=== PATIENT | female | born 1940 | race Caucasian/White ===

== ENCOUNTER → 2018-02-11 08:41 | Outpatient (CLI) | payer MEDICARE, SELFPAY ==
[2018-02-11 09:52] LABS: Absolute Lymphocyte Count 1.46 X10^3/ul (0.83-4.51); Absolute Neutrophil Count 2.8 X10^3/uL (2.0-7.7); Basophil# 0.04 X10^3/uL; Basophil% 0.7 % (0-1); Eosinophil# 0.19 X10^3/uL; Eosinophils% 3.6 % (0-5); Hematocrit 36.9 % (37-47); Lymphocyte # 1.46 X10^3/ul (4.0); Lymphocyte % 27.3 % (19-41); Mean Corp Hgb Conc 32.5 g/gl (32-36); Mean Corpuscular Volume 89.1 fL (81-99); Mean Platelet Vol. 10.3 fl (6.2-12.0); Neutrophil # 2.81 X10^3/uL (2.7-7.7); Neutrophil % 52.7 % (47-70); POSITIVE COUNT NO; POSITIVE DIFFERENTIAL NO; POSITIVE MORPHOLOGY NO; Platelet Count 272 K/mm3 (150-450); RBC Distribution Width CV 13.2 % (11.6-14.6); RBC Distribution Width SD 42.2 fl (35.1-43.9); Red Blood Count 4.14 M/mm3 (4.2-5.4); White Blood Count 5.3 K/mm3 (4.4-11.0)
[2018-02-11 10:02] LABS: ALB/GLOB Ratio 0.6 RATIO (0.9-2.4); AST(SGOT) 18 U/L (15-37); Alanine Aminotransfer ALT/SGPT 21 U/L (13-56); Albumin, Serum 3.2 g/dL (3.2-5.0); Alkaline Phosphatase 89 U/L (45-117); Anion Gap 7 (5-15); BUN 16 mg/dL (7-18); BUN/Creat Ratio 11.6 RATIO (10-20); Calcium,Total 9.2 mg/dL (8.5-10.1); Chloride 103 mmol/L (98-107); Creatinine, Serum 1.38 mg/dL (0.55-1.02); EST Glomerular Filtration Rate 39 mL/min (>60); Est Glom Filt Rate - Afr Amer 48 mL/min (>60); Globulin 5.2 g/dL (2.2-4.2); Glucose 126 mg/dL (74-106); Potassium 4.2 mmol/L (3.5-5.1); Protein, Total 8.4 g/dL (6.4-8.2); Sodium Level 137 mmol/L (136-145)
== END ==
PROVIDERS: Family Provider Student in an Organized Health Care Education/Training Program; PCP Student in an Organized Health Care Education/Training Program; Visit Provider Internal Medicine Rheumatology
DX: L40.59 Other psoriatic arthropathy (principal); Z79.899 Other long term (current) drug therapy; M79.7 Fibromyalgia; L40.8 Other psoriasis; M35.00 Sjogren syndrome, unspecified; M15.9 Polyosteoarthritis, unspecified; M17.0 Bilateral primary osteoarthritis of knee; H35.363 Drusen (degenerative) of macula, bilateral; I12.9 Hypertensive chronic kidney disease with stage 1 through stage 4 chronic kidney disease, or unspecified chronic kidney disease; N18.9 Chronic kidney disease, unspecified
CPT/HCPCS: 36415; 80053; 85025

== ENCOUNTER → 2018-08-16 07:41 | Outpatient (CLI) | payer MEDICARE, SELFPAY ==
[2018-08-16 10:57] LABS: ALB/GLOB Ratio 0.7 RATIO (0.9-2.4); AST(SGOT) 24 U/L (15-37); Alanine Aminotransfer ALT/SGPT 24 U/L (13-56); Albumin, Serum 3.4 g/dL (3.2-5.0); Alkaline Phosphatase 102 U/L (45-117); Anion Gap 7 (5-15); BUN 17 mg/dL (7-18); BUN/Creat Ratio 13.9 RATIO (10-20); Chloride 103 mmol/L (98-107); Creatinine, Serum 1.22 mg/dL (0.55-1.02); EST Glomerular Filtration Rate 45 mL/min (>60); Est Glom Filt Rate - Afr Amer 55 mL/min (>60); Globulin 4.7 g/dL (2.2-4.2); Glucose 114 mg/dL (74-106); Potassium 4.1 mmol/L (3.5-5.1); Protein, Total 8.1 g/dL (6.4-8.2); Sodium Level 140 mmol/L (136-145)
[2018-08-16 12:45] LABS: Absolute Lymphocyte Count 1.26 X10^3/ul (0.83-4.51); Absolute Neutrophil Count 2.3 X10^3/uL (2.0-7.7); Basophil# 0.05 X10^3/uL; Basophil% 1.1 % (0-1); Eosinophil# 0.28 X10^3/uL; Eosinophils% 6.2 % (0-5); Hematocrit 40.1 % (37-47); Hemoglobin 12.7 g/dl (12.0-15.0); Lymphocyte # 1.26 X10^3/ul (4.0); Lymphocyte % 27.8 % (19-41); Mean Corp Hgb Conc 31.7 g/gl (32-36); Mean Corpuscular Hgb 29.1 pg (27.0-32.0); Mean Corpuscular Volume 91.8 fL (81-99); Mean Platelet Vol. 12.5 fl (6.2-12.0); Monocyte# 0.63 X10^3/uL; Monocyte% 13.9 % (0-10); Neutrophil % 50.6 % (47-70); Platelet Count 107 K/mm3 (150-450); RBC Distribution Width CV 13.5 % (11.6-14.6); RBC Distribution Width SD 44.9 fl (35.1-43.9); Red Blood Count 4.37 M/mm3 (4.2-5.4); White Blood Count 4.5 K/mm3 (4.4-11.0)
[2018-08-16 12:48] LABS: POSITIVE COUNT NO; POSITIVE DIFFERENTIAL NO; POSITIVE MORPHOLOGY NO
== END ==
PROVIDERS: Family Provider Student in an Organized Health Care Education/Training Program; PCP Student in an Organized Health Care Education/Training Program; Referring Provider Internal Medicine Rheumatology; Visit Provider Internal Medicine Rheumatology
DX: L40.59 Other psoriatic arthropathy (principal); M35.00 Sjogren syndrome, unspecified; M17.0 Bilateral primary osteoarthritis of knee; H35.363 Drusen (degenerative) of macula, bilateral; I12.9 Hypertensive chronic kidney disease with stage 1 through stage 4 chronic kidney disease, or unspecified chronic kidney disease; N18.9 Chronic kidney disease, unspecified; M79.7 Fibromyalgia
CPT/HCPCS: 36415; 80053; 85025

== ENCOUNTER → 2019-02-07 10:12 | Outpatient (CLI) | payer MEDICARE, SELFPAY ==
[2017-07-08 11:11] VITALS: BMI 30.9
[2019-02-07 12:27] LABS: Absolute Lymphocyte Count 1.18 X10^3/ul (0.83-4.51); Absolute Neutrophil Count 2.2 X10^3/uL (2.0-7.7); Basophil# 0.05 X10^3/uL; Basophil% 1.2 % (0-1); Eosinophil# 0.19 X10^3/uL; Eosinophils% 4.4 % (0-5); Hematocrit 40.3 % (37-47); Lymphocyte # 1.18 X10^3/ul (4.0); Lymphocyte % 27.3 % (19-41); Mean Corp Hgb Conc 32.3 g/gl (32-36); Mean Corpuscular Hgb 28.9 pg (27.0-32.0); Mean Corpuscular Volume 89.6 fL (81-99); Mean Platelet Vol. 11.6 fl (6.2-12.0); Monocyte# 0.64 X10^3/uL; Monocyte% 14.8 % (0-10); Neutrophil # 2.23 X10^3/uL (2.7-7.7); Neutrophil % 51.4 % (47-70); Platelet Count 153 K/mm3 (150-450); RBC Distribution Width CV 13.4 % (11.6-14.6); RBC Distribution Width SD 43.5 fl (35.1-43.9); White Blood Count 4.3 K/mm3 (4.4-11.0)
[2019-02-07 12:31] LABS: POSITIVE COUNT NO; POSITIVE DIFFERENTIAL NO; POSITIVE MORPHOLOGY NO
[2019-02-07 12:52] LABS: ALB/GLOB Ratio 0.8 RATIO (0.9-2.4); AST(SGOT) 24 U/L (15-37); Alanine Aminotransfer ALT/SGPT 24 U/L (13-56); Albumin, Serum 3.6 g/dL (3.2-5.0); Alkaline Phosphatase 104 U/L (45-117); Anion Gap 3 (5-15); BUN 17 mg/dL (7-18); BUN/Creat Ratio 13.9 RATIO (10-20); Calcium,Total 8.8 mg/dL (8.5-10.1); Chloride 107 mmol/L (98-107); Creatinine, Serum 1.22 mg/dL (0.55-1.02); EST Glomerular Filtration Rate 45 mL/min (>60); Est Glom Filt Rate - Afr Amer 55 mL/min (>60); Globulin 4.5 g/dL (2.2-4.2); Glucose 103 mg/dL (74-106); Potassium 3.8 mmol/L (3.5-5.1); Protein, Total 8.1 g/dL (6.4-8.2); Sodium Level 138 mmol/L (136-145)
== END ==
PROVIDERS: Family Provider Student in an Organized Health Care Education/Training Program; PCP Student in an Organized Health Care Education/Training Program; Referring Provider Internal Medicine Rheumatology; Visit Provider Internal Medicine Rheumatology
DX: L40.59 Other psoriatic arthropathy (principal); I12.9 Hypertensive chronic kidney disease with stage 1 through stage 4 chronic kidney disease, or unspecified chronic kidney disease; N18.9 Chronic kidney disease, unspecified; M35.00 Sjogren syndrome, unspecified; M79.7 Fibromyalgia; M17.0 Bilateral primary osteoarthritis of knee; H35.363 Drusen (degenerative) of macula, bilateral
CPT/HCPCS: 36415; 80053; 85025

== ENCOUNTER → 2019-07-25 09:49 | Outpatient (CLI) | payer MEDICARE, SELFPAY ==
[2017-07-08 11:11] VITALS: BMI 30.9
[2019-07-25 12:39] LABS: Absolute Lymphocyte Count 1.25 X10^3/uL (0.83-4.51); Absolute Neutrophil Count 2.3 X10^3/uL (2.0-7.7); Basophil# 0.05 X10^3/uL; Basophil% 1.2 % (0-1); Eosinophil# 0.15 X10^3/uL; Eosinophils% 3.6 % (0-5); Hematocrit 41.4 % (37-47); Hemoglobin 13.2 g/dL (12.0-15.0); Lymphocyte # 1.25 X10^3/ul (4.0); Lymphocyte % 29.9 % (19-41); Mean Corp Hgb Conc 31.9 g/dL (32-36); Mean Corpuscular Hgb 30.1 pg (27.0-32.0); Mean Corpuscular Volume 94.3 fL (81-99); Mean Platelet Vol. 11.5 fl (6.2-12.0); Monocyte# 0.42 X10^3/uL; NRBC Flagged by Analyzer 0 % (0-5); Neutrophil # 2.26 X10^3/uL (2.7-7.7); Neutrophil % 54.1 % (47-70); Platelet Count 143 K/mm3 (150-450); RBC Distribution Width CV 12.9 % (11.6-14.6); RBC Distribution Width SD 44.6 fl (35.1-43.9); Red Blood Count 4.39 M/mm3 (4.2-5.4); White Blood Count 4.2 K/mm3 (4.4-11.0)
[2019-07-25 12:46] LABS: ALB/GLOB Ratio 0.8 RATIO (0.9-2.4); AST(SGOT) 26 U/L (15-37); Alanine Aminotransfer ALT/SGPT 28 U/L (13-56); Albumin, Serum 3.5 g/dL (3.2-5.0); Alkaline Phosphatase 96 U/L (45-117); Anion Gap 6 (5-15); BUN 17 mg/dL (7-18); BUN/Creat Ratio 13.7 RATIO (10-20); Calcium,Total 8.8 mg/dL (8.5-10.1); Chloride 108 mmol/L (98-107); Creatinine, Serum 1.24 mg/dL (0.55-1.02); EST Glomerular Filtration Rate 44 mL/min (>60); Est Glom Filt Rate - Afr Amer 54 mL/min (>60); Globulin 4.6 g/dL (2.2-4.2); Glucose 96 mg/dL (74-106); Potassium 3.8 mmol/L (3.5-5.1); Protein, Total 8.1 g/dL (6.4-8.2); Sodium Level 141 mmol/L (136-145)
== END ==
PROVIDERS: Family Provider Student in an Organized Health Care Education/Training Program; PCP Student in an Organized Health Care Education/Training Program; Referring Provider Internal Medicine Rheumatology; Visit Provider Internal Medicine Rheumatology
DX: L40.59 Other psoriatic arthropathy (principal); I12.9 Hypertensive chronic kidney disease with stage 1 through stage 4 chronic kidney disease, or unspecified chronic kidney disease; N18.9 Chronic kidney disease, unspecified; M35.00 Sjogren syndrome, unspecified; M17.0 Bilateral primary osteoarthritis of knee; H35.363 Drusen (degenerative) of macula, bilateral; M79.7 Fibromyalgia
CPT/HCPCS: 36415; 80053; 85025

== ENCOUNTER → 2021-07-31 14:17 | Outpatient (CLI) | payer MEDICARE, SELFPAY ==
[2021-07-31 17:37] LABS: Absolute Lymphocyte Count 1.52 X10^3/uL (0.83-4.51); Absolute Neutrophil Count 3.2 X10^3/uL (2.0-7.7); Basophil# 0.07 X10^3/uL; Basophil% 1.3 % (0-1); Eosinophils% 3.6 % (0-5); Hematocrit 40.5 % (37-47); Hemoglobin 13.1 g/dL (12.0-15.0); Lymphocyte # 1.52 X10^3/ul (0.83-4.51); Lymphocyte % 27.2 % (19-41); Mean Corp Hgb Conc 32.3 g/dL (32-36); Mean Corpuscular Hgb 29.8 pg (27.0-32.0); Mean Corpuscular Volume 92.3 fL (81-99); Mean Platelet Vol. 10.5 fl (6.2-12.0); Monocyte# 0.57 X10^3/uL; Monocyte% 10.2 % (0-10); NRBC Flagged by Analyzer 0 % (0-5); Neutrophil # 3.18 X10^3/uL (2.7-7.7); Platelet Count 212 K/mm3 (150-450); RBC Distribution Width CV 13.5 % (11.6-14.6); RBC Distribution Width SD 45.2 fl (35.1-43.9); Red Blood Count 4.39 M/mm3 (4.2-5.4); White Blood Count 5.6 K/mm3 (4.4-11.0)
[2021-07-31 17:49] LABS: Erythrocyte Sedimentation Rate 14 mm/hr (0-30)
[2021-07-31 18:16] LABS: ALB/GLOB Ratio 0.7 RATIO (0.9-2.4); AST(SGOT) 24 U/L (15-37); Alanine Aminotransfer ALT/SGPT 29 U/L (13-56); Albumin, Serum 3.4 g/dL (3.2-5.0); Alkaline Phosphatase 124 U/L (45-117); Anion Gap 8 (5-15); BUN 24 mg/dL (7-18); BUN/Creat Ratio 18.5 RATIO (10-20); CRP < 2.90 mg/L (0.0-3.0); Calcium,Total 9.4 mg/dL (8.5-10.1); Chloride 105 mmol/L (98-107); EST Glomerular Filtration Rate 42 mL/min (>60); Est Glom Filt Rate - Afr Amer 50 mL/min (>60); Globulin 4.7 g/dL (2.2-4.2); Glucose 109 mg/dL (74-106); Potassium 3.6 mmol/L (3.5-5.1); Protein, Total 8.1 g/dL (6.4-8.2); Sodium Level 140 mmol/L (136-145)
== END ==
PROVIDERS: PCP Student in an Organized Health Care Education/Training Program; Referring Provider Internal Medicine Rheumatology; Visit Provider Internal Medicine Rheumatology
DX: L40.59 Other psoriatic arthropathy (principal); M79.7 Fibromyalgia; M35.00 Sjogren syndrome, unspecified; M17.0 Bilateral primary osteoarthritis of knee; H35.363 Drusen (degenerative) of macula, bilateral; N18.9 Chronic kidney disease, unspecified; I10 Essential (primary) hypertension; I12.9 Hypertensive chronic kidney disease with stage 1 through stage 4 chronic kidney disease, or unspecified chronic kidney disease
CPT/HCPCS: 36415; 80053; 85025; 85652; 86140

== ENCOUNTER → 2022-02-03 | Outpatient (CLI) | payer MEDICARE, SELFPAY ==
[2022-02-03 12:11] LABS: Absolute Lymphocyte Count 1.27 X10^3/uL (0.83-4.51); Absolute Neutrophil Count 2.9 X10^3/uL (2.0-7.7); Basophil# 0.05 X10^3/uL; Eosinophil# 0.14 X10^3/uL; Eosinophils% 2.9 % (0-5); Hemoglobin 12.1 g/dL (12.0-15.0); Lymphocyte # 1.27 X10^3/ul (0.83-4.51); Lymphocyte % 26.4 % (19-41); Mean Corpuscular Hgb 28.6 pg (27.0-32.0); Mean Corpuscular Volume 92.2 fL (81-99); Mean Platelet Vol. 10.7 fl (6.2-12.0); Monocyte# 0.44 X10^3/uL; Monocyte% 9.1 % (0-10); NRBC Flagged by Analyzer 0 % (0-5); Neutrophil # 2.88 X10^3/uL (2.7-7.7); Platelet Count 179 K/mm3 (150-450); RBC Distribution Width CV 13.7 % (11.6-14.6); RBC Distribution Width SD 46.3 fl (35.1-43.9); Red Blood Count 4.23 M/mm3 (4.2-5.4); White Blood Count 4.8 K/mm3 (4.4-11.0)
[2022-02-03 13:20] LABS: ALB/GLOB Ratio 0.8 RATIO (0.9-2.4); AST(SGOT) 20 U/L (15-37); Alanine Aminotransfer ALT/SGPT 23 U/L (13-56); Albumin, Serum 3.3 g/dL (3.2-5.0); Alkaline Phosphatase 141 U/L (45-117); Anion Gap 7 (5-15); BUN 15 mg/dL (7-18); Calcium,Total 9.1 mg/dL (8.5-10.1); Chloride 107 mmol/L (98-107); Creatinine, Serum 1.07 mg/dL (0.55-1.02); EST Glomerular Filtration Rate 52 mL/min (>60); Est Glom Filt Rate - Afr Amer 63 mL/min (>60); Globulin 4.2 g/dL (2.2-4.2); Glucose 117 mg/dL (74-106); Potassium 3.8 mmol/L (3.5-5.1); Protein, Total 7.5 g/dL (6.4-8.2); Sodium Level 140 mmol/L (136-145)
== END | disposition home or self-care (01) ==
LOC: MTLAB 10:08
PROVIDERS: PCP Student in an Organized Health Care Education/Training Program; Referring Provider Internal Medicine Rheumatology; Visit Provider Internal Medicine Rheumatology
DX: L40.59 Other psoriatic arthropathy (principal); M35.00 Sjogren syndrome, unspecified; M79.7 Fibromyalgia; L40.8 Other psoriasis; M17.0 Bilateral primary osteoarthritis of knee; H35.363 Drusen (degenerative) of macula, bilateral; N18.9 Chronic kidney disease, unspecified; I10 Essential (primary) hypertension; K57.30 Diverticulosis of large intestine without perforation or abscess without bleeding; E78.5 Hyperlipidemia, unspecified
CPT/HCPCS: 36415; 80053; 85025

== ENCOUNTER → 2022-05-28 | Outpatient (CLI) | payer MEDICARE, SELFPAY ==
[2022-05-28 12:41] LABS: Absolute Lymphocyte Count 1.29 X10^3/uL (0.83-4.51); Absolute Neutrophil Count 2.4 X10^3/uL (2.0-7.7); Basophil# 0.05 X10^3/uL; Basophil% 1.1 % (0-1); Eosinophil# 0.11 X10^3/uL; Eosinophils% 2.4 % (0-5); Hematocrit 39.5 % (37-47); Hemoglobin 12.8 g/dL (12.0-15.0); Lymphocyte # 1.29 X10^3/ul (0.83-4.51); Lymphocyte % 28.7 % (19-41); Mean Corp Hgb Conc 32.4 g/dL (32-36); Mean Corpuscular Hgb 29.7 pg (27.0-32.0); Mean Corpuscular Volume 91.6 fL (81-99); Mean Platelet Vol. 10.9 fl (6.2-12.0); Monocyte# 0.62 X10^3/uL; Monocyte% 13.8 % (0-10); NRBC Flagged by Analyzer 0 % (0-5); Neutrophil # 2.39 X10^3/uL (2.7-7.7); Neutrophil % 53.3 % (47-70); Platelet Count 152 K/mm3 (150-450); RBC Distribution Width CV 13.4 % (11.6-14.6); RBC Distribution Width SD 45.6 fl (35.1-43.9); Red Blood Count 4.31 M/mm3 (4.2-5.4); White Blood Count 4.5 K/mm3 (4.4-11.0)
[2022-05-28 13:31] LABS: ALB/GLOB Ratio 0.8 RATIO (0.9-2.4); AST(SGOT) 25 U/L (15-37); Alanine Aminotransfer ALT/SGPT 30 U/L (13-56); Albumin, Serum 3.3 g/dL (3.2-5.0); Alkaline Phosphatase 129 U/L (45-117); Anion Gap 7 (5-15); BUN 12 mg/dL (7-18); BUN/Creat Ratio 10.9 RATIO (10-20); Calcium,Total 9.3 mg/dL (8.5-10.1); Chloride 107 mmol/L (98-107); EST Glomerular Filtration Rate 50 mL/min (>60); Est Glom Filt Rate - Afr Amer 61 mL/min (>60); Globulin 4.3 g/dL (2.2-4.2); Glucose 115 mg/dL (74-106); Potassium 4.2 mmol/L (3.5-5.1); Protein, Total 7.6 g/dL (6.4-8.2); Sodium Level 140 mmol/L (136-145)
== END | disposition home or self-care (01) ==
PROVIDERS: PCP Student in an Organized Health Care Education/Training Program; Referring Provider Internal Medicine Rheumatology; Visit Provider Internal Medicine Rheumatology
DX: L40.59 Other psoriatic arthropathy (principal); M35.00 Sjogren syndrome, unspecified; M79.7 Fibromyalgia; L40.8 Other psoriasis; M17.0 Bilateral primary osteoarthritis of knee; H35.363 Drusen (degenerative) of macula, bilateral; N18.9 Chronic kidney disease, unspecified; I10 Essential (primary) hypertension; K57.30 Diverticulosis of large intestine without perforation or abscess without bleeding; E78.5 Hyperlipidemia, unspecified
CPT/HCPCS: 36415; 80053; 85025

== ENCOUNTER → 2022-11-13 | Outpatient (CLI) | payer MEDICARE, SELFPAY ==
[2022-11-13 10:03] LABS: Absolute Lymphocyte Count 2.43 X10^3/uL (0.83-4.51); Absolute Neutrophil Count 6.3 X10^3/uL (2.0-7.7); Basophil# 0.06 X10^3/uL; Basophil% 0.6 % (0-1); Eosinophil# 0.12 X10^3/uL; Eosinophils% 1.2 % (0-5); Hematocrit 44.3 % (37-47); Hemoglobin 13.8 g/dL (12.0-15.0); Lymphocyte # 2.43 X10^3/ul (0.83-4.51); Lymphocyte % 24.5 % (19-41); Mean Corp Hgb Conc 31.2 g/dL (32-36); Mean Corpuscular Hgb 29.1 pg (27.0-32.0); Mean Corpuscular Volume 93.5 fL (81-99); Mean Platelet Vol. 10.7 fl (6.2-12.0); Monocyte# 0.89 X10^3/uL; NRBC Flagged by Analyzer 0 % (0-5); Neutrophil # 6.31 X10^3/uL (2.7-7.7); Neutrophil % 63.8 % (47-70); Platelet Count 165 K/mm3 (150-450); RBC Distribution Width SD 48.3 fl (35.1-43.9); Red Blood Count 4.74 M/mm3 (4.2-5.4); White Blood Count 9.9 K/mm3 (4.4-11.0)
[2022-11-13 10:29] LABS: ALB/GLOB Ratio 0.8 RATIO (0.9-2.4); AST(SGOT) 35 U/L (15-37); Alanine Aminotransfer ALT/SGPT 68 U/L (13-56); Albumin, Serum 3.5 g/dL (3.2-5.0); Alkaline Phosphatase 124 U/L (45-117); Anion Gap 7 (5-15); BUN 20 mg/dL (7-18); BUN/Creat Ratio 19.2 RATIO (10-20); Chloride 107 mmol/L (98-107); Creatinine, Serum 1.04 mg/dL (0.55-1.02); EST Glomerular Filtration Rate 54 mL/min (>60); Est Glom Filt Rate - Afr Amer 65 mL/min (>60); Globulin 4.4 g/dL (2.2-4.2); Glucose 93 mg/dL (74-106); Potassium 3.3 mmol/L (3.5-5.1); Protein, Total 7.9 g/dL (6.4-8.2); Sodium Level 142 mmol/L (136-145)
== END | disposition home or self-care (01) ==
PROVIDERS: PCP Student in an Organized Health Care Education/Training Program; Referring Provider Internal Medicine Rheumatology; Visit Provider Internal Medicine Rheumatology
DX: L40.59 Other psoriatic arthropathy (principal); M35.00 Sjogren syndrome, unspecified; L40.8 Other psoriasis; M17.0 Bilateral primary osteoarthritis of knee; H35.363 Drusen (degenerative) of macula, bilateral; N18.9 Chronic kidney disease, unspecified
CPT/HCPCS: 36415; 80053; 85025

== ENCOUNTER → 2022-12-15 | Outpatient (CLI) | payer MEDICARE, SELFPAY ==
--- NOTE | 2022-12-15 09:46 | US_ITS ---
STUDY: ABDOMINAL ULTRASOUND - RIGHT UPPER QUADRANT REASON FOR VISIT: Female, 82 years old abnormal LFTs TECHNIQUE: Ultrasound evaluation of the right upper quadrant was performed with real-time and static hughes-scale imaging. TECHNICAL QUALITY: Adequate. COMPARISON: None. FINDINGS: Liver: The liver measures 15.1 cm. There is increased echogenicity consistent with fatty infiltration. The bile ducts are within normal limits. There is hepatic color flow. The direction of portal flow is hepatopetal. There is no demonstrated mass lesion. Gallbladder: The patient is status post cholecystectomy Common Bile Duct (C.B.D.): The common bile duct measures 4.8 mm. Pancreas: Normal size of the head, body and tail of the pancreas. There is normal echogenicity of the pancreas. There is no demonstrated pancreatic mass or cyst. Right Kidney: Normal size of the right kidney. The right kidney measures 10.3 x 4.4 x 4.2 cm. Normal renal cortex. The right cortex measures 1.0 cm. There is a simple exophytic cyst measuring 1.7 cm. There is no right hydronephrosis. US/Liver IMPRESSION: Fatty liver, no discrete lesion Simple right renal cyst, no specific follow-up needed Electronically Signed: Oli Vincent MD at 11:40 EST ,
== END | disposition home or self-care (01) ==
LOC: US 09:45
PROVIDERS: PCP Student in an Organized Health Care Education/Training Program; Referring Provider Internal Medicine Rheumatology; Visit Provider Internal Medicine Rheumatology
DX: M79.7 Fibromyalgia (principal); L40.59 Other psoriatic arthropathy; Z79.899 Other long term (current) drug therapy
CPT/HCPCS: 76705

== ENCOUNTER → 2023-02-04 | Outpatient (CLI) | payer MEDICARE, SELFPAY ==
[2023-02-04 10:38] LABS: Absolute Lymphocyte Count 1.69 X10^3/uL (0.83-4.51); Absolute Neutrophil Count 2.5 X10^3/uL (2.0-7.7); Basophil# 0.06 X10^3/uL; Basophil% 1.2 % (0-1); Eosinophil# 0.17 X10^3/uL; Eosinophils% 3.3 % (0-5); Hematocrit 41.2 % (37-47); Hemoglobin 13.5 g/dL (12.0-15.0); Lymphocyte # 1.69 X10^3/ul (0.83-4.51); Lymphocyte % 33.2 % (19-41); Mean Corp Hgb Conc 32.8 g/dL (32-36); Mean Corpuscular Hgb 30.3 pg (27.0-32.0); Mean Corpuscular Volume 92.6 fL (81-99); Mean Platelet Vol. 11.4 fl (6.2-12.0); Monocyte# 0.63 X10^3/uL; Monocyte% 12.4 % (0-10); NRBC Flagged by Analyzer 0 % (0-5); Neutrophil # 2.53 X10^3/uL (2.7-7.7); Neutrophil % 49.7 % (47-70); Platelet Count 136 K/mm3 (150-450); RBC Distribution Width SD 43.8 fl (35.1-43.9); Red Blood Count 4.45 M/mm3 (4.2-5.4); White Blood Count 5.1 K/mm3 (4.4-11.0)
[2023-02-04 10:57] LABS: ALB/GLOB Ratio 0.8 RATIO (0.9-2.4); AST(SGOT) 31 U/L (15-37); Alanine Aminotransfer ALT/SGPT 34 U/L (13-56); Albumin, Serum 3.5 g/dL (3.2-5.0); Alkaline Phosphatase 136 U/L (45-117); Anion Gap 4 (5-15); BUN 12 mg/dL (7-18); BUN/Creat Ratio 12.1 RATIO (10-20); Calcium,Total 9.3 mg/dL (8.5-10.1); Chloride 105 mmol/L (98-107); Creatinine, Serum 0.99 mg/dL (0.55-1.02); EST Glomerular Filtration Rate 57 mL/min (>60); Est Glom Filt Rate - Afr Amer 69 mL/min (>60); Globulin 4.6 g/dL (2.2-4.2); Glucose 123 mg/dL (74-106); Potassium 3.6 mmol/L (3.5-5.1); Protein, Total 8.1 g/dL (6.4-8.2); Sodium Level 137 mmol/L (136-145)
== END | disposition home or self-care (01) ==
LOC: MTLAB 07:56
PROVIDERS: PCP Student in an Organized Health Care Education/Training Program; Referring Provider Internal Medicine Rheumatology; Visit Provider Internal Medicine Rheumatology
DX: L40.59 Other psoriatic arthropathy (principal); M79.7 Fibromyalgia; Z79.899 Other long term (current) drug therapy
CPT/HCPCS: 36415; 80053; 85025

== ENCOUNTER → 2023-08-10 | Outpatient (CLI) | payer MEDICARE, SELFPAY ==
[2023-08-10 16:11] LABS: Absolute Lymphocyte Count 1.98 X10^3/uL (0.83-4.51); Absolute Neutrophil Count 3.6 X10^3/uL (2.0-7.7); Basophil# 0.06 X10^3/uL; Eosinophil# 0.15 X10^3/uL; Eosinophils% 2.4 % (0-5); Hemoglobin 12.5 g/dL (12.0-15.0); Lymphocyte # 1.98 X10^3/ul (0.83-4.51); Lymphocyte % 31.7 % (19-41); Mean Corp Hgb Conc 31.3 g/dL (32-36); Mean Corpuscular Hgb 29.3 pg (27.0-32.0); Mean Corpuscular Volume 93.9 fL (81-99); Mean Platelet Vol. 11.6 fl (6.2-12.0); Monocyte# 0.48 X10^3/uL; Monocyte% 7.7 % (0-10); NRBC Flagged by Analyzer 0 % (0-5); Neutrophil # 3.55 X10^3/uL (2.7-7.7); Neutrophil % 56.9 % (47-70); Platelet Count 145 K/mm3 (150-450); RBC Distribution Width CV 13.2 % (11.6-14.6); RBC Distribution Width SD 45.3 fl (35.1-43.9); Red Blood Count 4.26 M/mm3 (4.2-5.4); White Blood Count 6.2 K/mm3 (4.4-11.0)
[2023-08-10 16:53] LABS: ALB/GLOB Ratio 0.7 RATIO (0.9-2.4); AST(SGOT) 43 U/L (15-37); Alanine Aminotransfer ALT/SGPT 46 U/L (13-56); Albumin, Serum 3.4 g/dL (3.2-5.0); Alkaline Phosphatase 109 U/L (45-117); Anion Gap 4 (5-15); BUN 15 mg/dL (7-18); Calcium,Total 9.1 mg/dL (8.5-10.1); Chloride 107 mmol/L (98-107); Creatinine, Serum 1.07 mg/dL (0.55-1.02); EST Glomerular Filtration Rate 52 mL/min (>60); Est Glom Filt Rate - Afr Amer 63 mL/min (>60); Globulin 4.7 g/dL (2.2-4.2); Glucose 103 mg/dL (74-106); Potassium 3.9 mmol/L (3.5-5.1); Protein, Total 8.1 g/dL (6.4-8.2); Sodium Level 138 mmol/L (136-145); Uric Acid 4.9 mg/dL (2.6-6.0)
== END | disposition home or self-care (01) ==
LOC: MTLAB 11:47
PROVIDERS: PCP Student in an Organized Health Care Education/Training Program; Referring Provider Internal Medicine Rheumatology; Visit Provider Internal Medicine Rheumatology
DX: L40.59 Other psoriatic arthropathy (principal); M79.7 Fibromyalgia; Z79.899 Other long term (current) drug therapy
CPT/HCPCS: 36415; 80053; 84550; 85025

== ENCOUNTER → 2024-01-04 | Outpatient (CLI) | payer MEDICARE, SELFPAY ==
[2024-01-04 12:40] LABS: Absolute Lymphocyte Count 1.99 X10^3/uL (0.83-4.51); Absolute Neutrophil Count 2.6 X10^3/uL (2.0-7.7); Basophil# 0.04 X10^3/uL; Basophil% 0.8 % (0-1); Eosinophil# 0.13 X10^3/uL; Eosinophils% 2.5 % (0-5); Hematocrit 37.9 % (37-47); Hemoglobin 12.3 g/dL (12.0-15.0); Lymphocyte # 1.99 X10^3/ul (0.83-4.51); Lymphocyte % 37.9 % (19-41); Mean Corp Hgb Conc 32.5 g/dL (32-36); Mean Corpuscular Hgb 30.4 pg (27.0-32.0); Mean Corpuscular Volume 93.8 fL (81-99); Mean Platelet Vol. 10.6 fl (6.2-12.0); Monocyte# 0.45 X10^3/uL; Monocyte% 8.6 % (0-10); NRBC Flagged by Analyzer 0 % (0-5); Neutrophil # 2.62 X10^3/uL (2.7-7.7); Neutrophil % 49.8 % (47-70); Platelet Count 141 K/mm3 (150-450); RBC Distribution Width CV 13.5 % (11.6-14.6); RBC Distribution Width SD 46.3 fl (35.1-43.9); Red Blood Count 4.04 M/mm3 (4.2-5.4); White Blood Count 5.3 K/mm3 (4.4-11.0)
[2024-01-04 13:19] LABS: ALB/GLOB Ratio 0.7 RATIO (0.9-2.4); AST(SGOT) 43 U/L (15-37); Alanine Aminotransfer ALT/SGPT 45 U/L (13-56); Albumin, Serum 3.4 g/dL (3.2-5.0); Alkaline Phosphatase 101 U/L (45-117); Anion Gap 6 (5-15); BUN 16 mg/dL (7-18); BUN/Creat Ratio 15.4 RATIO (10-20); Calcium,Total 9.1 mg/dL (8.5-10.1); Chloride 106 mmol/L (98-107); Creatinine, Serum 1.04 mg/dL (0.55-1.02); EST Glomerular Filtration Rate 54 mL/min (>60); Est Glom Filt Rate - Afr Amer 65 mL/min (>60); Globulin 4.6 g/dL (2.2-4.2); Glucose 124 mg/dL (74-106); Potassium 4.3 mmol/L (3.5-5.1); Sodium Level 141 mmol/L (136-145); Uric Acid 5.3 mg/dL (2.6-6.0)
== END | disposition home or self-care (01) ==
PROVIDERS: PCP Student in an Organized Health Care Education/Training Program; Referring Provider Internal Medicine Rheumatology; Visit Provider Internal Medicine Rheumatology
DX: L40.59 Other psoriatic arthropathy (principal); M79.7 Fibromyalgia; Z79.899 Other long term (current) drug therapy
CPT/HCPCS: 36415; 80053; 84550; 85025

== ENCOUNTER → 2024-07-04 | Outpatient (CLI) | payer MEDICARE, SELFPAY ==
[2024-07-04 15:35] LABS: Absolute Lymphocyte Count 2.13 X10^3/uL (0.83-4.51); Absolute Neutrophil Count 4.3 X10^3/uL (2.0-7.7); Basophil# 0.07 X10^3/uL; Basophil% 0.9 % (0-1); Eosinophil# 0.18 X10^3/uL; Eosinophils% 2.4 % (0-5); Hematocrit 39.9 % (37-47); Hemoglobin 12.6 g/dL (12.0-15.0); Lymphocyte # 2.13 X10^3/ul (0.83-4.51); Lymphocyte % 28.7 % (19-41); Mean Corp Hgb Conc 31.6 g/dL (32-36); Mean Corpuscular Hgb 29.2 pg (27.0-32.0); Mean Corpuscular Volume 92.6 fL (81-99); Mean Platelet Vol. 11.8 fl (6.2-12.0); Monocyte# 0.71 X10^3/uL; Monocyte% 9.6 % (0-10); NRBC Flagged by Analyzer 0 % (0-5); Neutrophil # 4.31 X10^3/uL (2.7-7.7); Neutrophil % 58.1 % (47-70); Platelet Count 147 K/mm3 (150-450); RBC Distribution Width CV 13.1 % (11.6-14.6); RBC Distribution Width SD 44.6 fl (35.1-43.9); Red Blood Count 4.31 M/mm3 (4.2-5.4); White Blood Count 7.4 K/mm3 (4.4-11.0)
[2024-07-04 15:52] LABS: ALB/GLOB Ratio 0.7 RATIO (0.9-2.4); AST(SGOT) 37 U/L (15-37); Alanine Aminotransfer ALT/SGPT 34 U/L (13-56); Albumin, Serum 3.4 g/dL (3.2-5.0); Alkaline Phosphatase 101 U/L (45-117); Anion Gap 8 (5-15); BUN 16 mg/dL (7-18); BUN/Creat Ratio 15.2 RATIO (10-20); Calcium,Total 9.8 mg/dL (8.5-10.1); Chloride 106 mmol/L (98-107); Creatinine, Serum 1.05 mg/dL (0.55-1.02); EST Glomerular Filtration Rate 53 mL/min (>60); Est Glom Filt Rate - Afr Amer 64 mL/min (>60); Globulin 4.7 g/dL (2.2-4.2); Glucose 121 mg/dL (74-106); Potassium 3.7 mmol/L (3.5-5.1); Protein, Total 8.1 g/dL (6.4-8.2); Sodium Level 139 mmol/L (136-145); Uric Acid 5.3 mg/dL (2.6-6.0)
== END | disposition home or self-care (01) ==
PROVIDERS: PCP Student in an Organized Health Care Education/Training Program; Referring Provider Internal Medicine Rheumatology; Visit Provider Internal Medicine Rheumatology
DX: L40.59 Other psoriatic arthropathy (principal); M79.7 Fibromyalgia; Z79.899 Other long term (current) drug therapy
CPT/HCPCS: 36415; 80053; 84550; 85025

== ENCOUNTER 2024-10-12 12:48 | Inpatient (IN) | payer MEDICARE, SELFPAY ==
[2024-10-12] VITALS (18 sets, daily range): BP systolic 99–136; BP diastolic 60–115; PULSE 65–143; RESP 17–32; TEMP 36.6–38.1; O2SAT 91–99; BMI 28.0; BMI 27.1
--- NOTE | 2024-10-12 12:58 | RAD_ITS ---
INDICATION: cough EXAMINATION/TECHNIQUE: X-RAY - XR Chest 1 View COMPARISON: 07/08/2017. FINDINGS: The lungs are clear. Tortuous and calcified thoracic aorta. The heart is mildly enlarged. Prominence of the right hilum. No pleural effusion or pneumothorax. Degenerative changes of the thoracic spine. RAD/Chest 1 View (Portable) IMPRESSION: No acute radiographic abnormalities. Prominence of the right hilum could be secondary to lymphadenopathy versus pulmonary hypertension. Electronically Signed: Dimitri White MD at 14:34 EST ,
[2024-10-12 13:15] LABS: Absolute Lymphocyte Count 1.44 X10^3/uL (0.83-4.51); Absolute Neutrophil Count 5.1 X10^3/uL (2.0-7.7); Basophil# 0.03 X10^3/uL; Basophil% 0.4 % (0-1); Eosinophil# 0.09 X10^3/uL; Eosinophils% 1.2 % (0-5); Hematocrit 44.7 % (37-47); Hemoglobin 14.1 g/dL (12.0-15.0); Lymphocyte # 1.44 X10^3/ul (0.83-4.51); Lymphocyte % 19.6 % (19-41); Mean Corp Hgb Conc 31.5 g/dL (32-36); Mean Corpuscular Hgb 28.7 pg (27.0-32.0); Mean Platelet Vol. 11.3 fl (6.2-12.0); Monocyte# 0.64 X10^3/uL; Monocyte% 8.7 % (0-10); NRBC Flagged by Analyzer 0 % (0-5); Neutrophil # 5.08 X10^3/uL (2.7-7.7); Neutrophil % 69.4 % (47-70); Platelet Count 144 K/mm3 (150-450); RBC Distribution Width CV 15.8 % (11.6-14.6); RBC Distribution Width SD 53.3 fl (35.1-43.9); Red Blood Count 4.91 M/mm3 (4.2-5.4); White Blood Count 7.3 K/mm3 (4.4-11.0)
[2024-10-12 13:31] LABS: Anion Gap 5 (5-15); BUN 25 mg/dL (7-18); BUN/Creat Ratio 16.7 RATIO (10-20); Calcium,Total 8.9 mg/dL (8.5-10.1); Chloride 102 mmol/L (98-107); EST Glomerular Filtration Rate 35 mL/min (>60); Est Glom Filt Rate - Afr Amer 42 mL/min (>60); Estimated Creatinine Clearance 26.05 ml/min; Glucose 153 mg/dL (74-106); Potassium 4.1 mmol/L (3.5-5.1); Sodium Level 136 mmol/L (136-145); Troponin-I HS 33 pg/mL (3.0-54.0)
[2024-10-12] MEDS: Ipratropium/Albuterol Sulfate 3 ML AMPUL.NEB INHALATION (13:50)
[2024-10-12] MEDS: Albuterol 2.5 MG/3 ML VIAL.NEB. INHALATION (13:55)
--- NOTE | 2024-10-12 13:57 | EDS_ITS ---
HPI History of Present Illness Chief Complaint: Cough Informant: patient and family Narrative Narrative: 84-year-old female presenting to the emergency room with dyspnea and cough. Patient states she has developed a cough for the past 4 days with some sputum. Her daughter states she had a temperature of 102 this morning. They went to urgent care and was sent here out of concerns for pneumonia. History of rheumatoid arthritis chronic kidney disease hypertension. Patient is on allopurinol hydroxychloroquine. Patient has a lot of somatic complaints but when I ask her if they are any different over the past 4 days since she has been ill she states no. These include headache vomiting diarrhea fatigue myalgias. She denies any known lung conditions. She does not wear home oxygen. [facility] Medical History (Updated 10/12/24 @ 15:[address] Yuri Meier, DO) Hypertension Rheumatoid arthritis Chronic kidney disease, stage 3 Home Medications ?Medication ?Instructions ?Recorded ?Last Taken ?Type allopurinol 100 mg tablet 100 mg PO DAILYCM 11/12/14 Unknown History atenolol 50 mg tablet 50 mg PO BID 11/12/14 07/06/15 07:45 History furosemide 40 mg tablet 40 mg PO DAILY 11/12/14 Unknown History hydroxychloroquine 200 mg tablet 200 mg PO BIDCM 11/12/14 Unknown History potassium chloride 20 mEq 10 meq PO BID 11/12/14 Unknown History tablet,extended release(part/cryst) (Klor-Con M) Ranitidine [Zantac] 300 mg PO BID 06/29/15 07/06/15 07:45 History cholecalciferol (vitamin D3) 25 1,000 unit PO DAILY 06/29/15 Unknown History mcg (1,000 unit) tablet (Vitamin D3) clonidine HCl 0.2 mg tablet 0.2 mg PO BID 06/29/15 07/06/15 07:45 History dicyclomine 10 mg capsule 10 mg PO ACHS 06/29/15 Unknown History hydrocodone-acetaminophen 5-325mg 1 tab PO Q4H PRN PRN Pain 06/29/15 Unknown History 5mg-325mg losartan 100 mg tablet 100 mg PO DAILY 06/29/15 Unknown History ondansetron HCl 8 mg tablet 8 mg PO Q8H PRN PRN Nausea 06/29/15 Unknown History polyethylene glycol 3350 17 gram 17 g PO DAILY 06/29/15 Unknown History oral powder packet amlodipine 2.5 mg tablet 2.5 mg PO DAILY 10/12/24 Unknown History potassium chloride 10 mEq 10 meq PO BID 10/12/24 Unknown History tablet,extended release(part/cryst) (Klor-Con M) Allergy/AdvReac Type Severity Reaction Status Date / Time amlodipine besylate (From Allergy Other Verified 10/12/24 12:50 Norvasc) bumetanide (From Bumex) Allergy Other Verified 10/12/24 12:50 cephalexin monohydrate (From Allergy Hives Verified 10/12/24 12:50 Keflex) colchicine Allergy Hives Verified 10/12/24 12:50 hydrochlorothiazide Allergy Hives Verified 10/12/24 12:50 hydrocortisone acetate (From Allergy Other Verified 10/12/24 12:50 Hydrocortone Acetate) minoxidil Allergy Other Verified 10/12/24 12:50 naproxen Allergy Rash Verified 10/12/24 12:50 ofloxacin (From Floxin) Allergy Shortness Verified 10/12/24 12:50 of breath Penicillins (PCN) Allergy Rash Verified 10/12/24 12:50 Sulfa (Sulfonamide Allergy Rash Verified 10/12/24 12:50 Antibiotics) Social History Smoking Status: Never smoker ROS ROS ED Constitutional Constitutional ED: Reports fever(s); Denies chills or weight loss Eyes Eyes: Denies change in vision or diplopia ENT ENT ED: Reports rhinorrhea; Denies ear pain or sore throat Cardiovascular Cardiovascular: Denies chest pain, orthopnea, palpitations or racing heartbeat Respiratory/Chest Respiratory/Chest: Reports cough, dyspnea, dyspnea on exertion and sputum; Denies orthopnea Gastrointestinal Gastrointestinal: Reports diarrhea; Denies abdominal pain, nausea or vomiting Genitourinary Genitourinary ED: Denies dysuria, hematuria or urinary frequency Musculoskeletal Musculoskeletal: Denies arthralgias or myalgias Integumentary Denies abscess or rash Neurologic Neurologic: Denies headache(s) or weakness Psychiatric Psychiatric: Denies anxiety, depression, suicidal ideation or suicidal thoughts Endocrine Endocrinology: Denies polydipsia, polyphagia or polyuria Allergic/Immunologic Allergic/Immunologic ED: Denies mouth swelling, tongue swelling or urticaria EXAM Physical Exam Const Vital Signs: 10/12/24 12:49 10/12/24 12:50 10/12/24 13:13 Temperature 97.8 F 97.8 F Temperature Source Temporal Temporal Pulse Rate 102 H 108 H Respiratory Rate 20 H 17 Respiratory Effort Respiratory Depth Respiratory Pattern Blood Pressure 136/76 H 136/76 H Blood Pressure Mean 96 96 Pulse Ox 96 99 Oxygen Delivery Method Room Air Room Air Room Air 10/12/24 13:13 10/12/24 13:16 10/12/24 13:50 Temperature Temperature Source Pulse Rate 100 Respiratory Rate 17 Respiratory Effort Normal Non-Labored Respiratory Depth Normal Respiratory Pattern Normal Normal Blood Pressure Blood Pressure Mean Pulse Ox Oxygen Delivery Method Room Air Room Air 10/12/24 15:47 Temperature Temperature Source Pulse Rate 143 H Respiratory Rate 32 H Respiratory Effort Respiratory Depth Respiratory Pattern Blood Pressure 126/115 H Blood Pressure Mean 118 Pulse Ox 91 Oxygen Delivery Method Room Air Positive well nourished and well developed General Appearance ED: well developed and NAD HEENT Reports normocephalic, head/scalp atraumatic and moist mucous membranes Eyes PERRL and EOMs intact bilaterally Neck no lymphadenopathy, supple and no JVD Resp Resp Narrative: Patient appears tachypneic at rest. Auscultation: rhonchi throughout and wheezes expiratory wheezes and throughout Cardio regular rate, regular rhythm and no murmurs Rate: tachycardic GI normal to inspection, nondistended, normoactive bowel sounds and non-tender Palpation: soft Back/Spine no CVA tenderness and normal ROM Extremity normal to inspection General Extremety ED: Negative for edema General Extremity: Negative for edema Neuro oriented x3 and CN's II-XII intact bilaterally Sensorium / Orientation: alert Motor Exam: strength 5/5 throughout Psych mental status grossly normal Mood & Affect: Negative for depressed or tearful Skin no rashes or lesions noted and no wounds MDM MDM MDM Narrative Medical decision making narrative: Differential diagnosis includes cardiac dysrhythmia acute viral syndrome bronchitis pneumonia pleural effusion congestive heart failure electrolyte abnormalities dehydration White count 7.3 with a hemoglobin 14.1 platelet count is 144. BUN 25 creatinine 1.50 glucose is 153 troponin is 33. EKG shows atrial fibrillation with rapid ventricular response at a rate of 156 bpm. My independent interpretation of the chest x-ray is no acute process. Her pulse ox has been fairly consistent 90 to 92% on room air. She is not anticoagulated. A CTA of the chest was obtained which does not demonstrate an obvious infiltrate or pulmonary embolism. Patient received breathing treatments. She is RSV positive. She received metoprolol for rate control as she is on atenolol at home. Plan will be for admission History & Record Review Discussion w/independent historian: Patient and Family Lab Data Attestation: I reviewed the patient's lab results. Labs: Laboratory Results - last 24 hr 10/12/24 13:10 WBC 7.3 RBC 4.91 Hgb 14.1 Hct 44.7 MCV 91.0 MCH 28.7 MCHC 31.5 L RDW Std Deviation 53.3 H RDW Coeff of Akin 15.8 H Plt Count 144 L MPV 11.3 Immature Gran % (Auto) 0.700 Neut % (Auto) 69.4 Lymph % (Auto) 19.6 [place] % (Auto) 8.7 Eos % (Auto) 1.2 Baso % (Auto) 0.4 Absolute Neuts (auto) 5.1 Absolute Lymphs (auto) 1.44 Nucleated RBC % 0 Sodium 136 Potassium 4.1 Chloride 102 Carbon Dioxide 29.0 Anion Gap 5 BUN 25 H Creatinine 1.50 H Estim Creat Clear Calc 26.05 Est GFR (MDRD) Af Amer 42 L Est GFR (MDRD) Non-Af 35 L BUN/Creatinine Ratio 16.7 Glucose 153 H Calcium 8.9 Troponin I High Sens 33 Radiography Diagnostic Testing: Clinical Impression(s) from Imaging Studies Chest X-Ray 10/12/24 12:58 IMPRESSION: No acute radiographic abnormalities. Prominence of the right hilum could be secondary to lymphadenopathy versus pulmonary hypertension. Electronically Signed: Dimitri White MD at 14:34 EST , Chest CTA 10/12/24 14:37 IMPRESSION: No demonstrated pulmonary embolism or arterial dissection. Electronically Signed: Con Rutherford DO at 16:15 EST , Management Discussion w/another healthcare provider: Hospitalist (Dr Tubbs) Discharge Plan Dx/Rx/DC Orders Clinical Impression: RSV bronchiolitis, Atrial fibrillation with RVR, Acute dyspnea Disposition Disposition: Acute Care Hospital [facility]
--- NOTE | 2024-10-12 14:37 | CT_ITS ---
STUDY: CTA CHEST REASON FOR EXAM: Female, 84 years old. pulmonary embolism RADIATION DOSAGE (If Supplied By Facility): CTDIvol = ( 11.55 ) mGy, DLP = ( 345.95 ) mGycm TECHNIQUE: The examination was performed with the intravenous administration of IV 100mL Isovue-370. Post-processing of the angiographic images was performed, with multiplanar reformation and 3D reconstruction. The protocol utilizes one or more of the following dose reduction techniques: automated exposure control, adjustment of mA and/or kV according to patient size,and/or use of iterative reconstruction technique. COMPARISON: FINDINGS: Normal enhancement of the main pulmonary artery and right and left pulmonary arteries. Normal enhancement of the bilateral peripheral pulmonary arteries. There is no demonstrated pulmonary embolism. Normal thoracic aorta and visualized great vessels. There is no demonstrated aortic dissection. Normal heart and pericardium. Small nodes in the mediastinum. Normal hilar regions. Normal visualized trachea and bronchi. The lungs are well expanded. Normal pulmonary parenchyma. Normal pleura. Normal chest wall structures. Normal osseous structures. Normal visualized upper abdomen. CT/CTA Chest W/WO Contrast IMPRESSION: No demonstrated pulmonary embolism or arterial dissection. Electronically Signed: Con Rutherford DO at 16:15 EST Reading Location ID and State: [facility] / [place] Tel [phone], Service support ,
[2024-10-12] MEDS: Ibuprofen 600 MG Tablet PO (15:37)
[2024-10-12] MEDS: Metoprolol Tartrate 5 MG/5 ML Vial IV ×3 (15:38→16:09)
--- NOTE | 2024-10-12 15:42 | EKG12_ITS ---
Test Reason : TACHY Blood Pressure : */* mmHG Vent. Rate : 156 BPM Atrial Rate : * BPM P-R Int : * ms QRS Dur : 68 ms QT Int : 246 ms P-R-T Axes : * 21 12 degrees QTcB Int : 396 ms Critical Test Result: High HR Atrial fibrillation with rapid ventricular response with premature ventricular or aberrantly conducte d complexes ST & T wave abnormality, consider anterolateral ischemia Abnormal ECG Confirmed by ALEJANDRO CERVANTES, ACE ([id number]), school photograph editor ZAID CALLAHAN ([id number]) on 10/14/2024 6:25:25 AM Referred By: Yuri Meier Confirmed By: ACE ALLEN MD
--- NOTE | 2024-10-12 16:44 | HP.PCM.HOS_ITS ---
[facility] - General General Date of Admission: 10/12/24 Date of Service: 10/12/24 Chief Complaint: palpitations. [facility] Narrative KIRIT GARZA, is a 84 F who presents presents with a cough. Patient has had a cough for the past 4 days as well as some sputum production. Went to urgent care and was sent to the emergency room for evaluation. Patient was noted to be in atrial fibrillation with RVR and did receive a dose of IV metoprolol but still remained in A-fib with RVR. She was positive for RSV and did receive some bronchodilators. CTA of the chest was negative for any infiltrate nor pulmonary embolism. But given her ongoing A-fib, the hospitalist service was contacted for admission. [facility] Medical History Hypertension Rheumatoid arthritis Chronic kidney disease, stage 3 Home Medications ?Medication ?Instructions ?Recorded ?Last Taken ?Type allopurinol 100 mg tablet 100 mg PO DAILYCM 11/12/14 Unknown History atenolol 50 mg tablet 50 mg PO BID 11/12/14 07/06/15 07:45 History furosemide 40 mg tablet 40 mg PO DAILY 11/12/14 Unknown History hydroxychloroquine 200 mg tablet 200 mg PO BIDCM 11/12/14 Unknown History potassium chloride 20 mEq 10 meq PO BID 11/12/14 Unknown History tablet,extended release(part/cryst) (Klor-Con M) Ranitidine [Zantac] 300 mg PO BID 06/29/15 07/06/15 07:45 History cholecalciferol (vitamin D3) 25 1,000 unit PO DAILY 06/29/15 Unknown History mcg (1,000 unit) tablet (Vitamin D3) clonidine HCl 0.2 mg tablet 0.2 mg PO BID 06/29/15 07/06/15 07:45 History dicyclomine 10 mg capsule 10 mg PO ACHS 06/29/15 Unknown History hydrocodone-acetaminophen 5-325mg 1 tab PO Q4H PRN PRN Pain 06/29/15 Unknown History 5mg-325mg losartan 100 mg tablet 100 mg PO DAILY 06/29/15 Unknown History ondansetron HCl 8 mg tablet 8 mg PO Q8H PRN PRN Nausea 06/29/15 Unknown History polyethylene glycol 3350 17 gram 17 g PO DAILY 09/18/15 Unknown History oral powder packet amlodipine 2.5 mg tablet 2.5 mg PO DAILY 10/12/24 Unknown History potassium chloride 10 mEq 10 meq PO BID 10/12/24 Unknown History tablet,extended release(part/cryst) (Klor-Con M) Allergy/AdvReac Type Severity Reaction Status Date / Time amlodipine besylate (From Allergy Other Verified 10/12/24 12:50 Norvasc) bumetanide (From Bumex) Allergy Other Verified 10/12/24 12:50 cephalexin monohydrate (From Allergy Hives Verified 10/12/24 12:50 Keflex) colchicine Allergy Hives Verified 10/12/24 12:50 hydrochlorothiazide Allergy Hives Verified 10/12/24 12:50 hydrocortisone acetate (From Allergy Other Verified 10/12/24 12:50 Hydrocortone Acetate) minoxidil Allergy Other Verified 10/12/24 12:50 naproxen Allergy Rash Verified 10/12/24 12:50 ofloxacin (From Floxin) Allergy Shortness Verified 10/12/24 12:50 of breath Penicillins (PCN) Allergy Rash Verified 10/12/24 12:50 Sulfa (Sulfonamide Allergy Rash Verified 10/12/24 12:50 Antibiotics) Family History (Updated 10/12/24 @ 16:[address] Doug Tubbs DO) Son CAD (coronary artery disease) Diabetes Social History Smoking Status: Never smoker ROS ROS Narrative This, chest pain, palpitations, shortness of breath. No suicidal ideation. All review of systems were negative except as mentioned above in the history of present illness and the other review of systems. Vital Signs Vital Signs Vital Signs: 10/12/24 12:49 10/12/24 12:50 10/12/24 13:13 Temperature 36.6 C 36.6 C Temperature Source Temporal Temporal Pulse Rate 102 H 108 H Respiratory Rate 20 H 17 Respiratory Effort Respiratory Depth Respiratory Pattern Blood Pressure 136/76 H 136/76 H Blood Pressure Mean 96 96 Pulse Ox 96 99 Oxygen Delivery Method Room Air Room Air Room Air 10/12/24 13:13 10/12/24 13:16 10/12/24 13:50 Temperature Temperature Source Pulse Rate 100 Respiratory Rate 17 Respiratory Effort Normal Non-Labored Respiratory Depth Normal Respiratory Pattern Normal Normal Blood Pressure Blood Pressure Mean Pulse Ox Oxygen Delivery Method Room Air Room Air 10/12/24 15:47 10/12/24 16:00 Temperature 38.1 C H Temperature Source Oral Pulse Rate 143 H Respiratory Rate 32 H Respiratory Effort Respiratory Depth Respiratory Pattern Blood Pressure 126/115 H Blood Pressure Mean 118 Pulse Ox 91 Oxygen Delivery Method Room Air Weight Weight: 71.849 kg Body Mass Index (BMI) 28.0 Physical Exam Const alert and no apparent distress Constitutional Narrative: On room air. No respiratory distress. No conversational dyspnea. HEENT normocephalic and head/scalp atraumatic Eyes Eyes Narrative: Glasses. No icterus. Neck no lymphadenopathy and no JVD Resp normal respiratory effort, no retractions, no use of accessory muscles and clear to auscultation bilaterally Cardio Cardio Narrative: Irregularly irregular. Tachycardic GI normal to inspection, nondistended, normoactive bowel sounds, soft to palpation, non-tender, non-distended and hepatosplenomegaly Extremity normal to inspection and no clubbing, cyanosis or edema Neuro Sensorium / Orientation: awake and alert Psych affect normal Results Lab / Micro Data Attestation: I reviewed the patient's lab results. 10/12/24 13:10 10/12/24 13:10 Labs: Laboratory Results - last 24 hr 10/12/24 13:10: WBC 7.3, RBC 4.91, Hgb 14.1, Hct 44.7, MCV 91.0, MCH 28.7, MCHC 31.5 L, RDW Std Deviation 53.3 H, RDW Coeff of Akin 15.8 H, Plt Count 144 L, MPV 11.3, Immature Gran % (Auto) 0.700, Neut % (Auto) 69.4, Lymph % (Auto) 19.6, [place] % (Auto) 8.7, Eos % (Auto) 1.2, Baso % (Auto) 0.4, Absolute Neuts (auto) 5.1, Absolute Lymphs (auto) 1.44, Nucleated RBC % 0, Sodium 136, Potassium 4.1, Chloride 102, Carbon Dioxide 29.0, Anion Gap 5, BUN 25 H, Creatinine 1.50 H, Estim Creat Clear Calc 26.05, Est GFR (MDRD) Af Amer 42 L, Est GFR (MDRD) Non-Af 35 L, BUN/Creatinine Ratio 16.7, Glucose 153 H, Calcium 8.9, Troponin I High Sens 33 Micro: Microbiology 10/12/24 14:35 Mucosa - Nose SARS-CoV-2, Influenza & RSV (PCR) - Final RSV EKG Initial EKG: Attestation: I personally reviewed and interpreted this EKG as follows: Prior EKG tracings: available for review EKG Rhythm Intrepretation: Atrial Fibrillation (With RVR) Imaging Radiology Impression Chest X-Ray 10/12/24 12:58 IMPRESSION: No acute radiographic abnormalities. Prominence of the right hilum could be secondary to lymphadenopathy versus pulmonary hypertension. Electronically Signed: Dimitri White MD at 14:34 EST , Chest CTA 10/12/24 14:37 IMPRESSION: No demonstrated pulmonary embolism or arterial dissection. Electronically Signed: Con Rutherford DO at 16:15 EST , Assessment & Plan Assessment/Plan (1) Atrial fibrillation with RVR: PLAN: Refractory to metoprolol. Will give the patient dose of of IV diltiazem bolus with drip. Patient has no history of atrial fibrillation which she takes atenolol but not on anticoagulation chronically. Will initiate enoxaparin weight-based dosing. (2) RSV (respiratory syncytial virus infection): PLAN: No wheezing. Will continue with bronchodilators as needed. Given her current 6 stable status, I do not feel that she needs steroids at this point. PLAN: Plan Chronic condition * Gout: Not in exacerbation. Continue with allopurinol. * Hypertension: Continue with amlodipine, losartan and furosemide * Rheumatoid arthritis: Stable. VTE prophylaxis: Not indicated at this time as patient will be anticoagulated. CODE STATUS: Addressed with the patient. Patient stated that she would not want CPR but deferred to her daughter who when her daughter came and said that she should absolutely have CPR. Told patient and her daughter that her leave her at full code but also to them that when individual undergoes cardiac arrest and if they survive it is very involved process which may times require someone being on life support with the ventilator. I encouraged them to speak further upon this as outpatient. Charges/Coding Visit Charges Inpatient E&M: 29698 Init Hosp L3
--- NOTE | 2024-10-12 17:09 | ECHOCS_ITS ---
Version 2 Reason For Study: Afib w/RVR Procedure This was a 2D Doppler, Color Flow transthoracic echocardiogram. The study was technically difficult. Contrast injection was performed. Exam performed portable in patient room. Left Ventricle Normal LV size. Left ventricular systolic function is normal. The left ventricular ejection fraction is 55 %. No regional wall motion abnormalities noted. Right Ventricle Normal RV size. Normal systolic function. Atria Normal left atrium. Normal right atrium. Mitral Valve Normal mitral valve. Tricuspid Valve Normal tricuspid valve. Mild tricuspid valve insufficiency. Pulmonary artery systolic pressure is 40 mmHg. Aortic Valve Trisinus/trileaflet aortic valve. Pulmonic Valve The pulmonic valve is not well visualized. Great Vessels Normal aortic root. The pulmonary artery is normal size. Inferior vena cava collapse with respiration. Pericardium/Pleural No pericardial effusion. Medication Diluted definity 1ml given slow IV push to enhance endocardial definition. MMode/2D Measurements & Calculations LVIDd: 4.1 cm IVSd: 0.95 cm LVOT diam: 2.0 cm LVIDs: 3.0 cm LVPWd: 0.77 cm RVDd: 3.4 cm FS: 27.2 % LVOT area: 3.1 cm2 Ao root diam: 3.9 cm LAV(MOD-bp): 64.2 ml LA A4 area: 20.8 cm2 LAV(MOD-bp) Indexed: 37.2 ml/m2 LAV(MOD-sp2): 67.7 ml LAV(MOD-sp4): 57.1 ml LA dimension(2D): 4.3 cm TAPSE: 1.4 cm RA A4 area: 16.5 cm2 Doppler Measurements & Calculations MV E max carmela: 110.5 cm/sec MV V2 max: 121.7 cm/sec Ao V2 max: 139.3 cm/sec MV max P.9 mmHg Ao max P.8 mmHg MV V2 mean: 56.4 cm/sec Ao V2 mean: 97.8 cm/sec MV mean P.8 mmHg Ao mean P.4 mmHg MV V2 VTI: 22.3 cm Ao V2 VTI: 24.0 cm KENNETH(V,D): 1.8 cm2 LV V1 max: 79.9 cm/sec TR max carmela: 308.0 cm/sec LV V1 max P.6 mmHg TR max P.9 mmHg ECHO/Echo Complete W/ Contrast Interpretation Summary Normal LV size. Left ventricular systolic function is normal. The left ventricular ejection fraction is 55 %. Pulmonary artery systolic pressure is 40 mmHg. Contrast injection was performed. Ordering Physician: Doug Tubbs Referring Physician: Yuri Meier Performed By: Reuben Mathur RCS
[2024-10-12] MEDS: 0.9% Saline Lock 10 ML Syringe IV (17:50)
[2024-10-12] MEDS: Acetaminophen 325 MG Tablet 650 MG PO (17:51)
[2024-10-12] MEDS: Enoxaparin 80 MG/0.8 ML Syringe 70 MG SC (17:51)
[2024-10-12] MEDS: dilTIAZem 25 MG/5 ML Vial 20 MG IV BOLUS (18:01)
[2024-10-12 18:04] LABS: Troponin-I HS 36 pg/mL (3.0-54.0)
[2024-10-12] MEDS: Diltiazem 125 MG in Dextrose 5%-Water (100mL Bag) 100 ML CONT INF (18:22)
[2024-10-12 19:45] LABS: Troponin-I HS 42 pg/mL (3.0-54.0)
[2024-10-12] MEDS: Potassium Chloride Oral Tablet 10 MEQ PO (20:45)
[2024-10-12] MEDS: Dicyclomine 10 MG Capsule PO (20:45)
[2024-10-13] VITALS (35 sets, daily range): BP systolic 98–142; BP diastolic 61–98; PULSE 64–134; RESP 18–38; TEMP 36.6–39.4; O2SAT 91–98
[2024-10-13] MEDS: Albuterol 2.5 MG/3 ML VIAL.NEB. INHALATION ×3 (03:47→19:30)
[2024-10-13] MEDS: Acetaminophen 325 MG Tablet 650 MG PO ×2 (06:12→15:47)
[2024-10-13] MEDS: Dicyclomine 10 MG Capsule PO ×4 (07:36→21:51)
[2024-10-13 08:01] LABS: Anion Gap 9 (5-15); BUN 25 mg/dL (7-18); Calcium,Total 9.2 mg/dL (8.5-10.1); Chloride 101 mmol/L (98-107); Creatinine, Serum 1.19 mg/dL (0.55-1.02); EST Glomerular Filtration Rate 46 mL/min (>60); Est Glom Filt Rate - Afr Amer 55 mL/min (>60); Estimated Creatinine Clearance 32.35 ml/min; Glucose 130 mg/dL (74-106); Potassium 3.7 mmol/L (3.5-5.1); Sodium Level 138 mmol/L (136-145)
--- NOTE | 2024-10-13 08:23 | PCM.PN.HOSP ---
Reason for Visit Reason for Visit: Diagnoses Other specified viral diseases (10/12/24) Unspecified atrial fibrillation (10/12/24) Subjective Subjective Patient is an 84-year-old lady who was sent from an urgent care center in the ED after she was found to be in A-fib with RVR. She had presented to the urgent care center for evaluation of cough. RSV assay came back positive Objective Data Objective Data Vital Signs: Vital Signs Temp Pulse Resp BP Pulse Ox O2 Del Method 98.4 F 80 25 H 141/77 H 95 Room Air 10/12/24 23:00 10/13/24 07:00 10/13/24 06:00 10/13/24 06:00 10/13/24 06:00 10/13/24 07:25 Oxygen Delivery Method Room Air Weight: 69.6 kg Body Mass Index (BMI) 27.1 Intake & Output: Intake and Output for Last 24 Hours 10/11/24 10/12/24 10/13/24 23:59 23:59 23:59 Intake Total 383.17 / 388.17 35 / 35 Balance 383.17 / 388.17 35 / 35 Lab / Micro Data 10/12/24 13:10 10/13/24 06:15 Labs: Laboratory Results - last 24 hr 10/12/24 13:10: WBC 7.3, RBC 4.91, Hgb 14.1, Hct 44.7, MCV 91.0, MCH 28.7, MCHC 31.5 L, RDW Std Deviation 53.3 H, RDW Coeff of Akin 15.8 H, Plt Count 144 L, MPV 11.3, Immature Gran % (Auto) 0.700, Neut % (Auto) 69.4, Lymph % (Auto) 19.6, [place] % (Auto) 8.7, Eos % (Auto) 1.2, Baso % (Auto) 0.4, Absolute Neuts (auto) 5.1, Absolute Lymphs (auto) 1.44, Nucleated RBC % 0, Sodium 136, Potassium 4.1, Chloride 102, Carbon Dioxide 29.0, Anion Gap 5, BUN 25 H, Creatinine 1.50 H, Estim Creat Clear Calc 26.05, Est GFR (MDRD) Af Amer 42 L, Est GFR (MDRD) Non-Af 35 L, BUN/Creatinine Ratio 16.7, Glucose 153 H, Calcium 8.9, Troponin I High Sens 33 10/12/24 17:39: Troponin I High Sens 36 10/12/24 19:19: Troponin I High Sens 42 10/13/24 06:15: Sodium 138, Potassium 3.7, Chloride 101, Carbon Dioxide 28.0, Anion Gap 9, BUN 25 H, Creatinine 1.19 H, Estim Creat Clear Calc 32.35, Est GFR (MDRD) Af Amer 55 L, Est GFR (MDRD) Non-Af 46 L, BUN/Creatinine Ratio 21.0 H, Glucose 130 H, Calcium 9.2 Micro: Microbiology 10/12/24 14:35 Mucosa - Nose SARS-CoV-2, Influenza & RSV (PCR) - Final RSV Radiography Diagnostic Testing: Radiology Impression Chest X-Ray 10/12/24 12:58 IMPRESSION: No acute radiographic abnormalities. Prominence of the right hilum could be secondary to lymphadenopathy versus pulmonary hypertension. Electronically Signed: Dimitri White MD at 14:34 EST , Chest CTA 10/12/24 14:37 IMPRESSION: No demonstrated pulmonary embolism or arterial dissection. Electronically Signed: Con Rutherford DO at 16:15 EST , Physical Exam Narrative GENERAL: cooperative HEENT: Atraumatic; normocephalic EYES; Anicteric, Normal Conjunctiva NECK; supple, normal thyroid, RESPIRATORY: Diminished to auscultation CARDIOVASCULAR: Irregular S1-S2 GI: soft, normoactive bowel sounds, : No Renal angle tenderness; EXTREMITIES: No edema, no clubbing, MUSCULOSKELETAL: no muscle wasting NEURO: Awake; no lateralizing signs. SKIN: No Rash PSYCH; Flat affect Assessment & Plan Assessment/Plan (1) Atrial fibrillation with RVR: (2) RSV (respiratory syncytial virus infection): (3) Hypertension: PLAN: Plan Patient is an 84-year-old lady who was sent from an urgent care center in the ED after she was found to be in A-fib with RVR. She had presented to the urgent care center for evaluation of cough. RSV assay came back positive 1. New onset atrial fibrillation with rapid ventricular response ? Patient was started on Cardizem drip admitted to monitored bed titrated to keep heart rate less than 100. As part of patient's evaluation serial cardiac enzymes 2D echo ordered. Patient was weaned off the Cardizem drip and started on scheduled Cardizem. With patient [id number] score being 3 patient was started on systemic anticoagulation initially with Lovenox switched to apixaban 2. RSV infection ? Treated symptomatically. With patient having active wheezing inhaled budesonide added to patient's treatment regimen 3. Hypertension ? Blood pressure controlled, home medications continued with dose adjustment as needed 4. Gout ? Patient is on allopurinol continue 5. Hypothyroidism ? Patient is on levothyroxine home dose continued 6. Rheumatoid arthritis ? Patient not on any Biologics however symptoms remain stable 7. DVT prophylaxis ? Patient was started on therapeutic Lovenox as part of management of her A-fib Time spent in the patient's overall evaluation,decision-making process, review of diagnostic data, adjustment of management, discussion with other providers, nursing nursing and ancillary staff involved in patient's care documentation, 50 Minutes Charges/Coding Visit Charges Inpatient E&M: 09040 [facility] L3
[2024-10-13] MEDS: 0.9% Saline Lock 10 ML Syringe IV ×3 (08:39→17:30)
[2024-10-13] MEDS: Enoxaparin 80 MG/0.8 ML Syringe 70 MG SC (08:40)
[2024-10-13] MEDS: Allopurinol 100 MG Tablet PO (08:42)
[2024-10-13] MEDS: Potassium Chloride Oral Tablet 10 MEQ PO ×2 (08:42→16:19)
[2024-10-13] MEDS: Losartan Potassium 100 MG Tablet PO (08:43)
[2024-10-13] MEDS: Furosemide 40 MG Tablet PO (08:43)
[2024-10-13] MEDS: dilTIAZem CD 120 MG Capsule PO (10:16)
--- NOTE | 2024-10-13 11:27 | CASEMGMT ---
JOSE EAST Assessment Face to Face with patient for initial transition planning/care coordination assessment. JOSE EAST introduced self and role at [facility], pt voices understanding. Pt is A&Ox4 and is resting comfortably in bed and is calm. Care providers, pharmacy, and demographics verified. Admitting dx: KRISSY GUNTER Strata: 2 PCP: Atul Harvey Specialists: Nirmala (Cardio) Preferred Pharmacy: [facility] Insurance: AETFiiiling [facility] Prescription Benefit: Yes LNOK: oNemy Uribe (Daughter) Living Arrangements: Pt lives alone in a single story home with a flat entrance ADLs/IADLs: Ind Transportation: Self, daughter DME: Access to a cane, FWW, and BP machine. Pt may qualify for home oxygen use. A verbal list of local in-network DME companies were provided to the pt at this time. Pt prefers [facility]. HHC/SNF: Denies history or needs Pt?s goal: Home Plan: Home, follow for blood thinning Rx and O2. Otherwise, pt denies needs and states that she feels safe returning home alone without any additional therapy. Pt states that her daughter and GS live next-door if she needs anything. Report given to [facility] CM. Jaxon Vo RN, CM
[2024-10-13] MEDS: Budesonide Respules 0.5 MG/2 ML AMPUL.NEB. INHALATION (14:24)
[2024-10-13] MEDS: dilTIAZem 25 MG/5 ML Vial 20 MG IV BOLUS (16:05)
[2024-10-13] MEDS: Diltiazem 125 MG in Dextrose 5%-Water (100mL Bag) 100 ML CONT INF (16:15)
[2024-10-13] MEDS: Furosemide 40 MG/4 ML Vial IV (17:30)
--- NOTE | 2024-10-13 21:10 | PCM.HOSP.N ---
Hospitalist Note Called as patient has orders for p.o. and IV Cardizem. Will hold p.o. Cardizem as drip is currently at 15 heart rates are still elevated. I do not think we will be able to transition her off the drip.
[2024-10-13] MEDS: Atorvastatin Calcium 20 MG Tablet PO (21:51)
[2024-10-13] MEDS: APIXABAN 5 MG TABLET PO (21:51)
[2024-10-13] MEDS: DULoxetine Hcl 30 MG Capsule PO (21:51)
[2024-10-14] VITALS (28 sets, daily range): BP systolic 96–158; BP diastolic 64–92; PULSE 97–127; RESP 19–93; TEMP 36.3–38.6; O2SAT 90–99
[2024-10-14] MEDS: Diltiazem 125 MG in Dextrose 5%-Water (100mL Bag) 100 ML 15 MG CONT INF ×3 (01:35→18:31)
[2024-10-14] MEDS: Levothyroxine 25 MCG TABLET PO (05:51)
[2024-10-14] MEDS: Dicyclomine 10 MG Capsule PO ×4 (05:52→21:33)
[2024-10-14] MEDS: Acetaminophen 325 MG Tablet 650 MG PO (05:55)
[2024-10-14] MEDS: Albuterol 2.5 MG/3 ML VIAL.NEB. INHALATION (06:45)
[2024-10-14] MEDS: Budesonide Respules 0.5 MG/2 ML AMPUL.NEB. INHALATION ×2 (06:45→20:01)
[2024-10-14 07:25] LABS: Absolute Lymphocyte Count 1.54 X10^3/uL (0.83-4.51); Absolute Neutrophil Count 7.4 X10^3/uL (2.0-7.7); Basophil# 0.02 X10^3/uL; Basophil% 0.2 % (0-1); Eosinophil# 0.07 X10^3/uL; Eosinophils% 0.7 % (0-5); Hematocrit 41.5 % (37-47); Hemoglobin 13.3 g/dL (12.0-15.0); Lymphocyte # 1.54 X10^3/ul (0.83-4.51); Lymphocyte % 15.8 % (19-41); Mean Corpuscular Hgb 28.2 pg (27.0-32.0); Mean Corpuscular Volume 88.1 fL (81-99); Mean Platelet Vol. 10.6 fl (6.2-12.0); Monocyte% 7.2 % (0-10); NRBC Flagged by Analyzer 0 % (0-5); Neutrophil # 7.36 X10^3/uL (2.7-7.7); Neutrophil % 75.6 % (47-70); Platelet Count 144 K/mm3 (150-450); RBC Distribution Width CV 15.7 % (11.6-14.6); RBC Distribution Width SD 51.1 fl (35.1-43.9); Red Blood Count 4.71 M/mm3 (4.2-5.4); White Blood Count 9.7 K/mm3 (4.4-11.0)
[2024-10-14 07:42] LABS: Anion Gap 8 (5-15); BUN 20 mg/dL (7-18); BUN/Creat Ratio 17.9 RATIO (10-20); Chloride 100 mmol/L (98-107); Creatinine, Serum 1.12 mg/dL (0.55-1.02); EST Glomerular Filtration Rate 49 mL/min (>60); Est Glom Filt Rate - Afr Amer 59 mL/min (>60); Estimated Creatinine Clearance 34.37 ml/min; Glucose 162 mg/dL (74-106); Magnesium 1.8 mg/dL (1.6-2.6); Potassium 3.4 mmol/L (3.5-5.1); Sodium Level 133 mmol/L (136-145)
--- NOTE | 2024-10-14 08:17 | PN.HOSP_ITS ---
Reason for Visit Reason for Visit: Diagnoses Other specified viral diseases (10/12/24) Essential (primary) hypertension (10/12/24) Unspecified atrial fibrillation (10/12/24) Subjective Subjective Patient seen maxed out on Cardizem drip heart rate still not well-controlled. She also did spike fever the day prior. Objective Data Objective Data Vital Signs: Vital Signs Temp Pulse Resp BP Pulse Ox O2 Del Method O2 Flow Rate 101.5 F H 107 H 29 H 130/77 H 96 Nasal Cannula 2 10/14/24 06:00 10/14/24 07:28 10/14/24 07:28 10/14/24 07:28 10/14/24 07:50 10/14/24 07:50 10/14/24 07:50 Oxygen Flow Rate (L/min) 2 Oxygen Delivery Method Nasal Cannula Weight: 69.6 kg Body Mass Index (BMI) 27.1 Intake & Output: Intake and Output for Last 24 Hours 10/12/24 10/13/24 10/14/24 23:59 23:59 23:59 Intake Total 383.17 / 388.17 321.25 / 441.25 367.00 / 367.00 Output Total 600 / 600 Balance 383.17 / 388.17 321.25 / 141.25 -233.00 / -233.00 Lab / Micro Data 10/14/24 06:22 10/14/24 06:22 Labs: Laboratory Results - last 24 hr 10/14/24 06:22: WBC 9.7, RBC 4.71, Hgb 13.3, Hct 41.5, MCV 88.1, MCH 28.2, MCHC 32.0, RDW Std Deviation 51.1 H, RDW Coeff of Akin 15.7 H, Plt Count 144 L, MPV 10.6, Immature Gran % (Auto) 0.500, Neut % (Auto) 75.6 H, Lymph % (Auto) 15.8 L, [place] % (Auto) 7.2, Eos % (Auto) 0.7, Baso % (Auto) 0.2, Absolute Neuts (auto) 7.4, Absolute Lymphs (auto) 1.54, Nucleated RBC % 0, Sodium 133 L, Potassium 3.4 L, Chloride 100, Carbon Dioxide 25.0, Anion Gap 8, BUN 20 H, Creatinine 1.12 H, Estim Creat Clear Calc 34.37, Est GFR (MDRD) Af Amer 59 L, Est GFR (MDRD) Non-Af 49 L, BUN/Creatinine Ratio 17.9, Glucose 162 H, Calcium 9.0, Phosphorus 3.0, Magnesium 1.8 Micro: Microbiology 10/13/24 18:35 Mucosa - Nose Coronavirus COVID-19 PCR - Final 10/12/24 14:35 Mucosa - Nose SARS-CoV-2, Influenza & RSV (PCR) - Final RSV Radiography Diagnostic Testing: Radiology Impression Echocardiogram 10/12/24 17:09 Interpretation Summary Normal LV size. Left ventricular systolic function is normal. The left ventricular ejection fraction is 55 %. Pulmonary artery systolic pressure is 40 mmHg. Contrast injection was performed. Ordering Physician: Doug Tubbs Referring Physician: Yuri Meier Performed By: Reuben Mathur RCS Physical Exam Narrative GENERAL: cooperative HEENT: Atraumatic; normocephalic EYES; Anicteric, Normal Conjunctiva NECK; supple, normal thyroid, RESPIRATORY: Diminished to auscultation CARDIOVASCULAR: Irregular S1-S2 GI: soft, normoactive bowel sounds, : No Renal angle tenderness; EXTREMITIES: No edema, no clubbing, MUSCULOSKELETAL: no muscle wasting NEURO: Awake; no lateralizing signs. SKIN: No Rash PSYCH; Flat affect Assessment & Plan Assessment/Plan (1) Atrial fibrillation with RVR: (2) RSV (respiratory syncytial virus infection): (3) Hypertension: PLAN: Plan Patient is an 84-year-old lady who was sent from an urgent care center in the ED after she was found to be in A-fib with RVR. She had presented to the urgent care center for evaluation of cough. RSV assay came back positive 1. New onset atrial fibrillation with rapid ventricular response ? Patient was started on Cardizem drip admitted to monitored bed titrated to keep heart rate less than 100. As part of patient's evaluation serial cardiac enzymes 2D echo ordered. Patient was weaned off the Cardizem drip and started on scheduled Cardizem. With patient [id number] score being 3 patient was started on systemic anticoagulation initially with Lovenox switched to apixaban ? 10/14/2024; patient Cardizem drip had to be reintroduced after she went back into A-fib with RVR. Heart rate still remains elevated. Patient is currently on maximum dose of Cardizem. 2. RSV infection ? Treated symptomatically. With patient having active wheezing inhaled budesonide added to patient's treatment regimen ? 10/31/2024; patient still remains symptomatic with high-grade fevers. 3. Hypertension ? Blood pressure controlled, home medications continued with dose adjustment as needed 4. Gout ? Patient is on allopurinol continue 5. Hypothyroidism ? Patient is on levothyroxine home dose continued 6. Rheumatoid arthritis ? Patient not on any Biologics however symptoms remain stable 7. DVT prophylaxis ? Patient was started on therapeutic Lovenox as part of management of her A-fib Time spent in the patient's overall evaluation,decision-making process, review of diagnostic data, adjustment of management, discussion with other providers, nursing nursing and ancillary staff involved in patient's care documentation, 50 Minutes Charges/Coding Visit Charges Inpatient E&M: 59822 [facility] L3
[2024-10-14] MEDS: Furosemide 40 MG Tablet PO (08:24)
[2024-10-14] MEDS: APIXABAN 5 MG TABLET PO ×2 (08:24→21:33)
[2024-10-14] MEDS: Famotidine 20 MG Tablet PO (08:24)
[2024-10-14] MEDS: Potassium Chloride Oral Tablet 10 MEQ PO (08:34)
[2024-10-14] MEDS: Folic Acid 1 MG Tablet 2 MG PO (08:34)
[2024-10-14] MEDS: Losartan Potassium 50 MG Tablet PO (08:35)
[2024-10-14] MEDS: Allopurinol 100 MG Tablet PO (08:35)
[2024-10-14] MEDS: guaiFENesin/D-Methorphan TAB.SR.12H 1 TABLET PO ×2 (11:51→21:33)
--- NOTE | 2024-10-14 12:30 | CASEMGMT ---
JOSE EAST note: JOSE EAST to room. Pt sitting up in chair in room, alert/oriented. Introduced self and role. Pt states she is having some weakness, but states feels like it is improving and will continue to improve. She declines wanting any HHC or OP therapy @ dc. Her daughter will take her home @ discharge and they can order picker/assembler medications from [facility] in [place] @ discharge. Discussed Eliquis and made aware of importance of taking. Provided w/Eliquis 30-day free trial offer card and instructed on use. Made aware it is a [id number]-lifetime use card. Also made aware, if refills are not affordable to discuss this w/PCP. She voices understanding and denies having further discharge needs/concerns. Mae LIZARRAGA RN CM
[2024-10-14] MEDS: 0.9% Saline Lock 10 ML Syringe IV (13:07)
[2024-10-14] MEDS: Ondansetron 4 MG/2 ML Vial IV (13:07)
[2024-10-14] MEDS: Potassium Chloride Oral Tablet 20 MEQ PO (17:59)
[2024-10-14] MEDS: Atorvastatin Calcium 20 MG Tablet PO (21:33)
[2024-10-14] MEDS: DULoxetine Hcl 30 MG Capsule PO (21:33)
[2024-10-15] VITALS (25 sets, daily range): BP systolic 90–157; BP diastolic 57–140; PULSE 67–122; RESP 16–27; TEMP 36.3–36.6; O2SAT 90–98
[2024-10-15] MEDS: Diltiazem 125 MG in Dextrose 5%-Water (100mL Bag) 100 ML 15 MG CONT INF (02:51)
[2024-10-15] MEDS: Levothyroxine 25 MCG TABLET PO (06:20)
[2024-10-15] MEDS: Dicyclomine 10 MG Capsule PO ×4 (06:21→20:14)
[2024-10-15 07:01] LABS: Absolute Lymphocyte Count 1.66 X10^3/uL (0.83-4.51); Absolute Neutrophil Count 9.1 X10^3/uL (2.0-7.7); Basophil# 0.04 X10^3/uL; Basophil% 0.3 % (0-1); Eosinophil# 0.09 X10^3/uL; Eosinophils% 0.8 % (0-5); Hematocrit 42.7 % (37-47); Hemoglobin 13.8 g/dL (12.0-15.0); Lymphocyte # 1.66 X10^3/ul (0.83-4.51); Lymphocyte % 14.2 % (19-41); Mean Corp Hgb Conc 32.3 g/dL (32-36); Mean Corpuscular Hgb 28.6 pg (27.0-32.0); Mean Corpuscular Volume 88.6 fL (81-99); Monocyte# 0.65 X10^3/uL; Monocyte% 5.6 % (0-10); NRBC Flagged by Analyzer 0 % (0-5); Neutrophil # 9.14 X10^3/uL (2.7-7.7); Neutrophil % 78.4 % (47-70); Platelet Count 169 K/mm3 (150-450); RBC Distribution Width CV 15.7 % (11.6-14.6); RBC Distribution Width SD 50.6 fl (35.1-43.9); Red Blood Count 4.82 M/mm3 (4.2-5.4); White Blood Count 11.7 K/mm3 (4.4-11.0)
[2024-10-15 07:27] LABS: Anion Gap 9 (5-15); BUN 25 mg/dL (7-18); BUN/Creat Ratio 20.2 RATIO (10-20); Calcium,Total 9.1 mg/dL (8.5-10.1); Chloride 98 mmol/L (98-107); Creatinine, Serum 1.24 mg/dL (0.55-1.02); EST Glomerular Filtration Rate 44 mL/min (>60); Est Glom Filt Rate - Afr Amer 53 mL/min (>60); Estimated Creatinine Clearance 31.04 ml/min; Glucose 151 mg/dL (74-106); Potassium 3.6 mmol/L (3.5-5.1); Sodium Level 131 mmol/L (136-145)
[2024-10-15] MEDS: Budesonide Respules 0.5 MG/2 ML AMPUL.NEB. INHALATION ×2 (07:43→19:53)
--- NOTE | 2024-10-15 08:14 | PCM.PN.HOSP ---
Reason for Visit Reason for Visit: Diagnoses Other specified viral diseases (10/12/24) Essential (primary) hypertension (10/12/24) Unspecified atrial fibrillation (10/12/24) Subjective Subjective Patient seen heart rate still remains uncontrolled. It appears the IV Cardizem is not having any effect discontinued started patient on Lopressor. With regards to her RSV symptoms appear to be improving Objective Data Objective Data Vital Signs: Vital Signs Temp Pulse Resp BP Pulse Ox O2 Del Method O2 Flow Rate 97.7 F L 108 H 24 H 131/113 H 94 Nasal Cannula 2 10/15/24 05:00 10/15/24 07:43 10/15/24 07:43 10/15/24 07:00 10/15/24 07:43 10/15/24 07:43 10/15/24 07:43 Oxygen Flow Rate (L/min) 2 Oxygen Delivery Method Nasal Cannula Weight: 69.6 kg Body Mass Index (BMI) 27.1 Intake & Output: Intake and Output for Last 24 Hours 10/13/24 10/14/24 10/15/24 23:59 23:59 23:59 Intake Total 321.25 / 441.25 1596.00 / 1831.00 460.00 / 460.00 Output Total 600 / 600 Balance 321.25 / 141.25 996.00 / 1231.00 460.00 / 460.00 Lab / Micro Data 10/15/24 05:20 10/15/24 05:20 Labs: Laboratory Results - last 24 hr 10/15/24 05:20: WBC 11.7 H, RBC 4.82, Hgb 13.8, Hct 42.7, MCV 88.6, MCH 28.6, MCHC 32.3, RDW Std Deviation 50.6 H, RDW Coeff of Akin 15.7 H, Plt Count 169, MPV 11.0, Immature Gran % (Auto) 0.700, Neut % (Auto) 78.4 H, Lymph % (Auto) 14.2 L, [place] % (Auto) 5.6, Eos % (Auto) 0.8, Baso % (Auto) 0.3, Absolute Neuts (auto) 9.1 H, Absolute Lymphs (auto) 1.66, Nucleated RBC % 0, Sodium 131 L, Potassium 3.6, Chloride 98, Carbon Dioxide 24.0, Anion Gap 9, BUN 25 H, Creatinine 1.24 H, Estim Creat Clear Calc 31.04, Est GFR (MDRD) Af Amer 53 L, Est GFR (MDRD) Non-Af 44 L, BUN/Creatinine Ratio 20.2 H, Glucose 151 H, Calcium 9.1 Micro: Microbiology 10/13/24 18:35 Mucosa - Nose Coronavirus COVID-19 PCR - Final 10/12/24 14:35 Mucosa - Nose SARS-CoV-2, Influenza & RSV (PCR) - Final RSV Physical Exam Narrative GENERAL: cooperative HEENT: Atraumatic; normocephalic EYES; Anicteric, Normal Conjunctiva NECK; supple, normal thyroid, RESPIRATORY: Diminished to auscultation CARDIOVASCULAR: Irregular S1-S2 GI: soft, normoactive bowel sounds, : No Renal angle tenderness; EXTREMITIES: No edema, no clubbing, MUSCULOSKELETAL: no muscle wasting NEURO: Awake; no lateralizing signs. SKIN: No Rash PSYCH; Flat affect Assessment & Plan Assessment/Plan (1) Atrial fibrillation with RVR: (2) RSV (respiratory syncytial virus infection): (3) Hypertension: PLAN: Plan Patient is an 84-year-old lady who was sent from an urgent care center in the ED after she was found to be in A-fib with RVR. She had presented to the urgent care center for evaluation of cough. RSV assay came back positive 1. New onset atrial fibrillation with rapid ventricular response ? Patient was started on Cardizem drip admitted to monitored bed titrated to keep heart rate less than 100. As part of patient's evaluation serial cardiac enzymes 2D echo ordered. Patient was weaned off the Cardizem drip and started on scheduled Cardizem. With patient [id number] score being 3 patient was started on systemic anticoagulation initially with Lovenox switched to apixaban ? 10/14/2024; patient Cardizem drip had to be reintroduced after she went back into A-fib with RVR. Heart rate still remains elevated. Patient is currently on maximum dose of Cardizem. ? 10/15/2024; Cardizem drip discontinued added Lopressor to patient treatment regimen 2. RSV infection ? Treated symptomatically. With patient having active wheezing inhaled budesonide added to patient's treatment regimen ? 10/13/2024; patient still remains symptomatic with high-grade fevers. ? 10/15/2024; continues to improve with regards to his symptoms 3. Hypertension ? Blood pressure controlled, home medications continued with dose adjustment as needed 4. Gout ? Patient is on allopurinol continue 5. Hypothyroidism ? Patient is on levothyroxine home dose continued 6. Rheumatoid arthritis ? Patient not on any Biologics however symptoms remain stable 7. DVT prophylaxis ? Patient was started on therapeutic Lovenox as part of management of her A-fib Time spent in the patient's overall evaluation,decision-making process, review of diagnostic data, adjustment of management, discussion with other providers, nursing nursing and ancillary staff involved in patient's care documentation, 36 Minutes Charges/Coding Visit Charges Inpatient E&M: 63352 [facility] Hosp L2
[2024-10-15] MEDS: Famotidine 20 MG Tablet PO (10:22)
[2024-10-15] MEDS: Folic Acid 1 MG Tablet 2 MG PO (10:22)
[2024-10-15] MEDS: Cholecalciferol (VIT D3) 25 MCG TABLET (1,000 UNITS) PO (10:22)
[2024-10-15] MEDS: Allopurinol 100 MG Tablet PO (10:22)
[2024-10-15] MEDS: APIXABAN 5 MG TABLET PO ×2 (10:23→20:13)
[2024-10-15] MEDS: guaiFENesin/D-Methorphan TAB.SR.12H 1 TABLET PO ×2 (10:23→20:14)
[2024-10-15] MEDS: Furosemide 40 MG Tablet PO (10:23)
[2024-10-15] MEDS: Potassium Chloride Oral Tablet 20 MEQ PO ×2 (10:23→17:43)
[2024-10-15] MEDS: Losartan Potassium 50 MG Tablet PO (10:23)
[2024-10-15] MEDS: Metoprolol Tartrate 25 MG Tablet PO ×2 (10:37→20:13)
[2024-10-15] MEDS: Ondansetron 4 MG/2 ML Vial IV (14:35)
[2024-10-15] MEDS: 0.9% Saline Lock 10 ML Syringe IV (14:35)
[2024-10-15] MEDS: DULoxetine Hcl 30 MG Capsule PO (20:14)
[2024-10-15] MEDS: Atorvastatin Calcium 20 MG Tablet PO (20:14)
[2024-10-16] VITALS (13 sets, daily range): BP systolic 102–155; BP diastolic 78–100; PULSE 90–130; RESP 16–21; TEMP 35.9–36.6; O2SAT 94–97
[2024-10-16 05:27] LABS: Absolute Lymphocyte Count 1.99 X10^3/uL (0.83-4.51); Absolute Neutrophil Count 8.4 X10^3/uL (2.0-7.7); Basophil# 0.06 X10^3/uL; Basophil% 0.5 % (0-1); Eosinophil# 0.13 X10^3/uL; Eosinophils% 1.2 % (0-5); Hematocrit 42.4 % (37-47); Hemoglobin 13.8 g/dL (12.0-15.0); Lymphocyte # 1.99 X10^3/ul (0.83-4.51); Lymphocyte % 17.7 % (19-41); Mean Corp Hgb Conc 32.5 g/dL (32-36); Mean Corpuscular Hgb 28.5 pg (27.0-32.0); Mean Corpuscular Volume 87.4 fL (81-99); Mean Platelet Vol. 11.2 fl (6.2-12.0); Monocyte# 0.56 X10^3/uL; NRBC Flagged by Analyzer 0 % (0-5); Neutrophil # 8.39 X10^3/uL (2.7-7.7); Neutrophil % 74.8 % (47-70); POSITIVE MORPHOLOGY YES; Platelet Count 187 K/mm3 (150-450); RBC Distribution Width CV 15.4 % (11.6-14.6); RBC Distribution Width SD 49.1 fl (35.1-43.9); Red Blood Count 4.85 M/mm3 (4.2-5.4); White Blood Count 11.2 K/mm3 (4.4-11.0)
[2024-10-16] MEDS: Dicyclomine 10 MG Capsule PO ×4 (05:58→21:08)
[2024-10-16] MEDS: Levothyroxine 25 MCG TABLET PO (05:58)
[2024-10-16 06:03] LABS: Anion Gap 7 (5-15); BUN 26 mg/dL (7-18); BUN/Creat Ratio 24.1 RATIO (10-20); Calcium,Total 9.3 mg/dL (8.5-10.1); Chloride 99 mmol/L (98-107); Creatinine, Serum 1.08 mg/dL (0.55-1.02); EST Glomerular Filtration Rate 51 mL/min (>60); Est Glom Filt Rate - Afr Amer 62 mL/min (>60); Estimated Creatinine Clearance 35.64 ml/min; Glucose 140 mg/dL (74-106); Potassium 4.1 mmol/L (3.5-5.1); Sodium Level 132 mmol/L (136-145)
[2024-10-16 06:15] LABS: Differential Indicated SCAN CRITERIA MET
[2024-10-16] MEDS: Budesonide Respules 0.5 MG/2 ML AMPUL.NEB. INHALATION ×2 (07:23→20:45)
--- NOTE | 2024-10-16 07:44 | PCM.PN.HOSP ---
Reason for Visit Reason for Visit: Diagnoses Other specified viral diseases (10/12/24) Essential (primary) hypertension (10/12/24) Unspecified atrial fibrillation (10/12/24) Subjective Subjective Patient seen cough and nasal congestion improving heart rate still not controlled. Patient had been started on beta-blockers the day prior. With patient heart rate still remains elevated consult was placed to cardiology Objective Data Objective Data Vital Signs: Vital Signs Temp Pulse Resp BP Pulse Ox O2 Del Method O2 Flow Rate 96.6 F L 109 H 18 139/86 H 94 Nasal Cannula 2 10/16/24 04:45 10/16/24 07:24 10/16/24 07:24 10/16/24 04:45 10/16/24 07:24 10/16/24 07:24 10/16/24 07:24 Oxygen Flow Rate (L/min) 2 Oxygen Delivery Method Nasal Cannula Weight: 69.6 kg Body Mass Index (BMI) 27.1 Intake & Output: Intake and Output for Last 24 Hours 10/14/24 10/15/24 10/16/24 23:59 23:59 23:59 Intake Total 1596.00 / 1831.00 1197.75 / 1197.75 Output Total 600 / 600 Balance 996.00 / 1231.00 1197.75 / 1197.75 Lab / Micro Data 10/16/24 04:15 10/16/24 04:15 Labs: Laboratory Results - last 24 hr 10/16/24 04:15: WBC 11.2 H, RBC 4.85, Hgb 13.8, Hct 42.4, MCV 87.4, MCH 28.5, MCHC 32.5, RDW Std Deviation 49.1 H, RDW Coeff of Akin 15.4 H, Plt Count 187, MPV 11.2, Immature Gran % (Auto) 0.800, Neut % (Auto) 74.8 H, Lymph % (Auto) 17.7 L, [place] % (Auto) 5.0, Eos % (Auto) 1.2, Baso % (Auto) 0.5, Absolute Neuts (auto) 8.4 H, Absolute Lymphs (auto) 1.99, Nucleated RBC % 0, Sodium 132 L, Potassium 4.1, Chloride 99, Carbon Dioxide 25.0, Anion Gap 7, BUN 26 H, Creatinine 1.08 H, Estim Creat Clear Calc 35.64, Est GFR (MDRD) Af Amer 62, Est GFR (MDRD) Non-Af 51 L, BUN/Creatinine Ratio 24.1 H, Glucose 140 H, Calcium 9.3 Micro: Microbiology 10/13/24 18:13 Blood Culture (Wb) - Left Hand Blood Culture - Preliminary No growth in 48 hours. 10/13/24 18:35 Mucosa - Nose Coronavirus COVID-19 PCR - Final 10/12/24 14:35 Mucosa - Nose SARS-CoV-2, Influenza & RSV (PCR) - Final RSV Physical Exam Narrative GENERAL: cooperative HEENT: Atraumatic; normocephalic EYES; Anicteric, Normal Conjunctiva NECK; supple, normal thyroid, RESPIRATORY: Diminished to auscultation CARDIOVASCULAR: Irregular S1-S2 GI: soft, normoactive bowel sounds, : No Renal angle tenderness; EXTREMITIES: No edema, no clubbing, MUSCULOSKELETAL: no muscle wasting NEURO: Awake; no lateralizing signs. SKIN: No Rash PSYCH; Flat affect Assessment & Plan Assessment/Plan (1) Atrial fibrillation with RVR: (2) RSV (respiratory syncytial virus infection): (3) Hypertension: PLAN: Plan Patient is an 84-year-old lady who was sent from an urgent care center in the ED after she was found to be in A-fib with RVR. She had presented to the urgent care center for evaluation of cough. RSV assay came back positive 1. New onset atrial fibrillation with rapid ventricular response ? Patient was started on Cardizem drip admitted to monitored bed titrated to keep heart rate less than 100. As part of patient's evaluation serial cardiac enzymes 2D echo ordered. Patient was weaned off the Cardizem drip and started on scheduled Cardizem. With patient [id number] score being 3 patient was started on systemic anticoagulation initially with Lovenox switched to apixaban ? 10/14/2024; patient Cardizem drip had to be reintroduced after she went back into A-fib with RVR. Heart rate still remains elevated. Patient is currently on maximum dose of Cardizem. ? 10/15/2024; Cardizem drip discontinued added Lopressor to patient treatment regimen ? 10/16/2024 Patient had been started on beta-blockers the day prior. With patient heart rate still remains elevated consult was placed to cardiology 2. RSV infection ? Treated symptomatically. With patient having active wheezing inhaled budesonide added to patient's treatment regimen ? 10/13/2024; patient still remains symptomatic with high-grade fevers. ? 10/15/2024; continues to improve with regards to his symptoms 3. Hypertension ? Blood pressure controlled, home medications continued with dose adjustment as needed 4. Gout ? Patient is on allopurinol continue 5. Hypothyroidism ? Patient is on levothyroxine home dose continued 6. Rheumatoid arthritis ? Patient not on any Biologics however symptoms remain stable 7. DVT prophylaxis ? Patient was started on therapeutic Lovenox as part of management of her A-fib Time spent in the patient's overall evaluation,decision-making process, review of diagnostic data, adjustment of management, discussion with other providers, nursing nursing and ancillary staff involved in patient's care documentation, 36 Minutes Charges/Coding Visit Charges Inpatient E&M: 33547 Subs Hosp L2
[2024-10-16 08:28] LABS: Atypical Lymphocyte 1+ %
[2024-10-16] MEDS: Potassium Chloride Oral Tablet 20 MEQ PO ×2 (09:04→17:09)
[2024-10-16] MEDS: guaiFENesin/D-Methorphan TAB.SR.12H 1 TABLET PO ×2 (09:04→21:08)
[2024-10-16] MEDS: Allopurinol 100 MG Tablet PO (09:05)
[2024-10-16] MEDS: Metoprolol Tartrate 25 MG Tablet PO ×2 (09:05→10:33)
[2024-10-16] MEDS: Losartan Potassium 50 MG Tablet PO (09:05)
[2024-10-16] MEDS: Furosemide 40 MG Tablet PO (09:06)
[2024-10-16] MEDS: Famotidine 20 MG Tablet PO (09:06)
[2024-10-16] MEDS: APIXABAN 5 MG TABLET PO ×2 (09:06→21:08)
[2024-10-16] MEDS: Cholecalciferol (VIT D3) 25 MCG TABLET (1,000 UNITS) PO (09:06)
[2024-10-16] MEDS: Acetaminophen 325 MG Tablet 650 MG PO (09:07)
[2024-10-16] MEDS: Folic Acid 1 MG Tablet 2 MG PO (09:13)
--- NOTE | 2024-10-16 09:48 | CON.PCM.CA_ITS ---
Assessment & Plan Assessment/Plan (1) Atrial fibrillation with RVR: PLAN: At the moment she has atrial fibrillation with an uncontrolled ventricular response rate. She is on diltiazem, beta-sadie, and anticoagulation. * Will recommend that we increase the metoprolol to 50 mg twice a day from this morning * Add amiodarone 200 mg twice a day * Continue diltiazem for now * Continue anticoagulation * Will see how she does over the next 24 hours and make further adjustments. (2) Hypertension: PLAN: Her blood pressure appears to be under better control at this time. I would not recommend that we restart the clonidine Thank you for allowing me to participate in the care of your patient. Please don't hesitate to call if any issues arise. HPI Consult Data Date of Consult: 10/16/24 HPI Narrative HPI Narrative: KIRIT GARZA, is a 84 F who presented to the emergency room a few days ago with upper respiratory tract infection and was also noted to be in atrial fibrillation with rapid ventricular response rate. She was admitted and was treated for her respiratory issues and then was also put on rate limiting medications for her atrial fibrillation. However she has continued to have an elevated heart rate. She underwent an echocardiographic evaluation which demonstrated an ejection fraction of 55% with no wall motion abnormalities present. She has had no dizziness or diaphoresis no near-syncope or syncope. She has been on anticoagulation as well. Cardiology was called for further evaluation and management. On the telemetry unit she is noted to have a heart rate of between 120 and 130 bpm. [facility] Medical History (Updated 10/13/24 @ 09:[address] Leandro Ledezma MD) Hypertension Rheumatoid arthritis Chronic kidney disease, stage 3 Home Medications ?Medication ?Instructions ?Recorded ?Last Taken ?Type allopurinol 100 mg tablet 100 mg PO DAILYCM gout 11/12/14 10/11/24 History furosemide 40 mg tablet 40 mg PO DAILY 11/12/14 Unknown History clonidine HCl 0.2 mg tablet 0.1 mg PO BID bp 06/29/15 07/06/15 07:45 History losartan 100 mg tablet 100 mg PO DAILY 06/29/15 Unknown History amlodipine 2.5 mg tablet 2.5 mg PO DAILY bp 10/12/24 10/11/24 History atenolol 25 mg tablet 25 mg PO BID hr 10/12/24 10/11/24 History cholecalciferol (vitamin D3) 1,250 1,250 mcg PO QWEEK supplement 10/12/24 10/10/24 History mcg (50,000 unit) capsule duloxetine 30 mg capsule,delayed 30 mg PO QHS mood 10/12/24 Unknown History release folic acid 1 mg tablet 2 mg PO DAILY supplement 10/12/24 Unknown History levothyroxine 25 mcg tablet 25 mcg PO DAILY disorder of 10/12/24 Unknown History thyroid gland potassium chloride 10 mEq 10 meq PO BID 10/12/24 Unknown History tablet,extended release(part/cryst) (Klor-Con M) rosuvastatin 10 mg tablet 10 mg PO DAILY cholesterol 10/12/24 Unknown History apremilast 30 mg tablet (Otezla) 30 mg PO BID psoriasis 10/13/24 Unknown History famotidine 20 mg tablet (Acid 20 mg PO DAILY gerd 10/13/24 Unknown History Controller) mecobalamin (vitamin B12) 1,000 1,000 mcg PO DAILY supplement 10/13/24 Unknown History mcg chewable tablet (B12 Active) vit C 250 mg-vit E 90 mg-zinc 40 1 tab PO BID supplement 10/13/24 Unknown History mg-copper 1 [id number] capsule (PreserVision AREDS-2) Allergy/AdvReac Type Severity Reaction Status Date / Time amlodipine besylate (From Allergy Other Verified 10/12/24 12:50 Norvasc) bumetanide (From Bumex) Allergy Other Verified 10/12/24 12:50 cephalexin monohydrate (From Allergy Hives Verified 10/12/24 12:50 Keflex) colchicine Allergy Hives Verified 10/12/24 12:50 hydrochlorothiazide Allergy Hives Verified 10/12/24 12:50 hydrocortisone acetate (From Allergy Other Verified 10/12/24 12:50 Hydrocortone Acetate) minoxidil Allergy Other Verified 10/12/24 12:50 naproxen Allergy Rash Verified 10/12/24 12:50 ofloxacin (From Floxin) Allergy Shortness Verified 10/12/24 12:50 of breath Penicillins (PCN) Allergy Rash Verified 10/12/24 12:50 Sulfa (Sulfonamide Allergy Rash Verified 10/12/24 12:50 Antibiotics) Family History Son Diabetes CAD (coronary artery disease) Other H/O: hysterectomy Surgical History Hx of cholecystectomy Social History Smoking Status: Never smoker ROS Constitutional Constitutional: Denies fever(s) or weight loss Eyes Eyes: Reports systems reviewed and no addt'l complaints, except as documented ENT HEENT: Reports systems reviewed and no addt'l complaints, except as documented Cardiovascular Cardiovascular: Denies chest pain at rest, chest pain with activity, dyspnea at rest, dyspnea on exertion, edema, palpitations or paroxysmal nocturnal dyspnea Respiratory/Chest Respiratory/Chest: Denies dyspnea on exertion, productive cough, shortness of breath at rest or shortness of breath with exertion Gastrointestinal Gastrointestinal: Denies change in bowel habits, nausea, vomiting or weight changes Genitourinary Genitourinary: Denies difficulty urinating Musculoskeletal Musculoskeletal: Denies joint stiffness or muscle weakness Integumentary Integumentary: Denies lesions Neurologic Neurologic: Denies dizziness or syncope Psychiatric Psychiatric: Denies anxiety Endocrine Endocrinology: Denies excessive sweating or fatigue Hematologic/Lymphatic Hematologic/Lymphatic: Denies anemia Allergic/Immunologic Allergic/Immunologic: Denies seasonal rhinorrhea Physical Exam Const alert, oriented x3 and no apparent distress General Appearance: cooperative HEENT hearing grossly normal bilaterally Head and Scalp: atraumatic Eyes EOMs intact bilaterally Neck General: normal visual inspection Chest inspection of chest normal and palpation of chest normal Resp normal respiratory effort Auscultation: clear to auscultation bilaterally Cardio S1 normal heart sound and S2 normal heart sound Jugular Venous Distention: JVD Rhythm: abnormal rhythm irregularly irregular GI normal to inspection, nondistended, normoactive bowel sounds Extremity normal capillary refill and no pedal edema Peripheral Pulses: Yes pulses 2+ throughout and femoral pulses present Skin no rashes or lesions noted Neuro oriented x3 and CN's II-XII intact bilaterally Psych Appearance: grossly normal and appropriate Risk Stratification Risk Stratification Applicable: No Objective Data Vital Signs: Vital Signs Temp Pulse Resp BP Pulse Ox O2 Del Method O2 Flow Rate 97.8 F 124 H 19 H 138/100 H 95 Nasal Cannula 2 10/16/24 08:47 10/16/24 09:05 10/16/24 08:47 10/16/24 08:47 10/16/24 08:47 10/16/24 08:47 10/16/24 08:47 Oxygen Flow Rate (L/min) 2 Oxygen Delivery Method Nasal Cannula Weight: 153 lb 7.068 oz Body Mass Index (BMI) 27.1 Intake & Output: Intake and Output for Last 24 Hours 10/14/24 10/15/24 10/16/24 23:59 23:59 23:59 Intake Total 1596.00 / 1831.00 1197.75 / 1197.75 Output Total 600 / 600 Balance 996.00 / 1231.00 1197.75 / 1197.75 Lab / Micro Data 10/16/24 04:15 10/16/24 04:15 Labs: Laboratory Results - last 24 hr 10/16/24 04:15: WBC 11.2 H, RBC 4.85, Hgb 13.8, Hct 42.4, MCV 87.4, MCH 28.5, MCHC 32.5, RDW Std Deviation 49.1 H, RDW Coeff of Akin 15.4 H, Plt Count 187, MPV 11.2, Immature Gran % (Auto) 0.800, Neut % (Auto) 74.8 H, Lymph % (Auto) 17.7 L, Stafford % (Auto) 5.0, Eos % (Auto) 1.2, Baso % (Auto) 0.5, Absolute Neuts (auto) 8.4 H, Absolute Lymphs (auto) 1.99, Nucleated RBC % 0, Atypical Lymphocytes 1+, Sodium 132 L, Potassium 4.1, Chloride 99, Carbon Dioxide 25.0, Anion Gap 7, BUN 26 H, Creatinine 1.08 H, Estim Creat Clear Calc 35.64, Est GFR (MDRD) Af Amer 62, Est GFR (MDRD) Non-Af 51 L, BUN/Creatinine Ratio 24.1 H, Glucose 140 H, Calcium 9.3 Micro: Microbiology 10/13/24 18:13 Blood Culture (Wb) - Left Hand Blood Culture - Preliminary No growth in 48 hours. Cardiology Labs/Tests 10/16/24 04:15: WBC 11.2 H, RBC 4.85, Hgb 13.8, Hct 42.4, MCV 87.4, MCH 28.5, MCHC 32.5, Plt Count 187, MPV 11.2, Immature Gran % (Auto) 0.800, Neut % (Auto) 74.8 H, Lymph % (Auto) 17.7 L, Stafford % (Auto) 5.0, Eos % (Auto) 1.2, Baso % (Auto) 0.5, Absolute Neuts (auto) 8.4 H, Nucleated RBC % 0, Sodium 132 L, Potassium 4.1, Chloride 99, Carbon Dioxide 25.0, Anion Gap 7, BUN 26 H, C reatinine 1.08 H, Est GFR (MDRD) Af Amer 62, Est GFR (MDRD) Non-Af 51 L, B UN/Creatinine Ratio 24.1 H, Glucose 140 H, Calcium 9.3 Rhythm: EKG: ECHO: Stress Test: Cardiac Cath: PCI: CT Surgery: Holter monitor: EPS: PPM: CXR: Chest CT Scan:
[2024-10-16] MEDS: Amiodarone 200 MG Tablet PO ×2 (10:33→21:07)
[2024-10-16] MEDS: Metoprolol Tartrate 50 MG Tablet PO (21:07)
[2024-10-16] MEDS: DULoxetine Hcl 30 MG Capsule PO (21:08)
[2024-10-16] MEDS: Atorvastatin Calcium 20 MG Tablet PO (21:08)
[2024-10-17] VITALS (10 sets, daily range): BP systolic 127–144; BP diastolic 80–102; PULSE 76–114; RESP 15–20; TEMP 36.5–36.8; O2SAT 94–99
[2024-10-17] MEDS: Dicyclomine 10 MG Capsule PO ×4 (05:39→21:11)
[2024-10-17] MEDS: Levothyroxine 25 MCG TABLET PO (05:39)
[2024-10-17] MEDS: Budesonide Respules 0.5 MG/2 ML AMPUL.NEB. INHALATION ×2 (07:03→17:38)
--- NOTE | 2024-10-17 07:28 | PCM.PN.HOSP ---
Reason for Visit Reason for Visit: Diagnoses Other specified viral diseases (10/12/24) Essential (primary) hypertension (10/12/24) Unspecified atrial fibrillation (10/12/24) Subjective Subjective Patient seen respiratory symptoms continue to improve however heart rate still remains uncontrolled. Seen and evaluated by cardiology amiodarone added to patient rate controlling agent with discontinuation of diltiazem Objective Data Objective Data Vital Signs: Vital Signs Temp Pulse Resp BP Pulse Ox O2 Del Method O2 Flow Rate 97.7 F L 99 18 144/102 H 95 Nasal Cannula 2 10/17/24 03:40 10/17/24 03:40 10/17/24 03:40 10/17/24 03:40 10/17/24 03:40 10/17/24 03:40 10/17/24 03:40 Oxygen Flow Rate (L/min) 2 Oxygen Delivery Method Nasal Cannula Weight: 69.6 kg Body Mass Index (BMI) 27.1 Intake & Output: Intake and Output for Last 24 Hours 10/15/24 10/16/24 10/17/24 23:59 23:59 23:59 Intake Total 1197.75 / 1197.75 1000 / 1000 Balance 1197.75 / 1197.75 1000 / 1000 Lab / Micro Data 10/16/24 04:15 10/16/24 04:15 Labs: Laboratory Results - last 24 hr 10/16/24 04:15: Atypical Lymphocytes 1+ Micro: Microbiology 10/13/24 18:13 Blood Culture (Wb) - Left Hand Blood Culture - Preliminary No growth in 48 hours. 10/13/24 18:35 Mucosa - Nose Coronavirus COVID-19 PCR - Final 10/12/24 14:35 Mucosa - Nose SARS-CoV-2, Influenza & RSV (PCR) - Final RSV Physical Exam Narrative GENERAL: cooperative HEENT: Atraumatic; normocephalic EYES; Anicteric, Normal Conjunctiva NECK; supple, normal thyroid, RESPIRATORY: Diminished to auscultation CARDIOVASCULAR: Irregular S1-S2 GI: soft, normoactive bowel sounds, : No Renal angle tenderness; EXTREMITIES: No edema, no clubbing, MUSCULOSKELETAL: no muscle wasting NEURO: Awake; no lateralizing signs. SKIN: No Rash PSYCH; Flat affect Assessment & Plan Assessment/Plan (1) Atrial fibrillation with RVR: (2) RSV (respiratory syncytial virus infection): (3) Hypertension: PLAN: Plan Patient is an 84-year-old lady who was sent from an urgent care center in the ED after she was found to be in A-fib with RVR. She had presented to the urgent care center for evaluation of cough. RSV assay came back positive 1. New onset atrial fibrillation with rapid ventricular response ? Patient was started on Cardizem drip admitted to monitored bed titrated to keep heart rate less than 100. As part of patient's evaluation serial cardiac enzymes 2D echo ordered. Patient was weaned off the Cardizem drip and started on scheduled Cardizem. With patient [id number] score being 3 patient was started on systemic anticoagulation initially with Lovenox switched to apixaban ? 10/14/2024; patient Cardizem drip had to be reintroduced after she went back into A-fib with RVR. Heart rate still remains elevated. Patient is currently on maximum dose of Cardizem. ? 10/15/2024; Cardizem drip discontinued added Lopressor to patient treatment regimen ? 10/16/2024 Patient had been started on beta-blockers the day prior. With patient heart rate still remains elevated consult was placed to cardiology ? 10/17/2024;Seen and evaluated by cardiology amiodarone added to patient rate controlling agent with discontinuation of diltiazem 2. RSV infection ? Treated symptomatically. With patient having active wheezing inhaled budesonide added to patient's treatment regimen ? 10/13/2024; patient still remains symptomatic with high-grade fevers. ? 10/15/2024; continues to improve with regards to his symptoms 3. Hypertension ? Blood pressure controlled, home medications continued with dose adjustment as needed 4. Gout ? Patient is on allopurinol continue 5. Hypothyroidism ? Patient is on levothyroxine home dose continued 6. Rheumatoid arthritis ? Patient not on any Biologics however symptoms remain stable 7. DVT prophylaxis ? Patient was started on therapeutic Lovenox as part of management of her A-fib Time spent in the patient's overall evaluation,decision-making process, review of diagnostic data, adjustment of management, discussion with other providers, nursing nursing and ancillary staff involved in patient's care documentation, 36 Minutes Charges/Coding Visit Charges Inpatient E&M: 05009 Subs Hosp L2
--- NOTE | 2024-10-17 08:08 | PN.CARD_ITS ---
Subjective Subjective The patient reports that she is feeling fine today. She is resting comfortably recumbent position. She is not been up and out in the halls. Heart rate is slightly better controlled at 110 bpm. Objective Data Vital Signs: Vital Signs Temp Pulse Resp BP Pulse Ox O2 Del Method O2 Flow Rate 97.8 F 114 H 15 136/95 H 94 Nasal Cannula 2 10/17/24 07:57 10/17/24 07:57 10/17/24 07:57 10/17/24 07:57 10/17/24 07:57 10/17/24 08:05 10/17/24 08:05 Oxygen Flow Rate (L/min) 2 Oxygen Delivery Method Nasal Cannula Weight: 153 lb 7.068 oz Body Mass Index (BMI) 27.1 Intake & Output: Intake and Output for Last 24 Hours 10/15/24 10/16/24 10/17/24 23:59 23:59 23:59 Intake Total 1197.75 / 1197.75 1000 / 1000 Balance 1197.75 / 1197.75 1000 / 1000 Lab / Micro Data Attestation: I reviewed the patient's lab results. 10/16/24 04:15 10/16/24 04:15 Labs: Laboratory Results - last 24 hr 10/16/24 04:15: Atypical Lymphocytes 1+ Micro: Microbiology 10/13/24 18:13 Blood Culture (Wb) - Left Hand Blood Culture - Preliminary No growth in 48 hours. Rhythm Strip Rhythm Strip: A-fib Rate: 110 Cardiology Labs/Tests Rhythm: EKG: ECHO: Stress Test: Cardiac Cath: PCI: CT Surgery: Holter monitor: EPS: PPM: CXR: Chest CT Scan: Physical Exam Const alert and oriented x3 HEENT normocephalic Eyes EOMs intact bilaterally Neck supple Chest inspection of chest normal Resp normal respiratory effort and clear to auscultation bilaterally Cardio Rate: tachycardic Rhythm: abnormal rhythm irregularly irregular Heart Sounds: S1 normal and S2 normal; Negative for gallop or murmur Extremity no pedal edema Skin no rashes or lesions noted Neuro Neuro Narrative: Alert and oriented x 3 Psych mental status grossly normal Assessment & Plan Assessment/Plan (1) Atrial fibrillation with RVR: PLAN: Patient presented with atrial fibrillation with rapid ventricular spots in the 150 bpm range October 12, 2024. It appears by her history she developed a viral syndrome Julissa time 2023. She was actually evaluated by [facility] cardiology in August and there was no mention of atrial fibrillation at that point in time. She apparently underwent a stress test. The patient denies ever having a heart catheterization done. She has been evaluated and treated by Dr. Steiner at [facility] for several years. Currently the patient's heart rate is better controlled but is still 110 bpm. This is on metoprolol 50 mg twice daily diltiazem and amiodarone 200 mg twice daily. At this point time I would recommend that we increase metoprolol to 100 mg twice daily alternating with amiodarone 200 mg twice daily every 6 hours. The diltiazem will be discontinued. The patient has been on admixed about 5 mg twice daily since admission October 12, 2024. It appears she may have been in atrial fibrillation for a week prior to that time possibly longer. The patient's weight is greater than 60 kg and her creatinine is 1.08. Long-term plan would be to maintain oral anticoagulation uninterrupted for 3 to 4 weeks. She will then be reevaluated in Dr. Steiner's office to determine subsequent interventions that may be indicated including direct-current cardioversion versus alternative therapies. (2) Hypertension: QUALIFIERS: Hypertension type: primary hypertension Qualified Code(s): I10 - Essential (primary) hypertension PLAN: Blood pressure has been adequately controlled on her current medical therapy should be continued on the same meds other than discontinuing diltiazem which was started on this admission. PLAN: Plan 1. Increase metoprolol to 100 mg twice daily. 2. Continue amiodarone 200 mg twice daily. Will alternate metoprolol and amiodarone every 6 hours. 3. Discontinue diltiazem. 4. Increase activity as tolerated. 5. Should be able to discharge in the next 24 hours to be followed up by her previously already arranged appointment the end of October [address] Steiner at [facility]. Charges/Coding Visit Charges Inpatient E&M: 82247 Subs Hosp L3
[2024-10-17] MEDS: Metoprolol Tartrate 100 MG Tablet PO ×2 (09:13→21:11)
[2024-10-17] MEDS: Cholecalciferol (VIT D3) 25 MCG TABLET (1,000 UNITS) PO (09:14)
[2024-10-17] MEDS: Furosemide 40 MG Tablet PO (09:14)
[2024-10-17] MEDS: Losartan Potassium 50 MG Tablet PO (09:14)
[2024-10-17] MEDS: APIXABAN 5 MG TABLET PO ×2 (09:14→21:11)
[2024-10-17] MEDS: Allopurinol 100 MG Tablet PO (09:14)
[2024-10-17] MEDS: Famotidine 20 MG Tablet PO (09:14)
[2024-10-17] MEDS: Folic Acid 1 MG Tablet 2 MG PO (09:14)
[2024-10-17] MEDS: Amiodarone 200 MG Tablet PO ×2 (09:14→21:11)
[2024-10-17] MEDS: guaiFENesin/D-Methorphan TAB.SR.12H 1 TABLET PO ×2 (09:15→21:11)
[2024-10-17] MEDS: Potassium Chloride Oral Tablet 20 MEQ PO ×2 (09:15→17:08)
[2024-10-17] MEDS: Atorvastatin Calcium 20 MG Tablet PO (21:11)
[2024-10-17] MEDS: DULoxetine Hcl 30 MG Capsule PO (21:11)
[2024-10-18 01:00] VITALS: PULSE 65
[2024-10-18 02:00] VITALS: BP 141/105; PULSE 84; RESP 14; TEMP 36.8; O2SAT 93
[2024-10-18] MEDS: Dicyclomine 10 MG Capsule PO ×2 (06:23→11:33)
[2024-10-18] MEDS: Levothyroxine 25 MCG TABLET PO (06:23)
[2024-10-18 07:00] VITALS: PULSE 80; RESP 17; O2SAT 98
[2024-10-18] MEDS: Budesonide Respules 0.5 MG/2 ML AMPUL.NEB. INHALATION (07:00)
[2024-10-18 07:23] VITALS: BP 120/70; PULSE 99; RESP 17; TEMP 36.6; O2SAT 90
[2024-10-18 07:34] VITALS: O2SAT 91; O2SAT 93
[2024-10-18] MEDS: Cholecalciferol (VIT D3) 25 MCG TABLET (1,000 UNITS) PO ×2 (07:36→07:39)
[2024-10-18] MEDS: Famotidine 20 MG Tablet PO (07:39)
[2024-10-18] MEDS: guaiFENesin/D-Methorphan TAB.SR.12H 1 TABLET PO (07:39)
[2024-10-18] MEDS: Potassium Chloride Oral Tablet 20 MEQ PO (07:39)
[2024-10-18] MEDS: Folic Acid 1 MG Tablet 2 MG PO (07:39)
[2024-10-18 07:40] VITALS: PULSE 115
[2024-10-18] MEDS: Metoprolol Tartrate 100 MG Tablet PO (07:40)
[2024-10-18] MEDS: Furosemide 40 MG Tablet PO (07:40)
[2024-10-18] MEDS: Allopurinol 100 MG Tablet PO (07:40)
[2024-10-18] MEDS: APIXABAN 5 MG TABLET PO (07:40)
[2024-10-18] MEDS: Amiodarone 200 MG Tablet PO (07:40)
[2024-10-18] MEDS: Losartan Potassium 50 MG Tablet PO (07:40)
--- NOTE | 2024-10-18 08:17 | PCM.PN.CARD ---
Subjective Subjective Patient's heart rates come under much better control on the combination of metoprolol tartrate 100 mg twice daily and amiodarone 200 mg twice daily. The patient has been up in the room she remains in isolation due to viral syndrome. The patient denies any syncope or near syncope. She occasionally feels weak but this is unchanged from prior to her current event. From a cardiovascular standpoint the patient appears to be stable and amenable to discharge. Objective Data Vital Signs: Vital Signs Temp Pulse Resp BP Pulse Ox O2 Del Method O2 Flow Rate 98 F 115 H 17 120/70 90 Room Air 2 10/18/24 07:23 10/18/24 07:40 10/18/24 07:23 10/18/24 07:23 10/18/24 07:23 10/18/24 07:48 10/18/24 02:15 FiO2 2 10/18/24 02:00 Oxygen Flow Rate (L/min) 2 Oxygen Delivery Method Room Air Weight: 153 lb 7.068 oz Body Mass Index (BMI) 27.1 Intake & Output: Intake and Output for Last 24 Hours 10/16/24 10/17/24 10/18/24 23:59 23:59 23:59 Intake Total 1000 / 1000 1040 / 1040 Balance 1000 / 1000 1040 / 1040 Lab / Micro Data Attestation: I reviewed the patient's lab results. 10/16/24 04:15 10/16/24 04:15 Rhythm Strip Rhythm Strip: A-fib Rate: 85 Cardiology Labs/Tests Rhythm: EKG: ECHO: Stress Test: Cardiac Cath: PCI: CT Surgery: Holter monitor: EPS: PPM: CXR: Chest CT Scan: Physical Exam Const alert and oriented x3 HEENT normocephalic Eyes EOMs intact bilaterally Neck no JVD Chest inspection of chest normal Resp normal respiratory effort and clear to auscultation bilaterally Cardio regular rate Rhythm: abnormal rhythm irregularly irregular Heart Sounds: S1 normal and S2 normal; Negative for gallop, murmur or rub Extremity no pedal edema Neuro Neuro Narrative: Alert and oriented x 3 Psych mental status grossly normal Assessment & Plan Assessment/Plan (1) Atrial fibrillation with RVR: PLAN: Patient remains in atrial fibrillation with a much better controlled ventricular response. She does go up in the 130s at times when she is up and ambulatory. At times it had dropped down in the 60 bpm range when she was recumbent in bed at night. The patient is tolerating the current medical regimen metoprolol tartrate 100 mg twice daily alternating with amiodarone 200 mg twice daily. The patient is scheduled to see Dr. Steiner her [facility] Certified Lactation Educator the end of October 2024. She will follow-up with him there and then further determination will be made pending the recovery from her RSV infection as to how and what next steps would be appropriate in treating her atrial fibrillation. It is possible she will spontaneously convert to sinus rhythm she is currently being maintained on Eliquis 5 mg twice daily which is the appropriate dose given her creatinine and body weight. (2) RSV (respiratory syncytial virus infection): QUALIFIERS: RSV infection type: unspecified Qualified Code(s): B33.8 - Other specified viral diseases PLAN: Treatment is per the primary service. (3) Hypertension: QUALIFIERS: Hypertension type: primary hypertension Qualified Code(s): I10 - Essential (primary) hypertension PLAN: Patient's blood pressure is adequate controlled on her current medical therapy here in the hospital. I would recommend she be continued on her current meds and make certain that she avoids her home atenolol and amlodipine. PLAN: Plan 1. From a cardiovascular standpoint the patient can be discharged to home. 2. The patient should follow-up with her primary mining professionals Dr. Leandro Steiner at [facility] per her previous arranged appointment the end of October 2024. 3. At her follow-up with Dr. Steiner she should be able to determine at that time what the next appropriate therapy would be if she remains in atrial fibrillation after the RSV infection has cleared. 4. The patient should be maintained on Eliquis 5 mg twice daily. 5. Should the patient develop symptoms in the interim prior to seeing Dr. Silvestre I have given her my card to call our office for follow-up. Charges/Coding Visit Charges Inpatient E&M: 25678 Subs Hosp L2
--- NOTE | 2024-10-18 08:30 | PCM.DC.SUM ---
Providers Date of Admission: 10/12/24 Date of Discharge: 10/18/24 Primary Care Physician: Dr. Atul Harvey, Consultations 10/16/24 09:36 Consult: Cardiology Routine Consulting Provider: Mario Hagen Reason for Consult: afib EMERGENT Consult: No MD Notified: Yes Date Notified: 10/16/24 Time Notified: 09:36 Method of Notification: Text Reason For Visit: RSV, AFIB RVR Diagnosis Discharge Diagnosis (1) Atrial fibrillation with RVR: Status: Acute Code(s): I48.91 - Unspecified atrial fibrillation (2) RSV (respiratory syncytial virus infection): Status: Acute Code(s): B33.8 - Other specified viral diseases Qualifiers: RSV infection type: unspecified Qualified Code(s): B33.8 - Other specified viral diseases (3) Hypertension: Status: Chronic Code(s): I10 - Essential (primary) hypertension Qualifiers: Hypertension type: primary hypertension Qualified Code(s): I10 - Essential (primary) hypertension Plan Patient is an 84-year-old lady who was sent from an urgent care center in the ED after she was found to be in A-fib with RVR. She had presented to the urgent care center for evaluation of cough. RSV assay came back positive 1. New onset atrial fibrillation with rapid ventricular response ? Patient was started on Cardizem drip admitted to monitored bed titrated to keep heart rate less than 100. As part of patient's evaluation serial cardiac enzymes 2D echo ordered. Patient was weaned off the Cardizem drip and started on scheduled Cardizem. With patient [id number] score being 3 patient was started on systemic anticoagulation initially with Lovenox switched to apixaban ? 10/14/2024; patient Cardizem drip had to be reintroduced after she went back into A-fib with RVR. Heart rate still remains elevated. Patient is currently on maximum dose of Cardizem. ? 10/15/2024; Cardizem drip discontinued added Lopressor to patient treatment regimen ? 10/16/2024 Patient had been started on beta-blockers the day prior. With patient heart rate still remains elevated consult was placed to cardiology ? 10/17/2024;Seen and evaluated by cardiology amiodarone added to patient rate controlling agent with discontinuation of diltiazem ? 10/18/2024; patient heart rate control did improve following adjustment of therapy by cardiology. Plan is for patient to follow-up with primary care 2. RSV infection ? Treated symptomatically. With patient having active wheezing inhaled budesonide added to patient's treatment regimen ? 10/13/2024; patient still remains symptomatic with high-grade fevers. ? 10/15/2024; continues to improve with regards to his symptoms 3. Hypertension ? Blood pressure controlled, home medications continued with dose adjustment as needed 4. Gout ? Patient is on allopurinol continue 5. Hypothyroidism ? Patient is on levothyroxine home dose continued 6. Rheumatoid arthritis ? Patient not on any Biologics however symptoms remain stable 7. DVT prophylaxis ? Patient was started on therapeutic Lovenox as part of management of her A-fib Time spent in the patient's overall evaluation,decision-making process, review of diagnostic data, adjustment of management, discussion with other providers, nursing nursing and ancillary staff involved in patient's care documentation, 36 Minutes Medications at Discharge Home Medications allopurinol 100 mg tablet 100 mg PO DAILYCM gout 11/12/14 furosemide 40 mg tablet 40 mg PO DAILY 11/12/14 cholecalciferol (vitamin D3) 1,250 mcg (50,000 unit) capsule 1,250 mcg PO QWEEK supplement 10/12/24 duloxetine 30 mg capsule,delayed release 30 mg PO QHS mood 10/12/24 folic acid 1 mg tablet 2 mg PO DAILY supplement 10/12/24 levothyroxine 25 mcg tablet 25 mcg PO DAILY disorder of thyroid gland 10/12/24 potassium chloride 10 mEq tablet,extended release(part/cryst) (Klor-Con M) 10 meq PO BID 10/12/24 rosuvastatin 10 mg tablet 10 mg PO DAILY cholesterol 10/12/24 apremilast 30 mg tablet (Otezla) 30 mg PO BID psoriasis 10/13/24 famotidine 20 mg tablet (Acid Controller) 20 mg PO DAILY gerd 10/13/24 mecobalamin (vitamin B12) 1,000 mcg chewable tablet (B12 Active) 1,000 mcg PO DAILY supplement 10/13/24 vit C 250 mg-vit E 90 mg-zinc 40 mg-copper 1 [id number]-pmggzv-hhuxvs capsule (PreserVision AREDS-2) 1 tab PO BID supplement 10/13/24 acetaminophen 325 mg tablet 650 mg (2 x 325 mg) PO Q6H PRN PRN Pain 1-10 Or Fever>100.7 #0 tabs 10/18/24 amiodarone 200 mg tablet 200 mg PO BID 60 days #120 tabs 10/18/24 apixaban 5 mg tablet (Eliquis) 5 mg PO BID #60 tabs 10/18/24 guaifenesin 1,200 mg tablet, extended release 12 hr (Mucinex) 1,200 mg PO BID #20 tabs 10/18/24 losartan 50 mg tablet 50 mg PO DAILY #60 tabs 10/18/24 metoprolol tartrate 100 mg tablet 100 mg PO BID #60 tabs 10/18/24 Physical Exam Narrative GENERAL: cooperative HEENT: Atraumatic; normocephalic EYES; Anicteric, Normal Conjunctiva NECK; supple, normal thyroid, RESPIRATORY: Diminished to auscultation CARDIOVASCULAR: Irregular S1-S2 GI: soft, normoactive bowel sounds, : No Renal angle tenderness; EXTREMITIES: No edema, no clubbing, MUSCULOSKELETAL: no muscle wasting NEURO: Awake; no lateralizing signs. SKIN: No Rash PSYCH; Flat affect Weight / BMI Weight Weight: 69.6 kg Body Mass Index (BMI) 27.1 ABG / Lab / Microbiology Data 10/16/24 04:15 10/16/24 04:15 Microbiology: Microbiology 10/13/24 18:13 Blood Culture (Wb) - Left Hand Blood Culture - Preliminary No growth in 48 hours. 10/13/24 18:35 Mucosa - Nose Coronavirus COVID-19 PCR - Final 10/12/24 14:35 Mucosa - Nose SARS-CoV-2, Influenza & RSV (PCR) - Final RSV D/C Instructions DC O2, CPAP, BIPAP Needs RN Home O2 Qualification: Home O2 Qualification: Is the patient on home oxygen No 10/18/24 07:34 Home O2 Qualification: AT REST 1- Pulse Ox at rest 91 10/18/24 07:34 Home O2 Qualification: WITH AMBULATION 1- Pulse Ox with ambulation 93 10/18/24 07:34 1- Oxygen Flow Rate with 0 10/18/24 07:34 ambulation PSN CPAP & BiPAP: BiPAP & CPAP Settings per PSN Fraction of Inspired Oxygen ( 2 10/18/24 02:00 FIO2) Home O2 Discharge instructions: No Meaningful Use Info Meaningful Use Meaningful Use Diagnoses (Choose all that apply): None applicable Ischemic Stroke Statin Dosing Therapy Reference: STATIN DOSE THERAPY REFERENCE: * Patients > 75 years receive moderate or high dose statin therapy. * Patients 75 years or YOUNGER should receive HIGH intensity statin dose unless contraindicated. You will be required to document reason for non-treatment if statin daily dose does not meet guidelines. HIGH DOSE STATIN THERAPY DAILY Atorvastatin > than or = to 40 mg Rosuvastatin > than or = to 20 mg Amlodipine + Atorvastatin > than or = to 2.5/40 mg Ezetimibe + Simvastatin 10/80 mg Simvastatin 80mg Discharge Plan Admission Admit Date/Time: 10/12/24 16:26 Attending Provider: Leandro Ledezma Primary Care Provider: Atul Harvey Consulting Providers: Doug Tubbs; Mario Hagen Discharge Orders/Prescriptions Prescriptions: New losartan 50 mg Tablet 50 mg PO DAILY Qty: 60 0RF acetaminophen 325 mg Tablet 650 mg PO Q6H PRN PRN (Reason: Pain 1-10 Or Fever>100.7) Qty: 0 0RF metoprolol tartrate 100 mg Tablet 100 mg PO BID Qty: 60 0RF amiodarone 200 mg Tablet 200 mg PO BID 60 Days Qty: 120 0RF Eliquis 5 mg Tablet 5 mg PO BID Qty: 60 0RF guaifenesin [Mucinex] 1,200 mg tablet extended release 12hr 1,200 mg PO BID Qty: 20 0RF Continued furosemide 40 MG tablet 40 mg PO DAILY Patient Comments: water pill allopurinol 100 MG tablet 100 mg PO DAILYCM Patient Comments: gout potassium chloride [Klor-Con M10] 10 mEq tablet,ER particles/crystals 10 meq PO BID duloxetine 30 mg capsule,delayed release(DR/EC) 30 mg PO QHS folic acid 1 mg tablet 2 mg PO DAILY levothyroxine 25 mcg tablet 25 mcg PO DAILY cholecalciferol (vitamin D3) 1,250 mcg (50,000 unit) capsule 1,250 mcg PO QWEEK rosuvastatin 10 mg tablet 10 mg PO DAILY famotidine [Acid Controller] 20 mg tablet 20 mg PO DAILY PreserVision AREDS-2 250-90-40-1 mg capsule 1 tab PO BID mecobalamin (vitamin B12) [B12 Active] 1,000 mcg tablet,chewable 1,000 mcg PO DAILY Otezla 30 mg tablet 30 mg PO BID Discontinued clonidine HCl 0.2 MG tablet 0.1 mg PO BID Patient Comments: bp losartan 100 MG tablet 100 mg PO DAILY Patient Comments: bp amlodipine 2.5 mg tablet 2.5 mg PO DAILY atenolol 25 mg tablet 25 mg PO BID Referrals / Follow Up: Atul Harvey DO [Primary Care Provider] - Within 2 Weeks Disposition Disposition (needs filled in before D/C Order can be placed): Home, Self Care Charges/Coding Visit Charges Inpatient E&M: 52207 Disch Hosp >30min
--- NOTE | 2024-10-18 10:55 | CASEMGMT ---
Patient has order for discharge. Patient is discharging on Eliquis, [facility] called [facility] retail and copay is $145.43, savings card applied. RN CM in to patient's room to discuss discharge planning. Patient is up independent in room. RN CRUZITO updated patient regarding Eliquis copay and savings card applied. Patient denied needs or help at discharge. Patient had no further questions or concerns. Patient gave permission to call daughter Noemy to discuss discharge plan. RN CRUZITO called daughter and updated regarding Eliquis copay, savings card applied, and patient denying further needs or help at discharge. Daughter states the she lives next door to patient and denied needs or help at discharge. Daughter had no further questions or concerns.
--- NOTE | 2024-10-18 13:33 | PHA.DC_ITS ---
Pharmacy [place] Med Reconciliation Pharmacy Service has performed discharge medication reconciliation for this patient. Medication education papers prepared, unable to college and career counselor prior to discharge. The patient's discharge medication list was reviewed for discrepancies and discrepancies were resolved. Medications at Discharge Home Medications allopurinol 100 mg tablet 100 mg PO DAILYCM gout 11/12/14 furosemide 40 mg tablet 40 mg PO DAILY diuretic 11/12/14 cholecalciferol (vitamin D3) 1,250 mcg (50,000 unit) capsule 1,250 mcg PO QWEEK supplement 10/12/24 duloxetine 30 mg capsule,delayed release 30 mg PO QHS mood 10/12/24 folic acid 1 mg tablet 2 mg PO DAILY supplement 10/12/24 levothyroxine 25 mcg tablet 25 mcg PO DAILY disorder of thyroid gland 10/12/24 potassium chloride 10 mEq tablet,extended release(part/cryst) (Klor-Con M) 10 meq PO BID supplement 10/12/24 rosuvastatin 10 mg tablet 10 mg PO DAILY cholesterol 10/12/24 apremilast 30 mg tablet (Otezla) 30 mg PO BID psoriasis 10/13/24 famotidine 20 mg tablet (Acid Controller) 20 mg PO DAILY gerd 10/13/24 mecobalamin (vitamin B12) 1,000 mcg chewable tablet (B12 Active) 1,000 mcg PO DAILY supplement 10/13/24 vit C 250 mg-vit E 90 mg-zinc 40 mg-copper 1 sx-lusecx-gsstpz capsule (PreserVision AREDS-2) 1 tab PO BID supplement 10/13/24 acetaminophen 325 mg tablet 650 mg (2 x 325 mg) PO Q6H PRN PRN Pain 1-10 Or Fever>100.7 #0 tabs 10/18/24 amiodarone 200 mg tablet 200 mg PO BID 60 days #120 tabs 10/18/24 apixaban 5 mg tablet (Eliquis) 5 mg PO BID #60 tabs 10/18/24 guaifenesin 1,200 mg tablet, extended release 12 hr (Mucinex) 1,200 mg PO BID #20 tabs 10/18/24 losartan 50 mg tablet 50 mg PO DAILY #60 tabs 10/18/24 metoprolol tartrate 100 mg tablet 100 mg PO BID #60 tabs 10/18/24
== END 2024-10-18 13:23 | disposition home or self-care (01) | DRG 309 ==
LOC: ED 16:24 → PCU 10-13 06:56
PROVIDERS: Emergency Provider Emergency Medicine; PCP Student in an Organized Health Care Education/Training Program; Referring Provider Emergency Medicine; Visit Provider Internal Medicine
DX: I48.91 Unspecified atrial fibrillation (principal); J21.0 Acute bronchiolitis due to respiratory syncytial virus; N18.30 Chronic kidney disease, stage 3 unspecified; M06.9 Rheumatoid arthritis, unspecified; I12.9 Hypertensive chronic kidney disease with stage 1 through stage 4 chronic kidney disease, or unspecified chronic kidney disease; E03.9 Hypothyroidism, unspecified; M10.9 Gout, unspecified; Z88.2 Allergy status to sulfonamides; Z88.0 Allergy status to penicillin; Z88.1 Allergy status to other antibiotic agents; Z79.899 Other long term (current) drug therapy; Z79.890 Hormone replacement therapy
CPT/HCPCS: 36415; 71045; 71275; 80048; 83735; 84100; 84484; 85025; 87040; 87631; 87635; 93005; 93306; 94640; 94762; 99252; 99284; Q9957; Q9967; A4216; C8929; G0463; J1940; J2405

== ENCOUNTER → 2024-11-21 | Outpatient (CLI) | payer MEDICARE, SELFPAY ==
[2024-11-21 12:32] LABS: Absolute Lymphocyte Count 2.99 X10^3/uL (0.83-4.51); Absolute Neutrophil Count 5.5 X10^3/uL (2.0-7.7); Basophil# 0.08 X10^3/uL; Basophil% 0.8 % (0-1); Eosinophil# 0.08 X10^3/uL; Eosinophils% 0.8 % (0-5); Hematocrit 43.6 % (37-47); Hemoglobin 13.4 g/dL (12.0-15.0); Lymphocyte # 2.99 X10^3/ul (0.83-4.51); Lymphocyte % 31.1 % (19-41); Mean Corp Hgb Conc 30.7 g/dL (32-36); Mean Corpuscular Hgb 28.7 pg (27.0-32.0); Mean Corpuscular Volume 93.4 fL (81-99); Mean Platelet Vol. 10.8 fl (6.2-12.0); Monocyte# 0.87 X10^3/uL; Monocyte% 9.1 % (0-10); NRBC Flagged by Analyzer 0 % (0-5); Neutrophil # 5.51 X10^3/uL (2.7-7.7); Neutrophil % 57.4 % (47-70); Platelet Count 217 K/mm3 (150-450); RBC Distribution Width SD 58.4 fl (35.1-43.9); Red Blood Count 4.67 M/mm3 (4.2-5.4); White Blood Count 9.6 K/mm3 (4.4-11.0)
[2024-11-21 12:48] LABS: ALB/GLOB Ratio 0.6 RATIO (0.9-2.4); AST(SGOT) 30 U/L (15-37); Alanine Aminotransfer ALT/SGPT 40 U/L (13-56); Albumin, Serum 3.1 g/dL (3.2-5.0); Alkaline Phosphatase 117 U/L (45-117); Anion Gap 7 (5-15); BUN 20 mg/dL (7-18); BUN/Creat Ratio 17.5 RATIO (10-20); Calcium,Total 9.3 mg/dL (8.5-10.1); Chloride 102 mmol/L (98-107); Creatinine, Serum 1.14 mg/dL (0.55-1.02); EST Glomerular Filtration Rate 48 mL/min (>60); Est Glom Filt Rate - Afr Amer 58 mL/min (>60); Globulin 4.8 g/dL (2.2-4.2); Glucose 98 mg/dL (74-106); Potassium 3.4 mmol/L (3.5-5.1); Protein, Total 7.9 g/dL (6.4-8.2); Sodium Level 136 mmol/L (136-145)
== END | disposition home or self-care (01) ==
LOC: MTLAB 10:50
PROVIDERS: PCP Student in an Organized Health Care Education/Training Program; Referring Provider Internal Medicine Rheumatology; Visit Provider Internal Medicine Rheumatology
DX: L40.59 Other psoriatic arthropathy (principal); M79.7 Fibromyalgia; Z79.899 Other long term (current) drug therapy
CPT/HCPCS: 36415; 80053; 85025

== ENCOUNTER 2025-01-06 03:28 | Emergency (ER) | payer MEDICARE, SELFPAY ==
[2025-01-06] VITALS (14 sets, daily range): BP systolic 78–144; BP diastolic 53–89; PULSE 61–72; RESP 23–29; TEMP 36.1–36.4; O2SAT 85–99; BMI 27.8
--- NOTE | 2025-01-06 03:33 | CT_ITS ---
PROCEDURE: STROKE BRAIN/HEAD WITHOUT CONT 01/06/2025 REASON FOR EXAM: NEURO DEFICIT, ACUTE, STROKE SUSPECTED TECHNIQUE: Head CT without intravenous contrast. Coronal and Sagittal reconstruction series were provided. One or more dose reduction techniques were used (e.g., Automated exposure control, adjustment of the mA and/or kV according to patient size, use of iterative reconstruction technique. RADIATION DOSE SUMMARY: CTDlvol: 44.99 mGy DLP: 796.11 mGycm COMPARISON: None available FINDINGS: No intracranial hemorrhage or CT evidence of large vascular territory acute infarct. The ventricles are within limits and midline. Bilateral symmetric appearing white matter likely chronic small-vessel ischemic changes. Left side of the suprasellar cistern adjacent to the left parasellar carotid is a mildly hyperdense and heterogeneous ovoid extra-axial appearing lesion measuring approximately 1.3 x 1.3 x 0.9 cm axial 18, coronal 36 and sagittal 37 with likely considerations including a giant aneurysm or meningioma among others and requires further workup. Bilateral parasellar carotid and intracranial right vertebral calcification. Possible mucous retention cyst left maxillary sinus. Tiny fluid level left sphenoid sinus axial 12. Small amount of frothy material posterior right ethmoid air cell. Small osteoma left ethmoid air cell. Partial fluid opacification left mastoid tip. The right mastoid, remainder of the paranasal sinuses and orbits appear within limits. CT/STROKE Brain/Head without Cont IMPRESSION: Left side of the suprasellar cistern adjacent to the left parasellar carotid is a mildly hyperdense and heterogeneous ovoid extra-axial appearing lesion measuring approximately 1.3 x 1.3 x 0.9 cm axial 1 8, coronal 36 and sagittal 37 with likely considerations including a giant aneurysm or meningioma among others and requir es further workup. No intracranial hemorrhage or CT evidence of large vascular territory acute inf arct. Left paranasal sinus disease as above. Results discussed by myself verbally by phone to Dr. Freeman at 4 a.m. Reading Location: [facility]
--- NOTE | 2025-01-06 03:33 | EKG12_ITS ---
Test Reason : STROKE ALERT Blood Pressure : */* mmHG Vent. Rate : 70 BPM Atrial Rate : 70 BPM P-R Int : 236 ms QRS Dur : 86 ms QT Int : 474 ms P-R-T Axes : 47 -22 12 degrees QTcB Int : 511 ms Sinus rhythm with 1st degree A-V block Prolonged QT Abnormal ECG Confirmed by ALEJANDRO CERVANTES, ACE ([id number]), health editor ZAID CALLAHAN ([id number]) on 01/06/2025 8:26:03 AM Referred By: SHI Confirmed By: ACE ALLEN MD
--- NOTE | 2025-01-06 03:34 | CT_ITS ---
PROCEDURE: STROKE CTA HEAD AND NECK W/CON 01/06/2025 REASON FOR EXAM: NEURO DEFICIT, ACUTE, STROKE SUSPECTED TECHNIQUE: CTA imaging of the head and neck from the aortic arch to the skull vertex with intravenous contrast. Coronal and Sagittal reconstruction series were provided. 3D, 3D post processing, 3D reconstructions, Maximum intensity projection (MIPs) Volume rendering and Shaded surface rendering was provided. CONTRAST: 94 cc Isovue 370 One or more dose reduction techniques were used (e.g., Automated exposure control, adjustment of the mA and/or kV according to patient size, use of iterative reconstruction technique). RADIATION DOSE SUMMARY: CTDlvol: 20.76 mGy DLP: 616.81 mGycm COMPARISON: None available FINDINGS: Origin of the right brachiocephalic artery is not included on imaging. Will be included on the CTA of the chest. Atherosclerotic plaque formation at the origin and proximal left subclavian artery without flow significant stenosis. Just beyond the origin of the right common carotid artery is calcific plaque formation and undulation of the right subclavian artery with 7 mm infundibular widening of the area of the thyrocervical trunk origin for example axial 80. The left vertebral artery is dominant with a much smaller right vertebral artery and is patent throughout the cervical spine. The left and right common and internal carotid arteries are patent without flow significant stenosis or dissection. Mild bilateral carotid bulb calcific plaque formation without flow significant stenosis. The petrous and parasellar carotid arteries appear intact. The anterior and posterior circulations appear intact. No vessel cut off, flow significant stenosis or definite contrast filling aneurysm identified. Ovoid area of the left parasellar suprasellar extra-axial mass does not fill with and consideration would include meningioma and less likely a thrombosed giant aneurysm. May be further characterized with follow-up nonemergent MRI as warranted. Cervical spondylosis. CT/STROKE CTA Head AND Neck W/Con IMPRESSION: No flow significant stenosis, dissection, vessel cut off or contrast filling an eurysm identified as above. Reading Location: [id number]
--- NOTE | 2025-01-06 03:43 | CT_ITS ---
EXAM: ABDOMEN/PELVIS W IV CONT ONLY 01/06/2025 CLINICAL HISTORY: Pain left lower quadrant 2 back COMPARISON: None available TECHNIQUE: CT of the abdomen and pelvis with contrast and coronal and sagittal reformatted images. 97 cc Isovue 370 FINDINGS: The liver, adrenal glands and pancreas appear within limits. The gallbladder is not definitely identified. Small bilateral kidneys with dense appearing nephrograms can be seen with renal disease or ATN. No hydronephrosis. Possible bilateral renal cysts. Aortoiliac atherosclerotic changes without aneurysm or dissection. No bowel dilation or free air. The bladder appears within limits. Heterogeneous area at the posterior spleen concerning for splenic laceration measuring 3-3.5 cm with adjacent high-density areas most concerning for blush of contrast, active extravasation, active bleed. A crescentic collection is seen at the lateral spleen measuring approximately 10 x 1.8 cm with concave deformity on the adjacent spleen most concerning for subcapsular hemorrhage. There is a large amount of high-density fluid within the upper abdomen [id number]-right about the spleen and within the pelvis consistent with hemoperitoneum. Possible subtle nondisplaced fracture of the posterior left 10th rib axial 20. Old posterior left 12th rib fracture. No pelvic fracture. Lower lumbar spondylosis. CT/Abdomen/Pelvis W IV Cont ONLY IMPRESSION: Heterogeneous area at the posterior spleen concerning for splenic laceration me asuring 3-3.5 cm with adjacent high-density areas most concerning for blush of contrast, active extravasation, active bleed. A crescentic collection is seen at the lateral spleen measuring approximately 1 0 x 1.8 cm with concave deformity on the adjacent spleen most concerning for subcapsular hemorrhage. There is a large amount of high-density fluid within the upper abdomen left-gre ctqs-gbxn-xdqre about the spleen and within the pelvis consistent with hemoperitoneum. Small bilateral kidneys with dense appearing nephrograms can be seen with renal disease or ATN. No hydronephrosis. Possible subtle nondisplaced fracture of the posterior left 10th rib axial 20. Study discussed over the phone verbally by myself with Dr. Freeman at 04:10 a.m. 01/06/2025 Reading Location: [id number]
--- NOTE | 2025-01-06 03:43 | CT_ITS ---
PROCEDURE: CTA CHEST W/WO CONTRAST 01/06/2025 REASON FOR EXAM: PAIN TECHNIQUE: CTA of the chest with coronal and sagittal and MIP reformatted images CONTRAST: 97 cc Isovue 370 One or more dose reduction techniques were used (e.g., Automated exposure control, adjustment of the mA and/or kV according to patient size, use of iterative reconstruction technique). RADIATION DOSE SUMMARY: CTDlvol: 17.63 mGy DLP: 935.09 mGycm COMPARISON: 10/12/2024 FINDINGS: Ectatic thoracic aorta appears within limits with atherosclerotic changes at the arch and descending thoracic aorta. Ascending aorta measures 4 cm. Descending 2.5 cm. Origin of the right subclavian artery appears within limits. No thoracic aortic dissection. Large appearance of the central pulmonary arteries can be seen with pulmonary hypertension, nonspecific. Cardiomegaly. No pericardial effusion. There is now a small to moderate posterior layering left pleural effusion possible hemothorax. Trace right pleural fluid. Subjacent partial passive collapse, atelectasis left lower lobe. Atelectasis at the lingula and right lower lobe. No pneumothorax. The central airways appear patent. Nonspecific sclerotic focus at the posterior inferior corner of T3 is again seen, unchanged. Images of the upper abdomen with large amount of hemoperitoneum greater on the left side with a crescentic high density along the peripheral aspect of the spleen and blush of contrast suggested posteriorly for example axial 58 concerning for active bleeding. CT/CTA Chest W/WO Contrast IMPRESSION: There is now a small to moderate posterior layering left pleural effusion possi ble hemothorax. Trace right pleural fluid. Subjacent partial passive collapse, atelectasis left lower lobe. Atelectasis at the lingula and right lower lobe. No pneumothorax. Images of the upper abdomen with large amount of hemoperitoneum greater on the left side with a crescentic high density along the peripheral aspect of the spleen and blush of contrast suggested posteriorly for example axial 58 concerning for active bleeding. Reading Location: [id number]
[2025-01-06 04:10] LABS: Absolute Lymphocyte Count 1.81 X10^3/uL (0.83-4.51); Absolute Neutrophil Count 10.1 X10^3/uL (2.0-7.7); Basophil# 0.04 X10^3/uL; Basophil% 0.3 % (0-1); Eosinophil# 0.04 X10^3/uL; Eosinophils% 0.3 % (0-5); Hematocrit 15.8 % (37-47); Lymphocyte # 1.81 X10^3/ul (0.83-4.51); Lymphocyte % 13.8 % (19-41); Mean Corp Hgb Conc 31.6 g/dL (32-36); Mean Corpuscular Hgb 30.1 pg (27.0-32.0); Mean Corpuscular Volume 95.2 fL (81-99); Mean Platelet Vol. 10.7 fl (6.2-12.0); Monocyte# 0.83 X10^3/uL; Monocyte% 6.3 % (0-10); NRBC Flagged by Analyzer 0 % (0-5); Neutrophil # 10.05 X10^3/uL (2.7-7.7); Neutrophil % 76.5 % (47-70); POSITIVE COUNT YES; Platelet Count 170 K/mm3 (150-450); RBC Distribution Width CV 14.7 % (11.6-14.6); RBC Distribution Width SD 50.6 fl (35.1-43.9); Red Blood Count 1.66 M/mm3 (4.2-5.4); White Blood Count 13.1 K/mm3 (4.4-11.0)
[2025-01-06 04:28] LABS: International Normalized Ratio 2.1; Partial Thromboplast Time 37.1 Seconds (24.1-36.2); Prothrombin Time (Protime)PT. 23.6 SECONDS (11.7-14.9); Troponin T High Sensitivity 15 ng/L (<=14)
[2025-01-06 04:33] LABS: Differential Indicated SCAN CRITERIA MET
[2025-01-06 04:36] LABS: Anion Gap 19 (5-15); BUN 12 mg/dL (4-19); BUN/Creat Ratio 10.7 RATIO (10-20); Carbon Dioxide 10.5 mmol/L (21.0-32.0); Chloride 97 mmol/L (98-108); Creatinine, Serum 1.13 mg/dL (0.70-1.20); EST Glomerular Filtration Rate 48 (>60); Estimated Creatinine Clearance 34.48 ml/min (50-250); Glucose 218 mg/dL (70-99); Potassium 3.4 mmol/L (3.3-5.1); Sodium Level 127 mmol/L (133-145)
[2025-01-06 04:40] LABS: Calcium,Total 6.8 mg/dL (7.6-11.0)
--- NOTE | 2025-01-06 04:42 | EX.ED.DYSGE1 ---
HPI History of Present Illness Chief Complaint: Stroke Alert Narrative Narrative: Patient is a 84-year-old female with past medical history atrial fibrillation on Eliquis, chronic kidney disease stage III, rheumatoid arthritis, hypertension who presented to the emergency department via EMS prehospital as a stroke alert. Per EMS they are unsure when her last known well was. They noted that she was unable to move both of her arms and route and noted facial droop on the left side therefore they called a stroke alert prehospital. PFSH PFS Medical History Atrial fibrillation Irregular heart beat Rheumatoid arthritis Chronic kidney disease, stage 3 Hypertension Home Medications ?Medication ?Instructions ?Recorded ?Last Taken ?Type allopurinol 100 mg tablet 100 mg PO DAILYCM gout 11/12/14 10/11/24 History furosemide 40 mg tablet 20 mg PO DAILY diuretic 11/12/14 Unknown History cholecalciferol (vitamin D3) 1,250 1,250 mcg PO QWEEK supplement 10/12/24 10/10/24 History mcg (50,000 unit) capsule duloxetine 30 mg capsule,delayed 30 mg PO QHS mood 10/12/24 Unknown History release folic acid 1 mg tablet 2 mg PO DAILY supplement 10/12/24 Unknown History levothyroxine 25 mcg tablet 25 mcg PO DAILY disorder of 10/12/24 Unknown History thyroid gland potassium chloride 10 mEq 10 meq PO BID supplement 10/12/24 Unknown History tablet,extended release(part/cryst) (Klor-Con M) rosuvastatin 10 mg tablet 10 mg PO DAILY cholesterol 10/12/24 Unknown History apremilast 30 mg tablet (Otezla) 30 mg PO BID psoriasis 10/13/24 Unknown History famotidine 20 mg tablet (Acid 20 mg PO DAILY gerd 10/13/24 Unknown History Controller) mecobalamin (vitamin B12) 1,000 1,000 mcg PO .OD supplement 10/13/24 Unknown History mcg chewable tablet (B12 Active) vit C 250 mg-vit E 90 mg-zinc 40 1 tab PO DAILY supplement 10/13/24 Unknown History mg-copper 1 la-nduddi-irmsfl capsule (PreserVision AREDS-2) acetaminophen 325 mg tablet 650 mg (2 x 325 mg) PO Q6H PRN PRN 10/18/24 Unknown Rx Pain 1-10 Or Fever>100.7 #0 tabs apixaban 5 mg tablet (Eliquis) 5 mg PO BID #60 tabs 10/18/24 Unknown Rx losartan 50 mg tablet 50 mg PO DAILY #60 tabs 10/18/24 Unknown Rx metoprolol tartrate 100 mg tablet 100 mg PO BID #60 tabs 10/18/24 Unknown Rx amiodarone 200 mg tablet 200 mg PO DAILY 01/06/25 Unknown History Allergy/AdvReac Type Severity Reaction Status Date / Time amlodipine besylate (From Allergy Other Verified 01/06/25 03:42 Norvasc) bumetanide (From Bumex) Allergy Other Verified 01/06/25 03:42 cephalexin monohydrate (From Allergy Hives Verified 01/06/25 03:42 Keflex) colchicine Allergy Hives Verified 01/06/25 03:42 hydrochlorothiazide Allergy Hives Verified 01/06/25 03:42 hydrocortisone acetate (From Allergy Other Verified 01/06/25 03:42 Hydrocortone Acetate) minoxidil Allergy Other Verified 01/06/25 03:42 naproxen Allergy Rash Verified 01/06/25 03:42 ofloxacin (From Floxin) Allergy Shortness Verified 01/06/25 03:42 of breath Penicillins (PCN) Allergy Rash Verified 01/06/25 03:42 Sulfa (Sulfonamide Allergy Rash Verified 01/06/25 03:42 Antibiotics) Family History Son Diabetes CAD (coronary artery disease) Other H/O: hysterectomy Surgical History Hx of cholecystectomy Social History Smoking Status: Never smoker ROS ROS ED ROS Narrative Constitutional: Denies fevers, chills, headaches Eyes: Denies change in vision double vision blurry vision Cardiovascular: Denies chest pain Respiratory: Complains of shortness of breath Abdomen: Complains of abdominal pain : Denies urinary symptoms Neurological: Complains of weakness Musculoskeletal: Complains of back pain Skin: Denies any lesions or rashes EXAM Physical Exam Narrative Exam Narrative: General: Patient lying in bed did appear to be uncomfortable Head: Atraumatic, normocephalic Eyes: PERRL bilaterally, EOMI bilateral, no conjunctival injection noted Neck: Soft, supple, trachea midline Cardiovascular: Regular rate and rhythm Abdomen: Diffuse tenderness to palpation Extremities: +4/5 strength noted to bilateral lower extremities, radial pulse +2/4 in the bilateral upper extremities Neurological: Patient follow commands that she was at [facility] years 2024. NIH of 0 GCS 15 Skin: Warm, dry, intact Const Vital Signs: 01/06/25 03:29 01/06/25 04:05 01/06/25 04:15 Temperature 97.6 F L 97.6 F L Temperature Source Temporal Oral Pulse Rate 71 72 Respiratory Rate 24 H 28 H Blood Pressure 123/53 H 123/53 H Blood Pressure Mean 76 76 Blood Pressure Source Blood Pressure Position Blood Pressure Location Pulse Ox 85 94 Oxygen Delivery Method Nasal Cannula Nasal Cannula Nasal Cannula Oxygen Flow Rate (L/min) 2 2 01/06/25 04:37 01/06/25 04:39 01/06/25 04:41 Temperature 97.0 F L 97.5 F L 97.5 F L Temperature Source Oral Oral Oral Pulse Rate 65 65 67 Respiratory Rate 27 H 23 H 28 H Blood Pressure 134/75 H 113/58 L 113/56 L Blood Pressure Mean 94 76 75 Blood Pressure Source Monitor Monitor Monitor Blood Pressure Position Semi-Fowlers Semi-Fowlers Semi-Fowlers Blood Pressure Location Left Arm Left Arm Left Arm Pulse Ox 93 93 93 Oxygen Delivery Method Nasal Cannula Nasal Cannula Nasal Cannula Oxygen Flow Rate (L/min) 2 2 2 MDM MDM MDM Narrative Medical decision making narrative: Patient is a 84-year-old female who presented to the emergency department prehospital as a stroke alert. Once again the last known well when the patient arrived was unknown therefore the patient was placed in the room and family members were on their way to the hospital. Patient is on Eliquis. When family members arrived they noted that her last known well was 10 PM on 01/05/2025. They state that around 2 AM she called the family who is here in the emergency department and states that she was not feeling well and asked them to come over to help her. They note that she states that around midnight she was not feeling well given her symptoms they ultimately decided call EMS to have her brought here for further evaluation management. According to them she was complaining of abdominal pain on the left side radiating to her back. I immediately went back to the computer and added on a CTA of the chest as well as CT abdomen pelvis on top of the stroke workup. On the differential diagnose includes Melamin to intracranial mass, large vessel occlusion, ischemic stroke, cardiac arrhythmia, electrolyte abnormality. Once workup is obtained reviewed she will be reevaluated. Patient did appear pale on EMS cot. Patient CBC reviewed and showed a white blood count of 13,000, hemoglobin is 5, originally this was reported as 1.8 per lab and I reported this to [facility] As I do not have the official result in the computer back yet, patient was originally typed and screened for blood based on her color however her partner pressure did drop and she became hypotensive therefore she was given 2 units of trauma blood with more blood products ordered Kcentra was ordered. Patient's platelet count normal 170. Patient sodium was hyponatremic at 127, potassium 3.4, creatinine was normal at 1.13. Patient's anion gap of 19. Next patient went down to the CT scanner and Patient calcium low at 6.8 she was ordered 2 g of calcium gluconate, troponin was 15. Patient's EKG was reviewed and showed sinus rhythm with rate of 70 bpm with evidence of first-degree AV block with a RI interval of 236. Patient CT head and brain without contrast showed left-sided suprasellar cistern adjacent to the left parasellar carotid is a mildly hyperdense and heterogeneous ovoid extra-axial appearing lesion measuring 1.3 x 1.3 x 0.9 cm likely considerations include giant aneurysm or meningioma. Patient CTA pending. No evidence of intracranial hemorrhage or large vessel territory acute infarct. Patient CTA head and neck showed no flow significant stenosis dissection vessel cutoff or contrast filling aneurysm was identified as above. Just beyond the origin of the right common carotid arteries calcific plaque formation and undulation of the right subclavian artery with 7 mm infundibular widening of the area of the thyrocervical trunk. Patient's CT abdomen pelvis official read is pending however radiology did call me and states that she had active extravasation of bleeding from her spleen. Immediately upon receiving the call from radiology discussed with family and discussed transfer to [facility]. I called [facility] Critical transport team for the helicopter for transport. I spoke with ER physician Dr. Barone who accept patient for admission. Patient notified as well as family members as well. Patient had 2 large bore IV placed here in the emergency department as well blood products were placed on pressure bag. Lab Data Labs: Laboratory Results - last 24 hr 01/06/25 01/06/25 04:00 04:30 WBC 13.1 H RBC 1.66 L Hgb 5.0 L* Hct 15.8 L MCV 95.2 MCH 30.1 MCHC 31.6 L RDW Std Deviation 50.6 H RDW Coeff of Akin 14.7 H Plt Count 170 MPV 10.7 Immature Gran % (Auto) 2.800 H Neut % (Auto) 76.5 H Lymph % (Auto) 13.8 L [place] % (Auto) 6.3 Eos % (Auto) 0.3 Baso % (Auto) 0.3 Absolute Neuts (auto) 10.1 H Absolute Lymphs (auto) 1.81 Nucleated RBC % 0 PT 23.6 H INR 2.1 APTT 37.1 H Sodium 127 L Potassium 3.4 Chloride 97 L Carbon Dioxide 10.5 L Anion Gap 19 H BUN 12 Creatinine 1.13 Estim Creat Clear Calc 34.48 L Est GFR (MDRD) Non-Af 48 L BUN/Creatinine Ratio 10.7 Glucose 218 H Calcium 6.8 L Troponin T High Sens 15 H Crossmatch See Detail Radiography Diagnostic Testing: Clinical Impression(s) from Imaging Studies Brain CT 01/06/25 03:33 IMPRESSION: Left side of the suprasellar cistern adjacent to the left parasellar carotid is a mildly hyperdense and heterogeneous ovoid extra-axial appearing lesion measuring approximately 1.3 x 1.3 x 0.9 cm axial 18, coronal 36 and sagittal 37 with likely considerations including a giant aneurysm or meningioma among others and requires further workup. No intracranial hemorrhage or CT evidence of large vascular territory acute infarct. Left paranasal sinus disease as above. Results discussed by myself verbally by phone to Dr. Freeman at 4 a.m. 01/06/2025 Reading Location: [facility] Head/Neck CTA 01/06/25 03:34 IMPRESSION: No flow significant stenosis, dissection, vessel cut off or contrast filling aneurysm identified as above. Reading Location: [facility] Chest CTA 01/06/25 03:43 IMPRESSION: There is now a small to moderate posterior layering left pleural effusion possible hemothorax. Trace right pleural fluid. Subjacent partial passive collapse, atelectasis left lower lobe. Atelectasis at the lingula and right lower lobe. No pneumothorax. Images of the upper abdomen with large amount of hemoperitoneum greater on the left side with a crescentic high density along the peripheral aspect of the spleen and blush of contrast suggested posteriorly for example axial 58 concerning for active bleeding. Reading Location: [facility] Discharge Plan Triage Chief Complaint: Stroke Alert ED Provider: Fredy Freeman Dx/Rx/DC Orders Clinical Impression: Moderate laceration of spleen, Hemorrhage intraabdominal, Atrial fibrillation, Acute blood loss anemia Prescriptions: No Action furosemide 40 MG tablet 20 mg PO DAILY Patient Comments: water pill allopurinol 100 MG tablet 100 mg PO DAILYCM Patient Comments: gout potassium chloride [Klor-Con M10] 10 mEq tablet,ER particles/crystals 10 meq PO BID duloxetine 30 mg capsule,delayed release(DR/EC) 30 mg PO QHS folic acid 1 mg tablet 2 mg PO DAILY levothyroxine 25 mcg tablet 25 mcg PO DAILY cholecalciferol (vitamin D3) 1,250 mcg (50,000 unit) capsule 1,250 mcg PO QWEEK rosuvastatin 10 mg tablet 10 mg PO DAILY famotidine [Acid Controller] 20 mg tablet 20 mg PO DAILY PreserVision AREDS-2 250-90-40-1 mg capsule 1 tab PO DAILY mecobalamin (vitamin B12) [B12 Active] 1,000 mcg tablet,chewable 1,000 mcg PO .OD Otezla 30 mg tablet 30 mg PO BID losartan 50 mg Tablet 50 mg PO DAILY Qty: 60 0RF acetaminophen 325 mg Tablet 650 mg PO Q6H PRN PRN (Reason: Pain 1-10 Or Fever>100.7) Qty: 0 0RF metoprolol tartrate 100 mg Tablet 100 mg PO BID Qty: 60 0RF Eliquis 5 mg Tablet 5 mg PO BID Qty: 60 0RF amiodarone 200 mg Tablet 200 mg PO DAILY Primary Care Provider: Atul Harvey Referrals: Atul Harvey DO [Primary Care Provider] - Print Language: Bengali Disposition Disposition: DC/Tx to Another Type of HCF
[2025-01-06] MEDS: Calcium Gluconate IV 2 GM in 0.9% Normal Saline (100mL Bag) 100 ML IV (04:55)
[2025-01-06 05:26] LABS: Pathologist Review May foll
== END 2025-01-06 05:20 | disposition other institution (70) ==
PROVIDERS: Emergency Provider Emergency Medicine; PCP Student in an Organized Health Care Education/Training Program; Visit Provider Emergency Medicine
DX: S36.031A Moderate laceration of spleen, initial encounter (principal); M06.9 Rheumatoid arthritis, unspecified; I48.91 Unspecified atrial fibrillation; N18.30 Chronic kidney disease, stage 3 unspecified; X58.XXXA Exposure to other specified factors, initial encounter; E83.51 Hypocalcemia; I12.9 Hypertensive chronic kidney disease with stage 1 through stage 4 chronic kidney disease, or unspecified chronic kidney disease; D62 Acute posthemorrhagic anemia; E87.1 Hypo-osmolality and hyponatremia; R93.0 Abnormal findings on diagnostic imaging of skull and head, not elsewhere classified; Z79.01 Long term (current) use of anticoagulants; Z79.890 Hormone replacement therapy; Z79.899 Other long term (current) drug therapy
CPT/HCPCS: 36430; 70450; 70496; 70498; 71275; 74177; 80048; 84484; 85025; 85610; 85730; 86850; 86900; 86901; 93005; 96365; 96366; 96367; 99285; P9016; Q9967; A4216; J0612; J7165

== ENCOUNTER → 2025-02-13 | Outpatient (CLI) | payer MEDICARE, SELFPAY ==
[2025-02-13 17:46] LABS: Absolute Lymphocyte Count 3.87 X10^3/uL (0.83-4.51); Absolute Neutrophil Count 5.7 X10^3/uL (2.0-7.7); Basophil# 0.11 X10^3/uL; Eosinophil# 0.24 X10^3/uL; Eosinophils% 2.1 % (0-5); Hematocrit 33.9 % (37-47); Hemoglobin 10.3 g/dL (12.0-15.0); Lymphocyte # 3.87 X10^3/ul (0.83-4.51); Lymphocyte % 33.7 % (19-41); Mean Corp Hgb Conc 30.4 g/dL (32-36); Mean Corpuscular Hgb 26.1 pg (27.0-32.0); Mean Corpuscular Volume 85.8 fL (81-99); Monocyte# 1.52 X10^3/uL; Monocyte% 13.2 % (0-10); NRBC Flagged by Analyzer 0 % (0-5); Neutrophil # 5.66 X10^3/uL (2.7-7.7); Neutrophil % 49.3 % (47-70); POSITIVE DIFFERENTIAL YES; Platelet Count 471 K/mm3 (150-450); RBC Distribution Width CV 15.8 % (11.6-14.6); RBC Distribution Width SD 49.6 fl (35.1-43.9); Red Blood Count 3.95 M/mm3 (4.2-5.4); White Blood Count 11.5 K/mm3 (4.4-11.0)
[2025-02-13 18:00] LABS: Differential Indicated SCAN CRITERIA MET
[2025-02-13 18:04] LABS: ALB/GLOB Ratio 0.7 RATIO (0.9-2.4); AST(SGOT) 34 U/L (<=31); Alanine Aminotransfer ALT/SGPT 19 U/L (<=34); Albumin, Serum 3.2 g/dL (3.4-4.8); Alkaline Phosphatase 119 U/L (35-104); Anion Gap 12 (5-15); BUN 13 mg/dL (4-19); BUN/Creat Ratio 10.8 RATIO (10-20); Calcium,Total 9.2 mg/dL (7.6-11.0); Carbon Dioxide 25.8 mmol/L (21.0-32.0); Chloride 101 mmol/L (98-108); Creatinine, Serum 1.18 mg/dL (0.70-1.20); EST Glomerular Filtration Rate 45 (>60); Globulin 4.3 g/dL (2.2-4.2); Glucose 80 mg/dL (70-99); Potassium 3.3 mmol/L (3.3-5.1); Protein, Total 7.4 g/dL (5.9-8.4); Sodium Level 139 mmol/L (133-145); Total Bilirubin 0.31 mg/dL (0.00-1.30)
== END | disposition home or self-care (01) ==
LOC: MTLAB 14:23
PROVIDERS: PCP Student in an Organized Health Care Education/Training Program; Referring Provider Internal Medicine Rheumatology; Visit Provider Internal Medicine Rheumatology
DX: L40.59 Other psoriatic arthropathy (principal); L40.8 Other psoriasis; M35.00 Sjogren syndrome, unspecified; Z79.899 Other long term (current) drug therapy
CPT/HCPCS: 36415; 80053; 85025

== ENCOUNTER → 2025-05-08 | Outpatient (CLI) | payer MEDICARE, SELFPAY ==
[2025-05-08 15:42] LABS: Hematocrit 33.9 % (37-47); Hemoglobin 9.9 g/dL (12.0-15.0); Immature Granulocytes Count 0.030 X10^3/uL (0.0-0.0); Mean Corp Hgb Conc 29.2 g/dL (32-36); Mean Corpuscular Volume 75.2 fL (81-99); Mean Platelet Vol. 11.9 fl (6.2-12.0); NRBC Flagged by Analyzer 0 % (0-5); Platelet Count 415 K/mm3 (150-450); RBC Distribution Width CV 19.2 % (11.6-14.6); RBC Distribution Width SD 50.8 fl (35.1-43.9); Red Blood Count 4.51 M/mm3 (4.2-5.4); White Blood Count 9.9 K/mm3 (4.4-11.0)
[2025-05-08 16:11] LABS: AST(SGOT) 32 U/L (<=31); Alanine Aminotransfer ALT/SGPT 20 U/L (<=34); Albumin, Serum 3.7 g/dL (3.4-4.8); Alkaline Phosphatase 99 U/L (35-104); Anion Gap 10 (5-15); BUN 15 mg/dL (4-19); BUN/Creat Ratio 13.4 RATIO (10-20); Calcium,Total 9.2 mg/dL (7.6-11.0); Carbon Dioxide 25.0 mmol/L (21.0-32.0); Chloride 103 mmol/L (98-108); Globulin 4.2 g/dL (2.2-4.2); Glucose 99 mg/dL (70-99); Potassium 3.9 mmol/L (3.3-5.1)
== END | disposition home or self-care (01) ==
LOC: MTLAB 11:12
PROVIDERS: PCP Student in an Organized Health Care Education/Training Program; Referring Provider Internal Medicine Rheumatology; Visit Provider Internal Medicine Rheumatology
DX: L40.59 Other psoriatic arthropathy (principal); M79.7 Fibromyalgia; Z79.899 Other long term (current) drug therapy
CPT/HCPCS: 36415; 80053; 85025

== ENCOUNTER 2025-06-12 23:22 | Inpatient (IN) | payer MEDICARE, SELFPAY ==
[2025-06-12 23:24] VITALS: BP 152/108; PULSE 110; RESP 37; TEMP 39.7; O2SAT 90; BMI 40.4
--- NOTE | 2025-06-12 23:27 | EKG12_ITS ---
Test Reason : DYSRHYTHMIA Blood Pressure : */* mmHG Vent. Rate : 113 BPM Atrial Rate : 113 BPM P-R Int : 216 ms QRS Dur : 96 ms QT Int : 292 ms P-R-T Axes : * -17 64 degrees QTcB Int : 400 ms Sinus tachycardia with 1st degree A-V block Nonspecific ST abnormality Abnormal ECG Baseline artifact noted, cannot rule out Atrial Fibrillation Confirmed by Solomon Serna ([id number]), production editor CHRISTEL KEANE ([id number]) on 06/13/2025 11:05:48 AM Referred By: ELIU Confirmed By: Solomon Serna
[2025-06-12 23:32] VITALS: O2SAT 93
[2025-06-12 23:33] VITALS: BP 152/108; PULSE 114; RESP 37; TEMP 39.7; O2SAT 93
[2025-06-12] MEDS: 0.9% Normal Saline (1000mL) 1,000 ML 999 ML IV (23:39)
[2025-06-12 23:45] LABS: Hematocrit 35.3 % (37-47); Hemoglobin 10.8 g/dL (12.0-15.0); Immature Granulocytes Count 0.750 X10^3/uL (0.0-0.0); Mean Corp Hgb Conc 30.6 g/dL (32-36); Mean Corpuscular Volume 79.7 fL (81-99); Mean Platelet Vol. 10.8 fl (6.2-12.0); NRBC Flagged by Analyzer 0 % (0-5); POSITIVE DIFFERENTIAL YES; POSITIVE MORPHOLOGY YES; Platelet Count 286 K/mm3 (150-450); RBC Distribution Width CV 27.4 % (11.6-14.6); RBC Distribution Width SD 75.7 fl (35.1-43.9); Red Blood Count 4.43 M/mm3 (4.2-5.4); White Blood Count 26.8 K/mm3 (4.4-11.0)
[2025-06-12 23:50] LABS: Differential Indicated SCAN CRITERIA MET
[2025-06-12 23:53] LABS: Mucous, Urine 0 SEEN /hpf (<or=2+)
[2025-06-12] MEDS: Meropenem 1 GM in 0.9% Normal Saline (100mL MB+) 100 ML IV (23:53)
[2025-06-12 23:54] LABS: Prothrombin Time (Protime)PT. 20.2 SECONDS (11.7-14.9)
[2025-06-12 23:55] LABS: Partial Thromboplast Time 34.3 Seconds (24.1-36.2)
[2025-06-12 23:59] LABS: Color, Urine Yellow (Yellow); Glucose, Dipstick Normal (Normal); Ketone-Dipstick Negative (Negative); Leukocyte Esterase-Dipstick 100 /ul (Negative); Nitrite-Dipstick Positive (Negative); Occult Blood-Urine 50 /ul (Negative); Protein-Dipstick 500 mg/dl (Negative); Specific Gravity, Urine 1.015 (1.002-1.030); Urine Bilirubin Dipstick Negative (Negative)
--- NOTE | 2025-06-12 23:59 | RAD_ITS ---
PROCEDURE: CHEST 1 VIEW (PORTABLE) 06/13/2025 REASON FOR EXAM: COUGH TECHNIQUE: Frontal view of the chest. COMPARISON: CT scan on 01/06/2025. FINDINGS: Moderate central pulmonary venous congestion. Airspace disease in the left lower lobe. There is no demonstrated pleural abnormality. Enlarged cardiac silhouette. Normal mediastinum and meghan. Normal visualized pulmonary arteries. Atheromatous plaques of the visualized aortic arch and descending thoracic aorta. Diffuse spondylosis of the visualized thoracic spine. Normal visualized ribs, clavicles. Degenerative joint disease. There is no demonstrated abnormality of the visualized soft tissue structures of the upper abdomen. RAD/Chest 1 View (Portable) IMPRESSION: Cardiomegaly. Moderate central pulmonary venous congestion. Airspace disease in the left lower lobe. Hypoventilatory pulmonary changes and /or developing pneumonia. Reading Location: [place] [id number]
[2025-06-13] VITALS (38 sets, daily range): BP systolic 82–180; BP diastolic 52–83; PULSE 67–109; RESP 20–37; TEMP 36.6–40.5; O2SAT 90–100; BMI 40.4; BMI 29.0
[2025-06-13 00:09] LABS: Ammonia 21.0 umol/L (11-51)
[2025-06-13 00:13] LABS: Red Blood Cells-Urine 0-5 SEEN /hpf (0-5); Squamous Epithelial Cells - UA 0-5 SEEN /hpf (5-10)
[2025-06-13 00:14] LABS: AST(SGOT) 62 U/L (<=31); Alanine Aminotransfer ALT/SGPT 37 U/L (<=34); Albumin, Serum 3.7 g/dL (3.4-4.8); Alkaline Phosphatase 101 U/L (35-104); Anion Gap 18 (5-15); BUN 20 mg/dL (4-19); BUN/Creat Ratio 14.2 RATIO (10-20); Bilirubin, Direct 0.48 mg/dL (0.00-0.30); Calcium,Total 8.8 mg/dL (7.6-11.0); Carbon Dioxide 17.0 mmol/L (21.0-32.0); Chloride 99 mmol/L (98-108); Estimated Creatinine Clearance 32.83 ml/min (50-250); Globulin 4.2 g/dL (2.2-4.2); Glucose 172 mg/dL (70-99); Magnesium 1.6 mg/dL (1.5-2.2); Potassium 3.5 mmol/L (3.3-5.1)
[2025-06-13] MEDS: 0.9% Normal Saline (1000mL) 1,000 ML 999 ML IV ×2 (00:22→01:30)
--- OUTSIDE RECORDS SUMMARY | 2025-06-13 00:24 | XMS RPT_ITS | CCD ---
Author Organization [facility] Care Team Providers Care Enrollment Specialist Name Role Phone Atul Harvey DO Primary Care Provider Teresita RN, Katja Unavailable Atul Harvey DO Primary Care Provider Satish RN, Mitesh Unavailable Teresita RN, Katja Unavailable Satish GARCIA, Mitesh Unavailable Teresita RN, Katja Unavailable Atul Harvey DO Primary Care Provider Satish GARCIA, Mitesh Thelma Unavailable Satish RN, Mitesh Thelma Unavailable Aleksander STEAM FINISHER.Milana DUARTE Unavailable Ramírez STEAM FINISHER.Catalina DUARTE Unavailable Eric RN, Kirstin Unavailable Eric RN, Kirstin Unavailable Dr. Atul Harvey DO Primary Care Provider Dr. Yuri Meier DO Referring Provider Dr. Yuri Meier DO Emergency Provider Dr. Doug Tubbs DO Admit Provider Dr. Doug Tubbs DO Other Provider Hieu CERVANTES, Dr. Martin Other Provider Dr. Rasheed Ledezma MD Attending Provider Unavaila ble Dr. Doug Tubbs DO Attending Provider Brisa CERVANTES, Dr. Reeves Other Provider Unavailable Hieu CERVANTES, Dr. Martin Attending Provider Kareem CERVANTES, Dr. Carbajal Attending Provider Jovita CERVANTES, Dr. Burks Attending Provider Jovita CERVANTES, Dr. Burks Referring Provider Lydia HENDERSON, Dr. Daniel Emergency Provider Armijo STEAM FINISHER.GROCERY BAGGER, Milana Allyssa Unavailable LEONEL SMALL Admitting Unavailable COURTNEY HUTCHISON Attending Unavailable CATALINA RUIZ Consulting Unavailabl e ATUL HARVEY Primary Care Unavailable Wes HENDERSON, Dr. Pollard Primary Care Provider Lydia HENDERSON, Dr. Daniel Attending Provider Tate Reynolds MD Attending Provider UnavailTate Diaz MD Referring Provider Unavaila ble Blaise STEAM FINISHER.GROCERY BAGGER, Pinky Alston Unavailable Wes HENDERSON, Dr. Pollard Primary Care Provider Lori Herndon Attending Provider Jovita CERVANTES, Dr. Bukrs Attending Provider Jovita CERVANTES, Dr. Burks Referring Provider Gail CERVANTES, Dr. Ybarra Attending Provider Wes HENDERSON, Dr. Pollard Primary Care Provider Tate Reynolds MD Attending Provider Unavaila ble HARVEY, ATUL L Primary Care Unavailable HARVEY, ATUL L Referring Unavailable PHUC MARTI Attending Unavailable HARVEY, ATUL Red Referring Unavailable HARVEY, ATUL L Primary Care Unavailable HARVEY, ATUL L Primary Care Unavailable HARVEY, ATUL L Attending Unavailable HARVEY, ATUL L Primary Care Unavailable HARVEY, ATUL L Referring Unavailable HARVEY, ATUL L Primary Care Unavailable JOSEF MARTINEZ Referring Unavailable HARVEY, ATUL L Primary Care Unavailable JOSEF MARTINEZ Referring Unavailable HARVEY, ATUL L Primary Care Unavailable JOSEF MARTINEZ Attending Unavailable RASHEED BARRIOS Attending Unavailable HARVEY, ATUL L Primary Care Unavailable HARVEY, ATUL L Primary Care Unavailable HARVEY, ATUL L Attending Unavailable HARVEY, ATUL L Primary Care Unavailable HARVEY, ATUL L Referring Unavailable HARVEY, ATUL L Primary Care Unavailable HARVEY, ATUL L Primary Care Unavailable RASHEED BARRIOS Referring Unavailable RASHEED BARRIOS Attending Unavailable HARVEY, ATUL L Attending Unavailable HARVEY, ATUL L Primary Care Unavailable CECILIA SKY Referring Unavailable HARVEY, ATUL L Primary Care Unavailable HARVEY, ATUL L Primary Care Unavailable RASHEED BARRIOS Referring Unavailable RASHEED BARRIOS Attending Unavailable HARVEY, ATUL L Referring Unavailable HARVEY, ATUL L Primary Care Unavailable HARVEY, ATUL L Primary Care Unavailable CATALINA JAUREGUI Attending Unavailable SELF Referring Unavailable HARVEY, ATUL L Primary Care Unavailable SELF Referring Unavailable Gail POWELL Efewongbe Attending Unavailabl e Harvey, Atul Primary Care Unavailable Yuri Meier Referring Unavailable Harvey, Atul Primary Care Unavailable Doug Tubbs Admitting Unavailable Doug Tubbs Consulting Unavailable Rasheed Ledezma Attending Unavailable Breana Hagenl Consulting Unavailable Rasheed Ledezma Consulting Unavailable Ahmet Hagenril Attending Unavailable Harvey, Atul Primary Care Unavailable Breana Hagenl Attending Unavailable Doug Tubbs Attending Unavailable Kimmie Hussein Attending Unavailable Jovita Kimmie Referring Unavailable Harvey, Atul Primary Care Unavailable Yuri Meier Referring Unavailable Harvey, Atul Primary Care Unavailable Doug Tubbs Consulting Unavailable Doug Tubbs Admitting Unavailable Rasheed Ledezma Attending Unavailable Hieu, [place] Consulting Unavailable Dea Serna Attending Unavailable Harvey, Atul Primary Care Unavailable Fredy Freeman Attending Unavailable Oleghe ANDRE, Efewongbe Attending Unavailabl e Harvey, Atul Primary Care Unavailable Olebare ANDRE, Efewongbe Attending Unavailabl e Oleghe OLS, Efewongbe Referring Unavailabl e Harvey, Atul Primary Care Unavailable Jovita, Kimmie Attending Unavailable Jovita, Kimmie Referring Unavailable Harvey, Atul Primary Care Unavailable Jovita, Kimmie Attending Unavailable Jovita, Kimmie Referring Unavailable Harvey, Atul Primary Care Unavailable Lori Nuñez Attending Unavailable Harvey, Atul Primary Care Unavailable Lori Nuñez Attending Unavailable Harvey, Atul Primary Care Unavailable Harvey, Atul Primary Care Unavailable Tate Reynolds Attending Unavailable Lori Nuñez Attending Unavailable Harvey, Atul Primary Care Unavailable Kimmie Hussein Referring Unavailable Kimmie Hussein Attending Unavailable Harvey, Atul Primary Care Unavailable Harvey, Atul Primary Care Unavailable Darryl Vargas Attending Unavailable Allergies Allergy Classification Reported Allergen(s) Allergy Type Date of Onset Reaction(s) Facility amLODIPine (4 sources) amLODIPine Drug Allergy Intolerance [facility] Bumetanide (4 sources) Bumetanide Drug Allergy Intolerance [facility] Cephalosporins (antibiotic) (4 sources) Cephalexin Drug Allergy Rash [facility] Colchicine (4 sources) Colchicine Drug Allergy [facility] Work Phone: Corticosteroids (4 sources) Hydrocortisone Drug Allergy Intolerance [facility] hydroCHLOROthiazide (4 sources) hydroCHLOROthiazide Drug Allergy Rash, Intolerance [facility] Minoxidil (4 sources) Minoxidil Drug Allergy 011 Other: See Comments [facility] NSAIDs (4 sources) Naproxen Drug Allergy Rash, Hives [facility] Penicillins (antibiotic) (4 sources) Penicillins Drug Allergy Intolerance [facility] Work Phone: Quinolones (antibiotic) (4 sources) Ofloxacin Drug Allergy Anaphylaxis [facility] Sulfonamides (antibiotic) (4 sources) Sulfonamides (Antibiotic) Drug Allergy Rash, GI Upset [facility] (20 sources) amLODIPine; Translations: [AMLODIPINE BESYLATE] Drug Allergy Intolerance [facility] (20 sources) Bumetanide; Translations: [BUMETANIDE] Drug Allergy Intolerance [facility] (20 sources) Cephalexin; Translations: [CEPHALEXIN] Drug Allergy Rash [facility] (20 sources) Colchicine; Translations: [COLCHICINE] Drug Allergy [facility] Work Phone: (20 sources) hydroCHLOROthiazide; Translations: [HYDROCHLOROTHIAZIDE] Drug Allergy Rash, Intolerance [facility] (20 sources) Hydrocortisone; Translations: [HYDROCORTISONE ACETATE] Drug Allergy Intolerance [facility] (20 sources) Minoxidil; Translations: [MINOXIDIL] Drug Allergy 011 Other: See Comments [facility] (20 sources) Naproxen; Translations: [NAPROXEN] Drug Allergy 005 Rash, Hives [facility] (20 sources) Ofloxacin; Translations: [OFLOXACIN] Drug Allergy Anaphylaxis [facility] (15 sources) Penicillins; Translations: [PENICILLINS] Drug Intolerance Intolerance [facility] Work Phone: (20 sources) Sulfonamides (Antibiotic); Translations: [SULFA (SULFONAMIDE ANTIBIOTICS)] Drug Allergy Rash, GI Upset [facility] (16 sources) Cephalexin; Translations: [cephalexin monohydrate] Drug Allergy 017 [facility] (20 sources) Penicillins Drug Intolerance Intolerance [facility] Work Phone: (14 sources) Penicillins Allergy to substance 017 [facility] (14 sources) Sulfonamides (Antibiotic) Allergy to substance 015 [facility] (5 sources) amLODIPine Drug Allergy 023 [facility] (18 sources) Penicillins Drug Intolerance 005 Intolerance [facility] (1 source) amLODIPine Drug Allergy [facility] (1 source) Bumetanide Drug Allergy [facility] (1 source) Colchicine Drug Allergy [facility] (1 source) hydroCHLOROthiazide Drug Allergy [facility] (1 source) Hydrocortisone Drug Allergy [facility] (1 source) Minoxidil Drug Allergy 025 [facility] (1 source) Naproxen Drug Allergy [facility] (1 source) Ofloxacin Drug Allergy 025 [facility] (1 source) Penicillins Drug allergy (disorder) 025 [facility] (1 source) Sulfonamides (Antibiotic) Drug allergy (disorder) 025 [facility] Medications Current Medications Medication Drug Class(es) Dates Sig (Normalized) Sig (Original) acetaminophen 325 mg oral tablet (20 sources) Start: 10-18-2024 take 1-10 tablets by mouth every six hours as needed for pain Acetaminophen 325 mg Tablet Active 650 mg PO EVERY 6 HOURS NEEDED as needed for Pain 1-10 Or Fever>100.7 0 0 October 18, 2024 1:00am take 2 tablets by mo uth every six hours as needed acetaminophen (TYLENOL) 325 mg tablet Ta ke 650 mg by mouth every 6 hours as needed. Active Comment on above: Take 650 mg by mouth every 6 hours as needed. allopurinol 100 mg oral tablet (20 sources) Xanthine Oxidase Inhibitor Start: 02-17-2025 take 1 tablet by mouth once daily allopurinol (ZYLOPRIM) 100 mg tablet Take 1 tablet by mouth once daily. 90 tablet 3 02/17/2025 Active Start: 11-12-2014 End: 02-15-2025 take 1 tablet by mouth once daily allopurinol (ZYLOPRIM) 100 mg tablet Take 1 tablet by mouth once daily. 90 tablet 3 02/17/2025 Active Comment on above: Take 1 tablet by ross once daily. amiodarone hydrochloride 200 mg oral tablet (20 sources) Antiarrhythmic Start: 11-07-19 End: 02-14-20 take 1 tablet by mouth once daily in the morning amiodarone (PACERONE) 200 mg tablet Indications: Paroxysmal atrial fibrillation (HCC) Take 1 tablet by mouth once daily. Take at 8 am 90 tablet 3 02/14/2025 Active Start: 10-18-2024 End: 01-06-2025 take 1 tablet by mouth twice daily Amiodarone 200 mg Tablet Discontinued 200 mg PO TWICE A DAY 120 60 0 October 18, 2024 1:00am January 06, 2025 3:50am apixaban 5 mg oral tablet (20 sources) Factor Xa Inhibitor Start: 10-18-2024 End: 02-13-2025 take 1 tablet by mouth twice daily in the morning apixaban (ELIQUIS) 5 mg tab(s) Indications: Paroxysmal atrial fibrillation (HCC) Take 1 tablet by mouth two times a day. Take at 8 am and at 8 pm 180 tablet 3 02/14/2025 Active apremilast 30 mg oral tablet (20 sources) Start: 10-13-2024 take 1 tablet by mouth twice daily Apremilast (Otezla) 30 mg tablet Active 30 mg PO TWICE A DAY October 13, 2024 1:00am psoriasis take 1 tablet by mouth once wilmar y apremilast (OTEZLA) 30 mg tablet Take 30 mg by mouth once daily. 0 Active Comment on above: Take 30 mg by mouth once daily. Take 30 mg by mouth twice daily. Take 30 mg by mouth two times a day. ascorbic acid 200 mg / beta carotene 1000 unt / cuprous oxide 2 mg / dl-alpha tocopheryl acetate 60 unt / lutein 2 mg / sodium selenate 0.055 mg / zinc oxide 40 mg oral tablet (14 sources) Vitamin C Start: 02-08-20 25 take 1 tablet by mouth once daily in the morning Vit A,C and Y-Mkswjc-Xtstjchk (OCUVITE WITH LUTEIN) 300 mcg-200 mg-27 mg-2 mg tab Take 1 tablet by mouth once daily. Take at 8 am 90 tablet 1 02/07/2025 Active atorvastatin 20 mg oral tablet (14 sources) HMG-CoA Reductase Inhibitor Start: 02-08-20 25 take 1 tablet by mouth once daily in the evening atorvastatin (LIPITOR) 20 mg tablet Take 1 tablet by mouth once daily. At 8 pm 90 tablet 3 02/07/2025 Active azithromycin 250 mg oral tablet (3 sources) Macrolide Antimicrobial Start: 03-18-20 End: 03-23-20 azithromycin (ZITHROMAX Z-JANETH) 250 mg tablet Indications: Acute bronchitis, unspecified organism Take 2 tablets day one, then, 1 tablet daily until gone. 6 tablet 0 03/18/2023 03/23/2023 Active Start: 10-22-2020 End: 08-13-2021 take 1 tablet by mouth once daily azithromycin (ZITHROMAX) 250 mg tablet Take 1 tablet by mouth once daily. 6 tablet 10/22/2020 08/13/2021 Discontinued Comment on above: Take 2 tablets day o ne, then, 1 tablet daily until gone. cholecalciferol 0.05 mg oral capsule (20 sources) Vitamin D Start: take 1 capsule by mouth once daily Cholecalciferol, Vitamin D3, 50 mcg (2,000 unit) cap Indications: Vitamin D deficiency Take 1 capsule by mouth once daily. 90 capsule 3 02/17/2025 Active Start: 10-12-2024 take 1 capsule by mo uth every week Cholecalciferol (Vitamin D3) 1,250 mcg (50,000 unit) capsule Active 1250 ug PO EVERY WEEK October 12, 2024 1:00am supplement Start: 10-07-2024 End: 02-15-2025 take 1 capsule by mouth every week cholecalciferol, Vitamin D3, (VITAMIN D3) 1,250 mcg (50,000 unit) cap capsule Take 1 capsule by mouth one time a week. 12 capsule 2 10/07/2024 02/15/2025 Discontinued Start: 01-30-2021 End: 02-15-2025 take 1 capsule by mouth once daily Cholecalciferol, Vitamin D3, 50 mcg (2,000 unit) cap Indications: Vitamin D deficiency Take 1 capsule by mouth once daily. 90 capsule 3 11/18/2023 02/15/2025 Discontinued Start: 06-29-2015 [facility] Cholecalciferol (Vitamin D3) (Vitamin D3) 1,000 UNIT tablet Active 1000 UNIT PO DAILY June 29, 2015 12:00am Start: 02-25-2012 End: 01-30-2021 take 1 capsule by mouth once daily Cholecalciferol, Vitamin D3, 1,000 unit Cap Take 1 capsule by mouth once daily. 1 capsule 0 02/25/2012 01/30/2021 Discontinued Comment on above: Take 1 capsule by mo uth once daily. dicyclomine hydrochloride 10 mg oral capsule (20 sources) Anticholinergic Start: 015 End: 025 take 1 capsule by mouth at bedtime for diarrhea dicyclomine (BENTYL) 10 mg capsule Indications: Abdominal cramping , Functional diarrhea Take 1 capsule by mouth before meals and at bedtime. For diarrhea or abdominal cramping 30 capsule 1 11/18/2023 Active Comment on above: Take 1 capsule by mo uth before meals and at bedtime. For diarrhea or abdominal cramping docusate sodium 50 mg / sennosides, fci 8.6 mg oral tablet (16 sources) Start: take 1 tablet by mouth twice daily senna-docusate (SENNA-S) 8.6-50 mg per tablet Take 1 tablet by mouth two times a day. 01/17/2025 Active doxycycline hyclate 100 mg oral tablet (6 sources) Tetracycline-class Drug Start: End: take 1 tablet by mouth twice daily doxycycline (VIBRA-TABS) 100 mg tablet Indications: Rhinosinusitis Take 1 tablet by mouth two times a day for 7 days. 14 tablet 11/11/2024 11/18/2024 Active Start: 03-16-2024 End: 03-26-2024 take 1 tablet by mouth twice daily doxycycline (VIBRA-TABS) 100 mg tablet Indications: Wasp sting, accidental or unintentional, initial encounter , Cellulitis of left upper extremity Take 1 tablet by mouth two times a day for 10 days. 20 tablet 0 03/16/2024 03/26/2024 Active DULoxetine 30 mg delayed release oral capsule (20 sources) Serotonin and Norepinephrine Reuptake Inhibitor Start: 10-12-2024 End: 02-07-2025 take 1 capsule by mouth once daily in the morning DULoxetine (CYMBALTA) 30 mg capsule Take 1 capsule by mouth once daily. Take at 8 am 90 capsule 1 02/07/2025 Active famotidine 20 mg oral tablet (9 sources) Histamine-2 Receptor Antagonist Start: 10-13-2024 take 1 tablet by mouth once daily Famotidine (Acid Controller) 20 mg tablet Active 20 mg PO DAILY October 13, 2024 1:00am gerd folic acid 1 mg oral tablet (20 sources) Start: 12-15-2022 End: 02-07-2025 take 2 tablets by mouth once daily in the morning folic acid 1 mg tablet Take 2 tablets by mouth once daily. Take at 8 am 180 tablet 3 02/07/2025 Active Start: 11-21-2020 End: 11-26-2022 take 2 tablets by mouth once daily folic acid 1 mg tablet Take 2 tablets by mouth once daily. 60 tablet 11 11/21/2020 11/25/2021 Discontinued Comment on above: Take 2 tablets by [facility] once daily. TAKE 2 TABLETS BY [facility] EVERY DAY furosemide 20 mg oral tablet (20 sources) Loop Diuretic Start: 12-07-2024 End: 02-07-2025 take 1 tablet by mouth once daily in the morning furosemide (LASIX) 20 mg tablet Take 1 tablet by mouth once daily. In the morning at 8 am 90 tablet 1 02/07/2025 Active Start: 10-13-2023 End: 12-07-2024 take 1 tablet by mouth once daily furosemide (LASIX) 40 mg tablet Take 1 tablet by mouth once daily. 90 tablet 3 10/20/2024 12/07/2024 Discontinued Start: 11-12-2014 Furosemide 40 MG tablet Active 20 mg PO DAILY November 12, 2014 1:00am diuretic Start: 11-12-2014 End: 06-09-2022 take 1 tablet by mouth once daily furosemide (LASIX) 40 mg tablet Take 1 tablet by mouth once daily. 90 tablet 3 05/30/2020 04/24/2021 Discontinued Comment on above: Take 1 tablet by [facility] once daily. hydrocortisone probutate 1 mg/ml topical cream (20 sources) Corticosteroid hydrocortisone probutate 0.1 % crea Apply to affected area once daily as needed. Active Comment on above: Apply to affected ar ea. Apply to affected ar ea once daily as needed. ketoconazole 20 mg/ml topical cream (20 sources) Azole Antifungal Start: 2023 ketoconazole (NIZORAL) 2 % cream Indications: Yeast dermatitis Apply to affected area two times a day. 60 g 1 05/20/2024 Active levothyroxine sodium 0.075 mg oral tablet (20 sources) l-Thyroxine Start: 2024 take 1 tablet by mouth once daily in the morning for thyroid dysfunction levothyroxine (LEVOXYL) 75 mcg tablet Indications: Subclinical hypothyroidism Take 1 tablet by mouth once daily. Take at 6 am, Take on empty stomach. For Thyroid 90 tablet 1 02/07/2025 Active Start: 02-18-2024 End: 02-07-2025 take 1 tablet by mouth once daily Levothyroxine 25 mcg tablet Active 25 ug PO DAILY October 12, 2024 1:00am disorder of thyroid gland loratadine 10 mg oral tablet (20 sources) Start: 02-07-2025 End: 02-07-2025 take 1 tablet by mouth once daily in the morning loratadine (CLARITIN) 10 mg tablet Take 1 tablet by mouth once daily. Take at 8 am 90 tablet 3 02/07/2025 Active Comment on above: Take 10 mg by mouth once daily. Take 10 mg by mouth once daily. Takes daily as needed losartan potassium 50 mg oral tablet (20 sources) Angiotensin 2 Receptor Sadie Start: 10-18-2024 End: 11-07-2024 take 1 tablet by mouth once daily Losartan 50 mg Tablet Active 50 mg PO DAILY 60 0 October 18, 2024 1:00am Start: 06-29-2015 End: 10-25-2024 take 1 tablet by mouth once daily Losartan 100 MG tablet Discontinued 100 mg PO DAILY June 29, 2015 12:00am October 18, 2024 9:33am Comment on above: Take 1 tablet by ross th once daily. mecobalamin 1 mg chewable tablet (9 sources) Start: 10-13-19 Mecobalamin (Vitamin B12) (B12 Active) 1,000 mcg tablet,chewable Active 1000 ug PO .OD October 13, 2024 1:00am supplement methylPREDNISolone (4 sources) Corticosteroid Start: 03-16-20 End: 03-22-20 methylPREDNISolone (MEDROL, JANETH,) 4 mg Dose-Pack Indications: Wasp sting, accidental or unintentional, initial encounter , Cellulitis of left upper extremity Follow dosing instructions, take with food. 21 tablet 0 03/16/2024 03/22/2024 Active Start: 03-16-2024 End: 03-16-2024 methylPREDNISolone (MEDROL, JANETH,) 4 mg Dose-Pack Indications: Wasp sting, accidental or unintentional, initial encounter , Cellulitis of left upper extremity Follow dosing instructions, take with food. 21 tablet 0 03/16/2024 03/16/2024 Discontinued Start: 10-23-2023 End: 10-29-2023 methylPREDNISolone (MEDROL, JANETH,) 4 mg Dose-Pack Indications: Productive cough Follow dosing instructions, take with food. 21 tablet 10/23/2023 10/29/2023 metoprolol tartrate 50 mg oral tablet (20 sources) beta-Adrenergic Sadie Start: 01-17-2025 End: 02-07-2025 take 1 tablet by mouth every twelve hours in the morning metoprolol tartrate, short acting, (LOPRESSOR) 50 mg tablet Take 1 tablet by mouth every 12 hours. Take at 8 am and at 8 pm 180 tablet 1 02/07/2025 Active Start: 10-18-2024 End: 11-07-2024 take 1 tablet by mouth twice daily Metoprolol Tartrate 100 mg Tablet Active 100 mg PO TWICE A DAY 60 0 October 18, 2024 1:00am nitrofurantoin, macrocrystals 25 mg / nitrofurantoin, monohydrate 75 mg oral capsule (2 sources) Nitrofuran Antibacterial Start: 04-04-2022 End: 04-09-2022 take 1 capsule by mouth twice daily nitrofurantoin monohydrate and macrocrystal (MACROBID) 100 mg capsule Take 1 capsule by mouth twice daily for 5 days. 10 capsule 0 04/04/2022 04/09/2022 Active Comment on above: Take 1 capsule by [facility] twice daily for 5 days. nystatin 100 unt/mg topical powder (20 sources) Polyene Antifungal Start: 05-30-2020 End: 05-20-2024 nystatin (NYSTOP) powder Indications: Yeast dermatitis Apply 1 application to affected area four times a day as needed. Yeast infection/rash in groin and under breasts 120 g 1 05/20/2024 Active Comment on above: Apply 1 application to affected area four times daily as needed. Yeast infection/rash in groin and under breasts perflutren lipid microspheres 1.3 mL in NaCl (PF) 0.9% 10 mL injection (DEFINITY) (20 sources) Start: 04-13-2023 End: 07-12-2024 perflutren lipid microspheres 1.3 mL in NaCl (PF) 0.9% 10 mL injection (DEFINITY) Start: 09-29-2022 End: 12-29-2023 perflutren lipid microsphere s 1.3 mL in NaCl (PF) 0.9% 10 mL injection (DEFINITY) polyethylene glycol 3350 71397 mg powder for oral solution (20 sources) Osmotic Laxative Start: 01-17-2025 polyethylene glycol 3350 17 gram packet Take 1 packet by mouth two times a day. Dissolve dose in 4 - 8 ounces of liquid and take as directed. 01/17/2025 Active Start: 06-29-2015 End: 10-12-2024 take 17 g by mouth once daily Polyethylene Glycol 3350 17 GM powder in packet Discontinued 17 g PO DAILY June 29, 2015 12:00am October 12, 2024 5:46pm microencapsulated potassium chloride 10 meq extended release oral tablet (20 sources) Start: 08-03-2023 End: 02-07-2025 take 1 tablet by mouth twice daily in the morning potassium chloride ER (KLOR-CON M10) 10 mEq tablet Indications: Hypokalemia Take 1 tablet by mouth two times a day. Take at 8 am and at 8 pm 180 tablet 3 02/07/2025 Active Start: 01-22-2021 End: 02-02-2023 take 1 tablet by mouth twice daily potassium chloride ER (K-DUR, KLOR-CON) 10 mEq tablet Indications: Hypokalemia Take 1 tablet by mouth twice daily. 180 tablet 3 01/22/2021 01/02/2022 Discontinued Start: 11-12-2014 Potassium Chlo ride (Klor-Con M20) 20 MEQ tablet Active 10 MEQ PO TWICE A DAY November 12, 2014 1:00am Start: 11-12-2014 End: 10-12-2024 Potassium Chloride (Klor-Con M20) 20 MEQ tablet Discontinued 10 meq PO TWICE A DAY November 12, 2014 1:00am October 12, 2024 5:46pm Comment on above: Take 1 tablet by ross th twice daily. Take 1 tablet by ross th two times a day. rosuvastatin calcium 10 mg oral tablet (20 sources) HMG-CoA Reductase Inhibitor Start: End: take 1 tablet by mouth once daily Rosuvastatin 10 mg tablet Active 10 mg PO DAILY October 12, 2024 1:00am cholesterol Start: 10-08-2022 End: 02-02-2023 take 1 tablet by mouth once daily rosuvastatin (CRESTOR) 10 mg tablet Take 1 tablet by mouth once daily. 90 tablet 1 02/02/2023 Active Comment on above: Take 1 tablet by ross th once daily. TAKE 1 TABLET BY ROSS TH EVERY DAY 125 ml sodium chloride 9 mg/ml prefilled syringe (20 sources) Start: 09-29-2022 End: 07-12-2024 sodium chloride 0.9 % (flush) 10 mL (BD POSIFLUSH) triamcinolone acetonide 1 mg/ml topical cream (20 sources) Corticosteroid Start: 12-03-2021 triamcinolone acetonide (KENALOG) 0.1 % cream Indications: Wasp sting, accidental or unintentional, initial encounter Apply 1 application to affected area two times a day as needed (rash). Apply sparingly to area for rash/itching. 30 g 1 02/17/2024 Active Comment on above: Apply 1 application to affected area twice daily. On rash, Apply sparingly to area for rash/itching. vit A/vit C/vit E/zinc/copper (OCUVITE PRESERVISION ORAL) (20 sources) vit A/vit C/vit E/zinc/copper (OCUVITE PRESERVISION ORAL) Take by mouth twice daily. Suspended vit A/vit C/vit E/zinc/copper (OCUVITE PRESERVISION ORAL) Take by mouth twice daily. Active vit A/vit C/vit E/zinc/copper (OCUVITE PRESERVISION ORAL) Take by mouth twice daily. 0 Active Comment on above: Take by mouth twice daily. Vit C,L-It-Kbbzz-Lutei n-Zeaxan (Preservision Areds-2) 250-90-40-1 mg capsule (9 sources) Start: 10-13-2024 take 2 capsules by mouth once daily Vit C,E-Ek-Kectn-Lutein- Zeaxan (Preservision Areds-2) 250-90-40-1 mg capsule Active 1 {tbl} PO DAILY October 13, 2024 1:00am supplement Start: 10-13-2024 take 2 capsules by m outh once daily Vit C,H-Ks-Vphvw-Lutein-Zeaxan (Preservision Areds-2) 250-90-40-1 mg capsule Active 1 {tbl} PO DAILY October 13, 2024 1:00am vitamin b12 1 mg oral tablet (20 sources) Vitamin B12 Start: 02-17-2025 take 1 tablet by mouth every other day in the morning cyanocobalamin (VITAMIN B-12) 1,000 mcg tab Take 1 tablet by mouth every other day in the morning. 90 tablet 3 02/17/2025 Active End: 02-15-2025 take 1 tablet by mouth every other day in the morning cyanocobalamin (VITAMIN B-12) 1,000 mcg tab Take 1,000 mcg by mouth every other day in the morning. 02/15/2025 Discontinued take 1 tablet by ross th once daily cyanocobalamin (VITAMIN B-12) 1,000 mcg tab Take 1,000 mcg by mouth once daily. Suspended Comment on above: Take 1,000 mcg by mo [facility] once daily. Completed/Discontinued Medications Medication Drug Class(es) Dates Sig (Normalized) Sig (Original) acetaminophen 325 mg / HYDROcodone bitartrate 5 mg oral tablet (15 sources) Opioid Agonist Start: 06-29-2015 End: 10-12-2024 Hydrocodone-Acetami nophen 1 TABLET tablet Discontinued 1 {tbl} PO EVERY 4 HOURS NEEDED as needed for Pain June 29, 2015 12:00am October 12, 2024 5:48pm Start: 06-29-2015 take 1 tablet by ross th every four hours as needed Hydrocodone-Acetaminophen Active 1 TABLE T PO EVERY 4 HOURS NEEDED June 29, 2015 12:00am amLODIPine 2.5 mg oral tablet (20 sources) Dihydropyridine Calcium Channel Sadie Start: 10-23-2023 End: 01-13-2025 take 1 tablet by mouth once daily Amlodipine 2.5 mg tablet Discontinued 2.5 mg PO DAILY October 12, 2024 1:00am October 18, 2024 9:33am bp Start: 02-18-2021 End: 02-02-2023 take 1 tablet by mouth once daily amLODIPine (NORVASC) 5 mg tablet Indications: Hypertension, essential TAKE 1 TABLET BY MOUTH EVERY DAY 90 tablet 3 02/20/2022 02/02/2023 Discontinued Start: 11-05-2020 End: 02-18-2021 take 1 tablet by mouth once daily amLODIPine (NORVASC) 2.5 mg tablet Take 1 tablet by mouth once daily. 90 tablet 3 11/05/2020 02/18/2021 Discontinued Comment on above: Take 1 tablet by ross th once daily. TAKE 1 TABLET BY ROSS TH EVERY DAY atenolol 25 mg oral tablet (20 sources) beta-Adrenergic Sadie Start: 08-03-2023 End: 10-25-2024 take 1 tablet by mouth twice daily Atenolol 25 mg tablet Discontinued 25 mg PO TWICE A DAY October 12, 2024 1:00am October 18, 2024 9:33am hr Start: 11-05-2020 End: 02-02-2023 take 1 tablet by mouth twice daily atenolol (TENORMIN) 25 mg tablet Indications: Hypertension, essential Take 1 tablet by mouth twice daily. 180 tablet 1 07/08/2022 02/02/2023 Discontinued Start: 11-12-2014 End: 10-13-2024 take 1 tablet by mouth once daily in the morning Atenolol 50 MG tablet Discontinued 50 mg PO DAILY November 12, 2014 1:00am October 13, 2024 3:13pm hr in the am Start: 11-12-2014 take 50 mg by mouth twice wilmar y Atenolol Active 50 MG PO TWICE A DAY November 12, 2014 1:00am Comment on above: Take 1 tablet by ross th twice daily. Take 1 tablet by ross th two times a day. benzonatate 100 mg oral capsule (5 sources) Non-narcotic Antitussive Start: End: 4 take 1 capsule by mouth three times daily as needed for cough benzonatate (TESSALON PERLES) 100 mg capsule Indications: Productive cough Take 1 capsule by mouth three times a day as needed for cough. 30 capsule 10/29/2023 11/28/2023 Start: 10-22-2020 End: 09-30-2021 take 1 capsule by mouth every eight hours as needed benzonatate (TESSALON PERLES) 100 mg capsule Take 1 capsule by mouth three times daily as needed for Cough. 30 capsule 1 10/22/2020 09/30/2021 Discontinued Comment on above: Take 1 capsule by mo ut three times daily as needed for Cough. Take 1 capsule by mo ut three times a day as needed for cough. cloNIDine hydrochloride 0.2 mg oral tablet (20 sources) Central alpha-2 Adrenergic Agonist Start: 3 End: take 1 tablet by mouth twice daily cloNIDine HCl (CATAPRES) 0.2 mg tablet Indications: Hypertension, essential Take 1 tablet by mouth two times a day. 180 tablet 3 08/22/2024 10/25/2024 Discontinued Start: 07-07-2023 End: 07-14-2023 take 1 tablet by mouth twice daily cloNIDine HCl (CATAPRES) 0.3 mg tablet Indications: Hypertension, essential Take 1 tablet by mouth twice daily. 180 tablet 2 07/07/2023 07/14/2023 Discontinued Start: 06-29-2015 End: 10-18-2024 take 0.1 mg by mouth twice daily Clonidine Hcl 0.2 MG tablet Discontinued 0.1 mg PO TWICE A DAY June 29, 2015 12:00am October 18, 2024 9:33am bp Start: 06-29-2015 End: 01-01-2023 take 1 tablet by mouth twice daily cloNIDine HCl (CATAPRES) 0.2 mg tablet Indications: Hypertension, essential Take 1 tablet by mouth twice daily. 180 tablet 3 01/22/2021 01/02/2022 Discontinued Comment on above: Take 1 tablet by ross twice daily. TAKE 1 TABLET BY ROSS TH TWICE A DAY Take 1 tablet by ross th two times a day. 12 hr guaiFENesin 1200 mg extended release oral tablet (9 sources) Start: 2024 End: 2024 take 1 tablet by mouth twice daily, then take 1 tablet by mouth every twelve hours Guaifenesin (Mucinex) 1,200 mg tablet extended release 12hr Discontinued 1200 mg PO TWICE A DAY 20 0 October 18, 2024 1:00am January 06, 2025 3:49am hydroxychloroquine sulfate 200 mg oral tablet (15 sources) Antimalarial, Antirheumatic Agent Start: 2014 End: 2024 take 1 tablet by mouth twice daily at mealtime Hydroxychloroquine 200 MG tablet Discontinued 200 mg PO TWICE DAILY WITH MEALS November 12, 2014 1:00am October 12, 2024 5:45pm lansoprazole 30 mg delayed release oral capsule (20 sources) Proton Pump Inhibitor Start: 2020 End: 2022 take 1 capsule by mouth twice daily before mealtime lansoprazole (PREVACID) 30 mg capsule TAKE 1 CAPSULE BY MOUTH TWICE DAILY. 1/2 HOUR BEFORE MEALS. 180 capsule 1 09/01/2022 10/28/2022 Discontinued Comment on above: Take 1 capsule by mo [facility] twice daily. 1/2 hour before meals. ondansetron 8 mg oral tablet (15 sources) Serotonin-3 Receptor Antagonist Start: 2014 End: 2024 take 1 tablet by mouth every eight hours as needed for nausea Ondansetron Hcl 8 MG tablet Discontinued 8 mg PO EVERY 8 HOURS NEEDED as needed for Nausea June 29, 2015 12:00am October 12, 2024 5:45pm polyethylene glycol 3350 264568 mg / potassium chloride 2980 mg / sodium bicarbonate 6720 mg / sodium chloride 5840 mg / sodium sulfate 93920 mg powder for oral solution (1 source) Osmotic Laxative Start: 2021 End: 2021 peg 3350-electrolytes (COLYTE) 240-22.72-6.72 -5.84 gram solution Take 4,000 mL by mouth one time only for 1 dose. 4000 mL 0 07/08/2022 07/08/2022 Comment on above: Take 4,000 mL by ross th one time only for 1 dose. raNITIdine 150 mg oral tablet (20 sources) Histamine-2 Receptor Antagonist Start: 2024 End: 2024 take 1 tablet by mouth once daily Ranitidine Hcl 150 mg tablet Discontinued 150 mg PO DAILY October 12, 2024 1:00am October 13, 2024 3:15pm heartburn Start: 06-29-2015 take 1 tablet by ross th twice daily Ranitidine (Zantac) 300 MG tablet Active 300 MG PO TWICE A DAY June 29, 2015 12:00am Start: 06-29-2015 End: 10-12-2024 take 1 tablet by mouth twice daily Ranitidine (Zantac) 300 MG tablet Discontinued 300 mg PO TWICE A DAY June 29, 2015 12:00am October 12, 2024 5:48pm Problems Active Problems Problem Classification Problem Date Documented Da te Episodic/Chronic Acute bronchitis (12 sources) Acute bronchitis; Translations: [Acute bronchitis, unspecified] Episodic Aortic; peripheral; and visceral artery aneurysms (20 sources) Ectasia of thoracic aorta; Translations: [Thoracic aortic ectasia] Onset: 02-04-2023 Chronic Cardiac dysrhythmias (20 sources) Ventricular premature beats; Translations: [Ventricular premature depolarization] Onset: 02-18-2021 02-18-2021 Chronic Chronic kidney disease (20 sources) Chronic kidney disease stage 3B ; Translations: [Stage 3b chronic kidney disease] Onset: 02-09-2015 Resolved: 02-24-2020 01-22-2021 Chronic Congestive heart failure; nonhypertensive (20 sources) Chronic diastolic heart failure; Translations: [Chronic diastolic (congestive) heart failure] Onset: 08-20-2020 08-20-2020 Chronic Deficiency and other anemia (2 sources) Iron deficiency anemia; Translations: [Iron deficiency anemia, unspecified] 02-07-2025 Episodic Deficiency and other anemia (1 source) Iron deficiency anemia, unspecified; Translations: [Iron deficiency anemia, unspecified iron deficiency anemia type] Onset: 05-22-2025 Episodic Diseases of white blood cells (16 sources) Leukocytosis; Translations: [Elevated white blood cell count, unspecified] Onset: 01-13-2025 01-13-2025 Chronic Disorders of lipid metabolism (20 sources) Dyslipidemia; Translations: [Hyperlipidemia, unspecified] Onset: 08-13-2021 08-13-2021 Chronic Diverticulosis and diverticulitis (20 sources) Diverticulosis of colon; Translations: [Diverticulosis of large intestine without perforation or abscess without bleeding] Onset: 09-30-2005 09-30-2005 Chronic E Codes: Fall (1 source) Unspecified fall, initial encounter; Translations: [Fall, initial encounter] Onset: 01-06-2025 Episodic Esophageal disorders (20 sources) Gastro-esophageal reflux disease with esophagitis; Translations: [GERD with esophagitis] Onset: 12-21-2014 Resolved: 12-21-2014 06-29-2018 Chronic Essential hypertension (20 sources) Essential hypertension; Translations: [Essential (primary) hypertension] Onset: 12-18-2010 Resolved: 02-24-2020 12-28-2018 Chronic Fever of unknown origin (1 source) Fever; Translations: [Fever, unspecified] 10-12-2024 Episodic Gout and other crystal arthropathies (20 sources) Gout; Translations: [Gout, unspecified] Onset: 11-18-2010 11-18-2010 Chronic Heart valve disorders (20 sources) Non-rheumatic mitral regurgitation ; Translations: [Nonrheumatic mitral (valve) insufficiency] Onset: 07-29-2024 08-01-2024 Chronic Hypertension with complications and secondary hypertension (20 sources) Hypertensive heart AND chronic kidney disease with congestive heart failure; Translations: [Hypertensive heart and chronic kidney disease with heart failure and stage 1 through stage 4 chronic kidney disease, or unspecified chronic kidney disease] Onset: 04-22-2021 11-29-2021 Chronic Nonspecific chest pain (15 sources) Tight chest; Translations: [Other chest pain] 07-14-2016 Episodic Nutritional deficiencies (20 sources) Vitamin D deficiency; Translations: [Vitamin D deficiency, unspecified] Onset: 12-28-2018 Chronic Osteoarthritis (20 sources) Localized, primary osteoarthritis of the hand; Translations: [Primary osteoarthritis, unspecified hand] Onset: 10-17-2005 10-17-2005 Chronic Other aftercare (1 source) 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; Translations: [Anticoagulated] Onset: 01-06-2025 Episodic Other and unspecified benign neoplasm (2 sources) History of polyp of colon; Translations: [Personal history of colonic polyps] Episodic Other and unspecified benign neoplasm (1 source) Tubular adenoma ; Translations: [Benign neoplasm, unspecified site] Episodic Other circulatory disease (9 sources) Hemorrhage of abdominal cavity structure; Translations: [Hemorrhage, not elsewhere classified] 01-06-2025 Episodic Other circulatory disease (10 sources) Orthostatic hypotension; Translations: [Orthostatic hypotension] Onset: 03-27-2025 03-27-2025 Episodic Other circulatory disease (1 source) Orthostatic hypotension; Translations: [Orthostatic hypotension] Onset: 03-27-2025 Episodic Other gastrointestinal disorders (1 source) Hemoperitoneum; Translations: [Hemoperitoneum] Onset: 01-06-2025 Episodic Other inflammatory condition of skin (1 source) Other psoriatic arthropathy; Translations: [Other psoriatic arthropathy] Onset: 05-20-2025 Chronic Other inflammatory condition of skin (1 source) Itching ; Translations: [Pruritus, unspecified] 02-17-2024 Episodic Other liver diseases (20 sources) Steatosis of liver; Translations: [Fatty (change of) liver, not elsewhere classified] Onset: 08-22-2024 02-23-2024 Chronic Other liver diseases (1 source) Fatty (change of) liver, not elsewhere classified; Translations: [Fatty liver] Onset: 08-22-2024 Chronic Other lower respiratory disease (20 sources) Calcified granuloma of lung; Translations: [Pulmonary fibrosis, unspecified] Onset: 03-07-2015 03-07-2015 Chronic Other lower respiratory disease (1 source) Fibrosis of lung; Translations: [Pulmonary fibrosis, unspecified] Chronic Other lower respiratory disease (1 source) Productive cough ; Translations: [Productive cough] 10-29-2023 Episodic Other lower respiratory disease (11 sources) Dyspnea; Translations: [Shortness of breath] 10-12-2024 Episodic Other nervous system disorders (20 sources) Carpal tunnel syndrome; Translations: [Carpal tunnel syndrome, unspecified upper limb] Onset: 10-17-2005 Resolved: 03-12-2006 03-17-2006 Chronic Other nervous system disorders (1 source) Abnormal gait; Translations: [Unspecified abnormalities of gait and mobility] 05-22-2025 Episodic Other nervous system disorders (1 source) Unspecified abnormalities of gait and mobility; Translations: [Gait disturbance] Onset: 05-22-2025 Episodic Other nutritional; endocrine; and metabolic disorders (1 source) Decrease in appetite; Translations: [Anorexia] 10-25-2024 Episodic Other upper respiratory infections (1 source) Chronic sinusitis, unspecified; Translations: [Unspecified sinusitis (chronic)] 11-11-2024 Chronic Other upper respiratory infections (4 sources) Acute upper respiratory infection; Translations: [Acute upper respiratory infection, unspecified] Onset: 04-24-2025 04-24-2025 Episodic Poisoning by nonmedicinal substances (3 sources) Wasp sting; Translations: [Toxic effect of venom of wasps, accidental (unintentional), initial encounter] 02-17-2024 Episodic Pulmonary heart disease (20 sources) Pulmonary hypertension; Translations: [Pulmonary hypertension, unspecified] Onset: 08-27-2011 08-27-2011 Chronic Respiratory failure; insufficiency; arrest (adult) (1 source) Acute respiratory failure, unspecified whether with hypoxia or hypercapnia; Translations: [Acute respiratory failure, unspecified whether with hypoxia or hypercapnia (HCC)] Onset: 01-06-2025 Episodic Rheumatoid arthritis and related disease (20 sources) Rheumatoid arthritis of multiple joints; Translations: [Rheumatoid arthritis with rheumatoid factor of multiple sites without organ or systems involvement] Onset: 02-27-2006 Resolved: 02-24-2020 12-21-2017 Chronic Skin and subcutaneous tissue infections (2 sources) Cellulitis of left upper limb; Translations: [Cellulitis of left upper limb] 03-16-2024 Episodic Systemic lupus erythematosus and connective tissue disorders (20 sources) Sjogren's syndrome; Translations: [Sicca syndrome, unspecified] Onset: 03-04-2013 Resolved: 11-29-2021 03-04-2013 Chronic Thyroid disorders (20 sources) Subclinical hypothyroidism; Translations: [Other specified hypothyroidism] Onset: 08-22-2024 02-18-2024 Chronic Unclassified (1 source) Appointment is with JOHNNY Jauregui Past or Other Problems Problem Classification Problem Date Documented Da te Episodic/Chronic Abdominal hernia (20 sources) Incisional hernia; Translations: [Incisional hernia without obstruction or gangrene] Onset: 5 06-13-2015 Episodic Abdominal pain (20 sources) Finding of sensation of abdomen; Translations: [Unspecified abdominal pain] Onset: 9 Resolved: 0 Episodic Acute posthemorrhagic anemia (20 sources) Acute posthemorrhagic anemia; Translations: [Acute posthemorrhagic anemia] Onset: 5 01-06-2025 Episodic Administrative/social admission (20 sources) Patient encounter status; Translations: [Other specified counseling] Onset: 2 04-01-2022 Episodic Allergic reactions (20 sources) Inflammatory dermatosis; Translations: [Dermatitis, unspecified] Onset: 4 02-17-2024 Episodic Cardiac dysrhythmias (20 sources) Palpitations; Translations: [Palpitations] Onset: 3 Episodic Coagulation and hemorrhagic disorders (20 sources) Primary thrombocytopenia; Translations: [Other primary thrombocytopenia] Onset: 6 Resolved: 2 11-29-2021 Chronic Crushing injury or internal injury (20 sources) Laceration of spleen; Translations: [Unspecified laceration of spleen, initial encounter] Onset: 5 01-06-2025 Episodic Diabetes mellitus without complication (20 sources) Hyperglycemia; Translations: [Hyperglycemia, unspecified] Onset: 2 12-03-2021 Episodic Diseases of mouth; excluding dental (20 sources) Sialoadenitis; Translations: [Sialoadenitis, unspecified] Onset: 8 Resolved: 0 10-07-2021 Episodic Fluid and electrolyte disorders (20 sources) Hypokalemia; Translations: [Hypokalemia] Onset: 1 01-22-2021 Episodic Hemorrhoids (20 sources) Internal hemorrhoids; Translations: [Other hemorrhoids] Onset: 5 Resolved: 0 02-24-2020 Episodic Immunizations and screening for infectious disease (3 sources) Needs influenza immunization; Translations: [Encounter for immunization] Onset: 4 Episodic Malaise and fatigue (17 sources) Asthenia; Translations: [Weakness] Onset: 5 10-25-2024 Episodic Mycoses (20 sources) Tinea corporis; Translations: [Tinea corporis] Onset: 8 06-29-2018 Episodic Nausea and vomiting (20 sources) Nausea; Translations: [Nausea] Onset: 5 Resolved: 5 Episodic Neoplasms of unspecified nature or uncertain behavior (16 sources) Thrombocytosis; Translations: [Thrombocytosis] Onset: 5 01-13-2025 Episodic Nutritional deficiencies (20 sources) Cobalamin deficiency; Translations: [Deficiency of other specified B group vitamins] Onset: 1 08-13-2021 Episodic Other aftercare (20 sources) Surgical follow-up; Translations: [Encounter for follow-up examination after completed treatment for conditions other than malignant neoplasm] Onset: 6 Resolved: 5 02-08-2015 Episodic Other and unspecified benign neoplasm (20 sources) Benign neoplasm of colon; Translations: [Benign neoplasm of colon, unspecified] Onset: 5 Resolved: 0 02-24-2020 Episodic Other connective tissue disease (20 sources) Tenosynovitis; Translations: [Other synovitis and tenosynovitis, unspecified hand] Onset: 6 Resolved: 0 02-24-2020 Episodic Other connective tissue disease (18 sources) Recurrent falls ; Translations: [Repeated falls] Onset: 5 01-10-2025 Episodic Other connective tissue disease (18 sources) Fall; Translations: [Repeated falls] Onset: 5 01-11-2025 Episodic Other ear and sense organ disorders (20 sources) Impacted cerumen in right ear; Translations: [Impacted cerumen, right ear] Onset: 7 Resolved: 0 02-24-2020 Episodic Other ear and sense organ disorders (20 sources) Otalgia, right ear; Translations: [Otalgia, unspecified] Onset: 7 Resolved: 0 02-24-2020 Episodic Other gastrointestinal disorders (20 sources) Functional diarrhea; Translations: [Functional diarrhea] Onset: 2 Episodic Other gastrointestinal disorders (20 sources) Dysphagia, unspecified; Translations: [Dysphagia, unspecified] Onset: 5 Resolved: 5 Episodic Other gastrointestinal disorders (20 sources) Abdominal bloating; Translations: [Abdominal distension (gaseous)] Onset: 9 Resolved: 0 02-24-2020 Episodic Other inflammatory condition of skin (20 sources) Intertrigo; Translations: [Erythema intertrigo] Onset: 8 06-29-2018 Episodic Other injuries and conditions due to external causes (18 sources) Traumatic injury; Translations: [Injury, unspecified, initial encounter] Onset: 5 01-09-2025 Episodic Other liver diseases (20 sources) Alkaline phosphatase raised; Translations: [Abnormal levels of other serum enzymes] Onset: 2 Episodic Other liver diseases (20 sources) Aspartate aminotransferase serum level raised; Translations: [Elevated AST (SGOT)] Onset: 4 02-17-2024 Episodic Other lower respiratory disease (20 sources) Dyspnea on exertion; Translations: [Dyspnea, unspecified] Onset: 0 08-20-2020 Episodic Other lower respiratory disease (20 sources) Calcified granuloma of lung; Translations: [Other disorders of lung] Onset: 5 03-07-2015 Episodic Other lower respiratory disease (16 sources) Respiratory insufficiency; Translations: [Other abnormalities of breathing] Onset: 5 01-13-2025 Episodic Other lower respiratory disease (1 source) Dyspnea, unspecified; Translations: [Dyspnea, unspecified] Onset: 5 Episodic Other nervous system disorders (16 sources) Acute pain due to injury; Translations: [Acute pain due to trauma] Onset: 5 01-13-2025 Episodic Other non-traumatic joint disorders (8 sources) Shoulder pain; Translations: [Pain in right shoulder] Onset: 1 01-22-2021 Episodic Other non-traumatic joint disorders (20 sources) Bilateral chronic pain of upper limbs; Translations: [Pain in right shoulder] Onset: 1 01-22-2021 Episodic Other non-traumatic joint disorders (20 sources) Pain of left wrist; Translations: [Pain in left wrist] Onset: 4 08-22-2024 Episodic Other non-traumatic joint disorders (1 source) Pain in left wrist; Translations: [Left wrist pain] Onset: 4 Episodic Other nutritional; endocrine; and metabolic disorders (20 sources) Weight gain; Translations: [Abnormal weight gain] Onset: 4 02-17-2024 Episodic Other nutritional; endocrine; and metabolic disorders (20 sources) Weight increased; Translations: [Abnormal weight gain] Onset: 4 02-17-2024 Episodic Other nutritional; endocrine; and metabolic disorders (18 sources) H/O: hypothyroidism; Translations: [Personal history of other endocrine, nutritional and metabolic disease] Onset: 5 01-09-2025 Episodic Other screening for suspected conditions (not mental disorders or infectious disease) (20 sources) Thyroid function tests abnormal; Translations: [Abnormal results of thyroid function studies] Onset: 4 02-17-2024 Episodic Residual codes; unclassified (20 sources) Bilateral lower limb edema; Translations: [Localized edema] Onset: 7 12-15-2016 Episodic Residual codes; unclassified (18 sources) Delirium; Translations: [Disorientation, unspecified] Onset: 5 01-10-2025 Episodic Residual codes; unclassified (18 sources) For resuscitation; Translations: [Other specified health status] Onset: 5 01-10-2025 Episodic Spondylosis; intervertebral disc disorders; other back problems (20 sources) Neck pain; Translations: [Cervicalgia] Onset: 1 01-22-2021 Episodic Viral infection (11 sources) Respiratory syncytial virus infection; Translations: [Other specified viral diseases] Onset: 5 10-26-2024 Episodic Results Test Name Value Interpretation Reference Range Facility CBC W/Diff, Automatedon 09-0 Absolute Lymph 1.83 X10 3/uL Normal 0.83-4.51 [facility] Comment on above: Performed By: #### L 100.0100 #### [facility] [address] [place], [address] Absolute Neut 23.9 X10 3/uL High 2.0-7.7 [facility] Comment on above: Performed By: #### L 100.0100 #### [facility] [address] [place], [address] Basophils/100 WBC (Bld) 0.3 % Normal 0-1 [facility] Comment on above: Performed By: #### L 100.0100 #### [facility] [address] [place], [address] Eosinophils/100 WBC (Bld) 0.2 % Normal 0-5 [facility] Comment on above: Performed By: #### L 100.0100 #### [facility] [address] [place], [address] Erythrocyte distribution width (RBC) [Ratio] 27.4 % High 11.6-14.6 [facility] Rehabilitation Comment on above: Performed By: #### L 100.0100 #### [facility] [address] [place], [address] Hematocrit (Bld) [Volume fraction] 35.3 % Low 37-47 [facility] Comment on above: Performed By: #### L 100.0100 #### [facility] [address] [place], [address] Hemoglobin (Bld) [Mass/Vol] 10.8 g/dL Low 12.0-15.0 [facility] Comment on above: Performed By: #### L 100.0100 #### [facility] [address] [place], [address] IG% 2.800 High 0.0-0.9 [facility] Comment on above: Result Comment: IG% - Immature Granulocytes (promyelocytes, myelocytes and metamyelocytes) > 1% indicates that a LEFT SHIFT is Present. Performed By: #### L 100.0100 #### [facility] [address] [place], [address] Lymphocytes/100 WBC (Bld) 6.8 % Low 19-41 [facility] Comment on above: Performed By: #### L 100.0100 #### [facility] [address] [place], [address] MCH (RBC) [Entitic mass] 24.4 pg Low 27.0-32.0 [facility] Comment on above: Performed By: #### L 100.0100 #### [facility] [address] [place], [address] MCHC (RBC) [Mass/Vol] 30.6 g/dL Low 32-36 [facility] Comment on above: Performed By: #### L 100.0100 #### [facility] [address] [place], [address] MCV (RBC) [Entitic vol] 79.7 fL Low 81-99 [facility] Comment on above: Performed By: #### L 100.0100 #### [facility] [address] [place], [address] Monocytes/100 WBC (Bld) 0.6 % Normal 0-10 [facility] Comment on above: Performed By: #### L 100.0100 #### [facility] [address] [place], [address] Neutrophils/100 WBC (Bld) 89.3 % High 47-70 [facility] Comment on above: Performed By: #### L 100.0100 #### [facility] [address] [place], [address] Nucleated RBC (Bld) [#/Vol] 0 10*3/uL Normal 0-5 [facility] Comment on above: Performed By: #### L 100.0100 #### [facility] [address] [place], [address] Platelet mean volume (Bld) [Entitic vol] 10.8 fL Normal 6.2-12.0 [facility] Comment on above: Performed By: #### L 100.0100 #### [facility] [address] [place], [address] Platelets (Bld) [#/Vol] 286 10*3/uL Normal 150-450 [facility] Comment on above: Performed By: #### L 100.0100 #### [facility] [address] [place], [address] RBC (Bld) [#/Vol] 4.43 10*6/uL Normal 4.2-5.4 [facility] Comment on above: Performed By: #### L 100.0100 #### [facility] [address] [place], [address] RDW SD 75.7 fl High 35.1-43.9 [facility] Comment on above: Performed By: #### L 100.0100 #### [facility] [address] [place], [address] WBC (Bld) [#/Vol] 26.8 10*3/uL High 4.4-11.0 [facility] Comment on above: Performed By: #### L 100.0100 #### [facility] [address] [place], [address] CNOVon 05-22-2025 CNOV Office Visit (FAMPWS ) MARY CRANE ([id number]) 1940 F TXT Date Time Provider Department 05/22/25 1:40 PM [facility] During your visit today, we recorded the following information about you: Temperature Pulse Respiration Blood pressure 97 degrees 60/minute 16/minute 120/80 Weight 69.9 kg Atul Harvey DO 05/22/2025 2:45 PM Signed Slo fe or ferrous sulfate iron tablet or chewable/gummy with 45-67 mg of iron 1-2 times a day with a meal. Recheck labs in 4-6 weeks Atul Harvey DO 05/23/2025 7:44 AM Signed CC: Mary Crane is a 84 year old female who presents to the office for follow up HPI: At last OFFICE VISIT January 2025 Patient is present with her daughter Samanta today in the office Feels that she had a downward spiral in her health After she had RSV viral infection and was seen in the hospital for her symptoms. 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 Then later fell against her left side and then 2-3 weeks after this fell when she tripped over her cat- falling against her left side. She was assessed by [place] [facility] office and had xrays to make sure no fractures or bone injuries overall. The specialist wasn't sure where the pain was happening from as the trigger. Was started on PHYSICAL THERAPY at home with benefit x multiple episodes Started not feeling well at 12 midnight on 01/06- felt that she was lightheaded and dizzy, she was sitting on the toilet and felt like she was going to pass out- she did fall against the edge of her bathtub and passed out before her family was able to come to help her, they live right beside her. She had a distended abdomen area and was jaundiced and her left flank was painful and was also having a lot of left shoulder pain as well for referral. Her daughter and son in law took her to the hospital EMERGENCY DEPARTMENT. On 01/06/25 she was seen in the EMERGENCY DEPARTMENT and had CT abdomen and pelvis- she had a spleen laceration and bleeding into the abdominal wall. She had 5 units of PRBC before she was transported to another hospital for potential surgery at [facility]. 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 Last saw [facility] Car Re[employer]er in Oct at [facility]- he is managing the blood thinners. Bowel health is back to normal- denies constipation Mood, stable, has a lot of support from her family She transported to [facility] for 11 days after discharge from the hospital. She has now been home for 4 days. Was on oxygen therapy after this episode but oxygen levels at home have stayed stable. She would like to discontinue this if able since doesn't feel she is having any dyspnea symptoms. 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 She feels that she is slowly recovering her energy Still with fatigue symptoms Recently saw her Surgeon Assistant for her inflammatory arthritis, was found to have anemia Hemoglobin in the 9's, in January after splenectomy it was in the 10s Denies any bleeding bladder or colon or other area Admits that she hasn't been eating much iron rich foods but willing to improve this. No recent falls Daughter Samanta is present today in office- she lives beside her and she helps her with cooking and cleaning etc. PAST MEDICAL HISTORY Diagnosis Date Advance care planning 04/01/2022 Daughter Noemy Arrhythmia Benign neoplasm of colon Chronic kidney disease 02/09/2015 Diverticulosis of colon (without mention of hemorrhage) IFG (impaired fasting glucose) 03/2022 Incisional hernia 07/06/2015 Internal hemorrhoids without mention of complication Rheumatoid arthritis(714.0) Rheumatoid arthritis(714.0) Sicca syndrome (HCC) Unspecified essential hypertension PAST SURGICAL HISTORY Procedure Laterality Date CATARACT EXTRACTION HX 10/12/2004 COLONOSCOPY FLX DX W/COLLJ SPEC WHEN PFRMD 09/30/2005 Colonoscopy COLONOSCOPY FLX DX W/COLLJ SPEC WHEN PFRMD 07/28/2016 Colonoscopy COLONOSCOPY SCREENING 09/30/2022 multiple adenomatous polyps, repeat in 3 yrs ESOPHAGOGASTRODUODENOS COPY TRANSORAL DIAGNOSTIC 12/21/2014 EGD LAPAROSCOPY SURG CHOLECYSTECTOMY 02/20/2015 NEUROPLASTY AND/TRANSPOS MEDIAN NRV CARPAL TUNNE 02/12/2006 Carpal tunnel decomp Left NEUROPLASTY AND/TRANSPOS MEDIAN NRV CARPAL TUNNE 02/27/2006 Carpal tunnel decomp Right PAST SURGICAL HISTORY OF 10/12/2001 hemorrhoidectomy , bladder, and umbilical hernia repair PAST SURGICAL HISTORY OF 08/12/2006 bladder suspension REPAIR FIRST ABDOMINAL WALL HERNIA 07/06/2015 with mesh VAGINAL HYSTERECTOMY UTERUS 250 GM/< 10/12/1983 Hysterectomy, vaginal and bladder tacked up Current Outpatient Medications Medication Sig allopurinol (ZYLOPRIM) 100 mg tablet (more content not included)... Normal [facility] CBC panel Auto (Bld)on 05-18 Erythrocyte distribution width (RBC) [Ratio] 20.4 % High 11.5-15.0 [facility] Comment on above: Order Comment: Speci men Type: BLOOD SPECIMEN Ordering Facility: [facility] Address: [address] [place] [address] Performed By: #### 5 8410-2 #### [facility] CLIA [id number] [address] [place] [address] [place] Hematocrit (Bld) [Volume fraction] 34.0 % Low 36.0-46.0 [facility] Comment on above: Order Comment: Speci men Type: BLOOD SPECIMEN Ordering Facility: [facility] Address: [address] [place] [address] Performed By: #### 5 8410-2 #### [facility] CLIA [id number] [address] [place] [address] [place] Hemoglobin (Bld) [Mass/Vol] 9.9 g/dL Low 11.5-15.5 [facility] Comment on above: Order Comment: Speci men Type: BLOOD SPECIMEN Ordering Facility: [facility] Address: [address] [place] [address] Performed By: #### 5 8410-2 #### [facility] CLIA [id number] [address] [place] [address] [place] MCH (RBC) [Entitic mass] 22.0 pg Low 26.0-34.0 [facility] Comment on above: Order Comment: Speci men Type: BLOOD SPECIMEN Ordering Facility: [facility] Address: [address] [place] [address] Performed By: #### 5 8410-2 #### [facility] CLIA [id number] [address] [place] [address] [place] MCHC (RBC) [Mass/Vol] 29.1 g/dL Low 30.5-36.0 [facility] Comment on above: Order Comment: Speci men Type: BLOOD SPECIMEN Ordering Facility: [facility] Address: [address] [place] [address] Performed By: #### 5 8410-2 #### [facility] CLIA [id number] [address] [place] [address] [place] MCV (RBC) [Entitic vol] 75.7 fL Low 80.0-100.0 [facility] Comment on above: Order Comment: Speci men Type: BLOOD SPECIMEN Ordering Facility: [facility] Address: [address] [place] [address] Performed By: #### 5 8410-2 #### [facility] CLIA [id number] [address] [place] [address] [place] Nucleated RBC (Bld) [#/Vol] 10*3/uL Normal <0.01 [facility] Comment on above: Order Comment: Speci men Type: BLOOD SPECIMEN Ordering Facility: [facility] Address: [address] [place] [address] Performed By: #### 5 8410-2 #### [facility] CLIA [id number] [address] [place] [address] [place] Platelet mean volume (Bld) [Entitic vol] 11.2 fL Normal 9.0-12.7 [facility] Comment on above: Order Comment: Speci men Type: BLOOD SPECIMEN Ordering Facility: [facility] Address: [address] [place] [address] Performed By: #### 5 8410-2 #### [facility] CLIA [id number] [address] [place] [address] [place] Platelets (Bld) [#/Vol] 400 10*3/uL Normal 150-400 [facility] Comment on above: Order Comment: Speci men Type: BLOOD SPECIMEN Ordering Facility: [facility] Address: [address] [place] [address] Performed By: #### 5 8410-2 #### [facility] CLIA [id number] [address] [place] [address] [place] RBC (Bld) [#/Vol] 4.49 10*6/uL Normal 3.90-5.20 [facility] Comment on above: Order Comment: Speci men Type: BLOOD SPECIMEN Ordering Facility: [facility] Address: [address] [place] [address] Performed By: #### 5 8410-2 #### [facility] CLIA [id number] [address] [place] [address] [place] WBC (Bld) [#/Vol] 9.11 10*3/uL Normal 3.70-11.00 [facility] Comment on above: Order Comment: Speci men Type: BLOOD SPECIMEN Ordering Facility: [facility] Address: [address] [place] [address] Performed By: #### 5 8410-2 #### [facility] CLIA [id number] [address] [place] [address] [place] Comprehensive metabolic 2000 panelon 05-18-2025 Albumin [Mass/Vol] 3.7 g/dL Low 3.9-4.9 [facility] Comment on above: Order Comment: Speci men Type: BLOOD SPECIMEN Ordering Facility: [facility] Address: [address] [place] [address] Performed By: #### 2 4323-8, 3016-3, 78505-6, 3024-7 #### [facility] CLIA [id number] [address] [place] [address] [place] ALP [Catalytic activity/Vol] 94 U/L Normal 34-123 [facility] Comment on above: Order Comment: Speci men Type: BLOOD SPECIMEN Ordering Facility: [facility] Address: [address] [place] [address] Performed By: #### 2 4323-8, 3016-3, 72385-9, 3024-7 #### [facility] CLIA [id number] [address] [place] [address] [place] ALT [Catalytic activity/Vol] 23 U/L Normal 7-38 [facility] Comment on above: Order Comment: Speci men Type: BLOOD SPECIMEN Ordering Facility: [facility] Address: [address] [place] [address] Performed By: #### 2 4323-8, 3016-3, 72781-9, 3024-7 #### [facility] CLIA [id number] [address] [place] [address] [place] Anion gap [Moles/Vol] 13 mmol/L Normal 8-15 [facility] Comment on above: Order Comment: Speci men Type: BLOOD SPECIMEN Ordering Facility: [facility] Address: [address] [place] [address] Performed By: #### 2 4323-8, 3016-3, 78568-9, 3024-7 #### [facility] CLIA [id number] [address] [place] [address] [place] AST [Catalytic activity/Vol] 34 U/L Normal 13-35 [facility] Comment on above: Order Comment: Speci men Type: BLOOD SPECIMEN Ordering Facility: [facility] Address: [address] [place] [address] Performed By: #### 2 4323-8, 3016-3, 18737-6, 3024-7 #### [facility] CLIA [id number] [address] [place] [address] [place] Bilirubin [Mass/Vol] 0.6 mg/dL Normal 0.2-1.3 [facility] Comment on above: Order Comment: Speci men Type: BLOOD SPECIMEN Ordering Facility: [facility] Address: [address] [place] [address] Performed By: #### 2 4323-8, 3016-3, 83662-4, 3024-7 #### [facility] CLIA [id number] [address] [place] [address] [place] Calcium [Mass/Vol] 9.7 mg/dL Normal 8.5-10.2 [facility] Comment on above: Order Comment: Speci men Type: BLOOD SPECIMEN Ordering Facility: [facility] Address: [address] [place] [address] Performed By: #### 2 4323-8, 3016-3, 44858-1, 3024-7 #### [facility] CLIA [id number] [address] [place] [address] [place] Chloride [Moles/Vol] 100 mmol/L Normal 98-107 [facility] Comment on above: Order Comment: Speci men Type: BLOOD SPECIMEN Ordering Facility: [facility] Address: [address] [place] [address] Performed By: #### 2 4323-8, 3016-3, 55032-9, 3024-7 #### [facility] CLIA [id number] [address] [place] [address] [place] CO2 [Moles/Vol] 24 mmol/L Normal 22-30 [facility] Comment on above: Order Comment: Speci men Type: BLOOD SPECIMEN Ordering Facility: [facility] Address: [address] [place], [place] [address] Performed By: #### 2 4323-8, 3016-3, 11314-2, 3024-7 #### [facility] CLIA [id number] [address] [place] [address] [place] Creatinine [Mass/Vol] 1.22 mg/dL High 0.58-0.96 [facility] Comment on above: Order Comment: Speci men Type: BLOOD SPECIMEN Ordering Facility: [facility] Address: [address] [place] [address] Performed By: #### 2 4323-8, 3016-3, 93185-5, 3024-7 #### [facility] CLIA [id number] [address] [place] [address] [place] eGFRcr SerPlBld CKD-EPI 2020 44 mL/min/1.73m??? Low >=60 [facility] Comment on above: Order Comment: Speci men Type: BLOOD SPECIMEN Ordering Facility: [facility] Address: [address] [place] [address] Result Comment: Ely mated Glomerular Filtration Rate (eGFR) is calculated using the 2020 CKD-EPI creatinine equation. This equation utilizes serum creatinine, sex, and age as parameters. The creatinine assay has traceable calibration to isotope dilution-mass spectrometry. Refer to KDIGO guidelines for clinical interpretation. In patients with unstable renal function, e.g. those with acute kidney injury, the eGFR may not accurately reflect actual GFR. Performed By: #### 2 4323-8, 3016-3, 83860-6, 3024-7 #### [facility] CLIA [id number] [address] [place] [address] [place] Glucose [Mass/Vol] 81 mg/dL Normal 74-99 [facility] Comment on above: Order Comment: Javadi men Type: BLOOD SPECIMEN Ordering Facility: [facility] Address: [address] [place] [address] Result Comment: The [place] [employer] (ADA) provides guidance for cutoff values for fasting glucose and random glucose. The ADA defines fasting as no caloric intake for at least 8 hours. Fasting plasma glucose results between 100 to 125 mg/dL indicate increased risk for diabetes (prediabetes). Fasting plasma glucose results greater than or equal to 126 mg/dL meet the criteria for diagnosis of diabetes. In the absence of unequivocal hyperglycemia, results should be confirmed by repeat testing. In a patient with classic symptoms of hyperglycemia or hyperglycemic crisis, random plasma glucose results greater than or equal to 200 mg/dL meet the criteria for diagnosis of diabetes. Reference: Standards of Medical Care in Diabetes 2016, [place] [employer]. Diabetes Care. 2016.39(Suppl 1). Performed By: #### 2 4323-8, 3016-3, 40479-9, 3024-7 #### [facility] CLIA [id number] [address] [place] [address] [place] Potassium [Moles/Vol] 4.4 mmol/L Normal 3.7-5.1 [facility] Comment on above: Order Comment: Speci men Type: BLOOD SPECIMEN Ordering Facility: [facility] Address: [address] [place] [address] Performed By: #### 2 4323-8, 3016-3, 57228-7, 3024-7 #### [facility] CLIA [id number] [address] [place] [address] [place] Protein [Mass/Vol] 7.9 g/dL Normal 6.3-8.0 [facility] Comment on above: Order Comment: Adelita austin Type: BLOOD SPECIMEN Ordering Facility: [facility] Address: [address] [place] [address] Performed By: #### 2 4323-8, 3016-3, 34364-3, 3024-7 #### [facility] CLIA [id number] [address] [place] [address] [place] Sodium [Moles/Vol] 137 mmol/L Normal 136-144 [facility] Comment on above: Order Comment: Javadi men Type: BLOOD SPECIMEN Ordering Facility: [facility] Address: [address] [place] [address] Performed By: #### 2 4323-8, 3016-3, 01849-0, 3024-7 #### [facility] CLIA [id number] [address] [place] [address] [place] Urea nitrogen [Mass/Vol] 18 mg/dL Normal 7-21 [facility] Comment on above: Order Comment: Speci men Type: BLOOD SPECIMEN Ordering Facility: [facility] Address: [address] [place] [address] Performed By: #### 2 4323-8, 3016-3, 38786-7, 3024-7 #### [facility] CLIA [id number] [address] [place] [address] [place] Iron and Iron binding capaci ty panelon 05-18-2025 Iron [Mass/Vol] 25 ug/dL Low 41-186 [facility] Comment on above: Order Comment: Speci men Type: BLOOD SPECIMEN Ordering Facility: [facility] Address: [address] [place] [address] Performed By: #### 2 4323-8, 3016-3, 73204-1, 3024-7 #### [facility] CLIA [id number] [address] [place] [address] [place] Iron binding capacity [Mass/Vol] 398 ug/dL High 232-386 [facility] Comment on above: Order Comment: Speci men Type: BLOOD SPECIMEN Ordering Facility: [facility] Address: [address] [place] [address] Performed By: #### 2 4323-8, 3016-3, 86432-8, 3024-7 #### [facility] CLIA [id number] [address] [place] [address] [place] Iron/TIBC [Molar ratio] 6.3 % Low 15.0-57.0 [facility] Comment on above: Order Comment: Speci men Type: BLOOD SPECIMEN Ordering Facility: [facility] Address: [address] [place] [address] Performed By: #### 2 4323-8, 3016-3, 15823-8, 3024-7 #### [facility] CLIA [id number] [address] [place] [address] [place] T4 Free SerPl-mCncon 025 Free T4 [Mass/Vol] 1.9 ng/dL High 0.9-1.7 [facility] Comment on above: Order Comment: Speci men Type: BLOOD SPECIMEN Ordering Facility: [facility] Address: [address] [place] [address] Performed By: #### 2 4323-8, 3016-3, 68953-0, 3024-7 #### [facility] CLIA [id number] [address] [place] [address] [place] TSH SerPl-aCncon 05-18-2025 TSH Qn 1.340 m[IU]/L Normal 0.270-4.200 [facility] Comment on above: Order Comment: Speci men Type: BLOOD SPECIMEN Ordering Facility: [facility] Address: [address] [place] [address] Performed By: #### 2 4323-8, 3016-3, 17398-3, 3024-7 #### [facility] CLIA [id number] [address] [place] [address] [place] Absolute lymphocyte countOrd ered By: Kimmie Hussein on 05-08-2025 Lymphocytes Auto (Unsp spec) [#/Vol] 4.49 10*3/uL 0.83-4.51 [facility] Absolute neutrophil countOrd ered By: Kimmie Hussein on 05-08-2025 Neutrophils (Bld) [#/Vol] 4.2 10*3/uL 2.0-7.7 [facility] Anion gap in Serum or Plasma Ordered By: Kimmie Hussein on 05-08-2025 Anion gap [Moles/Vol] 10 mmol/L 5-15 [facility] Automated lymphocyte count a s percentage of total leukocytesOrdered By: Kimmie Hussein on 05-08-2025 Lymphocytes/100 WBC Auto (Unsp spec) 45.3 % High 19-41 [facility] BUN/creatinine ratioOrdered By: Kimmiedeborah Hussein on 05-08-2025 Urea nitrogen/Creatinine [Mass ratio] 13.4 mg/mg 10-20 [facility] Basophil percentageOrdered B y: Kimmie Hussein on 05-08-2025 Basophils/100 WBC (Bld) 1.2 % High 0-1 [facility] Bilirubin, totalOrdered By: Crisp [facility] on 05-08-2025 Bilirubin [Mass/Vol] 0.55 mg/dL 0.00-1.30 [facility] CBC W/Diff, Automatedon 04-12 Absolute Lymph 4.49 X10 3/uL Normal 0.83-4.51 [facility] Comment on above: Performed By: #### L 100.0100, L500.4050 #### [facility] [address] [place], [address] Absolute Neut 4.2 X10 3/uL Normal 2.0-7.7 [facility] Comment on above: Performed By: #### L 100.0100, L500.4050 #### [facility] [address] [place], [address] Basophils/100 WBC (Bld) 1.2 % High 0-1 [facility] Comment on above: Performed By: #### L 100.0100, L500.4050 #### [facility] [address] [place], [address] Eosinophils/100 WBC (Bld) 1.5 % Normal 0-5 [facility] Comment on above: Performed By: #### L 100.0100, L500.4050 #### [facility] [address] [place], [address] Erythrocyte distribution width (RBC) [Ratio] 19.2 % High 11.6-14.6 [facility] Comment on above: Performed By: #### L 100.0100, L500.4050 #### [facility] [address] [place], [address] Hematocrit (Bld) [Volume fraction] 33.9 % Low 37-47 [facility] Comment on above: Performed By: #### L 100.0100, L500.4050 #### [facility] [address] [place], [address] Hemoglobin (Bld) [Mass/Vol] 9.9 g/dL Low 12.0-15.0 [facility] Comment on above: Performed By: #### L 100.0100, L500.4050 #### [facility] [address] [place], [address] IG% 0.300 Normal 0.0-0.9 [facility] Comment on above: Result Comment: IG% - Immature Granulocytes (promyelocytes, myelocytes and metamyelocytes) > 1% indicates that a LEFT SHIFT is Present. Performed By: #### L 100.0100, L500.4050 #### [facility] [address] [place], [address] Lymphocytes/100 WBC (Bld) 45.3 % High 19-41 [facility] Comment on above: Performed By: #### L 100.0100, L500.4050 #### [facility] [address] [place], [address] MCH (RBC) [Entitic mass] 22.0 pg Low 27.0-32.0 [facility] Comment on above: Performed By: #### L 100.0100, L500.4050 #### [facility] [address] [place], [address] MCHC (RBC) [Mass/Vol] 29.2 g/dL Low 32-36 [facility] Comment on above: Performed By: #### L 100.0100, L500.4050 #### [facility] [address] [place], [address] MCV (RBC) [Entitic vol] 75.2 fL Low 81-99 [facility] Comment on above: Performed By: #### L 100.0100, L500.4050 #### [facility] [address] [place], [address] Monocytes/100 WBC (Bld) 9.9 % Normal 0-10 [facility] Comment on above: Performed By: #### L 100.0100, L500.4050 #### [facility] [address] [place], [address] Neutrophils/100 WBC (Bld) 41.8 % Low 47-70 [facility] Comment on above: Performed By: #### L 100.0100, L500.4050 #### [facility] [address] [place], [address] Nucleated RBC (Bld) [#/Vol] 0 10*3/uL Normal 0-5 [facility] Comment on above: Performed By: #### L 100.0100, L500.4050 #### [facility] [address] [place], [address] Platelet mean volume (Bld) [Entitic vol] 11.9 fL Normal 6.2-12.0 [facility] Comment on above: Performed By: #### L 100.0100, L500.4050 #### [facility] [address] [place], [address] Platelets (Bld) [#/Vol] 415 10*3/uL Normal 150-450 [facility] Comment on above: Performed By: #### L 100.0100, L500.4050 #### [facility] [address] [place], [address] RBC (Bld) [#/Vol] 4.51 10*6/uL Normal 4.2-5.4 [facility] Comment on above: Performed By: #### L 100.0100, L500.4050 #### [facility] [address] [place], [address] RDW SD 50.8 fl High 35.1-43.9 [facility] Comment on above: Performed By: #### L 100.0100, L500.4050 #### [facility] [address] [place], [address] WBC (Bld) [#/Vol] 9.9 10*3/uL Normal 4.4-11.0 [facility] Comment on above: Performed By: #### L 100.0100, L500.4050 #### [facility] [address] [place], [address] Carbon dioxide, total [Moles /volume] in Central venous bloodOrdered By: Kimmie Hussein on 05-08-2025 CO2 [Moles/Vol] 25.0 mmol/L 21.0-32.0 [facility] Chloride assayOrdered By: Thad Hussein on 05-08-2025 Chloride [Moles/Vol] 103 mmol/L 98-108 [facility] Comprehensive Metabolic Prof ilon 05-08-2025 Albumin [Mass/Vol] 3.7 g/dL Normal 3.4-4.8 [facility] Comment on above: Performed By: #### L 100.0100, L500.4050 #### [facility] [address] [place], [address] Albumin/Globulin [Mass ratio] 0.9 {ratio} Normal 0.9-2.4 [facility] Comment on above: Performed By: #### L 100.0100, L500.4050 #### [facility] [address] [place], [address] ALK PHOS 99 U/L Normal 35-104 [facility] Comment on above: Performed By: #### L 100.0100, L500.4050 #### [facility] [address] [place], [address] ALT [Catalytic activity/Vol] 20 U/L Normal <=34 [facility] Comment on above: Performed By: #### L 100.0100, L500.4050 #### [facility] [address] [place], [address] AST [Catalytic activity/Vol] 32 U/L Normal <=31 [facility] Comment on above: Performed By: #### L 100.0100, L500.4050 #### [facility] [address] [place], [address] Bilirubin [Mass/Vol] 0.55 mg/dL Normal 0.00-1.30 [facility] Comment on above: Performed By: #### L 100.0100, L500.4050 #### [facility] [address] [place], [address] BUN/CRE 13.4 RATIO Normal 10-20 [facility] Comment on above: Performed By: #### L 100.0100, L500.4050 #### [facility] [address] [place], [address] Calcium [Mass/Vol] 9.2 mg/dL Normal 7.6-11.0 [facility] Comment on above: Performed By: #### L 100.0100, L500.4050 #### [facility] [address] [place], [address] Chloride [Moles/Vol] 103 mmol/L Normal 98-108 [facility] Comment on above: Performed By: #### L 100.0100, L500.4050 #### [facility] [address] [place], [address] CO2 [Moles/Vol] 25.0 mmol/L Normal 21.0-32.0 [facility] Comment on above: Performed By: #### L 100.0100, L500.4050 #### [facility] [address] [place], [address] Creatinine [Mass/Vol] 1.09 mg/dL Normal 0.70-1.20 [facility] Comment on above: Performed By: #### L 100.0100, L500.4050 #### [facility] [address] [place], [address] GAP 10 Normal 5-15 [facility] Comment on above: Performed By: #### L 100.0100, L500.4050 #### [facility] [address] [place], [address] GFR/1.73 sq M.predicted among non-blacks MDRD (S/P/Bld) [Vol rate/Area] 50 mL/min/{1.73_m2} Low >60 [facility] Comment on above: Result Comment: mL/m in/1.73m2 CKD-EPI Creatinine Equation (2020) Performed By: #### L 100.0100, L500.4050 #### [facility] [address] [place], [address] Globulin (S) [Mass/Vol] 4.2 g/dL Normal 2.2-4.2 [facility] Comment on above: Performed By: #### L 100.0100, L500.4050 #### [facility] [address] [place], [address] Glucose [Mass/Vol] 99 mg/dL Normal 70-99 [facility] Comment on above: Performed By: #### L 100.0100, L500.4050 #### [facility] [address] [place], [address] Potassium [Moles/Vol] 3.9 mmol/L Normal 3.3-5.1 [facility] Comment on above: Performed By: #### L 100.0100, L500.4050 #### [facility] [address] [place], [address] Sodium [Moles/Vol] 139 mmol/L Normal 133-145 [facility] Comment on above: Performed By: #### L 100.0100, L500.4050 #### [facility] [address] [place], [address] T PROT 7.9 g/dL Normal 5.9-8.4 [facility] Comment on above: Performed By: #### L 100.0100, L500.4050 #### [facility] [address] [place], [address] Urea nitrogen [Mass/Vol] 15 mg/dL Normal 4-19 [facility] Comment on above: Performed By: #### L 100.0100, L500.4050 #### [facility] [address] [place], [address] Eosinophil percentageOrdered By: Kimmie Hussein on 05-08-2025 Eosinophils/100 WBC (Bld) 1.5 % 0-5 [facility] Erythrocyte distribution wid th ratioOrdered By: Kimmie Hussein on 05-08-2025 Erythrocyte distribution width (RBC) [Ratio] 19.2 % High 11.6-14.6 [facility] Erythrocyte distribution wid th standard deviationOrdered By: Kimmie Hussein on 05-08-2025 Erythrocyte distribution width (RBC) [Ratio] 50.8 fl High 35.1-43.9 [facility] Glomerular filtration rate ( GFR) estimation/1.73 sq m using serum, plasma, or whole bOrdered By: Kimmie Hussein on 05-08-2025 GFR/1.73 sq M.predicted among non-blacks MDRD (S/P/Bld) [Vol rate/Area] 50 mL/min/{1.73_m2} Low >60 [facility] Comment on above: mL/min/1.73m2 CKD-EP I Creatinine Equation (2020) Hematocrit Auto (Bld) [Volum e fraction]Ordered By: Kimmie Hussein on 05-08-2025 Hematocrit (Bld) [Volume fraction] 33.9 % Low 37-47 [facility] Hemoglobin measurementOrdere d By: Kimmie Hussein on 05-08-2025 Hemoglobin (Bld) [Mass/Vol] 9.9 g/dL Low 12.0-15.0 [facility] Immature granulocytes/100 WB C Auto (Bld)Ordered By: Kimmie Hussein on 05-08-2025 Immature granulocytes/100 WBC (Bld) 0.300 % 0.0-0.9 [facility] Comment on above: IG% - Immature Granu locytes (promyelocytes, myelocytes and metamyelocytes) > 1% indicates that a LEFT SHIFT is Present. Laboratory - Chemistry and C hemistry - challengeOrdered By: Kimmie Hussein on 05-08-2025 AST [Catalytic activity/Vol] 32 U/L <32 [facility] MCV (mean corpuscular volume ) determinationOrdered By: Kimmie Hussein on 05-08-2025 MCV (RBC) [Entitic vol] 75.2 fL Low 81-99 [facility] Mean corpuscular hemoglobin (MCH) determinationOrdered By: Kimmie Hussein on 05-08-2025 MCH (RBC) [Entitic mass] 22.0 pg Low 27.0-32.0 [facility] Mean corpuscular hemoglobin concentration (MCHC) determinationOrdered By: Kimmie Hussein on 05-08-2025 MCHC (RBC) [Mass/Vol] 29.2 g/dL Low 32-36 [facility] Mean platelet volume determi nationOrdered By: Kimmie Hussein on 05-08-2025 Platelet mean volume (Bld) [Entitic vol] 11.9 fL 6.2-12.0 [facility] Monocyte percentageOrdered B y: Kimmie Hussein on 05-08-2025 Monocytes/100 WBC (Bld) 9.9 % 0-10 [facility] Neutrophil percentageOrdered By: Kimmie Hussein on 05-08-2025 Neutrophils/100 WBC (Bld) 41.8 % Low 47-70 [facility] Nucleated red blood cell per centageOrdered By: Kimmie Hussein on 05-08-2025 Nucleated RBC/100 WBC (Bld) [Ratio] 0 % 0-5 [facility] Platelet countOrdered By: Thad Hussein on 05-08-2025 Platelets (Bld) [#/Vol] 415 10*3/uL 150-450 [facility] Potassium measurement (mass/ volume)Ordered By: Kimmie Hussein on 05-08-2025 Potassium (Unsp spec) [Mass/Vol] 3.9 mmol/L 3.3-5.1 [facility] RBC Auto (Bld) [#/Vol]Ordere d By: Kimmie Hussein on 05-08-2025 RBC (Bld) [#/Vol] 4.51 10*6/uL 4.2-5.4 [facility] Serum creatinine measurement (mass/volume)Ordered By: Kimmie Hussein on 05-08-2025 Creatinine [Mass/Vol] 1.09 mg/dL 0.70-1.20 [facility] Serum globulin measurementOr dered By: Kimmie Hussein on 05-08-2025 Globulin (S) [Mass/Vol] 4.2 g/dL 2.2-4.2 [facility] Serum glucose measurement (m ass/volume)Ordered By: Kimmie Hussein on 05-08-2025 Glucose [Mass/Vol] 99 mg/dL 70-99 [facility] Serum or plasma alanine k[place] otransferase (ALT) measurementOrdered By: Kimmie Hussein on 05-08-2025 ALT [Catalytic activity/Vol] 20 U/L <35 [facility] Serum or plasma albumin shell urement (mass/volume)Ordered By: Kimmie Hussein on 05-08-2025 Albumin [Mass/Vol] 3.7 g/dL 3.4-4.8 [facility] Serum or plasma albumin/glob ulin mass ratioOrdered By: Kimmie Hussein on 05-08-2025 Albumin/Globulin [Mass ratio] 0.9 {ratio} 0.9-2.4 [facility] Serum or plasma alkaline natalie sphatase measurementOrdered By: Kimmie Hussein on 05-08-2025 ALP [Catalytic activity/Vol] 99 U/L 35-104 [facility] Serum or plasma calcium shell urement (mass/volume)Ordered By: Kimmie Hussein on 05-08-2025 Calcium [Mass/Vol] 9.2 mg/dL 7.6-11.0 [facility] Serum or plasma urea nitroge n measurement (mass/volume)Ordered By: Kimmie Hussein on 05-08-2025 Urea nitrogen [Mass/Vol] 15 mg/dL 4-19 [facility] Sodium levelOrdered By: Sherry Hussein on 05-08-2025 Sodium [Moles/Vol] 139 mmol/L 133-145 [facility] Total proteinOrdered By: Neena Hussein on 05-08-2025 Protein [Mass/Vol] 7.9 g/dL 5.9-8.4 [facility] White blood cell (WBC) count Ordered By: Kimmie Hussein on 05-08-2025 WBC (Bld) [#/Vol] 9.9 10*3/uL 4.4-11.0 [facility] CNOVon 04-24-2025 CNOV Office Visit ([facility]) MARY CRANE ([id number]) 1940 F TXT Date Time Provider Department 04/24/25 1:00 PM [facility] During your visit today, we recorded the following information about you: May Linares MA 04/24/2025 1:04 PM Signed Patient presents from PCP office to have ordered URI testing completed. Rapid Covid/Flu testing and PCR Covid/Flu/RSV testing done per provider's orders and provider notified of rapid results. May Linares MA Referring Provider: JOSEF MARTINEZ [[id number]] Allergies As of Date: 04/24/2025 Noted Allergy Reaction FLOXIN (OFLOXACIN) 09/10/2005 10 - Anaphylaxis BUMEX (BUMETANIDE) 09/10/2005 5 - Intolerance HYDROCHLOROTHIAZIDE 09/10/2005 2 - Rash 5 - Intolerance Comments: leucocytoclastic vasculitis KEFLEX (CEPHALEXIN) 09/10/2005 2 - Rash NAPROXEN 09/10/2005 2 - Rash 4 - Hives NORVASC (AMLODIPINE BESYLATE) 09/10/2005 5 - Intolerance PENICILLINS 09/10/2005 5 - Intolerance Comments: Rash PROCTOSOL (HYDROCORTISONE ACETATE)09/10/2005 5 - Intolerance SULFA (SULFONAMIDE ANTIBIOTICS) 09/10/2005 2 - Rash 8 - GI Upset COLCHICINE 10/17/2005 4 - Hives MINOXIDIL 03/24/2011 14 - Other: See Comments Comments: facial hair Date Reviewed: 04/24/2025 Reviewed by: Lizzy Mora MA - Fully Assessed Reason for Visit: URI [115] Primary Visit Diagnosis:URI, acute [J06.9] Order(s):COVID-19 MOLECULAR (POC) [1920832] Order #: [id number]. #:[id number] Prescriptions as of 04/24/2025 - allopurinol (ZYLOPRIM) 100 mg tablet Take 1 tablet by mouth once daily. - Cholecalciferol, Vitamin D3, 50 mcg (2,000 unit) cap Take 1 capsule by mouth once daily. - cyanocobalamin (VITAMIN B-12) 1,000 mcg tab Take 1 tablet by mouth every other day in the morning. - amiodarone (PACERONE) 200 mg tablet Take 1 tablet by mouth once daily. Take at 8 am - apixaban (ELIQUIS) 5 mg tab(s) Take 1 tablet by mouth two times a day. Take at 8 am and at 8 pm - furosemide (LASIX) 20 mg tablet Take 1 tablet by mouth once daily. In the morning at 8 am - levothyroxine (LEVOXYL) 75 mcg tablet Take 1 tablet by mouth once daily. Take at 6 am, Take on empty stomach. For Thyroid - atorvastatin (LIPITOR) 20 mg tablet Take 1 tablet by mouth once daily. At 8 pm - DULoxetine (CYMBALTA) 30 mg capsule Take 1 capsule by mouth once daily. Take at 8 am - folic acid 1 mg tablet Take 2 tablets by mouth once daily. Take at 8 am - loratadine (CLARITIN) 10 mg tablet Take 1 tablet by mouth once daily. Take at 8 am - metoprolol tartrate, short acting, (LOPRESSOR) 50 mg tablet Take 1 tablet by mouth every 12 hours. Take at 8 am and at 8 pm - Vit A,C and V-Sqbtbc-Znzxlbfx (OCUVITE WITH LUTEIN) 300 mcg-200 mg-27 mg-2 mg tab Take 1 tablet by mouth once daily. Take at 8 am - potassium chloride ER (KLOR-CON M10) 10 mEq tablet Take 1 tablet by mouth two times a day. Take at 8 am and at 8 pm - polyethylene glycol 3350 17 gram packet Take 1 packet by mouth two times a day. Dissolve dose in 4 - 8 ounces of liquid and take as directed. - senna-docusate (SENNA-S) 8.6-50 mg per tablet Take 1 tablet by mouth two times a day. - nystatin (NYSTOP) powder Apply 1 application to affected area four times a day as needed. Yeast infection/rash in groin and under breasts - ketoconazole (NIZORAL) 2 % cream Apply to affected area two times a day. - triamcinolone acetonide (KENALOG) 0.1 % cream Apply 1 application to affected area two times a day as needed (rash). Apply sparingly to area for rash/itching. - dicyclomine (BENTYL) 10 mg capsule Take 1 capsule by mouth before meals and at bedtime. For diarrhea or abdominal cramping - triamcinolone acetonide (KENALOG) 0.1 % cream Apply 1 application to affected area twice daily. On rash, Apply sparingly to area for rash/itching. - vit A/vit C/vit E/zinc/copper (OCUVITE PRESERVISION ORAL) Take by mouth twice daily. - apremilast (OTEZLA) 30 mg tablet Take 30 mg by mouth twice daily. - hydrocortisone probutate 0.1 % crea Apply to affected area once daily as needed. - acetaminophen (TYLENOL) 325 mg tablet Take 650 mg by mouth every 6 hours as needed. Problem List As Of Date 04/24/2025 Noted Resolved Benign neoplasm of colon [D12.6] 09/30/2005 02/24/2020 DIVERTICULOSIS OF COLON W/O BLEED [K57.30] 09/30/2005 Internal hemorrhoids without mention of complic*09/30/2005 02/24/2020 CARPAL TUNNEL SYNDROME [G56.00] 10/17/2005 03/12/2006 LOC PRIM OSTEOARTH-HAND [M19.049] 10/17/2005 Other tenosynovitis of hand and wrist [M65.849,*10/17/2005 02/24/2020 Follow-up examination, following unspecified lindsay*02/26/2006 02/08/2015 Rheumatoid arthritis involving multiple sites w*02/27/2006 CARPAL TUNNEL SYNDROME [G56.00] 03/17/2006 HYPERTENSION NOS [I10] 05/30/2014 Sicca syndrome (HCC) [M35.00] 11/29/2021 Sialoadenitis [K11.20] (more content not included)... Normal [facility] CN Office Visit (FAMPWS ) GREGMARY R ([id number]) 1940 F TXT Date Time Provider Department 04/24/25 12:00 PM JOSEF MARTINEZ FAMPWS During your visit today, we recorded the following information about you: Pulse Blood pressure Weight 56/minute 171/76 69 kg Josef Martinez, [employer] 04/24/2025 12:26 PM Signed Chief Complaint Patient presents with: Cough sinus congestion Headache HPI Mary Crane is a 84 year old female who presents here today for Above Complaints. Patient presents for sinus congestion, productive cough, headache x days. Denies fever, chills, Shortness of Breath, CP. Past medical history, appointments, medications, allergies reviewed. Previous Medical History PAST MEDICAL HISTORY Diagnosis Date Advance care planning 04/01/2022 Daughter Noemy Arrhythmia Benign neoplasm of colon Chronic kidney disease 02/09/2015 Diverticulosis of colon (without mention of hemorrhage) IFG (impaired fasting glucose) 03/2022 Incisional hernia 07/06/2015 Internal hemorrhoids without mention of complication Rheumatoid arthritis(714.0) Rheumatoid arthritis(714.0) Sicca syndrome (HCC) Unspecified essential hypertension Previous Surgical History PAST SURGICAL HISTORY Procedure Laterality Date CATARACT EXTRACTION HX 10/12/2004 COLONOSCOPY FLX DX W/COLLJ SPEC WHEN PFRMD 09/30/2005 Colonoscopy COLONOSCOPY FLX DX W/COLLJ SPEC WHEN PFRMD 07/28/2016 Colonoscopy COLONOSCOPY SCREENING 09/30/2022 multiple adenomatous polyps, repeat in 3 yrs ESOPHAGOGASTRODUODENOS COPY TRANSORAL DIAGNOSTIC 12/21/2014 EGD LAPAROSCOPY SURG CHOLECYSTECTOMY 02/20/2015 NEUROPLASTY AND/TRANSPOS MEDIAN NRV CARPAL TUNNE 02/12/2006 Carpal tunnel decomp Left NEUROPLASTY AND/TRANSPOS MEDIAN NRV CARPAL TUNNE 02/27/2006 Carpal tunnel decomp Right PAST SURGICAL HISTORY OF 10/12/2001 hemorrhoidectomy , bladder, and umbilical hernia repair PAST SURGICAL HISTORY OF 08/12/2006 bladder suspension REPAIR FIRST ABDOMINAL WALL HERNIA 07/06/2015 with mesh VAGINAL HYSTERECTOMY UTERUS 250 GM/< 10/12/1983 Hysterectomy, vaginal and bladder tacked up Family History FAMILY HISTORY Problem Relation Age of Onset Diabetes Mother Hypertension Mother Heart Father Diabetes Sister No Known Problems Sister No Known Problems Brother Heart Brother No Known Problems Brother Patient Allergies ALLERGIES Allergen Reactions Floxin [Ofloxacin] Anaphylaxis Bumex [Bumetanide] Intolerance Hydrochlorothiazide Rash, Intolerance leucocytoclastic vasculitis Keflex [Cephalexin] Rash Naproxen Rash, Hives Norvasc [Amlodipine* Intolerance Penicillins Intolerance Rash Proctosol [Hydrocor* Intolerance Sulfa (Sulfonamide * Rash, GI Upset Colchicine Hives Minoxidil Other: See Comments facial hair Current Medications Current Outpatient Medications on File Prior to Visit Medication Sig allopurinol (ZYLOPRIM) 100 mg tablet Take 1 tablet by mouth once daily. Cholecalciferol, Vitamin D3, 50 mcg (2,000 unit) cap Take 1 capsule by mouth once daily. cyanocobalamin (VITAMIN B-12) 1,000 mcg tab Take 1 tablet by mouth every other day in the morning. amiodarone (PACERONE) 200 mg tablet Take 1 tablet by mouth once daily. Take at 8 am apixaban (ELIQUIS) 5 mg tab(s) Take 1 tablet by mouth two times a day. Take at 8 am and at 8 pm furosemide (LASIX) 20 mg tablet Take 1 tablet by mouth once daily. In the morning at 8 am levothyroxine (LEVOXYL) 75 mcg tablet Take 1 tablet by mouth once daily. Take at 6 am, Take on empty stomach. For Thyroid atorvastatin (LIPITOR) 20 mg tablet Take 1 tablet by mouth once daily. At 8 pm DULoxetine (CYMBALTA) 30 mg capsule Take 1 capsule by mouth once daily. Take at 8 am folic acid 1 mg tablet Take 2 tablets by mouth once daily. Take at 8 am loratadine (CLARITIN) 10 mg tablet Take 1 tablet by mouth once daily. Take at 8 am metoprolol tartrate, short acting, (LOPRESSOR) 50 mg tablet Take 1 tablet by mouth every 12 hours. Take at 8 am and at 8 pm Vit A,C and K-Xrrlvz-Lmzfkerb (OCUVITE WITH LUTEIN) 300 mcg-200 mg-27 mg-2 mg tab Take 1 tablet by mouth once daily. Take at 8 am potassium chloride ER (KLOR-CON M10) 10 mEq tablet Take 1 tablet by mouth two times a day. Take at 8 am and at 8 pm polyethylene glycol 3350 17 gram packet Take 1 packet by mouth two times a day. Dissolve dose in 4 - 8 ounces of liquid and take as directed. senna-docusate (SENNA-S) 8.6-50 mg per tablet Take 1 tablet by mouth two times a day. (Patient not taking: Reported on 03/27/2025) nystatin (NYSTOP) powder Apply 1 application to affected area four times a day as needed. Yeast infection/rash in groin and under breasts ketoconazole (NIZORAL) 2 % cream Apply to affected area two times a day. triamcinolone acetonide (KENALOG) 0.1 % cream Apply 1 application to affected area two times a day (more content not included)... Normal [facility] 04-24-2025 [facility] Telephone ([facility]) MARY CRANE ([id number]) 1940 F TXT Date Time Provider Department 04/24/25 JOSEF MARTINEZ During your visit today, we recorded the following information about you: Christel Wagner RN 04/24/2025 10:14 AM Signed Pt's daughter called in and reports that Pt has a possible sinus infection. She states Pt has clear sinus drainage and when she blows her nose it's a thick white. She is coughing up thick yellow phlegm, pressure around head into temples and back of head, sinus headache. She denies her mother running a fever, but states she has been taking Tylenol for the pain. She reports the Tylenol isn't help with the pain. Pt scheduled today with Josef Martinez VARIETY SAW OPERATOR. Christel Wagner RN Allergies As of Date: 04/24/2025 Noted Allergy Reaction FLOXIN (OFLOXACIN) 09/10/2005 10 - Anaphylaxis BUMEX (BUMETANIDE) 09/10/2005 5 - Intolerance HYDROCHLOROTHIAZIDE 09/10/2005 2 - Rash 5 - Intolerance Comments: leucocytoclastic vasculitis KEFLEX (CEPHALEXIN) 09/10/2005 2 - Rash NAPROXEN 09/10/2005 2 - Rash 4 - Hives NORVASC (AMLODIPINE BESYLATE) 09/10/2005 5 - Intolerance PENICILLINS 09/10/2005 5 - Intolerance Comments: Rash PROCTOSOL (HYDROCORTISONE ACETATE)09/10/2005 5 - Intolerance SULFA (SULFONAMIDE ANTIBIOTICS) 09/10/2005 2 - Rash 8 - GI Upset COLCHICINE 10/17/2005 4 - Hives MINOXIDIL 03/24/2011 14 - Other: See Comments Comments: facial hair Date Reviewed: 03/27/2025 Reviewed by: Rasheed Barrios MD - Fully Assessed Reason for Visit: Appointment [186] Patient Update [1234] Prescriptions as of 04/24/2025 - allopurinol (ZYLOPRIM) 100 mg tablet Take 1 tablet by mouth once daily. - Cholecalciferol, Vitamin D3, 50 mcg (2,000 unit) cap Take 1 capsule by mouth once daily. - cyanocobalamin (VITAMIN B-12) 1,000 mcg tab Take 1 tablet by mouth every other day in the morning. - amiodarone (PACERONE) 200 mg tablet Take 1 tablet by mouth once daily. Take at 8 am - apixaban (ELIQUIS) 5 mg tab(s) Take 1 tablet by mouth two times a day. Take at 8 am and at 8 pm - furosemide (LASIX) 20 mg tablet Take 1 tablet by mouth once daily. In the morning at 8 am - levothyroxine (LEVOXYL) 75 mcg tablet Take 1 tablet by mouth once daily. Take at 6 am, Take on empty stomach. For Thyroid - atorvastatin (LIPITOR) 20 mg tablet Take 1 tablet by mouth once daily. At 8 pm - DULoxetine (CYMBALTA) 30 mg capsule Take 1 capsule by mouth once daily. Take at 8 am - folic acid 1 mg tablet Take 2 tablets by mouth once daily. Take at 8 am - loratadine (CLARITIN) 10 mg tablet Take 1 tablet by mouth once daily. Take at 8 am - metoprolol tartrate, short acting, (LOPRESSOR) 50 mg tablet Take 1 tablet by mouth every 12 hours. Take at 8 am and at 8 pm - Vit A,C and G-Acujum-Rerpmvau (OCUVITE WITH LUTEIN) 300 mcg-200 mg-27 mg-2 mg tab Take 1 tablet by mouth once daily. Take at 8 am - potassium chloride ER (KLOR-CON M10) 10 mEq tablet Take 1 tablet by mouth two times a day. Take at 8 am and at 8 pm - polyethylene glycol 3350 17 gram packet Take 1 packet by mouth two times a day. Dissolve dose in 4 - 8 ounces of liquid and take as directed. - senna-docusate (SENNA-S) 8.6-50 mg per tablet Take 1 tablet by mouth two times a day. - nystatin (NYSTOP) powder Apply 1 application to affected area four times a day as needed. Yeast infection/rash in groin and under breasts - ketoconazole (NIZORAL) 2 % cream Apply to affected area two times a day. - triamcinolone acetonide (KENALOG) 0.1 % cream Apply 1 application to affected area two times a day as needed (rash). Apply sparingly to area for rash/itching. - dicyclomine (BENTYL) 10 mg capsule Take 1 capsule by mouth before meals and at bedtime. For diarrhea or abdominal cramping - triamcinolone acetonide (KENALOG) 0.1 % cream Apply 1 application to affected area twice daily. On rash, Apply sparingly to area for rash/itching. - vit A/vit C/vit E/zinc/copper (OCUVITE PRESERVISION ORAL) Take by mouth twice daily. - apremilast (OTEZLA) 30 mg tablet Take 30 mg by mouth twice daily. - hydrocortisone probutate 0.1 % crea Apply to affected area once daily as needed. - acetaminophen (TYLENOL) 325 mg tablet Take 650 mg by mouth every 6 hours as needed. Problem List As Of Date 04/24/2025 Noted Resolved Benign neoplasm of colon [D12.6] 09/30/2005 02/24/2020 DIVERTICULOSIS OF COLON W/O BLEED [K57.30] 09/30/2005 Internal hemorrhoids without mention of complic*09/30/2005 02/24/2020 CARPAL TUNNEL SYNDROME [G56.00] 10/17/2005 03/12/2006 LOC PRIM OSTEOARTH-HAND [M19.049] 10/17/2005 Other tenosynovitis of hand and wrist [M65.849,*10/17/2005 02/24/2020 Follow-up examination, following unspecified lindsay*02/26/2006 02/08/2015 Rheumatoid arthritis involving multiple sites w*02/27/2006 CARPAL TUNNEL SYNDROME [G56.00] 03/17/2006 HYPERTENSION (more content not included)... Normal [facility] COVID-19 MOLECULAR (POC)on 0 04-24-2025 Procedural Control Valid [facility] SARS-CoV-2 (COVID-19) RNA MEL+probe Ql (Unsp spec) Negative Negative [facility] Comment on above: Location:[facility], [address] [place] [address], [place], [address] [facility] INFLUENZA A&B MOLECULAR (POC )on 04-24-2025 Flu A (POCT) Negative Negative [facility] Flu B (POCT) Negative Negative [facility] Procedural Control Valid [facility] Location:[facility], [address] [facility], [place], [address] [facility] POINT OF CARE [facility] XR CHEST 2V FRONTAL/LATon XR CHEST 2V FRONTAL/LAT * * *Final Repor t* * * DATE OF EXAM: Apr 24 2025 1:16PM WOX [id number] - XR CHEST 2V FRONTAL/LAT / PROCEDURE REASON: URI, acute * * * * Physician Interpretation * * * * EXAMINATION: CHEST RADIOGRAPH (2 VIEW FRONTAL and LATERAL) CLINICAL HISTORY: URI, acute MQ: XC2_6 EXAM DATE/TIME: 04/24/2025 1:16 PM COMPARISON: Chest x-ray on 01/17/2025 RESULT: Lines, tubes, and devices: None. Lungs and pleura: No consolidation. No lung mass. No pleural effusion. No pneumothorax. Cardiomediastinal silhouette: There is mild prominence of the cardiac silhouette. Atherosclerotic calcification seen in the thoracic aorta. Bones and soft tissues: Unremarkable. IMPRESSION: No acute radiographic abnormality. Public Health Analyst: [facility] Transcribe Date/Time: Apr 24 2025 1:29P Dictated by : JOJO JEFFREY MD This examination was interpreted and the report reviewed and electronically signed by: JOJO JEFFREY MD on Apr 24 2025 1:31PM EST [id number] Normal [facility] XR Chest PA and Lateralon IMPRESSION: No acute radiographic abnormality. Public Health Analyst: [facility] Transcribe Date/Time: Apr 24 2025 1:29P Dictated by : JOJO JEFFREY MD This examination was interpreted and the report reviewed and electronically signed by: JOJO JEFFREY MD on Apr 24 2025 1:31PM EST DIVISION OF RADIOLOGY * * *Final Report* * * DATE OF EXAM: Apr 24 2025 1:16PM WOX [id number] - XR CHEST 2V FRONTAL/LAT / PROCEDURE REASON: URI, acute * * * * Physician Interpretation * * * * EXAMINATION: CHEST RADIOGRAPH (2 VIEW FRONTAL & LATERAL) CLINICAL HISTORY: URI, acute MQ: XC2_6 EXAM DATE/TIME: 04/24/2025 1:16 PM COMPARISON: Chest x-ray on 01/17/2025 RESULT: Lines, tubes, and devices: None. Lungs and pleura: No consolidation. No lung mass. No pleural effusion. No pneumothorax. Cardiomediastinal silhouette: There is mild prominence of the cardiac silhouette. Atherosclerotic calcification seen in the thoracic aorta. Bones and soft tissues: Unremarkable. DIVISION OF RADIOLOGY Provider, Davis Rhodes - 04/24/2025 * * *Final Report* * * DATE OF EXAM: Apr 24 2025 1:16PM WOX [id number] - XR CHEST 2V FRONTAL/LAT / PROCEDURE REASON: URI, acute * * * * Physician Interpretation * * * * EXAMINATION: CHEST RADIOGRAPH (2 VIEW FRONTAL & LATERAL) CLINICAL HISTORY: URI, acute MQ: XC2_6 EXAM DATE/TIME: 04/24/2025 1:16 PM COMPARISON: Chest x-ray on 01/17/2025 RESULT: Lines, tubes, and devices: None. Lungs and pleura: No consolidation. No lung mass. No pleural effusion. No pneumothorax. Cardiomediastinal silhouette: There is mild prominence of the cardiac silhouette. Atherosclerotic calcification seen in the thoracic aorta. Bones and soft tissues: Unremarkable. IMPRESSION IMPRESSION: No acute radiographic abnormality. Public Health Analyst: [facility] Transcribe Date/Time: Apr 24 2025 1:29P Dictated by : JOJO JEFFREY MD This examination was interpreted and the report reviewed and electronically signed by: JOJO JEFFREY MD on Apr 24 2025 1:31PM EST [facility] Radiology Study observation (narrative) Gary mustafa [facility] XR Chest PA and LateralOrder ed By: [facility] Provider on 04-24-2025 [facility] CNOVon 03-27-2025 CNOV Office Visit ([facility] ) AMRY CARNE ([id number]) 1940 F TXT Date Time Provider Department 03/27/25 9:00 AM RASHEED BARRIOS During your visit today, we recorded the following information about you: Pulse Respiration Blood pressure Weight 59/minute 12/minute 166/80 68.9 kg Height 1.626 m Rasheed Barrios MD 03/27/2025 11:26 AM Signed [facility] Cardiology ([facility]) [address] [facility] [id number] OUTPATIENT VISIT DATE 03/27/2025 PRIMARY CARE PHYSICIAN: Atul Harvey [address] [place] [address] HISTORY OF PRESENT ILLNESS: Ms. Crane is a 84 year old woman with history of paroxysmal atrial fibrillation, mild pulmonary hypertension, essential hypertension, and rheumatoid arthritis who presents to the office for follow-up after hospital admission. 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 She recovered well. She was diagnosed with orthostatic hypotension during her hospital admission. Since hospital discharge, she has been doing well. She has regained most of her functional capacity. She denies shortness of breath or dyspnea on exertion. She has done well on reduced dose of antihypertensive medications with decrease episodes of lightheadedness or dizziness. She denies symptoms of palpitations, heart racing, or skipped heartbeats. PAST MEDICAL HISTORY Diagnosis Date Advance care planning 04/01/2022 Daughter Noemy Arrhythmia Benign neoplasm of colon Chronic kidney disease 02/09/2015 Diverticulosis of colon (without mention of hemorrhage) IFG (impaired fasting glucose) 03/2022 Incisional hernia 07/06/2015 Internal hemorrhoids without mention of complication Rheumatoid arthritis(714.0) Rheumatoid arthritis(714.0) Sicca syndrome (HCC) Unspecified essential hypertension PAST SURGICAL HISTORY Procedure Laterality Date CATARACT EXTRACTION HX 10/12/2004 COLONOSCOPY FLX DX W/COLLJ SPEC WHEN PFRMD 09/30/2005 Colonoscopy COLONOSCOPY FLX DX W/COLLJ SPEC WHEN PFRMD 07/28/2016 Colonoscopy COLONOSCOPY SCREENING 09/30/2022 multiple adenomatous polyps, repeat in 3 yrs ESOPHAGOGASTRODUODENOS COPY TRANSORAL DIAGNOSTIC 12/21/2014 EGD LAPAROSCOPY SURG CHOLECYSTECTOMY 02/20/2015 NEUROPLASTY AND/TRANSPOS MEDIAN NRV CARPAL TUNNE 02/12/2006 Carpal tunnel decomp Left NEUROPLASTY AND/TRANSPOS MEDIAN NRV CARPAL TUNNE 02/27/2006 Carpal tunnel decomp Right PAST SURGICAL HISTORY OF 10/12/2001 hemorrhoidectomy , bladder, and umbilical hernia repair PAST SURGICAL HISTORY OF 08/12/2006 bladder suspension REPAIR FIRST ABDOMINAL WALL HERNIA 07/06/2015 with mesh VAGINAL HYSTERECTOMY UTERUS 250 GM/< 10/12/1983 Hysterectomy, vaginal and bladder tacked up SOCIAL HISTORY Social History Tobacco Use Smoking status: Never Smokeless tobacco: Never Vaping Use Vaping status: Never Used Substance Use Topics Alcohol use: No Drug use: No FAMILY HISTORY Problem Relation Age of Onset Diabetes Mother Hypertension Mother Heart Father Diabetes Sister No Known Problems Sister No Known Problems Brother Heart Brother No Known Problems Brother ALLERGIES: ALLERGIES Allergen Reactions Floxin [Ofloxacin] Anaphylaxis Bumex [Bumetanide] Intolerance Hydrochlorothiazide Rash, Intolerance leucocytoclastic vasculitis Keflex [Cephalexin] Rash Naproxen Rash, Hives Norvasc [Amlodipine* Intolerance Penicillins Intolerance Rash Proctosol [Hydrocor* Intolerance Sulfa (Sulfonamide * Rash, GI Upset Colchicine Hives Minoxidil Other: See Comments facial hair MEDICATIONS: allopurinol (ZYLOPRIM) 100 mg tablet Take 1 tablet by mouth once daily. Cholecalciferol, Vitamin D3, 50 mcg (2,000 unit) cap Take 1 capsule by mouth once daily. cyanocobalamin (VITAMIN B-12) 1,000 mcg tab Take 1 tablet by mouth every other day in the morning. amiodarone (PACERONE) 200 mg tablet Take 1 tablet by mouth once daily. Take at 8 am apixaban (ELIQUIS) 5 mg tab(s) Take 1 tablet by mouth two times a day. Take at 8 am and at 8 pm furosemide (LASIX) 20 mg tablet Take 1 tablet by mouth once daily. In the morning at 8 am levothyroxine (LEVOXYL) 75 mcg tablet Take 1 tablet by mouth once daily. Take at 6 am, Take on empty stomach. For Thyroid atorvastatin (LIPITOR) 20 mg tablet Take 1 tablet by mouth once daily. At 8 pm DULoxetine (CYMBALTA) 30 mg capsule Take 1 capsule by mouth once daily. Take at 8 am folic acid 1 mg tablet Take 2 tablets by mouth once daily. Take at 8 am loratadine (CLARITIN) 10 mg tablet Take 1 tablet by mouth once daily. Take at 8 am metoprolol tartrate, jacinda (more content not included)... Normal [facility] 02-15-2025 CNP[facility] Telephone ([facility]) MARY CRANE ([id number]) 1940 F TXT Date Time Provider Department 02/15/25 [facility] During your visit today, we recorded the following information about you: Christel Wagner RN 02/15/2025 11:46 AM Signed Felicitas [facility] called in and reports she is hoping to discharge Pt next week. She is asking if provider would be comfortable discontinuing the O2 order for the Pt at [facility]. She states the last 2 weeks she has been seeing the Pt she has not been using the O2. She said she walked the Pt around her house for 5 min and she stayed at 92% the whole time and moves really well and doesn't get SOB. She also reports they are working on getting the Pts medication pre-packaged through [facility]. She said the Allopurinol had not been sent through. She asked if the Preservison could be sent, and the system wouldn't allow me. The she was asking if the provider would send the Pt Vit D and Vit B12. I let her know the Pts B12 level was high and has been for about 2 years, so the provider may want her to cut back on that. Pts Vit D was up to 61.8, when it had been running in the 40s. I told her I would let provider know and see what she wanted to do. Please call Felicitas back so she can update Pts med list. The patient has been identified by name and date of : Yes Caregiver verified no other encounters exist for this prescription request: Yes Caregiver confirmed with patient/requestor that no other refills are due, in the near future, with this provider at this time: Yes The last office visit in the department: 02/07/2025 Does the patient have a future office visit with this provider/department: Yes 05/22/2025 Requested Prescriptions Pending Prescriptions Disp Refills allopurinol (ZYLOPRIM) 100 mg tablet 90 tablet 3 Sig: Take 1 tablet by mouth once daily. Cholecalciferol, Vitamin D3, 50 mcg (2,000 unit) cap Sig: Take 1 capsule by mouth once daily. cyanocobalamin (VITAMIN B-12) 1,000 mcg tab Sig: Take 1 tablet by mouth every other day in the morning. Christel Wagner RN February 15, 2025 11:44 AM Atul Harvey DO 02/17/2025 11:57 AM Signed Okay to discontinue oxygen- please notify The following approved medication requests have been transmitted electronically. Requested Prescriptions Signed Prescriptions Disp Refills allopurinol (ZYLOPRIM) 100 mg tablet 90 tablet 3 Sig: Take 1 tablet by mouth once daily. Authorizing Provider: ATUL HARVEY Cholecalciferol, Vitamin D3, 50 mcg (2,000 unit) cap 90 capsule 3 Sig: Take 1 capsule by mouth once daily. Authorizing Provider: ATUL HARVEY cyanocobalamin (VITAMIN B-12) 1,000 mcg tab 90 tablet 3 Sig: Take 1 tablet by mouth every other day in the morning. Authorizing Provider: ATUL HARVEY DO Detwiler-Green, Susan LPN 02/17/2025 12:11 PM Signed Felicitas informed. Allergies As of Date: 02/15/2025 Noted Allergy Reaction FLOXIN (OFLOXACIN) 09/10/2005 10 - Anaphylaxis BUMEX (BUMETANIDE) 09/10/2005 5 - Intolerance HYDROCHLOROTHIAZIDE 09/10/2005 2 - Rash 5 - Intolerance Comments: leucocytoclastic vasculitis KEFLEX (CEPHALEXIN) 09/10/2005 2 - Rash NAPROXEN 09/10/2005 2 - Rash 4 - Hives NORVASC (AMLODIPINE BESYLATE) 09/10/2005 5 - Intolerance PENICILLINS 09/10/2005 5 - Intolerance Comments: Rash PROCTOSOL (HYDROCORTISONE ACETATE)09/10/2005 5 - Intolerance SULFA (SULFONAMIDE ANTIBIOTICS) 09/10/2005 2 - Rash 8 - GI Upset COLCHICINE 10/17/2005 4 - Hives MINOXIDIL 03/24/2011 14 - Other: See Comments Comments: facial hair Date Reviewed: 02/07/2025 Reviewed by: Mary Mendieta LPN - Fully Assessed Reason for Visit: Patient Update [1234] Home Health Point of Care Results [4062] Visit Diagnoses:Abdominal cramping [R10.9] 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 - Cholecalciferol, Vitamin D3, 50 mcg (2,000 unit) cap Take 1 capsule by mouth once daily. - cyanocobalamin (VITAMIN B-12) 1,000 mcg tab Take 1 tablet by mouth every other day in the morning. - amiodarone (PACERONE) 200 mg tablet Take 1 tablet by mouth once daily. Take at 8 am - apixaban (ELIQUIS) 5 mg tab(s) Take 1 tablet by mouth two times a day. Take at 8 am and at 8 pm - furosemide (LASIX) 20 mg tablet Take 1 tablet by mouth once daily. In the morning at 8 am - levothyroxine (LEVOXYL) 75 mcg tablet Take 1 tablet by mouth once daily. Take at 6 am, Ta (more content not included)... Normal [facility] Absolute lymphocyte countOrd ered By: Kimmie Hussein on 02-13-2025 Lymphocytes Auto (Unsp spec) [#/Vol] 3.87 10*3/uL 0.83-4.51 [facility] Absolute neutrophil countOrd ered By: Kimmie Hussein on 02-13-2025 Neutrophils (Bld) [#/Vol] 5.7 10*3/uL 2.0-7.7 [facility] Anion gap in Serum or Plasma Ordered By: Kimmie Hussein on 02-13-2025 Anion gap [Moles/Vol] 12 mmol/L - [facility] Automated lymphocyte count a s percentage of total leukocytesOrdered By: Kimmie Hussein on 02-13-2025 Lymphocytes/100 WBC Auto (Unsp spec) 33.7 % [facility] BUN/creatinine ratioOrdered By: Kimmiedeborah Hussein on 02-13-2025 Urea nitrogen/Creatinine [Mass ratio] 10.8 mg/mg 10- [facility] Basophil percentageOrdered B y: Kimmie Hussein on 02-13-2025 Basophils/100 WBC (Bld) 1.0 % 0-1 [facility] Bilirubin, totalOrdered By: Kimmie Hussein on 02-13-2025 Bilirubin [Mass/Vol] 0.31 mg/dL 0.00-1.30 [facility] CBC W/Diff, Automatedon Absolute Lymph 3.87 X10 3/uL Normal 0.83-4.51 [facility] Comment on above: Performed By: #### L 100.0100, L500.4050 #### [facility] [address] [place], [address] Absolute Neut 5.7 X10 3/uL Normal 2.0-7.7 [facility] Comment on above: Performed By: #### L 100.0100, L500.4050 #### [facility] [address] [place], [address] Basophils/100 WBC (Bld) 1.0 % Normal 0-1 [facility] Comment on above: Performed By: #### L 100.0100, L500.4050 #### [facility] [address] [place], [address] Eosinophils/100 WBC (Bld) 2.1 % Normal 0-5 [facility] Comment on above: Performed By: #### L 100.0100, L500.4050 #### [facility] [address] [place], [address] Erythrocyte distribution width (RBC) [Ratio] 15.8 % High 11.6-14.6 [facility] Comment on above: Performed By: #### L 100.0100, L500.4050 #### [facility] [address] [place], [address] Hematocrit (Bld) [Volume fraction] 33.9 % Low 37-47 [facility] Comment on above: Performed By: #### L 100.0100, L500.4050 #### [facility] [address] [place], [address] Hemoglobin (Bld) [Mass/Vol] 10.3 g/dL Low 12.0-15.0 [facility] Comment on above: Performed By: #### L 100.0100, L500.4050 #### [facility] [address] [place], [address] IG% 0.700 Normal 0.0-0.9 [facility] Comment on above: Result Comment: IG% - Immature Granulocytes (promyelocytes, myelocytes and metamyelocytes) > 1% indicates that a LEFT SHIFT is Present. Performed By: #### L 100.0100, L500.4050 #### [facility] [address] [place], [address] Lymphocytes/100 WBC (Bld) 33.7 % Normal 19-41 [facility] Comment on above: Performed By: #### L 100.0100, L500.4050 #### [facility] [address] [place], [address] MCH (RBC) [Entitic mass] 26.1 pg Low 27.0-32.0 [facility] Comment on above: Performed By: #### L 100.0100, L500.4050 #### [facility] [address] [place], [address] MCHC (RBC) [Mass/Vol] 30.4 g/dL Low 32-36 [facility] Comment on above: Performed By: #### L 100.0100, L500.4050 #### [facility] [address] [place], [address] MCV (RBC) [Entitic vol] 85.8 fL Normal 81-99 [facility] Comment on above: Performed By: #### L 100.0100, L500.4050 #### [facility] [address] [place], [address] Monocytes/100 WBC (Bld) 13.2 % High 0-10 [facility] Comment on above: Performed By: #### L 100.0100, L500.4050 #### [facility] [address] [place], [address] Neutrophils/100 WBC (Bld) 49.3 % Normal 47-70 [facility] Comment on above: Performed By: #### L 100.0100, L500.4050 #### [facility] [address] [place], [address] Nucleated RBC (Bld) [#/Vol] 0 10*3/uL Normal 0-5 [facility] Comment on above: Performed By: #### L 100.0100, L500.4050 #### [facility] [address] [place], [address] Platelet mean volume (Bld) [Entitic vol] 11.0 fL Normal 6.2-12.0 [facility] Comment on above: Performed By: #### L 100.0100, L500.4050 #### [facility] [address] [place], [address] Platelets (Bld) [#/Vol] 471 10*3/uL High 150-450 [facility] Comment on above: Performed By: #### L 100.0100, L500.4050 #### [facility] [address] [place], [address] RBC (Bld) [#/Vol] 3.95 10*6/uL Low 4.2-5.4 [facility] Comment on above: Performed By: #### L 100.0100, L500.4050 #### [facility] [address] [place], [address] RDW SD 49.6 fl High 35.1-43.9 [facility] Comment on above: Performed By: #### L 100.0100, L500.4050 #### [facility] [address] [place], [address] WBC (Bld) [#/Vol] 11.5 10*3/uL High 4.4-11.0 [facility] Comment on above: Performed By: #### L 100.0100, L500.4050 #### [facility] [address] [place], [address] Carbon dioxide, total [Moles /volume] in Central venous bloodOrdered By: Kimmie Hussein on 02-13-2025 CO2 [Moles/Vol] 25.8 mmol/L 21.0-32.0 [facility] Chloride assayOrdered By: Thad Hussein on 02-13-2025 Chloride [Moles/Vol] 101 mmol/L 98-108 [facility] Comprehensive Metabolic Prof ilon 02-13-2025 Albumin [Mass/Vol] 3.2 g/dL Low 3.4-4.8 [facility] Comment on above: Performed By: #### L 100.0100, L500.4050 #### [facility] [address] [place], [address] Albumin/Globulin [Mass ratio] 0.7 {ratio} Low 0.9-2.4 [facility] Comment on above: Performed By: #### L 100.0100, L500.4050 #### [facility] [address] [place], [address] ALK PHOS 119 U/L High 35-104 [facility] Comment on above: Performed By: #### L 100.0100, L500.4050 #### [facility] [address] [place], [address] ALT [Catalytic activity/Vol] 19 U/L Normal <=34 [facility] Comment on above: Performed By: #### L 100.0100, L500.4050 #### [facility] [address] [place], [address] AST [Catalytic activity/Vol] 34 U/L High <=31 [facility] Comment on above: Performed By: #### L 100.0100, L500.4050 #### [facility] [address] [place], [address] Bilirubin [Mass/Vol] 0.31 mg/dL Normal 0.00-1.30 [facility] Comment on above: Performed By: #### L 100.0100, L500.4050 #### [facility] [address] [place], [address] BUN/CRE 10.8 RATIO Normal 10-20 [facility] Comment on above: Performed By: #### L 100.0100, L500.4050 #### [facility] [address] [place], [address] Calcium [Mass/Vol] 9.2 mg/dL Normal 7.6-11.0 [facility] Comment on above: Performed By: #### L 100.0100, L500.4050 #### [facility] [address] [place], [address] Chloride [Moles/Vol] 101 mmol/L Normal 98-108 [facility] Comment on above: Performed By: #### L 100.0100, L500.4050 #### [facility] [address] [place], [address] CO2 [Moles/Vol] 25.8 mmol/L Normal 21.0-32.0 [facility] Comment on above: Performed By: #### L 100.0100, L500.4050 #### [facility] [address] [place], [address] Creatinine [Mass/Vol] 1.18 mg/dL Normal 0.70-1.20 [facility] Comment on above: Performed By: #### L 100.0100, L500.4050 #### [facility] [address] [place], [address] GAP 12 Normal 5-15 [facility] Comment on above: Performed By: #### L 100.0100, L500.4050 #### [facility] [address] [place], [address] GFR/1.73 sq M.predicted among non-blacks MDRD (S/P/Bld) [Vol rate/Area] 45 mL/min/{1.73_m2} Low >60 [facility] Comment on above: Result Comment: mL/m in/1.73m2 CKD-EPI Creatinine Equation (2020) Performed By: #### L 100.0100, L500.4050 #### [facility] [address] [place], [address] Globulin (S) [Mass/Vol] 4.3 g/dL High 2.2-4.2 [facility] Comment on above: Performed By: #### L 100.0100, L500.4050 #### [facility] [address] [place], [address] Glucose [Mass/Vol] 80 mg/dL Normal 70-99 [facility] Comment on above: Performed By: #### L 100.0100, L500.4050 #### [facility] [address] [place], [address] Potassium [Moles/Vol] 3.3 mmol/L Normal 3.3-5.1 [facility] Comment on above: Performed By: #### L 100.0100, L500.4050 #### [facility] [address] [place], [address] Sodium [Moles/Vol] 139 mmol/L Normal 133-145 [facility] Comment on above: Performed By: #### L 100.0100, L500.4050 #### [facility] [address] [place], [address] T PROT 7.4 g/dL Normal 5.9-8.4 [facility] Comment on above: Performed By: #### L 100.0100, L500.4050 #### [facility] [address] [place], [address] Urea nitrogen [Mass/Vol] 13 mg/dL Normal 4-19 [facility] Comment on above: Performed By: #### L 100.0100, L500.4050 #### [facility] [address] [place], [address] Eosinophil percentageOrdered By: Kimmie Hussein on 02-13-2025 Eosinophils/100 WBC (Bld) 2.1 % 0-5 [facility] Erythrocyte distribution wid th ratioOrdered By: Kimmie Hussein on 02-13-2025 Erythrocyte distribution width (RBC) [Ratio] 15.8 % High 11.6-14.6 [facility] Erythrocyte distribution wid th standard deviationOrdered By: Kimmie Hussein on 02-13-2025 Erythrocyte distribution width (RBC) [Ratio] 49.6 fl High 35.1-43.9 [facility] Glomerular filtration rate ( GFR) estimation/1.73 sq m using serum, plasma, or whole bOrdered By: Kimmie Hussein on 02-13-2025 GFR/1.73 sq M.predicted among non-blacks MDRD (S/P/Bld) [Vol rate/Area] 45 mL/min/{1.73_m2} Low >60 [facility] Comment on above: mL/min/1.73m2 CKD-EP I Creatinine Equation (2020) Hematocrit Auto (Bld) [Volum e fraction]Ordered By: Kimmie Hussein on 02-13-2025 Hematocrit (Bld) [Volume fraction] 33.9 % Low 37-47 [facility] Hemoglobin measurementOrdere d By: Kimmie Hussein on 02-13-2025 Hemoglobin (Bld) [Mass/Vol] 10.3 g/dL Low 12.0-15.0 [facility] Immature granulocytes/100 WB C Auto (Bld)Ordered By: Kimmie Hussein on 02-13-2025 Immature granulocytes/100 WBC (Bld) 0.700 % 0.0-0.9 [facility] Comment on above: IG% - Immature Granu locytes (promyelocytes, myelocytes and metamyelocytes) > 1% indicates that a LEFT SHIFT is Present. Laboratory - Chemistry and C hemistry - challengeOrdered By: Kimmie Hussein on 02-13-2025 AST [Catalytic activity/Vol] 34 U/L High <32 [facility] MCV (mean corpuscular volume ) determinationOrdered By: Kimmie Hussein 02-13-2025 MCV (RBC) [Entitic vol] 85.8 fL 81-99 [facility] Mean corpuscular hemoglobin (MCH) determinationOrdered By: Kimmie Hussein on 02-13-2025 MCH (RBC) [Entitic mass] 26.1 pg Low 27.0-32.0 [facility] Mean corpuscular hemoglobin concentration (MCHC) determinationOrdered By: Kimmie Hussein on 02-13-2025 MCHC (RBC) [Mass/Vol] 30.4 g/dL Low 32-36 [facility] Mean platelet volume determi nationOrdered By: Kimmie Hussein on 02-13-2025 Platelet mean volume (Bld) [Entitic vol] 11.0 fL 6.2-12.0 [facility] Monocyte percentageOrdered B y: Kimmie Hussein on 02-13-2025 Monocytes/100 WBC (Bld) 13.2 % High 0-10 [facility] Neutrophil percentageOrdered By: Kimmie Hussein on 02-13-2025 Neutrophils/100 WBC (Bld) 49.3 % 47-70 [facility] Nucleated red blood cell per centageOrdered By: Kimmie Hussein on 02-13-2025 Nucleated RBC/100 WBC (Bld) [Ratio] 0 % 0-5 [facility] Platelet countOrdered By: Thad Hussein on 02-13-2025 Platelets (Bld) [#/Vol] 471 10*3/uL High 150-450 [facility] Potassium measurement (mass/ volume)Ordered By: Kimmie Hussein on 02-13-2025 Potassium (Unsp spec) [Mass/Vol] 3.3 mmol/L 3.3-5.1 [facility] RBC Auto (Bld) [#/Vol]Ordere d By: Kimmie Hussein on 02-13-2025 RBC (Bld) [#/Vol] 3.95 10*6/uL Low 4.2-5.4 [facility] Serum creatinine measurement (mass/volume)Ordered By: Kimmie Hussein on 02-13-2025 Creatinine [Mass/Vol] 1.18 mg/dL 0.70-1.20 [facility] Serum globulin measurementOr dered By: Kimmie Hussein on 02-13-2025 Globulin (S) [Mass/Vol] 4.3 g/dL High 2.2-4.2 [facility] Serum glucose measurement (m ass/volume)Ordered By: Kimmie Hussein on 02-13-2025 Glucose [Mass/Vol] 80 mg/dL 70-99 [facility] Serum or plasma alanine kirkland otransferase (ALT) measurementOrdered By: Kimmie Hussein on 02-13-2025 ALT [Catalytic activity/Vol] 19 U/L <35 [facility] Serum or plasma albumin shell urement (mass/volume)Ordered By: Kimmie Hussein on 02-13-2025 Albumin [Mass/Vol] 3.2 g/dL Low 3.4-4.8 [facility] Serum or plasma albumin/glob ulin mass ratioOrdered By: Kimmie Hussein on 02-13-2025 Albumin/Globulin [Mass ratio] 0.7 {ratio} Low 0.9-2.4 [facility] Serum or plasma alkaline natalie sphatase measurementOrdered By: Kimmie Hussein on 02-13-2025 ALP [Catalytic activity/Vol] 119 U/L High 35-104 [facility] Serum or plasma calcium shell urement (mass/volume)Ordered By: Kimmie Hussein on 02-13-2025 Calcium [Mass/Vol] 9.2 mg/dL 7.6-11.0 [facility] Serum or plasma urea nitroge n measurement (mass/volume)Ordered By: Kimmie Hussein on 02-13-2025 Urea nitrogen [Mass/Vol] 13 mg/dL 4-19 [facility] Sodium levelOrdered By: Sherry Hussein on 02-13-2025 Sodium [Moles/Vol] 139 mmol/L 133-145 [facility] Total proteinOrdered By: Neena Hussein on 02-13-2025 Protein [Mass/Vol] 7.4 g/dL 5.9-8.4 [facility] White blood cell (WBC) count Ordered By: Kimmie Hussein on 02-13-2025 WBC (Bld) [#/Vol] 11.5 10*3/uL High 4.4-11.0 [facility] CNPNon 02-08-2025 [facility]ARY [facility] ([id number]) 1940 F TXT Date Time Provider Department 02/08/25 ATUL HARVEY [facility] During your visit today, we recorded the following information about you: Ely Alarcon LPN 02/08/2025 2:58 PM Signed Felicitas from [facility] calling to check if patient should be taking her Allopurinol 100 mg one tablet daily? She did a medication organizer for a week and patient had generic Crestor 10 mg in home, using it instead of the Atorvastatin 20 mg since [place] not setting up bubble packs for about 7 to 10 days. Please advise Milana Armijo APRN.[employer]OC[employer] BAGGER 02/09/2025 9:02 AM Signed Yes, she should be taking allopurinol. This is on medication list and recently refilled. OK with crestor until [place] sets up daily packages. Thank you, Milana Armijo APRN.GROCERY BAGGER Ely Alarcon LPN 02/09/2025 4:16 PM Signed Phoned Felicitas and went over notes from [facility] [employer] with understanding. Allergies As of Date: 02/08/2025 Noted Allergy Reaction FLOXIN (OFLOXACIN) 09/10/2005 10 - Anaphylaxis BUMEX (BUMETANIDE) 09/10/2005 5 - Intolerance HYDROCHLOROTHIAZIDE 09/10/2005 2 - Rash 5 - Intolerance Comments: leucocytoclastic vasculitis KEFLEX (CEPHALEXIN) 09/10/2005 2 - Rash NAPROXEN 09/10/2005 2 - Rash 4 - Hives NORVASC (AMLODIPINE BESYLATE) 09/10/2005 5 - Intolerance PENICILLINS 09/10/2005 5 - Intolerance Comments: Rash PROCTOSOL (HYDROCORTISONE ACETATE)09/10/2005 5 - Intolerance SULFA (SULFONAMIDE ANTIBIOTICS) 09/10/2005 2 - Rash 8 - GI Upset COLCHICINE 10/17/2005 4 - Hives MINOXIDIL 03/24/2011 14 - Other: See Comments Comments: facial hair Date Reviewed: 02/07/2025 Reviewed by: Mary Mendieta LPN - Fully Assessed Reason for Visit: Medication Question [8398] Prescriptions as of 02/09/2025 - furosemide (LASIX) 20 mg tablet Take 1 tablet by mouth once daily. In the morning at 8 am - levothyroxine (LEVOXYL) 75 mcg tablet Take 1 tablet by mouth once daily. Take at 6 am, Take on empty stomach. For Thyroid - amiodarone (PACERONE) 200 mg tablet Take 1 tablet by mouth once daily. Take at 8 am - atorvastatin (LIPITOR) 20 mg tablet Take 1 tablet by mouth once daily. At 8 pm - apixaban (ELIQUIS) 5 mg tab(s) Take 1 tablet by mouth two times a day. Take at 8 am and at 8 pm - DULoxetine (CYMBALTA) 30 mg capsule Take 1 capsule by mouth once daily. Take at 8 am - folic acid 1 mg tablet Take 2 tablets by mouth once daily. Take at 8 am - loratadine (CLARITIN) 10 mg tablet Take 1 tablet by mouth once daily. Take at 8 am - metoprolol tartrate, short acting, (LOPRESSOR) 50 mg tablet Take 1 tablet by mouth every 12 hours. Take at 8 am and at 8 pm - Vit A,C and T-Ynbhxd-Yrditasi (OCUVITE WITH LUTEIN) 300 mcg-200 mg-27 mg-2 mg tab Take 1 tablet by mouth once daily. Take at 8 am - potassium chloride ER (KLOR-CON M10) 10 mEq tablet Take 1 tablet by mouth two times a day. Take at 8 am and at 8 pm - polyethylene glycol 3350 17 gram packet Take 1 packet by mouth two times a day. Dissolve dose in 4 - 8 ounces of liquid and take as directed. - senna-docusate (SENNA-S) 8.6-50 mg per tablet Take 1 tablet by mouth two times a day. - allopurinol (ZYLOPRIM) 100 mg tablet Take 1 tablet by mouth once daily. - cholecalciferol, Vitamin D3, (VITAMIN D3) 1,250 mcg (50,000 unit) cap capsule Take 1 capsule by mouth one time a week. - nystatin (NYSTOP) powder Apply 1 application to affected area four times a day as needed. Yeast infection/rash in groin and under breasts - ketoconazole (NIZORAL) 2 % cream Apply to affected area two times a day. - triamcinolone acetonide (KENALOG) 0.1 % cream Apply 1 application to affected area two times a day as needed (rash). Apply sparingly to area for rash/itching. - Cholecalciferol, Vitamin D3, 50 mcg (2,000 unit) cap Take 1 capsule by mouth once daily. - dicyclomine (BENTYL) 10 mg capsule Take 1 capsule by mouth before meals and at bedtime. For diarrhea or abdominal cramping - cyanocobalamin (VITAMIN B-12) 1,000 mcg tab Take 1,000 mcg by mouth every other day in the morning. - triamcinolone acetonide (KENALOG) 0.1 % cream Apply 1 application to affected area twice daily. On rash, Apply sparingly to area for rash/itching. - vit A/vit C/vit E/zinc/copper (OCUVITE PRESERVISION ORAL) Take by mouth twice daily. - apremilast (OTEZLA) 30 mg tablet Take 30 mg by mouth twice daily. - hydrocortisone probutate 0.1 % crea Apply to affected area once daily as needed. - acetaminophen (TYLENOL) 325 mg tablet Take 650 mg by mouth every 6 hours as needed. Problem List As Of Date 02/08/2025 Noted Resolved Benign neoplasm of colon [D12.6] 09/30/2005 02/24/2020 DIVERTICULOSIS OF COLON W/O BLEED [K57.30] 09/30/2005 Internal hemorrhoids without mention of complic*09/30/2005 02/24/2020 CARPAL TUNNEL SYNDROME [G56.00] (more content not included)... Normal [facility] CNOVon 02-07-2025 CNOV Office Visit ([facility] ) MARY CRANE ([id number]) 1940 F TXT Date Time Provider Department 02/07/25 10:00 AM ATUL HARVEY [facility] During your visit today, we recorded the following information about you: Temperature Pulse Respiration Blood pressure 97 degrees 64/minute 20/minute 124/72 Weight 66.2 kg Atul Harvey, DO 02/07/2025 4:34 PM Signed Had RSV viral infection and was seen in the hospital. She was diagnsoed with atrial fibrillation and started on anticoagulant Then later fell against her left side and then 2-3 weeks after this fell when she tripped over her cat- falling against her left side. She was assessed by [place] [facility] and had xrays to make sure no fractures or bone injuries overall. The specialist wasn't sure where the pain was happening Was started on PHYSICAL THERAPY at home with benefit x multiple episodes Started not feeling well at 12 midnight- felt that she was lightheaded and dizzy, she was sitting on the toilet and felt like she was going to pass out- she did fall against the edge of her bathtub and passed out before her family was able to come to help her, they live right beside her. She had a distended abdomen area and was jaundiced and her left flank was painful and was also having a lot of left shoulder pain as well for referral. Her daughter and son in law took her to the hospital EMERGENCY DEPARTMENT. On 01/06/25 she was seen in the EMERGENCY DEPARTMENT and had CT abdomen and pelvis- she had a spleen laceration and bleeding into the abdominal wall. She had 5 units of PRBC before she was transported to another hospital for potential surgery at [facility]. Had surgery by Dr. Acevedo and Dr. 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 Last saw [employer] Re[employer]er in Oct at [facility]- he is managing the blood thinners. Was transported to [facility] for 11 days after discharge home Was on oxygen therapy after this episode but oxygen levels at home have stayed stable CC: Mary Crane is a 84 year old female who presents to the office for Hospital follow up HPI: Patient is present with her daughter Samanta today in the office Feels that she had a downward spiral in her health After she had RSV viral infection and was seen in the hospital for her symptoms. 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 Then later fell against her left side and then 2-3 weeks after this fell when she tripped over her cat- falling against her left side. She was assessed by [place] [facility] and had xrays to make sure no fractures or bone injuries overall. The specialist wasn't sure where the pain was happening from as the trigger. Was started on PHYSICAL THERAPY at home with benefit x multiple episodes Started not feeling well at 12 midnight on 01/06- felt that she was lightheaded and dizzy, she was sitting on the toilet and felt like she was going to pass out- she did fall against the edge of her bathtub and passed out before her family was able to come to help her, they live right beside her. She had a distended abdomen area and was jaundiced and her left flank was painful and was also having a lot of left shoulder pain as well for referral. Her daughter and son in law took her to the hospital EMERGENCY DEPARTMENT. On 01/06/25 she was seen in the EMERGENCY DEPARTMENT and had CT abdomen and pelvis- she had a spleen laceration and bleeding into the abdominal wall. She had 5 units of PRBC before she was transported to another hospital for potential surgery at [facility]. 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 Last saw [employer] Re[employer]er in Oct at [facility]- he is managing the blood thinners. She has an upcoming appt next week to discuss forward plans with her medication Bowel health is back to normal- denies constipation Mood, stable, has a lot of support from her family She transported to [facility] for 11 days after discharge from the hospital. She has now been home for 4 days. Was on oxygen therapy after this episode but oxygen levels at home have stayed stable. She would like to discontinue this if able since doesn't feel she is having any dyspnea symptoms. PAST MEDICAL HISTORY Diagnosis Date Advance care planning 04/01/2022 Daughter Noemy Arrhythmia Benign neoplasm of colon Chronic kidney disease 02/09/2015 Diverticulosis of colon (without mention of hemorrhage) IFG (impaired fasting glucose) 03/2022 Incisional hernia 07/06/2015 Internal hemorrhoids without mention of complication Rheumatoid arthritis(714.0) Rheumatoid arthritis(714.0) Sicca syndrome (HCC) Unspecified essential hypertension PAST SURGICAL HISTORY Procedure Laterality Date CATARACT EXTRAC (more content not included)... Normal [facility] Sarah 02-07-2025 [facility] Telephone ([facility]) MARY CRANE ([id number]) 1940 F TXT Date Time Provider Department 02/07/25 RASHEED BARRIOS During your visit today, we recorded the following information about you: Elizabeth Yeh MA 02/07/2025 1:44 PM Signed Pt's daughter and POA calling to see if pt can switch from Eliquis to Aspirin. Daughter states that told them to check with Cardiology to see if this was an option. They have 2 days of Eliquis and then they will make a new 30 day pill pack for her. The cost is significant. Advised that pt has appt on Thursday and would most likely need to be assesed by the [employer] Car [employer]er prior to making any changes. 01/10/25 EKG still showing A fib. Daughter would like to ask [employer]er if it is an option to switch from Eliquis to Aspirin prior to the appt on Thursday. If so, they will have us fax the order to [facility] in [place]. Please review and advise. DEBORAH Reyes Danelle, JOSE 02/08/2025 2:12 PM Signed Velma Montes APRN.Elizabeth Lai MA2 hours ago (11:54 AM) ASA does not offer for stroke risk reduction in the setting of a-fib and is not an appropriate substitute for eliquis. Thank you, Velma Montes APRN.Tracy Arceo, JOSE 02/08/2025 2:12 PM Signed DaughterNoemy, and below message given. Patient has an appointment on Thursday and will discuss with MD at that time. Tracy Rawls RN Allergies As of Date: 02/07/2025 Noted Allergy Reaction FLOXIN (OFLOXACIN) 09/10/2005 10 - Anaphylaxis BUMEX (BUMETANIDE) 09/10/2005 5 - Intolerance HYDROCHLOROTHIAZIDE 09/10/2005 2 - Rash 5 - Intolerance Comments: leucocytoclastic vasculitis KEFLEX (CEPHALEXIN) 09/10/2005 2 - Rash NAPROXEN 09/10/2005 2 - Rash 4 - Hives NORVASC (AMLODIPINE BESYLATE) 09/10/2005 5 - Intolerance PENICILLINS 09/10/2005 5 - Intolerance Comments: Rash PROCTOSOL (HYDROCORTISONE ACETATE)09/10/2005 5 - Intolerance SULFA (SULFONAMIDE ANTIBIOTICS) 09/10/2005 2 - Rash 8 - GI Upset COLCHICINE 10/17/2005 4 - Hives MINOXIDIL 03/24/2011 14 - Other: See Comments Comments: facial hair Date Reviewed: 02/07/2025 Reviewed by: Mary Mendieta LPN - Fully Assessed Reason for Visit: Medication Problem [65] Patient Question [1477] Prescriptions as of 02/08/2025 - furosemide (LASIX) 20 mg tablet Take 1 tablet by mouth once daily. In the morning at 8 am - levothyroxine (LEVOXYL) 75 mcg tablet Take 1 tablet by mouth once daily. Take at 6 am, Take on empty stomach. For Thyroid - amiodarone (PACERONE) 200 mg tablet Take 1 tablet by mouth once daily. Take at 8 am - atorvastatin (LIPITOR) 20 mg tablet Take 1 tablet by mouth once daily. At 8 pm - apixaban (ELIQUIS) 5 mg tab(s) Take 1 tablet by mouth two times a day. Take at 8 am and at 8 pm - DULoxetine (CYMBALTA) 30 mg capsule Take 1 capsule by mouth once daily. Take at 8 am - folic acid 1 mg tablet Take 2 tablets by mouth once daily. Take at 8 am - loratadine (CLARITIN) 10 mg tablet Take 1 tablet by mouth once daily. Take at 8 am - metoprolol tartrate, short acting, (LOPRESSOR) 50 mg tablet Take 1 tablet by mouth every 12 hours. Take at 8 am and at 8 pm - Vit A,C and W-Clbgqd-Hcpqccgm (OCUVITE WITH LUTEIN) 300 mcg-200 mg-27 mg-2 mg tab Take 1 tablet by mouth once daily. Take at 8 am - potassium chloride ER (KLOR-CON M10) 10 mEq tablet Take 1 tablet by mouth two times a day. Take at 8 am and at 8 pm - polyethylene glycol 3350 17 gram packet Take 1 packet by mouth two times a day. Dissolve dose in 4 - 8 ounces of liquid and take as directed. - senna-docusate (SENNA-S) 8.6-50 mg per tablet Take 1 tablet by mouth two times a day. - allopurinol (ZYLOPRIM) 100 mg tablet Take 1 tablet by mouth once daily. - cholecalciferol, Vitamin D3, (VITAMIN D3) 1,250 mcg (50,000 unit) cap capsule Take 1 capsule by mouth one time a week. - nystatin (NYSTOP) powder Apply 1 application to affected area four times a day as needed. Yeast infection/rash in groin and under breasts - ketoconazole (NIZORAL) 2 % cream Apply to affected area two times a day. - triamcinolone acetonide (KENALOG) 0.1 % cream Apply 1 application to affected area two times a day as needed (rash). Apply sparingly to area for rash/itching. - Cholecalciferol, Vitamin D3, 50 mcg (2,000 unit) cap Take 1 capsule by mouth once daily. - dicyclomine (BENTYL) 10 mg capsule Take 1 capsule by mouth before meals and at bedtime. For diarrhea or abdominal cramping - cyanocobalamin (VITAMIN B-12) 1,000 mcg tab Take 1,000 mcg by mouth every other day in the morning. - triamcinolone acetonide (KENALOG) 0.1 % cream Apply 1 application to affected area twice daily. On rash, Apply sparingly to area for rash/itching. - vit A/vit C/vit E/zinc/copper (OCUVITE PRESERVISION ORAL) Take by mouth twice daily. - apremilast (OTEZLA) 30 mg tablet Take (more content not included)... Normal [facility] 25-hydroxyvitamin D3 [Mass/Vol] 61.8 ng/mL Normal 31.0-80.0 [facility] Comment on above: Order Comment: Speci men Type: BLOOD SPECIMEN Ordering Facility: [facility] Address: [address] [place], [place] [address] [address] Result Comment: Claaubrey sification of 25 [place] Vitamin D status: Deficiency/Insufficiency: < or = 30 ng/ml. Sufficiency/Optimal Levels: 31-80 ng/mL Toxicity: > 100 ng/mL. Test performed by chemiluminescent immunoassay. Performed By: #### 1 989-3 #### [facility] CLIA [id number] [address] [place] [address] [place] CBC panel Auto (Bld)on 02-06 Erythrocyte distribution width (RBC) [Ratio] 15.6 % High 11.5-15.0 [facility] Comment on above: Order Comment: Speci men Type: BLOOD SPECIMEN Ordering Facility: [facility] Address: [address] [place] [address] Performed By: #### 2 432-8, 2132-06 #### [facility] CLIA [id number] [address] [place] [address] [place] Hematocrit (Bld) [Volume fraction] 35.2 % Low 36.0-46.0 [facility] Comment on above: Order Comment: Speci men Type: BLOOD SPECIMEN Ordering Facility: [facility] Address: [address] [place] [address] Performed By: #### 2 432-8, 2132-06 #### [facility] IA [id number] [address] [place] [address] [place] Hemoglobin (Bld) [Mass/Vol] 10.5 g/dL Low 11.5-15.5 [facility] Comment on above: Order Comment: Speci men Type: BLOOD SPECIMEN Ordering Facility: [facility] Address: [address] [place] [address] Performed By: #### 2 432-8, 2132-06 #### [facility] CLIA [id number] [address] [place] [address] [place] MCH (RBC) [Entitic mass] 26.3 pg Normal 26.0-34.0 [facility] Comment on above: Order Comment: Speci men Type: BLOOD SPECIMEN Ordering Facility: [facility] Address: [address] [place] [address] Performed By: #### 2 4323-8, 2132-06 #### [facility] CLIA [id number] [address] [place] [address] [place] MCHC (RBC) [Mass/Vol] 29.8 g/dL Low 30.5-36.0 [facility] Comment on above: Order Comment: Speci men Type: BLOOD SPECIMEN Ordering Facility: [facility] Address: [address] [place] [address] Performed By: #### 2 432-8, 2132-06 #### [facility] CLIA [id number] [address] [place] [address] [place] MCV (RBC) [Entitic vol] 88.2 fL Normal 80.0-100.0 [facility] Comment on above: Order Comment: Speci men Type: BLOOD SPECIMEN Ordering Facility: [facility] Address: [address] [place] [address] Performed By: #### 2 432-8, 2132-06 #### [facility] CLIA [id number] [address] [place] [address] [place] Nucleated RBC (Bld) [#/Vol] 10*3/uL Normal <0.01 [facility] Comment on above: Order Comment: Speci men Type: BLOOD SPECIMEN Ordering Facility: [facility] Address: [address] [place] [address] Performed By: #### 2 4328, 2132-06 #### [facility] CLIA [id number] [address] [place] [address] [place] Platelet mean volume (Bld) [Entitic vol] 11.2 fL Normal 9.0-12.7 [facility] Comment on above: Order Comment: Speci men Type: BLOOD SPECIMEN Ordering Facility: [facility] Address: [address] [place] [address] Performed By: #### 2 4323-8, 2132-06 #### [facility] CLIA [id number] [address] [place] [address] [place] Platelets (Bld) [#/Vol] 568 10*3/uL High 150-400 [facility] Comment on above: Order Comment: Speci men Type: BLOOD SPECIMEN Ordering Facility: [facility] Address: [address] [place] [address] Performed By: #### 2 4323-8, 2132-06 #### [facility] CLIA [id number] [address] [place] [address] [place] RBC (Bld) [#/Vol] 3.99 10*6/uL Normal 3.90-5.20 [facility] Comment on above: Order Comment: Speci men Type: BLOOD SPECIMEN Ordering Facility: [facility] Address: [address] [place] [address] Performed By: #### 2 4323-8, 2132-06 #### [facility] CLIA [id number] [address] [place] [address] [place] WBC (Bld) [#/Vol] 13.09 10*3/uL High 3.70-11.00 [facility] Comment on above: Order Comment: Speci men Type: BLOOD SPECIMEN Ordering Facility: [facility] Address: [address] [place] [address] Performed By: #### 2 4323-8, 2132-06 #### [facility] CLIA [id number] [address] [place] [address] [place] Comprehensive metabolic 2000 panelon 02-06-2025 Albumin [Mass/Vol] 3.2 g/dL Low 3.9-4.9 [facility] Comment on above: Order Comment: Speci men Type: BLOOD SPECIMEN Ordering Facility: [facility] Address: [address] [place] [address] Performed By: #### 2 4323-8, 2132-06 #### [facility] CLIA [id number] [address] [place] [address] [place] ALP [Catalytic activity/Vol] 128 U/L High 34-123 [facility] Comment on above: Order Comment: Speci men Type: BLOOD SPECIMEN Ordering Facility: [facility] Address: [address] [place] [id number] Performed By: #### 2 4323-8, 2132-06 #### [facility] CLIA [id number] [address] [place], [place] [address] [place] ALT [Catalytic activity/Vol] 26 U/L Normal 7-38 [facility] Comment on above: Order Comment: Speci men Type: BLOOD SPECIMEN Ordering Facility: [facility] Address: [address] [place] [id number] Performed By: #### 2 432-8, 2132-06 #### [facility] CLIA [id number] [address] [place] [address] [place] Anion gap [Moles/Vol] 12 mmol/L Normal 8-15 [facility] Comment on above: Order Comment: Speci men Type: BLOOD SPECIMEN Ordering Facility: [facility] Address: [address] [place] [address] Performed By: #### 2 4328, 2132-06 #### [facility] CLIA [id number] [address] [place] [address] [place] AST [Catalytic activity/Vol] 40 U/L High 13-35 [facility] Comment on above: Order Comment: Speci men Type: BLOOD SPECIMEN Ordering Facility: [facility] Address: [address] [place] [id number] Performed By: #### 2 4323-8, 2132-06 #### [facility] CLIA [id number] [address] [place] [address] [place] Bilirubin [Mass/Vol] 0.2 mg/dL Normal 0.2-1.3 [facility] Comment on above: Order Comment: Speci men Type: BLOOD SPECIMEN Ordering Facility: [facility] Address: [address] [place] [address] Performed By: #### 2 432-8, 2132-06 #### [facility] CLIA [id number] [address] [place] [address] [place] Calcium [Mass/Vol] 9.4 mg/dL Normal 8.5-10.2 [facility] Comment on above: Order Comment: Speci men Type: BLOOD SPECIMEN Ordering Facility: [facility] Address: [address] [place], [place] [address] Performed By: #### 2 4323-05, 2132-06 #### [facility] CLIA [id number] [address] [place] [address] [place] Chloride [Moles/Vol] 99 mmol/L Normal 98-107 [facility] Comment on above: Order Comment: Speci men Type: BLOOD SPECIMEN Ordering Facility: [facility] Address: [address] [place] [address] Performed By: #### 2 4323-05, 2132-06 #### [facility] CLIA [id number] [address] [place] [address] [place] CO2 [Moles/Vol] 30 mmol/L Normal 22-30 [facility] Comment on above: Order Comment: Speci men Type: BLOOD SPECIMEN Ordering Facility: [facility] Address: [address] [place], [place] [address] Performed By: #### 2 4323-05, 2132-06 #### [facility] CLIA [id number] [facility] [place] [address] [place] Creatinine [Mass/Vol] 0.96 mg/dL Normal 0.58-0.96 [facility] Comment on above: Order Comment: Speci men Type: BLOOD SPECIMEN Ordering Facility: [facility] Address: [address] [place], [place] [address] Performed By: #### 2 43212-17, 2132-06 #### [facility] CLIA [id number] [address] [place] [address] [place] Creatinine and Glomerular filtration rate.predicted panel (S/P/Bld) 58 mL/min/1.73m??? Low >=60 [facility] Comment on above: Order Comment: Adelita austin Type: BLOOD SPECIMEN Ordering Facility: [facility] Address: [address] [place] [address] Result Comment: Ely mated Glomerular Filtration Rate (eGFR) is calculated using the 2020 CKD-EPI creatinine equation. This equation utilizes serum creatinine, sex, and age as parameters. The creatinine assay has traceable calibration to isotope dilution-mass spectrometry. Refer to KDIGO guidelines for clinical interpretation. In patients with unstable renal function, e.g. those with acute kidney injury, the eGFR may not accurately reflect actual GFR. Performed By: #### 2 4323-8, 2132-06 #### [facility] CLIA [id number] [address] [place] [address] [place] Glucose [Mass/Vol] 103 mg/dL High 74-99 [facility] Comment on above: Order Comment: Adelita austin Type: BLOOD SPECIMEN Ordering Facility: [facility] Address: [address] [place] [address] Result Comment: The [place] Diabetes Association (ADA) provides guidance for cutoff values for fasting glucose and random glucose. The ADA defines fasting as no caloric intake for at least 8 hours. Fasting plasma glucose results between 100 to 125 mg/dL indicate increased risk for diabetes (prediabetes). Fasting plasma glucose results greater than or equal to 126 mg/dL meet the criteria for diagnosis of diabetes. In the absence of unequivocal hyperglycemia, results should be confirmed by repeat testing. In a patient with classic symptoms of hyperglycemia or hyperglycemic crisis, random plasma glucose results greater than or equal to 200 mg/dL meet the criteria for diagnosis of diabetes. Reference: Standards of Medical Care in Diabetes 2016, [place] Diabetes Association. Diabetes Care. 2016.39(Suppl 1). Performed By: #### 2 4323-8, 2132-06 #### [facility] CLIA [id number] [address] [place], [place] [address] [place] Potassium [Moles/Vol] 3.4 mmol/L Low 3.7-5.1 [facility] Comment on above: Order Comment: Speci men Type: BLOOD SPECIMEN Ordering Facility: [facility] Address: [address] [place] [address] Performed By: #### 2 43212-17, 2132-06 #### [facility] CLIA [id number] [address] [place] [address] [place] Protein [Mass/Vol] 7.6 g/dL Normal 6.3-8.0 [facility] Comment on above: Order Comment: Speci men Type: BLOOD SPECIMEN Ordering Facility: [facility] Address: [address] [place] [address] Performed By: #### 2 43212-17, 2132-06 #### [facility] CLIA [id number] [address] [place] [address] [place] Sodium [Moles/Vol] 141 mmol/L Normal 136-144 [facility] Comment on above: Order Comment: Speci men Type: BLOOD SPECIMEN Ordering Facility: [facility] Address: [address] [place] [address] Performed By: #### 2 4323-05, 2132-06 #### [facility] CLIA [id number] [address] [place] [address] [place] Urea nitrogen [Mass/Vol] 11 mg/dL Normal 7-21 [facility] Comment on above: Order Comment: Speci men Type: BLOOD SPECIMEN Ordering Facility: [facility] Address: [address] [place] [address] Performed By: #### 2 4323-05, 2132-06 #### [facility] CLIA [id number] [address] [place] [address] [place] HbA1c (Bld)on 02-06-2025 Average glucose Estimated from glycated hemoglobin (Bld) [Mass/Vol] 105 mg/dL Normal [facility] Comment on above: Order Comment: Adelita austin Type: BLOOD SPECIMEN Ordering Facility: [facility] Address: [address] [place] [address] Result Comment: eAG: (Estimated average glucose) is a calculated value from HgbA1c and is wireless 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 of the average blood glucose level in the last 2-3 month period. Performed By: #### 5 8410-2 #### [facility] CLIA [id number] [address] [place] [address] [place] HbA1c (Bld) [Mass fraction] 5.3 % Normal 4.3-5.6 [facility] Comment on above: Order Comment: Adelita austin Type: BLOOD SPECIMEN Ordering Facility: [facility] Address: [address] [place] [address] Result Comment: [place] Diabetes Association guidelines indicate that patients with HgbA1c in the range 5.7-6.4% are at increased risk for development of diabetes, and intervention by lifestyle modification may be beneficial. HgbA1c greater or equal to 6.5% is considered diagnostic of diabetes. Performed By: #### 5 8410-2 #### [facility] CLIA [id number] [address] [place] [address] [place] Lipid 1996 panelon 5 Cholesterol [Mass/Vol] 99 mg/dL Normal <200 [facility] Comment on above: Order Comment: Adelita austin Type: BLOOD SPECIMEN Ordering Facility: [facility] Address: [address] [place] [address] Result Comment: <200 mg/dL, Desirable 200-239 mg/dL, Borderline high >239 mg/dL, High Performed By: #### 2 4323-8, 2132-9 #### [facility] CLIA [id number] [address] [place] [address] [place] Cholesterol in HDL [Mass/Vol] 40 mg/dL Normal >39 [facility] Comment on above: Order Comment: Adelita austin Type: BLOOD SPECIMEN Ordering Facility: [facility] Address: [address] [place] [address] Result Comment: 40-5 9 mg/dL, Acceptable >59 mg/dL, High: Negative risk factor for coronary heart disease <40 mg/dL, Low: Positive risk factor for coronary heart disease Performed By: #### 2 4323-05, 2132-06 #### [facility] CLIA [id number] [address] [place] [address] [place] Cholesterol in LDL [Mass/Vol] 41 mg/dL Normal <100 [facility] Comment on above: Order Comment: Speci men Type: BLOOD SPECIMEN Ordering Facility: [facility] Address: [address] [place] [address] Result Comment: <100 mg/dL, Optimal 100-129 mg/dL, Near optimal/above optimal 130-159 mg/dL, Borderline high 160-189 mg/dL, High >189 mg/dL, Very high Secondary prevention optimal LDL Cholesterol levels are recommended to be <70 mg/dL LDL cholesterol is calculated using the Loredo-NIH equation. Performed By: #### 2 4323-05, 2132-06 #### [facility] CLIA [id number] [address] [place] [address] [place] Cholesterol in LDL/Cholesterol in HDL [Mass ratio] 1.03 {ratio} Normal <2.54 [facility] Comment on above: Order Comment: Speci men Type: BLOOD SPECIMEN Ordering Facility: [facility] Address: [address] [place] [address] Result Comment: Dveen mendez: 1. National Cholesterol Education Program ATP III Guideline At-A-Glance Quick Desk Reference: National Heart, Lung, and Blood [place]. National Institutes of Health. 2001: NIH Publication No. 01-3305. 2. An International Atherosclerosis Society position paper: global recommendations for the management of dyslipidemia: executive summary, Atherosclerosis. 2014: 232(2):410-413. Performed By: #### 2 4323-05, 2132-06 #### [facility] CLIA [id number] [address] [place] [address] [place] Cholesterol in VLDL [Mass/Vol] 13 mg/dL Normal <30 [facility] Comment on above: Order Comment: Speci men Type: BLOOD SPECIMEN Ordering Facility: [facility] Address: [address] [place] [address] Performed By: #### 2 4323-05, 2132-06 #### [facility] CLIA [id number] [address] [place], [place] [address] [place] Cholesterol non HDL [Mass/Vol] 59 mg/dL Normal <130 [facility] Comment on above: Order Comment: Speci men Type: BLOOD SPECIMEN Ordering Facility: [facility] Address: [address] [place] [address] Result Comment: <130 mg/dL, Optimal 130-159 mg/dL, Near optimal/above optimal 160-189 mg/dL, Borderline high 190-219 mg/dL, High >219 mg/dL, Very high Secondary prevention optimal non HDL Cholesterol levels are recommended to be <100 mg/dL Performed By: #### 2 4323-05, 2132-06 #### [facility] CLIA [id number] [address] [place] [address] [place] Cholesterol.total/Choles terol in HDL [Mass ratio] 2.48 {ratio} Normal <5.10 [facility] Comment on above: Order Comment: Speci men Type: BLOOD SPECIMEN Ordering Facility: [facility] Address: [address] [place] [address] Performed By: #### 2 4323-05, 2132-06 #### [facility] CLIA [id number] [address] [place], [place] [address] [place] FASTING TIME 12 hrs Normal [facility] Comment on above: Order Comment: Speci men Type: BLOOD SPECIMEN Ordering Facility: [facility] Address: [address] [place] [address] Performed By: #### 2 43212-17, 2132-06 #### [facility] CLIA [id number] [address] [place] [address] [place] Triglyceride [Mass/Vol] 95 mg/dL Normal <150 [facility] Comment on above: Order Comment: Speci men Type: BLOOD SPECIMEN Ordering Facility: [facility] Address: [address] [place] [address] Result Comment: <150 mg/dL, Normal 150-199 mg/dL, Borderline high 200-499 mg/dL, High >499 mg/dL, Very high Performed By: #### 2 43238, 2132-06 #### [facility] CLIA [id number] [address] [place] [address] [place] TSH SerPl-aCncon 02-06-2025 TSH Qn 2.640 m[IU]/L Normal 0.270-4.200 [facility] Comment on above: Order Comment: Speci men Type: BLOOD SPECIMEN Ordering Facility: [facility] Address: [address] [place] [address] Performed By: #### 2 43238, 2132-06 #### [facility] CLIA [id number] [address] [place] [address] [place] Vit B12 SerPl-mCncon 025 Cobalamin (Vitamin B12) [Mass/Vol] 1858 pg/mL High 232-1245 [facility] Comment on above: Order Comment: Speci men Type: BLOOD SPECIMEN Ordering Facility: [facility] Address: [address] [place] [address] Performed By: #### 2 43238, 2132-06 #### [facility] CLIA [id number] [address] [place] [address] [place] CNPSelina 02-02-2025 [facility] SELVAGE,MARY R ([id number]) 1940 F TXT Date Time Provider Department 02/02/25 ATUL HARVEY During your visit today, we recorded the following information about you: Ely Alarcon LPN 02/02/2025 1:02 PM Signed Felicitas from [facility] calling patient had been discharged from [facility] earlier this month, sent home with pill packs. Trying to get patient set up with [place] in [place] to continue with pill packs. Patient has lots of medications that need clarified, Furosemide dose, Allopurinol if to be taking, Losartan 50 mg once daily, Metoprolol dose. Asking daughter to bring pill packs and pill bottles to appt on 02/07 with PCP. Catalina Jauregui APRN.FELICIA 02/02/2025 1:04 PM Signed Agree with below. Catalina Jauregui APRN.Lulú Perez MA 02/02/2025 1:27 PM Signed Felicitas notified [place] Allergies As of Date: 02/02/2025 Noted Allergy Reaction FLOXIN (OFLOXACIN) 09/10/2005 10 - Anaphylaxis BUMEX (BUMETANIDE) 09/10/2005 5 - Intolerance HYDROCHLOROTHIAZIDE 09/10/2005 2 - Rash 5 - Intolerance Comments: leucocytoclastic vasculitis KEFLEX (CEPHALEXIN) 09/10/2005 2 - Rash NAPROXEN 09/10/2005 2 - Rash 4 - Hives NORVASC (AMLODIPINE BESYLATE) 09/10/2005 5 - Intolerance PENICILLINS 09/10/2005 5 - Intolerance Comments: Rash PROCTOSOL (HYDROCORTISONE ACETATE)09/10/2005 5 - Intolerance SULFA (SULFONAMIDE ANTIBIOTICS) 09/10/2005 2 - Rash 8 - GI Upset COLCHICINE 10/17/2005 4 - Hives MINOXIDIL 03/24/2011 14 - Other: See Comments Comments: facial hair Date Reviewed: 01/15/2025 Reviewed by: Deepika Amezcua, JOSE - Fully Assessed Reason for Visit: medication needs clarified at her appt on 02/07 [Other] Prescriptions as of 02/02/2025 - metoprolol tartrate, short acting, (LOPRESSOR) 50 mg tablet Take 1 tablet by mouth every 12 hours. - DULoxetine (CYMBALTA) 30 mg capsule Take 1 capsule by mouth once daily. - polyethylene glycol 3350 17 gram packet Take 1 packet by mouth two times a day. Dissolve dose in 4 - 8 ounces of liquid and take as directed. - senna-docusate (SENNA-S) 8.6-50 mg per tablet Take 1 tablet by mouth two times a day. - levothyroxine (LEVOXYL) 25 mcg tablet Take 1 tablet by mouth once daily. Take on empty stomach. For Thyroid - allopurinol (ZYLOPRIM) 100 mg tablet Take 1 tablet by mouth once daily. - furosemide (LASIX) 20 mg tablet Take 1 tablet by mouth once daily. - amiodarone (PACERONE) 200 mg tablet Take 1 tablet by mouth once daily. - apixaban (ELIQUIS) 5 mg tab(s) Take 1 tablet by mouth two times a day. - cholecalciferol, Vitamin D3, (VITAMIN D3) 1,250 mcg (50,000 unit) cap capsule Take 1 capsule by mouth one time a week. - potassium chloride ER (KLOR-CON M10) 10 mEq tablet Take 1 tablet by mouth two times a day. - rosuvastatin (CRESTOR) 10 mg tablet Take 1 tablet by mouth once daily. - nystatin (NYSTOP) powder Apply 1 application to affected area four times a day as needed. Yeast infection/rash in groin and under breasts - ketoconazole (NIZORAL) 2 % cream Apply to affected area two times a day. - folic acid 1 mg tablet Take 2 tablets by mouth once daily. - triamcinolone acetonide (KENALOG) 0.1 % cream Apply 1 application to affected area two times a day as needed (rash). Apply sparingly to area for rash/itching. - Cholecalciferol, Vitamin D3, 50 mcg (2,000 unit) cap Take 1 capsule by mouth once daily. - dicyclomine (BENTYL) 10 mg capsule Take 1 capsule by mouth before meals and at bedtime. For diarrhea or abdominal cramping - cyanocobalamin (VITAMIN B-12) 1,000 mcg tab Take 1,000 mcg by mouth every other day in the morning. - triamcinolone acetonide (KENALOG) 0.1 % cream Apply 1 application to affected area twice daily. On rash, Apply sparingly to area for rash/itching. - vit A/vit C/vit E/zinc/copper (OCUVITE PRESERVISION ORAL) Take by mouth twice daily. - apremilast (OTEZLA) 30 mg tablet Take 30 mg by mouth twice daily. - hydrocortisone probutate 0.1 % crea Apply to affected area once daily as needed. - loratadine (CLARITIN) 10 mg tablet Take 10 mg by mouth once daily. Takes daily as needed - acetaminophen (TYLENOL) 325 mg tablet Take 650 mg by mouth every 6 hours as needed. Problem List As Of Date 02/02/2025 Noted Resolved Benign neoplasm of colon [D12.6] 09/30/2005 02/24/2020 DIVERTICULOSIS OF COLON W/O BLEED [K57.30] 09/30/2005 Internal hemorrhoids without mention of complic*09/30/2005 02/24/2020 CARPAL TUNNEL SYNDROME [G56.00] 10/17/2005 03/12/2006 LOC PRIM OSTEOARTH-HAND [M19.049] 10/17/2005 Other tenosynovitis of hand and wrist [M65.849,*10/17/2005 02/24/2020 Follow-up examination, following unspecified lindsay*02/26/2006 02/08/2015 Rheumatoid arthritis involving multiple sites w*02/27/2006 CARPAL TUNNEL SYNDROME [G56.00] 03/17/2006 HYPERTENSION NOS (more content not included)... [facility]ARY [facility] ([id number]) 1940 F TXT Date Time Provider Department 01/31/25 ATUL HARVEY [facility] During your visit today, we recorded the following information about you: Nancy Mccann RN 01/31/2025 2:19 PM Signed Carlos with [facility] PT callig with plan of care for patient. Patient will be seen by Physical Therapy 2 times per week for 3 weeks for functional mobility. No call back needed if provider is agreeable. JOSE Harrington Rebekah, APRN.GROCERY BAGGER 02/01/2025 5:32 PM Signed Noted, thank you. Catalina Jauregui APRN.GROCERY BAGGER Allergies As of Date: 01/31/2025 Noted Allergy Reaction FLOXIN (OFLOXACIN) 09/10/2005 10 - Anaphylaxis BUMEX (BUMETANIDE) 09/10/2005 5 - Intolerance HYDROCHLOROTHIAZIDE 09/10/2005 2 - Rash 5 - Intolerance Comments: leucocytoclastic vasculitis KEFLEX (CEPHALEXIN) 09/10/2005 2 - Rash NAPROXEN 09/10/2005 2 - Rash 4 - Hives NORVASC (AMLODIPINE BESYLATE) 09/10/2005 5 - Intolerance PENICILLINS 09/10/2005 5 - Intolerance Comments: Rash PROCTOSOL (HYDROCORTISONE ACETATE)09/10/2005 5 - Intolerance SULFA (SULFONAMIDE ANTIBIOTICS) 09/10/2005 2 - Rash 8 - GI Upset COLCHICINE 10/17/2005 4 - Hives MINOXIDIL 03/24/2011 14 - Other: See Comments Comments: facial hair Date Reviewed: 01/15/2025 Reviewed by: Deepika Amezcua RN - Fully Assessed Reason for Visit: Home Health PT-Plan of Care [Other] Prescriptions as of 02/01/2025 - metoprolol tartrate, short acting, (LOPRESSOR) 50 mg tablet Take 1 tablet by mouth every 12 hours. - DULoxetine (CYMBALTA) 30 mg capsule Take 1 capsule by mouth once daily. - polyethylene glycol 3350 17 gram packet Take 1 packet by mouth two times a day. Dissolve dose in 4 - 8 ounces of liquid and take as directed. - senna-docusate (SENNA-S) 8.6-50 mg per tablet Take 1 tablet by mouth two times a day. - levothyroxine (LEVOXYL) 25 mcg tablet Take 1 tablet by mouth once daily. Take on empty stomach. For Thyroid - allopurinol (ZYLOPRIM) 100 mg tablet Take 1 tablet by mouth once daily. - furosemide (LASIX) 20 mg tablet Take 1 tablet by mouth once daily. - amiodarone (PACERONE) 200 mg tablet Take 1 tablet by mouth once daily. - apixaban (ELIQUIS) 5 mg tab(s) Take 1 tablet by mouth two times a day. - cholecalciferol, Vitamin D3, (VITAMIN D3) 1,250 mcg (50,000 unit) cap capsule Take 1 capsule by mouth one time a week. - potassium chloride ER (KLOR-CON M10) 10 mEq tablet Take 1 tablet by mouth two times a day. - rosuvastatin (CRESTOR) 10 mg tablet Take 1 tablet by mouth once daily. - nystatin (NYSTOP) powder Apply 1 application to affected area four times a day as needed. Yeast infection/rash in groin and under breasts - ketoconazole (NIZORAL) 2 % cream Apply to affected area two times a day. - folic acid 1 mg tablet Take 2 tablets by mouth once daily. - triamcinolone acetonide (KENALOG) 0.1 % cream Apply 1 application to affected area two times a day as needed (rash). Apply sparingly to area for rash/itching. - Cholecalciferol, Vitamin D3, 50 mcg (2,000 unit) cap Take 1 capsule by mouth once daily. - dicyclomine (BENTYL) 10 mg capsule Take 1 capsule by mouth before meals and at bedtime. For diarrhea or abdominal cramping - cyanocobalamin (VITAMIN B-12) 1,000 mcg tab Take 1,000 mcg by mouth every other day in the morning. - triamcinolone acetonide (KENALOG) 0.1 % cream Apply 1 application to affected area twice daily. On rash, Apply sparingly to area for rash/itching. - vit A/vit C/vit E/zinc/copper (OCUVITE PRESERVISION ORAL) Take by mouth twice daily. - apremilast (OTEZLA) 30 mg tablet Take 30 mg by mouth twice daily. - hydrocortisone probutate 0.1 % crea Apply to affected area once daily as needed. - loratadine (CLARITIN) 10 mg tablet Take 10 mg by mouth once daily. Takes daily as needed - acetaminophen (TYLENOL) 325 mg tablet Take 650 mg by mouth every 6 hours as needed. Problem List As Of Date 01/31/2025 Noted Resolved Benign neoplasm of colon [D12.6] 09/30/2005 02/24/2020 DIVERTICULOSIS OF COLON W/O BLEED [K57.30] 09/30/2005 Internal hemorrhoids without mention of complic*09/30/2005 02/24/2020 CARPAL TUNNEL SYNDROME [G56.00] 10/17/2005 03/12/2006 LOC PRIM OSTEOARTH-HAND [M19.049] 10/17/2005 Other tenosynovitis of hand and wrist [M65.849,*10/17/2005 02/24/2020 Follow-up examination, following unspecified lindsay*02/26/2006 02/08/2015 Rheumatoid arthritis involving multiple sites w*02/27/2006 CARPAL TUNNEL SYNDROME [G56.00] 03/17/2006 HYPERTENSION NOS [I10] 05/30/2014 Sicca syndrome (HCC) [M35.00] 11/29/2021 Sialoadenitis [K11.20] 09/04/2008 02/24/2020 Gout [M10.9] 11/18/2010 Hypertension [I10] 12/18/2010 05/29/2016 Pulmonary hypertension [I27.20] 08/27/2011 Sjogren's syndrome [M35.00] 03/04/2013 Dysphagia, unspecified(787.20) [R13.10] 12/21/2014 12/21/2014 Esophag (more content not included)... [facility] MARY CRANE ([id number]) 1940 F TXT Date Time Provider Department 01/30/25 [facility] During your visit today, we recorded the following information about you: Camila Finley, RN 01/30/2025 3:51 PM Signed Candice calling from [facility] to report plan of care for patient and detention will visit patient 2 times a week for 2 weeks and 1 time a week for 2 weeks. senior care will work with patient on managing wound care, managing oxygen, and helping with medications. Candice notes that patient came home with orders to for senna-s BID. Medication was making patient's stools too loose so patient is taking medication PRN Allopurinol was on patient's medication list. Patient is not taking this. Candice is asking for referral to help patient get resources such as home delivery pharmacy. Patient has a 1 cm X .5 cm open area at distal part of incision on abdomin. Candice put in orders to wash incision with soap and water to clean and to keep area dry. Please review and Advise, JOSE Murillo Jordan L, DO 02/03/2025 5:17 PM Signed Noted, ok with referral DO Anam Woodruff Susan LPN 02/06/2025 10:14 AM Signed Candice informed as below. Allergies As of Date: 01/30/2025 Noted Allergy Reaction FLOXIN (OFLOXACIN) 09/10/2005 10 - Anaphylaxis BUMEX (BUMETANIDE) 09/10/2005 5 - Intolerance HYDROCHLOROTHIAZIDE 09/10/2005 2 - Rash 5 - Intolerance Comments: leucocytoclastic vasculitis KEFLEX (CEPHALEXIN) 09/10/2005 2 - Rash NAPROXEN 09/10/2005 2 - Rash 4 - Hives NORVASC (AMLODIPINE BESYLATE) 09/10/2005 5 - Intolerance PENICILLINS 09/10/2005 5 - Intolerance Comments: Rash PROCTOSOL (HYDROCORTISONE ACETATE)09/10/2005 5 - Intolerance SULFA (SULFONAMIDE ANTIBIOTICS) 09/10/2005 2 - Rash 8 - GI Upset COLCHICINE 10/17/2005 4 - Hives MINOXIDIL 03/24/2011 14 - Other: See Comments Comments: facial hair Date Reviewed: 01/15/2025 Reviewed by: Deepika Amezcua RN - Fully Assessed Reason for Visit: Residential plan of care [Other] Prescriptions as of 02/06/2025 - metoprolol tartrate, short acting, (LOPRESSOR) 50 mg tablet Take 1 tablet by mouth every 12 hours. - DULoxetine (CYMBALTA) 30 mg capsule Take 1 capsule by mouth once daily. - polyethylene glycol 3350 17 gram packet Take 1 packet by mouth two times a day. Dissolve dose in 4 - 8 ounces of liquid and take as directed. - senna-docusate (SENNA-S) 8.6-50 mg per tablet Take 1 tablet by mouth two times a day. - levothyroxine (LEVOXYL) 25 mcg tablet Take 1 tablet by mouth once daily. Take on empty stomach. For Thyroid - allopurinol (ZYLOPRIM) 100 mg tablet Take 1 tablet by mouth once daily. - furosemide (LASIX) 20 mg tablet Take 1 tablet by mouth once daily. - amiodarone (PACERONE) 200 mg tablet Take 1 tablet by mouth once daily. - apixaban (ELIQUIS) 5 mg tab(s) Take 1 tablet by mouth two times a day. - cholecalciferol, Vitamin D3, (VITAMIN D3) 1,250 mcg (50,000 unit) cap capsule Take 1 capsule by mouth one time a week. - potassium chloride ER (KLOR-CON M10) 10 mEq tablet Take 1 tablet by mouth two times a day. - rosuvastatin (CRESTOR) 10 mg tablet Take 1 tablet by mouth once daily. - nystatin (NYSTOP) powder Apply 1 application to affected area four times a day as needed. Yeast infection/rash in groin and under breasts - ketoconazole (NIZORAL) 2 % cream Apply to affected area two times a day. - folic acid 1 mg tablet Take 2 tablets by mouth once daily. - triamcinolone acetonide (KENALOG) 0.1 % cream Apply 1 application to affected area two times a day as needed (rash). Apply sparingly to area for rash/itching. - Cholecalciferol, Vitamin D3, 50 mcg (2,000 unit) cap Take 1 capsule by mouth once daily. - dicyclomine (BENTYL) 10 mg capsule Take 1 capsule by mouth before meals and at bedtime. For diarrhea or abdominal cramping - cyanocobalamin (VITAMIN B-12) 1,000 mcg tab Take 1,000 mcg by mouth every other day in the morning. - triamcinolone acetonide (KENALOG) 0.1 % cream Apply 1 application to affected area twice daily. On rash, Apply sparingly to area for rash/itching. - vit A/vit C/vit E/zinc/copper (OCUVITE PRESERVISION ORAL) Take by mouth twice daily. - apremilast (OTEZLA) 30 mg tablet Take 30 mg by mouth twice daily. - hydrocortisone probutate 0.1 % crea Apply to affected area once daily as needed. - loratadine (CLARITIN) 10 mg tablet Take 10 mg by mouth once daily. Takes daily as needed - acetaminophen (TYLENOL) 325 mg tablet Take 650 mg by mouth every 6 hours as needed. Problem List As Of Date 01/30/2025 Noted Resolved Benign neoplasm of colon [D12.6] 09/30/2005 02/24/2020 DIVERTICULOSIS OF COLON W/O BLEED [K57.30] 09/30/2005 Internal hemorrhoids without mention of complic*09/30/2005 02/24/2020 CARPLANCE VICENTE (more content not included)... Normal [facility] 01-27-2025 [facility] Telephone ([facility]) MARY CRANE ([id number]) 1940 F TXT Date Time Provider Department 01/27/25 ATUL HARVEY [facility] During your visit today, we recorded the following information about you: Christel Wagner RN 01/27/2025 3:56 PM Signed Courtney with [facility] called in and reports Pt is discharging from [facility]. She states they have orders for PT/OT/SN and is asking if the provider will follow. She states they hope to start on Thursday. Please call and advise. Milana Armijo APRN.FELICIA 01/30/2025 11:13 AM Signed Yes, PCP team willing to follow. Thank you, Milana Armijo APRN.Christel Min, JOSE 01/30/2025 12:13 PM Signed Areli with [facility] called and is notified of providers message and instructions. She voices understanding. Christel Wagner RN Allergies As of Date: 01/27/2025 Noted Allergy Reaction FLOXIN (OFLOXACIN) 09/10/2005 10 - Anaphylaxis BUMEX (BUMETANIDE) 09/10/2005 5 - Intolerance HYDROCHLOROTHIAZIDE 09/10/2005 2 - Rash 5 - Intolerance Comments: leucocytoclastic vasculitis KEFLEX (CEPHALEXIN) 09/10/2005 2 - Rash NAPROXEN 09/10/2005 2 - Rash 4 - Hives NORVASC (AMLODIPINE BESYLATE) 09/10/2005 5 - Intolerance PENICILLINS 09/10/2005 5 - Intolerance Comments: Rash PROCTOSOL (HYDROCORTISONE ACETATE)09/10/2005 5 - Intolerance SULFA (SULFONAMIDE ANTIBIOTICS) 09/10/2005 2 - Rash 8 - GI Upset COLCHICINE 10/17/2005 4 - Hives MINOXIDIL 03/24/2011 14 - Other: See Comments Comments: facial hair Date Reviewed: 01/15/2025 Reviewed by: Deepika Amezcua RN - Fully Assessed Reason for Visit: Follow HH Orders [Other] Prescriptions as of 01/30/2025 - metoprolol tartrate, short acting, (LOPRESSOR) 50 mg tablet Take 1 tablet by mouth every 12 hours. - DULoxetine (CYMBALTA) 30 mg capsule Take 1 capsule by mouth once daily. - polyethylene glycol 3350 17 gram packet Take 1 packet by mouth two times a day. Dissolve dose in 4 - 8 ounces of liquid and take as directed. - senna-docusate (SENNA-S) 8.6-50 mg per tablet Take 1 tablet by mouth two times a day. - levothyroxine (LEVOXYL) 25 mcg tablet Take 1 tablet by mouth once daily. Take on empty stomach. For Thyroid - allopurinol (ZYLOPRIM) 100 mg tablet Take 1 tablet by mouth once daily. - furosemide (LASIX) 20 mg tablet Take 1 tablet by mouth once daily. - amiodarone (PACERONE) 200 mg tablet Take 1 tablet by mouth once daily. - apixaban (ELIQUIS) 5 mg tab(s) Take 1 tablet by mouth two times a day. - cholecalciferol, Vitamin D3, (VITAMIN D3) 1,250 mcg (50,000 unit) cap capsule Take 1 capsule by mouth one time a week. - potassium chloride ER (KLOR-CON M10) 10 mEq tablet Take 1 tablet by mouth two times a day. - rosuvastatin (CRESTOR) 10 mg tablet Take 1 tablet by mouth once daily. - nystatin (NYSTOP) powder Apply 1 application to affected area four times a day as needed. Yeast infection/rash in groin and under breasts - ketoconazole (NIZORAL) 2 % cream Apply to affected area two times a day. - folic acid 1 mg tablet Take 2 tablets by mouth once daily. - triamcinolone acetonide (KENALOG) 0.1 % cream Apply 1 application to affected area two times a day as needed (rash). Apply sparingly to area for rash/itching. - Cholecalciferol, Vitamin D3, 50 mcg (2,000 unit) cap Take 1 capsule by mouth once daily. - dicyclomine (BENTYL) 10 mg capsule Take 1 capsule by mouth before meals and at bedtime. For diarrhea or abdominal cramping - cyanocobalamin (VITAMIN B-12) 1,000 mcg tab Take 1,000 mcg by mouth every other day in the morning. - triamcinolone acetonide (KENALOG) 0.1 % cream Apply 1 application to affected area twice daily. On rash, Apply sparingly to area for rash/itching. - vit A/vit C/vit E/zinc/copper (OCUVITE PRESERVISION ORAL) Take by mouth twice daily. - apremilast (OTEZLA) 30 mg tablet Take 30 mg by mouth twice daily. - hydrocortisone probutate 0.1 % crea Apply to affected area once daily as needed. - loratadine (CLARITIN) 10 mg tablet Take 10 mg by mouth once daily. Takes daily as needed - acetaminophen (TYLENOL) 325 mg tablet Take 650 mg by mouth every 6 hours as needed. Problem List As Of Date 01/27/2025 Noted Resolved Benign neoplasm of colon [D12.6] 09/30/2005 02/24/2020 DIVERTICULOSIS OF COLON W/O BLEED [K57.30] 09/30/2005 Internal hemorrhoids without mention of complic*09/30/2005 02/24/2020 CARPAL TUNNEL SYNDROME [G56.00] 10/17/2005 03/12/2006 LOC PRIM OSTEOARTH-HAND [M19.049] 10/17/2005 Other tenosynovitis of hand and wrist [M65.849,*10/17/2005 02/24/2020 Follow-up examination, following unspecified lindsay*02/26/2006 02/08/2015 Rheumatoid arthritis involving multiple sites w*02/27/2006 CARPAL TUNNEL SYNDROME [G56.00] 03/17/2006 HYPERTENSION NOS [I10] 05/30/2014 Sicca syndrome (HCC) [M35.00] 11/29/2021 Sialoadenitis [K11.20] 09/04/2008 02/24/2020 Gout [M (more content not included)... Normal [facility] Anion gap in Serum or Plasma Ordered By: Tate Reynolds on 01-26-2025 Anion gap [Moles/Vol] 10 mmol/L - [facility] BUN/creatinine ratioOrdered By: Tate Reynolds on 01-26-2025 Urea nitrogen/Creatinine [Mass ratio] 9.6 mg/mg Low 10- [facility] CBC W/Diff, Automatedon 01-10 PATH REV Reviewed Normal [facility] Comment on above: Result Comment: SEE REPORT IN PATIENT'S EMR AMENDED REPORT 01/26/25 1408 PATH REV previously reported as: February Performed By: #### L 100.0100, L300.3900, L300.4310, L500.2500, L501.4021 #### [facility] [address] [place], [address] Carbon dioxide, total [Moles /volume] in Central venous bloodOrdered By: Tate Reynolds on 01-26-2025 CO2 [Moles/Vol] 25.5 mmol/L 21.0-32.0 [facility] Chloride assayOrdered By: Ran Reynolds on 01-26-2025 Chloride [Moles/Vol] 103 mmol/L 98-108 [facility] Glomerular filtration rate ( GFR) estimation/1.73 sq m using serum, plasma, or whole bOrdered By: Tate Reynolds on 01-26-2025 GFR/1.73 sq M.predicted among non-blacks MDRD (S/P/Bld) [Vol rate/Area] 71 mL/min/{1.73_m2} >60 [facility] Comment on above: mL/min/1.73m2 CKD-EP I Creatinine Equation (2020) Potassium measurement (mass/ volume)Ordered By: Tate Reynolds on 01-26-2025 Potassium (Unsp spec) [Mass/Vol] 3.4 mmol/L 3.3-5.1 [facility] Serum creatinine measurement (mass/volume)Ordered By: Tate Reynolds on 01-26-2025 Creatinine [Mass/Vol] 0.81 mg/dL 0.70-1.20 [facility] Serum glucose measurement (m ass/volume)Ordered By: Tate Reynolds on 01-26-2025 Glucose [Mass/Vol] 99 mg/dL 70-99 [facility] Serum or plasma calcium shell urement (mass/volume)Ordered By: Tate Reynolds on 01-26-2025 Calcium [Mass/Vol] 8.5 mg/dL 7.6-11.0 [facility] Serum or plasma urea nitroge n measurement (mass/volume)Ordered By: Tate Reynolds on 01-26-2025 Urea nitrogen [Mass/Vol] 8 mg/dL 4-19 [facility] Sodium levelOrdered By: Ranguillermo lala Brendenbarquentin on 01-26-2025 Sodium [Moles/Vol] 139 mmol/L 133-145 [facility] Absolute lymphocyte countOrd ered By: Tate Reynolds on 01-24-2025 Lymphocytes Auto (Unsp spec) [#/Vol] 2.38 10*3/uL 0.83-4.51 [facility] Absolute neutrophil countOrd ered By: Ranleslie Wilcoxbarquentin on 01-24-2025 Neutrophils (Bld) [#/Vol] 9.3 10*3/uL High 2.0-7.7 [facility] Anion gap in Serum or Plasma Ordered By: Tate Wilcoxbarquentin on 01-24-2025 Anion gap [Moles/Vol] 8 mmol/L 5-15 [facility] Automated lymphocyte count a s percentage of total leukocytesOrdered By: Tate Reynolds on 01-24-2025 Lymphocytes/100 WBC Auto (Unsp spec) 17.4 % Low 19-41 [facility] BUN/creatinine ratioOrdered By: Tate Reynolds on 01-24-2025 Urea nitrogen/Creatinine [Mass ratio] 10.5 mg/mg 10-20 [facility] Basophil percentageOrdered B y: Tate Reynolds on 01-24-2025 Basophils/100 WBC (Bld) 0.7 % 0-1 [facility] Carbon dioxide, total [Moles /volume] in Central venous bloodOrdered By: Tate Reynolds on 01-24-2025 CO2 [Moles/Vol] 26.2 mmol/L 21.0-32.0 [facility] Chloride assayOrdered By: Ran Reynolds on 01-24-2025 Chloride [Moles/Vol] 102 mmol/L 98-108 [facility] Eosinophil percentageOrdered By: Tate Reynolds on 01-24-2025 Eosinophils/100 WBC (Bld) 3.0 % 0-5 [facility] Erythrocyte distribution wid th ratioOrdered By: Tate Reynolds on 01-24-2025 Erythrocyte distribution width (RBC) [Ratio] 14.9 % High 11.6-14.6 [facility] Erythrocyte distribution wid th standard deviationOrdered By: Tate Reynolds on 01-24-2025 Erythrocyte distribution width (RBC) [Ratio] 50.2 fl High 35.1-43.9 [facility] Glomerular filtration rate ( GFR) estimation/1.73 sq m using serum, plasma, or whole bOrdered By: Tate Reynolds on 01-24-2025 GFR/1.73 sq M.predicted among non-blacks MDRD (S/P/Bld) [Vol rate/Area] 66 mL/min/{1.73_m2} >60 [facility] Comment on above: mL/min/1.73m2 CKD-EP I Creatinine Equation (2020) Hematocrit Auto (Bld) [Volum e fraction]Ordered By: Tate Reynolds on 01-24-2025 Hematocrit (Bld) [Volume fraction] 27.0 % Low 37-47 [facility] Hemoglobin measurementOrdere d By: Tate Reynolds on 01-24-2025 Hemoglobin (Bld) [Mass/Vol] 8.2 g/dL Low 12.0-15.0 [facility] Immature granulocytes/100 WB C Auto (Bld)Ordered By: Tate Reynolds on 01-24-2025 Immature granulocytes/100 WBC (Bld) 0.700 % 0.0-0.9 [facility] Comment on above: IG% - Immature Granu locytes (promyelocytes, myelocytes and metamyelocytes) > 1% indicates that a LEFT SHIFT is Present. MCV (mean corpuscular volume ) determinationOrdered By: Ttae Reynolds on 01-24-2025 MCV (RBC) [Entitic vol] 91.2 fL 81-99 [facility] Mean corpuscular hemoglobin (MCH) determinationOrdered By: Tate Reynolds on 01-24-2025 MCH (RBC) [Entitic mass] 27.7 pg 27.0-32.0 [facility] Mean corpuscular hemoglobin concentration (MCHC) determinationOrdered By: Tate Reynolds on 01-24-2025 MCHC (RBC) [Mass/Vol] 30.4 g/dL Low 32-36 [facility] Mean platelet volume determi nationOrdered By: Tate Reynolds on 01-24-2025 Platelet mean volume (Bld) [Entitic vol] 10.0 fL 6.2-12.0 [facility] Monocyte percentageOrdered B y: Tate Reynolds on 01-24-2025 Monocytes/100 WBC (Bld) 10.4 % High 0-10 [facility] Natriuretic peptide.B prohor naveen N-Terminal [Mass/volume] in Serum or PlasmaOrdered By: Tate Reynolds 01-24-2025 Natriuretic peptide.B prohormone N-Terminal [Mass/Vol] 2534 pg/mL High <1800 [facility] Comment on above: Heart Failure Unlike ly: < 300 pg/mLHeart Failure Likely< 50 Years: > 450 pg/mL50-75 Years: > 900 pg/mL>75 Years: > 1800 pg/mL Neutrophil percentageOrdered By: Tate Reynolds on 01-24-2025 Neutrophils/100 WBC (Bld) 67.8 % 47-70 [facility] Nucleated red blood cell per centageOrdered By: Tate Brendenyany on 01-24-2025 Nucleated RBC/100 WBC (Bld) [Ratio] 0 % 0-5 [facility] Platelet countOrdered By: Ran leslie Brendenyany on 01-24-2025 Platelets (Bld) [#/Vol] 575 10*3/uL High 150-450 [facility] Potassium measurement (mass/ volume)Ordered By: Jangermainkasey Wilcoxbarquentin on 01-24-2025 Potassium (Unsp spec) [Mass/Vol] 4.1 mmol/L 3.3-5.1 [facility] RBC Auto (Bld) [#/Vol]Ordere d By: Tate Brendenyany on 01-24-2025 RBC (Bld) [#/Vol] 2.96 10*6/uL Low 4.2-5.4 [facility] Serum creatinine measurement (mass/volume)Ordered By: Ranguillermogermainkasey Wilcoxbarquentin on 01-24-2025 Creatinine [Mass/Vol] 0.86 mg/dL 0.70-1.20 [facility] Serum glucose measurement (m ass/volume)Ordered By: Ranleslie Wilcoxbarquentin on 01-24-2025 Glucose [Mass/Vol] 91 mg/dL 70-99 [facility] Serum or plasma calcium shell urement (mass/volume)Ordered By: Ranguillermolala Brendenbarquentin 01-24-2025 Calcium [Mass/Vol] 8.6 mg/dL 7.6-11.0 [facility] Serum or plasma urea nitroge n measurement (mass/volume)Ordered By: Tate Wilcoxbarquentin 01-24-2025 Urea nitrogen [Mass/Vol] 9 mg/dL 4-19 [facility] Sodium levelOrdered By: Jan reeves Brendenbarquentin on 01-24-2025 Sodium [Moles/Vol] 137 mmol/L 133-145 [facility] White blood cell (WBC) count Ordered By: Ranguillermogermainkasey Wilcoxbarquentin 01-24-2025 WBC (Bld) [#/Vol] 13.7 10*3/uL High 4.4-11.0 [facility] Absolute lymphocyte countOrd ered By: Tate Reynolds on 01-18-2025 Lymphocytes Auto (Unsp spec) [#/Vol] 3.08 10*3/uL 0.83-4.51 [facility] Absolute neutrophil countOrd ered By: Tate Reynolds on 01-18-2025 Neutrophils (Bld) [#/Vol] 11.6 10*3/uL High 2.0-7.7 [facility] Anion gap in Serum or Plasma Ordered By: Tate Reynolds on 01-18-2025 Anion gap [Moles/Vol] 9 mmol/L 5-15 [facility] Automated lymphocyte count a s percentage of total leukocytesOrdered By: Tate Reynolds on 01-18-2025 Lymphocytes/100 WBC Auto (Unsp spec) 17.2 % Low 19-41 [facility] BUN/creatinine ratioOrdered By: Tate Reynolds on 01-18-2025 Urea nitrogen/Creatinine [Mass ratio] 14.2 mg/mg 10-20 [facility] Basophil percentageOrdered B y: Tate Reynolds on 01-18-2025 Basophils/100 WBC (Bld) 0.4 % 0-1 [facility] Bilirubin, totalOrdered By: Tate Reynolds on 01-18-2025 Bilirubin [Mass/Vol] 0.30 mg/dL 0.00-1.30 [facility] Calculated very low density lipoprotein (VLDL) cholesterol measurementOrdered By: Tate Reynolds on 01-18-2025 Calculated very low density lipoprotein (VLDL) cholesterol measurement 13 mg/dL 5-40 [facility] Carbon dioxide, total [Moles /volume] in Central venous bloodOrdered By: Tate Reynolds on 01-18-2025 CO2 [Moles/Vol] 24.6 mmol/L 21.0-32.0 [facility] Chloride assayOrdered By: Ran Reynolds on 01-18-2025 Chloride [Moles/Vol] 102 mmol/L 98-108 [facility] Eosinophil percentageOrdered By: Tate Reynolds on 01-18-2025 Eosinophils/100 WBC (Bld) 2.6 % 0-5 [facility] Erythrocyte distribution wid th ratioOrdered By: Tate Reynolds on 01-18-2025 Erythrocyte distribution width (RBC) [Ratio] 15.1 % High 11.6-14.6 [facility] Erythrocyte distribution wid th standard deviationOrdered By: leslie Reynolds on 01-18-2025 Erythrocyte distribution width (RBC) [Ratio] 50.2 fl High 35.1-43.9 [facility] Glomerular filtration rate ( GFR) estimation/1.73 sq m using serum, plasma, or whole bOrdered By: Tate Reynolds on 01-18-2025 GFR/1.73 sq M.predicted among non-blacks MDRD (S/P/Bld) [Vol rate/Area] 71 mL/min/{1.73_m2} >60 [facility] Comment on above: mL/min/1.73m2 CKD-EP I Creatinine Equation (2020) Hematocrit Auto (Bld) [Volum e fraction]Ordered By: Tate Reynolds on 01-18-2025 Hematocrit (Bld) [Volume fraction] 26.4 % Low 37-47 [facility] Hemoglobin measurementOrdere d By: Tate Reynolds on 01-18-2025 Hemoglobin (Bld) [Mass/Vol] 8.4 g/dL Low 12.0-15.0 [facility] Hypochromatic red blood cell detectionOrdered By: Tate Reynolds on 01-18-2025 Hypochromia Ql (Bld) 1+ [facility] Immature granulocytes/100 WB C Auto (Bld)Ordered By: leslie Reynolds on 01-18-2025 Immature granulocytes/100 WBC (Bld) 2.400 % High 0.0-0.9 [facility] Comment on above: IG% - Immature Granu locytes (promyelocytes, myelocytes and metamyelocytes) > 1% indicates that a LEFT SHIFT is Present. LDL calc ser/plasOrdered By: Tate Reynolds on 01-18-2025 Cholesterol in LDL [Mass/Vol] 19 mg/dL [facility] Comment on above: Otnoawyfap=471-855 m g/dL & Higher Psjp=793 mg/dL or greater Laboratory - Chemistry and C hemistry - challengeOrdered By: Tate Reynolds on 01-18-2025 AST [Catalytic activity/Vol] 21 U/L <32 [facility] Laboratory - Hematology and Cell countsOrdered By: Tate Reynolds on 01-18-2025 Anisocytosis Ql (Bld) 1+ [facility] MCV (mean corpuscular volume ) determinationOrdered By: Tate Reynolds on 01-18-2025 MCV (RBC) [Entitic vol] 90.7 fL 81-99 [facility] Mean corpuscular hemoglobin (MCH) determinationOrdered By: Tate Reynolds on 01-18-2025 MCH (RBC) [Entitic mass] 28.9 pg 27.0-32.0 [facility] Mean corpuscular hemoglobin concentration (MCHC) determinationOrdered By: Tate Reynolds on 01-18-2025 MCHC (RBC) [Mass/Vol] 31.8 g/dL Low 32-36 [facility] Mean platelet volume determi nationOrdered By: Tate Reynolds on 01-18-2025 Platelet mean volume (Bld) [Entitic vol] 10.0 fL 6.2-12.0 [facility] Monocyte percentageOrdered B y: Tate Reynolds on 01-18-2025 Monocytes/100 WBC (Bld) 12.6 % High 0-10 [facility] Neutrophil percentageOrdered By: Tate Reynolds on 01-18-2025 Neutrophils/100 WBC (Bld) 64.8 % 47-70 [facility] Nucleated red blood cell per centageOrdered By: Tate Reynolds on 01-18-2025 Nucleated RBC/100 WBC (Bld) [Ratio] 0.2 % 0-5 [facility] Platelet countOrdered By: Ran Reynolds on 01-18-2025 Platelets (Bld) [#/Vol] 715 10*3/uL High 150-450 [facility] Potassium measurement (mass/ volume)Ordered By: Tate Reynolds on 01-18-2025 Potassium (Unsp spec) [Mass/Vol] 3.7 mmol/L 3.3-5.1 [facility] RBC Auto (Bld) [#/Vol]Ordere d By: Tate Reynolds on 01-18-2025 RBC (Bld) [#/Vol] 2.91 10*6/uL Low 4.2-5.4 [facility] Review by pathologistOrdered By: Tate Reynolds on 01-18-2025 Pathologist review Cholo (Unsp spec) [Interp] N/A [facility] Comment on above: Previous reported re sult: Swetha lino Edited by: VALERIA on 01/23/25:2030 AMENDED REPORT 01/23/252030 PATH REV previously reported as: Swetha lino Screening total cholesterol/ high density lipoprotein (HDL) cholesterol ratioOrdered By: Tate Reynolds on 01-18-2025 Cholesterol.total/Choles terol in HDL [Mass ratio] 1.89 {ratio} [facility] Serum creatinine measurement (mass/volume)Ordered By: Tate Reynolds on 01-18-2025 Creatinine [Mass/Vol] 0.81 mg/dL 0.70-1.20 [facility] Serum globulin measurementOr dered By: Tate Reynolds on 01-18-2025 Globulin (S) [Mass/Vol] 3.1 g/dL 2.2-4.2 [facility] Serum glucose measurement (m ass/volume)Ordered By: Tate Reynolds on 01-18-2025 Glucose [Mass/Vol] 91 mg/dL 70-99 [facility] Serum or plasma alanine kirkland otransferase (ALT) measurementOrdered By: Tate Reynolds on 01-18-2025 ALT [Catalytic activity/Vol] 16 U/L <35 [facility] Serum or plasma albumin shell urement (mass/volume)Ordered By: Tate Reynolds on 01-18-2025 Albumin [Mass/Vol] 2.3 g/dL Low 3.4-4.8 [facility] Serum or plasma albumin/glob ulin mass ratioOrdered By: Tate Reynolds on 01-18-2025 Albumin/Globulin [Mass ratio] 0.8 {ratio} Low 0.9-2.4 [facility] Serum or plasma alkaline natalie sphatase measurementOrdered By: Tate Reynolds on 01-18-2025 ALP [Catalytic activity/Vol] 72 U/L 35-104 [facility] Serum or plasma calcium shell urement (mass/volume)Ordered By: Tate Reynolds 01-18-2025 Calcium [Mass/Vol] 8.1 mg/dL 7.6-11.0 [facility] Serum or plasma cholesterol in HDL measurement (mass/volume)Ordered By: Tate Reynolds 01-18-2025 Cholesterol in HDL [Mass/Vol] 37 mg/dL Low >40 [facility] Comment on above: National Cholesterol Education Program (NCEP) guidelines:<40 mg/dL: Low HDL-cholesterol (major risk factor for CHD)>= 60 mg/dL: High HDL-cholesterol (negative risk factor for CHD)HDL-cholesterol is affected by a number of factors, e.g. smoking, exercise, hormones, sex and age. Serum or plasma cholesterol measurement (mass/volume)Ordered By: Tate Reynolds 01-18-2025 Cholesterol [Mass/Vol] 70 mg/dL <[address] [facility] Comment on above: Cholesterol level, D esirable <200 mg/dLBorderline high cholesterol 200-239 mg/dLHigh cholesterol >=240 mg/dLRecommendations of the NCEP Adult Treatment Panel for the following risk-cutoff thresholds for the [place] population. Serum or plasma urea nitroge n measurement (mass/volume)Ordered By: Tate Reynolds 01-18-2025 Urea nitrogen [Mass/Vol] 12 mg/dL 4-19 [facility] Sodium levelOrdered By: Jan Reynolds 01-18-2025 Sodium [Moles/Vol] 135 mmol/L 133-145 [facility] TSH DL <= 0.005 mIU/L QnOrde red By: Tate Reynolds 01-18-2025 TSH Qn 6.430 uIU/mL High 0.300-4.200 [facility] Total proteinOrdered By: Marcelo kylerkasey Reynolds on 01-18-2025 Protein [Mass/Vol] 5.4 g/dL Low 5.9-8.4 [facility] Triglycerides measurementOrd ered By: Tate Reynolds on 01-18-2025 Triglyceride [Mass/Vol] 67 mg/dL <199 [facility] Comment on above: The drugs N-Acetylcy steine and Metamizole may falsely depress this assay. Normal range: <150 mg/dLBorderline High: 150-199 mg/dLHigh: 200-499 mg/dLVery High: >500 mg/dL Vitamin B12 ser/plasOrdered By: Tate Reynolds on 01-18-2025 Cobalamin (Vitamin B12) [Mass/Vol] 696 pg/mL 180-914 [facility] White blood cell (WBC) count Ordered By: Tate Reynolds on 01-18-2025 WBC (Bld) [#/Vol] 18.0 10*3/uL High 4.4-11.0 [facility] Basic metabolic 2000 panelon 01-17-2025 Anion gap [Moles/Vol] 9 mmol/L Normal 8-15 [facility] Comment on above: Order Comment: Speci men Type: BLOOD SPECIMENOrdering Facility: [facility] Address: [address] [place] [address] Performed By: #### 2 4321-2 ####[facility] LABORATORYCLIA [id number] [place] [address] [place] Calcium [Mass/Vol] 8.4 mg/dL Low 8.5-10.2 [facility] Comment on above: Order Comment: Speci men Type: BLOOD SPECIMENOrdering Facility: [facility] Address: [address] [place] [address] Performed By: #### 2 4321-2 ####[facility] LABORATORYCLIA [id number] [place] [address] [place] Chloride [Moles/Vol] 103 mmol/L Normal 98-107 [facility] Comment on above: Order Comment: Speci men Type: BLOOD SPECIMENOrdering Facility: [facility] Address: [address] [place] [address] Performed By: #### 2 4321-2 ####[facility] LABORATORYCLIA [id number] [address] STATES OF [facility] CO2 [Moles/Vol] 26 mmol/L Normal 22-30 [facility] Comment on above: Order Comment: Speci men Type: BLOOD SPECIMENOrdering Facility: [facility] Address: [address] [place] [address] Performed By: #### 2 4321-2 ####[facility] LABORATORYCLIA [id number] [address] STATES OF [facility] Creatinine [Mass/Vol] 0.94 mg/dL Normal 0.58-0.96 [facility] Comment on above: Order Comment: Speci men Type: BLOOD SPECIMENOrdering Facility: [facility] Address: [address] [place] [address] Performed By: #### 2 4321-2 ####[facility] LABORATORYCLIA [id number] [address] Creatinine and Glomerular filtration rate.predicted panel (S/P/Bld) 60 mL/min/1.73m??? Normal >=60 [facility] Comment on above: Order Comment: Speci men Type: BLOOD SPECIMENOrdering Facility: [facility] Address: [address] [place] [address] Result Comment: Ely mated Glomerular Filtration Rate (eGFR) is calculated using the 2020 CKD-EPI creatinine equation. This equation utilizes serum creatinine, sex, and age as parameters. The creatinine assay has traceable calibration to isotope dilution-mass spectrometry. Refer to KDIGO guidelines for clinical interpretation. In patients with unstable renal function, e.g. those with acute kidney injury, the eGFR may not accurately reflect actual GFR. Performed By: #### 2 4321-2 ####[facility] LABORATORYCLIA [id number] [address] [place] Glucose [Mass/Vol] 112 mg/dL High 74-99 [facility] Comment on above: Order Comment: Speci men Type: BLOOD SPECIMENOrdering Facility: [facility] Address: [address] [place] [address] Result Comment: The [place] Diabetes Association (ADA) provides guidance for cutoff values for fasting glucose and random glucose. The ADA defines fasting as no caloric intake for at least 8 hours. Fasting plasma glucose results between 100 to 125 mg/dL indicate increased risk for diabetes (prediabetes).Fasting plasma glucose results greater than or equal to 126 mg/dL meet the criteria for diagnosis of diabetes. In the absence of unequivocal hyperglycemia, results should be confirmed by repeat testing. In a patient with classic symptoms of hyperglycemia or hyperglycemic crisis, random plasma glucose results greater than or equal to 200 mg/dL meet the criteria for diagnosis of diabetes.Reference: Standards of Medical Care in Diabetes 2016, [place] [employer]. Diabetes Care. 2016.39(Suppl 1). Performed By: #### 2 4321-2 ####[facility] LABORATORYCLIA [id number] [place] [address] [place] Potassium [Moles/Vol] 4.0 mmol/L Normal 3.7-5.1 [facility] Comment on above: Order Comment: Speci men Type: BLOOD SPECIMENOrdering Facility: [facility] Address: [address] [place] [address] Performed By: #### 2 432-2 ####[facility] LABORATORYCLIA [id number] [place] [address] [place] Sodium [Moles/Vol] 138 mmol/L Normal 136-144 [facility] Comment on above: Order Comment: Speci men Type: BLOOD SPECIMENOrdering Facility: [facility] Address: [address] [place] [address] Performed By: #### 2 4321-2 ####[facility] LABORATORYCLIA [id number] [place] [address] [place] Urea nitrogen [Mass/Vol] 14 mg/dL Normal 7-21 [facility] Comment on above: Order Comment: Speci men Type: BLOOD SPECIMENOrdering Facility: [facility] Address: [address] [place] [address] Performed By: #### 2 4321-2 ####[facility] LABORATORYCLIA [id number] [place] [id number] [facility] [place] CASE MANAGEMon 01-17-2025 CASE MANAGEM Normal [facility] CASE MANAGEM Normal [facility] CBC panel Auto (Bld)on 01-17 Erythrocyte distribution width (RBC) [Ratio] 15.0 % Normal 11.5-15.0 [facility] Comment on above: Order Comment: Speci men Type: BLOOD SPECIMENOrdering Facility: [facility] Address: [address] [place] [address] Performed By: #### 5 8410-2 ####[facility] LABORATORYCLIA [id number] [address] Hematocrit (Bld) [Volume fraction] 30.4 % Low 36.0-46.0 [facility] Comment on above: Order Comment: Speci men Type: BLOOD SPECIMENOrdering Facility: [facility] Address: [address] [place] [address] Performed By: #### 5 8410-2 ####[facility] LABORATORYCLIA [id number] [address] STATES OF [facility] Hemoglobin (Bld) [Mass/Vol] 9.3 g/dL Low 11.5-15.5 [facility] Comment on above: Order Comment: Speci men Type: BLOOD SPECIMENOrdering Facility: [facility] Address: [address] [place] [address] Performed By: #### 5 8410-2 ####[facility] LABORATORYCLIA [id number] [address] [place] MCH (RBC) [Entitic mass] 28.4 pg Normal 26.0-34.0 [facility] Comment on above: Order Comment: Speci men Type: BLOOD SPECIMENOrdering Facility: [facility] Address: [address] [place] [address] Performed By: #### 5 8410-2 ####[facility] LABORATORYCLIA [id number] [address] [place] MCHC (RBC) [Mass/Vol] 30.6 g/dL Normal 30.5-36.0 [facility] Comment on above: Order Comment: Speci men Type: BLOOD SPECIMENOrdering Facility: [facility] Address: [address] [place] [address] Performed By: #### 5 8410-2 ####[facility] LABORATORYCLIA [id number] [address] [place] MCV (RBC) [Entitic vol] 93.0 fL Normal 80.0-100.[address] [facility] Comment on above: Order Comment: Speci men Type: BLOOD SPECIMENOrdering Facility: [facility] Address: [address] [place] [address] Performed By: #### 5 8410-2 ####[facility] LABORATORYCLIA [id number] [address] Nucleated RBC (Bld) [#/Vol] 0.03 10*3/uL High <0.01 [facility] Comment on above: Order Comment: Speci men Type: BLOOD SPECIMENOrdering Facility: [facility] Address: [address] [place] [address] Performed By: #### 5 8410-2 ####[facility] LABORATORYCLIA [id number] [address] Platelet mean volume (Bld) [Entitic vol] 9.5 fL Normal 9.0-12.7 [facility] Comment on above: Order Comment: Speci men Type: BLOOD SPECIMENOrdering Facility: [facility] Address: [address] [place] [address] Performed By: #### 5 8410-2 ####[facility] LABORATORYCLIA [id number] [address] [place] Platelets (Bld) [#/Vol] 801 10*3/uL High 150-400 [facility] Comment on above: Order Comment: Speci men Type: BLOOD SPECIMENOrdering Facility: [facility] Address: [address] [place] [address] Performed By: #### 5 8410-2 ####[facility] LABORATORYCLIA [id number] [address] OF [facility] RBC (Bld) [#/Vol] 3.27 10*6/uL Low 3.90-5.20 [facility] Comment on above: Order Comment: Speci men Type: BLOOD SPECIMENOrdering Facility: [facility] Address: [address] [place] [address] Performed By: #### 5 8410-2 ####[facility] LABORATORYCLIA [id number] [address] STATES OF [facility] WBC (Bld) [#/Vol] 16.08 10*3/uL High 3.70-11.00 [facility] Comment on above: Order Comment: Speci men Type: BLOOD SPECIMENOrdering Facility: [facility] Address: [address] [place] [address] Performed By: #### 5 8410-2 ####[facility] LABORATORYCLIA [id number] [address] [place] CNDSon 01-17-2025 CNDS Normal [facility] CNPNon 01-17-2025 CNPN Normal [facility] XR CHEST 2V FRONTAL/LATon XR CHEST 2V FRONTAL/LAT Normal A [facility] Basic metabolic 2000 panelon 01-16-2025 Anion gap [Moles/Vol] 9 mmol/L Normal 8-15 [facility] Comment on above: Order Comment: Speci men Type: BLOOD SPECIMENOrdering Facility: [facility] Address: [address] [place] [address] Performed By: #### 2 4321-2 ####[facility] LABORATORYCLIA [id number] [address] Calcium [Mass/Vol] 8.3 mg/dL Low 8.5-10.2 [facility] Comment on above: Order Comment: Speci men Type: BLOOD SPECIMENOrdering Facility: [facility] Address: [address] [place] [address] Performed By: #### 2 4321-2 ####[facility] LABORATORYCLIA [id number] [address] STATES OF [facility] Chloride [Moles/Vol] 105 mmol/L Normal 98-107 [facility] Comment on above: Order Comment: Speci men Type: BLOOD SPECIMENOrdering Facility: [facility] Address: [address] [place] [address] Performed By: #### 2 4321-2 ####[facility] LABORATORYCLIA [id number] [address] OF [facility] CO2 [Moles/Vol] 26 mmol/L Normal 22-30 [facility] Comment on above: Order Comment: Speci men Type: BLOOD SPECIMENOrdering Facility: [facility] Address: [address] [place] [address] Performed By: #### 2 4321-2 ####[facility] LABORATORYCLIA [id number] [address] Creatinine [Mass/Vol] 0.86 mg/dL Normal 0.58-0.96 [facility] Comment on above: Order Comment: Speci men Type: BLOOD SPECIMENOrdering Facility: [facility] Address: [address] [place] [address] Performed By: #### 2 4321-2 ####[facility] LABORATORYCLIA [id number] [address] Creatinine and Glomerular filtration rate.predicted panel (S/P/Bld) 66 mL/min/1.73m??? Normal >=60 [facility] Comment on above: Order Comment: Speci men Type: BLOOD SPECIMENOrdering Facility: [facility] Address: [address] [place] [address] Result Comment: Ely mated Glomerular Filtration Rate (eGFR) is calculated using the 2020 CKD-EPI creatinine equation. This equation utilizes serum creatinine, sex, and age as parameters. The creatinine assay has traceable calibration to isotope dilution-mass spectrometry. Refer to KDIGO guidelines for clinical interpretation. In patients with unstable renal function, e.g. those with acute kidney injury, the eGFR may not accurately reflect actual GFR. Performed By: #### 2 4321-2 ####[facility] LABORATORYCLIA [id number] [place] [address] [place] Glucose [Mass/Vol] 88 mg/dL Normal 74-99 [facility] Comment on above: Order Comment: Adelita geovanna Type: BLOOD SPECIMENOrdering Facility: [facility] Address: [address] [place] [address] Result Comment: The [place] Diabetes Association (ADA) provides guidance for cutoff values for fasting glucose and random glucose. The ADA defines fasting as no caloric intake for at least 8 hours. Fasting plasma glucose results between 100 to 125 mg/dL indicate increased risk for diabetes (prediabetes).Fasting plasma glucose results greater than or equal to 126 mg/dL meet the criteria for diagnosis of diabetes. In the absence of unequivocal hyperglycemia, results should be confirmed by repeat testing. In a patient with classic symptoms of hyperglycemia or hyperglycemic crisis, random plasma glucose results greater than or equal to 200 mg/dL meet the criteria for diagnosis of diabetes.Reference: Standards of Medical Care in Diabetes 2016, [place] [employer]. Diabetes Care. 2016.39(Suppl 1). Performed By: #### 2 4321-2 ####[facility] LABORATORYCLIA [id number] [place] [address] [place] Potassium [Moles/Vol] 3.9 mmol/L Normal 3.7-5.1 [facility] Comment on above: Order Comment: Adelita geovanna Type: BLOOD SPECIMENOrdering Facility: [facility] Address: [address] [place] [address] Performed By: #### 2 4321-2 ####[facility] LABORATORYCLIA [id number] [place] [id number] [place] Sodium [Moles/Vol] 140 mmol/L Normal 136-144 [facility] Comment on above: Order Comment: Adelita geovanna Type: BLOOD SPECIMENOrdering Facility: [facility] Address: [address] [place], [place] [id number] Performed By: #### 2 4321-2 ####[facility] LABORATORYCLIA [id number] [place] [address] [place] Urea nitrogen [Mass/Vol] 14 mg/dL Normal 7-21 [facility] Comment on above: Order Comment: Speci men Type: BLOOD SPECIMENOrdering Facility: [facility] Address: [address] [place] [address] Performed By: #### 2 4321-2 ####[facility] LABORATORYCLIA [id number] [place] [id number] [place] CASE MANAGEMon 01-16-2025 CASE MANAGEM Normal [facility] CASE MANAGEM Normal [facility] CBC panel Auto (Bld)on 01-16 Erythrocyte distribution width (RBC) [Ratio] 15.0 % Normal 11.5-15.0 [facility] Comment on above: Order Comment: Speci men Type: BLOOD SPECIMENOrdering Facility: [facility] Address: [address] [place] [address] Performed By: #### 5 8410-2 ####[facility] LABORATORYCLIA [id number] [address] [place] Hematocrit (Bld) [Volume fraction] 31.1 % Low 36.0-46.0 [facility] Comment on above: Order Comment: Speci men Type: BLOOD SPECIMENOrdering Facility: [facility] Address: [address] [place] [address] Performed By: #### 5 8410-2 ####[facility] LABORATORYCLIA [id number] [place] [address] [place] Hemoglobin (Bld) [Mass/Vol] 9.4 g/dL Low 11.5-15.5 [facility] Comment on above: Order Comment: Speci men Type: BLOOD SPECIMENOrdering Facility: [facility] Address: [address] [place] [address] Performed By: #### 5 8410-2 ####[facility] LABORATORYCLIA [id number] [place] [address] [place] MCH (RBC) [Entitic mass] 27.9 pg Normal 26.0-34.0 [facility] Comment on above: Order Comment: Speci men Type: BLOOD SPECIMENOrdering Facility: [facility] Address: [address] [place] [address] Performed By: #### 5 8410-2 ####[facility] LABORATORYCLIA [id number] [address] [place] [facility] MCHC (RBC) [Mass/Vol] 30.2 g/dL Low 30.5-36.0 [facility] Comment on above: Order Comment: Speci men Type: BLOOD SPECIMENOrdering Facility: [facility] Address: [address] [place] [address] Performed By: #### 5 8410-2 ####[facility] LABORATORYCLIA [id number] [address] MCV (RBC) [Entitic vol] 92.3 fL Normal 80.0-100.[address] [facility] Comment on above: Order Comment: Speci men Type: BLOOD SPECIMENOrdering Facility: [facility] Address: [address] [place] [address] Performed By: #### 5 8410-2 ####[facility] LABORATORYCLIA [id number] [address] Nucleated RBC (Bld) [#/Vol] 0.03 10*3/uL High <0.01 [facility] Comment on above: Order Comment: Speci men Type: BLOOD SPECIMENOrdering Facility: [facility] Address: [address] [place] [address] Performed By: #### 5 8410-2 ####[facility] LABORATORYCLIA [id number] [address] [facility] Platelet mean volume (Bld) [Entitic vol] 9.5 fL Normal 9.0-12.7 [facility] Comment on above: Order Comment: Speci men Type: BLOOD SPECIMENOrdering Facility: [facility] Address: [address] [place] [address] Performed By: #### 5 8410-2 ####[facility] LABORATORYCLIA [id number] [place], [place] [address] [place] [address] [place] Platelets (Bld) [#/Vol] 842 10*3/uL High 150-400 [facility] Comment on above: Order Comment: Speci men Type: BLOOD SPECIMENOrdering Facility: [facility] Address: [address] [place] [address] Performed By: #### 5 8410-2 ####[facility] LABORATORYCLIA [id number] [place] [address] [place] RBC (Bld) [#/Vol] 3.37 10*6/uL Low 3.90-5.20 [facility] Comment on above: Order Comment: Speci men Type: BLOOD SPECIMENOrdering Facility: [facility] Address: [address] [place] [address] Performed By: #### 5 8410-2 ####[facility] LABORATORYCLIA [id number] [address] STATES OF [facility] WBC (Bld) [#/Vol] 17.83 10*3/uL High 3.70-11.00 [facility] Comment on above: Order Comment: Speci men Type: BLOOD SPECIMENOrdering Facility: [facility] Address: [address] [place] [address] Performed By: #### 5 8410-2 ####[facility] LABORATORYCLIA [id number] [place] [address] [facility] [place] THERAPY NTon 01-16-2025 THERAPY NT Normal [facility] THERAPY NT Normal [facility] Basic metabolic 2000 panelon 01-15-2025 Anion gap [Moles/Vol] 4 mmol/L Low 8-15 [facility] Comment on above: Order Comment: Speci men Type: BLOOD SPECIMENOrdering Facility: [facility] Address: [address] [place] [address] Performed By: #### 2 4321-2 ####[facility] LABORATORYCLIA [id number] [place] [address] [place] Calcium [Mass/Vol] 8.3 mg/dL Low 8.5-10.2 [facility] Comment on above: Order Comment: Speci men Type: BLOOD SPECIMENOrdering Facility: [facility] Address: [address] [place] [address] Performed By: #### 2 4321-2 ####[facility] LABORATORYCLIA [id number] [address] [place] Chloride [Moles/Vol] 104 mmol/L Normal 98-107 [facility] Comment on above: Order Comment: Speci men Type: BLOOD SPECIMENOrdering Facility: [facility] Address: [address] [place] [address] Performed By: #### 2 4321-2 ####[facility] LABORATORYCLIA [id number] [address] [place] CO2 [Moles/Vol] 27 mmol/L Normal 22-30 [facility] Comment on above: Order Comment: Speci men Type: BLOOD SPECIMENOrdering Facility: [facility] Address: [address] [place] [address] Performed By: #### 2 4321-2 ####[facility] LABORATORYCLIA [id number] [address] [place] Creatinine [Mass/Vol] 0.89 mg/dL Normal 0.58-0.96 [facility] Comment on above: Order Comment: Speci men Type: BLOOD SPECIMENOrdering Facility: [facility] Address: [address] [place] [address] Performed By: #### 2 4321-2 ####[facility] LABORATORYCLIA [id number] [address] Creatinine and Glomerular filtration rate.predicted panel (S/P/Bld) 64 mL/min/1.73m??? Normal >=60 [facility] Comment on above: Order Comment: Speci men Type: BLOOD SPECIMENOrdering Facility: [facility] Address: [address] [place] [address] Result Comment: Ely mated Glomerular Filtration Rate (eGFR) is calculated using the 2020 CKD-EPI creatinine equation. This equation utilizes serum creatinine, sex, and age as parameters. The creatinine assay has traceable calibration to isotope dilution-mass spectrometry. Refer to KDIGO guidelines for clinical interpretation. In patients with unstable renal function, e.g. those with acute kidney injury, the eGFR may not accurately reflect actual GFR. Performed By: #### 2 4321-2 ####[facility] LABORATORYCLIA [id number] [place] [address] [place] Glucose [Mass/Vol] 77 mg/dL Normal 74-99 [facility] Comment on above: Order Comment: Speci men Type: BLOOD SPECIMENOrdering Facility: [facility] Address: [address] [place] [address] Result Comment: The [place] [employer] (ADA) provides guidance for cutoff values for fasting glucose and random glucose. The ADA defines fasting as no caloric intake for at least 8 hours. Fasting plasma glucose results between 100 to 125 mg/dL indicate increased risk for diabetes (prediabetes).Fasting plasma glucose results greater than or equal to 126 mg/dL meet the criteria for diagnosis of diabetes. In the absence of unequivocal hyperglycemia, results should be confirmed by repeat testing. In a patient with classic symptoms of hyperglycemia or hyperglycemic crisis, random plasma glucose results greater than or equal to 200 mg/dL meet the criteria for diagnosis of diabetes.Reference: Standards of Medical Care in Diabetes 2016, [place] [employer]. Diabetes Care. 2016.39(Suppl 1). Performed By: #### 2 4321-2 ####[facility] LABORATORYCLIA [id number] [place] [address] [place] Potassium [Moles/Vol] 4.3 mmol/L Normal 3.7-5.1 [facility] Comment on above: Order Comment: Speci men Type: BLOOD SPECIMENOrdering Facility: [facility] Address: [address] [place] [place] [id number] Performed By: #### 2 4321-2 ####[facility] LABORATORYCLIA [id number] [place] [id number] [place] Sodium [Moles/Vol] 135 mmol/L Low 136-144 [facility] Comment on above: Order Comment: Speci men Type: BLOOD SPECIMENOrdering Facility: [facility] Address: [address] [place] [address] Performed By: #### 2 4321-2 ####[facility] LABORATORYCLIA [id number] [place] [id number] [place] [facility] Urea nitrogen [Mass/Vol] 14 mg/dL Normal 7-21 [facility] Comment on above: Order Comment: Speci men Type: BLOOD SPECIMENOrdering Facility: [facility] Address: [address] [place] [address] Performed By: #### 2 4321-2 ####[facility] LABORATORYCLIA [id number] [address] [place] [facility] CBC panel Auto (Bld)on 01-15 Erythrocyte distribution width (RBC) [Ratio] 15.1 % High 11.5-15.0 [facility] Comment on above: Order Comment: Speci men Type: BLOOD SPECIMENOrdering Facility: [facility] Address: [address] [place] [address] Performed By: #### 5 8410-2 ####[facility] LABORATORYCLIA [id number] [address] STATES OF [facility] Hematocrit (Bld) [Volume fraction] 30.0 % Low 36.0-46.0 [facility] Comment on above: Order Comment: Speci men Type: BLOOD SPECIMENOrdering Facility: [facility] Address: [address] [place] [address] Performed By: #### 5 8410-2 ####[facility] LABORATORYCLIA [id number] [address] [facility] Hemoglobin (Bld) [Mass/Vol] 9.7 g/dL Low 11.5-15.5 [facility] Comment on above: Order Comment: Speci men Type: BLOOD SPECIMENOrdering Facility: [facility] Address: [address] [place] [address] Performed By: #### 5 8410-2 ####[facility] LABORATORYCLIA [id number] [address] [place] MCH (RBC) [Entitic mass] 29.0 pg Normal 26.0-34.0 [facility] Comment on above: Order Comment: Speci men Type: BLOOD SPECIMENOrdering Facility: [facility] Address: [address] [place] [address] Performed By: #### 5 8410-2 ####[facility]ORATORYCLIA [id number] [address] [place] [facility] MCHC (RBC) [Mass/Vol] 32.3 g/dL Normal 30.5-36.0 [facility] Comment on above: Order Comment: Speci men Type: BLOOD SPECIMENOrdering Facility: [facility] Address: [address] [place] [address] Performed By: #### 5 8410-2 ####[facility] LABORATORYCLIA [id number] [address] STATES OF [facility] MCV (RBC) [Entitic vol] 89.8 fL Normal 80.0-100.[address] [facility] Comment on above: Order Comment: Speci men Type: BLOOD SPECIMENOrdering Facility: [facility] Address: [address] [place] [address] Performed By: #### 5 8410-2 ####[facility] LABORATORYCLIA [id number] [address] Nucleated RBC (Bld) [#/Vol] 0.03 10*3/uL High <0.01 [facility] Comment on above: Order Comment: Speci men Type: BLOOD SPECIMENOrdering Facility: [facility] Address: [address] [place] [address] Performed By: #### 5 8410-2 ####[facility] LABORATORYCLIA [id number] [address] Platelet mean volume (Bld) [Entitic vol] 9.8 fL Normal 9.0-12.7 [facility] Comment on above: Order Comment: Speci men Type: BLOOD SPECIMENOrdering Facility: [facility] Address: [address] [place] [address] Performed By: #### 5 8410-2 ####[facility] LABORATORYCLIA [id number] [place] [address] [place] Platelets (Bld) [#/Vol] 727 10*3/uL High 150-400 [facility] Comment on above: Order Comment: Speci men Type: BLOOD SPECIMENOrdering Facility: [facility] Address: [address] [place] [address] Performed By: #### 5 8410-2 ####[facility] LABORATORYCLIA [id number] [place] [address] [place] RBC (Bld) [#/Vol] 3.34 10*6/uL Low 3.90-5.20 [facility] Comment on above: Order Comment: Speci men Type: BLOOD SPECIMENOrdering Facility: [facility] Address: [address] [place] [address] Performed By: #### 5 8410-2 ####[facility] LABORATORYCLIA [id number] [address] OF [facility] WBC (Bld) [#/Vol] 13.81 10*3/uL High 3.70-11.00 [facility] Comment on above: Order Comment: Speci men Type: BLOOD SPECIMENOrdering Facility: [facility] Address: [address] [place] [address] Performed By: #### 5 8410-2 ####[facility] LABORATORYCLIA [id number] [place] [id number] [facility] [place] THERAPY NTon 01-15-2025 THERAPY NT Normal [facility] Basic metabolic 2000 panelon 01-14-2025 Anion gap [Moles/Vol] 5 mmol/L Low 8-15 [facility] Comment on above: Order Comment: Speci men Type: BLOOD SPECIMENOrdering Facility: [facility] Address: [address] [place] [address] Performed By: #### 2 4321-2 ####[facility] LABORATORYCLIA [id number] [address] OF [facility] Calcium [Mass/Vol] 8.0 mg/dL Low 8.5-10.2 [facility] Comment on above: Order Comment: Speci men Type: BLOOD SPECIMENOrdering Facility: [facility] Address: [address] [place] [address] Performed By: #### 2 4321-2 ####[facility] LABORATORYCLIA [id number] [place] [address] [place] Chloride [Moles/Vol] 104 mmol/L Normal 98-107 [facility] Comment on above: Order Comment: Speci men Type: BLOOD SPECIMENOrdering Facility: [facility] Address: [address] [place] [address] Performed By: #### 2 4321-2 ####[facility] LABORATORYCLIA [id number] [place] [address] [place] CO2 [Moles/Vol] 28 mmol/L Normal 22-30 [facility] Comment on above: Order Comment: Speci men Type: BLOOD SPECIMENOrdering Facility: [facility] Address: [address] [place] [address] Performed By: #### 2 4321-2 ####[facility]ORATORYCLIA [id number] [address] [place] Creatinine [Mass/Vol] 0.77 mg/dL Normal 0.58-0.96 [facility] Comment on above: Order Comment: Speci men Type: BLOOD SPECIMENOrdering Facility: [facility] Address: [address] [place] [address] Performed By: #### 2 4321-2 ####[facility] LABORATORYCLIA [id number] [address] Creatinine and Glomerular filtration rate.predicted panel (S/P/Bld) 76 mL/min/1.73m??? Normal >=60 [facility] Comment on above: Order Comment: Speci men Type: BLOOD SPECIMENOrdering Facility: [facility] Address: [address] [place] [address] Result Comment: Ely mated Glomerular Filtration Rate (eGFR) is calculated using the 2020 CKD-EPI creatinine equation. This equation utilizes serum creatinine, sex, and age as parameters. The creatinine assay has traceable calibration to isotope dilution-mass spectrometry. Refer to KDIGO guidelines for clinical interpretation. In patients with unstable renal function, e.g. those with acute kidney injury, the eGFR may not accurately reflect actual GFR. Performed By: #### 2 4321-2 ####[facility] LABORATORYCLIA [id number] [place] [address] [place] Glucose [Mass/Vol] 92 mg/dL Normal 74-99 [facility] Comment on above: Order Comment: Speci men Type: BLOOD SPECIMENOrdering Facility: [facility] Address: [address] [place] [address] Result Comment: The [place] Diabetes [employer] (ADA) provides guidance for cutoff values for fasting glucose and random glucose. The ADA defines fasting as no caloric intake for at least 8 hours. Fasting plasma glucose results between 100 to 125 mg/dL indicate increased risk for diabetes (prediabetes).Fasting plasma glucose results greater than or equal to 126 mg/dL meet the criteria for diagnosis of diabetes. In the absence of unequivocal hyperglycemia, results should be confirmed by repeat testing. In a patient with classic symptoms of hyperglycemia or hyperglycemic crisis, random plasma glucose results greater than or equal to 200 mg/dL meet the criteria for diagnosis of diabetes.Reference: Standards of Medical Care in Diabetes 2016, [place] [employer]. Diabetes Care. 2016.39(Suppl 1). Performed By: #### 2 4321-2 ####[facility] LABORATORYCLIA [id number] [place] [address] [place] Potassium [Moles/Vol] 4.3 mmol/L Normal 3.7-5.1 [facility] Comment on above: Order Comment: Speci men Type: BLOOD SPECIMENOrdering Facility: [facility] Address: [address] [id number] Performed By: #### 2 4321-2 ####[facility] LABORATORYCLIA [id number] [place] [address] [place] Sodium [Moles/Vol] 137 mmol/L Normal 136-144 [facility] Comment on above: Order Comment: Speci men Type: BLOOD SPECIMENOrdering Facility: [facility] Address: [address] [place] [address] Performed By: #### 2 4321-2 ####[facility] LABORATORYCLIA [id number] [address] [facility] Urea nitrogen [Mass/Vol] 14 mg/dL Normal 7-21 [facility] Comment on above: Order Comment: Speci men Type: BLOOD SPECIMENOrdering Facility: [facility] Address: [address] [place] [address] Performed By: #### 2 4321-2 ####[facility] LABORATORYCLIA [id number] [address] CBC panel Auto (Bld)on 01-14 Erythrocyte distribution width (RBC) [Ratio] 14.8 % Normal 11.5-15.0 [facility] Comment on above: Order Comment: Speci men Type: BLOOD SPECIMENOrdering Facility: [facility] Address: [address] [place] [address] Performed By: #### 5 8410-2 ####[facility] LABORATORYCLIA [id number] [address] Hematocrit (Bld) [Volume fraction] 30.7 % Low 36.0-46.0 [facility] Comment on above: Order Comment: Speci men Type: BLOOD SPECIMENOrdering Facility: [facility] Address: [address] [place] [address] Performed By: #### 5 8410-2 ####[facility] LABORATORYCLIA [id number] [address] [facility] Hemoglobin (Bld) [Mass/Vol] 9.3 g/dL Low 11.5-15.5 [facility] Comment on above: Order Comment: Speci men Type: BLOOD SPECIMENOrdering Facility: [facility] Address: [address] [place] [address] Performed By: #### 5 8410-2 ####[facility] LABORATORYCLIA [id number] [address] MCH (RBC) [Entitic mass] 28.0 pg Normal 26.0-34.0 [facility] Comment on above: Order Comment: Speci men Type: BLOOD SPECIMENOrdering Facility: [facility] Address: [address] [place] [address] Performed By: #### 5 8410-2 ####[facility] LABORATORYCLIA [id number] [address] OF [facility] MCHC (RBC) [Mass/Vol] 30.3 g/dL Low 30.5-36.0 [facility] Comment on above: Order Comment: Speci men Type: BLOOD SPECIMENOrdering Facility: [facility] Address: [address] [place] [address] Performed By: #### 5 8410-2 ####[facility] LABORATORYCLIA [id number] [address] MCV (RBC) [Entitic vol] 92.5 fL Normal 80.0-100.[address] [facility] Comment on above: Order Comment: Speci men Type: BLOOD SPECIMENOrdering Facility: [facility] Address: [address] [place] [address] Performed By: #### 5 8410-2 ####[facility] LABORATORYCLIA [id number] [address] Nucleated RBC (Bld) [#/Vol] 0.04 10*3/uL High <0.01 [facility] Comment on above: Order Comment: Speci men Type: BLOOD SPECIMENOrdering Facility: [facility] Address: [address] [place] [address] Performed By: #### 5 8410-2 ####[facility] LABORATORYCLIA [id number] [address] Platelet mean volume (Bld) [Entitic vol] 9.9 fL Normal 9.0-12.7 [facility] Comment on above: Order Comment: Speci men Type: BLOOD SPECIMENOrdering Facility: [facility] Address: [address] [place] [address] Performed By: #### 5 8410-2 ####[facility] LABORATORYCLIA [id number] [place], [place] [id number] [place] [address] OF [facility] Platelets (Bld) [#/Vol] 705 10*3/uL High 150-400 [facility] Comment on above: Order Comment: Speci men Type: BLOOD SPECIMENOrdering Facility: [facility] Address: [address] [place] [address] Performed By: #### 5 8410-2 ####[facility] LABORATORYCLIA [id number] [address] [place] RBC (Bld) [#/Vol] 3.32 10*6/uL Low 3.90-5.20 [facility] Comment on above: Order Comment: Speci men Type: BLOOD SPECIMENOrdering Facility: [facility] Address: [address] [place] [address] Performed By: #### 5 8410-2 ####[facility] LABORATORYCLIA [id number] [address] WBC (Bld) [#/Vol] 12.15 10*3/uL High 3.70-11.00 [facility] Comment on above: Order Comment: Speci men Type: BLOOD SPECIMENOrdering Facility: [facility] Address: [address] [place] [address] Performed By: #### 5 8410-2 ####[facility] LABORATORYCLIA [id number] [address] [place] XR CHEST 1V FRONTALon 2024 XR CHEST 1V FRONTAL Normal [facility] ALLIED HEALTHon 01-13-2025 ALLIED HEALTH Normal [facility] Basic metabolic 2000 panelon 01-13-2025 Anion gap [Moles/Vol] 9 mmol/L Normal 8-15 [facility] Comment on above: Order Comment: Speci men Type: BLOOD SPECIMENOrdering Facility: [facility] Address: [address] [place] [address] Performed By: #### 2 4321-2 ####[facility] LABORATORYCLIA [id number] [place] [address] [place] Calcium [Mass/Vol] 8.0 mg/dL Low 8.5-10.2 [facility] Comment on above: Order Comment: Speci men Type: BLOOD SPECIMENOrdering Facility: [facility] Address: [address] [place] [address] Performed By: #### 2 4321-2 ####[facility] LABORATORYCLIA [id number] [place] [address] [place] Chloride [Moles/Vol] 103 mmol/L Normal 98-107 [facility] Comment on above: Order Comment: Speci men Type: BLOOD SPECIMENOrdering Facility: [facility] Address: [address] [place] [address] Performed By: #### 2 4321-2 ####[facility] LABORATORYCLIA [id number] [address] [place] CO2 [Moles/Vol] 25 mmol/L Normal 22-30 [facility] Comment on above: Order Comment: Speci men Type: BLOOD SPECIMENOrdering Facility: [facility] Address: [address] [place] [address] Performed By: #### 2 4321-2 ####[facility] LABORATORYCLIA [id number] [address] [place] Creatinine [Mass/Vol] 1.03 mg/dL High 0.58-0.96 [facility] Comment on above: Order Comment: Speci men Type: BLOOD SPECIMENOrdering Facility: [facility] Address: [address] [place] [address] Performed By: #### 2 4321-2 ####[facility] LABORATORYCLIA [id number] [address] Creatinine and Glomerular filtration rate.predicted panel (S/P/Bld) 53 mL/min/1.73m??? Low >=60 [facility] Comment on above: Order Comment: Speci men Type: BLOOD SPECIMENOrdering Facility: [facility] Address: [address] [place] [address] Result Comment: Ely mated Glomerular Filtration Rate (eGFR) is calculated using the 2020 CKD-EPI creatinine equation. This equation utilizes serum creatinine, sex, and age as parameters. The creatinine assay has traceable calibration to isotope dilution-mass spectrometry. Refer to KDIGO guidelines for clinical interpretation. In patients with unstable renal function, e.g. those with acute kidney injury, the eGFR may not accurately reflect actual GFR. Performed By: #### 2 4321-2 ####[facility] LABORATORYCLIA [id number] [place] [address] [place] Glucose [Mass/Vol] 85 mg/dL Normal 74-99 [facility] Comment on above: Order Comment: Adelita austin Type: BLOOD SPECIMENOrdering Facility: [facility] Address: [address] [place] [address] Result Comment: The [place] Diabetes Association (ADA) provides guidance for cutoff values for fasting glucose and random glucose. The ADA defines fasting as no caloric intake for at least 8 hours. Fasting plasma glucose results between 100 to 125 mg/dL indicate increased risk for diabetes (prediabetes).Fasting plasma glucose results greater than or equal to 126 mg/dL meet the criteria for diagnosis of diabetes. In the absence of unequivocal hyperglycemia, results should be confirmed by repeat testing. In a patient with classic symptoms of hyperglycemia or hyperglycemic crisis, random plasma glucose results greater than or equal to 200 mg/dL meet the criteria for diagnosis of diabetes.Reference: Standards of Medical Care in Diabetes 2016, [place] [employer]. Diabetes Care. 2016.39(Suppl 1). Performed By: #### 2 4321-2 ####[facility] LABORATORYCLIA [id number] [place] [address] [place] Potassium [Moles/Vol] 3.6 mmol/L Low 3.7-5.1 [facility] Comment on above: Order Comment: Adelita austin Type: BLOOD SPECIMENOrdering Facility: [facility] Address: [address] [place] [id number] Performed By: #### 2 4321-2 ####[facility] LABORATORYCLIA [id number] [place] [id number] [place] Sodium [Moles/Vol] 137 mmol/L Normal 136-144 [facility] Comment on above: Order Comment: Speci men Type: BLOOD SPECIMENOrdering Facility: [facility] Address: [address] [place] [address] Performed By: #### 2 4321-2 ####[facility] LABORATORYCLIA [id number] [address] [place] Urea nitrogen [Mass/Vol] 17 mg/dL Normal 7-21 [facility] Comment on above: Order Comment: Speci men Type: BLOOD SPECIMENOrdering Facility: [facility] Address: [address] [place] [address] Performed By: #### 2 4321-2 ####[facility] LABORATORYCLIA [id number] [address] [place] CASE MANAGEMon 01-13-2025 CASE MANAGEM Normal [facility] CBC panel Auto (Bld)on 01-13 Erythrocyte distribution width (RBC) [Ratio] 14.6 % Normal 11.5-15.0 [facility] Comment on above: Order Comment: Speci men Type: BLOOD SPECIMENOrdering Facility: [facility] Address: [address] [place] [address] Performed By: #### 5 8410-2 ####[facility] LABORATORYCLIA [id number] [address] [place] Hematocrit (Bld) [Volume fraction] 30.5 % Low 36.0-46.0 [facility] Comment on above: Order Comment: Speci men Type: BLOOD SPECIMENOrdering Facility: [facility] Address: [address] [place] [address] Performed By: #### 5 8410-2 ####[facility] LABORATORYCLIA [id number] [place] [address] [place] Hemoglobin (Bld) [Mass/Vol] 9.6 g/dL Low 11.5-15.5 [facility] Comment on above: Order Comment: Speci men Type: BLOOD SPECIMENOrdering Facility: [facility] Address: [address] [place] [address] Performed By: #### 5 8410-2 ####[facility] LABORATORYCLIA [id number] [address] MCH (RBC) [Entitic mass] 28.4 pg Normal 26.0-34.0 [facility] Comment on above: Order Comment: Speci men Type: BLOOD SPECIMENOrdering Facility: [facility] Address: [address] [place] [address] Performed By: #### 5 8410-2 ####[facility] LABORATORYCLIA [id number] [address] MCHC (RBC) [Mass/Vol] 31.5 g/dL Normal 30.5-36.0 [facility] Comment on above: Order Comment: Speci men Type: BLOOD SPECIMENOrdering Facility: [facility] Address: [address] [place] [address] Performed By: #### 5 8410-2 ####[facility] LABORATORYCLIA [id number] [address] MCV (RBC) [Entitic vol] 90.2 fL Normal 80.0-100.[address] [facility] Comment on above: Order Comment: Speci men Type: BLOOD SPECIMENOrdering Facility: [facility] Address: [address] [place] [address] Performed By: #### 5 8410-2 ####[facility] LABORATORYCLIA [id number] [address] Nucleated RBC (Bld) [#/Vol] 0.05 10*3/uL High <0.01 [facility] Comment on above: Order Comment: Speci men Type: BLOOD SPECIMENOrdering Facility: [facility] Address: [address] [place] [address] Performed By: #### 5 8410-2 ####[facility] LABORATORYCLIA [id number] [address] Platelet mean volume (Bld) [Entitic vol] 9.9 fL Normal 9.0-12.7 [facility] Comment on above: Order Comment: Speci men Type: BLOOD SPECIMENOrdering Facility: [facility] Address: [address] [place] [address] Performed By: #### 5 8410-2 ####[facility] LABORATORYCLIA [id number] [address] [place] Platelets (Bld) [#/Vol] 597 10*3/uL High 150-400 [facility] Comment on above: Order Comment: Speci men Type: BLOOD SPECIMENOrdering Facility: [facility] Address: [address] [place] [address] Performed By: #### 5 8410-2 ####[facility] LABORATORYCLIA [id number] [place] [address] [place] RBC (Bld) [#/Vol] 3.38 10*6/uL Low 3.90-5.20 [facility] Comment on above: Order Comment: Speci men Type: BLOOD SPECIMENOrdering Facility: [facility] Address: [address] [place] [address] Performed By: #### 5 8410-2 ####[facility] LABORATORYCLIA [id number] [address] [place] WBC (Bld) [#/Vol] 11.87 10*3/uL High 3.70-11.00 [facility] Comment on above: Order Comment: Speci men Type: BLOOD SPECIMENOrdering Facility: [facility] Address: [address] [place] [address] Performed By: #### 5 8410-2 ####[facility] LABORATORYCLIA [id number] [address] [place] NUTRITIONon 01-13-2025 NUTRITION Normal [facility] XR CHEST 1V FRONTALon 2024 XR CHEST 1V FRONTAL Normal [facility] ALLIED HEALTHon 01-12-2025 ALLIED HEALTH Normal [facility] Basic metabolic 2000 panelon 01-12-2025 Anion gap [Moles/Vol] 10 mmol/L Normal 8-15 [facility] Comment on above: Order Comment: Speci men Type: BLOOD SPECIMENOrdering Facility: [facility] Address: [address] [place] [address] Performed By: #### 2 4321-2 ####[facility] LABORATORYCLIA [id number] [place] [address] [place] Calcium [Mass/Vol] 8.0 mg/dL Low 8.5-10.2 [facility] Comment on above: Order Comment: Speci men Type: BLOOD SPECIMENOrdering Facility: [facility] Address: [address] [place] [address] Performed By: #### 2 4321-2 ####[facility] LABORATORYCLIA [id number] [place] [address] [place] Chloride [Moles/Vol] 100 mmol/L Normal 98-107 [facility] Comment on above: Order Comment: Speci men Type: BLOOD SPECIMENOrdering Facility: [facility] Address: [address] [place] [address] Performed By: #### 2 4321-2 ####[facility] LABORATORYCLIA [id number] [place] [address] [place] CO2 [Moles/Vol] 23 mmol/L Normal 22-30 [facility] Comment on above: Order Comment: Speci men Type: BLOOD SPECIMENOrdering Facility: [facility] Address: [address] [place] [address] Performed By: #### 2 4321-2 ####[facility] LABORATORYCLIA [id number] [place] [address] [place] Creatinine [Mass/Vol] 1.07 mg/dL High 0.58-0.96 [facility] Comment on above: Order Comment: Speci men Type: BLOOD SPECIMENOrdering Facility: [facility] Address: [address] [place] [address] Performed By: #### 2 4321-2 ####[facility]ORATORYCLIA [id number] [place] [address] [place] Creatinine and Glomerular filtration rate.predicted panel (S/P/Bld) 51 mL/min/1.73m??? Low >=60 [facility] Comment on above: Order Comment: Adelita austin Type: BLOOD SPECIMENOrdering Facility: [facility] Address: [address] [place] [address] Result Comment: Ely mated Glomerular Filtration Rate (eGFR) is calculated using the 2020 CKD-EPI creatinine equation. This equation utilizes serum creatinine, sex, and age as parameters. The creatinine assay has traceable calibration to isotope dilution-mass spectrometry. Refer to KDIGO guidelines for clinical interpretation. In patients with unstable renal function, e.g. those with acute kidney injury, the eGFR may not accurately reflect actual GFR. Performed By: #### 2 4321-2 ####[facility] LABORATORYCLIA [id number] [place] [address] [place] Glucose [Mass/Vol] 94 mg/dL Normal 74-99 [facility] Comment on above: Order Comment: Adelita austin Type: BLOOD SPECIMENOrdering Facility: [facility] Address: [address] [place] [address] Result Comment: The [place] Diabetes Association (ADA) provides guidance for cutoff values for fasting glucose and random glucose. The ADA defines fasting as no caloric intake for at least 8 hours. Fasting plasma glucose results between 100 to 125 mg/dL indicate increased risk for diabetes (prediabetes).Fasting plasma glucose results greater than or equal to 126 mg/dL meet the criteria for diagnosis of diabetes. In the absence of unequivocal hyperglycemia, results should be confirmed by repeat testing. In a patient with classic symptoms of hyperglycemia or hyperglycemic crisis, random plasma glucose results greater than or equal to 200 mg/dL meet the criteria for diagnosis of diabetes.Reference: Standards of Medical Care in Diabetes 2016, [place] [employer]. Diabetes Care. 2016.39(Suppl 1). Performed By: #### 2 4321-2 ####[facility] LABORATORYCLIA [id number] [place] [id number] [place] Potassium [Moles/Vol] 4.1 mmol/L Normal 3.7-5.1 [facility] Comment on above: Order Comment: Adelita austin Type: BLOOD SPECIMENOrdering Facility: [facility] Address: [address] [place] [address] Performed By: #### 2 4321-2 ####[facility] LABORATORYCLIA [id number] [place] [id number] [facility] Sodium [Moles/Vol] 133 mmol/L Low 136-144 [facility] Comment on above: Order Comment: Speci men Type: BLOOD SPECIMENOrdering Facility: [facility] Address: [address] [place] [address] Performed By: #### 2 4321-2 ####[facility] LABORATORYCLIA [id number] [address] [place] Urea nitrogen [Mass/Vol] 16 mg/dL Normal 7-21 [facility] Comment on above: Order Comment: Speci men Type: BLOOD SPECIMENOrdering Facility: [facility] Address: [address] [place] [address] Performed By: #### 2 4321-2 ####[facility] LABORATORYCLIA [id number] [address] [place] CASE MANAGEMon 01-12-2025 CASE MANAGEM Normal [facility] CASE MANAGEM Normal [facility] CBC panel Auto (Bld)on 01-12 Erythrocyte distribution width (RBC) [Ratio] 14.5 % Normal 11.5-15.0 [facility] Comment on above: Order Comment: Speci men Type: BLOOD SPECIMENOrdering Facility: [facility] Address: [address] [place] [address] Performed By: #### 5 8410-2 ####[facility] LABORATORYCLIA [id number] [address] [place] Hematocrit (Bld) [Volume fraction] 33.1 % Low 36.0-46.0 [facility] Comment on above: Order Comment: Speci men Type: BLOOD SPECIMENOrdering Facility: [facility] Address: [address] [place] [address] Performed By: #### 5 8410-2 ####[facility] LABORATORYCLIA [id number] [address] Hemoglobin (Bld) [Mass/Vol] 10.4 g/dL Low 11.5-15.5 [facility] Comment on above: Order Comment: Speci men Type: BLOOD SPECIMENOrdering Facility: [facility] Address: [address] [place] [address] Performed By: #### 5 8410-2 ####[facility] LABORATORYCLIA [id number] [address] MCH (RBC) [Entitic mass] 28.5 pg Normal 26.0-34.0 [facility] Comment on above: Order Comment: Speci men Type: BLOOD SPECIMENOrdering Facility: [facility] Address: [address] [place] [address] Performed By: #### 5 8410-2 ####[facility] LABORATORYCLIA [id number] [address] MCHC (RBC) [Mass/Vol] 31.4 g/dL Normal 30.5-36.0 [facility] Comment on above: Order Comment: Speci men Type: BLOOD SPECIMENOrdering Facility: [facility] Address: [address] [place] [address] Performed By: #### 5 8410-2 ####[facility] LABORATORYCLIA [id number] [address] MCV (RBC) [Entitic vol] 90.7 fL Normal 80.0-100.[address] [facility] Comment on above: Order Comment: Speci men Type: BLOOD SPECIMENOrdering Facility: [facility] Address: [address] [place] [address] Performed By: #### 5 8410-2 ####[facility] LABORATORYCLIA [id number] [address] Nucleated RBC (Bld) [#/Vol] 0.09 10*3/uL High <0.01 [facility] Comment on above: Order Comment: Speci men Type: BLOOD SPECIMENOrdering Facility: [facility] Address: [address] [place] [address] Performed By: #### 5 8410-2 ####[facility] LABORATORYCLIA [id number] [address] [place] Platelet mean volume (Bld) [Entitic vol] 10.1 fL Normal 9.0-12.7 [facility] Comment on above: Order Comment: Speci men Type: BLOOD SPECIMENOrdering Facility: [facility] Address: [address] [place] [address] Performed By: #### 5 8410-2 ####[facility] LABORATORYCLIA [id number] [address] [place] Platelets (Bld) [#/Vol] 559 10*3/uL High 150-400 [facility] Comment on above: Order Comment: Speci men Type: BLOOD SPECIMENOrdering Facility: [facility] Address: [address] [place] [address] Performed By: #### 5 8410-2 ####[facility] LABORATORYCLIA [id number] [address] [place] RBC (Bld) [#/Vol] 3.65 10*6/uL Low 3.90-5.20 [facility] Comment on above: Order Comment: Speci men Type: BLOOD SPECIMENOrdering Facility: [facility] Address: [address] [place] [address] Performed By: #### 5 8410-2 ####[facility] LABORATORYCLIA [id number] [address] [place] WBC (Bld) [#/Vol] 9.06 10*3/uL Normal 3.70-11.00 [facility] Comment on above: Order Comment: Speci men Type: BLOOD SPECIMENOrdering Facility: [facility] Address: [address] [place] [address] Performed By: #### 5 8410-2 ####[facility] LABORATORYCLIA [id number] [address] [place] XR CHEST 1V FRONTALon 2024 XR CHEST 1V FRONTAL Normal [facility] XR CHEST 2V FRONTAL/LATon XR CHEST 2V FRONTAL/LAT Normal [facility] ALLIED HEALTHon 01-11-2025 ALLIED HEALTH Normal [facility] Basic metabolic 2000 panelon 01-11-2025 Anion gap [Moles/Vol] 8 mmol/L Normal 8-15 [facility] Comment on above: Order Comment: Speci men Type: BLOOD SPECIMENOrdering Facility: [facility] Address: [address] [place] [address] Performed By: #### 2 4321-2 ####[facility] LABORATORYCLIA [id number] [place] [address] [place] Calcium [Mass/Vol] 8.1 mg/dL Low 8.5-10.2 [facility] Comment on above: Order Comment: Speci men Type: BLOOD SPECIMENOrdering Facility: [facility] Address: [address] [place] [address] Performed By: #### 2 4321-2 ####[facility] LABORATORYCLIA [id number] [place] [address] [place] Chloride [Moles/Vol] 99 mmol/L Normal 98-107 [facility] Comment on above: Order Comment: Speci men Type: BLOOD SPECIMENOrdering Facility: [facility] Address: [address] [place] [address] Performed By: #### 2 4321-2 ####[facility]ATORYCLIA [id number] [place] [address] [place] CO2 [Moles/Vol] 24 mmol/L Normal 22-30 [facility] Comment on above: Order Comment: Speci men Type: BLOOD SPECIMENOrdering Facility: [facility] Address: [address] [place] [address] Performed By: #### 2 4321-2 ####[facility] LABORATORYCLIA [id number] [place] [address] [place] Creatinine [Mass/Vol] 1.08 mg/dL High 0.58-0.96 [facility] Comment on above: Order Comment: Javadbenjamin austin Type: BLOOD SPECIMENOrdering Facility: [facility] Address: [address] [place] [address] Performed By: #### 2 4321-2 ####[facility] LABORATORYCLIA [id number] [address] [place] Creatinine and Glomerular filtration rate.predicted panel (S/P/Bld) 50 mL/min/1.73m??? Low >=60 [facility] Comment on above: Order Comment: Adelita austin Type: BLOOD SPECIMENOrdering Facility: [facility] Address: [address] [place] [address] Result Comment: Ely mated Glomerular Filtration Rate (eGFR) is calculated using the 2020 CKD-EPI creatinine equation. This equation utilizes serum creatinine, sex, and age as parameters. The creatinine assay has traceable calibration to isotope dilution-mass spectrometry. Refer to KDIGO guidelines for clinical interpretation. In patients with unstable renal function, e.g. those with acute kidney injury, the eGFR may not accurately reflect actual GFR. Performed By: #### 2 4321-2 ####[facility] LABORATORYCLIA [id number] [place] [address] [place] Glucose [Mass/Vol] 89 mg/dL Normal 74-99 [facility] Comment on above: Order Comment: Adelita geovanna Type: BLOOD SPECIMENOrdering Facility: [facility] Address: [address] [place] [address] Result Comment: The [place] Diabetes Association (ADA) provides guidance for cutoff values for fasting glucose and random glucose. The ADA defines fasting as no caloric intake for at least 8 hours. Fasting plasma glucose results between 100 to 125 mg/dL indicate increased risk for diabetes (prediabetes).Fasting plasma glucose results greater than or equal to 126 mg/dL meet the criteria for diagnosis of diabetes. In the absence of unequivocal hyperglycemia, results should be confirmed by repeat testing. In a patient with classic symptoms of hyperglycemia or hyperglycemic crisis, random plasma glucose results greater than or equal to 200 mg/dL meet the criteria for diagnosis of diabetes.Reference: Standards of Medical Care in Diabetes 2016, [place] [employer]. Diabetes Care. 2016.39(Suppl 1). Performed By: #### 2 4321-2 ####[facility] LABORATORYCLIA [id number] [address] STATES OF [facility] Potassium [Moles/Vol] Normal [facility] Comment on above: Order Comment: Speci men Type: BLOOD SPECIMENOrdering Facility: [facility] Address: [address] [place] [address] Result Comment: Unab le to assay due to interference from hemolysis. Suggest reorder as clinically indicated. Performed By: #### 2 4321-2 ####[facility]ORATORYCLIA [id number] [address] [place] Sodium [Moles/Vol] 131 mmol/L Low 136-144 [facility] Comment on above: Order Comment: Speci men Type: BLOOD SPECIMENOrdering Facility: [facility] Address: [address] [place] [address] Performed By: #### 2 4321-2 ####[facility] LABORATORYCLIA [id number] [address] STATES [facility] Urea nitrogen [Mass/Vol] 16 mg/dL Normal 7-21 [facility] Comment on above: Order Comment: Speci men Type: BLOOD SPECIMENOrdering Facility: [facility] Address: [address] [place] [address] Performed By: #### 2 4321-2 ####[facility] LABORATORYCLIA [id number] [address] CASE MANAGEMon 01-11-2025 CASE MANAGEM Normal [facility] CASE MANAGEM Normal [facility] CBC panel Auto (Bld)on 01-11 Erythrocyte distribution width (RBC) [Ratio] 14.5 % Normal 11.5-15.0 [facility] Comment on above: Order Comment: Speci men Type: BLOOD SPECIMENOrdering Facility: [facility] Address: [address] [place] [address] Performed By: #### 5 8410-2 ####[facility] LABORATORYCLIA [id number] [address] [place] Hematocrit (Bld) [Volume fraction] 32.2 % Low 36.0-46.0 [facility] Comment on above: Order Comment: Speci men Type: BLOOD SPECIMENOrdering Facility: [facility] Address: [address] [place] [address] Performed By: #### 5 8410-2 ####[facility] LABORATORYCLIA [id number] [address] OF [facility] Hemoglobin (Bld) [Mass/Vol] 10.3 g/dL Low 11.5-15.5 [facility] Comment on above: Order Comment: Speci men Type: BLOOD SPECIMENOrdering Facility: [facility] Address: [address] [place] [address] Performed By: #### 5 8410-2 ####[facility] LABORATORYCLIA [id number] [address] MCH (RBC) [Entitic mass] 28.9 pg Normal 26.0-34.0 [facility] Comment on above: Order Comment: Speci men Type: BLOOD SPECIMENOrdering Facility: [facility] Address: [address] [place] [address] Performed By: #### 5 8410-2 ####[facility] LABORATORYCLIA [id number] [address] [place] MCHC (RBC) [Mass/Vol] 32.0 g/dL Normal 30.5-36.0 [facility] Comment on above: Order Comment: Speci men Type: BLOOD SPECIMENOrdering Facility: [facility] Address: [address] [place] [address] Performed By: #### 5 8410-2 ####[facility] LABORATORYCLIA [id number] [address] MCV (RBC) [Entitic vol] 90.4 fL Normal 80.0-100.0 [facility] Comment on above: Order Comment: Speci men Type: BLOOD SPECIMENOrdering Facility: [facility] Address: [address] [place] [address] Performed By: #### 5 8410-2 ####[facility] LABORATORYCLIA [id number] [place] [address] [place] Nucleated RBC (Bld) [#/Vol] 0.14 10*3/uL High <0.01 [facility] Comment on above: Order Comment: Speci men Type: BLOOD SPECIMENOrdering Facility: [facility] Address: [address] [place] [address] Performed By: #### 5 8410-2 ####[facility] LABORATORYCLIA [id number] [address] [place] Platelet mean volume (Bld) [Entitic vol] 10.2 fL Normal 9.0-12.7 [facility] Comment on above: Order Comment: Speci men Type: BLOOD SPECIMENOrdering Facility: [facility] Address: [address] [place] [address] Performed By: #### 5 8410-2 ####[facility] LABORATORYCLIA [id number] [address] [place] Platelets (Bld) [#/Vol] 442 10*3/uL High 150-400 [facility] Comment on above: Order Comment: Speci men Type: BLOOD SPECIMENOrdering Facility: [facility] Address: [address] [place] [address] Performed By: #### 5 8410-2 ####[facility] LABORATORYCLIA [id number] [place] [address] [place] RBC (Bld) [#/Vol] 3.56 10*6/uL Low 3.90-5.20 [facility] Comment on above: Order Comment: Speci men Type: BLOOD SPECIMENOrdering Facility: [facility] Address: [address] [place] [address] Performed By: #### 5 8410-2 ####[facility] LABORATORYCLIA [id number] [place] [address] [place] WBC (Bld) [#/Vol] 8.05 10*3/uL Normal 3.70-11.00 [facility] Comment on above: Order Comment: Speci men Type: BLOOD SPECIMENOrdering Facility: [facility] Address: [address] [place] [address] Performed By: #### 5 8410-2 ####[facility] LABORATORYCLIA [id number] [address] [place] POTASSIUMon 01-11-2025 Potassium [Moles/Vol] 3.9 mmol/L Normal 3.7-5.1 [facility] Comment on above: Order Comment: Speci men Type: BLOOD SPECIMENOrdering Facility: [facility] Address: [address] [place] [address] Performed By: #### K 1 ####[facility] LABORATORYCLIA [id number] [address] THERAPY NTon 01-11-2025 THERAPY NT Normal [facility] XR CHEST 1V FRONTALon 2024 XR CHEST 1V FRONTAL Normal [facility] 25(OH)D3 SerPl-mCncon 2024 25-hydroxyvitamin D3 [Mass/Vol] 44.6 ng/mL Normal >=30.0 [facility] Comment on above: Order Comment: Speci men Type: BLOOD SPECIMENOrdering Facility: [facility] Address: [address] [place] [address] Result Comment: Clas sification of 25 [place] Vitamin D status:Deficiency: <= 20.0 ng/ml.Insufficiency: 21.0-29.0 ng/ml.Sufficiency: >= 30.0 ng/ml. Performed By: #### 1 989-3 ####[facility] LABORATORYCLIA [id number] [address] [place] Amylase (Body fld) [Catalyti c activity/Vol]on 01-10-2025 Fluid Nom (Body fld) Abdomen Normal [facility] Comment on above: Order Comment: Speci men Type: FLUID SPECIMENOrdering Facility: [facility] Address: [address] [place] [address] Result Comment: DWAINE d rain Performed By: #### 1 795-4 ####[facility] LABORATORYCLIA [id number] [place] [address] [place] Amylase Fld-cCncon 5 Amylase (Body fld) [Catalytic activity/Vol] 19 U/L Normal See Comment [facility] Comment on above: Order Comment: Speci men Type: FLUID SPECIMENOrdering Facility: [facility] Address: [facility] [place][note 2] [place] [address] Result Comment: PLEU RAL FLUIDS:Amylase measurement in pleural fluid is considered a useful test for detecting amylase-rich pleural effusions, which may be caused by exudative conditions associated with pancreatitis, esophageal rupture, malignancy, pneumonia, and liver cirrhosis. A ratio of pleural fluid amylase to a concurrent serum amylase >1 is defined asan amylase-rich pleural effusion.PERITONEAL FLUIDS AND DRAINAGE FLUIDS:Pancreatic damage causes extravasation of amylase from the exocrine cells into the peritoneal space. In cases of pancreatitis, fluid amylase should be at least several-fold times higher in fluid of pancreatic origin compared to concurrent serum amylase values.PANCREATIC CYST FLUID:Pancreatic cyst fluid amylase may aid in characterizing tumors and should be interpreted along with other clinical and laboratory information.References:1. Gabino HOLLAND, Logan Lucero. Body fluid analysis: clinical utility and applicability of published studies to guide interpretation of todays laboratory testing in serous fluids. Crit Rev Clin Lab Sci, 2013;50(4-5):107-124.2. CLSI. Analysis of Body Fluids in Clinical Chemistry; Approved Guideline. CLSI document C49-A. THAD Joe: Clinical Laboratory Standards [place]; 2007.3. Eleuterio MOROCHO, Jose MELVIN, Marielena LOWRY. Use of cyst fluid CEA, CA19-9, and amylase for evaluation of pancreatic lesions. Clinical Biochemistry. 2009;42:3350-5359.This test was developed, and its performance characteristics determined by the [facility] Department of Pathology and Laboratory Medicine. It has not been cleared or approved by the FDA. The [facility] Department of Pathology and Laboratory Medicine is regulated under CLIA as qualified to perform high-complexity testing. This test is used for clinical purposes. It should not be regarded as investigational or for research. Performed By: #### 1 795-4 ####[facility]ORATORYCLIA [id number] [place] [address] [place] Basic metabolic 2000 panelon 01-10-2025 Anion gap [Moles/Vol] 18 mmol/L High 8-15 [facility] Comment on above: Order Comment: Speci men Type: BLOOD SPECIMENOrdering Facility: [facility] Address: [address] [place] [address] Performed By: #### 2 4321-2 ####[facility]ORATORYCLIA [id number] [place] [address] [place] Calcium [Mass/Vol] 8.0 mg/dL Low 8.5-10.2 [facility] Comment on above: Order Comment: Speci men Type: BLOOD SPECIMENOrdering Facility: [facility] Address: [address] [place] [address] Performed By: #### 2 4321-2 ####[facility] LABORATORYCLIA [id number] [address] [place] Chloride [Moles/Vol] 95 mmol/L Low 98-107 [facility] Comment on above: Order Comment: Speci men Type: BLOOD SPECIMENOrdering Facility: [facility] Address: [address] [place] [address] Performed By: #### 2 4321-2 ####[facility]ORATORYCLIA [id number] [place] [address] [place] CO2 [Moles/Vol] 23 mmol/L Normal 22-30 [facility] Comment on above: Order Comment: Speci men Type: BLOOD SPECIMENOrdering Facility: [facility] Address: [address] [place] [address] Performed By: #### 2 4321-2 ####[facility]ORATORYCLIA [id number] [place] [address] [place] Creatinine [Mass/Vol] 0.87 mg/dL Normal 0.58-0.96 [facility] Comment on above: Order Comment: Speci men Type: BLOOD SPECIMENOrdering Facility: [facility] Address: [address] [place] [address] Performed By: #### 2 4321-2 ####[facility] LABORATORYCLIA [id number] [place] [id number] [facility] Creatinine and Glomerular filtration rate.predicted panel (S/P/Bld) 65 mL/min/1.73m??? Normal >=60 [facility] Comment on above: Order Comment: Adelita austin Type: BLOOD SPECIMENOrdering Facility: [facility] Address: [address] [place] [address] Result Comment: Ely mated Glomerular Filtration Rate (eGFR) is calculated using the 2020 CKD-EPI creatinine equation. This equation utilizes serum creatinine, sex, and age as parameters. The creatinine assay has traceable calibration to isotope dilution-mass spectrometry. Refer to KDIGO guidelines for clinical interpretation. In patients with unstable renal function, e.g. those with acute kidney injury, the eGFR may not accurately reflect actual GFR. Performed By: #### 2 4321-2 ####[facility]IA [id number] [address] [place] Glucose [Mass/Vol] 107 mg/dL High 74-99 [facility] Comment on above: Order Comment: Adelita austin Type: BLOOD SPECIMENOrdering Facility: [facility] Address: [address] [place] [address] Result Comment: The [place] Diabetes Association (ADA) provides guidance for cutoff values for fasting glucose and random glucose. The ADA defines fasting as no caloric intake for at least 8 hours. Fasting plasma glucose results between 100 to 125 mg/dL indicate increased risk for diabetes (prediabetes).Fasting plasma glucose results greater than or equal to 126 mg/dL meet the criteria for diagnosis of diabetes. In the absence of unequivocal hyperglycemia, results should be confirmed by repeat testing. In a patient with classic symptoms of hyperglycemia or hyperglycemic crisis, random plasma glucose results greater than or equal to 200 mg/dL meet the criteria for diagnosis of diabetes.Reference: Standards of Medical Care in Diabetes 2016, [place] Diabetes [employer]. Diabetes Care. 2016.39(Suppl 1). Performed By: #### 2 4321-2 ####[facility] LABORATORYCLIA [id number] [place] [id number] [place] Potassium [Moles/Vol] Normal [facility] Comment on above: Order Comment: Speci men Type: BLOOD SPECIMENOrdering Facility: [facility] Address: [address] [place] [address] Result Comment: Unab le to assay due to interference from hemolysis. Suggest reorder as clinically indicated. Performed By: #### 2 4321-2 ####[facility]ORATORYCLIA [id number] [address] [place] Sodium [Moles/Vol] 136 mmol/L Normal 136-144 [facility] Comment on above: Order Comment: Speci men Type: BLOOD SPECIMENOrdering Facility: [facility] Address: [address] [place] [address] Performed By: #### 2 4321-2 ####[facility] LABORATORYCLIA [id number] [address] STATES OF [facility] Urea nitrogen [Mass/Vol] 13 mg/dL Normal 7-21 [facility] Comment on above: Order Comment: Speci men Type: BLOOD SPECIMENOrdering Facility: [facility] Address: [address] [place] [address] Performed By: #### 2 4321-2 ####[facility] LABORATORYCLIA [id number] [address] [place] CBC panel Auto (Bld)on 01-10 Erythrocyte distribution width (RBC) [Ratio] 15.3 % High 11.5-15.0 [facility] Comment on above: Order Comment: Speci men Type: BLOOD SPECIMENOrdering Facility: [facility] Address: [address] [place] [address] Performed By: #### 5 8410-2 ####[facility] LABORATORYCLIA [id number] [address] STATES OF [facility] Hematocrit (Bld) [Volume fraction] 31.2 % Low 36.0-46.0 [facility] Comment on above: Order Comment: Speci men Type: BLOOD SPECIMENOrdering Facility: [facility] Address: [address] [place] [address] Performed By: #### 5 8410-2 ####[facility] LABORATORYCLIA [id number] [address] OF [facility] Hemoglobin (Bld) [Mass/Vol] 10.2 g/dL Low 11.5-15.5 [facility] Comment on above: Order Comment: Speci men Type: BLOOD SPECIMENOrdering Facility: [facility] Address: [address] [place] [address] Performed By: #### 5 8410-2 ####[facility] LABORATORYCLIA [id number] [address] OF [facility] MCH (RBC) [Entitic mass] 29.3 pg Normal 26.0-34.0 [facility] Comment on above: Order Comment: Speci men Type: BLOOD SPECIMENOrdering Facility: [facility] Address: [address] [place] [address] Performed By: #### 5 8410-2 ####[facility] LABORATORYCLIA [id number] [address] MCHC (RBC) [Mass/Vol] 32.7 g/dL Normal 30.5-36.0 [facility] Comment on above: Order Comment: Speci men Type: BLOOD SPECIMENOrdering Facility: [facility] Address: [address] [place] [address] Performed By: #### 5 8410-2 ####[facility] LABORATORYCLIA [id number] [address] [place] MCV (RBC) [Entitic vol] 89.7 fL Normal 80.0-100.[address] [facility] Comment on above: Order Comment: Speci men Type: BLOOD SPECIMENOrdering Facility: [facility] Address: [address] [place] [address] Performed By: #### 5 8410-2 ####[facility] LABORATORYCLIA [id number] [address] OF [facility] Nucleated RBC (Bld) [#/Vol] 0.08 10*3/uL High <0.01 [facility] Comment on above: Order Comment: Speci men Type: BLOOD SPECIMENOrdering Facility: [facility] Address: [address] [place] [address] Performed By: #### 5 8410-2 ####[facility]ORATORYCLIA [id number] [address] [place] Platelet mean volume (Bld) [Entitic vol] 10.2 fL Normal 9.0-12.7 [facility] Comment on above: Order Comment: Speci men Type: BLOOD SPECIMENOrdering Facility: [facility] Address: [address] [place] [address] Performed By: #### 5 8410-2 ####[facility] LABORATORYCLIA [id number] [address] [place] Platelets (Bld) [#/Vol] 394 10*3/uL Normal 150-400 [facility] Comment on above: Order Comment: Speci men Type: BLOOD SPECIMENOrdering Facility: [facility] Address: [address] [place] [address] Performed By: #### 5 8410-2 ####[facility] LABORATORYCLIA [id number] [place] [address] [place] RBC (Bld) [#/Vol] 3.48 10*6/uL Low 3.90-5.20 [facility] Comment on above: Order Comment: Speci men Type: BLOOD SPECIMENOrdering Facility: [facility] Address: [address] [place] [address] Performed By: #### 5 8410-2 ####[facility] LABORATORYCLIA [id number] [place] [address] [place] WBC (Bld) [#/Vol] 13.29 10*3/uL High 3.70-11.00 [facility] Comment on above: Order Comment: Speci men Type: BLOOD SPECIMENOrdering Facility: [facility] Address: [address] [place] [address] Performed By: #### 5 8410-2 ####[facility] LABORATORYCLIA [id number] [address] [place] CNPNon 01-10-2025 CNPN Normal [facility] CONSULTon 01-10-2025 CONSULT Normal [facility] ECG COMPLETEon 01-10-2025 ECG COMPLETE Normal [facility] NURSING PROGon 01-10-2025 NURSING PROG Normal [facility] THERAPY NTon 01-10-2025 THERAPY NT Normal [facility] XR CHEST 1V FRONTALon 2024 XR CHEST 1V FRONTAL Normal [facility] Amylase (Body fld) [Catalyti c activity/Vol]on 01-09-2025 Fluid Nom (Body fld) Mediastinum Normal [facility] Comment on above: Order Comment: Speci men Type: FLUID SPECIMENOrdering Facility: [facility] Address: [address] [place] [address] Performed By: #### 1 795-4 ####[facility]ORATORYCLIA [id number] [address] Amylase Fld-cCncon Amylase (Body fld) [Catalytic activity/Vol] 21 U/L Normal See Comment [facility] Comment on above: Order Comment: Speci men Type: FLUID SPECIMENOrdering Facility: [facility] Address: [address] [place] [address] Result Comment: PLEU RAL FLUIDS:Amylase measurement in pleural fluid is considered a useful test for detecting amylase-rich pleural effusions, which may be caused by exudative conditions associated with pancreatitis, esophageal rupture, malignancy, pneumonia, and liver cirrhosis. A ratio of pleural fluid amylase to a concurrent serum amylase >1 is defined asan amylase-rich pleural effusion.PERITONEAL FLUIDS AND DRAINAGE FLUIDS:Pancreatic damage causes extravasation of amylase from the exocrine cells into the peritoneal space. In cases of pancreatitis, fluid amylase should be at least several-fold times higher in fluid of pancreatic origin compared to concurrent serum amylase values.PANCREATIC CYST FLUID:Pancreatic cyst fluid amylase may aid in characterizing tumors and should be interpreted along with other clinical and laboratory information.References:1. Gabino HOLLAND, Logan Lucero. Body fluid analysis: clinical utility and applicability of published studies to guide interpretation of todays laboratory testing in serous fluids. Crit Rev Clin Lab Sci, 2013;50(4-5):107-124.2. CLSI. Analysis of Body Fluids in Clinical Chemistry; Approved Guideline. CLSI document C49-A. THAD Joe: Clinical Laboratory Standards [place]; 2007.3. Eleuterio MOROCHO, Jose RC, Marielena DJ. Use of cyst fluid CEA, CA19-9, and amylase for evaluation of pancreatic lesions. Clinical Biochemistry. 2009;42:8319-1912.This test was developed, and its performance characteristics determined by the [facility] Department of Pathology and Laboratory Medicine. It has not been cleared or approved by the FDA. The [facility] Department of Pathology and Laboratory Medicine is regulated under CLIA as qualified to perform high-complexity testing. This test is used for clinical purposes. It should not be regarded as investigational or for research. Performed By: #### 1 795-4 ####[facility]ORATORYCLIA [id number] [place] [address] [place] Basic metabolic 2000 panelon 01-09-2025 Anion gap [Moles/Vol] 9 mmol/L Normal 8-15 [facility] Comment on above: Order Comment: Speci men Type: BLOOD SPECIMENOrdering Facility: [facility] Address: [address] [place] [address] Performed By: #### 1 9123-9, 2777-1, 46815-6 ####[facility] LABORATORYCLIA [id number] [place] [address] [place] Calcium [Mass/Vol] 8.3 mg/dL Low 8.5-10.2 [facility] Comment on above: Order Comment: Speci men Type: BLOOD SPECIMENOrdering Facility: [facility] Address: [address] [place] [address] Performed By: #### 1 9123-9, 2777-1, 85194-2 ####[facility] LABORATORYCLIA [id number] [place] [address] [place] Chloride [Moles/Vol] 106 mmol/L Normal 98-107 [facility] Comment on above: Order Comment: Speci men Type: BLOOD SPECIMENOrdering Facility: [facility] Address: [address] [place] [address] Performed By: #### 1 9123-9, 2777-, 92788-4 ####[facility]ENTERCLIA [id number] [address] CO2 [Moles/Vol] 21 mmol/L Low 22-30 [facility] Comment on above: Order Comment: Speci men Type: BLOOD SPECIMENOrdering Facility: [facility] Address: [address] [place] [address] Performed By: #### 1 9123-9, 2777, ####[facility] [id number] [address] Creatinine [Mass/Vol] 0.91 mg/dL Normal 0.58-0.96 [facility] Comment on above: Order Comment: Speci men Type: BLOOD SPECIMENOrdering Facility: [facility] Address: [address] [place] [address] Performed By: #### 1 9123-9, 2777, 98922-7 ####[facility] [id number] [address] Creatinine and Glomerular filtration rate.predicted panel (S/P/Bld) 62 mL/min/1.73m??? Normal >=60 [facility] Comment on above: Order Comment: Speci men Type: BLOOD SPECIMENOrdering Facility: [facility] Address: [address] [place] [address] Result Comment: Ely mated Glomerular Filtration Rate (eGFR) is calculated using the 2020 CKD-EPI creatinine equation. This equation utilizes serum creatinine, sex, and age as parameters. The creatinine assay has traceable calibration to isotope dilution-mass spectrometry. Refer to KDIGO guidelines for clinical interpretation. In patients with unstable renal function, e.g. those with acute kidney injury, the eGFR may not accurately reflect actual GFR. Performed By: #### 1 9123-9, 2777-, 56889-5 ####[facility] LABORATORYCLIA [id number] [place] [address] [place] Glucose [Mass/Vol] 94 mg/dL Normal 74-99 [facility] Comment on above: Order Comment: Speci men Type: BLOOD SPECIMENOrdering Facility: [facility] Address: [address] [place] [address] Result Comment: The [place] Diabetes Association (ADA) provides guidance for cutoff values for fasting glucose and random glucose. The ADA defines fasting as no caloric intake for at least 8 hours. Fasting plasma glucose results between 100 to 125 mg/dL indicate increased risk for diabetes (prediabetes).Fasting plasma glucose results greater than or equal to 126 mg/dL meet the criteria for diagnosis of diabetes. In the absence of unequivocal hyperglycemia, results should be confirmed by repeat testing. In a patient with classic symptoms of hyperglycemia or hyperglycemic crisis, random plasma glucose results greater than or equal to 200 mg/dL meet the criteria for diagnosis of diabetes.Reference: Standards of Medical Care in Diabetes 2016, [place] [employer]. Diabetes Care. 2016.39(Suppl 1). Performed By: #### 1 9123-9, 2777-1, 73045-4 ####[facility] LABORATORYCLIA [id number] [place] [address] [place] Potassium [Moles/Vol] 4.6 mmol/L Normal 3.7-5.1 [facility] Comment on above: Order Comment: Speci men Type: BLOOD SPECIMENOrdering Facility: [facility] Address: [address] [place] [address] Performed By: #### 1 9123-9, 2777-1, 10212-8 ####[facility] LABORATORYCLIA [id number] [place] [address] [place] Sodium [Moles/Vol] 136 mmol/L Normal 136-144 [facility] Comment on above: Order Comment: Speci men Type: BLOOD SPECIMENOrdering Facility: [facility] Address: [address] [place] [id number] Performed By: #### 1 9123-9, 2777-1, 16947-1 ####[facility] LABORATORYCLIA [id number] [place] [address] [place] Urea nitrogen [Mass/Vol] 15 mg/dL Normal 7-21 [facility] Comment on above: Order Comment: Speci men Type: BLOOD SPECIMENOrdering Facility: [facility] Address: [address] [place] [address] Performed By: #### 1 9123-9, 2777-1, 64968-1 ####[facility] LABORATORYCLIA [id number] [address] [place] CASE MGT INIT ASSESon 2024 CASE MGT INIT ASSES Normal [facility] CBC panel Auto (Bld)on 01-09 Erythrocyte distribution width (RBC) [Ratio] 15.6 % High 11.5-15.0 [facility] Comment on above: Order Comment: Speci men Type: BLOOD SPECIMENOrdering Facility: [facility] Address: [address] [place] [address] Performed By: #### 5 8410-2 ####[facility] LABORATORYCLIA [id number] [address] [place] Hematocrit (Bld) [Volume fraction] 29.0 % Low 36.0-46.0 [facility] Comment on above: Order Comment: Speci men Type: BLOOD SPECIMENOrdering Facility: [facility] Address: [address] [place] [address] Performed By: #### 5 8410-2 ####[facility] LABORATORYCLIA [id number] [place] [address] [place] Hemoglobin (Bld) [Mass/Vol] 9.3 g/dL Low 11.5-15.5 [facility] Comment on above: Order Comment: Speci men Type: BLOOD SPECIMENOrdering Facility: [facility] Address: [address] [place] [address] Performed By: #### 5 8410-2 ####[facility] LABORATORYCLIA [id number] [place] [address] [place] MCH (RBC) [Entitic mass] 29.4 pg Normal 26.0-34.0 [facility] Comment on above: Order Comment: Speci men Type: BLOOD SPECIMENOrdering Facility: [facility] Address: [address] [place] [address] Performed By: #### 5 8410-2 ####[facility] LABORATORYCLIA [id number] [address] MCHC (RBC) [Mass/Vol] 32.1 g/dL Normal 30.5-36.0 [facility] Comment on above: Order Comment: Speci men Type: BLOOD SPECIMENOrdering Facility: [facility] Address: [address] [place] [address] Performed By: #### 5 8410-2 ####[facility] LABORATORYCLIA [id number] [address] [place] MCV (RBC) [Entitic vol] 91.8 fL Normal 80.0-100.[address] [facility] Comment on above: Order Comment: Speci men Type: BLOOD SPECIMENOrdering Facility: [facility] Address: [address] [place] [address] Performed By: #### 5 8410-2 ####[facility] LABORATORYCLIA [id number] [address] STATES [facility] Nucleated RBC (Bld) [#/Vol] 0.05 10*3/uL High <0.01 [facility] Comment on above: Order Comment: Speci men Type: BLOOD SPECIMENOrdering Facility: [facility] Address: [address] [place] [address] Performed By: #### 5 8410-2 ####[facility] LABORATORYCLIA [id number] [address] STATES [facility] Platelet mean volume (Bld) [Entitic vol] 10.2 fL Normal 9.0-12.7 [facility] Comment on above: Order Comment: Speci men Type: BLOOD SPECIMENOrdering Facility: [facility] Address: [address] [place] [address] Performed By: #### 5 8410-2 ####[facility] LABORATORYCLIA [id number] [address] OF [facility] Platelets (Bld) [#/Vol] 303 10*3/uL Normal 150-400 [facility] Comment on above: Order Comment: Speci men Type: BLOOD SPECIMENOrdering Facility: [facility] Address: [address] [place] [address] Performed By: #### 5 8410-2 ####[facility] LABORATORYCLIA [id number] [address] OF [facility] RBC (Bld) [#/Vol] 3.16 10*6/uL Low 3.90-5.20 [facility] Comment on above: Order Comment: Speci men Type: BLOOD SPECIMENOrdering Facility: [facility] Address: [address] [place] [address] Performed By: #### 5 8410-2 ####[facility] LABORATORYCLIA [id number] [address] WBC (Bld) [#/Vol] 24.11 10*3/uL High 3.70-11.00 [facility] Comment on above: Order Comment: Speci men Type: BLOOD SPECIMENOrdering Facility: [facility] Address: [address] [place] [address] Performed By: #### 5 8410-2 ####[facility] LABORATORYCLIA [id number] [address] Calcium.ionized [Moles/Vol]o n 01-09-2025 Calcium.ionized (BldV) [Mass/Vol] 1.19 mmol/L Normal 1.08-1.30 [facility] Comment on above: Order Comment: Speci men Type: BLOOD SPECIMENOrdering Facility: [facility] Address: [address] [place] [address] Performed By: #### 1 995-0 ####[facility] LABORATORYCLIA [id number] [address] Calcium.ionized adjusted to pH 7.4 (Bld) [Moles/Vol] 1.17 mmol/L Normal 1.08-1.30 [facility] Comment on above: Order Comment: Speci men Type: BLOOD SPECIMENOrdering Facility: [facility] Address: [address] [place] [address] Performed By: #### 1 995-0 ####[facility] LABORATORYCLIA [id number] [address] [place] Magnesium SerPl-ncon 01-09 Magnesium [Mass/Vol] 2.2 mg/dL Normal 1.7-2.3 [facility] Comment on above: Order Comment: Speci men Type: BLOOD SPECIMENOrdering Facility: [facility] Address: [address] [place] [address] Performed By: #### 1 9123-9, 2777-1, 68852-2 ####[facility] LABORATORYCLIA [id number] [place] [address] [place] Phosphate SerPl-mCncon 01-09 Phosphate [Mass/Vol] 3.7 mg/dL Normal 2.7-4.8 [facility] Comment on above: Order Comment: Speci men Type: BLOOD SPECIMENOrdering Facility: [facility] Address: [address] [place] [address] Performed By: #### 1 9123-9, 2777-1, 65453-3 ####[facility] LABORATORYCLIA [id number] [place] [address] [place] US CAROTID BILon 01-09-2025 US CAROTID DENTON Normal [facility] XR CHEST 1V FRONTALon 2024 XR CHEST 1V FRONTAL Normal [facility] XR CHEST 1V FRONTAL Normal [facility] Basic metabolic 2000 panelon 01-08-2025 Anion gap [Moles/Vol] 9 mmol/L Normal 8-15 [facility] Comment on above: Order Comment: Speci men Type: BLOOD SPECIMENOrdering Facility: [facility] Address: [address] [place] [address] Performed By: #### 2 4321-2, 52813-6, 2776-10 ####[facility] LABORATORYCLIA [id number] [place] [address] [place] Calcium [Mass/Vol] 8.2 mg/dL Low 8.5-10.2 [facility] Comment on above: Order Comment: Speci men Type: BLOOD SPECIMENOrdering Facility: [facility] Address: [address] [place] [address] Performed By: #### 2 4321-2, , 2776-10 ####[facility] LABORATORYCLIA [id number] [place] [address] [place] Chloride [Moles/Vol] 109 mmol/L High 98-107 [facility] Comment on above: Order Comment: Speci men Type: BLOOD SPECIMENOrdering Facility: [facility] Address: [address] [place] [address] Performed By: #### 2 4321-2, , 2776-10 ####[facility]ORATORYCLIA [id number] [place] [address] [place] CO2 [Moles/Vol] 20 mmol/L Low 22-30 [facility] Comment on above: Order Comment: Speci men Type: BLOOD SPECIMENOrdering Facility: [facility] Address: [address] [place] [address] Performed By: #### 2 4321-2, , 2776-10 ####[facility] LABORATORYCLIA [id number] [place] [address] [place] Creatinine [Mass/Vol] 1.01 mg/dL High 0.58-0.96 [facility] Comment on above: Order Comment: Speci men Type: BLOOD SPECIMENOrdering Facility: [facility] Address: [address] [place] [address] Performed By: #### 2 4321-2, , 2776-10 ####[facility] LABORATORYCLIA [id number] [place] [address] [place] Creatinine and Glomerular filtration rate.predicted panel (S/P/Bld) 55 mL/min/1.73m??? Low >=60 [facility] Comment on above: Order Comment: Adelita austin Type: BLOOD SPECIMENOrdering Facility: [facility] Address: [address] [place] [address] Result Comment: Ely mated Glomerular Filtration Rate (eGFR) is calculated using the 2020 CKD-EPI creatinine equation. This equation utilizes serum creatinine, sex, and age as parameters. The creatinine assay has traceable calibration to isotope dilution-mass spectrometry. Refer to KDIGO guidelines for clinical interpretation. In patients with unstable renal function, e.g. those with acute kidney injury, the eGFR may not accurately reflect actual GFR. Performed By: #### 2 4321-2, 51223-9, 2776- ####[facility]LEIA [id number] [place] [id number] [place] Glucose [Mass/Vol] 123 mg/dL High 74-99 [facility] Comment on above: Order Comment: Adelita austin Type: BLOOD SPECIMENOrdering Facility: [facility] Address: [address] [place] [address] Result Comment: The [place] [employer] (ADA) provides guidance for cutoff values for fasting glucose and random glucose. The ADA defines fasting as no caloric intake for at least 8 hours. Fasting plasma glucose results between 100 to 125 mg/dL indicate increased risk for diabetes (prediabetes).Fasting plasma glucose results greater than or equal to 126 mg/dL meet the criteria for diagnosis of diabetes. In the absence of unequivocal hyperglycemia, results should be confirmed by repeat testing. In a patient with classic symptoms of hyperglycemia or hyperglycemic crisis, random plasma glucose results greater than or equal to 200 mg/dL meet the criteria for diagnosis of diabetes.Reference: Standards of Medical Care in Diabetes 2016, [place] [employer]. Diabetes Care. 2016.39(Suppl 1). Performed By: #### 2 4321-2, 80329-9, 2776- ####[facility]ENTERCLIA [id number] [place] [id number] [place] Potassium [Moles/Vol] 4.4 mmol/L Normal 3.7-5.1 [facility] Comment on above: Order Comment: Adelita men Type: BLOOD SPECIMENOrdering Facility: [facility] Address: [address] [place] [address] Performed By: #### 2 4321-2, 50821-2, 2776-10 ####[facility] LABORATORYCLIA [id number] [address] STATES OF [facility] Sodium [Moles/Vol] 138 mmol/L Normal 136-144 [facility] Comment on above: Order Comment: Speci men Type: BLOOD SPECIMENOrdering Facility: [facility] Address: [address] [place] [address] Performed By: #### 2 4321-2, , 2776-10 ####[facility]ORATORYCLIA [id number] [address] [place] Urea nitrogen [Mass/Vol] 16 mg/dL Normal 7-21 [facility] Comment on above: Order Comment: Speci men Type: BLOOD SPECIMENOrdering Facility: [facility] Address: [address] [place] [address] Performed By: #### 2 4321-2, , 27704-11 ####[facility] LABORATORYCLIA [id number] [address] [place] CBC panel Auto (Bld)on 01-08 Erythrocyte distribution width (RBC) [Ratio] 16.1 % High 11.5-15.0 [facility] Comment on above: Order Comment: Speci men Type: BLOOD SPECIMENOrdering Facility: [facility] Address: [address] [place] [address] Performed By: #### 5 8410-2 ####[facility] LABORATORYCLIA [id number] [address] STATES OF [facility] Hematocrit (Bld) [Volume fraction] 30.1 % Low 36.0-46.0 [facility] Comment on above: Order Comment: Speci men Type: BLOOD SPECIMENOrdering Facility: [facility] Address: [address] [place] [address] Performed By: #### 5 8410-2 ####[facility] LABORATORYCLIA [id number] [address] STATES OF [facility] Hemoglobin (Bld) [Mass/Vol] 9.6 g/dL Low 11.5-15.5 [facility] Comment on above: Order Comment: Speci men Type: BLOOD SPECIMENOrdering Facility: [facility] Address: [address] [place] [address] Performed By: #### 5 8410-2 ####[facility] LABORATORYCLIA [id number] [address] MCH (RBC) [Entitic mass] 29.3 pg Normal 26.0-34.0 [facility] Comment on above: Order Comment: Speci men Type: BLOOD SPECIMENOrdering Facility: [facility] Address: [address] [place] [address] Performed By: #### 5 8410-2 ####[facility] LABORATORYCLIA [id number] [address] MCHC (RBC) [Mass/Vol] 31.9 g/dL Normal 30.5-36.0 [facility] Comment on above: Order Comment: Speci men Type: BLOOD SPECIMENOrdering Facility: [facility] Address: [address] [place] [address] Performed By: #### 5 8410-2 ####[facility] LABORATORYCLIA [id number] [address] [place] MCV (RBC) [Entitic vol] 91.8 fL Normal 80.0-100.[address] [facility] Comment on above: Order Comment: Speci men Type: BLOOD SPECIMENOrdering Facility: [facility] Address: [address] [place] [address] Performed By: #### 5 8410-2 ####[facility] LABORATORYCLIA [id number] [address] Nucleated RBC (Bld) [#/Vol] 0.04 10*3/uL High <0.01 [facility] Comment on above: Order Comment: Speci men Type: BLOOD SPECIMENOrdering Facility: [facility] Address: [address] [place] [address] Performed By: #### 5 8410-2 ####[facility] LABORATORYCLIA [id number] [address] [place] Platelet mean volume (Bld) [Entitic vol] 10.0 fL Normal 9.0-12.7 [facility] Comment on above: Order Comment: Speci men Type: BLOOD SPECIMENOrdering Facility: [facility] Address: [address] [place] [address] Performed By: #### 5 8410-2 ####[facility] LABORATORYCLIA [id number] [address] [place] Platelets (Bld) [#/Vol] 297 10*3/uL Normal 150-400 [facility] Comment on above: Order Comment: Speci men Type: BLOOD SPECIMENOrdering Facility: [facility] Address: [address] [place] [address] Performed By: #### 5 8410-2 ####[facility] LABORATORYCLIA [id number] [address] [place] RBC (Bld) [#/Vol] 3.28 10*6/uL Low 3.90-5.20 [facility] Comment on above: Order Comment: Speci men Type: BLOOD SPECIMENOrdering Facility: [facility] Address: [address] [place] [address] Performed By: #### 5 8410-2 ####[facility] LABORATORYCLIA [id number] [address] [place] WBC (Bld) [#/Vol] 29.75 10*3/uL High 3.70-11.00 [facility] Comment on above: Order Comment: Speci men Type: BLOOD SPECIMENOrdering Facility: [facility] Address: [address] [place] [address] Performed By: #### 5 8410-2 ####[facility] LABORATORYCLIA [id number] [place] [address] [place] Erythrocyte distribution width (RBC) [Ratio] 16.5 % High 11.5-15.0 [facility] Comment on above: Order Comment: Speci men Type: BLOOD SPECIMENOrdering Facility: [facility] Address: [address] [place] [address] Performed By: #### 5 8410-2 ####[facility] LABORATORYCLIA [id number] [address] OF [facility] Hematocrit (Bld) [Volume fraction] 29.7 % Low 36.0-46.0 [facility] Comment on above: Order Comment: Speci men Type: BLOOD SPECIMENOrdering Facility: [facility] Address: [address] [place] [address] Performed By: #### 5 8410-2 ####[facility]ORATORYCLIA [id number] [address] Hemoglobin (Bld) [Mass/Vol] 9.9 g/dL Low 11.5-15.5 [facility] Comment on above: Order Comment: Speci men Type: BLOOD SPECIMENOrdering Facility: [facility] Address: [address] [place] [address] Performed By: #### 5 8410-2 ####[facility]ORATORYCLIA [id number] [address] MCH (RBC) [Entitic mass] 29.6 pg Normal 26.0-34.0 [facility] Comment on above: Order Comment: Speci men Type: BLOOD SPECIMENOrdering Facility: [facility] Address: [address] [place] [address] Performed By: #### 5 8410-2 ####[facility] LABORATORYCLIA [id number] [address] [place] MCHC (RBC) [Mass/Vol] 33.3 g/dL Normal 30.5-36.0 [facility] Comment on above: Order Comment: Speci men Type: BLOOD SPECIMENOrdering Facility: [facility] Address: [address] [place] [address] Performed By: #### 5 8410-2 ####[facility] LABORATORYCLIA [id number] [address] MCV (RBC) [Entitic vol] 88.7 fL Normal 80.0-100.0 [facility] Comment on above: Order Comment: Speci men Type: BLOOD SPECIMENOrdering Facility: [facility] Address: [address] [place] [address] Performed By: #### 5 8410-2 ####[facility] LABORATORYCLIA [id number] [address] Nucleated RBC (Bld) [#/Vol] 0.04 10*3/uL High <0.01 [facility] Comment on above: Order Comment: Speci men Type: BLOOD SPECIMENOrdering Facility: [facility] Address: [address] [place] [address] Performed By: #### 5 8410-2 ####[facility] LABORATORYCLIA [id number] [address] Platelet mean volume (Bld) [Entitic vol] 10.4 fL Normal 9.0-12.7 [facility] Comment on above: Order Comment: Speci men Type: BLOOD SPECIMENOrdering Facility: [facility] Address: [address] [place] [address] Performed By: #### 5 8410-2 ####[facility] LABORATORYCLIA [id number] [address] [place] Platelets (Bld) [#/Vol] 299 10*3/uL Normal 150-400 [facility] Comment on above: Order Comment: Speci men Type: BLOOD SPECIMENOrdering Facility: [facility] Address: [address] [place] [address] Performed By: #### 5 8410-2 ####[facility] LABORATORYCLIA [id number] [address] [place] RBC (Bld) [#/Vol] 3.35 10*6/uL Low 3.90-5.20 [facility] Comment on above: Order Comment: Speci men Type: BLOOD SPECIMENOrdering Facility: [facility] Address: [address] [place] [address] Performed By: #### 5 8410-2 ####[facility] LABORATORYCLIA [id number] [place] [address] [place] WBC (Bld) [#/Vol] 35.24 10*3/uL High 3.70-11.00 [facility] Comment on above: Order Comment: Speci men Type: BLOOD SPECIMENOrdering Facility: [facility] Address: [address] [place] [address] Performed By: #### 5 8410-2 ####[facility] LABORATORYCLIA [id number] [place] [address] [place] Calcium.ionized [Moles/Vol]o n 01-08-2025 Calcium.ionized (BldV) [Mass/Vol] 1.21 mmol/L Normal 1.08-1.30 [facility] Comment on above: Order Comment: Speci men Type: BLOOD SPECIMENOrdering Facility: [facility] Address: [address] [place] [address] Performed By: #### 1 995-0 ####[facility]ENTERCLIA [id number] [place] [address] [place] Calcium.ionized adjusted to pH 7.4 (Bld) [Moles/Vol] 1.21 mmol/L Normal 1.08-1.30 [facility] Comment on above: Order Comment: Speci men Type: BLOOD SPECIMENOrdering Facility: [facility] Address: [address] [place] [address] Performed By: #### 1 995-0 ####[facility] LABORATORYCLIA [id number] [place] [address] [place] Magnesium SerPl-mCncon 01-08 Magnesium [Mass/Vol] 2.6 mg/dL High 1.7-2.3 [facility] Comment on above: Order Comment: Speci men Type: BLOOD SPECIMENOrdering Facility: [facility] Address: [address] [place] [address] Performed By: #### 2 4321-2, 62114-6, 2776-10 ####[facility] LABORATORYCLIA [id number] [place] [address] [place] Phosphate SerPl-mCncon 01-08 Phosphate [Mass/Vol] 3.8 mg/dL Normal 2.7-4.8 [facility] Comment on above: Order Comment: Speci men Type: BLOOD SPECIMENOrdering Facility: [facility] Address: [address] [place] [address] Performed By: #### 2 4321-2, , 27704-11 ####[facility] LABORATORYCLIA [id number] [address] [place] ALLIED HEALTHon 01-07-2025 ALLIED HEALTH Normal [facility] ARTERIAL BLOOD GASESon 01-07 Base deficit (BldA) [Moles/Vol] -4 mmol/L Low -2-0 [facility] Comment on above: Order Comment: Speci men Type: ARTERIAL BLOOD SPECIMENOrdering Facility: [facility] Address: [address] [place] [address] Performed By: #### A LLBG ####[facility] LABORATORYCLIA [id number] [address] [place] Body temperature 97.7 [degF] Normal [facility] Comment on above: Order Comment: Speci men Type: ARTERIAL BLOOD SPECIMENOrdering Facility: [facility] Address: [address] [place] [address] Performed By: #### A LLBG ####[facility] LABORATORYCLIA [id number] [address] [place] Calcium.ionized (BldV) [Mass/Vol] 1.31 mmol/L High 1.08-1.30 [facility] Comment on above: Order Comment: Speci men Type: ARTERIAL BLOOD SPECIMENOrdering Facility: [facility] Address: [address] [place] [address] Performed By: #### A LLBG ####[facility] LABORATORYCLIA [id number] [place] [address] [place] Calcium.ionized adjusted to pH 7.4 (BldA) [Moles/Vol] 1.31 mmol/L High 1.08-1.30 [facility] Comment on above: Order Comment: Speci men Type: ARTERIAL BLOOD SPECIMENOrdering Facility: [facility] Address: [address] [place] [address] Performed By: #### A LLBG ####[facility] LABORATORYCLIA [id number] [address] Carboxyhemoglobin (BldA) [Mass fraction] 1.1 % Normal 0.0-2.0 [facility] Comment on above: Order Comment: Speci men Type: ARTERIAL BLOOD SPECIMENOrdering Facility: [facility] Address: [address] [place] [address] Result Comment: Carb oxyhemoglobin Reference Range for Smokers: 2.0-8.0% Performed By: #### A LLBG ####[facility] LABORATORYCLIA [id number] [address] [place] Chloride [Moles/Vol] 109 mmol/L High 97-105 [facility] Comment on above: Order Comment: Speci men Type: ARTERIAL BLOOD SPECIMENOrdering Facility: [facility] Address: [address] [place] [address] Performed By: #### A LLBG ####[facility] LABORATORYCLIA [id number] [address] [place] CO2 (Bld) [Partial pressure] 32 mm Hg Low 36-46 [facility] Comment on above: Order Comment: Speci men Type: ARTERIAL BLOOD SPECIMENOrdering Facility: [facility] Address: [address] [place] [address] Performed By: #### A LLBG ####[facility] LABORATORYCLIA [id number] [address] [place] CO2 adjusted to patient's actual temperature (Bld) [Partial pressure] 32 mmHg Low 36-46 [facility] Comment on above: Order Comment: Speci men Type: ARTERIAL BLOOD SPECIMENOrdering Facility: [facility] Address: [address] [place] [address] Performed By: #### A LLBG ####[facility] LABORATORYCLIA [id number] [place] [address] [place] Glucose [Mass/Vol] 136 mg/dL High 60-105 [facility] Comment on above: Order Comment: Speci men Type: ARTERIAL BLOOD SPECIMENOrdering Facility: [facility] Address: [address] [place] [address] Performed By: #### A LLBG ####[facility] LABORATORYCLIA [id number] [place] [address] [place] HCO3 (Bld) [Moles/Vol] 20 mmol/L Low 22-[address] [facility] Comment on above: Order Comment: Speci men Type: ARTERIAL BLOOD SPECIMENOrdering Facility: [facility] Address: [address] [place] [address] Performed By: #### A LLBG ####[facility] LABORATORYCLIA [id number] [place] [address] [place] Hematocrit (Bld) [Volume fraction] 37.9 % Normal 36.0-46.0 [facility] Comment on above: Order Comment: Speci men Type: ARTERIAL BLOOD SPECIMENOrdering Facility: [facility] Address: [address] [place] [address] Performed By: #### A LLBG ####[facility] LABORATORYCLIA [id number] [place] [address] [place] Hemoglobin (Bld) [Mass/Vol] 12.3 g/dL Normal 11.5-15.5 [facility] Comment on above: Order Comment: Speci men Type: ARTERIAL BLOOD SPECIMENOrdering Facility: [facility] Address: [address] [place] [address] Performed By: #### A LLBG ####[facility] LABORATORYCLIA [id number] [place] [address] [place] Lactate [Moles/Vol] 2.4 mmol/L High 0.5-2.2 [facility] Comment on above: Order Comment: Speci men Type: ARTERIAL BLOOD SPECIMENOrdering Facility: [facility] Address: [address] [place] [address] Performed By: #### A LLBG ####[facility]ORATORYCLIA [id number] [address] STATES [place] 3 Liters/min Normal [facility] Comment on above: Order Comment: Speci men Type: ARTERIAL BLOOD SPECIMENOrdering Facility: [facility] Address: [address] [place] [address] Performed By: #### A LLBG ####[facility]ATORYCLIA [id number] [address] Methemoglobin (Bld) [Mass fraction] 0.7 % Normal 0.0-1.5 [facility] Comment on above: Order Comment: Speci men Type: ARTERIAL BLOOD SPECIMENOrdering Facility: [facility] Address: [address] [place] [address] Performed By: #### A LLBG ####[facility]ATORYCLIA [id number] [address] O2 THERAPY NC = Nasal Cannula Normal [facility] Comment on above: Order Comment: Speci men Type: ARTERIAL BLOOD SPECIMENOrdering Facility: [facility] Address: [address] [place] [address] Performed By: #### A LLBG ####[facility]ATORYCLIA [id number] [address] [place] Oxygen (Bld) [Partial pressure] 88 mm Hg Normal 85-95 [facility] Comment on above: Order Comment: Speci men Type: ARTERIAL BLOOD SPECIMENOrdering Facility: [facility] Address: [address] [place] [address] Performed By: #### A LLBG ####[facility]ATORYCLIA [id number] [address] [place] Oxygen adjusted to patient's actual temperature (Bld) [Partial pressure] 86 mmHg Normal 85-95 [facility] Comment on above: Order Comment: Speci men Type: ARTERIAL BLOOD SPECIMENOrdering Facility: [facility] Address: [address] [place] [address] Performed By: #### A LLBG ####[facility]ORATORYCLIA [id number] [address] [place] Oxyhemoglobin (BldA) [Mass fraction] 95 % Normal 95-98 [facility] Comment on above: Order Comment: Speci men Type: ARTERIAL BLOOD SPECIMENOrdering Facility: [facility] Address: [address] [place] [address] Performed By: #### A LLBG ####[facility]ORATORYCLIA [id number] [place] [address] [place] pH (Bld) 7.40 [pH] Normal 7.35-7.45 [facility] Comment on above: Order Comment: Speci men Type: ARTERIAL BLOOD SPECIMENOrdering Facility: [facility] Address: [address] [place] [address] Performed By: #### A LLBG ####[facility]ORATORYCLIA [id number] [address] [place] pH adjusted to patient's actual temperature (Bld) 7.40 Normal 7.35-7.45 [facility] Comment on above: Order Comment: Speci men Type: ARTERIAL BLOOD SPECIMENOrdering Facility: [facility] Address: [address] [place] [address] Performed By: #### A LLBG ####[facility]ORATORYCLIA [id number] [place] [address] [place] Potassium [Moles/Vol] 4.8 mmol/L Normal 3.5-5.0 [facility] Comment on above: Order Comment: Speci men Type: ARTERIAL BLOOD SPECIMENOrdering Facility: [facility] Address: [address] [place] [address] Performed By: #### A LLBG ####[facility]ORATORYCLIA [id number] [address] STATES OF [facility] Sodium [Moles/Vol] 138 mmol/L Normal 136-144 [facility] Comment on above: Order Comment: Speci men Type: ARTERIAL BLOOD SPECIMENOrdering Facility: [facility] Address: [address] [place] [address] Performed By: #### A LLBG ####[facility]ORATORYCLIA [id number] [address] [place] Base deficit (BldA) [Moles/Vol] -4 mmol/L Low -2-0 [facility] Comment on above: Order Comment: Speci men Type: ARTERIAL BLOOD SPECIMENOrdering Facility: [facility] Address: [address] [place] [address] Performed By: #### A LLBG ####[facility]ORATORYCLIA [id number] [address] [place] Body temperature 97.7 [degF] Normal [facility] Comment on above: Order Comment: Speci men Type: ARTERIAL BLOOD SPECIMENOrdering Facility: [facility] Address: [address] [place] [address] Performed By: #### A LLBG ####[facility]ORATORYCLIA [id number] [address] [place] Calcium.ionized (BldV) [Mass/Vol] 1.29 mmol/L Normal 1.08-1.30 [facility] Comment on above: Order Comment: Speci men Type: ARTERIAL BLOOD SPECIMENOrdering Facility: [facility] Address: [address] [place] [address] Performed By: #### A LLBG ####[facility]ORATORYCLIA [id number] [address] Calcium.ionized adjusted to pH 7.4 (BldA) [Moles/Vol] 1.29 mmol/L Normal 1.08-1.30 [facility] Comment on above: Order Comment: Speci men Type: ARTERIAL BLOOD SPECIMENOrdering Facility: [facility] Address: [address] [place] [address] Performed By: #### A LLBG ####[facility]ORATORYCLIA [id number] [address] [place] Carboxyhemoglobin (BldA) [Mass fraction] 1.6 % Normal 0.0-2.0 [facility] Comment on above: Order Comment: Speci men Type: ARTERIAL BLOOD SPECIMENOrdering Facility: [facility] Address: [address] [place] [address] Result Comment: Carb oxyhemoglobin Reference Range for Smokers: 2.0-8.0% Performed By: #### A LLBG ####[facility]ORATORYCLIA [id number] [address] [place] Chloride [Moles/Vol] 109 mmol/L High 97-105 [facility] Comment on above: Order Comment: Speci men Type: ARTERIAL BLOOD SPECIMENOrdering Facility: [facility] Address: [address] [place] [address] Performed By: #### A LLBG ####[facility]ORATORYCLIA [id number] [address] [place] CO2 (Bld) [Partial pressure] 33 mm Hg Low 36-46 [facility] Comment on above: Order Comment: Speci men Type: ARTERIAL BLOOD SPECIMENOrdering Facility: [facility] Address: [address] [place] [address] Performed By: #### A LLBG ####[facility]ORATORYCLIA [id number] [address] [place] CO2 adjusted to patient's actual temperature (Bld) [Partial pressure] 32 mmHg Low 36-46 [facility] Comment on above: Order Comment: Speci men Type: ARTERIAL BLOOD SPECIMENOrdering Facility: [facility] Address: [address] [place] [address] Performed By: #### A LLBG ####[facility]ORATORYCLIA [id number] [place] [address] [place] FIO2 30 % Normal [facility] Comment on above: Order Comment: Speci men Type: ARTERIAL BLOOD SPECIMENOrdering Facility: [facility] Address: [address] [place] [address] Performed By: #### A LLBG ####[facility]ORATORYCLIA [id number] [address] [place] Glucose [Mass/Vol] 253 mg/dL High 60-105 [facility] Comment on above: Order Comment: Speci men Type: ARTERIAL BLOOD SPECIMENOrdering Facility: [facility] Address: [address] [place] [address] Performed By: #### A LLBG ####[facility]ORATORYCLIA [id number] [place] [address] [place] HCO3 (Bld) [Moles/Vol] 20 mmol/L Low 22-[address] [facility] Comment on above: Order Comment: Speci men Type: ARTERIAL BLOOD SPECIMENOrdering Facility: [facility] Address: [address] [place] [address] Performed By: #### A LLBG ####[facility]ORATORYCLIA [id number] [place] [address] [place] Hematocrit (Bld) [Volume fraction] 31.2 % Low 36.0-46.0 [facility] Comment on above: Order Comment: Speci men Type: ARTERIAL BLOOD SPECIMENOrdering Facility: [facility] Address: [address] [place] [address] Performed By: #### A LLBG ####[facility]ORATORYCLIA [id number] [place] [address] [place] Hemoglobin (Bld) [Mass/Vol] 10.1 g/dL Low 11.5-15.5 [facility] Comment on above: Order Comment: Speci men Type: ARTERIAL BLOOD SPECIMENOrdering Facility: [facility] Address: [address] [place] [address] Performed By: #### A LLBG ####[facility]ORATORYCLIA [id number] [place] [address] [place] Lactate [Moles/Vol] 2.9 mmol/L High 0.5-2.2 [facility] Comment on above: Order Comment: Speci men Type: ARTERIAL BLOOD SPECIMENOrdering Facility: [facility] Address: [address] [place] [address] Performed By: #### A LLBG ####[facility]ATORYCLIA [id number] [address] [place] Methemoglobin (Bld) [Mass fraction] 0.9 % Normal 0.0-1.5 [facility] Comment on above: Order Comment: Speci men Type: ARTERIAL BLOOD SPECIMENOrdering Facility: [facility] Address: [address] [place] [address] Performed By: #### A LLBG ####[facility]ORATORYCLIA [id number] [address] O2 THERAPY VENT=Ventilator Normal [facility] Comment on above: Order Comment: Speci men Type: ARTERIAL BLOOD SPECIMENOrdering Facility: [facility] Address: [address] [place] [address] Performed By: #### A LLBG ####[facility]ORATORYCLIA [id number] [address] [place] Oxygen (Bld) [Partial pressure] 101 mm Hg High 85-95 [facility] Comment on above: Order Comment: Speci men Type: ARTERIAL BLOOD SPECIMENOrdering Facility: [facility] Address: [address] [place] [address] Performed By: #### A LLBG ####[facility]ATORYCLIA [id number] [address] Oxygen adjusted to patient's actual temperature (Bld) [Partial pressure] 98 mmHg High 85-95 [facility] Comment on above: Order Comment: Speci men Type: ARTERIAL BLOOD SPECIMENOrdering Facility: [facility] Address: [address] [place] [address] Performed By: #### A LLBG ####[facility]ATORYCLIA [id number] [address] [place] Oxyhemoglobin (BldA) [Mass fraction] 96 % Normal 95-98 [facility] Comment on above: Order Comment: Speci men Type: ARTERIAL BLOOD SPECIMENOrdering Facility: [facility] Address: [address] [place] [address] Performed By: #### A LLBG ####[facility]ORATORYCLIA [id number] [place] [address] [place] PEEP/CPAP 5 cmH2O Normal [facility] Comment on above: Order Comment: Speci men Type: ARTERIAL BLOOD SPECIMENOrdering Facility: [facility] Address: [address] [place] [address] Performed By: #### A LLBG ####[facility]ORATORYCLIA [id number] [address] [place] pH (Bld) 7.40 [pH] Normal 7.35-7.45 [facility] Comment on above: Order Comment: Speci men Type: ARTERIAL BLOOD SPECIMENOrdering Facility: [facility] Address: [address] [place] [address] Performed By: #### A LLBG ####[facility]ORATORYCLIA [id number] [address] [place] pH adjusted to patient's actual temperature (Bld) 7.40 Normal 7.35-7.45 [facility] Comment on above: Order Comment: Speci men Type: ARTERIAL BLOOD SPECIMENOrdering Facility: [facility] Address: [address] [place] [address] Performed By: #### A LLBG ####[facility]ORATORYCLIA [id number] [address] [place] PO2 / FIO2 RATIO 337 mmHg Normal >300 [facility] Comment on above: Order Comment: Speci men Type: ARTERIAL BLOOD SPECIMENOrdering Facility: [facility] Address: [address] [place] [address] Performed By: #### A LLBG ####[facility]ORYCLIA [id number] [place] [address] [place] Potassium [Moles/Vol] 4.8 mmol/L Normal 3.5-5.0 [facility] Comment on above: Order Comment: Speci men Type: ARTERIAL BLOOD SPECIMENOrdering Facility: [facility] Address: [address] [place] [address] Performed By: #### A LLBG ####[facility]ORATORYCLIA [id number] [address] [place] Sodium [Moles/Vol] 135 mmol/L Low 136-144 [facility] Comment on above: Order Comment: Speci men Type: ARTERIAL BLOOD SPECIMENOrdering Facility: [facility] Address: [address] [place] [address] Performed By: #### A LLBG ####[facility]ORATORYCLIA [id number] [address] [place] Base deficit (BldA) [Moles/Vol] -4 mmol/L Low -2-0 [facility] Comment on above: Order Comment: Speci men Type: ARTERIAL BLOOD SPECIMENOrdering Facility: [facility] Address: [address] [place] [address] Performed By: #### A LLBG ####[facility]ORATORYCLIA [id number] [address] Body temperature 97.34 [degF] Normal [facility] Comment on above: Order Comment: Speci men Type: ARTERIAL BLOOD SPECIMENOrdering Facility: [facility] Address: [address] [place] [address] Performed By: #### A LLBG ####[facility]ORATORYCLIA [id number] [address] Calcium.ionized (BldV) [Mass/Vol] 1.25 mmol/L Normal 1.08-1.30 [facility] Comment on above: Order Comment: Speci men Type: ARTERIAL BLOOD SPECIMENOrdering Facility: [facility] Address: [address] [place] [address] Performed By: #### A LLBG ####[facility]ORATORYCLIA [id number] [address] Calcium.ionized adjusted to pH 7.4 (BldA) [Moles/Vol] 1.24 mmol/L Normal 1.08-1.30 [facility] Comment on above: Order Comment: Speci men Type: ARTERIAL BLOOD SPECIMENOrdering Facility: [facility] Address: [address] [place] [address] Performed By: #### A LLBG ####[facility]ATORYCLIA [id number] [address] Carboxyhemoglobin (BldA) [Mass fraction] 1.3 % Normal 0.0-2.0 [facility] Comment on above: Order Comment: Speci men Type: ARTERIAL BLOOD SPECIMENOrdering Facility: [facility] Address: [address] [place] [address] Result Comment: Carb oxyhemoglobin Reference Range for Smokers: 2.0-8.0% Performed By: #### A LLBG ####[facility]ORATORYCLIA [id number] [address] [place] Chloride [Moles/Vol] 114 mmol/L High 97-105 [facility] Comment on above: Order Comment: Speci men Type: ARTERIAL BLOOD SPECIMENOrdering Facility: [facility] Address: [address] [place] [address] Performed By: #### A LLBG ####[facility]ATORYCLIA [id number] [address] [place] CO2 (Bld) [Partial pressure] 34 mm Hg Low 36-46 [facility] Comment on above: Order Comment: Speci men Type: ARTERIAL BLOOD SPECIMENOrdering Facility: [facility] Address: [address] [place] [address] Performed By: #### A LLBG ####[facility]ATORYCLIA [id number] [address] CO2 adjusted to patient's actual temperature (Bld) [Partial pressure] 33 mmHg Low 36-46 [facility] Comment on above: Order Comment: Speci men Type: ARTERIAL BLOOD SPECIMENOrdering Facility: [facility] Address: [address] [place] [address] Performed By: #### A LLBG ####[facility]ORATORYCLIA [id number] [address] [place] FIO2 30 % Normal [facility] Comment on above: Order Comment: Speci men Type: ARTERIAL BLOOD SPECIMENOrdering Facility: [facility] Address: [address] [place] [address] Performed By: #### A LLBG ####[facility]ATORYCLIA [id number] [address] [place] Glucose [Mass/Vol] 174 mg/dL High 60-105 [facility] Comment on above: Order Comment: Speci men Type: ARTERIAL BLOOD SPECIMENOrdering Facility: [facility] Address: [address] [place] [address] Performed By: #### A LLBG ####[facility]ATORYCLIA [id number] [address] [place] HCO3 (Bld) [Moles/Vol] 20 mmol/L Low 22-[address] [facility] Comment on above: Order Comment: Speci men Type: ARTERIAL BLOOD SPECIMENOrdering Facility: [facility] Address: [address] [place] [address] Performed By: #### A LLBG ####[facility]ORATORYCLIA [id number] [address] Hematocrit (Bld) [Volume fraction] 34.3 % Low 36.0-46.0 [facility] Comment on above: Order Comment: Speci men Type: ARTERIAL BLOOD SPECIMENOrdering Facility: [facility] Address: [address] [place] [address] Performed By: #### A LLBG ####[facility]ORATORYCLIA [id number] [address] [place] Hemoglobin (Bld) [Mass/Vol] 11.1 g/dL Low 11.5-15.5 [facility] Comment on above: Order Comment: Speci men Type: ARTERIAL BLOOD SPECIMENOrdering Facility: [facility] Address: [address] [place] [address] Performed By: #### A LLBG ####[facility]ORYCLIA [id number] [address] Lactate [Moles/Vol] 3.0 mmol/L High 0.5-2.2 [facility] Comment on above: Order Comment: Speci men Type: ARTERIAL BLOOD SPECIMENOrdering Facility: [facility] Address: [address] [place] [address] Performed By: #### A LLBG ####[facility]ORYCLIA [id number] [address] [place] Methemoglobin (Bld) [Mass fraction] 0.9 % Normal 0.0-1.5 [facility] Comment on above: Order Comment: Speci men Type: ARTERIAL BLOOD SPECIMENOrdering Facility: [facility] Address: [address] [place] [address] Performed By: #### A LLBG ####[facility]ORATORYCLIA [id number] [address] O2 THERAPY VENT=Ventilator Normal [facility] Comment on above: Order Comment: Speci men Type: ARTERIAL BLOOD SPECIMENOrdering Facility: [facility] Address: [address] [place] [address] Performed By: #### A LLBG ####[facility]ATORYCLIA [id number] [address] Oxygen (Bld) [Partial pressure] 100 mm Hg High 85-95 [facility] Comment on above: Order Comment: Speci men Type: ARTERIAL BLOOD SPECIMENOrdering Facility: [facility] Address: [address] [place] [address] Performed By: #### A LLBG ####[facility]ORATORYCLIA [id number] [address] Oxygen adjusted to patient's actual temperature (Bld) [Partial pressure] 96 mmHg High 85-95 [facility] Comment on above: Order Comment: Speci men Type: ARTERIAL BLOOD SPECIMENOrdering Facility: [facility] Address: [address] [place] [address] Performed By: #### A LLBG ####[facility]ATORYCLIA [id number] [address] [place] Oxyhemoglobin (BldA) [Mass fraction] 95 % Normal 95-98 [facility] Comment on above: Order Comment: Speci men Type: ARTERIAL BLOOD SPECIMENOrdering Facility: [facility] Address: [address] [place] [address] Performed By: #### A LLBG ####[facility]ATORYCLIA [id number] [place] [address] [place] PEEP/CPAP 5 cmH2O Normal [facility] Comment on above: Order Comment: Speci men Type: ARTERIAL BLOOD SPECIMENOrdering Facility: [facility] Address: [address] [place] [address] Performed By: #### A LLBG ####[facility]ORATORYCLIA [id number] [address] [place] pH (Bld) 7.39 [pH] Normal 7.35-7.45 [facility] Comment on above: Order Comment: Speci men Type: ARTERIAL BLOOD SPECIMENOrdering Facility: [facility] Address: [address] [place] [address] Performed By: #### A LLBG ####[facility]ORATORYCLIA [id number] [address] [place] pH adjusted to patient's actual temperature (Bld) 7.40 Normal 7.35-7.45 [facility] Comment on above: Order Comment: Speci men Type: ARTERIAL BLOOD SPECIMENOrdering Facility: [facility] Address: [address] [place] [address] Performed By: #### A LLBG ####[facility]ATORYCLIA [id number] [address] [place] PO2 / FIO2 RATIO 333 mmHg Normal >300 [facility] Comment on above: Order Comment: Speci men Type: ARTERIAL BLOOD SPECIMENOrdering Facility: [facility] Address: [address] [place] [address] Performed By: #### A LLBG ####[facility]ATORYCLIA [id number] [address] [place] Potassium [Moles/Vol] 4.9 mmol/L Normal 3.5-5.0 [facility] Comment on above: Order Comment: Speci men Type: ARTERIAL BLOOD SPECIMENOrdering Facility: [facility] Address: [address] [place] [address] Performed By: #### A LLBG ####[facility]ATORYCLIA [id number] [place] [address] [place] Sodium [Moles/Vol] 134 mmol/L Low 136-144 [facility] Comment on above: Order Comment: Speci men Type: ARTERIAL BLOOD SPECIMENOrdering Facility: [facility] Address: [address] [place] [address] Performed By: #### A LLBG ####[facility]ATORYCLIA [id number] [place] [address] [place] Basic metabolic 2000 panelon 01-07-2025 Anion gap [Moles/Vol] 10 mmol/L Normal 8-15 [facility] Comment on above: Order Comment: Speci men Type: BLOOD SPECIMENOrdering Facility: [facility] Address: [address] [place] [address] Performed By: #### 2 4321-2 ####[facility]ATORYCLIA [id number] [place] [address] [place] Calcium [Mass/Vol] 8.7 mg/dL Normal 8.5-10.2 [facility] Comment on above: Order Comment: Speci men Type: BLOOD SPECIMENOrdering Facility: [facility] Address: [address] [place] [address] Performed By: #### 2 4321-2 ####[facility]ORYCLIA [id number] [place] [address] [place] Chloride [Moles/Vol] 110 mmol/L High 98-107 [facility] Comment on above: Order Comment: Speci men Type: BLOOD SPECIMENOrdering Facility: [facility] Address: [address] [place] [address] Performed By: #### 2 4321-2 ####[facility] LABORATORYCLIA [id number] [place] [id number] [place] CO2 [Moles/Vol] 17 mmol/L Low 22-30 [facility] Comment on above: Order Comment: Speci men Type: BLOOD SPECIMENOrdering Facility: [facility] Address: [address] [place] [address] Performed By: #### 2 4321-2 ####[facility] LABORATORYCLIA [id number] [address] [place] Creatinine [Mass/Vol] 1.42 mg/dL High 0.58-0.96 [facility] Comment on above: Order Comment: Speci men Type: BLOOD SPECIMENOrdering Facility: [facility] Address: [address] [place] [address] Performed By: #### 2 4321-2 ####[facility] LABORATORYCLIA [id number] [address] Creatinine and Glomerular filtration rate.predicted panel (S/P/Bld) 36 mL/min/1.73m??? Low >=60 [facility] Comment on above: Order Comment: Speci men Type: BLOOD SPECIMENOrdering Facility: [facility] Address: [address] [place] [address] Result Comment: Ely mated Glomerular Filtration Rate (eGFR) is calculated using the 2020 CKD-EPI creatinine equation. This equation utilizes serum creatinine, sex, and age as parameters. The creatinine assay has traceable calibration to isotope dilution-mass spectrometry. Refer to KDIGO guidelines for clinical interpretation. In patients with unstable renal function, e.g. those with acute kidney injury, the eGFR may not accurately reflect actual GFR. Performed By: #### 2 4321-2 ####[facility] LABORATORYCLIA [id number] [address] [place] Glucose [Mass/Vol] 138 mg/dL High 74-99 [facility] Comment on above: Order Comment: Adelita geovanna Type: BLOOD SPECIMENOrdering Facility: [facility] Address: [address] [place] [address] Result Comment: The [place] Diabetes Association (ADA) provides guidance for cutoff values for fasting glucose and random glucose. The ADA defines fasting as no caloric intake for at least 8 hours. Fasting plasma glucose results between 100 to 125 mg/dL indicate increased risk for diabetes (prediabetes).Fasting plasma glucose results greater than or equal to 126 mg/dL meet the criteria for diagnosis of diabetes. In the absence of unequivocal hyperglycemia, results should be confirmed by repeat testing. In a patient with classic symptoms of hyperglycemia or hyperglycemic crisis, random plasma glucose results greater than or equal to 200 mg/dL meet the criteria for diagnosis of diabetes.Reference: Standards of Medical Care in Diabetes 2016, [place] Diabetes [employer]. Diabetes Care. 2016.39(Suppl 1). Performed By: #### 2 4321-2 ####[facility] LABORATORYCLIA [id number] [place] [address] [place] Potassium [Moles/Vol] 5.0 mmol/L Normal 3.7-5.1 [facility] Comment on above: Order Comment: Adelita geovanna Type: BLOOD SPECIMENOrdering Facility: [facility] Address: [address] [place] [address] Performed By: #### 2 4321-2 ####[facility] LABORATORYCLIA [id number] [place] [address] [place] Sodium [Moles/Vol] 137 mmol/L Normal 136-144 [facility] Comment on above: Order Comment: Javadi men Type: BLOOD SPECIMENOrdering Facility: [facility] Address: [address] [place] [id number] Performed By: #### 2 4321-2 ####[facility] LABORATORYCLIA [id number] [place] [address] [place] Urea nitrogen [Mass/Vol] 17 mg/dL Normal 7-21 [facility] Comment on above: Order Comment: Javadi men Type: BLOOD SPECIMENOrdering Facility: [facility] Address: [address] [place] [address] Performed By: #### 2 4321-2 ####[facility] LABORATORYCLIA [id number] [place] [address] [place] Anion gap [Moles/Vol] 10 mmol/L Normal 8-15 [facility] Comment on above: Order Comment: Speci men Type: BLOOD SPECIMENOrdering Facility: [facility] Address: [address] [place] [address] Performed By: #### 2 4321-2, , 2776-10 ####[facility] LABORATORYCLIA [id number] [place] [address] [place] Calcium [Mass/Vol] 8.7 mg/dL Normal 8.5-10.2 [facility] Comment on above: Order Comment: Speci men Type: BLOOD SPECIMENOrdering Facility: [facility] Address: [address] [place] [address] Performed By: #### 2 1-2, , 2776-10 ####[facility]ORATORYCLIA [id number] [place] [address] [place] Chloride [Moles/Vol] 110 mmol/L High 98-107 [facility] Comment on above: Order Comment: Speci men Type: BLOOD SPECIMENOrdering Facility: [facility] Address: [address] [place] [address] Performed By: #### 2 4321-2, , 2776-10 ####[facility] LABORATORYCLIA [id number] [place] [address] [place] CO2 [Moles/Vol] 19 mmol/L Low 22-30 [facility] Comment on above: Order Comment: Speci men Type: BLOOD SPECIMENOrdering Facility: [facility] Address: [address] [place] [address] Performed By: #### 2 4321-2, , 2776-10 ####[facility]ORATORYCLIA [id number] [place] [address] [place] Creatinine [Mass/Vol] 1.36 mg/dL High 0.58-0.96 [facility] Comment on above: Order Comment: Adelita austin Type: BLOOD SPECIMENOrdering Facility: [facility] Address: [address] [place] [address] Performed By: #### 2 4321-2, , 2776-10 ####[facility] LABORATORYCLIA [id number] [place] [id number] [facility] [place] Creatinine and Glomerular filtration rate.predicted panel (S/P/Bld) 38 mL/min/1.73m??? Low >=60 [facility] Comment on above: Order Comment: Adelita austin Type: BLOOD SPECIMENOrdering Facility: [facility] Address: [address] [place] [address] Result Comment: Ely mated Glomerular Filtration Rate (eGFR) is calculated using the 2020 CKD-EPI creatinine equation. This equation utilizes serum creatinine, sex, and age as parameters. The creatinine assay has traceable calibration to isotope dilution-mass spectrometry. Refer to KDIGO guidelines for clinical interpretation. In patients with unstable renal function, e.g. those with acute kidney injury, the eGFR may not accurately reflect actual GFR. Performed By: #### 2 4321-2, , 2776-10 ####[facility]ORATORYCLIA [id number] [place] [id number] [place] Glucose [Mass/Vol] 151 mg/dL High 74-99 [facility] Comment on above: Order Comment: Adelita austin Type: BLOOD SPECIMENOrdering Facility: [facility] Address: [address] [place] [address] Result Comment: The [place] Diabetes Association (ADA) provides guidance for cutoff values for fasting glucose and random glucose. The ADA defines fasting as no caloric intake for at least 8 hours. Fasting plasma glucose results between 100 to 125 mg/dL indicate increased risk for diabetes (prediabetes).Fasting plasma glucose results greater than or equal to 126 mg/dL meet the criteria for diagnosis of diabetes. In the absence of unequivocal hyperglycemia, results should be confirmed by repeat testing. In a patient with classic symptoms of hyperglycemia or hyperglycemic crisis, random plasma glucose results greater than or equal to 200 mg/dL meet the criteria for diagnosis of diabetes.Reference: Standards of Medical Care in Diabetes 2016, [place] Diabetes [employer]. Diabetes Care. 2016.39(Suppl 1). Performed By: #### 2 4321-2, , 2776-10 ####[facility] LABORATORYCLIA [id number] [place] [address] [place] Potassium [Moles/Vol] 5.4 mmol/L High 3.7-5.1 [facility] Comment on above: Order Comment: Speci men Type: BLOOD SPECIMENOrdering Facility: [facility] Address: [address] [place] [address] Performed By: #### 2 4321-2, , 2776-10 ####[facility]ORATORYCLIA [id number] [address] [place] Sodium [Moles/Vol] 139 mmol/L Normal 136-144 [facility] Comment on above: Order Comment: Speci men Type: BLOOD SPECIMENOrdering Facility: [facility] Address: [address] [place] [address] Performed By: #### 2 4321-2, , 2776-10 ####[facility]ORATORYCLIA [id number] [address] [place] Urea nitrogen [Mass/Vol] 17 mg/dL Normal 7-21 [facility] Comment on above: Order Comment: Speci men Type: BLOOD SPECIMENOrdering Facility: [facility] Address: [facility] [place] [address] Performed By: #### 2 4321-2, , 2776-10 ####[facility]ORATORYCLIA [id number] [place] [id number] [place] CBC panel Auto (Bld)on 01-07 Erythrocyte distribution width (RBC) [Ratio] 15.9 % High 11.5-15.0 [facility] Comment on above: Order Comment: Speci men Type: BLOOD SPECIMENOrdering Facility: [facility] Address: [address] [place] [address] Performed By: #### 5 8410-2 ####[facility]ORATORYCLIA [id number] [address] Hematocrit (Bld) [Volume fraction] 31.1 % Low 36.0-46.0 [facility] Comment on above: Order Comment: Speci men Type: BLOOD SPECIMENOrdering Facility: [facility] Address: [address] [place] [address] Performed By: #### 5 8410-2 ####[facility] LABORATORYCLIA [id number] [address] OF [facility] Hemoglobin (Bld) [Mass/Vol] 10.8 g/dL Low 11.5-15.5 [facility] Comment on above: Order Comment: Speci men Type: BLOOD SPECIMENOrdering Facility: [facility] Address: [address] [place] [address] Performed By: #### 5 8410-2 ####[facility]ORATORYCLIA [id number] [address] MCH (RBC) [Entitic mass] 29.8 pg Normal 26.0-34.0 [facility] Comment on above: Order Comment: Speci men Type: BLOOD SPECIMENOrdering Facility: [facility] Address: [address] [place] [address] Performed By: #### 5 8410-2 ####[facility]ORATORYCLIA [id number] [address] OF [facility] MCHC (RBC) [Mass/Vol] 34.7 g/dL Normal 30.5-36.0 [facility] Comment on above: Order Comment: Speci men Type: BLOOD SPECIMENOrdering Facility: [facility] Address: [address] [place] [address] Performed By: #### 5 8410-2 ####[facility]ORATORYCLIA [id number] [address] MCV (RBC) [Entitic vol] 85.7 fL Normal 80.0-100.[address] [facility] Comment on above: Order Comment: Speci men Type: BLOOD SPECIMENOrdering Facility: [facility] Address: [address] [place] [address] Performed By: #### 5 8410-2 ####[facility]ORATORYCLIA [id number] [address] Nucleated RBC (Bld) [#/Vol] 0.04 10*3/uL High <0.01 [facility] Comment on above: Order Comment: Speci men Type: BLOOD SPECIMENOrdering Facility: [facility] Address: [address] [place] [address] Performed By: #### 5 8410-2 ####[facility]ORATORYCLIA [id number] [address] [place] Platelet mean volume (Bld) [Entitic vol] 10.1 fL Normal 9.0-12.7 [facility] Comment on above: Order Comment: Speci men Type: BLOOD SPECIMENOrdering Facility: [facility] Address: [address] [place] [address] Performed By: #### 5 8410-2 ####[facility]ORATORYCLIA [id number] [address] [place] Platelets (Bld) [#/Vol] 234 10*3/uL Normal 150-400 [facility] Comment on above: Order Comment: Speci men Type: BLOOD SPECIMENOrdering Facility: [facility] Address: [address] [place] [address] Performed By: #### 5 8410-2 ####[facility]ORATORYCLIA [id number] [address] [place] RBC (Bld) [#/Vol] 3.63 10*6/uL Low 3.90-5.20 [facility] Comment on above: Order Comment: Speci men Type: BLOOD SPECIMENOrdering Facility: [facility] Address: [address] [place] [address] Performed By: #### 5 8410-2 ####[facility] LABORATORYCLIA [id number] [place] [address] [place] WBC (Bld) [#/Vol] 29.81 10*3/uL High 3.70-11.00 [facility] Comment on above: Order Comment: Speci men Type: BLOOD SPECIMENOrdering Facility: [facility] Address: [address] [place] [address] Performed By: #### 5 8410-2 ####[facility] LABORATORYCLIA [id number] [address] [place] CONSULT PROGon 01-07-2025 CONSULT PROG Normal [facility] CONSULT PROG Normal [facility] Calcium.ionized [Moles/Vol]o n 01-07-2025 Calcium.ionized (BldV) [Mass/Vol] 1.27 mmol/L Normal 1.08-1.30 [facility] Comment on above: Order Comment: Speci men Type: BLOOD SPECIMENOrdering Facility: [facility] Address: [address] [place] [address] Performed By: #### 1 995-0 ####[facility]ORATORYCLIA [id number] [address] Calcium.ionized adjusted to pH 7.4 (Bld) [Moles/Vol] 1.28 mmol/L Normal 1.08-1.30 [facility] Comment on above: Order Comment: Speci men Type: BLOOD SPECIMENOrdering Facility: [facility] Address: [address] [place] [address] Performed By: #### 1 995-0 ####[facility]ORATORYCLIA [id number] [address] [place] Lactate (Bld) [Moles/Vol]on 01-07-2025 Lactate [Moles/Vol] 0.8 mmol/L Normal 0.5-2.2 [facility] Comment on above: Order Comment: Speci men Type: BLOOD SPECIMENOrdering Facility: [facility] Address: [address] [place] [address] Performed By: #### 3 2693-4 ####[facility] LABORATORYCLIA [id number] [place] [address] [facility] [place] Magnesium SerPl-mCncon 01-07 Magnesium [Mass/Vol] 3.2 mg/dL High 1.7-2.3 [facility] Comment on above: Order Comment: Speci men Type: BLOOD SPECIMENOrdering Facility: [facility] Address: [address] [place] [address] Performed By: #### 2 4321-2, 57433-9, 2777-1 ####[facility] LABORATORYCLIA [id number] [place] [address] [facility] Phosphate SerPl-mCncon 01-07 Phosphate [Mass/Vol] 4.4 mg/dL Normal 2.7-4.8 [facility] Comment on above: Order Comment: Speci men Type: BLOOD SPECIMENOrdering Facility: [facility] Address: [address] [place] [address] Performed By: #### 2 4321-2, 22383-3, 27771 ####[facility]ORATORYCLIA [id number] [address] [place] THERAPY NTon 01-07-2025 THERAPY NT Normal [facility] THERAPY NT Normal [facility] XR CHEST 1V FRONTALon 2024 XR CHEST 1V FRONTAL Normal [facility] 12 Lead EKGon 01-06-2025 12 Lead EKG [facility] [address] [place] [address] 12 Lead EKG 01/06/25 0412 MR#: [id number] Acct: [id number] Name: MARY CRANE Rep #: [id number] : 1940 84 From: Mario Hagen MD Attending Dr: Status: DEP ER Ordering Dr: Fredy Freeman DO Date: 01/06/25 Location: ED Sex: F C Admitted: Test Reason : STROKE ALERT Blood Pressure : */* mmHG Vent. Rate : 70 BPM Atrial Rate : 70 BPM P-R Int : 236 ms QRS Dur : 86 ms QT Int : 474 ms P-R-T Axes : 47 -22 12 degrees QTcB Int : 511 ms Sinus rhythm with 1st degree A-V block Prolonged QT Abnormal ECG Confirmed by MARIO HGAEN MD ([id number]), newspaper editor ZAID CALLAHAN ([id number]) on 01/06/2025 8:26:03 AM Referred By: LYDIA Confirmed By: MARIO HAGEN MD 01/06/25825 Date Mario Hagen MD CC: Dr. Atul Harvey DO; Dr. Fredy Freeman DO Signed Normal [facility] ALLIED HEALTHon 01-06-2025 ALLIED HEALTH Normal [facility] ALLIED HEALTH Normal [facility] ALLIED HEALTH Normal [facility] ALLIED HEALTH Normal [facility] ANES POSTPROC EVALon 025 ANES POSTPROC EVAL Normal [facility] ANES PRE-OPon 01-06-2025 ANES PRE-OP Normal [facility] ARTERIAL BLOOD GASESon 01-06 Base deficit (BldA) [Moles/Vol] -8 mmol/L Low -2-0 [facility] Comment on above: Order Comment: Speci men Type: ARTERIAL BLOOD SPECIMENOrdering Facility: [facility] Address: [address] [place] [address] Performed By: #### A LLBG ####[facility] LABORATORYCLIA [id number] [place] [address] [place] Body temperature 98.42 [degF] Normal [facility] Comment on above: Order Comment: Speci men Type: ARTERIAL BLOOD SPECIMENOrdering Facility: [facility] Address: [address] [place] [address] Performed By: #### A LLBG ####[facility] LABORATORYCLIA [id number] [place] [address] [place] Calcium.ionized (BldV) [Mass/Vol] 1.36 mmol/L High 1.08-1.30 [facility] Comment on above: Order Comment: Speci men Type: ARTERIAL BLOOD SPECIMENOrdering Facility: [facility] Address: [address] [place] [address] Performed By: #### A LLBG ####[facility] LABORATORYCLIA [id number] [place] [address] [place] [facility] Calcium.ionized adjusted to pH 7.4 (BldA) [Moles/Vol] 1.33 mmol/L High 1.08-1.30 [facility] Comment on above: Order Comment: Speci men Type: ARTERIAL BLOOD SPECIMENOrdering Facility: [facility] Address: [address] [place] [address] Performed By: #### A LLBG ####[facility] LABORATORYCLIA [id number] [address] [place] Carboxyhemoglobin (BldA) [Mass fraction] 1.7 % Normal 0.0-2.0 [facility] Comment on above: Order Comment: Speci men Type: ARTERIAL BLOOD SPECIMENOrdering Facility: [facility] Address: [address] [place] [address] Result Comment: Carb oxyhemoglobin Reference Range for Smokers: 2.0-8.0% Performed By: #### A LLBG ####[facility] LABORATORYCLIA [id number] [place] [address] [place] Chloride [Moles/Vol] 112 mmol/L High 97-105 [facility] Comment on above: Order Comment: Speci men Type: ARTERIAL BLOOD SPECIMENOrdering Facility: [facility] Address: [address] [place] [address] Performed By: #### A LLBG ####[facility] LABORATORYCLIA [id number] [address] [place] CO2 (Bld) [Partial pressure] 31 mm Hg Low 36-46 [facility] Comment on above: Order Comment: Speci men Type: ARTERIAL BLOOD SPECIMENOrdering Facility: [facility] Address: [address] [place] [address] Performed By: #### A LLBG ####[facility] LABORATORYCLIA [id number] [address] OF [facility] CO2 adjusted to patient's actual temperature (Bld) [Partial pressure] 30 mmHg Low 36-46 [facility] Comment on above: Order Comment: Speci men Type: ARTERIAL BLOOD SPECIMENOrdering Facility: [facility] Address: [address] [place] [address] Performed By: #### A LLBG ####[facility] LABORATORYCLIA [id number] [address] [place] Glucose [Mass/Vol] 276 mg/dL High 60-105 [facility] Comment on above: Order Comment: Speci men Type: ARTERIAL BLOOD SPECIMENOrdering Facility: [facility] Address: [address] [place] [address] Performed By: #### A LLBG ####[facility] LABORATORYCLIA [id number] [address] [place] HCO3 (Bld) [Moles/Vol] 17 mmol/L Low 22-[address] [facility] Comment on above: Order Comment: Speci men Type: ARTERIAL BLOOD SPECIMENOrdering Facility: [facility] Address: [address] [place] [address] Performed By: #### A LLBG ####[facility] LABORATORYCLIA [id number] [address] [place] Hematocrit (Bld) [Volume fraction] 37.9 % Normal 36.0-46.0 [facility] Comment on above: Order Comment: Speci men Type: ARTERIAL BLOOD SPECIMENOrdering Facility: [facility] Address: [address] [place] [address] Performed By: #### A LLBG ####[facility] LABORATORYCLIA [id number] [address] [place] Hemoglobin (Bld) [Mass/Vol] 12.3 g/dL Normal 11.5-15.5 [facility] Comment on above: Order Comment: Speci men Type: ARTERIAL BLOOD SPECIMENOrdering Facility: [facility] Address: [address] [place] [address] Performed By: #### A LLBG ####[facility] LABORATORYCLIA [id number] [address] [place] Lactate [Moles/Vol] 5.1 mmol/L High 0.5-2.2 [facility] Comment on above: Order Comment: Speci men Type: ARTERIAL BLOOD SPECIMENOrdering Facility: [facility] Address: [address] [place] [address] Performed By: #### A LLBG ####[facility] LABORATORYCLIA [id number] [address] [place] Methemoglobin (Bld) [Mass fraction] 0.9 % Normal 0.0-1.5 [facility] Comment on above: Order Comment: Speci men Type: ARTERIAL BLOOD SPECIMENOrdering Facility: [facility] Address: [address] [place] [address] Performed By: #### A LLBG ####[facility] LABORATORYCLIA [id number] [address] O2 THERAPY VENT=Ventilator Normal [facility] Comment on above: Order Comment: Speci men Type: ARTERIAL BLOOD SPECIMENOrdering Facility: [facility] Address: [address] [place] [address] Performed By: #### A LLBG ####[facility] LABORATORYCLIA [id number] [address] Oxygen (Bld) [Partial pressure] 102 mm Hg High 85-95 [facility] Comment on above: Order Comment: Speci men Type: ARTERIAL BLOOD SPECIMENOrdering Facility: [facility] Address: [address] [place] [address] Performed By: #### A LLBG ####[facility] LABORATORYCLIA [id number] [address] Oxygen adjusted to patient's actual temperature (Bld) [Partial pressure] 102 mmHg High 85-95 [facility] Comment on above: Order Comment: Speci men Type: ARTERIAL BLOOD SPECIMENOrdering Facility: [facility] Address: [address] [place] [address] Performed By: #### A LLBG ####[facility] LABORATORYCLIA [id number] [address] Oxyhemoglobin (BldA) [Mass fraction] 96 % Normal 95-98 [facility] Comment on above: Order Comment: Speci men Type: ARTERIAL BLOOD SPECIMENOrdering Facility: [facility] Address: [address] [place] [address] Performed By: #### A LLBG ####[facility] LABORATORYCLIA [id number] [place] [address] [place] pH (Bld) 7.35 [pH] Normal 7.35-7.45 [facility] Comment on above: Order Comment: Speci men Type: ARTERIAL BLOOD SPECIMENOrdering Facility: [facility] Address: [address] [place] [address] Performed By: #### A LLBG ####[facility] LABORATORYCLIA [id number] [address] pH adjusted to patient's actual temperature (Bld) 7.35 Normal 7.35-7.45 [facility] Comment on above: Order Comment: Speci men Type: ARTERIAL BLOOD SPECIMENOrdering Facility: [facility] Address: [address] [place] [address] Performed By: #### A LLBG ####[facility] LABORATORYCLIA [id number] [place] [address] [place] Potassium [Moles/Vol] 4.9 mmol/L Normal 3.5-5.0 [facility] Comment on above: Order Comment: Speci men Type: ARTERIAL BLOOD SPECIMENOrdering Facility: [facility] Address: [address] [place] [address] Performed By: #### A LLBG ####[facility] LABORATORYCLIA [id number] [address] [place] Sodium [Moles/Vol] 138 mmol/L Normal 136-144 [facility] Comment on above: Order Comment: Speci men Type: ARTERIAL BLOOD SPECIMENOrdering Facility: [facility] Address: [address] [place] [address] Performed By: #### A LLBG ####[facility] LABORATORYCLIA [id number] [address] [place] Base deficit (BldA) [Moles/Vol] -8 mmol/L Low -2-0 [facility] Comment on above: Order Comment: Speci men Type: ARTERIAL BLOOD SPECIMENOrdering Facility: [facility] Address: [address] [place] [address] Performed By: #### A LLBG ####[facility] LABORATORYCLIA [id number] [address] [place] Body temperature 97.52 [degF] Normal [facility] Comment on above: Order Comment: Speci men Type: ARTERIAL BLOOD SPECIMENOrdering Facility: [facility] Address: [address] [place] [address] Performed By: #### A LLBG ####[facility] LABORATORYCLIA [id number] [address] Calcium.ionized (BldV) [Mass/Vol] 1.44 mmol/L High 1.08-1.30 [facility] Comment on above: Order Comment: Speci men Type: ARTERIAL BLOOD SPECIMENOrdering Facility: [facility] Address: [address] [place] [address] Performed By: #### A LLBG ####[facility] LABORATORYCLIA [id number] [address] STATES [facility] Calcium.ionized adjusted to pH 7.4 (BldA) [Moles/Vol] 1.37 mmol/L High 1.08-1.30 [facility] Comment on above: Order Comment: Speci men Type: ARTERIAL BLOOD SPECIMENOrdering Facility: [facility] Address: [address] [place] [address] Performed By: #### A LLBG ####[facility] LABORATORYCLIA [id number] [address] [place] Carboxyhemoglobin (BldA) [Mass fraction] 1.8 % Normal 0.0-2.0 [facility] Comment on above: Order Comment: Speci men Type: ARTERIAL BLOOD SPECIMENOrdering Facility: [facility] Address: [address] [place] [address] Result Comment: Carb oxyhemoglobin Reference Range for Smokers: 2.0-8.0% Performed By: #### A LLBG ####[facility] LABORATORYCLIA [id number] [address] [place] Chloride [Moles/Vol] 112 mmol/L High 97-105 [facility] Comment on above: Order Comment: Speci men Type: ARTERIAL BLOOD SPECIMENOrdering Facility: [facility] Address: [address] [place] [address] Performed By: #### A LLBG ####[facility]ATORYCLIA [id number] [address] [place] CO2 (Bld) [Partial pressure] 36 mm Hg Normal 36-46 [facility] Comment on above: Order Comment: Speci men Type: ARTERIAL BLOOD SPECIMENOrdering Facility: [facility] Address: [address] [place] [address] Performed By: #### A LLBG ####[facility]ORATORYCLIA [id number] [address] CO2 adjusted to patient's actual temperature (Bld) [Partial pressure] 35 mmHg Low 36-46 [facility] Comment on above: Order Comment: Speci men Type: ARTERIAL BLOOD SPECIMENOrdering Facility: [facility] Address: [address] [place] [address] Performed By: #### A LLBG ####[facility]ORATORYCLIA [id number] [place] [address] [place] HCO3 (Bld) [Moles/Vol] 18 mmol/L Low 22-[address] [facility] Comment on above: Order Comment: Speci men Type: ARTERIAL BLOOD SPECIMENOrdering Facility: [facility] Address: [address] [place] [address] Performed By: #### A LLBG ####[facility]ORATORYCLIA [id number] [address] OF [facility] Hematocrit (Bld) [Volume fraction] 40.9 % Normal 36.0-46.0 [facility] Comment on above: Order Comment: Speci men Type: ARTERIAL BLOOD SPECIMENOrdering Facility: [facility] Address: [address] [place] [address] Performed By: #### A LLBG ####[facility] LABORATORYCLIA [id number] [address] [place] Hemoglobin (Bld) [Mass/Vol] 13.3 g/dL Normal 11.5-15.5 [facility] Comment on above: Order Comment: Speci men Type: ARTERIAL BLOOD SPECIMENOrdering Facility: [facility] Address: [address] [place] [address] Performed By: #### A LLBG ####[facility] LABORATORYCLIA [id number] [address] [place] Lactate [Moles/Vol] 6.1 mmol/L High 0.5-2.2 [facility] Comment on above: Order Comment: Speci men Type: ARTERIAL BLOOD SPECIMENOrdering Facility: [facility] Address: [address] [place] [address] Performed By: #### A LLBG ####[facility] LABORATORYCLIA [id number] [address] [place] Methemoglobin (Bld) [Mass fraction] 1.0 % Normal 0.0-1.5 [facility] Comment on above: Order Comment: Speci men Type: ARTERIAL BLOOD SPECIMENOrdering Facility: [facility] Address: [address] [place] [address] Performed By: #### A LLBG ####[facility] LABORATORYCLIA [id number] [address] [place] O2 THERAPY VENT=Ventilator Normal [facility] Comment on above: Order Comment: Speci men Type: ARTERIAL BLOOD SPECIMENOrdering Facility: [facility] Address: [address] [place] [address] Performed By: #### A LLBG ####[facility]ORATORYCLIA [id number] [address] [place] Oxygen (Bld) [Partial pressure] 121 mm Hg High 85-95 [facility] Comment on above: Order Comment: Speci men Type: ARTERIAL BLOOD SPECIMENOrdering Facility: [facility] Address: [address] [place] [address] Performed By: #### A LLBG ####[facility]ORATORYCLIA [id number] [address] Oxygen adjusted to patient's actual temperature (Bld) [Partial pressure] 118 mmHg High 85-95 [facility] Comment on above: Order Comment: Speci men Type: ARTERIAL BLOOD SPECIMENOrdering Facility: [facility] Address: [address] [place] [address] Performed By: #### A LLBG ####[facility] LABORATORYCLIA [id number] [address] [place] Oxyhemoglobin (BldA) [Mass fraction] 96 % Normal 95-98 [facility] Comment on above: Order Comment: Speci men Type: ARTERIAL BLOOD SPECIMENOrdering Facility: [facility] Address: [address] [place] [address] Performed By: #### A LLBG ####[facility]ORATORYCLIA [id number] [address] [place] pH (Bld) 7.31 [pH] Low 7.35-7.45 [facility] Comment on above: Order Comment: Speci men Type: ARTERIAL BLOOD SPECIMENOrdering Facility: [facility] Address: [address] [place] [address] Performed By: #### A LLBG ####[facility] LABORATORYCLIA [id number] [address] pH adjusted to patient's actual temperature (Bld) 7.32 Low 7.35-7.45 [facility] Comment on above: Order Comment: Speci men Type: ARTERIAL BLOOD SPECIMENOrdering Facility: [facility] Address: [address] [place] [address] Performed By: #### A LLBG ####[facility] LABORATORYCLIA [id number] [place] [address] [place] Potassium [Moles/Vol] 5.0 mmol/L Normal 3.5-5.0 [facility] Comment on above: Order Comment: Speci men Type: ARTERIAL BLOOD SPECIMENOrdering Facility: [facility] Address: [address] [place] [address] Performed By: #### A LLBG ####[facility] LABORATORYCLIA [id number] [place] [address] [place] Sodium [Moles/Vol] 138 mmol/L Normal 136-144 [facility] Comment on above: Order Comment: Speci men Type: ARTERIAL BLOOD SPECIMENOrdering Facility: [facility] Address: [address] [place] [address] Performed By: #### A LLBG ####[facility] LABORATORYCLIA [id number] [place] [address] [place] Base deficit (BldA) [Moles/Vol] -8 mmol/L Low -2-0 [facility] Comment on above: Order Comment: Speci men Type: ARTERIAL BLOOD SPECIMENOrdering Facility: [facility] Address: [address] [place] [address] Performed By: #### A LLBG ####[facility] LABORATORYCLIA [id number] [place] [address] [place] Body temperature 90.86 [degF] Normal [facility] Comment on above: Order Comment: Speci men Type: ARTERIAL BLOOD SPECIMENOrdering Facility: [facility] Address: [address] [place] [address] Performed By: #### A LLBG ####[facility] LABORATORYCLIA [id number] [address] [place] Calcium.ionized (BldV) [Mass/Vol] 1.51 mmol/L High 1.08-1.30 [facility] Comment on above: Order Comment: Speci men Type: ARTERIAL BLOOD SPECIMENOrdering Facility: [facility] Address: [address] [place] [address] Performed By: #### A LLBG ####[facility] LABORATORYCLIA [id number] [place] [address] [place] Calcium.ionized adjusted to pH 7.4 (BldA) [Moles/Vol] 1.45 mmol/L High 1.08-1.30 [facility] Comment on above: Order Comment: Speci men Type: ARTERIAL BLOOD SPECIMENOrdering Facility: [facility] Address: [address] [place] [address] Performed By: #### A LLBG ####[facility] LABORATORYCLIA [id number] [address] [place] Carboxyhemoglobin (BldA) [Mass fraction] 1.4 % Normal 0.0-2.0 [facility] Comment on above: Order Comment: Speci men Type: ARTERIAL BLOOD SPECIMENOrdering Facility: [facility] Address: [address] [place] [address] Result Comment: Carb oxyhemoglobin Reference Range for Smokers: 2.0-8.0% Performed By: #### A LLBG ####[facility] LABORATORYCLIA [id number] [place] [address] [place] Chloride [Moles/Vol] 109 mmol/L High 97-105 [facility] Comment on above: Order Comment: Speci men Type: ARTERIAL BLOOD SPECIMENOrdering Facility: [facility] Address: [address] [place] [address] Performed By: #### A LLBG ####[facility]ORATORYCLIA [id number] [address] [place] CO2 (Bld) [Partial pressure] 34 mm Hg Low 36-46 [facility] Comment on above: Order Comment: Speci men Type: ARTERIAL BLOOD SPECIMENOrdering Facility: [facility] Address: [address] [place] [address] Performed By: #### A LLBG ####[facility]ORATORYCLIA [id number] [address] CO2 adjusted to patient's actual temperature (Bld) [Partial pressure] 28 mmHg Low 36-46 [facility] Comment on above: Order Comment: Speci men Type: ARTERIAL BLOOD SPECIMENOrdering Facility: [facility] Address: [address] [place] [address] Performed By: #### A LLBG ####[facility] LABORATORYCLIA [id number] [address] [place] Glucose [Mass/Vol] 236 mg/dL High 60-105 [facility] Comment on above: Order Comment: Speci men Type: ARTERIAL BLOOD SPECIMENOrdering Facility: [facility] Address: [address] [place] [address] Performed By: #### A LLBG ####[facility] LABORATORYCLIA [id number] [address] [place] HCO3 (Bld) [Moles/Vol] 17 mmol/L Low 22-[address] [facility] Comment on above: Order Comment: Speci men Type: ARTERIAL BLOOD SPECIMENOrdering Facility: [facility] Address: [address] [place] [address] Performed By: #### A LLBG ####[facility] LABORATORYCLIA [id number] [address] [place] Hematocrit (Bld) [Volume fraction] 39.8 % Normal 36.0-46.0 [facility] Comment on above: Order Comment: Speci men Type: ARTERIAL BLOOD SPECIMENOrdering Facility: [facility] Address: [address] [place] [address] Performed By: #### A LLBG ####[facility] LABORATORYCLIA [id number] [address] [place] Hemoglobin (Bld) [Mass/Vol] 12.9 g/dL Normal 11.5-15.5 [facility] Comment on above: Order Comment: Speci men Type: ARTERIAL BLOOD SPECIMENOrdering Facility: [facility] Address: [address] [place] [address] Performed By: #### A LLBG ####[facility]ORATORYCLIA [id number] [address] [place] Lactate [Moles/Vol] 6.1 mmol/L High 0.5-2.2 [facility] Comment on above: Order Comment: Speci men Type: ARTERIAL BLOOD SPECIMENOrdering Facility: [facility] Address: [address] [place] [address] Performed By: #### A LLBG ####[facility]ORATORYCLIA [id number] [address] [place] Methemoglobin (Bld) [Mass fraction] 0.9 % Normal 0.0-1.5 [facility] Comment on above: Order Comment: Speci men Type: ARTERIAL BLOOD SPECIMENOrdering Facility: [facility] Address: [address] [place] [address] Performed By: #### A LLBG ####[facility] LABORATORYCLIA [id number] [address] O2 THERAPY VENT=Ventilator Normal [facility] Comment on above: Order Comment: Speci men Type: ARTERIAL BLOOD SPECIMENOrdering Facility: [facility] Address: [address] [place] [address] Performed By: #### A LLBG ####[facility]ORATORYCLIA [id number] [address] [place] Oxygen (Bld) [Partial pressure] 138 mm Hg High 85-95 [facility] Comment on above: Order Comment: Speci men Type: ARTERIAL BLOOD SPECIMENOrdering Facility: [facility] Address: [address] [place] [address] Performed By: #### A LLBG ####[facility]ORATORYCLIA [id number] [address] Oxygen adjusted to patient's actual temperature (Bld) [Partial pressure] 115 mmHg High 85-95 [facility] Comment on above: Order Comment: Speci men Type: ARTERIAL BLOOD SPECIMENOrdering Facility: [facility] Address: [address] [place] [address] Performed By: #### A LLBG ####[facility]ORATORYCLIA [id number] [address] [place] Oxyhemoglobin (BldA) [Mass fraction] 96 % Normal 95-98 [facility] Comment on above: Order Comment: Speci men Type: ARTERIAL BLOOD SPECIMENOrdering Facility: [facility] Address: [address] [place] [address] Performed By: #### A LLBG ####[facility] LABORATORYCLIA [id number] [place] [address] [place] pH (Bld) 7.33 [pH] Low 7.35-7.45 [facility] Comment on above: Order Comment: Speci men Type: ARTERIAL BLOOD SPECIMENOrdering Facility: [facility] Address: [address] [place] [address] Performed By: #### A LLBG ####[facility]ORATORYCLIA [id number] [address] [place] pH adjusted to patient's actual temperature (Bld) 7.39 Normal 7.35-7.45 [facility] Comment on above: Order Comment: Speci men Type: ARTERIAL BLOOD SPECIMENOrdering Facility: [facility] Address: [address] [place] [address] Performed By: #### A LLBG ####[facility] LABORATORYCLIA [id number] [place] [address] [place] Potassium [Moles/Vol] 4.1 mmol/L Normal 3.5-5.0 [facility] Comment on above: Order Comment: Speci men Type: ARTERIAL BLOOD SPECIMENOrdering Facility: [facility] Address: [address] [place] [address] Performed By: #### A LLBG ####[facility] LABORATORYCLIA [id number] [address] [place] Sodium [Moles/Vol] 138 mmol/L Normal 136-144 [facility] Comment on above: Order Comment: Speci men Type: ARTERIAL BLOOD SPECIMENOrdering Facility: [facility] Address: [address] [place] [address] Performed By: #### A LLBG ####[facility]ORATORYCLIA [id number] [address] [place] Base deficit (BldA) [Moles/Vol] -3 mmol/L Low -2-0 [facility] Comment on above: Order Comment: Speci men Type: ARTERIAL BLOOD SPECIMENOrdering Facility: [facility] Address: [address] [place] [address] Performed By: #### A LLBG ####[facility]ORATORYCLIA [id number] [address] [place] Body temperature 90.68 [degF] Normal [facility] Comment on above: Order Comment: Speci men Type: ARTERIAL BLOOD SPECIMENOrdering Facility: [facility] Address: [address] [place] [address] Performed By: #### A LLBG ####[facility]ORATORYCLIA [id number] [address] Calcium.ionized (BldV) [Mass/Vol] 1.17 mmol/L Normal 1.08-1.30 [facility] Comment on above: Order Comment: Speci men Type: ARTERIAL BLOOD SPECIMENOrdering Facility: [facility] Address: [address] [place] [address] Performed By: #### A LLBG ####[facility]ORATORYCLIA [id number] [address] [place] Calcium.ionized adjusted to pH 7.4 (BldA) [Moles/Vol] 1.16 mmol/L Normal 1.08-1.30 [facility] Comment on above: Order Comment: Speci men Type: ARTERIAL BLOOD SPECIMENOrdering Facility: [facility] Address: [address] [place] [address] Performed By: #### A LLBG ####[facility]ORATORYCLIA [id number] [address] [place] Carboxyhemoglobin (BldA) [Mass fraction] 1.2 % Normal 0.0-2.0 [facility] Comment on above: Order Comment: Speci men Type: ARTERIAL BLOOD SPECIMENOrdering Facility: [facility] Address: [address] [place] [address] Performed By: #### A LLBG ####[facility] LABORATORYCLIA [id number] [place] [address] [place] Chloride [Moles/Vol] 110 mmol/L High 97-105 [facility] Comment on above: Order Comment: Speci men Type: ARTERIAL BLOOD SPECIMENOrdering Facility: [facility] Address: [address] [place] [address] Performed By: #### A LLBG ####[facility]ATORYCLIA [id number] [address] [place] CO2 (Bld) [Partial pressure] 35 mm Hg Low 36-46 [facility] Comment on above: Order Comment: Speci men Type: ARTERIAL BLOOD SPECIMENOrdering Facility: [facility] Address: [address] [place] [address] Performed By: #### A LLBG ####[facility]ORATORYCLIA [id number] [address] [place] CO2 adjusted to patient's actual temperature (Bld) [Partial pressure] 28 mmHg Low 36-46 [facility] Comment on above: Order Comment: Speci men Type: ARTERIAL BLOOD SPECIMENOrdering Facility: [facility] Address: [address] [place] [address] Performed By: #### A LLBG ####[facility]ATORYCLIA [id number] [place] [address] [place] Glucose [Mass/Vol] 181 mg/dL High 60-105 [facility] Comment on above: Order Comment: Speci men Type: ARTERIAL BLOOD SPECIMENOrdering Facility: [facility] Address: [address] [place] [address] Performed By: #### A LLBG ####[facility]ATORYCLIA [id number] [place] [address] [place] HCO3 (Bld) [Moles/Vol] 21 mmol/L Low 22-[address] [facility] Comment on above: Order Comment: Speci men Type: ARTERIAL BLOOD SPECIMENOrdering Facility: [facility] Address: [address] [place] [address] Performed By: #### A LLBG ####[facility] LABORATORYCLIA [id number] [address] [place] Hematocrit (Bld) [Volume fraction] 35.3 % Low 36.0-46.0 [facility] Comment on above: Order Comment: Speci men Type: ARTERIAL BLOOD SPECIMENOrdering Facility: [facility] Address: [address] [place] [address] Performed By: #### A LLBG ####[facility] LABORATORYCLIA [id number] [address] [place] Hemoglobin (Bld) [Mass/Vol] 11.5 g/dL Normal 11.5-15.5 [facility] Comment on above: Order Comment: Speci men Type: ARTERIAL BLOOD SPECIMENOrdering Facility: [facility] Address: [address] [place] [address] Performed By: #### A LLBG ####[facility] LABORATORYCLIA [id number] [address] [place] Lactate [Moles/Vol] 3.8 mmol/L High 0.5-2.2 [facility] Comment on above: Order Comment: Speci men Type: ARTERIAL BLOOD SPECIMENOrdering Facility: [facility] Address: [address] [place] [address] Performed By: #### A LLBG ####[facility] LABORATORYCLIA [id number] [address] [place] Methemoglobin (Bld) [Mass fraction] 0.9 % Normal 0.0-1.5 [facility] Comment on above: Order Comment: Speci men Type: ARTERIAL BLOOD SPECIMENOrdering Facility: [facility] Address: [address] [place] [address] Performed By: #### A LLBG ####[facility]ORATORYCLIA [id number] [address] O2 THERAPY VENT=Ventilator Normal [facility] Comment on above: Order Comment: Speci men Type: ARTERIAL BLOOD SPECIMENOrdering Facility: [facility] Address: [facility] [place] [address] Performed By: #### A LLBG ####[facility] LABORATORYCLIA [id number] [address] [place] Oxygen (Bld) [Partial pressure] 200 mm Hg High 85-95 [facility] Comment on above: Order Comment: Speci men Type: ARTERIAL BLOOD SPECIMENOrdering Facility: [facility] Address: [address] [place] [address] Performed By: #### A LLBG ####[facility] LABORATORYCLIA [id number] [address] Oxygen adjusted to patient's actual temperature (Bld) [Partial pressure] 181 mmHg High 85-95 [facility] Comment on above: Order Comment: Speci men Type: ARTERIAL BLOOD SPECIMENOrdering Facility: [facility] Address: [address] [place] [address] Performed By: #### A LLBG ####[facility] LABORATORYCLIA [id number] [address] [place] Oxyhemoglobin (BldA) [Mass fraction] 97 % Normal 95-98 [facility] Comment on above: Order Comment: Speci men Type: ARTERIAL BLOOD SPECIMENOrdering Facility: [facility] Address: [address] [place] [address] Performed By: #### A LLBG ####[facility] LABORATORYCLIA [id number] [address] [place] pH (Bld) 7.39 [pH] Normal 7.35-7.45 [facility] Comment on above: Order Comment: Speci men Type: ARTERIAL BLOOD SPECIMENOrdering Facility: [facility] Address: [address] [place] [address] Performed By: #### A LLBG ####[facility]ORATORYCLIA [id number] [place] [address] [place] pH adjusted to patient's actual temperature (Bld) 7.45 Normal 7.35-7.45 [facility] Comment on above: Order Comment: Speci men Type: ARTERIAL BLOOD SPECIMENOrdering Facility: [facility] Address: [address] [place] [address] Performed By: #### A LLBG ####[facility] LABORATORYCLIA [id number] [place] [address] [place] Sodium [Moles/Vol] 139 mmol/L Normal 136-144 [facility] Comment on above: Order Comment: Speci men Type: ARTERIAL BLOOD SPECIMENOrdering Facility: [facility] Address: [address] [place] [address] Performed By: #### A LLBG ####[facility] LABORATORYCLIA [id number] [place] [id number] [place] Abdomen/Pelvis W IV Cont ONL Yon 01-06-2025 Abdomen/Pelvis W IV Cont ONLY [facility] [address] [place] [address] Abdomen/Pelvis W IV Cont ONLY MR#: [id number] Acct: [id number] Name: MARY CRANE Rep #: [id number] : 1940 F 84 From: [place] MD PCP: Dr. Atul Harvey, DO Status: [facility] ER Study: Abdomen/Pelvis W IV Cont ONLY Date of Exam: Exam# [id number] Ordering Dr: Fredy Freeman DO EXAM: ABDOMEN/PELVIS W IV CONT ONLY 01/06/2025 CLINICAL HISTORY: Pain left lower quadrant 2 back COMPARISON: None available TECHNIQUE: CT of the abdomen and pelvis with contrast and coronal and sagittal reformatted images. 97 cc Isovue 370 FINDINGS: The liver, adrenal glands and pancreas appear within limits. The gallbladder is not definitely identified. Small bilateral kidneys with dense appearing nephrograms can be seen with renal disease or ATN. No hydronephrosis. Possible bilateral renal cysts. Aortoiliac atherosclerotic changes without aneurysm or dissection. No bowel dilation or free air. The bladder appears within limits. Heterogeneous area at the posterior spleen concerning for splenic laceration measuring 3-3.5 cm with adjacent high-density areas most concerning for blush of contrast, active extravasation, active bleed. A crescentic collection is seen at the lateral spleen measuring approximately 10 x 1.8 cm with concave deformity on the adjacent spleen most concerning for subcapsular hemorrhage. There is a large amount of high-density fluid within the upper abdomen ylhe-scnwgqx-dicg-righ t about the spleen and within the pelvis consistent with hemoperitoneum. Possible subtle nondisplaced fracture of the posterior left 10th rib axial 20. Old posterior left 12th rib fracture. No pelvic fracture. Lower lumbar spondylosis. CT/Abdomen/Pelvis W IV Cont ONLY IMPRESSION: Heterogeneous area at the posterior spleen concerning for splenic laceration measuring 3-3.5 cm with adjacent high-density areas most concerning for blush of contrast, active extravasation, active bleed. A crescentic collection is seen at the lateral spleen measuring approximately 10 x 1.8 cm with concave deformity on the adjacent spleen most concerning for subcapsular hemorrhage. There is a large amount of high-density fluid within the upper abdomen clpl-pwxblpu-kfdz-righ t about the spleen and within the pelvis consistent with hemoperitoneum. Small bilateral kidneys with dense appearing nephrograms can be seen with renal disease or ATN. No hydronephrosis. Possible subtle nondisplaced fracture of the posterior left 10th rib axial 20. Study discussed over the phone verbally by myself with Dr. Freeman at 04:10 a.m. 01/06/2025 Reading Location: [id number] CC: Dr. Atul Harvey DO; Dr. Fredy Freeman, Public Health Analyst: Signed Normal [facility] Absolute lymphocyte countOrd ered By: Fredy Freeman on 01-06-2025 Lymphocytes Auto (Unsp spec) [#/Vol] 1.81 10*3/uL 0.83-4.51 [facility] Absolute neutrophil countOrd ered By: Fredy Freeman on 01-06-2025 Neutrophils (Bld) [#/Vol] 10.1 10*3/uL High 2.0-7.7 [facility] Activated partial thrombopla stin time (aPTT) in platelet poor plasma by coagulation aOrdered By: Fredy Freeman on 01-06-2025 aPTT Coag (Bld) [Time] 37.1 s High 24.1-36.[address] [facility] Comment on above: Performed By: #### L 100.0100, L500.4050 #### [facility] Laboratory [address] [place], [place], [id number] aPTT Coag (PPP) [Time] 37.1 s High 24.1-36.[address] [facility] Ammonia Plas-sCncon 01-07-20 25 Ammonia (P) [Moles/Vol] 20 umol/L Normal 11-[address] [facility] Comment on above: Order Comment: Speci men Type: BLOOD SPECIMENOrdering Facility: [facility] Address: [address] [place] [address] Performed By: #### 1 6362-6 ####[facility] LABORATORYCLIA [id number] [place] [address] [place] Anion gap in Serum or Plasma Ordered By: Fredy Freeman on 01-06-2025 Anion gap [Moles/Vol] 19 mmol/L High 5-15 [facility] Automated lymphocyte count a s percentage of total leukocytesOrdered By: Fredy Freeman on 01-06-2025 Lymphocytes/100 WBC Auto (Unsp spec) 13.8 % Low 19-41 [facility] BRCon 01-06-2025 RC Normal Neg [facility] Comment on above: Result Comment: [id number] OP RC TRANSFUSED 01/06/25427 [id number] OP RC TRANSFUSED 01/06/25421 [id number] OP RC TRANSFUSED 01/06/25427 Performed By: #### L 501.4020 #### [facility] [address] [place], [place], [address] BRIEF OP NOTon 01-06-2025 BRIEF OP NOT Normal [facility] BUN/creatinine ratioOrdered By: Fredy Freeman on 01-06-2025 Urea nitrogen/Creatinine [Mass ratio] 10.7 mg/mg 07-31 [facility] Bas Metab 2000 Pnl SerPlon 0 01-06-2025 Glucose [Mass/Vol] 250 mg/dL High 60-105 [facility] Comment on above: Order Comment: Adelita austin Type: BLOOD SPECIMENOrdering Facility: [facility] Address: [address] [place] [address] Result Comment: The [place] Diabetes Association (ADA) provides guidance for cutoff values for fasting glucose and random glucose. The ADA defines fasting as no caloric intake for at least 8 hours. Fasting plasma glucose results between 100 to 125 mg/dL indicate increased risk for diabetes (prediabetes).Fasting plasma glucose results greater than or equal to 126 mg/dL meet the criteria for diagnosis of diabetes. In the absence of unequivocal hyperglycemia, results should be confirmed by repeat testing. In a patient with classic symptoms of hyperglycemia or hyperglycemic crisis, random plasma glucose results greater than or equal to 200 mg/dL meet the criteria for diagnosis of diabetes.Reference: Standards of Medical Care in Diabetes 2016, [place] [employer]. Diabetes Care. 2016.39(Suppl 1). Performed By: #### 2 4321-2 ####[facility] LABORATORYCLIA [id number] [place] [address] [place] Order Comment: Adelita austin Type: ARTERIAL BLOOD SPECIMENOrdering Facility: [facility] Address: [address] [place] [address] Performed By: #### A LLBG ####[facility]ORATORYCLIA [id number] [place] [address] [place] Basic metabolic 2000 panelon 01-06-2025 Anion gap [Moles/Vol] 16 mmol/L High 8-15 [facility] Comment on above: Order Comment: Speci men Type: BLOOD SPECIMENOrdering Facility: [facility] Address: [address] [place] [address] Performed By: #### 2 4321-2 ####[facility] LABORATORYCLIA [id number] [place] [address] [place] Calcium [Mass/Vol] 9.6 mg/dL Normal 8.5-10.2 [facility] Comment on above: Order Comment: Speci men Type: BLOOD SPECIMENOrdering Facility: [facility] Address: [address] [place] [address] Performed By: #### 2 4321-2 ####[facility] LABORATORYCLIA [id number] [place] [address] [place] Chloride [Moles/Vol] 108 mmol/L High 98-107 [facility] Comment on above: Order Comment: Speci men Type: BLOOD SPECIMENOrdering Facility: [facility] Address: [address] [place] [address] Performed By: #### 2 4321-2 ####[facility] LABORATORYCLIA [id number] [address] [place] CO2 [Moles/Vol] 15 mmol/L Low 22-30 [facility] Comment on above: Order Comment: Speci men Type: BLOOD SPECIMENOrdering Facility: [facility] Address: [address] [place] [address] Performed By: #### 2 4321-2 ####[facility] LABORATORYCLIA [id number] [place] [address] [place] Creatinine [Mass/Vol] 1.07 mg/dL High 0.58-0.96 [facility] Comment on above: Order Comment: Speci men Type: BLOOD SPECIMENOrdering Facility: [facility] Address: [address] [place] [address] Performed By: #### 2 4321-2 ####[facility] LABORATORYCLIA [id number] [address] Creatinine and Glomerular filtration rate.predicted panel (S/P/Bld) 51 mL/min/1.73m??? Low >=60 [facility] Comment on above: Order Comment: Speci men Type: BLOOD SPECIMENOrdering Facility: [facility] Address: [address] [place] [address] Result Comment: Ely mated Glomerular Filtration Rate (eGFR) is calculated using the 2020 CKD-EPI creatinine equation. This equation utilizes serum creatinine, sex, and age as parameters. The creatinine assay has traceable calibration to isotope dilution-mass spectrometry. Refer to KDIGO guidelines for clinical interpretation. In patients with unstable renal function, e.g. those with acute kidney injury, the eGFR may not accurately reflect actual GFR. Performed By: #### 2 4321-2 ####[facility] LABORATORYCLIA [id number] [place] [address] [place] Potassium [Moles/Vol] 5.2 mmol/L High 3.7-5.1 [facility] Comment on above: Order Comment: Speci men Type: BLOOD SPECIMENOrdering Facility: [facility] Address: [address] [place] [address] Performed By: #### 2 4321-2 ####[facility] LABORATORYCLIA [id number] [address] [place] [facility] Sodium [Moles/Vol] 139 mmol/L Normal 136-144 [facility] Comment on above: Order Comment: Speci men Type: BLOOD SPECIMENOrdering Facility: [facility] Address: [address] [place] [address] Performed By: #### 2 4321-2 ####[facility] LABORATORYCLIA [id number] [address] [place] Urea nitrogen [Mass/Vol] 13 mg/dL Normal 7-21 [facility] Comment on above: Order Comment: Speci men Type: BLOOD SPECIMENOrdering Facility: [facility] Address: [address] [place] [address] Performed By: #### 2 4321-2 ####[facility] LABORATORYCLIA [id number] [address] [place] Anion gap [Moles/Vol] 14 mmol/L Normal 8-15 [facility] Comment on above: Order Comment: Speci men Type: BLOOD SPECIMENOrdering Facility: [facility] Address: [address] [place] [address] Performed By: #### 1 9123-9, 2777-1, 77038-8 ####[facility]ORATORYCLIA [id number] [address] [place] Calcium [Mass/Vol] 7.7 mg/dL Low 8.5-10.2 [facility] Comment on above: Order Comment: Speci men Type: BLOOD SPECIMENOrdering Facility: [facility] Address: [address] [place] [address] Performed By: #### 1 9123-9, 2771, 49953-5 ####[facility] LABORATORYCLIA [id number] [place] [address] [place] Chloride [Moles/Vol] 110 mmol/L High 98-107 [facility] Comment on above: Order Comment: Speci men Type: BLOOD SPECIMENOrdering Facility: [facility] Address: [address] [place] [address] Performed By: #### 1 9123-9, 27704-11, 70439-5 ####[facility]ORATORYCLIA [id number] [address] [place] CO2 [Moles/Vol] 18 mmol/L Low 22-30 [facility] Comment on above: Order Comment: Speci men Type: BLOOD SPECIMENOrdering Facility: [facility] Address: [address] [place] [address] Performed By: #### 1 9123-9, 2776-10, ####[facility] LABORATORYCLIA [id number] [address] [place] Creatinine [Mass/Vol] 0.84 mg/dL Normal 0.58-0.96 [facility] Comment on above: Order Comment: Speci men Type: BLOOD SPECIMENOrdering Facility: [facility] Address: [address] [place] [address] Performed By: #### 1 9123-9, 27704-11, 81156-6 ####[facility] LABORATORYCLIA [id number] [address] Creatinine and Glomerular filtration rate.predicted panel (S/P/Bld) 68 mL/min/1.73m??? Normal >=60 [facility] Comment on above: Order Comment: Speci men Type: BLOOD SPECIMENOrdering Facility: [facility] Address: [address] [place] [address] Result Comment: Ely mated Glomerular Filtration Rate (eGFR) is calculated using the 2020 CKD-EPI creatinine equation. This equation utilizes serum creatinine, sex, and age as parameters. The creatinine assay has traceable calibration to isotope dilution-mass spectrometry. Refer to KDIGO guidelines for clinical interpretation. In patients with unstable renal function, e.g. those with acute kidney injury, the eGFR may not accurately reflect actual GFR. Performed By: #### 1 9123-9, 2777-1, 60537-7 ####[facility] LABORATORYCLIA [id number] [place] [address] [place] Glucose [Mass/Vol] 192 mg/dL High 74-99 [facility] Comment on above: Order Comment: Adelita austin Type: BLOOD SPECIMENOrdering Facility: [facility] Address: [address] [place] [address] Result Comment: The [place] Diabetes Association (ADA) provides guidance for cutoff values for fasting glucose and random glucose. The ADA defines fasting as no caloric intake for at least 8 hours. Fasting plasma glucose results between 100 to 125 mg/dL indicate increased risk for diabetes (prediabetes).Fasting plasma glucose results greater than or equal to 126 mg/dL meet the criteria for diagnosis of diabetes. In the absence of unequivocal hyperglycemia, results should be confirmed by repeat testing. In a patient with classic symptoms of hyperglycemia or hyperglycemic crisis, random plasma glucose results greater than or equal to 200 mg/dL meet the criteria for diagnosis of diabetes.Reference: Standards of Medical Care in Diabetes 2016, [place] [employer]. Diabetes Care. 2016.39(Suppl 1). Performed By: #### 1 9123-9, 2777-1, 14152-3 ####[facility] LABORATORYCLIA [id number] [place] [id number] [place] Sodium [Moles/Vol] 142 mmol/L Normal 136-144 [facility] Comment on above: Order Comment: Adelita austin Type: BLOOD SPECIMENOrdering Facility: [facility] Address: [address] [place] [address] Performed By: #### 1 9123-9, 2777-1, 42093-0 ####[facility] LABORATORYCLIA [id number] [place] [address] [place] Urea nitrogen [Mass/Vol] 11 mg/dL Normal 7-21 [facility] Comment on above: Order Comment: Speci men Type: BLOOD SPECIMENOrdering Facility: [facility] Address: [address] [place] [address] Performed By: #### 1 9123-9, 2777-1, 56646-8 ####[facility] LABORATORYCLIA [id number] [place] [address] [place] Basophil percentageOrdered B y: Fredy Freeman on 01-06-2025 Basophils/100 WBC (Bld) 0.3 % 0-1 [facility] CBC W Auto Differential pane l (Bld)on 01-06-2025 Basophils (Bld) [#/Vol] 0.11 10*3/uL High <0.11 [facility] Comment on above: Order Comment: Speci men Type: BLOOD SPECIMENOrdering Facility: [facility] Address: [address] [place] [address] Performed By: #### 5 7021-8, 73667-2 ####[facility]ORATORYCLIA [id number] [address] [place] Basophils/100 WBC (Bld) 0.5 % Normal A [facility] Comment on above: Order Comment: Speci men Type: BLOOD SPECIMENOrdering Facility: [facility] Address: [address] [place] [address] Performed By: #### 5 7021-8, 53927-6 ####[facility] LABORATORYCLIA [id number] [place] [address] [place] Eosinophils (Bld) [#/Vol] 10*3/uL Normal <0.46 [facility] Comment on above: Order Comment: Speci men Type: BLOOD SPECIMENOrdering Facility: [facility] Address: [facility] [place] [address] Performed By: #### 5 7021-8, 30876-9 ####[facility]ATORYCLIA [id number] [place] [address] [place] Eosinophils/100 WBC (Bld) 0.0 % Normal [facility] Comment on above: Order Comment: Speci men Type: BLOOD SPECIMENOrdering Facility: [facility] Address: [address] [place] [address] Performed By: #### 5 7021-8, 57914-9 ####[facility]ORATORYCLIA [id number] [place] [address] [place] Immature granulocytes (Bld) [#/Vol] 0.62 10*3/uL High <0.10 [facility] Comment on above: Order Comment: Speci men Type: BLOOD SPECIMENOrdering Facility: [facility] Address: [address] [place] [address] Performed By: #### 5 7021-8, 04077-8 ####[facility]ORATORYCLIA [id number] [place] [address] [place] Immature granulocytes/100 WBC (Bld) 2.7 % Normal [facility] Comment on above: Order Comment: Speci men Type: BLOOD SPECIMENOrdering Facility: [facility] Address: [address] [place] [address] Performed By: #### 5 7021-8, 32148-6 ####[facility]ORATORYCLIA [id number] [place] [id number] [place] Lymphocytes (Bld) [#/Vol] 1.42 10*3/uL Normal 1.00-4.00 [facility] Comment on above: Order Comment: Speci men Type: BLOOD SPECIMENOrdering Facility: [facility] Address: [address] [place] [address] Performed By: #### 5 7021-8, 30041-2 ####[facility]ATORYCLIA [id number] [place] [id number] [place] Lymphocytes/100 WBC (Bld) 6.1 % Normal [facility] Comment on above: Order Comment: Speci men Type: BLOOD SPECIMENOrdering Facility: [facility] Address: [address] [place] [address] Performed By: #### 5 7021-8, 75478-3 ####[facility]ORATORYCLIA [id number] [place] [address] [place] Monocytes (Bld) [#/Vol] 1.49 10*3/uL High <0.87 [facility] Comment on above: Order Comment: Speci men Type: BLOOD SPECIMENOrdering Facility: [facility] Address: [address] [place] [address] Performed By: #### 5 7021-8, 11377-8 ####[facility]ORATORYCLIA [id number] [address] [place] Monocytes/100 WBC (Bld) 6.4 % Normal A [facility] Comment on above: Order Comment: Speci men Type: BLOOD SPECIMENOrdering Facility: [facility] Address: [address] [place] [address] Performed By: #### 5 7021-8, 73847-1 ####[facility]ATORYCLIA [id number] [place] [address] [place] Neutrophils (Bld) [#/Vol] 19.58 10*3/uL High 1.45-7.50 [facility] Comment on above: Order Comment: Speci men Type: BLOOD SPECIMENOrdering Facility: [facility] Address: [address] [place] [address] Performed By: #### 5 7021-8, 13220-9 ####[facility]ATORYCLIA [id number] [place] [id number] [place] Neutrophils/100 WBC (Bld) 84.3 % Normal [facility] Comment on above: Order Comment: Speci men Type: BLOOD SPECIMENOrdering Facility: [facility] Address: [address] [place] [address] Performed By: #### 5 7021-8, 25266-1 ####[facility]ORATORYCLIA [id number] [address] CBC panel Auto (Bld)on 01-06 Erythrocyte distribution width (RBC) [Ratio] 15.3 % High 11.5-15.0 [facility] Comment on above: Order Comment: Speci men Type: BLOOD SPECIMENOrdering Facility: [facility] Address: [address] [place] [address] Performed By: #### 5 8410-2 ####[facility] LABORATORYCLIA [id number] [address] Hematocrit (Bld) [Volume fraction] 38.6 % Normal 36.0-46.0 [facility] Comment on above: Order Comment: Speci men Type: BLOOD SPECIMENOrdering Facility: [facility] Address: [address] [place] [address] Performed By: #### 5 8410-2 ####[facility] LABORATORYCLIA [id number] [address] Hemoglobin (Bld) [Mass/Vol] 13.1 g/dL Normal 11.5-15.5 [facility] Comment on above: Order Comment: Speci men Type: BLOOD SPECIMENOrdering Facility: [facility] Address: [address] [place] [address] Performed By: #### 5 8410-2 ####[facility] LABORATORYCLIA [id number] [address] MCH (RBC) [Entitic mass] 29.2 pg Normal 26.0-34.0 [facility] Comment on above: Order Comment: Speci men Type: BLOOD SPECIMENOrdering Facility: [facility] Address: [address] [place] [address] Performed By: #### 5 8410-2 ####[facility] LABORATORYCLIA [id number] [address] [place] MCHC (RBC) [Mass/Vol] 33.9 g/dL Normal 30.5-36.0 [facility] Comment on above: Order Comment: Speci men Type: BLOOD SPECIMENOrdering Facility: [facility] Address: [address] [place] [address] Performed By: #### 5 8410-2 ####[facility] LABORATORYCLIA [id number] [address] MCV (RBC) [Entitic vol] 86.2 fL Normal 80.0-100.[address] [facility] Comment on above: Order Comment: Speci men Type: BLOOD SPECIMENOrdering Facility: [facility] Address: [address] [place] [address] Performed By: #### 5 8410-2 ####[facility] LABORATORYCLIA [id number] [address] Nucleated RBC (Bld) [#/Vol] 0.02 10*3/uL High <0.01 [facility] Comment on above: Order Comment: Speci men Type: BLOOD SPECIMENOrdering Facility: [facility] Address: [address] [place] [address] Performed By: #### 5 8410-2 ####[facility] LABORATORYCLIA [id number] [address] Platelet mean volume (Bld) [Entitic vol] 9.8 fL Normal 9.0-12.7 [facility] Comment on above: Order Comment: Speci men Type: BLOOD SPECIMENOrdering Facility: [facility] Address: [address] [place] [address] Performed By: #### 5 8410-2 ####[facility] LABORATORYCLIA [id number] [address] Platelets (Bld) [#/Vol] 202 10*3/uL Normal 150-400 [facility] Comment on above: Order Comment: Speci men Type: BLOOD SPECIMENOrdering Facility: [facility] Address: [address] [place] [address] Performed By: #### 5 8410-2 ####[facility] LABORATORYCLIA [id number] [place] [address] [place] RBC (Bld) [#/Vol] 4.48 10*6/uL Normal 3.90-5.20 [facility] Comment on above: Order Comment: Speci men Type: BLOOD SPECIMENOrdering Facility: [facility] Address: [address] [place] [address] Performed By: #### 5 8410-2 ####[facility] LABORATORYCLIA [id number] [place] [address] [place] WBC (Bld) [#/Vol] 29.29 10*3/uL High 3.70-11.00 [facility] Comment on above: Order Comment: Speci men Type: BLOOD SPECIMENOrdering Facility: [facility] Address: [address] [place] [address] Performed By: #### 5 8410-2 ####[facility] LABORATORYCLIA [id number] [address] STATES OF [facility] Erythrocyte distribution width (RBC) [Ratio] 14.9 % Normal 11.5-15.0 [facility] Comment on above: Order Comment: Speci men Type: BLOOD SPECIMENOrdering Facility: [facility] Address: [address] [place] [address] Performed By: #### 5 8410-2 ####[facility] LABORATORYCLIA [id number] [address] OF [facility] Hematocrit (Bld) [Volume fraction] 31.9 % Low 36.0-46.0 [facility] Comment on above: Order Comment: Speci men Type: BLOOD SPECIMENOrdering Facility: [facility] Address: [address] [place] [address] Performed By: #### 5 8410-2 ####[facility] LABORATORYCLIA [id number] [address] [place] Hemoglobin (Bld) [Mass/Vol] 10.9 g/dL Low 11.5-15.5 [facility] Comment on above: Order Comment: Speci men Type: BLOOD SPECIMENOrdering Facility: [facility] Address: [address] [place] [address] Performed By: #### 5 8410-2 ####[facility] LABORATORYCLIA [id number] [address] MCH (RBC) [Entitic mass] 29.8 pg Normal 26.0-34.0 [facility] Comment on above: Order Comment: Speci men Type: BLOOD SPECIMENOrdering Facility: [facility] Address: [address] [place] [address] Performed By: #### 5 8410-2 ####[facility] LABORATORYCLIA [id number] [address] MCHC (RBC) [Mass/Vol] 34.2 g/dL Normal 30.5-36.0 [facility] Comment on above: Order Comment: Speci men Type: BLOOD SPECIMENOrdering Facility: [facility] Address: [address] [place] [address] Performed By: #### 5 8410-2 ####[facility] LABORATORYCLIA [id number] [address] MCV (RBC) [Entitic vol] 87.2 fL Normal 80.0-100.[address] [facility] Comment on above: Order Comment: Speci men Type: BLOOD SPECIMENOrdering Facility: [facility] Address: [address] [place] [address] Performed By: #### 5 8410-2 ####[facility] LABORATORYCLIA [id number] [address] Nucleated RBC (Bld) [#/Vol] 10*3/uL Normal <0.01 [facility] Comment on above: Order Comment: Speci men Type: BLOOD SPECIMENOrdering Facility: [facility] Address: [address] [place] [address] Performed By: #### 5 8410-2 ####[facility] LABORATORYCLIA [id number] [address] Platelet mean volume (Bld) [Entitic vol] 9.3 fL Normal 9.0-12.7 [facility] Comment on above: Order Comment: Speci men Type: BLOOD SPECIMENOrdering Facility: [facility] Address: [address] [place] [address] Performed By: #### 5 8410-2 ####[facility] LABORATORYCLIA [id number] [address] OF [facility] Platelets (Bld) [#/Vol] 149 10*3/uL Low 150-400 [facility] Comment on above: Order Comment: Speci men Type: BLOOD SPECIMENOrdering Facility: [facility] Address: [address] [place] [address] Performed By: #### 5 8410-2 ####[facility] LABORATORYCLIA [id number] [address] [place] RBC (Bld) [#/Vol] 3.66 10*6/uL Low 3.90-5.20 [facility] Comment on above: Order Comment: Speci men Type: BLOOD SPECIMENOrdering Facility: [facility] Address: [address] [place] [address] Performed By: #### 5 8410-2 ####[facility] LABORATORYCLIA [id number] [address] OF [facility] WBC (Bld) [#/Vol] 21.23 10*3/uL High 3.70-11.00 [facility] Comment on above: Order Comment: Speci men Type: BLOOD SPECIMENOrdering Facility: [facility] Address: [address] [place] [address] Performed By: #### 5 8410-2 ####[facility] LABORATORYCLIA [id number] [address] Erythrocyte distribution width (RBC) [Ratio] 16.2 % High 11.5-15.0 [facility] Comment on above: Order Comment: Speci men Type: BLOOD SPECIMENOrdering Facility: [facility] Address: [address] [place] [address] Performed By: #### 5 7021-8, 68798-7 ####[facility] LABORATORYCLIA [id number] [address] OF [facility] Hematocrit (Bld) [Volume fraction] 39.9 % Normal 36.0-46.0 [facility] Comment on above: Order Comment: Speci men Type: BLOOD SPECIMENOrdering Facility: [facility] Address: [address] [place] [address] Performed By: #### 5 7021-8, 66624-8 ####[facility] LABORATORYCLIA [id number] [address] Hemoglobin (Bld) [Mass/Vol] 12.6 g/dL Normal 11.5-15.5 [facility] Comment on above: Order Comment: Speci men Type: BLOOD SPECIMENOrdering Facility: [facility] Address: [address] [place] [address] Performed By: #### 5 7021-8, 41485-9 ####[facility] LABORATORYCLIA [id number] [address] MCH (RBC) [Entitic mass] 28.7 pg Normal 26.0-34.0 [facility] Comment on above: Order Comment: Speci men Type: BLOOD SPECIMENOrdering Facility: [facility] Address: [address] [place] [address] Performed By: #### 5 7021-8, 73314-2 ####[facility] LABORATORYCLIA [id number] [address] [place] MCV (RBC) [Entitic vol] 90.9 fL Normal 80.0-100.0 [facility] Comment on above: Order Comment: Speci men Type: BLOOD SPECIMENOrdering Facility: [facility] Address: [address] [place] [address] Performed By: #### 5 7021-8, 32312-0 ####[facility] LABORATORYCLIA [id number] [address] Nucleated RBC (Bld) [#/Vol] 10*3/uL Normal <0.01 [facility] Comment on above: Order Comment: Speci men Type: BLOOD SPECIMENOrdering Facility: [facility] Address: [address] [place] [address] Performed By: #### 5 7021-8, 21847-3 ####[facility] LABORATORYCLIA [id number] [place] [address] [place] Platelet mean volume (Bld) [Entitic vol] 9.3 fL Normal 9.0-12.7 [facility] Comment on above: Order Comment: Speci men Type: BLOOD SPECIMENOrdering Facility: [facility] Address: [address] [place] [address] Performed By: #### 5 7021-8, 54073-3 ####[facility] LABORATORYCLIA [id number] [place] [address] [place] Platelets (Bld) [#/Vol] 234 10*3/uL Normal 150-400 [facility] Comment on above: Order Comment: Speci men Type: BLOOD SPECIMENOrdering Facility: [facility] Address: [address] [place] [address] Performed By: #### 5 7021-8, 15487-5 ####[facility] LABORATORYCLIA [id number] [place] [address] [place] RBC (Bld) [#/Vol] 4.39 10*6/uL Normal 3.90-5.20 [facility] Comment on above: Order Comment: Speci men Type: BLOOD SPECIMENOrdering Facility: [facility] Address: [address] [place] [address] Performed By: #### 5 7021-8, 86470-6 ####[facility] LABORATORYCLIA [id number] [place] [address] [place] WBC (Bld) [#/Vol] 23.23 10*3/uL High 3.70-11.00 [facility] Comment on above: Order Comment: Speci men Type: BLOOD SPECIMENOrdering Facility: [facility] Address: [address] [place] [address] Performed By: #### 5 7021-8, 55939-2 ####[facility] LABORATORYCLIA [id number] [place] [id number] [facility] CK SerPl-cCncon 01-06-2025 CK [Catalytic activity/Vol] 121 U/L Normal 42-196 [facility] Comment on above: Order Comment: Speci men Type: BLOOD SPECIMENOrdering Facility: [facility] Address: [address] [place] [address] Performed By: #### 2 157-6 ####[facility] LABORATORYCLIA [id number] [place] [address] [facility] CNCRITCRon 01-06-2025 CNCRITCR Critical Care Transport (CCT) MARY CRANE ([id number]) 1940 F TXT Date Time Provider Department 01/06/25 ESVIN RON CCT During your visit today, we recorded the following information about you: Esvin Ron APRN.GROCERY BAGGER 01/10/2025 8:46 PM Addendum [facility] CRITICAL CARE TRANSPORT NOTE Patient Name: Mary Crane : 1940 Service Date: January 06, 2025 Referring Facility: [facility] Accepting Facility: [facility] Referring Physician: Lydia Accepting Physician: Lizabeth SUBJECTIVE/CHIEF COMPLAINT: abdominal pain REASON FOR TRANSPORT: Higher level of trauma care needed than available at referring facility History of Present Illness/Injury: Known to CCT team at time of given care and summarized through review of available medical records, patient/family interview and from referring physician and staff. Mary Crane is a 84 year old female with a past history known to our team at time of transport, significant for Afib (on eliquis), HTN, RA, and CKD who presented to [facility] ED s/p pre-hospital stroke alert. Per report, patient LKW was 2200. Patient called family around 0200 stating she did not feel well. EMS was called and when they arrived, patient was noted to have a left facial droop and unable to move both of her arms so a stroke alert was called. It was also noted that the shower curtain in the bathroom had been pulled down and patient had a history of recent falls. Patient c/o severe left sided abdominal pain with radiation to her back. CT brain showed no intracranial hemorrhage or LVO, but did show a lesion concerning for a meningioma. Chest CTA showed small to moderate pleural effusion /hemothorax, large hemoperitoneum with signs of active extravasation from a splenic laceration. Patients last dose of eliquis was 2200 on 01/05. Patient given Balfaxar (PCC) for reversal. Patient was hypotensive as low as the 60's in the ED. Her hemoglobin was initially reported as 1.8 but when official results were posted, it was 5.0. Patient was given 3 units of emergency release blood in setting of hypotension and active bleed. BP improved, Patient presenting stroke symptoms resolved. She was also ordered calcium gluconate. She continues to endorse abdominal pain, but no SOB or nausea. At this time, the physician managing the patient requested transfer to the [facility] for tertiary and/or quaternary trauma services unavailable at the referring facility. The physician managing the patient requested the [facility] Critical Care Transport Team transport and treat the patient for the purpose of tertiary care, evaluation, and management of her emergent medical condition. Patient condition at time of exam was: acutely ill and critically ill. Due to the unique circumstances of the patient, it was determined that this was the closest, most appropriate facility by referring physician. The physician managing the patient requested the [facility] Critical Care Transport Team transport and treat the patient for the purpose of tertiary care, evaluation, and management of her traumatic condition(s). Air medical transport was requested to reduce the [id number] time, 15 minutes by air vs. approximately 41 minutes by ground, with the potential for increased ground transport time secondary to: distance between facilities and the patient's condition requiring an emergent procedure or evaluation not available at the referring facility ROS: A complete review of systems was performed and is negative except as noted in [place] PAST MEDICAL HISTORY: PAST MEDICAL HISTORY Diagnosis Date Benign neoplasm of colon Chronic kidney disease 02/09/2015 Diverticulosis of colon (without mention of hemorrhage) Incisional hernia 07/06/2015 Internal hemorrhoids without mention of complication Rheumatoid arthritis(714.0) Sicca syndrome (HCC) Unspecified essential hypertension PAST SURGICAL HISTORY: PAST SURGICAL HISTORY Procedure Laterality Date CATARACT EXTRACTION HX 10/12/2004 LAPAROSCOPY SURG CHOLECYSTECTOMY 02/20/2015 NEUROPLASTY AND/TRANSPOS MEDIAN NRV CARPAL TUNNE 02/12/2006 Carpal tunnel decomp Left NEUROPLASTY AND/TRANSPOS MEDIAN NRV CARPAL TUNNE 02/27/2006 Carpal tunnel decomp Right hemorrhoidectomy , bladder, and umbilical hernia repair bladder suspension REPAIR FIRST ABDOMINAL WALL HERNIA 07/06/2015 with mesh VAGINAL HYSTERECTOMY UTERUS 250 GM/< 10/12/1983 Hysterectomy, vaginal and bladder tacked up ALLERGIES: Floxin [Ofloxacin], Bumex [Bumetanide], Hydrochlorothiazide, Keflex [Cephalexin], Naproxen, Norvasc [Amlodipine Besylate], Penicillins, Proctosol [Hydrocortisone Acetate], Sulfa (Sulfonamide Antibiotics), Colchicine, and Minoxidil SOCIAL HISTORY: Social History Tobacco Use Smoking status (more content not included)... [facility]25 CONSULT Normal [facility] CONSULT Normal [facility] CONSULT PROGon 01-06-2025 CONSULT PROG Normal [facility] CT ABD/PEL W IVCONon 025 CT ABD/PEL W IVCON Normal [facility] CT BRAIN WO IVCONon 01-07-[address] BRAIN WO IVCON Normal [facility] CT CERVICAL SPINE WO IVCONon 01-06-2025 CT CERVICAL SPINE WO IVCON Normal [facility] CTA Chest W/WO Contraston CTA Chest W/WO Contrast [facility] Imaging Services [address] [place] [address] CTA Chest W/WO Contrast MR#: [id number] Acct: [id number] Name: MARY CRANE Rep #: [id number] : 1940 F 84 From: [facility] MD PCP: Dr. Atul Harvey, DO Status: REG ER Study: CTA Chest W/WO Contrast Date of Exam: 01/06/25 Exam# [id number] Ordering Dr: Fredy Freeman DO PROCEDURE: CTA CHEST W/WO CONTRAST 01/06/2025 REASON FOR EXAM: PAIN TECHNIQUE: CTA of the chest with coronal and sagittal and MIP reformatted images CONTRAST: 97 cc Isovue 370 One or more dose reduction techniques were used (e.g., Automated exposure control, adjustment of the mA and/or kV according to patient size, use of iterative reconstruction technique). RADIATION DOSE SUMMARY: CTDlvol: 17.63 mGy DLP: 935.09 mGycm COMPARISON: 10/12/2024 FINDINGS: Ectatic thoracic aorta appears within limits with atherosclerotic changes at the arch and descending thoracic aorta. Ascending aorta measures 4 cm. Descending 2.5 cm. Origin of the right subclavian artery appears within limits. No thoracic aortic dissection. Large appearance of the central pulmonary arteries can be seen with pulmonary hypertension, nonspecific. Cardiomegaly. No pericardial effusion. There is now a small to moderate posterior layering left pleural effusion possible hemothorax. Trace right pleural fluid. Subjacent partial passive collapse, atelectasis left lower lobe. Atelectasis at the lingula and right lower lobe. No pneumothorax. The central airways appear patent. Nonspecific sclerotic focus at the posterior inferior corner of T3 is again seen, unchanged. Images of the upper abdomen with large amount of hemoperitoneum greater on the left side with a crescentic high density along the peripheral aspect of the spleen and blush of contrast suggested posteriorly for example axial 58 concerning for active bleeding. CT/CTA Chest W/WO Contrast IMPRESSION: There is now a small to moderate posterior layering left pleural effusion possible hemothorax. Trace right pleural fluid. Subjacent partial passive collapse, atelectasis left lower lobe. Atelectasis at the lingula and right lower lobe. No pneumothorax. Images of the upper abdomen with large amount of hemoperitoneum greater on the left side with a crescentic high density along the peripheral aspect of the spleen and blush of contrast suggested posteriorly for example axial 58 concerning for active bleeding. Reading Location: [id number] CC: Dr. Atul Harvey DO; Dr. Fredy Freeman DO Public Health Analyst: Signed Normal [facility] Calcium.ionized [Moles/Vol]o n 01-06-2025 Calcium.ionized (BldV) [Mass/Vol] 1.09 mmol/L Normal 1.08-1.30 [facility] Comment on above: Order Comment: Speci men Type: BLOOD SPECIMENOrdering Facility: [facility] Address: [address] [place] [address] Performed By: #### 1 995-0 ####[facility] LABORATORYCLIA [id number] [address] Calcium.ionized adjusted to pH 7.4 (Bld) [Moles/Vol] 1.08 mmol/L Normal 1.08-1.30 [facility] Comment on above: Order Comment: Speci men Type: BLOOD SPECIMENOrdering Facility: [facility] Address: [address] [place] [address] Performed By: #### 1 995-0 ####[facility] LABORATORYCLIA [id number] [address] [place] Carbon dioxide, total [Moles /volume] in Central venous bloodOrdered By: Fredy Freeman on 01-06-2025 CO2 [Moles/Vol] 10.5 mmol/L Low 21.0-32.0 [facility] Chloride assayOrdered By: Seamus Freeman on 01-06-2025 Chloride [Moles/Vol] 97 mmol/L Low 98-108 [facility] Comment on above: Order Comment: Speci men Type: BLOOD SPECIMENOrdering Facility: [facility] Address: [address] [place] [address] Performed By: #### 3 040-3, 80661-5 ####[facility] LABORATORYCLIA [id number] [place] [address] [place] Comprehensive metabolic 2000 panelon 01-06-2025 Albumin [Mass/Vol] 2.8 g/dL Low 3.9-4.9 [facility] Comment on above: Order Comment: Speci men Type: BLOOD SPECIMENOrdering Facility: [facility] Address: [address] [place], [place] [address] [address] Performed By: #### 3 -3, 88900-0 ####[facility] LABORATORYCLIA [id number] [address] [place] ALP [Catalytic activity/Vol] 92 U/L Normal 34-123 [facility] Comment on above: Order Comment: Speci men Type: BLOOD SPECIMENOrdering Facility: [facility] Address: [address] [place] [address] Performed By: #### 3 -3, ####[facility]ORATORYCLIA [id number] [address] [place] ALT With P-5'-P [Catalytic activity/Vol] 19 U/L Normal 7-38 [facility] Comment on above: Order Comment: Speci men Type: BLOOD SPECIMENOrdering Facility: [facility] Address: [address] [place] [address] Performed By: #### 3 3, ####[facility] LABORATORYCLIA [id number] [address] [place] Anion gap [Moles/Vol] 17 mmol/L High 8-15 [facility] Comment on above: Order Comment: Speci men Type: BLOOD SPECIMENOrdering Facility: [facility] Address: [facility] [place][note 2] [place] [address] Performed By: #### 3 3, ####[facility]ORATORYCLIA [id number] [address] [place] AST With P-5'-P [Catalytic activity/Vol] 26 U/L Normal 13-35 [facility] Comment on above: Order Comment: Speci men Type: BLOOD SPECIMENOrdering Facility: [facility] Address: [address] [place] [address] [place] [address] Performed By: #### 3 040-3, 02329-9 ####[facility] LABORATORYCLIA [id number] [address] [place] Bilirubin [Mass/Vol] 1.1 mg/dL Normal 0.2-1.3 [facility] Comment on above: Order Comment: Speci men Type: BLOOD SPECIMENOrdering Facility: [facility] Address: [address] [place] [address] Performed By: #### 3 040-3, 78604-3 ####[facility] LABORATORYCLIA [id number] [address] STATES OF [facility] Calcium [Mass/Vol] 9.2 mg/dL Normal 8.5-10.2 [facility] Comment on above: Order Comment: Speci men Type: BLOOD SPECIMENOrdering Facility: [facility] Address: [address] [place] [address] Performed By: #### 3 040-3, ####[facility] LABORATORYCLIA [id number] [address] [place] CO2 [Moles/Vol] 19 mmol/L Low 22-30 [facility] Comment on above: Order Comment: Speci men Type: BLOOD SPECIMENOrdering Facility: [facility] Address: [address] [place] [address] Performed By: #### 3 040-3, 03432-0 ####[facility] LABORATORYCLIA [id number] [address] [place] Creatinine [Mass/Vol] 1.12 mg/dL High 0.58-0.96 [facility] Comment on above: Order Comment: Speci men Type: BLOOD SPECIMENOrdering Facility: [facility] Address: [address] [place] [address] Performed By: #### 3 040-3, ####[facility] LABORATORYCLIA [id number] [address] Creatinine and Glomerular filtration rate.predicted panel (S/P/Bld) 48 mL/min/1.73m??? Low >=60 [facility] Comment on above: Order Comment: Speci men Type: BLOOD SPECIMENOrdering Facility: [facility] Address: [address] [place] [address] Result Comment: Ely mated Glomerular Filtration Rate (eGFR) is calculated using the 2020 CKD-EPI creatinine equation. This equation utilizes serum creatinine, sex, and age as parameters. The creatinine assay has traceable calibration to isotope dilution-mass spectrometry. Refer to KDIGO guidelines for clinical interpretation. In patients with unstable renal function, e.g. those with acute kidney injury, the eGFR may not accurately reflect actual GFR. Performed By: #### 3 040-3, 39656-3 ####[facility] LABORATORYCLIA [id number] [place] [address] [place] Glucose [Mass/Vol] 234 mg/dL High 74-99 [facility] Comment on above: Order Comment: Adelita austin Type: BLOOD SPECIMENOrdering Facility: [facility] Address: [address] [place] [address] Result Comment: The [place] Diabetes Association (ADA) provides guidance for cutoff values for fasting glucose and random glucose. The ADA defines fasting as no caloric intake for at least 8 hours. Fasting plasma glucose results between 100 to 125 mg/dL indicate increased risk for diabetes (prediabetes).Fasting plasma glucose results greater than or equal to 126 mg/dL meet the criteria for diagnosis of diabetes. In the absence of unequivocal hyperglycemia, results should be confirmed by repeat testing. In a patient with classic symptoms of hyperglycemia or hyperglycemic crisis, random plasma glucose results greater than or equal to 200 mg/dL meet the criteria for diagnosis of diabetes.Reference: Standards of Medical Care in Diabetes 2016, [place] [employer] Association. Diabetes Care. 2016.39(Suppl 1). Performed By: #### 3 040-3, 93510-6 ####[facility] LABORATORYCLIA [id number] [place] [address] [place] Potassium [Moles/Vol] 4.1 mmol/L Normal 3.7-5.1 [facility] Comment on above: Order Comment: Adelita austin Type: BLOOD SPECIMENOrdering Facility: [facility] Address: [address] [place] [address] Performed By: #### 3 040-3, 33208-8 ####[facility] LABORATORYCLIA [id number] [place] [address] [place] Protein [Mass/Vol] 5.7 g/dL Low 6.3-8.0 [facility] Comment on above: Order Comment: Speci men Type: BLOOD SPECIMENOrdering Facility: [facility] Address: [address] [place] [address] Performed By: #### 3 040-3, ####[facility]ORATORYCLIA [id number] [address] [place] Sodium [Moles/Vol] 133 mmol/L Low 136-144 [facility] Comment on above: Order Comment: Speci men Type: BLOOD SPECIMENOrdering Facility: [facility] Address: [address] [place] [address] Performed By: #### 3 040-3, 56266-4 ####[facility]ORATORYCLIA [id number] [address] Urea nitrogen [Mass/Vol] 13 mg/dL Normal 7-21 [facility] Comment on above: Order Comment: Speci men Type: BLOOD SPECIMENOrdering Facility: [facility] Address: [address] [place] [address] Performed By: #### 3 040-3, 01280-3 ####[facility]ORATORYCLIA [id number] [address] ED NOTEon 01-06-2025 ED NOTE HNO ID: [id number] Author: ERICKA STILES RN Service: Emergency Medicine Author Type: Registered Nurse Type: ED Notes Filed: 01/06/2025 06:21 Note Text: Calcium gluconate continued at 100 ml/hr Normal [facility] ED NOTE HNO ID: [id number] Author: ERICKA STILES RN Service: Emergency Medicine Author Type: Registered Nurse Type: ED Notes Filed: 01/06/2025 06:22 Note Text: OR notified Normal [facility] ED NOTE Normal [facility] ED NOTE HNO ID: [id number] Author: ERICKA STILES RN Service: Emergency Medicine Author Type: Registered Nurse Type: ED Notes Filed: 01/06/2025 06:06 Note Text: Blood bank notified just type and cross for now Normal [facility] ED NOTE HNO ID: [id number] Author: ERICKA STILES RN Service: Emergency Medicine Author Type: Registered Nurse Type: ED Notes Filed: 01/06/2025 06:11 Note Text: Pt to CT with nurse and residents at this time on awake overnight monitor, pulse ox and bp cuff Normal [facility] ED NOTE HNO ID: [id number] Author: ERICKA STILES RN Service: Emergency Medicine Author Type: Registered Nurse Type: ED Notes Filed: 01/06/2025 05:55 Note Text: C-spine tenderness, aspen placed at this time Normal [facility] ED PROV NOTEon 01-06-2025 ED PROV NOTE Normal [facility] Emergency Department Summary on 01-06-2025 Emergency Department Summary [facility] Medical Records Department [address] [place] [id number] Emergency Department Summary 01/06/25 MR#: [id number] Acct: [id number] Name: MARY CRANE Rep #: [id number] : 1940 84 From: Fredy Freeman DO PCP: Dr. Atul Harvey DO Status:DEP ER Location: ED ADDENDUM by Dr. Fredy Freeman DO on 01/06/25 at 0639 Critical care time 37 minutes 01/06/25 0639 Cosigner Signature (if applicable): cc: Dr. Atul Harvey DO * Signed ADDENDUM by Dr. Fredy Freeman DO on 01/06/25 at 0609 Official reads of the CT abdomen pelvis was reviewed after [employer] was leaving which showed heterogeneous area in the posterior spleen concerning for splenic laceration measuring 3 x 3.5 cm with adjacent high density area most concerning for active extravasation with active bleeding. [place] collection seen in the lateral spleen measuring 10 x 1.8 cm with concave deformity on the adjacent spleen most concerning for subcapsular hemorrhage. Large amount of high density fluid within the upper abdomen left greater than right about the spleen within the pelvis consistent with hemoperitoneum. Possible subtle nondisplaced fracture at the posterior left 10th rib. Patient's CTA of the chest reviewed and showed now a small to moderate posterior layering in the left pleural effusion possible hemothorax. Trace right pleural fluid. No pneumothorax noted. Atelectasis at the lingula and the right lower lobe. 01/06/25 0609 Cosigner Signature (if applicable): cc: Dr. Atul Harvey, * Signed HPI History of Present Illness Chief Complaint: Stroke Alert Narrative Narrative: Patient is a 84-year-old female with past medical history atrial fibrillation on Eliquis, chronic kidney disease stage III, rheumatoid arthritis, hypertension who presented to the emergency department via EMS prehospital as a stroke alert. Per EMS they are unsure when her last known well was. They noted that she was unable to move both of her arms and route and noted facial droop on the left side therefore they called a stroke alert prehospital. [facility] Medical History Atrial fibrillation Irregular heart beat Rheumatoid arthritis Chronic kidney disease, stage 3 Hypertension Home Medications ???Medication ???Instructions ???Recorded ???Last Taken ???Type allopurinol 100 mg tablet 100 mg PO DAILYCM gout 11/12/14 History furosemide 40 mg tablet 20 mg PO DAILY diuretic 11/12/14 U nknown History cholecalciferol (vitamin D3) 1,250 1,250 mcg PO QWEEK supplement 10/10/24 History mcg (50,000 unit) capsule duloxetine 30 mg capsule,delayed 30 mg PO QHS mood 10/12/24 Unknown History release folic acid 1 mg tablet 2 mg PO DAILY supplement 10/12/24 Unknown History levothyroxine 25 mcg tablet 25 mcg PO DAILY disorder of Unknown History thyroid gland potassium chloride 10 mEq 10 meq PO BID supplement 10/12/24 Unknown History tablet,extended release(part/cryst) (Klor-Con M) rosuvastatin 10 mg tablet 10 mg PO DAILY cholesterol 5 Unknown History apremilast 30 mg tablet (Otezla) 30 mg PO BID psoriasis 10/13/24 Un known History famotidine 20 mg tablet (Acid 20 mg PO DAILY gerd 10/13/24 Unkno wn History Controller) mecobalamin (vitamin B12) 1,000 1,000 mcg PO .OD supplement Unknown History mcg chewable tablet (B12 Active) vit C 250 mg-vit E 90 mg-zinc 40 1 tab PO DAILY supplement 10/13/24 Unknown History mg-copper 1 cn-vmzkeh-gneygj capsule (PreserVision AREDS-2) acetaminophen 325 mg tablet 650 mg (2 x 325 mg) PO Q6H PRN PRN 10/18/24 Unknown Rx Pain 1-10 Or Fever>100.7 #0 tabs apixaban 5 mg tablet (Eliquis) 5 mg PO BID #60 tabs 10/18/24 Unkn own Rx losartan 50 mg tablet 50 mg PO DAILY #60 tabs 10/18/24 U nknown Rx metoprolol tartrate 100 mg tablet 100 mg PO BID #60 tabs 10/18/24 U nknown Rx amiodarone 200 mg tablet 200 mg PO DAILY 01/06/25 Unknown H istory Allergy/AdvReac Type Severity Reaction Status Date / Time amlodipine besylate (From Allergy Other Verified 01/06/25 03:42 Norvasc) bumetanide (From Bumex) Allergy Other Verified 01/06/25 03:42 cephalexin monohydrate (From Allergy Hives Verified 01/06/25 03:42 Keflex) colchicine Allergy Hives Verified 01/06/25 03:42 hydrochlorothiazide Allergy Hives Verified 01/06/25 03:42 hydrocortisone acetate (From Allergy Other Verified 01/06/25 03:42 Hydrocortone Acetate) minoxidil Allergy Other Verified 01/06/25 03:42 naproxen Allergy Rash Verified 01/06/25 03:42 ofloxacin (From Floxin) Allergy Shortness Verified 01/06/25 03:42 of breath Penicillins (PCN) Allergy Rash Verified 01/06/25 03:42 Sulfa (Sulfonamide Allergy Rodrigo (more content not included)... Normal [facility] Eosinophil percentageOrdered By: Fredy Freeman on 01-06-2025 Eosinophils/100 WBC (Bld) 0.3 % 0-5 [facility] Erythrocyte distribution wid th ratioOrdered By: Fredy Freeman on 01-06-2025 Erythrocyte distribution width (RBC) [Ratio] 14.7 % High 11.6-14.6 [facility] Erythrocyte distribution wid th standard deviationOrdered By: Fredy Freeman on 01-06-2025 Erythrocyte distribution width (RBC) [Entitic vol] 50.6 fL High 35.1-43.9 [facility] Erythrocyte distribution width (RBC) [Ratio] 50.6 fl High 35.1-43.9 [facility] Estimation of creatinine cassie aranceOrdered By: Fredy Freeman on 01-06-2025 Estimated Creatinine Clearance Calc 34.48 ml/min Low 50-250 [facility] Ethanol SerPl-mCncon 025 Ethanol [Mass/Vol] mg/dL Normal <11 [facility] Comment on above: Order Comment: Speci men Type: BLOOD SPECIMENOrdering Facility: [facility] Address: [address] [place] [address] Performed By: #### 5 643-2 ####[facility] LABORATORYCLIA [id number] [place] [address] [place] Ethanol [Mass/Vol] mg/dL Normal <11 [facility] Comment on above: Order Comment: Speci men Type: BLOOD SPECIMENOrdering Facility: [facility] Address: [address] [place] [address] Performed By: #### 5 643-2 ####[facility] LABORATORYCLIA [id number] [place] [address] [place] GFR/1.73 sq M.predicted honorio g non-blacks MDRD (S/P/Bld) [Vol rate/Area]Ordered By: Fredy Freeman on 01-06-2025 Estimated GFR (MDRD) Non-Af Amer 48 Low >60 [facility] Comment on above: mL/min/1.73m2 CKD-EP I Creatinine Equation (2020) Glomerular filtration rate ( GFR) estimation/1.73 sq m using serum, plasma, or whole bOrdered By: Fredy Freeman on 01-06-2025 GFR/1.73 sq M.predicted among non-blacks MDRD (S/P/Bld) [Vol rate/Area] 48 mL/min/{1.73_m2} Low >60 [facility] Comment on above: mL/min/1.73m2 CKD-EP I Creatinine Equation (2020) HISTORY PHYSICALon HISTORY PHYSICAL Normal [facility] Hematocrit Auto (Bld) [Volum e fraction]Ordered By: Fredy Freeman on 01-06-2025 Hematocrit (Bld) [Volume fraction] 15.8 % Low 37-47 [facility] Hemoglobin measurementOrdere d By: Fredy Freeman on 01-06-2025 Hemoglobin (Bld) [Mass/Vol] 5.0 g/dL Low 12.0-15.0 [facility] Comment on above: CRITICAL VALUE ALFORD D TO [id number]/28/25 0432 Leland Sanchez.RESULTS READ BACK BY SAME. Immature granulocytes/100 WB C Auto (Bld)Ordered By: Fredy Freeman on 01-06-2025 Immature granulocytes/100 WBC (Bld) 2.800 % High 0.0-0.9 [facility] Comment on above: IG% - Immature Granu locytes (promyelocytes, myelocytes and metamyelocytes) > 1% indicates that a LEFT SHIFT is Present. International normalized rat io (INR) calculationOrdered By: Fredy Freeman on 01-06-2025 INR Coag (Bld) [Relative time] 2.1 {INR} [facility] L499.0042on 01-06-2025 Trop T High Sen Normal <=14 [facility] Comment on above: Result Comment: Canc elled via OM: Order cancelled - Patient discharged Performed By: #### L 499.0042 #### [facility] Laboratory [address] [place], [address] L499.0043on 01-06-2025 Trop T High Sen Normal <=14 [facility] Comment on above: Result Comment: Canc elled via OM: Order cancelled - Patient discharged Performed By: #### L 499.0043 #### [facility] [address] [place], [address] L501.4021on 01-06-2025 Trop T High Sen 15 ng/L High <=14 [facility] Comment on above: Performed By: #### L 100.0100, L300.3900, L300.4310, L500.2500, L501.4021 #### [facility] [address] [place], [place], [address] Lipase SerPl-cCncon 01-07-20 25 Lipase [Catalytic activity/Vol] 32 U/L Normal 16-61 [facility] Comment on above: Order Comment: Speci men Type: BLOOD SPECIMENOrdering Facility: [facility] Address: [address] [place] [address] Performed By: #### 3 040-3, 53586-6 ####[facility] LABORATORYCLIA [id number] [place] [address] [place] Lymphocytes Auto (Unsp spec) [#/Vol]Ordered By: Fredy Freeman on 01-06-2025 Lymphocytes (Bld) [#/Vol] 1.81 10*3/uL 0.83-4.51 [facility] Lymphocytes/100 WBC Auto (Un sp spec)Ordered By: Fredy Freeman on 01-06-2025 Lymphocytes/100 WBC (Bld) 13.8 % Low 19-41 [facility] MCV (mean corpuscular volume ) determinationOrdered By: Fredy Freeman on 01-06-2025 MCV (RBC) [Entitic vol] 95.2 fL 81-99 [facility] MRI BRAIN WO/W IVCONon 01-06 MRI BRAIN WO/W IVCON Normal [facility] Magnesium SerPl-mCncon 01-06 Magnesium [Mass/Vol] 1.4 mg/dL Low 1.7-2.3 [facility] Comment on above: Order Comment: Speci men Type: BLOOD SPECIMENOrdering Facility: [facility] Address: [address] [id number] Performed By: #### 1 9123-9, 2777-1, 84077-3 ####[facility] LABORATORYCLIA [id number] [address] [place] Mean corpuscular hemoglobin (MCH) determinationOrdered By: Fredy Freeman on 01-06-2025 MCH (RBC) [Entitic mass] 30.1 pg 27.0-32.0 [facility] Mean corpuscular hemoglobin concentration (MCHC) determinationOrdered By: Fredy Freeman on 01-06-2025 MCHC (RBC) [Mass/Vol] 31.6 g/dL Low 32-36 [facility] Comment on above: Order Comment: Adelita austin Type: BLOOD SPECIMENOrdering Facility: [facility] Address: [address] [place], [place] [address] Performed By: #### 5 7021-8, 12005-0 ####[facility] LABORATORYCLIA [id number] [place] [address] [facility] Mean platelet volume determi nationOrdered By: Fredy Freeman on 01-06-2025 Platelet mean volume (Bld) [Entitic vol] 10.7 fL 6.2-12.0 [facility] Monocyte percentageOrdered B y: Fredy Freeman on 01-06-2025 Monocytes/100 WBC (Bld) 6.3 % 0-10 [facility] Neutrophil percentageOrdered By: Fredy Freeman on 01-06-2025 Neutrophils/100 WBC (Bld) 76.5 % High 47-70 [facility] No Panel InformationOrdered By: Fredy Freeman on 01-06-2025 Troponin T High Sensitivity 15 ng/L High <14 [facility] Nucleated red blood cell per centageOrdered By: Fredy Freeman on 01-06-2025 Nucleated RBC/100 WBC (Bld) [Ratio] 0 % 0-5 [facility] OPERATIVE NOon 01-06-2025 OPERATIVE NO Normal [facility] PT panel Coag (PPP)on 2024 INR Coag (PPP) [Relative time] 1.1 {INR} Normal 0.9-1.3 [facility] Comment on above: Order Comment: Adelita austin Type: BLOOD SPECIMENOrdering Facility: [facility] Address: [address] [place] [address] Result Comment: Jessie min K Antagonist (VKA) Therapeutic Range: INR 2 to 3 (Target INR of 2.5)Note: For patients treated with VKA drugs, such as warfarin, the [place] [employer] 2012 Guideline recommends a therapeutic INR range of 2 to 3 (target INR of 2.5). This recommendation includes high-risk patients with antiphospholipid syndrome with previous arterial or venous thromboembolism, current-generation mechanical or bioprosthetic aortic heart valve replacement.Note: Patients with mechanical aortic valve replacement and additional risk factors for thromboembolic events (atrial fibrillation, previous thromboembolism, LV dysfunction, hypercoagulable conditions) or an older generation mechanical AVR (i.e., ball in-Cage) or any mechanical MVR should have a INR therapeutic range of 2.5 to 3.5 (target INR of 3).Bruce GH, et al. Chest 2012, 141:7S-47SNishimura RA, et al. [facility] 2017, 70: 252-289 Performed By: #### 3 4528-0, 83788-0 ####[facility] LABORATORYCLIA [id number] [place] [address] [place] PT Coag (PPP) [Time] 12.3 s Normal 9.7-13.0 [facility] Comment on above: Order Comment: Adelita austin Type: BLOOD SPECIMENOrdering Facility: [facility] Address: [address] [place] [address] Performed By: #### 3 4528-0, 12365-4 ####[facility] LABORATORYCLIA [id number] [place] [address] [place] Pathologist review Cholo (Unsp spec) [Interp]Ordered By: Fredy Freeman on 01-06-2025 Differential Pathologist's Review May [facility] Pathology biopsy report Cholo (Tiss)on 01-06-2025 AP DISCLAIMER Normal [facility] Comment on above: Order Comment: Adelita austin Type: TISSUE SPECIMENOrdering Facility: [facility] Address: [address] [place] [address] Result Comment: Armand moctezuma Developed Test (LDT) Disclaimer:Performance characteristics of immunohistochemical, immunofluorescent, and chromogenic in-situ hybridization tests have been determined by the performing laboratory within [facility]'s [place] [facility] Department ([facility], [facility], [facility], [facility], [facility], [facility], or [facility]) in a manner consistent with CLIA requirements. One or more of these tests may not have been cleared or approved by the FDA. [facility] is regulated under CLIA as qualified to perform high-complexity testing. These tests are used for clinical purposes. These should not be regarded as investigational or for research. Positive and negative controls stain appropriately. Performed By: #### 6 6121-5 ####[facility] LABORATORYCLIA [id number] [address] CASE REPORT Normal [facility] Comment on above: Order Comment: Speci men Type: TISSUE SPECIMENOrdering Facility: [facility] Address: [address] [place] [address] Result Comment: Surg ical Pathology Report Case: [id number] Provider: Leonel Small MD Collected: 01/06/2025 07:23 AMOrdering Location: [place] [facility] Received: 01/06/2025 10:28 AMPathologist: Carole Kirk MDSpecimen: Spleen Performed By: #### 6 6121-5 ####[facility] [id number] [address] CLINICAL HISTORY Normal [facility] Comment on above: Order Comment: Speci men Type: TISSUE SPECIMENOrdering Facility: [facility] Address: [address] [place] [address] Result Comment: Pre- op diagnosis:Hemoperitoneum [K66.1]Laceration of spleen, initial encounter [S36.039A] Performed By: #### 6 6121-5 ####[facility]ORATORYCLIA [id number] [address] FINAL DIAGNOSIS Normal [facility] Comment on above: Order Comment: Speci men Type: TISSUE SPECIMENOrdering Facility: [facility] Address: [address] [place] [address] Result Comment: Jailene navarrete, splenectomy:- Fragments of splenic parenchyma and blood clot with focal features suggestive of capsular disruption; clinically, splenic laceration. at 1257 EDT Performed By: #### 6 6121-5 ####[facility] LABORATORYCLIA [id number] [address] [facility] FINAL PERFORMING LAB Normal [facility] Comment on above: Order Comment: Speci men Type: TISSUE SPECIMENOrdering Facility: [facility] Address: [address] [place] [address] Result Comment: Diag nostic interpretation performed at: [facility], [address] [place] [address] CLIA# [id number] Director: Doug Hernandez MD Performed By: #### 6 6121-5 ####[facility] LABORATORYCLIA [id number] [address] GROSS DESCRIPTION A. Spleen Normal [facility] Comment on above: Order Comment: Javadi men Type: TISSUE SPECIMENOrdering Facility: [facility] Address: [address] [place] [address] Result Comment: Spl een are multiple fragments of a spleen weighing 173.6 g and aggregating to 10 x 9 x 4 cm. The capsular surface is red and dull. Sectioning reveals red spongy cut surfaces with no nodularity identified. Security System Installer sections are submitted in A1-A2. Gross examination performed at [facility], [address] [place] [address] CLIA#[id number] January 06, 2025 12:32 PM Performed By: #### 6 6121-5 ####[facility] LABORATORYCLIA [id number] [address] OF [facility] Phosphate SerPl-mCncon 01-06 Phosphate [Mass/Vol] 5.6 mg/dL High 2.7-4.8 [facility] Comment on above: Order Comment: Speci men Type: BLOOD SPECIMENOrdering Facility: [facility] Address: [address] [place] [address] Performed By: #### 1 9123-9, 2777-1, 18555-7 ####[facility] LABORATORYCLIA [id number] [address] Platelet countOrdered By: Seamus Freeman on 01-06-2025 Platelets (Bld) [#/Vol] 170 10*3/uL 150-450 [facility] [facility] Potassium measurement (mass/ volume)Ordered By: Fredy Freeman on 01-06-2025 Potassium [Moles/Vol] 3.4 mmol/L Low 3.7-5.1 [facility] Comment on above: Order Comment: Speci men Type: ARTERIAL BLOOD SPECIMENOrdering Facility: [facility] Address: [address] [place] [address] Performed By: #### A LLBG ####[facility] LABORATORYCLIA [id number] [place] [address] [facility] Order Comment: Speci men Type: BLOOD SPECIMENOrdering Facility: [facility] Address: [address] [place] [address] Performed By: #### 1 9123-9, 2777-1, 43617-0 ####[facility] LABORATORYCLIA [id number] [address] Potassium (Unsp spec) [Mass/Vol] 3.4 mmol/L 3.3-5.1 [facility] Prothrombin Time w/INRon INR Coag (PPP) [Relative time] 2.1 {INR} Normal [facility] Comment on above: Performed By: #### L 100.0100, L500.4050 #### [facility] [address] [place], [address] Prothrombin timeOrdered By: Fredy Freeman on 01-06-2025 PT Coag (PPP) [Time] 23.6 s High 11.7-14.9 [facility] Comment on above: Performed By: #### L 100.0100, L500.4050 #### [facility] Laboratory [address] [facility] [place], [address] RBC Auto (Bld) [#/Vol]Ordere d By: Fredy Freeman on 01-06-2025 RBC (Bld) [#/Vol] 1.66 10*6/uL Low 4.2-5.4 [facility] Review by pathologistOrdered By: Fredy Freeman on 01-06-2025 Pathologist review Cholo (Unsp spec) [Interp] Reviewed [facility] Comment on above: Previous reported re sult: Swetha lino Edited by: GLADYS on 01/26/25:1408SEE REPORT IN PATIENT'S EMR AMENDED REPORT 01/26/25 1408 PATH REV previously reported as: February holland STAPHYLOCOCCUS AUREUS AND M RSA SCREEN, PCR, NASALon 01-06-2025 S. aureus and MRSA panel MEL+probe (Nose) Not detected Normal Not Detected [facility] Comment on above: Order Comment: Speci men Type: SWABOrdering Facility: [facility] Address: [address] [place] [address] Performed By: #### S APCR ####[facility] LABORATORYCLIA [id number] [address] OF [facility] S. aureus and MRSA panel MEL+probe (Nose) Not detected Normal Not Detected [facility] Comment on above: Order Comment: Speci men Type: SWABOrdering Facility: [facility] Address: [address] [place] [address] Performed By: #### S APCR ####[facility] LABORATORYCLIA [id number] [address] [place] STROKE Brain/Head without Co nton 01-06-2025 STROKE Brain/Head without Cont [facility] Services [address] [place], [place] [address] STROKE Brain/Head without Cont MR#: [id number] Acct: [id number] Name: MARY CRANE Rep #: [id number] : 1940 F 84 From: [place] MD PCP: Dr. Atul Harvey, DO Status: REG ER Study: STROKE Brain/Head without Cont Date of Exam: 0 01/06/25 Exam# [id number] Ordering Dr: Fredy Freeman DO PROCEDURE: STROKE BRAIN/HEAD WITHOUT CONT 01/06/2025 REASON FOR EXAM: NEURO DEFICIT, ACUTE, STROKE SUSPECTED TECHNIQUE: Head CT without intravenous contrast. Coronal and Sagittal reconstruction series were provided. One or more dose reduction techniques were used (e.g., Automated exposure control, adjustment of the mA and/or kV according to patient size, use of iterative reconstruction technique. RADIATION DOSE SUMMARY: CTDlvol: 44.99 mGy DLP: 796.11 mGycm COMPARISON: None available FINDINGS: No intracranial hemorrhage or CT evidence of large vascular territory acute infarct. The ventricles are within limits and midline. Bilateral symmetric appearing white matter likely chronic small-vessel ischemic changes. Left side of the suprasellar cistern adjacent to the left parasellar carotid is a mildly hyperdense and heterogeneous ovoid extra-axial appearing lesion measuring approximately 1.3 x 1.3 x 0.9 cm axial 18, coronal 36 and sagittal 37 with likely considerations including a giant aneurysm or meningioma among others and requires further workup. Bilateral parasellar carotid and intracranial right vertebral calcification. Possible mucous retention cyst left maxillary sinus. Tiny fluid level left sphenoid sinus axial 12. Small amount of frothy material posterior right ethmoid air cell. Small osteoma left ethmoid air cell. Partial fluid opacification left mastoid tip. The right mastoid, remainder of the paranasal sinuses and orbits appear within limits. CT/STROKE Brain/Head without Cont IMPRESSION: Left side of the suprasellar cistern adjacent to the left parasellar carotid is a mildly hyperdense and heterogeneous ovoid extra-axial appearing lesion measuring approximately 1.3 x 1.3 x 0.9 cm axial 18, coronal 36 and sagittal 37 with likely considerations including a giant aneurysm or meningioma among others and requires further workup. No intracranial hemorrhage or CT evidence of large vascular territory acute infarct. Left paranasal sinus disease as above. Results discussed by myself verbally by phone to Dr. Freeman at 4 a.m. 01/06/2025 Reading Location: [id number] CC: Dr. Atul Harvey DO; Dr. Fredy Freeman DO Public Health Analyst: Signed Normal [facility] STROKE CTA Head AND Neck W/C onon 01-06-2025 STROKE CTA Head AND Neck W/Con [facility] Services [address] [place] [address] STROKE CTA Head AND Neck W/Con MR#: [id number] Acct: [id number] Name: MARY CRANE Rep #: [id number] : 1940 F 84 From: [place] MD PCP: Dr. Atul Harvey DO Status: REG ER Study: STROKE CTA Head AND Neck W/Con Date of Exam: 0 01/06/25 Exam# [id number] Ordering Dr: Fredy Freeman DO PROCEDURE: STROKE CTA HEAD AND NECK W/CON 01/06/2025 REASON FOR EXAM: NEURO DEFICIT, ACUTE, STROKE SUSPECTED TECHNIQUE: CTA imaging of the head and neck from the aortic arch to the skull vertex with intravenous contrast. Coronal and Sagittal reconstruction series were provided. 3D, 3D post processing, 3D reconstructions, Maximum intensity projection (MIPs) Volume rendering and Shaded surface rendering was provided. CONTRAST: 94 cc Isovue 370 One or more dose reduction techniques were used (e.g., Automated exposure control, adjustment of the mA and/or kV according to patient size, use of iterative reconstruction technique). RADIATION DOSE SUMMARY: CTDlvol: 20.76 mGy DLP: 616.81 mGycm COMPARISON: None available FINDINGS: Origin of the right brachiocephalic artery is not included on imaging. Will be included on the CTA of the chest. Atherosclerotic plaque formation at the origin and proximal left subclavian artery without flow significant stenosis. Just beyond the origin of the right common carotid artery is calcific plaque formation and undulation of the right subclavian artery with 7 mm infundibular widening of the area of the thyrocervical trunk origin for example axial 80. The left vertebral artery is dominant with a much smaller right vertebral artery and is patent throughout the cervical spine. The left and right common and internal carotid arteries are patent without flow significant stenosis or dissection. Mild bilateral carotid bulb calcific plaque formation without flow significant stenosis. The petrous and parasellar carotid arteries appear intact. The anterior and posterior circulations appear intact. No vessel cut off, flow significant stenosis or definite contrast filling aneurysm identified. Ovoid area of the left parasellar suprasellar extra-axial mass does not fill with and consideration would include meningioma and less likely a thrombosed giant aneurysm. May be further characterized with follow-up nonemergent MRI as warranted. Cervical spondylosis. CT/STROKE CTA Head AND Neck W/Con IMPRESSION: No flow significant stenosis, dissection, vessel cut off or contrast filling aneurysm identified as above. Reading Location: [id number] CC: Dr. Atul Harvey, DO; Dr. Fredy Freeman, DO Public Health Analyst: Signed Normal [facility] Serum creatinine measurement (mass/volume)Ordered By: Fredy Freeman on 01-06-2025 Creatinine [Mass/Vol] 1.13 mg/dL 0.70-1.20 [facility] Serum glucose measurement (m ass/volume)Ordered By: Fredy Freeman on 01-06-2025 Glucose [Mass/Vol] 218 mg/dL High 70-99 [facility] Serum or plasma calcium shell urement (mass/volume)Ordered By: Fredy Freeman on 01-06-2025 Calcium [Mass/Vol] 6.8 mg/dL Low 7.6-11.0 [facility] Comment on above: Performed By: #### L 100.0100, L500.4050 #### [facility] Laboratory [address] [place], [place], [id number] Serum or plasma urea nitroge n measurement (mass/volume)Ordered By: Fredy Freeman on 01-06-2025 Urea nitrogen [Mass/Vol] 12 mg/dL 4-19 [facility] Sodium levelOrdered By: Zully Freeman on 01-06-2025 Sodium [Moles/Vol] 127 mmol/L Low 133-145 [facility] TEG WITH HEPARIN NEUTRALIZAT IONon 01-06-2025 CITRATED FUNCTIONAL FIBRINOGEN W HAPARINASE MAXIMUM AMPLITUDE 26.1 mm Normal 15-34 [facility] Comment on above: Order Comment: Speci men Type: BLOOD SPECIMENOrdering Facility: [facility] Address: [address] [place] [address] Performed By: #### T EGHN ####[facility] LABORATORYCLIA [id number] [place] [address] [place] CITRATED KAOLIN W HEPARINASE CLOT LYSIS AT 30 MINS 0.0 % Normal 0.0-3.2 [facility] Comment on above: Order Comment: Speci men Type: BLOOD SPECIMENOrdering Facility: [facility] Address: [address] [place] [address] Performed By: #### T EGHN ####[facility] LABORATORYCLIA [id number] [address] CITRATED RAPID TEG W HEPARINASE MAXIMUM AMPLITUDE 62.5 mm Normal 53-69 [facility] Comment on above: Order Comment: Speci men Type: BLOOD SPECIMENOrdering Facility: [facility] Address: [address] [place] [address] Performed By: #### T EGHN ####[facility] LABORATORYCLIA [id number] [address] [place] Clotting time after addition of heparinase TEG (Bld) 6.6 minutes Normal 4.3-8.3 [facility] Comment on above: Order Comment: Speci men Type: BLOOD SPECIMENOrdering Facility: [facility] Address: [address] [place] [address] Performed By: #### T EGHN ####[facility] LABORATORYCLIA [id number] [address] Clotting time.extrinsic coagulation system activated Rotational TEG (Bld) 6.9 minutes Normal 4.6-9.1 [facility] Comment on above: Order Comment: Speci men Type: BLOOD SPECIMENOrdering Facility: [facility] Address: [address] [place] [address] Performed By: #### T EGHN ####[facility] LABORATORYCLIA [id number] [address] [place] Maximum clot firmness TEG (Bld) [Length] 60.6 mm Normal 52.0-69.0 [facility] Comment on above: Order Comment: Speci men Type: BLOOD SPECIMENOrdering Facility: [facility] Address: [address] [place] [address] Performed By: #### T EGHN ####[facility] LABORATORYCLIA [id number] [address] [place] THROMBOGRAPH INTERP Normal [facility] Comment on above: Order Comment: Speci men Type: BLOOD SPECIMENOrdering Facility: [facility] Address: [address] [place] [address] Result Comment: A th romboelastograph (TEG) study was performed using citrate-anticoagulated whole blood treated with and without heparinase to neutralize a heparin effect.The R value, a measure of coagulation function, is within the normal range. This indicates normal coagulation function. The Ly30, a measure of fibrinolysis, is normal. This is indicative of normal fibrinolytic function.The Maximal Amplitude (MA), a measure of platelet function, is within the normal range.Viscoelastic testing is not intended for the monitoring of anticoagulation or antiplatelet medications or the diagnosis and/or management of platelet disorders and/or coagulopathies but may be useful for guiding blood product utilization in emergency and urgent (OR) circumstances when routine coagulation and cell blood counts are not available in a timely manner. Performed By: #### T EGHN ####[facility] LABORATORYCLIA [id number] [address] STATES OF [facility] TOXICOLOGY SCREEN, ROUTINE U RINEon 01-06-2025 Amphetamines Confirm (U) [Mass/Vol] Negative Normal Negative [facility] Comment on above: Order Comment: Speci men Type: URINE SPECIMENOrdering Facility: [facility] Address: [address] [place] [address] Result Comment: Cuto ff threshold at 1000 ng/mL. Performed By: #### U TOX2 ####[facility] LABORATORYCLIA [id number] [place] [address] [place] BARBITURATES, URINE Negative Normal Negative [facility] Comment on above: Order Comment: Speci men Type: URINE SPECIMENOrdering Facility: [facility] Address: [address] [place] [address] Result Comment: Cuto ff threshold at 200 ng/mL. Performed By: #### U TOX2 ####[facility] LABORATORYCLIA [id number] [place] [address] [place] BENZODIAZEPINES, UR Negative Normal Negative [facility] Comment on above: Order Comment: Speci men Type: URINE SPECIMENOrdering Facility: [facility] Address: [address] [place] [address] Result Comment: Cuto ff threshold at 200 ng/mL. Performed By: #### U TOX2 ####[facility]ORATORYCLIA [id number] [address] Cannabinoids Screen Ql (U) Negative Normal Negative [facility] Comment on above: Order Comment: Speci men Type: URINE SPECIMENOrdering Facility: [facility] Address: [address] [place] [address] Result Comment: Cuto ff threshold at 50 ng/mL. Performed By: #### U TOX2 ####[facility]ORATORYCLIA [id number] [address] Cocaine Ql (U) Negative Normal Negative [facility] Comment on above: Order Comment: Speci men Type: URINE SPECIMENOrdering Facility: [facility] Address: [address] [place] [address] Result Comment: Cuto ff threshold at 300 ng/mL. Performed By: #### U TOX2 ####[facility]ORATORYCLIA [id number] [address] [place] Ethanol (U) [Mass/Vol] <11 Normal <[address] [facility] Comment on above: Order Comment: Speci men Type: URINE SPECIMENOrdering Facility: [facility] Address: [address] [place] [address] Performed By: #### U TOX2 ####[facility]ORATORYCLIA [id number] [address] OF [facility] Opiates Screen Ql (U) Negative Normal Negative [facility] Comment on above: Order Comment: Speci men Type: URINE SPECIMENOrdering Facility: [facility] Address: [address] [place] [address] Result Comment: Cuto ff threshold at 300 ng/mL. Performed By: #### U TOX2 ####[facility]ORATORYCLIA [id number] [address] [place] oxyCODONE cutoff Screen (U) [Mass/Vol] Negative Normal Negative [facility] Comment on above: Order Comment: Speci men Type: URINE SPECIMENOrdering Facility: [facility] Address: [address] [place] [address] Result Comment: Cuto ff threshold at 100 ng/mL. Performed By: #### U TOX2 ####[facility] LABORATORYCLIA [id number] [address] Phencyclidine Ql (U) Negative Normal Negative [facility] Comment on above: Order Comment: Speci men Type: URINE SPECIMENOrdering Facility: [facility] Address: [address] [place] [address] Result Comment: Cuto ff threshold at 25 ng/mL. Performed By: #### U TOX2 ####[facility] LABORATORYCLIA [id number] [address] TYPE + SCREENon 01-06-2025 ABO O Normal [facility] Comment on above: Order Comment: Speci men Type: BLOOD SPECIMENOrdering Facility: [facility] Address: [address] [place] [address] Performed By: #### T SCR ####[facility] BLOOD BANKCLIA [id number] [address] Rh Nom (Bld) Positive Normal [facility] Comment on above: Order Comment: Speci men Type: BLOOD SPECIMENOrdering Facility: [facility] Address: [address] [place] [address] Performed By: #### T SCR ####[facility] BLOOD BANKCLIA [id number] [address] OF [facility] TYPE AND SCREEN EXPIRATION 01/09/2025 23:59 Normal [facility] Comment on above: Order Comment: Speci men Type: BLOOD SPECIMENOrdering Facility: [facility] Address: [address] [place] [address] Performed By: #### T SCR ####[facility] BLOOD BANKCLIA [id number] [address] [place] Type AND Screenon 01-06-2025 Ab SCREEN GEL Negative Normal [facility] Comment on above: Order Comment: Comme nts: SPECIMEN #3 'TROP' Serial specimen #1, #2 or #3: 3 Performed By: #### L 501.4020 #### [facility] Laboratory [address] [place], [place], [address] ABO and Rh group Nom (Bld) Blood group O Rh(D) positive Normal [facility] Comment on above: Order Comment: Comme nts: SPECIMEN #3 'TROP' Serial specimen #1, #2 or #3: 3 Performed By: #### L 501.4020 #### [facility] [address] [place], [place], [id number] Urinalysis complete panel (U )on 01-06-2025 Bilirubin Ql (U) Negative Normal Negative [facility] Comment on above: Order Comment: Speci men Type: URINE SPECIMENOrdering Facility: [facility] Address: [address] [place] [address] Performed By: #### 2 4356-8 ####[facility] LABORATORYCLIA [id number] [address] [place] Clarity (Unsp spec) Clear Normal Clear [facility] Comment on above: Order Comment: Speci men Type: URINE SPECIMENOrdering Facility: [facility] Address: [address] [place] [address] Performed By: #### 2 4356-8 ####[facility] LABORATORYCLIA [id number] [address] [place] Color (U) Light Yellow Normal yellow [facility] Comment on above: Order Comment: Speci men Type: URINE SPECIMENOrdering Facility: [facility] Address: [address] [place] [address] Performed By: #### 2 4356-8 ####[facility] LABORATORYCLIA [id number] [address] [place] Epithelial cells LM.HPF (Urine sed) [#/Area] Few Abnormal None Seen [facility] Comment on above: Order Comment: Speci men Type: URINE SPECIMENOrdering Facility: [facility] Address: [address] [place] [address] Performed By: #### 2 4356-8 ####[facility]ORATORYCLIA [id number] [address] [place] Glucose Test strip (U) [Mass/Vol] Negative Normal Trace, Negative [facility] Comment on above: Order Comment: Speci men Type: URINE SPECIMENOrdering Facility: [facility] Address: [address] [place] [address] Performed By: #### 2 4356-8 ####[facility]ORATORYCLIA [id number] [address] [place] Hemoglobin Ql (U) Negative Normal Negative, Trace [facility] Comment on above: Order Comment: Speci men Type: URINE SPECIMENOrdering Facility: [facility] Address: [address] [place] [address] Performed By: #### 2 4356-8 ####[facility]ORATORYCLIA [id number] [place] [address] [place] Ketones Ql (U) Negative Normal Negative, Trace [facility] Comment on above: Order Comment: Speci men Type: URINE SPECIMENOrdering Facility: [facility] Address: [address] [place] [address] Performed By: #### 2 4356-8 ####[facility]ORATORYCLIA [id number] [address] [place] Leukocyte esterase Test strip Ql (U) Negative Normal Negative, 25 Nelly/uL [facility] Comment on above: Order Comment: Speci men Type: URINE SPECIMENOrdering Facility: [facility] Address: [address] [place] [address] Performed By: #### 2 4356-8 ####[facility]ORATORYCLIA [id number] [place] [address] [place] Nitrite Ql (U) Negative Normal Negative [facility] Comment on above: Order Comment: Speci men Type: URINE SPECIMENOrdering Facility: [facility] Address: [address] [place] [address] Performed By: #### 2 4356-8 ####[facility] LABORATORYCLIA [id number] [address] [place] pH (U) 6.5 [pH] Normal 5.0-8.0 [facility] Comment on above: Order Comment: Speci men Type: URINE SPECIMENOrdering Facility: [facility] Address: [address] [place] [address] Performed By: #### 2 4356-8 ####[facility] LABORATORYCLIA [id number] [place] [address] [place] Protein (U) [Mass/Vol] Negative Normal Trace , Negative [facility] Comment on above: Order Comment: Speci men Type: URINE SPECIMENOrdering Facility: [facility] Address: [address] [place] [address] Performed By: #### 2 4356-8 ####[facility] LABORATORYCLIA [id number] [place] [address] [place] RBC LM.HPF (Urine sed) [#/Area] 3-5 /HPF Abnormal 0-3 /HPF [facility] Comment on above: Order Comment: Speci men Type: URINE SPECIMENOrdering Facility: [facility] Address: [address] [place] [address] Performed By: #### 2 4356-8 ####[facility] LABORATORYCLIA [id number] [address] [place] Specific gravity (U) [Rel density] >1.040 High 1.005-1.030 [facility] Comment on above: Order Comment: Speci men Type: URINE SPECIMENOrdering Facility: [facility] Address: [address] [place] [address] Performed By: #### 2 4356-8 ####[facility] LABORATORYCLIA [id number] [address] [place] Urobilinogen Ql (U) Normal Normal Normal [facility] Comment on above: Order Comment: Speci men Type: URINE SPECIMENOrdering Facility: [facility] Address: [address] [place] [address] Performed By: #### 2 4356-8 ####[facility] LABORATORYCLIA [id number] [address] [place] WBC LM.HPF (Urine sed) [#/Area] 0-5 /HPF Normal 0-5 /HPF [facility] Comment on above: Order Comment: Speci men Type: URINE SPECIMENOrdering Facility: [facility] Address: [address] [place] [address] Performed By: #### 2 4356-8 ####[facility] LABORATORYCLIA [id number] [address] White blood cell (WBC) count Ordered By: Fredy Freeman on 01-06-2025 WBC (Bld) [#/Vol] 13.1 10*3/uL High 4.4-11.0 [facility] XR CHEST 1V FRONTALon 2024 XR CHEST 1V FRONTAL Normal [facility] aPTT PPPon 01-06-2025 aPTT Coag (PPP) [Time] 30.2 s Normal 23.0-32.[address] [facility] Comment on above: Order Comment: Speci men Type: BLOOD SPECIMENOrdering Facility: [facility] Address: [address] [place], [place] [address] Performed By: #### 3 [id number], [id number] ####[facility] LABORATORYCLIA [id number] [address] OF [place] CNPNon 12-27-2024 CNPN Telephone (FAMPWS) MARY CRANE ([id number]) 1940 F TXT Date Time Provider Department 12/27/24 ATUL HARVEY During your visit today, we recorded the following information about you: Nancy Mccann, JOSE 12/27/2024 4:03 PM Signed Nathaly with [facility] calling with 2 items regarding patient. Patient has been ordered furosemide but has a listed allergy to Bumex. Asking if pt may take the furosemide. Patient is taking OTC Mucinex and this is not on their medication list. Wanted provider to know this. Please call Nathaly back with provider's response, Nancy Mccann, Catalina Root, [place]ISON.GROCERY BAGGER 12/28/2024 12:44 PM Signed Has she been on the Lasix and tolerated it in the past? 2. Noted. Catalina Jauregui APRN.GROCERY BAGGER Ellen Christopher LPN 12/28/2024 2:23 PM Signed Called and spoke with Debora hh she will call pt and let us know. Lori Chino RN 01/12/2025 10:12 AM Signed It appears no return call and currently looks like pt is an inpatient at [facility] with recent surgery. Catalina Jauregui APRN.GROCERY BAGGER 01/12/2025 10:24 AM Signed Noted, thank you. Catalina Jauregui APRN.GROCERY BAGGER Allergies As of Date: 12/27/2024 Noted Allergy Reaction FLOXIN (OFLOXACIN) 09/10/2005 10 - Anaphylaxis BUMEX (BUMETANIDE) 09/10/2005 5 - Intolerance HYDROCHLOROTHIAZIDE 09/10/2005 2 - Rash 5 - Intolerance Comments: leucocytoclastic vasculitis KEFLEX (CEPHALEXIN) 09/10/2005 2 - Rash NAPROXEN 09/10/2005 2 - Rash 4 - Hives NORVASC (AMLODIPINE BESYLATE) 09/10/2005 5 - Intolerance PENICILLINS 09/10/2005 5 - Intolerance Comments: Rash PROCTOSOL (HYDROCORTISONE ACETATE)09/10/2005 5 - Intolerance SULFA (SULFONAMIDE ANTIBIOTICS) 09/10/2005 2 - Rash 8 - GI Upset COLCHICINE 10/17/2005 4 - Hives MINOXIDIL 03/24/2011 14 - Other: See Comments Comments: facial hair Date Reviewed: 11/11/2024 Reviewed by: Tatyana Hennessy LPN - Fully Assessed Reason for Visit: Home Health Call [Other] Prescriptions as of 01/12/2025 - levothyroxine (LEVOXYL) 25 mcg tablet Take 1 tablet by mouth once daily. Take on empty stomach. For Thyroid - allopurinol (ZYLOPRIM) 100 mg tablet Take 1 tablet by mouth once daily. - furosemide (LASIX) 20 mg tablet Take 1 tablet by mouth once daily. - amiodarone (PACERONE) 200 mg tablet Take 1 tablet by mouth once daily. - apixaban (ELIQUIS) 5 mg tab(s) Take 1 tablet by mouth two times a day. - losartan (COZAAR) 50 mg tablet Take 1 tablet by mouth once daily. - metoprolol tartrate, short acting, (LOPRESSOR) 100 mg tablet Take 1 tablet by mouth two times a day. - cholecalciferol, Vitamin D3, (VITAMIN D3) 1,250 mcg (50,000 unit) cap capsule Take 1 capsule by mouth one time a week. - potassium chloride ER (KLOR-CON M10) 10 mEq tablet Take 1 tablet by mouth two times a day. - rosuvastatin (CRESTOR) 10 mg tablet Take 1 tablet by mouth once daily. - nystatin (NYSTOP) powder Apply 1 application to affected area four times a day as needed. Yeast infection/rash in groin and under breasts - ketoconazole (NIZORAL) 2 % cream Apply to affected area two times a day. - folic acid 1 mg tablet Take 2 tablets by mouth once daily. - triamcinolone acetonide (KENALOG) 0.1 % cream Apply 1 application to affected area two times a day as needed (rash). Apply sparingly to area for rash/itching. - Cholecalciferol, Vitamin D3, 50 mcg (2,000 unit) cap Take 1 capsule by mouth once daily. - dicyclomine (BENTYL) 10 mg capsule Take 1 capsule by mouth before meals and at bedtime. For diarrhea or abdominal cramping - cyanocobalamin (VITAMIN B-12) 1,000 mcg tab Take 1,000 mcg by mouth every other day in the morning. - triamcinolone acetonide (KENALOG) 0.1 % cream Apply 1 application to affected area twice daily. On rash, Apply sparingly to area for rash/itching. - vit A/vit C/vit E/zinc/copper (OCUVITE PRESERVISION ORAL) Take by mouth twice daily. - apremilast (OTEZLA) 30 mg tablet Take 30 mg by mouth twice daily. - hydrocortisone probutate 0.1 % crea Apply to affected area once daily as needed. - loratadine (CLARITIN) 10 mg tablet Take 10 mg by mouth once daily. Takes daily as needed - acetaminophen (TYLENOL) 325 mg tablet Take 650 mg by mouth every 6 hours as needed. Facility-Administered Medications as of 01/12/2025 - pneumococcal PCV20 vaccine 0.5 mL injection (PREVNAR 20) - Haemophilus influenzae b Hib PRP-T vaccine 0.5 mL injection (ACTHIB) - meningococcal MenACWY vaccine 0.5 mL injection (MENQUADFI) - meningococcal group B MenB-4C vaccine 0.5 mL injection (BEXSERO) - polyethylene glycol 3350 17 g packet - acetaminophen 1,000 mg tab(s) (TYLENOL) - oxyCODONE IR 2.5-5 mg tab(s) (ROXICODONE) - melatonin 6 mg tab(s) - furosemide 20 mg tab(s) (LASIX) - enoxaparin 30 mg injection (LOVENOX) - sodium chloride 0.9 % (flush) 2-10 mL (BD POSIFLUSH) - insulin lispro inje (more content not included)... Normal [facility] 12-02-2024 [facility] Telephone (FAMZacariasWS) MARY CRANE ([id number]) 1940 F TXT Date Time Provider Department 12/02/24 ATUL HARVEY [facility] During your visit today, we recorded the following information about you: Camila Finley RN 12/02/2024 3:58 PM Signed Patient calls and states that Dr. Hussein had labs done on patient. Patient reports that Dr. Hussein told patient to call office and report that patient should cut lasix in half. Patient has been currently taking 40 mg, and patient was told that lasix should be cut in half due to her kidney function. Please review and advise, JOSE Murillo Jordan L, DO 12/07/2024 10:33 AM Signed Noted, please let patient know that I saw her labs and decreased lasix to 20 mg a day as below Atul Harvey DO The following approved medication requests have been transmitted electronically. Requested Prescriptions Signed Prescriptions Disp Refills furosemide (LASIX) 20 mg tablet 90 tablet 1 Sig: Take 1 tablet by mouth once daily. Authorizing Provider: ATUL HARVEY DO Jones, Stephanie, RN 12/07/2024 11:02 AM Signed TC patient, left message for patient to call back and speak with a triage nurse regarding provider instructions. JOSE Murillo Laurie Lynn, LPN 12/07/2024 12:05 PM Signed Spoke with pt and information listed below given. Pt verbalizes understanding. Elizabeth Goldberg LPN Allergies As of Date: 12/02/2024 Noted Allergy Reaction FLOXIN (OFLOXACIN) 09/10/2005 10 - Anaphylaxis BUMEX (BUMETANIDE) 09/10/2005 5 - Intolerance HYDROCHLOROTHIAZIDE 09/10/2005 2 - Rash 5 - Intolerance Comments: leucocytoclastic vasculitis KEFLEX (CEPHALEXIN) 09/10/2005 2 - Rash NAPROXEN 09/10/2005 2 - Rash 4 - Hives NORVASC (AMLODIPINE BESYLATE) 09/10/2005 5 - Intolerance PENICILLINS 09/10/2005 5 - Intolerance Comments: Rash PROCTOSOL (HYDROCORTISONE ACETATE)09/10/2005 5 - Intolerance SULFA (SULFONAMIDE ANTIBIOTICS) 09/10/2005 2 - Rash 8 - GI Upset COLCHICINE 10/17/2005 4 - Hives MINOXIDIL 03/24/2011 14 - Other: See Comments Comments: facial hair Date Reviewed: 11/11/2024 Reviewed by: Tatyana Hennessy LPN - Fully Assessed Reason for Visit: Patient Update [1234] Order(s):furosemide (LASIX) 20 mg tabletTake 1 tablet by mouth once daily.Disp: 90 tabletRfl: 1 Prescriptions as of 12/07/2024 - furosemide (LASIX) 20 mg tablet Take 1 tablet by mouth once daily. - amiodarone (PACERONE) 200 mg tablet Take 1 tablet by mouth once daily. - apixaban (ELIQUIS) 5 mg tab(s) Take 1 tablet by mouth two times a day. - losartan (COZAAR) 50 mg tablet Take 1 tablet by mouth once daily. - metoprolol tartrate, short acting, (LOPRESSOR) 100 mg tablet Take 1 tablet by mouth two times a day. - cholecalciferol, Vitamin D3, (VITAMIN D3) 1,250 mcg (50,000 unit) cap capsule Take 1 capsule by mouth one time a week. - potassium chloride ER (KLOR-CON M10) 10 mEq tablet Take 1 tablet by mouth two times a day. - rosuvastatin (CRESTOR) 10 mg tablet Take 1 tablet by mouth once daily. - nystatin (NYSTOP) powder Apply 1 application to affected area four times a day as needed. Yeast infection/rash in groin and under breasts - ketoconazole (NIZORAL) 2 % cream Apply to affected area two times a day. - levothyroxine (LEVOXYL) 25 mcg tablet Take 1 tablet by mouth once daily. Take on empty stomach. For Thyroid - folic acid 1 mg tablet Take 2 tablets by mouth once daily. - triamcinolone acetonide (KENALOG) 0.1 % cream Apply 1 application to affected area two times a day as needed (rash). Apply sparingly to area for rash/itching. - allopurinol (ZYLOPRIM) 100 mg tablet Take 1 tablet by mouth once daily. - Cholecalciferol, Vitamin D3, 50 mcg (2,000 unit) cap Take 1 capsule by mouth once daily. - dicyclomine (BENTYL) 10 mg capsule Take 1 capsule by mouth before meals and at bedtime. For diarrhea or abdominal cramping - cyanocobalamin (VITAMIN B-12) 1,000 mcg tab Take 1,000 mcg by mouth once daily. - triamcinolone acetonide (KENALOG) 0.1 % cream Apply 1 application to affected area twice daily. On rash, Apply sparingly to area for rash/itching. - vit A/vit C/vit E/zinc/copper (OCUVITE PRESERVISION ORAL) Take by mouth twice daily. - apremilast (OTEZLA) 30 mg tablet Take 30 mg by mouth twice daily. - hydrocortisone probutate 0.1 % crea Apply to affected area once daily as needed. - loratadine (CLARITIN) 10 mg tablet Take 10 mg by mouth once daily. Takes daily as needed - acetaminophen (TYLENOL) 325 mg tablet Take 650 mg by mouth every 6 hours as needed. Problem List As Of Date 12/02/2024 Noted Resolved Benign neoplasm of colon [D12.6] 09/30/2005 02/24/2020 DIVERTICULOSIS OF COLON W/O BLEED [K57.30] 09/30/2005 Internal hemorrhoids without mention of complic*09/30/2005 02/24/2020 CARPAL TUNNEL SYNDROME [G56.00] (more content not included)... Normal [facility] Absolute lymphocyte countOrd ered By: Kimmie Hussein on 11-21-2024 Lymphocytes Auto (Unsp spec) [#/Vol] 2.99 10*3/uL 0.83-4.51 [facility] Absolute neutrophil countOrd ered By: Kimmie Hussein on 11-21-2024 Neutrophils (Bld) [#/Vol] 5.5 10*3/uL 2.0-7.7 [facility] Albumin to globulin ratioOrd ered By: Kimmie Hussein on 11-21-2024 Albumin/Globulin [Mass ratio] 0.6 {ratio} Low 0.9-2.4 [facility] Automated lymphocyte count a s percentage of total leukocytesOrdered By: Kimmie Hussein on 11-21-2024 Lymphocytes/100 WBC Auto (Unsp spec) 31.1 % 19-41 [facility] Basophil percentageOrdered B y: Kimmie Hussein on 11-21-2024 Basophils/100 WBC (Bld) 0.8 % 0-1 [facility] Bilirubin, totalOrdered By: Kimmie Hussein on 11-21-2024 Bilirubin [Mass/Vol] 0.80 mg/dL 0.20-1.00 [facility] Comment on above: For patients on eltr ombopag therapy, use of Dimension [place] TBIL is not recommended. Blood urea nitrogen (BUN)/cr eatinine ratioOrdered By: Kimmie Hussein on 11-21-2024 Urea nitrogen/Creatinine [Mass ratio] 17.5 mg/mg 10- [facility] CBC W/Diff, Automatedon 11-12 Absolute Lymph 2.99 X10 3/uL Normal 0.83-4.51 [facility] Comment on above: Performed By: #### L 100.0100, L500.4050 #### [facility] [address] [place], [address] Absolute Neut 5.5 X10 3/uL Normal 2.0-7.7 [facility] Comment on above: Performed By: #### L 100.0100, L500.4050 #### [facility] [address] [place], [address] Basophils/100 WBC (Bld) 0.8 % Normal 0-1 [facility] Comment on above: Performed By: #### L 100.0100, L500.4050 #### [facility] [address] [place], [address] Eosinophils/100 WBC (Bld) 0.8 % Normal 0-5 [facility] Comment on above: Performed By: #### L 100.0100, L500.4050 #### [facility] [address] [place], [address] Erythrocyte distribution width (RBC) [Ratio] 17.0 % High 11.6-14.6 [facility] Comment on above: Performed By: #### L 100.0100, L500.4050 #### [facility] [address] [place], [address] Hematocrit (Bld) [Volume fraction] 43.6 % Normal 37-47 [facility] Comment on above: Performed By: #### L 100.0100, L500.4050 #### [facility] [address] [place], [address] Hemoglobin (Bld) [Mass/Vol] 13.4 g/dL Normal 12.0-15.0 [facility] Comment on above: Performed By: #### L 100.0100, L500.4050 #### [facility] [address] [place], [address] IG% 0.800 Normal 0.0-0.9 [facility] Comment on above: Result Comment: IG% - Immature Granulocytes (promyelocytes, myelocytes and metamyelocytes) > 1% indicates that a LEFT SHIFT is Present. Performed By: #### L 100.0100, L500.4050 #### [facility] [address] [place], [address] Lymphocytes/100 WBC (Bld) 31.1 % Normal 19-41 [facility] Comment on above: Performed By: #### L 100.0100, L500.4050 #### [facility] [address] [place], [address] MCH (RBC) [Entitic mass] 28.7 pg Normal 27.0-32.0 [facility] Comment on above: Performed By: #### L 100.0100, L500.4050 #### [facility] [address] [place], [address] MCHC (RBC) [Mass/Vol] 30.7 g/dL Low 32-36 [facility] Comment on above: Performed By: #### L 100.0100, [id number] #### [facility] [address] [place], [address] MCV (RBC) [Entitic vol] 93.4 fL Normal 81-99 [facility] Comment on above: Performed By: #### L 100.0100, [id number] #### [facility] [address] [place], [address] Monocytes/100 WBC (Bld) 9.1 % Normal 0-10 [facility] Comment on above: Performed By: #### L 100.0100, L500.4050 #### [facility] [address] [place], [address] Neutrophils/100 WBC (Bld) 57.4 % Normal 47-70 [facility] Comment on above: Performed By: #### L 100.0100, L500.4050 #### [facility] [address] [place], [address] Nucleated RBC (Bld) [#/Vol] 0 10*3/uL Normal 0-5 [facility] Comment on above: Performed By: #### L 100.0100, L500.4050 #### [facility] [address] [place], [address] Platelet mean volume (Bld) [Entitic vol] 10.8 fL Normal 6.2-12.0 [facility] Comment on above: Performed By: #### L 100.0100, L500.4050 #### [facility] [address] [place], [address] Platelets (Bld) [#/Vol] 217 10*3/uL Normal 150-450 [facility] Comment on above: Performed By: #### L 100.0100, L500.4050 #### [facility] [address] [place], [address] RBC (Bld) [#/Vol] 4.67 10*6/uL Normal 4.2-5.4 [facility] Comment on above: Performed By: #### L 100.0100, L500.4050 #### [facility] [address] [place], [address] RDW SD 58.4 fl High 35.1-43.9 [facility] Comment on above: Performed By: #### L 100.0100, L500.4050 #### [facility] [address] [place], [address] WBC (Bld) [#/Vol] 9.6 10*3/uL Normal 4.4-11.0 [facility] Comment on above: Performed By: #### L 100.0100, L500.4050 #### [facility] [address] [place], [address] Carbon dioxide measurementOr dered By: Kimmie Hussein on 11-21-2024 CO2 [Moles/Vol] 28.0 mmol/L 21.0-32.0 [facility] Chloride measurementOrdered By: Kimmie Hussein on 11-21-2024 Chloride [Moles/Vol] 102 mmol/L 98-107 [facility] Comprehensive Metabolic Prof ilon 11-21-2024 Albumin [Mass/Vol] 3.1 g/dL Low 3.2-5.0 [facility] Comment on above: Performed By: #### L 100.0100, L500.4050 #### [facility] [address] [place], [address] Albumin/Globulin [Mass ratio] 0.6 {ratio} Low 0.9-2.4 [facility] Comment on above: Performed By: #### L 100.0100, L500.4050 #### [facility] [address] [place], [address] ALK P 117 U/L Normal 45-117 [facility] Comment on above: Performed By: #### L 100.0100, L500.4050 #### [facility] [address] [place], [address] ALT [Catalytic activity/Vol] 40 U/L Normal 13-56 [facility] Comment on above: Performed By: #### L 100.0100, L500.4050 #### [facility] [address] [place], [address] AST [Catalytic activity/Vol] 30 U/L Normal 15-37 [facility] Comment on above: Performed By: #### L 100.0100, L500.4050 #### [facility] [address] [place], [address] Bilirubin [Mass/Vol] 0.80 mg/dL Normal 0.20-1.00 [facility] Comment on above: Result Comment: For patients on eltrombopag therapy, use of Dimension [place] TBIL is not recommended. Performed By: #### L 100.0100, L500.4050 #### [facility] [address] [place], [address] BUN/CRE 17.5 RATIO Normal 10-20 [facility] Comment on above: Performed By: #### L 100.0100, L500.4050 #### [facility] [address] [place], [address] CA,Total 9.3 mg/dL Normal 8.5-10.1 [facility] Comment on above: Performed By: #### L 100.0100, L500.4050 #### [facility] [address] [place], [address] Chloride [Moles/Vol] 102 mmol/L Normal 98-107 [facility] Comment on above: Performed By: #### L 100.0100, L500.4050 #### [facility] [address] [place], [address] CO2 [Moles/Vol] 28.0 mmol/L Normal 21.0-32.0 [facility] Comment on above: Performed By: #### L 100.0100, L500.4050 #### [facility] [address] [place], [address] Creatinine [Mass/Vol] 1.14 mg/dL High 0.55-1.02 [facility] Comment on above: Result Comment: The validity of the calculated GFR GFRAA in patients over 70 years has not been determined. Clinical correlation is essential. Performed By: #### L 100.0100, L500.4050 #### [facility] [address] [place], [address] EST GFR - AA 58 mL/min Low >60 [facility] Comment on above: Result Comment: Afri can [place]aur[place] GFR Calc Performed By: #### L 100.0100, L500.4050 #### [facility] [address] [place], [address] GAP 7 Normal 5-15 [facility] Comment on above: Performed By: #### L 100.0100, L500.4050 #### [facility] [address] [place], [address] GFR/1.73 sq M.predicted among non-blacks MDRD (S/P/Bld) [Vol rate/Area] 48 mL/min/{1.73_m2} Low >60 [facility] Comment on above: Result Comment: Non- GFR Calc Performed By: #### L 100.0100, L500.4050 #### [facility] [address] [place], [address] Globulin (S) [Mass/Vol] 4.8 g/dL High 2.2-4.2 [facility] Comment on above: Performed By: #### L 100.0100, L500.4050 #### [facility] [address] [place], [address] Glucose [Mass/Vol] 98 mg/dL Normal 74-106 [facility] Comment on above: Performed By: #### L 100.0100, L500.4050 #### [facility] [address] [place], [address] Potassium [Moles/Vol] 3.4 mmol/L Low 3.5-5.1 [facility] Comment on above: Performed By: #### L 100.0100, L500.4050 #### [facility] [address] [place], [address] Sodium [Moles/Vol] 136 mmol/L Normal 136-145 [facility] Comment on above: Performed By: #### L 100.0100, L500.4050 #### [facility] [address] [place], [address] T PROT 7.9 g/dL Normal 6.4-8.2 [facility] Comment on above: Performed By: #### L 100.0100, L500.4050 #### [facility] [address] [place], [address] Urea nitrogen [Mass/Vol] 20 mg/dL High 7-18 [facility] Comment on above: Performed By: #### L 100.0100, L500.4050 #### [facility] [address] [place], [address] Eosinophil percentageOrdered By: Kimmie Hussein on 11-21-2024 Eosinophils/100 WBC (Bld) 0.8 % 0-5 [facility] Erythrocyte distribution wid th ratioOrdered By: Kimmie Hussein on 11-21-2024 Erythrocyte distribution width (RBC) [Ratio] 17.0 % High 11.6-14.6 [facility] Erythrocyte distribution wid th standard deviationOrdered By: Kmimie Hussein on 11-21-2024 Erythrocyte distribution width (RBC) [Entitic vol] 58.4 fL High 35.1-43.9 [facility] Erythrocyte distribution width (RBC) [Ratio] 58.4 fl High 35.1-43.9 [facility] Estimated glomerular filtrat ion rate (GFR) AmericanOrdered By: Kimmie Hussein on 11-21-2024 Estimated GFR (MDRD) Amer 58 mL/min Low >60 [facility] Comment on above: GFR Calc Glomerular filtration rate ( GFR) estimationOrdered By: Kimmie Hussein on 11-21-2024 Estimated GFR (MDRD) Non-Af Amer 48 mL/min Low >60 [facility] Comment on above: Non- GFR Calc GFR/1.73 sq M.predicted among non-blacks MDRD (S/P/Bld) [Vol rate/Area] 48 mL/min/{1.73_m2} Low >60 [facility] Comment on above: Non- GFR Calc Glucose measurementOrdered B y: Kimmie Hussein on 11-21-2024 Glucose [Mass/Vol] 98 mg/dL 74-106 [facility] Hematocrit Auto (Bld) [Volum e fraction]Ordered By: Kimmie Hussein on 11-21-2024 Hematocrit (Bld) [Volume fraction] 43.6 % 37-47 [facility] Hemoglobin measurementOrdere d By: Kimmie Hussein on 11-21-2024 Hemoglobin (Bld) [Mass/Vol] 13.4 g/dL 12.0-15.0 [facility] Immature granulocytes/100 WB C Auto (Bld)Ordered By: Kimmie Hussein on 11-21-2024 Immature granulocytes/100 WBC (Bld) 0.800 % 0.0-0.9 [facility] Comment on above: IG% - Immature Granu locytes (promyelocytes, myelocytes and metamyelocytes) > 1% indicates that a LEFT SHIFT is Present. Laboratory - Chemistry and C hemistry - challengeOrdered By: Kimmie Hussein on 11-21-2024 AST [Catalytic activity/Vol] 30 U/L 15-37 [facility] Lymphocytes Auto (Unsp spec) [#/Vol]Ordered By: Kimmie Hussein on 11-21-2024 Lymphocytes (Bld) [#/Vol] 2.99 10*3/uL 0.83-4.51 [facility] Lymphocytes/100 WBC Auto (Un sp spec)Ordered By: Kimmie Hussein on 11-21-2024 Lymphocytes/100 WBC (Bld) 31.1 % 19-41 [facility] MCV (mean corpuscular volume ) determinationOrdered By: Kimmie Hussein on 11-21-2024 MCV (RBC) [Entitic vol] 93.4 fL 81-99 [facility] Mean corpuscular hemoglobin (MCH) determinationOrdered By: Kimmie Hussein on 11-21-2024 MCH (RBC) [Entitic mass] 28.7 pg 27.0-32.0 [facility] Mean corpuscular hemoglobin concentration (MCHC) determinationOrdered By: Kimmie Hussein on 11-21-2024 MCHC (RBC) [Mass/Vol] 30.7 g/dL Low 32-36 [facility] Mean platelet volume determi nationOrdered By: Kimmie Hussein on 11-21-2024 Platelet mean volume (Bld) [Entitic vol] 10.8 fL 6.2-12.0 [facility] Monocyte percentageOrdered B y: Kimmie Hussein on 11-21-2024 Monocytes/100 WBC (Bld) 9.1 % 0-10 [facility] Neutrophil percentageOrdered By: Kimmie Hussein on 11-21-2024 Neutrophils/100 WBC (Bld) 57.4 % 47-70 [facility] Nucleated red blood cell per centageOrdered By: Kimmie Hussein on 11-21-2024 Nucleated RBC/100 WBC (Bld) [Ratio] 0 % 0-5 [facility] Platelet countOrdered By: Thad Hussein on 11-21-2024 Platelets (Bld) [#/Vol] 217 10*3/uL 150-450 [facility] Potassium measurementOrdered By: Kimmie Hussein on 11-21-2024 Potassium [Moles/Vol] 3.4 mmol/L Low 3.5-5.1 [facility] RBC Auto (Bld) [#/Vol]Ordere d By: Kimmie Hussein on 11-21-2024 RBC (Bld) [#/Vol] 4.67 10*6/uL 4.2-5.4 [facility] Serum anion gap measurementO rdered By: Kimmie Hussein on 11-21-2024 Anion gap [Moles/Vol] 7 mmol/L 5-15 [facility] Serum globulin measurementOr dered By: Kimmie Hussein on 11-21-2024 Globulin (S) [Mass/Vol] 4.8 g/dL High 2.2-4.2 [facility] Serum or plasma alanine [place] otransferase (ALT) measurementOrdered By: Kimmie Hussein on 11-21-2024 ALT [Catalytic activity/Vol] 40 U/L 13-56 [facility] Serum or plasma albumin shell urement (mass/volume)Ordered By: Kimmie Hussein on 11-21-2024 Albumin [Mass/Vol] 3.1 g/dL Low 3.2-5.0 [facility] Serum or plasma alkaline natalie sphatase measurementOrdered By: Kimmie Hussein on 11-21-2024 ALP [Catalytic activity/Vol] 117 U/L 45-117 [facility] Serum or plasma calcium shell urement (mass/volume)Ordered By: Kimmie Hussein on 11-21-2024 Calcium [Mass/Vol] 9.3 mg/dL 8.5-10.1 [facility] Serum or plasma creatinine m easurement (mass/volume)Ordered By: Kimmie Hussein on 11-21-2024 Creatinine [Mass/Vol] 1.14 mg/dL High 0.55-1.02 [facility] Comment on above: The validity of the calculated GFR & GFRAA in patients over 70 years has not been determined. Clinical correlation is essential. Serum or plasma urea nitroge n measurement (mass/volume)Ordered By: Kimmie Hussein on 11-21-2024 Urea nitrogen [Mass/Vol] 20 mg/dL High 7-18 [facility] Sodium levelOrdered By: Sherry Hussein on 11-21-2024 Sodium [Moles/Vol] 136 mmol/L 136-145 [facility] Total proteinOrdered By: Neena Hussein on 11-21-2024 Protein [Mass/Vol] 7.9 g/dL 6.4-8.2 [facility] White blood cell (WBC) count Ordered By: Kimmie Hussein on 11-21-2024 WBC (Bld) [#/Vol] 9.6 10*3/uL 4.4-11.0 [facility] CNPNon 11-18-2024 FELICIAN Telephone (FAMPWS) MARY CRANE ([id number]) 1940 F TXT Date Time Provider Department 11/18/24 ATUL HARVEY During your visit today, we recorded the following information about you: Kimi Wyatt RN 11/18/2024 8:19 AM Signed Daughter reports patient fell 2 days ago in the [facility] restroom. Daughter was waiting in her car. Noone witnessed the fall. Reports patient called daughter and daughter went inside to help patient. Reports patient must have tripped herself and came down on her left side, hit her left ear on the sink on the way down. Reports patient's ear is black and blue and ear is swollen, and it hurts to put an icepack on it. Reports patient wears a hearing aid in that ear. Reports patient's left shoulder is black and blue, ribs are black and blue, hip and lower back are black and blue. Reports patient is able to walk today, and daughter requesting same day appt. Patient takes eliquis. Advised to ER to r/o any broken bones or internal bleed. Daughter agreeable. Allergies As of Date: 11/18/2024 Noted Allergy Reaction FLOXIN (OFLOXACIN) 09/10/2005 10 - Anaphylaxis BUMEX (BUMETANIDE) 09/10/2005 5 - Intolerance HYDROCHLOROTHIAZIDE 09/10/2005 2 - Rash 5 - Intolerance Comments: leucocytoclastic vasculitis KEFLEX (CEPHALEXIN) 09/10/2005 2 - Rash NAPROXEN 09/10/2005 2 - Rash 4 - Hives NORVASC (AMLODIPINE BESYLATE) 09/10/2005 5 - Intolerance PENICILLINS 09/10/2005 5 - Intolerance Comments: Rash PROCTOSOL (HYDROCORTISONE ACETATE)09/10/2005 5 - Intolerance SULFA (SULFONAMIDE ANTIBIOTICS) 09/10/2005 2 - Rash 8 - GI Upset COLCHICINE 10/17/2005 4 - Hives MINOXIDIL 03/24/2011 14 - Other: See Comments Comments: facial hair Date Reviewed: 11/11/2024 Reviewed by: Tatyana Hennessy LPN - Fully Assessed Reason for Visit: Patient fall [Other] Prescriptions as of 11/18/2024 - doxycycline (VIBRA-TABS) 100 mg tablet Take 1 tablet by mouth two times a day for 7 days. - amiodarone (PACERONE) 200 mg tablet Take 1 tablet by mouth once daily. - apixaban (ELIQUIS) 5 mg tab(s) Take 1 tablet by mouth two times a day. - losartan (COZAAR) 50 mg tablet Take 1 tablet by mouth once daily. - metoprolol tartrate, short acting, (LOPRESSOR) 100 mg tablet Take 1 tablet by mouth two times a day. - furosemide (LASIX) 40 mg tablet Take 1 tablet by mouth once daily. - cholecalciferol, Vitamin D3, (VITAMIN D3) 1,250 mcg (50,000 unit) cap capsule Take 1 capsule by mouth one time a week. - potassium chloride ER (KLOR-CON M10) 10 mEq tablet Take 1 tablet by mouth two times a day. - rosuvastatin (CRESTOR) 10 mg tablet Take 1 tablet by mouth once daily. - nystatin (NYSTOP) powder Apply 1 application to affected area four times a day as needed. Yeast infection/rash in groin and under breasts - ketoconazole (NIZORAL) 2 % cream Apply to affected area two times a day. - levothyroxine (LEVOXYL) 25 mcg tablet Take 1 tablet by mouth once daily. Take on empty stomach. For Thyroid - folic acid 1 mg tablet Take 2 tablets by mouth once daily. - triamcinolone acetonide (KENALOG) 0.1 % cream Apply 1 application to affected area two times a day as needed (rash). Apply sparingly to area for rash/itching. - allopurinol (ZYLOPRIM) 100 mg tablet Take 1 tablet by mouth once daily. - Cholecalciferol, Vitamin D3, 50 mcg (2,000 unit) cap Take 1 capsule by mouth once daily. - dicyclomine (BENTYL) 10 mg capsule Take 1 capsule by mouth before meals and at bedtime. For diarrhea or abdominal cramping - cyanocobalamin (VITAMIN B-12) 1,000 mcg tab Take 1,000 mcg by mouth once daily. - triamcinolone acetonide (KENALOG) 0.1 % cream Apply 1 application to affected area twice daily. On rash, Apply sparingly to area for rash/itching. - vit A/vit C/vit E/zinc/copper (OCUVITE PRESERVISION ORAL) Take by mouth twice daily. - apremilast (OTEZLA) 30 mg tablet Take 30 mg by mouth twice daily. - hydrocortisone probutate 0.1 % crea Apply to affected area once daily as needed. - loratadine (CLARITIN) 10 mg tablet Take 10 mg by mouth once daily. Takes daily as needed - acetaminophen (TYLENOL) 325 mg tablet Take 650 mg by mouth every 6 hours as needed. Problem List As Of Date 11/18/2024 Noted Resolved Benign neoplasm of colon [D12.6] 09/30/2005 02/24/2020 DIVERTICULOSIS OF COLON W/O BLEED [K57.30] 09/30/2005 Internal hemorrhoids without mention of complic*09/30/2005 02/24/2020 CARPAL TUNNEL SYNDROME [G56.00] 10/17/2005 03/12/2006 LOC PRIM OSTEOARTH-HAND [M19.049] 10/17/2005 Other tenosynovitis of hand and wrist [M65.849,*10/17/2005 02/24/2020 Follow-up examination, following unspecified lindsay*02/26/2006 02/08/2015 Rheumatoid arthritis involving multiple sites w*02/27/2006 CARPAL TUNNEL SYNDROME [G56.00] 03/17/2006 HYPERTENSION NOS [I10] 05/30/2014 Sicca syndrome (HCC) [M35.00] 11/29/2021 Sialoadenitis (more content not included)... [facility] ([id number]) 1940 F TXT Date Time Provider Department 11/16/24 ATUL HARVEY FAMPWS During your visit today, we recorded the following information about you: YusufElizabeth tucker JANY Barnhart 11/16/2024 3:38 PM Signed Pt calling to see if she can take her Lasix 40 mg at 5 pm instead of in the am. Pt reports she has to run to the bathroom all day. Pt also takes her Potassium at 5 pm. Please advise pt. JANY Odonnell Alyson Taylor, APRN.FELICIA 11/17/2024 7:57 AM Signed Yes, ok to try this. Milana Armijo APRN.Ellen Hicks LPN 11/17/2024 8:45 AM Signed Spoke wit pt gave information provided. Pt voices understanding. Allergies As of Date: 11/16/2024 Noted Allergy Reaction FLOXIN (OFLOXACIN) 09/10/2005 10 - Anaphylaxis BUMEX (BUMETANIDE) 09/10/2005 5 - Intolerance HYDROCHLOROTHIAZIDE 09/10/2005 2 - Rash 5 - Intolerance Comments: leucocytoclastic vasculitis KEFLEX (CEPHALEXIN) 09/10/2005 2 - Rash NAPROXEN 09/10/2005 2 - Rash 4 - Hives NORVASC (AMLODIPINE BESYLATE) 09/10/2005 5 - Intolerance PENICILLINS 09/10/2005 5 - Intolerance Comments: Rash PROCTOSOL (HYDROCORTISONE ACETATE)09/10/2005 5 - Intolerance SULFA (SULFONAMIDE ANTIBIOTICS) 09/10/2005 2 - Rash 8 - GI Upset COLCHICINE 10/17/2005 4 - Hives MINOXIDIL 03/24/2011 14 - Other: See Comments Comments: facial hair Date Reviewed: 11/11/2024 Reviewed by: Tatyana Hennessy LPN - Fully Assessed Reason for Visit: Medication Question [1478] Prescriptions as of 11/17/2024 - doxycycline (VIBRA-TABS) 100 mg tablet Take 1 tablet by mouth two times a day for 7 days. - amiodarone (PACERONE) 200 mg tablet Take 1 tablet by mouth once daily. - apixaban (ELIQUIS) 5 mg tab(s) Take 1 tablet by mouth two times a day. - losartan (COZAAR) 50 mg tablet Take 1 tablet by mouth once daily. - metoprolol tartrate, short acting, (LOPRESSOR) 100 mg tablet Take 1 tablet by mouth two times a day. - furosemide (LASIX) 40 mg tablet Take 1 tablet by mouth once daily. - cholecalciferol, Vitamin D3, (VITAMIN D3) 1,250 mcg (50,000 unit) cap capsule Take 1 capsule by mouth one time a week. - potassium chloride ER (KLOR-CON M10) 10 mEq tablet Take 1 tablet by mouth two times a day. - rosuvastatin (CRESTOR) 10 mg tablet Take 1 tablet by mouth once daily. - nystatin (NYSTOP) powder Apply 1 application to affected area four times a day as needed. Yeast infection/rash in groin and under breasts - ketoconazole (NIZORAL) 2 % cream Apply to affected area two times a day. - levothyroxine (LEVOXYL) 25 mcg tablet Take 1 tablet by mouth once daily. Take on empty stomach. For Thyroid - folic acid 1 mg tablet Take 2 tablets by mouth once daily. - triamcinolone acetonide (KENALOG) 0.1 % cream Apply 1 application to affected area two times a day as needed (rash). Apply sparingly to area for rash/itching. - allopurinol (ZYLOPRIM) 100 mg tablet Take 1 tablet by mouth once daily. - Cholecalciferol, Vitamin D3, 50 mcg (2,000 unit) cap Take 1 capsule by mouth once daily. - dicyclomine (BENTYL) 10 mg capsule Take 1 capsule by mouth before meals and at bedtime. For diarrhea or abdominal cramping - cyanocobalamin (VITAMIN B-12) 1,000 mcg tab Take 1,000 mcg by mouth once daily. - triamcinolone acetonide (KENALOG) 0.1 % cream Apply 1 application to affected area twice daily. On rash, Apply sparingly to area for rash/itching. - vit A/vit C/vit E/zinc/copper (OCUVITE PRESERVISION ORAL) Take by mouth twice daily. - apremilast (OTEZLA) 30 mg tablet Take 30 mg by mouth twice daily. - hydrocortisone probutate 0.1 % crea Apply to affected area once daily as needed. - loratadine (CLARITIN) 10 mg tablet Take 10 mg by mouth once daily. Takes daily as needed - acetaminophen (TYLENOL) 325 mg tablet Take 650 mg by mouth every 6 hours as needed. Problem List As Of Date 11/16/2024 Noted Resolved Benign neoplasm of colon [D12.6] 09/30/2005 02/24/2020 DIVERTICULOSIS OF COLON W/O BLEED [K57.30] 09/30/2005 Internal hemorrhoids without mention of complic*09/30/2005 02/24/2020 CARPAL TUNNEL SYNDROME [G56.00] 10/17/2005 03/12/2006 LOC PRIM OSTEOARTH-HAND [M19.049] 10/17/2005 Other tenosynovitis of hand and wrist [M65.849,*10/17/2005 02/24/2020 Follow-up examination, following unspecified lindsay*02/26/2006 02/08/2015 Rheumatoid arthritis involving multiple sites w*02/27/2006 CARPAL TUNNEL SYNDROME [G56.00] 03/17/2006 HYPERTENSION NOS [I10] 05/30/2014 Sicca syndrome (HCC) [M35.00] 11/29/2021 Sialoadenitis [K11.20] 09/04/2008 02/24/2020 Gout [M10.9] 11/18/2010 Hypertension [I10] 12/18/2010 05/29/2016 Pulmonary hypertension [I27.20] 08/27/2011 Sjogren's syndrome [M35.00] 03/04/2013 Dysphagia, unspecified(787.20) [R13.10] 12/21/2014 12/21/2014 Esophageal reflux [K21.9] 12/21/2014 12/21/2014 Nausea alone [R11.0] 03 (more content not included)... Normal [facility] CNOVon 11-11-2024 CNOV Office Visit (UCWSTR ) MARY CRANE ([id number]) 1940 F TXT Date Time Provider Department 11/11/24 6:15 PM MARIA E BREWSTER WSTR During your visit today, we recorded the following information about you: Temperature Pulse Respiration Blood pressure 98.7 degrees 70/minute 22/minute 147/77 Weight 69 kg Maria E Brewster APRN.CNP 11/11/2024 6:25 PM Signed CC: Patient presents with: Pain, Sinus: Pressure and pain in upper cheeks, headache, runny nose, chest congestion x 3 days HPI: Mary Crane is a 84 year old female who presents to the office with complaint of head congestion and sinus symptoms for a week. Symptoms are staying the same. Associated symptoms includes nasal congestion and facial pain/pressure. Denies wheezing, dyspnea, nausea, vomiting , and diarrhea. Treatments tried include nothing so far. with no relief of symptoms. Sick contacts: unknown. History of asthma, frequent episodes of bronchitis, chronic bronchitis, bronchiectasis or COPD: No Smoker: No Seasonal/environmental allergies: No The ROS is otherwise negative. The patient's pmh, medications, allergies, and past visits are reviewed. PHYSICAL EXAM: BP 147/77 Pulse 70 Temp 37.1 ?C (98.7 ?F) Resp 22 Wt 69 kg (152 lb 1.9 oz) SpO2 96% BMI 26.95 kg/m? General appearance: alert, cooperative, pleasant, in no acute distress Head: Normocephalic Eyes: EOM's intact, conjunctiva pink and moist, no icterus, sclera white, non-injected Ears: Right ear: External ear/canal- Normal, TM - clear with good landmarks. Left ear: External ear/canal- Normal, TM - clear with good landmarks Oropharynx:moist without lesions, No erythema, exudates or tonsillar hypertrophy. Heart: Negative. RRR without obvious murmur, gallop, or rubs. No ectopy. Lungs: clear to auscultation, without rales or wheeze, good air exchange PAST MEDICAL HISTORY Diagnosis Date Advance care planning 04/01/2022 Daughter Noemy Arrhythmia Benign neoplasm of colon Chronic kidney disease 02/09/2015 Diverticulosis of colon (without mention of hemorrhage) IFG (impaired fasting glucose) 03/2022 Incisional hernia 07/06/2015 Internal hemorrhoids without mention of complication Rheumatoid arthritis(714.0) Rheumatoid arthritis(714.0) Sicca syndrome (HCC) Unspecified essential hypertension PAST SURGICAL HISTORY Procedure Laterality Date CATARACT EXTRACTION HX 10/12/2004 COLONOSCOPY FLX DX W/COLLJ SPEC WHEN PFRMD 09/30/2005 Colonoscopy COLONOSCOPY FLX DX W/COLLJ SPEC WHEN PFRMD 07/28/2016 Colonoscopy COLONOSCOPY SCREENING 09/30/2022 multiple adenomatous polyps, repeat in 3 yrs ESOPHAGOGASTRODUODENOS COPY TRANSORAL DIAGNOSTIC 12/21/2014 EGD LAPAROSCOPY SURG CHOLECYSTECTOMY 02/20/2015 NEUROPLASTY AND/TRANSPOS MEDIAN NRV CARPAL TUNNE 02/12/2006 Carpal tunnel decomp Left NEUROPLASTY AND/TRANSPOS MEDIAN NRV CARPAL TUNNE 02/27/2006 Carpal tunnel decomp Right PAST SURGICAL HISTORY OF 10/12/2001 hemorrhoidectomy , bladder, and umbilical hernia repair PAST SURGICAL HISTORY OF 08/12/2006 bladder suspension REPAIR FIRST ABDOMINAL WALL HERNIA 07/06/2015 with mesh VAGINAL HYSTERECTOMY UTERUS 250 GM/< 10/12/1983 Hysterectomy, vaginal and bladder tacked up ALLERGIES Floxin [Ofloxacin], Bumex [Bumetanide], Hydrochlorothiazide, Keflex [Cephalexin], Naproxen, Norvasc [Amlodipine Besylate], Penicillins, Proctosol [Hydrocortisone Acetate], Sulfa (Sulfonamide Antibiotics), Colchicine, and Minoxidil MEDICATIONS amiodarone (PACERONE) 200 mg tablet Take 1 tablet by mouth once daily. apixaban (ELIQUIS) 5 mg tab(s) Take 1 tablet by mouth two times a day. losartan (COZAAR) 50 mg tablet Take 1 tablet by mouth once daily. metoprolol tartrate, short acting, (LOPRESSOR) 100 mg tablet Take 1 tablet by mouth two times a day. furosemide (LASIX) 40 mg tablet Take 1 tablet by mouth once daily. cholecalciferol, Vitamin D3, (VITAMIN D3) 1,250 mcg (50,000 unit) cap capsule Take 1 capsule by mouth one time a week. potassium chloride ER (KLOR-CON M10) 10 mEq tablet Take 1 tablet by mouth two times a day. rosuvastatin (CRESTOR) 10 mg tablet Take 1 tablet by mouth once daily. nystatin (NYSTOP) powder Apply 1 application to affected area four times a day as needed. Yeast infection/rash in groin and under breasts ketoconazole (NIZORAL) 2 % cream Apply to affected area two times a day. (Patient taking differently: Apply to affected area two times a day. PRN) levothyroxine (LEVOXYL) 25 mcg tablet Take 1 tablet by mouth once daily. Take on empty stomach. For Thyroid folic acid 1 mg tablet Take 2 tablets by mouth once daily. triamcinolone acetonide (KENALOG) 0.1 % cream Apply 1 application to affected area two times a day as needed (rash). Apply sparingly to area for rash/itching. allopurinol (ZYLOPRIM) 100 mg tablet Take 1 tablet by mouth once asai (more content not included)... Normal [facility] CNOVon 11-07-2024 CNOV Office Visit (BULMARO ) MARY CRANE ([id number]) 1940 F TXT Date Time Provider Department 11/07/24 10:20 AM RASHEED BARRIOS During your visit today, we recorded the following information about you: Pulse Respiration Blood pressure Weight 71/minute 14/minute 140/90 68.5 kg Height 1.6 m Rasheed Barrios MD 11/07/2024 10:57 AM Signed [facility] Cardiology ([facility]) [address] [facility] [id number] OUTPATIENT VISIT DATE 11/07/2024 PRIMARY CARE PHYSICIAN: Atul Harvey [address] [place] [address] HISTORY OF PRESENT ILLNESS: Ms. Crane is a 84 year old woman with history of paroxysmal atrial fibrillation, mild pulmonary hypertension, essential hypertension, and rheumatoid arthritis who presents to the office for follow-up after hospital admission. Patient was admitted with RSV and developed A-fib with rapid ventricular response. She was placed on appropriate medical therapy. Since hospital discharge she has been feeling much better. Her functional capacity is markedly improved. She has not had feelings of palpitations or heart racing. PAST MEDICAL HISTORY Diagnosis Date Advance care planning 04/01/2022 Daughter Noemy Arrhythmia Benign neoplasm of colon Chronic kidney disease 02/09/2015 Diverticulosis of colon (without mention of hemorrhage) IFG (impaired fasting glucose) 03/2022 Incisional hernia 07/06/2015 Internal hemorrhoids without mention of complication Rheumatoid arthritis(714.0) Rheumatoid arthritis(714.0) Sicca syndrome (HCC) Unspecified essential hypertension PAST SURGICAL HISTORY Procedure Laterality Date CATARACT EXTRACTION HX 10/12/2004 COLONOSCOPY FLX DX W/COLLJ SPEC WHEN PFRMD 09/30/2005 Colonoscopy COLONOSCOPY FLX DX W/COLLJ SPEC WHEN PFRMD 07/28/2016 Colonoscopy COLONOSCOPY SCREENING 09/30/2022 multiple adenomatous polyps, repeat in 3 yrs ESOPHAGOGASTRODUODENOS COPY TRANSORAL DIAGNOSTIC 12/21/2014 EGD LAPAROSCOPY SURG CHOLECYSTECTOMY 02/20/2015 NEUROPLASTY AND/TRANSPOS MEDIAN NRV CARPAL TUNNE 02/12/2006 Carpal tunnel decomp Left NEUROPLASTY AND/TRANSPOS MEDIAN NRV CARPAL TUNNE 02/27/2006 Carpal tunnel decomp Right PAST SURGICAL HISTORY OF 10/12/2001 hemorrhoidectomy , bladder, and umbilical hernia repair PAST SURGICAL HISTORY OF 08/12/2006 bladder suspension REPAIR FIRST ABDOMINAL WALL HERNIA 07/06/2015 with mesh VAGINAL HYSTERECTOMY UTERUS 250 GM/< 10/12/1983 Hysterectomy, vaginal and bladder tacked up SOCIAL HISTORY Social History Tobacco Use Smoking status: Never Smokeless tobacco: Never Vaping Use Vaping status: Never Used Substance Use Topics Alcohol use: No Drug use: No FAMILY HISTORY Problem Relation Age of Onset Diabetes Mother Hypertension Mother Heart Father Diabetes Sister No Known Problems Sister No Known Problems Brother Heart Brother No Known Problems Brother ALLERGIES: ALLERGIES Allergen Reactions Floxin [Ofloxacin] Anaphylaxis Bumex [Bumetanide] Intolerance Hydrochlorothiazide Rash, Intolerance leucocytoclastic vasculitis Keflex [Cephalexin] Rash Naproxen Rash, Hives Norvasc [Amlodipine* Intolerance Penicillins Intolerance Rash Proctosol [Hydrocor* Intolerance Sulfa (Sulfonamide * Rash, GI Upset Colchicine Hives Minoxidil Other: See Comments facial hair MEDICATIONS: losartan (COZAAR) 50 mg tablet Take 1 tablet by mouth once daily. metoprolol tartrate, short acting, (LOPRESSOR) 100 mg tablet Take 1 tablet by mouth two times a day. amiodarone (PACERONE) 200 mg tablet Take 1 tablet by mouth two times a day. apixaban (ELIQUIS) 5 mg tab(s) Take 1 tablet by mouth two times a day. furosemide (LASIX) 40 mg tablet Take 1 tablet by mouth once daily. cholecalciferol, Vitamin D3, (VITAMIN D3) 1,250 mcg (50,000 unit) cap capsule Take 1 capsule by mouth one time a week. potassium chloride ER (KLOR-CON M10) 10 mEq tablet Take 1 tablet by mouth two times a day. rosuvastatin (CRESTOR) 10 mg tablet Take 1 tablet by mouth once daily. nystatin (NYSTOP) powder Apply 1 application to affected area four times a day as needed. Yeast infection/rash in groin and under breasts ketoconazole (NIZORAL) 2 % cream Apply to affected area two times a day. (Patient taking differently: Apply to affected area two times a day. PRN) levothyroxine (LEVOXYL) 25 mcg tablet Take 1 tablet by mouth once daily. Take on empty stomach. For Thyroid folic acid 1 mg tablet Take 2 tablets by mouth once daily. triamcinolone acetonide (KENALOG) 0.1 % cream Apply 1 application to affected area two times a day as needed (rash). Apply sparingly to area for rash/itching. allopurinol (ZYLOPRIM) 100 mg tablet Take 1 tablet by mouth once daily. (more content not included)... Normal [facility] 10-26-2024 [facility] Telephone ([facility]) MARY CRANE ([id number]) 1940 F TXT Date Time Provider Department 10/26/24 [facility] your visit today, we recorded the following information about you: Christel Wagner RN 10/26/2024 12:00 PM Signed Pt called in and reports she just got out of the hospital 4 days ago. She had an appointment yesterday with Catalina Jauregui [employer]W [employer]PERATOR, but forgot to tell her about having constipation. Pt states since she has gotten out of the hospital she has been feeling constipated. She states she had a small BM 2 days ago. Today she feels pressure like she needs to have a BM, but can't go. Pt was asking what the provider would recommend she take with all the other medication she is on. She was asking if a stool softener would be ok. Catalina Jauregui APRN.CNP 10/26/2024 1:08 PM Signed Yes a stool softener would be fine to try. Catalina Jauregui APRN.Lulú Perez MA 10/26/2024 2:14 PM Signed Pt informed, verbalized understanding. Pt reports she will take one before dinner. Lulú Tang MA Allergies As of Date: 10/26/2024 Noted Allergy Reaction FLOXIN (OFLOXACIN) 09/10/2005 10 - Anaphylaxis BUMEX (BUMETANIDE) 09/10/2005 5 - Intolerance HYDROCHLOROTHIAZIDE 09/10/2005 2 - Rash 5 - Intolerance Comments: leucocytoclastic vasculitis KEFLEX (CEPHALEXIN) 09/10/2005 2 - Rash NAPROXEN 09/10/2005 2 - Rash 4 - Hives NORVASC (AMLODIPINE BESYLATE) 09/10/2005 5 - Intolerance PENICILLINS 09/10/2005 5 - Intolerance Comments: Rash PROCTOSOL (HYDROCORTISONE ACETATE)09/10/2005 5 - Intolerance SULFA (SULFONAMIDE ANTIBIOTICS) 09/10/2005 2 - Rash 8 - GI Upset COLCHICINE 10/17/2005 4 - Hives MINOXIDIL 03/24/2011 14 - Other: See Comments Comments: facial hair Date Reviewed: 10/25/2024 Reviewed by: Lulú Tang MA - Fully Assessed Reason for Visit: Patient Update [1364] Patient Question [1577] Prescriptions as of 10/26/2024 - losartan (COZAAR) 50 mg tablet Take 1 tablet by mouth once daily. - metoprolol tartrate, short acting, (LOPRESSOR) 100 mg tablet Take 1 tablet by mouth two times a day. - amiodarone (PACERONE) 200 mg tablet Take 1 tablet by mouth two times a day. - apixaban (ELIQUIS) 5 mg tab(s) Take 1 tablet by mouth two times a day. - furosemide (LASIX) 40 mg tablet Take 1 tablet by mouth once daily. - cholecalciferol, Vitamin D3, (VITAMIN D3) 1,250 mcg (50,000 unit) cap capsule Take 1 capsule by mouth one time a week. - potassium chloride ER (KLOR-CON M10) 10 mEq tablet Take 1 tablet by mouth two times a day. - rosuvastatin (CRESTOR) 10 mg tablet Take 1 tablet by mouth once daily. - nystatin (NYSTOP) powder Apply 1 application to affected area four times a day as needed. Yeast infection/rash in groin and under breasts - ketoconazole (NIZORAL) 2 % cream Apply to affected area two times a day. - levothyroxine (LEVOXYL) 25 mcg tablet Take 1 tablet by mouth once daily. Take on empty stomach. For Thyroid - folic acid 1 mg tablet Take 2 tablets by mouth once daily. - triamcinolone acetonide (KENALOG) 0.1 % cream Apply 1 application to affected area two times a day as needed (rash). Apply sparingly to area for rash/itching. - allopurinol (ZYLOPRIM) 100 mg tablet Take 1 tablet by mouth once daily. - Cholecalciferol, Vitamin D3, 50 mcg (2,000 unit) cap Take 1 capsule by mouth once daily. - dicyclomine (BENTYL) 10 mg capsule Take 1 capsule by mouth before meals and at bedtime. For diarrhea or abdominal cramping - cyanocobalamin (VITAMIN B-12) 1,000 mcg tab Take 1,000 mcg by mouth once daily. - triamcinolone acetonide (KENALOG) 0.1 % cream Apply 1 application to affected area twice daily. On rash, Apply sparingly to area for rash/itching. - vit A/vit C/vit E/zinc/copper (OCUVITE PRESERVISION ORAL) Take by mouth twice daily. - apremilast (OTEZLA) 30 mg tablet Take 30 mg by mouth twice daily. - hydrocortisone probutate 0.1 % crea Apply to affected area once daily as needed. - loratadine (CLARITIN) 10 mg tablet Take 10 mg by mouth once daily. Takes daily as needed - acetaminophen (TYLENOL) 325 mg tablet Take 650 mg by mouth every 6 hours as needed. Problem List As Of Date 10/26/2024 Noted Resolved Benign neoplasm of colon [D12.6] 09/30/2005 02/24/2020 DIVERTICULOSIS OF COLON W/O BLEED [K57.30] 09/30/2005 Internal hemorrhoids without mention of complic*09/30/2005 02/24/2020 CARPAL TUNNEL SYNDROME [G56.00] 10/17/2005 03/12/2006 LOC PRIM OSTEOARTH-HAND [M19.049] 10/17/2005 Other tenosynovitis of hand and wrist [M65.849,*10/17/2005 02/24/2020 Follow-up examination, following unspecified lindsay*02/26/2006 02/08/2015 Rheumatoid arthritis involving multiple sites w*02/27/2006 CARPAL TUNNEL SYNDROME [G56.00] 03/17/2006 HYPERTENSION NOS [I10] 05/30/2014 Sicca syndrome (HCC) [M35.00] 11/29/2021 Sialoadenitis [K11.20] (more content not included)... Normal [facility] CNOVon 10-25-2024 CNOV Office Visit (FAMPWS ) MARY CRANE ([id number]) 1940 F TXT Date Time Provider Department 10/25/24 10:20 AM CATALINA JAUREGUIPWS During your visit today, we recorded the following information about you: Pulse Blood pressure Weight 73/minute 112/72 68.8 kg Catalina Jauregui APRN.GROCERY BAGGER 10/25/2024 11:18 AM Signed Transitional Care Management TCM Eligibility Documentation Program: Transitional Care Management Status: Enrolled Effective Dates: 10/24/2024 - present Responsible Staff: Kirstin Reyes RN Discharge date: 10/18/2024 (Program start) Date of initial contact: 10/24/2024 Initial contact Target status: Successful; Contact made within 2 business days post-discharge Provider Documentation Mary Crane is a 84 year old female here today for a follow up from recent hospitalization. I have reviewed the patient's hospital course including discharge summary, discharge medications , and follow up needs with the patient and any family members present at today's visit. HPI Thinks she may have gotten sick from a family member at [place]-got sick about 6 days later. Started with stuffy nose and then drippy nose and a little bit of a cough. On 10/12 came to express care and then was sent to [facility] ER and admitted. Was dx with RSV and admitted to the hospital-there for 6 days. Has had irregular heart beat in the past. Was dx with new onset a-fib with RVR. Had a Cardizem gtt in the hospital. Has appt with boring mill operator for metal Dr. Barrios on 11/07. Overall feeling a lot better. Drinking a lot of water and protein drinks. Daughter is doing as much as she can to get her to eat healthier. Breathing, wheezing is much better. Coughing a little but nothing major. Is doing the breathing exercises she was given at the hospital. PHYSICAL EXAMINATION BP 112/72 (BP Site: Left Arm, BP Position: Sitting, BP Cuff Size: Regular Adult) Pulse 73 Wt 68.8 kg (151 lb 9.6 oz) SpO2 98% BMI 26.85 kg/m? GENERAL: well appearing, alert, in no acute distress and weak HEART: irregular LUNGS: faint inspiratory wheeze to RUL EXTREMITIES: no lower extremity edema. No skin discoloration. ASSESSMENT/PLAN: 1. New onset a-fib (HCC) - ICD9: 427.31, ICD10: I48.91 (primary diagnosis) Continue with medications as prescribed at [facility]. Continue with cardiology at the end of this month. Continue with PCP f/u in January F/u as needed. 2. Encounter for immunization - ICD9: V03.89, ICD10: Z23 She will get her RSV shot at the pharmacy in 4-6 weeks. 3. RSV (acute bronchiolitis due to respiratory syncytial virus) - ICD9: 466.11, ICD10: J21.0 Continue with medications as prescribed at [facility]. Continue with cardiology at the end of this month. Continue with PCP f/u in January F/u as needed. 4. Generalized weakness - ICD9: 780.79, ICD10: R53.1 Continue with medications as prescribed at [facility]. Continue with cardiology at the end of this month. Continue with PCP f/u in January F/u as needed. 5. Decreased appetite - ICD9: 783.0, ICD10: R63.0 Continue with medications as prescribed at [facility]. Continue with cardiology at the end of this month. Continue with PCP f/u in January F/u as needed. Continue with increasing water and protein intake. Catalina Jauregui APRN.Catalina Moralez APRN.CNP 10/25/2024 10:51 AM Signed In about a month (mid-November) go to the pharmacy to get your RSV shot. Referring Provider: SELF [[id number]] Allergies As of Date: 10/25/2024 Noted Allergy Reaction FLOXIN (OFLOXACIN) 09/10/2005 10 - Anaphylaxis BUMEX (BUMETANIDE) 09/10/2005 5 - Intolerance HYDROCHLOROTHIAZIDE 09/10/2005 2 - Rash 5 - Intolerance Comments: leucocytoclastic vasculitis KEFLEX (CEPHALEXIN) 09/10/2005 2 - Rash NAPROXEN 09/10/2005 2 - Rash 4 - Hives NORVASC (AMLODIPINE BESYLATE) 09/10/2005 5 - Intolerance PENICILLINS 09/10/2005 5 - Intolerance Comments: Rash PROCTOSOL (HYDROCORTISONE ACETATE)09/10/2005 5 - Intolerance SULFA (SULFONAMIDE ANTIBIOTICS) 09/10/2005 2 - Rash 8 - GI Upset COLCHICINE 10/17/2005 4 - Hives MINOXIDIL 03/24/2011 14 - Other: See Comments Comments: facial hair Date Reviewed: 10/25/2024 Reviewed by: Lulú Tang MA - Fully Assessed Reason for Visit: Hospital Follow Up [177] Cmt: [facility] RSV AND afib, discharged 10/18 Primary Visit Diagnosis:New onset a-fib (HCC) [I48.91] Other Visit Diagnoses:Encounter for immunization [Z23] RSV (acute bronchiolitis due to respiratory syncytial virus) [J21.0] Generalized weakness [R53.1] Decreased appetite [R63.0] Order(s):losartan (COZAAR) 50 mg tabletTake 1 tablet by mouth once daily.Disp: Rfl: metoprolol tartrate, short acting, (LOPRESSOR) 100 mg tabletTake 1 tablet by mouth two times a day.Disp: Rfl: amiodarone (PACERONE) 200 mg tabletTake 1 tablet by mouth two times a day.Disp: Rfl: apixaban (ELIQUIS) 5 mg tab(s)Take 1 tablet by mouth two times a day.Dis (more content not included)... Normal [facility] Culture, Blood (WB)on 2024 CUB No growth in 5 days. Normal [facility] Comment on above: Performed By: #### L 100.0100 #### [facility] [address] [place], [address] Absolute neutrophil countOrd ered By: Rasheed Ledezma on 10-16-2024 Neutrophils (Bld) [#/Vol] 8.4 10*3/uL High 2.0-7.7 [facility] Amiodaroneon 10-16-2024 AMIODARONE Normal [facility] Comment on above: Result Comment: CANC ELLED Performed By: #### L 100.0100, L500.4050 #### [facility] [address] [place], [address] Noramiodarone Normal [facility] Comment on above: Result Comment: CANC ELLED Performed By: #### L 100.0100, L500.4050 #### [facility] [address] [place], [address] Atypical lymphocyte percenta geOrdered By: Rasheed Ledezma on 10-16-2024 Atypical Lymphocytes 1+ % [facility] Basic Metabolic Profile (BMP )on 10-16-2024 BUN/CRE 24.1 RATIO High 10-20 [facility] Comment on above: Performed By: #### L 100.0100, L500.4050 #### [facility] [address] [place], [address] CA,Total 9.3 mg/dL Normal 8.5-10.1 [facility] Comment on above: Performed By: #### L 100.0100, L500.4050 #### [facility] [address] [place], [address] Chloride [Moles/Vol] 99 mmol/L Normal 98-107 [facility] Comment on above: Performed By: #### L 100.0100, L500.4050 #### [facility] [address] [place], [address] CO2 [Moles/Vol] 25.0 mmol/L Normal 21.0-32.0 [facility] Comment on above: Performed By: #### L 100.0100, L500.4050 #### [facility] [address] [place], [address] Creatinine [Mass/Vol] 1.08 mg/dL High 0.55-1.02 [facility] Comment on above: Result Comment: The validity of the calculated GFR GFRAA in patients over 70 years has not been determined. Clinical correlation is essential. Performed By: #### L 100.0100, L500.4050 #### [facility] [address] [place], [address] ECRCL 35.64 ml/min Normal [facility] Comment on above: Performed By: #### L 100.0100, L500.4050 #### [facility] [address] [place], [address] EST GFR - AA 62 mL/min Normal >60 [facility] Comment on above: Result Comment: Afri can Nauruan GFR Calc Performed By: #### L 100.0100, L500.4050 #### [facility] [address] [place], [address] GAP 7 Normal 5-15 [facility] Comment on above: Performed By: #### L 100.0100, L500.4050 #### [facility] [address] [place], [address] GFR/1.73 sq M.predicted among non-blacks MDRD (S/P/Bld) [Vol rate/Area] 51 mL/min/{1.73_m2} Low >60 [facility] Comment on above: Result Comment: Non- GFR Calc Performed By: #### L 100.0100, L500.4050 #### [facility] [address] [place], [address] Glucose [Mass/Vol] 140 mg/dL High 74-106 [facility] Comment on above: Result Comment: Fast ing Glucose result greater than or equal to 126 mg/dL suggests DIABETES MELLITUS per A.D.A. criteria. Performed By: #### L 100.0100, L500.4050 #### [facility] [address] [place], [address] Potassium [Moles/Vol] 4.1 mmol/L Normal 3.5-5.1 [facility] Comment on above: Performed By: #### L 100.0100, L500.4050 #### [facility] [address] [place], [address] Sodium [Moles/Vol] 132 mmol/L Low 136-145 [facility] Comment on above: Performed By: #### L 100.0100, L500.4050 #### [facility] [address] [place], [address] Urea nitrogen [Mass/Vol] 26 mg/dL High 7-18 [facility] Comment on above: Performed By: #### L 100.0100, L500.4050 #### [facility] [address] [place], [address] Basophil percentageOrdered B y: Rasheed Ledezma on 10-16-2024 Basophils/100 WBC (Bld) 0.5 % 0-1 [facility] Blood urea nitrogen (BUN)/cr eatinine ratioOrdered By: Rasheed Ledezma on 10-16-2024 Urea nitrogen/Creatinine [Mass ratio] 24.1 mg/mg High 10-20 [facility] CBC W/Diff, Automatedon ATYPICAL LYMPH 1+ Normal [facility] Comment on above: Performed By: #### L 100.0100, L500.4050 #### [facility] [address] [facility] [place], [address] Carbon dioxide measurementOr dered By: Rasheed Ledezma on 10-16-2024 CO2 [Moles/Vol] 25.0 mmol/L 21.0-32.0 [facility] Chloride measurementOrdered By: Rasheed Ledezma on 10-16-2024 Chloride [Moles/Vol] 99 mmol/L 98-107 [facility] Consultation - Cardiologyon 10-16-2024 Consultation - Cardiology [facility] Medical Records Department [address] [place] [address] Consultation - Cardiology 10/16/24 0948 MR#: [id number] Acct: [id number] Name: MARY CRANE Rep #: [id number] : 1940 84 From: Mario Hagen MD PCP: Dr. Atul Harvey, DO Status:ADM IN Location: [place] [address] Assessment Plan Assessment/Plan (1) Atrial fibrillation with RVR: PLAN: At the moment she has atrial fibrillation with an uncontrolled ventricular response rate. She is on diltiazem, beta-sadie, and anticoagulation. * Will recommend that we increase the metoprolol to 50 mg twice a day from this morning * Add amiodarone 200 mg twice a day * Continue diltiazem for now * Continue anticoagulation * Will see how she does over the next 24 hours and make further adjustments. (2) Hypertension: PLAN: Her blood pressure appears to be under better control at this time. I would not recommend that we restart the clonidine Thank you for allowing me to participate in the care of your patient. Please don't hesitate to call if any issues arise. HPI Consult Data Date of Consult: 10/16/24 HPI Narrative HPI Narrative: MARY SELVAGE, is a 84 F who presented to the emergency room a few days ago with upper respiratory tract infection and was also noted to be in atrial fibrillation with rapid ventricular response rate. She was admitted and was treated for her respiratory issues and then was also put on rate limiting medications for her atrial fibrillation. However she has continued to have an elevated heart rate. She underwent an echocardiographic evaluation which demonstrated an ejection fraction of 55% with no wall motion abnormalities present. She has had no dizziness or diaphoresis no near- syncope or syncope. She has been on anticoagulation as well. Cardiology was called for further evaluation and management. On the telemetry unit she is noted to have a heart rate of between 120 and 130 bpm. [facility] Medical History (Updated 10/13/24 @ 09:[address] Rasheed Ledezma MD) Hypertension Rheumatoid arthritis Chronic kidney disease, stage 3 Home Medications ???Medication ???Instructions ???Recorded ???Last Taken ???Type allopurinol 100 mg tablet 100 mg PO DAILYCM gout 11/12/14 10/11/24 History furosemide 40 mg tablet 40 mg PO DAILY 11/12/14 Unknown History clonidine HCl 0.2 mg tablet 0.1 mg PO BID bp 06/29/15 07/06/15 07:45 History losartan 100 mg tablet 100 mg PO DAILY 06/29/15 Unknown History amlodipine 2.5 mg tablet 2.5 mg PO DAILY bp 10/12/24 10/11/24 History atenolol 25 mg tablet 25 mg PO BID hr 10/12/24 10/11/24 History cholecalciferol (vitamin D3) 1,250 1,250 mcg PO QWEEK supplement 10/12/24 10/10/24 History mcg (50,000 unit) capsule duloxetine 30 mg capsule,delayed 30 mg PO QHS mood 10/12/24 Unknown History release folic acid 1 mg tablet 2 mg PO DAILY supplement 10/12/24 Unknown History levothyroxine 25 mcg tablet 25 mcg PO DAILY disorder of 10/12/24 Unknown History thyroid gland potassium chloride 10 mEq 10 meq PO BID 10/12/24 Unknown History tablet,extended release(part/cryst) (Klor-Con M) rosuvastatin 10 mg tablet 10 mg PO DAILY cholesterol 10/12/24 Unknown History apremilast 30 mg tablet (Otezla) 30 mg PO BID psoriasis 10/13/24 Unknown History famotidine 20 mg tablet (Acid 20 mg PO DAILY gerd 10/13/24 Unknown History Controller) mecobalamin (vitamin B12) 1,000 1,000 mcg PO DAILY supplement 10/13/24 Unknown History mcg chewable tablet (B12 Active) vit C 250 mg-vit E 90 mg-zinc 40 1 tab PO BID supplement 10/13/24 Unknown History mg-copper 1 lo-grranu-oiviqh capsule (PreserVision AREDS-2) Allergy/AdvReac Type Severity Reaction Status Date / Time amlodipine besylate (From Allergy Other Verified 10/12/24 12:50 Norvasc) bumetanide (From Bumex) Allergy Other Verified 10/12/24 12:50 cephalexin monohydrate (From Allergy Hives Verified 10/12/24 12:50 Keflex) colchicine Allergy Hives Verified 10/12/24 12:50 hydrochlorothiazide Allergy Hives Verified 10/12/24 12:50 hydrocortisone acetate (From Allergy Other Verified 10/12/24 12:50 Hydrocortone Acetate) minoxidil Allergy Other Verified 10/12/24 12:50 naproxen Allergy Rash Verified 10/12/24 12:50 ofloxacin (From Floxin) Allergy Shortness Verified 10/12/24 12:50 of breath Penicillins (PCN) Allergy Rash Verified 10/12/24 12:50 Sulfa (Sulfonamide Allergy Rash Verified 10/12/24 12:50 Antibiotics) Family History Son Diabetes CAD (coronary artery disease) Other H/O: hysterectomy Surgical History Hx of cholecystectomy Social History Smoking Status: Never smoker ROS Constitutional Constitut (more content not included)... Normal [facility] Eosinophil percentageOrdered By: Rasheed Ledezma on 10-16-2024 Eosinophils/100 WBC (Bld) 1.2 % 0-5 [facility] Erythrocyte distribution wid th ratioOrdered By: Rasheed Ledezma on 10-16-2024 Erythrocyte distribution width (RBC) [Ratio] 15.4 % High 11.6-14.6 [facility] Erythrocyte distribution wid th standard deviationOrdered By: Rasheed Ledezma on 10-16-2024 Erythrocyte distribution width (RBC) [Entitic vol] 49.1 fL High 35.1-43.9 [facility] Estimated glomerular filtrat ion rate (GFR) AmericanOrdered By: Rasheed Ledezma on 10-16-2024 Estimated GFR (MDRD) Amer 62 mL/min >60 [facility] Comment on above: GFR Calc Estimation of creatinine cassie aranceOrdered By: Rasheed Ledezma on 10-16-2024 Estimated Creatinine Clearance Calc 35.64 ml/min [facility] Glomerular filtration rate ( GFR) estimationOrdered By: Rasheed Ledezma on 10-16-2024 Estimated GFR (MDRD) Non-Af Amer 51 mL/min Low >60 [facility] Comment on above: Non- GFR Calc Glucose measurementOrdered B y: Rasheed Ledezma on 10-16-2024 Glucose [Mass/Vol] 140 mg/dL High 74-106 [facility] Comment on above: Fasting Glucose resu lt greater than or equal to 126 mg/dL suggests DIABETES MELLITUS per A.D.A. criteria. Hematocrit Auto (Bld) [Volum e fraction]Ordered By: Rasheed Ledezma on 10-16-2024 Hematocrit (Bld) [Volume fraction] 42.4 % 37-47 [facility] Hemoglobin measurementOrdere d By: Rasheed Ledezma on 10-16-2024 Hemoglobin (Bld) [Mass/Vol] 13.8 g/dL 12.0-15.0 [facility] Immature granulocytes/100 WB C Auto (Bld)Ordered By: Rasheed Ledezma on 10-16-2024 Immature granulocytes/100 WBC (Bld) 0.800 % 0.0-0.9 [facility] Comment on above: IG% - Immature Granu locytes (promyelocytes, myelocytes and metamyelocytes) > 1% indicates that a LEFT SHIFT is Present. Lymphocytes Auto (Unsp spec) [#/Vol]Ordered By: Rasheed Ledezma on 10-16-2024 Lymphocytes (Bld) [#/Vol] 1.99 10*3/uL 0.83-4.51 [facility] Lymphocytes/100 WBC Auto (Un sp spec)Ordered By: Rasheed Ledezma on 10-16-2024 Lymphocytes/100 WBC (Bld) 17.7 % Low 19-41 [facility] MCV (mean corpuscular volume ) determinationOrdered By: Rasheed Ledezma on 10-16-2024 MCV (RBC) [Entitic vol] 87.4 fL 81-99 [facility] Mean corpuscular hemoglobin (MCH) determinationOrdered By: Rasheed Ledezma on 10-16-2024 MCH (RBC) [Entitic mass] 28.5 pg 27.0-32.0 [facility] Mean corpuscular hemoglobin concentration (MCHC) determinationOrdered By: Rasheed Ledezma on 10-16-2024 MCHC (RBC) [Mass/Vol] 32.5 g/dL 32-36 [facility] Mean platelet volume determi nationOrdered By: Rasheed Ledezma on 10-16-2024 Platelet mean volume (Bld) [Entitic vol] 11.2 fL 6.2-12.0 [facility] Monocyte percentageOrdered B y: Rasheed Ledezma on 10-16-2024 Monocytes/100 WBC (Bld) 5.0 % 0-10 [facility] Neutrophil percentageOrdered By: Rasheed Ledezma on 10-16-2024 Neutrophils/100 WBC (Bld) 74.8 % High 47-70 [facility] Nucleated red blood cell per centageOrdered By: Rasheed Ledezma on 10-16-2024 Nucleated RBC/100 WBC (Bld) [Ratio] 0 % 0-5 [facility] Platelet countOrdered By: Erik Ledezma on 10-16-2024 Platelets (Bld) [#/Vol] 187 10*3/uL 150-450 [facility] Potassium measurementOrdered By: Rasheed Ledezma on 10-16-2024 Potassium [Moles/Vol] 4.1 mmol/L 3.5-5.1 [facility] RBC Auto (Bld) [#/Vol]Ordere d By: Rasheed Ledezma on 10-16-2024 RBC (Bld) [#/Vol] 4.85 10*6/uL 4.2-5.4 [facility] Serum anion gap measurementO rdered By: Rasheed Ledezma on 10-16-2024 Anion gap [Moles/Vol] 7 mmol/L 5-15 [facility] Serum or plasma calcium shell urement (mass/volume)Ordered By: Rasheed Ledezma on 10-16-2024 Calcium [Mass/Vol] 9.3 mg/dL 8.5-10.1 [facility] Serum or plasma creatinine m easurement (mass/volume)Ordered By: Rasheed Ledezma on 10-16-2024 Creatinine [Mass/Vol] 1.08 mg/dL High 0.55-1.02 [facility] Comment on above: The validity of the calculated GFR & GFRAA in patients over 70 years has not been determined. Clinical correlation is essential. Serum or plasma urea nitroge n measurement (mass/volume)Ordered By: Rasheed Ledezma on 10-16-2024 Urea nitrogen [Mass/Vol] 26 mg/dL High 7-18 [facility] Sodium levelOrdered By: William Ledezma on 10-16-2024 Sodium [Moles/Vol] 132 mmol/L Low 136-145 [facility] White blood cell (WBC) count Ordered By: Rasheed Ledezma on 10-16-2024 WBC (Bld) [#/Vol] 11.2 10*3/uL High 4.4-11.0 [facility] Basic Metabolic Profile (BMP )on 10-15-2024 BUN/CRE 20.2 RATIO High 10-20 [facility] Comment on above: Performed By: #### L 100.0100, L500.4050 #### [facility] [address] [place], [address] CA,Total 9.1 mg/dL Normal 8.5-10.1 [facility] Comment on above: Performed By: #### L 100.0100, L500.4050 #### [facility] [address] [place], [address] Chloride [Moles/Vol] 98 mmol/L Normal 98-107 [facility] Comment on above: Performed By: #### L 100.0100, L500.4050 #### [facility] [address] [place], [address] CO2 [Moles/Vol] 24.0 mmol/L Normal 21.0-32.0 [facility] Comment on above: Performed By: #### L 100.0100, L500.4050 #### [facility] [address] [place], [address] Creatinine [Mass/Vol] 1.24 mg/dL High 0.55-1.02 [facility] Comment on above: Result Comment: The validity of the calculated GFR GFRAA in patients over 70 years has not been determined. Clinical correlation is essential. Performed By: #### L 100.0100, L500.4050 #### [facility] [address] [place], [address] ECRCL 31.04 ml/min Normal [facility] Comment on above: Performed By: #### L 100.0100, L500.4050 #### [facility] [address] [place], [address] EST GFR - AA 53 mL/min Low >60 [facility] Comment on above: Result Comment: Afri can Nauruan GFR Calc Performed By: #### L 100.0100, L500.4050 #### [facility] [address] [place], [address] GAP 9 Normal 5-15 [facility] Comment on above: Performed By: #### L 100.0100, L500.4050 #### [facility] [address] [place], [address] GFR/1.73 sq M.predicted among non-blacks MDRD (S/P/Bld) [Vol rate/Area] 44 mL/min/{1.73_m2} Low >60 [facility] Comment on above: Result Comment: Non- GFR Calc Performed By: #### L 100.0100, L500.4050 #### [facility] [address] [place], [address] Glucose [Mass/Vol] 151 mg/dL High 74-106 [facility] Comment on above: Result Comment: Fast ing Glucose result greater than or equal to 126 mg/dL suggests DIABETES MELLITUS per A.D.A. criteria. Performed By: #### L 100.0100, L500.4050 #### [facility] [address] [place], [address] Potassium [Moles/Vol] 3.6 mmol/L Normal 3.5-5.1 [facility] Comment on above: Performed By: #### L 100.0100, L500.4050 #### [facility] [address] [place], [address] Sodium [Moles/Vol] 131 mmol/L Low 136-145 [facility] Comment on above: Performed By: #### L 100.0100, L500.4050 #### [facility] [address] [place], [address] Urea nitrogen [Mass/Vol] 25 mg/dL High 7-18 [facility] Comment on above: Performed By: #### L 100.0100, L500.4050 #### [facility] [address] [place], [address] CBC W/Diff, Automatedon 01-0 -2024 Absolute Lymph 1.66 X10 3/uL Normal 0.83-4.51 [facility] Comment on above: Performed By: #### L 100.0100, L500.4050 #### [facility] [address] [place], [address] Absolute Neut 9.1 X10 3/uL High 2.0-7.7 [facility] Comment on above: Performed By: #### L 100.0100, L500.4050 #### [facility] [address] [place], [address] Basophils/100 WBC (Bld) 0.3 % Normal 0-1 [facility] Comment on above: Performed By: #### L 100.0100, L500.4050 #### [facility] [address] [place], [address] Eosinophils/100 WBC (Bld) 0.8 % Normal 0-5 [facility] Comment on above: Performed By: #### L 100.0100, L500.4050 #### [facility] [address] [place], [address] Erythrocyte distribution width (RBC) [Ratio] 15.7 % High 11.6-14.6 [facility] Comment on above: Performed By: #### L 100.0100, L500.4050 #### [facility] [address] [place], [address] Hematocrit (Bld) [Volume fraction] 42.7 % Normal 37-47 [facility] Comment on above: Performed By: #### L 100.0100, L500.4050 #### [facility] [address] [place], [address] Hemoglobin (Bld) [Mass/Vol] 13.8 g/dL Normal 12.0-15.0 [facility] Comment on above: Performed By: #### L 100.0100, L500.4050 #### [facility] [address] [place], [address] IG% 0.700 Normal 0.0-0.9 [facility] Comment on above: Result Comment: IG% - Immature Granulocytes (promyelocytes, myelocytes and metamyelocytes) > 1% indicates that a LEFT SHIFT is Present. Performed By: #### L 100.0100, L500.4050 #### [facility] [address] [place], [address] Lymphocytes/100 WBC (Bld) 14.2 % Low 19-41 [facility] Comment on above: Performed By: #### L 100.0100, L500.4050 #### [facility] [address] [place], [address] MCH (RBC) [Entitic mass] 28.6 pg Normal 27.0-32.0 [facility] Comment on above: Performed By: #### L 100.0100, L500.4050 #### [facility] [address] [place], [address] MCHC (RBC) [Mass/Vol] 32.3 g/dL Normal 32-36 [facility] Comment on above: Performed By: #### L 100.0100, L500.4050 #### [facility] [address] [place], [address] MCV (RBC) [Entitic vol] 88.6 fL Normal 81-99 [facility] Comment on above: Performed By: #### L 100.0100, L500.4050 #### [facility] [address] [place], [address] Monocytes/100 WBC (Bld) 5.6 % Normal 0-10 [facility] Comment on above: Performed By: #### L 100.0100, L500.4050 #### [facility] [address] [place], [address] Neutrophils/100 WBC (Bld) 78.4 % High 47-70 [facility] Comment on above: Performed By: #### L 100.0100, L500.4050 #### [facility] [address] [place], [address] Nucleated RBC (Bld) [#/Vol] 0 10*3/uL Normal 0-5 [facility] Comment on above: Performed By: #### L 100.0100, L500.4050 #### [facility] [address] [place], [address] Platelet mean volume (Bld) [Entitic vol] 11.0 fL Normal 6.2-12.0 [facility] Comment on above: Performed By: #### L 100.0100, L500.4050 #### [facility] [address] [place], [address] Platelets (Bld) [#/Vol] 169 10*3/uL Normal 150-450 [facility] Comment on above: Performed By: #### L 100.0100, L500.4050 #### [facility] [address] [place], [address] RBC (Bld) [#/Vol] 4.82 10*6/uL Normal 4.2-5.4 [facility] Comment on above: Performed By: #### L 100.0100, L500.4050 #### [facility] [address] [place], [address] RDW SD 50.6 fl High 35.1-43.9 [facility] Comment on above: Performed By: #### L 100.0100, L500.4050 #### [facility] [address] [place], [address] WBC (Bld) [#/Vol] 11.7 10*3/uL High 4.4-11.0 [facility] Comment on above: Performed By: #### L 100.0100, L500.4050 #### [facility] [address] [place], [address] Basic Metabolic Profile (BMP )on 10-14-2024 BUN/CRE 17.9 RATIO Normal 10-20 [facility] Comment on above: Performed By: #### L 100.0100, L500.4050 #### [facility] [address] [place], [address] CA,Total 9.0 mg/dL Normal 8.5-10.1 [facility] Comment on above: Performed By: #### L 100.0100, L500.4050 #### [facility] [address] [place], [address] Chloride [Moles/Vol] 100 mmol/L Normal 98-107 [facility] Comment on above: Performed By: #### L 100.0100, L500.4050 #### [facility] [address] [place], [address] CO2 [Moles/Vol] 25.0 mmol/L Normal 21.0-32.0 [facility] Comment on above: Performed By: #### L 100.0100, L500.4050 #### [facility] [address] [place], [address] Creatinine [Mass/Vol] 1.12 mg/dL High 0.55-1.02 [facility] Comment on above: Result Comment: The validity of the calculated GFR GFRAA in patients over 70 years has not been determined. Clinical correlation is essential. Performed By: #### L 100.0100, L500.4050 #### [facility] [address] [place], [address] ECRCL 34.37 ml/min Normal [facility] Comment on above: Performed By: #### L 100.0100, L500.4050 #### [facility] [address] [place], [address] EST GFR - AA 59 mL/min Low >60 [facility] Comment on above: Result Comment: Afri can Nauruan GFR Calc Performed By: #### L 100.0100, L500.4050 #### [facility] [address] [place], [address] GAP 8 Normal 5-15 [facility] Comment on above: Performed By: #### L 100.0100, L500.4050 #### [facility] [address] [place], [address] GFR/1.73 sq M.predicted among non-blacks MDRD (S/P/Bld) [Vol rate/Area] 49 mL/min/{1.73_m2} Low >60 [facility] Comment on above: Result Comment: Non- GFR Calc Performed By: #### L 100.0100, L500.4050 #### [facility] [address] [place], [address] Glucose [Mass/Vol] 162 mg/dL High 74-106 [facility] Comment on above: Result Comment: Fast ing Glucose result greater than or equal to 126 mg/dL suggests DIABETES MELLITUS per A.D.A. criteria. Performed By: #### L 100.0100, L500.4050 #### [facility] [address] [place], [address] Potassium [Moles/Vol] 3.4 mmol/L Low 3.5-5.1 [facility] Comment on above: Performed By: #### L 100.0100, L500.4050 #### [facility] [address] [place], [address] Sodium [Moles/Vol] 133 mmol/L Low 136-145 [facility] Comment on above: Performed By: #### L 100.0100, L500.4050 #### [facility] [address] [place], [address] Urea nitrogen [Mass/Vol] 20 mg/dL High 7-18 [facility] Comment on above: Performed By: #### L 100.0100, L500.4050 #### [facility] [address] [place], [address] CBC W/Diff, Automatedon 01-0 3-2024 Absolute Lymph 1.54 X10 3/uL Normal 0.83-4.51 [facility] Comment on above: Performed By: #### L 100.0100, L500.4050 #### [facility] [address] [place], [address] Absolute Neut 7.4 X10 3/uL Normal 2.0-7.7 [facility] Comment on above: Performed By: #### L 100.0100, L500.4050 #### [facility] [address] [place], [address] Basophils/100 WBC (Bld) 0.2 % Normal 0-1 [facility] Comment on above: Performed By: #### L 100.0100, L500.4050 #### [facility] [address] [place], [address] Eosinophils/100 WBC (Bld) 0.7 % Normal 0-5 [facility] Comment on above: Performed By: #### L 100.0100, L500.4050 #### [facility] [address] [place], [address] Erythrocyte distribution width (RBC) [Ratio] 15.7 % High 11.6-14.6 [facility] Comment on above: Performed By: #### L 100.0100, L500.4050 #### [facility] [address] [place], [address] Hematocrit (Bld) [Volume fraction] 41.5 % Normal 37-47 [facility] Comment on above: Performed By: #### L 100.0100, L500.4050 #### [facility] [address] [place], [address] Hemoglobin (Bld) [Mass/Vol] 13.3 g/dL Normal 12.0-15.0 [facility] Comment on above: Performed By: #### L 100.0100, L500.4050 #### [facility] [address] [place], [address] IG% 0.500 Normal 0.0-0.9 [facility] Comment on above: Result Comment: IG% - Immature Granulocytes (promyelocytes, myelocytes and metamyelocytes) > 1% indicates that a LEFT SHIFT is Present. Performed By: #### L 100.0100, L500.4050 #### [facility] [address] [place], [address] Lymphocytes/100 WBC (Bld) 15.8 % Low 19-41 [facility] Comment on above: Performed By: #### L 100.0100, L500.4050 #### [facility] [address] [place], [address] MCH (RBC) [Entitic mass] 28.2 pg Normal 27.0-32.0 [facility] Comment on above: Performed By: #### L 100.0100, L500.4050 #### [facility] [address] [place], [address] MCHC (RBC) [Mass/Vol] 32.0 g/dL Normal 32-36 [facility] Comment on above: Performed By: #### L 100.0100, L500.4050 #### [facility] [address] [place], [address] MCV (RBC) [Entitic vol] 88.1 fL Normal 81-99 [facility] Comment on above: Performed By: #### L 100.0100, L500.4050 #### [facility] [address] [place], [address] Monocytes/100 WBC (Bld) 7.2 % Normal 0-10 [facility] Comment on above: Performed By: #### L 100.0100, L500.4050 #### [facility] [address] [place], [address] Neutrophils/100 WBC (Bld) 75.6 % High 47-70 [facility] Comment on above: Performed By: #### L 100.0100, L500.4050 #### [facility] [address] [place], [address] Nucleated RBC (Bld) [#/Vol] 0 10*3/uL Normal 0-5 [facility] Comment on above: Performed By: #### L 100.0100, L500.4050 #### [facility] [address] [place], [address] Platelet mean volume (Bld) [Entitic vol] 10.6 fL Normal 6.2-12.0 [facility] Comment on above: Performed By: #### L 100.0100, L500.4050 #### [facility] [address] [place], [address] Platelets (Bld) [#/Vol] 144 10*3/uL Low 150-450 [facility] Comment on above: Performed By: #### L 100.0100, L500.4050 #### [facility] [address] [place], [address] RBC (Bld) [#/Vol] 4.71 10*6/uL Normal 4.2-5.4 [facility] Comment on above: Performed By: #### L 100.0100, L500.4050 #### [facility] [address] [place], [address] RDW SD 51.1 fl High 35.1-43.9 [facility] Comment on above: Performed By: #### L 100.0100, L500.4050 #### [facility] [address] [place], [address] WBC (Bld) [#/Vol] 9.7 10*3/uL Normal 4.4-11.0 [facility] Comment on above: Performed By: #### L 100.0100, L500.4050 #### [facility] [address] [place], [address] Magnesiumon 10-14-2024 Magnesium [Mass/Vol] 1.8 mg/dL Normal 1.6-2.6 [facility] Comment on above: Performed By: #### L 100.0100, L500.4050 #### [facility] [address] [place], [address] Magnesium measurementOrdered By: Rasheed Ledezma on 10-14-2024 Magnesium [Mass/Vol] 1.8 mg/dL 1.6-2.6 [facility] Phosphoruson 10-14-2024 Phosphate [Mass/Vol] 3.0 mg/dL Normal 2.5-4.9 [facility] Comment on above: Performed By: #### L 100.0100, L500.4050 #### [facility] [address] [place], [address] Phosphorus measurementOrdere d By: Rasheed Ledezma on 10-14-2024 Phosphorus Level 3.0 mg/dL 2.5-4.9 [facility] Basic Metabolic Profile (BMP )on 10-13-2024 BUN/CRE 21.0 RATIO High 10-20 [facility] Comment on above: Performed By: #### L 501.4020 #### [facility] [address] [place], [address] CA,Total 9.2 mg/dL Normal 8.5-10.1 [facility] Comment on above: Performed By: #### L 501.4020 #### [facility] [address] [place], [address] Chloride [Moles/Vol] 101 mmol/L Normal 98-107 [facility] Comment on above: Performed By: #### L 501.4020 #### [facility] [address] [place], [address] CO2 [Moles/Vol] 28.0 mmol/L Normal 21.0-32.0 [facility] Comment on above: Performed By: #### L 501.4020 #### [facility] [address] [place], [address] Creatinine [Mass/Vol] 1.19 mg/dL High 0.55-1.02 [facility] Comment on above: Result Comment: The validity of the calculated GFR GFRAA in patients over 70 years has not been determined. Clinical correlation is essential. Performed By: #### L 501.4020 #### [facility] [address] [place], [address] ECRCL 32.35 ml/min Normal [facility] Comment on above: Performed By: #### L 501.4020 #### [facility] [address] [place], [address] EST GFR - AA 55 mL/min Low >60 [facility] Comment on above: Result Comment: Afri can [place]aur[place] GFR Calc Performed By: #### L 501.4020 #### [facility] [address] [place], [address] GAP 9 Normal 5-15 [facility] Comment on above: Performed By: #### L 501.4020 #### [facility] [address] [place], [address] GFR/1.73 sq M.predicted among non-blacks MDRD (S/P/Bld) [Vol rate/Area] 46 mL/min/{1.73_m2} Low >60 [facility] Comment on above: Result Comment: Non- GFR Calc Performed By: #### L 501.4020 #### [facility] [address] [place], [address] Glucose [Mass/Vol] 130 mg/dL High 74-106 [facility] Comment on above: Result Comment: Fast ing Glucose result greater than or equal to 126 mg/dL suggests DIABETES MELLITUS per A.D.A. criteria. Performed By: #### L 501.4020 #### [facility] [address] [place], [address] Potassium [Moles/Vol] 3.7 mmol/L Normal 3.5-5.1 [facility] Comment on above: Performed By: #### L 501.4020 #### [facility] [address] [facility] [place], [address] Sodium [Moles/Vol] 138 mmol/L Normal 136-145 [facility] Comment on above: Performed By: #### L 501.4020 #### [facility] [address] [facility] [place], [address] Urea nitrogen [Mass/Vol] 25 mg/dL High 7-18 [facility] Comment on above: Performed By: #### L 501.4020 #### [facility] [address] [facility] [place], [address] Blood cultureOrdered By: Dominic Ledezma on 10-13-2024 Bacteria identified Cx Nom (Bld) No growth in 5 days. [facility] M100.019on 10-13-2024 M100.019 Negative Normal [facility] Comment on above: Performed By: #### L 501.4020 #### [facility] [address] [place], [address] [id number] By: Rasheed Ledezma on 10-13-2024 SARS-CoV-2 (COVID-19) RNA MEL+probe Ql (Unsp spec) [facility] 12 Lead EKGon 10-12-2024 12 Lead EKG [facility] [address] [place] [address] 12 Lead EKG 10/12/24 1428 MR#: [id number] Acct: [id number] Name: MARY CRANE Rep #: [id number] : 1940 84 From: Mario Hagen MD Attending Dr: Dr. Rasheed Ledezma MD Status: ADM IN Ordering Dr: Yuri Meier DO Date: 10/12/24 Location: [facility] Sex: F C Admitted: 10/12/24 Test Reason : TACHY Blood Pressure : */* mmHG Vent. Rate : 156 BPM Atrial Rate : * BPM P-R Int : * ms QRS Dur : 68 ms QT Int : 246 ms P-R-T Axes : * 21 12 degrees QTcB Int : 396 ms Critical Test Result: High HR Atrial fibrillation with rapid ventricular response with premature ventricular or aberrantly conducted complexes ST T wave abnormality, consider anterolateral ischemia Abnormal ECG Confirmed by MARIO HAGEN MD ([id number]), newspaper editor ZAID CALLAHAN ([id number]) on 10/14/2024 6:25:25 AM Referred By: Yuri Meier Confirmed By: MARIO HAGEN MD 10/14/24 06 Date Mario Hagen MD CC: Dr. Yuri Meier DO; Dr. Rasheed Ledezma MD; Dr. Atul Harvey DO Signed Normal [facility] Basic Metabolic Profile (BMP )on 10-12-2024 BUN/CRE 16.7 RATIO Normal 10-20 [facility] Comment on above: Order Comment: 'TROP ' Serial specimen #1, #2 or #3: 1 Performed By: #### L 100.0100, L500.4050 #### [facility] [address] [place], [address] CA,Total 8.9 mg/dL Normal 8.5-10.1 [facility] Comment on above: Order Comment: 'TROP ' Serial specimen #1, #2 or #3: 1 Performed By: #### L 100.0100, L500.4050 #### [facility] [address] [place], [address] Chloride [Moles/Vol] 102 mmol/L Normal 98-107 [facility] Comment on above: Order Comment: 'TROP ' Serial specimen #1, #2 or #3: 1 Performed By: #### L 100.0100, L500.4050 #### [facility] [address] [place], [address] CO2 [Moles/Vol] 29.0 mmol/L Normal 21.0-32.0 [facility] Comment on above: Order Comment: 'TROP ' Serial specimen #1, #2 or #3: 1 Performed By: #### L 100.0100, L500.4050 #### [facility] [address] [place], [address] Creatinine [Mass/Vol] 1.50 mg/dL High 0.55-1.02 [facility] Comment on above: Order Comment: 'TROP ' Serial specimen #1, #2 or #3: 1 Result Comment: The validity of the calculated GFR GFRAA in patients over 70 years has not been determined. Clinical correlation is essential. Performed By: #### L 100.0100, L500.4050 #### [facility] [address] [place], [address] ECRCL 26.05 ml/min Normal [facility] Comment on above: Order Comment: 'TROP ' Serial specimen #1, #2 or #3: 1 Performed By: #### L 100.0100, L500.4050 #### [facility] [address] [place], [address] EST GFR - AA 42 mL/min Low >60 [facility] Comment on above: Order Comment: 'TROP ' Serial specimen #1, #2 or #3: 1 Result Comment: Afri can Nauruan GFR Calc Performed By: #### L 100.0100, L500.4050 #### [facility] [address] [place], [address] GAP 5 Normal 5-15 [facility] Comment on above: Order Comment: 'TROP ' Serial specimen #1, #2 or #3: 1 Performed By: #### L 100.0100, L500.4050 #### [facility] [address] [place], [address] GFR/1.73 sq M.predicted among non-blacks MDRD (S/P/Bld) [Vol rate/Area] 35 mL/min/{1.73_m2} Low >60 [facility] Comment on above: Order Comment: 'TROP ' Serial specimen #1, #2 or #3: 1 Result Comment: Non- GFR Calc Performed By: #### L 100.0100, L500.4050 #### [facility] [address] [place], [address] Glucose [Mass/Vol] 153 mg/dL High 74-106 [facility] Comment on above: Order Comment: 'TROP ' Serial specimen #1, #2 or #3: 1 Result Comment: Fast ing Glucose result greater than or equal to 126 mg/dL suggests DIABETES MELLITUS per A.D.A. criteria. Performed By: #### L 100.0100, L500.4050 #### [facility] [address] [place], [address] Potassium [Moles/Vol] 4.1 mmol/L Normal 3.5-5.1 [facility] Comment on above: Order Comment: 'TROP ' Serial specimen #1, #2 or #3: 1 Performed By: #### L 100.0100, L500.4050 #### [facility] [address] [place], [address] Sodium [Moles/Vol] 136 mmol/L Normal 136-145 [facility] Comment on above: Order Comment: 'TROP ' Serial specimen #1, #2 or #3: 1 Performed By: #### L 100.0100, L500.4050 #### [facility] [address] [place], [address] Urea nitrogen [Mass/Vol] 25 mg/dL High 7-18 [facility] Comment on above: Order Comment: 'TROP ' Serial specimen #1, #2 or #3: 1 Performed By: #### L 100.0100, L500.4050 #### [facility] [address] [place], [address] CBC W/Diff, Automatedon 01-0 -2024 Absolute Lymph 1.44 X10 3/uL Normal 0.83-4.51 [facility] Comment on above: Performed By: #### L 100.0100, L500.4050 #### [facility] [address] [place], [address] Absolute Neut 5.1 X10 3/uL Normal 2.0-7.7 [facility] Comment on above: Performed By: #### L 100.0100, L500.4050 #### [facility] [address] [place], [address] Basophils/100 WBC (Bld) 0.4 % Normal 0-1 [facility] Comment on above: Performed By: #### L 100.0100, L500.4050 #### [facility] [address] [place], [address] Eosinophils/100 WBC (Bld) 1.2 % Normal 0-5 [facility] Comment on above: Performed By: #### L 100.0100, L500.4050 #### [facility] [address] [place], [address] Erythrocyte distribution width (RBC) [Ratio] 15.8 % High 11.6-14.6 [facility] Comment on above: Performed By: #### L 100.0100, L500.4050 #### [facility] [address] [place], [address] Hematocrit (Bld) [Volume fraction] 44.7 % Normal 37-47 [facility] Comment on above: Performed By: #### L 100.0100, L500.4050 #### [facility] [address] [place], [address] Hemoglobin (Bld) [Mass/Vol] 14.1 g/dL Normal 12.0-15.0 [facility] Comment on above: Performed By: #### L 100.0100, L500.4050 #### [facility] [address] [place], [address] IG% 0.700 Normal 0.0-0.9 [facility] Comment on above: Result Comment: IG% - Immature Granulocytes (promyelocytes, myelocytes and metamyelocytes) > 1% indicates that a LEFT SHIFT is Present. Performed By: #### L 100.0100, L500.4050 #### [facility] [address] [place], [address] Lymphocytes/100 WBC (Bld) 19.6 % Normal 19-41 [facility] Comment on above: Performed By: #### L 100.0100, L500.4050 #### [facility] [address] [place], [address] MCH (RBC) [Entitic mass] 28.7 pg Normal 27.0-32.0 [facility] Comment on above: Performed By: #### L 100.0100, L500.4050 #### [facility] [address] [place], [address] MCHC (RBC) [Mass/Vol] 31.5 g/dL Low 32-36 [facility] Comment on above: Performed By: #### L 100.0100, L500.4050 #### [facility] [address] [place], [address] MCV (RBC) [Entitic vol] 91.0 fL Normal 81-99 [facility] Comment on above: Performed By: #### L 100.0100, L500.4050 #### [facility] [address] [place], [address] Monocytes/100 WBC (Bld) 8.7 % Normal 0-10 [facility] Comment on above: Performed By: #### L 100.0100, L500.4050 #### [facility] [address] [place], [address] Neutrophils/100 WBC (Bld) 69.4 % Normal 47-70 [facility] Comment on above: Performed By: #### L 100.0100, L500.4050 #### [facility] [address] [place], [address] Nucleated RBC (Bld) [#/Vol] 0 10*3/uL Normal 0-5 [facility] Comment on above: Performed By: #### L 100.0100, L500.4050 #### [facility] [address] [place], [address] Platelet mean volume (Bld) [Entitic vol] 11.3 fL Normal 6.2-12.0 [facility] Comment on above: Performed By: #### L 100.0100, L500.4050 #### [facility] [address] [place], [address] Platelets (Bld) [#/Vol] 144 10*3/uL Low 150-450 [facility] Comment on above: Performed By: #### L 100.0100, L500.4050 #### [facility] [address] [place], [address] RBC (Bld) [#/Vol] 4.91 10*6/uL Normal 4.2-5.4 [facility] Comment on above: Performed By: #### L 100.0100, L500.4050 #### [facility] [address] [place], [address] RDW SD 53.3 fl High 35.1-43.9 [facility] Comment on above: Performed By: #### L 100.0100, L500.4050 #### [facility] [address] [place], [place], [address] WBC (Bld) [#/Vol] 7.3 10*3/uL Normal 4.4-11.0 [facility] Comment on above: Performed By: #### L 100.0100, L500.4050 #### [facility] [address] [place], [address] CNOVon 10-12-2024 [facility] MARY CRANE ([id number]) 1940 F TXT Date Time Provider Department 10/12/24 1:15 PM RICHARD PINEDA [facility] During your visit today, we recorded the following information about you: Temperature Pulse Respiration Blood pressure 102 degrees 132/minute 30/minute 122/80 Weight 71.2 kg Richard Pineda APRN.[employer]GER 10/12/2024 1:08 PM Signed Subjective HPI Mary Kenneth Pamromero is a 84 year old female who presents with chest congestion, shortness of breath, wheezing, cough and sore throat for the past 2 days. She has a fever today of 103 degrees at home. She has not taken any medication today. Review of Systems Constitutional: Positive for chills, fever and malaise/fatigue. HENT: Positive for congestion and sore throat. Negative for ear pain. Respiratory: Positive for cough, sputum production, shortness of breath and wheezing. Cardiovascular: Negative for chest pain. BP 122/80 Pulse (!) 132 Temp (!) 38.9 ?C (102 ?F) Resp 30 Wt 71.2 kg (156 lb 15.5 oz) SpO2 95% BMI 27.81 kg/m? PAST MEDICAL HISTORY Diagnosis Date Advance care planning 04/01/2022 Daughter Noemy Arrhythmia Benign neoplasm of colon Chronic kidney disease 02/09/2015 Diverticulosis of colon (without mention of hemorrhage) IFG (impaired fasting glucose) 03/2022 Incisional hernia 07/06/2015 Internal hemorrhoids without mention of complication Rheumatoid arthritis(714.0) Rheumatoid arthritis(714.0) Sicca syndrome (HCC) Unspecified essential hypertension PAST SURGICAL HISTORY Procedure Laterality Date CATARACT EXTRACTION HX 10/12/2004 COLONOSCOPY FLX DX W/COLLJ SPEC WHEN PFRMD 09/30/2005 Colonoscopy COLONOSCOPY FLX DX W/COLLJ SPEC WHEN PFRMD 07/28/2016 Colonoscopy COLONOSCOPY SCREENING 09/30/2022 multiple adenomatous polyps, repeat in 3 yrs ESOPHAGOGASTRODUODENOS COPY TRANSORAL DIAGNOSTIC 12/21/2014 EGD LAPAROSCOPY SURG CHOLECYSTECTOMY 02/20/2015 NEUROPLASTY AND/TRANSPOS MEDIAN NRV CARPAL TUNNE 02/12/2006 Carpal tunnel decomp Left NEUROPLASTY AND/TRANSPOS MEDIAN NRV CARPAL TUNNE 02/27/2006 Carpal tunnel decomp Right PAST SURGICAL HISTORY OF 10/12/2001 hemorrhoidectomy , bladder, and umbilical hernia repair PAST SURGICAL HISTORY OF 08/12/2006 bladder suspension REPAIR FIRST ABDOMINAL WALL HERNIA 07/06/2015 with mesh VAGINAL HYSTERECTOMY UTERUS 250 GM/< 10/12/1983 Hysterectomy, vaginal and bladder tacked up ALLERGIES Floxin [Ofloxacin], Bumex [Bumetanide], Hydrochlorothiazide, Keflex [Cephalexin], Naproxen, Norvasc [Amlodipine Besylate], Penicillins, Proctosol [Hydrocortisone Acetate], Sulfa (Sulfonamide Antibiotics), Colchicine, and Minoxidil MEDICATIONS cholecalciferol, Vitamin D3, (VITAMIN D3) 1,250 mcg (50,000 unit) cap capsule Take 1 capsule by mouth one time a week. atenolol (TENORMIN) 25 mg tablet Take 1 tablet by mouth two times a day. cloNIDine HCl (CATAPRES) 0.2 mg tablet Take 1 tablet by mouth two times a day. losartan (COZAAR) 100 mg tablet Take 1 tablet by mouth once daily. potassium chloride ER (KLOR-CON M10) 10 mEq tablet Take 1 tablet by mouth two times a day. rosuvastatin (CRESTOR) 10 mg tablet Take 1 tablet by mouth once daily. nystatin (NYSTOP) powder Apply 1 application to affected area four times a day as needed. Yeast infection/rash in groin and under breasts ketoconazole (NIZORAL) 2 % cream Apply to affected area two times a day. (Patient taking differently: Apply to affected area two times a day. PRN) levothyroxine (LEVOXYL) 25 mcg tablet Take 1 tablet by mouth once daily. Take on empty stomach. For Thyroid folic acid 1 mg tablet Take 2 tablets by mouth once daily. triamcinolone acetonide (KENALOG) 0.1 % cream Apply 1 application to affected area two times a day as needed (rash). Apply sparingly to area for rash/itching. amLODIPine (NORVASC) 2.5 mg tablet Take 1 tablet by mouth once daily. allopurinol (ZYLOPRIM) 100 mg tablet Take 1 tablet by mouth once daily. Cholecalciferol, Vitamin D3, 50 mcg (2,000 unit) cap Take 1 capsule by mouth once daily. dicyclomine (BENTYL) 10 mg capsule Take 1 capsule by mouth before meals and at bedtime. For diarrhea or abdominal cramping furosemide (LASIX) 40 mg tablet Take 1 tablet by mouth once daily. cyanocobalamin (VITAMIN B-12) 1,000 mcg tab Take 1,000 mcg by mouth once daily. triamcinolone acetonide (KENALOG) 0.1 % cream Apply 1 application to affected area twice daily. On rash, Apply sparingly to area for rash/itching. (Patient taking differently: Apply 1 application to affected area two times a day. On rash, Apply sparingly to area for rash/itching. Uses as needed) vit A/vit C/vit E/zinc/copper (OCUVITE PRESERVISION ORAL) Take by mouth twice daily. apremilast (OTEZLA) 30 mg tablet Take 30 mg by mouth twice daily. hydrocortisone probutate 0.1 % crea Apply to affected area once da (more content not included)... Normal [facility] CTA Chest W/WO Contraston CTA Chest W/WO Contrast [facility] Imaging Services [address] [place] [address] CTA Chest W/WO Contrast MR#: [id number] Acct: [id number] Name: MARY CRANE Rep #: [id number] : 1940 F 84 From: Con Rutherford DO PCP: Dr. Atul Harvey DO Status: REG ER Study: CTA Chest W/WO Contrast Date of Exam: 10/12/24 Exam# [id number] Ordering Dr: Yuri Meier DO [id number] STUDY: CTA CHEST REASON FOR EXAM: Female, 84 years old. pulmonary embolism RADIATION DOSAGE (If Supplied By Facility): CTDIvol = ( 11.55 ) mGy, DLP = ( 345.95 ) mGycm TECHNIQUE: The examination was performed with the intravenous administration of IV 100mL Isovue-370. Post-processing of the angiographic images was performed, with multiplanar reformation and 3D reconstruction. The protocol utilizes one or more of the following dose reduction techniques: automated exposure control, adjustment of mA and/or kV according to patient size,and/or use of iterative reconstruction technique. COMPARISON: FINDINGS: Normal enhancement of the main pulmonary artery and right and left pulmonary arteries. Normal enhancement of the bilateral peripheral pulmonary arteries. There is no demonstrated pulmonary embolism. Normal thoracic aorta and visualized great vessels. There is no demonstrated aortic dissection. Normal heart and pericardium. Small nodes in the mediastinum. Normal hilar regions. Normal visualized trachea and bronchi. The lungs are well expanded. Normal pulmonary parenchyma. Normal pleura. Normal chest wall structures. Normal osseous structures. Normal visualized upper abdomen. CT/CTA Chest W/WO Contrast IMPRESSION: No demonstrated pulmonary embolism or arterial dissection. Electronically Signed: Con Rutherford DO at 16:15 EST Reading Location ID and State: [facility] / [place] Tel [phone], Service support , CC: Dr. Yuri Meier DO; Dr. Atul Harvey DO Public Health Analyst: Signed Normal [facility] Chest 1 View (Portable)on Chest 1 View (Portable) [facility] Imaging Services [address] [place] [address] Chest 1 View (Portable) MR#: [id number] Acct: [id number] Name: MARY CRANE Rep #: [id number] : 1940 F 84 From: Dimitri soares MD PCP: Dr. Atul Harvey DO Status: REG ER Study: Chest 1 View (Portable) Date of Exam: 10/12/24 Exam# [id number] Ordering Dr: Yuri Meier DO [id number] INDICATION: cough EXAMINATION/TECHNIQUE: X-RAY - XR Chest 1 View COMPARISON: 07/08/2017. FINDINGS: The lungs are clear. Tortuous and calcified thoracic aorta. The heart is mildly enlarged. Prominence of the right hilum. No pleural effusion or pneumothorax. Degenerative changes of the thoracic spine. RAD/Chest 1 View (Portable) IMPRESSION: No acute radiographic abnormalities. Prominence of the right hilum could be secondary to lymphadenopathy versus pulmonary hypertension. Electronically Signed: Dimitri White MD at 14:34 EST , CC: Dr. Yuri Meier DO; Dr. Atul Harvey DO Public Health Analyst: Signed Normal [facility] Echo Complete W/ Contraston 10-12-2024 Echo Complete W/ Contrast [facility] [address] [place] [address] Echo Complete W/ Contrast 10/13/24 0914 MR#: [id number] Acct: [id number] Name: MARY CRANE Rep #: [id number] : 1940 84 From: Mario Hagen MD Attending Dr: Dr. Rasheed Ledezma MD Status: ADM IN Ordering Dr: [place] Tubbs DO Date: 10/12/24 Location: [facility] Sex: F C Admitted: 10/12/24 Version 2 Reason For Study: Afib w/RVR Procedure This was a 2D Doppler, Color Flow transthoracic echocardiogram. The study was technically difficult. Contrast injection was performed. Exam performed portable in patient room. Left Ventricle Normal LV size. Left ventricular systolic function is normal. The left ventricular ejection fraction is 55 %. No regional wall motion abnormalities noted. Right Ventricle Normal RV size. Normal systolic function. Atria Normal left atrium. Normal right atrium. Mitral Valve Normal mitral valve. Tricuspid Valve Normal tricuspid valve. Mild tricuspid valve insufficiency. Pulmonary artery systolic pressure is 40 mmHg. Aortic Valve Trisinus/trileaflet aortic valve. Pulmonic Valve The pulmonic valve is not well visualized. Great Vessels Normal aortic root. The pulmonary artery is normal size. Inferior vena cava collapse with respiration. Pericardium/Pleural No pericardial effusion. Medication Diluted definity 1ml given slow IV push to enhance endocardial definition. MMode/2D Measurements Calculations LVIDd: 4.1 cm IVSd: 0.95 cm LVOT diam: 2.0 cm LVIDs: 3.0 cm LVPWd: 0.77 cm RVDd: 3.4 cm FS: 27.2 % LVOT area: 3.1 cm2 Ao root diam: 3.9 cm LAV(MOD-bp): 64.2 ml LA A4 area: 20.8 cm2 LAV(MOD-bp) Indexed: 37.2 ml/m2 LAV(MOD-sp2): 67.7 ml LAV(MOD-sp4): 57.1 ml LA dimension(2D): 4.3 cm TAPSE: 1.4 cm RA A4 area: 16.5 cm2 Doppler Measurements Calculations MV E max carmela: 110.5 cm/sec MV V2 max: 121.7 cm/sec Ao V2 max: 139.3 cm/sec MV max P.9 mmHg Ao max P.8 mmHg MV V2 mean: 56.4 cm/sec Ao V2 mean: 97.8 cm/sec MV mean P.8 mmHg Ao mean P.4 mmHg MV V2 VTI: 22.3 cm Ao V2 VTI: 24.0 cm KENNETH(V,D): 1.8 cm2 LV V1 max: 79.9 cm/sec TR max carmela: 308.0 cm/sec LV V1 max P.6 mmHg TR max P.9 mmHg ECHO/Echo Complete W/ Contrast Interpretation Summary Normal LV size. Left ventricular systolic function is normal. The left ventricular ejection fraction is 55 %. Pulmonary artery systolic pressure is 40 mmHg. Contrast injection was performed. Ordering Physician: [place] Tubbs Referring Physician: Yuri Meier Performed By: Reuben Mathur RCS 10/13/24 1219 Date Mario Hagen MD CC: Dr. Yuri Meier DO; Dr. Rasheed Ledezma MD; Dr. [place] Tubbs DO; Dr. Atul Harvey DO Date Dictated: 10/13/24913 Date Transcribed: 10/13/24 1218 Public Health Analyst: Signed Normal [facility] Emergency Department Summary on 10-12-2024 Emergency Department Summary [facility] Medical Records Department [address] [place] [address] Emergency Department Summary 10/12/24 MR#: [id number] Acct: [id number] Name: MARY CRANE Rep #: [id number] : 1940 84 From: Yuri Meier DO PCP: Dr. Atul Harvey DO Status:ADM IN Location: [address] History of Present Illness Chief Complaint: Cough Informant: patient and family Narrative Narrative: 84-year-old female presenting to the emergency room with dyspnea and cough. Patient states she has developed a cough for the past 4 days with some sputum. Her daughter states she had a temperature of 102 this morning. They went to urgent care and was sent here out of concerns for pneumonia. History of rheumatoid arthritis chronic kidney disease hypertension. Patient is on allopurinol hydroxychloroquine. Patient has a lot of somatic complaints but when I ask her if they are any different over the past 4 days since she has been ill she states no. These include headache vomiting diarrhea fatigue myalgias. She denies any known lung conditions. She does not wear home oxygen. [facility] Medical History (Updated 10/12/24 @ 15:[address] Yuri Meier DO) Hypertension Rheumatoid arthritis Chronic kidney disease, stage 3 Home Medications ???Medication ???Instructions ???Recorded ???Last Taken ???Type allopurinol 100 mg tablet 100 mg PO DAILYCM 11/12/14 Unknown History atenolol 50 mg tablet 50 mg PO BID 11/12/14 07/06/15 07:45 History furosemide 40 mg tablet 40 mg PO DAILY 11/12/14 Unknown History hydroxychloroquine 200 mg tablet 200 mg PO BIDCM 11/12/14 Unknown History potassium chloride 20 mEq 10 meq PO BID 11/12/14 Unknown History tablet,extended release(part/cryst) (Klor-Con M) Ranitidine [Zantac] 300 mg PO BID 06/29/15 07/06/15 07:45 History cholecalciferol (vitamin D3) 25 1,000 unit PO DAILY 06/29/15 Unknown History mcg (1,000 unit) tablet (Vitamin D3) clonidine HCl 0.2 mg tablet 0.2 mg PO BID 06/29/15 07/06/15 07:45 History dicyclomine 10 mg capsule 10 mg PO ACHS 06/29/15 Unknown History hydrocodone-acetaminop hen 5-325mg 1 tab PO Q4H PRN PRN Pain 06/29/15 Unknown History 5mg-325mg losartan 100 mg tablet 100 mg PO DAILY 06/29/15 Unknown History ondansetron HCl 8 mg tablet 8 mg PO Q8H PRN PRN Nausea 06/29/15 Unknown History polyethylene glycol 3350 17 gram 17 g PO DAILY 06/29/15 Unknown History oral powder packet amlodipine 2.5 mg tablet 2.5 mg PO DAILY 10/12/24 Unknown History potassium chloride 10 mEq 10 meq PO BID 10/12/24 Unknown History tablet,extended release(part/cryst) (Klor-Con M) Allergy/AdvReac Type Severity Reaction Status Date / Time amlodipine besylate (From Allergy Other Verified 10/12/24 12:50 Norvasc) bumetanide (From Bumex) Allergy Other Verified 10/12/24 12:50 cephalexin monohydrate (From Allergy Hives Verified 10/12/24 12:50 Keflex) colchicine Allergy Hives Verified 10/12/24 12:50 hydrochlorothiazide Allergy Hives Verified 10/12/24 12:50 hydrocortisone acetate (From Allergy Other Verified 10/12/24 12:50 Hydrocortone Acetate) minoxidil Allergy Other Verified 10/12/24 12:50 naproxen Allergy Rash Verified 10/12/24 12:50 ofloxacin (From Floxin) Allergy Shortness Verified 10/12/24 12:50 of breath Penicillins (PCN) Allergy Rash Verified 10/12/24 12:50 Sulfa (Sulfonamide Allergy Rash Verified 10/12/24 12:50 Antibiotics) Social History Smoking Status: Never smoker ROS ROS ED Constitutional Constitutional ED: Reports fever(s); Denies chills or weight loss Eyes Eyes: Denies change in vision or diplopia ENT ENT ED: Reports rhinorrhea; Denies ear pain or sore throat Cardiovascular Cardiovascular: Denies chest pain, orthopnea, palpitations or racing heartbeat Respiratory/Chest Respiratory/Chest: Reports cough, dyspnea, dyspnea on exertion and sputum; Denies orthopnea Gastrointestinal Gastrointestinal: Reports diarrhea; Denies abdominal pain, nausea or vomiting Genitourinary Genitourinary ED: Denies dysuria, hematuria or urinary frequency Musculoskeletal Musculoskeletal: Denies arthralgias or myalgias Integumentary Denies abscess or rash Neurologic Neurologic: Denies headache(s) or weakness Psychiatric Psychiatric: Denies anxiety, depression, suicidal ideation or suicidal thoughts Endocrine Endocrinology: Denies polydipsia, polyphagia or polyuria Allergic/Immunologic Allergic/Immunologic ED: Denies mouth swelling, tongue swelling or urticaria EXAM Physical Exam Const Vital Signs: 10/12/24 12:49 10/12/24 12:50 10/12/24 13:13 Temperature 97.8 F 97.8 F Temperature Source Temporal Temporal Pulse Rate 102 H 108 H Respiratory Rate 20 H 17 Respiratory Effort Respirat (more content not included)... Normal [facility] H AND P Exam - Hospitaliston 10-12-2024 H&P Exam - Hospitalist [facility] Medical Records Department [address] [place] [address] H P Exam - Hospitalist 10/12/24 1644 MR#: [id number] Acct: [id number] Name: MARY CRANE Rep #: [id number] : 1940 84 From: [place] Tubbs DO PCP: Dr. Atul Harvey DO Status:ADM IN Location: [facility] [id number] HPI - General General Date of Admission: 10/12/24 Date of Service: 10/12/24 Chief Complaint: palpitations. HPI Narrative MARY CRANE, is a 84 F who presents presents with a cough. Patient has had a cough for the past 4 days as well as some sputum production. Went to urgent care and was sent to the emergency room for evaluation. Patient was noted to be in atrial fibrillation with RVR and did receive a dose of IV metoprolol but still remained in A-fib with RVR. She was positive for RSV and did receive some bronchodilators. CTA of the chest was negative for any infiltrate nor pulmonary embolism. But given her ongoing A-fib, the hospitalist service was contacted for admission. [facility] Medical History Hypertension Rheumatoid arthritis Chronic kidney disease, stage 3 Home Medications ???Medication ???Instructions ???Recorded ???Last Taken ???Type allopurinol 100 mg tablet 100 mg PO DAILYCM 11/12/14 Unknown History atenolol 50 mg tablet 50 mg PO BID 11/12/14 07/06/15 07:45 History furosemide 40 mg tablet 40 mg PO DAILY 11/12/14 Unknown History hydroxychloroquine 200 mg tablet 200 mg PO BIDCM 11/12/14 Unknown History potassium chloride 20 mEq 10 meq PO BID 11/12/14 Unknown History tablet,extended release(part/cryst) (Klor-Con M) Ranitidine [Zantac] 300 mg PO BID 06/29/15 07/06/15 07:45 History cholecalciferol (vitamin D3) 25 1,000 unit PO DAILY 06/29/15 Unknown History mcg (1,000 unit) tablet (Vitamin D3) clonidine HCl 0.2 mg tablet 0.2 mg PO BID 06/29/15 07/06/15 07:45 History dicyclomine 10 mg capsule 10 mg PO ACHS 06/29/15 Unknown History hydrocodone-acetaminop hen 5-325mg 1 tab PO Q4H PRN PRN Pain 06/29/15 Unknown History 5mg-325mg losartan 100 mg tablet 100 mg PO DAILY 06/29/15 Unknown History ondansetron HCl 8 mg tablet 8 mg PO Q8H PRN PRN Nausea 06/29/15 Unknown History polyethylene glycol 3350 17 gram 17 g PO DAILY 06/29/15 Unknown History oral powder packet amlodipine 2.5 mg tablet 2.5 mg PO DAILY 10/12/24 Unknown History potassium chloride 10 mEq 10 meq PO BID 10/12/24 Unknown History tablet,extended release(part/cryst) (Klor-Con M) Allergy/AdvReac Type Severity Reaction Status Date / Time amlodipine besylate (From Allergy Other Verified 10/12/24 12:50 Norvasc) bumetanide (From Bumex) Allergy Other Verified 10/12/24 12:50 cephalexin monohydrate (From Allergy Hives Verified 10/12/24 12:50 Keflex) colchicine Allergy Hives Verified 10/12/24 12:50 hydrochlorothiazide Allergy Hives Verified 10/12/24 12:50 hydrocortisone acetate (From Allergy Other Verified 10/12/24 12:50 Hydrocortone Acetate) minoxidil Allergy Other Verified 10/12/24 12:50 naproxen Allergy Rash Verified 10/12/24 12:50 ofloxacin (From Floxin) Allergy Shortness Verified 10/12/24 12:50 of breath Penicillins (PCN) Allergy Rash Verified 10/12/24 12:50 Sulfa (Sulfonamide Allergy Rash Verified 10/12/24 12:50 Antibiotics) Family History (Updated 10/12/24 @ 16:[address] Doug Tubbs DO) Son CAD (coronary artery disease) Diabetes Social History Smoking Status: Never smoker ROS ROS Narrative This, chest pain, palpitations, shortness of breath. No suicidal ideation. All review of systems were negative except as mentioned above in the history of present illness and the other review of systems. Vital Signs Vital Signs Vital Signs: 10/12/24 12:49 10/12/24 12:50 10/12/24 13:13 Temperature 36.6 C 36.6 C Temperature Source Temporal Temporal Pulse Rate 102 H 108 H Respiratory Rate 20 H 17 Respiratory Effort Respiratory Depth Respiratory Pattern Blood Pressure 136/76 H 136/76 H Blood Pressure Mean 96 96 Pulse Ox 96 99 Oxygen Delivery Method Room Air Room Air Room Air 10/12/24 13:13 10/12/24 13:16 10/12/24 13:50 Temperature Temperature Source Pulse Rate 100 Respiratory Rate 17 Respiratory Effort Normal Non-Labored Respiratory Depth Normal Respiratory Pattern Normal Normal Blood Pressure Blood Pressure Mean Pulse Ox Oxygen Delivery Method Room Air Room Air 10/12/24 15:47 10/12/24 16:00 Temperature 38.1 C H Temperature Source Oral Pulse Rate 143 H Respiratory Rate 32 H Respiratory Effort Respiratory Depth Respiratory Pattern Blood Pressure 126/115 H Blood Pressure Mean 118 Pulse Ox 91 (more content not included)... Normal [facility] Influenza virus A and B and SARS-CoV-2 (COVID-19) and Respiratory syncytial virus RNAOrdered By: Yuri Meier on 10-12-2024 SARS-CoV-2 (COVID-19) RNA MEL+probe Ql (Unsp spec) RSV Abnormal [facility] L501.4020on 10-12-2024 TROPONIN-I HS 42 pg/mL Normal 3.0-54.0 [facility] Comment on above: Order Comment: Comme nts: SPECIMEN #3 'TROP' Serial specimen #1, #2 or #3: 3 Result Comment: Plea se Note: New Test Units and Gender Specific Reference Ranges. For more information see Policy Stat Procedure [place] High Sensitivity Troponin (TNIH) and attachments. Performed By: #### L 501.4020 #### [facility] [address] [place], [address] TROPONIN-I HS 36 pg/mL Normal 3.0-54.0 [facility] Comment on above: Order Comment: Comme nts: SPECIMEN #2'TROP' Serial specimen #1, #2 or #3: 2 Result Comment: Plea se Note: New Test Units and Gender Specific Reference Ranges. For more information see Policy Stat Procedure [place] High Sensitivity Troponin (TNIH) and attachments. Performed By: #### L 100.0100 #### [facility] [address] [place], [address] TROPONIN-I HS 33 pg/mL Normal 3.0-54.0 [facility] Comment on above: Order Comment: 'TROP ' Serial specimen #1, #2 or #3: 1 Result Comment: Plea se Note: New Test Units and Gender Specific Reference Ranges. For more information see Policy Stat Procedure [place] High Sensitivity Troponin (TNIH) and attachments. Performed By: #### L 100.0100, L500.4050 #### [facility] [address] [place], [address] M100.678on 10-12-2024 M100.678 Pending SARS-CoV-2 (COVID 19) Negative INFLUENZA A Negative INFLUENZA B Negative RSV PCR A Positive A RSV Normal [facility] Comment on above: Performed By: #### L 100.0100 #### [facility] [place], [address] Troponin IOrdered By: Doug centeno on 10-12-2024 Troponin I High Sensitivity 42 pg/mL 3.0-54.0 [facility] Comment on above: Please Note: New Alejandra t Units and Gender Specific Reference Ranges. For more information see Policy Stat Procedure [place] High Sensitivity Troponin (TNIH) and attachments. Sarah 10-11-2024 CNPN Telephone (FAMPWS) MARY CRANE ([id number]) 1940 F TXT Date Time Provider Department 10/11/24 [facility] During your visit today, we recorded the following information about you: Camila Finley RN 10/11/2024 11:37 AM Signed Patient calls and states that she is not feeling well for the past 2 days. Patient reports that she has had headache, cough, and lots of yellow mucous. Patient is asking if provider can call something in for this. Patient is advised that she needs to be seen by a provider for this. Patient advised that she can come into express care to be evaluated. Patient voiced understanding. Camila Finley RN Allergies As of Date: 10/11/2024 Noted Allergy Reaction FLOXIN (OFLOXACIN) 09/10/2005 10 - Anaphylaxis BUMEX (BUMETANIDE) 09/10/2005 5 - Intolerance HYDROCHLOROTHIAZIDE 09/10/2005 2 - Rash 5 - Intolerance Comments: leucocytoclastic vasculitis KEFLEX (CEPHALEXIN) 09/10/2005 2 - Rash NAPROXEN 09/10/2005 2 - Rash 4 - Hives NORVASC (AMLODIPINE BESYLATE) 09/10/2005 5 - Intolerance PENICILLINS 09/10/2005 5 - Intolerance Comments: Rash PROCTOSOL (HYDROCORTISONE ACETATE)09/10/2005 5 - Intolerance SULFA (SULFONAMIDE ANTIBIOTICS) 09/10/2005 2 - Rash 8 - GI Upset COLCHICINE 10/17/2005 4 - Hives MINOXIDIL 03/24/2011 14 - Other: See Comments Comments: facial hair Date Reviewed: 09/19/2024 Reviewed by: Courtney Flores MA - Fully Assessed Reason for Visit: Patient Update [1234] Prescriptions as of 10/11/2024 - cholecalciferol, Vitamin D3, (VITAMIN D3) 1,250 mcg (50,000 unit) cap capsule Take 1 capsule by mouth one time a week. - atenolol (TENORMIN) 25 mg tablet Take 1 tablet by mouth two times a day. - cloNIDine HCl (CATAPRES) 0.2 mg tablet Take 1 tablet by mouth two times a day. - losartan (COZAAR) 100 mg tablet Take 1 tablet by mouth once daily. - potassium chloride ER (KLOR-CON M10) 10 mEq tablet Take 1 tablet by mouth two times a day. - rosuvastatin (CRESTOR) 10 mg tablet Take 1 tablet by mouth once daily. - nystatin (NYSTOP) powder Apply 1 application to affected area four times a day as needed. Yeast infection/rash in groin and under breasts - ketoconazole (NIZORAL) 2 % cream Apply to affected area two times a day. - levothyroxine (LEVOXYL) 25 mcg tablet Take 1 tablet by mouth once daily. Take on empty stomach. For Thyroid - folic acid 1 mg tablet Take 2 tablets by mouth once daily. - triamcinolone acetonide (KENALOG) 0.1 % cream Apply 1 application to affected area two times a day as needed (rash). Apply sparingly to area for rash/itching. - amLODIPine (NORVASC) 2.5 mg tablet Take 1 tablet by mouth once daily. - allopurinol (ZYLOPRIM) 100 mg tablet Take 1 tablet by mouth once daily. - Cholecalciferol, Vitamin D3, 50 mcg (2,000 unit) cap Take 1 capsule by mouth once daily. - dicyclomine (BENTYL) 10 mg capsule Take 1 capsule by mouth before meals and at bedtime. For diarrhea or abdominal cramping - furosemide (LASIX) 40 mg tablet Take 1 tablet by mouth once daily. - cyanocobalamin (VITAMIN B-12) 1,000 mcg tab Take 1,000 mcg by mouth once daily. - triamcinolone acetonide (KENALOG) 0.1 % cream Apply 1 application to affected area twice daily. On rash, Apply sparingly to area for rash/itching. - vit A/vit C/vit E/zinc/copper (OCUVITE PRESERVISION ORAL) Take by mouth twice daily. - apremilast (OTEZLA) 30 mg tablet Take 30 mg by mouth twice daily. - hydrocortisone probutate 0.1 % crea Apply to affected area once daily as needed. - loratadine (CLARITIN) 10 mg tablet Take 10 mg by mouth once daily. Takes daily as needed - acetaminophen (TYLENOL) 325 mg tablet Take 650 mg by mouth every 6 hours as needed. Problem List As Of Date 10/11/2024 Noted Resolved Benign neoplasm of colon [D12.6] 09/30/2005 02/24/2020 DIVERTICULOSIS OF COLON W/O BLEED [K57.30] 09/30/2005 Internal hemorrhoids without mention of complic*09/30/2005 02/24/2020 CARPAL TUNNEL SYNDROME [G56.00] 10/17/2005 03/12/2006 LOC PRIM OSTEOARTH-HAND [M19.049] 10/17/2005 Other tenosynovitis of hand and wrist [M65.849,*10/17/2005 02/24/2020 Follow-up examination, following unspecified lindsay*02/26/2006 02/08/2015 Rheumatoid arthritis involving multiple sites w*02/27/2006 CARPAL TUNNEL SYNDROME [G56.00] 03/17/2006 HYPERTENSION NOS [I10] 05/30/2014 Sicca syndrome (HCC) [M35.00] 11/29/2021 Sialoadenitis [K11.20] 09/04/2008 02/24/2020 Gout [M10.9] 11/18/2010 Hypertension [I10] 12/18/2010 05/29/2016 Pulmonary hypertension [I27.20] 08/27/2011 Sjogren's syndrome [M35.00] 03/04/2013 Dysphagia, unspecified(787.20) [R13.10] 12/21/2014 12/21/2014 Esophageal reflux [K21.9] 12/21/2014 12/21/2014 Nausea alone [R11.0] 12/21/2014 12/21/2014 Chronic kidney disease [N18.9] 02/09/2015 02/24/2020 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 Normal [facility] CNPNon 10-06-2024 CNPN Telephone (FAMPWS) MARY CRANE ([id number]) 1940 F TXT Date Time Provider Department 10/06/24 ATUL HARVEY [facility] During your visit today, we recorded the following information about you: Joslyn Turk RN 10/06/2024 9:55 AM Signed Patient calls to ask if prescription for Vitamin D 50,000 units has been sent to the pharmacy yet. Most recent Vitamin D order is for 2,000 units daily. Patient reports that daughter told her Dr. Harvey wanted her to now take the 50,000 unit dose weekly. Pended. Please review and advise. JOSE Smith Jordan L, DO 10/07/2024 7:05 AM Signed The following approved medication requests have been transmitted electronically. Requested Prescriptions Signed Prescriptions Disp Refills cholecalciferol, Vitamin D3, (VITAMIN D3) 1,250 mcg (50,000 unit) cap capsule 12 capsule 2 Sig: Take 1 capsule by mouth one time a week. Authorizing Provider: ATUL HARVEY DO Holiday, [place], [place] 10/07/2024 8:16 AM Signed Pt informed Lulú Tang MA Allergies As of Date: 10/06/2024 Noted Allergy Reaction FLOXIN (OFLOXACIN) 09/10/2005 10 - Anaphylaxis BUMEX (BUMETANIDE) 09/10/2005 5 - Intolerance HYDROCHLOROTHIAZIDE 09/10/2005 2 - Rash 5 - Intolerance Comments: leucocytoclastic vasculitis KEFLEX (CEPHALEXIN) 09/10/2005 2 - Rash NAPROXEN 09/10/2005 2 - Rash 4 - Hives NORVASC (AMLODIPINE BESYLATE) 09/10/2005 5 - Intolerance PENICILLINS 09/10/2005 5 - Intolerance Comments: Rash PROCTOSOL (HYDROCORTISONE ACETATE)09/10/2005 5 - Intolerance SULFA (SULFONAMIDE ANTIBIOTICS) 09/10/2005 2 - Rash 8 - GI Upset COLCHICINE 10/17/2005 4 - Hives MINOXIDIL 03/24/2011 14 - Other: See Comments Comments: facial hair Date Reviewed: 09/19/2024 Reviewed by: Courtney Flores MA - Fully Assessed Reason for Visit: Medication Question [1478] Order(s):cholecalcifer ol, Vitamin D3, (VITAMIN D3) 1,250 mcg (50,000 unit) cap capsuleTake 1 capsule by mouth one time a week.Disp: 12 capsuleRfl: 2 Prescriptions as of 10/07/2024 - cholecalciferol, Vitamin D3, (VITAMIN D3) 1,250 mcg (50,000 unit) cap capsule Take 1 capsule by mouth one time a week. - atenolol (TENORMIN) 25 mg tablet Take 1 tablet by mouth two times a day. - cloNIDine HCl (CATAPRES) 0.2 mg tablet Take 1 tablet by mouth two times a day. - losartan (COZAAR) 100 mg tablet Take 1 tablet by mouth once daily. - potassium chloride ER (KLOR-CON M10) 10 mEq tablet Take 1 tablet by mouth two times a day. - rosuvastatin (CRESTOR) 10 mg tablet Take 1 tablet by mouth once daily. - nystatin (NYSTOP) powder Apply 1 application to affected area four times a day as needed. Yeast infection/rash in groin and under breasts - ketoconazole (NIZORAL) 2 % cream Apply to affected area two times a day. - levothyroxine (LEVOXYL) 25 mcg tablet Take 1 tablet by mouth once daily. Take on empty stomach. For Thyroid - folic acid 1 mg tablet Take 2 tablets by mouth once daily. - triamcinolone acetonide (KENALOG) 0.1 % cream Apply 1 application to affected area two times a day as needed (rash). Apply sparingly to area for rash/itching. - amLODIPine (NORVASC) 2.5 mg tablet Take 1 tablet by mouth once daily. - allopurinol (ZYLOPRIM) 100 mg tablet Take 1 tablet by mouth once daily. - Cholecalciferol, Vitamin D3, 50 mcg (2,000 unit) cap Take 1 capsule by mouth once daily. - dicyclomine (BENTYL) 10 mg capsule Take 1 capsule by mouth before meals and at bedtime. For diarrhea or abdominal cramping - furosemide (LASIX) 40 mg tablet Take 1 tablet by mouth once daily. - cyanocobalamin (VITAMIN B-12) 1,000 mcg tab Take 1,000 mcg by mouth once daily. - triamcinolone acetonide (KENALOG) 0.1 % cream Apply 1 application to affected area twice daily. On rash, Apply sparingly to area for rash/itching. - vit A/vit C/vit E/zinc/copper (OCUVITE PRESERVISION ORAL) Take by mouth twice daily. - apremilast (OTEZLA) 30 mg tablet Take 30 mg by mouth twice daily. - hydrocortisone probutate 0.1 % crea Apply to affected area once daily as needed. - loratadine (CLARITIN) 10 mg tablet Take 10 mg by mouth once daily. Takes daily as needed - acetaminophen (TYLENOL) 325 mg tablet Take 650 mg by mouth every 6 hours as needed. Problem List As Of Date 10/06/2024 Noted Resolved Benign neoplasm of colon [D12.6] 09/30/2005 02/24/2020 DIVERTICULOSIS OF COLON W/O BLEED [K57.30] 09/30/2005 Internal hemorrhoids without mention of complic*09/30/2005 02/24/2020 CARPAL TUNNEL SYNDROME [G56.00] 10/17/2005 03/12/2006 LOC PRIM OSTEOARTH-HAND [M19.049] 10/17/2005 Other tenosynovitis of hand and wrist [M65.849,*10/17/2005 02/24/2020 Follow-up examination, following unspecified lindsay*02/26/2006 02/08/2015 Rheumatoid arthritis involving multiple sites w*02/27/2006 CARPAL TUNNEL SYNDROME [G56.00] (more content not included)... Normal [facility] CNOVon 09-19-2024 CNOV Office Visit (ORTHWS ) MARY CRANE ([id number]) 1940 F TXT Date Time Provider Department 09/19/24 3:00 PM PHUC MARTI During your visit today, we recorded the following information about you: Phuc Marti MD 10/12/2024 4:32 PM Signed Phuc Marti MD Department of Orthopaedics [facility] [address] [place] [id number] Dept: [phone] Dept September 19, 2024 CHIEF COMPLAINT: New and Pain of the Left Wrist HPI Patient here today for left wrist pain present for a few months. She states that she gets sharp pain when she tries to lift anything with weight. She is left hand dominant. X-ray completed on 08/22/2024. ASSESSMENT: M18.12 Primary osteoarthritis of first carpometacarpal joint of left hand (primary encounter diagnosis) M25.532 Left wrist pain PLAN: we discussed the treatment options for CMC OA. She'll start with a brace for now. FOLLOW UP INSTRUCTIONS: As needed. OBJECTIVE: Ms. Mary Crane is a pleasant 84 year old in no apparent distress. Gen:There were no vitals taken for this visit. nl development, non obese, no deformities ENT: Normocephalic, normal hearing, moist mucosa CV: Pulses:Radial= 2+ and symmetric, capillary refill < 2 secs, no peripheral edema/varicosities Skin: no rash, bruising or lesions. Good turgor. Psych: cooperative and appropriate, alert and oriented x 3, good mood and affect. Musculoskeletal: Mild swelling at basal joint of the thumb consistent with OA. Crepitus on grind testing. IMAGING: * * *Final Report* * * DATE OF EXAM: Aug 22 2024 11:47AM WRX [id number] - XR WRIST 3V PA/LAT/OBL LT / PROCEDURE REASON: Left wrist pain * * * * Physician Interpretation * * * * EXAMINATION: XR WRIST 3V PA/LAT/OBL LT HISTORY: PT STATES LEFT WRIST PAIN RA Left wrist pain . TECHNIQUE: XR WRIST 3V PA/LAT/OBL LT Laterality: LEFT Number of different views (projections): 3 M: XB_1 COMPARISON: RESULT: Advanced first CMC degenerative changes and mild degenerative change at the triscaphe joint. Mild soft tissue swelling around the left wrist. No acute fracture or dislocation. There are no bony erosions. Supporting Subjective Information Below: Past Medical History: PAST MEDICAL HISTORY Diagnosis Date Advance care planning 04/01/2022 Daughter Noemy Arrhythmia Benign neoplasm of colon Chronic kidney disease 02/09/2015 Diverticulosis of colon (without mention of hemorrhage) IFG (impaired fasting glucose) 03/2022 Incisional hernia 07/06/2015 Internal hemorrhoids without mention of complication Rheumatoid arthritis(714.0) Rheumatoid arthritis(714.0) Sicca syndrome (HCC) Unspecified essential hypertension Past Surgical History: PAST SURGICAL HISTORY Procedure Laterality Date CATARACT EXTRACTION HX 10/12/2004 COLONOSCOPY FLX DX W/COLLJ SPEC WHEN PFRMD 09/30/2005 Colonoscopy COLONOSCOPY FLX DX W/COLLJ SPEC WHEN PFRMD 07/28/2016 Colonoscopy COLONOSCOPY SCREENING 09/30/2022 multiple adenomatous polyps, repeat in 3 yrs ESOPHAGOGASTRODUODENOS COPY TRANSORAL DIAGNOSTIC 12/21/2014 EGD LAPAROSCOPY SURG CHOLECYSTECTOMY 02/20/2015 NEUROPLASTY AND/TRANSPOS MEDIAN NRV CARPAL TUNNE 02/12/2006 Carpal tunnel decomp Left NEUROPLASTY AND/TRANSPOS MEDIAN NRV CARPAL TUNNE 02/27/2006 Carpal tunnel decomp Right PAST SURGICAL HISTORY OF 10/12/2001 hemorrhoidectomy , bladder, and umbilical hernia repair PAST SURGICAL HISTORY OF 08/12/2006 bladder suspension REPAIR FIRST ABDOMINAL WALL HERNIA 07/06/2015 with mesh VAGINAL HYSTERECTOMY UTERUS 250 GM/< 10/12/1983 Hysterectomy, vaginal and bladder tacked up Family History: FAMILY HISTORY Problem Relation Age of Onset Diabetes Mother Hypertension Mother Heart Father Diabetes Sister No Known Problems Sister No Known Problems Brother Heart Brother No Known Problems Brother Social History: Social History Tobacco Use Smoking status: Never Smokeless tobacco: Never Vaping Use Vaping status: Never Used Substance Use Topics Alcohol use: No Drug use: No Medications: Current Outpatient Medications Medication Sig atenolol (TENORMIN) 25 mg tablet Take 1 tablet by mouth two times a day. cloNIDine HCl (CATAPRES) 0.2 mg tablet Take 1 tablet by mouth two times a day. losartan (COZAAR) 100 mg tablet Take 1 tablet by mouth once daily. potassium chloride ER (KLOR-CON M10) 10 mEq tablet Take 1 tablet by mouth two times a day. rosuvastatin (CRESTOR) 10 mg tablet Take 1 tablet by mouth once daily. levothyroxine (LEVOXYL) 25 mcg tablet Take 1 tablet by mouth once daily. Take on empty stomach. For Thyroid folic acid 1 mg tablet Take 2 tablets by mouth once daily. amLODIPine (NORVASC) 2.5 mg tablet Take 1 tablet by mouth once daily. allopurinol (ZYLOPRIM) 100 mg tablet Take 1 tablet by mouth once daily. Chol (more content not included)... Normal [facility] 08-31-2024 [facility]ARY [facility] ([id number]) 1940 F TXT Date Time Provider Department 08/31/24 [facility] During your visit today, we recorded the following information about you: Atul Harvey DO 08/31/2024 10:12 PM Signed Please let her know that her hand/wrist xray shows osteoarthritis, she can consider follow up with ORthopedics for injection in joint DO Candi Woodruff Linda M, LPN 09/01/2024 6:18 PM Signed Spoke with pt gave information provided. Pt voices understanding has appointment with ortho set up. Allergies As of Date: 08/31/2024 Noted Allergy Reaction FLOXIN (OFLOXACIN) 09/10/2005 10 - Anaphylaxis BUMEX (BUMETANIDE) 09/10/2005 5 - Intolerance HYDROCHLOROTHIAZIDE 09/10/2005 2 - Rash 5 - Intolerance Comments: leucocytoclastic vasculitis KEFLEX (CEPHALEXIN) 09/10/2005 2 - Rash NAPROXEN 09/10/2005 2 - Rash 4 - Hives NORVASC (AMLODIPINE BESYLATE) 09/10/2005 5 - Intolerance PENICILLINS 09/10/2005 5 - Intolerance Comments: Rash PROCTOSOL (HYDROCORTISONE ACETATE)09/10/2005 5 - Intolerance SULFA (SULFONAMIDE ANTIBIOTICS) 09/10/2005 2 - Rash 8 - GI Upset COLCHICINE 10/17/2005 4 - Hives MINOXIDIL 03/24/2011 14 - Other: See Comments Comments: facial hair Date Reviewed: 08/22/2024 Reviewed by: Mary Mendieta LPN - Fully Assessed Prescriptions as of 09/01/2024 - atenolol (TENORMIN) 25 mg tablet Take 1 tablet by mouth two times a day. - cloNIDine HCl (CATAPRES) 0.2 mg tablet Take 1 tablet by mouth two times a day. - losartan (COZAAR) 100 mg tablet Take 1 tablet by mouth once daily. - potassium chloride ER (KLOR-CON M10) 10 mEq tablet Take 1 tablet by mouth two times a day. - rosuvastatin (CRESTOR) 10 mg tablet Take 1 tablet by mouth once daily. - nystatin (NYSTOP) powder Apply 1 application to affected area four times a day as needed. Yeast infection/rash in groin and under breasts - ketoconazole (NIZORAL) 2 % cream Apply to affected area two times a day. - levothyroxine (LEVOXYL) 25 mcg tablet Take 1 tablet by mouth once daily. Take on empty stomach. For Thyroid - folic acid 1 mg tablet Take 2 tablets by mouth once daily. - triamcinolone acetonide (KENALOG) 0.1 % cream Apply 1 application to affected area two times a day as needed (rash). Apply sparingly to area for rash/itching. - amLODIPine (NORVASC) 2.5 mg tablet Take 1 tablet by mouth once daily. - allopurinol (ZYLOPRIM) 100 mg tablet Take 1 tablet by mouth once daily. - Cholecalciferol, Vitamin D3, 50 mcg (2,000 unit) cap Take 1 capsule by mouth once daily. - dicyclomine (BENTYL) 10 mg capsule Take 1 capsule by mouth before meals and at bedtime. For diarrhea or abdominal cramping - furosemide (LASIX) 40 mg tablet Take 1 tablet by mouth once daily. - cyanocobalamin (VITAMIN B-12) 1,000 mcg tab Take 1,000 mcg by mouth once daily. - triamcinolone acetonide (KENALOG) 0.1 % cream Apply 1 application to affected area twice daily. On rash, Apply sparingly to area for rash/itching. - vit A/vit C/vit E/zinc/copper (OCUVITE PRESERVISION ORAL) Take by mouth twice daily. - apremilast (OTEZLA) 30 mg tablet Take 30 mg by mouth twice daily. - hydrocortisone probutate 0.1 % crea Apply to affected area once daily as needed. - loratadine (CLARITIN) 10 mg tablet Take 10 mg by mouth once daily. Takes daily as needed - acetaminophen (TYLENOL) 325 mg tablet Take 650 mg by mouth every 6 hours as needed. Problem List As Of Date 08/31/2024 Noted Resolved Benign neoplasm of colon [D12.6] 09/30/2005 02/24/2020 DIVERTICULOSIS OF COLON W/O BLEED [K57.30] 09/30/2005 Internal hemorrhoids without mention of complic*09/30/2005 02/24/2020 CARPAL TUNNEL SYNDROME [G56.00] 10/17/2005 03/12/2006 LOC PRIM OSTEOARTH-HAND [M19.049] 10/17/2005 Other tenosynovitis of hand and wrist [M65.849,*10/17/2005 02/24/2020 Follow-up examination, following unspecified lindsay*02/26/2006 02/08/2015 Rheumatoid arthritis involving multiple sites w*02/27/2006 CARPAL TUNNEL SYNDROME [G56.00] 03/17/2006 HYPERTENSION NOS [I10] 05/30/2014 Sicca syndrome (HCC) [M35.00] 11/29/2021 Sialoadenitis [K11.20] 09/04/2008 02/24/2020 Gout [M10.9] 11/18/2010 Hypertension [I10] 12/18/2010 05/29/2016 Pulmonary hypertension [I27.20] 08/27/2011 Sjogren's syndrome [M35.00] 03/04/2013 Dysphagia, unspecified(787.20) [R13.10] 12/21/2014 12/21/2014 Esophageal reflux [K21.9] 12/21/2014 12/21/2014 Nausea alone [R11.0] 12/21/2014 12/21/2014 Chronic kidney disease [N18.9] 02/09/2015 02/24/2020 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 Normal [facility] CNOVon 08-22-2024 CNOV Office Visit (FAMPWS ) MARY CRANE ([id number]) 1940 F TXT Date Time Provider Department 08/22/24 9:40 AM ATUL HARVEY FAMPWS During your visit today, we recorded the following information about you: Temperature Pulse Respiration Blood pressure 97 degrees 60/minute 20/minute 122/64 Weight 71.4 kg Atul Harvey DO 08/22/2024 12:15 PM Signed CC: Mary Crane is a 83 year old female who presents to the office for follow up HPI: Left wrist pain, has been worsening, interested in getting help with pain symptoms. Hasn't had xrays or seen orthopedics. No injuries. Worse with use. Is left hand dominant CKD stage 2-3, mild, has increased her water intake as recommended, avoids NSAIDs as d/w her previous Lactose intolerance, occasional diarrhea/abd cramping IFG, diet controlled, tries to also stay physically active Hypothyroidism, taking levothyroxine TSH Date Value Ref Range Status 08/16/2024 2.460 0.270 - 4.200 mIU/L Final RA, seen by Surgeon Assistant for care, taking Otezla as prescribed HTN, well controlled, taking medications as prescribed. 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 routinely, Only occasional palpitations and heart racing symptoms as well as dyspnea if she is exerting up an incline such as walking up her driveway after getting her mail, no chest pressure or Pain . 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 PAST MEDICAL HISTORY Diagnosis Date Advance care planning 04/01/2022 Daughter Noemy Arrhythmia Benign neoplasm of colon Chronic kidney disease 02/09/2015 Diverticulosis of colon (without mention of hemorrhage) IFG (impaired fasting glucose) 03/2022 Incisional hernia 07/06/2015 Internal hemorrhoids without mention of complication Rheumatoid arthritis(714.0) Rheumatoid arthritis(714.0) Sicca syndrome (HCC) Unspecified essential hypertension PAST SURGICAL HISTORY Procedure Laterality Date CATARACT EXTRACTION HX 10/12/2004 COLONOSCOPY FLX DX W/COLLJ SPEC WHEN PFRMD 09/30/2005 Colonoscopy COLONOSCOPY FLX DX W/COLLJ SPEC WHEN PFRMD 07/28/2016 Colonoscopy COLONOSCOPY SCREENING 09/30/2022 multiple adenomatous polyps, repeat in 3 yrs ESOPHAGOGASTRODUODENOS COPY TRANSORAL DIAGNOSTIC 12/21/2014 EGD LAPAROSCOPY SURG CHOLECYSTECTOMY 02/20/2015 NEUROPLASTY AND/TRANSPOS MEDIAN NRV CARPAL TUNNE 02/12/2006 Carpal tunnel decomp Left NEUROPLASTY AND/TRANSPOS MEDIAN NRV CARPAL TUNNE 02/27/2006 Carpal tunnel decomp Right PAST SURGICAL HISTORY OF 10/12/2001 hemorrhoidectomy , bladder, and umbilical hernia repair PAST SURGICAL HISTORY OF 08/12/2006 bladder suspension REPAIR FIRST ABDOMINAL WALL HERNIA 07/06/2015 with mesh VAGINAL HYSTERECTOMY UTERUS 250 GM/< 10/12/1983 Hysterectomy, vaginal and bladder tacked up Social History: Social History Tobacco Use Smoking status: Never Smokeless tobacco: Never Vaping Use Vaping status: Never Used Substance Use Topics Alcohol use: No Drug use: No FAMILY HISTORY Problem Relation Age of Onset Diabetes Mother Hypertension Mother Heart Father Diabetes Sister No Known Problems Sister No Known Problems Brother Heart Brother No Known Problems Brother Current Outpatient prescriptions: atenolol (TENORMIN) 25 mg tablet Take 1 tablet by mouth two times a day. cloNIDine HCl (CATAPRES) 0.2 mg tablet Take 1 tablet by mouth two times a day. losartan (COZAAR) 100 mg tablet Take 1 tablet by mouth once daily. potassium chloride ER (KLOR-CON M10) 10 mEq tablet Take 1 tablet by mouth two times a day. rosuvastatin (CRESTOR) 10 mg tablet Take 1 tablet by mouth once daily. nystatin (NYSTOP) powder Apply 1 application to affected area four times a day as needed. Yeast infection/rash in groin and under breasts ketoconazole (NIZORAL) 2 % cream Apply to affected area two times a day. (Patient taking differently: Apply to affected area two times a day. PRN) levothyroxine (LEVOXYL) 25 mcg tablet Take 1 tablet by mouth once daily. Take on empty stomach. For Thyroid folic acid 1 mg tablet Take 2 tablets by mouth once daily. triamcinolone acetonide (KENALOG) 0.1 % cream Apply 1 application to affected area two times a day as needed (rash). Apply sparingly to area for rash/itching. amLODIPine (NORVASC) 2.5 mg tablet Take 1 tablet by mouth once daily. allopurinol (ZYLOPRIM) 100 mg tablet Take 1 tablet by mouth once daily. Cholecalciferol, Vitamin D3, 50 mcg (2,000 unit) cap Take 1 capsule by mouth once daily. dicyclomine (BENTYL) 10 mg capsule Take 1 capsule by mouth before meals and at bedtime. For diarrhea or abdominal cramping furosemide (LASIX) 40 mg tablet Take 1 tablet by mouth once daily. cyanocobalamin (VITAMIN B-12) 1,000 mcg tab Take 1,000 mcg by mouth once daily. triamcinolone acetonide (KENALOG) 0.1 % cream Apply 1 application to affected area twice daily. On rash, Apply sparingly to area for rash/itching. (Patient t (more content not included)... Normal [facility] XR WRIST 3V PA/LAT/OBL LTon 08-22-2024 XR WRIST 3V PA/LAT/OBL LT * * *Final Report* * * DATE OF EXAM: Aug 22 2024 11:47AM WRX [id number] - XR WRIST 3V PA/LAT/OBL LT / PROCEDURE REASON: Left wrist pain * * * * Physician Interpretation * * * * EXAMINATION: XR WRIST 3V PA/LAT/OBL LT HISTORY: PT STATES LEFT WRIST PAIN RA Left wrist pain . TECHNIQUE: XR WRIST 3V PA/LAT/OBL LT Laterality: LEFT Number of different views (projections): 3 M: XB_1 COMPARISON: RESULT: Advanced first CMC degenerative changes and mild degenerative change at the triscaphe joint. Mild soft tissue swelling around the left wrist. No acute fracture or dislocation. There are no bony erosions. IMPRESSION: First CMC degenerative changes. Public Health Analyst: PSCB Transcribe Date/Time: Aug 26 2024 1:33P Dictated by : DEA REYNOLDS MD This examination was interpreted and the report reviewed and electronically signed by: DEA REYNOLDS MD on Aug 26 2024 1:34PM EST [id number] Normal [facility] 25(OH)D3 SerPl-ncon 2023 25-hydroxyvitamin D3 [Mass/Vol] 46.3 ng/mL Normal 31.0-80.0 [facility] Comment on above: Order Comment: Adelita austin Type: BLOOD SPECIMENOrdering Facility: [facility] Address: [address] [place] [address] Result Comment: Clas sification of 25 [place] Vitamin D status: Deficiency/Insufficiency: < or = 30 ng/ml. Sufficiency/Optimal Levels: 31-80 ng/mL Toxicity: > 100 ng/mL. Test performed by chemiluminescent immunoassay. Performed By: #### 1 989-3 ####[facility] [id number] [place] [address] [place] CBC panel Auto (Bld)on 08-16 Erythrocyte distribution width (RBC) [Ratio] 13.4 % Normal 11.5-15.0 [facility] Comment on above: Order Comment: Adelita austin Type: BLOOD SPECIMEN Ordering Facility: [facility] Address: [address] [place] [address] Performed By: #### 2 4323-8, 2132-9 #### [facility] CLIA [id number] [address] [place] [address] [place] Hematocrit (Bld) [Volume fraction] 36.1 % Normal 36.0-46.0 [facility] Comment on above: Order Comment: Speci men Type: BLOOD SPECIMEN Ordering Facility: [facility] Address: [address] [place] [address] Performed By: #### 2 432-8, 2132-06 #### [facility] CLIA [id number] [address] [place] [address] [place] Hemoglobin (Bld) [Mass/Vol] 11.4 g/dL Low 11.5-15.5 [facility] Comment on above: Order Comment: Speci men Type: BLOOD SPECIMEN Ordering Facility: [facility] Address: [address] [place] [address] Performed By: #### 2 432-8, 2132-06 #### [facility] CLIA [id number] [address] [place] [address] [place] MCH (RBC) [Entitic mass] 29.2 pg Normal 26.0-34.0 [facility] Comment on above: Order Comment: Speci men Type: BLOOD SPECIMEN Ordering Facility: [facility] Address: [address] [place] [address] Performed By: #### 2 4323-8, 2132-06 #### [facility] CLIA [id number] [address] [place] [address] [place] MCHC (RBC) [Mass/Vol] 31.6 g/dL Normal 30.5-36.0 [facility] Comment on above: Order Comment: Speci men Type: BLOOD SPECIMEN Ordering Facility: [facility] Address: [address] [place] [address] Performed By: #### 2 4323-8, 2132-06 #### [facility] CLIA [id number] [address] [place] [address] [place] MCV (RBC) [Entitic vol] 92.3 fL Normal 80.0-100.0 [facility] Comment on above: Order Comment: Speci men Type: BLOOD SPECIMEN Ordering Facility: [facility] Address: [address] [place] [address] Performed By: #### 2 432-8, 2132-06 #### [facility] CLIA [id number] [address] [place] [address] [place] Nucleated RBC (Bld) [#/Vol] 10*3/uL Normal <0.01 [facility] Comment on above: Order Comment: Speci men Type: BLOOD SPECIMEN Ordering Facility: [facility] Address: [address] [place] [address] Performed By: #### 2 432-8, 2132-06 #### [facility] CLIA [id number] [address] [place] [address] [place] Platelet mean volume (Bld) [Entitic vol] 11.2 fL Normal 9.0-12.7 [facility] Comment on above: Order Comment: Speci men Type: BLOOD SPECIMEN Ordering Facility: [facility] Address: [address] [place] [address] Performed By: #### 2 432-8, 2132-06 #### [facility] CLIA [id number] [address] [place] [address] [place] Platelets (Bld) [#/Vol] 165 10*3/uL Normal 150-400 [facility] Comment on above: Order Comment: Speci men Type: BLOOD SPECIMEN Ordering Facility: [facility] Address: [address] [place] [address] Performed By: #### 2 432-8, 2132-06 #### [facility] CLIA [id number] [address] [place] [address] [place] RBC (Bld) [#/Vol] 3.91 10*6/uL Normal 3.90-5.20 [facility] Comment on above: Order Comment: Speci men Type: BLOOD SPECIMEN Ordering Facility: [facility] Address: [address] [place] [address] Performed By: #### 2 432-8, 2132-06 #### [facility] CLIA [id number] [address] [place] [address] [place] WBC (Bld) [#/Vol] 6.35 10*3/uL Normal 3.70-11.00 [facility] Comment on above: Order Comment: Speci men Type: BLOOD SPECIMEN Ordering Facility: [facility] Address: [address] [place] [address] Performed By: #### 2 432-8, 2132-06 #### [facility] CLIA [id number] [address] [place] [address] [place] Comprehensive metabolic 2000 panelon 08-16-2024 Albumin [Mass/Vol] 3.7 g/dL Low 3.9-4.9 [facility] Comment on above: Order Comment: Speci men Type: BLOOD SPECIMEN Ordering Facility: [facility] Address: [address] [place] [address] Performed By: #### 2 4323-8, 2132-06 #### [facility] CLIA [id number] [address] [place] [address] [place] ALP [Catalytic activity/Vol] 102 U/L Normal 34-123 [facility] Comment on above: Order Comment: Speci men Type: BLOOD SPECIMEN Ordering Facility: [facility] Address: [address] [place] [address] Performed By: #### 2 4323-8, 2132-06 #### [facility] CLIA [id number] [address] [place] [address] [place] ALT [Catalytic activity/Vol] 27 U/L Normal 7-38 [facility] Comment on above: Order Comment: Speci men Type: BLOOD SPECIMEN Ordering Facility: [facility] Address: [address] [place], [place] [address] Performed By: #### 2 432-8, 2132-06 #### [facility] CLIA [id number] [address] [place] [address] [place] Anion gap [Moles/Vol] 12 mmol/L Normal 8-15 [facility] Comment on above: Order Comment: Speci men Type: BLOOD SPECIMEN Ordering Facility: [facility] Address: [address] [place] [address] Performed By: #### 2 4323-8, 2132-06 #### [facility] CLIA [id number] [address] [place] [address] [place] AST [Catalytic activity/Vol] 28 U/L Normal 13-35 [facility] Comment on above: Order Comment: Speci men Type: BLOOD SPECIMEN Ordering Facility: [facility] Address: [address] [place] [address] Performed By: #### 2 4323-8, 2132-06 #### [facility] CLIA [id number] [address] [place] [address] [place] Bilirubin [Mass/Vol] 0.8 mg/dL Normal 0.2-1.3 [facility] Comment on above: Order Comment: Speci men Type: BLOOD SPECIMEN Ordering Facility: [facility] Address: [address] [place] [address] Performed By: #### 2 4323-8, 2132-06 #### [facility] CLIA [id number] [address] [place] [address] [place] Calcium [Mass/Vol] 9.1 mg/dL Normal 8.5-10.2 [facility] Comment on above: Order Comment: Speci men Type: BLOOD SPECIMEN Ordering Facility: [facility] Address: [address] [place] [address] Performed By: #### 2 4323-8, 2132-06 #### [facility] CLIA [id number] [address] [place] [address] [place] Chloride [Moles/Vol] 105 mmol/L Normal 98-107 [facility] Comment on above: Order Comment: Speci men Type: BLOOD SPECIMEN Ordering Facility: [facility] Address: [address] [place] [address] Performed By: #### 2 4323-8, 2132-06 #### [facility] CLIA [id number] [address] [place] [address] [place] CO2 [Moles/Vol] 23 mmol/L Normal 22-30 [facility] Comment on above: Order Comment: Speci men Type: BLOOD SPECIMEN Ordering Facility: [facility] Address: [address] [place] [address] Performed By: #### 2 43238, 2132-06 #### [facility] CLIA [id number] [address] [place] [address] [place] Creatinine [Mass/Vol] 1.03 mg/dL High 0.58-0.96 [facility] Comment on above: Order Comment: Speci men Type: BLOOD SPECIMEN Ordering Facility: [facility] Address: [address] [place] [address] Performed By: #### 2 4323-8, 2132-06 #### [facility] CLIA [id number] [address] [place] [address] [place] Creatinine and Glomerular filtration rate.predicted panel (S/P/Bld) 54 mL/min/1.73m??? Low >=60 [facility] Comment on above: Order Comment: Speci men Type: BLOOD SPECIMEN Ordering Facility: [facility] Address: [address] [place] [address] Result Comment: Ely mated Glomerular Filtration Rate (eGFR) is calculated using the 2020 CKD-EPI creatinine equation. This equation utilizes serum creatinine, sex, and age as parameters. The creatinine assay has traceable calibration to isotope dilution-mass spectrometry. Refer to KDIGO guidelines for clinical interpretation. In patients with unstable renal function, e.g. those with acute kidney injury, the eGFR may not accurately reflect actual GFR. Performed By: #### 2 4323-05, 2132-06 #### [facility] CLIA [id number] [address] [place] [address] [place] Glucose [Mass/Vol] 117 mg/dL High 74-99 [facility] Comment on above: Order Comment: Adelita austin Type: BLOOD SPECIMEN Ordering Facility: [facility] Address: [address] [place] [address] Result Comment: The [place] Diabetes Association (ADA) provides guidance for cutoff values for fasting glucose and random glucose. The ADA defines fasting as no caloric intake for at least 8 hours. Fasting plasma glucose results between 100 to 125 mg/dL indicate increased risk for diabetes (prediabetes). Fasting plasma glucose results greater than or equal to 126 mg/dL meet the criteria for diagnosis of diabetes. In the absence of unequivocal hyperglycemia, results should be confirmed by repeat testing. In a patient with classic symptoms of hyperglycemia or hyperglycemic crisis, random plasma glucose results greater than or equal to 200 mg/dL meet the criteria for diagnosis of diabetes. Reference: Standards of Medical Care in Diabetes 2016, [place] Diabetes Association. Diabetes Care. 2016.39(Suppl 1). Performed By: #### 2 4323-05, 2132-06 #### [facility] CLIA [id number] [address] [place], [place] [address] [place] Potassium [Moles/Vol] 3.9 mmol/L Normal 3.7-5.1 [facility] Comment on above: Order Comment: Adelita austin Type: BLOOD SPECIMEN Ordering Facility: [facility] Address: [address] [place] [address] Performed By: #### 2 4323-05, 2132-06 #### [facility] CLIA [id number] [address] [place], [place] [address] [place] Protein [Mass/Vol] 7.2 g/dL Normal 6.3-8.0 [facility] Comment on above: Order Comment: Speci men Type: BLOOD SPECIMEN Ordering Facility: [facility] Address: [address] [place] [address] Performed By: #### 2 432-8, 2132-06 #### [facility] CLIA [id number] [address] [facility] [place] [address] [place] Sodium [Moles/Vol] 140 mmol/L Normal 136-144 [facility] Comment on above: Order Comment: Speci men Type: BLOOD SPECIMEN Ordering Facility: [facility] Address: [address] [place] [address] Performed By: #### 2 4328, 2132-06 #### [facility] CLIA [id number] [address] [place] [address] [place] Urea nitrogen [Mass/Vol] 14 mg/dL Normal 7-21 [facility] Comment on above: Order Comment: Speci men Type: BLOOD SPECIMEN Ordering Facility: [facility] Address: [address] [place] [address] Performed By: #### 2 4323-8, 2132-06 #### [facility] CLIA [id number] [address] [place] [address] [place] HbA1c (Bld)on 08-16-2024 Average glucose Estimated from glycated hemoglobin (Bld) [Mass/Vol] 123 mg/dL Normal [facility] Comment on above: Order Comment: Speci men Type: BLOOD SPECIMENOrdering Facility: [facility] Address: [address] [place] [address] Result Comment: eAG: (Estimated average glucose) is a calculated value from HgbA1c and is wireless 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 of the average blood glucose level in the last 2-3 month period. Performed By: #### 5 5454-3 ####[facility] [id number] [facility] [place] [address] [place] HbA1c (Bld) [Mass fraction] 5.9 % High 4.3-5.6 [facility] Comment on above: Order Comment: Adelita austin Type: BLOOD SPECIMENOrdering Facility: [facility] Address: [address] [place] [address] Result Comment: [place] Diabetes Association guidelines indicate that patients with HgbA1c in the range 5.7-6.4% are at increased risk for development of diabetes, and intervention by lifestyle modification may be beneficial. HgbA1c greater or equal to 6.5% is considered diagnostic of diabetes. Performed By: #### 5 5454-3 ####[facility] [id number] [place] [address] [place] Lipid 1996 panelon 4 Cholesterol [Mass/Vol] 71 mg/dL Normal <200 [facility] Comment on above: Order Comment: Adelita austin Type: BLOOD SPECIMEN Ordering Facility: [facility] Address: [address] [place] [address] Result Comment: <200 mg/dL, Desirable 200-239 mg/dL, Borderline high >239 mg/dL, High Performed By: #### 5 8410-2 #### [facility] CLIA [id number] [address] [place] [address] STATES OF [facility] Cholesterol in HDL [Mass/Vol] 31 mg/dL Low >39 [facility] Comment on above: Order Comment: Adelita austin Type: BLOOD SPECIMEN Ordering Facility: [facility] Address: [address] [place] [address] Result Comment: 40-5 9 mg/dL, Acceptable >59 mg/dL, High: Negative risk factor for coronary heart disease <40 mg/dL, Low: Positive risk factor for coronary heart disease Performed By: #### 5 8410-2 #### [facility] CLIA [id number] [address] [place] [address] OF [facility] Cholesterol in LDL [Mass/Vol] 23 mg/dL Normal <100 [facility] Comment on above: Order Comment: Adelita austin Type: BLOOD SPECIMEN Ordering Facility: [facility] Address: [address] [place] [address] Result Comment: <100 mg/dL, Optimal 100-129 mg/dL, Near optimal/above optimal 130-159 mg/dL, Borderline high 160-189 mg/dL, High >189 mg/dL, Very high Secondary prevention optimal LDL Cholesterol levels are recommended to be < 70 mg/dL Performed By: #### 5 8410-2 #### [facility] CLIA [id number] [address] [place] [address] [place] Cholesterol in LDL/Cholesterol in HDL [Mass ratio] 0.74 {ratio} Normal <2.54 [facility] Comment on above: Order Comment: Adelita men Type: BLOOD SPECIMEN Ordering Facility: [facility] Address: [address] [place] [address] Result Comment: Refe rence: 1. National Cholesterol Education Program ATP III Guideline At-A-Glance Quick Desk Reference: National Heart, Lung, and Blood [place]. National Institutes of Health. 2001: NIH Publication No. 01-3305. 2. An International Atherosclerosis Society position paper: global recommendations for the management of dyslipidemia: executive summary, Atherosclerosis. 2014: 232(2):410-413. Performed By: #### 5 8410-2 #### [facility] CLIA [id number] [address] [place] [address] [place] Cholesterol in VLDL [Mass/Vol] 17 mg/dL Normal <30 [facility] Comment on above: Order Comment: Javadi men Type: BLOOD SPECIMEN Ordering Facility: [facility] Address: [address] [place] [address] Performed By: #### 5 8410-2 #### [facility] CLIA [id number] [address] [place] [address] [place] Cholesterol non HDL [Mass/Vol] 40 mg/dL Normal <130 [facility] Comment on above: Order Comment: Javadi men Type: BLOOD SPECIMEN Ordering Facility: [facility] Address: [address] [place] [address] Result Comment: <130 mg/dL, Optimal 130-159 mg/dL, Near optimal/above optimal 160-189 mg/dL, Borderline high 190-219 mg/dL, High >219 mg/dL, Very high Secondary prevention optimal non HDL Cholesterol levels are recommended to be <100 mg/dL Performed By: #### 5 8410-2 #### [facility] CLIA [id number] [address] [place] [address] [place] Cholesterol.total/Choles terol in HDL [Mass ratio] 2.29 {ratio} Normal <5.10 [facility] Comment on above: Order Comment: Speci men Type: BLOOD SPECIMEN Ordering Facility: [facility] Address: [address] [place] [address] Performed By: #### 5 8410-2 #### [facility] CLIA [id number] [address] [place] [address] STATES OF [facility] FASTING TIME 12 hrs Normal [facility] Comment on above: Order Comment: Speci men Type: BLOOD SPECIMEN Ordering Facility: [facility] Address: [address] [place] [address] Performed By: #### 5 8410-2 #### [facility] CLIA [id number] [address] [place] [address] [place] Triglyceride [Mass/Vol] 84 mg/dL Normal <150 [facility] Comment on above: Order Comment: Speci men Type: BLOOD SPECIMEN Ordering Facility: [facility] Address: [address] [place] [address] Result Comment: <150 mg/dL, Normal 150-199 mg/dL, Borderline high 200-499 mg/dL, High >499 mg/dL, Very high Performed By: #### 5 8410-2 #### [facility] CLIA [id number] [address] [place] [address] [place] T3 SerPl-mCncon 08-16-2024 T3 [Mass/Vol] 117 ng/dL Normal 79-165 [facility] Comment on above: Order Comment: Speci men Type: BLOOD SPECIMEN Ordering Facility: [facility] Address: [address] [place] [address] Performed By: #### 5 8410-2 #### [facility] CLIA [id number] [address] [place] [address] [place] T4 Free SerPl-mCncon 024 Free T4 [Mass/Vol] 1.4 ng/dL Normal 0.9-1.7 [facility] Comment on above: Order Comment: Speci men Type: BLOOD SPECIMEN Ordering Facility: [facility] Address: [address] [place] [address] Performed By: #### 5 8410-2 #### [facility] [place] [id number] [address] [place] [address] [place] TSH SerPl-aCncon 08-16-2024 TSH Qn 2.460 m[IU]/L Normal 0.270-4.200 [facility] Comment on above: Order Comment: Speci men Type: BLOOD SPECIMEN Ordering Facility: [facility] Address: [address] [place] [address] Performed By: #### 5 8410-2 #### [facility] CLIA [id number] [address] [place] [address] [place] Vit B12 SerPl-mCncon 024 Cobalamin (Vitamin B12) [Mass/Vol] 1404 pg/mL High 232-1245 [facility] Comment on above: Order Comment: Speci men Type: BLOOD SPECIMEN Ordering Facility: [facility] Address: [address] [place] [address] Performed By: #### 2 4323-8, 2132-9 #### [facility] IA [id number] [address] [place] [address] [place] CNPSelina 08-12-2024 CNPN [facility] MARY CRANE ([id number]) 1940 F TXT Date Time Provider Department 08/12/24 ATUL HARVEY During your visit today, we recorded the following information about you: Lulú Tang MA 08/12/2024 11:47 AM Signed Pt request lab orders. Pended basic labs. Please file. DEBORAH Beard M Robin, JOSE 08/15/2024 8:32 AM Signed Pt asking office to call her, once orders are in the lab, to let her know. [phone] Cecilia Sky PA-C 08/15/2024 9:47 AM Signed Labs ordered-please contact patient per below TARI Lemus Linda M, LPN 08/15/2024 10:42 AM Signed Message left labs were ordered. Brooklyn Ying RN 08/15/2024 12:37 PM Signed Patient calling to ask about lab orders. Advised fasting labs ordered. Brooklyn Ying RN Allergies As of Date: 08/12/2024 Noted Allergy Reaction FLOXIN (OFLOXACIN) 09/10/2005 10 - Anaphylaxis BUMEX (BUMETANIDE) 09/10/2005 5 - Intolerance HYDROCHLOROTHIAZIDE 09/10/2005 2 - Rash 5 - Intolerance Comments: leucocytoclastic vasculitis KEFLEX (CEPHALEXIN) 09/10/2005 2 - Rash NAPROXEN 09/10/2005 2 - Rash 4 - Hives NORVASC (AMLODIPINE BESYLATE) 09/10/2005 5 - Intolerance PENICILLINS 09/10/2005 5 - Intolerance Comments: Rash PROCTOSOL (HYDROCORTISONE ACETATE)09/10/2005 5 - Intolerance SULFA (SULFONAMIDE ANTIBIOTICS) 09/10/2005 2 - Rash 8 - GI Upset COLCHICINE 10/17/2005 4 - Hives MINOXIDIL 03/24/2011 14 - Other: See Comments Comments: facial hair Date Reviewed: 08/01/2024 Reviewed by: Rasheed Barrios MD - Fully Assessed Reason for Visit: Lab Orders [1688] Primary Visit Diagnosis:Vitamin B12 deficiency [E53.8] Other Visit Diagnoses:Vitamin D deficiency [E55.9] Dyslipidemia [E78.5] Elevated TSH [R79.89] IFG (impaired fasting glucose) [R73.01] Order(s):T3 [SQT3] Order #: [id number] FUTURE T4 FREE/FREE THYROXINE [SQFT4] Order #: [id number] FUTURE THYROID STIMULATING HORMONE [SQTSH] Order #: [id number] FUTURE VITAMIN B12 [SQB12] Order #: [id number] FUTURE VITAMIN D 25 HYDROXY [SQVITD] Order #: [id number] FUTURE HEMOGLOBIN A1C [HODSP3U] Order #: [id number] FUTURE LIPID PANEL BASIC [SQLIPB] Order #: [id number] FUTURE COMPLETE BLOOD COUNT [SQCBC] Order #: [id number] FUTURE COMPREHENSIVE METABOLIC PANEL [SQCMP] Order #: [id number] FUTURE Prescriptions as of 08/15/2024 - nystatin (NYSTOP) powder Apply 1 application to affected area four times a day as needed. Yeast infection/rash in groin and under breasts - ketoconazole (NIZORAL) 2 % cream Apply to affected area two times a day. - levothyroxine (LEVOXYL) 25 mcg tablet Take 1 tablet by mouth once daily. Take on empty stomach. For Thyroid - folic acid 1 mg tablet Take 2 tablets by mouth once daily. - rosuvastatin (CRESTOR) 10 mg tablet Take 1 tablet by mouth once daily. - triamcinolone acetonide (KENALOG) 0.1 % cream Apply 1 application to affected area two times a day as needed (rash). Apply sparingly to area for rash/itching. - amLODIPine (NORVASC) 2.5 mg tablet Take 1 tablet by mouth once daily. - allopurinol (ZYLOPRIM) 100 mg tablet Take 1 tablet by mouth once daily. - atenolol (TENORMIN) 25 mg tablet Take 1 tablet by mouth two times a day. - Cholecalciferol, Vitamin D3, 50 mcg (2,000 unit) cap Take 1 capsule by mouth once daily. - dicyclomine (BENTYL) 10 mg capsule Take 1 capsule by mouth before meals and at bedtime. For diarrhea or abdominal cramping - furosemide (LASIX) 40 mg tablet Take 1 tablet by mouth once daily. - losartan (COZAAR) 100 mg tablet Take 1 tablet by mouth once daily. - potassium chloride ER (KLOR-CON M10) 10 mEq tablet Take 1 tablet by mouth two times a day. - cloNIDine HCl (CATAPRES) 0.2 mg tablet Take 1 tablet by mouth two times a day. - cyanocobalamin (VITAMIN B-12) 1,000 mcg tab Take 1,000 mcg by mouth once daily. - triamcinolone acetonide (KENALOG) 0.1 % cream Apply 1 application to affected area twice daily. On rash, Apply sparingly to area for rash/itching. - vit A/vit C/vit E/zinc/copper (OCUVITE PRESERVISION ORAL) Take by mouth twice daily. - apremilast (OTEZLA) 30 mg tablet Take 30 mg by mouth twice daily. - hydrocortisone probutate 0.1 % crea Apply to affected area once daily as needed. - loratadine (CLARITIN) 10 mg tablet Take 10 mg by mouth once daily. Takes daily as needed - acetaminophen (TYLENOL) 325 mg tablet Take 650 mg by mouth every 6 hours as needed. Problem List As Of Date 08/12/2024 Noted Resolved Benign neoplasm of colon [D12.6] 09/30/2005 02/24/2020 DIVERTICULOSIS OF COLON W/O BLEED [K57.30] 09/30/2005 Internal hemorrhoids without mention of complic*09/30/2005 02/24/2020 CARPAL TUNNEL SYNDROME [G56.00] 10/17/2005 03/12/2006 LOC PRIM OSTEOARTH-HAND [M19.049] 10/17/2005 Other tenosynovitis of hand and wrist [M65.849,*10/17/2005 02/24/2020 (more content not included)... Normal [facility] CNOVon 08-01-2024 CNOV Office Visit (CAWSTR ) MARY CRANE ([id number]) 1940 F TXT Date Time Provider Department 08/01/24 10:40 AM RASHEED BARRIOS During your visit today, we recorded the following information about you: Temperature Pulse Respiration Blood pressure 97.3 degrees 52/minute 18/minute 124/75 Weight 71.9 kg Rasheed Barrios MD 08/01/2024 11:30 AM Signed [facility] Cardiology ([facility] [address] [facility] [id number] OUTPATIENT VISIT DATE 08/01/2024 PRIMARY CARE PHYSICIAN: Atul Harvey [address] [place] [address] HISTORY OF PRESENT ILLNESS: Ms. Crane is a 83 year old woman with history of mild pulmonary hypertension, essential hypertension, and rheumatoid arthritis who presents to the office for routine follow-up. Patient has noticed some palpitations but no heart racing. She continues to do extremely well from a functional standpoint. She has some shortness of breath on exertion noticed mostly by her children. She has not had lightheadedness, dizziness, or syncope. She has not had symptoms concerning for congestive heart failure including PND, orthopnea, or lower extremity edema. PAST MEDICAL HISTORY Diagnosis Date Advance care planning 04/01/2022 Daughter Noemy Arrhythmia Benign neoplasm of colon Chronic kidney disease 02/09/2015 Diverticulosis of colon (without mention of hemorrhage) IFG (impaired fasting glucose) 03/2022 Incisional hernia 07/06/2015 Internal hemorrhoids without mention of complication Rheumatoid arthritis(714.0) Rheumatoid arthritis(714.0) Sicca syndrome (HCC) Unspecified essential hypertension PAST SURGICAL HISTORY Procedure Laterality Date CATARACT EXTRACTION HX 10/12/2004 COLONOSCOPY FLX DX W/COLLJ SPEC WHEN PFRMD 09/30/2005 Colonoscopy COLONOSCOPY FLX DX W/COLLJ SPEC WHEN PFRMD 07/28/2016 Colonoscopy COLONOSCOPY SCREENING 09/30/2022 multiple adenomatous polyps, repeat in 3 yrs ESOPHAGOGASTRODUODENOS COPY TRANSORAL DIAGNOSTIC 12/21/2014 EGD LAPAROSCOPY SURG CHOLECYSTECTOMY 02/20/2015 NEUROPLASTY AND/TRANSPOS MEDIAN NRV CARPAL TUNNE 02/12/2006 Carpal tunnel decomp Left NEUROPLASTY AND/TRANSPOS MEDIAN NRV CARPAL TUNNE 02/27/2006 Carpal tunnel decomp Right PAST SURGICAL HISTORY OF 10/12/2001 hemorrhoidectomy , bladder, and umbilical hernia repair PAST SURGICAL HISTORY OF 08/12/2006 bladder suspension REPAIR FIRST ABDOMINAL WALL HERNIA 07/06/2015 with mesh VAGINAL HYSTERECTOMY UTERUS 250 GM/< 10/12/1983 Hysterectomy, vaginal and bladder tacked up SOCIAL HISTORY Social History Tobacco Use Smoking status: Never Smokeless tobacco: Never Vaping Use Vaping status: Never Used Substance Use Topics Alcohol use: No Drug use: No FAMILY HISTORY Problem Relation Age of Onset Diabetes Mother Hypertension Mother Heart Father Diabetes Sister No Known Problems Sister No Known Problems Brother Heart Brother No Known Problems Brother ALLERGIES: ALLERGIES Allergen Reactions Floxin [Ofloxacin] Anaphylaxis Bumex [Bumetanide] Intolerance Hydrochlorothiazide Rash, Intolerance leucocytoclastic vasculitis Keflex [Cephalexin] Rash Naproxen Rash, Hives Norvasc [Amlodipine* Intolerance Penicillins Intolerance Rash Proctosol [Hydrocor* Intolerance Sulfa (Sulfonamide * Rash, GI Upset Colchicine Hives Minoxidil Other: See Comments facial hair MEDICATIONS: nystatin (NYSTOP) powder Apply 1 application to affected area four times a day as needed. Yeast infection/rash in groin and under breasts ketoconazole (NIZORAL) 2 % cream Apply to affected area two times a day. (Patient taking differently: Apply to affected area two times a day. PRN) levothyroxine (LEVOXYL) 25 mcg tablet Take 1 tablet by mouth once daily. Take on empty stomach. For Thyroid folic acid 1 mg tablet Take 2 tablets by mouth once daily. rosuvastatin (CRESTOR) 10 mg tablet Take 1 tablet by mouth once daily. triamcinolone acetonide (KENALOG) 0.1 % cream Apply 1 application to affected area two times a day as needed (rash). Apply sparingly to area for rash/itching. amLODIPine (NORVASC) 2.5 mg tablet Take 1 tablet by mouth once daily. allopurinol (ZYLOPRIM) 100 mg tablet Take 1 tablet by mouth once daily. atenolol (TENORMIN) 25 mg tablet Take 1 tablet by mouth two times a day. Cholecalciferol, Vitamin D3, 50 mcg (2,000 unit) cap Take 1 capsule by mouth once daily. dicyclomine (BENTYL) 10 mg capsule Take 1 capsule by mouth before meals and at bedtime. For diarrhea or abdominal cramping furosemide (LASIX) 40 mg tablet Take 1 tablet by mouth once daily. losartan (COZAAR) 100 mg tablet Take 1 tablet by mouth once daily. potassium chloride ER (KLOR-CON M10) 10 mEq tablet Take 1 (more content not included)... Normal [facility] ECG COMPLETEon 08-01-2024 Atrial Rate 66 BPM [facility] Calculated R [place] 2 degrees [facility] Calculated T [place] 21 degrees [facility] QRS Duration 80 ms [facility] QT Interval 422 ms [facility] QTC Calculation (Bazett) 442 ms [facility] Ventricular Rate 66 BPM [facility] SINUS RHYTHM 2ND DEGREE AV BLOCK (MOBITZ I) NONSPECIFIC ST AND T WAVE ABNORMALITY ABNORMAL ECG Confirmed by VON BURNS DO ([id number]) on 08/01/2024 2:44:29 PM [facility] NAME : MARY CRANE PID : [id number] : 1940 Gender : Female Race : ORD : Procedure Date : Aug 01 2024 10:43:57 Edit Date : Aug 01 2024 14:44:54 Diagnosis: SINUS RHYTHM 2ND DEGREE AV BLOCK (MOBITZ I) NONSPECIFIC ST AND T WAVE ABNORMALITY ABNORMAL ECG Confirmed by VON BURNS DO ([id number]) on 08/01/2024 2:44:29 PM Test Reason : Location : 136 : [place] Overread By : VON BURNS DO Edited By : VON BURNS DO Referred By : RASHEED BARRIOS Acquired by : Christel Waite, [facility] [id number] 08-01-2024 ECG01 Ventricular Rate : 6 6 BPM Atrial Rate : 66 BPM QRS Duration : 80 ms Q-T Interval : 422 ms QTC Calculation(Bazett) : 442 ms Calculated R [place] : 2 degrees Calculated T [place] : 21 degrees SINUS RHYTHM 2ND DEGREE AV BLOCK (MOBITZ I) NONSPECIFIC ST AND T WAVE ABNORMALITY ABNORMAL ECG Confirmed by VON BURNS DO ([id number]) on 08/01/2024 2:44:29 PM NAME : MARY CRANE PID : [id number] : 1940 Gender : Female Race : ORD : Procedure Date : Aug 01 2024 10:43:57 Edit Date : Aug 01 2024 14:44:54 Diagnosis: SINUS RHYTHM 2ND DEGREE AV BLOCK (MOBITZ I) NONSPECIFIC ST AND T WAVE ABNORMALITY ABNORMAL ECG Confirmed by VON BURNS DO ([id number]) on 08/01/2024 2:44:29 PM Test Reason : Location : 136 : [place] Overread By : VON BURNS DO Edited By : VON BURNS DO Referred By : RASHEED BARRIOS Acquired by : Christel Waite Normal [facility] CBC W/Diff, Automatedon 09-2 Absolute Lymph 2.13 X10 3/uL Normal 0.83-4.51 [facility] Comment on above: Performed By: #### L 100.0100, L500.4050 #### [facility] [address] [place], [address] Absolute Neut 4.3 X10 3/uL Normal 2.0-7.7 [facility] Comment on above: Performed By: #### L 100.0100, L500.4050 #### [facility] [address] [place], [address] Basophils/100 WBC (Bld) 0.9 % Normal 0-1 [facility] Comment on above: Performed By: #### L 100.0100, L500.4050 #### [facility] [address] [place], [address] Eosinophils/100 WBC (Bld) 2.4 % Normal 0-5 [facility] Comment on above: Performed By: #### L 100.0100, L500.4050 #### [facility] [address] [place], [address] Erythrocyte distribution width (RBC) [Ratio] 13.1 % Normal 11.6-14.6 [facility] Comment on above: Performed By: #### L 100.0100, L500.4050 #### [facility] [address] [place], [address] Hematocrit (Bld) [Volume fraction] 39.9 % Normal 37-47 [facility] Comment on above: Performed By: #### L 100.0100, L500.4050 #### [facility] [address] [place], [address] Hemoglobin (Bld) [Mass/Vol] 12.6 g/dL Normal 12.0-15.0 [facility] Comment on above: Performed By: #### L 100.0100, L500.4050 #### [facility] [address] [place], [address] IG% 0.300 Normal 0.0-0.9 [facility] Comment on above: Result Comment: IG% - Immature Granulocytes (promyelocytes, myelocytes and metamyelocytes) > 1% indicates that a LEFT SHIFT is Present. Performed By: #### L 100.0100, L500.4050 #### [facility] [address] [place], [address] Lymphocytes/100 WBC (Bld) 28.7 % Normal 19-41 [facility] Comment on above: Performed By: #### L 100.0100, L500.4050 #### [facility] [address] [place], [address] MCH (RBC) [Entitic mass] 29.2 pg Normal 27.0-32.0 [facility] Comment on above: Performed By: #### L 100.0100, L500.4050 #### [facility] [address] [place], [address] MCHC (RBC) [Mass/Vol] 31.6 g/dL Low 32-36 [facility] Comment on above: Performed By: #### L 100.0100, L500.4050 #### [facility] [address] [place], [address] MCV (RBC) [Entitic vol] 92.6 fL Normal 81-99 [facility] Comment on above: Performed By: #### L 100.0100, L500.4050 #### [facility] [address] [place], [address] Monocytes/100 WBC (Bld) 9.6 % Normal 0-10 [facility] Comment on above: Performed By: #### L 100.0100, L500.4050 #### [facility] [address] [place], [address] Neutrophils/100 WBC (Bld) 58.1 % Normal 47-70 [facility] Comment on above: Performed By: #### L 100.0100, L500.4050 #### [facility] [address] [place], [address] Nucleated RBC (Bld) [#/Vol] 0 10*3/uL Normal 0-5 [facility] Comment on above: Performed By: #### L 100.0100, L500.4050 #### [facility] [address] [place], [address] Platelet mean volume (Bld) [Entitic vol] 11.8 fL Normal 6.2-12.0 [facility] Comment on above: Performed By: #### L 100.0100, L500.4050 #### [facility] [address] [place], [address] Platelets (Bld) [#/Vol] 147 10*3/uL Low 150-450 [facility] Comment on above: Performed By: #### L 100.0100, L500.4050 #### [facility] [address] [place], [address] RBC (Bld) [#/Vol] 4.31 10*6/uL Normal 4.2-5.4 [facility] Comment on above: Performed By: #### L 100.0100, L500.4050 #### [facility] [address] [place], [address] RDW SD 44.6 fl High 35.1-43.9 [facility] Comment on above: Performed By: #### L 100.0100, L500.4050 #### [facility] [address] [place], [address] WBC (Bld) [#/Vol] 7.4 10*3/uL Normal 4.4-11.0 [facility] Comment on above: Performed By: #### L 100.0100, L500.4050 #### [facility] [address] [place], [address] Comprehensive Metabolic Prof ilon 07-04-2024 Albumin [Mass/Vol] 3.4 g/dL Normal 3.2-5.0 [facility] Comment on above: Performed By: #### L 100.0100, L500.4050 #### [facility] [address] [place], [address] Albumin/Globulin [Mass ratio] 0.7 {ratio} Low 0.9-2.4 [facility] Comment on above: Performed By: #### L 100.0100, L500.4050 #### [facility] [address] [place], [address] ALK P 101 U/L Normal 45-117 [facility] Comment on above: Performed By: #### L 100.0100, L500.4050 #### [facility] [address] [place], [address] ALT [Catalytic activity/Vol] 34 U/L Normal 13-56 [facility] Comment on above: Performed By: #### L 100.0100, L500.4050 #### [facility] [address] [place], [address] AST [Catalytic activity/Vol] 37 U/L Normal 15-37 [facility] Comment on above: Performed By: #### L 100.0100, L500.4050 #### [facility] [address] [place], [address] Bilirubin [Mass/Vol] 1.00 mg/dL Normal 0.20-1.00 [facility] Comment on above: Result Comment: For patients on eltrombopag therapy, use of Dimension [place] TBIL is not recommended. Performed By: #### L 100.0100, L500.4050 #### [facility] [address] [place], [address] BUN/CRE 15.2 RATIO Normal 10-20 [facility] Comment on above: Performed By: #### L 100.0100, L500.4050 #### [facility] [address] [place], [address] CA,Total 9.8 mg/dL Normal 8.5-10.1 [facility] Comment on above: Performed By: #### L 100.0100, L500.4050 #### [facility] [address] [place], [address] Chloride [Moles/Vol] 106 mmol/L Normal 98-107 [facility] Comment on above: Performed By: #### L 100.0100, L500.4050 #### [facility] [address] [place], [address] CO2 [Moles/Vol] 25.0 mmol/L Normal 21.0-32.0 [facility] Comment on above: Performed By: #### L 100.0100, L500.4050 #### [facility] [address] [place], [address] Creatinine [Mass/Vol] 1.05 mg/dL High 0.55-1.02 [facility] Comment on above: Result Comment: The validity of the calculated GFR GFRAA in patients over 70 years has not been determined. Clinical correlation is essential. Performed By: #### L 100.0100, L500.4050 #### [facility] [address] [place], [address] EST GFR - AA 64 mL/min Normal >60 [facility] Comment on above: Result Comment: Afri can [place]aur[place] GFR Calc Performed By: #### L 100.0100, L500.4050 #### [facility] [address] [place], [address] GAP 8 Normal 5-15 [facility] Comment on above: Performed By: #### L 100.0100, L500.4050 #### [facility] [address] [place], [address] GFR/1.73 sq M.predicted among non-blacks MDRD (S/P/Bld) [Vol rate/Area] 53 mL/min/{1.73_m2} Low >60 [facility] Comment on above: Result Comment: Non- GFR Calc Performed By: #### L 100.0100, L500.4050 #### [facility] [address] [place], [address] Globulin (S) [Mass/Vol] 4.7 g/dL High 2.2-4.2 [facility] Comment on above: Performed By: #### L 100.0100, L500.4050 #### [facility] [address] [place], [address] Glucose [Mass/Vol] 121 mg/dL High 74-106 [facility] Comment on above: Result Comment: Fast ing Glucose result from 100 to 125 mg/dL suggests IMPAIRED HOMEOSTASIS per A.D.A. criteria. Performed By: #### L 100.0100, L500.4050 #### [facility] [address] [place], [address] Potassium [Moles/Vol] 3.7 mmol/L Normal 3.5-5.1 [facility] Comment on above: Performed By: #### L 100.0100, L500.4050 #### [facility] [address] [place], [address] Sodium [Moles/Vol] 139 mmol/L Normal 136-145 [facility] Comment on above: Performed By: #### L 100.0100, L500.4050 #### [facility] [address] [place], [address] T PROT 8.1 g/dL Normal 6.4-8.2 [facility] Comment on above: Performed By: #### L 100.0100, L500.4050 #### [facility] [address] [place], [address] Urea nitrogen [Mass/Vol] 16 mg/dL Normal 7-18 [facility] Comment on above: Performed By: #### L 100.0100, L500.4050 #### [facility] [address] [place], [address] Uric Acidon 07-04-2024 URIC 5.3 mg/dL Normal 2.6-6.0 [facility] Comment on above: Result Comment: The drugs N-Acetylcysteine and Metamizole may falsely depress this assay. Performed By: #### L 100.0100, L500.4050 #### [facility] [address] [place], [address] US Abdomen RUQon 05-26-2024 IMPRESSION: Incidental right renal cyst Fatty infiltration of the liver Otherwise normal sonographic appearance of the right upper quadrant. Public Health Analyst: FRANCIS Transcribe Date/Time: May 26 2024 2:10P Dictated by : WALLACE MUÑOZ MD This examination was interpreted and the report reviewed and electronically signed by: WALLACE MUÑOZ MD on May 26 2024 2:12PM [facility] OF RADIOLOGY * * *Final Report* * * DATE OF EXAM: May 26 2024 10:00AM WRU 1032 - US ABD RIGHT UPPER QUADRANT / PROCEDURE REASON: Fatty liver * * * * Physician Interpretation * * * * EXAMINATION: RIGHT UPPER QUADRANT ULTRASOUND CLINICAL HISTORY: Fatty liver TECHNIQUE: Sonography of the right upper quadrant was performed. Images were obtained and stored in a permanent archive. MQ: URUQ_2 COMPARISON: Ultrasound of 02/23/2024 RESULT: Pancreas: Normal sonographic appearance. Portions obscured: tail Liver: Echotexture: Normal, homogeneous. Echogenicity: Diffusely increased echogenicity and increased attenuation of sound is consistent with fatty infiltration Surface contour: Smooth Lesions: None. Biliary: No intrahepatic biliary duct dilation. CBD: 0.4 cm at the hilum. Gallbladder: Prior cholecystectomy Right Kidney: No hydronephrosis. Incidental upper pole right renal cyst of 1.8 cm Ascites: None. DIVISION OF RADIOLOGY Provider, [facility] - 05/26/2024 * * *Final Report* * * DATE OF EXAM: May 26 2024 10:00AM WRU 1032 - US ABD RIGHT UPPER QUADRANT / PROCEDURE REASON: Fatty liver * * * * Physician Interpretation * * * * EXAMINATION: RIGHT UPPER QUADRANT ULTRASOUND CLINICAL HISTORY: Fatty liver TECHNIQUE: Sonography of the right upper quadrant was performed. Images were obtained and stored in a permanent archive. MQ: URUQ_2 COMPARISON: Ultrasound of 02/23/2024 RESULT: Pancreas: Normal sonographic appearance. Portions obscured: tail Liver: Echotexture: Normal, homogeneous. Echogenicity: Diffusely increased echogenicity and increased attenuation of sound is consistent with fatty infiltration Surface contour: Smooth Lesions: None. Biliary: No intrahepatic biliary duct dilation. CBD: 0.4 cm at the hilum. Gallbladder: Prior cholecystectomy Right Kidney: No hydronephrosis. Incidental upper pole right renal cyst of 1.8 cm Ascites: None. IMPRESSION IMPRESSION: Incidental right renal cyst Fatty infiltration of the liver Otherwise normal sonographic appearance of the right upper quadrant. Public Health Analyst: [facility] Transcribe Date/Time: May 26 2024 2:10P Dictated by : WALLACE MUÑOZ MD This examination was interpreted and the report reviewed and electronically signed by: WALLACE MUÑOZ MD on May 26 2024 2:12PM EST [facility] Radiology Study observation (narrative) [facility] US Abdomen RUQOrdered By: Cc f Provider on 05-26-2024 [facility] No Panel InformationOrdered By: Ccf Provider on 02-23-2024 Interpretation and review of laboratory results Abnormal [facility] Radiology Result ACTIONABLE Abnormal [facility] Comment on above: This report contains an incidental or actionable finding. This finding may be a new finding separate from the reason your provider ordered the imaging test or it may be an already known finding that needs additional or continued follow-up. Because of this incidental or actionable finding, you may need another test (imaging or a different type of test). Please contact your provider for the next steps. [facility] No Panel Informationon 02-22 IMPRESSION: 1. Hepatic steatosis. 2. 2.6 cm indeterminant hyperechoic splenic lesion though statistically likely a hemangioma. Given this was not definitively identified on prior studies, follow-up ultrasound in 3 months is advised to document stability. 3. Mild renal parenchymal thinning. ACTIONABLE RESULT: FOLLOW-UP Acuity: Actionable Findings: Lymphatic System Routing Code: Lymph_1 Recommendation: Unlisted Recommendation (see report) Time Frame: Additional evaluation as described in the impression COMMUNICATION: Results will be communicated with the ordering provider via [employer] staff message or phone message by [employer] within 2 business days of report finalization. --END OF FINDING-- Public Health Analyst: FRANCIS Transcribe Date/Time: Feb 23 2024 8:55A Dictated by : NORA BROWN MD This examination was interpreted and the report reviewed and electronically signed by: NORA BROWN MD on Feb 23 2024 9:01AM EST DIVISION OF RADIOLOGY US ABD SPLEEN - [id number] [id number] * * *Final Report* * * DATE OF EXAM: Feb 23 2024 8:17AM WRU 1232 - US ABD SPLEEN -NB / PROCEDURE REASON: Elevated LFTs * * * * Physician Interpretation * * * * EXAMINATION: RIGHT UPPER QUADRANT AND SPLEEN ULTRASOUND CLINICAL HISTORY: Elevated liver function tests TECHNIQUE: Sonography of the right upper quadrant and spleen was performed. Images were obtained and stored in a permanent archive and interpreted remotely. MQ: URUQ_2 COMPARISON: Ultrasound dated October 01, 2022 RESULT: Pancreas: Normal sonographic appearance. Portions obscured: tail Liver: Echotexture: Coarse Echogenicity: Increased Surface contour: Smooth Lesions: None. Biliary: No intrahepatic biliary duct dilation. CBD: 0.5 cm at the hilum. Gallbladder: Prior cholecystectomy. Right Kidney: Measures 8.3 cm in longitudinal dimension. Normal cortical echogenicity. Mild parenchymal thinning. No hydronephrosis. Spleen: Normal in size measuring 11.3 cm in craniocaudad dimension. 2.6 cm hyperechoic indeterminant upper pole splenic lesion, not definitively identified on prior study. Left kidney: Measures 10.6 cm in longitudinal dimension. Normal cortical echogenicity. Mild parenchymal thinning. No hydronephrosis. 1.8 cm parapelvic cyst. Ascites: None. DIVISION OF RADIOLOGY Provider, [facility] - 02/23/2024 * * *Final Report* * * DATE OF EXAM: Feb 23 2024 8:17AM [facility] 1232 - US ABD SPLEEN -NB / PROCEDURE REASON: Elevated LFTs * * * * Physician Interpretation * * * * EXAMINATION: RIGHT UPPER QUADRANT AND SPLEEN ULTRASOUND CLINICAL HISTORY: Elevated liver function tests TECHNIQUE: Sonography of the right upper quadrant and spleen was performed. Images were obtained and stored in a permanent archive and interpreted remotely. MQ: URUQ_2 COMPARISON: Ultrasound dated October 01, 2022 RESULT: Pancreas: Normal sonographic appearance. Portions obscured: tail Liver: Echotexture: Coarse Echogenicity: Increased Surface contour: Smooth Lesions: None. Biliary: No intrahepatic biliary duct dilation. CBD: 0.5 cm at the hilum. Gallbladder: Prior cholecystectomy. Right Kidney: Measures 8.3 cm in longitudinal dimension. Normal cortical echogenicity. Mild parenchymal thinning. No hydronephrosis. Spleen: Normal in size measuring 11.3 cm in craniocaudad dimension. 2.6 cm hyperechoic indeterminant upper pole splenic lesion, not definitively identified on prior study. Left kidney: Measures 10.6 cm in longitudinal dimension. Normal cortical echogenicity. Mild parenchymal thinning. No hydronephrosis. 1.8 cm parapelvic cyst. Ascites: None. IMPRESSION IMPRESSION: 1. Hepatic steatosis. 2. 2.6 cm indeterminant hyperechoic splenic lesion though statistically likely a hemangioma. Given this was not definitively identified on prior studies, follow-up ultrasound in 3 months is advised to document stability. 3. Mild renal parenchymal thinning. ACTIONABLE RESULT: FOLLOW-UP Acuity: Actionable Findings: Lymphatic System Routing Code: Lymph_1 Recommendation: Unlisted Recommendation (see report) Time Frame: Additional evaluation as described in the impression COMMUNICATION: Results will be communicated with the ordering provider via [employer] staff message or phone message by [facility] [employer] within 2 business days of report finalization. --END OF FINDING-- Public Health Analyst: PSCB Transcribe Date/Time: Feb 23 2024 8:55A Dictated by : NORA BROWN MD This examination was interpreted and the report reviewed and electronically signed by: NORA BROWN MD on Feb 23 2024 9:01AM EST [facility] Radiology Study observation (narrative) [facility] US Abdomen RUQon 02-23-2024 * * *Final Report* * * DATE OF EXAM: Feb 23 2024 8:17AM WRU 1032 - US ABD RIGHT UPPER QUADRANT / PROCEDURE REASON: Elevated LFTs * * * * Physician Interpretation * * * * EXAMINATION: RIGHT UPPER QUADRANT AND SPLEEN ULTRASOUND CLINICAL HISTORY: Elevated liver function tests TECHNIQUE: Sonography of the right upper quadrant and spleen was performed. Images were obtained and stored in a permanent archive and interpreted remotely. MQ: URUQ_2 COMPARISON: Ultrasound dated October 01, 2022 RESULT: Pancreas: Normal sonographic appearance. Portions obscured: tail Liver: Echotexture: Coarse Echogenicity: Increased Surface contour: Smooth Lesions: None. Biliary: No intrahepatic biliary duct dilation. CBD: 0.5 cm at the hilum. Gallbladder: Prior cholecystectomy. Right Kidney: Measures 8.3 cm in longitudinal dimension. Normal cortical echogenicity. Mild parenchymal thinning. No hydronephrosis. Spleen: Normal in size measuring 11.3 cm in craniocaudad dimension. 2.6 cm hyperechoic indeterminant upper pole splenic lesion, not definitively identified on prior study. Left kidney: Measures 10.6 cm in longitudinal dimension. Normal cortical echogenicity. Mild parenchymal thinning. No hydronephrosis. 1.8 cm parapelvic cyst. Ascites: None. DIVISION OF RADIOLOGY Provider, [facility] - 02/23/2024 * * *Final Report* * * DATE OF EXAM: Feb 23 2024 8:17AM WRU 1032 - US ABD RIGHT UPPER QUADRANT / PROCEDURE REASON: Elevated LFTs * * * * Physician Interpretation * * * * EXAMINATION: RIGHT UPPER QUADRANT AND SPLEEN ULTRASOUND CLINICAL HISTORY: Elevated liver function tests TECHNIQUE: Sonography of the right upper quadrant and spleen was performed. Images were obtained and stored in a permanent archive and interpreted remotely. MQ: URUQ_2 COMPARISON: Ultrasound dated October 01, 2022 RESULT: Pancreas: Normal sonographic appearance. Portions obscured: tail Liver: Echotexture: Coarse Echogenicity: Increased Surface contour: Smooth Lesions: None. Biliary: No intrahepatic biliary duct dilation. CBD: 0.5 cm at the hilum. Gallbladder: Prior cholecystectomy. Right Kidney: Measures 8.3 cm in longitudinal dimension. Normal cortical echogenicity. Mild parenchymal thinning. No hydronephrosis. Spleen: Normal in size measuring 11.3 cm in craniocaudad dimension. 2.6 cm hyperechoic indeterminant upper pole splenic lesion, not definitively identified on prior study. Left kidney: Measures 10.6 cm in longitudinal dimension. Normal cortical echogenicity. Mild parenchymal thinning. No hydronephrosis. 1.8 cm parapelvic cyst. Ascites: None. IMPRESSION IMPRESSION: 1. Hepatic steatosis. 2. 2.6 cm indeterminant hyperechoic splenic lesion though statistically likely a hemangioma. Given this was not definitively identified on prior studies, follow-up ultrasound in 3 months is advised to document stability. 3. Mild renal parenchymal thinning. ACTIONABLE RESULT: FOLLOW-UP Acuity: Actionable Findings: Lymphatic System Routing Code: Lymph_1 Recommendation: Unlisted Recommendation (see report) Time Frame: Additional evaluation as described in the impression COMMUNICATION: Results will be communicated with the ordering provider via [employer] staff message or phone message by [facility] [employer] [facility] within 2 business days of report finalization. --END OF FINDING-- Public Health Analyst: FRANCIS Transcribe Date/Time: Feb 23 2024 8:55A Dictated by : NORA BROWN MD This examination was interpreted and the report reviewed and electronically signed by: NORA BROWN MD on Feb 23 2024 9:01AM EST [facility] Radiology Study observation (narrative) [facility] Hepatic function 2000 panelo n 02-17-2024 Albumin [Mass/Vol] 3.9 g/dL 3.9 - 4.9 g/dL [facility] ALP [Catalytic activity/Vol] 104 U/L 34 - 123 U/L [facility] ALT [Catalytic activity/Vol] 42 U/L High 7 - 38 U/L [facility] AST [Catalytic activity/Vol] 52 U/L High 13 - 35 U/L [facility] Bilirubin [Mass/Vol] 0.8 mg/dL 0.2 - 1 .3 mg/dL [facility] Bilirubin.conjugated [Mass/Vol] 0.2 mg/dL High NINF - 0.2 mg/dL [facility] Interpretation and review of laboratory results Abnormal [facility] Protein [Mass/Vol] 7.8 g/dL 6.3 - 8.0 g/dL [facility] No Panel Informationon 02-16 Interpretation and review of laboratory results Normal [facility] T3, FREEon 02-17-2024 Free T3 [Mass/Vol] 3.2 pg/mL 2.3 - 4.1 pg/mL [facility] T4 FREE/FREE THYROXINEon Free T4 [Mass/Vol] 1.2 ng/dL 0.9 - 1.7 ng/dL [facility] THYROID STIMULATING HORMONEo n 02-17-2024 TSH Qn 4.260 m[IU]/L High [facility] TSH Qnon 02-17-2024 Interpretation and review of laboratory results Abnormal [facility] Absolute lymphocyte countOrd ered By: Kimmie Hussein on 01-04-2024 Lymphocytes Auto (Unsp spec) [#/Vol] 1.99 10*3/uL 0.83-4.51 [facility] Automated lymphocyte count a s percentage of total leukocytesOrdered By: Kimmie Hussein on 01-04-2024 Lymphocytes/100 WBC Auto (Unsp spec) 37.9 % 19-41 [facility] Basophil percentageOrdered B y: Kimmie Hussein on 01-04-2024 Basophils/100 WBC (Bld) 0.8 % 0-1 [facility] Bilirubin [Mass/Vol] 1.00 mg/dL 0.20-1.00 [facility] Comment on above: For patients on eltr ombopag therapy, use of Dimension [place] TBIL is not recommended. Chloride [Moles/Vol] 106 mmol/L 98-107 [facility] Eosinophils/100 WBC (Bld) 2.5 % 0-5 [facility] Glucose [Mass/Vol] 124 mg/dL 74-106 [facility] Comment on above: Fasting Glucose resu lt from 100 to 125 mg/dL suggests IMPAIRED HOMEOSTASIS per A.D.A. criteria. Hemoglobin (Bld) [Mass/Vol] 12.3 g/dL 12.0-15.0 [facility] Monocytes/100 WBC (Bld) 8.6 % 0-10 [facility] Neutrophils (Bld) [#/Vol] 2.6 10*3/uL 2.0-7.7 [facility] Neutrophils/100 WBC (Bld) 49.8 % 47-70 [facility] Potassium [Moles/Vol] 4.3 mmol/L 3.5-5.1 [facility] Protein [Mass/Vol] 8.0 g/dL 6.4-8.2 [facility] Sodium [Moles/Vol] 141 mmol/L 136-145 [facility] WBC (Bld) [#/Vol] 5.3 10*3/uL 4.4-11.0 [facility] Determination of erythrocyte mean corpuscular volume (MCV)Ordered By: Kimmie Hussein on 01-04-2024 MCV (RBC) [Entitic vol] 93.8 fL 81-99 [facility] Erythrocyte distribution wid th ratioOrdered By: Kimmie Hussein on 01-04-2024 Erythrocyte distribution width (RBC) [Ratio] 13.5 % 11.6-14.6 [facility] Erythrocyte distribution wid th standard deviationOrdered By: Kimmie Hussein on 01-04-2024 Erythrocyte distribution width (RBC) [Entitic vol] 46.3 fL 35.1-43.9 [facility] Hematocrit Auto (Bld) [Volum e fraction]Ordered By: Kimmie Hussein on 01-04-2024 Hematocrit (Bld) [Volume fraction] 37.9 % 37-47 [facility] Immature granulocytes/100 WB C Auto (Bld)Ordered By: Kimmie Hussein on 01-04-2024 Immature granulocytes/100 WBC (Bld) 0.400 % 0.0-0.9 [facility] Comment on above: IG% - Immature Granu locytes (promyelocytes, myelocytes and metamyelocytes) > 1% indicates that a LEFT SHIFT is Present. Laboratory - Chemistry and C hemistry - challengeOrdered By: Kimmie Hussein on 01-04-2024 Albumin/Globulin [Mass ratio] 0.7 {ratio} 0.9-2.4 [facility] ALP [Catalytic activity/Vol] 101 U/L 45-117 [facility] ALT [Catalytic activity/Vol] 45 U/L 13-56 [facility] CO2 [Moles/Vol] 29.0 mmol/L 21.0-32.0 [facility] Globulin (S) [Mass/Vol] 4.6 g/dL 2.2-4.2 [facility] Urea nitrogen/Creatinine [Mass ratio] 15.4 mg/mg 10-20 [facility] Laboratory - Hematology and Cell countsOrdered By: Kimmie Hussein on 01-04-2024 MCH (RBC) [Entitic mass] 30.4 pg 27.0-32.0 [facility] MCHC (RBC) [Mass/Vol] 32.5 g/dL 32-36 [facility] Nucleated RBC/100 WBC (Bld) [Ratio] 0 % 0-5 [facility] Platelet mean volume (Bld) [Entitic vol] 10.6 fL 6.2-12.0 [facility] Platelets (Bld) [#/Vol] 141 10*3/uL 150-450 [facility] No Panel InformationOrdered By: Kimmie Hussein on 01-04-2024 Estimated GFR (MDRD) Amer 65 mL/min >60 [facility] Comment on above: GFR Calc Estimated GFR (MDRD) Non-Af Amer 54 mL/min >60 [facility] Comment on above: Non- GFR Calc RBC Auto (Bld) [#/Vol]Ordere d By: Kimmie Hussein on 01-04-2024 RBC (Bld) [#/Vol] 4.04 10*6/uL 4.2-5.4 [facility] Serum or plasma calcium shell urement (mass/volume)Ordered By: Kimmie Hussein on 01-04-2024 Calcium [Mass/Vol] 9.1 mg/dL 8.5-10.1 [facility] Serum or plasma creatinine m easurement (mass/volume)Ordered By: Kimmie Hussein on 01-04-2024 Creatinine [Mass/Vol] 1.04 mg/dL 0.55-1.02 [facility] Comment on above: The validity of the calculated GFR & GFRAA in patients over 70 years has not been determined. Clinical correlation is essential. Serum or plasma urea nitroge n measurement (mass/volume)Ordered By: Kimmie Hussein on 01-04-2024 Urea nitrogen [Mass/Vol] 16 mg/dL 18 [facility] Serum or plasma uric acid me asurement (mass/volume)Ordered By: Kimmie [facility] on 01-04-2024 Urate [Mass/Vol] 5.3 mg/dL 2.6-6.0 [facility] Comment on above: The drugs N-Acetylcy steine and Metamizole may falsely depress this assay. Thin prep Papanicolaou smear with manual screeningOrdered By: Kimmie Hussein on 01-04-2024 Thin prep Papanicolaou smear with manual screening 3.4 g/dL 3.2-5.0 [facility] Thin prep Papanicolaou smear with manual screening 43 U/L 15-37 [facility] Thin prep Papanicolaou smear with manual screening 6 5-15 [facility] XR Chest PA and Lateralon IMPRESSION: No acute radiographic abnormality in the lungs. Cardiomegaly. Public Health Analyst: PSCB Transcribe Date/Time: Oct 29 2023 11:23A Dictated by : JOJO JEFFREY MD This examination was interpreted and the report reviewed and electronically signed by: JOJO JEFFREY MD on Oct 29 2023 11:24AM [facility] DIVISION OF RADIOLOGY * * *Final Report* * * DATE OF EXAM: Oct 29 2023 11:08AM WOX [id number] - XR CHEST 2V FRONTAL/LAT / PROCEDURE REASON: Productive cough * * * * Physician Interpretation * * * * EXAMINATION: CHEST RADIOGRAPH (2 VIEW FRONTAL & LATERAL) CLINICAL HISTORY: Productive cough MQ: XC2_6 EXAM DATE/TIME: 10/29/2023 11:08 AM COMPARISON: Chest x-ray on 05/30/2020 RESULT: Lines, tubes, and devices: None. Lungs and pleura: No consolidation. No lung mass. No pleural effusion. No pneumothorax. Cardiomediastinal silhouette: There is cardiomegaly, with atherosclerotic calcifications in the thoracic aorta. Bones and soft tissues: The spine shows degenerative changes. DIVISION OF RADIOLOGY Provider, [facility] - 10/29/2023 * * *Final Report* * * DATE OF EXAM: Oct 29 2023 11:08AM WOX [id number] - XR CHEST 2V FRONTAL/LAT / PROCEDURE REASON: Productive cough * * * * Physician Interpretation * * * * EXAMINATION: CHEST RADIOGRAPH (2 VIEW FRONTAL & LATERAL) CLINICAL HISTORY: Productive cough MQ: XC2_6 EXAM DATE/TIME: 10/29/2023 11:08 AM COMPARISON: Chest x-ray on 05/30/2020 RESULT: Lines, tubes, and devices: None. Lungs and pleura: No consolidation. No lung mass. No pleural effusion. No pneumothorax. Cardiomediastinal silhouette: There is cardiomegaly, with atherosclerotic calcifications in the thoracic aorta. Bones and soft tissues: The spine shows degenerative changes. IMPRESSION IMPRESSION: No acute radiographic abnormality in the lungs. Cardiomegaly. Public Health Analyst: PSCB Transcribe Date/Time: Oct 29 2023 11:23A Dictated by : JOJO JEFFREY MD This examination was interpreted and the report reviewed and electronically signed by: JOJO JEFFREY MD on Oct 29 2023 11:24AM EST [facility] Radiology Study observation (narrative) [facility] XR Chest PA and LateralOrder ed By: Ccf Provider on 10-29-2023 [facility] Absolute lymphocyte countOrd ered By: Kimmie Hussein on 08-10-2023 Lymphocytes Auto (Unsp spec) [#/Vol] 1.98 10*3/uL 0.83-4.51 [facility] Basophil percentageOrdered B y: Kimmie Hussein on 08-10-2023 Basophils/100 WBC (Bld) 1.0 % 0-1 [facility] Bilirubin [Mass/Vol] 0.90 mg/dL 0.20-1.00 [facility] Comment on above: For patients on eltr ombopag therapy, use of Dimension [place] TBIL is not recommended. Chloride [Moles/Vol] 107 mmol/L 98-107 [facility] Eosinophils/100 WBC (Bld) 2.4 % 0-5 [facility] Glucose [Mass/Vol] 103 mg/dL 74-106 [facility] Comment on above: Fasting Glucose resu lt from 100 to 125 mg/dL suggests IMPAIRED HOMEOSTASIS per A.D.A. criteria. Neutrophils (Bld) [#/Vol] 3.6 10*3/uL 2.0-7.7 [facility] Neutrophils/100 WBC (Bld) 56.9 % 47-70 [facility] Potassium [Moles/Vol] 3.9 mmol/L 3.5-5.1 [facility] Protein [Mass/Vol] 8.1 g/dL 6.4-8.2 [facility] Sodium [Moles/Vol] 138 mmol/L 136-145 [facility] WBC (Bld) [#/Vol] 6.2 10*3/uL 4.4-11.0 [facility] Blood erythrocytes count (nu mber/volume)Ordered By: Kimmie Hussein on 08-10-2023 RBC (Bld) [#/Vol] 4.26 10*6/uL 4.2-5.4 [facility] Blood hemoglobin measurement (mass/volume)Ordered By: Kimmie Hussein on 08-10-2023 Hemoglobin (Bld) [Mass/Vol] 12.5 g/dL 12.0-15.0 [facility] Blood lymphocytes/100 leukoc ytesOrdered By: Kimmie Hussein on 08-10-2023 Lymphocytes/100 WBC (Bld) 31.7 % 19-41 [facility] Blood monocytes/100 leukocyt esOrdered By: Kimmie Hussein on 08-10-2023 Monocytes/100 WBC (Bld) 7.7 % 0-10 [facility] Blood platelet mean volumeOr dered By: Kimmie Hussein on 08-10-2023 Platelet mean volume (Bld) [Entitic vol] 11.6 fL 6.2-12.0 [facility] Determination of erythrocyte mean corpuscular volume (MCV)Ordered By: Kimmie Hussein on 08-10-2023 MCV (RBC) [Entitic vol] 93.9 fL 81-99 [facility] Hematocrit Auto (Bld) [Volum e fraction]Ordered By: Kimmie Hussein on 08-10-2023 Hematocrit (Bld) [Volume fraction] 40.0 % 37-47 [facility] Laboratory - Chemistry and C hemistry - challengeOrdered By: Kimmiedeborah Hussein on 08-10-2023 ALP [Catalytic activity/Vol] 109 U/L 45-117 [facility] ALT [Catalytic activity/Vol] 46 U/L 13-56 [facility] CO2 [Moles/Vol] 27.0 mmol/L 21.0-32.0 [facility] Globulin (S) [Mass/Vol] 4.7 g/dL 2.2-4.2 [facility] Urea nitrogen/Creatinine [Mass ratio] 14.0 mg/mg 10-20 [facility] Laboratory - Hematology and Cell countsOrdered By: Kimmie Hussein on 08-10-2023 Erythrocyte distribution width (RBC) [Entitic vol] 45.3 fL 35.1-43.9 [facility] Erythrocyte distribution width (RBC) [Ratio] 13.2 % 11.6-14.6 [facility] Immature granulocytes/100 WBC (Bld) 0.300 % 0.0-0.9 [facility] Comment on above: IG% - Immature Granu locytes (promyelocytes, myelocytes and metamyelocytes) > 1% indicates that a LEFT SHIFT is Present. MCH (RBC) [Entitic mass] 29.3 pg 27.0-32.0 [facility] Nucleated RBC/100 WBC (Bld) [Ratio] 0 % 0-5 [facility] MCHC Auto (RBC) [Mass/Vol]Or dered By: Kimmie Hussein on 08-10-2023 MCHC (RBC) [Mass/Vol] 31.3 g/dL 32-36 [facility] No Panel InformationOrdered By: Kimmie Hussein on 08-10-2023 Estimated GFR (MDRD) Amer 63 mL/min >60 [facility] Comment on above: GFR Calc Estimated GFR (MDRD) Non-Af Amer 52 mL/min >60 [facility] Comment on above: Non- GFR Calc Platelets bldOrdered By: Neena Hussein on 08-10-2023 Platelets (Bld) [#/Vol] 145 10*3/uL 150-450 [facility] Serum or plasma albumin shell urement (mass/volume)Ordered By: Kimmie Hussein on 08-10-2023 Albumin [Mass/Vol] 3.4 g/dL 3.2-5.0 [facility] Serum or plasma albumin/glob ulin mass ratioOrdered By: Kimmie Hussein on 08-10-2023 Albumin/Globulin [Mass ratio] 0.7 {ratio} 0.9-2.4 [facility] Serum or plasma calcium shell urement (mass/volume)Ordered By: Kimmie Hussein on 08-10-2023 Calcium [Mass/Vol] 9.1 mg/dL 8.5-10.1 [facility] Serum or plasma creatinine m easurement (mass/volume)Ordered By: Kimmie Hussein on 08-10-2023 Creatinine [Mass/Vol] 1.07 mg/dL 0.55-1.02 [facility] Comment on above: The validity of the calculated GFR & GFRAA in patients over 70 years has not been determined. Clinical correlation is essential. Serum or plasma urea nitroge n measurement (mass/volume)Ordered By: Kimmie Hussein on 08-10-2023 Urea nitrogen [Mass/Vol] 15 mg/dL 7-18 [facility] Serum or plasma uric acid me asurement (mass/volume)Ordered By: Kimmie Hussein on 08-10-2023 Urate [Mass/Vol] 4.9 mg/dL 2.6-6.0 [facility] Comment on above: The drugs N-Acetylcy steine and Metamizole may falsely depress this assay. Thin prep Papanicolaou smear with manual screeningOrdered By: Kimmie Hussein on 08-10-2023 Thin prep Papanicolaou smear with manual screening 43 U/L 15-37 [facility] Thin prep Papanicolaou smear with manual screening 4 5-15 [facility] CNPNon 04-17-2023 CNPN Telephone (LUANNE) GREGMARY Kenneth ([id number]) 1940 F TXT Date Time Provider Department 04/17/23 FATIMAH MANZANO During your visit today, we recorded the following information about you: Velma Lomas LPN 04/17/2023 1:05 PM Signed ----- Message from Fatimah Manzano APRN.GR[employer]ERY BAGGER sent at 04/17/2023 12:20 PM EDT ----- Please call the patient and report echo results revealed normal LV Function, EF 55%. There were no significant structure or valvular abnormalities identified on echocardiogram. Fatimah Manzano APRN.FELICIA Lomas LPN 04/17/2023 1:07 PM Signed Spoke to Chuck and informed her of Fatimah's response to Echo results. Patient voiced understanding. Velma Lomas LPN Allergies As of Date: 04/17/2023 Noted Allergy Reaction FLOXIN (OFLOXACIN) 09/10/2005 10 - Anaphylaxis BUMEX (BUMETANIDE) 09/10/2005 5 - Intolerance HYDROCHLOROTHIAZIDE 09/10/2005 2 - Rash 5 - Intolerance Comments: leucocytoclastic vasculitis KEFLEX (CEPHALEXIN) 09/10/2005 2 - Rash NAPROXEN 09/10/2005 2 - Rash 4 - Hives NORVASC (AMLODIPINE BESYLATE) 09/10/2005 5 - Intolerance PENICILLINS 09/10/2005 5 - Intolerance Comments: Rash PROCTOSOL (HYDROCORTISONE ACETATE)09/10/2005 5 - Intolerance SULFA (SULFONAMIDE ANTIBIOTICS) 09/10/2005 2 - Rash 8 - GI Upset COLCHICINE 10/17/2005 4 - Hives MINOXIDIL 03/24/2011 14 - Other: See Comments Comments: facial hair Date Reviewed: 04/13/2023 Reviewed by: Rasheed Barrios MD - Fully Assessed Reason for Visit: Results [95] Prescriptions as of 04/17/2023 - losartan (COZAAR) 100 mg tablet Take 1 tablet by mouth once daily. - rosuvastatin (CRESTOR) 10 mg tablet Take 1 tablet by mouth once daily. - atenolol (TENORMIN) 25 mg tablet Take 1 tablet by mouth twice daily. - amLODIPine (NORVASC) 5 mg tablet Take 1 tablet by mouth once daily. - potassium chloride ER (KLOR-CON M10) 10 mEq tablet Take 1 tablet by mouth twice daily. - Cholecalciferol, Vitamin D3, 50 mcg (2,000 unit) cap Take 1 capsule by mouth once daily. - cloNIDine HCl (CATAPRES) 0.2 mg tablet TAKE 1 TABLET BY MOUTH TWICE A DAY - allopurinol (ZYLOPRIM) 100 mg tablet Take 1 tablet by mouth once daily. - folic acid 1 mg tablet Take 2 tablets by mouth once daily. - lansoprazole (PREVACID) 30 mg capsule Take 1 capsule by mouth twice daily. 1/2 hour before meals. - dicyclomine (BENTYL) 10 mg capsule Take 1 capsule by mouth before meals and at bedtime. For diarrhea or abdominal cramping - furosemide (LASIX) 40 mg tablet Take 1 tablet by mouth once daily. - cyanocobalamin (VITAMIN B-12) 1,000 mcg tab Take 1,000 mcg by mouth once daily. - triamcinolone acetonide (KENALOG) 0.1 % cream Apply 1 application to affected area twice daily. On rash, Apply sparingly to area for rash/itching. - vit A/vit C/vit E/zinc/copper (OCUVITE PRESERVISION ORAL) Take by mouth twice daily. - nystatin (NYSTOP) powder Apply 1 application to affected area four times daily as needed. Yeast infection/rash in groin and under breasts - apremilast (OTEZLA) 30 mg tablet Take 30 mg by mouth twice daily. - hydrocortisone probutate 0.1 % crea Apply to affected area once daily as needed. - loratadine (CLARITIN) 10 mg tablet Take 10 mg by mouth once daily. Takes daily as needed - acetaminophen (TYLENOL) 325 mg tablet Take 650 mg by mouth every 6 hours as needed. Facility-Administered Medications as of 04/17/2023 - perflutren lipid microspheres 1.3 mL in NaCl (PF) 0.9% 10 mL injection (DEFINITY) - sodium chloride 0.9 % (flush) 10 mL (BD POSIFLUSH) - perflutren lipid microspheres 1.3 mL in NaCl (PF) 0.9% 10 mL injection (DEFINITY) - sodium chloride 0.9 % (flush) 10 mL (BD POSIFLUSH) Problem List As Of Date 04/17/2023 Noted Resolved Benign neoplasm of colon [D12.6] 09/30/2005 02/24/2020 DIVERTICULOSIS OF COLON W/O BLEED [K57.30] 09/30/2005 Internal hemorrhoids without mention of complic*09/30/2005 02/24/2020 CARPAL TUNNEL SYNDROME [G56.00] 10/17/2005 03/12/2006 LOC PRIM OSTEOARTH-HAND [M19.049] 10/17/2005 Other tenosynovitis of hand and wrist [M65.849,*10/17/2005 02/24/2020 Follow-up examination, following unspecified lindsay*02/26/2006 02/08/2015 Rheumatoid arthritis involving multiple sites w*02/27/2006 CARPAL TUNNEL SYNDROME [G56.00] 03/17/2006 HYPERTENSION NOS [I10] 05/30/2014 Sicca syndrome (HCC) [M35.00] 11/29/2021 Sialoadenitis [K11.20] 09/04/2008 02/24/2020 Gout [M10.9] 11/18/2010 Hypertension [I10] 12/18/2010 05/29/2016 Pulmonary hypertension [I27.20] 08/27/2011 Sjogren's syndrome [M35.00] 03/04/2013 Dysphagia, unspecified(787.20) [R13.10] 12/21/2014 12/21/2014 Esophageal reflux [K21.9] 12/21/2014 12/21/2014 Nausea alone [R11.0] 12/21/2014 12/21/2014 Chronic kidney disease [N18.9] 02/09/2015 02/24/2020 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 Normal [facility] ECHOon 04-17-2023 [facility] Absolute lymphocyte countOrd ered By: Dr. Hussein on 11-13-2022 Lymphocytes Auto (Unsp spec) [#/Vol] 2.43 10*3/uL 0.83-4.51 [facility] Basophil percentageOrdered B y: Dr. Hussein on 11-13-2022 Basophils/100 WBC (Bld) 0.6 % 0-1 [facility] Bilirubin [Mass/Vol] 0.80 mg/dL 0.20-1.00 [facility] Comment on above: For patients on eltr ombopag therapy, use of Dimension [place] TBIL is not recommended. Chloride [Moles/Vol] 107 mmol/L 98-107 [facility] Eosinophils/100 WBC (Bld) 1.2 % 0-5 [facility] Glucose [Mass/Vol] 93 mg/dL 74-106 [facility] Neutrophils (Bld) [#/Vol] 6.3 10*3/uL 2.0-7.7 [facility] Neutrophils/100 WBC (Bld) 63.8 % 47-70 [facility] Potassium [Moles/Vol] 3.3 mmol/L 3.5-5.1 [facility] Protein [Mass/Vol] 7.9 g/dL 6.4-8.2 [facility] Sodium [Moles/Vol] 142 mmol/L 136-145 [facility] WBC (Bld) [#/Vol] 9.9 10*3/uL 4.4-11.0 [facility] Blood erythrocytes count (nu mber/volume)Ordered By: Dr. Hussein on 11-13-2022 RBC (Bld) [#/Vol] 4.74 10*6/uL 4.2-5.4 [facility] Blood hemoglobin measurement (mass/volume)Ordered By: Dr. Hussein on 11-13-2022 Hemoglobin (Bld) [Mass/Vol] 13.8 g/dL 12.0-15.0 [facility] Blood lymphocytes/100 leukoc ytesOrdered By: Dr. Hussein on 11-13-2022 Lymphocytes/100 WBC (Bld) 24.5 % 19-41 [facility] Blood monocytes/100 leukocyt esOrdered By: Dr. Hussein on 11-13-2022 Monocytes/100 WBC (Bld) 9.0 % 0-10 [facility] Blood platelet mean volumeOr dered By: Dr. Hussein on 11-13-2022 Platelet mean volume (Bld) [Entitic vol] 10.7 fL 6.2-12.0 [facility] Determination of erythrocyte mean corpuscular volume (MCV)Ordered By: Dr. Hussein on 11-13-2022 MCV (RBC) [Entitic vol] 93.5 fL 81-99 [facility] Hematocrit Auto (Bld) [Volum e fraction]Ordered By: Dr. Hussein on 11-13-2022 Hematocrit (Bld) [Volume fraction] 44.3 % 37-47 [facility] Laboratory - Chemistry and C hemistry - challengeOrdered By: Dr. Hussein on 11-13-2022 ALP [Catalytic activity/Vol] 124 U/L 45-117 [facility] ALT [Catalytic activity/Vol] 68 U/L 13-56 [facility] CO2 [Moles/Vol] 28.0 mmol/L 21.0-32.0 [facility] Globulin (S) [Mass/Vol] 4.4 g/dL 2.2-4.2 [facility] Urea nitrogen/Creatinine [Mass ratio] 19.2 mg/mg 10-20 [facility] Laboratory - Hematology and Cell countsOrdered By: Dr. Hussein on 11-13-2022 Erythrocyte distribution width (RBC) [Entitic vol] 48.3 fL 35.1-43.9 [facility] Erythrocyte distribution width (RBC) [Ratio] 14.0 % 11.6-14.6 [facility] Immature granulocytes/100 WBC (Bld) 0.900 % 0.0-0.9 [facility] Comment on above: IG% - Immature Granu locytes (promyelocytes, myelocytes and metamyelocytes) > 1% indicates that a LEFT SHIFT is Present. MCH (RBC) [Entitic mass] 29.1 pg 27.0-32.0 [facility] Nucleated RBC/100 WBC (Bld) [Ratio] 0 % 0-5 [facility] Auto ([facility]BC) [Mass/Vol]Or dered By: Dr. Hussein on 11-13-2022 MCHC (RBC) [Mass/Vol] 31.2 g/dL 32-36 [facility] No Panel InformationOrdered By: Dr. Hussein on 11-13-2022 Estimated GFR (MDRD) Amer 65 mL/min >60 [facility] Comment on above: GFR Calc Estimated GFR (MDRD) Non-Af Amer 54 mL/min >60 [facility] Comment on above: Non- GFR Calc Platelets bldOrdered By: Dr. Hussein on 11-13-2022 Platelets (Bld) [#/Vol] 165 10*3/uL 150-450 [facility] Serum or plasma albumin shell urement (mass/volume)Ordered By: Dr. Hussein on 11-13-2022 Albumin [Mass/Vol] 3.5 g/dL 3.2-5.0 [facility] Serum or plasma albumin/glob ulin mass ratioOrdered By: Dr. Hussein on 11-13-2022 Albumin/Globulin [Mass ratio] 0.8 {ratio} 0.9-2.4 [facility] Serum or plasma calcium shell urement (mass/volume)Ordered By: Dr. Hussein on 11-13-2022 Calcium [Mass/Vol] 9.0 mg/dL 8.5-10.1 [facility] Serum or plasma creatinine m easurement (mass/volume)Ordered By: Dr. Hussein on 11-13-2022 Creatinine [Mass/Vol] 1.04 mg/dL 0.55-1.02 [facility] Comment on above: The validity of the calculated GFR & GFRAA in patients over 70 years has not been determined. Clinical correlation is essential. Serum or plasma urea nitroge n measurement (mass/volume)Ordered By: Dr. Hussein on 11-13-2022 Urea nitrogen [Mass/Vol] 20 mg/dL 7-18 [facility] Thin prep Papanicolaou smear with manual screeningOrdered By: Dr. Hussein on 11-13-2022 Thin prep Papanicolaou smear with manual screening 35 U/L 15-37 [facility] Thin prep Papanicolaou smear with manual screening 7 5-15 [facility] SURGICAL PATHOLOGYon Case Report Surgical Pathology Report Case: [id number] Authorizing Provider: Preet Daly MD Collected: 09/30/2022 09:51 AM Ordering Location: Ambulatory Surgery Received: 09/30/2022 11:47 AM Pathologist: Chino Valdez MD Specimens: A) - COLON POLYP, right colon polyps B) - HEPATIC FLEXURE POLYP C) - TRANSVERSE COLON POLYP D) - SIGMOID COLON POLYP [facility] FINAL DIAGNOSIS A. Colon, right polyps, biopsy: - Multiple fragments of tubular adenoma. B. Hepatic flexure polyp, biopsy: - Tubular adenoma. C. Transverse colon polyp, biopsy: - Hyperplastic polyp. D. Sigmoid colon polyp, biopsy: - Tubular adenoma. [facility] Gross Description A. COLON POLYP Received in formalin are multiple pieces of neumann, soft tissue aggregating to 1.7 x 0.3 x 0.2 cm. Totally submitted in one cassette. B. HEPATIC FLEXURE POLYP Received in formalin are multiple pieces of neumann, soft tissue aggregating to 1.5 x 0.3 x 0.2 cm. Totally submitted in one cassette. C. TRANSVERSE COLON POLYP Received in formalin is one piece of neumann, soft tissue measuring 0.4 x 0.2 x 0.2 cm. Totally submitted in one cassette. D. SIGMOID COLON POLYP Received in formalin is one piece of neumann, soft tissue measuring 0.5 x 0.4 x 0.2 cm. Totally submitted in one cassette. Gross examination performed at [facility], [address] [place] [address] TTN 09/30/2022 8:08 PM [facility] Performing Lab Diagnostic interpretation performed at [facility], [address] [address] CLIA# [id number] Back Up Worker: Chino Valdez M.D. [facility] No Panel Informationon 10-01 [facility] COLONOSCOPY SCREENINGon 09-12 [facility] WILLI SCREENINGon 07-17-2022 [facility] Absolute lymphocyte counton 05-28-2022 Lymphocytes Auto (Unsp spec) [#/Vol] 1.29 10*3/uL 0.83-4.51 [facility] Work Phone: Basophil percentageon 2021 Basophils/100 WBC (Bld) 1.1 % 0-1 [facility] Work Phone: Bilirubin [Mass/Vol] 0.80 mg/dL 0.20-1.00 [facility] Work Phone: Comment on above: For patients on eltr ombopag therapy, use of Dimension [place] TBIL is not recommended. Chloride [Moles/Vol] 107 mmol/L 98-107 [facility] Work Phone: Eosinophils/100 WBC (Bld) 2.4 % 0-5 [facility] Work Phone: Glucose [Mass/Vol] 115 mg/dL 74-106 [facility] Work Phone: Comment on above: Fasting Glucose resu lt from 100 to 125 mg/dL suggests IMPAIRED HOMEOSTASIS per A.D.A. criteria. Neutrophils (Bld) [#/Vol] 2.4 10*3/uL 2.0-7.7 [facility] Work Phone: Neutrophils/100 WBC (Bld) 53.3 % 47-70 [facility] Work Phone: Potassium [Moles/Vol] 4.2 mmol/L 3.5-5.1 [facility] Work Phone: Protein [Mass/Vol] 7.6 g/dL 6.4-8.2 [facility] Work Phone: Sodium [Moles/Vol] 140 mmol/L 136-145 [facility] Work Phone: WBC (Bld) [#/Vol] 4.5 10*3/uL 4.4-11.0 [facility] Work Phone: Blood erythrocytes count (nu mber/volume)on 05-28-2022 RBC (Bld) [#/Vol] 4.31 10*6/uL 4.2-5.4 [facility] Work Phone: Blood hemoglobin measurement (mass/volume)on 05-28-2022 Hemoglobin (Bld) [Mass/Vol] 12.8 g/dL 12.0-15.0 [facility] Work Phone: [phone] Blood lymphocytes/100 leukoc yteson 05-28-2022 Lymphocytes/100 WBC (Bld) 28.7 % 19-41 [facility] Work Phone: [phone] Blood monocytes/100 leukocyt eson 05-28-2022 Monocytes/100 WBC (Bld) 13.8 % 0-10 [facility] Work Phone: [phone] Blood platelet mean volumeon 05-28-2022 Platelet mean volume (Bld) [Entitic vol] 10.9 fL 6.2-12.0 [facility] Work Phone: [phone] Determination of erythrocyte mean corpuscular volume (MCV)on 05-28-2022 MCV (RBC) [Entitic vol] 91.6 fL 81-99 [facility] Work Phone: [phone] Hematocrit Auto (Bld) [Volum e fraction]on 05-28-2022 Hematocrit (Bld) [Volume fraction] 39.5 % 37-47 [facility] Work Phone: Laboratory - Chemistry and C hemistry - challengeon 05-28-2022 ALP [Catalytic activity/Vol] 129 U/L 45-117 [facility] Work Phone: [phone] ALT [Catalytic activity/Vol] 30 U/L 13-56 [facility] Work Phone: [phone] CO2 [Moles/Vol] 26.0 mmol/L 21.0-32.0 [facility] Work Phone: [phone] Globulin (S) [Mass/Vol] 4.3 g/dL 2.2-4.2 [facility] Work Phone: [phone] Urea nitrogen/Creatinine [Mass ratio] 10.9 mg/mg 10-20 [facility] Work Phone: [phone] Laboratory - Hematology and Cell countson 05-28-2022 Erythrocyte distribution width (RBC) [Entitic vol] 45.6 fL 35.1-43.9 [facility] Work Phone: [phone] Erythrocyte distribution width (RBC) [Ratio] 13.4 % 11.6-14.6 [facility] Work Phone: [phone] Immature granulocytes/100 WBC (Bld) 0.700 % 0.0-0.9 [facility] Work Phone: [phone] Comment on above: IG% - Immature Granu locytes (promyelocytes, myelocytes and metamyelocytes) > 1% indicates that a LEFT SHIFT is Present. MCH (RBC) [Entitic mass] 29.7 pg 27.0-32.0 [facility] Work Phone: [phone] Nucleated RBC/100 WBC (Bld) [Ratio] 0 % 0-5 [facility] Work Phone: [phone] MCHC Auto (RBC) [Mass/Vol]on 05-28-2022 MCHC (RBC) [Mass/Vol] 32.4 g/dL 32-36 [facility] Work Phone: [phone] Panel Informationon 05-28 Estimated GFR (MDRD) Amer 61 mL/min >60 [facility] Work Phone: [phone] Comment on above: GFR Calc Estimated GFR (MDRD) Non-Af Amer 50 mL/min >60 [facility] Work Phone: [phone] Comment on above: Non- GFR Calc Platelets bldon 05-28-2022 Platelets (Bld) [#/Vol] 152 10*3/uL 150-450 [facility] Work Phone: [phone] Serum or plasma albumin shell urement (mass/volume)on 05-28-2022 Albumin [Mass/Vol] 3.3 g/dL 3.2-5.0 [facility] Work Phone: [phone] Serum or plasma albumin/glob ulin mass ratioon 05-28-2022 Albumin/Globulin [Mass ratio] 0.8 {ratio} 0.9-2.4 [facility] Work Phone: [phone] Serum or plasma calcium shell urement (mass/volume)on 05-28-2022 Calcium [Mass/Vol] 9.3 mg/dL 8.5-10.1 [facility] Work Phone: Serum or plasma creatinine m easurement (mass/volume)on 05-28-2022 Creatinine [Mass/Vol] 1.10 mg/dL 0.55-1.02 [facility] Work Phone: Comment on above: The validity of the calculated GFR & GFRAA in patients over 70 years has not been determined. Clinical correlation is essential. Serum or plasma urea nitroge n measurement (mass/volume)on 05-28-2022 Urea nitrogen [Mass/Vol] 12 mg/dL 7-18 [facility] Work Phone: Thin prep Papanicolaou smear with manual screeningon 05-28-2022 Thin prep Papanicolaou smear with manual screening 25 U/L 15-37 [facility] Work Phone: [phone] Thin prep Papanicolaou smear with manual screening 7 5-15 [facility] Work Phone: [phone] Absolute lymphocyte counton 02-03-2022 Lymphocytes Auto (Unsp spec) [#/Vol] 1.27 10*3/uL 0.83-4.51 [facility] Work Phone: Basophil percentageon 2021 Basophils/100 WBC (Bld) 1.0 % 0-1 [facility] Work Phone: [phone] Bilirubin [Mass/Vol] 0.60 mg/dL 0.20-1.00 [facility] Work Phone: [phone] Comment on above: For patients on eltr ombopag therapy, use of Dimension [place] TBIL is not recommended. Chloride [Moles/Vol] 107 mmol/L 98-107 [facility] Work Phone: Eosinophils/100 WBC (Bld) 2.9 % 0-5 [facility] Work Phone: [phone] Glucose [Mass/Vol] 117 mg/dL 74-106 [facility] Work Phone: [phone] Comment on above: Fasting Glucose resu lt from 100 to 125 mg/dL suggests IMPAIRED HOMEOSTASIS per A.D.A. criteria. Neutrophils (Bld) [#/Vol] 2.9 10*3/uL 2.0-7.7 [facility] Work Phone: Neutrophils/100 WBC (Bld) 60.0 % 47-70 [facility] Work Phone: [phone] Potassium [Moles/Vol] 3.8 mmol/L 3.5-5.1 [facility] Work Phone: [phone] Protein [Mass/Vol] 7.5 g/dL 6.4-8.2 [facility] Work Phone: [phone] Sodium [Moles/Vol] 140 mmol/L 136-145 [facility] Work Phone: [phone] WBC (Bld) [#/Vol] 4.8 10*3/uL 4.4-11.0 [facility] Work Phone: [phone] Blood erythrocytes count (nu mber/volume)on 02-03-2022 RBC (Bld) [#/Vol] 4.23 10*6/uL 4.2-5.4 [facility] Work Phone: [phone] Blood hemoglobin measurement (mass/volume)on 02-03-2022 Hemoglobin (Bld) [Mass/Vol] 12.1 g/dL 12.0-15.0 [facility] Work Phone: [phone] Blood lymphocytes/100 leukoc yteson 02-03-2022 Lymphocytes/100 WBC (Bld) 26.4 % 19-41 [facility] Work Phone: [phone] Blood monocytes/100 leukocyt eson 02-03-2022 Monocytes/100 WBC (Bld) 9.1 % 0-10 [facility] Work Phone: [phone] Blood platelet mean volumeon 02-03-2022 Platelet mean volume (Bld) [Entitic vol] 10.7 fL 6.2-12.0 [facility] Work Phone: Determination of erythrocyte mean corpuscular volume (MCV)on 02-03-2022 MCV (RBC) [Entitic vol] 92.2 fL 81-99 [facility] Work Phone: [phone] Hematocrit Auto (Bld) [Volum e fraction]on 02-03-2022 Hematocrit (Bld) [Volume fraction] 39.0 % 37-47 [facility] Work Phone: [phone] Laboratory - Chemistry and C hemistry - challengeon 02-03-2022 ALP [Catalytic activity/Vol] 141 U/L 45-117 [facility] Work Phone: [phone] ALT [Catalytic activity/Vol] 23 U/L 13-56 [facility] Work Phone: [phone] CO2 [Moles/Vol] 26.0 mmol/L 21.0-32.0 [facility] Work Phone: [phone] Globulin (S) [Mass/Vol] 4.2 g/dL 2.2-4.2 [facility] Work Phone: [phone] Urea nitrogen/Creatinine [Mass ratio] 14.0 mg/mg 10-20 [facility] Work Phone: [phone] Laboratory - Hematology and Cell countson 02-03-2022 Erythrocyte distribution width (RBC) [Entitic vol] 46.3 fL 35.1-43.9 [facility] Work Phone: [phone] Erythrocyte distribution width (RBC) [Ratio] 13.7 % 11.6-14.6 [facility] Work Phone: [phone] Immature granulocytes/100 WBC (Bld) 0.600 % 0.0-0.9 [facility] Work Phone: [phone] Comment on above: IG% - Immature Granu locytes (promyelocytes, myelocytes and metamyelocytes) > 1% indicates that a LEFT SHIFT is Present. MCH (RBC) [Entitic mass] 28.6 pg 27.0-32.0 [facility] Work Phone: [phone] Nucleated RBC/100 WBC (Bld) [Ratio] 0 % 0-5 [facility] Work Phone: [phone] MCHC Auto (RBC) [Mass/Vol]on 02-03-2022 MCHC (RBC) [Mass/Vol] 31.0 g/dL 32-36 [facility] Work Phone: No Panel Informationon 02-03 Estimated GFR (MDRD) Amer 63 mL/min >60 [facility] Work Phone: Comment on above: GFR Calc Estimated GFR (MDRD) Non-Af Amer 52 mL/min >60 [facility] Work Phone: Comment on above: Non- GFR Calc Platelets bldon 02-03-2022 Platelets (Bld) [#/Vol] 179 10*3/uL 150-450 [facility] Work Phone: Serum or plasma albumin shell urement (mass/volume)on 02-03-2022 Albumin [Mass/Vol] 3.3 g/dL 3.2-5.0 [facility] Work Phone: Serum or plasma albumin/glob ulin mass ratioon 02-03-2022 Albumin/Globulin [Mass ratio] 0.8 {ratio} 0.9-2.4 [facility] Work Phone: Serum or plasma calcium shell urement (mass/volume)on 02-03-2022 Calcium [Mass/Vol] 9.1 mg/dL 8.5-10.1 [facility] Work Phone: Serum or plasma creatinine m easurement (mass/volume)on 02-03-2022 Creatinine [Mass/Vol] 1.07 mg/dL 0.55-1.02 [facility] Work Phone: Comment on above: The validity of the calculated GFR & GFRAA in patients over 70 years has not been determined. Clinical correlation is essential. 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 Public Health Analyst: PSCB Transcribe Date/Time: Jan 29 2021 11:35A Dictated by : ANGELINA SOLORZANO MD This examination was interpreted and the report reviewed and electronically signed by: ANGELINA SOLORZANO MD on Jan 29 2021 11:38AM [facility] DIVISION OF RADIOLOGY Radiology Study observation (narrative) [facility] No Panel InformationOrdered By: [facility] Provider on 01-29-2021 [facility] XR Cervical spine AP and Lat eral and obliqueon 01-29-2021 * * *Final Report* * * DATE OF EXAM: Jan 29 2021 9:49AM WOX 5311 - XR CERVICAL 4V AP/LAT/OBL / PROCEDURE REASON: Neck pain, bilateral * * * * Physician Interpretation * * * * Cervical spine and bilateral shoulder radiographs HISTORY: 80 years old Clinical information: Chronic pain of both shoulders Chronic pain of both shoulders Chronic pain of both shoulders Pain on the top and posterior bilateral shoulders without injury x 1 month. (accession [id number]), Pain on the top and posterior bilateral shoulders without injury x 1 month. (accession [id number]), Posterior neck pain that radiates to both shoulders x 1 month. No injury (accession [id number]) TECHNIQUE: Images: XR SHLDR >/=3V AP/SAMUEL AP/OTHR RT, XR SHLDR >/=3V AP/SAMUEL AP/OTHR LT, XR CERVICAL 4V AP/LAT/OBL Comparison: None. Left shoulder RESULT: Glenohumeral joint space is maintained. Mild marginal osteophyte formation involving the inferior aspect of the glenoid. Narrowing of the acromioclavicular joint with associated subjacent osteophytes. No fracture or dislocation. No soft tissue abnormality identified. Right shoulder RESULT: Glenohumeral joint space is maintained. Narrowing of the acromioclavicular joint with associated subjacent osteophytes. No fracture or dislocation. No soft tissue abnormality identified. Cervical spine RESULT: No gross malalignment. Intervertebral disc space narrowing and endplate osteophyte formation at multiple levels in the cervical spine. Minimal bilateral multilevel neural foraminal stenosis. The prevertebral soft tissues are within normal limits. Imaged lung apices are clear. Vascular calcifications in the right neck. DIVISION [facility]OLOGY [facility] * * *Final Report* * * DATE OF EXAM: Jan 29 2021 9:49AM WOX 5311 - XR CERVICAL 4V AP/LAT/OBL / PROCEDURE REASON: Neck pain, bilateral * * * * Physician Interpretation * * * * Cervical spine and bilateral shoulder radiographs HISTORY: 80 years old Clinical information: Chronic pain of both shoulders Chronic pain of both shoulders Chronic pain of both shoulders Pain on the top and posterior bilateral shoulders without injury x 1 month. (accession [id number]), Pain on the top and posterior bilateral shoulders without injury x 1 month. (accession [id number]), Posterior neck pain that radiates to both shoulders x 1 month. No injury (accession [id number]) TECHNIQUE: Images: XR SHLDR >/=3V AP/SAMUEL AP/OTHR RT, XR SHLDR >/=3V AP/SAMUEL AP/OTHR LT, XR CERVICAL 4V AP/LAT/OBL Comparison: None. Left shoulder RESULT: Glenohumeral joint space is maintained. Mild marginal osteophyte formation involving the inferior aspect of the glenoid. Narrowing of the acromioclavicular joint with associated subjacent osteophytes. No fracture or dislocation. No soft tissue abnormality identified. Right shoulder RESULT: Glenohumeral joint space is maintained. Narrowing of the acromioclavicular joint with associated subjacent osteophytes. No fracture or dislocation. No soft tissue abnormality identified. Cervical spine RESULT: No gross malalignment. Intervertebral disc space narrowing and endplate osteophyte formation at multiple levels in the cervical spine. Minimal bilateral multilevel neural foraminal stenosis. The prevertebral soft tissues are within normal limits. Imaged lung apices are clear. Vascular calcifications in the right neck. 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 Spondylosis of the cervical spine. Public Health Analyst: PSCB Transcribe Date/Time: Jan 29 2021 11:35A Dictated by : ANGELINA SOLORZANO MD This examination was interpreted and the report reviewed and electronically signed by: ANGELINA SOLORZANO MD on Jan 29 2021 11:38AM EST [facility] XR Shoulder - left 3 Viewson 01-29-2021 * * *Final Report* * * DATE OF EXAM: Jan 29 2021 9:49AM WOX 5252 - XR SHLDR >/=3V AP/SAMUEL AP/OTHR LT / PROCEDURE REASON: multiple diagnoses * * * * Physician Interpretation * * * * Cervical spine and bilateral shoulder radiographs HISTORY: 80 years old Clinical information: Chronic pain of both shoulders Chronic pain of both shoulders Chronic pain of both shoulders Pain on the top and posterior bilateral shoulders without injury x 1 month. (accession [id number]), Pain on the top and posterior bilateral shoulders without injury x 1 month. (accession [id number]), Posterior neck pain that radiates to both shoulders x 1 month. No injury (accession [id number]) TECHNIQUE: Images: XR SHLDR >/=3V AP/SAMUEL AP/OTHR RT, XR SHLDR >/=3V AP/SAMUEL AP/OTHR LT, XR CERVICAL 4V AP/LAT/OBL Comparison: None. Left shoulder RESULT: Glenohumeral joint space is maintained. Mild marginal osteophyte formation involving the inferior aspect of the glenoid. Narrowing of the acromioclavicular joint with associated subjacent osteophytes. No fracture or dislocation. No soft tissue abnormality identified. Right shoulder RESULT: Glenohumeral joint space is maintained. Narrowing of the acromioclavicular joint with associated subjacent osteophytes. No fracture or dislocation. No soft tissue abnormality identified. Cervical spine RESULT: No gross malalignment. Intervertebral disc space narrowing and endplate osteophyte formation at multiple levels in the cervical spine. Minimal bilateral multilevel neural foraminal stenosis. The prevertebral soft tissues are within normal limits. Imaged lung apices are clear. Vascular calcifications in the right neck. [facility]OLOGY [facility] * * *Final Report* * * DATE OF EXAM: Jan 29 2021 9:49AM WOX 5252 - XR SHLDR >/=3V AP/SAMUEL AP/OTHR LT / PROCEDURE REASON: multiple diagnoses * * * * Physician Interpretation * * * * Cervical spine and bilateral shoulder radiographs HISTORY: 80 years old Clinical information: Chronic pain of both shoulders Chronic pain of both shoulders Chronic pain of both shoulders Pain on the top and posterior bilateral shoulders without injury x 1 month. (accession [id number]), Pain on the top and posterior bilateral shoulders without injury x 1 month. (accession [id number]), Posterior neck pain that radiates to both shoulders x 1 month. No injury (accession [id number]) TECHNIQUE: Images: XR SHLDR >/=3V AP/SAMUEL AP/OTHR RT, XR SHLDR >/=3V AP/SAMUEL AP/OTHR LT, XR CERVICAL 4V AP/LAT/OBL Comparison: None. Left shoulder RESULT: Glenohumeral joint space is maintained. Mild marginal osteophyte formation involving the inferior aspect of the glenoid. Narrowing of the acromioclavicular joint with associated subjacent osteophytes. No fracture or dislocation. No soft tissue abnormality identified. Right shoulder RESULT: Glenohumeral joint space is maintained. Narrowing of the acromioclavicular joint with associated subjacent osteophytes. No fracture or dislocation. No soft tissue abnormality identified. Cervical spine RESULT: No gross malalignment. Intervertebral disc space narrowing and endplate osteophyte formation at multiple levels in the cervical spine. Minimal bilateral multilevel neural foraminal stenosis. The prevertebral soft tissues are within normal limits. Imaged lung apices are clear. Vascular calcifications in the right neck. 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 Spondylosis of the cervical spine. Public Health Analyst: FRANCIS Transcribe Date/Time: Jan 29 2021 11:35A Dictated by : ANGELINA SOLORZANO MD This examination was interpreted and the report reviewed and electronically signed by: ANGELINA SOLORZANO MD on Jan 29 2021 11:38AM EST [facility] XR Shoulder - right 3 Viewso n 01-29-2021 * * *Final Report* * * DATE OF EXAM: Jan 29 2021 9:49AM WOX 5253 - XR SHLDR >/=3V AP/SAMUEL AP/OTHR RT / PROCEDURE REASON: multiple diagnoses * * * * Physician Interpretation * * * * Cervical spine and bilateral shoulder radiographs HISTORY: 80 years old Clinical information: Chronic pain of both shoulders Chronic pain of both shoulders Chronic pain of both shoulders Pain on the top and posterior bilateral shoulders without injury x 1 month. (accession [id number]), Pain on the top and posterior bilateral shoulders without injury x 1 month. (accession [id number]), Posterior neck pain that radiates to both shoulders x 1 month. No injury (accession [id number]) TECHNIQUE: Images: XR SHLDR >/=3V AP/SAMUEL AP/OTHR RT, XR SHLDR >/=3V AP/SAMUEL AP/OTHR LT, XR CERVICAL 4V AP/LAT/OBL Comparison: None. Left shoulder RESULT: Glenohumeral joint space is maintained. Mild marginal osteophyte formation involving the inferior aspect of the glenoid. Narrowing of the acromioclavicular joint with associated subjacent osteophytes. No fracture or dislocation. No soft tissue abnormality identified. Right shoulder RESULT: Glenohumeral joint space is maintained. Narrowing of the acromioclavicular joint with associated subjacent osteophytes. No fracture or dislocation. No soft tissue abnormality identified. Cervical spine RESULT: No gross malalignment. Intervertebral disc space narrowing and endplate osteophyte formation at multiple levels in the cervical spine. Minimal bilateral multilevel neural foraminal stenosis. The prevertebral soft tissues are within normal limits. Imaged lung apices are clear. Vascular calcifications in the right neck. DIVISION OF RADIOLOGY Provider, [facility] - 01/29/2021 * * *Final Report* * * DATE OF EXAM: Jan 29 2021 9:49AM WOX 5253 - XR SHLDR >/=3V AP/SAMUEL AP/OTHR RT / PROCEDURE REASON: multiple diagnoses * * * * Physician Interpretation * * * * Cervical spine and bilateral shoulder radiographs HISTORY: 80 years old Clinical information: Chronic pain of both shoulders Chronic pain of both shoulders Chronic pain of both shoulders Pain on the top and posterior bilateral shoulders without injury x 1 month. (accession [id number]), Pain on the top and posterior bilateral shoulders without injury x 1 month. (accession [id number]), Posterior neck pain that radiates to both shoulders x 1 month. No injury (accession [id number]) TECHNIQUE: Images: XR SHLDR >/=3V AP/SAMUEL AP/OTHR RT, XR SHLDR >/=3V AP/SAMUEL AP/OTHR LT, XR CERVICAL 4V AP/LAT/OBL Comparison: None. Left shoulder RESULT: Glenohumeral joint space is maintained. Mild marginal osteophyte formation involving the inferior aspect of the glenoid. Narrowing of the acromioclavicular joint with associated subjacent osteophytes. No fracture or dislocation. No soft tissue abnormality identified. Right shoulder RESULT: Glenohumeral joint space is maintained. Narrowing of the acromioclavicular joint with associated subjacent osteophytes. No fracture or dislocation. No soft tissue abnormality identified. Cervical spine RESULT: No gross malalignment. Intervertebral disc space narrowing and endplate osteophyte formation at multiple levels in the cervical spine. Minimal bilateral multilevel neural foraminal stenosis. The prevertebral soft tissues are within normal limits. Imaged lung apices are clear. Vascular calcifications in the right neck. 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 Spondylosis of the cervical spine. Public Health Analyst: PSCB Transcribe Date/Time: Jan 29 2021 11:35A Dictated by : ANGELINA SOLORZANO MD This examination was interpreted and the report reviewed and electronically signed by: ANGELINA SOLORZANO MD on Jan 29 2021 11:38AM EST [facility] Vital Signs Date Time Vital Sign Value Performing Clinician Facility 05-22-2025 13:59-0400 Body mass index (BMI) [Ratio] 26.43 kg/m2 Atul Harvey DO Work Phone: [facility] 05-22-2025 13:59-0400 Body temperature 97 [degF] Atul Harvey DO Work Phone: [facility] 05-22-2025 13:59-0400 Body weight 69.85 kg Atul Harvey DO Work Phone: [facility] 05-22-2025 13:59-0400 Diastolic blood pressure 80 mm[Hg] Atul Harvey DO Work Phone: [facility] 05-22-2025 13:59-0400 Heart rate 60 /min Atul Harvey DO Work Phone: [facility] 05-22-2025 13:59-0400 Respiratory rate 16 /min Atul Harvey DO Work Phone: [facility] 05-22-2025 13:59-0400 Systolic blood pressure 120 mm[Hg] Atul Harvey DO Work Phone: [facility] 04-24-2025 12:10-0400 Body mass index (BMI) [Ratio] 26.11 kg/m2 Josef Martinez APRN.GROCERY BAGGER Work Phone: [facility] 04-24-2025 12:10-0400 Body weight 69 kg Josef Martinez APRN.GROCERY BAGGER Work Phone: [facility] 04-24-2025 12:10-0400 Diastolic blood pressure 76 mm[Hg] Josef Martinez APRN.GROCERY BAGGER Work Phone: [facility] 04-24-2025 12:10-0400 Heart rate 56 /min Josef Martinez APRN.GROCERY BAGGER Work Phone: [facility] 04-24-2025 12:10-0400 Systolic blood pressure 171 mm[Hg] Josef Martinez APRN.GROCERY BAGGER Work Phone: [facility] 03-27-2025 09:09-0400 Body height 162.6 cm Rasheed Barrios MD Work Phone: [facility] 03-27-2025 09:09-0400 Body mass index (BMI) [Ratio] 26.09 kg/m2 Rasheed Barrios MD Work Phone: [facility] 03-27-2025 09:09-0400 Body weight 68.95 kg Rasheed Barrios MD Work Phone: [facility] 03-27-2025 09:09-0400 Diastolic blood pressure 80 mm[Hg] Rasheed Mustafa Work Phone: [facility] 03-27-2025 09:09-0400 Heart rate 59 /min Rasheed Barrios MD Work Phone: [facility] 03-27-2025 09:09-0400 Respiratory rate 12 /min Rasheed Barrios MD Work Phone: [facility] 03-27-2025 09:09-0400 SaO2% (BldA) [Mass fraction] 97 % Rasheed Barrios MD Work Phone: [facility] 03-27-2025 09:09-0400 Systolic blood pressure 166 mm[Hg] Rasheed Barrios MD Work Phone: [facility] 02-07-2025 10:10-0400 Body mass index (BMI) [Ratio] 25.06 kg/m2 Atul Harvey DO Work Phone: [facility] 02-07-2025 10:10-0400 Body temperature 97 [degF] Atul Harvey DO Work Phone: [facility] 02-07-2025 10:10-0400 Body weight 66.22 kg Atul Harvey DO Work Phone: [facility] 02-07-2025 10:10-0400 Diastolic blood pressure 72 mm[Hg] Atul Harvey DO Work Phone: [facility] 02-07-2025 10:10-0400 Heart rate 64 /min Atul Harvey DO Work Phone: [facility] 02-07-2025 10:10-0400 Respiratory rate 20 /min Atul Harvey DO Work Phone: [facility] 02-07-2025 10:10-0400 Systolic blood pressure 124 mm[Hg] Atul Harvey DO Work Phone: [facility] 01-07-2025 10:47-0400 SaO2% (BldA) [Mass fraction] 97 % [facility] Comment on above: Order Comment: Specimen Type: ARTERIAL B LOOD SPECIMENOrdering Facility: [facility] Address: [address] [place] [address] Performed By: #### A LLBG ####[facility] LABORATORYCLIA [id number] [address] 01-07-2025 05:57-0400 SaO2% (BldA) [Mass fraction] 98 % [facility] Comment on above: Order Comment: Specimen Type: ARTERIAL B LOOD SPECIMENOrdering Facility: [facility] Address: [address] [place] [address] Performed By: #### A LLBG ####[facility] [id number] [address] 01-07-2025 00:00-0400 SaO2% (BldA) [Mass fraction] 98 % [facility] Comment on above: Order Comment: Specimen Type: ARTERIAL B LOOD SPECIMENOrdering Facility: [facility] Address: [address] [place] [address] Performed By: #### A LLBG ####[facility] LABORATORYCLIA [id number] [place] [id number] [facility] 01-06-2025 17:51-0400 SaO2% (BldA) [Mass fraction] 98 % [facility] Comment on above: Order Comment: Specimen Type: ARTERIAL B LOOD SPECIMENOrdering Facility: [facility] Address: [address] [place] [address] Performed By: #### A LLBG ####[facility]ORATORYCLIA [id number] [address] 01-06-2025 14:02-0400 SaO2% (BldA) [Mass fraction] 99 % [facility] Comment on above: Order Comment: Specimen Type: ARTERIAL B LOOD SPECIMENOrdering Facility: [facility] Address: [address] [place] [address] Performed By: #### A LLBG ####[facility] LABORATORYCLIA [id number] [place] [id number] [facility] 01-06-2025 12:32-0400 SaO2% (BldA) [Mass fraction] 99 % [facility] Comment on above: Order Comment: Specimen Type: ARTERIAL B LOOD SPECIMENOrdering Facility: [facility] Address: [address] [place] [address] Performed By: #### A LLBG ####[facility]ORATORYCLIA [id number] [address] 01-06-2025 09:30-0400 SaO2% (BldA) [Mass fraction] 99 % [facility] Comment on above: Order Comment: Specimen Type: ARTERIAL B LOOD SPECIMENOrdering Facility: [facility] Address: [address] [place] [address] Performed By: #### A LLBG ####[facility]ORATORYCLIA [id number] [address] 01-06-2025 05:21-0400 Body height 160.[address] Atul Harvey DO Work Phone: [facility] 01-06-2025 05:21-0400 Body mass index (BMI) [Ratio] 27.8 kg/m2 Dr. Atul Harvey DO Work Phone: [facility] 01-06-2025 05:210400 Body weight 71.[address] Atul Harvey DO Work Phone: [facility] 01-06-2025 05:17-0400 Body temperature 97.6 [degF] Dr. Atul Harvey DO Work Phone: [facility] 01-06-2025 05:17-0400 Diastolic blood pressure 89 mm[Hg] Dr. Atul Harvey DO Work Phone: [facility] 01-06-2025 05:17-0400 Heart rate 72 /min Dr. Atul Harvey DO Work Phone: [facility] 01-06-2025 05:17-0400 Respiratory rate 24 /min Dr. Atul Harvey DO Work Phone: [facility] 01-06-2025 05:17-0400 SaO2% (BldA) [Mass fraction] 99 % Dr. Atul Harvey DO Work Phone: [facility] 01-06-2025 05:17-0400 Systolic blood pressure 135 mm[Hg] Dr. Atul Harvey DO Work Phone: [facility] 01-06-2025 04:41-0400 Inhaled oxygen flow rate 2 L/min Dr. Atul Harvey DO Work Phone: [facility] 11-11-2024 18:12-0500 Body mass index (BMI) [Ratio] 26.95 kg/m2 Maria E Brewster APRN.GROCERY BAGGER Work Phone: [facility] 11-11-2024 18:12-0500 Body temperature 98.71 [degF] Maria E Brewster APRN.GROCERY BAGGER Work Phone: [facility] 11-11-2024 18:12-0500 Body weight 69 kg Maria E Brewster APRN.GROCERY BAGGER Work Phone: [facility] 11-11-2024 18:12-0500 Diastolic blood pressure 77 mm[Hg] Maria E Brewster APRN.GROCERY BAGGER Work Phone: [facility] 11-11-2024 18:12-0500 Heart rate 70 /min Maria E Brewster APRN.GROCERY BAGGER Work Phone: [facility] 11-11-2024 18:12-0500 Respiratory rate 22 /min Maria E Brewster APRN.GROCERY BAGGER Work Phone: [facility] 11-11-2024 18:12-0500 SaO2% (BldA) [Mass fraction] 96 % Maria E Brewster APRN.GROCERY BAGGER Work Phone: [facility] 11-11-2024 18:12-0500 Systolic blood pressure 147 mm[Hg] Maria E Brewster APRN.GROCERY BAGGER Work Phone: [facility] 11-07-2024 10:26-0500 Body height 160 cm Rasheed Barrios MD Work Phone: [facility] 11-07-2024 10:26-0500 Body mass index (BMI) [Ratio] 26.75 kg/m2 Rasheed Barrios MD Work Phone: [facility] 11-07-2024 10:26-0500 Body weight 68.49 kg Rasheed Barrios MD Work Phone: [facility] 11-07-2024 10:26-0500 Diastolic blood pressure 90 mm[Hg] Rasheed Mustafa Work Phone: [facility] 11-07-2024 10:26-0500 Heart rate 71 /min Rasheed Barrios MD Work Phone: [facility] 11-07-2024 10:26-0500 Respiratory rate 14 /min Rasheed Barrios MD Work Phone: [facility] 11-07-2024 10:26-0500 SaO2% (BldA) [Mass fraction] 99 % Rasheed Barrios MD Work Phone: [facility] 11-07-2024 10:26-0500 Systolic blood pressure 140 mm[Hg] Rasheed Barrios MD Work Phone: [facility] 10-25-2024 10:34-0500 Body mass index (BMI) [Ratio] 26.85 kg/m2 Catalina Jauregui STEAM FINISHER.GROCERY BAGGER Work Phone: [facility] 10-25-2024 10:34-0500 Body weight 68.77 kg Catalina Jauregui APRN.GROCERY BAGGER Work Phone: [facility] 10-25-2024 10:34-0500 Diastolic blood pressure 72 mm[Hg] Catalina pena STEAM FINISHER.GROCERY BAGGER Work Phone: [facility] 10-25-2024 10:34-0500 Heart rate 73 /min Catalina Jauregui STEAM FINISHER.GROCERY BAGGER Work Phone: [facility] 10-25-2024 10:34-0500 SaO2% (BldA) [Mass fraction] 98 % Catalina Jauregui STEAM FINISHER.GROCERY BAGGER Work Phone: [facility] 10-25-2024 10:34-0500 Systolic blood pressure 112 mm[Hg] Catalina Jauregui STEAM FINISHER.GROCERY BAGGER Work Phone: [facility] 10-18-2024 14:00-0500 Inhaled oxygen concentration 2 % Dr. Atul Harvey DO Work Phone: 8(940)783-884539 [place] [address] 10-18-2024 07:40-0500 Heart rate 115 /min Dr. Atul Harvey DO Work Phone: 1(989)000-693339 [place] [address] 10-18-2024 07:23-0500 Body temperature 98 [degF] Dr. Atul Harvey DO Work Phone: 8(286)677-388839 [place] [address] 10-18-2024 07:23-0500 Diastolic blood pressure 70 mm[Hg] Dr. Atul Harvey DO Work Phone: 8(248)786-180239 [place] [address] 10-18-2024 07:23-0500 Respiratory rate 17 /min Dr. Atul Harvey DO Work Phone: 4(512)844-693639 [place] [address] 10-18-2024 07:23-0500 SaO2% (BldA) [Mass fraction] 90 % Dr. Atul Harvey DO Work Phone: 0(289)837-416739 [place] [address] 10-18-2024 07:23-0500 Systolic blood pressure 120 mm[Hg] Dr. Atul Harvey DO Work Phone: 4(443)784-217939 [place] [address] 10-18-2024 02:15-0500 Inhaled oxygen flow rate 2 L/min Dr. Atul Harvey DO Work Phone: 6(538)771-475839 [place] [address] 10-17-2024 15:07-0500 Body weight 69.[address] Atul Harvey DO Work Phone: 4(183)683-697539 [place] [address] 10-12-2024 17:23-0500 Body mass index (BMI) [Ratio] 27.1 kg/m2 Dr. Atul Harvey DO Work Phone: [facility] 10-12-2024 12:37-0500 Body mass index (BMI) [Ratio] 27.81 kg/m2 Richard Praisler-Wood STEAM FINISHER.GROCERY BAGGER Work Phone: [facility] 10-12-2024 12:37-0500 Body temperature 102 [degF] Richard Praisler-Wood STEAM FINISHER.GROCERY BAGGER Work Phone: [facility] 10-12-2024 12:37-0500 Body weight 71.2 kg Richard Praisler-Wood STEAM FINISHER.GROCERY BAGGER Work Phone: [facility] 10-12-2024 12:37-0500 Diastolic blood pressure 80 mm[Hg] Richard Praisler-Wood STEAM FINISHER.GROCERY BAGGER Work Phone: [facility] 10-12-2024 12:37-0500 Heart rate 132 /min Richard Praisler-Wood STEAM FINISHER.GROCERY BAGGER Work Phone: [facility] 10-12-2024 12:37-0500 Respiratory rate 30 /min Richard Praisler-Wood STEAM FINISHER.GROCERY BAGGER Work Phone: [facility] 10-12-2024 12:37-0500 SaO2% (BldA) [Mass fraction] 95 % Richard Praisler-Wood STEAM FINISHER.GROCERY BAGGER Work Phone: [facility] 10-12-2024 12:37-0500 Systolic blood pressure 122 mm[Hg] Richard Praisler-Wood STEAM FINISHER.GROCERY BAGGER Work Phone: [facility] 08-22-2024 09:45-0500 Body mass index (BMI) [Ratio] 27.88 kg/m2 Atul Harvey DO Work Phone: [facility] 08-22-2024 09:45-0500 Body temperature 97 [degF] Atul Harvey DO Work Phone: [facility] 08-22-2024 09:45-0500 Body weight 71.4 kg Atul Harvey DO Work Phone: [facility] 08-22-2024 09:45-0500 Diastolic blood pressure 64 mm[Hg] Atul Harvey DO Work Phone: [facility] 08-22-2024 09:45-0500 Heart rate 60 /min Atul Harvey DO Work Phone: [facility] 08-22-2024 09:45-0500 Respiratory rate 20 /min Atul Harvey DO Work Phone: [facility] 08-22-2024 09:45-0500 Systolic blood pressure 122 mm[Hg] Atul Harvey DO Work Phone: [facility] 08-01-2024 10:26-0400 Body mass index (BMI) [Ratio] 28.09 kg/m2 Rasheed Barrios MD Work Phone: [facility] 08-01-2024 10:26-0400 Body temperature 97.3 [degF] Rasheed Barrios MD Work Phone: [facility] 08-01-2024 10:26-0400 Body weight 71.94 kg Rasheed Barrios MD Work Phone: [facility] 08-01-2024 10:26-0400 Diastolic blood pressure 75 mm[Hg] Rasheed Mustafa Work Phone: [facility] 08-01-2024 10:26-0400 Heart rate 52 /min Rasheed Barrios MD Work Phone: [facility] 08-01-2024 10:26-0400 Respiratory rate 18 /min Rasheed Barrios MD Work Phone: [facility] 08-01-2024 10:26-0400 SaO2% (BldA) [Mass fraction] 97 % Rasheed Barrios MD Work Phone: [facility] 08-01-2024 10:26-0400 Systolic blood pressure 124 mm[Hg] Rasheed Barrios MD Work Phone: [facility] 05-20-2024 09:46-0400 Body mass index (BMI) [Ratio] 29.29 kg/m2 Milana Armijo STEAM FINISHER.GROCERY BAGGER Work Phone: [facility] 05-20-2024 09:46-0400 Body weight 75 kg Milana Armijo STEAM FINISHER.GROCERY BAGGER Work Phone: [facility] 05-20-2024 09:46-0400 Diastolic blood pressure 62 mm[Hg] Milana Armijo STEAM FINISHER.GROCERY BAGGER Work Phone: [facility] 05-20-2024 09:46-0400 Heart rate 60 /min Milana Armijo STEAM FINISHER.GROCERY BAGGER Work Phone: [facility] 05-20-2024 09:46-0400 SaO2% (BldA) [Mass fraction] 96 % Milana Armijo STEAM FINISHER.GROCERY BAGGER Work Phone: [facility] 05-20-2024 09:46-0400 Systolic blood pressure 114 mm[Hg] Milana Armijo STEAM FINISHER.GROCERY BAGGER Work Phone: [facility] 03-18-2024 08:31-0400 Body mass index (BMI) [Ratio] 29.23 kg/m2 Catalina Ramírez STEAM FINISHER.GROCERY BAGGER Work Phone: [facility] 03-18-2024 08:31-0400 Body temperature 98.2 [degF] Catalina Ramírez STEAM FINISHER.GROCERY BAGGER Work Phone: [facility] 03-18-2024 08:31-0400 Body weight 74.84 kg Catalina Ramírez STEAM FINISHER.GROCERY BAGGER Work Phone: [facility] 03-18-2024 08:31-0400 Diastolic blood pressure 62 mm[Hg] Catalina Stutzma n STEAM FINISHER.GROCERY BAGGER Work Phone: [facility] 03-18-2024 08:31-0400 Heart rate 53 /min Catalina Ramírez STEAM FINISHER.GROCERY BAGGER Work Phone: [facility] 03-18-2024 08:31-0400 Respiratory rate 16 /min Catalina Ramírez STEAM FINISHER.GROCERY BAGGER Work Phone: [facility] 03-18-2024 08:31-0400 SaO2% (BldA) [Mass fraction] 98 % Catalina Ramírez STEAM FINISHER.GROCERY BAGGER Work Phone: [facility] 03-18-2024 08:31-0400 Systolic blood pressure 118 mm[Hg] Catalina Ramírez STEAM FINISHER.GROCERY BAGGER Work Phone: [facility] 03-16-2024 13:28-0400 Body mass index (BMI) [Ratio] 29.94 kg/m2 Catalina Ramírez STEAM FINISHER.GROCERY BAGGER Work Phone: [facility] 03-16-2024 13:28-0400 Body weight 76.66 kg Catalina Ramírez STEAM FINISHER.GROCERY BAGGER Work Phone: [facility] 03-16-2024 13:28-0400 Diastolic blood pressure 64 mm[Hg] Catalina Stutzma n STEAM FINISHER.GROCERY BAGGER Work Phone: [facility] 03-16-2024 13:28-0400 Heart rate 64 /min Catalina Ramírez STEAM FINISHER.GROCERY BAGGER Work Phone: [facility] 03-16-2024 13:28-0400 Respiratory rate 16 /min Catalina Ramírez STEAM FINISHER.GROCERY BAGGER Work Phone: [facility] 03-16-2024 13:28-0400 SaO2% (BldA) [Mass fraction] 97 % Catalina Ramírez STEAM FINISHER.GROCERY BAGGER Work Phone: [facility] 03-16-2024 13:28-0400 Systolic blood pressure 120 mm[Hg] Catalina Ramírez STEAM FINISHER.GROCERY BAGGER Work Phone: [facility] 02-17-2024 09:44-0400 Body mass index (BMI) [Ratio] 29.41 kg/m2 Atul Harvey DO Work Phone: [facility] 02-17-2024 09:44-0400 Body temperature 97.11 [degF] Atul Harvey DO Work Phone: [facility] 02-17-2024 09:44-0400 Body weight 75.3 kg Atul Harvey DO Work Phone: [facility] 02-17-2024 09:44-0400 Diastolic blood pressure 82 mm[Hg] Atul Harvey DO Work Phone: [facility] 02-17-2024 09:44-0400 Heart rate 60 /min Atul Harvey DO Work Phone: [facility] 02-17-2024 09:44-0400 Respiratory rate 16 /min Atul Harvey DO Work Phone: [facility] 02-17-2024 09:44-0400 Systolic blood pressure 120 mm[Hg] Atul Harvey DO Work Phone: [facility] 04-13-2023 09:22-0400 Body weight 74.39 kg Rasheed Barrios MD Work Phone: [facility] 04-13-2023 09:22-0400 Diastolic blood pressure 70 mm[Hg] Rasheed Mustafa Work Phone: [facility] 04-13-2023 09:22-0400 Heart rate 58 /min Rasheed Barrios MD Work Phone: [facility] 04-13-2023 09:22-0400 SaO2% (BldA) [Mass fraction] 97 % Rasheed Barrios MD Work Phone: [facility] 04-13-2023 09:22-0400 Systolic blood pressure 132 mm[Hg] Rasheed Barrios MD Work Phone: [facility] 03-18-2023 13:31-0400 Body temperature 99 [degF] Areli Duncan STEAM FINISHER.GROCERY BAGGER Work Phone: [facility] 03-18-2023 13:31-0400 Body weight 75.3 kg Areli Duncan STEAM FINISHER.GROCERY BAGGER Work Phone: [facility] 03-18-2023 13:31-0400 Diastolic blood pressure 82 mm[Hg] Areli Tannhof STEAM FINISHER.GROCERY BAGGER Work Phone: [facility] 03-18-2023 13:31-0400 Heart rate 66 /min Areli Tannhof STEAM FINISHER.GROCERY BAGGER Work Phone: [facility] 03-18-2023 13:31-0400 Respiratory rate 16 /min Areli Maryhof STEAM FINISHER.GROCERY BAGGER Work Phone: [facility] 03-18-2023 13:31-0400 SaO2% (BldA) [Mass fraction] 96 % Areli Tannhof STEAM FINISHER.GROCERY BAGGER Work Phone: [facility] 03-18-2023 13:31-0400 Systolic blood pressure 140 mm[Hg] Areli Tannhof STEAM FINISHER.GROCERY BAGGER Work Phone: [facility] 02-02-2023 09:36-0400 Body temperature 97 [degF] Atul Harvey DO Work Phone: [facility] 02-02-2023 09:36-0400 Body weight 75.3 kg Atul Harvey DO Work Phone: [facility] 02-02-2023 09:36-0400 Diastolic blood pressure 70 mm[Hg] Atul Harvey DO Work Phone: [facility] 02-02-2023 09:36-0400 Heart rate 64 /min Atul Harvey DO Work Phone: [facility] 02-02-2023 09:36-0400 Respiratory rate 16 /min Atul Harvey DO Work Phone: [facility] 02-02-2023 09:36-0400 Systolic blood pressure 130 mm[Hg] Atul Harvey DO Work Phone: [facility] 10-08-2022 10:46-0500 Body height 160 cm Christel Núñez PA-C Work Phone: [facility] 10-08-2022 10:46-0500 Body temperature 97.59 [degF] Christel Núñez PA-C Work Phone: [facility] 10-08-2022 10:46-0500 Body weight 74.12 kg Christel Almira PA-C Work Phone: [facility] 10-08-2022 10:46-0500 Diastolic blood pressure 68 mm[Hg] Christel Wilton PA- C Work Phone: [facility] 10-08-2022 10:46-0500 Heart rate 71 /min Christel Wilton PA-C Work Phone: [facility] 10-08-2022 10:46-0500 SaO2% (BldA) [Mass fraction] 97 % Christel Wilton PA-C Work Phone: [facility] 10-08-2022 10:46-0500 Systolic blood pressure 120 mm[Hg] Christel Wilton PA-C Work Phone: [facility] 09-30-2022 10:38-0500 Heart rate 55 /min Preet Daly MD Work Phone: [facility] 09-30-2022 10:38-0500 Respiratory rate 16 /min Preet Daly MD Work Phone: [facility] 09-30-2022 10:38-0500 SaO2% (BldA) [Mass fraction] 97 % Preet Daly MD Work Phone: [facility] 09-30-2022 10:28-0500 Diastolic blood pressure 60 mm[Hg] Preet Daly MD Work Phone: [facility] 09-30-2022 10:28-0500 Systolic blood pressure 127 mm[Hg] Preet Daly MD Work Phone: [facility] 09-30-2022 08:54-0500 Body temperature 97.9 [degF] Preet Daly MD Work Phone: [facility] 09-30-2022 08:54-0500 Body weight 73.5 kg Preet Daly MD Work Phone: [facility] 09-16-2022 08:34-0500 Body temperature 97 [degF] Atul Harvey DO Work Phone: [facility] 09-16-2022 08:34-0500 Body weight 73.48 kg Atul Harvey DO Work Phone: [facility] 09-16-2022 08:34-0500 Diastolic blood pressure 60 mm[Hg] Atul Harvey DO Work Phone: [facility] 09-16-2022 08:34-0500 Heart rate 56 /min Atul Harvey DO Work Phone: [facility] 09-16-2022 08:34-0500 Respiratory rate 16 /min Atul Harvey DO Work Phone: [facility] 09-16-2022 08:34-0500 Systolic blood pressure 100 mm[Hg] Atul Harvey DO Work Phone: [facility] 08-06-2022 13:33-0400 Body height 160 cm Christel Almira PA-C Work Phone: [facility] 08-06-2022 13:33-0400 Body temperature 97.2 [degF] Christel Wilton PA-C Work Phone: [facility] 08-06-2022 13:33-0400 Body weight 73.94 kg Christel Almira PA-C Work Phone: [facility] 08-06-2022 13:33-0400 Diastolic blood pressure 82 mm[Hg] Christel Wilton PA- C Work Phone: [facility] 08-06-2022 13:33-0400 Heart rate 68 /min Christel Almira PA-C Work Phone: [facility] 08-06-2022 13:33-0400 Respiratory rate 14 /min Christel Wilton PA-C Work Phone: [facility] 08-06-2022 13:33-0400 SaO2% (BldA) [Mass fraction] 95 % Christel Wilton PA-C Work Phone: [facility] 08-06-2022 13:33-0400 Systolic blood pressure 128 mm[Hg] Christel Almira PA-C Work Phone: [facility] 07-08-2022 09:47-0400 Body temperature 97 [degF] Atul Harvey DO Work Phone: [facility] 07-08-2022 09:47-0400 Body weight 74.39 kg Atul Harvey DO Work Phone: [facility] 07-08-2022 09:47-0400 Diastolic blood pressure 70 mm[Hg] Atul Harvey DO Work Phone: [facility] 07-08-2022 09:47-0400 Heart rate 80 /min Atul Harvey DO Work Phone: [facility] 07-08-2022 09:47-0400 Respiratory rate 16 /min Atul Harvey DO Work Phone: [facility] 07-08-2022 09:47-0400 Systolic blood pressure 110 mm[Hg] Atul Harvey DO Work Phone: [facility] Encounters Encounter Date Encounter Type Care Provider Facility Start: 06-12-2025 ambulatory Atul Hooveron Kendrick y:[facility] Start: 05-31-2025 End: 05-31-2025 ambulatory Atul L Harvey DO Work Phone: [facility] Comment on above: Allied Health Visit (Medication Adherence Outreach) Start: 05-22-2025 End: 05-22-2025 Patient encounter procedure Atul L Harvey DO Work Phone: [facility] Comment on above: Iron deficiency anem ia, unspecified iron deficiency anemia type (Primary Dx); Gait disturbance; Dyslipidemia; Subclinical hypothyroidism; Vitamin D deficiency; Hypertension, essential; H/O splenectomy; IFG (impaired fasting glucose); Elevated LFTs Start: 05-22-2025 End: 05-22-2025 ambulatory ATUL L HARVEY Facility:[facility] Start: 05-18-2025 End: 05-18-2025 ambulatory ATUL L HARVEY Facility:[facility] Start: 05-09-2025 End: 05-09-2025 ambulatory Atul L Harvey DO Work Phone: [facility] [place] [place] Comment on above: Allied Health Visit (Medication adherence outreach/) Start: 05-08-2025 End: 05-08-[address] Atul Harvey DO Work Phone: -[facility] [place] Start: 05-08-2025 End: 05-08-[address] Kimmie Hussein MD -[facility] [place] Work Phone: Start: 05-08-2025 End: 05-08-2025 ambulatory Kimmie Hussein Facility:[facility] Start: 04-24-2025 End: 04-24-2025 Follow-up encounter Josef Martinez APRN.GROCERY BAGGER Work Phone: [facility] Start: 04-24-2025 End: 04-24-2025 Telephone encounter Josef Martinez APRN.GROCERY BAGGER Work Phone: [facility] Comment on above: Appointment; Patient Update Start: 04-24-2025 End: 04-24-2025 Subsequent hospital visit by physician X[facility] Work Phone: Radiology Comment on above: URI, acute [J06.9] Start: 04-24-2025 End: 04-24-2025 ambulatory ATUL HARVEY Facility:[facility] Start: 04-24-2025 End: 04-24-2025 Patient encounter procedure Josef Martinez APRN.GROCERY BAGGER Work Phone: [facility] Comment on above: URI, acute (Primary Dx) Start: 03-27-2025 End: 03-27-2025 ambulatory RASHEED BARRIOS Facility:[facility] Start: 03-27-2025 End: 03-27-2025 Patient encounter procedure Rasheed Barrios MD Work Phone: Cardiology Comment on above: Paroxysmal atrial fi brillation (HCC) (Primary Dx); Pulmonary hypertension (HCC); Chronic diastolic congestive heart failure (HCC); Nonrheumatic mitral valve regurgitation; Hypertension, essential; Orthostatic hypotension; Thoracic aortic ectasia; Mixed hyperlipidemia Start: 02-15-2025 End: 02-17-2025 Telephone encounter Atul Harvey DO Work Phone: [facility] Comment on above: Patient Update; Home Health Point of Care Results Start: 02-13-2025 End: 02-13-[address] Kimmie Hussein MD -Laboratory, [place] Work Phone: Start: 02-13-2025 End: 02-14-2025 Refill Rasheed Barrios MD Work Phone: Cardiology Comment on above: Refill Request Start: 02-13-2025 End: 02-13-2025 ambulatory Kimmie Hussein Facility:[facility] Start: 02-08-2025 End: 02-09-2025 Telephone encounter Atul Harvey DO Work Phone: [facility] [employer] Comment on above: Medication Question Start: 02-07-2025 End: 02-08-2025 Telephone encounter Rasheed Barrios MD Work Phone: Cardiology Comment on above: Medication Problem; Patient Question Start: 02-07-2025 End: 02-07-2025 ambulatory ATUL Red HARVEY Facility:[facility] Start: 02-07-2025 End: 02-07-2025 Patient encounter procedure Atul Red Harvey DO Work Phone: [facility] [employer] Comment on above: Spleen laceration in to parenchyma, sequela (Primary Dx); Subclinical hypothyroidism; Paroxysmal atrial fibrillation (HCC); Hypokalemia; Generalized weakness; Hypertension, essential; Dyslipidemia; H/O splenectomy; Iron deficiency anemia, unspecified iron deficiency anemia type Start: 02-06-2025 End: 02-06-2025 ambulatory ATUL Red HARVEY Facility:[facility] Start: 01-27-2025 End: 01-30-2025 Telephone encounter Atul Hooveron DO Work Phone: [facility] Comment on above: Follow HH Orders Start: 01-26-2025 ambulatory Tate Bolton cility:[facility] Start: 01-26-2025 Registered Referred Tate Reynolds MD -[facility] Start: 01-24-2025 End: 01-24-[address] Tate Reynolds MD -[facility] Work Phone: Start: 01-24-2025 End: 01-24-[address] Atul Harvey DO Work Phone: [facility] Work Phone: Start: 01-24-2025 Registered Referred Tate Mancia Start: 01-19-2025 End: 01-19-[address] Atul Harvey DO Work Phone: [facility] Work Phone: Start: 01-19-2025 End: 01-19-2025 Patient encounter procedure Lori Nuñez [facility] Work Phone: Start: 01-18-2025 End: 01-18-2025 Patient encounter procedure Lori Nuñez [facility] Work Phone: Start: 01-18-2025 End: 01-18-[address] Atul Harvey DO Work Phone: [facility] Work Phone: Start: 01-18-2025 Registered Referred Tate Mancia Start: 01-17-2025 End: 01-17-[address] Atul Harvey DO Work Phone: [facility] Work Phone: Start: 01-17-2025 End: 01-17-2025 Patient encounter procedure Lori Nuñez [facility] Work Phone: Start: 01-17-2025 End: 01-18-2025 Telephone encounter Rasheed Barrios MD Work Phone: [facility] Comment on above: Patient Update; Appo intment Start: 01-10-2025 End: 01-11-2025 Telephone encounter Rasheed Barrios MD Work Phone: [facility] Start: 01-06-2025 End: 01-06-2025 ambulatory Esvin Ron GROCERY BAGGER Work Phone: Critical Care Start: 01-06-2025 End: 01-17-2025 Evaluation and management of inpatient ALI MALLAT Facility:[facility] Start: 01-06-2025 End: 01-06-2025 Emergency department patient visit Dr. Atul Harvey DO Work Phone: -Emergency Department Work Phone: Start: 12-27-2024 End: 01-12-2025 Telephone encounter Atul Harvey DO Work Phone: [facility] Comment on above: Home Health Call Start: 12-12-2024 End: 12-12-2024 Refill Atul Harvey DO Work Phone: [facility] Comment on above: Refill Request Start: 12-02-2024 End: 12-07-2024 Telephone encounter Atul Harvey DO Work Phone: [facility] Comment on above: Patient Update Start: 11-30-2024 End: 11-30-2024 ambulatory Yecenia Bradford RN Director Workforce Management Management Comment on above: [facility] Start: 11-21-2024 End: 11-21-[address] Kimmie Hussein MD -Laboratory, [place] Work Phone: Start: 11-21-2024 End: 11-21-2024 ambulatory Kimmie Hussein Facility:[facility] Start: 11-18-2024 End: 11-18-2024 Telephone encounter Atul Harvey DO Work Phone: [facility] Comment on above: Patient fall Start: 11-16-2024 End: 11-17-2024 Telephone encounter Atul Harvey DO Work Phone: [facility] Comment on above: Medication Question Start: 11-11-2024 End: 11-11-2024 ambulatory ATUL HARVEY Facility:[facility] Start: 11-11-2024 End: 11-11-2024 Patient encounter procedure Maria E Brewster APRN.GROCERY BAGGER Work Phone: [facility] Comment on above: Rhinosinusitis (Prim jeanne Dx) Start: 11-07-2024 End: 11-07-2024 Telephone follow-up Kirstin Reyes RN Work Phone: Director Workforce Management Management Comment on above: Transition Of Care ( [facility], Follow-up Day 20) Started Weekly phone contact (Recurring) for Transitional Care Management Start: 11-07-2024 End: 11-07-2024 ambulatory Kirstin Reyes RN Work Phone: Director Workforce Management Management Start: 11-07-2024 End: 11-07-2024 Patient encounter procedure Rasheed Barrios MD Work Phone: Cardiology Comment on above: Paroxysmal atrial fi brillation (HCC) (Primary Dx); Hypertension, essential; Chronic diastolic congestive heart failure (HCC); Thoracic aortic ectasia (HCC); Nonrheumatic mitral valve regurgitation; PVC (premature ventricular contraction); Pulmonary hypertension (HCC) Start: 10-26-2024 End: 10-26-2024 Telephone encounter Atul Harvey DO Work Phone: [facility] Comment on above: Patient Update; Lanette ent Question Start: 10-25-2024 End: 10-25-2024 ambulatory ATUL HARVEY Facility:[facility] Start: 10-25-2024 End: 10-25-2024 Patient encounter procedure Catalina Jauregui APRN.GROCERY BAGGER Work Phone: [facility] Comment on above: New onset a-fib (HCC ) (Primary Dx); Encounter for immunization; RSV (acute bronchiolitis due to respiratory syncytial virus); Generalized weakness; Decreased appetite Start: 10-24-2024 End: 10-24-2024 Patient Outreach Kirstin Reyes RN Work Phone: Director Workforce Management Management Comment on above: Transition Of Care ( [facility], Discharge 10/18/24) Initial phone contact for Transitional Care Management, Started Weekly phone contact (Recurring) for Transitional Care Management Start: 10-20-2024 End: 10-20-2024 Refill Atul Harvey DO Work Phone: [facility] Comment on above: Refill Request Start: 10-18-2024 Non-patient / Non-visit Dr. Rasheed small [facility] Work Phone: Start: 10-17-2024 Non-patient / Non-visit Dr. Dea Serna MD [facility] Start: 10-16-2024 Non-patient / Non-visit [facility] Start: 10-16-2024 Non-patient / Non-visit Dr. Rasheed small [facility] Work Phone: Start: 10-15-2024 Non-patient / Non-visit Dr. Rasheed small [facility] Work Phone: Start: 10-14-2024 Non-patient / Non-visit Dr. Rasheed small [facility] Work Phone: Start: 10-13-2024 ambulatory Atul Harvey Facilit y:[facility] Start: 10-13-2024 Non-patient / Non-visit [facility] Start: 10-12-2024 Non-patient / [facility] Work Phone: Start: 10-12-2024 End: 10-18-2024 Evaluation and management of inpatient Dr. Rasheed Ledezma MD -Progressive Care Unit Work Phone: Start: 10-12-2024 ambulatory Yuri Meeir Facility: [facility] Start: 10-12-2024 End: 10-12-2024 Patient encounter procedure Richard Pineda APRN.CNP Work Phone: [facility] Comment on above: SOB (shortness of br eath) (Primary Dx); Fever, unspecified fever cause Start: 10-12-2024 End: 10-12-2024 ambulatory ATUL HARVEY Facility:[facility] Start: 10-11-2024 End: 10-11-2024 Telephone encounter Atul L Harvey DO Work Phone: [facility] Comment on above: Patient Update Start: 10-06-2024 End: 10-07-2024 Telephone encounter Atul Neda Harvey DO Work Phone: [facility] Comment on above: Medication Question Start: 09-19-2024 End: 09-19-2024 ambulatory ATUL HOOVERON Facility:[facility] Start: 09-19-2024 End: 09-19-2024 Patient encounter procedure Phuc Marti MD Work Phone: Orthopaedics Comment on above: 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 (Primary Dx); Left wrist pain Start: 09-16-2024 End: 09-19-2024 ambulatory Mitesh Mccabe RN Work Phone: Director Workforce Management Management Comment on above: community monitoring outreach (Monthly cdm call) Start: 08-31-2024 End: 09-01-2024 Telephone encounter Atul Hooveron DO Work Phone: [facility] Start: 08-22-2024 End: 08-22-2024 Subsequent hospital visit by physician [facility] Work Phone: Radiology Comment on above: Left wrist pain [M25 .532] Start: 08-22-2024 End: 08-22-2024 ambulatory ATUL HOOVERON Facility:[facility] Start: 08-22-2024 End: 08-22-2024 Patient encounter procedure Atul Hooveron DO Work Phone: [facility] [place] Comment on above: Left wrist pain (Subha yared Dx); Hypertension, essential; Hypokalemia; Need for influenza vaccination; Dyslipidemia; Vitamin D deficiency; Subclinical hypothyroidism; Vitamin B12 deficiency; Fatty liver; IFG (impaired fasting glucose) Start: 08-22-2024 End: 08-22-2024 ambulatory ATUL HOOVERON Facility:[facility] Start: 08-16-2024 End: 08-16-2024 ambulatory CECILIA SKY Facility:[facility] Start: 08-12-2024 End: 08-15-2024 Telephone encounter Atul Harvey DO Work Phone: [facility] Comment on above: Lab Orders Start: 08-01-2024 End: 08-01-2024 ambulatory ATUL HARVEY Facility:[facility] Start: 08-01-2024 End: 08-01-2024 Patient encounter procedure Rasheed Barrios MD Work Phone: Cardiology Comment on above: Chronic diastolic co ngestive heart failure (HCC) (Primary Dx); Nonrheumatic mitral valve regurgitation; Thoracic aortic ectasia (HCC); Hypertension, essential; Dyslipidemia; Atrial arrhythmia; Pulmonary hypertension (HCC); Palpitations Start: 07-21-2024 End: 07-22-2024 ambulatory Mitesh Mccabe RN Work Phone: Director Workforce Management Management Comment on above: community monitoring outreach (Monthly cdm call) Start: 07-04-2024 End: 07-04-[facility] Start: 06-27-2024 End: 06-28-2024 ambulatory Mitesh Mccabe RN Work Phone: Director Workforce Management Management Comment on above: community monitoring outreach (Monthly cdm call) Start: 05-30-2024 End: 05-31-2024 ambulatory Mitesh Mccabe RN Work Phone: Director Workforce Management Management Comment on above: community monitoring outreach (Monthly cdm call) Start: 05-26-2024 End: 05-26-2024 Subsequent hospital visit by physician [facility] Work Phone: Radiology Comment on above: Fatty liver [K76.0] Start: 05-20-2024 End: 05-20-2024 Patient encounter procedure Milnaa Armijo STEAM FINISHER.GROCERY BAGGER Work Phone: [facility] Comment on above: Yeast dermatitis (Pr imary Dx) Start: 05-10-2024 Refill Atul Dowd elvia DO Work Phone: [facility] Comment on above: Refill Request Start: 05-04-2024 Telephone encounter Rasheed Barrios MD Work Phone: [facility] [place] Comment on above: Results Start: 05-02-2024 ambulatory Mitesh Mccabe RN Work Phone: Director Workforce Management Management Comment on above: community monitoring outreach (Monthly cdm call) Start: 04-06-2024 ambulatory Mitesh Mccabe RN Work Phone: Director Workforce Management Management Comment on above: community monitoring outreach (Monthly cdm call) Start: 03-18-2024 End: 03-18-2024 Patient encounter procedure Catalina Ramírez STEAM FINISHER.GROCERY BAGGER Work Phone: [facility] [employer] Comment on above: Wasp sting, accident al or unintentional, subsequent encounter (Primary Dx); Cellulitis of left upper extremity Start: 03-16-2024 ambulatory Atul gan DO Work Phone: [facility] [place] Comment on above: wasp sting Start: 03-16-2024 End: 03-16-2024 Patient encounter procedure Catalina Dunnutzman STEAM FINISHER.GROCERY BAGGER Work Phone: [facility] [place] Comment on above: Wasp sting, accident al or unintentional, initial encounter (Primary Dx); Cellulitis of left upper extremity Start: 03-12-2024 Refill Milana Armijo STEAM FINISHER.GROCERY BAGGER Work Phone: [facility] Comment on above: Med Change Request Start: 03-11-2024 Refill Atul gan DO Work Phone: [facility] [place] Comment on above: Refill Request Start: 03-03-2024 Refill Atul Dowd son DO Work Phone: [facility] [place] Comment on above: Refill Request Start: 03-02-2024 ambulatory Mitesh Mccabe RN Work Phone: Director Workforce Management Management Comment on above: community monitoring outreach (Monthly cdm call) Start: 02-23-2024 Telephone encounter Atul castañeda DO Work Phone: [facility] [place] Start: 02-23-2024 End: 02-23-2024 Subsequent hospital visit by physician [facility] Work Phone: Radiology Comment on above: Elevated LFTs [R79.8 9] Start: 02-21-2024 Refill Milana Armijo STEAM FINISHER.GROCERY BAGGER Work Phone: [facility] Comment on above: Refill Request Start: 02-17-2024 Telephone encounter Atul castañeda DO Work Phone: [facility] Comment on above: Results Start: 02-17-2024 End: 02-17-2024 Patient encounter procedure Atul Harvey DO Work Phone: [facility] Comment on above: IFG (impaired fastin g glucose) (Primary Dx); Dermatitis; Itching; Wasp sting, accidental or unintentional, initial encounter; Weight gain; Borderline abnormal thyroid function test; Elevated AST (SGOT); Rheumatoid arthritis involving multiple sites with positive rheumatoid factor (HCC); Calcified granuloma of lung (HCC); Stage 3b chronic kidney disease (HCC); Dyslipidemia Start: 02-05-2024 Refill Milana Armijo STEAM FINISHER.GROCERY BAGGER Work Phone: [facility] Comment on above: Refill Request Start: 01-26-2024 Telephone encounter Atul castañeda DO Work Phone: [facility] Start: 01-14-2024 Refill Atul gan DO Work Phone: [facility] Comment on above: Refill Request Start: 01-11-2024 ambulatory Mitesh Mccabe RN Work Phone: Director Workforce Management Management Comment on above: community monitoring outreach (Monthly cdm call) Start: 01-10-2024 Refill Milana Armijo STEAM FINISHER.GROCERY BAGGER Work Phone: [facility] Comment on above: Refill Request Start: 01-04-2024 End: 01-04-2024 ambulatory [facility] Work Phone: Start: 01-04-2024 End: 01-04-2024 Patient encounter procedure [facility] Work Phone: Start: 12-14-2023 ambulatory Mitesh Mccabe RN Work Phone: Director Workforce Management Management Comment on above: community monitoring outreach (Monthly cdm call) Refill Request Start: 11-18-2023 Refill Atul gan DO Work Phone: [facility] Comment on above: Refill Request Start: 11-16-2023 ambulatory Mitesh Mccabe RN Work Phone: Director Workforce Management Management Comment on above: community monitoring outreaach (Monthly cdm call) Start: 10-29-2023 End: 10-29-2023 Subsequent hospital visit by physician [facility] Work Phone: Radiology Comment on above: Productive cough [R0 5.8] Start: 09-30-2023 ambulatory Mitesh Mccabe RN Work Phone: Director Workforce Management Management Comment on above: community monitoring outreach (Monthly cdm call) Start: 09-02-2023 ambulatory Mitesh Mccabe RN Work Phone: Director Workforce Management Management Comment on above: community monitoring outreach (Monthly cdm call) Start: 08-10-2023 End: 08-10-2023 ambulatory [facility] Work Phone: Start: 08-10-2023 End: 08-10-2023 Patient encounter procedure [facility] Work Phone: Start: 08-05-2023 ambulatory Mitesh Mccabe RN Work Phone: Director Workforce Management Management Comment on above: community monitoring outreach (-cdm review) Start: 07-23-2023 Telephone encounter Atul castañeda DO Work Phone: [facility] [place] Comment on above: Patient Update Start: 07-13-2023 ambulatory Mitesh Mccabe RN Work Phone: Director Workforce Management Management Comment on above: community monitoring outreach (Monthly cdm call) Start: 06-25-2023 Telephone encounter Atul castañeda DO Work Phone: [facility] [place] Comment on above: Patient Update Start: 06-22-2023 Telephone encounter Atul castañeda DO Work Phone: [facility] Comment on above: Patient Question Start: 06-12-2023 ambulatory Mitesh Mccabe RN Work Phone: Director Workforce Management Management Comment on above: community monitoring outreach (Monthly cdm call) Start: 05-18-2023 ambulatory Mitesh Mccabe RN Work Phone: Director Workforce Management Management Comment on above: community monitoring outreach (Monthly cdm call) Start: 04-17-2023 Telephone encounter Fatimah Manzano STEAM FINISHER.GROCERY BAGGER Work Phone: [facility] Cardiology Comment on above: Results Start: 04-17-2023 End: 04-17-2023 Patient encounter procedure Echocardiogram Wstr Work Phone: Cardiology Comment on above: Palpitations Start: 04-13-2023 End: 04-13-2023 Patient encounter procedure Rasheed Barrios MD Work Phone: Cardiology Comment on above: Hypertension, essent ial (Primary Dx); Chronic diastolic congestive heart failure (HCC); Pulmonary hypertension (HCC); PVC (premature ventricular contraction); Thoracic aortic ectasia (HCC); Dyslipidemia; Palpitations Start: 03-18-2023 Telephone encounter Atul castañeda DO Work Phone: [facility] [place] Comment on above: Cough Start: 03-18-2023 End: 03-18-2023 Patient encounter procedure Areli Duncan STEAM FINISHER.GROCERY BAGGER Work Phone: [facility] [place] Comment on above: Acute bronchitis, un specified organism (Primary Dx) Start: 03-16-2023 ambulatory Mitesh Mccabe RN Work Phone: Director Workforce Management Management Comment on above: community monitoring outreach (Monthly cdm call) Start: 02-23-2023 Refill Atul gan DO Work Phone: [facility] [place] Comment on above: Refill Request Start: 02-02-2023 End: 02-02-2023 Patient encounter procedure Atul Harvey DO Work Phone: [facility] [place] Comment on above: Hypertension, essent ial (Primary Dx); Hypokalemia; Vitamin D deficiency; Alkaline phosphatase elevation; IFG (impaired fasting glucose); Dyslipidemia; Vitamin B12 deficiency; Stage 3b chronic kidney disease (HCC); Rheumatoid arthritis involving multiple sites with positive rheumatoid factor (HCC); Thoracic aortic ectasia (HCC); Pulmonary fibrosis, unspecified (HCC); Pulmonary hypertension (HCC) Start: 01-05-2023 Refill Atul gan DO Work Phone: [facility] Comment on above: Refill Request Start: 12-29-2022 Refill Atul gan DO Work Phone: [facility] Comment on above: Refill Request Start: 12-22-2022 ambulatory Katja Lo R N Work Phone: Director Workforce Management Management Comment on above: community monitoring outreach (Cdm telephonic outreach) Start: 12-15-2022 End: 12-15-2022 ambulatory [facility] Work Phone: Start: 12-15-2022 End: 12-15-2022 Patient encounter procedure [facility] Start: 12-03-2022 Refill Milana Armijo STEAM FINISHER.GROCERY BAGGER Work Phone: [facility] Comment on above: Refill Request Start: 11-28-2022 ambulatory Katja Lo R N Work Phone: Director Workforce Management Management Comment on above: community monitoring outreach (Cdm telephonic outreach) Start: 11-13-2022 End: 11-13-2022 ambulatory [facility] Work Phone: Start: 11-13-2022 End: 11-13-2022 Patient encounter procedure [facility] Start: 11-06-2022 Refill Milana Armijo STEAM FINISHER.GROCERY BAGGER Work Phone: [facility] Comment on above: Refill Request Start: 11-05-2022 ambulatory Katja Lo R N Work Phone: Director Workforce Management Management Comment on above: community monitoring outreach (Cdm telephonic outreach) Start: 10-28-2022 Refill Atul gan DO Work Phone: [facility] Comment on above: Refill Request Start: 10-22-2022 Telephone encounter Atul castañeda DO Work Phone: [facility] Medicine [place] Comment on above: Insurance Authorizat ion Start: 10-15-2022 ambulatory Katja Lo Kenneth Satnam Work Phone: Director Workforce Management Management Comment on above: community monitoring outreach (Cdm telephonic outreach) Start: 10-15-2022 Telephone encounter Atul castañeda DO Work Phone: [facility] [place] Comment on above: Medication Problem Start: 10-08-2022 End: 10-08-2022 Patient encounter procedure Christel Núñez PA-C Work Phone: General Surgery Comment on above: History of colonic p olyps (Primary Dx); Tubular adenoma Start: 10-07-2022 Telephone encounter Atul castañeda DO Work Phone: [facility] [place] Comment on above: Results Start: 10-01-2022 End: 10-01-2022 Subsequent hospital visit by physician [facility] Work Phone: Radiology Comment on above: Alkaline phosphatase elevation [R74.8] Start: 09-30-2022 End: 09-30-2022 Subsequent hospital visit by physician Preet Daly MD Work Phone: Ambulatory Surgery Comment on above: Screening for colon cancer [Z12.11] Start: 09-24-2022 Telephone encounter Atul castañeda DO Work Phone: [facility] [place] Comment on above: Results Start: 09-22-2022 ambulatory Katja Lo Kenneth Pena Work Phone: Director Workforce Management Management Comment on above: community monitoring outreach (Cdm telephonic outreach) Start: 09-16-2022 End: 09-16-2022 Patient encounter procedure Atul Red Harvey DO Work Phone: [facility] [place] Comment on above: Abdominal cramping ( Primary Dx); Functional diarrhea; Hypertension, essential; Alkaline phosphatase elevation; Vitamin D deficiency; IFG (impaired fasting glucose); Dyslipidemia; Stage 3b chronic kidney disease (HCC); Vitamin B12 deficiency; Rheumatoid arthritis involving multiple sites with positive rheumatoid factor (HCC) Start: 09-01-2022 Alphonse Onealawic k STEAM FINISHER.GROCERY BAGGER Work Phone: [facility] [place] Comment on above: Refill Request Start: 08-27-2022 ambulatory Katja Cooper Satnam Work Phone: Director Workforce Management Management Comment on above: community monitoring outreach (Cdm telephonic outreach) Start: 08-22-2022 ambulatory Katja Cooper Satnam Work Phone: Director Workforce Management Management Comment on above: community monitoring outreach (Cdm telephonic outreach) Start: 08-06-2022 End: 08-06-2022 Patient encounter procedure Christel Núñez PA-C Work Phone: General Surgery Comment on above: Encounter for screen ing for malignant neoplasm of colon (Primary Dx); History of colonic polyps Start: 07-31-2022 ambulatory Katja Cooper Satnam Work Phone: Director Workforce Management Management Comment on above: community monitoring outreach (Cdm telephonic outreach) Start: 07-17-2022 Documentation procedure Mammography Coordinator [facility] Start: 07-17-2022 Letter encounter Mammography Coordin ator [facility] Department Start: 07-17-2022 Telephone encounter Catalina Bolanos APRN.GROCERY BAGGER Work Phone: [facility] [place] Comment on above: Results Start: 07-17-2022 End: 07-17-2022 Subsequent hospital visit by physician [facility] Comment on above: Encounter for screen ing mammogram for malignant neoplasm of breast [Z12.31] Start: 07-11-2022 Telephone encounter Atul castañeda DO Work Phone: [facility] [place] Comment on above: Patient Request Start: 07-08-2022 End: 07-08-2022 Patient encounter procedure Atul Harvey DO Work Phone: [facility] [place] Comment on above: Hypertension, essent ial (Primary Dx); Need for influenza vaccination; Screening for depression; Encounter for screening mammogram for malignant neoplasm of breast; Alkaline phosphatase elevation; Screening for colon cancer; Vitamin D deficiency; Dyslipidemia; IFG (impaired fasting glucose); Rheumatoid arthritis involving multiple sites with positive rheumatoid factor (HCC); Stage 3b chronic kidney disease (HCC); Vitamin B12 deficiency; Pulmonary hypertension (HCC) Start: 07-04-2022 ambulatory Katja Lo R N Work Phone: Director Workforce Management Management Comment on above: community monitoring outreach (Cdm telephonic outreach) Start: 06-09-2022 Refill Atul gan DO Work Phone: [facility] Comment on above: Refill Request Start: 06-04-2022 ambulatory Katja Lo R N Work Phone: Director Workforce Management Management Comment on above: community monitoring outreach (Cdm telephonic outreach) Start: 05-28-2022 End: 05-28-2022 ambulatory [facility] Work Phone: Start: 05-28-2022 End: 05-28-2022 Patient encounter procedure [facility] Start: 05-07-2022 Refill Milana anders APRN.GROCERY BAGGER Work Phone: [facility] Comment on above: Refill Request Start: 04-25-2022 ambulatory Katja Lo R N Work Phone: Director Workforce Management Management Comment on above: community monitoring outreach (cdm telephonic outreach) Start: 04-10-2022 ambulatory Katja Lo R N Work Phone: Director Workforce Management Management Comment on above: community monitoring outreach (telephonic outreach) Start: 04-07-2022 Telephone encounter Atul castañeda DO Work Phone: [facility] Comment on above: Medication Problem Start: 04-02-2022 Refill Atul gan DO Work Phone: [facility] Comment on above: Refill Request Results Start: 03-31-2022 Telephone encounter Atul castañeda DO Work Phone: [facility] Comment on above: Results Start: 03-20-2022 ambulatory Katja Lo R N Work Phone: Director Workforce Management Management Comment on above: community monitoring outreach (telephonic outreach) Start: 03-11-2022 Refill Atul gan DO Work Phone: [facility] [place] Comment on above: Refill Request Start: 03-06-2022 ambulatory Katja Teresita Pena Work Phone: Director Workforce Management Management Comment on above: community monitoring outreach (telephonic outreach) Start: 02-06-2022 ambulatory Danielle Hagen RN Work Phone: Director Workforce Management Management Comment on above: Community Monitoring Outreach ([employer] Enrollement Outreach (4th attempt)) Start: 02-03-2022 End: 02-03-2022 Patient encounter procedure [facility] Start: 01-16-2022 Refill Atul gan DO Work Phone: [facility] [place] Comment on above: Refill Request Start: 10-02-2021 Telephone encounter Maria E Brewster APRN.GROCERY BAGGER Work Phone: [facility] Comment on above: Results Start: 09-27-2021 Telephone encounter Atul castañeda DO Work Phone: [facility] [place] Comment on above: Patient Update Start: 01-29-2021 End: 01-29-2021 Subsequent hospital visit by physician [facility] Work Phone: Radiology Comment on above: Neck pain, bilateral [M54.2] Procedures Date Procedure Procedure Detail Performing Clinician Start: 04-24-2025 Radiologic exam ches t 2 views Josef Martinez APRN.GROCERY BAGGER Work Phone: Start: 04-24-2025 Infectious agent dna /rna influenza 1st 2 types [facility] Provider Start: 04-24-2025 Sars-cov-2 detection by dna/rna [facility] Provider Start: 02-07-2025 H/O splenectomy H/O splenectomy Wily Harvey DO Work Phone: Start: 01-18-2025 Vitamin D, 25-hydrox y measurement Dr. Atul Harvey DO Work Phone: Comment on above: Vitamin D StatusDefi ciency: <20 ng/mL (50nmol/L)Insufficiency: 20-30 ng/mL (50-75 nmol/L)Sufficiency: 30-100 ng/mL (75-250 nmol/L)Toxicity: >100 ng/mL (>250 nmol/L) Start: 01-11-2025 Echocardiography LEONEL RAY LLAT Start: 01-06-2025 Antibody screen LEONEL PEREZ ESTRELLITA Comment on above: Order Comment: Speci men Type: BLOOD SPECIMENOrdering Facility: [facility] Address: [address] [place] [address] Performed By: #### T SCR ####[facility] BLOOD BANKCLIA [id number] [place] [address] [place] Start: 01-06-[address] Atul Harvey DO Work Phone: Start: 01-06-2025 Computed tomography of abdomen and pelvis with intravenous contrast Dr. Atul Harvey DO Work Phone: Start: 01-06-2025 CT angiography of ch est with contrast Dr. Atul Harvey DO Work Phone: Start: 01-06-2025 CT angiography of he ad and neck Dr. Atul Harvey DO Work Phone: Start: 01-06-2025 CT of head without contrast Dr. Atul Harvey DO Work Phone: Start: 11-21-2024 Measurement of renal function Dr. Atul Harvey DO Work Phone: Comment on above: GFR Calc Start: 10-13-[address] Dario Harvey DO Work Phone: Start: 10-13-2024 Sars-cov-2 Dr. Atul Harvey DO Work Phone: Start: 10-12-2024 CT angiography of ch est with contrast Dr. Atul Harvey DO Work Phone: Start: 10-12-2024 SARS-CoV-2, Influenz a & RSV (PCR) Dr. Atul Harvey DO Work Phone: Start: 10-12-2024 Plain chest X-ray Dr. Matthew Harvey DO Work Phone: Start: 08-01-2024 Ecg routine ecg w/le ast 12 lds i&r only [facility] Provider Start: 05-26-2024 Us abdominal real ti me w/image limited Atul Kaplanrison DO Work Phone: Start: 02-23-2024 Us abdominal real ti me w/image limited Atul Kaplanrison DO Work Phone: Start: 02-17-2024 Adult depression scr eening assessment Rasheed Barrios MD Work Phone: Start: 10-29-2023 Radiologic exam ches t 2 views Milana Armijo STEAM FINISHER.GROCERY BAGGER Work Phone: Start: 04-17-2023 Echo tthrc r-t 2d w/ wom-mode compl spec&colr d Rasheed Barrios MD Work Phone: Start: 12-15-2022 Ultrasonography of abdomen Start: 10-01-2022 Us abdominal real ti me w/image limited Atul Kaplanrison DO Work Phone: Start: 09-30-2022 Level iv surg pathol ogy gross&microscopic exam Preet Daly MD Work Phone: Start: 09-30-2022 Colonoscopy flx dx w /collj spec when pfrmd Atul Kaplanrison DO Work Phone: Start: 09-30-2022 Colonoscopy Christel navarro PA-C Work Phone: Start: 07-17-2022 Screening mammograph y bi 2-view breast inc cad Atul Neda KaplanHarvey DO Work Phone: Start: 07-08-2022 INFLUENZA SEASONAL QUADRIVALENT HIGH DOSE AGE 65+ Atul Kaplanrison DO Work Phone: Start: 01-29-2021 Radex spine cervical 4 or 5 views Atul Kaplanrison DO Work Phone: H/O splenectomy H/O splenectomy Atul Kaplanrison DO Work Phone: Plan of Treatment Date Care Activity Detail Author Start: 05-18-2028 Diabetes Screening Diabetes Screening [facility] Start: 02-07-2028 Diabetes Screening Diabetes Screening [facility] Start: 01-18-2028 Diabetes Screening Diabetes Screening [facility] Start: 01-13-2028 Diabetes Screening Diabetes Screening [facility] Start: 01-12-2028 Diabetes Screening Diabetes Screening [facility] Start: 01-07-2028 Diabetes Screening Diabetes Screening [facility] Start: 08-16-2027 Diabetes Screening Diabetes Screening [facility] Start: 02-08-2027 Diabetes Screening Diabetes Screening [facility] Start: 07-27-2026 Diabetes Screening Diabetes Screening [facility] Start: 01-26-2026 DIABETES SCREEN DIABETES SCREEN [facility] Start: 01-26-2026 Diabetes Screening Diabetes Screening [facility] Start: 09-30-2025 Colonoscopy COLONOSCOPY [facility] Start: 09-30-2025 COLORECTAL CANCER SCREENING COLORECTAL CANCER SCREENING [facility] Start: 09-30-2025 Screening for malignant neoplasm of colon [facility] Start: 09-12-2025 DIABETES SCREEN DIABETES SCREEN [facility] Start: 09-11-2025 End: 09-11-2025 Patient encounter procedure 09/11/2025 9:40 AM EST Office Visit [facility] [address] [place] [address] Atul Harvey DO [address] [place] [address] 4 month follow up [facility] Comment on above: 4 month follow up Start: 08-22-2025 Covid-19 Vaccine () Covid-19 Vaccine () [facility] Comment on above: Postponed from 06/12/2024 (Declined at t his time) Start: 07-17-2025 End: 07-17-2025 Patient encounter procedure 07/17/2025 10:20 AM EDT Office Visit Cardiology [address] [place] [address] Rasheed Barrios MD [address] [place], [place] [id number] month follow up Cardiology Comment on above: 6 month follow up Start: 07-01-2025 DIABETES SCREEN DIABETES SCREEN [facility] Start: 06-22-2025 End: 08-20-2025 CBC panel - Blood by Automated count COMPLETE BLOOD COUNT Lab Routine Iron deficiency anemia, unspecified iron deficiency anemia type Expected: 06/22/2025, Expires: 08/20/2025 [facility] Work Phone: Comment on above: Expected: 06/22/2025, Expires: Start: 06-22-2025 End: 09-20-2025 Iron and Iron binding capacity panel - Serum or Plasma IRON AND TIBC Lab Routine Iron deficiency anemia, unspecified iron deficiency anemia type Expected: 06/22/2025, Expires: 09/20/2025 [facility] Comment on above: Expected: 06/22/2025, Expires: Start: 06-12-2025 Influenza vaccination Influenza Vaccine (#1) [facility] Start: 05-22-2025 End: 05-22-2025 Patient encounter procedure 05/22/2025 1:40 PM EDT Office Visit Family Xavier Camacho [address] [place], [place] [id number] Atul Harvey DO [address] [place], [place] [id number] 3 month follow up [facility] Xavier Camacho Comment on above: 3 month follow up Start: 05-09-2025 End: 08-08-2025 CBC panel - Blood by Automated count COMPLETE BLOOD COUNT Lab Routine Iron deficiency anemia, unspecified iron deficiency anemia type Expected: 05/09/2025, Expires: 08/08/2025 [facility] Comment on above: Expected: 05/09/2025, Expires: Start: 05-09-2025 End: 08-08-2025 Comprehensive metabolic 2000 panel - Serum or Plasma COMPREHENSIVE METABOLIC PANEL Lab Routine Hypokalemia Generalized weakness Hypertension, essential Iron deficiency anemia, unspecified iron deficiency anemia type Expected: 05/09/2025, Expires: 08/08/2025 [facility] Work Phone: Comment on above: Expected: 05/09/2025, Expires: Start: 05-09-2025 End: 08-08-2025 Iron and Iron binding capacity panel - Serum or Plasma IRON AND TIBC Lab Routine Iron deficiency anemia, unspecified iron deficiency anemia type Expected: 05/09/2025, Expires: 08/08/2025 [facility] Comment on above: Expected: 05/09/2025, Expires: Start: 05-09-2025 End: 08-08-2025 Thyrotropin [Units/volume] in Serum or Plasma THYROID STIMULATING HORMONE Lab Routine Subclinical hypothyroidism Expected: 05/09/2025, Expires: 08/08/2025 [facility] Comment on above: Expected: 05/09/2025, Expires: Start: 05-09-2025 End: 08-08-2025 Thyroxine (T4) free [Mass/volume] in Serum or Plasma T4 FREE/FREE THYROXINE Lab Routine Subclinical hypothyroidism Expected: 05/09/2025, Expires: 08/08/2025 [facility] Comment on above: Expected: 05/09/2025, Expires: Start: 03-27-2025 DIABETES SCREEN DIABETES SCREEN [facility] Start: 03-27-2025 End: 03-27-2025 Patient encounter procedure 03/27/2025 9:00 AM EDT Office Visit Cardiology [address] [place] [address] Rasheed Barrios MD [address] [id number] follow up Cardiology Comment on above: follow up Start: 03-10-2025 Meningococcal Conjugate Vaccine (2 - Risk 2-dose series) Meningococcal Conjugate Vaccine (2 - Risk 2-dose series) [facility] Start: 02-19-2025 End: 05-21-2025 25-hydroxyvitamin D3 [Mass/volume] in Serum or Plasma VITAMIN D 25 HYDROXY Lab Routine Vitamin D deficiency Expected: 02/19/2025, Expires: 05/21/2025 [facility] Comment on above: Expected: 02/19/2025, Expires: Start: 02-19-2025 End: 05-21-2025 CBC panel - Blood by Automated count COMPLETE BLOOD COUNT Lab Routine Subclinical hypothyroidism Expected: 02/19/2025, Expires: 05/21/2025 [facility] Comment on above: Expected: 02/19/2025, Expires: Start: 02-19-2025 End: 05-21-2025 Cobalamin (Vitamin B12) [Mass/volume] in Serum or Plasma VITAMIN B12 Lab Routine Vitamin B12 deficiency Expected: 02/19/2025, Expires: 05/21/2025 [facility] Comment on above: Expected: 02/19/2025, Expires: Start: 02-19-2025 End: 05-21-2025 Comprehensive metabolic 2000 panel - Serum or Plasma COMPREHENSIVE METABOLIC PANEL Lab Routine Subclinical hypothyroidism Expected: 02/19/2025, Expires: 05/21/2025 [facility] Comment on above: Expected: 02/19/2025, Expires: Start: 02-19-2025 End: 05-21-2025 Hemoglobin A1c in Blood HEMOGLOBIN A1C Lab Routine IFG (impaired fasting glucose) Expected: 02/19/2025, Expires: 05/21/2025 [facility] Comment on above: Expected: 02/19/2025, Expires: Start: 02-19-2025 End: 05-21-2025 Lipid 1996 panel - Serum or Plasma LIPID PANEL BASIC Lab Routine Dyslipidemia Expected: 02/19/2025, Expires: 05/21/2025 [facility] Comment on above: Expected: 02/19/2025, Expires: Start: 02-19-2025 End: 05-21-2025 Thyrotropin [Units/volume] in Serum or Plasma THYROID STIMULATING HORMONE Lab Routine Subclinical hypothyroidism Expected: 02/19/2025, Expires: 05/21/2025 [facility] Comment on above: Expected: 02/19/2025, Expires: Start: 02-16-2025 Anxiety Screening Anxiety Screening [facility] Start: 02-16-2025 Depression Screening Depression Screening [facility] Start: 02-13-2025 End: 02-13-2025 Patient encounter procedure 02/13/2025 1:00 PM EDT Office Visit Cardiology [address] [place] [address] Rasheed Barrios MD [address] [place] [place] [address] Unstable BP/HR, review medications (OK per 01/17/25 tele enc) Cardiology Comment on above: Unstable BP/HR, review medications (OK p er 01/17/25 tele enc) Start: 02-09-2025 Meningococcal B Vaccine (2 of 5 - Increased Risk Bexsero 3-dose series) Meningococcal B Vaccine (2 of 5 - Increased Risk Bexsero 3-dose series) [facility] Start: 02-07-2025 End: 05-09-2025 Measles virus IgG Ab [Units/volume] in Serum MEASLES IGG ANTIBODY Lab Routine Spleen laceration into parenchyma, sequela H/O splenectomy Expected: 02/07/2025, Expires: 05/09/2025 [facility] Comment on above: Expected: 02/07/2025, Expires: Start: 02-07-2025 End: 02-07-2025 Patient encounter procedure 02/07/2025 10:00 AM EDT Office Visit [facility] [address] [place] [address] Atul Harvey DO [address] [place] [address] 6 month follow up [facility] Comment on above: 6 month follow up Start: 01-17-2025 End: 01-17-2025 Patient encounter procedure 01/17/2025 2:30 PM EDT Office Visit [facility] [address] [place] [id number] Prabhu Villanueva MD [address] [facility] [place] [address] meningioma [facility] Comment on above: meningioma Start: 01-06-2025 [facility] Start: 01-06-2025 Leukocyte reduced red blood cells [facility] Start: 01-06-2025 End: 01-06-2025 [facility] Start: 01-06-2025 End: 01-06-2025 Administration of blood product [facility] Start: 01-06-2025 Oxygen therapy [facility] Start: 11-25-2024 DIABETES SCREEN DIABETES SCREEN [facility] Start: 11-07-2024 End: 11-07-2024 Patient encounter procedure Cardiology Comment on above: follow up 3 month Start: 10-25-2024 End: 10-25-2024 Patient encounter procedure 10/25/2024 10:20 AM EST Office Visit [facility] [address] [place] [address] Catalina Jauregui APRN.GROCERY BAGGER [address] [place] [id number] [facility] hosp D/C 10/18/2024 [facility] Comment on above: [facility] hosp D/C 10/18/2024 [facility] Start: 10-23-2024 Covid-19 Vaccine () Covid-19 Vaccine () [facility] Comment on above: Postponed from 09/28/2023 (Declined at t his time) Start: 10-18-2024 Patient discharge [facility] Start: 10-16-2024 Referral to boring mill operator for metal [facility] Start: 10-15-2024 Care planning and problem solving actions [facility] Start: 10-15-2024 [facility] Start: 10-13-2024 End: 10-14-2024 [facility] Start: 10-13-2024 Oxygen therapy [facility] Start: 10-13-2024 Care planning and problem solving actions [facility] Start: 10-13-2024 End: 10-13-2024 Care planning and problem solving actions [facility] Start: 10-13-2024 Respiratory secretion precautions [facility] Start: 10-13-2024 Inhalation therapy procedure [facility] Start: 10-12-2024 End: 10-13-2024 [facility] Start: 10-12-2024 Following clinical pathway protocol [facility] Start: 10-12-2024 Ambulation without limitation [facility] Start: 10-12-2024 Assessment of risk of venous thromboembolism [facility] Start: 10-12-2024 Insertion of catheter into peripheral vein [facility] Start: 10-12-2024 Measuring intake and output [facility] Start: 10-12-2024 Providing care according to standard [facility] Start: 10-12-2024 Admission procedure [facility] Start: 10-12-2024 Medicare Advantage Annual Wellness Visit Medicare Advantage Annual Wellness Visit [facility] Start: 09-19-2024 End: 09-19-2024 Patient encounter procedure 09/19/2024 3:00 PM EST Office Visit Orthopaedics [address] [place] [address] Phuc Marti MD [address] [place] [address] Left wrist pain [M25.532] Orthopaedics Comment on above: Left wrist pain [M25.532] Start: 09-12-2024 End: 09-12-2024 Patient encounter procedure 09/12/2024 2:15 PM EST Office Visit Orthopaedics [address] [place] [address] Phuc Marti MD [address] [place] [address] Left wrist pain [M25.532] Orthopaedics Comment on above: Left wrist pain [M25.532] Start: 08-22-2024 End: 08-22-2024 Patient encounter procedure 08/22/2024 9:40 AM EST Office Visit [facility] [address] [place] [address] Atul Harvey, [address] [place] [address] 6 Month follow up [facility] Comment on above: 6 Month follow up Start: 08-15-2024 End: 04-10-2025 25-hydroxyvitamin D3 [Mass/volume] in Serum or Plasma VITAMIN D 25 HYDROXY Lab Routine Vitamin D deficiency Expected: 08/15/2024 (Approximate), Expires: 04/10/2025 [facility] Comment on above: Expected: 08/15/2024 (Approximate), Expi res: 04/10/2025 Start: 08-15-2024 End: 04-10-2025 CBC panel - Blood by Automated count COMPLETE BLOOD COUNT Lab Routine Vitamin B12 deficiency Vitamin D deficiency Expected: 08/15/2024 (Approximate), Expires: 04/10/2025 [facility] Comment on above: Expected: 08/15/2024 (Approximate), Expi res: 04/10/2025 Start: 08-15-2024 End: 04-10-2025 Cobalamin (Vitamin B12) [Mass/volume] in Serum or Plasma VITAMIN B12 Lab Routine Vitamin B12 deficiency Expected: 08/15/2024 (Approximate), Expires: 04/10/2025 [facility] Comment on above: Expected: 08/15/2024 (Approximate), Expi res: 04/10/2025 Start: 08-15-2024 End: 04-10-2025 Comprehensive metabolic 2000 panel - Serum or Plasma COMPREHENSIVE METABOLIC PANEL Lab Routine Dyslipidemia IFG (impaired fasting glucose) Expected: 08/15/2024 (Approximate), Expires: 04/10/2025 [facility] Comment on above: Expected: 08/15/2024 (Approximate), Expi res: 04/10/2025 Start: 08-15-2024 End: 04-10-2025 Hemoglobin A1c in Blood HEMOGLOBIN A1C Lab Routine IFG (impaired fasting glucose) Expected: 08/15/2024 (Approximate), Expires: 04/10/2025 [facility] Comment on above: Expected: 08/15/2024 (Approximate), Expi res: 04/10/2025 Start: 08-15-2024 End: 04-10-2025 Lipid 1996 panel - Serum or Plasma LIPID PANEL BASIC Lab Routine Dyslipidemia Expected: 08/15/2024 (Approximate), Expires: 04/10/2025 [facility] Comment on above: Expected: 08/15/2024 (Approximate), Expi res: 04/10/2025 Start: 08-15-2024 End: 04-10-2025 Thyrotropin [Units/volume] in Serum or Plasma THYROID STIMULATING HORMONE Lab Routine Elevated TSH Expected: 08/15/2024 (Approximate), Expires: 04/10/2025 [facility] Comment on above: Expected: 08/15/2024 (Approximate), Expi res: 04/10/2025 Start: 08-15-2024 End: 04-10-2025 Thyroxine (T4) free [Mass/volume] in Serum or Plasma T4 FREE/FREE THYROXINE Lab Routine Elevated TSH Expected: 08/15/2024 (Approximate), Expires: 04/10/2025 [facility] Comment on above: Expected: 08/15/2024 (Approximate), Expi res: 04/10/2025 Start: 08-15-2024 End: 04-10-2025 Triiodothyronine (T3) [Mass/volume] in Serum or Plasma T3 Lab Routine Elevated TSH Expected: 08/15/2024 (Approximate), Expires: 04/10/2025 [facility] Work Phone: Comment on above: Expected: 08/15/2024 (Approximate), Expi res: 04/10/2025 Start: 08-03-2024 RSV Vaccine (1 - 1-dose 60+ series) RSV Vaccine (1 - 1-dose 60+ series) [facility] Comment on above: Postponed from 1999 (Declined at t his time) Start: 08-03-2024 RSV Vaccine (1 - 1-dose 75+ series) RSV Vaccine (1 - 1-dose 75+ series) [facility] Comment on above: Postponed from 2014 (Declined at t his time) Start: 08-03-2024 Urine microalbumin profile DTaP,Tdap,Td Vaccine (3 - Td or Tdap) [facility] Comment on above: Postponed from 02/24/2022 (Declined at t his time) Start: 08-01-2024 End: 08-01-2024 Patient encounter procedure 08/01/2024 10:40 AM EDT Office Visit Cardiology [address] [place] [id number] Rasheed Barrios MD [address] [id number] 6 month follow up Cardiology Comment on above: 6 month follow up Start: 06-12-2024 Covid-19 Vaccine ( season) Covid-19 Vaccine ( season) [facility] Start: 06-12-2024 Covid-19 Vaccine ( season) Covid-19 Vaccine () [facility] Start: 06-12-2024 Influenza vaccination Influenza Vacc[facility] (#[facility]) [facility] Start: 05-26-2024 End: 05-26-2024 Patient encounter procedure 05/26/2024 9:15 AM EDT Appointment Radiology [address] [place] [address] Fatty liver [K76.0] Radiology Comment on above: Fatty liver [K76.0] Start: 05-03-2024 End: 05-03-2024 Patient encounter procedure 05/03/2024 9:40 AM EDT Office Visit Cardiology [address] [place] [address] Chronic diastolic congestive heart failure (HCC) [I50.32] Cardiology Comment on above: Chronic diastolic congestive heart failu re (HCC) [I50.32] Start: 03-20-2024 End: 06-19-2024 Thyrotropin [Units/volume] in Serum or Plasma THYROID STIMULATING HORMONE Lab Routine Subclinical hypothyroidism Expected: 03/20/2024, Expires: 06/19/2024 [facility] Work Phone: Comment on above: Expected: 03/20/2024, Expires: Start: 03-20-2024 End: 06-19-2024 Thyroxine (T4) free [Mass/volume] in Serum or Plasma T4 FREE/FREE THYROXINE Lab Routine Subclinical hypothyroidism Expected: 03/20/2024, Expires: 06/19/2024 [facility] Comment on above: Expected: 03/20/2024, Expires: Start: 03-18-2024 End: 03-18-2024 Patient encounter procedure 03/18/2024 8:20 AM EDT Office Visit [facility] [address] [place] [address] Catalina Jauregui APRN.GROCERY BAGGER [address] [place] [address] Cellulitis [facility] Comment on above: Cellulitis Start: 02-23-2024 End: 02-23-2024 Patient encounter procedure 02/23/2024 7:45 AM EDT Appointment Radiology [address] [place] [address] Pelvic pain in female [R10.2] Radiology Comment on above: Pelvic pain in female [R10.2] Start: 02-17-2024 End: 02-17-2024 Patient encounter procedure 02/17/2024 9:40 AM EDT Office Visit [facility] [address] [place] [address] Atul Harvey, [address] [place] [address] 6 month follow up [facility] Comment on above: 6 month follow up Start: 01-27-2024 End: 04-27-2024 25-hydroxyvitamin D3 [Mass/volume] in Serum or Plasma VITAMIN D 25 HYDROXY Lab Routine Vitamin D deficiency Expected: 01/27/2024, Expires: 04/27/2024 [facility] Work Phone: Comment on above: Expected: 01/27/2024, Expires: Start: 01-27-2024 End: 04-27-2024 CBC panel - Blood by Automated count COMPLETE BLOOD COUNT Lab Routine IFG (impaired fasting glucose) Dyslipidemia Expected: 01/27/2024, Expires: 04/27/2024 [facility] Work Phone: Comment on above: Expected: 01/27/2024, Expires: Start: 01-27-2024 End: 04-27-2024 Cobalamin (Vitamin B12) [Mass/volume] in Serum or Plasma VITAMIN B12 Lab Routine Vitamin B12 deficiency Expected: 01/27/2024, Expires: 04/27/2024 [facility] Work Phone: Comment on above: Expected: 01/27/2024, Expires: Start: 01-27-2024 End: 04-27-2024 Comprehensive metabolic 2000 panel - Serum or Plasma COMPREHENSIVE METABOLIC PANEL Lab Routine IFG (impaired fasting glucose) Dyslipidemia Expected: 01/27/2024, Expires: 04/27/2024 [facility] Work Phone: Comment on above: Expected: 01/27/2024, Expires: Start: 01-27-2024 End: 04-27-2024 Hemoglobin A1c in Blood HEMOGLOBIN A1C Lab Routine Pre-diabetes IFG (impaired fasting glucose) Expected: 01/27/2024, Expires: 04/27/2024 [facility] Work Phone: Comment on above: Expected: 01/27/2024, Expires: Start: 01-27-2024 End: 04-27-2024 Lipid 1996 panel - Serum or Plasma LIPID PANEL BASIC Lab Routine Dyslipidemia Expected: 01/27/2024, Expires: 04/27/2024 [facility] Work Phone: Comment on above: Expected: 01/27/2024, Expires: Start: 10-12-2023 Behavioral Health Screening Behavioral Health Screening [facility] Start: 09-28-2023 Covid-19 Vaccine ( season) Covid-19 Vaccine () [facility] Start: 08-06-2023 End: 10-06-2023 25-hydroxyvitamin D3 [Mass/volume] in Serum or Plasma VITAMIN D 25 HYDROXY Lab Routine Vitamin D deficiency Expected: 08/06/2023, Expires: 10/06/2023 [facility] Work Phone: Comment on above: Expected: 08/06/2023, Expires: Start: 08-06-2023 End: 10-06-2023 CBC panel - Blood by Automated count CBC Lab Routine IFG (impaired fasting glucose) Dyslipidemia Expected: 08/06/2023, Expires: 10/06/2023 [facility] Work Phone: Comment on above: Expected: 08/06/2023, Expires: 3 Start: 08-06-2023 End: 10-06-2023 Cobalamin (Vitamin B12) [Mass/volume] in Serum or Plasma VITAMIN B12 BLOOD Lab Routine Vitamin B12 deficiency Expected: 08/06/2023, Expires: 10/06/2023 [facility] Work Phone: Comment on above: Expected: 08/06/2023, Expires: 3 Start: 08-06-2023 End: 10-06-2023 Comprehensive metabolic 2000 panel - Serum or Plasma COMP METABOLIC PANEL Lab Routine IFG (impaired fasting glucose) Dyslipidemia Expected: 08/06/2023, Expires: 10/06/2023 [facility] Work Phone: Comment on above: Expected: 08/06/2023, Expires: 3 Start: 08-06-2023 End: 10-06-2023 Hemoglobin A1c in Blood HGB A1C Lab Routine IFG (impaired fasting glucose) Expected: 08/06/2023, Expires: 10/06/2023 [facility] Work Phone: Comment on above: Expected: 08/06/2023, Expires: 3 Start: 08-06-2023 End: 10-06-2023 Lipid 1996 panel - Serum or Plasma LIPID PANEL BASIC Lab Routine Dyslipidemia Expected: 08/06/2023, Expires: 10/06/2023 [facility] Work Phone: Comment on above: Expected: 08/06/2023, Expires: 3 Start: 06-12-2023 Covid-19 Vaccine () Covid-19 Vaccine () [facility] Start: 06-12-2023 Influenza vaccination [facility] Start: 12-15-2022 End: 02-14-2023 25-hydroxyvitamin D3 [Mass/volume] in Serum or Plasma VITAMIN D 25 HYDROXY Lab Routine Vitamin D deficiency Expected: 12/15/2022, Expires: 02/14/2023 [facility] Work Phone: Comment on above: Expected: 12/15/2022, Expires: 3 Start: 12-15-2022 End: 02-14-2023 CBC panel - Blood by Automated count CBC Lab Routine Stage 3b chronic kidney disease (HCC) Rheumatoid arthritis involving multiple sites with positive rheumatoid factor (HCC) Expected: 12/15/2022, Expires: 02/14/2023 [facility] Work Phone: Comment on above: Expected: 12/15/2022, Expires: 3 Start: 12-15-2022 End: 02-14-2023 Cobalamin (Vitamin B12) [Mass/volume] in Serum or Plasma VITAMIN B12 BLOOD Lab Routine Vitamin B12 deficiency Expected: 12/15/2022, Expires: 02/14/2023 [facility] Work Phone: Comment on above: Expected: 12/15/2022, Expires: 3 Start: 12-15-2022 End: 02-14-2023 Comprehensive metabolic 2000 panel - Serum or Plasma COMP METABOLIC PANEL Lab Routine Stage 3b chronic kidney disease (HCC) Rheumatoid arthritis involving multiple sites with positive rheumatoid factor (HCC) Expected: 12/15/2022, Expires: 02/14/2023 [facility] Work Phone: Comment on above: Expected: 12/15/2022, Expires: 3 Start: 12-15-2022 End: 02-14-2023 Hemoglobin A1c in Blood HGB A1C Lab Routine IFG (impaired fasting glucose) Expected: 12/15/2022, Expires: 02/14/2023 [facility] Work Phone: Comment on above: Expected: 12/15/2022, Expires: 3 Start: 12-15-2022 End: 02-14-2023 Lipid 1996 panel - Serum or Plasma LIPID PANEL BASIC Lab Routine Dyslipidemia Expected: 12/15/2022, Expires: 02/14/2023 [facility] Work Phone: Comment on above: Expected: 12/15/2022, Expires: 3 Start: 10-31-2022 COVID-19 VACCINE (5 - Pfizer risk series) COVID-19 VACCINE (5 - Pfizer risk series) [facility] Start: 10-12-2022 DEPRESSION ASSESSMENT DEPRESSION ASSESSMENT [facility] Start: 09-07-2022 End: 11-07-2022 Comprehensive metabolic 2000 panel - Serum or Plasma COMP METABOLIC PANEL Lab Routine Alkaline phosphatase elevation Expected: 09/07/2022, Expires: 11/07/2022 [facility] Work Phone: Comment on above: Expected: 09/07/2022, Expires: 3 Start: 09-07-2022 End: 11-07-2022 Lactate dehydrogenase [Enzymatic activity/volume] in Serum or Plasma LD LACTATE DEHYDRO Lab Routine Alkaline phosphatase elevation Expected: 09/07/2022, Expires: 11/07/2022 [facility] Work Phone: Comment on above: Expected: 09/07/2022, Expires: 3 Start: 09-07-2022 End: 11-07-2022 PROTEIN ELECTROPHORESIS SERUM W/INTERP PROTEIN ELECTROPHORESIS SERUM W/INTERP Lab Routine Alkaline phosphatase elevation Expected: 09/07/2022, Expires: 11/07/2022 [facility] Work Phone: Comment on above: Expected: 09/07/2022, Expires: 3 Start: 06-12-2022 Influenza vaccination INFLUENZA (#1) [facility] Start: 02-24-2022 Urine microalbumin profile [facility] Start: 11-27-2021 COVID-19 VACCINE (4 - Booster for Pfizer series) COVID-19 VACCINE (4 - Booster for Pfizer series) [facility] Start: 11-19-2021 COVID-19 VACCINE (4 - Booster for Pfizer series) COVID-19 VACCINE (4 - Booster for Pfizer series) [facility] Start: 10-22-2021 COVID-19 VACCINE (4 - Booster for Pfizer series) COVID-19 VACCINE (4 - Booster for Pfizer series) [facility] Start: 10-12-2021 ADVANCE DIRECTIVE DISCUSSION ADVANCE DIRECTIVE DISCUSSION [facility] Start: 11-15-2015 PNEUMOCOCCAL: 65+ (3 - PPSV23 or PCV20) PNEUMOCOCCAL: 65+ (3 - PPSV23 or PCV20) [facility] Start: 2014 RSV Vaccine (1 - 1-dose 75+ series) RSV Vaccine (1 - 1-dose 75+ series) [facility] Start: 12-16-2006 Screening for malignant neoplasm of cervix Cervical Cancer Screening [facility] Start: 1984 COLOGUARD (FIT-DNA) COLOGUARD (FIT-DNA) [facility] Start: [address] COLONOGRAPHY [facility] Start: 1984 FECAL OCCULT BLOOD FECAL OCCULT BLOOD [facility] Start: 1984 Screening for malignant neoplasm of colon [facility] Start: 1984 SIGMOIDOSCOPY SIGMOIDOSCOPY [facility] [facility] COVID & INFLUENZA A/ B & RSV PCR, ROUTINE COVID & INFLUENZA A/B & RSV PCR, ROUTINE Microbiology Routine URI, acute 04/24/2025 12:44 PM EDT [facility] COVID-19 MOLECULAR (POC) COVID-1 9 MOLECULAR (POC) Microbiology Routine URI, acute Ordered: 04/24/2025 [facility] Work Phone: Comment on above: Ordered: 04/24/2025 End: 04-13-2024 Echocardiography ECHO Cardiology Routine Palpitations 1 Occurrences starting 04/13/2023 until 04/13/2024 [facility] Work Phone: Comment on above: 1 Occurrences starting 04/13/2023 until 04/13/2024 INFLUENZA A&B MOLECU LAR (POC) INFLUENZA A&B MOLECULAR (POC) Microbiology Routine URI, acute Ordered: 04/24/2025 [facility] Comment on above: Ordered: 04/24/2025 OUTSIDE VENDOR CARDI AC OUTPATIENT EXTENDED RHYTHM RECORDING (WITHOUT TELEMETRY) OUTSIDE VENDOR CARDIAC OUTPATIENT EXTENDED RHYTHM RECORDING (WITHOUT TELEMETRY) Holter Routine Atrial arrhythmia Palpitations Ordered: 08/01/2024 [facility] Work Phone: Comment on above: Ordered: 08/01/2024 Patient referral [facility] Work Phone: End: 07-08-2023 Screening colonoscopy COLONOSCOPY SCREENING Endoscopy Routine Screening for colon cancer 1 Occurrences starting 07/08/2022 until 07/08/2023 [facility] Work Phone: Comment on above: 1 Occurrences starting 07/08/2022 until 07/08/2023 End: 08-07-2023 Screening mammography bi 2-view breast inc cad WILLI SCREENING Radiology Routine Encounter for screening mammogram for malignant neoplasm of breast 1 Occurrences starting 07/08/2022 until 08/07/2023 [facility] Work Phone: Comment on above: 1 Occurrences starting 07/08/2022 until 08/07/2023 End: 03-24-2025 US Abdomen RUQ US ABD RIGHT UPPER QUADRANT Radiology Routine Fatty liver 1 Occurrences starting 02/23/2024 until 03/24/2025 [facility] Work Phone: Comment on above: 1 Occurrences starting 02/23/2024 until 03/24/2025 End: 09-21-2025 XR Wrist - left PA and Lateral and Oblique XR WRIST GENERAL 3V PA/LAT/OBL LEFT Radiology Routine Left wrist pain 1 Occurrences starting 08/22/2024 until 09/21/2025 [facility] Work Phone: Comment on above: 1 Occurrences starting 08/22/2024 until 09/21/2025 XR Wrist - left PA a nd Lateral and Oblique XR WRIST GENERAL 3V PA/LAT/OBL LEFT Radiology Routine Left wrist pain 08/22/2024 11:47 AM EST [facility] Immunizations Immunization Date Immunization Notes Care Provider Fa [facility] 01-13-2025 haemophilus influenz ae type b vaccine, PRP-T conjugate Rasheed Barrios MD Work Phone: [facility] 01-13-2025 meningococcal (MenACWY-TT) vaccine, quadrivalent (MENQUADFI) Rasheed Barrios MD Work Phone: [facility] 01-12-2025 meningococcal B vacc ine, recombinant, OMV, adjuvanted Rashede Barrios MD Work Phone: [facility] 01-12-2025 pneumococcal conjuga te (PCV20) vaccine, 20 valent (PREVNAR 20) Rasheed Barrios MD Work Phone: [facility] 12-05-2024 respiratory syncytia l virus (RSV) vaccine, adjuvanted (AREXVY) Atul Harvey DO Work Phone: [facility] 08-22-2024 influenza, high dose seasonal, preservative-free Atul Harvey DO Work Phone: [facility] 08-22-2024 influenza virus vacc ine, unspecified formulation Josef Martinez APRN.GROCERY BAGGER Work Phone: [facility] 08-03-2023 COVID-19 vaccine, ag e 12+ yr, season (YouLicense) Mitesh Mccabe RN Work Phone: [facility] 08-03-2023 influenza (HD-IIV4) vaccine, age 65+ yr, high dose, quadrivalent, PF (FLUZONE HIGH-DOSE) Mitesh Mccabe RN Work Phone: [facility] 08-03-2023 influenza virus vacc ine, unspecified formulation Mitesh Mccabe RN Work Phone: [facility] 02-02-2023 pneumococcal (PCV20) vaccine, 20 valent (PREVNAR 20) Atul Harvey DO Work Phone: [facility] Work Phone: 02-02-2023 pneumococcal Conjuga te, unspecified formulation Atul Harvey DO Work Phone: [facility] Work Phone: 07-08-2022 influenza, high-dose , quadrivalent vaccine (FLUZONE HIGH DOSE QUADRIVALENT) Atul Kaplanrison DO Work Phone: [facility] Work Phone: 07-08-2022 influenza virus vacc ine, unspecified formulation Atul Kaplanrison DO Work Phone: [place] [id number] COVID-19 vaccine, ag e 12+ yr (PFIZER-BIONTECH - PURPLE TOP) Atul Harvey DO Work Phone: [facility] Work Phone: 08-13-2021 influenza, high-dose , quadrivalent vaccine (FLUZONE HIGH DOSE QUADRIVALENT) Atul Harvey DO Work Phone: [facility] Work Phone: 12-06-2020 COVID-19 vaccine, ag e 12+ yr (PFIZER-BIONTECH - PURPLE TOP) Atul Harvey DO Work Phone: [facility] Work Phone: 11-09-2020 COVID-19 vaccine, ag e 12+ yr (PFIZER-BIONTECH - PURPLE TOP) Atul Harvey DO Work Phone: [facility] Work Phone: 12-12-2019 zoster vaccine recombinant Atul Harvey DO Work Phone: [facility] 07-04-2019 influenza, high dose seasonal, preservative-free Atul Harvey DO Work Phone: [facility] Work Phone: 05-13-2019 zoster vaccine recombinant Atul Harvey DO Work Phone: [facility] Work Phone: 07-28-2018 influenza, high dose seasonal, preservative-free Atul Harvey DO Work Phone: [facility] Work Phone: 07-28-2017 influenza, high dose seasonal, preservative-free Atul Harvey DO Work Phone: [facility] Work Phone: 07-31-2016 influenza, high dose seasonal, preservative-free Atul Harvey DO Work Phone: [facility] 07-12-2015 Influenza virus vaccine [facility] 11-15-2014 pneumococcal conjuga te vaccine, 13 valent Atul Harvey DO Work Phone: [facility] 07-14-2014 influenza, high dose seasonal, preservative-free Atul Kaplanrison DO Work Phone: [facility] 07-15-2013 influenza virus vacc ine, unspecified formulation Atul Harvey DO Work Phone: [facility] 06-26-2012 influenza virus vacc ine, unspecified formulation Atul Kaplanrison DO Work Phone: [facility] 02-25-2012 tetanus toxoid, redu peter diphtheria toxoid, and acellular pertussis vaccine, adsorbed Atul Harvey DO Work Phone: [facility] 10-31-2009 novel influenza-H1N1 -09, all formulations Atul Kaplanrison DO Work Phone: [facility] Work Phone: 07-19-2008 influenza virus vacc ine, unspecified formulation Atul Kaplanrison DO Work Phone: [facility] Work Phone: 09-10-2005 pneumococcal polysaccharide vaccine, 23 valent Atul Kaplanrison DO Work Phone: [facility] 05-26-2000 diphtheria and tetan us toxoids, adsorbed for pediatric use Atul Kaplanrison DO Work Phone: [facility] Work Phone: Payers Date Payer Category Payer Self-pay [id number] 2017 Medicare [employer] MEDICARE A ETNA MEDICARE PPO [id number] 2017-Present [phone] [address] [place] [address] [facility] [id number] 2017 Medicare [employer] MEDICARE A ETNA MEDICARE PPO [id number] 2017-Present [phone] [address] [place] [address] PPO [id number] 2017 Medicare (Managed Care) MICHELLE FERNANDEZ [id number] 2017 Private Health Insurance [facility] [id number] 2004 Medicare [id number] Unknown [id number] Unknown [id number] [id number]. 462 Unknown [id number] 2.840.1.785177.3.579.2. 462 Unknown [id number] 2.840.1.402428.3.579.2. 462 Unknown [id number] 2.16840.1.656052.3.579.2. 462 Unknown [id number] 2.16840.1.347258.3.579.2. 462 Unknown [id number] 2.16840.1.456483.3.579.2. 462 Unknown [id number] 2.16840.1.074832.3.579.2. 462 Unknown [id number] 2.840.1.815514.3.579.2. 462 Unknown [id number] 2.16.840.1.781070.3.579.2. 462 Unknown [id number] 2.16.840.1.009664.3.579.2. 462 Unknown [id number] 2.16.840.1.464717.3.579.2. 462 Unknown [id number] 2.16.840.1.256222.3.579.2. 462 Unknown [id number] 2.16.840.1.849633.3.579.2. 462 Unknown [id number] 2.16.840.1.284880.3.579.2. 462 Unknown [id number] 2.16.840.1.721355.3.579.2. 462 Unknown [id number] 2.16.840.1.820323.3.579.2. 462 Unknown [id number] 2.16.840.1.804811.3.579.2. 462 Unknown [id number] 2.16.840.1.300391.3.579.2. 462 Unknown [id number] 2.16.840.1.098219.3.579.2. 462 Unknown [id number] 2.16.840.1.335436.3.579.2. 462 Unknown [id number] 2.16.840.1.331056.3.579.2. 462 Unknown [id number] 2.16.840.1.840185.3.579.2. 462 Unknown [id number] 2.16.840.1.294145.3.579.2. 462 Unknown [id number] 2.16.840.1.308313.3.579.2. 462 Unknown [id number] 2.16.840.1.082321.3.579.2. 462 Social History Date Type Detail Facility Start: 08-19-2011 End: 01-06-2025 Tobacco smoking status NDIS Never smoked tobacco [facility] Work Phone: Start: 12-03-2021 End: 05-22-2025 Alcohol intake Current non-drinker of alcohol (finding) [facility] Start: 1940 Sex Assigned At Not on file [facility] Start: 07-08-2017 End: 07-08-2017 Tobacco smoking status NHIS Unknown if ever smoked [facility] Start: 08-02-2016 None [facility] Start: 08-02-2016 Non-smoker [facility] Start: 1940 Sex Assigned At Female W [facility] Start: 12-30-2020 End: 08-06-2022 Exposure to SARS-CoV-2 (event) Not sure [facility] Start: 08-19-2011 Tobacco use and exposure Smoke less tobacco non-user [facility] Start: 02-26-2023 History SDOH Food Worry 1 [facility] Start: 02-26-2023 History SDOH Transport Med 2 [facility] Start: 04-13-2023 End: 08-01-2024 History of Social function [facility] chris Work Phone: Start: 04-13-2023 End: 08-01-2024 Tobacco use panel [facility] Work Phone: Start: 09-12-2012 Adult Depression Scr eening Assessment 0 [facility] Work Phone: (I/We) worried wheth er (my/our) food would run out before (I/we) got money to buy more. Never true [facility] Work Phone: Do you belong to any clubs or organizations such as pentecostalism groups, unions, fraternal or athletic groups, or school groups? No [facility] Are you now , , , , never or living with a partner? [facility] How often to you hav e a drink containing alcohol? Never [facility] Do you feel stress - tense, restless, nervous, or anxious, or unable to sleep at night because your mind is troubled all the time - these days [OSQ] Not at all [facility] Start: 01-06-2025 Sex Female (finding) [facility] Goals Date Patient Goal Desired Activity /State Personal health goal Comment on above: Formatting of this n ote might be different from the original. stay active and independant Personal health goal Comment on above: Formatting of this n ote might be different from the original. Stay out of the hospital by taking medications as ordered, keeping medical appointments and reporting change in condition in a timely manor. Reevaluate in 6 months and ongoing. Personal health goal Comment on above: Formatting of this n ote might be different from the original. Patient has the following Congestive Heart Failure Goals: Two PCP Visits annually and Two Cardiology Visits annually Patient will meet these goals by 09/2024 (describe interventions done by PCC) Personal health goal Comment on above: Formatting of this n ote might be different from the original. This patient has the following Chronic Kidney Disease Health Maintenance goals: Two PCP visits annually This patient has the following education goals: CKD Zones Patient will meet these goals by: 09/2024 (describe interventions done by PCC) Comment on above: Formatting of this n ote might be different from the original. stay active and independant Comment on above: Formatting of this n ote might be different from the original. Stay out of the hospital by taking medications as ordered, keeping medical appointments and reporting change in condition in a timely manor. Reevaluate in 6 months and ongoing. Functional Status Date Assessment Result Facility 01-17-2025 Are you deaf, or do you have serious difficulty hearing No 01/17/2025 1:15 PM Roxy Kc, JOSE No [facility] 01-17-2025 Are you blind, or do you have serious difficulty seeing, even when wearing glasses No 01/17/2025 1:15 PM Roxy Kc, JOSE No [facility] 01-17-2025 Do you have serious difficulty walking or climbing stairs No 01/17/2025 1:15 PM Roxy Kc, JOSE No [facility] 01-17-2025 Do you have difficul ty dressing or bathing No 01/17/2025 1:15 PM Roxy Kc, JOSE No [facility] 01-17-2025 Because of a physica l, mental, or emotional condition, do you have difficulty doing errands alone such as visiting a physician's office or shopping No 01/17/2025 1:15 PM Roxy Kc RN No [facility] 10-18-2024 Functional status Ambulates;Mohan r;Bathroom Privilege [facility] Work Phone: 05-18-2015 Are you deaf, or do you have serious difficulty hearing No 05/18/2015 9:06 AM Rush Maldonado [facility] 05-18-2015 Are you blind, or do you have serious difficulty seeing, even when wearing glasses No 05/18/2015 9:06 AM Rush Maldonado [facility] 05-18-2015 Do you have serious difficulty walking or climbing stairs No 05/18/2015 9:06 AM Rush Maldonado [facility] 05-18-2015 Do you have difficul ty dressing or bathing No 05/18/2015 9:06 AM Rush Maldonado [facility] 05-18-2015 Because of a physica l, mental, or emotional condition, do you have difficulty doing errands alone such as visiting a physician's office or shopping No 05/18/2015 9:06 AM Rush Maldonado [facility] Mental Status Date Assessment Result Facility 01-17-2025 Because of a physica l, mental, or emotional condition, do you have serious difficulty concentrating, remembering, or making decisions No 01/17/2025 1:15 PM Roxy Kc RN No [facility] 01-06-2025 Cognitive function Voice/Name [facility] Work Phone: 10-18-2024 Cognitive function Voice/Name [facility] Work Phone: 05-18-2015 Because of a physica l, mental, or emotional condition, do you have serious difficulty concentrating, remembering, or making decisions No 05/18/2015 9:06 AM Rush Maldonado [facility] Clinical Notes 12-28-2018 to 05-31-2025 Areli Macedo CPhT - 05/31/2025 10:36 AM Atul Anderson DO - 05/23/2025 7:38 AM EDTPatient Virginia Mari - 05/09/2025 7:52 AM EDTPatient InstructionsPatient Instructions Note Date & Type Note Facility 05-31-2025 Note HNO ID: [id number] Author: ARELI MACEDO CPhT Service: ? Author Type: Bioinformatics Developer Type: Progress Notes Filed: 05/31/2025 10:38 Note Text: Patient is identified through a medication adherence outreach initiative based on pharmacy claims data from: [employer] Medication Adherence Category: Hypertension First Review Attribution Status: Correct attribution Medication(s) Losartan 50 mg Last Filled 12/02/24 for 90DS, Next fill due 04/07/25 Medication Status per portal/Epic Reconcile Dispense: Not filled Medication Status per Profile Review: Provider discontinued Is medication on Epic med list? No, Call pharmacy to discontinue prescription. Patient/provider appropriate for outreach? No Reason patient/provider not appropriate for outreach:Was taken off medlist - stopped 01/17/25 Areli Macedo CPhT Value Based Care Pharmacy Team [facility] 05-31-2025 History of Presen t illness Narrative Patient is identified through a medication adherence outreach initiative based on pharmacy claims data from: [employer] Medication Adherence Category: Hypertension First Review Attribution Status: Correct attribution Medication(s) Losartan 50 mg Last Filled 12/02/24 for 90DS, Next fill due 04/07/25 Medication Status per portal/Epic Reconcile Dispense: Not filled Medication Status per Profile Review: Provider discontinued Is medication on Epic med list? No, Call pharmacy to discontinue prescription. Patient/provider appropriate for outreach? No Reason patient/provider not appropriate for outreach:Was taken off medlist - stopped 01/17/25 Areli Macedo CPhT Value Based Care Pharmacy Team documented in this encounter [facility] 05-31-2025 Note Patient Outreach ( CONNIE) MARY CRANE ([id number]) 1940 F TXT Date Time Provider Department 05/31/25 ATUL HARVEY [facility] During your visit today, we recorded the following information about you: Areli Macedo CPhT 05/31/2025 10:38 AM Signed Patient is identified through a medication adherence outreach initiative based on pharmacy claims data from: [employer] Medication Adherence Category: Hypertension First Review Attribution Status: Correct attribution Medication(s) Losartan 50 mg Last Filled 12/02/24 for 90DS, Next fill due 04/07/25 Medication Status per portal/Epic Reconcile Dispense: Not filled Medication Status per Profile Review: Provider discontinued Is medication on Epic med list? No, Call pharmacy to discontinue prescription. Patient/provider appropriate for outreach? No Reason patient/provider not appropriate for outreach:Was taken off medlist - stopped 01/17/25 Areli Macedo CPhT Value Based Care Pharmacy Team Allergies As of Date: 05/31/2025 Noted Allergy Reaction FLOXIN (OFLOXACIN) 09/10/2005 10 - Anaphylaxis BUMEX (BUMETANIDE) 09/10/2005 5 - Intolerance HYDROCHLOROTHIAZIDE 09/10/2005 2 - Rash 5 - Intolerance Comments: leucocytoclastic vasculitis KEFLEX (CEPHALEXIN) 09/10/2005 2 - Rash NAPROXEN 09/10/2005 2 - Rash 4 - Hives NORVASC (AMLODIPINE BESYLATE) 09/10/2005 5 - Intolerance PENICILLINS 09/10/2005 5 - Intolerance Comments: Rash PROCTOSOL (HYDROCORTISONE ACETATE)09/10/2005 5 - Intolerance SULFA (SULFONAMIDE ANTIBIOTICS) 09/10/2005 2 - Rash 8 - GI Upset COLCHICINE 10/17/2005 4 - Hives MINOXIDIL 03/24/2011 14 - Other: See Comments Comments: facial hair Date Reviewed: 05/22/2025 Reviewed by: Mary Mendieta LPN - Fully Assessed Reason for Visit: Allied Health Visit [5] Cmt: Medication Adherence Outreach Prescriptions as of 05/31/2025 - allopurinol (ZYLOPRIM) 100 mg tablet Take 1 tablet by mouth once daily. - Cholecalciferol, Vitamin D3, 50 mcg (2,000 unit) cap Take 1 capsule by mouth once daily. - cyanocobalamin (VITAMIN B-12) 1,000 mcg tab Take 1 tablet by mouth every other day in the morning. - amiodarone (PACERONE) 200 mg tablet Take 1 tablet by mouth once daily. Take at 8 am - apixaban (ELIQUIS) 5 mg tab(s) Take 1 tablet by mouth two times a day. Take at 8 am and at 8 pm - furosemide (LASIX) 20 mg tablet Take 1 tablet by mouth once daily. In the morning at 8 am - levothyroxine (LEVOXYL) 75 mcg tablet Take 1 tablet by mouth once daily. Take at 6 am, Take on empty stomach. For Thyroid - atorvastatin (LIPITOR) 20 mg tablet Take 1 tablet by mouth once daily. At 8 pm - DULoxetine (CYMBALTA) 30 mg capsule Take 1 capsule by mouth once daily. Take at 8 am - folic acid 1 mg tablet Take 2 tablets by mouth once daily. Take at 8 am - loratadine (CLARITIN) 10 mg tablet Take 1 tablet by mouth once daily. Take at 8 am - metoprolol tartrate, short acting, (LOPRESSOR) 50 mg tablet Take 1 tablet by mouth every 12 hours. Take at 8 am and at 8 pm - Vit A,C and S-Vqenso-Yjqvwysf (OCUVITE WITH LUTEIN) 300 mcg-200 mg-27 mg-2 mg tab Take 1 tablet by mouth once daily. Take at 8 am - potassium chloride ER (KLOR-CON M10) 10 mEq tablet Take 1 tablet by mouth two times a day. Take at 8 am and at 8 pm - polyethylene glycol 3350 17 gram packet Take 1 packet by mouth two times a day. Dissolve dose in 4 - 8 ounces of liquid and take as directed. - senna-docusate (SENNA-S) 8.6-50 mg per tablet Take 1 tablet by mouth two times a day. - nystatin (NYSTOP) powder Apply 1 application to affected area four times a day as needed. Yeast infection/rash in groin and under breasts - ketoconazole (NIZORAL) 2 % cream Apply to affected area two times a day. - triamcinolone acetonide (KENALOG) 0.1 % cream Apply 1 application to affected area two times a day as needed (rash). Apply sparingly to area for rash/itching. - dicyclomine (BENTYL) 10 mg capsule Take 1 capsule by mouth before meals and at bedtime. For diarrhea or abdominal cramping - triamcinolone acetonide (KENALOG) 0.1 % cream Apply 1 application to affected area twice daily. On rash, Apply sparingly to area for rash/itching. - vit A/vit C/vit E/zinc/copper (OCUVITE PRESERVISION ORAL) Take by mouth twice daily. - apremilast (OTEZLA) 30 mg tablet Take 30 mg by mouth twice daily. - hydrocortisone probutate 0.1 % crea Apply to affected area once daily as needed. - acetaminophen (TYLENOL) 325 mg tablet Take 650 mg by mouth every 6 hours as needed. 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 [facility] 05-23-2025 Note HNO ID: [id number] Author: ATUL HARVEY, DO Service: ? Author Type: Physician Type: Progress Notes Filed: 05/23/2025 07:44 Note Text: CC: Mary Crane is a 84 year old female who presents to the office for follow up HPI: At last OFFICE VISIT January 2025 Patient is present with her daughter Samanta today in the office Feels that she had a downward spiral in her health After she had RSV viral infection and was seen in the hospital for her symptoms. 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 Then later fell against her left side and then 2-3 weeks after this fell when she tripped over her cat- falling against her left side. She was assessed by [facility] and had xrays to make sure no fractures or bone injuries overall. The specialist wasn't sure where the pain was happening from as the trigger. Was started on PHYSICAL THERAPY at home with benefit x multiple episodes Started not feeling well at 12 midnight on 3/28- felt that she was lightheaded and dizzy, she was sitting on the toilet and felt like she was going to pass out- she did fall against the edge of her bathtub and passed out before her family was able to come to help her, they live right beside her. She had a distended abdomen area and was jaundiced and her left flank was painful and was also having a lot of left shoulder pain as well for referral. Her daughter and son in law took her to the hospital EMERGENCY DEPARTMENT. On 01/06/25 she was seen in the EMERGENCY DEPARTMENT and had CT abdomen and pelvis- she had a spleen laceration and bleeding into the abdominal wall. She had 5 units of PRBC before she was transported to another hospital for potential surgery at [facility]. 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 Last saw [facility] in Oct at [facility]- he is managing the blood thinners. Bowel health is back to normal- denies constipation Mood, stable, has a lot of support from her family She transported to [facility] for 11 days after discharge from the hospital. She has now been home for 4 days. Was on oxygen therapy after this episode but oxygen levels at home have stayed stable. She would like to discontinue this if able since doesn't feel she is having any dyspnea symptoms. 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 She feels that she is slowly recovering her energy Still with fatigue symptoms Recently saw her Surgeon Assistant for her inflammatory arthritis, was found to have anemia Hemoglobin in the 9's, in January after splenectomy it was in the 10s Denies any bleeding bladder or colon or other area Admits that she hasn't been eating much iron rich foods but willing to improve this. No recent falls Daughter Samanta is present today in office- she lives beside her and she helps her with cooking and cleaning etc. PAST MEDICAL HISTORY Diagnosis Date Advance care planning 04/01/2022 Daughter Noemy Arrhythmia Benign neoplasm of colon Chronic kidney disease 02/09/2015 Diverticulosis of colon (without mention of hemorrhage) IFG (impaired fasting glucose) 03/2022 Incisional hernia 07/06/2015 Internal hemorrhoids without mention of complication Rheumatoid arthritis(714.0) Rheumatoid arthritis(714.0) Sicca syndrome (HCC) Unspecified essential hypertension PAST SURGICAL HISTORY Procedure Laterality Date CATARACT EXTRACTION HX 10/12/2004 COLONOSCOPY FLX DX W/COLLJ SPEC WHEN PFRMD 09/30/2005 Colonoscopy COLONOSCOPY FLX DX W/COLLJ SPEC WHEN PFRMD 07/28/2016 Colonoscopy COLONOSCOPY SCREENING 09/30/2022 multiple adenomatous polyps, repeat in 3 yrs ESOPHAGOGASTRODUODENOSCOPY TRANSORAL DIAGNOSTIC 12/21/2014 EGD LAPAROSCOPY SURG CHOLECYSTECTOMY 02/20/2015 NEUROPLASTY AND/TRANSPOS MEDIAN NRV CARPAL TUNNE 02/12/2006 Carpal tunnel decomp Left NEUROPLASTY AND/TRANSPOS MEDIAN NRV CARPAL TUNNE 02/27/2006 Carpal tunnel decomp Right PAST SURGICAL HISTORY OF 10/12/2001 hemorrhoidectomy , bladder, and umbilical hernia repair PAST SURGICAL HISTORY OF 08/12/2006 bladder suspension REPAIR FIRST ABDOMINAL WALL HERNIA 07/06/2015 with mesh VAGINAL HYSTERECTOMY UTERUS 250 GM/< 10/12/1983 Hysterectomy, vaginal and bladder tacked up Current Outpatient Medications Medication Sig allopurinol (ZYLOPRIM) 100 mg tablet Take 1 tablet by mouth once daily. Cholecalciferol, Vitamin D3, 50 mcg (2,000 unit) cap Take 1 capsule by mouth once daily. cyanocobalamin (VITAMIN B-12) 1,000 mcg tab Take 1 tablet by mouth every other day in the morning. amiodarone (PACERONE) 200 mg tablet Take 1 tablet by mouth once daily. Take at 8 am apixaban (ELIQUIS) 5 mg tab(s) Take 1 tablet by mouth two times a day. Take at 8 am and at 8 pm furosemide (LASIX) 20 mg tablet Take 1 tablet by mouth once daily. In the mo (more content not included)... [facility] 05-23-2025 History of Presen t illness Narrative CC: Mary Crane is a 84 year old female who presents to the office for follow up HPI: At last OFFICE VISIT January 2025 Patient is present with her daughter Samanta today in the office Feels that she had a downward spiral in her health After she had RSV viral infection and was seen in the hospital for her symptoms. 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 Then later fell against her left side and then 2-3 weeks after this fell when she tripped over her cat- falling against her left side. She was assessed by [facility] and had xrays to make sure no fractures or bone injuries overall. The specialist wasn't sure where the pain was happening from as the trigger. Was started on PHYSICAL THERAPY at home with benefit x multiple episodes Started not feeling well at 12 midnight on 01/06- felt that she was lightheaded and dizzy, she was sitting on the toilet and felt like she was going to pass out- she did fall against the edge of her bathtub and passed out before her family was able to come to help her, they live right beside her. She had a distended abdomen area and was jaundiced and her left flank was painful and was also having a lot of left shoulder pain as well for referral. Her daughter and son in law took her to the hospital EMERGENCY DEPARTMENT. On 01/06/25 she was seen in the EMERGENCY DEPARTMENT and had CT abdomen and pelvis- she had a spleen laceration and bleeding into the abdominal wall. She had 5 units of PRBC before she was transported to another hospital for potential surgery at [facility]. 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 Last saw [facility] Car Re[employer]er in Oct at [facility]- he is managing the blood thinners. Bowel health is back to normal- denies constipation Mood, stable, has a lot of support from her family She transported to [facility] for 11 days after discharge from the hospital. She has now been home for 4 days. Was on oxygen therapy after this episode but oxygen levels at home have stayed stable. She would like to discontinue this if able since doesn't feel she is having any dyspnea symptoms. 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 She feels that she is slowly recovering her energy Still with fatigue symptoms Recently saw her Surgeon Assistant for her inflammatory arthritis, was found to have anemia Hemoglobin in the 9's, in January after splenectomy it was in the 10s Denies any bleeding bladder or colon or other area Admits that she hasn't been eating much iron rich foods but willing to improve this. No recent falls Daughter Samanta is present today in office- she lives beside her and she helps her with cooking and cleaning etc. PAST MEDICAL HISTORY Diagnosis Date Advance care planning 04/01/2022 Daughter Noemy Arrhythmia Benign neoplasm of colon Chronic kidney disease 02/09/2015 Diverticulosis of colon (without mention of hemorrhage) IFG (impaired fasting glucose) 03/2022 Incisional hernia 07/06/2015 Internal hemorrhoids without mention of complication Rheumatoid arthritis(714.0) Rheumatoid arthritis(714.0) Sicca syndrome (HCC) Unspecified essential hypertension PAST SURGICAL HISTORY Procedure Laterality Date CATARACT EXTRACTION HX 10/12/2004 COLONOSCOPY FLX DX W/COLLJ SPEC WHEN PFRMD 09/30/2005 Colonoscopy COLONOSCOPY FLX DX W/COLLJ SPEC WHEN PFRMD 07/28/2016 Colonoscopy COLONOSCOPY SCREENING 09/30/2022 multiple adenomatous polyps, repeat in 3 yrs ESOPHAGOGASTRODUODENOSCOPY TRANSORAL DIAGNOSTIC 12/21/2014 EGD LAPAROSCOPY SURG CHOLECYSTECTOMY 02/20/2015 NEUROPLASTY &/TRANSPOS MEDIAN NRV CARPAL TUNNE 02/12/2006 Carpal tunnel decomp Left NEUROPLASTY &/TRANSPOS MEDIAN NRV CARPAL TUNNE 02/27/2006 Carpal tunnel decomp Right PAST SURGICAL HISTORY OF 10/12/2001 hemorrhoidectomy , bladder, and umbilical hernia repair PAST SURGICAL HISTORY OF 08/12/2006 bladder suspension REPAIR FIRST ABDOMINAL WALL HERNIA 07/06/2015 with mesh VAGINAL HYSTERECTOMY UTERUS 250 GM/< 10/12/1983 Hysterectomy, vaginal and bladder tacked up Current Outpatient Medications Medication Sig allopurinol (ZYLOPRIM) 100 mg tablet Take 1 tablet by mouth once daily. Cholecalciferol, Vitamin D3, 50 mcg (2,000 unit) cap Take 1 capsule by mouth once daily. cyanocobalamin (VITAMIN B-12) 1,000 mcg tab Take 1 tablet by mouth every other day in the morning. amiodarone (PACERONE) 200 mg tablet Take 1 tablet by mouth once daily. Take at 8 am apixaban (ELIQUIS) 5 mg tab(s) Take 1 tablet by mouth two times a day. Take at 8 am and at 8 pm furosemide (LASIX) 20 mg tablet Take 1 tablet by mouth once daily. In the morning at 8 am levothyroxine (LEVOXYL) 75 mcg tablet Take 1 tablet by mouth once daily. Take at 6 am, Take on empty stomach. For Thyroid atorvastatin (LIPITOR) 20 mg tablet Take 1 tablet by mouth once daily. At 8 pm DULoxetine (CYMBALTA) 30 mg capsule Take 1 capsule by mouth once daily. Take at 8 am folic acid 1 mg tablet Take 2 tablets by mouth once daily. Take at 8 am loratadine (CLARITIN) 10 mg tablet Take 1 tablet by mouth once daily. Take at 8 am metoprolol tartrate, short acting, (LOPRESSOR) 50 mg tablet Take 1 tablet by mouth every 12 hours. Take at 8 am and at 8 pm Vit A,C and C-Nkhhiq-Lftqjmii (OCUVITE WITH LUTEIN) 300 mcg-200 mg-27 mg-2 mg tab Take 1 tablet by mouth once daily. Take at 8 am potassium chloride ER (KLOR-CON M10) 10 mEq tablet Take 1 tablet by mouth two times a day. Take at 8 am and at 8 pm polyethylene glycol 3350 17 gram packet Take 1 packet by mouth two times a day. Dissolve dose in 4 - 8 ounces of liquid and take as directed. senna-docusate (SENNA-S) 8.6-50 mg per tablet Take 1 tablet by mouth two times a day. (Patient not taking: Reported on 03/27/2025) nystatin (NYSTOP) powder Apply 1 application to affected area four times a day as needed. Yeast infection/rash in groin and under breasts ketoconazole (NIZORAL) 2 % cream Apply to affected area two times a day. triamcinolone acetonide (KENALOG) 0.1 % cream Apply 1 application to affected area two times a day as needed (rash). Apply sparingly to area for rash/itching. dicyclomine (BENTYL) 10 mg capsule Take 1 capsule by mouth before meals and at bedtime. For diarrhea or abdominal cramping triamcinolone acetonide (KENALOG) 0.1 % cream Apply 1 application to affected area twice daily. On rash, Apply sparingly to area for rash/itching. vit A/vit C/vit E/zinc/copper (OCUVITE PRESERVISION ORAL) Take by mouth twice daily. apremilast (OTEZLA) 30 mg tablet Take 30 mg by mouth twice daily. hydrocortisone probutate 0.1 % crea Apply to affected area once daily as needed. acetaminophen (TYLENOL) 325 mg tablet Take 650 mg by mouth every 6 hours as needed. No current facility-administered medications for this visit. ALLERGIES Allergen Reactions Floxin [Ofloxacin] Anaphylaxis Bumex [Bumetanide] Intolerance Hydrochlorothiazide Rash, Intolerance leucocytoclastic vasculitis Keflex [Cephalexin] Rash Naproxen Rash, Hives Norvasc [Amlodipine* Intolerance Penicillins Intolerance Rash Proctosol [Hydrocor* Intolerance Sulfa (Sulfonamide * Rash, GI Upset Colchicine Hives Minoxidil Other: See Comments facial hair SOCIAL HISTORY[1] ROS: See HPI PE: BP 120/80 Pulse 60 Temp (Src) 97 (Left Tympanic) Resp 16 Wt 154 lb (69.9kg) Gen: A&OX3, NAD, non-toxic appearing HEENT: PERRLA, EOMs intact b/l, nares without drainage, pharynx without erythema, exudate, lesions, or drainage. Uvula midline. Neck: No LAD, no thyromegaly, no meningismus. CV: RRR, no murmur Lungs: CTA b/l, no wheezing Abd: healed incision central ventral vertical without signs of infection Healed chest tube incision left chest wall Skin: No rashes, lesions, or wounds on exposed skin Appears mildly fatigued No abdominal pain ASSESSMENT/PLAN: 1. Iron deficiency anemia, unspecified iron deficiency anemia type - ICD9: 280.9, ICD10: D50.9 (primary diagnosis) Start on iron supplement orally with food D/w her and daughter how to take this and SE that are possible F/u with labs in 1 month If not improving, will need IV iron - COMPLETE BLOOD COUNT - IRON AND TIBC 2. Gait disturbance - ICD9: 781.2, ICD10: R26.9 - PARKING FOR HANDICAPPED 3. Dyslipidemia - ICD9: 272.4, ICD10: E78.5 - Control undetermined, due for labs - Counseled on healthy diet and regular exercise - Discussed need for and benefit of weight loss. BMI 26.43 kg/(m^2) 4. Subclinical hypothyroidism - ICD9: 244.8, ICD10: E03.8 - Instructed patient on importance of taking on an empty stomach either first thing in the morning or at bedtime. - continue current dose of Synthroid 5. Vitamin D deficiency - ICD9: 268.9, ICD10: E55.9 Continue supplement 6. Hypertension, essential - ICD9: 401.9, ICD10: I10 - Controlled - Continue current medications - Recommend home blood pressure monitoring, to bring results to next visit - Encouraged sodium restriction, DASH or Mediterranean diet - Recommend regular aerobic exercise 7. H/O splenectomy - ICD9: V45.79, ICD10: Z90.81 See above Overall recovering well 8. IFG (impaired fasting glucose) - ICD9: 790.21, ICD10: R73.01 Stable, diet controlled. 9. Elevated LFTs - ICD9: 790.6, ICD10: R79.89 stable Atul Harvey DO Return if no improvement. Follow up with Atul Harvey DO. To ER if develops chest pain, shortness of breath. Discussed risks, benefits, alternatives, and potential side effects of medications. Patient/Guardian expressed understanding and agreed with the plan. See patient instructions. Atul Harvey DO [address] [place] [address] [1] Social History Tobacco Use Smoking status: Never Smokeless tobacco: Never Vaping Use Vaping status: Never Used Substance Use Topics Alcohol use: No Drug use: No documented in this encounter [facility] 05-22-2025 Instructions Atul Harvey DO - 05/22/2025 2:45 PM EDT Slo fe or ferrous sulfate iron tablet or chewable/gummy with 45-67 mg of iron 1-2 times a day with a meal. Recheck labs in 4-6 weeks documented in this encounter [facility] 05-09-2025 Note HNO ID: [id number] Author: ?, ?, ? Service: ? Author Type: ? Type: Progress Notes Filed: 05/09/2025 07:54 Note Text: Patient is identified through a medication adherence outreach initiative based on pharmacy claims data from: Michelle Medication Adherence Category: Hypertension First Review Attribution Status: Correct attribution Medication(s) Losartan 50 mg Medication Status per portal/Epic Reconcile Dispense: Not filled Medication Status per Profile Review: Provider discontinued Is medication on Epic med list? No, Call pharmacy to discontinue prescription. Patient/provider appropriate for outreach? No Reason patient/provider not appropriate for outreach:Per encounter on 01/17/2025, patient was told to hold dose Virginia Spencer [facility] 05-09-2025 History of Presen t illness Narrative Patient is identified through a medication adherence outreach initiative based on pharmacy claims data from: [employer] Medication Adherence Category: Hypertension First Review Attribution Status: Correct attribution Medication(s) Losartan 50 mg Medication Status per portal/Epic Reconcile Dispense: Not filled Medication Status per Profile Review: Provider discontinued Is medication on Epic med list? No, Call pharmacy to discontinue prescription. Patient/provider appropriate for outreach? No Reason patient/provider not appropriate for outreach:Per encounter on 01/17/2025, patient was told to hold dose Virginia Spencer [facility] Team documented in this encounter [facility] 05-09-2025 Note Patient Outreach ( POHE) MARY CRANE ([id number]) 1940 F TXT Date Time Provider Department 05/09/25 [facility] During your visit today, we recorded the following information about you: Virginia Spencer 05/09/2025 7:54 AM Signed Patient is identified through a medication adherence outreach initiative based on pharmacy claims data from: [employer] Medication Adherence Category: Hypertension First Review Attribution Status: Correct attribution Medication(s) Losartan 50 mg Medication Status per portal/Epic Reconcile Dispense: Not filled Medication Status per Profile Review: Provider discontinued Is medication on Epic med list? No, Call pharmacy to discontinue prescription. Patient/provider appropriate for outreach? No Reason patient/provider not appropriate for outreach:Per encounter on 01/17/2025, patient was told to hold dose Virginia Rockower [facility] Allergies As of Date: 05/09/2025 Noted Allergy Reaction FLOXIN (OFLOXACIN) 09/10/2005 10 - Anaphylaxis BUMEX (BUMETANIDE) 09/10/2005 5 - Intolerance HYDROCHLOROTHIAZIDE 09/10/2005 2 - Rash 5 - Intolerance Comments: leucocytoclastic vasculitis KEFLEX (CEPHALEXIN) 09/10/2005 2 - Rash NAPROXEN 09/10/2005 2 - Rash 4 - Hives NORVASC (AMLODIPINE BESYLATE) 09/10/2005 5 - Intolerance PENICILLINS 09/10/2005 5 - Intolerance Comments: Rash PROCTOSOL (HYDROCORTISONE ACETATE)09/10/2005 5 - Intolerance SULFA (SULFONAMIDE ANTIBIOTICS) 09/10/2005 2 - Rash 8 - GI Upset COLCHICINE 10/17/2005 4 - Hives MINOXIDIL 03/24/2011 14 - Other: See Comments Comments: facial hair Date Reviewed: 04/24/2025 Reviewed by: Lizzy Mora MA - Fully Assessed Reason for Visit: Allied Health Visit [5] Cmt: Medication adherence outreach Prescriptions as of 05/09/2025 - allopurinol (ZYLOPRIM) 100 mg tablet Take 1 tablet by mouth once daily. - Cholecalciferol, Vitamin D3, 50 mcg (2,000 unit) cap Take 1 capsule by mouth once daily. - cyanocobalamin (VITAMIN B-12) 1,000 mcg tab Take 1 tablet by mouth every other day in the morning. - amiodarone (PACERONE) 200 mg tablet Take 1 tablet by mouth once daily. Take at 8 am - apixaban (ELIQUIS) 5 mg tab(s) Take 1 tablet by mouth two times a day. Take at 8 am and at 8 pm - furosemide (LASIX) 20 mg tablet Take 1 tablet by mouth once daily. In the morning at 8 am - levothyroxine (LEVOXYL) 75 mcg tablet Take 1 tablet by mouth once daily. Take at 6 am, Take on empty stomach. For Thyroid - atorvastatin (LIPITOR) 20 mg tablet Take 1 tablet by mouth once daily. At 8 pm - DULoxetine (CYMBALTA) 30 mg capsule Take 1 capsule by mouth once daily. Take at 8 am - folic acid 1 mg tablet Take 2 tablets by mouth once daily. Take at 8 am - loratadine (CLARITIN) 10 mg tablet Take 1 tablet by mouth once daily. Take at 8 am - metoprolol tartrate, short acting, (LOPRESSOR) 50 mg tablet Take 1 tablet by mouth every 12 hours. Take at 8 am and at 8 pm - Vit A,C and Z-Ahioya-Pnnvzplm (OCUVITE WITH LUTEIN) 300 mcg-200 mg-27 mg-2 mg tab Take 1 tablet by mouth once daily. Take at 8 am - potassium chloride ER (KLOR-CON M10) 10 mEq tablet Take 1 tablet by mouth two times a day. Take at 8 am and at 8 pm - polyethylene glycol 3350 17 gram packet Take 1 packet by mouth two times a day. Dissolve dose in 4 - 8 ounces of liquid and take as directed. - senna-docusate (SENNA-S) 8.6-50 mg per tablet Take 1 tablet by mouth two times a day. - nystatin (NYSTOP) powder Apply 1 application to affected area four times a day as needed. Yeast infection/rash in groin and under breasts - ketoconazole (NIZORAL) 2 % cream Apply to affected area two times a day. - triamcinolone acetonide (KENALOG) 0.1 % cream Apply 1 application to affected area two times a day as needed (rash). Apply sparingly to area for rash/itching. - dicyclomine (BENTYL) 10 mg capsule Take 1 capsule by mouth before meals and at bedtime. For diarrhea or abdominal cramping - triamcinolone acetonide (KENALOG) 0.1 % cream Apply 1 application to affected area twice daily. On rash, Apply sparingly to area for rash/itching. - vit A/vit C/vit E/zinc/copper (OCUVITE PRESERVISION ORAL) Take by mouth twice daily. - apremilast (OTEZLA) 30 mg tablet Take 30 mg by mouth twice daily. - hydrocortisone probutate 0.1 % crea Apply to affected area once daily as needed. - acetaminophen (TYLENOL) 325 mg tablet Take 650 mg by mouth every 6 hours as needed. Problem List As Of Date 05/09/2025 Noted Resolved Benign neoplasm of colon [D12.6] 09/30/2005 02/24/2020 DIVERTICULOSIS OF COLON W/O BLEED [K57.30] 09/30/2005 Internal hemorrhoids without mention of complic*09/30/2005 02/24/2020 CARPAL TUNNEL SYNDROME [G56.00] 10/17/2005 03/12/2006 LOC PRIM OSTEOARTH-HAND [M19.049] 10/17/2005 Other tenosynovitis of hand and wrist [M65.849,*01/ (more content not included)... [facility] 04-24-2025 Telephone encounter Note Patient was notified prior to leaving that viral testing and xray negative. Likely viral etiology. [facility] Work Phone: 04-24-2025 Miscellaneous Notes Patient was notified prior to leaving that viral testing and xray negative. Likely viral etiology. documented in this encounter [facility] 04-24-2025 Note SARS-COV-2 (AGENT OF COVID-19) RNA: Not detected INFLUENZA A RNA: Not detected INFLUENZA B RNA: Not detected RESPIRATORY SYNCYTIAL VIRUS (RSV) RNA: Not detected [facility] Comment on above: Performed By: #### [id number] ####[facility] [id number] [place] [address] [place] 04-24-2025 History of Presen t illness Narrative Radiology Service Progress Note PATIENT NAME: Mary Crane DATE OF SERVICE: April 24, 2025 TIME: 1:12 PM PATIENT IDENTITY VERIFICATION COMPLETED USING TWO (2) IDENTIFIERS: Name and Date of confirmed by patient verbally. FALL SCREENING: Has the patient had 2 falls in the last year or 1 fall with injury or currently using an Ambulatory Assistive Device (Walker, Cane, Wheelchair, Crutches, etc.)? No PATIENT GENDER DATA: Assigned female at . status: : No status: NO. PATIENT RELEVANT IMPLANT DATA REVIEWED: Not Applicable PATIENT PRESENTS WITH AN IMPLANTABLE OR ATTACHED SCIENTIFIC TECHNICAL WRITER: No RADIOLOGY DEPARTMENT: General X-ray: Exam(s) Completed: Chest X-Ray PERIPHERAL IV DATA: Not applicable SIGNED BY: RT Walter(Kenneth) April 24, 2025 1:12 PM documented in this encounter [facility] 04-24-2025 Note HNO ID: [id number] Author: NED MULLEN RT(R) Service: ? Author Type: Technologist Type: Progress Notes Filed: 04/24/2025 13:17 Note Text: Radiology Service Progress Note PATIENT NAME: Mary Crane DATE OF SERVICE: April 24, 2025 TIME: 1:12 PM PATIENT IDENTITY VERIFICATION COMPLETED USING TWO (2) IDENTIFIERS: Name and Date of confirmed by patient verbally. FALL SCREENING: Has the patient had 2 falls in the last year or 1 fall with injury or currently using an Ambulatory Assistive Device (Walker, Cane, Wheelchair, Crutches, etc.)? No PATIENT GENDER DATA: Assigned female at . status: : No status: NO. PATIENT RELEVANT IMPLANT DATA REVIEWED: Not Applicable PATIENT PRESENTS WITH AN IMPLANTABLE OR ATTACHED SCIENTIFIC TECHNICAL WRITER: No RADIOLOGY DEPARTMENT: General X-ray: Exam(s) Completed: Chest X-Ray PERIPHERAL IV DATA: Not applicable SIGNED BY: RT Walter(Kenneth) April 24, 2025 1:12 PM [facility] 04-24-2025 Note HNO ID: [id number] Author: MAY LINARES MA Service: ? Author Type: Continuing Education Director Type: Progress Notes Filed: 04/24/2025 13:04 Note Text: Patient presents from PCP office to have ordered URI testing completed. Rapid Covid/Flu testing and PCR Covid/Flu/RSV testing done per provider's orders and provider notified of rapid results. May Linares MA [facility] 04-24-2025 History of Presen t illness Narrative Patient presents from PCP office to have ordered URI testing completed. Rapid Covid/Flu testing and PCR Covid/Flu/RSV testing done per provider's orders and provider notified of rapid results. May Linares MA documented in this encounter [facility] 04-24-2025 Note Addended by: JOSEF MARTINEZ on: 04/24/2025 12:29 PM Modules accepted: Orders [facility] 04-24-2025 Miscellaneous Notes Addended by: JOSEF MARTINEZ on: 04/24/2025 12:29 PM Modules accepted: Orders documented in this encounter [facility] 04-24-2025 Note HNO ID: [id number] Author: JOSEF MARTINEZ APRN.CNP Service: ? Author Type: Nurse Practitioner Type: Progress Notes Filed: 04/24/2025 12:26 Note Text: Chief Complaint Patient presents with: Cough sinus congestion Headache HPI Mary Crane is a 84 year old female who presents here today for Above Complaints. Patient presents for sinus congestion, productive cough, headache x days. Denies fever, chills, Shortness of Breath, CP. Past medical history, appointments, medications, allergies reviewed. Previous Medical History PAST MEDICAL HISTORY Diagnosis Date Advance care planning 04/01/2022 Daughter Noemy Arrhythmia Benign neoplasm of colon Chronic kidney disease 02/09/2015 Diverticulosis of colon (without mention of hemorrhage) IFG (impaired fasting glucose) 03/2022 Incisional hernia 07/06/2015 Internal hemorrhoids without mention of complication Rheumatoid arthritis(714.0) Rheumatoid arthritis(714.0) Sicca syndrome (HCC) Unspecified essential hypertension Previous Surgical History PAST SURGICAL HISTORY Procedure Laterality Date CATARACT EXTRACTION HX 10/12/2004 COLONOSCOPY FLX DX W/COLLJ SPEC WHEN PFRMD 09/30/2005 Colonoscopy COLONOSCOPY FLX DX W/COLLJ SPEC WHEN PFRMD 07/28/2016 Colonoscopy COLONOSCOPY SCREENING 09/30/2022 multiple adenomatous polyps, repeat in 3 yrs ESOPHAGOGASTRODUODENOSCOPY TRANSORAL DIAGNOSTIC 12/21/2014 EGD LAPAROSCOPY SURG CHOLECYSTECTOMY 02/20/2015 NEUROPLASTY AND/TRANSPOS MEDIAN NRV CARPAL TUNNE 02/12/2006 Carpal tunnel decomp Left NEUROPLASTY AND/TRANSPOS MEDIAN NRV CARPAL TUNNE 02/27/2006 Carpal tunnel decomp Right PAST SURGICAL HISTORY OF 10/12/2001 hemorrhoidectomy , bladder, and umbilical hernia repair PAST SURGICAL HISTORY OF 08/12/2006 bladder suspension REPAIR FIRST ABDOMINAL WALL HERNIA 07/06/2015 with mesh VAGINAL HYSTERECTOMY UTERUS 250 GM/< 10/12/1983 Hysterectomy, vaginal and bladder tacked up Family History FAMILY HISTORY Problem Relation Age of Onset Diabetes Mother Hypertension Mother Heart Father Diabetes Sister No Known Problems Sister No Known Problems Brother Heart Brother No Known Problems Brother Patient Allergies ALLERGIES Allergen Reactions Floxin [Ofloxacin] Anaphylaxis Bumex [Bumetanide] Intolerance Hydrochlorothiazide Rash, Intolerance leucocytoclastic vasculitis Keflex [Cephalexin] Rash Naproxen Rash, Hives Norvasc [Amlodipine* Intolerance Penicillins Intolerance Rash Proctosol [Hydrocor* Intolerance Sulfa (Sulfonamide * Rash, GI Upset Colchicine Hives Minoxidil Other: See Comments facial hair Current Medications Current Outpatient Medications on File Prior to Visit Medication Sig allopurinol (ZYLOPRIM) 100 mg tablet Take 1 tablet by mouth once daily. Cholecalciferol, Vitamin D3, 50 mcg (2,000 unit) cap Take 1 capsule by mouth once daily. cyanocobalamin (VITAMIN B-12) 1,000 mcg tab Take 1 tablet by mouth every other day in the morning. amiodarone (PACERONE) 200 mg tablet Take 1 tablet by mouth once daily. Take at 8 am apixaban (ELIQUIS) 5 mg tab(s) Take 1 tablet by mouth two times a day. Take at 8 am and at 8 pm furosemide (LASIX) 20 mg tablet Take 1 tablet by mouth once daily. In the morning at 8 am levothyroxine (LEVOXYL) 75 mcg tablet Take 1 tablet by mouth once daily. Take at 6 am, Take on empty stomach. For Thyroid atorvastatin (LIPITOR) 20 mg tablet Take 1 tablet by mouth once daily. At 8 pm DULoxetine (CYMBALTA) 30 mg capsule Take 1 capsule by mouth once daily. Take at 8 am folic acid 1 mg tablet Take 2 tablets by mouth once daily. Take at 8 am loratadine (CLARITIN) 10 mg tablet Take 1 tablet by mouth once daily. Take at 8 am metoprolol tartrate, short acting, (LOPRESSOR) 50 mg tablet Take 1 tablet by mouth every 12 hours. Take at 8 am and at 8 pm Vit A,C and D-Knoywz-Xswskmcd (OCUVITE WITH LUTEIN) 300 mcg-200 mg-27 mg-2 mg tab Take 1 tablet by mouth once daily. Take at 8 am potassium chloride ER (KLOR-CON M10) 10 mEq tablet Take 1 tablet by mouth two times a day. Take at 8 am and at 8 pm polyethylene glycol 3350 17 gram packet Take 1 packet by mouth two times a day. Dissolve dose in 4 - 8 ounces of liquid and take as directed. senna-docusate (SENNA-S) 8.6-50 mg per tablet Take 1 tablet by mouth two times a day. (Patient not taking: Reported on 03/27/2025) nystatin (NYSTOP) powder Apply 1 application to affected area four times a day as needed. Yeast infection/rash in groin and under breasts ketoconazole (NIZORAL) 2 % cream Apply to affected area two times a day. triamcinolone acetonide (KENALOG) 0.1 % cream Apply 1 application to affected area two times a day as needed (rash). Apply sparingly to area for rash/itching. dicyclomine (BENTYL) 10 mg capsule Take 1 capsule by mouth before meals and at bedtime. For diarrhea or abdominal cramping triamcinolone acetonide (KENALOG) 0.1 % cream Apply 1 rolando (more content not included)... [facility] 04-24-2025 History of Presen t illness Narrative Chief Complaint Patient presents with: Cough sinus congestion Headache HPI Mary Crane is a 84 year old female who presents here today for Above Complaints. Patient presents for sinus congestion, productive cough, headache x days. Denies fever, chills, Shortness of Breath, CP. Past medical history, appointments, medications, allergies reviewed. Previous Medical History PAST MEDICAL HISTORY Diagnosis Date Advance care planning 04/01/2022 Daughter Noemy Arrhythmia Benign neoplasm of colon Chronic kidney disease 02/09/2015 Diverticulosis of colon (without mention of hemorrhage) IFG (impaired fasting glucose) 03/2022 Incisional hernia 07/06/2015 Internal hemorrhoids without mention of complication Rheumatoid arthritis(714.0) Rheumatoid arthritis(714.0) Sicca syndrome (HCC) Unspecified essential hypertension Previous Surgical History PAST SURGICAL HISTORY Procedure Laterality Date CATARACT EXTRACTION HX 10/12/2004 COLONOSCOPY FLX DX W/COLLJ SPEC WHEN PFRMD 09/30/2005 Colonoscopy COLONOSCOPY FLX DX W/COLLJ SPEC WHEN PFRMD 07/28/2016 Colonoscopy COLONOSCOPY SCREENING 09/30/2022 multiple adenomatous polyps, repeat in 3 yrs ESOPHAGOGASTRODUODENOSCOPY TRANSORAL DIAGNOSTIC 12/21/2014 EGD LAPAROSCOPY SURG CHOLECYSTECTOMY 02/20/2015 NEUROPLASTY &/TRANSPOS MEDIAN NRV CARPAL TUNNE 02/12/2006 Carpal tunnel decomp Left NEUROPLASTY &/TRANSPOS MEDIAN NRV CARPAL TUNNE 02/27/2006 Carpal tunnel decomp Right PAST SURGICAL HISTORY OF 10/12/2001 hemorrhoidectomy , bladder, and umbilical hernia repair PAST SURGICAL HISTORY OF 08/12/2006 bladder suspension REPAIR FIRST ABDOMINAL WALL HERNIA 07/06/2015 with mesh VAGINAL HYSTERECTOMY UTERUS 250 GM/< 10/12/1983 Hysterectomy, vaginal and bladder tacked up Family History FAMILY HISTORY Problem Relation Age of Onset Diabetes Mother Hypertension Mother Heart Father Diabetes Sister No Known Problems Sister No Known Problems Brother Heart Brother No Known Problems Brother Patient Allergies ALLERGIES Allergen Reactions Floxin [Ofloxacin] Anaphylaxis Bumex [Bumetanide] Intolerance Hydrochlorothiazide Rash, Intolerance leucocytoclastic vasculitis Keflex [Cephalexin] Rash Naproxen Rash, Hives Norvasc [Amlodipine* Intolerance Penicillins Intolerance Rash Proctosol [Hydrocor* Intolerance Sulfa (Sulfonamide * Rash, GI Upset Colchicine Hives Minoxidil Other: See Comments facial hair Current Medications Current Outpatient Medications on File Prior to Visit Medication Sig allopurinol (ZYLOPRIM) 100 mg tablet Take 1 tablet by mouth once daily. Cholecalciferol, Vitamin D3, 50 mcg (2,000 unit) cap Take 1 capsule by mouth once daily. cyanocobalamin (VITAMIN B-12) 1,000 mcg tab Take 1 tablet by mouth every other day in the morning. amiodarone (PACERONE) 200 mg tablet Take 1 tablet by mouth once daily. Take at 8 am apixaban (ELIQUIS) 5 mg tab(s) Take 1 tablet by mouth two times a day. Take at 8 am and at 8 pm furosemide (LASIX) 20 mg tablet Take 1 tablet by mouth once daily. In the morning at 8 am levothyroxine (LEVOXYL) 75 mcg tablet Take 1 tablet by mouth once daily. Take at 6 am, Take on empty stomach. For Thyroid atorvastatin (LIPITOR) 20 mg tablet Take 1 tablet by mouth once daily. At 8 pm DULoxetine (CYMBALTA) 30 mg capsule Take 1 capsule by mouth once daily. Take at 8 am folic acid 1 mg tablet Take 2 tablets by mouth once daily. Take at 8 am loratadine (CLARITIN) 10 mg tablet Take 1 tablet by mouth once daily. Take at 8 am metoprolol tartrate, short acting, (LOPRESSOR) 50 mg tablet Take 1 tablet by mouth every 12 hours. Take at 8 am and at 8 pm Vit A,C and Q-Mljskm-Isqwmenc (OCUVITE WITH LUTEIN) 300 mcg-200 mg-27 mg-2 mg tab Take 1 tablet by mouth once daily. Take at 8 am potassium chloride ER (KLOR-CON M10) 10 mEq tablet Take 1 tablet by mouth two times a day. Take at 8 am and at 8 pm polyethylene glycol 3350 17 gram packet Take 1 packet by mouth two times a day. Dissolve dose in 4 - 8 ounces of liquid and take as directed. senna-docusate (SENNA-S) 8.6-50 mg per tablet Take 1 tablet by mouth two times a day. (Patient not taking: Reported on 03/27/2025) nystatin (NYSTOP) powder Apply 1 application to affected area four times a day as needed. Yeast infection/rash in groin and under breasts ketoconazole (NIZORAL) 2 % cream Apply to affected area two times a day. triamcinolone acetonide (KENALOG) 0.1 % cream Apply 1 application to affected area two times a day as needed (rash). Apply sparingly to area for rash/itching. dicyclomine (BENTYL) 10 mg capsule Take 1 capsule by mouth before meals and at bedtime. For diarrhea or abdominal cramping triamcinolone acetonide (KENALOG) 0.1 % cream Apply 1 application to affected area twice daily. On rash, Apply sparingly to area for rash/itching. vit A/vit C/vit E/zinc/copper (OCUVITE PRESERVISION ORAL) Take by mouth twice daily. apremilast (OTEZLA) 30 mg tablet Take 30 mg by mouth twice daily. hydrocortisone probutate 0.1 % crea Apply to affected area once daily as needed. acetaminophen (TYLENOL) 325 mg tablet Take 650 mg by mouth every 6 hours as needed. No current facility-administered medications on file prior to visit. Social History Social History Tobacco Use Smoking status: Never Smokeless tobacco: Never Vaping Use Vaping status: Never Used Substance Use Topics Alcohol use: No Drug use: No Review of Symptoms REVIEW OF SYSTEMS SEE HPI EXAM: BP 171/76 Pulse (!) 56 Wt 69 kg (152 lb 1.9 oz) BMI 26.11 kg/m General Appearance: Well appearing, alert, in no acute distress, well-hydrated, well nourished.. Nose/Sinuses: Positive findings: mucosa erythematous and swollen. Oropharynx: Lips, mucosa, and tongue normal, teeth and gums normal, oropharynx normal. Neck: Supple, no adenopathy; thyroid symmetric, normal size, no bruits. Lungs: Positive findings: rhonchi right upper lobe, Cough. Heart: RRR without murmur, gallop, or rubs. No ectopy. Health Maintenance List Cervical Cancer Screening due on 12/16/2006 DTaP,Tdap,Td Vaccine(3 - Td or Tdap) due on 02/24/2022 Medicare Advantage Annual Wellness Visit Never done Meningococcal B Vaccine(2 of 5 - Increased Risk Bexsero 3-dose series) due on 02/09/2025 Depression Screening due on 02/16/2025 Anxiety Screening due on 02/16/2025 Meningococcal Conjugate Vaccine(2 - Risk 2-dose series) due on 03/10/2025 Covid-19 Vaccine( season) due on 08/22/2025 Influenza Vaccine(1) due on 06/12/2025 Colorectal Cancer Screening due on 09/30/2025 Diabetes Screening due on 02/07/2028 Hib Vaccine Completed Bone Density Screening Completed RSV Vaccine Completed Shingrix Vaccine Completed Pneumococcal Vaccine: 50+ Completed Advance Directive Discussion Discontinued ASSESSMENT/PLAN: 1. URI, acute - ICD9: 465.9, ICD10: J06.9 - Discussed viral etiology and rationale for treatment. - Symptomatic treatment with prn analgesia - Supportive care with fluids and rest - COVID-19 MOLECULAR (POC) - INFLUENZA A&B MOLECULAR (POC) - RSV (POC) - XR CHEST 2V FRONTAL/LAT Josef Martinez APRN.[employer] documented in this encounter [facility] 04-24-2025 Telephone encounter Note Pt's daughter called in and reports that Pt has a possible sinus infection. She states Pt has clear sinus drainage and when she blows her nose it's a thick white. She is coughing up thick yellow phlegm, pressure around head into temples and back of head, sinus headache. She denies her mother running a fever, but states she has been taking Tylenol for the pain. She reports the Tylenol isn't help with the pain. Pt scheduled today with Josef Martinez NP. Christel Wagner RN [facility] 04-24-2025 Miscellaneous Notes Pt's daughter called in and reports that Pt has a possible sinus infection. She states Pt has clear sinus drainage and when she blows her nose it's a thick white. She is coughing up thick yellow phlegm, pressure around head into temples and back of head, sinus headache. She denies her mother running a fever, but states she has been taking Tylenol for the pain. She reports the Tylenol isn't help with the pain. Pt scheduled today with Josef Martinez NP. Christel Wagner RN documented in this encounter [facility] 03-27-2025 History of Presen t illness Narrative Images from the original note were not included. [facility] SECTION OF REGIONAL CARDIOLOGY Cardiology ([facility]) [address] [facility] [id number] OUTPATIENT VISIT DATE 03/27/2025 PRIMARY CARE PHYSICIAN: Atul Harvey [address] [place] [address] HISTORY OF PRESENT ILLNESS: Ms. Crane is a 84 year old woman with history of paroxysmal atrial fibrillation, mild pulmonary hypertension, essential hypertension, and rheumatoid arthritis who presents to the office for follow-up after hospital admission. 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 She recovered well. She was diagnosed with orthostatic hypotension during her hospital admission. Since hospital discharge, she has been doing well. She has regained most of her functional capacity. She denies shortness of breath or dyspnea on exertion. She has done well on reduced dose of antihypertensive medications with decrease episodes of lightheadedness or dizziness. She denies symptoms of palpitations, heart racing, or skipped heartbeats. PAST MEDICAL HISTORY Diagnosis Date Advance care planning 04/01/2022 Daughter Noemy Arrhythmia Benign neoplasm of colon Chronic kidney disease 02/09/2015 Diverticulosis of colon (without mention of hemorrhage) IFG (impaired fasting glucose) 03/2022 Incisional hernia 07/06/2015 Internal hemorrhoids without mention of complication Rheumatoid arthritis(714.0) Rheumatoid arthritis(714.0) Sicca syndrome (HCC) Unspecified essential hypertension PAST SURGICAL HISTORY Procedure Laterality Date CATARACT EXTRACTION HX 10/12/2004 COLONOSCOPY FLX DX W/COLLJ SPEC WHEN PFRMD 09/30/2005 Colonoscopy COLONOSCOPY FLX DX W/COLLJ SPEC WHEN PFRMD 07/28/2016 Colonoscopy COLONOSCOPY SCREENING 09/30/2022 multiple adenomatous polyps, repeat in 3 yrs ESOPHAGOGASTRODUODENOSCOPY TRANSORAL DIAGNOSTIC 12/21/2014 EGD LAPAROSCOPY SURG CHOLECYSTECTOMY 02/20/2015 NEUROPLASTY &/TRANSPOS MEDIAN NRV CARPAL TUNNE 02/12/2006 Carpal tunnel decomp Left NEUROPLASTY &/TRANSPOS MEDIAN NRV CARPAL TUNNE 02/27/2006 Carpal tunnel decomp Right PAST SURGICAL HISTORY OF 10/12/2001 hemorrhoidectomy , bladder, and umbilical hernia repair PAST SURGICAL HISTORY OF 08/12/2006 bladder suspension REPAIR FIRST ABDOMINAL WALL HERNIA 07/06/2015 with mesh VAGINAL HYSTERECTOMY UTERUS 250 GM/< 10/12/1983 Hysterectomy, vaginal and bladder tacked up SOCIAL HISTORY Social History Tobacco Use Smoking status: Never Smokeless tobacco: Never Vaping Use Vaping status: Never Used Substance Use Topics Alcohol use: No Drug use: No FAMILY HISTORY Problem Relation Age of Onset Diabetes Mother Hypertension Mother Heart Father Diabetes Sister No Known Problems Sister No Known Problems Brother Heart Brother No Known Problems Brother ALLERGIES: ALLERGIES Allergen Reactions Floxin [Ofloxacin] Anaphylaxis Bumex [Bumetanide] Intolerance Hydrochlorothiazide Rash, Intolerance leucocytoclastic vasculitis Keflex [Cephalexin] Rash Naproxen Rash, Hives Norvasc [Amlodipine* Intolerance Penicillins Intolerance Rash Proctosol [Hydrocor* Intolerance Sulfa (Sulfonamide * Rash, GI Upset Colchicine Hives Minoxidil Other: See Comments facial hair MEDICATIONS: allopurinol (ZYLOPRIM) 100 mg tablet Take 1 tablet by mouth once daily. Cholecalciferol, Vitamin D3, 50 mcg (2,000 unit) cap Take 1 capsule by mouth once daily. cyanocobalamin (VITAMIN B-12) 1,000 mcg tab Take 1 tablet by mouth every other day in the morning. amiodarone (PACERONE) 200 mg tablet Take 1 tablet by mouth once daily. Take at 8 am apixaban (ELIQUIS) 5 mg tab(s) Take 1 tablet by mouth two times a day. Take at 8 am and at 8 pm furosemide (LASIX) 20 mg tablet Take 1 tablet by mouth once daily. In the morning at 8 am levothyroxine (LEVOXYL) 75 mcg tablet Take 1 tablet by mouth once daily. Take at 6 am, Take on empty stomach. For Thyroid atorvastatin (LIPITOR) 20 mg tablet Take 1 tablet by mouth once daily. At 8 pm DULoxetine (CYMBALTA) 30 mg capsule Take 1 capsule by mouth once daily. Take at 8 am folic acid 1 mg tablet Take 2 tablets by mouth once daily. Take at 8 am loratadine (CLARITIN) 10 mg tablet Take 1 tablet by mouth once daily. Take at 8 am metoprolol tartrate, short acting, (LOPRESSOR) 50 mg tablet Take 1 tablet by mouth every 12 hours. Take at 8 am and at 8 pm Vit A,C and Q-Aagtqi-Gajaoqrp (OCUVITE WITH LUTEIN) 300 mcg-200 mg-27 mg-2 mg tab Take 1 tablet by mouth once daily. Take at 8 am potassium chloride ER (KLOR-CON M10) 10 mEq tablet Take 1 tablet by mouth two times a day. Take at 8 am and at 8 pm polyethylene glycol 3350 17 gram packet Take 1 packet by mouth two times a day. Dissolve dose in 4 - 8 ounces of liquid and take as directed. nystatin (NYSTOP) powder Apply 1 application to affected area four times a day as needed. Yeast infection/rash in groin and under breasts ketoconazole (NIZORAL) 2 % cream Apply to affected area two times a day. triamcinolone acetonide (KENALOG) 0.1 % cream Apply 1 application to affected area two times a day as needed (rash). Apply sparingly to area for rash/itching. dicyclomine (BENTYL) 10 mg capsule Take 1 capsule by mouth before meals and at bedtime. For diarrhea or abdominal cramping triamcinolone acetonide (KENALOG) 0.1 % cream Apply 1 application to affected area twice daily. On rash, Apply sparingly to area for rash/itching. vit A/vit C/vit E/zinc/copper (OCUVITE PRESERVISION ORAL) Take by mouth twice daily. apremilast (OTEZLA) 30 mg tablet Take 30 mg by mouth twice daily. hydrocortisone probutate 0.1 % crea Apply to affected area once daily as needed. acetaminophen (TYLENOL) 325 mg tablet Take 650 mg by mouth every 6 hours as needed. senna-docusate (SENNA-S) 8.6-50 mg per tablet Take 1 tablet by mouth two times a day. (Patient not taking: Reported on 03/27/2025) REVIEW OF SYSTEMS: Review of Systems Constitutional: Negative for chills, fever, malaise/fatigue and weight loss. HENT: Negative for hearing loss and sore throat. Eyes: Negative for blurred vision and double vision. Respiratory: Negative. Cardiovascular: Negative for palpitations. Gastrointestinal: Negative. Genitourinary: Negative for dysuria, frequency, hematuria and urgency. Musculoskeletal: Positive for joint pain. Skin: Negative. Neurological: Negative for dizziness, seizures, loss of consciousness, weakness and headaches. Endo/Heme/Allergies: Negative for environmental allergies. Does not bruise/bleed easily. Psychiatric/Behavioral: Negative for depression. PHYSICAL EXAMINATION: BP 166/80 (BP Site: Right Arm, BP Position: Sitting, BP Cuff Size: Large Adult) Pulse (!) 59 Resp 12 Ht 162.6 cm (5' 4) Wt 68.9 kg (152 lb) SpO2 97% BMI 26.09 kg/m General: Pleasant woman sitting appears comfortable and in no apparent distress. She is alert and oriented x3 HEENT: Carotid upstrokes are brisk bilaterally without bruits. No JVD appreciated. Pulmonary: Lungs are clear no rales, wheezes, or rhonchi. Cardiovascular: Normal S1-S2. Irregularly irregular rhythm noted. Some evidence of bradycardia. Holosystolic 2/6 murmur at the apex in the axilla. Extremities: Warm, well-perfused, no lower extremity edema. Dorsalis pedis and posterior tibial pulses are 1-2+. CARDIOVASCULAR MEDICINE TESTING: ECG office 08/01/2024: Sinus rhythm with frequent PACs. During monitoring there appeared to be some evidence of atrial fibrillation although not clear. First-degree AV block. Nonspecific ST-T wave changes ECG in the office 09/29/2022: Normal sinus rhythm with sinus arrhythmia. First-degree AV block (244 ms). Occasional PVCs. No significant ST or T wave changes ECG in the office 09/02/2021: Normal sinus rhythm with first-degree AV block and occasional conducted PACs. Nonspecific ST-T wave changes noted in leads V1 through V3 Lexiscan Cardiolite stress test 07/15/2016: Soft tissue attenuation artifact. No evidence of myocardial ischemia or scar Gated study reports of left ventricular ejection fraction of 77% Echocardiogram 01/11/2025: - The left ventricle is normal in size. There is mild left ventricular hypertrophy. Left ventricular systolic function is normal. EF = 60 5% (visual est.) Definity contrast used for endocardial border detection. Indeterminate left ventricular diastolic function due to E/A fusion. - The right ventricle is normal in size. Right ventricular systolic function is normal. - Exam was compared with the prior echocardiographic exam performed on 05/03/2024. No mitral regurgation seen on today's exam. Echocardiogram 10/13/2024: Normal LV size. Left ventricular systolic function is normal. The left ventricular ejection fraction is 55 %. Pulmonary artery systolic pressure is 40 mmHg. Contrast injection was performed. Echocardiogram 05/03/2024: - Technically difficult exam due to body habitus. - Exam indication: Ascending aortic aneurysm - The left ventricle is normal in size. There is mild concentric left ventricular hypertrophy. Left ventricular systolic function is normal. EF = 54 5% (2D biplane) Indeterminate left ventricular diastolic dysfunction. - The right ventricle is normal in size. Right ventricular systolic function is normal. - The visualized aorta is dilated with a maximal dimension of 4.1 cm. - There is moderate (2+) mitral valve regurgitation. Borderline mitral valve prolapse. - Exam was compared with the prior CC echocardiographic exam performed on 04/17/2023, with increase in mitral regurgitation and previous aortic size measured at 3.8 cm. Echocardiogram 04/17/2023: - The left ventricle is normal in size. Left ventricular systolic function is normal. EF = 55 5% (2D 4-ch.) Indeterminate left ventricular diastolic dysfunction. - The right ventricle is normal in size. Right ventricular systolic function is normal. - The left atrial cavity is mildly dilated. - The visualized aorta is borderline dilated with a maximal dimension of 3.8 cm. - There are no significant valvular abnormalities. - Exam was compared with the prior CC echocardiographic exam performed on 06/07/2020, no significant change. Echocardiogram 06/07/2020: - Technically difficult exam due to body habitus. - Exam indication: Shortness of Breath - The left ventricle is normal in size. Left ventricular systolic function is normal. EF = 58 5% (2D biplane) Indeterminate left ventricular diastolic dysfunction due to inconsistent or technically suboptimal data. - The right ventricle is normal in size. Right ventricular systolic function is normal. - There are no significant valvular abnormalities. - The visualized aorta is borderline dilated with a maximal dimension of 3.8 cm. - Estimated right ventricular systolic pressure is 38 mmHg consistent with mild pulmonary hypertension. Estimated right atrial pressure is 8 mmHg based on IVC assessment. - Exam was compared with the prior CC echocardiographic exam performed on 08/12/2011 (Stress), MR appears a little bit less today. Extended Monitoring-[employer] Patch Enrollment Dates: 08/01/2024-08/15/2024 IRHYTHM FINDINGS: Patient had a min HR of 45 bpm, max HR of 155 bpm, and avg HR of 69 bpm. Predominant underlying rhythm was Atrial Fibrillation. First Degree AV Block was present. 10 Supraventricular Tachycardia runs occurred, the run with the fastest interval lasting 7 beats with a max rate of 104 bpm (avg 96 bpm); the run with the fastest interval was also the longest. Atrial Fibrillation occurred (58% burden), ranging from 45-155 bpm (avg of 75 bpm), the longest lasting 7 days 16 hours with an avg rate of 73 bpm. Atrial Fibrillation was detected within +/- 45 seconds of symptomatic patient event(s). Isolated SVEs were frequent (5.9%, [id number]), SVE Couplets were rare (<1.0%, 4227), and SVE Triplets were frequent (7.6%, [id number]). Isolated VEs were occasional (3.5%, [id number]), and no VE Couplets or VE Triplets were present. Ventricular Trigeminy was present. IMPRESSION: Ms. Crane is a 84 year old woman with paroxysmal atrial fibrillation, chronic diastolic heart failure, hypertension, dyslipidemia, and mild pulmonary hypertension who presents for follow-up after recent hospital admission. PLAN AND RECOMMENDATIONS: 1. Paroxysmal atrial fibrillation (HCC) - ICD9: 427.31, ICD10: I48.0 (primary diagnosis) Maintaining sinus rhythm and amiodarone. She is on Eliquis for stroke risk reduction 2. Pulmonary hypertension (HCC) - ICD9: 416.8, ICD10: I27.20 3. Chronic diastolic congestive heart failure (HCC) - ICD9: 428.32, 428.0, ICD10: I50.32 Well-controlled on low-sodium diet 4. Nonrheumatic mitral valve regurgitation - ICD9: 424.0, ICD10: I34.0 Mild to moderate mitral regurgitation on echocardiogram January 2025. No change on physical examination 5. Hypertension, essential - ICD9: 401.9, ICD10: I10 Adequate troll given her history of orthostatic hypotension and syncopal episodes. 6. Orthostatic hypotension - ICD9: 458.0, ICD10: I95.1 7. 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 No indication for further testing 8. Mixed hyperlipidemia - ICD9: 272.2, ICD10: E78.2 Maintained on Lipitor 20 mg daily. Fasting blood work from January 2025 was reviewed. LDL cholesterol 41 mg/dL Rasheed Barrios MD documented in this encounter [facility] 03-27-2025 Note HNO ID: [id number] Author: RASHEED BARRIOS MD Service: ? Author Type: Physician Type: Progress Notes Filed: 03/27/2025 11:26 Note Text: [facility] Cardiology ([facility]) [address] [facility] [id number] OUTPATIENT VISIT DATE 03/27/2025 PRIMARY CARE PHYSICIAN: Atul Harvey [address] [place] [address] HISTORY OF PRESENT ILLNESS: Ms. Crane is a 84 year old woman with history of paroxysmal atrial fibrillation, mild pulmonary hypertension, essential hypertension, and rheumatoid arthritis who presents to the office for follow-up after hospital admission. 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 She recovered well. She was diagnosed with orthostatic hypotension during her hospital admission. Since hospital discharge, she has been doing well. She has regained most of her functional capacity. She denies shortness of breath or dyspnea on exertion. She has done well on reduced dose of antihypertensive medications with decrease episodes of lightheadedness or dizziness. She denies symptoms of palpitations, heart racing, or skipped heartbeats. PAST MEDICAL HISTORY Diagnosis Date Advance care planning 04/01/2022 Daughter Noemy Arrhythmia Benign neoplasm of colon Chronic kidney disease 02/09/2015 Diverticulosis of colon (without mention of hemorrhage) IFG (impaired fasting glucose) 03/2022 Incisional hernia 07/06/2015 Internal hemorrhoids without mention of complication Rheumatoid arthritis(714.0) Rheumatoid arthritis(714.0) Sicca syndrome (HCC) Unspecified essential hypertension PAST SURGICAL HISTORY Procedure Laterality Date CATARACT EXTRACTION HX 10/12/2004 COLONOSCOPY FLX DX W/COLLJ SPEC WHEN PFRMD 09/30/2005 Colonoscopy COLONOSCOPY FLX DX W/COLLJ SPEC WHEN PFRMD 07/28/2016 Colonoscopy COLONOSCOPY SCREENING 09/30/2022 multiple adenomatous polyps, repeat in 3 yrs ESOPHAGOGASTRODUODENOSCOPY TRANSORAL DIAGNOSTIC 12/21/2014 EGD LAPAROSCOPY SURG CHOLECYSTECTOMY 02/20/2015 NEUROPLASTY AND/TRANSPOS MEDIAN NRV CARPAL TUNNE 02/12/2006 Carpal tunnel decomp Left NEUROPLASTY AND/TRANSPOS MEDIAN NRV CARPAL TUNNE 02/27/2006 Carpal tunnel decomp Right PAST SURGICAL HISTORY OF 10/12/2001 hemorrhoidectomy , bladder, and umbilical hernia repair PAST SURGICAL HISTORY OF 08/12/2006 bladder suspension REPAIR FIRST ABDOMINAL WALL HERNIA 07/06/2015 with mesh VAGINAL HYSTERECTOMY UTERUS 250 GM/< 10/12/1983 Hysterectomy, vaginal and bladder tacked up SOCIAL HISTORY Social History Tobacco Use Smoking status: Never Smokeless tobacco: Never Vaping Use Vaping status: Never Used Substance Use Topics Alcohol use: No Drug use: No FAMILY HISTORY Problem Relation Age of Onset Diabetes Mother Hypertension Mother Heart Father Diabetes Sister No Known Problems Sister No Known Problems Brother Heart Brother No Known Problems Brother ALLERGIES: ALLERGIES Allergen Reactions Floxin [Ofloxacin] Anaphylaxis Bumex [Bumetanide] Intolerance Hydrochlorothiazide Rash, Intolerance leucocytoclastic vasculitis Keflex [Cephalexin] Rash Naproxen Rash, Hives Norvasc [Amlodipine* Intolerance Penicillins Intolerance Rash Proctosol [Hydrocor* Intolerance Sulfa (Sulfonamide * Rash, GI Upset Colchicine Hives Minoxidil Other: See Comments facial hair MEDICATIONS: allopurinol (ZYLOPRIM) 100 mg tablet Take 1 tablet by mouth once daily. Cholecalciferol, Vitamin D3, 50 mcg (2,000 unit) cap Take 1 capsule by mouth once daily. cyanocobalamin (VITAMIN B-12) 1,000 mcg tab Take 1 tablet by mouth every other day in the morning. amiodarone (PACERONE) 200 mg tablet Take 1 tablet by mouth once daily. Take at 8 am apixaban (ELIQUIS) 5 mg tab(s) Take 1 tablet by mouth two times a day. Take at 8 am and at 8 pm furosemide (LASIX) 20 mg tablet Take 1 tablet by mouth once daily. In the morning at 8 am levothyroxine (LEVOXYL) 75 mcg tablet Take 1 tablet by mouth once daily. Take at 6 am, Take on empty stomach. For Thyroid atorvastatin (LIPITOR) 20 mg tablet Take 1 tablet by mouth once daily. At 8 pm DULoxetine (CYMBALTA) 30 mg capsule Take 1 capsule by mouth once daily. Take at 8 am folic acid 1 mg tablet Take 2 tablets by mouth once daily. Take at 8 am loratadine (CLARITIN) 10 mg tablet Take 1 tablet by mouth once daily. Take at 8 am metoprolol tartrate, short acting, (LOPRESSOR) 50 mg tablet Take 1 tablet by mouth every 12 hours. Take at 8 am and at 8 pm Vit A,C and T-Hmovmi-Tsdnqjkh (OCUVITE WITH LUTEIN) 300 mcg-200 mg-27 mg-2 mg tab Take 1 tablet by mouth once daily. Take at 8 am potassium chloride ER (KLOR-CON M10) 10 mEq tablet Take 1 tablet by (more content not included)... [facility] 02-17-2025 Telephone encounter Note Felicitas informed. [facility] 02-17-2025 Miscellaneous Notes Felicitas informed. Okay to discontinue oxygen- please notify The following approved medication requests have been transmitted electronically. Requested Prescriptions Signed Prescriptions Disp Refills allopurinol (ZYLOPRIM) 100 mg tablet 90 tablet 3 Sig: Take 1 tablet by mouth once daily. Authorizing Provider: ATUL HARVEY Cholecalciferol, Vitamin D3, 50 mcg (2,000 unit) cap 90 capsule 3 Sig: Take 1 capsule by mouth once daily. Authorizing Provider: ATUL HARVEY cyanocobalamin (VITAMIN B-12) 1,000 mcg tab 90 tablet 3 Sig: Take 1 tablet by mouth every other day in the morning. Authorizing Provider: ATUL HARVEY DO Felicitas [facility] called in and reports she is hoping to discharge Pt next week. She is asking if provider would be comfortable discontinuing the O2 order for the Pt at [facility]. She states the last 2 weeks she has been seeing the Pt she has not been using the O2. She said she walked the Pt around her house for 5 min and she stayed at 92% the whole time and moves really well and doesn't get SOB. She also reports they are working on getting the Pts medication pre-packaged through [facility]. She said the Allopurinol had not been sent through. She asked if the Preservison could be sent, and the system wouldn't allow me. The she was asking if the provider would send the Pt Vit D and Vit B12. I let her know the Pts B12 level was high and has been for about 2 years, so the provider may want her to cut back on that. Pts Vit D was up to 61.8, when it had been running in the 40s. I told her I would let provider know and see what she wanted to do. Please call Felicitas back so she can update Pts med list. The patient has been identified by name and date of : Yes Caregiver verified no other encounters exist for this prescription request: Yes Caregiver confirmed with patient/requestor that no other refills are due, in the near future, with this provider at this time: Yes The last office visit in the department: 02/07/2025 Does the patient have a future office visit with this provider/department: Yes 05/22/2025 Requested Prescriptions Pending Prescriptions Disp Refills allopurinol (ZYLOPRIM) 100 mg tablet 90 tablet 3 Sig: Take 1 tablet by mouth once daily. Cholecalciferol, Vitamin D3, 50 mcg (2,000 unit) cap Sig: Take 1 capsule by mouth once daily. cyanocobalamin (VITAMIN B-12) 1,000 mcg tab Sig: Take 1 tablet by mouth every other day in the morning. Christel Wagner RN February 15, 2025 11:44 AM documented in this encounter [facility] 02-17-2025 Telephone encounter Note Okay to discontinue oxygen- please notify The following approved medication requests have been transmitted electronically. Requested Prescriptions Signed Prescriptions Disp Refills allopurinol (ZYLOPRIM) 100 mg tablet 90 tablet 3 Sig: Take 1 tablet by mouth once daily. Authorizing Provider: ATUL HARVEY Cholecalciferol, Vitamin D3, 50 mcg (2,000 unit) cap 90 capsule 3 Sig: Take 1 capsule by mouth once daily. Authorizing Provider: ATUL HARVEY cyanocobalamin (VITAMIN B-12) 1,000 mcg tab 90 tablet 3 Sig: Take 1 tablet by mouth every other day in the morning. Authorizing Provider: ATUL HARVEY DO [facility] 02-15-2025 Telephone encounter Note Felicitas RN [facility] called in and reports she is hoping to discharge Pt next week. She is asking if provider would be comfortable discontinuing the O2 order for the Pt at [facility]. She states the last 2 weeks she has been seeing the Pt she has not been using the O2. She said she walked the Pt around her house for 5 min and she stayed at 92% the whole time and moves really well and doesn't get SOB. She also reports they are working on getting the Pts medication pre-packaged through [facility]. She said the Allopurinol had not been sent through. She asked if the Preservison could be sent, and the system wouldn't allow me. The she was asking if the provider would send the Pt Vit D and Vit B12. I let her know the Pts B12 level was high and has been for about 2 years, so the provider may want her to cut back on that. Pts Vit D was up to 61.8, when it had been running in the 40s. I told her I would let provider know and see what she wanted to do. Please call Felicitas back so she can update Pts med list. The patient has been identified by name and date of : Yes Caregiver verified no other encounters exist for this prescription request: Yes Caregiver confirmed with patient/requestor that no other refills are due, in the near future, with this provider at this time: Yes The last office visit in the department: 02/07/2025 Does the patient have a future office visit with this provider/department: Yes 05/22/2025 Requested Prescriptions Pending Prescriptions Disp Refills allopurinol (ZYLOPRIM) 100 mg tablet 90 tablet 3 Sig: Take 1 tablet by mouth once daily. Cholecalciferol, Vitamin D3, 50 mcg (2,000 unit) cap Sig: Take 1 capsule by mouth once daily. cyanocobalamin (VITAMIN B-12) 1,000 mcg tab Sig: Take 1 tablet by mouth every other day in the morning. Christel Wagner RN February 15, 2025 11:44 AM [facility] 02-13-2025 Telephone encounter Note Prescription Refill Information The patient has been identified by name and date of : Yes Caregiver verified no other encounters exist for this prescription request: Yes Caregiver confirmed with patient/requestor that no other refills are due, in the near future, with this provider at this time: Yes The last office visit in the department: 11/07/24 Does the patient have a future office visit with this provider/department: Yes Requested Prescriptions Pending Prescriptions Disp Refills amiodarone (PACERONE) 200 mg tablet 90 tablet 3 Sig: Take 1 tablet by mouth once daily. Take at 8 am apixaban (ELIQUIS) 5 mg tab(s) 180 tablet 3 Sig: Take 1 tablet by mouth two times a day. Take at 8 am and at 8 pm Cheli Garcia LPN February 13, 2025 1:43 PM [facility] 02-13-2025 Miscellaneous Notes Prescription Refill Information The patient has been identified by name and date of : Yes Caregiver verified no other encounters exist for this prescription request: Yes Caregiver confirmed with patient/requestor that no other refills are due, in the near future, with this provider at this time: Yes The last office visit in the department: 11/07/24 Does the patient have a future office visit with this provider/department: Yes Requested Prescriptions Pending Prescriptions Disp Refills amiodarone (PACERONE) 200 mg tablet 90 tablet 3 Sig: Take 1 tablet by mouth once daily. Take at 8 am apixaban (ELIQUIS) 5 mg tab(s) 180 tablet 3 Sig: Take 1 tablet by mouth two times a day. Take at 8 am and at 8 pm Cheli Garcia LPN February 13, 2025 1:43 PM documented in this encounter [facility] 02-09-2025 Telephone encounter Note Phoned Felicitas and went over notes from A Aleksander VARIETY SAW OPERATOR with understanding. [facility] 02-09-2025 Miscellaneous Notes Phoned Felicitas and went over notes from A Aleksander VARIETY SAW OPERATOR with understanding. Yes, she should be taking allopurinol. This is on medication list and recently refilled. OK with crestor until [facility] sets up daily packages. Thank you, Milana Armijo APRN.FELICIA Felicitas from [facility] calling to check if patient should be taking her Allopurinol 100 mg one tablet daily? She did a medication organizer for a week and patient had generic Crestor 10 mg in home, using it instead of the Atorvastatin 20 mg since [facility] not setting up bubble packs for about 7 to 10 days. Please advise documented in this encounter [facility] 02-09-2025 Telephone encounter Note Yes, she should be taking allopurinol. This is on medication list and recently refilled. OK with crestor until [facility] sets up daily packages. Thank you, Milana Armijo APRN.GROCERY BAGGER [facility] 02-08-2025 Telephone encounter Note Felicitas from [facility] calling to check if patient should be taking her Allopurinol 100 mg one tablet daily? She did a medication organizer for a week and patient had generic Crestor 10 mg in home, using it instead of the Atorvastatin 20 mg since [facility] not setting up bubble packs for about 7 to 10 days. Please advise [facility] 02-08-2025 Telephone encounter Note Daughter, Noemy, and below message given. Patient has an appointment on Thursday and will discuss with MD at that time. Tracy Rawls RN [facility] 02-08-2025 Miscellaneous Notes Daughter, Noemy, and below message given. Patient has an appointment on Thursday and will discuss with MD at that time. Tracy Rawls RN Images from the original note were not included. Velma Montes APRN.Elizabeth Lai MA2 hours ago (11:54 AM) ASA does not offer for stroke risk reduction in the setting of a-fib and is not an appropriate substitute for eliquis. Thank you, Velma Montes APRN.GROCERY BAGGER Pt's daughter and POA calling to see if pt can switch from Eliquis to Aspirin. Daughter states that told them to check with Cardiology to see if this was an option. They have 2 days of Eliquis and then they will make a new 30 day pill pack for her. The cost is significant. Advised that pt has appt on Thursday and would most likely need to be assesed by the Tank Car Reconditioner prior to making any changes. 01/10/25 EKG still showing A fib. Daughter would like to ask Tank Car Reconditioner if it is an option to switch from Eliquis to Aspirin prior to the appt on Thursday. If so, they will have us fax the order to [facility] in [place]. Please review and advise. Elizabeth Yeh MA documented in this encounter [facility] 02-08-2025 Telephone encounter Note Images from the original note were not included. Velma Montes APRN.Elizabeth Lai MA2 hours ago (11:54 AM) ASA does not offer for stroke risk reduction in the setting of a-fib and is not an appropriate substitute for eliquis. Thank you, Velma Montes APRN.GROCERY BAGGER [facility] 02-07-2025 Telephone encounter Note Pt's daughter and POA calling to see if pt can switch from Eliquis to Aspirin. Daughter states that told them to check with Cardiology to see if this was an option. They have 2 days of Eliquis and then they will make a new 30 day pill pack for her. The cost is significant. Advised that pt has appt on Thursday and would most likely need to be assesed by the Tank Car Reconditioner prior to making any changes. 01/10/25 EKG still showing A fib. Daughter would like to ask Tank Car Reconditioner if it is an option to switch from Eliquis to Aspirin prior to the appt on Thursday. If so, they will have us fax the order to [facility] in [place]. Please review and advise. Elizabeth Yeh MA [facility] 02-07-2025 Atul Linda, - 02/07/2025 10:46 AM EDT Ask the Tank Car Reconditioner about do we need to stop the Eliquis medication and start on Aspirin instead? Is she a candidate for ablation instead of being on a blood thinner? documented in this encounter [facility] 02-07-2025 Note HNO ID: [id number] Author: ATUL HARVEY DO Service: ? Author Type: Physician Type: Progress Notes Filed: 02/07/2025 16:34 Note Text: Had RSV viral infection and was seen in the hospital. She was diagnsoed with atrial fibrillation and started on anticoagulant Then later fell against her left side and then 2-3 weeks after this fell when she tripped over her cat- falling against her left side. She was assessed by [facility] and had xrays to make sure no fractures or bone injuries overall. The specialist wasn't sure where the pain was happening Was started on PHYSICAL THERAPY at home with benefit x multiple episodes Started not feeling well at 12 midnight- felt that she was lightheaded and dizzy, she was sitting on the toilet and felt like she was going to pass out- she did fall against the edge of her bathtub and passed out before her family was able to come to help her, they live right beside her. She had a distended abdomen area and was jaundiced and her left flank was painful and was also having a lot of left shoulder pain as well for referral. Her daughter and son in law took her to the hospital EMERGENCY DEPARTMENT. On 01/06/25 she was seen in the EMERGENCY DEPARTMENT and had CT abdomen and pelvis- she had a spleen laceration and bleeding into the abdominal wall. She had 5 units of PRBC before she was transported to another hospital for potential surgery at [facility]. Had surgery by Dr. Acevedo and Dr. 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 Last saw Tank Car Reconditioner in Oct at [facility]- he is managing the blood thinners. Was transported to [facility] for 11 days after discharge home Was on oxygen therapy after this episode but oxygen levels at home have stayed stable CC: Mary Crane is a 84 year old female who presents to the office for Hospital follow up HPI: Patient is present with her daughter Samanta today in the office Feels that she had a downward spiral in her health After she had RSV viral infection and was seen in the hospital for her symptoms. 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 Then later fell against her left side and then 2-3 weeks after this fell when she tripped over her cat- falling against her left side. She was assessed by [facility] and had xrays to make sure no fractures or bone injuries overall. The specialist wasn't sure where the pain was happening from as the trigger. Was started on PHYSICAL THERAPY at home with benefit x multiple episodes Started not feeling well at 12 midnight on 01/06- felt that she was lightheaded and dizzy, she was sitting on the toilet and felt like she was going to pass out- she did fall against the edge of her bathtub and passed out before her family was able to come to help her, they live right beside her. She had a distended abdomen area and was jaundiced and her left flank was painful and was also having a lot of left shoulder pain as well for referral. Her daughter and son in law took her to the hospital EMERGENCY DEPARTMENT. On 01/06/25 she was seen in the EMERGENCY DEPARTMENT and had CT abdomen and pelvis- she had a spleen laceration and bleeding into the abdominal wall. She had 5 units of PRBC before she was transported to another hospital for potential surgery at [facility]. 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 Last saw Tank Car Reconditioner in Oct at [facility]- he is managing the blood thinners. She has an upcoming appt next week to discuss forward plans with her medication Bowel health is back to normal- denies constipation Mood, stable, has a lot of support from her family She transported to [facility] for 11 days after discharge from the hospital. She has now been home for 4 days. Was on oxygen therapy after this episode but oxygen levels at home have stayed stable. She would like to discontinue this if able since doesn't feel she is having any dyspnea symptoms. PAST MEDICAL HISTORY Diagnosis Date Advance care planning 04/01/2022 Daughter Noemy Arrhythmia Benign neoplasm of colon Chronic kidney disease 02/09/2015 Diverticulosis of colon (without mention of hemorrhage) IFG (impaired fasting glucose) 03/2022 Incisional hernia 07/06/2015 Internal hemorrhoids without mention of complication Rheumatoid arthritis(714.0) Rheumatoid arthritis(714.0) Sicca syndrome (HCC) Unspecified essential hypertension PAST SURGICAL HISTORY Procedure Laterality Date CATARACT EXTRACTION HX 10/12/2004 COLONOSCOPY FLX DX W/COLLJ SPEC WHEN PFRMD 09/30/2005 Colonoscopy COLONOSCOPY FLX DX W/COLLJ SPEC WHEN PFRMD 07/28/2016 Colonoscopy COLONOSCOPY SCREENING 09/30/2022 multiple adenomatous polyps, repeat in 3 yrs ESOPHAGOGASTRODUODENOSCOPY TRANSORAL DIAGNOSTIC 12/21/2014 EGD L (more content not included)... [facility] 02-07-2025 History of Presen t illness Narrative Had RSV viral infection and was seen in the hospital. She was diagnsoed with atrial fibrillation and started on anticoagulant Then later fell against her left side and then 2-3 weeks after this fell when she tripped over her cat- falling against her left side. She was assessed by [facility] and had xrays to make sure no fractures or bone injuries overall. The specialist wasn't sure where the pain was happening Was started on PHYSICAL THERAPY at home with benefit x multiple episodes Started not feeling well at 12 midnight- felt that she was lightheaded and dizzy, she was sitting on the toilet and felt like she was going to pass out- she did fall against the edge of her bathtub and passed out before her family was able to come to help her, they live right beside her. She had a distended abdomen area and was jaundiced and her left flank was painful and was also having a lot of left shoulder pain as well for referral. Her daughter and son in law took her to the hospital EMERGENCY DEPARTMENT. On 01/06/25 she was seen in the EMERGENCY DEPARTMENT and had CT abdomen and pelvis- she had a spleen laceration and bleeding into the abdominal wall. She had 5 units of PRBC before she was transported to another hospital for potential surgery at [facility]. Had surgery by Dr. Acevedo and Dr. 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 Last saw Tank Car Reconditioner in Oct at [facility]- he is managing the blood thinners. Was transported to [facility] for 11 days after discharge home Was on oxygen therapy after this episode but oxygen levels at home have stayed stable CC: Mary Crane is a 84 year old female who presents to the office for Hospital follow up HPI: Patient is present with her daughter Samanta today in the office Feels that she had a downward spiral in her health After she had RSV viral infection and was seen in the hospital for her symptoms. 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 Then later fell against her left side and then 2-3 weeks after this fell when she tripped over her cat- falling against her left side. She was assessed by [facility]ics office and had xrays to make sure no fractures or bone injuries overall. The specialist wasn't sure where the pain was happening from as the trigger. Was started on PHYSICAL THERAPY at home with benefit x multiple episodes Started not feeling well at 12 midnight on 01/06- felt that she was lightheaded and dizzy, she was sitting on the toilet and felt like she was going to pass out- she did fall against the edge of her bathtub and passed out before her family was able to come to help her, they live right beside her. She had a distended abdomen area and was jaundiced and her left flank was painful and was also having a lot of left shoulder pain as well for referral. Her daughter and son in law took her to the hospital EMERGENCY DEPARTMENT. On 01/06/25 she was seen in the EMERGENCY DEPARTMENT and had CT abdomen and pelvis- she had a spleen laceration and bleeding into the abdominal wall. She had 5 units of PRBC before she was transported to another hospital for potential surgery at [facility]. 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 Last saw Tank Car Reconditioner in Oct at [facility]- he is managing the blood thinners. She has an upcoming appt next week to discuss forward plans with her medication Bowel health is back to normal- denies constipation Mood, stable, has a lot of support from her family She transported to [facility] for 11 days after discharge from the hospital. She has now been home for 4 days. Was on oxygen therapy after this episode but oxygen levels at home have stayed stable. She would like to discontinue this if able since doesn't feel she is having any dyspnea symptoms. PAST MEDICAL HISTORY Diagnosis Date Advance care planning 04/01/2022 Daughter Noemy Arrhythmia Benign neoplasm of colon Chronic kidney disease 02/09/2015 Diverticulosis of colon (without mention of hemorrhage) IFG (impaired fasting glucose) 03/2022 Incisional hernia 07/06/2015 Internal hemorrhoids without mention of complication Rheumatoid arthritis(714.0) Rheumatoid arthritis(714.0) Sicca syndrome (HCC) Unspecified essential hypertension PAST SURGICAL HISTORY Procedure Laterality Date CATARACT EXTRACTION HX 10/12/2004 COLONOSCOPY FLX DX W/COLLJ SPEC WHEN PFRMD 09/30/2005 Colonoscopy COLONOSCOPY FLX DX W/COLLJ SPEC WHEN PFRMD 07/28/2016 Colonoscopy COLONOSCOPY SCREENING 09/30/2022 multiple adenomatous polyps, repeat in 3 yrs ESOPHAGOGASTRODUODENOSCOPY TRANSORAL DIAGNOSTIC 12/21/2014 EGD LAPAROSCOPY SURG CHOLECYSTECTOMY 02/20/2015 NEUROPLASTY &/TRANSPOS MEDIAN NRV CARPAL TUNNE 02/12/2006 Carpal tunnel decomp Left NEUROPLASTY &/TRANSPOS MEDIAN NRV CARPAL TUNNE 02/27/2006 Carpal tunnel decomp Right PAST SURGICAL HISTORY OF 10/12/2001 hemorrhoidectomy , bladder, and umbilical hernia repair PAST SURGICAL HISTORY OF 08/12/2006 bladder suspension REPAIR FIRST ABDOMINAL WALL HERNIA 07/06/2015 with mesh VAGINAL HYSTERECTOMY UTERUS 250 GM/< 10/12/1983 Hysterectomy, vaginal and bladder tacked up Current Outpatient Medications Medication Sig furosemide (LASIX) 20 mg tablet Take 1 tablet by mouth once daily. In the morning at 8 am levothyroxine (LEVOXYL) 75 mcg tablet Take 1 tablet by mouth once daily. Take at 6 am, Take on empty stomach. For Thyroid amiodarone (PACERONE) 200 mg tablet Take 1 tablet by mouth once daily. Take at 8 am atorvastatin (LIPITOR) 20 mg tablet Take 1 tablet by mouth once daily. At 8 pm apixaban (ELIQUIS) 5 mg tab(s) Take 1 tablet by mouth two times a day. Take at 8 am and at 8 pm DULoxetine (CYMBALTA) 30 mg capsule Take 1 capsule by mouth once daily. Take at 8 am folic acid 1 mg tablet Take 2 tablets by mouth once daily. Take at 8 am loratadine (CLARITIN) 10 mg tablet Take 1 tablet by mouth once daily. Take at 8 am metoprolol tartrate, short acting, (LOPRESSOR) 50 mg tablet Take 1 tablet by mouth every 12 hours. Take at 8 am and at 8 pm Vit A,C and T-Rgjjyf-Wxvyzvxj (OCUVITE WITH LUTEIN) 300 mcg-200 mg-27 mg-2 mg tab Take 1 tablet by mouth once daily. Take at 8 am potassium chloride ER (KLOR-CON M10) 10 mEq tablet Take 1 tablet by mouth two times a day. Take at 8 am and at 8 pm polyethylene glycol 3350 17 gram packet Take 1 packet by mouth two times a day. Dissolve dose in 4 - 8 ounces of liquid and take as directed. senna-docusate (SENNA-S) 8.6-50 mg per tablet Take 1 tablet by mouth two times a day. allopurinol (ZYLOPRIM) 100 mg tablet Take 1 tablet by mouth once daily. cholecalciferol, Vitamin D3, (VITAMIN D3) 1,250 mcg (50,000 unit) cap capsule Take 1 capsule by mouth one time a week. nystatin (NYSTOP) powder Apply 1 application to affected area four times a day as needed. Yeast infection/rash in groin and under breasts ketoconazole (NIZORAL) 2 % cream Apply to affected area two times a day. (Patient taking differently: Apply to affected area two times a day. PRN) triamcinolone acetonide (KENALOG) 0.1 % cream Apply 1 application to affected area two times a day as needed (rash). Apply sparingly to area for rash/itching. Cholecalciferol, Vitamin D3, 50 mcg (2,000 unit) cap Take 1 capsule by mouth once daily. dicyclomine (BENTYL) 10 mg capsule Take 1 capsule by mouth before meals and at bedtime. For diarrhea or abdominal cramping cyanocobalamin (VITAMIN B-12) 1,000 mcg tab Take 1,000 mcg by mouth every other day in the morning. triamcinolone acetonide (KENALOG) 0.1 % cream Apply 1 application to affected area twice daily. On rash, Apply sparingly to area for rash/itching. (Patient taking differently: Apply 1 application to affected area two times a day. On rash, Apply sparingly to area for rash/itching. Uses as needed) vit A/vit C/vit E/zinc/copper (OCUVITE PRESERVISION ORAL) Take by mouth twice daily. apremilast (OTEZLA) 30 mg tablet Take 30 mg by mouth twice daily. hydrocortisone probutate 0.1 % crea Apply to affected area once daily as needed. acetaminophen (TYLENOL) 325 mg tablet Take 650 mg by mouth every 6 hours as needed. No current facility-administered medications for this visit. ALLERGIES Allergen Reactions Floxin [Ofloxacin] Anaphylaxis Bumex [Bumetanide] Intolerance Hydrochlorothiazide Rash, Intolerance leucocytoclastic vasculitis Keflex [Cephalexin] Rash Naproxen Rash, Hives Norvasc [Amlodipine* Intolerance Penicillins Intolerance Rash Proctosol [Hydrocor* Intolerance Sulfa (Sulfonamide * Rash, GI Upset Colchicine Hives Minoxidil Other: See Comments facial hair Social History Tobacco Use Smoking status: Never Smokeless tobacco: Never Vaping Use Vaping status: Never Used Substance Use Topics Alcohol use: No Drug use: No ROS: See HPI PE: BP 124/72 Pulse 64 Temp (Src) 97 (Right Tympanic) Resp 20 Wt 146 lb (66.2kg) Gen: A&OX3, NAD, non-toxic appearing HEENT: PERRLA, EOMs intact b/l, nares without drainage, pharynx without erythema, exudate, lesions, or drainage. Uvula midline. Neck: No LAD, no thyromegaly, no meningismus. CV: RRR, no murmur Lungs: CTA b/l, no wheezing Abd: healing incision central ventral vertical without signs of infection Healing chest tube incision left chest wall without signs of infection or poor wound healing. Skin: No rashes, lesions, or wounds on exposed skin. ASSESSMENT/PLAN: 1. Spleen laceration into parenchyma, sequela - ICD9: 908.1, ICD10: S36.039S (primary diagnosis) She is overall doing well after splenectomy surgery 1 month ago She has had a follow up with surgeon and will follow up with boring mill operator for metal for discussion regarding if okay to continue her Eliquis or consider alternative for her paroxysmal atrial fibrillation. No pain, appetite is improving. Has help from her daughter Samanta whom she lives next to 2. Subclinical hypothyroidism - ICD9: 244.8, ICD10: E03.8 - Instructed patient on importance of taking on an empty stomach either first thing in the morning or at bedtime. - continue current dose of Synthroid 0.075 mg - LEVOTHYROXINE 75 MCG TABLET 3. Paroxysmal atrial fibrillation (HCC) - ICD9: 427.31, ICD10: I48.0 She is overall doing well after splenectomy surgery 1 month ago She has had a follow up with surgeon and will follow up with boring mill operator for metal for discussion regarding if okay to continue her Eliquis or consider alternative for her paroxysmal atrial fibrillation. No pain, appetite is improving. Has help from her daughter Samanta whom she lives next to - AMIODARONE 200 MG TABLET - APIXABAN 5 MG TABLET 4. Hypokalemia - ICD9: 276.8, ICD10: E87.6 She is overall doing well after splenectomy surgery 1 month ago She has had a follow up with surgeon and will follow up with boring mill operator for metal for discussion regarding if okay to continue her Eliquis or consider alternative for her paroxysmal atrial fibrillation. No pain, appetite is improving. Has help from her daughter Samanta whom she lives next to - POTASSIUM CHLORIDE ER 10 MEQ TABLET,EXTENDED RELEASE(PART/CRYST) 5. Generalized weakness - ICD9: 780.79, ICD10: R53.1 She is overall doing well after splenectomy surgery 1 month ago She has had a follow up with surgeon and will follow up with boring mill operator for metal for discussion regarding if okay to continue her Eliquis or consider alternative for her paroxysmal atrial fibrillation. No pain, appetite is improving. Has help from her daughter Samanta whom she lives next to Continue PHYSICAL THERAPY and exercises to strengthen- not to drive yet. 6. Hypertension, essential - ICD9: 401.9, ICD10: I10 - Controlled - Continue current medications - Recommend home blood pressure monitoring, to bring results to next visit - Encouraged sodium restriction, DASH or Mediterranean diet - Recommend regular aerobic exercise 7. Dyslipidemia - ICD9: 272.4, ICD10: E78.5 - Controlled - Counseled on healthy diet and regular exercise 8. H/O splenectomy - ICD9: V45.79, ICD10: Z90.81 She is overall doing well after splenectomy surgery 1 month ago She has had a follow up with surgeon and will follow up with boring mill operator for metal for discussion regarding if okay to continue her Eliquis or consider alternative for her paroxysmal atrial fibrillation. No pain, appetite is improving. Has help from her daughter Samanta whom she lives next to Atul Harvey DO Return if no improvement. Follow up with Atul Harvey DO. To ER if develops chest pain, shortness of breath. Discussed risks, benefits, alternatives, and potential side effects of medications. Patient/Guardian expressed understanding and agreed with the plan. See patient instructions. Atul Harvey DO [address] [place] [address] documented in this encounter [facility] 01-30-2025 Telephone encounter Note Areli with [facility] called and is notified of providers message and instructions. She voices understanding. Christel Wagner RN [facility] 01-30-2025 Miscellaneous Notes Areli with [facility] called and is notified of providers message and instructions. She voices understanding. Christel Wagner RN Yes, PCP team willing to follow. Thank you, Milana Armijo APRN.GROCERY BAGGER Courtney with [facility] called in and reports Pt is discharging from [facility]. She states they have orders for PT/OT/SN and is asking if the provider will follow. She states they hope to start on Thursday. Please call and advise. documented in this encounter [facility] 01-30-2025 Telephone encounter Note Yes, PCP team willing to follow. Thank you, Milana Armijo APRN.GROCERY BAGGER [facility] 01-27-2025 Telephone encounter Note Courtney with [facility] called in and reports Pt is discharging from [facility]. She states they have orders for PT/OT/SN and is asking if the provider will follow. She states they hope to start on Thursday. Please call and advise. [facility] 01-18-2025 Telephone encounter Note Called/left offering appointment 02/13/25 at 1pm. If they call back and accept the appointment it is ok to double book the patient in at that time. Tracy Rawls RN [facility] 01-18-2025 Miscellaneous Notes Called/left offering appointment 02/13/25 at 1pm. If they call back and accept the appointment it is ok to double book the patient in at that time. Tracy Rawls RN Rao from [facility] called to schedule appointment for patient with Dr. Barrios regarding medications. PSS unable to find sooner availability, unable to reach cardiology nurse. Please contact Rao by call her direct line ph. [phone]. Called FELICIA Sandoval to relay Dr. Barrios's reply. She verbalized understanding. Ellen Davison, JOSE Images from the original note were not included. Rasheed Barrios MD You16 hours ago (4:56 PM) Patient was recent admitted to the hospital with a fall and splenic injury and underwent operative repair. I was not consulted while she was in the hospital and she was not seen by cardiology. I have not seen her in the office since her hospital admission. I cannot review her medications as I have not seen the patient and do not know what was done during her hospital course. Nadeem FELICIA Sandoval Savannah from [facility] called in to report Mary Crane has HR 135 and BP 100/67. RA pulse oximeter 89-90%, so they place on 2L/NC, and pt short of breath. T 99.3. She questioned med doses, so reviewed her AVS from recent hospital stay. Ellen Davison RN documented in this encounter [facility] 01-18-2025 Telephone encounter Note Rao from [facility] called to schedule appointment for patient with Dr. Barrios regarding medications. PSS unable to find sooner availability, unable to reach cardiology nurse. Please contact Rao by call her direct line ph. [phone]. [facility] 01-18-2025 Telephone encounter Note Called FELICIA Sandoval to relay Dr. Barrios's reply. She verbalized understanding. Ellen Davison RN [facility] 01-18-2025 Telephone encounter Note Images from the original note were not included. Rasheed Barrios MD You16 hours ago (4:56 PM) Patient was recent admitted to the hospital with a fall and splenic injury and underwent operative repair. I was not consulted while she was in the hospital and she was not seen by cardiology. I have not seen her in the office since her hospital admission. I cannot review her medications as I have not seen the patient and do not know what was done during her hospital course. Nadeem [facility] 01-17-2025 Telephone encounter Note FELICIA Cisnerosara Savannah from [facility] called in to report Mary Crane has HR 135 and BP 100/67. RA pulse oximeter 89-90%, so they place on 2L/NC, and pt short of breath. T 99.3. She questioned med doses, so reviewed her AVS from recent hospital stay. Ellen Davison RN [facility] 01-16-2025 Note [facility] 01-15-2025 Note [facility] 01-14-2025 Note [facility] 01-13-2025 Note [facility] 01-12-2025 Note [facility] 01-12-2025 Telephone encounter Note Noted, thank you. Catalina Jauregui APRN.GROCERY BAGGER [facility] Work Phone: 01-12-2025 Miscellaneous Notes Noted, thank you. Catalina Jauregui APRN.GROCERY BAGGER It appears no return call and currently looks like pt is an inpatient at [facility] with recent surgery. Called and spoke with Debora carson she will call pt and let us know. Has she been on the Lasix and tolerated it in the past? 2. Noted. Catalina Jauregui APRN.FELICIA Nathaly with [facility] calling with 2 items regarding patient. Patient has been ordered furosemide but has a listed allergy to Bumex. Asking if pt may take the furosemide. Patient is taking OTC Mucinex and this is not on their medication list. Wanted provider to know this. Please call Nathaly back with provider's response, Nancy Mccann RN documented in this encounter [facility] 01-12-2025 Note [facility] 01-12-2025 Telephone encounter Note It appears no return call and currently looks like pt is an inpatient at [facility] with recent surgery. [facility] 01-11-2025 Note [facility] 01-10-2025 Telephone encounter Note Home Health Certification and Plan of Care scanned to chart. FYI only - no need to sign and return. Ellen Davison, JOSE [facility] 01-10-2025 Miscellaneous Notes Home Health Certification and Plan of Care scanned to chart. FYI only - no need to sign and return. Ellen Davison RN documented in this encounter [facility] 01-10-2025 Note [facility] 01-09-2025 Note [facility] 01-09-2025 Note HNO ID: [id number] Author: RUSH STEPHENS MD Service: ? Author Type: Physician Type: Progress Notes Filed: 01/09/2025 09:25 Note Text: IRush MD, was notified of and approve the order for transfusion of blood products for Mary Crane. Rush Stephens MD Surgical Instrument Mechanic, Critical Care Transport [facility] 01-08-2025 Note [facility] 01-08-2025 Note [facility] 01-07-2025 Note [facility] 01-07-2025 Note [facility] 01-06-2025 Note HNO ID: [id number] Author: ESVIN RON APRN.FELICIA Service: ? Author Type: Nurse Practitioner Type: Progress Notes Filed: 01/10/2025 20:46 Note Text: [facility] CRITICAL CARE TRANSPORT NOTE Patient Name: Mary Crane : 1940 Service Date: January 06, 2025 Referring Facility: [facility] Accepting Facility: [facility] Referring Physician: Lydia Accepting Physician: Lizabeth SUBJECTIVE/CHIEF COMPLAINT: abdominal pain REASON FOR TRANSPORT: Higher level of trauma care needed than available at referring facility History of Present Illness/Injury: Known to CCT team at time of given care and summarized through review of available medical records, patient/family interview and from referring physician and staff. Mary Crane is a 84 year old female with a past history known to our team at time of transport, significant for Afib (on eliquis), HTN, RA, and CKD who presented to [facility] ED s/p pre-hospital stroke alert. Per report, patient LKW was 2200. Patient called family around 0200 stating she did not feel well. EMS was called and when they arrived, patient was noted to have a left facial droop and unable to move both of her arms so a stroke alert was called. It was also noted that the shower curtain in the bathroom had been pulled down and patient had a history of recent falls. Patient c/o severe left sided abdominal pain with radiation to her back. CT brain showed no intracranial hemorrhage or LVO, but did show a lesion concerning for a meningioma. Chest CTA showed small to moderate pleural effusion /hemothorax, large hemoperitoneum with signs of activeextravasation from a splenic laceration. Patients last dose of eliquis [id number] on 01/05. Patient given Balfaxar (PCC) for reversal. Patient was hypotensive as low as the 60's in the ED. Her hemoglobin was initially reported as 1.8 but when official results were posted, it was 5.0. Patient was given 3 units of emergency release blood in setting of hypotension and active bleed. BP improved, Patient presenting stroke symptoms resolved. She was also ordered calcium gluconate. She continues to endorse abdominal pain, but no SOB or nausea. At this time, the physician managing the patient requested transfer to the [facility] for tertiary and/or quaternary trauma services unavailable at the referring facility. The physician managing the patient requested the [facility] Critical Care Transport Team transport and treat the patient for the purpose of tertiary care, evaluation, and management of her emergent medical condition. Patient condition at time of exam was: acutely ill and critically ill. Due to the unique circumstances of the patient, it was determined that this was the closest, most appropriate facility by referring physician. The physician managing the patient requested the [facility] Critical Care Transport Team transport and treat the patient for the purpose of tertiary care, evaluation, and management of her traumatic condition(s). Air medical transport was requested to reduce the [id number] time, 15 minutes by air vs. approximately 41 minutes by ground, with the potential for increased ground transport time secondary to: distance between facilities and the patient's condition requiring an emergent procedure or evaluation not available at the referring facility ROS: A complete review of systems was performed and is negative except as noted in [place] PAST MEDICAL HISTORY: PAST MEDICAL HISTORY Diagnosis Date Benign neoplasm of colon Chronic kidney disease 02/09/2015 Diverticulosis of colon (without mention of hemorrhage) Incisional hernia 07/06/2015 Internal hemorrhoids without mention of complication Rheumatoid arthritis(714.0) Sicca syndrome (HCC) Unspecified essential hypertension PAST SURGICAL HISTORY: PAST SURGICAL HISTORY Procedure Laterality Date CATARACT EXTRACTION HX 10/12/2004 LAPAROSCOPY SURG CHOLECYSTECTOMY 02/20/2015 NEUROPLASTY AND/TRANSPOS MEDIAN NRV CARPAL TUNNE 02/12/2006 Carpal tunnel decomp Left NEUROPLASTY AND/TRANSPOS MEDIAN NRV CARPAL TUNNE 02/27/2006 Carpal tunnel decomp Right hemorrhoidectomy , bladder, and umbilical hernia repair bladder suspension REPAIR FIRST ABDOMINAL WALL HERNIA 07/06/2015 with mesh VAGINAL HYSTERECTOMY UTERUS 250 GM/< 10/12/1983 Hysterectomy, vaginal and bladder tacked up ALLERGIES: Floxin [Ofloxacin], Bumex [Bumetanide], Hydrochlorothiazide, Keflex [Cephalexin], Naproxen, Norvasc [Amlodipine Besylate], Penicillins, Proctosol [Hydrocortisone Acetate], Sulfa (Sulfonamide Antibiotics), Colchicine, and Minoxidil SOCIAL HISTORY: Social History Tobacco Use Smoking status: Never Smokeless tobacco: Never Vaping Use Vaping status: Never Used Substance Use Topics Alcohol use: No Drug use: No FAMILY HISTORY: Unknown to transport team HOME MED (more content not included)... [facility] 01-06-2025 History of Presen t illness Narrative Images from the original note were not included. [facility] CRITICAL CARE TRANSPORT NOTE Patient Name: Mary Crane : 1940 Service Date: January 06, 2025 Referring Facility: [facility] Accepting Facility: [facility] Referring Physician: Lydia Accepting Physician: Lizabeth SUBJECTIVE/CHIEF COMPLAINT: abdominal pain REASON FOR TRANSPORT: Higher level of trauma care needed than available at referring facility History of Present Illness/Injury: Known to CCT team at time of given care and summarized through review of available medical records, patient/family interview and from referring physician and staff. Mary Crane is a 84 year old female with a past history known to our team at time of transport, significant for Afib (on eliquis), HTN, RA, and CKD who presented to [facility] ED s/p pre-hospital stroke alert. Per report, patient LKW was 2200. Patient called family around 0200 stating she did not feel well. EMS was called and when they arrived, patient was noted to have a left facial droop and unable to move both of her arms so a stroke alert was called. It was also noted that the shower curtain in the bathroom had been pulled down and patient had a history of recent falls. Patient c/o severe left sided abdominal pain with radiation to her back. CT brain showed no intracranial hemorrhage or LVO, but did show a lesion concerning for a meningioma. Chest CTA showed small to moderate pleural effusion /hemothorax, large hemoperitoneum with signs of active extravasation from a splenic laceration. Patients last dose of eliquis was 2200 on 01/05. Patient given Balfaxar (PCC) for reversal. Patient was hypotensive as low as the 60's in the ED. Her hemoglobin was initially reported as 1.8 but when official results were posted, it was 5.0. Patient was given 3 units of emergency release blood in setting of hypotension and active bleed. BP improved, Patient presenting stroke symptoms resolved. She was also ordered calcium gluconate. She continues to endorse abdominal pain, but no SOB or nausea. At this time, the physician managing the patient requested transfer to the [facility] for tertiary and/or quaternary trauma services unavailable at the referring facility. The physician managing the patient requested the [facility] Critical Care Transport Team transport and treat the patient for the purpose of tertiary care, evaluation, and management of her emergent medical condition. Patient condition at time of exam was: acutely ill and critically ill. Due to the unique circumstances of the patient, it was determined that this was the closest, most appropriate facility by referring physician. The physician managing the patient requested the [facility] Critical Care Transport Team transport and treat the patient for the purpose of tertiary care, evaluation, and management of her traumatic condition(s). Air medical transport was requested to reduce the nec-[id number]-[id number] time, 15 minutes by air vs. approximately 41 minutes by ground, with the potential for increased ground transport time secondary to: distance between facilities and the patient's condition requiring an emergent procedure or evaluation not available at the referring facility ROS: A complete review of systems was performed and is negative except as noted in [place] PAST MEDICAL HISTORY: PAST MEDICAL HISTORY Diagnosis Date Benign neoplasm of colon Chronic kidney disease 02/09/2015 Diverticulosis of colon (without mention of hemorrhage) Incisional hernia 07/06/2015 Internal hemorrhoids without mention of complication Rheumatoid arthritis(714.0) Sicca syndrome (HCC) Unspecified essential hypertension PAST SURGICAL HISTORY: PAST SURGICAL HISTORY Procedure Laterality Date CATARACT EXTRACTION HX 10/12/2004 LAPAROSCOPY SURG CHOLECYSTECTOMY 02/20/2015 NEUROPLASTY &/TRANSPOS MEDIAN NRV CARPAL TUNNE 02/12/2006 Carpal tunnel decomp Left NEUROPLASTY &/TRANSPOS MEDIAN NRV CARPAL TUNNE 02/27/2006 Carpal tunnel decomp Right hemorrhoidectomy , bladder, and umbilical hernia repair bladder suspension REPAIR FIRST ABDOMINAL WALL HERNIA 07/06/2015 with mesh VAGINAL HYSTERECTOMY UTERUS 250 GM/< 10/12/1983 Hysterectomy, vaginal and bladder tacked up ALLERGIES: Floxin [Ofloxacin], Bumex [Bumetanide], Hydrochlorothiazide, Keflex [Cephalexin], Naproxen, Norvasc [Amlodipine Besylate], Penicillins, Proctosol [Hydrocortisone Acetate], Sulfa (Sulfonamide Antibiotics), Colchicine, and Minoxidil SOCIAL HISTORY: Social History Tobacco Use Smoking status: Never Smokeless tobacco: Never Vaping Use Vaping status: Never Used Substance Use Topics Alcohol use: No Drug use: No FAMILY HISTORY: Unknown to transport team HOME MEDICATIONS: levothyroxine (LEVOXYL) 25 mcg tablet^Take 1 tablet by mouth once daily. Take on empty stomach. For Thyroid^Disp: 90 tablet^Rfl: 2 allopurinol (ZYLOPRIM) 100 mg tablet^Take 1 tablet by mouth once daily.^Disp: 90 tablet^Rfl: 3 furosemide (LASIX) 20 mg tablet^Take 1 tablet by mouth once daily.^Disp: 90 tablet^Rfl: 1 amiodarone (PACERONE) 200 mg tablet^Take 1 tablet by mouth once daily.^Disp: 90 tablet^Rfl: 3 apixaban (ELIQUIS) 5 mg tab(s)^Take 1 tablet by mouth two times a day.^Disp: 180 tablet^Rfl: 3 losartan (COZAAR) 50 mg tablet^Take 1 tablet by mouth once daily.^Disp: 90 tablet^Rfl: 3 metoprolol tartrate, short acting, (LOPRESSOR) 100 mg tablet^Take 1 tablet by mouth two times a day.^Disp: 180 tablet^Rfl: 3 cholecalciferol, Vitamin D3, (VITAMIN D3) 1,250 mcg (50,000 unit) cap capsule^Take 1 capsule by mouth one time a week.^Disp: 12 capsule^Rfl: 2 potassium chloride ER (KLOR-CON M10) 10 mEq tablet^Take 1 tablet by mouth two times a day.^Disp: 180 tablet^Rfl: 3 rosuvastatin (CRESTOR) 10 mg tablet^Take 1 tablet by mouth once daily.^Disp: 90 tablet^Rfl: 1 nystatin (NYSTOP) powder^Apply 1 application to affected area four times a day as needed. Yeast infection/rash in groin and under breasts^Disp: 120 g^Rfl: 1 ketoconazole (NIZORAL) 2 % cream^Apply to affected area two times a day.^Disp: 60 g^Rfl: 1 (Patient taking differently: Apply to affected area two times a day. PRN) folic acid 1 mg tablet^Take 2 tablets by mouth once daily.^Disp: 180 tablet^Rfl: 3 triamcinolone acetonide (KENALOG) 0.1 % cream^Apply 1 application to affected area two times a day as needed (rash). Apply sparingly to area for rash/itching.^Disp: 30 g^Rfl: 1 Cholecalciferol, Vitamin D3, 50 mcg (2,000 unit) cap^Take 1 capsule by mouth once daily.^Disp: 90 capsule^Rfl: 3 dicyclomine (BENTYL) 10 mg capsule^Take 1 capsule by mouth before meals and at bedtime. For diarrhea or abdominal cramping^Disp: 30 capsule^Rfl: 1 cyanocobalamin (VITAMIN B-12) 1,000 mcg tab^Take 1,000 mcg by mouth once daily.^Disp: ^Rfl: triamcinolone acetonide (KENALOG) 0.1 % cream^Apply 1 application to affected area twice daily. On rash, Apply sparingly to area for rash/itching.^Disp: 453.6 g^Rfl: 0 (Patient taking differently: Apply 1 application to affected area two times a day. On rash, Apply sparingly to area for rash/itching. Uses as needed) vit A/vit C/vit E/zinc/copper (OCUVITE PRESERVISION ORAL)^Take by mouth twice daily.^Disp: ^Rfl: apremilast (OTEZLA) 30 mg tablet^Take 30 mg by mouth twice daily.^Disp: ^Rfl: hydrocortisone probutate 0.1 % crea^Apply to affected area once daily as needed.^Disp: ^Rfl: loratadine (CLARITIN) 10 mg tablet^Take 10 mg by mouth once daily. Takes daily as needed^Disp: ^Rfl: acetaminophen (TYLENOL) 325 mg tablet^Take 650 mg by mouth every 6 hours as needed.^Disp: ^Rfl: Medications Administered by Referring Facility: PRBC's x 3 units Balfaxar (PCC) 3850 units Calcium Gluconate 2 gm ordered OBJECTIVE: Recent Labs, Diagnostics & Procedure Reports reviewed as available. Referring Facility Labs CBC: WBC 13.1k, Hgb 5.0, Plt 170K CHEMISTRY: Na 127, K 3.4, Cl 97, CO2 10.5, BUN 12, SCr 1.13, Glu 218 Coags: INR 2.1, PT 23.6, PTT 37.1 Cardiac Enzymes: HS Trop 15 Diagnostics & Procedure Reports ECG: Results reviewed, Rhythm SR on telemetry Brain CT Scan: Results reviewed Left side of the suprasellar cistern adjacent to the left parasellar carotid is a mildly hyperdense and heterogeneous ovoid extra-axial appearing lesion measuring approximately 1.3 x 1.3 x 0.9 cm axial 18, coronal 36 and sagittal 37 with likely considerations including a giant aneurysm or meningioma among others and requires further workup. No intracranial hemorrhage or CT evidence of large vascular territory acute infarct. Left paranasal sinus disease as above. Head/Neck CTA: Results reviewed No flow significant stenosis, dissection, vessel cut off or contrast filling aneurysm identified as above CTA Chest Scan: Results reviewed There is now a small to moderate posterior layering left pleural effusion possible hemothorax. Trace right pleural fluid. Subjacent partial passive collapse, atelectasis left lower lobe. Atelectasis at the lingula and right lower lobe. No pneumothorax. Images of the upper abdomen with large amount of hemoperitoneum greater on the left side with a crescentic high density along the peripheral aspect of the spleen and blush of contrast suggested posteriorly for example axial 58 concerning for active bleeding. Imaging: CT Abdomen/Pelvis: Radiology report not provided to transport team, however it was reported as splenic laceration with active extravasation of bleeding from the spleen. Invasive Lines/Devices/Tubes Placed by Referring Facility: PIV x 2 PHYSICAL EXAM: Upon CCT Arrival at Referring Facility Vital Signs: BP 129/76mmHg, HR 71bpm, RR 26, SpO2 98% Oxygen/Ventilator Settings: 2 lpm Primary Survey: Airway/C-Spine: Patent, able to phonate without difficulty. Breathing: Spontaneous, easy and regular, trachea midline, lung sounds clear and equal. Oxygen in place. Circulation: Strong carotid, radial and femoral pulses. No bleeding noted. Skin pink, warm and dry. IV access obtained and labs sent by ER Disability: GCS 14. Exposure: Exposure achieved. Warming blankets placed on patient. Secondary Survey: General: Awake and alert. Lying on cot. Patient in no distress. Appears stated age. Head: Atraumatic/normocephalic, no abrasions, contusions, swelling, tenderness or wounds noted, no step-off or deformities noted. Follows commands EENT: Atraumatic. CHLOE ~ 3mm/brisk, EOMI, conjunctiva clear, no contusions or bony step-off noted around orbit, face or sinuses. Able to hear without difficulty. No drainage noted from ears. No ecchymosis to posterior ear. Nasal mucosa pink without drainage. No loose teeth, malocclusion or lacerations noted. Clear speech. Able to handle secretions without difficulty. Neck: Supple, no crepitus noted, trachea midline, no JVD, no abrasions, no midline tenderness with palpation. Chest: Lungs clear and equal bilaterally, good air exchange, equal rise and fall of chest, apical regular rate and rhythm, S1S2, no murmurs, rubs, gallops noted, no abrasions, contusions, ecchymosis, crepitus or tenderness to chest wall and clavicles.Carotid, radial, femoral, and pedal pulses are intact and equal. No edema of the extremities. Abdomen: Abdomen softly distended, tender diffusely but L>R, no rebound, + bowel sounds present. No abrasions, contusions, ecchymosis or wounds noted. Pelvis: Stable, no crepitus, no bleeding , abrasions, contusions, or hematomas noted Extremities: Good ROM in all four extremities, no deformities, abrasions, contusions, swelling noted. Radial, brachial, carotid, femoral and dorsalis pedis pulses 2+ bilaterally. Strength 5/5 in all four extremities. Sensation intact. Back/Spine: Not evaluated Skin: Normal color, warm to touch, normal skin texture. Capillary refill brisk. CRITICAL CARE TRANSPORT COURSE Upon bedside arrival at referring facility the patient was assessed according to ATLS standards. Initial exam findings as described above. The patient was placed on the transport monitor and all transport equipment transitioned in standard fashion. The patient was transferred to the transport cot and transported to the aircraft and loaded without incident. The patient was medically managed, monitored, and reassessed during transport. Medications Managed & Administered by CCT: Completed 2 units PRBC's from OSH Completed Balfaxar 3850 units Started Calcium Gluconate 2 gm as ordered by ER physician Given 1 unit PRBC's by CCT Critical Care Transport Blood Product Administration Mary Crane requires emergent blood transfusion as indicated by one of the following: Acute traumatic injury (known or suspected) resulting in life threatening hemorrhage (known or suspected) where optimum treatment involves transfusion of Blood Products before or in concert with isotonic crystalloid infusion. The risks, benefits, and alternatives to blood transfusion have been discussed with the patient or wireless 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 who cannot consent due to clinical urgency. Mary Crane requires O+ WHOLE BLOOD. The indication being treatment of anemia . The provider, Dr. Barone, at the receiving facility was notified that the patient received O+ whole blood. Patient verified: yes Procedure/Site verified: Yes Physician Notified: Dr. Claire Ron, STEAM FINISHER.GROCERY BAGGER Procedures Performed by CCT: Blood and Blood Product Administration ASSESSMENT/PLAN: Acute Blood Loss Anemia Hemorrhagic Shock Splenic Laceration Hemoperitoneum Hemothorax/Pleural Effusion Coagulopathy Hx recent falls Possible Meningioma - Patient with recent falls - Initially presented as a stroke alert, imaging negative for stroke but did show possible meningioma, symptoms resolved in the ED - Imaging concerning for splenic laceration with active bleeding, hemoperitoneum. Initial Hgb reported as 1.8, however official results were 5.0. Patient given 3 units of trauma blood in ED. Although patient was hemodynamically stable at time of transport, in setting of active bleeding with a initial Hgb 5.0, an additional unit of PRBC's was given by CCT - Calcium Gluconate given en route as ordered by ER physician - Given PCC for reversal of Eliquis (last dose 2199) - Patient denies SOB, oxygenating well on 2lpm NC - No other visible signs of trauma or bleeding. - Expedited transport to [facility] for further trauma care The transport was completed without significant incident or change in the patient's status. The patient was transported to [facility] by [facility]otor (Helicopter) for tertiary and/or quaternary evaluation and management of her Emergent and Critical Medical condition. Upon arrival to the receiving facility, a [id number] report was given to bedside nursing staff in ED. Patient care was transferred. The patient condition was Critical at the time of transfer Vital Signs at time care transferred to the receiving facility unit: BP 130/71mmHg, HR 76bpm, RR 31, SpO2 100%, ETCO2 26 SPECIAL EQUIPMENT: None MODE OF TRANSPORT: [facility]otor (Helicopter) CRITICAL CARE TIME:I personally performed 45 minutes of critical care time exclusive of separately billable procedures, ambulance charges and treating other patients. This was necessary to treat or prevent further deterioration of the following condition(s): Hypotension and acute blood loss anemia Cardiovascular impairment, Respiratory impairment, LEATHER BELT MAKER impairment, Shock, and Cardiac Arrest which the patient had and/or had a high probability of suddenly developing. SIGNATURE: Esvin Ron APRN.CNP Acute Care Nurse Practitioner [facility] Critical Care Transport Team documented in this encounter [facility] 01-06-2025 Note HNO ID: [id number] Author: ?, ?, ? Service: ? Author Type: ? Type: Procedures Filed: 01/06/2025 15:16 Note Text: Attempted to start stat BEM, care team ordering a stat MRI. RN to page EEG pager when patient returns to MRI for BEM hookup. [facility] 01-06-2025 Note [facility] 01-06-2025 Note [facility] 01-06-2025 Note [facility] 01-06-2025 Radiology Diagnostic study note [facility] Imaging Services [address] [place], [place] [address] Abdomen/Pelvis W IV Cont ONLY MR#: [id number] Acct: [id number] Name: MARY CRANE Rep #: [id number] : 1940 F 84 From: Thomas Sherwood MD PCP: Dr. Atul Harvey, DO Status: RE G ER Study:Abdomen/Pelvis W IV Cont ONLY Date of E xam: 01/06/25 Exam# [id number] Ordering Dr: Sudheer Freeman DO EXAM: ABDOMEN/PELVIS W IV CONT ONLY 01/06/2025 CLINICAL HISTORY: Pain left lower quadrant 2 back COMPARISON: None available TECHNIQUE: CT of the abdomen and pelvis with contrast and coronal and sagittal reformatted images. 97 cc Isovue 370 FINDINGS: The liver, adrenal glands and pancreas appear within limits. The gallbladder isnot definitely identified. Small bilateral kidneys with dense appearing nephrograms can be seen with renal disease or ATN. No hydronephrosis. Possible bilateral renal cysts. Aortoiliac atherosclerotic changes without aneurysm or dissection. No bowel dilation or free air. The bladder appears within limits. Heterogeneous area at the posterior spleen concerning for splenic laceration measuring 3-3.5 cm with adjacent high-density areas most concerning for blush of contrast, active extravasation, active bleed. A crescentic collection is seen at the lateral spleen measuring approximately 10 x 1.8 cm with concave deformity on the adjacent spleen most concerning for subcapsular hemorrhage. There is a large amount of high-density fluid within the upper abdomen [id number]-right about the spleen and within the pelvis consistent with hemoperitoneum. Possible subtle nondisplaced fracture of the posterior left 10th rib axial 20. Old posterior left 12th rib fracture. No pelvic fracture. Lower lumbar spondylosis. CT/Abdomen/Pelvis W IV Cont ONLY IMPRESSION: Heterogeneous area at the posterior spleen concerning for splenic laceration measuring 3-3.5 cm with adjacent high-density areas most concerning for blush of contrast, active extravasation, active bleed. A crescentic collection is seen at the lateral spleen measuring approximately 10x 1.8 cm with concave deformity on the adjacent spleen most concerning for subcapsular hemorrhage. There is a large amount of high-density fluid within the upper abdomen awvj-[id number]-[id number]-right about the spleen and within the pelvis consistent with hemoperitoneum. Small bilateral kidneys with dense appearing nephrograms can be seen with renal disease or ATN. No hydronephrosis. Possible subtle nondisplaced fracture of the posterior left 10th rib axial 20. Study discussed over the phone verbally by myself with Dr. Freeman at 04:10 a.m. 01/06/2025 Reading Location: [id number] CC: Dr. Atul Harvey DO; Dr. Fredy Freeman DO ~ Public Health Analyst: Signed [facility] 01-06-2025 Discharge summary [facility] 01-06-2025 Radiology Diagnostic study note [facility] Imaging Services [address] [place] [id number] CTA Chest W/WO Contrast MR#: [id number] Acct: [id number] Name: MARY CRANE Rep #: [id number] : 1940 F 84 From: Thomas Sherwood MD PCP: Dr. Atul Harvey, DO Status: RE G ER Study:CTA Chest W/WO Contrast Date of Exam: 01/06/25 Exam# [id number] Ordering Dr: Sudheer Freeman DO PROCEDURE: CTA CHEST W/WO CONTRAST 01/06/2025 REASON FOR EXAM: PAIN TECHNIQUE: CTA of the chest with coronal and sagittal and MIP reformatted images CONTRAST: 97 cc Isovue 370 One or more dose reduction techniques were used (e.g., Automated exposure control, adjustment of the mA and/or kV according to patient size, use of iterative reconstruction technique). RADIATION DOSE SUMMARY: CTDlvol: 17.63 mGy DLP: 935.09 mGycm COMPARISON: 10/12/2024 FINDINGS: Ectatic thoracic aorta appears within limits with atherosclerotic changes at thearch and descending thoracic aorta. Ascending aorta measures 4 cm. Descending 2.5 cm. Origin of the right subclavian artery appears within limits. No thoracic aortic dissection. Large appearance of the central pulmonary arteries can be seen with pulmonary hypertension, nonspecific. Cardiomegaly. No pericardial effusion. There is now a small to moderate posterior layering left pleural effusion possible hemothorax. Trace right pleural fluid. Subjacent partial passive collapse, atelectasis left lower lobe. Atelectasis atthe lingula and right lower lobe. No pneumothorax. The central airways appear patent. Nonspecific sclerotic focus at the posterior inferior corner of T3 is again seen, unchanged. Images of the upper abdomen with large amount of hemoperitoneum greater on the left side with a crescentic high density along the peripheral aspect of the spleen and blush of contrast suggested posteriorly for example axial 58 concerning for active bleeding. CT/CTA Chest W/WO Contrast IMPRESSION: There is now a small to moderate posterior layering left pleural effusion possible hemothorax. Trace right pleural fluid. Subjacent partial passive collapse, atelectasis left lower lobe. Atelectasis at the lingula and right lower lobe. No pneumothorax. Images of the upper abdomen with large amount of hemoperitoneum greater on the left side with a crescentic high density along the peripheral aspect of the spleen and blush of contrast suggested posteriorly for example axial 58 concerning for active bleeding. Reading Location: [facility] CC: Dr. Atul Harvey DO; Dr. Fredy Freeman DO ~ Public Health Analyst: Signed [facility] 01-06-2025 Radiology Diagnostic study note [facility] Imaging Services [address] [place] [address] STROKE CTA Head AND Neck W/Con MR#: [id number] Acct: [id number] Name: MARY CRANE Rep #: [id number] : 1940 F 84 From: Thomas Sherwood MD PCP: Dr. Atul Harvey DO Status: RE G ER Study:STROKE CTA Head AND Neck W/Con Date of Exam: 01/06/25 Exam# [id number] Ordering Dr: Sudheer Freeman DO PROCEDURE: STROKE CTA HEAD AND NECK W/CON 01/06/2025 REASON FOR EXAM: NEURO DEFICIT, ACUTE, STROKE SUSPECTED TECHNIQUE: CTA imaging of the head and neck from the aortic arch to the skull vertex with intravenous contrast. Coronal and Sagittal reconstruction series were provided. 3D, 3D post processing, 3D reconstructions, Maximum intensity projection (MIPs) Volume rendering and Shaded surface rendering was provided. CONTRAST: 94 cc Isovue 370 One or more dose reduction techniques were used (e.g., Automated exposure control, adjustment of the mA and/or kV according to patient size, use of iterative reconstruction technique). RADIATION DOSE SUMMARY: CTDlvol: 20.76 mGy DLP: 616.81 mGycm COMPARISON: None available FINDINGS: Origin of the right brachiocephalic artery is not included on imaging. Will be included on the CTA of the chest. Atherosclerotic plaque formation at the origin and proximal left subclavian artery without flow significant stenosis. Just beyond the origin of the right common carotid artery is calcific plaque formation and undulation of the right subclavian artery with 7 mm infundibular widening of the area of the thyrocervical trunk origin for example axial 80. The left vertebral artery is dominant with a much smaller right vertebral arteryand is patent throughout the cervical spine. The left and right common and internal carotid arteries are patent without flow significant stenosis or dissection. Mild bilateral carotid bulb calcific plaque formation without flow significant stenosis. The petrous and parasellar carotid arteries appear intact. The anterior and posterior circulations appear intact. No vessel cut off, flow significant stenosis or definite contrast filling aneurysm identified. Ovoid area of the left parasellar suprasellar extra-axial mass does not fill with and consideration would include meningioma and less likely a thrombosed giant aneurysm. May be further characterized with follow-up nonemergent MRI as warranted. Cervical spondylosis. CT/STROKE CTA Head AND Neck W/Con IMPRESSION: No flow significant stenosis, dissection, vessel cut off or contrast filling aneurysm identified as above. Reading Location: [facility] CC: Dr. Atul Harvey DO; Dr. Fredy Freeman DO ~ Public Health Analyst: Signed [facility] 01-06-2025 Radiology Diagnostic study note [facility] Imaging Services [address] [place] [address] [id number] STROKE Brain/Head without Cont MR#: [id number] Acct: [id number] Name: MARY CRANE Rep #: [id number] : 1940 F 84 From: Thomas Sherwood MD PCP: Dr. Atul Harvey DO Status: RE G ER Study:STROKE Brain/Head without Cont Date of Exam: 01/06/25 Exam# [id number] Ordering Dr: Sudheer Freeman DO PROCEDURE: STROKE BRAIN/HEAD WITHOUT CONT 01/06/2025 REASON FOR EXAM: NEURO DEFICIT, ACUTE, STROKE SUSPECTED TECHNIQUE: Head CT without intravenous contrast. Coronal and Sagittal reconstruction serieswere provided. One or more dose reduction techniques were used (e.g., Automated exposure control, adjustment of the mA and/or kV according to patient size, use of iterative reconstruction technique. RADIATION DOSE SUMMARY: CTDlvol: 44.99 mGy DLP: 796.11 mGycm COMPARISON: None available FINDINGS: No intracranial hemorrhage or CT evidence of large vascular territory acute infarct. The ventricles are within limits and midline. Bilateral symmetric appearing white matter likely chronic small-vesselischemic changes. Left side of the suprasellar cistern adjacent to the left parasellar carotid is a mildly hyperdense and heterogeneous ovoid extra-axial appearing lesion measuring approximately 1.3 x 1.3 x 0.9 cm axial 18, coronal 36 and sagittal 37 with likely considerations including a giant aneurysm or meningioma among others and requires further workup. Bilateral parasellar carotid and intracranial right vertebral calcification. Possible mucous retention cyst left maxillary sinus. Tiny fluid level left sphenoid sinus axial 12. Small amount of frothy material posterior right ethmoid air cell. Small osteoma left ethmoid air cell. Partial fluid opacification left mastoid tip. The right mastoid, remainder of the paranasal sinuses and orbits appear within limits. CT/STROKE Brain/Head without Cont IMPRESSION: Left side of the suprasellar cistern adjacent to the left parasellar carotid is a mildly hyperdense and heterogeneous ovoid extra-axial appearing lesion measuring approximately 1.3 x 1.3 x 0.9 cm axial 18, coronal 36 and sagittal 37 with likely considerations including a giant aneurysm or meningioma among others and requires further workup. No intracranial hemorrhage or CT evidence of large vascular territory acute infarct. Left paranasal sinus disease as above. Results discussed by myself verbally by phone to Dr. Freeman at 4 a.m. 01/06/2025 Reading Location: [facility] CC: Dr. Atul Harvey, DO; Dr. Fredy Freeman, DO ~ Public Health Analyst: Signed [facility] 12-28-2024 Telephone encounter Note Called and spoke with Debora carson she will call pt and let us know. [facility] 12-28-2024 Telephone encounter Note Has she been on the Lasix and tolerated it in the past? 2. Noted. Catalina Jauregui APRN.CNP [facility] 12-27-2024 Telephone encounter Note Nathaly with [facility] calling with 2 items regarding patient. Patient has been ordered furosemide but has a listed allergy to Bumex. Asking if pt may take the furosemide. Patient is taking OTC Mucinex and this is not on their medication list. Wanted provider to know this. Please call Nathaly back with provider's response, Nnacy Mccann RN [facility] 12-12-2024 Telephone encounter Note The patient has been identified by name and date of : Yes Caregiver verified no other encounters exist for this prescription request: Yes Caregiver confirmed with patient/requestor that no other refills are due, in the near future, with this provider at this time: Yes The last office visit in the department: 10/25/2024 Does the patient have a future office visit with this provider/department: Yes 02/07/2025 Requested Prescriptions Pending Prescriptions Disp Refills levothyroxine (LEVOXYL) 25 mcg tablet 90 tablet 2 Sig: Take 1 tablet by mouth once daily. Take on empty stomach. For Thyroid allopurinol (ZYLOPRIM) 100 mg tablet 90 tablet 3 Sig: Take 1 tablet by mouth once daily. Kimi Wyatt RN December 12, 2024 8:36 [facility] 12-12-2024 Miscellaneous Notes The patient has been identified by name and date of : Yes Caregiver verified no other encounters exist for this prescription request: Yes Caregiver confirmed with patient/requestor that no other refills are due, in the near future, with this provider at this time: Yes The last office visit in the department: 10/25/2024 Does the patient have a future office visit with this provider/department: Yes 02/07/2025 Requested Prescriptions Pending Prescriptions Disp Refills levothyroxine (LEVOXYL) 25 mcg tablet 90 tablet 2 Sig: Take 1 tablet by mouth once daily. Take on empty stomach. For Thyroid allopurinol (ZYLOPRIM) 100 mg tablet 90 tablet 3 Sig: Take 1 tablet by mouth once daily. Kimi Wyatt RN December 12, 2024 8:36 AM documented in this encounter [facility] 12-07-2024 Telephone encounter Note Spoke with pt and information listed below given. Pt verbalizes understanding. Elizabeth Goldberg LPN [facility] 12-07-2024 Miscellaneous Notes Spoke with pt and information listed below given. Pt verbalizes understanding. Elizabeth Goldberg LPN TC patient, left message for patient to call back and speak with a triage nurse regarding provider instructions. Camila Finley RN Noted, please let patient know that I saw her labs and decreased lasix to 20 mg a day as below Atul Harvey DO The following approved medication requests have been transmitted electronically. Requested Prescriptions Signed Prescriptions Disp Refills furosemide (LASIX) 20 mg tablet 90 tablet 1 Sig: Take 1 tablet by mouth once daily. Authorizing Provider: ATUL HARVEY DO Patient calls and states that Dr. Hussein had labs done on patient. Patient reports that Dr. Hussein told patient to call office and report that patient should cut lasix in half. Patient has been currently taking 40 mg, and patient was told that lasix should be cut in half due to her kidney function. Please review and advise, Camila Finley RN documented in this encounter [facility] 12-07-2024 Telephone encounter Note TC patient, left message for patient to call back and speak with a triage nurse regarding provider instructions. Camila Finley RN [facility] 12-07-2024 Telephone encounter Note Noted, please let patient know that I saw her labs and decreased lasix to 20 mg a day as below Atul Harvey DO The following approved medication requests have been transmitted electronically. Requested Prescriptions Signed Prescriptions Disp Refills furosemide (LASIX) 20 mg tablet 90 tablet 1 Sig: Take 1 tablet by mouth once daily. Authorizing Provider: ATUL HARVEY DO [facility] 12-02-2024 Telephone encounter Note Patient calls and states that Dr. Hussein had labs done on patient. Patient reports that Dr. Hussein told patient to call office and report that patient should cut lasix in half. Patient has been currently taking 40 mg, and patient was told that lasix should be cut in half due to her kidney function. Please review and advise, Camila Finley RN [facility] 11-30-2024 History of Present illness Narrative [facility] ENROLLMENT Provider Action / FYI: N/A Patient identified by name and date of . Discussed care with patient. Program Details Chronic Disease Management Status: Declined Patient Declined - Initial Effective Dates: unknown - 11/30/2024 Responsible Staff: Yecenia Bradford RN Support and Services: None active Assessments No documentation this encounter Interventions No episode Yecenia Bradford RN November 30, 2024 2:00 PM documented in this encounter [facility] 11-30-2024 Note HNO ID: [id number] Author: YECENIA BRADFORD RN Service: ? Author Type: Registered Nurse Type: Progress Notes Filed: 11/30/2024 14:05 Note Text: [facility] ENROLLMENT Provider Action / FYI: N/A Patient identified by name and date of . Discussed care with patient. Program Details Chronic Disease Management Status: Declined Patient Declined - Initial Effective Dates: unknown - 11/30/2024 Responsible Staff: Yecenia Bradford RN Support and Services: None active Assessments No documentation this encounter Interventions No episode Yecenia Bradford RN November 30, 2024 2:00 PM [facility] 11-30-2024 Note Patient Outreach ([facility]) MARY CRANE ([id number]) 1940 F TXT Date Time Provider Department 11/30/24 YECENIA BRADFORD [facility] During your visit today, we recorded the following information about you: Yecenia Bradford RN 11/30/2024 2:05 PM Signed [facility] ENROLLMENT Provider Action / FYI: N/A Patient identified by name and date of . Discussed care with patient. Program Details Chronic Disease Management Status: Declined Patient Declined - Initial Effective Dates: unknown - 11/30/2024 Responsible Staff: Yecenia Bradford RN Support and Services: None active Assessments No documentation this encounter Interventions No episode Yecenia Bradford RN November 30, 2024 2:00 PM Allergies As of Date: 11/30/2024 Noted Allergy Reaction FLOXIN (OFLOXACIN) 09/10/2005 10 - Anaphylaxis BUMEX (BUMETANIDE) 09/10/2005 5 - Intolerance HYDROCHLOROTHIAZIDE 09/10/2005 2 - Rash 5 - Intolerance Comments: leucocytoclastic vasculitis KEFLEX (CEPHALEXIN) 09/10/2005 2 - Rash NAPROXEN 09/10/2005 2 - Rash 4 - Hives NORVASC (AMLODIPINE BESYLATE) 09/10/2005 5 - Intolerance PENICILLINS 09/10/2005 5 - Intolerance Comments: Rash PROCTOSOL (HYDROCORTISONE ACETATE)09/10/2005 5 - Intolerance SULFA (SULFONAMIDE ANTIBIOTICS) 09/10/2005 2 - Rash 8 - GI Upset COLCHICINE 10/17/2005 4 - Hives MINOXIDIL 03/24/2011 14 - Other: See Comments Comments: facial hair Date Reviewed: 11/11/2024 Reviewed by: Tatyana Hennessy LPN - Fully Assessed Prescriptions as of 11/30/2024 - amiodarone (PACERONE) 200 mg tablet Take 1 tablet by mouth once daily. - apixaban (ELIQUIS) 5 mg tab(s) Take 1 tablet by mouth two times a day. - losartan (COZAAR) 50 mg tablet Take 1 tablet by mouth once daily. - metoprolol tartrate, short acting, (LOPRESSOR) 100 mg tablet Take 1 tablet by mouth two times a day. - furosemide (LASIX) 40 mg tablet Take 1 tablet by mouth once daily. - cholecalciferol, Vitamin D3, (VITAMIN D3) 1,250 mcg (50,000 unit) cap capsule Take 1 capsule by mouth one time a week. - potassium chloride ER (KLOR-CON M10) 10 mEq tablet Take 1 tablet by mouth two times a day. - rosuvastatin (CRESTOR) 10 mg tablet Take 1 tablet by mouth once daily. - nystatin (NYSTOP) powder Apply 1 application to affected area four times a day as needed. Yeast infection/rash in groin and under breasts - ketoconazole (NIZORAL) 2 % cream Apply to affected area two times a day. - levothyroxine (LEVOXYL) 25 mcg tablet Take 1 tablet by mouth once daily. Take on empty stomach. For Thyroid - folic acid 1 mg tablet Take 2 tablets by mouth once daily. - triamcinolone acetonide (KENALOG) 0.1 % cream Apply 1 application to affected area two times a day as needed (rash). Apply sparingly to area for rash/itching. - allopurinol (ZYLOPRIM) 100 mg tablet Take 1 tablet by mouth once daily. - Cholecalciferol, Vitamin D3, 50 mcg (2,000 unit) cap Take 1 capsule by mouth once daily. - dicyclomine (BENTYL) 10 mg capsule Take 1 capsule by mouth before meals and at bedtime. For diarrhea or abdominal cramping - cyanocobalamin (VITAMIN B-12) 1,000 mcg tab Take 1,000 mcg by mouth once daily. - triamcinolone acetonide (KENALOG) 0.1 % cream Apply 1 application to affected area twice daily. On rash, Apply sparingly to area for rash/itching. - vit A/vit C/vit E/zinc/copper (OCUVITE PRESERVISION ORAL) Take by mouth twice daily. - apremilast (OTEZLA) 30 mg tablet Take 30 mg by mouth twice daily. - hydrocortisone probutate 0.1 % crea Apply to affected area once daily as needed. - loratadine (CLARITIN) 10 mg tablet Take 10 mg by mouth once daily. Takes daily as needed - acetaminophen (TYLENOL) 325 mg tablet Take 650 mg by mouth every 6 hours as needed. Problem List As Of Date 11/30/2024 Noted Resolved Benign neoplasm of colon [D12.6] 09/30/2005 02/24/2020 DIVERTICULOSIS OF COLON W/O BLEED [K57.30] 09/30/2005 Internal hemorrhoids without mention of complic*09/30/2005 02/24/2020 CARPAL TUNNEL SYNDROME [G56.00] 10/17/2005 03/12/2006 LOC PRIM OSTEOARTH-HAND [M19.049] 10/17/2005 Other tenosynovitis of hand and wrist [M65.849,*10/17/2005 02/24/2020 Follow-up examination, following unspecified lindsay*02/26/2006 02/08/2015 Rheumatoid arthritis involving multiple sites w*02/27/2006 CARPAL TUNNEL SYNDROME [G56.00] 03/17/2006 HYPERTENSION NOS [I10] 05/30/2014 Sicca syndrome (HCC) [M35.00] 11/29/2021 Sialoadenitis [K11.20] 09/04/2008 02/24/2020 Gout [M10.9] 11/18/2010 Hypertension [I10] 12/18/2010 05/29/2016 Pulmonary hypertension [I27.20] 08/27/2011 Sjogren's syndrome [M35.00] 03/04/2013 Dysphagia, unspecified(787.20) [R13.10] 12/21/2014 12/21/2014 Esophageal reflux [K21.9] 12/21/2014 12/21/2014 Nausea alone [R11.0] 12/21/2014 12/21/2014 Chronic kidney disease [N18.9] 02/09/2015 02/24/2020 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 [facility] 11-18-2024 Telephone encounter Note Daughter reports patient fell 2 days ago in the [facility] restroom. Daughter was waiting in her car. Noone witnessed the fall. Reports patient called daughter and daughter went inside to help patient. Reports patient must have tripped herself and came down on her left side, hit her left ear on the sink on the way down. Reports patient's ear is black and blue and ear is swollen, and it hurts to put an icepack on it. Reports patient wears a hearing aid in that ear. Reports patient's left shoulder is black and blue, ribs are black and blue, hip and lower back are black and blue. Reports patient is able to walk today, and daughter requesting same day appt. Patient takes eliquis. Advised to ER to r/o any broken bones or internal bleed. Daughter agreeable. [facility] 11-18-2024 Miscellaneous Notes Daughter reports patient fell 2 days ago in the [facility] restroom. Daughter was waiting in her car. Noone witnessed the fall. Reports patient called daughter and daughter went inside to help patient. Reports patient must have tripped herself and came down on her left side, hit her left ear on the sink on the way down. Reports patient's ear is black and blue and ear is swollen, and it hurts to put an icepack on it. Reports patient wears a hearing aid in that ear. Reports patient's left shoulder is black and blue, ribs are black and blue, hip and lower back are black and blue. Reports patient is able to walk today, and daughter requesting same day appt. Patient takes eliquis. Advised to ER to r/o any broken bones or internal bleed. Daughter agreeable. documented in this encounter [facility] 11-17-2024 Telephone encounter Note Frank mckee pt gave information provided. Pt voices understanding. [facility] 11-17-2024 Miscellaneous Notes Frank mckee pt gave information provided. Pt voices understanding. Yes, ok to try this. Milana Armijo APRN.GROCERY BAGGER Pt calling to see if she can take her Lasix 40 mg at 5 pm instead of in the am. Pt reports she has to run to the bathroom all day. Pt also takes her Potassium at 5 pm. Please advise pt. Elizabeth Goldberg LPN documented in this encounter [facility] 11-17-2024 Telephone encounter Note Yes, ok to try this. Milana Armijo APRN.GROCERY BAGGER [facility] 11-16-2024 Telephone encounter Note Pt calling to see if she can take her Lasix 40 mg at 5 pm instead of in the am. Pt reports she has to run to the bathroom all day. Pt also takes her Potassium at 5 pm. Please advise pt. Elizabeth Goldberg LPN [facility] 11-11-2024 Note HNO ID: [id number] Author: MARIA E BREWSTER APRN.GROCERY BAGGER Service: ? Author Type: Nurse Practitioner Type: Progress Notes Filed: 11/11/2024 18:25 Note Text: CC: Patient presents with: Pain, Sinus: Pressure and pain in upper cheeks, headache, runny nose, chest congestion x 3 days HPI: Mary Crane is a 84 year old female who presents to the office with complaint of head congestion and sinus symptoms for a week. Symptoms are staying the same. Associated symptoms includes nasal congestion and facial pain/pressure. Denies wheezing, dyspnea, nausea, vomiting , and diarrhea. Treatments tried include nothing so far. with no relief of symptoms. Sick contacts: unknown. History of asthma, frequent episodes of bronchitis, chronic bronchitis, bronchiectasis or COPD: No Smoker: No Seasonal/environmental allergies: No The ROS is otherwise negative. The patient's pmh, medications, allergies, and past visits are reviewed. PHYSICAL EXAM: BP 147/77 Pulse 70 Temp 37.1 ?C (98.7 ?F) Resp 22 Wt 69 kg (152 lb 1.9 oz) SpO2 96% BMI 26.95 kg/m? General appearance: alert, cooperative, pleasant, in no acute distress Head: Normocephalic Eyes: EOM's intact, conjunctiva pink and moist, no icterus, sclera white, non-injected Ears: Right ear: External ear/canal- Normal, TM - clear with good landmarks. Left ear: External ear/canal- Normal, TM - clear with good landmarks Oropharynx:moist without lesions, No erythema, exudates or tonsillar hypertrophy. Heart: Negative. RRR without obvious murmur, gallop, or rubs. No ectopy. Lungs: clear to auscultation, without rales or wheeze, good air exchange PAST MEDICAL HISTORY Diagnosis Date Advance care planning 04/01/2022 Daughter Noemy Arrhythmia Benign neoplasm of colon Chronic kidney disease 02/09/2015 Diverticulosis of colon (without mention of hemorrhage) IFG (impaired fasting glucose) 03/2022 Incisional hernia 07/06/2015 Internal hemorrhoids without mention of complication Rheumatoid arthritis(714.0) Rheumatoid arthritis(714.0) Sicca syndrome (HCC) Unspecified essential hypertension PAST SURGICAL HISTORY Procedure Laterality Date CATARACT EXTRACTION HX 10/12/2004 COLONOSCOPY FLX DX W/COLLJ SPEC WHEN PFRMD 09/30/2005 Colonoscopy COLONOSCOPY FLX DX W/COLLJ SPEC WHEN PFRMD 07/28/2016 Colonoscopy COLONOSCOPY SCREENING 09/30/2022 multiple adenomatous polyps, repeat in 3 yrs ESOPHAGOGASTRODUODENOSCOPY TRANSORAL DIAGNOSTIC 12/21/2014 EGD LAPAROSCOPY SURG CHOLECYSTECTOMY 02/20/2015 NEUROPLASTY AND/TRANSPOS MEDIAN NRV CARPAL TUNNE 02/12/2006 Carpal tunnel decomp Left NEUROPLASTY AND/TRANSPOS MEDIAN NRV CARPAL TUNNE 02/27/2006 Carpal tunnel decomp Right PAST SURGICAL HISTORY OF 10/12/2001 hemorrhoidectomy , bladder, and umbilical hernia repair PAST SURGICAL HISTORY OF 08/12/2006 bladder suspension REPAIR FIRST ABDOMINAL WALL HERNIA 07/06/2015 with mesh VAGINAL HYSTERECTOMY UTERUS 250 GM/< 10/12/1983 Hysterectomy, vaginal and bladder tacked up ALLERGIES Floxin [Ofloxacin], Bumex [Bumetanide], Hydrochlorothiazide, Keflex [Cephalexin], Naproxen, Norvasc [Amlodipine Besylate], Penicillins, Proctosol [Hydrocortisone Acetate], Sulfa (Sulfonamide Antibiotics), Colchicine, and Minoxidil MEDICATIONS amiodarone (PACERONE) 200 mg tablet Take 1 tablet by mouth once daily. apixaban (ELIQUIS) 5 mg tab(s) Take 1 tablet by mouth two times a day. losartan (COZAAR) 50 mg tablet Take 1 tablet by mouth once daily. metoprolol tartrate, short acting, (LOPRESSOR) 100 mg tablet Take 1 tablet by mouth two times a day. furosemide (LASIX) 40 mg tablet Take 1 tablet by mouth once daily. cholecalciferol, Vitamin D3, (VITAMIN D3) 1,250 mcg (50,000 unit) cap capsule Take 1 capsule by mouth one time a week. potassium chloride ER (KLOR-CON M10) 10 mEq tablet Take 1 tablet by mouth two times a day. rosuvastatin (CRESTOR) 10 mg tablet Take 1 tablet by mouth once daily. nystatin (NYSTOP) powder Apply 1 application to affected area four times a day as needed. Yeast infection/rash in groin and under breasts ketoconazole (NIZORAL) 2 % cream Apply to affected area two times a day. (Patient taking differently: Apply to affected area two times a day. PRN) levothyroxine (LEVOXYL) 25 mcg tablet Take 1 tablet by mouth once daily. Take on empty stomach. For Thyroid folic acid 1 mg tablet Take 2 tablets by mouth once daily. triamcinolone acetonide (KENALOG) 0.1 % cream Apply 1 application to affected area two times a day as needed (rash). Apply sparingly to area for rash/itching. allopurinol (ZYLOPRIM) 100 mg tablet Take 1 tablet by mouth once daily. Cholecalciferol, Vitamin D3, 50 mcg (2,000 unit) cap Take 1 capsule by mouth once daily. dicyclomine (BENTYL) 10 mg capsule Take 1 capsule by mouth before meals and at bedtime. For diarrhea or abdominal cramping cyanocobalamin (VITAMIN B-12) 1,000 mcg tab Take 1,000 mcg by mouth onc (more content not included)... [facility] 11-11-2024 History of Present illness Narrative CC: Patient presents with: Pain, Sinus: Pressure and pain in upper cheeks, headache, runny nose, chest congestion x 3 days HPI: Mary Crane is a 84 year old female who presents to the office with complaint of head congestion and sinus symptoms for a week. Symptoms are staying the same. Associated symptoms includes nasal congestion and facial pain/pressure. Denies wheezing, dyspnea, nausea, vomiting , and diarrhea. Treatments tried include nothing so far. with no relief of symptoms. Sick contacts: unknown. History of asthma, frequent episodes of bronchitis, chronic bronchitis, bronchiectasis or COPD: No Smoker: No Seasonal/environmental allergies: No The ROS is otherwise negative. The patient's pmh, medications, allergies, and past visits are reviewed. PHYSICAL EXAM: BP 147/77 Pulse 70 Temp 37.1 C (98.7 F) Resp 22 Wt 69 kg (152 lb 1.9 oz) SpO2 96% BMI 26.95 kg/m General appearance: alert, cooperative, pleasant, in no acute distress Head: Normocephalic Eyes: EOM's intact, conjunctiva pink and moist, no icterus, sclera white, non-injected Ears: Right ear: External ear/canal- Normal, TM - clear with good landmarks. Left ear: External ear/canal- Normal, TM - clear with good landmarks Oropharynx:moist without lesions, No erythema, exudates or tonsillar hypertrophy. Heart: Negative. RRR without obvious murmur, gallop, or rubs. No ectopy. Lungs: clear to auscultation, without rales or wheeze, good air exchange PAST MEDICAL HISTORY Diagnosis Date Advance care planning 04/01/2022 Daughter Noemy Arrhythmia Benign neoplasm of colon Chronic kidney disease 02/09/2015 Diverticulosis of colon (without mention of hemorrhage) IFG (impaired fasting glucose) 03/2022 Incisional hernia 07/06/2015 Internal hemorrhoids without mention of complication Rheumatoid arthritis(714.0) Rheumatoid arthritis(714.0) Sicca syndrome (HCC) Unspecified essential hypertension PAST SURGICAL HISTORY Procedure Laterality Date CATARACT EXTRACTION HX 10/12/2004 COLONOSCOPY FLX DX W/COLLJ SPEC WHEN PFRMD 09/30/2005 Colonoscopy COLONOSCOPY FLX DX W/COLLJ SPEC WHEN PFRMD 07/28/2016 Colonoscopy COLONOSCOPY SCREENING 09/30/2022 multiple adenomatous polyps, repeat in 3 yrs ESOPHAGOGASTRODUODENOSCOPY TRANSORAL DIAGNOSTIC 12/21/2014 EGD LAPAROSCOPY SURG CHOLECYSTECTOMY 02/20/2015 NEUROPLASTY &/TRANSPOS MEDIAN NRV CARPAL TUNNE 02/12/2006 Carpal tunnel decomp Left NEUROPLASTY &/TRANSPOS MEDIAN NRV CARPAL TUNNE 02/27/2006 Carpal tunnel decomp Right PAST SURGICAL HISTORY OF 10/12/2001 hemorrhoidectomy , bladder, and umbilical hernia repair PAST SURGICAL HISTORY OF 08/12/2006 bladder suspension REPAIR FIRST ABDOMINAL WALL HERNIA 07/06/2015 with mesh VAGINAL HYSTERECTOMY UTERUS 250 GM/< 10/12/1983 Hysterectomy, vaginal and bladder tacked up ALLERGIES Floxin [Ofloxacin], Bumex [Bumetanide], Hydrochlorothiazide, Keflex [Cephalexin], Naproxen, Norvasc [Amlodipine Besylate], Penicillins, Proctosol [Hydrocortisone Acetate], Sulfa (Sulfonamide Antibiotics), Colchicine, and Minoxidil MEDICATIONS amiodarone (PACERONE) 200 mg tablet Take 1 tablet by mouth once daily. apixaban (ELIQUIS) 5 mg tab(s) Take 1 tablet by mouth two times a day. losartan (COZAAR) 50 mg tablet Take 1 tablet by mouth once daily. metoprolol tartrate, short acting, (LOPRESSOR) 100 mg tablet Take 1 tablet by mouth two times a day. furosemide (LASIX) 40 mg tablet Take 1 tablet by mouth once daily. cholecalciferol, Vitamin D3, (VITAMIN D3) 1,250 mcg (50,000 unit) cap capsule Take 1 capsule by mouth one time a week. potassium chloride ER (KLOR-CON M10) 10 mEq tablet Take 1 tablet by mouth two times a day. rosuvastatin (CRESTOR) 10 mg tablet Take 1 tablet by mouth once daily. nystatin (NYSTOP) powder Apply 1 application to affected area four times a day as needed. Yeast infection/rash in groin and under breasts ketoconazole (NIZORAL) 2 % cream Apply to affected area two times a day. (Patient taking differently: Apply to affected area two times a day. PRN) levothyroxine (LEVOXYL) 25 mcg tablet Take 1 tablet by mouth once daily. Take on empty stomach. For Thyroid folic acid 1 mg tablet Take 2 tablets by mouth once daily. triamcinolone acetonide (KENALOG) 0.1 % cream Apply 1 application to affected area two times a day as needed (rash). Apply sparingly to area for rash/itching. allopurinol (ZYLOPRIM) 100 mg tablet Take 1 tablet by mouth once daily. Cholecalciferol, Vitamin D3, 50 mcg (2,000 unit) cap Take 1 capsule by mouth once daily. dicyclomine (BENTYL) 10 mg capsule Take 1 capsule by mouth before meals and at bedtime. For diarrhea or abdominal cramping cyanocobalamin (VITAMIN B-12) 1,000 mcg tab Take 1,000 mcg by mouth once daily. triamcinolone acetonide (KENALOG) 0.1 % cream Apply 1 application to affected area twice daily. On rash, Apply sparingly to area for rash/itching. (Patient taking differently: Apply 1 application to affected area two times a day. On rash, Apply sparingly to area for rash/itching. Uses as needed) vit A/vit C/vit E/zinc/copper (OCUVITE PRESERVISION ORAL) Take by mouth twice daily. apremilast (OTEZLA) 30 mg tablet Take 30 mg by mouth twice daily. hydrocortisone probutate 0.1 % crea Apply to affected area once daily as needed. loratadine (CLARITIN) 10 mg tablet Take 10 mg by mouth once daily. Takes daily as needed acetaminophen (TYLENOL) 325 mg tablet Take 650 mg by mouth every 6 hours as needed. doxycycline (VIBRA-TABS) 100 mg tablet Take 1 tablet by mouth two times a day for 7 days. FAMILY HISTORY Problem Relation Age of Onset Diabetes Mother Hypertension Mother Heart Father Diabetes Sister No Known Problems Sister No Known Problems Brother Heart Brother No Known Problems Brother Social History Tobacco Use Smoking status: Never Smokeless tobacco: Never Vaping Use Vaping status: Never Used Substance Use Topics Alcohol use: No Drug use: No ASSESSMENT/PLAN: 1. Rhinosinusitis - ICD9: 473.9, ICD10: J32.9 - DOXYCYCLINE HYCLATE 100 MG TABLET Prescription instructions reviewed with patient as applicable. Potential red flag symptoms discussed with the patient. Reviewed appropriate action plan to take if red flag symptoms occur. Patient agreeable to treatment plan. Maria E Brewster APRN.GROCERY BAGGER documented in this encounter [facility] 11-07-2024 Note HNO ID: [id number] Author: KIRSTIN REYES RN Service: ? Author Type: Registered Nurse Type: Progress Notes Filed: 11/07/2024 15:25 Note Text: Transitional Care Management (TCM) Follow-Up Note PCP Update / Actionable Items N/A - No specialty updates needed Patient Source: [place] ([facility]) Discharge Outreach Summary: Patient states is feeling better, saw Card today, 11/07/24, was told she was doing fine Cough a little bit phlegm clear Sob sometimes on exertion, Denies CP, wheezing fever/chills, n/v Appetite better than what it was Voiding and bm without difficulty, BM 11/07/24 Ambulating up ad antoine up Denies questions, concerns regarding medications, self care , no issues, stable Future Appts 11/07/24 Card Wstr 02/07/25 Famp Wstr 07/17 Card Wstr Patient discharged from [facility], Discharge date: 10/18/24 Admitted for: Cough , A-Fib with RVR, sob, chest pain, palpitations, shortness of breath. Readmission Risk: n/a Value-Based Contract: Michelle RAY Contact: Contact made with patient: Yes Spoke to: Patient Validation: Validated the person spoken to is actively involved in the patient's care. The patient was identified by Name and Date of . I'd like to get an update on how you're doing since our last phone call. Is now a good time to talk? Yes Symptoms: Are you feeling about the same, better or worse since leaving the hospital? Better Weekly Outreach: 2nd Outreach Medications: Do you have any questions about taking your medications, including which medications you should be on, or do you need refills on your medications? No Patient Questions / Concerns: Do you have any questions related to your discharge? No Appointment / TCM Follow-Up: Have you had a follow-up visit with your Primary Care Provider or Specialist since you were discharged? Yes Do you need any assistance with scheduling or changing your follow-up appointments? Patient already has an appointment scheduled SDOH: Has Food and Housing been addressed in Social Determinants in the past 3 months? Yes Education N/A Targets addressed / completed during outreach: Prevent readmission for 30 days Outreach Outcome: Continue TCM Outreach for remainder of 30 days Care Management partners utilized: N/A Kirstin Reyes RN November 07, 2024 3:23 PM [facility] 11-07-2024 History of Present illness Narrative Transitional Care Management (TCM) Follow-Up Note PCP Update / Actionable Items N/A - No specialty updates needed Patient Source: [id number] ([facility]) Discharge Outreach Summary: Patient states is feeling better, saw Card today, 11/07/24, was told she was doing fine Cough a little bit phlegm clear Sob sometimes on exertion, Denies CP, wheezing fever/chills, n/v Appetite better than what it was Voiding and bm without difficulty, BM 11/07/24 Ambulating up ad antoine up Denies questions, concerns regarding medications, self care , no issues, stable Future Appts 11/07/24 Card Wstr 02/07/25 Famp Wstr 07/17 Card Wstr Patient discharged from [facility], Discharge date: 10/18/24 Admitted for: Cough , A-Fib with RVR, sob, chest pain, palpitations, shortness of breath. Readmission Risk: n/a Value-Based Contract: Michelle RAY Contact: Contact made with patient: Yes Spoke to: Patient Validation: Validated the person spoken to is actively involved in the patient's care. The patient was identified by Name and Date of . I'd like to get an update on how you're doing since our last phone call. Is now a good time to talk? Yes Symptoms: Are you feeling about the same, better or worse since leaving the hospital? Better Weekly Outreach: 2nd Outreach Medications: Do you have any questions about taking your medications, including which medications you should be on, or do you need refills on your medications? No Patient Questions / Concerns: Do you have any questions related to your discharge? No Appointment / TCM Follow-Up: Have you had a follow-up visit with your Primary Care Provider or Specialist since you were discharged? Yes Do you need any assistance with scheduling or changing your follow-up appointments? Patient already has an appointment scheduled SDOH: Has Food and Housing been addressed in Social Determinants in the past 3 months? Yes Education N/A Targets addressed / completed during outreach: Prevent readmission for 30 days Outreach Outcome: Continue TCM Outreach for remainder of 30 days Care Management partners utilized: N/A Kirstin Reyes RN November 07, 2024 3:23 PM documented in this encounter [facility] 11-07-2024 Instructions Rasheed Barrios MD - 11/07/2024 10:43 AM EST We are decreasing the Amiodarone to 200 mg once per day documented in this encounter [facility] 11-07-2024 History of Present illness Narrative Images from the original note were not included. [facility] CARDIOLOGY Cardiology ([facility]) [address] [facility] [id number] OUTPATIENT VISIT DATE 11/07/2024 PRIMARY CARE PHYSICIAN: Atul Harvey [address] [place] [address] HISTORY OF PRESENT ILLNESS: Ms. Crane is a 84 year old woman with history of paroxysmal atrial fibrillation, mild pulmonary hypertension, essential hypertension, and rheumatoid arthritis who presents to the office for follow-up after hospital admission. Patient was admitted with RSV and developed A-fib with rapid ventricular response. She was placed on appropriate medical therapy. Since hospital discharge she has been feeling much better. Her functional capacity is markedly improved. She has not had feelings of palpitations or heart racing. PAST MEDICAL HISTORY Diagnosis Date Advance care planning 04/01/2022 Daughter Noemy Arrhythmia Benign neoplasm of colon Chronic kidney disease 02/09/2015 Diverticulosis of colon (without mention of hemorrhage) IFG (impaired fasting glucose) 03/2022 Incisional hernia 07/06/2015 Internal hemorrhoids without mention of complication Rheumatoid arthritis(714.0) Rheumatoid arthritis(714.0) Sicca syndrome (HCC) Unspecified essential hypertension PAST SURGICAL HISTORY Procedure Laterality Date CATARACT EXTRACTION HX 10/12/2004 COLONOSCOPY FLX DX W/COLLJ SPEC WHEN PFRMD 09/30/2005 Colonoscopy COLONOSCOPY FLX DX W/COLLJ SPEC WHEN PFRMD 07/28/2016 Colonoscopy COLONOSCOPY SCREENING 09/30/2022 multiple adenomatous polyps, repeat in 3 yrs ESOPHAGOGASTRODUODENOSCOPY TRANSORAL DIAGNOSTIC 12/21/2014 EGD LAPAROSCOPY SURG CHOLECYSTECTOMY 02/20/2015 NEUROPLASTY &/TRANSPOS MEDIAN NRV CARPAL TUNNE 02/12/2006 Carpal tunnel decomp Left NEUROPLASTY &/TRANSPOS MEDIAN NRV CARPAL TUNNE 02/27/2006 Carpal tunnel decomp Right PAST SURGICAL HISTORY OF 10/12/2001 hemorrhoidectomy , bladder, and umbilical hernia repair PAST SURGICAL HISTORY OF 08/12/2006 bladder suspension REPAIR FIRST ABDOMINAL WALL HERNIA 07/06/2015 with mesh VAGINAL HYSTERECTOMY UTERUS 250 GM/< 10/12/1983 Hysterectomy, vaginal and bladder tacked up SOCIAL HISTORY Social History Tobacco Use Smoking status: Never Smokeless tobacco: Never Vaping Use Vaping status: Never Used Substance Use Topics Alcohol use: No Drug use: No FAMILY HISTORY Problem Relation Age of Onset Diabetes Mother Hypertension Mother Heart Father Diabetes Sister No Known Problems Sister No Known Problems Brother Heart Brother No Known Problems Brother ALLERGIES: ALLERGIES Allergen Reactions Floxin [Ofloxacin] Anaphylaxis Bumex [Bumetanide] Intolerance Hydrochlorothiazide Rash, Intolerance leucocytoclastic vasculitis Keflex [Cephalexin] Rash Naproxen Rash, Hives Norvasc [Amlodipine* Intolerance Penicillins Intolerance Rash Proctosol [Hydrocor* Intolerance Sulfa (Sulfonamide * Rash, GI Upset Colchicine Hives Minoxidil Other: See Comments facial hair MEDICATIONS: losartan (COZAAR) 50 mg tablet Take 1 tablet by mouth once daily. metoprolol tartrate, short acting, (LOPRESSOR) 100 mg tablet Take 1 tablet by mouth two times a day. amiodarone (PACERONE) 200 mg tablet Take 1 tablet by mouth two times a day. apixaban (ELIQUIS) 5 mg tab(s) Take 1 tablet by mouth two times a day. furosemide (LASIX) 40 mg tablet Take 1 tablet by mouth once daily. cholecalciferol, Vitamin D3, (VITAMIN D3) 1,250 mcg (50,000 unit) cap capsule Take 1 capsule by mouth one time a week. potassium chloride ER (KLOR-CON M10) 10 mEq tablet Take 1 tablet by mouth two times a day. rosuvastatin (CRESTOR) 10 mg tablet Take 1 tablet by mouth once daily. nystatin (NYSTOP) powder Apply 1 application to affected area four times a day as needed. Yeast infection/rash in groin and under breasts ketoconazole (NIZORAL) 2 % cream Apply to affected area two times a day. (Patient taking differently: Apply to affected area two times a day. PRN) levothyroxine (LEVOXYL) 25 mcg tablet Take 1 tablet by mouth once daily. Take on empty stomach. For Thyroid folic acid 1 mg tablet Take 2 tablets by mouth once daily. triamcinolone acetonide (KENALOG) 0.1 % cream Apply 1 application to affected area two times a day as needed (rash). Apply sparingly to area for rash/itching. allopurinol (ZYLOPRIM) 100 mg tablet Take 1 tablet by mouth once daily. Cholecalciferol, Vitamin D3, 50 mcg (2,000 unit) cap Take 1 capsule by mouth once daily. dicyclomine (BENTYL) 10 mg capsule Take 1 capsule by mouth before meals and at bedtime. For diarrhea or abdominal cramping cyanocobalamin (VITAMIN B-12) 1,000 mcg tab Take 1,000 mcg by mouth once daily. triamcinolone acetonide (KENALOG) 0.1 % cream Apply 1 application to affected area twice daily. On rash, Apply sparingly to area for rash/itching. (Patient taking differently: Apply 1 application to affected area two times a day. On rash, Apply sparingly to area for rash/itching. Uses as needed) vit A/vit C/vit E/zinc/copper (OCUVITE PRESERVISION ORAL) Take by mouth twice daily. apremilast (OTEZLA) 30 mg tablet Take 30 mg by mouth twice daily. hydrocortisone probutate 0.1 % crea Apply to affected area once daily as needed. loratadine (CLARITIN) 10 mg tablet Take 10 mg by mouth once daily. Takes daily as needed acetaminophen (TYLENOL) 325 mg tablet Take 650 mg by mouth every 6 hours as needed. REVIEW OF SYSTEMS: Review of Systems Constitutional: Negative for chills, fever, malaise/fatigue and weight loss. HENT: Negative for hearing loss and sore throat. Eyes: Negative for blurred vision and double vision. Respiratory: Negative. Cardiovascular: Negative for palpitations. Gastrointestinal: Negative. Genitourinary: Negative for dysuria, frequency, hematuria and urgency. Musculoskeletal: Positive for joint pain. Skin: Negative. Neurological: Negative for dizziness, seizures, loss of consciousness, weakness and headaches. Endo/Heme/Allergies: Negative for environmental allergies. Does not bruise/bleed easily. Psychiatric/Behavioral: Negative for depression. PHYSICAL EXAMINATION: BP 140/90 (BP Site: Right Arm, BP Position: Sitting, BP Cuff Size: Large Adult) Pulse 71 Resp 14 Ht 160 cm (5' 3) Wt 68.5 kg (151 lb) SpO2 99% BMI 26.75 kg/m General: Pleasant woman sitting appears comfortable and in no apparent distress. She is alert and oriented x3 HEENT: Carotid upstrokes are brisk bilaterally without bruits. No JVD appreciated. Pulmonary: Lungs are clear no rales, wheezes, or rhonchi. Cardiovascular: Normal S1-S2. Irregularly irregular rhythm noted. Some evidence of bradycardia. Holosystolic 2/6 murmur at the apex in the axilla. Extremities: Warm, well-perfused, no lower extremity edema. Dorsalis pedis and posterior tibial pulses are 1-2+. CARDIOVASCULAR MEDICINE TESTING: ECG office 08/01/2024: Sinus rhythm with frequent PACs. During monitoring there appeared to be some evidence of atrial fibrillation although not clear. First-degree AV block. Nonspecific ST-T wave changes ECG in the office 09/29/2022: Normal sinus rhythm with sinus arrhythmia. First-degree AV block (244 ms). Occasional PVCs. No significant ST or T wave changes ECG in the office 09/02/2021: Normal sinus rhythm with first-degree AV block and occasional conducted PACs. Nonspecific ST-T wave changes noted in leads V1 through V3 Lexiscan Cardiolite stress test 07/15/2016: Soft tissue attenuation artifact. No evidence of myocardial ischemia or scar Gated study reports of left ventricular ejection fraction of 77% Echocardiogram 10/13/2024: Normal LV size. Left ventricular systolic function is normal. The left ventricular ejection fraction is 55 %. Pulmonary artery systolic pressure is 40 mmHg. Contrast injection was performed. Echocardiogram 05/03/2024: - Technically difficult exam due to body habitus. - Exam indication: Ascending aortic aneurysm - The left ventricle is normal in size. There is mild concentric left ventricular hypertrophy. Left ventricular systolic function is normal. EF = 54 5% (2D biplane) Indeterminate left ventricular diastolic dysfunction. - The right ventricle is normal in size. Right ventricular systolic function is normal. - The visualized aorta is dilated with a maximal dimension of 4.1 cm. - There is moderate (2+) mitral valve regurgitation. Borderline mitral valve prolapse. - Exam was compared with the prior echocardiographic exam performed on 04/17/2023, with increase in mitral regurgitation and previous aortic size measured at 3.8 cm. Echocardiogram 04/17/2023: - The left ventricle is normal in size. Left ventricular systolic function is normal. EF = 55 5% (2D 4-ch.) Indeterminate left ventricular diastolic dysfunction. - The right ventricle is normal in size. Right ventricular systolic function is normal. - The left atrial cavity is mildly dilated. - The visualized aorta is borderline dilated with a maximal dimension of 3.8 cm. - There are no significant valvular abnormalities. - Exam was compared with the prior echocardiographic exam performed on 06/07/2020, no significant change. Echocardiogram 06/07/2020: - Technically difficult exam due to body habitus. - Exam indication: Shortness of Breath - The left ventricle is normal in size. Left ventricular systolic function is normal. EF = 58 5% (2D biplane) Indeterminate left ventricular diastolic dysfunction due to inconsistent or technically suboptimal data. - The right ventricle is normal in size. Right ventricular systolic function is normal. - There are no significant valvular abnormalities. - The visualized aorta is borderline dilated with a maximal dimension of 3.8 cm. - Estimated right ventricular systolic pressure is 38 mmHg consistent with mild pulmonary hypertension. Estimated right atrial pressure is 8 mmHg based on IVC assessment. - Exam was compared with the prior CC echocardiographic exam performed on 08/12/2011 (Stress), MR appears a little bit less today. Extended Monitoring-[employer] Patch Enrollment Dates: 08/01/2024-08/15/2024 IRHYTHM FINDINGS: Patient had a min HR of 45 bpm, max HR of 155 bpm, and avg HR of 69 bpm. Predominant underlying rhythm was Atrial Fibrillation. First Degree AV Block was present. 10 Supraventricular Tachycardia runs occurred, the run with the fastest interval lasting 7 beats with a max rate of 104 bpm (avg 96 bpm); the run with the fastest interval was also the longest. Atrial Fibrillation occurred (58% burden), ranging from 45-155 bpm (avg of 75 bpm), the longest lasting 7 days 16 hours with an avg rate of 73 bpm. Atrial Fibrillation was detected within +/- 45 seconds of symptomatic patient event(s). Isolated SVEs were frequent (5.9%, 46948), SVE Couplets were rare (<1.0%, 4227), and SVE Triplets were frequent (7.6%, 90488). Isolated VEs were occasional (3.5%, 99662), and no VE Couplets or VE Triplets were present. Ventricular Trigeminy was present. IMPRESSION: Ms. Crane is a 84 year old woman with paroxysmal atrial fibrillation, chronic diastolic heart failure, hypertension, dyslipidemia, and mild pulmonary hypertension who presents for follow-up after recent hospital admission. PLAN AND RECOMMENDATIONS: 1. Paroxysmal atrial fibrillation (HCC) - ICD9: 427.31, ICD10: I48.0 (primary diagnosis) Decrease amiodarone to 200 mg daily. She is on Eliquis for stroke risk reduction - AMIODARONE 200 MG TABLET - APIXABAN 5 MG TABLET - LOSARTAN 50 MG TABLET - METOPROLOL TARTRATE 100 MG TABLET 2. Hypertension, essential - ICD9: 401.9, ICD10: I10 Adequate controlled on current regimen 3. Chronic diastolic congestive heart failure (HCC) - ICD9: 428.32, 428.0, ICD10: I50.32 Continue to advise on low-sodium diet 4. Thoracic aortic ectasia (HCC) - ICD9: 447.71, ICD10: I77.810 5. Nonrheumatic mitral valve regurgitation - ICD9: 424.0, ICD10: I34.0 6. PVC (premature ventricular contraction) - ICD9: 427.69, ICD10: I49.3 7. Pulmonary hypertension (HCC) - ICD9: 416.8, ICD10: I27.20 Rasheed Barrios MD documented in this encounter [facility] 11-07-2024 Note HNO ID: [id number] Author: RASHEED BARRIOS MD Service: ? Author Type: Physician Type: Progress Notes Filed: 11/07/2024 10:57 Note Text: [facility] SECTION [facility] REGIONAL CARDIOLOGY Cardiology ([facility]) [address] [facility] [id number] OUTPATIENT VISIT DATE 11/07/2024 PRIMARY CARE PHYSICIAN: Atul Harvey [address] [place] [address] HISTORY OF PRESENT ILLNESS: Ms. Crane is a 84 year old woman with history of paroxysmal atrial fibrillation, mild pulmonary hypertension, essential hypertension, and rheumatoid arthritis who presents to the office for follow-up after hospital admission. Patient was admitted with RSV and developed A-fib with rapid ventricular response. She was placed on appropriate medical therapy. Since hospital discharge she has been feeling much better. Her functional capacity is markedly improved. She has not had feelings of palpitations or heart racing. PAST MEDICAL HISTORY Diagnosis Date Advance care planning 04/01/2022 Daughter Noemy Arrhythmia Benign neoplasm of colon Chronic kidney disease 02/09/2015 Diverticulosis of colon (without mention of hemorrhage) IFG (impaired fasting glucose) 03/2022 Incisional hernia 07/06/2015 Internal hemorrhoids without mention of complication Rheumatoid arthritis(714.0) Rheumatoid arthritis(714.0) Sicca syndrome (HCC) Unspecified essential hypertension PAST SURGICAL HISTORY Procedure Laterality Date CATARACT EXTRACTION HX 10/12/2004 COLONOSCOPY FLX DX W/COLLJ SPEC WHEN PFRMD 09/30/2005 Colonoscopy COLONOSCOPY FLX DX W/COLLJ SPEC WHEN PFRMD 07/28/2016 Colonoscopy COLONOSCOPY SCREENING 09/30/2022 multiple adenomatous polyps, repeat in 3 yrs ESOPHAGOGASTRODUODENOSCOPY TRANSORAL DIAGNOSTIC 12/21/2014 EGD LAPAROSCOPY SURG CHOLECYSTECTOMY 02/20/2015 NEUROPLASTY AND/TRANSPOS MEDIAN NRV CARPAL TUNNE 02/12/2006 Carpal tunnel decomp Left NEUROPLASTY AND/TRANSPOS MEDIAN NRV CARPAL TUNNE 02/27/2006 Carpal tunnel decomp Right PAST SURGICAL HISTORY OF 10/12/2001 hemorrhoidectomy , bladder, and umbilical hernia repair PAST SURGICAL HISTORY OF 08/12/2006 bladder suspension REPAIR FIRST ABDOMINAL WALL HERNIA 07/06/2015 with mesh VAGINAL HYSTERECTOMY UTERUS 250 GM/< 10/12/1983 Hysterectomy, vaginal and bladder tacked up SOCIAL HISTORY Social History Tobacco Use Smoking status: Never Smokeless tobacco: Never Vaping Use Vaping status: Never Used Substance Use Topics Alcohol use: No Drug use: No FAMILY HISTORY Problem Relation Age of Onset Diabetes Mother Hypertension Mother Heart Father Diabetes Sister No Known Problems Sister No Known Problems Brother Heart Brother No Known Problems Brother ALLERGIES: ALLERGIES Allergen Reactions Floxin [Ofloxacin] Anaphylaxis Bumex [Bumetanide] Intolerance Hydrochlorothiazide Rash, Intolerance leucocytoclastic vasculitis Keflex [Cephalexin] Rash Naproxen Rash, Hives Norvasc [Amlodipine* Intolerance Penicillins Intolerance Rash Proctosol [Hydrocor* Intolerance Sulfa (Sulfonamide * Rash, GI Upset Colchicine Hives Minoxidil Other: See Comments facial hair MEDICATIONS: losartan (COZAAR) 50 mg tablet Take 1 tablet by mouth once daily. metoprolol tartrate, short acting, (LOPRESSOR) 100 mg tablet Take 1 tablet by mouth two times a day. amiodarone (PACERONE) 200 mg tablet Take 1 tablet by mouth two times a day. apixaban (ELIQUIS) 5 mg tab(s) Take 1 tablet by mouth two times a day. furosemide (LASIX) 40 mg tablet Take 1 tablet by mouth once daily. cholecalciferol, Vitamin D3, (VITAMIN D3) 1,250 mcg (50,000 unit) cap capsule Take 1 capsule by mouth one time a week. potassium chloride ER (KLOR-CON M10) 10 mEq tablet Take 1 tablet by mouth two times a day. rosuvastatin (CRESTOR) 10 mg tablet Take 1 tablet by mouth once daily. nystatin (NYSTOP) powder Apply 1 application to affected area four times a day as needed. Yeast infection/rash in groin and under breasts ketoconazole (NIZORAL) 2 % cream Apply to affected area two times a day. (Patient taking differently: Apply to affected area two times a day. PRN) levothyroxine (LEVOXYL) 25 mcg tablet Take 1 tablet by mouth once daily. Take on empty stomach. For Thyroid folic acid 1 mg tablet Take 2 tablets by mouth once daily. triamcinolone acetonide (KENALOG) 0.1 % cream Apply 1 application to affected area two times a day as needed (rash). Apply sparingly to area for rash/itching. allopurinol (ZYLOPRIM) 100 mg tablet Take 1 tablet by mouth once daily. Cholecalciferol, Vitamin D3, 50 mcg (2,000 unit) cap Take 1 capsule by mouth once daily. dicyclomine (BENTYL) 10 mg capsule Take 1 capsule by mouth before meals and at bedtime. For diarrhea or abdominal cramping cyanocobalamin (VITAMIN B-12) 1,000 mcg tab Take 1,000 mcg by mouth once daily. tria (more content not included)... [facility] 11-07-2024 Note Patient Outreach ([facility] [place]) MARY CRANE ([id number]) 1940 F TXT Date Time Provider Department 11/07/24 KIRSTIN REYES During your visit today, we recorded the following information about you: Kirstin Reyes, JOSE 11/07/2024 3:25 PM Signed Transitional Care Management (TCM) Follow-Up Note PCP Update / Actionable Items N/A - No specialty updates needed Patient Source: [id number] (OON) Discharge Outreach Summary: Patient states is feeling better, saw Card today, 11/07/24, was told she was doing fine Cough a little bit phlegm clear Sob sometimes on exertion, Denies CP, wheezing fever/chills, n/v Appetite better than what it was Voiding and bm without difficulty, BM 11/07/24 Ambulating up ad antoine up Denies questions, concerns regarding medications, self care , no issues, stable Future Appts 11/07/24 Card Wstr 02/07/25 Famp Wstr 07/17 Card Wstr Patient discharged from [facility], Discharge date: 10/18/24 Admitted for: Cough , A-Fib with RVR, sob, chest pain, palpitations, shortness of breath. Readmission Risk: n/a Value-Based Contract: Michelle RAY Contact: Contact made with patient: Yes Spoke to: Patient Validation: Validated the person spoken to is actively involved in the patient's care. The patient was identified by Name and Date of . I'd like to get an update on how you're doing since our last phone call. Is now a good time to talk? Yes Symptoms: Are you feeling about the same, better or worse since leaving the hospital? Better Weekly Outreach: 2nd Outreach Medications: Do you have any questions about taking your medications, including which medications you should be on, or do you need refills on your medications? No Patient Questions / Concerns: Do you have any questions related to your discharge? No Appointment / TCM Follow-Up: Have you had a follow-up visit with your Primary Care Provider or Specialist since you were discharged? Yes Do you need any assistance with scheduling or changing your follow-up appointments? Patient already has an appointment scheduled SDOH: Has Food and Housing been addressed in Social Determinants in the past 3 months? Yes Education N/A Targets addressed / completed during outreach: Prevent readmission for 30 days Outreach Outcome: Continue TCM Outreach for remainder of 30 days Care Management partners utilized: N/A Kirstin Reyes RN November 07, 2024 3:23 PM Allergies As of Date: 11/07/2024 Noted Allergy Reaction FLOXIN (OFLOXACIN) 09/10/2005 10 - Anaphylaxis BUMEX (BUMETANIDE) 09/10/2005 5 - Intolerance HYDROCHLOROTHIAZIDE 09/10/2005 2 - Rash 5 - Intolerance Comments: leucocytoclastic vasculitis KEFLEX (CEPHALEXIN) 09/10/2005 2 - Rash NAPROXEN 09/10/2005 2 - Rash 4 - Hives NORVASC (AMLODIPINE BESYLATE) 09/10/2005 5 - Intolerance PENICILLINS 09/10/2005 5 - Intolerance Comments: Rash PROCTOSOL (HYDROCORTISONE ACETATE)09/10/2005 5 - Intolerance SULFA (SULFONAMIDE ANTIBIOTICS) 09/10/2005 2 - Rash 8 - GI Upset COLCHICINE 10/17/2005 4 - Hives MINOXIDIL 03/24/2011 14 - Other: See Comments Comments: facial hair Date Reviewed: 11/07/2024 Reviewed by: Rasheed Barrios MD - Fully Assessed Reason for Visit: Transition Of Care [4074] Cmt: [facility], Follow-up Day 20 Prescriptions as of 11/07/2024 - amiodarone (PACERONE) 200 mg tablet Take 1 tablet by mouth once daily. - apixaban (ELIQUIS) 5 mg tab(s) Take 1 tablet by mouth two times a day. - losartan (COZAAR) 50 mg tablet Take 1 tablet by mouth once daily. - metoprolol tartrate, short acting, (LOPRESSOR) 100 mg tablet Take 1 tablet by mouth two times a day. - furosemide (LASIX) 40 mg tablet Take 1 tablet by mouth once daily. - cholecalciferol, Vitamin D3, (VITAMIN D3) 1,250 mcg (50,000 unit) cap capsule Take 1 capsule by mouth one time a week. - potassium chloride ER (KLOR-CON M10) 10 mEq tablet Take 1 tablet by mouth two times a day. - rosuvastatin (CRESTOR) 10 mg tablet Take 1 tablet by mouth once daily. - nystatin (NYSTOP) powder Apply 1 application to affected area four times a day as needed. Yeast infection/rash in groin and under breasts - ketoconazole (NIZORAL) 2 % cream Apply to affected area two times a day. - levothyroxine (LEVOXYL) 25 mcg tablet Take 1 tablet by mouth once daily. Take on empty stomach. For Thyroid - folic acid 1 mg tablet Take 2 tablets by mouth once daily. - triamcinolone acetonide (KENALOG) 0.1 % cream Apply 1 application to affected area two times a day as needed (rash). Apply sparingly to area for rash/itching. - allopurinol (ZYLOPRIM) 100 mg tablet Take 1 tablet by mouth once daily. - Cholecalciferol, Vitamin D3, 50 mcg (2,000 unit) cap Take 1 capsule by mouth once daily. - dicyclomine (BENTYL) 10 mg capsule Take 1 capsule by mout (more content not included)... [facility] 10-26-2024 Telephone encounter Note Pt informed, verbalized understanding. Pt reports she will take one before dinner. Lulú Tang MA [facility] 10-26-2024 Miscellaneous Notes Pt informed, verbalized understanding. Pt reports she will take one before dinner. Lulú Tang MA Yes a stool softener would be fine to try. Catalina Jauregui APRN.CNP Pt called in and reports she just got out of the hospital 4 days ago. She had an appointment yesterday with Catalina Jauregui NP, but forgot to tell her about having constipation. Pt states since she has gotten out of the hospital she has been feeling constipated. She states she had a small BM 2 days ago. Today she feels pressure like she needs to have a BM, but can't go. Pt was asking what the provider would recommend she take with all the other medication she is on. She was asking if a stool softener would be ok. documented in this encounter [facility] 10-26-2024 Telephone encounter Note Yes a stool softener would be fine to try. Catalina Jauregui APRN.CNP [facility] 10-26-2024 Telephone encounter Note Pt called in and reports she just got out of the hospital 4 days ago. She had an appointment yesterday with Catalina Jauregui NP, but forgot to tell her about having constipation. Pt states since she has gotten out of the hospital she has been feeling constipated. She states she had a small BM 2 days ago. Today she feels pressure like she needs to have a BM, but can't go. Pt was asking what the provider would recommend she take with all the other medication she is on. She was asking if a stool softener would be ok. [facility] 10-25-2024 Instructions Catalina Jauregui APRN.FELICIA - 10/25/2024 10:51 AM EST In about a month (mid-November) go to the pharmacy to get your RSV shot. documented in this encounter [facility] 10-25-2024 Note HNO ID: [id number] Author: CATALINA JAUREGUI APRN.CNP Service: ? Author Type: Nurse Practitioner Type: Progress Notes Filed: 10/25/2024 11:18 Note Text: Transitional Care Management TCM Eligibility Documentation Program: Transitional Care Management Status: Enrolled Effective Dates: 10/24/2024 - present Responsible Staff: Kirstin Reyes RN Discharge date: 10/18/2024 (Program start) Date of initial contact: 10/24/2024 Initial contact Target status: Successful; Contact made within 2 business days post-discharge Provider Documentation Mary Crane is a 84 year old female here today for a follow up from recent hospitalization. I have reviewed the patient's hospital course including discharge summary, discharge medications , and follow up needs with the patient and any family members present at today's visit. HPI Thinks she may have gotten sick from a family member at [place]-got sick about 6 days later. Started with stuffy nose and then drippy nose and a little bit of a cough. On 10/12 came to express care and then was sent to [facility] ER and admitted. Was dx with RSV and admitted to the hospital-there for 6 days. Has had irregular heart beat in the past. Was dx with new onset a-fib with RVR. Had a Cardizem gtt in the hospital. Has appt with boring mill operator for metal Dr. Barrios on 11/07. Overall feeling a lot better. Drinking a lot of water and protein drinks. Daughter is doing as much as she can to get her to eat healthier. Breathing, wheezing is much better. Coughing a little but nothing major. Is doing the breathing exercises she was given at the hospital. PHYSICAL EXAMINATION BP 112/72 (BP Site: Left Arm, BP Position: Sitting, BP Cuff Size: Regular Adult) Pulse 73 Wt 68.8 kg (151 lb 9.6 oz) SpO2 98% BMI 26.85 kg/m? GENERAL: well appearing, alert, in no acute distress and weak HEART: irregular LUNGS: faint inspiratory wheeze to RUL EXTREMITIES: no lower extremity edema. No skin discoloration. ASSESSMENT/PLAN: 1. New onset a-fib (HCC) - ICD9: 427.31, ICD10: I48.91 (primary diagnosis) Continue with medications as prescribed at [facility]. Continue with cardiology at the end of this month. Continue with PCP f/u in January F/u as needed. 2. Encounter for immunization - ICD9: V03.89, ICD10: Z23 She will get her RSV shot at the pharmacy in 4-6 weeks. 3. RSV (acute bronchiolitis due to respiratory syncytial virus) - ICD9: 466.11, ICD10: J21.0 Continue with medications as prescribed at [facility]. Continue with cardiology at the end of this month. Continue with PCP f/u in January F/u as needed. 4. Generalized weakness - ICD9: 780.79, ICD10: R53.1 Continue with medications as prescribed at [facility]. Continue with cardiology at the end of this month. Continue with PCP f/u in January F/u as needed. 5. Decreased appetite - ICD9: 783.0, ICD10: R63.0 Continue with medications as prescribed at [facility]. Continue with cardiology at the end of this month. Continue with PCP f/u in January F/u as needed. Continue with increasing water and protein intake. Catalina Jauregui APRN.[facility] 10-25-2024 History of Present illness Narrative Transitional Care Management TCM Eligibility Documentation Program: Transitional Care Management Status: Enrolled Effective Dates: 10/24/2024 - present Responsible Staff: Marquis-Kirstni Vo RN Discharge date: 10/18/2024 (Program start) Date of initial contact: 10/24/2024 Initial contact Target status: Successful; Contact made within 2 business days post-discharge Provider Documentation Mary Crane is a 84 year old female here today for a follow up from recent hospitalization. I have reviewed the patient's hospital course including discharge summary, discharge medications , and follow up needs with the patient and any family members present at today's visit. HPI Thinks she may have gotten sick from a family member at [place]-got sick about 6 days later. Started with stuffy nose and then drippy nose and a little bit of a cough. On 10/12 came to express care and then was sent to [facility] ER and admitted. Was dx with RSV and admitted to the hospital-there for 6 days. Has had irregular heart beat in the past. Was dx with new onset a-fib with RVR. Had a Cardizem gtt in the hospital. Has appt with boring mill operator for metal Dr. Barrios on 11/07. Overall feeling a lot better. Drinking a lot of water and protein drinks. Daughter is doing as much as she can to get her to eat healthier. Breathing, wheezing is much better. Coughing a little but nothing major. Is doing the breathing exercises she was given at the hospital. PHYSICAL EXAMINATION BP 112/72 (BP Site: Left Arm, BP Position: Sitting, BP Cuff Size: Regular Adult) Pulse 73 Wt 68.8 kg (151 lb 9.6 oz) SpO2 98% BMI 26.85 kg/m GENERAL: well appearing, alert, in no acute distress and weak HEART: irregular LUNGS: faint inspiratory wheeze to RUL EXTREMITIES: no lower extremity edema. No skin discoloration. ASSESSMENT/PLAN: 1. New onset a-fib (HCC) - ICD9: 427.31, ICD10: I48.91 (primary diagnosis) Continue with medications as prescribed at [facility]. Continue with cardiology at the end of this month. Continue with PCP f/u in January F/u as needed. 2. Encounter for immunization - ICD9: V03.89, ICD10: Z23 She will get her RSV shot at the pharmacy in 4-6 weeks. 3. RSV (acute bronchiolitis due to respiratory syncytial virus) - ICD9: 466.11, ICD10: J21.0 Continue with medications as prescribed at [facility]. Continue with cardiology at the end of this month. Continue with PCP f/u in January F/u as needed. 4. Generalized weakness - ICD9: 780.79, ICD10: R53.1 Continue with medications as prescribed at [facility]. Continue with cardiology at the end of this month. Continue with PCP f/u in January F/u as needed. 5. Decreased appetite - ICD9: 783.0, ICD10: R63.0 Continue with medications as prescribed at [facility]. Continue with cardiology at the end of this month. Continue with PCP f/u in January F/u as needed. Continue with increasing water and protein intake. Catalina Jauregui APRN.FELICIA documented in this encounter [facility] 10-24-2024 Note HNO ID: [id number] Author: KIRSTIN REYES RN Service: ? Author Type: Registered Nurse Type: Progress Notes Filed: 10/24/2024 14:01 Note Text: Transition Care Management (TCM) Initial Outreach PCP Update / Actionable Items Eligible for tcm through 11/01/24 HRTIC TCM Home Visit Referral Source of Stratification: TCM [facility] Hospital Admission Status: Discharged Readmission Risk Score: n/a Patient's zip code: [address] Is zip code within program service area: No Patient meets program referral criteria: No Patient does not qualify for High Risk TCM Home Visit program due to: Patient's zip code is not located within program service area Disposition: Patient does not qualify for HRTIC, will provide TCM outreach follow-up for 30-days Patient Source: [id number] (OON) Discharge Outreach Summary: Patient states is feeling better, but weak Cough is better, phlegm light yellow Sob sometimes on exertion, a little wheezing, nothing like it was Denies CP, fever/chills, n/v Appetite decrease, food taste bland, get full fast are hydrating and drinking protein shakes Voiding and bm without difficulty, BM 10/23/24 Ambulating up ad antoine up with cane Denies questions, concerns regarding medications, self care , no issues, stable Patient discharged from [facility], Discharge date: 10/18/24 Admitted for: Cough , A-Fib with RVR, sob, chest pain, palpitations, shortness of breath. Readmission Risk: n/a Value-Based Contract: Michelle RAY Contact: Contact made with patient: Yes Hi, my name is Kirstin Reyes RN and I am calling from the [facility] on behalf of your Primary Care Provider, Atul Harvey DO. I understand you were recently in the hospital, so I am calling to check in with you to ensure you are feeling well now that you are home. May I ask you a few questions related to your hospital stay and well-being? Yes Spoke to: Patient Validation: Validated the person spoken to is actively involved in the patient's care. The patient was identified by Name and Date of . Symptoms: Are you feeling about the same, better or worse since leaving the hospital? Better Medications: Do you have any questions about taking your medications, including which medications you should be on, or do you need refills on your medications? No Medication Review: Declined at this time per patient preference Discharge Instructions: Your Discharge Instructions / After Visit Summary (AVS) are important in guiding you through the recovery process. Do you have any questions related to your discharge instructions? No Home Care: Were you discharged with home care? No Equipment: Do you have all the necessary equipment and supplies needed at your home? Yes The patient verbalizes understanding the use of the equipment and supplies Social: Your mental health is as important to us as your physical health. Would you mind answering a few questions on this topic? Yes On the Storyboard review: Food Insecurity, Transportation, Depression, Housing, and Financial Strain: Complete any SDOHs, listed above, if not addressed in the past 3 months. If all SDOHs, listed above, have been addressed within the last 3 months, confirm responses and update any SDOHs that have changed. Action Taken: No needs verbalized. No action required. Follow-Up Appointment: [Appointment / TCM Follow-up within 14 days] I would like to help you schedule a hospital follow-up virtual or telephone visit with your PCP. This is a great way for you to connect with your provider to ensure you have safely transitioned home. If you are agreeable, I will send your request to a receptionist scheduler who will contact and assist you with that appointment. This will give you an opportunity to ask any questions or address any concerns you may have with your PCP. Inform the patient that if they have any questions or concerns prior to that appointment, to call their PCP's office right away. Appointment Action: No action required; patient already has appointment scheduled. Education N/A Targets addressed / completed during outreach: Contact patient within two (2) business days Outreach Outcome: Enrolled in TCM Care Management partners utilized: N/A Kirstin Reyes RN October 24, 2024 1:55 PM [facility] 10-24-2024 History of Present illness Narrative Transition Care Management (TCM) Initial Outreach PCP Update / Actionable Items Eligible for tcm through 11/01/24 HRTIC TCM Home Visit Referral Source of Stratification: [facility] Hospital Admission Status: Discharged Readmission Risk Score: n/a Patient's zip code: [address] Is zip code within program service area: No Patient meets program referral criteria: No Patient does not qualify for High Risk TCM Home Visit program due to: Patient's zip code is not located within program service area Disposition: Patient does not qualify for HRTIC, will provide TCM outreach follow-up for 30-days Patient Source: [id number] (OON) Discharge Outreach Summary: Patient states is feeling better, but weak Cough is better, phlegm light yellow Sob sometimes on exertion, a little wheezing, nothing like it was Denies CP, fever/chills, n/v Appetite decrease, food taste bland, get full fast are hydrating and drinking protein shakes Voiding and bm without difficulty, BM 10/23/24 Ambulating up ad antoine up with cane Denies questions, concerns regarding medications, self care , no issues, stable Patient discharged from [facility], Discharge date: 10/18/24 Admitted for: Cough , A-Fib with RVR, sob, chest pain, palpitations, shortness of breath. Readmission Risk: n/a Value-Based Contract: Michelle RAY Contact: Contact made with patient: Yes Hi, my name is Kirstin Reyes RN and I am calling from the [facility] on behalf of your Primary Care Provider, Atul Harvey DO. I understand you were recently in the hospital, so I am calling to check in with you to ensure you are feeling well now that you are home. May I ask you a few questions related to your hospital stay and well-being? Yes Spoke to: Patient Validation: Validated the person spoken to is actively involved in the patient's care. The patient was identified by Name and Date of . Symptoms: Are you feeling about the same, better or worse since leaving the hospital? Better Medications: Do you have any questions about taking your medications, including which medications you should be on, or do you need refills on your medications? No Medication Review: Declined at this time per patient preference Discharge Instructions: Your Discharge Instructions / After Visit Summary (AVS) are important in guiding you through the recovery process. Do you have any questions related to your discharge instructions? No Home Care: Were you discharged with home care? No Equipment: Do you have all the necessary equipment and supplies needed at your home? Yes The patient verbalizes understanding the use of the equipment and supplies Social: Your mental health is as important to us as your physical health. Would you mind answering a few questions on this topic? Yes On the Storyboard review: Food Insecurity, Transportation, Depression, Housing, and Financial Strain: Complete any SDOHs, listed above, if not addressed in the past 3 months. If all SDOHs, listed above, have been addressed within the last 3 months, confirm responses and update any SDOHs that have changed. Action Taken: No needs verbalized. No action required. Follow-Up Appointment: [Appointment / TCM Follow-up within 14 days] I would like to help you schedule a hospital follow-up virtual or telephone visit with your PCP. This is a great way for you to connect with your provider to ensure you have safely transitioned home. If you are agreeable, I will send your request to a receptionist scheduler who will contact and assist you with that appointment. This will give you an opportunity to ask any questions or address any concerns you may have with your PCP. Inform the patient that if they have any questions or concerns prior to that appointment, to call their PCP's office right away. Appointment Action: No action required; patient already has appointment scheduled. Education N/A Targets addressed / completed during outreach: Contact patient within two (2) business days Outreach Outcome: Enrolled in TCM Care Management partners utilized: N/A Kirstin Reyes RN October 24, 2024 1:55 PM documented in this encounter [facility] 10-24-2024 Note Patient Outreach (AM BC) MARY CRANE ([id number]) 1940 F TXT Date Time Provider Department 10/24/24 [place]IN REYES [facility] [place] your visit today, we recorded the following information about you: Kirstin Reyes RN 10/24/2024 2:01 PM Signed Transition Care Management (TCM) Initial Outreach PCP Update / Actionable Items Eligible for tcm through [facility]01[facility] Referral Source of Stratification: [facility] Admission Status: Discharged Readmission Risk Score: n/a Patient's zip code: [address] Is zip code within program service area: No Patient meets program referral criteria: No Patient does not qualify for High Risk TCM Home Visit program due to: Patient's zip code is not located within program service area Disposition: Patient does not qualify for HRTIC, will provide TCM outreach follow-up for 30-days Patient Source: [id number] (OON) Discharge Outreach Summary: Patient states is feeling better, but weak Cough is better, phlegm light yellow Sob sometimes on exertion, a little wheezing, nothing like it was Denies CP, fever/chills, n/v Appetite decrease, food taste bland, get full fast are hydrating and drinking protein shakes Voiding and bm without difficulty, BM 10/23/24 Ambulating up ad antoine up with cane Denies questions, concerns regarding medications, self care , no issues, stable Patient discharged from [facility], Discharge date: 10/18/24 Admitted for: Cough , A-Fib with RVR, sob, chest pain, palpitations, shortness of breath. Readmission Risk: n/a Value-Based Contract: Michelle RAY Contact: Contact made with patient: Yes Hi, my name is Kirstin Reyes RN and I am calling from the [facility] on behalf of your Primary Care Provider, Atul Harvey DO. I understand you were recently in the hospital, so I am calling to check in with you to ensure you are feeling well now that you are home. May I ask you a few questions related to your hospital stay and well-being? Yes Spoke to: Patient Validation: Validated the person spoken to is actively involved in the patient's care. The patient was identified by Name and Date of . Symptoms: Are you feeling about the same, better or worse since leaving the hospital? Better Medications: Do you have any questions about taking your medications, including which medications you should be on, or do you need refills on your medications? No Medication Review: Declined at this time per patient preference Discharge Instructions: Your Discharge Instructions / After Visit Summary (AVS) are important in guiding you through the recovery process. Do you have any questions related to your discharge instructions? No Home Care: Were you discharged with home care? No Equipment: Do you have all the necessary equipment and supplies needed at your home? Yes The patient verbalizes understanding the use of the equipment and supplies Social: Your mental health is as important to us as your physical health. Would you mind answering a few questions on this topic? Yes On the Storyboard review: Food Insecurity, Transportation, Depression, Housing, and Financial Strain: Complete any SDOHs, listed above, if not addressed in the past 3 months. If all SDOHs, listed above, have been addressed within the last 3 months, confirm responses and update any SDOHs that have changed. Action Taken: No needs verbalized. No action required. Follow-Up Appointment: [Appointment / TCM Follow-up within 14 days] I would like to help you schedule a hospital follow-up virtual or telephone visit with your PCP. This is a great way for you to connect with your provider to ensure you have safely transitioned home. If you are agreeable, I will send your request to a receptionist scheduler who will contact and assist you with that appointment. This will give you an opportunity to ask any questions or address any concerns you may have with your PCP. Inform the patient that if they have any questions or concerns prior to that appointment, to call their PCP's office right away. Appointment Action: No action required; patient already has appointment scheduled. Education N/A Targets addressed / completed during outreach: Contact patient within two (2) business days Outreach Outcome: Enrolled in TCM Care Management partners utilized: N/A Kirstin Reyes RN October 24, 2024 1:55 PM Allergies As of Date: 10/24/2024 Noted Allergy Reaction FLOXIN (OFLOXACIN) 09/10/2005 10 - Anaphylaxis BUMEX (BUMETANIDE) 09/10/2005 5 - Intolerance HYDROCHLOROTHIAZIDE 09/10/2005 2 - Rash 5 - Intolerance Comments: leucocytoclastic vasculitis KEFLEX (CEPHALEXIN) 09/10/2005 2 - Rash NAPROXEN 09/10/2005 2 - Rash 4 - Hives NORVASC (AMLODIPINE BESYLATE) 09/10/2005 5 - Intolerance PENICILLINS 09/10/2005 5 - Intolerance (more content not included)... [facility] 10-20-2024 Telephone encounter Note The patient has been identified by name and date of : Yes Caregiver verified no other encounters exist for this prescription request: Yes Caregiver confirmed with patient/requestor that no other refills are due, in the near future, with this provider at this time: Yes The last office visit in the department: 08/22/2024 Does the patient have a future office visit with this provider/department: 10/25/2024 Requested Prescriptions Pending Prescriptions Disp Refills furosemide (LASIX) 40 mg tablet 90 tablet 3 Sig: Take 1 tablet by mouth once daily. Patient doesn't have enough to get to appointment next week. Joslyn Turk RN October 20, 2024 8:07 AM [facility] 10-20-2024 Miscellaneous Notes The patient has been identified by name and date of : Yes Caregiver verified no other encounters exist for this prescription request: Yes Caregiver confirmed with patient/requestor that no other refills are due, in the near future, with this provider at this time: Yes The last office visit in the department: 08/22/2024 Does the patient have a future office visit with this provider/department: 10/25/2024 Requested Prescriptions Pending Prescriptions Disp Refills furosemide (LASIX) 40 mg tablet 90 tablet 3 Sig: Take 1 tablet by mouth once daily. Patient doesn't have enough to get to appointment next week. Joslyn Turk RN October 20, 2024 8:07 AM documented in this encounter [facility] 10-18-2024 Note [facility] Medical Records Department [address] [place] [address] Discharge Summary 10/18/24829 MR#: [id number] Acct: [id number] Name: MARY CRANE Rep #: [id number] : 1940 84 From: Rasheed Ledezma MD PCP: Dr. Atul Harvey DO Status:ADM IN Location: [facility] [id number] Providers Date of Admission: 10/12/24 Date of Discharge: 10/18/24 Primary Care Physician: Dr. Atul Harvey DO Consultations 10/16/24 09:36 Consult: Cardiology Routine Consulting Provider: Mario Hagen Reason for Consult: afib EMERGENT Consult: No MD Notified: Yes Date Notified: 10/16/24 Time Notified: 09:36 Method of Notification: Text Reason For Visit: RSV, AFIB RVR Diagnosis Discharge Diagnosis (1) Atrial fibrillation with RVR: Status: Acute Code(s): I48.91 - Unspecified atrial fibrillation (2) RSV (respiratory syncytial virus infection): Status: Acute Code(s): B33.8 - Other specified viral diseases Qualifiers: RSV infection type: unspecified Qualified Code(s): B33.8 - Other specified viral diseases (3) Hypertension: Status: Chronic Code(s): I10 - Essential (primary) hypertension Qualifiers: Hypertension type: primary hypertension Qualified Code(s): I10 - Essential (primary) hypertension Plan Patient is an 84-year-old lady who was sent from an urgent care center in the ED after she was found to be in A-fib with RVR. She had presented to the urgent care center for evaluation of cough. RSV assay came back positive 1. New onset atrial fibrillation with rapid ventricular response ??? Patient was started on Cardizem drip admitted to monitored bed titrated to keep heart rate less than 100. As part of patient's evaluation serial cardiac enzymes 2D echo ordered. Patient was weaned off the Cardizem drip and started on scheduled Cardizem. With patient [id number] score being 3 patient was started on systemic anticoagulation initially with Lovenox switched to apixaban ??? 10/14/2024; patient Cardizem drip had to be reintroduced after she went back into A-fib with RVR. Heart rate still remains elevated. Patient is currently on maximum dose of Cardizem. ??? 10/15/2024; Cardizem drip discontinued added Lopressor to patient treatment regimen ??? 10/16/2024 Patient had been started on beta-blockers the day prior. With patient heart rate still remains elevated consult was placed to cardiology ??? 10/17/2024;Seen and evaluated by cardiology amiodarone added to patient rate controlling agent with discontinuation of diltiazem ??? 10/18/2024; patient heart rate control did improve following adjustment of therapy by cardiology. Plan is for patient to follow-up with primary care 2. RSV infection ??? Treated symptomatically. With patient having active wheezing inhaled budesonide added to patient's treatment regimen ??? 10/13/2024; patient still remains symptomatic with high-grade fevers. ??? 10/15/2024; continues to improve with regards to his symptoms 3. Hypertension ??? Blood pressure controlled, home medications continued with dose adjustment as needed 4. Gout ??? Patient is on allopurinol continue 5. Hypothyroidism ??? Patient is on levothyroxine home dose continued 6. Rheumatoid arthritis ??? Patient not on any Biologics however symptoms remain stable 7. DVT prophylaxis ??? Patient was started on therapeutic Lovenox as part of management of her A-fib Time spent in the patient's overall evaluation,decision-making process, review of diagnostic data, adjustment of management, discussion with other providers, nursing nursing and ancillary staff involved in patient's care documentation, 36 Minutes Medications at Discharge Home Medications allopurinol 100 mg tablet 100 mg PO DAILYCM gout 11/12/14 furosemide 40 mg tablet 40 mg PO DAILY 11/12/14 cholecalciferol (vitamin D3) 1,250 mcg (50,000 unit) capsule 1,250 mcg PO QWEEK supplement 10/12/24 duloxetine 30 mg capsule,delayed release 30 mg PO QHS mood 10/12/24 folic acid 1 mg tablet 2 mg PO DAILY supplement 10/12/24 levothyroxine 25 mcg tablet 25 mcg PO DAILY disorder of thyroid gland 10/12/24 potassium chloride 10 mEq tablet,extended release(part/cryst) (Klor-Con M) 10 meq PO BID 10/12/24 rosuvastatin 10 mg tablet 10 mg PO DAILY cholesterol 10/12/24 apremilast 30 mg tablet (Otezla) 30 mg PO BID psoriasis 10/13/24 famotidine 20 mg tablet (Acid Controller) 20 mg PO DAILY gerd 10/13/24 mecobalamin (vitamin B12) 1,000 mcg chewable tablet (B12 Active) 1,000 mcg PO DAILY supplement 10/13/24 vit C 250 mg-vit E 90 mg-zinc 40 mg-copper 1 qa-gysdht-dmfosf capsule (PreserVision AREDS-2) 1 tab PO BID supplement 10/13/24 acetaminophen 325 mg tablet 650 mg (2 x 325 mg) PO Q6H PRN PRN Pain 1-10 Or Fever>100.7 #0 tabs 10/18/24 amiodarone 200 mg tablet 200 mg PO BID 60 days #120 tabs 10/18/24 apixaban 5 mg tablet (Eliquis) 5 mg PO BID #60 tabs 10/18/24 g (more content not included)... [facility] 10-12-2024 Evaluation note Diagnosis Onset Date Resolution Hypertension chronic October 12, 2024 4:36pm Acute dyspnea resolved October 4:36pm Atrial fibrillation with RVR resolved October 12 4:36pm RSV (respiratory syncytial virus infection) resolved October 12 4:36pm RSV bronchiolitis resolved October 12, 2024 4:36pm [facility] Work Phone: [phone]) 615-344601-01-2025 NoteHNO ID: [id number] Author: RICHARD PINEDA APRN.GROCERY BAGGER Service: ? Author Type: Nurse Practitioner Type: Progress Notes Filed: 10/12/2024 13:08 Note Text: Subjective HPI Mary Crane is a 84 year old female who presents with chest congestion, shortness of breath, wheezing, cough and sore throat for the past 2 days. She has a fever today of 103 degrees at home. She has not taken any medication today. Review of Systems Constitutional: Positive for chills, fever and malaise/fatigue. HENT: Positive for congestion and sore throat. Negative for ear pain. Respiratory: Positive for cough, sputum production, shortness of breath and wheezing. Cardiovascular: Negative for chest pain. BP 122/80 Pulse (!) 132 Temp (!) 38.9 ?C (102 ?F) Resp 30 Wt 71.2 kg (156 lb 15.5 oz) SpO2 95% BMI 27.81 kg/m? PAST MEDICAL HISTORY Diagnosis Date Advance care planning 04/01/2022 Daughter Noemy Arrhythmia Benign neoplasm of colon Chronic kidney disease 02/09/2015 Diverticulosis of colon (without mention of hemorrhage) IFG (impaired fasting glucose) 03/2022 Incisional hernia 07/06/2015 Internal hemorrhoids without mention of complication Rheumatoid arthritis(714.0) Rheumatoid arthritis(714.0) Sicca syndrome (HCC) Unspecified essential hypertension PAST SURGICAL HISTORY Procedure Laterality Date CATARACT EXTRACTION HX 10/12/2004 COLONOSCOPY FLX DX W/COLLJ SPEC WHEN PFRMD 09/30/2005 Colonoscopy COLONOSCOPY FLX DX W/COLLJ SPEC WHEN PFRMD 07/28/2016 Colonoscopy COLONOSCOPY SCREENING 09/30/2022 multiple adenomatous polyps, repeat in 3 yrs ESOPHAGOGASTRODUODENOSCOPY TRANSORAL DIAGNOSTIC 12/21/2014 EGD LAPAROSCOPY SURG CHOLECYSTECTOMY 02/20/2015 NEUROPLASTY AND/TRANSPOS MEDIAN NRV CARPAL TUNNE 02/12/2006 Carpal tunnel decomp Left NEUROPLASTY AND/TRANSPOS MEDIAN NRV CARPAL TUNNE 02/27/2006 Carpal tunnel decomp Right PAST SURGICAL HISTORY OF 10/12/2001 hemorrhoidectomy , bladder, and umbilical hernia repair PAST SURGICAL HISTORY OF 08/12/2006 bladder suspension REPAIR FIRST ABDOMINAL WALL HERNIA 07/06/2015 with mesh VAGINAL HYSTERECTOMY UTERUS 250 GM/< 10/12/1983 Hysterectomy, vaginal and bladder tacked up ALLERGIES Floxin [Ofloxacin], Bumex [Bumetanide], Hydrochlorothiazide, Keflex [Cephalexin], Naproxen, Norvasc [Amlodipine Besylate], Penicillins, Proctosol [Hydrocortisone Acetate], Sulfa (Sulfonamide Antibiotics), Colchicine, and Minoxidil MEDICATIONS cholecalciferol, Vitamin D3, (VITAMIN D3) 1,250 mcg (50,000 unit) cap capsule Take 1 capsule by mouth one time a week. atenolol (TENORMIN) 25 mg tablet Take 1 tablet by mouth two times a day. cloNIDine HCl (CATAPRES) 0.2 mg tablet Take 1 tablet by mouth two times a day. losartan (COZAAR) 100 mg tablet Take 1 tablet by mouth once daily. potassium chloride ER (KLOR-CON M10) 10 mEq tablet Take 1 tablet by mouth two times a day. rosuvastatin (CRESTOR) 10 mg tablet Take 1 tablet by mouth once daily. nystatin (NYSTOP) powder Apply 1 application to affected area four times a day as needed. Yeast infection/rash in groin and under breasts ketoconazole (NIZORAL) 2 % cream Apply to affected area two times a day. (Patient taking differently: Apply to affected area two times a day. PRN) levothyroxine (LEVOXYL) 25 mcg tablet Take 1 tablet by mouth once daily. Take on empty stomach. For Thyroid folic acid 1 mg tablet Take 2 tablets by mouth once daily. triamcinolone acetonide (KENALOG) 0.1 % cream Apply 1 application to affected area two times a day as needed (rash). Apply sparingly to area for rash/itching. amLODIPine (NORVASC) 2.5 mg tablet Take 1 tablet by mouth once daily. allopurinol (ZYLOPRIM) 100 mg tablet Take 1 tablet by mouth once daily. Cholecalciferol, Vitamin D3, 50 mcg (2,000 unit) cap Take 1 capsule by mouth once daily. dicyclomine (BENTYL) 10 mg capsule Take 1 capsule by mouth before meals and at bedtime. For diarrhea or abdominal cramping furosemide (LASIX) 40 mg tablet Take 1 tablet by mouth once daily. cyanocobalamin (VITAMIN B-12) 1,000 mcg tab Take 1,000 mcg by mouth once daily. triamcinolone acetonide (KENALOG) 0.1 % cream Apply 1 application to affected area twice daily. On rash, Apply sparingly to area for rash/itching. (Patient taking differently: Apply 1 application to affected area two times a day. On rash, Apply sparingly to area for rash/itching. Uses as needed) vit A/vit C/vit E/zinc/copper (OCUVITE PRESERVISION ORAL) Take by mouth twice daily. apremilast (OTEZLA) 30 mg tablet Take 30 mg by mouth twice daily. hydrocortisone probutate 0.1 % crea Apply to affected area once daily as needed. loratadine (CLARITIN) 10 mg tablet Take 10 mg by mouth once daily. Takes daily as needed acetaminophen (TYLENOL) 325 mg tablet Take 650 mg by mouth every 6 hours as needed. FAMILY HISTORY Problem Relation Age of Onset Diabetes Mother Hypertension Mother Heart Father (more content not included)...[facility]01-01-2025 History of Present illness Narrative* Richard Pineda APRN.GROCERY BAGGER - 10/12/2024 1:05 PM EST Subjective HPI Mary Crane is a 84 year old female who presents with chest congestion, shortness of breath, wheezing, cough and sore throat for the past 2 days. She has a fever today of 103 degrees at home. She has not taken any medication today. Review of Systems Constitutional: Positive for chills, fever and malaise/fatigue. HENT: Positive for congestion and sore throat. Negative for ear pain. Respiratory: Positive for cough, sputum production, shortness of breath and wheezing. Cardiovascular: Negative for chest pain. BP 122/80 Pulse (!) 132 Temp (!) 38.9 C (102 F) Resp 30 Wt 71.2 kg (156 lb 15.5 oz) SpO2 95% BMI 27.81 kg/m PAST MEDICAL HISTORY Diagnosis Date Advance care planning 04/01/2022 Daughter Noemy Arrhythmia Benign neoplasm of colon Chronic kidney disease 02/09/2015 Diverticulosis of colon (without mention of hemorrhage) IFG (impaired fasting glucose) 03/2022 Incisional hernia 07/06/2015 Internal hemorrhoids without mention of complication Rheumatoid arthritis(714.0) Rheumatoid arthritis(714.0) Sicca syndrome (HCC) Unspecified essential hypertension PAST SURGICAL HISTORY Procedure Laterality Date CATARACT EXTRACTION HX 10/12/2004 COLONOSCOPY FLX DX W/COLLJ SPEC WHEN PFRMD 09/30/2005 Colonoscopy COLONOSCOPY FLX DX W/COLLJ SPEC WHEN PFRMD 07/28/2016 Colonoscopy COLONOSCOPY SCREENING 09/30/2022 multiple adenomatous polyps, repeat in 3 yrs ESOPHAGOGASTRODUODENOSCOPY TRANSORAL DIAGNOSTIC 12/21/2014 EGD LAPAROSCOPY SURG CHOLECYSTECTOMY 02/20/2015 NEUROPLASTY &/TRANSPOS MEDIAN NRV CARPAL TUNNE 02/12/2006 Carpal tunnel decomp Left NEUROPLASTY &/TRANSPOS MEDIAN NRV CARPAL TUNNE 02/27/2006 Carpal tunnel decomp Right PAST SURGICAL HISTORY OF 10/12/2001 hemorrhoidectomy , bladder, and umbilical hernia repair PAST SURGICAL HISTORY OF 08/12/2006 bladder suspension REPAIR FIRST ABDOMINAL WALL HERNIA 07/06/2015 with mesh VAGINAL HYSTERECTOMY UTERUS 250 GM/< 10/12/1983 Hysterectomy, vaginal and bladder tacked up ALLERGIES Floxin [Ofloxacin], Bumex [Bumetanide], Hydrochlorothiazide, Keflex [Cephalexin], Naproxen, Norvasc [Amlodipine Besylate], Penicillins, Proctosol [Hydrocortisone Acetate], Sulfa (Sulfonamide Antibiotics), Colchicine, and Minoxidil MEDICATIONS cholecalciferol, Vitamin D3, (VITAMIN D3) 1,250 mcg (50,000 unit) cap capsule Take 1 capsule by mouth one time a week. atenolol (TENORMIN) 25 mg tablet Take 1 tablet by mouth two times a day. cloNIDine HCl (CATAPRES) 0.2 mg tablet Take 1 tablet by mouth two times a day. losartan (COZAAR) 100 mg tablet Take 1 tablet by mouth once daily. potassium chloride ER (KLOR-CON M10) 10 mEq tablet Take 1 tablet by mouth two times a day. rosuvastatin (CRESTOR) 10 mg tablet Take 1 tablet by mouth once daily. nystatin (NYSTOP) powder Apply 1 application to affected area four times a day as needed. Yeast infection/rash in groin and under breasts ketoconazole (NIZORAL) 2 % cream Apply to affected area two times a day. (Patient taking differently: Apply to affected area two times a day. PRN) levothyroxine (LEVOXYL) 25 mcg tablet Take 1 tablet by mouth once daily. Take on empty stomach. ForThyroid folic acid 1 mg tablet Take 2 tablets by mouth once daily. triamcinolone acetonide (KENALOG) 0.1 % cream Apply 1 application to affected area two times a day as needed (rash). Apply sparingly to area for rash/itching. amLODIPine (NORVASC) 2.5 mg tablet Take 1 tablet by mouth once daily. allopurinol (ZYLOPRIM) 100 mg tablet Take 1 tablet by mouth once daily. Cholecalciferol, Vitamin D3, 50 mcg (2,000 unit) cap Take 1 capsule by mouth once daily. dicyclomine (BENTYL) 10 mg capsule Take 1 capsule by mouth before meals and at bedtime. For diarrhea or abdominal cramping furosemide (LASIX) 40 mg tablet Take 1 tablet by mouth once daily. cyanocobalamin (VITAMIN B-12) 1,000 mcg tab Take 1,000 mcg by mouth once daily. triamcinolone acetonide (KENALOG) 0.1 % cream Apply 1 application to affected area twice daily. On rash, Apply sparingly to area for rash/itching. (Patient taking differently: Apply 1 application to affected area two times a day. On rash, Apply sparingly to area for rash/itching. Uses as needed) vit A/vit C/vit E/zinc/copper (OCUVITE PRESERVISION ORAL) Take by mouth twice daily. apremilast (OTEZLA) 30 mg tablet Take 30 mg by mouth twice daily. hydrocortisone probutate 0.1 % crea Apply to affected area once daily as needed. loratadine (CLARITIN) 10 mg tablet Take 10 mg by mouth once daily. Takes daily as needed acetaminophen (TYLENOL) 325 mg tablet Take 650 mg by mouth every 6 hours as needed. FAMILY HISTORY Problem Relation Age of Onset Diabetes Mother Hypertension Mother Heart Father Diabetes Sister No Known Problems Sister No Known Problems Brother Heart Brother No Known Problems Brother Social History Tobacco Use Smoking status: Never Smokeless tobacco: Never Vaping Use Vaping status: Never Used Substance Use Topics Alcohol use: No Drug use: No Objective Physical Exam Vitals and nursing note reviewed. HENT: Right Ear: Tympanic membrane, ear canal and external ear normal. Left Ear: Tympanic membrane, ear canal and external ear normal. Nose: Nose normal. Mouth/Throat: Pharynx: Uvula midline. No oropharyngeal exudate or posterior oropharyngeal erythema. Cardiovascular: Rate and Rhythm: Normal rate and regular rhythm. Heart sounds: Normal heart sounds. Pulmonary: Effort: Pulmonary effort is normal. No respiratory distress. Breath sounds: Examination of the right-upper field reveals wheezing. Examination of the left-upperfield reveals wheezing. Examination of the right- lower field reveals wheezing and rales. Examination of the left-lower field reveals wheezing and rales. Wheezing and rales present. Musculoskeletal: Cervical back: Neck supple. Lymphadenopathy: Cervical: No cervical adenopathy. Skin: General: Skin is warm and dry. Findings: No erythema or rash. Neurological: Mental Status: She is alert. ASSESSMENT/PLAN: 1. SOB (shortness of breath) - ICD9: 786.05, ICD10: R06.02 (primary diagnosis) 2. Fever, unspecified fever cause - ICD9: 780.60, ICD10: R50.9 - due to tachypnea, shortness of breath and high suspicion of pneumonia, I recommended patient be evaluated in ER where she can have chest xray and other diagnostics and have immediate treatment which could potentially include hospitalization. She is agreeable. Her daughter will take her by [employer]. Richard Pineda APRN.FELICIA [facility] Telephone encounter Note * Telephone Encounter - Camila Finley RN - 10/11/2024 11:35 AM EST Patient calls and states that she is not feeling well for the past 2 days. Patient reports that shehas had headache, cough, and lots of yellow mucous. Patient is asking if provider can call something in for this. Patient is advised that she needs to be seen by a provider for this. Patient advised that she can come into express care to be evaluated. Patient voiced understanding. Camila iFnley RN [facility]12-31-2024 Miscellaneous Notes* Telephone Encounter - Camila Finley RN - 10/11/2024 11:35 AM EST Patient calls and states that she is not feeling well for the past 2 days. Patient reports that shehas had headache, cough, and lots of yellow mucous. Patient is asking if provider can call something in for this. Patient is advised that she needs to be seen by a provider for this. Patient advised that she can come into express care to be evaluated. Patient voiced understanding. Camila Finley RN documented in this encounterC[facility]12-[facility]24 Telephone encounter Note * Telephone Encounter - Lulú Tang MA - 10/07/2024 8:16 AM EST Pt informed Lulú Tang MA [facility]12-27-2024 Miscellaneous Notes* Telephone Encounter - Lulú Tang MA - 10/07/2024 8:16 AM EST Pt informed Lulú Tang MA * Telephone Encounter - Atul Harvey DO - 10/07/2024 7:05 AM EST The following approved medication requests have been transmitted electronically. Requested Prescriptions Signed Prescriptions Disp Refills cholecalciferol, Vitamin D3, (VITAMIN D3) 1,250 mcg (50,000 unit) cap capsule 12 capsule 2 Sig: Take 1 capsule by mouth one time a week. Authorizing Provider: ATUL HARVEY DO * Telephone Encounter - Joslyn Turk RN - 10/06/2024 9:49 AM EST Patient calls to ask if prescription for Vitamin D 50,000 units has been sent to the pharmacy yet. Most recent Vitamin D order is for 2,000 units daily. Patient reports that daughter told her Dr. Harvey wanted her to now take the 50,000 unit dose weekly. Pended. Please review and advise. Joslyn Turk RN documented in this encounterC[facility]12-27-2024 Telephone encounter Note * Telephone Encounter - Atul Harvey DO - 10/07/2024 7:05 AM EST The following approved medication requests have been transmitted electronically. Requested Prescriptions Signed Prescriptions Disp Refills cholecalciferol, Vitamin D3, (VITAMIN D3) 1,250 mcg (50,000 unit) cap capsule 12 capsule 2 Sig: Take 1 capsule by mouth one time a week. Authorizing Provider: ATLU HARVEY DO [facility]12-26-2024 Telephone encounter Note* Telephone Encounter - Joslyn Turk RN - 10/06/2024 9:49 AM EST Patient calls to ask if prescription for Vitamin D 50,000 units has been sent to the pharmacy yet. Most recent Vitamin D order is for 2,000 units daily. Patient reports that daughter told her Dr. Harvey wanted her to now take the 50,000 unit dose weekly. Pended. Please review and advise. Joslyn Turk RN [facility]12-09-2024 NoteHNO ID: [id number] Author: ELLEN VILLAR MA Service: ? Author Type: Continuing Education Director Type: Progress Notes Filed: 10/12/2024 16:32 Note Text: PT ASSESSMENT - CASTING ROOM Mary presents for Application of brace. Applied Actimove CMC brace size small to Left hand Patient has been instructed in Care and proper application of brace. Patient verbalized understanding. Ellen Villar [facility]12-09-2024 History of Present illness Narrative* Ellen Villar MA - 09/19/2024 3:50 PM EST PT ASSESSMENT - CASTING ROOM Mary presents for Application of brace. Applied Actimove CMC brace size small to Left hand Patient has been instructed in Care and proper application of brace. Patient verbalized understanding. Ellen Villar MA * Phuc Marti MD - 09/19/2024 3:06 PM EST Phuc Marti MD Department of Orthopaedics Orthopaedics [address] [facility] [address] Dept: [phone] Dept September 19, 2024 CHIEF COMPLAINT: New and Pain of the Left Wrist HPI Patient here today for left wrist pain present for a few months. She states that she gets sharppain when she tries to lift anything with weight. She is left hand dominant. X-ray completed on 08/22/2024. ASSESSMENT: M18.12 Primary osteoarthritis of first carpometacarpal joint of left hand (primary encounter diagnosis) M25.532 Left wrist pain PLAN: we discussed the treatment options for CMC OA. She'll start with a brace for now. FOLLOW UP INSTRUCTIONS: As needed. OBJECTIVE: Ms. Mary Crane is a pleasant 84 year old in no apparent distress. Gen:There were no vitals taken for this visit. nl development, non obese, no deformities ENT: Normocephalic, normal hearing, moist mucosa CV: Pulses:Radial= 2+ and symmetric, capillary refill < 2 secs, no peripheral edema/varicosities Skin: no rash, bruising or lesions. Good turgor. Psych: cooperative and appropriate, alert and oriented x 3, good mood and affect. Musculoskeletal: Mild swelling at basal joint of the thumb consistent with OA. Crepitus on grind testing. IMAGING: * * *Final Report* * * DATE OF EXAM: Aug 22 2024 11:47AM WRX [id number] - XR WRIST 3V PA/LAT/OBL LT / PROCEDURE REASON: Left wrist pain * * * * Physician Interpretation * * * * EXAMINATION: XR WRIST 3V PA/LAT/OBL LT HISTORY: PT STATES LEFT WRIST PAIN RA Left wrist pain . TECHNIQUE: XR WRIST 3V PA/LAT/OBL LT Laterality: LEFT Number of different views (projections): 3 M: XB_1 COMPARISON: RESULT: Advanced first CMC degenerative changes and mild degenerative change at the triscaphe joint. Mild soft tissue swelling around the left wrist. No acute fracture or dislocation. There are no bony erosions. Supporting Subjective Information Below: Past Medical History: PAST MEDICAL HISTORY Diagnosis Date Advance care planning 04/01/2022 Daughter Noemy Arrhythmia Benign neoplasm of colon Chronic kidney disease 02/09/2015 Diverticulosis of colon (without mention of hemorrhage) IFG (impaired fasting glucose) 03/2022 Incisional hernia 07/06/2015 Internal hemorrhoids without mention of complication Rheumatoid arthritis(714.0) Rheumatoid arthritis(714.0) Sicca syndrome (HCC) Unspecified essential hypertension Past Surgical History: PAST SURGICAL HISTORY Procedure Laterality Date CATARACT EXTRACTION HX 10/12/2004 COLONOSCOPY FLX DX W/COLLJ SPEC WHEN PFRMD 09/30/2005 Colonoscopy COLONOSCOPY FLX DX W/COLLJ SPEC WHEN PFRMD 07/28/2016 Colonoscopy COLONOSCOPY SCREENING 09/30/2022 multiple adenomatous polyps, repeat in 3 yrs ESOPHAGOGASTRODUODENOSCOPY TRANSORAL DIAGNOSTIC 12/21/2014 EGD LAPAROSCOPY SURG CHOLECYSTECTOMY 02/20/2015 NEUROPLASTY &/TRANSPOS MEDIAN NRV CARPAL TUNNE 02/12/2006 Carpal tunnel decomp Left NEUROPLASTY &/TRANSPOS MEDIAN NRV CARPAL TUNNE 02/27/2006 Carpal tunnel decomp Right PAST SURGICAL HISTORY OF 10/12/2001 hemorrhoidectomy , bladder, and umbilical hernia repair PAST SURGICAL HISTORY OF 08/12/2006 bladder suspension REPAIR FIRST ABDOMINAL WALL HERNIA 07/06/2015 with mesh VAGINAL HYSTERECTOMY UTERUS 250 GM/< 10/12/1983 Hysterectomy, vaginal and bladder tacked up Family History: FAMILY HISTORY Problem Relation Age of Onset Diabetes Mother Hypertension Mother Heart Father Diabetes Sister No Known Problems Sister No Known Problems Brother Heart Brother No Known Problems Brother Social History: Social History Tobacco Use Smoking status: Never Smokeless tobacco: Never Vaping Use Vaping status: Never Used Substance Use Topics Alcohol use: No Drug use: No Medications: Current Outpatient Medications Medication Sig atenolol (TENORMIN) 25 mg tablet Take 1 tablet by mouth two times a day. cloNIDine HCl (CATAPRES) 0.2 mg tablet Take 1 tablet by mouth two times a day. losartan (COZAAR) 100 mg tablet Take 1 tablet by mouth once daily. potassium chloride ER (KLOR-CON M10) 10 mEq tablet Take 1 tablet by mouth two times a day. rosuvastatin (CRESTOR) 10 mg tablet Take 1 tablet by mouth once daily. levothyroxine (LEVOXYL) 25 mcg tablet Take 1 tablet by mouth once daily. Take on empty stomach. ForThyroid folic acid 1 mg tablet Take 2 tablets by mouth once daily. amLODIPine (NORVASC) 2.5 mg tablet Take 1 tablet by mouth once daily. allopurinol (ZYLOPRIM) 100 mg tablet Take 1 tablet by mouth once daily. Cholecalciferol, Vitamin D3, 50 mcg (2,000 unit) cap Take 1 capsule by mouth once daily. dicyclomine (BENTYL) 10 mg capsule Take 1 capsule by mouth before meals and at bedtime. For diarrhea or abdominal cramping furosemide (LASIX) 40 mg tablet Take 1 tablet by mouth once daily. cyanocobalamin (VITAMIN B-12) 1,000 mcg tab Take 1,000 mcg by mouth once daily. vit A/vit C/vit E/zinc/copper (OCUVITE PRESERVISION ORAL) Take by mouth twice daily. apremilast (OTEZLA) 30 mg tablet Take 30 mg by mouth twice daily. loratadine (CLARITIN) 10 mg tablet Take 10 mg by mouth once daily. Takes daily as needed acetaminophen (TYLENOL) 325 mg tablet Take 650 mg by mouth every 6 hours as needed. nystatin (NYSTOP) powder Apply 1 application to affected area four times a day as needed. Yeast infection/rash in groin and under breasts ketoconazole (NIZORAL) 2 % cream Apply to affected area two times a day. (Patient taking differently: Apply to affected area two times a day. PRN) triamcinolone acetonide (KENALOG) 0.1 % cream Apply 1 application to affected area two times a day as needed (rash). Apply sparingly to area for rash/itching. triamcinolone acetonide (KENALOG) 0.1 % cream Apply 1 application to affected area twice daily. On rash, Apply sparingly to area for rash/itching. (Patient taking differently: Apply 1 application to affected area two times a day. On rash, Apply sparingly to area for rash/itching. Uses as needed) hydrocortisone probutate 0.1 % crea Apply to affected area once daily as needed. No current facility-administered medications for this visit. Allergies: Floxin [Ofloxacin], Bumex [Bumetanide], Hydrochlorothiazide, Keflex [Cephalexin], Naproxen, Norvasc [Amlodipine Besylate], Penicillins, Proctosol [Hydrocortisone Acetate], Sulfa (Sulfonamide Antibiotics), Colchicine, and Minoxidil ROS: General (negative for fatigue, malaise, weight loss/gain) HEENT (negative for headache, earache, recent vision changes, sinus pain, sore throat) Respiratory (no recent shortness of breath, hemoptysis) CV (negative for chest tightness, palpitations) Musculoskeletal (see HPI) Psych (no depression, anxiety) REFERRING PHYSICIAN: Consultation requested by Dr. Harvey for an opinion regarding thumb/wrist pain. My final recommendations will be communicated back to the requesting physician by way of shared Medical record or letter to requesting physician via US mail. Atul Harvey [address] [facility] [id number] Atul Harvey DO [address] [facility] [address] Phuc Marti MD documented in this encounterC[facility]12-[facility]24 NoteHNO ID: [id number] Author: PHUC MARTI MD Service: ? Author Type: Physician Type: Progress Notes Filed: 10/12/2024 16:32 Note Text: Phuc Marti MD Department of Orthopaedics Orthopaedics [address] [facility] [address] Dept: [phone] Dept September 19, 2024 CHIEF COMPLAINT: New and Pain of the Left Wrist HPI Patient here today for left wrist pain present for a few months. She states that she gets sharp pain when she tries to lift anything with weight. She is left hand dominant. X-ray completed on 08/22/2024. ASSESSMENT: M18.12 Primary osteoarthritis of first carpometacarpal joint of left hand (primary encounter diagnosis) M25.532 Left wrist pain PLAN: we discussed the treatment options for CMC OA. She'll start with a brace for now. FOLLOW UP INSTRUCTIONS: As needed. OBJECTIVE: Ms. Mary Crane is a pleasant 84 year old in no apparent distress. Gen:There were no vitals taken for this visit. nl development, non obese, no deformities ENT: Normocephalic, normal hearing, moist mucosa CV: Pulses:Radial= 2+ and symmetric, capillary refill < 2 secs, no peripheral edema/varicosities Skin: no rash, bruising or lesions. Good turgor. Psych: cooperative and appropriate, alert and oriented x 3, good mood and affect. Musculoskeletal: Mild swelling at basal joint of the thumb consistent with OA. Crepitus on grind testing. IMAGING: * * *Final Report* * * DATE OF EXAM: Aug 22 2024 11:47AM WRX [id number] - XR WRIST 3V PA/LAT/OBL LT / PROCEDURE REASON: Left wrist pain * * * * Physician Interpretation * * * * EXAMINATION: XR WRIST 3V PA/LAT/OBL LT HISTORY: PT STATES LEFT WRIST PAIN RA Left wrist pain . TECHNIQUE: XR WRIST 3V PA/LAT/OBL LT Laterality: LEFT Number of different views (projections): 3 M: XB_1 COMPARISON: RESULT: Advanced first CMC degenerative changes and mild degenerative change at the triscaphe joint. Mild soft tissue swelling around the left wrist. No acute fracture or dislocation. There are no bony erosions. Supporting Subjective Information Below: Past Medical History: PAST MEDICAL HISTORY Diagnosis Date Advance care planning 04/01/2022 Daughter Noemy Arrhythmia Benign neoplasm of colon Chronic kidney disease 02/09/2015 Diverticulosis of colon (without mention of hemorrhage) IFG (impaired fasting glucose) 03/2022 Incisional hernia 07/06/2015 Internal hemorrhoids without mention of complication Rheumatoid arthritis(714.0) Rheumatoid arthritis(714.0) Sicca syndrome (HCC) Unspecified essential hypertension Past Surgical History: PAST SURGICAL HISTORY Procedure Laterality Date CATARACT EXTRACTION HX 10/12/2004 COLONOSCOPY FLX DX W/COLLJ SPEC WHEN PFRMD 09/30/2005 Colonoscopy COLONOSCOPY FLX DX W/COLLJ SPEC WHEN PFRMD 07/28/2016 Colonoscopy COLONOSCOPY SCREENING 09/30/2022 multiple adenomatous polyps, repeat in 3 yrs ESOPHAGOGASTRODUODENOSCOPY TRANSORAL DIAGNOSTIC 12/21/2014 EGD LAPAROSCOPY SURG CHOLECYSTECTOMY 02/20/2015 NEUROPLASTY AND/TRANSPOS MEDIAN NRV CARPAL TUNNE 02/12/2006 Carpal tunnel decomp Left NEUROPLASTY AND/TRANSPOS MEDIAN NRV CARPAL TUNNE 02/27/2006 Carpal tunnel decomp Right PAST SURGICAL HISTORY OF 10/12/2001 hemorrhoidectomy , bladder, and umbilical hernia repair PAST SURGICAL HISTORY OF 08/12/2006 bladder suspension REPAIR FIRST ABDOMINAL WALL HERNIA 07/06/2015 with mesh VAGINAL HYSTERECTOMY UTERUS 250 GM/< 10/12/1983 Hysterectomy, vaginal and bladder tacked up Family History: FAMILY HISTORY Problem Relation Age of Onset Diabetes Mother Hypertension Mother Heart Father Diabetes Sister No Known Problems Sister No Known Problems Brother Heart Brother No Known Problems Brother Social History: Social History Tobacco Use Smoking status: Never Smokeless tobacco: Never Vaping Use Vaping status: Never Used Substance Use Topics Alcohol use: No Drug use: No Medications: Current Outpatient Medications Medication Sig atenolol (TENORMIN) 25 mg tablet Take 1 tablet by mouth two times a day. cloNIDine HCl (CATAPRES) 0.2 mg tablet Take 1 tablet by mouth two times a day. losartan (COZAAR) 100 mg tablet Take 1 tablet by mouth once daily. potassium chloride ER (KLOR-CON M10) 10 mEq tablet Take 1 tablet by mouth two times a day. rosuvastatin (CRESTOR) 10 mg tablet Take 1 tablet by mouth once daily. levothyroxine (LEVOXYL) 25 mcg tablet Take 1 tablet by mouth once daily. Take on empty stomach. For Thyroid folic acid 1 mg tablet Take 2 tablets by mouth once daily. amLODIPine (NORVASC) 2.5 mg tablet Take 1 tablet by mouth once daily. allopurinol (ZYLOPRIM) 100 mg tablet Take 1 tablet by mouth once daily. Cholecalciferol, Vitamin D3, 50 mcg (2,000 unit) cap Take 1 capsule by mouth once daily. dicyclomine (BENTYL) 10 mg capsule Take 1 capsule by mouth before meals and at bedtime. For diarrhea or abd (more content not included)...[facility]12-09-2024 NoteHNO ID: [id number] Author: MITESH MCCABE RN Service: ? Author Type: Registered Nurse Type: Progress Notes Filed: 09/19/2024 10:27 Note Text: CDM Telephonic Outreach Provider Action/FYI -chf, ckd Contacted for: Routine Telephonic Outreach Contact made with patient: Yes Patient identified by name and date of . Discussed care with patient Are you experiencing any new or worsening symptoms you need to talk about today? No Disease Specific Do you have new or worsening shortness of breath with activity? No Do you have new or worsening swelling of legs, feet or ankles? No Left wrist pain had improved after recent injection in August however is starting to hurt again; has appt this afternoon w/ ortho Based on assessment expert, the following disposition is advised: No symptoms or symptoms present, not severe. Routed to: No Action Needed NALINI Education Provided this Outreach: No Mitesh Mccabe RN September 19, 2024 10:25 [facility]12-09-2024 History of Present illness Narrative* Mitesh Mccabe RN - 09/19/2024 10:23 AM EST [facility] Telephonic Outreach Provider Meghana/LAZARUS foster ckd Contacted for: Routine Telephonic Outreach Contact made with patient: Yes Patient identified by name and date of . Discussed care with patient Are you experiencing any new or worsening symptoms you need to talk about today? No Disease Specific Do you have new or worsening shortness of breath with activity? No Do you have new or worsening swelling of legs, feet or ankles? No Left wrist pain had improved after recent injection in August however is starting to hurt again; has appt this afternoon w/ ortho Based on assessment expert, the following disposition is advised: No symptoms or symptoms present, not severe. Routed to: No Action Needed NALINI Education Provided this Outreach: No Mitesh Mccabe RN September 19, 2024 10:25 AM * Mitesh Mccabe RN - 09/16/2024 1:36 PM EST [facility] Telephonic Outreach Provider Meghana/ada Baron Contacted for: Routine Telephonic Outreach Contact made with patient: No, left message. Mitesh Mccabe RN September 16, 2024 1:37 PM documented in this encounterC[facility]12-06-2024 NoteHNO ID: [id number] Author: MITESH MCCABE RN Service: ? Author Type: Registered Nurse Type: Progress Notes Filed: 09/19/2024 10:27 Note Text: CD Telephonic Outreach Provider Action/FYI -chf, ckd Contacted for: Routine Telephonic Outreach Contact made with patient: No, left message. Mitesh Mccabe RN September 16, 2024 1:37 [facility]12-06-2024 NotePatient Outreach ([facility] MARY CRANE ([id number]) 1940 F TXT Date Time Provider Department 09/16/24 [facility] visit today, we recorded the following information about you: Mitesh Mccabe RN 09/19/2024 10:27 AM Signed [facility] Telephonic Outreach Provider Action/FYI -chf, ckd Contacted for: Routine Telephonic Outreach Contact made with patient: No, left message. Mitesh Mccabe RN September 16, 2024 1:37 PM Mitesh Mccabe RN 09/19/2024 10:27 AM Signed [facility] Telephonic Outreach Provider Action/FYI -chf, ckd Contacted for: Routine Telephonic Outreach Contact made with patient: Yes Patient identified by name and date of . Discussed care with patient Are you experiencing any new or worsening symptoms you need to talk about today? No Disease Specific Do you have new or worsening shortness of breath with activity? No Do you have new or worsening swelling of legs, feet or ankles? No Left wrist pain had improved after recent injection in August however is starting to hurt again; has appt this afternoon w/ ortho Based on assessment expert, the following disposition is advised: No symptoms or symptoms present, not severe. Routed to: No Action Needed NALINI Education Provided this Outreach: No Mitesh Mccabe RN September 19, 2024 10:25 AM Allergies As of Date: 09/16/2024 Noted Allergy Reaction FLOXIN (OFLOXACIN) 09/10/2005 10 - Anaphylaxis BUMEX (BUMETANIDE) 09/10/2005 5 - Intolerance HYDROCHLOROTHIAZIDE 09/10/2005 2 - Rash 5 - Intolerance Comments: leucocytoclastic vasculitis KEFLEX (CEPHALEXIN) 09/10/2005 2 - Rash NAPROXEN 09/10/2005 2 - Rash 4 - Hives NORVASC (AMLODIPINE BESYLATE) 09/10/2005 5 - Intolerance PENICILLINS 09/10/2005 5 - Intolerance Comments: Rash PROCTOSOL (HYDROCORTISONE ACETATE)09/10/2005 5 - Intolerance SULFA (SULFONAMIDE ANTIBIOTICS) 09/10/2005 2 - Rash 8 - GI Upset COLCHICINE 10/17/2005 4 - Hives MINOXIDIL 03/24/2011 14 - Other: See Comments Comments: facial hair Date Reviewed: 08/22/2024 Reviewed by: Mary Mendieta LPN - Fully Assessed Reason for Visit: community monitoring outreach [Other] Cmt: Monthly cdm call Prescriptions as of 09/19/2024 - atenolol (TENORMIN) 25 mg tablet Take 1 tablet by mouth two times a day. - cloNIDine HCl (CATAPRES) 0.2 mg tablet Take 1 tablet by mouth two times a day. - losartan (COZAAR) 100 mg tablet Take 1 tablet by mouth once daily. - potassium chloride ER (KLOR-CON M10) 10 mEq tablet Take 1 tablet by mouth two times a day. - rosuvastatin (CRESTOR) 10 mg tablet Take 1 tablet by mouth once daily. - nystatin (NYSTOP) powder Apply 1 application to affected area four times a day as needed. Yeast infection/rash in groin and under breasts - ketoconazole (NIZORAL) 2 % cream Apply to affected area two times a day. - levothyroxine (LEVOXYL) 25 mcg tablet Take 1 tablet by mouth once daily. Take on empty stomach. For Thyroid - folic acid 1 mg tablet Take 2 tablets by mouth once daily. - triamcinolone acetonide (KENALOG) 0.1 % cream Apply 1 application to affected area two times a day as needed (rash). Apply sparingly to area for rash/itching. - amLODIPine (NORVASC) 2.5 mg tablet Take 1 tablet by mouth once daily. - allopurinol (ZYLOPRIM) 100 mg tablet Take 1 tablet by mouth once daily. - Cholecalciferol, Vitamin D3, 50 mcg (2,000 unit) cap Take 1 capsule by mouth once daily. - dicyclomine (BENTYL) 10 mg capsule Take 1 capsule by mouth before meals and at bedtime. For diarrhea or abdominal cramping - furosemide (LASIX) 40 mg tablet Take 1 tablet by mouth once daily. - cyanocobalamin (VITAMIN B-12) 1,000 mcg tab Take 1,000 mcg by mouth once daily. - triamcinolone acetonide (KENALOG) 0.1 % cream Apply 1 application to affected area twice daily. On rash, Apply sparingly to area for rash/itching. - vit A/vit C/vit E/zinc/copper (OCUVITE PRESERVISION ORAL) Take by mouth twice daily. - apremilast (OTEZLA) 30 mg tablet Take 30 mg by mouth twice daily. - hydrocortisone probutate 0.1 % crea Apply to affected area once daily as needed. - loratadine (CLARITIN) 10 mg tablet Take 10 mg by mouth once daily. Takes daily as needed - acetaminophen (TYLENOL) 325 mg tablet Take 650 mg by mouth every 6 hours as needed. Problem List As Of Date 09/16/2024 Noted Resolved Benign neoplasm of colon [D12.6] 09/30/2005 02/24/2020 DIVERTICULOSIS OF COLON W/O BLEED [K57.30] 09/30/2005 Internal hemorrhoids without mention of complic*09/30/2005 02/24/2020 CARPAL TUNNEL SYNDROME [G56.00] 10/17/2005 03/12/2006 LOC PRIM OSTEOARTH-HAND [M19.049] 10/17/2005 Other tenosynovitis of hand and wrist [M65.849,*10/17/2005 02/24/2020 Follow-up examination, following unspecified lindsay*02/26/2006 02/08/2015 Rheumatoid arthritis involving multiple sites w*02/27/2006 CARPAL TU (more content not included)...[facility]11-21-2024 Telephone encounter Note* Telephone Encounter - Ellen Christopher LPN - 09/01/2024 6:17 PM EST Spoke with pt gave information provided. Pt voices understanding has appointment with ortho set up. [facility]11-21-2024 Miscellaneous Notes* Telephone Encounter - Ellen Christopher LPN - 09/01/2024 6:17 PM EST Spoke with pt gave information provided. Pt voices understanding has appointment with ortho set up. * Telephone Encounter - Atul Harvey DO - 08/31/2024 10:11 PM EST Please let her know that her hand/wrist xray shows osteoarthritis, she can consider follow up with ORthopedics for injection in joint Atul Harvey DO documented in this encounterC[facility]11-20-2024 Telephone encounter Note * Telephone Encounter - Atul Harvey DO - 08/31/2024 10:11 PM EST Please let her know that her hand/wrist xray shows osteoarthritis, she can consider follow up with ORthopedics for injection in joint Atul Harvey DO [facility]11-11-2024 History of Present illness Narrative* Rao Vance, (R) - 08/22/2024 11:30 AM EST Radiology Service Progress Note PATIENT NAME: Mary Crane DATE OF SERVICE: August 22, 2024 TIME: 8:52 PM PATIENT IDENTITY VERIFICATION COMPLETED USING TWO (2) IDENTIFIERS: Name and Date of confirmedby patient verbally. FALL SCREENING: Has the patient had 2 falls in the last year or 1 fall with injury or currently using an Ambulatory Assistive Device (Walker, Cane, Wheelchair, Crutches, etc.)? No PATIENT GENDER DATA: Female. status: : No status: NO. PATIENT RELEVANT IMPLANT DATA REVIEWED: Not Applicable PATIENT PRESENTS WITH AN IMPLANTABLE OR ATTACHED SCIENTIFIC TECHNICAL WRITER: No RADIOLOGY DEPARTMENT: General X-ray: Exam(s) Completed: Upper Extremity X- Ray(s): Wrist, left PERIPHERAL IV DATA: Not applicable SIGNED BY: RT Kirti(R) August 22, 2024 8:52 PM documented in this encounterCleveland [facility]11-11-2024 NoteHNO ID: [id number] Author: RAO VANCE RT(R) Service: ? Author Type: Technologist Type: Progress Notes Filed: 08/22/2024 20:53 Note Text: Radiology Service Progress Note PATIENT NAME: Mary Crane DATE OF SERVICE: August 22, 2024 TIME: 8:52 PM PATIENT IDENTITY VERIFICATION COMPLETED USING TWO (2) IDENTIFIERS: Name and Date of confirmed by patient verbally. FALL SCREENING: Has the patient had 2 falls in the last year or 1 fall with injury or currently using an Ambulatory Assistive Device (Walker, Cane, Wheelchair, Crutches, etc.)? No PATIENT GENDER DATA: Female. status: : No status: NO. PATIENT RELEVANT IMPLANT DATA REVIEWED: Not Applicable PATIENT PRESENTS WITH AN IMPLANTABLE OR ATTACHED SCIENTIFIC TECHNICAL WRITER: No RADIOLOGY DEPARTMENT: General X-ray: Exam(s) Completed: Upper Extremity X-Ray(s): Wrist, left PERIPHERAL IV DATA: Not applicable SIGNED BY: RT Kirti(R) August 22, 2024 8:52 [facility]11-11-2024 Instructions* Patient Instructions* Atul Harvey DO - 08/22/2024 10:11 AM EST Increase your protein in your diet and Start taking iron supplement - take SLO FE with 45-67 mg of iron in it every other day, take with ameal. documented in this encounterCleveland [facility]11-11-2024 NoteHNO ID: [id number] Author: HARVEY, ATUL, DO Service: ? Author Type: Physician Type: Progress Notes Filed: 08/22/2024 12:15 Note Text: CC: Mary Crane is a 83 year old female who presents to the office for follow up HPI: Left wrist pain, has been worsening, interested in getting help with pain symptoms. Hasn't had xrays or seen orthopedics. No injuries. Worse with use. Is left hand dominant CKD stage 2-3, mild, has increased her water intake as recommended, avoids NSAIDs as d/w her previous Lactose intolerance, occasional diarrhea/abd cramping IFG, diet controlled, tries to also stay physically active Hypothyroidism, taking levothyroxine TSH Date Value Ref Range Status 08/16/2024 2.460 0.270 - 4.200 mIU/L Final RA, seen by Surgeon Assistant for care, taking Otezla as prescribed HTN, well controlled, taking medications as prescribed. 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 routinely, Only occasional palpitations and heart racing symptoms as well as dyspnea if she is exerting up an incline such as walking up her driveway after getting her mail, no chest pressure or Pain . 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 PAST MEDICAL HISTORY Diagnosis Date Advance care planning 04/01/2022 Daughter Noemy Arrhythmia Benign neoplasm of colon Chronic kidney disease 02/09/2015 Diverticulosis of colon (without mention of hemorrhage) IFG (impaired fasting glucose) 03/2022 Incisional hernia 07/06/2015 Internal hemorrhoids without mention of complication Rheumatoid arthritis(714.0) Rheumatoid arthritis(714.0) Sicca syndrome (HCC) Unspecified essential hypertension PAST SURGICAL HISTORY Procedure Laterality Date CATARACT EXTRACTION HX 10/12/2004 COLONOSCOPY FLX DX W/COLLJ SPEC WHEN PFRMD 09/30/2005 Colonoscopy COLONOSCOPY FLX DX W/COLLJ SPEC WHEN PFRMD 07/28/2016 Colonoscopy COLONOSCOPY SCREENING 09/30/2022 multiple adenomatous polyps, repeat in 3 yrs ESOPHAGOGASTRODUODENOSCOPY TRANSORAL DIAGNOSTIC 12/21/2014 EGD LAPAROSCOPY SURG CHOLECYSTECTOMY 02/20/2015 NEUROPLASTY AND/TRANSPOS MEDIAN NRV CARPAL TUNNE 02/12/2006 Carpal tunnel decomp Left NEUROPLASTY AND/TRANSPOS MEDIAN NRV CARPAL TUNNE 02/27/2006 Carpal tunnel decomp Right PAST SURGICAL HISTORY OF 10/12/2001 hemorrhoidectomy , bladder, and umbilical hernia repair PAST SURGICAL HISTORY OF 08/12/2006 bladder suspension REPAIR FIRST ABDOMINAL WALL HERNIA 07/06/2015 with mesh VAGINAL HYSTERECTOMY UTERUS 250 GM/< 10/12/1983 Hysterectomy, vaginal and bladder tacked up Social History: Social History Tobacco Use Smoking status: Never Smokeless tobacco: Never Vaping Use Vaping status: Never Used Substance Use Topics Alcohol use: No Drug use: No FAMILY HISTORY Problem Relation Age of Onset Diabetes Mother Hypertension Mother Heart Father Diabetes Sister No Known Problems Sister No Known Problems Brother Heart Brother No Known Problems Brother Current Outpatient prescriptions: atenolol (TENORMIN) 25 mg tablet Take 1 tablet by mouth two times a day. cloNIDine HCl (CATAPRES) 0.2 mg tablet Take 1 tablet by mouth two times a day. losartan (COZAAR) 100 mg tablet Take 1 tablet by mouth once daily. potassium chloride ER (KLOR-CON M10) 10 mEq tablet Take 1 tablet by mouth two times a day. rosuvastatin (CRESTOR) 10 mg tablet Take 1 tablet by mouth once daily. nystatin (NYSTOP) powder Apply 1 application to affected area four times a day as needed. Yeast infection/rash in groin and under breasts ketoconazole (NIZORAL) 2 % cream Apply to affected area two times a day. (Patient taking differently: Apply to affected area two times a day. PRN) levothyroxine (LEVOXYL) 25 mcg tablet Take 1 tablet by mouth once daily. Take on empty stomach. For Thyroid folic acid 1 mg tablet Take 2 tablets by mouth once daily. triamcinolone acetonide (KENALOG) 0.1 % cream Apply 1 application to affected area two times a day as needed (rash). Apply sparingly to area for rash/itching. amLODIPine (NORVASC) 2.5 mg tablet Take 1 tablet by mouth once daily. allopurinol (ZYLOPRIM) 100 mg tablet Take 1 tablet by mouth once daily. Cholecalciferol, Vitamin D3, 50 mcg (2,000 unit) cap Take 1 capsule by mouth once daily. dicyclomine (BENTYL) 10 mg capsule Take 1 capsule by mouth before meals and at bedtime. For diarrhea or abdominal cramping furosemide (LASIX) 40 mg tablet Take 1 tablet by mouth once daily. cyanocobalamin (VITAMIN B-12) 1,000 mcg tab Take 1,000 mcg by mouth once daily. triamcinolone acetonide (KENALOG) 0.1 % cream Apply 1 application to affected area twice daily. On rash, Apply sparingly to area for rash/itching. (Patient taking differently: Apply 1 application to affected area two times a day. On rash, Apply sparingly to area for rash/itching. Uses as needed) vit A/vit C/vit E/zinc/copper (OCUVITE PRESERVISION ORAL) Take by mouth twice daily. apremilast (OTEZLA) 30 mg tablet Take 30 mg by mouth twice daily. hydrocortiso (more content not included)...[facility]11-11-2024 History of Present illness Narrative* Atul Harvey, DO - 08/22/2024 9:53 AM EST CC: Mary Crane is a 83 year old female who presents to the office for follow up HPI: Left wrist pain, has been worsening, interested in getting help with pain symptoms. Hasn't had xrays or seen orthopedics. No injuries. Worse with use. Is left hand dominant CKD stage 2-3, mild, has increased her water intake as recommended, avoids NSAIDs as d/w her previous Lactose intolerance, occasional diarrhea/abd cramping IFG, diet controlled, tries to also stay physically active Hypothyroidism, taking levothyroxine TSH Date Value Ref Range Status 08/16/2024 2.460 0.270 - 4.200 mIU/L Final RA, seen by Surgeon Assistant for care, taking Otezla as prescribed HTN, well controlled, taking medications as prescribed. 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 routinely, Only occasional palpitations and heart racing symptoms as well as dyspnea if she is exerting up an incline such aswalking up her driveway after getting her mail, no chest pressure or Pain . 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 PAST MEDICAL HISTORY Diagnosis Date Advance care planning 04/01/2022 Daughter Noemy Arrhythmia Benign neoplasm of colon Chronic kidney disease 02/09/2015 Diverticulosis of colon (without mention of hemorrhage) IFG (impaired fasting glucose) 03/2022 Incisional hernia 07/06/2015 Internal hemorrhoids without mention of complication Rheumatoid arthritis(714.0) Rheumatoid arthritis(714.0) Sicca syndrome (HCC) Unspecified essential hypertension PAST SURGICAL HISTORY Procedure Laterality Date CATARACT EXTRACTION HX 10/12/2004 COLONOSCOPY FLX DX W/COLLJ SPEC WHEN PFRMD 09/30/2005 Colonoscopy COLONOSCOPY FLX DX W/COLLJ SPEC WHEN PFRMD 07/28/2016 Colonoscopy COLONOSCOPY SCREENING 09/30/2022 multiple adenomatous polyps, repeat in 3 yrs ESOPHAGOGASTRODUODENOSCOPY TRANSORAL DIAGNOSTIC 12/21/2014 EGD LAPAROSCOPY SURG CHOLECYSTECTOMY 02/20/2015 NEUROPLASTY &/TRANSPOS MEDIAN NRV CARPAL TUNNE 02/12/2006 Carpal tunnel decomp Left NEUROPLASTY &/TRANSPOS MEDIAN NRV CARPAL TUNNE 02/27/2006 Carpal tunnel decomp Right PAST SURGICAL HISTORY OF 10/12/2001 hemorrhoidectomy , bladder, and umbilical hernia repair PAST SURGICAL HISTORY OF 08/12/2006 bladder suspension REPAIR FIRST ABDOMINAL WALL HERNIA 07/06/2015 with mesh VAGINAL HYSTERECTOMY UTERUS 250 GM/< 10/12/1983 Hysterectomy, vaginal and bladder tacked up Social History: Social History Tobacco Use Smoking status: Never Smokeless tobacco: Never Vaping Use Vaping status: Never Used Substance Use Topics Alcohol use: No Drug use: No FAMILY HISTORY Problem Relation Age of Onset Diabetes Mother Hypertension Mother Heart Father Diabetes Sister No Known Problems Sister No Known Problems Brother Heart Brother No Known Problems Brother Current Outpatient prescriptions: atenolol (TENORMIN) 25 mg tablet Take 1 tablet by mouth two times a day. cloNIDine HCl (CATAPRES) 0.2 mg tablet Take 1 tablet by mouth two times a day. losartan (COZAAR) 100 mg tablet Take 1 tablet by mouth once daily. potassium chloride ER (KLOR-CON M10) 10 mEq tablet Take 1 tablet by mouth two times a day. rosuvastatin (CRESTOR) 10 mg tablet Take 1 tablet by mouth once daily. nystatin (NYSTOP) powder Apply 1 application to affected area four times a day as needed. Yeast infection/rash in groin and under breasts ketoconazole (NIZORAL) 2 % cream Apply to affected area two times a day. (Patient taking differently: Apply to affected area two times a day. PRN) levothyroxine (LEVOXYL) 25 mcg tablet Take 1 tablet by mouth once daily. Take on empty stomach. ForThyroid folic acid 1 mg tablet Take 2 tablets by mouth once daily. triamcinolone acetonide (KENALOG) 0.1 % cream Apply 1 application to affected area two times a day as needed (rash). Apply sparingly to area for rash/itching. amLODIPine (NORVASC) 2.5 mg tablet Take 1 tablet by mouth once daily. allopurinol (ZYLOPRIM) 100 mg tablet Take 1 tablet by mouth once daily. Cholecalciferol, Vitamin D3, 50 mcg (2,000 unit) cap Take 1 capsule by mouth once daily. dicyclomine (BENTYL) 10 mg capsule Take 1 capsule by mouth before meals and at bedtime. For diarrhea or abdominal cramping furosemide (LASIX) 40 mg tablet Take 1 tablet by mouth once daily. cyanocobalamin (VITAMIN B-12) 1,000 mcg tab Take 1,000 mcg by mouth once daily. triamcinolone acetonide (KENALOG) 0.1 % cream Apply 1 application to affected area twice daily. On rash, Apply sparingly to area for rash/itching. (Patient taking differently: Apply 1 application to affected area two times a day. On rash, Apply sparingly to area for rash/itching. Uses as needed) vit A/vit C/vit E/zinc/copper (OCUVITE PRESERVISION ORAL) Take by mouth twice daily. apremilast (OTEZLA) 30 mg tablet Take 30 mg by mouth twice daily. hydrocortisone probutate 0.1 % crea Apply to affected area once daily as needed. loratadine (CLARITIN) 10 mg tablet Take 10 mg by mouth once daily. Takes daily as needed acetaminophen (TYLENOL) 325 mg tablet Take 650 mg by mouth every 6 hours as needed. Allergies: ALLERGIES Allergen Reactions Floxin [Ofloxacin] Anaphylaxis Bumex [Bumetanide] Intolerance Hydrochlorothiazide Rash, Intolerance leucocytoclastic vasculitis Keflex [Cephalexin] Rash Naproxen Rash, Hives Norvasc [Amlodipine* Intolerance Penicillins Intolerance Rash Proctosol [Hydrocor* Intolerance Sulfa (Sulfonamide * Rash, GI Upset Colchicine Hives Minoxidil Other: See Comments facial hair ROS: See HIP PE: 08/22/24 0945 BP: 122/64 Pulse: 60 Resp: 20 Temp: 36.1 C (97 F) TempSrc: Left Tympanic Weight: 71.4 kg (157 lb 6.5 oz) Gen: A&O, NAD, non-toxic appearing, Pleasant, cooperative HEENT: NT/AC, PERRLA, wearing glasses, EOMs intact b/l, nares clear and patent b/l, pharynx withouterythema, exudate or lesions. Dry mucous membranes, Uvula midline. EACs without erythema or debris.TMs pearly thomson with intact landmarks b/l. Neck: supple, No cervical LAD, no thyromegaly, no carotid bruits CV: RRR, normal S1 and S2, no murmurs, no gallops, no rubs, Pulses 2+ and symmetric in UE and LE b/l Lungs: normal respiratory effort, CTA b/l, no wheezing or rhonchi or rales Abd: soft, NT, ND, +BS, no hepatosplenomegaly MS: reduced ROM left wrist with flexion and extension with pain in main wrist joint Neuro: CN II-XII intact b/l, strength 5/5 b/l UE and LE, DTRs 2/4 UE and LE, sensation intact. Skin: warm, dry, intact, No rashes or lesions on exposed skin. No edema, normal pulses ASSESSMENT/PLAN: 1. Left wrist pain - ICD9: 719.43, ICD10: M25.532 (primary diagnosis) Xray and referral to orthopedics for opinion Assume likely pain is secondary to OA, she is left hand dominant - XR WRIST GENERAL 3V PA/LAT/OBL LEFT - CONSULT TO ORTHOPAEDICS 2. Hypertension, essential - ICD9: 401.9, ICD10: I10 - Controlled - Continue current medications - Recommend home blood pressure monitoring, to bring results to next visit - Encouraged sodium restriction, DASH or Mediterranean diet - Recommend regular aerobic exercise - ATENOLOL 25 MG TABLET - CLONIDINE HCL 0.2 MG TABLET 3. Hypokalemia - ICD9: 276.8, ICD10: E87.6 rx refilled, stable - POTASSIUM CHLORIDE ER 10 MEQ TABLET,EXTENDED RELEASE(PART/CRYST) 4. Need for influenza vaccination - ICD9: V04.81, ICD10: Z23 - INFLUENZA VACCINE, PRSV FREE, AGE 65+ YR, HIGH DOSE, TRIVALENT (FLUZONE HIGH-DOSE) 5. Dyslipidemia - ICD9: 272.4, ICD10: E78.5 - Control undetermined, due for labs - Counseled on healthy diet and regular exercise - Discussed need for and benefit of weight loss. BMI 27.88 kg/(m^2) 6. Vitamin D deficiency - ICD9: 268.9, ICD10: E55.9 Continue supplement 7. Subclinical hypothyroidism - ICD9: 244.8, ICD10: E03.8 - Instructed patient on importance of taking on an empty stomach either first thing in the morning or at bedtime. - continue current dose of Synthroid 0.025 mg 8. Vitamin B12 deficiency - ICD9: 266.2, ICD10: E53.8 Recheck labs in 6 months 9. Fatty liver - ICD9: 571.8, ICD10: K76.0 stable 10. IFG (impaired fasting glucose) - ICD9: 790.21, ICD10: R73.01 stable Atul Harvey DO To ER if develops chest pain, shortness of breath, or severe worsening of symptoms. Discussed risks, benefits, alternatives, and potential side effects of medications. Patient expressed understanding and agreed with the plan. Atul Harvey DO [address] [place] [address] [facility] Telephone encounter Note * Telephone Encounter - Brooklyn Ying RN - 08/15/2024 12:36 PM EST Patient calling to ask about lab orders. Advised fasting labs ordered. Brooklyn Ying RN [facility]11-04-2024 Miscellaneous Notes* Telephone Encounter - Brooklyn Ying RN - 08/15/2024 12:36 PM EST Patient calling to ask about lab orders. Advised fasting labs ordered. Brooklyn Ying RN * Telephone Encounter - Ellen Christopher LPN - 08/15/2024 10:42 AM EST Message left labs were ordered. * Telephone Encounter - Cecilia Sky PA-C - 08/15/2024 9:47 AM EST Labs ordered-please contact patient per below Cecilia Sky PA-C * Telephone Encounter - Kimi Wyatt, RN - 08/15/2024 8:31 AM EST Pt asking office to call her, once orders are in the lab, to let her know. [phone] * Telephone Encounter - Lulú Tang MA - 08/12/2024 11:46 AM EDT Pt request lab orders. Pended basic labs. Please file. Lulú Tang MA documented [facility] Telephone encounter Note * Telephone Encounter - Ellen Christopher LPN - 08/15/2024 10:42 AM EST Message left labs were ordered. [facility]11-04-2024 Telephone encounter Note* Telephone Encounter - Cecilia Sky PA-C - 08/15/2024 9:47 AM EST Labs ordered-please contact patient per below Cecilia Sky PA-C [facility]11-04-2024 Telephone encounter Note* Telephone Encounter - Kimi Wyatt, JOSE - 08/15/2024 8:31 AM EST Pt asking office to call her, once orders are in the lab, to let her know. [phone] [facility]11-01-2024 Telephone encounter Note* Telephone Encounter - Lulú Tang MA - 08/12/2024 11:46 AM EDT Pt request lab orders. Pended basic labs. Please file. Lulú Tang MA [facility]10-21-2024 NoteHNO ID: [id number] Author: CHRISTEL CHISHOLM RN Service: ? Author Type: Registered Nurse Type: Progress Notes Filed: 08/01/2024 11:30 Note Text: EVENT MONITOR DISPOSABLE PATCH INSTRUCTIONS [id number] Skin prepped and cleansed with alcohol Patch secured to prepped area Monitor Activated Serial #: [id number] Patient Instructed: Prescribed order timeframe Bathing guidelines Usage of event button and diary documentation Return of monitor at the end of prescribed order Call with problems [phone] or [phone]. [phone] Patient expresses a good understanding of instructions [facility] History of Present illness Narrative* Christel Chisholm RN - 08/01/2024 11:09 AM EDT EVENT MONITOR DISPOSABLE PATCH INSTRUCTIONS Patient Name: Mary Crane [facility] Number: [id number] Skin prepped and cleansed with alcohol Patch secured to prepped area Monitor Activated Serial #: [id number] Patient Instructed: Prescribed order timeframe Bathing guidelines Usage of event button and diary documentation Return of monitor at the end of prescribed order Call with problems [phone] or [phone]. [phone] Patient expresses a good understanding of instructions Christel Chisholm RN * Rasheed Barrios MD - 08/01/2024 10:40 AM EDT Images from the original note were not included. [facility] Cardiology ([facility] [address] [facility] [id number] OUTPATIENT VISIT DATE 08/01/2024 PRIMARY CARE PHYSICIAN: Atul Harvey [address] [place] [address] HISTORY OF PRESENT ILLNESS: Ms. Crane is a 83 year old woman with history of mild pulmonary hypertension, essential hypertension, and rheumatoid arthritis who presents to the office for routine follow-up. Patient has noticed some palpitations but no heart racing. She continues to do extremely well from a functional standpoint. She has some shortness of breath on exertion noticed mostly by her children. She has not had lightheadedness, dizziness, or syncope. She has not had symptoms concerning for congestive heart failure including PND, orthopnea, or lower extremity edema. PAST MEDICAL HISTORY Diagnosis Date Advance care planning 04/01/2022 Daughter Noemy Arrhythmia Benign neoplasm of colon Chronic kidney disease 02/09/2015 Diverticulosis of colon (without mention of hemorrhage) IFG (impaired fasting glucose) 03/2022 Incisional hernia 07/06/2015 Internal hemorrhoids without mention of complication Rheumatoid arthritis(714.0) Rheumatoid arthritis(714.0) Sicca syndrome (HCC) Unspecified essential hypertension PAST SURGICAL HISTORY Procedure Laterality Date CATARACT EXTRACTION HX 10/12/2004 COLONOSCOPY FLX DX W/COLLJ SPEC WHEN PFRMD 09/30/2005 Colonoscopy COLONOSCOPY FLX DX W/COLLJ SPEC WHEN PFRMD 07/28/2016 Colonoscopy COLONOSCOPY SCREENING 09/30/2022 multiple adenomatous polyps, repeat in 3 yrs ESOPHAGOGASTRODUODENOSCOPY TRANSORAL DIAGNOSTIC 12/21/2014 EGD LAPAROSCOPY SURG CHOLECYSTECTOMY 02/20/2015 NEUROPLASTY &/TRANSPOS MEDIAN NRV CARPAL TUNNE 02/12/2006 Carpal tunnel decomp Left NEUROPLASTY &/TRANSPOS MEDIAN NRV CARPAL TUNNE 02/27/2006 Carpal tunnel decomp Right PAST SURGICAL HISTORY OF 10/12/2001 hemorrhoidectomy , bladder, and umbilical hernia repair PAST SURGICAL HISTORY OF 08/12/2006 bladder suspension REPAIR FIRST ABDOMINAL WALL HERNIA 07/06/2015 with mesh VAGINAL HYSTERECTOMY UTERUS 250 GM/< 10/12/1983 Hysterectomy, vaginal and bladder tacked up SOCIAL HISTORY Social History Tobacco Use Smoking status: Never Smokeless tobacco: Never Vaping Use Vaping status: Never Used Substance Use Topics Alcohol use: No Drug use: No FAMILY HISTORY Problem Relation Age of Onset Diabetes Mother Hypertension Mother Heart Father Diabetes Sister No Known Problems Sister No Known Problems Brother Heart Brother No Known Problems Brother ALLERGIES: ALLERGIES Allergen Reactions Floxin [Ofloxacin] Anaphylaxis Bumex [Bumetanide] Intolerance Hydrochlorothiazide Rash, Intolerance leucocytoclastic vasculitis Keflex [Cephalexin] Rash Naproxen Rash, Hives Norvasc [Amlodipine* Intolerance Penicillins Intolerance Rash Proctosol [Hydrocor* Intolerance Sulfa (Sulfonamide * Rash, GI Upset Colchicine Hives Minoxidil Other: See Comments facial hair MEDICATIONS: nystatin (NYSTOP) powder Apply 1 application to affected area four times a day as needed. Yeast infection/rash in groin and under breasts ketoconazole (NIZORAL) 2 % cream Apply to affected area two times a day. (Patient taking differently: Apply to affected area two times a day. PRN) levothyroxine (LEVOXYL) 25 mcg tablet Take 1 tablet by mouth once daily. Take on empty stomach. ForThyroid folic acid 1 mg tablet Take 2 tablets by mouth once daily. rosuvastatin (CRESTOR) 10 mg tablet Take 1 tablet by mouth once daily. triamcinolone acetonide (KENALOG) 0.1 % cream Apply 1 application to affected area two times a day as needed (rash). Apply sparingly to area for rash/itching. amLODIPine (NORVASC) 2.5 mg tablet Take 1 tablet by mouth once daily. allopurinol (ZYLOPRIM) 100 mg tablet Take 1 tablet by mouth once daily. atenolol (TENORMIN) 25 mg tablet Take 1 tablet by mouth two times a day. Cholecalciferol, Vitamin D3, 50 mcg (2,000 unit) cap Take 1 capsule by mouth once daily. dicyclomine (BENTYL) 10 mg capsule Take 1 capsule by mouth before meals and at bedtime. For diarrhea or abdominal cramping furosemide (LASIX) 40 mg tablet Take 1 tablet by mouth once daily. losartan (COZAAR) 100 mg tablet Take 1 tablet by mouth once daily. potassium chloride ER (KLOR-CON M10) 10 mEq tablet Take 1 tablet by mouth two times a day. cloNIDine HCl (CATAPRES) 0.2 mg tablet Take 1 tablet by mouth two times a day. cyanocobalamin (VITAMIN B-12) 1,000 mcg tab Take 1,000 mcg by mouth once daily. triamcinolone acetonide (KENALOG) 0.1 % cream Apply 1 application to affected area twice daily. On rash, Apply sparingly to area for rash/itching. (Patient taking differently: Apply 1 application to affected area two times a day. On rash, Apply sparingly to area for rash/itching. Uses as needed) vit A/vit C/vit E/zinc/copper (OCUVITE PRESERVISION ORAL) Take by mouth twice daily. apremilast (OTEZLA) 30 mg tablet Take 30 mg by mouth twice daily. hydrocortisone probutate 0.1 % crea Apply to affected area once daily as needed. loratadine (CLARITIN) 10 mg tablet Take 10 mg by mouth once daily. Takes daily as needed acetaminophen (TYLENOL) 325 mg tablet Take 650 mg by mouth every 6 hours as needed. REVIEW OF SYSTEMS: Review of Systems Constitutional: Negative for chills, fever, malaise/fatigue and weight loss. HENT: Negative for hearing loss and sore throat. Eyes: Negative for blurred vision and double vision. Respiratory: Negative. Cardiovascular: Positive for palpitations. Gastrointestinal: Negative. Genitourinary: Negative for dysuria, frequency, hematuria and urgency. Musculoskeletal: Positive for joint pain. Skin: Negative. Neurological: Negative for dizziness, seizures, loss of consciousness, weakness and headaches. Endo/Heme/Allergies: Negative for environmental allergies. Does not bruise/bleed easily. Psychiatric/Behavioral: Negative for depression. PHYSICAL EXAMINATION: BP 124/75 (BP Site: Right Arm, BP Position: Sitting, BP Cuff Size: Regular Adult) Pulse (!) 52 Temp 36.3 C (97.3 F) (Oral) Resp 18 Wt 71.9 kg (158 lb 9.6 oz) SpO2 97% BMI 28.09 kg/m General: Pleasant woman sitting appears comfortable and in no apparent distress. She is alert and oriented x3 HEENT: Carotid upstrokes are brisk bilaterally without bruits. No JVD appreciated. Pulmonary: Lungs are clear no rales, wheezes, or rhonchi. Cardiovascular: Normal S1-S2. Irregularly irregular rhythm noted. Some evidence of bradycardia. Holosystolic 2/6 murmur at the apex in the axilla. Extremities: Warm, well-perfused, no lower extremity edema. Dorsalis pedis and posterior tibial pulses are 1-2+. CARDIOVASCULAR MEDICINE TESTING: ECG office 08/01/2024: Sinus rhythm with frequent PACs. During monitoring there appeared to be someevidence of atrial fibrillation although not clear. First- degree AV block. Nonspecific ST-T wave changes ECG in the office 09/29/2022: Normal sinus rhythm with sinus arrhythmia. First- degree AV block (244ms). Occasional PVCs. No significant ST or T wave changes ECG in the office 09/02/2021: Normal sinus rhythm with first-degree AV block and occasional conducted PACs. Nonspecific ST-T wave changes noted in leads V1 through V3 Lexiscan Cardiolite stress test 07/15/2016: Soft tissue attenuation artifact. No evidence of myocardial ischemia or scar Gated study reports of left ventricular ejection fraction of 77% Echocardiogram 05/03/2024: - Technically difficult exam due to body habitus. - Exam indication: Ascending aortic aneurysm - The left ventricle is normal in size. There is mild concentric left ventricular hypertrophy. Left ventricular systolic function is normal. EF = 54 5% (2D biplane) Indeterminate left ventricular diastolic dysfunction. - The right ventricle is normal in size. Right ventricular systolic function is normal. - The visualized aorta is dilated with a maximal dimension of 4.1 cm. - There is moderate (2+) mitral valve regurgitation. Borderline mitral valve prolapse. - Exam was compared with the prior echocardiographic exam performed on 04/17/2023, with increasein mitral regurgitation and previous aortic size measured at 3.8 cm. Echocardiogram 04/17/2023: - The left ventricle is normal in size. Left ventricular systolic function is normal. EF = 55 5% (2D 4-ch.) Indeterminate left ventricular diastolic dysfunction. - The right ventricle is normal in size. Right ventricular systolic function is normal. - The left atrial cavity is mildly dilated. - The visualized aorta is borderline dilated with a maximal dimension of 3.8 cm. - There are no significant valvular abnormalities. - Exam was compared with the prior echocardiographic exam performed on 06/07/2020, no significant change. Echocardiogram 06/07/2020: - Technically difficult exam due to body habitus. - Exam indication: Shortness of Breath - The left ventricle is normal in size. Left ventricular systolic function is normal. EF = 58 5% (2D biplane) Indeterminate left ventricular diastolic dysfunction due to inconsistent or technically suboptimal data. - The right ventricle is normal in size. Right ventricular systolic function is normal. - There are no significant valvular abnormalities. - The visualized aorta is borderline dilated with a maximal dimension of 3.8 cm. - Estimated right ventricular systolic pressure is 38 mmHg consistent with mild pulmonary hypertension. Estimated right atrial pressure is 8 mmHg based on IVC assessment. - Exam was compared with the prior [facility] echocardiographic exam performed on 08/12/2011 (Stress), MR appears a little bit less today. IMPRESSION: Ms. Crane is a 83 year old woman with a history of, chronic diastolic heart failure, hypertension, dyslipidemia, and mild pulmonary hypertension who presents for routine follow-up. PLAN AND RECOMMENDATIONS: 1. Chronic diastolic congestive heart failure (HCC) - ICD9: 428.32, 428.0, ICD10: I50.32 (primary diagnosis) Patient doing well on current diuretic therapy low-sodium diet 2. Nonrheumatic mitral valve regurgitation - ICD9: 424.0, ICD10: I34.0 2+ mitral regurgitation. 3. Thoracic aortic ectasia (HCC) - ICD9: 447.71, ICD10: I77.810 Unchanged on recent echocardiogram. Continue to follow clinically. 4. Hypertension, essential - ICD9: 401.9, ICD10: I10 Well-controlled on current regimen 5. Dyslipidemia - ICD9: 272.4, ICD10: E78.5 Maintained on rosuvastatin 10 mg daily. Fasting blood work from January 2024 was reviewed. LDL cholesterol 34 mg/dL 6. Atrial arrhythmia - ICD9: 427.9, ICD10: I49.8 Concerns for atrial fibrillation. I have fitted her with a Zio patch monitor in the office today. - OUTSIDE VENDOR CARDIAC OUTPATIENT EXTENDED RHYTHM RECORDING (WITHOUT TELEMETRY) 7. Pulmonary hypertension (HCC) - ICD9: 416.8, ICD10: I27.20 8. Palpitations - ICD9: 785.1, ICD10: R00.2 - OUTSIDE VENDOR CARDIAC OUTPATIENT EXTENDED RHYTHM RECORDING (WITHOUT TELEMETRY) Rasheed Barrios MD documented in this encounterC[facility]10-[facility]24 NoteHNO ID: [id number] Author: RASHEED BARRIOS MD Service: ? Author Type: Physician Type: Progress Notes Filed: 08/01/2024 11:30 Note Text: [facility] Cardiology ([facility]) [address] [facility] [id number] OUTPATIENT VISIT DATE 08/01/2024 PRIMARY CARE PHYSICIAN: Atul Harvey [address] [place] [address] HISTORY OF PRESENT ILLNESS: Ms. Crane is a 83 year old woman with history of mild pulmonary hypertension, essential hypertension, and rheumatoid arthritis who presents to the office for routine follow-up. Patient has noticed some palpitations but no heart racing. She continues to do extremely well from a functional standpoint. She has some shortness of breath on exertion noticed mostly by her children. She has not had lightheadedness, dizziness, or syncope. She has not had symptoms concerning for congestive heart failure including PND, orthopnea, or lower extremity edema. PAST MEDICAL HISTORY Diagnosis Date Advance care planning 04/01/2022 Daughter Noemy Arrhythmia Benign neoplasm of colon Chronic kidney disease 02/09/2015 Diverticulosis of colon (without mention of hemorrhage) IFG (impaired fasting glucose) 03/2022 Incisional hernia 07/06/2015 Internal hemorrhoids without mention of complication Rheumatoid arthritis(714.0) Rheumatoid arthritis(714.0) Sicca syndrome (HCC) Unspecified essential hypertension PAST SURGICAL HISTORY Procedure Laterality Date CATARACT EXTRACTION HX 10/12/2004 COLONOSCOPY FLX DX W/COLLJ SPEC WHEN PFRMD 09/30/2005 Colonoscopy COLONOSCOPY FLX DX W/COLLJ SPEC WHEN PFRMD 07/28/2016 Colonoscopy COLONOSCOPY SCREENING 09/30/2022 multiple adenomatous polyps, repeat in 3 yrs ESOPHAGOGASTRODUODENOSCOPY TRANSORAL DIAGNOSTIC 12/21/2014 EGD LAPAROSCOPY SURG CHOLECYSTECTOMY 02/20/2015 NEUROPLASTY AND/TRANSPOS MEDIAN NRV CARPAL TUNNE 02/12/2006 Carpal tunnel decomp Left NEUROPLASTY AND/TRANSPOS MEDIAN NRV CARPAL TUNNE 02/27/2006 Carpal tunnel decomp Right PAST SURGICAL HISTORY OF 10/12/2001 hemorrhoidectomy , bladder, and umbilical hernia repair PAST SURGICAL HISTORY OF 08/12/2006 bladder suspension REPAIR FIRST ABDOMINAL WALL HERNIA 07/06/2015 with mesh VAGINAL HYSTERECTOMY UTERUS 250 GM/< 10/12/1983 Hysterectomy, vaginal and bladder tacked up SOCIAL HISTORY Social History Tobacco Use Smoking status: Never Smokeless tobacco: Never Vaping Use Vaping status: Never Used Substance Use Topics Alcohol use: No Drug use: No FAMILY HISTORY Problem Relation Age of Onset Diabetes Mother Hypertension Mother Heart Father Diabetes Sister No Known Problems Sister No Known Problems Brother Heart Brother No Known Problems Brother ALLERGIES: ALLERGIES Allergen Reactions Floxin [Ofloxacin] Anaphylaxis Bumex [Bumetanide] Intolerance Hydrochlorothiazide Rash, Intolerance leucocytoclastic vasculitis Keflex [Cephalexin] Rash Naproxen Rash, Hives Norvasc [Amlodipine* Intolerance Penicillins Intolerance Rash Proctosol [Hydrocor* Intolerance Sulfa (Sulfonamide * Rash, GI Upset Colchicine Hives Minoxidil Other: See Comments facial hair MEDICATIONS: nystatin (NYSTOP) powder Apply 1 application to affected area four times a day as needed. Yeast infection/rash in groin and under breasts ketoconazole (NIZORAL) 2 % cream Apply to affected area two times a day. (Patient taking differently: Apply to affected area two times a day. PRN) levothyroxine (LEVOXYL) 25 mcg tablet Take 1 tablet by mouth once daily. Take on empty stomach. For Thyroid folic acid 1 mg tablet Take 2 tablets by mouth once daily. rosuvastatin (CRESTOR) 10 mg tablet Take 1 tablet by mouth once daily. triamcinolone acetonide (KENALOG) 0.1 % cream Apply 1 application to affected area two times a day as needed (rash). Apply sparingly to area for rash/itching. amLODIPine (NORVASC) 2.5 mg tablet Take 1 tablet by mouth once daily. allopurinol (ZYLOPRIM) 100 mg tablet Take 1 tablet by mouth once daily. atenolol (TENORMIN) 25 mg tablet Take 1 tablet by mouth two times a day. Cholecalciferol, Vitamin D3, 50 mcg (2,000 unit) cap Take 1 capsule by mouth once daily. dicyclomine (BENTYL) 10 mg capsule Take 1 capsule by mouth before meals and at bedtime. For diarrhea or abdominal cramping furosemide (LASIX) 40 mg tablet Take 1 tablet by mouth once daily. losartan (COZAAR) 100 mg tablet Take 1 tablet by mouth once daily. potassium chloride ER (KLOR-CON M10) 10 mEq tablet Take 1 tablet by mouth two times a day. cloNIDine HCl (CATAPRES) 0.2 mg tablet Take 1 tablet by mouth two times a day. cyanocobalamin (VITAMIN B-12) 1,000 mcg tab Take 1,000 mcg by mouth once daily. triamcinolone acetonide (KENALOG) 0.1 % cream Apply 1 application to affected area twice daily. On rash, Apply sparingl (more content not included)... [facility]10-11-2024 NoteHNO ID: [id number] Author: MITESH MCCABE RN Service: ? Author Type: Registered Nurse Type: Progress Notes Filed: 07/22/2024 09:43 Note Text: [facility] Telephonic Outreach Provider Meghana/LAZARUS Heartchf ckd Contacted for: Routine Telephonic Outreach Contact made with patient: Yes Patient identified by name and date of . Discussed care with patient Are you experiencing any new or worsening symptoms you need to talk about today? No Disease Specific Do you have new or worsening shortness of breath with activity? No Do you have new or worsening trouble breathing while lying flat? No Do you have new or worsening swelling of legs, feet or ankles? No Based on assessment expert, the following disposition is advised: No symptoms or symptoms present, not severe. Routed to: No Action Needed NALINI Education Provided this Outreach: No Mitesh Mccabe RN July 22, 2024 9:41 [facility]10-11-2024 History of Present illness Narrative* Mitesh Mccabe RN - 07/22/2024 9:37 AM EDT [facility] Telephonic Outreach Provider Meghana/LAZARUS Heartchf ckd Contacted for: Routine Telephonic Outreach Contact made with patient: Yes Patient identified by name and date of . Discussed care with patient Are you experiencing any new or worsening symptoms you need to talk about today? No Disease Specific Do you have new or worsening shortness of breath with activity? No Do you have new or worsening trouble breathing while lying flat? No Do you have new or worsening swelling of legs, feet or ankles? No Based on assessment expert, the following disposition is advised: No symptoms or symptoms present, not severe. Routed to: No Action Needed NALINI Education Provided this Outreach: No Mitesh Mccabe RN July 22, 2024 9:41 AM * Mitesh Mccabe RN - 07/21/2024 11:40 AM EDT [facility] Telephonic Outreach Provider Meghana/JOHNNAI -chf, ckd Contacted for: Routine Telephonic Outreach Contact made with patient: No, left message. Mitesh Mccabe RN July 21, 2024 11:41 AM documented in this encounterCleveland Clinic [facility]10-10-2024 NoteHNO ID: [id number] Author: MITESH MCCABE RN Service: ? Author Type: Registered Nurse Type: Progress Notes Filed: 07/22/2024 09:43 Note Text: [facility] Telephonic Outreach Provider Mgehana/LAZARUS Heartchf, ckd Contacted for: Routine Telephonic Outreach Contact made with patient: No, left message. Mitesh Mccabe RN July 21, 2024 11:41 [facility]10-10-2024 NotePatient Outreach ([facility]) MARY CRANE ([id number]) 1940 F TXT Date Time Provider Department 07/21/24 MITESH MCCABE During your visit today, we recorded the following information about you: Mitesh Mccabe RN 07/22/2024 9:43 AM Signed CD Telephonic Outreach Provider Meghana/LAZARUS Heartchf, ckd Contacted for: Routine Telephonic Outreach Contact made with patient: No, left message. Mitesh Mccabe RN July 21, 2024 11:41 AM Mitesh Mccabe RN 07/22/2024 9:43 AM Signed [facility] Telephonic Outreach Provider Meghana/LAZARUS Heartchf, ckd Contacted for: Routine Telephonic Outreach Contact made with patient: Yes Patient identified by name and date of . Discussed care with patient Are you experiencing any new or worsening symptoms you need to talk about today? No Disease Specific Do you have new or worsening shortness of breath with activity? No Do you have new or worsening trouble breathing while lying flat? No Do you have new or worsening swelling of legs, feet or ankles? No Based on assessment expert, the following disposition is advised: No symptoms or symptoms present, not severe. Routed to: No Action Needed NALINI Education Provided this Outreach: No Mitesh Mccabe RN July 22, 2024 9:41 AM Allergies As of Date: 07/21/2024 Noted Allergy Reaction FLOXIN (OFLOXACIN) 09/10/2005 10 - Anaphylaxis BUMEX (BUMETANIDE) 09/10/2005 5 - Intolerance HYDROCHLOROTHIAZIDE 09/10/2005 2 - Rash 5 - Intolerance Comments: leucocytoclastic vasculitis KEFLEX (CEPHALEXIN) 09/10/2005 2 - Rash NAPROXEN 09/10/2005 2 - Rash 4 - Hives NORVASC (AMLODIPINE BESYLATE) 09/10/2005 5 - Intolerance PENICILLINS 09/10/2005 5 - Intolerance Comments: Rash PROCTOSOL (HYDROCORTISONE ACETATE)09/10/2005 5 - Intolerance SULFA (SULFONAMIDE ANTIBIOTICS) 09/10/2005 2 - Rash 8 - GI Upset COLCHICINE 10/17/2005 4 - Hives MINOXIDIL 03/24/2011 14 - Other: See Comments Comments: facial hair Date Reviewed: 05/20/2024 Reviewed by: Milana Armijo APRN.GROCERY BAGGER - Fully Assessed Reason for Visit: community monitoring outreach [Other] Cmt: Monthly cdm call Prescriptions as of 07/22/2024 - nystatin (NYSTOP) powder Apply 1 application to affected area four times a day as needed. Yeast infection/rash in groin and under breasts - ketoconazole (NIZORAL) 2 % cream Apply to affected area two times a day. - levothyroxine (LEVOXYL) 25 mcg tablet Take 1 tablet by mouth once daily. Take on empty stomach. For Thyroid - folic acid 1 mg tablet Take 2 tablets by mouth once daily. - rosuvastatin (CRESTOR) 10 mg tablet Take 1 tablet by mouth once daily. - triamcinolone acetonide (KENALOG) 0.1 % cream Apply 1 application to affected area two times a day as needed (rash). Apply sparingly to area for rash/itching. - amLODIPine (NORVASC) 2.5 mg tablet Take 1 tablet by mouth once daily. - allopurinol (ZYLOPRIM) 100 mg tablet Take 1 tablet by mouth once daily. - atenolol (TENORMIN) 25 mg tablet Take 1 tablet by mouth two times a day. - Cholecalciferol, Vitamin D3, 50 mcg (2,000 unit) cap Take 1 capsule by mouth once daily. - dicyclomine (BENTYL) 10 mg capsule Take 1 capsule by mouth before meals and at bedtime. For diarrhea or abdominal cramping - furosemide (LASIX) 40 mg tablet Take 1 tablet by mouth once daily. - losartan (COZAAR) 100 mg tablet Take 1 tablet by mouth once daily. - potassium chloride ER (KLOR-CON M10) 10 mEq tablet Take 1 tablet by mouth two times a day. - cloNIDine HCl (CATAPRES) 0.2 mg tablet Take 1 tablet by mouth two times a day. - cyanocobalamin (VITAMIN B-12) 1,000 mcg tab Take 1,000 mcg by mouth once daily. - triamcinolone acetonide (KENALOG) 0.1 % cream Apply 1 application to affected area twice daily. On rash, Apply sparingly to area for rash/itching. - vit A/vit C/vit E/zinc/copper (OCUVITE PRESERVISION ORAL) Take by mouth twice daily. - apremilast (OTEZLA) 30 mg tablet Take 30 mg by mouth twice daily. - hydrocortisone probutate 0.1 % crea Apply to affected area once daily as needed. - loratadine (CLARITIN) 10 mg tablet Take 10 mg by mouth once daily. Takes daily as needed - acetaminophen (TYLENOL) 325 mg tablet Take 650 mg by mouth every 6 hours as needed. Problem List As Of Date 07/21/2024 Noted Resolved Benign neoplasm of colon [D12.6] 09/30/2005 02/24/2020 DIVERTICULOSIS OF COLON W/O BLEED [K57.30] 09/30/2005 Internal hemorrhoids without mention of complic*09/30/2005 02/24/2020 CARPAL TUNNEL SYNDROME [G56.00] 10/17/2005 03/12/2006 LOC PRIM OSTEOARTH-HAND [M19.049] 10/17/2005 Other tenosynovitis of hand and wrist [M65.849,*10/17/2005 02/24/2020 Follow-up examination, following unspecified lindsay*02/26/2006 02/08/2015 Rheumatoid arthritis involving multiple sites w*02/27/2006 CARPAL TUNNEL SYNDROME [G56.00] 03/17/2006 HYPERTENSION NOS [I10] 05/30/2014 Sicca syndrome (more content not included)...[facility] 06-28-2024 NoteHNO ID: [id number] Author: MITESH MCCABE RN Service: ? Author Type: Registered Nurse Type: Progress Notes Filed: 06/28/2024 09:54 Note Text: CD Telephonic Outreach Provider Action/FYI -ckd, chf ADLs/fall risk/SDOH updated 03/04/24 Contacted for: Routine Telephonic Outreach Contact made with patient: No, left message. Mitesh Mccabe RN June 28, 2024 9:54 [facility]09-17-2024 History of Present illness Narrative* Mitesh Mccabe RN - 06/28/2024 9:53 AM EDT [facility] Telephonic Outreach Provider Action/FYI -ckd, chf ADLs/fall risk/SDOH updated 03/04/24 Contacted for: Routine Telephonic Outreach Contact made with patient: No, left message. Mitesh Mccabe RN June 28, 2024 9:54 AM * Mitesh Mccabe RN - 06/27/2024 11:46 AM EDT [facility] Telephonic Outreach Provider Action/FYI -ckd, chf ADLs/fall risk/SDOH updated 03/04/24 Contacted for: Routine Telephonic Outreach Contact made with patient: No, left message. Mitesh Mccabe RN June 27, 2024 11:47 AM documented in this encounterC[facility]09-16-2024 NoteHNO ID: [id number] Author: MITESH MCCABE RN Service: ? Author Type: Registered Nurse Type: Progress Notes Filed: 06/28/2024 09:54 Note Text: [facility] Telephonic Outreach Provider Action/FYI -ckd, chf ADLs/fall risk/SDOH updated 03/04/24 Contacted for: Routine Telephonic Outreach Contact made with patient: No, left message. Mitesh Mccabe RN June 27, 2024 11:47 [facility]09-16-2024 NotePatient Outreach ([facility]) MARY CRANE ([id number]) 1940 F TXT Date Time Provider Department 06/27/24 MITESH MCCABE [facility] During your visit today, we recorded the following information about you: Mitesh Mccabe RN 06/28/2024 9:54 AM Signed [facility] Telephonic Outreach Provider Action/FYI -ckd, chf ADLs/fall risk/SDOH updated 03/04/24 Contacted for: Routine Telephonic Outreach Contact made with patient: No, left message. Mitesh Mccabe RN June 27, 2024 11:47 AM Mitesh Mccabe RN 06/28/2024 9:54 AM Signed [facility] Telephonic Outreach Provider Action/FYI -ckd, chf ADLs/fall risk/SDOH updated 03/04/24 Contacted for: Routine Telephonic Outreach Contact made with patient: No, left message. Mitesh Mccabe RN June 28, 2024 9:54 AM Allergies As of Date: 06/27/2024 Noted Allergy Reaction FLOXIN (OFLOXACIN) 09/10/2005 10 - Anaphylaxis BUMEX (BUMETANIDE) 09/10/2005 5 - Intolerance HYDROCHLOROTHIAZIDE 09/10/2005 2 - Rash 5 - Intolerance Comments: leucocytoclastic vasculitis KEFLEX (CEPHALEXIN) 09/10/2005 2 - Rash NAPROXEN 09/10/2005 2 - Rash 4 - Hives NORVASC (AMLODIPINE BESYLATE) 09/10/2005 5 - Intolerance PENICILLINS 09/10/2005 5 - Intolerance Comments: Rash PROCTOSOL (HYDROCORTISONE ACETATE)09/10/2005 5 - Intolerance SULFA (SULFONAMIDE ANTIBIOTICS) 09/10/2005 2 - Rash 8 - GI Upset COLCHICINE 10/17/2005 4 - Hives MINOXIDIL 03/24/2011 14 - Other: See Comments Comments: facial hair Date Reviewed: 05/20/2024 Reviewed by: Milana Armijo APRN.GROCERY BAGGER - Fully Assessed Reason for Visit: community monitoring outreach [Other] Cmt: Monthly cdm call Prescriptions as of 06/28/2024 - nystatin (NYSTOP) powder Apply 1 application to affected area four times a day as needed. Yeast infection/rash in groin and under breasts - ketoconazole (NIZORAL) 2 % cream Apply to affected area two times a day. - levothyroxine (LEVOXYL) 25 mcg tablet Take 1 tablet by mouth once daily. Take on empty stomach. For Thyroid - folic acid 1 mg tablet Take 2 tablets by mouth once daily. - rosuvastatin (CRESTOR) 10 mg tablet Take 1 tablet by mouth once daily. - triamcinolone acetonide (KENALOG) 0.1 % cream Apply 1 application to affected area two times a day as needed (rash). Apply sparingly to area for rash/itching. - amLODIPine (NORVASC) 2.5 mg tablet Take 1 tablet by mouth once daily. - allopurinol (ZYLOPRIM) 100 mg tablet Take 1 tablet by mouth once daily. - atenolol (TENORMIN) 25 mg tablet Take 1 tablet by mouth two times a day. - Cholecalciferol, Vitamin D3, 50 mcg (2,000 unit) cap Take 1 capsule by mouth once daily. - dicyclomine (BENTYL) 10 mg capsule Take 1 capsule by mouth before meals and at bedtime. For diarrhea or abdominal cramping - furosemide (LASIX) 40 mg tablet Take 1 tablet by mouth once daily. - losartan (COZAAR) 100 mg tablet Take 1 tablet by mouth once daily. - potassium chloride ER (KLOR-CON M10) 10 mEq tablet Take 1 tablet by mouth two times a day. - cloNIDine HCl (CATAPRES) 0.2 mg tablet Take 1 tablet by mouth two times a day. - cyanocobalamin (VITAMIN B-12) 1,000 mcg tab Take 1,000 mcg by mouth once daily. - triamcinolone acetonide (KENALOG) 0.1 % cream Apply 1 application to affected area twice daily. On rash, Apply sparingly to area for rash/itching. - vit A/vit C/vit E/zinc/copper (OCUVITE PRESERVISION ORAL) Take by mouth twice daily. - apremilast (OTEZLA) 30 mg tablet Take 30 mg by mouth twice daily. - hydrocortisone probutate 0.1 % crea Apply to affected area once daily as needed. - loratadine (CLARITIN) 10 mg tablet Take 10 mg by mouth once daily. Takes daily as needed - acetaminophen (TYLENOL) 325 mg tablet Take 650 mg by mouth every 6 hours as needed. Facility-Administered Medications as of 06/28/2024 - perflutren lipid microspheres 1.3 mL in NaCl (PF) 0.9% 10 mL injection (DEFINITY) - sodium chloride 0.9 % (flush) 10 mL (BD POSIFLUSH) Problem List As Of Date 06/27/2024 Noted Resolved Benign neoplasm of colon [D12.6] 09/30/2005 02/24/2020 DIVERTICULOSIS OF COLON W/O BLEED [K57.30] 09/30/2005 Internal hemorrhoids without mention of complic*09/30/2005 02/24/2020 CARPAL TUNNEL SYNDROME [G56.00] 10/17/2005 03/12/2006 LOC PRIM OSTEOARTH-HAND [M19.049] 10/17/2005 Other tenosynovitis of hand and wrist [M65.849,*10/17/2005 02/24/2020 Follow-up examination, following unspecified lindsay*02/26/2006 02/08/2015 Rheumatoid arthritis involving multiple sites w*02/27/2006 CARPAL TUNNEL SYNDROME [G56.00] 03/17/2006 HYPERTENSION NOS [I10] 05/30/2014 Sicca syndrome (HCC) [M35.00] 11/29/2021 Sialoadenitis [K11.20] 09/04/2008 02/24/2020 Gout [M10.9] 11/18/2010 Hypertension [I10] 12/18/2010 05/29/2016 Pulmonary hypertension [I27.20] 08/27/2011 Sjogren's syndrome [M35.00] 03/04/2013 Dysphagia, unspecified(787.20) [R13.10] 12/21/2014 12/22/19 (more content not included)...[facility]08-20-20[facility] History of Present illness Narrative* Mitesh Mccabe RN - 05/31/2024 11:02 AM EDT [facility] Telephonic Outreach Provider Action/FYI -chf, ckd ADLs/fall risk/SDOH updated 05/03/24 Contacted for: Routine Telephonic Outreach Contact made with patient: Yes Patient identified by name and date of . Discussed care with patient Are you experiencing any new or worsening symptoms you need to talk about today? No Disease Specific Do you check your blood pressure at home? No Do you have new or worsening shortness of breath with activity? No Do you have new or worsening trouble breathing while lying flat? No Do you have new or worsening swelling of legs, feet or ankles? No Do you feel like you are dehydrated for any reason, including not being able to eat or drink normally, or having less urine/much darker urine than normal for you? No Do you check your daily weight at home? No Based on assessment expert, the following disposition is advised: No symptoms or symptoms present, not severe. Routed to: No Action Needed NALINI Education Provided this Outreach: No Mitesh Mccabe RN May 31, 2024 11:04 AM * Mitesh Mccabe RN - 05/30/2024 2:29 PM EDT [facility] Telephonic Outreach Provider Action/FYI -chf, ckd ADLs/fall risk/SDOH updated 03/04/24 Contacted for: Routine Telephonic Outreach Contact made with patient: No, left message. Mitesh Mccabe RN May 30, 2024 2:30 PM documented in this encounterCleveland [facility]08-15-[facility]24 History of Present illness Narrative* Annie Iniguez RDMS - 05/26/2024 9:15 AM EDT Radiology Service Progress Note PATIENT NAME: Mary Crane DATE OF SERVICE: May 26, 2024 TIME: 10:30 AM PATIENT IDENTITY VERIFICATION COMPLETED USING TWO (2) IDENTIFIERS: Name and Date of confirmedby patient verbally. FALL SCREENING: Has the patient had 2 falls in the last year or 1 fall with injury or currently using an Ambulatory Assistive Device (Walker, Cane, Wheelchair, Crutches, etc.)? No PATIENT GENDER DATA: Female. status: : No status: NO. PATIENT RELEVANT IMPLANT DATA REVIEWED: Not Applicable PATIENT PRESENTS WITH AN IMPLANTABLE OR ATTACHED SCIENTIFIC TECHNICAL WRITER: No RADIOLOGY DEPARTMENT: Ultrasound PERIPHERAL IV DATA: Not applicable SIGNED BY: Annie Iniguez RDMS May 26, 2024 10:30 AM documented in this encounterCleveland Clinic [facility]08-09-2024 History of Present illness Narrative* Milana Armijo APRN.CNP - 05/20/2024 10:00 AM EDT Chief Complaint Patient presents with: Rash: Under denton breast HPI Mary Crane is a 83 year old female who presents here today for Above Complaints. Mary is an established patient of Dr. Harvey, DO and myself. Concerns today.. Rash -- Rash under bilateral breasts x few weeks. Will sometimes get this yeast rash in the summertime. Did not have last summer but has returned again now. Used ketoconazole ointment on this in the past that worked well. Wearing bra makes it rub more and irritated. No other concerns or complaints. Past medical history, appointments, medications, allergies reviewed. Previous Medical History PAST MEDICAL HISTORY 04/01/2022: Advance care planning Comment: Daughter Noemy No date: Arrhythmia No date: Benign neoplasm of colon 02/09/2015: Chronic kidney disease No date: Diverticulosis of colon (without mention of hemorrhage) 03/2022: IFG (impaired fasting glucose) 07/06/2015: Incisional hernia No date: Internal hemorrhoids without mention of complication No date: Rheumatoid arthritis(714.0) No date: Rheumatoid arthritis(714.0) No date: Sicca syndrome (HCC) No date: Unspecified essential hypertension Previous Surgical History PAST SURGICAL HISTORY 10/12/2004: CATARACT EXTRACTION HX 09/30/2005: COLONOSCOPY FLX DX W/COLLJ SPEC WHEN PFRMD Comment: Colonoscopy 07/28/2016: COLONOSCOPY FLX DX W/COLLJ SPEC WHEN PFRMD Comment: Colonoscopy 09/30/2022: COLONOSCOPY SCREENING Comment: multiple adenomatous polyps, repeat in 3 yrs 12/21/2014: ESOPHAGOGASTRODUODENOSCOPY TRANSORAL DIAGNOSTIC Comment: EGD 02/20/2015: LAPAROSCOPY SURG CHOLECYSTECTOMY 02/12/2006: NEUROPLASTY &/TRANSPOS MEDIAN NRV CARPAL TUNNE Comment: Carpal tunnel decomp Left 02/27/2006: NEUROPLASTY &/TRANSPOS MEDIAN NRV CARPAL TUNNE Comment: Carpal tunnel decomp Right 10/12/2001: PAST SURGICAL HISTORY OF Comment: hemorrhoidectomy , bladder, and umbilical hernia repair 08/12/2006: PAST SURGICAL HISTORY OF Comment: bladder suspension 07/06/2015: REPAIR FIRST ABDOMINAL WALL HERNIA Comment: with mesh 10/12/1983: VAGINAL HYSTERECTOMY UTERUS 250 GM/< Comment: Hysterectomy, vaginal and bladder tacked up Family History FAMILY HISTORY Problem Relation Age of Onset Diabetes Mother Hypertension Mother Heart Father Diabetes Sister No Known Problems Sister No Known Problems Brother Heart Brother No Known Problems Brother Patient Allergies ALLERGIES Allergen Reactions Floxin [Ofloxacin] Anaphylaxis Bumex [Bumetanide] Intolerance Hydrochlorothiazide Rash, Intolerance leucocytoclastic vasculitis Keflex [Cephalexin] Rash Naproxen Rash, Hives Norvasc [Amlodipine* Intolerance Penicillins Intolerance Rash Proctosol [Hydrocor* Intolerance Sulfa (Sulfonamide * Rash, GI Upset Colchicine Hives Minoxidil Other: See Comments facial hair Current Medications Current Outpatient Medications on File Prior to Visit Medication Sig levothyroxine (LEVOXYL) 25 mcg tablet Take 1 tablet by mouth once daily. Take on empty stomach. ForThyroid folic acid 1 mg tablet Take 2 tablets by mouth once daily. rosuvastatin (CRESTOR) 10 mg tablet Take 1 tablet by mouth once daily. triamcinolone acetonide (KENALOG) 0.1 % cream Apply 1 application to affected area two times a day as needed (rash). Apply sparingly to area for rash/itching. amLODIPine (NORVASC) 2.5 mg tablet Take 1 tablet by mouth once daily. allopurinol (ZYLOPRIM) 100 mg tablet Take 1 tablet by mouth once daily. atenolol (TENORMIN) 25 mg tablet Take 1 tablet by mouth two times a day. Cholecalciferol, Vitamin D3, 50 mcg (2,000 unit) cap Take 1 capsule by mouth once daily. dicyclomine (BENTYL) 10 mg capsule Take 1 capsule by mouth before meals and at bedtime. For diarrhea or abdominal cramping furosemide (LASIX) 40 mg tablet Take 1 tablet by mouth once daily. losartan (COZAAR) 100 mg tablet Take 1 tablet by mouth once daily. potassium chloride ER (KLOR-CON M10) 10 mEq tablet Take 1 tablet by mouth two times a day. cloNIDine HCl (CATAPRES) 0.2 mg tablet Take 1 tablet by mouth two times a day. cyanocobalamin (VITAMIN B-12) 1,000 mcg tab Take 1,000 mcg by mouth once daily. triamcinolone acetonide (KENALOG) 0.1 % cream Apply 1 application to affected area twice daily. On rash, Apply sparingly to area for rash/itching. (Patient taking differently: Apply 1 application to affected area two times a day. On rash, Apply sparingly to area for rash/itching. Uses as needed) vit A/vit C/vit E/zinc/copper (OCUVITE PRESERVISION ORAL) Take by mouth twice daily. nystatin (NYSTOP) powder Apply 1 application to affected area four times daily as needed. Yeast infection/rash in groin and under breasts apremilast (OTEZLA) 30 mg tablet Take 30 mg by mouth twice daily. hydrocortisone probutate 0.1 % crea Apply to affected area once daily as needed. loratadine (CLARITIN) 10 mg tablet Take 10 mg by mouth once daily. Takes daily as needed acetaminophen (TYLENOL) 325 mg tablet Take 650 mg by mouth every 6 hours as needed. Current Facility-Administered Medications on File Prior to Visit Medication perflutren lipid microspheres 1.3 mL in NaCl (PF) 0.9% 10 mL injection (DEFINITY) sodium chloride 0.9 % (flush) 10 mL (BD POSIFLUSH) Social History Social History Tobacco Use Smoking status: Never Smokeless tobacco: Never Vaping Use Vaping Use: Never used Substance Use Topics Alcohol use: No Drug use: No REVIEW OF SYSTEMS: as above Reviewed relevant PMHx, PSHx, Social Hx, current medications and allergies. Review of Symptoms REVIEW OF SYSTEMS See HPI. EXAM: BP 114/62 (BP Site: Left Arm, BP Position: Sitting, BP Cuff Size: Regular Adult) Pulse 60 Wt 75kg (165 lb 5.5 oz) SpO2 96% BMI 29.29 kg/m General Appearance: Well appearing, alert, in no acute distress, well-hydrated, well nourished. Skin: Skin color, texture, turgor normal, no suspicious rashes or lesions, Positives: excoriation, erythema, and yeast rash below bilateral breast. Health Maintenance List Cervical Cancer Screening due on 12/16/2006 DTaP,Tdap,Td Vaccine(3 - Td or Tdap) due on 08/03/2024 RSV Vaccine(1 - 1-dose 60+ series) due on 08/03/2024 Covid-19 Vaccine( - 2022- season) due on 10/23/2024 Influenza Vaccine(1) due on 06/12/2024 Depression Screening due on 02/16/2025 Anxiety Screening due on 02/16/2025 Colorectal Cancer Screening due on 09/30/2025 Diabetes Screening due on 02/08/2027 Bone Density Screening Completed Shingrix Vaccine Completed Pneumococcal Vaccine: 65+ Completed Advance Directive Discussion Discontinued ASSESSMENT/PLAN: 1. Yeast dermatitis - ICD9: 112.3, ICD10: B37.2 Ketoconazole cream and nystatin powder 2-3 x per day. If no improvement within 1-2 weeks, we discussed oral medication. Reach out to office if no improvement. - NYSTATIN 100,000 UNIT/GRAM TOPICAL POWDER - KETOCONAZOLE 2 % TOPICAL CREAM RTO as needed. Prescription instructions reviewed with patient as applicable. Potential red flag symptoms discussed with the patient. Reviewed appropriate action plan to take if red flag symptoms occur. Patient agreeable to treatment plan. Milana Vegas APRN.FELICIA [address] [place] [address] documented in this encounterC[facility] Telephone encounter Note * Telephone Encounter - Rabia Spangler - 05/10/2024 8:52 AM EDT Prescription Refill Information The patient has been identified by name and date of : Yes Caregiver verified no other encounters exist for this prescription request: Yes Caregiver confirmed with patient/requestor that no other refills are due, in the near future, with this provider at this time: Yes The last office visit in the department: 03-18-24 Does the patient have a future office visit with this provider/department: Yes Requested Prescriptions Pending Prescriptions Disp Refills levothyroxine (LEVOXYL) 25 mcg tablet 90 tablet 2 Sig: Take 1 tablet by mouth once daily. Take on empty stomach. For Thyroid Rabia Rodriguez May 10, 2024 8:53 AM [facility]07-30-[facility] Miscellaneous Notes* Telephone Encounter - Rabia Spangler - 05/10/2024 8:52 AM EDT Prescription Refill Information The patient has been identified by name and date of : Yes Caregiver verified no other encounters exist for this prescription request: Yes Caregiver confirmed with patient/requestor that no other refills are due, in the near future, with this provider at this time: Yes The last office visit in the department: 03-18-24 Does the patient have a future office visit with this provider/department: Yes Requested Prescriptions Pending Prescriptions Disp Refills levothyroxine (LEVOXYL) 25 mcg tablet 90 tablet 2 Sig: Take 1 tablet by mouth once daily. Take on empty stomach. For Thyroid Rabia Yusuf Rodriguez May 10, 2024 8:53 AM documented in this encounterC[facility]07-[facility] Telephone encounter Note * Telephone Encounter - Tracy Rawls RN - 05/04/2024 1:43 PM EDT Patient called back and the below results given. Patient denies any questions at this time. Trayc Rawls RN [facility]07-24-[facility]24 Miscellaneous Notes* Telephone Encounter - Tracy Rawls RN - 05/04/2024 1:43 PM EDT Patient called back and the below results given. Patient denies any questions at this time. Tracy Rawls RN * Telephone Encounter - Allyssa Craig LPN - 05/04/2024 8:06 AM EDT Left message for Ms. Crane to call [facility] for test results. [facility] phone number provided. Allyssa Craig LPN * Telephone Encounter - Allyssa Craig LPN - 05/04/2024 6:57 AM EDT ----- Message from Rasheed Barrios MD sent at 05/03/2024 5:32 PM EDT ----- Please call the patient to let him know that his echo looked good documented in this encounterC[facility]07-[facility]24 Telephone encounter Note * Telephone Encounter - Allyssa Craig LPN - 05/04/2024 8:06 AM EDT Left message for Ms. Crane to call [facility] for test results. [facility] phone number provided. Allyssa Craig LPN [facility] Telephone encounter Note* Telephone Encounter - Allyssa Craig LPN - 05/04/2024 6:57 AM EDT ----- Message from Rasheed Barrios MD sent at 05/03/2024 5:32 PM EDT ----- Please call the patient to let him know that his echo looked good [facility] History of Present illness Narrative* Mitesh Mccabe RN - 05/03/2024 10:48 AM EDT [facility] Telephonic Outreach Provider Action/FYI -chf, ckd Contacted for: Routine Telephonic Outreach Contact made with patient: Yes Patient identified by name and date of . Discussed care with patient Are you experiencing any new or worsening symptoms you need to talk about today? No Disease Specific Do you check your blood pressure at home? No Do you have new or worsening shortness of breath with activity? No, staying indoors as the humiditycan make it harder to breath Do you have new or worsening trouble breathing while lying flat? No Do you have new or worsening swelling of legs, feet or ankles? No Do you feel like you are dehydrated for any reason, including not being able to eat or drink normally, or having less urine/much darker urine than normal for you? No Based on assessment expert, the following disposition is advised: No symptoms or symptoms present, not severe. Routed to: No Action Needed NALINI Education Provided this Outreach: No Mitesh Mccabe RN May 03, 2024 10:57 AM * Mitesh Mccabe RN - 05/02/2024 3:53 PM EDT [facility] Telephonic Outreach Provider Action/FYI -chf, ckd ADLs/fall risk/SDOH updated 03/04/24 Contacted for: Routine Telephonic Outreach Contact made with patient: No, left message. Mitesh Mccabe RN May 02, 2024 3:54 PM documented in this encounterC[facility]06-27-[facility] History of Present illness Narrative* Mitesh Mccabe RN - 04/07/2024 10:58 AM EDT [facility] Telephonic Outreach Provider Action/FYI -chf, ckd ADLs/fall risk/SDOH updated 03/04/24 Contacted for: Routine Telephonic Outreach Contact made with patient: No, left message. Mitesh Mccabe RN April 07, 2024 10:59 AM * Mitesh Mccabe RN - 04/06/2024 1:37 PM EDT [facility] Telephonic Outreach Provider Action/FYI -chf, ckd Contacted for: Routine Telephonic Outreach Contact made with patient: No, left message. Mitesh Mccabe RN April 06, 2024 1:38 PM documented in this encounterC[facility]06-07-[facility] History of Present illness Narrative* Catalina Jauregui APRN.FELICIA - 03/18/2024 8:35 AM EDT Chief Complaint Patient presents with: Cellulitis: Left arm HPI Mary Crane is a 83 year old female who presents here today for Above Complaints.. Per visit with myself 2 days ago on 03/16/2024: Chief Complaint Patient presents with: Insect Bite: Wasp sting yesterday left arm swollen , painful and itchy. HPI Mary Crane is a 83 year old female who presents here today for Above Complaints.. Per nurse triage note today 03/16/2024: Christel Wagner RN AB 03/16/24 11:07 AM Note Protocol recommends see provider in 24 hours. Pt is scheduled to see Catalina Jauregui VARIETY SAW OPERATOR at 120 pm.Care plan reviewed with patient. Patient voices understanding. Advised patient that if symptoms getworse to be evaluated in Urgent Care or ER. Reason for Disposition [1] Red or very tender (to touch) area AND [2] started over 24 hours after the bite Answer Assessment - Initial Assessment Questions 1. TYPE of INSECT: The insect was a wasp. 2. ONSET: She got bitten yesterday around 230-3 pm. 3. LOCATION: The insect bite is located about 2 inches above the wrist on the L arm more on the forearm side. 4. REDNESS: The area closer to the bite is more red and the area further from the bite is more pink. 5. PAIN: Pt reports the pain is a 10/10 and it is an itch. 6. ITCHING: - MILD: doesn't interfere with normal activities - MODERATE-SEVERE: interferes with work, school, sleep, or other activities Pt reports the itching is a 10/10, it's a painful itch and she could itch it now. It kept her awakelast night. 7. SWELLING: The swelling goes from the thumb and wrist up to elbow.8. OTHER SYMPTOMS: Pt denies difficulty breathing or hives. 9. : Postmenopausal. Protocols used: Insect [id number] Currently: Took Tylenol last evening which didn't help at all. Tried some ice packs which helped a bit. Itchy and hurts both. Was previously prescribed a cream by Dr. Harvey PCP, triamcinolone, which she has been putting on the area with mild improvement in sx. Denies known fevers. No difficulty breathing or swallowing. General Appearance: Well appearing, alert, in no acute distress, well-hydrated, well nourished.. Heart: RRR without murmur, gallop, or rubs. No ectopy. Extremities: left lower arm with significant swelling and redness, tender to the touch, warm to thetouch, extends from lower palm to just above inner elbow, area defined with skin pen. Psychiatric: pleasant, cooperative. ASSESSMENT/PLAN: 1. Wasp sting, accidental or unintentional, initial encounter - ICD9: 989.5, E905.3, ICD10: T63.461A (primary diagnosis) Defined area of cellulitis with skin pen. Discussed with daughter and patient s/s, red flags to look for. Ok to continue prn Tylenol. Ok to continue icing prn. Follow up in the office in 2 days for reassessment. - DOXYCYCLINE HYCLATE 100 MG TABLET - METHYLPREDNISOLONE 4 MG TABLETS IN A DOSE PACK 2. Cellulitis of left upper extremity - ICD9: 682.3, ICD10: L03.114 Defined area of cellulitis with skin pen. Discussed with daughter and patient s/s, red flags to look for. Ok to continue prn Tylenol. Ok to continue icing prn. Follow up in the office in 2 days for reassessment. - DOXYCYCLINE HYCLATE 100 MG TABLET - METHYLPREDNISOLONE 4 MG TABLETS IN A DOSE PACK Catalina Jauregui APRN.GROCERY BAGGER Currently: Has had significant improvement with her left arm wasp sting, cellulitis. Minimally reddened, only a little swelling now. Slight warmth. Has been taking the Medrol Dose Janeth and doxycycline. Frequently icing area as well as triamcinolone cream for the itching. Elevating as much as possible. Worst sx overall is the itching. Denies fever. Past medical history, appointments, medications, allergies reviewed. Previous Medical History PAST MEDICAL HISTORY Diagnosis Date Advance care planning 04/01/2022 Daughter Noemy Arrhythmia Benign neoplasm of colon Chronic kidney disease 02/09/2015 Diverticulosis of colon (without mention of hemorrhage) IFG (impaired fasting glucose) 03/2022 Incisional hernia 07/06/2015 Internal hemorrhoids without mention of complication Rheumatoid arthritis(714.0) Rheumatoid arthritis(714.0) Sicca syndrome (HCC) Unspecified essential hypertension Previous Surgical History PAST SURGICAL HISTORY Procedure Laterality Date CATARACT EXTRACTION HX 10/12/2004 COLONOSCOPY FLX DX W/COLLJ SPEC WHEN PFRMD 09/30/2005 Colonoscopy COLONOSCOPY FLX DX W/COLLJ SPEC WHEN PFRMD 07/28/2016 Colonoscopy COLONOSCOPY SCREENING 09/30/2022 multiple adenomatous polyps, repeat in 3 yrs ESOPHAGOGASTRODUODENOSCOPY TRANSORAL DIAGNOSTIC 12/21/2014 EGD LAPAROSCOPY SURG CHOLECYSTECTOMY 02/20/2015 NEUROPLASTY &/TRANSPOS MEDIAN NRV CARPAL TUNNE 02/12/2006 Carpal tunnel decomp Left NEUROPLASTY &/TRANSPOS MEDIAN NRV CARPAL TUNNE 02/27/2006 Carpal tunnel decomp Right PAST SURGICAL HISTORY OF 10/12/2001 hemorrhoidectomy , bladder, and umbilical hernia repair PAST SURGICAL HISTORY OF 08/12/2006 bladder suspension REPAIR FIRST ABDOMINAL WALL HERNIA 07/06/2015 with mesh VAGINAL HYSTERECTOMY UTERUS 250 GM/< 10/12/1983 Hysterectomy, vaginal and bladder tacked up Family History FAMILY HISTORY Problem Relation Age of Onset Diabetes Mother Hypertension Mother Heart Father Diabetes Sister No Known Problems Sister No Known Problems Brother Heart Brother No Known Problems Brother Patient Allergies ALLERGIES Allergen Reactions Floxin [Ofloxacin] Anaphylaxis Bumex [Bumetanide] Intolerance Hydrochlorothiazide Rash, Intolerance leucocytoclastic vasculitis Keflex [Cephalexin] Rash Naproxen Rash, Hives Norvasc [Amlodipine* Intolerance Penicillins Intolerance Rash Proctosol [Hydrocor* Intolerance Sulfa (Sulfonamide * Rash, GI Upset Colchicine Hives Minoxidil Other: See Comments facial hair Current Medications Current Outpatient Medications on File Prior to Visit Medication Sig doxycycline (VIBRA-TABS) 100 mg tablet Take 1 tablet by mouth two times a day for 10 days. methylPREDNISolone (MEDROL, JANETH,) 4 mg Dose-Pack Follow dosing instructions, take with food. folic acid 1 mg tablet Take 2 tablets by mouth once daily. rosuvastatin (CRESTOR) 10 mg tablet Take 1 tablet by mouth once daily. levothyroxine (LEVOXYL) 25 mcg tablet Take 1 tablet by mouth once daily. Take on empty stomach. ForThyroid triamcinolone acetonide (KENALOG) 0.1 % cream Apply 1 application to affected area two times a day as needed (rash). Apply sparingly to area for rash/itching. amLODIPine (NORVASC) 2.5 mg tablet Take 1 tablet by mouth once daily. allopurinol (ZYLOPRIM) 100 mg tablet Take 1 tablet by mouth once daily. atenolol (TENORMIN) 25 mg tablet Take 1 tablet by mouth two times a day. Cholecalciferol, Vitamin D3, 50 mcg (2,000 unit) cap Take 1 capsule by mouth once daily. dicyclomine (BENTYL) 10 mg capsule Take 1 capsule by mouth before meals and at bedtime. For diarrhea or abdominal cramping furosemide (LASIX) 40 mg tablet Take 1 tablet by mouth once daily. losartan (COZAAR) 100 mg tablet Take 1 tablet by mouth once daily. potassium chloride ER (KLOR-CON M10) 10 mEq tablet Take 1 tablet by mouth two times a day. cloNIDine HCl (CATAPRES) 0.2 mg tablet Take 1 tablet by mouth two times a day. cyanocobalamin (VITAMIN B-12) 1,000 mcg tab Take 1,000 mcg by mouth once daily. triamcinolone acetonide (KENALOG) 0.1 % cream Apply 1 application to affected area twice daily. On rash, Apply sparingly to area for rash/itching. (Patient taking differently: Apply 1 application to affected area two times a day. On rash, Apply sparingly to area for rash/itching. Uses as needed) vit A/vit C/vit E/zinc/copper (OCUVITE PRESERVISION ORAL) Take by mouth twice daily. nystatin (NYSTOP) powder Apply 1 application to affected area four times daily as needed. Yeast infection/rash in groin and under breasts apremilast (OTEZLA) 30 mg tablet Take 30 mg by mouth twice daily. hydrocortisone probutate 0.1 % crea Apply to affected area once daily as needed. loratadine (CLARITIN) 10 mg tablet Take 10 mg by mouth once daily. Takes daily as needed acetaminophen (TYLENOL) 325 mg tablet Take 650 mg by mouth every 6 hours as needed. Current Facility-Administered Medications on File Prior to Visit Medication perflutren lipid microspheres 1.3 mL in NaCl (PF) 0.9% 10 mL injection (DEFINITY) sodium chloride 0.9 % (flush) 10 mL (BD POSIFLUSH) Social History Social History Tobacco Use Smoking status: Never Smokeless tobacco: Never Vaping Use Vaping Use: Never used Substance Use Topics Alcohol use: No Drug use: No Review of Symptoms REVIEW OF SYSTEMS See HPI, otherwise negative EXAM: BP 118/62 (BP Site: Left Arm, BP Position: Sitting, BP Cuff Size: Regular Adult) Pulse (!) 53 Temp 36.8 C (98.2 F) Resp 16 Wt 74.8 kg (165 lb) SpO2 98% BMI 29.23 kg/m General Appearance: Well appearing, alert, in no acute distress, well-hydrated, well nourished. Extremities: left arm-area defined by the skin marker has receded significantly, slight warmth, edema now 1+ nonpitting, pulses normal. Musculoskeletal: left arm-area defined by the skin marker has receded significantly, slight warmth,edema now 1+ nonpitting, pulses normal.. Peripheral Pulses: left arm-area defined by the skin marker has receded significantly, slight warmth, edema now 1+ nonpitting, pulses normal.. Psychiatric: pleasant, cooperative. Health Maintenance List DTaP,Tdap,Td Vaccine(3 - Td or Tdap) due on 08/03/2024 RSV Vaccine(1 - 1-dose 60+ series) due on 08/03/2024 Covid-19 Vaccine( season) due on 10/23/2024 Colorectal Cancer Screening due on 09/30/2025 Diabetes Screening due on 02/08/2027 Bone Density Screening Completed Influenza Vaccine Completed Behavioral Health Screening Completed Shingrix Vaccine Completed Pneumococcal Vaccine: 65+ Completed Advance Directive Discussion Discontinued Data reviewed Previous records, office notes ASSESSMENT/PLAN: 1. Wasp sting, accidental or unintentional, subsequent encounter - ICD9: V58.89, 989.5, ICD10: T63.461D (primary diagnosis) Significant improvement overall. Complete Medrol Dose Janeth, complete doxycycline. Continue with elevation as able. Continue triamcinolone cream prn. May try oatmeal bath for itching. Continue ice prn. Patient and daughter again aware of red flag s/s. Do not need to follow up in the office unless sx worsen or fail to improve. 2. Cellulitis of left upper extremity - ICD9: 682.3, ICD10: L03.114 Significant improvement overall. Complete Medrol Dose Janeth, complete doxycycline. Continue with elevation as able. Continue triamcinolone cream prn. May try oatmeal bath for itching. Continue ice prn. Patient and daughter again aware of red flag s/s. Do not need to follow up in the office unless sx worsen or fail to improve. Catalina Jauregui APRN.FELICIA documented in this encounterC[facility]06-[facility]24 Instructions* Patient Instructions* Catalina Jauregui APRN.CNP - 03/16/2024 1:51 PM EDT Ok to take Tylenol as needed. Watch for streaking up your arm or spreading outside of the lines we sheldon. Elevate your arm. Continue icing as needed. Continue the triamcinolone cream that Dr. Harvey gave you for the itching. Start the antibiotic doxycycline and steroid Medrol Dose janeth today. documented in this encounterC[facility]06-[facility]24 History of Present illness Narrative* Catalina Jauregui APRN.CNP - 03/16/2024 1:29 PM EDT Chief Complaint Patient presents with: Insect Bite: Wasp sting yesterday left arm swollen , painful and itchy. HPI Mary Crane is a 83 year old female who presents here today for Above Complaints.. Per nurse triage note today 03/16/2024: Christel Wagner RN AB 03/16/24 11:07 AM Note Protocol recommends see provider in 24 hours. Pt is scheduled to see Catalina Jauregui VARIETY SAW OPERATOR at 120 pm.Care plan reviewed with patient. Patient voices understanding. Advised patient that if symptoms getworse to be evaluated in Urgent Care or ER. Reason for Disposition [1] Red or very tender (to touch) area AND [2] started over 24 hours after the bite Answer Assessment - Initial Assessment Questions 1. TYPE of INSECT: The insect was a wasp. 2. ONSET: She got bitten yesterday around 230-3 pm. 3. LOCATION: The insect bite is located about 2 inches above the wrist on the L arm more on the forearm side. 4. REDNESS: The area closer to the bite is more red and the area further from the bite is more pink. 5. PAIN: Pt reports the pain is a 10/10 and it is an itch. 6. ITCHING: - MILD: doesn't interfere with normal activities - MODERATE-SEVERE: interferes with work, school, sleep, or other activities Pt reports the itching is a 10/10, it's a painful itch and she could itch it now. It kept her awakelast night. 7. SWELLING: The swelling goes from the thumb and wrist up to elbow.8. OTHER SYMPTOMS: Pt denies difficulty breathing or hives. 9. : Postmenopausal. Protocols used: Insect [id number] Currently: Took Tylenol last evening which didn't help at all. Tried some ice packs which helped a bit. Itchy and hurts both. Was previously prescribed a cream by Dr. Harvey PCP, triamcinolone, which she has been putting on the area with mild improvement in sx. Denies known fevers. No difficulty breathing or swallowing. Past medical history, appointments, medications, allergies reviewed. Previous Medical History PAST MEDICAL HISTORY Diagnosis Date Advance care planning 04/01/2022 Daughter Noemy Arrhythmia Benign neoplasm of colon Chronic kidney disease 02/09/2015 Diverticulosis of colon (without mention of hemorrhage) IFG (impaired fasting glucose) 03/2022 Incisional hernia 07/06/2015 Internal hemorrhoids without mention of complication Rheumatoid arthritis(714.0) Rheumatoid arthritis(714.0) Sicca syndrome (HCC) Unspecified essential hypertension Previous Surgical History PAST SURGICAL HISTORY Procedure Laterality Date CATARACT EXTRACTION HX 10/12/2004 COLONOSCOPY FLX DX W/COLLJ SPEC WHEN PFRMD 09/30/2005 Colonoscopy COLONOSCOPY FLX DX W/COLLJ SPEC WHEN PFRMD 07/28/2016 Colonoscopy COLONOSCOPY SCREENING 09/30/2022 multiple adenomatous polyps, repeat in 3 yrs ESOPHAGOGASTRODUODENOSCOPY TRANSORAL DIAGNOSTIC 12/21/2014 EGD LAPAROSCOPY SURG CHOLECYSTECTOMY 02/20/2015 NEUROPLASTY &/TRANSPOS MEDIAN NRV CARPAL TUNNE 02/12/2006 Carpal tunnel decomp Left NEUROPLASTY &/TRANSPOS MEDIAN NRV CARPAL TUNNE 02/27/2006 Carpal tunnel decomp Right PAST SURGICAL HISTORY OF 10/12/2001 hemorrhoidectomy , bladder, and umbilical hernia repair PAST SURGICAL HISTORY OF 08/12/2006 bladder suspension REPAIR FIRST ABDOMINAL WALL HERNIA 07/06/2015 with mesh VAGINAL HYSTERECTOMY UTERUS 250 GM/< 10/12/1983 Hysterectomy, vaginal and bladder tacked up Family History FAMILY HISTORY Problem Relation Age of Onset Diabetes Mother Hypertension Mother Heart Father Diabetes Sister No Known Problems Sister No Known Problems Brother Heart Brother No Known Problems Brother Patient Allergies ALLERGIES Allergen Reactions Floxin [Ofloxacin] Anaphylaxis Bumex [Bumetanide] Intolerance Hydrochlorothiazide Rash, Intolerance leucocytoclastic vasculitis Keflex [Cephalexin] Rash Naproxen Rash, Hives Norvasc [Amlodipine* Intolerance Penicillins Intolerance Rash Proctosol [Hydrocor* Intolerance Sulfa (Sulfonamide * Rash, GI Upset Colchicine Hives Minoxidil Other: See Comments facial hair Current Medications Current Outpatient Medications on File Prior to Visit Medication Sig folic acid 1 mg tablet Take 2 tablets by mouth once daily. rosuvastatin (CRESTOR) 10 mg tablet Take 1 tablet by mouth once daily. levothyroxine (LEVOXYL) 25 mcg tablet Take 1 tablet by mouth once daily. Take on empty stomach. ForThyroid triamcinolone acetonide (KENALOG) 0.1 % cream Apply 1 application to affected area two times a day as needed (rash). Apply sparingly to area for rash/itching. amLODIPine (NORVASC) 2.5 mg tablet Take 1 tablet by mouth once daily. allopurinol (ZYLOPRIM) 100 mg tablet Take 1 tablet by mouth once daily. atenolol (TENORMIN) 25 mg tablet Take 1 tablet by mouth two times a day. Cholecalciferol, Vitamin D3, 50 mcg (2,000 unit) cap Take 1 capsule by mouth once daily. dicyclomine (BENTYL) 10 mg capsule Take 1 capsule by mouth before meals and at bedtime. For diarrhea or abdominal cramping furosemide (LASIX) 40 mg tablet Take 1 tablet by mouth once daily. losartan (COZAAR) 100 mg tablet Take 1 tablet by mouth once daily. potassium chloride ER (KLOR-CON M10) 10 mEq tablet Take 1 tablet by mouth two times a day. cloNIDine HCl (CATAPRES) 0.2 mg tablet Take 1 tablet by mouth two times a day. cyanocobalamin (VITAMIN B-12) 1,000 mcg tab Take 1,000 mcg by mouth once daily. triamcinolone acetonide (KENALOG) 0.1 % cream Apply 1 application to affected area twice daily. On rash, Apply sparingly to area for rash/itching. (Patient taking differently: Apply 1 application to affected area two times a day. On rash, Apply sparingly to area for rash/itching. Uses as needed) vit A/vit C/vit E/zinc/copper (OCUVITE PRESERVISION ORAL) Take by mouth twice daily. nystatin (NYSTOP) powder Apply 1 application to affected area four times daily as needed. Yeast infection/rash in groin and under breasts apremilast (OTEZLA) 30 mg tablet Take 30 mg by mouth twice daily. hydrocortisone probutate 0.1 % crea Apply to affected area once daily as needed. loratadine (CLARITIN) 10 mg tablet Take 10 mg by mouth once daily. Takes daily as needed acetaminophen (TYLENOL) 325 mg tablet Take 650 mg by mouth every 6 hours as needed. Current Facility-Administered Medications on File Prior to Visit Medication perflutren lipid microspheres 1.3 mL in NaCl (PF) 0.9% 10 mL injection (DEFINITY) sodium chloride 0.9 % (flush) 10 mL (BD POSIFLUSH) Social History Social History Tobacco Use Smoking status: Never Smokeless tobacco: Never Vaping Use Vaping Use: Never used Substance Use Topics Alcohol use: No Drug use: No Review of Symptoms REVIEW OF SYSTEMS See HPI, otherwise negative EXAM: BP 120/64 (BP Site: Right Arm, BP Position: Sitting, BP Cuff Size: Regular Adult) Pulse 64 Resp16 Wt 76.7 kg (169 lb) SpO2 97% BMI 29.94 kg/m General Appearance: Well appearing, alert, in no acute distress, well-hydrated, well nourished.. Heart: RRR without murmur, gallop, or rubs. No ectopy. Extremities: left lower arm with significant swelling and redness, tender to the touch, warm to thetouch, extends from lower palm to just above inner elbow, area defined with skin pen. Psychiatric: pleasant, cooperative. Health Maintenance List DTaP,Tdap,Td Vaccine(3 - Td or Tdap) due on 08/03/2024 RSV Vaccine(1 - 1-dose 60+ series) due on 08/03/2024 Covid-19 Vaccine(2022- season) due on 10/23/2024 Colorectal Cancer Screening due on 09/30/2025 Diabetes Screening due on 02/08/2027 Bone Density Screening Completed Influenza Vaccine Completed Behavioral Health Screening Completed Shingrix Vaccine Completed Pneumococcal Vaccine: 65+ Completed Advance Directive Discussion Discontinued Data reviewed Previous records, office notes ASSESSMENT/PLAN: 1. Wasp sting, accidental or unintentional, initial encounter - ICD9: 989.5, E905.3, ICD10: T63.461A (primary diagnosis) Defined area of cellulitis with skin pen. Discussed with daughter and patient s/s, red flags to look for. Ok to continue prn Tylenol. Ok to continue icing prn. Follow up in the office in 2 days for reassessment. - DOXYCYCLINE HYCLATE 100 MG TABLET - METHYLPREDNISOLONE 4 MG TABLETS IN A DOSE PACK 2. Cellulitis of left upper extremity - ICD9: 682.3, ICD10: L03.114 Defined area of cellulitis with skin pen. Discussed with daughter and patient s/s, red flags to look for. Ok to continue prn Tylenol. Ok to continue icing prn. Follow up in the office in 2 days for reassessment. - DOXYCYCLINE HYCLATE 100 MG TABLET - METHYLPREDNISOLONE 4 MG TABLETS IN A DOSE PACK Catalina Jauregui APRN.GROCERY BAGGER documented in this encounterC[facility] Telephone encounter Note * Telephone Encounter - Christel Wagner RN - 03/16/2024 11:07 AM EDT Protocol recommends see provider in 24 hours. Pt is scheduled to see Catalina Jauregui VARIETY SAW OPERATOR at 120 pm.Care plan reviewed with patient. Patient voices understanding. Advised patient that if symptoms getworse to be evaluated in Urgent Care or ER. Reason for Disposition [1] Red or very tender (to touch) area AND [2] started over 24 hours after the bite Answer Assessment - Initial Assessment Questions 1. TYPE of INSECT: The insect was a wasp. 2. ONSET: She got bitten yesterday around 230-3 pm. 3. LOCATION: The insect bite is located about 2 inches above the wrist on the L arm more on the forearm side. 4. REDNESS: The area closer to the bite is more red and the area further from the bite is more pink. 5. PAIN: Pt reports the pain is a 10/10 and it is an itch. 6. ITCHING: - MILD: doesn't interfere with normal activities - MODERATE-SEVERE: interferes with work, school, sleep, or other activities Pt reports the itching is a 10/10, it's a painful itch and she could itch it now. It kept her awakelast night. 7. SWELLING: The swelling goes from the thumb and wrist up to elbow.8. OTHER SYMPTOMS: Pt denies difficulty breathing or hives. 9. : Postmenopausal. Protocols used: Insect [id number] [facility] Miscellaneous Notes* Telephone Encounter - Christel Wagner RN - 03/16/2024 11:07 AM EDT Protocol recommends see provider in 24 hours. Pt is scheduled to see Catalina Jauregui NP at 120 pm.Care plan reviewed with patient. Patient voices understanding. Advised patient that if symptoms getworse to be evaluated in Urgent Care or ER. Reason for Disposition [1] Red or very tender (to touch) area AND [2] started over 24 hours after the bite Answer Assessment - Initial Assessment Questions 1. TYPE of INSECT: The insect was a wasp. 2. ONSET: She got bitten yesterday around 230-3 pm. 3. LOCATION: The insect bite is located about 2 inches above the wrist on the L arm more on the forearm side. 4. REDNESS: The area closer to the bite is more red and the area further from the bite is more pink. 5. PAIN: Pt reports the pain is a 10/10 and it is an itch. 6. ITCHING: - MILD: doesn't interfere with normal activities - MODERATE-SEVERE: interferes with work, school, sleep, or other activities Pt reports the itching is a 10/10, it's a painful itch and she could itch it now. It kept her awakelast night. 7. SWELLING: The swelling goes from the thumb and wrist up to elbow.8. OTHER SYMPTOMS: Pt denies difficulty breathing or hives. 9. : Postmenopausal. Protocols used: Insect [id number] documented in this encounterC[facility]05-31-[facility] Telephone encounter Note * Telephone Encounter - Shelley Perez - 03/11/2024 9:35 AM EDT Patient has been identified by name and date of : Yes Patient phones for refill(s): Requested Prescriptions Pending Prescriptions Disp Refills folic acid 1 mg tablet 180 tablet 3 Sig: Take 2 tablets by mouth once daily. Date of last office visit in primary care: 02/17/2024 Date of next office visit in primary care: 08/22/2024 Please advise. Thank you. Shelley Perez. [facility] Miscellaneous Notes* Telephone Encounter - Shelley Perez - 03/11/2024 9:35 AM EDT Patient has been identified by name and date of : Yes Patient phones for refill(s): Requested Prescriptions Pending Prescriptions Disp Refills folic acid 1 mg tablet 180 tablet 3 Sig: Take 2 tablets by mouth once daily. Date of last office visit in primary care: 02/17/2024 Date of next office visit in primary care: 08/22/2024 Please advise. Thank you. Shelley Perez. documented in this encounterC[facility]05-24-[facility] History of Present illness Narrative* Mitesh Mccabe RN - 03/04/2024 10:41 AM EDT [facility] Telephonic Outreach Provider Action/FYI -chf, ckd ADLs/fall risk/goals/SDOH updated 03/04/24 Contacted for: Routine Telephonic Outreach Contact made with patient: Yes Patient identified by name and date of . Discussed care with patient Are you experiencing any new or worsening symptoms you need to talk about today? No Disease Specific Do you check your blood pressure at home? No Do you have new or worsening shortness of breath with activity? No Do you have new or worsening trouble breathing while lying flat? No Do you have new or worsening swelling of legs, feet or ankles? No Do you feel like you are dehydrated for any reason, including not being able to eat or drink normally, or having less urine/much darker urine than normal for you? No Based on assessment expert, the following disposition is advised: No symptoms or symptoms present, not severe. Routed to: No Action Needed NALINI Education Provided this Outreach: No Mitesh Mccabe RN March 04, 2024 10:44 AM * Mitesh Mccabe RN - 03/02/2024 3:49 PM EDT [facility] Telephonic Outreach Provider Action/FYI -chf, ckd Contacted for: Routine Telephonic Outreach Contact made with patient: No, left message. Mitesh Mccabe RN March 02, 2024 3:49 PM documented in this encounterC[facility]05-23-[facility]24 Telephone encounter Note * Telephone Encounter - Lori Chino RN - 03/03/2024 4:59 PM EDT Patient has been identified by name and date of : Patient phones for refill(s): Requested Prescriptions Pending Prescriptions Disp Refills rosuvastatin (CRESTOR) 10 mg tablet 90 tablet 1 Sig: Take 1 tablet by mouth once daily. Date of last office visit in primary care: 02/17/2024 Date of next office visit in primary care: 08/22/2024 Please advise. Thank you. Lori Chino RN. [facility] Miscellaneous Notes* Telephone Encounter - Lori Chino RN - 03/03/2024 4:59 PM EDT Patient has been identified by name and date of : Patient phones for refill(s): Requested Prescriptions Pending Prescriptions Disp Refills rosuvastatin (CRESTOR) 10 mg tablet 90 tablet 1 Sig: Take 1 tablet by mouth once daily. Date of last office visit in primary care: 02/17/2024 Date of next office visit in primary care: 08/22/2024 Please advise. Thank you. Lori Chino RN. documented in this encounterC[facility]05-15-2024 Telephone encounter Note * Telephone Encounter - Camila Finley RN - 02/24/2024 10:19 AM EDT Patient notified of results and provider's instructions. Patient verbalizes understanding. Camila Finley RN [facility]05-15-[facility]24 Miscellaneous Notes* Telephone Encounter - Camila Finley RN - 02/24/2024 10:19 AM EDT Patient notified of results and provider's instructions. Patient verbalizes understanding. Camila Finley RN * Telephone Encounter - Atul Harvey DO - 02/23/2024 4:47 PM EDT Please inform patient that her RUQ US showed IMPRESSION: 1. Hepatic steatosis which is fatty liver. 2. 2.6 cm indeterminant hyperechoic splenic lesion though statistically likely a hemangioma. Given this was not definitively identified on prior studies, follow-up ultrasound in 3 months is advised to document stability. 3. Mild renal parenchymal thinning. Recommend recheck US in 3-6 months as ordered Atul Harvey DO documented in this encounterC[facility]05-14-2024 Telephone encounter Note * Telephone Encounter - Atul Harvey DO - 02/23/2024 4:47 PM EDT Please inform patient that her RUQ US showed IMPRESSION: 1. Hepatic steatosis which is fatty liver. 2. 2.6 cm indeterminant hyperechoic splenic lesion though statistically likely a hemangioma. Given this was not definitively identified on prior studies, follow-up ultrasound in 3 months is advised to document stability. 3. Mild renal parenchymal thinning. Recommend recheck US in 3-6 months as ordered Atul Harvey DO [facility]05-14-[facility] Telephone encounter Note* Telephone Encounter - Lizzy Savage MA - 02/23/2024 12:23 PM EDT The following approved medication requests have been transmitted electronically. Requested Prescriptions Signed Prescriptions Disp Refills levothyroxine (LEVOXYL) 25 mcg tablet 30 tablet 2 Sig: Take 1 tablet by mouth once daily. Take on empty stomach. For Thyroid Authorizing Provider: MILANA ARMIJO MA [facility] Miscellaneous Notes* Telephone Encounter - Lizzy Savage MA - 02/23/2024 12:23 PM EDT The following approved medication requests have been transmitted electronically. Requested Prescriptions Signed Prescriptions Disp Refills levothyroxine (LEVOXYL) 25 mcg tablet 30 tablet 2 Sig: Take 1 tablet by mouth once daily. Take on empty stomach. For Thyroid Authorizing Provider: MILANA ARMIJO MA * Telephone Encounter - Faiza Moreland MA - 02/22/2024 10:55 AM EDT Message left for pt to call back for results. Faiza Moreland MA * Telephone Encounter - Lulú Tang MA - 02/18/2024 3:15 PM EDT Left message to return call Lulú Tang MA * Telephone Encounter - Milana Armijo APRN.CNP - 02/18/2024 12:56 PM EDT Rx sent. Have patient recheck thyroid labs in 6 weeks. The following approved medication requests have been transmitted electronically. Requested Prescriptions Signed Prescriptions Disp Refills levothyroxine (LEVOXYL) 25 mcg tablet 30 tablet 2 Sig: Take 1 tablet by mouth once daily. Take on empty stomach. For Thyroid Authorizing Provider: MILANA ARMIJO APRN.FELICIA * Telephone Encounter - Ely Alarcon LPN - 02/18/2024 10:34 AM EDT Patient returned call and went over results, notes from Dr Harvey with understanding. Had to go over with daughter also. Assisted with transfer to receptionist scheduler to get ultrasound appt set up. Patient will take the Levothyroxine rx, she uses [facility] for her pharmacy. * Telephone Encounter - Lulú Tang MA - 02/18/2024 9:36 AM EDT Left message to return call Lulú Tang MA * Telephone Encounter - Atul Harvey DO - 02/17/2024 10:22 PM EDT Please inform patient that her labs show that her TSH is elevated, her free t4 is normal. This is called subclinical hypothyroidism. I can start her on a thyroid hormone called levothyroxine daily inthe AM if she is willing/interested. Her LFTs are still slightly high. I would like her to have RUQ US repeated of the liver. She has a history of fatty liver Atul Harvey DO documented in this encounterC[facility]05-14-2024 History of Present illness Narrative* Velma Robin RDUT - 02/23/2024 7:45 AM EDT Radiology Service Progress Note PATIENT NAME: Mary Crane DATE OF SERVICE: February 23, 2024 TIME: 8:18 AM PATIENT IDENTITY VERIFICATION COMPLETED USING TWO (2) IDENTIFIERS: Name and Date of confirmedby patient verbally. FALL SCREENING: Has the patient had 2 falls in the last year or 1 fall with injury or currently using an Ambulatory Assistive Device (Walker, Cane, Wheelchair, Crutches, etc.)? No PATIENT GENDER DATA: Female. status: : No status: NO. PATIENT RELEVANT IMPLANT DATA REVIEWED: Not Applicable PATIENT PRESENTS WITH AN IMPLANTABLE OR ATTACHED SCIENTIFIC TECHNICAL WRITER: No RADIOLOGY DEPARTMENT: Ultrasound PERIPHERAL IV DATA: Not applicable SIGNED BY: Velma Robin RDMS RVT February 23, 2024 8:18 AM documented in this encounterC[facility]05-13-2024 Telephone encounter Note * Telephone Encounter - Faiza Moreland MA - 02/22/2024 10:55 AM EDT Message left for pt to call back for results. Faiza Moreland MA [facility]05-[facility] Telephone encounter Note* Telephone Encounter - Nathaly Benites MA - 02/22/2024 8:49 AM EDT Pharmacy request denied. Patient needs to contact office for refills. Nathaly Benites MA [facility]05-[facility] Miscellaneous Notes* Telephone Encounter - Nathaly Benites MA - 02/22/2024 8:49 AM EDT Pharmacy request denied. Patient needs to contact office for refills. Nathaly Benites MA documented in this encounterC[facility]05-09-2024 Telephone encounter Note * Telephone Encounter - Lulú Tang MA - 02/18/2024 3:15 PM EDT Left message to return call Lulú Tang MA [facility] Telephone encounter Note* Telephone Encounter - Milana Armijo APRN.CNP - 02/18/2024 12:56 PM EDT Rx sent. Have patient recheck thyroid labs in 6 weeks. The following approved medication requests have been transmitted electronically. Requested Prescriptions Signed Prescriptions Disp Refills levothyroxine (LEVOXYL) 25 mcg tablet 30 tablet 2 Sig: Take 1 tablet by mouth once daily. Take on empty stomach. For Thyroid Authorizing Provider: MILANA ARMIJO APRN.CNP [facility] Telephone encounter Note* Telephone Encounter - Ely Alarcon LPN - 02/18/2024 10:34 AM EDT Patient returned call and went over results, notes from Dr Harvey with understanding. Had to go over with daughter also. Assisted with transfer to receptionist scheduler to get ultrasound appt set up. Patient will take the Levothyroxine rx, she uses [facility]. [facility] Telephone encounter Note* Telephone Encounter - Lulú Tang MA - 02/18/2024 9:36 AM EDT Left message to return call Lulú Tang MA [facility]05-[facility] Telephone encounter Note* Telephone Encounter - Atul Harvey DO - 02/17/2024 10:22 PM EDT Please inform patient that her labs show that her TSH is elevated, her free t4 is normal. This is called subclinical hypothyroidism. I can start her on a thyroid hormone called levothyroxine daily inthe AM if she is willing/interested. Her LFTs are still slightly high. I would like her to have RUQ US repeated of the liver. She has a history of fatty liver Atul Harvey DO [facility]05-[facility] History of Present illness Narrative* Atul Harvey DO - 02/17/2024 9:59 AM EDT CC: Mary Crane is a 83 year old female who presents to the office for follow up HPI: CKD stage 2-3, mild, has increased her water intake as recommended, avoids NSAIDs as d/w her previous Lactose intolerance, occasional diarrhea/abd cramping IFG, diet controlled, tries to also stay physically active Has gained about 5 lbs and had fatigue, has a fmhx of thyroid disease RA, seen by Surgeon Assistant for care, taking Otezla as prescribed Stung by wasp on right arm 1-2 weeks ago, has had a rash since then HTN, well controlled, taking medications as prescribed. 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 routinely, Only occasional palpitations and heart racing symptoms as well as dyspnea if she is exerting up an incline such aswalking up her driveway after getting her mail, no chest pressure or Pain . PAST MEDICAL HISTORY Diagnosis Date Advance care planning 04/01/2022 Daughter Noemy Arrhythmia Benign neoplasm of colon Chronic kidney disease 02/09/2015 Diverticulosis of colon (without mention of hemorrhage) IFG (impaired fasting glucose) 03/2022 Incisional hernia 07/06/2015 Internal hemorrhoids without mention of complication Rheumatoid arthritis(714.0) Rheumatoid arthritis(714.0) Sicca syndrome (HCC) Unspecified essential hypertension PAST SURGICAL HISTORY Procedure Laterality Date CATARACT EXTRACTION HX 10/12/2004 COLONOSCOPY FLX DX W/COLLJ SPEC WHEN PFRMD 09/30/2005 Colonoscopy COLONOSCOPY FLX DX W/COLLJ SPEC WHEN PFRMD 07/28/2016 Colonoscopy COLONOSCOPY SCREENING 09/30/2022 multiple adenomatous polyps, repeat in 3 yrs ESOPHAGOGASTRODUODENOSCOPY TRANSORAL DIAGNOSTIC 12/21/2014 EGD LAPAROSCOPY SURG CHOLECYSTECTOMY 02/20/2015 NEUROPLASTY &/TRANSPOS MEDIAN NRV CARPAL TUNNE 02/12/2006 Carpal tunnel decomp Left NEUROPLASTY &/TRANSPOS MEDIAN NRV CARPAL TUNNE 02/27/2006 Carpal tunnel decomp Right PAST SURGICAL HISTORY OF 10/12/2001 hemorrhoidectomy , bladder, and umbilical hernia repair PAST SURGICAL HISTORY OF 08/12/2006 bladder suspension REPAIR FIRST ABDOMINAL WALL HERNIA 07/06/2015 with mesh VAGINAL HYSTERECTOMY UTERUS 250 GM/< 10/12/1983 Hysterectomy, vaginal and bladder tacked up Current Outpatient Medications Medication Sig amLODIPine (NORVASC) 2.5 mg tablet Take 1 tablet by mouth once daily. folic acid 1 mg tablet Take 2 tablets by mouth once daily. allopurinol (ZYLOPRIM) 100 mg tablet Take 1 tablet by mouth once daily. atenolol (TENORMIN) 25 mg tablet Take 1 tablet by mouth two times a day. Cholecalciferol, Vitamin D3, 50 mcg (2,000 unit) cap Take 1 capsule by mouth once daily. dicyclomine (BENTYL) 10 mg capsule Take 1 capsule by mouth before meals and at bedtime. For diarrhea or abdominal cramping furosemide (LASIX) 40 mg tablet Take 1 tablet by mouth once daily. losartan (COZAAR) 100 mg tablet Take 1 tablet by mouth once daily. rosuvastatin (CRESTOR) 10 mg tablet Take 1 tablet by mouth once daily. potassium chloride ER (KLOR-CON M10) 10 mEq tablet Take 1 tablet by mouth two times a day. cloNIDine HCl (CATAPRES) 0.2 mg tablet Take 1 tablet by mouth two times a day. cyanocobalamin (VITAMIN B-12) 1,000 mcg tab Take 1,000 mcg by mouth once daily. triamcinolone acetonide (KENALOG) 0.1 % cream Apply 1 application to affected area twice daily. On rash, Apply sparingly to area for rash/itching. (Patient taking differently: Apply 1 application to affected area two times a day. On rash, Apply sparingly to area for rash/itching. Uses as needed) vit A/vit C/vit E/zinc/copper (OCUVITE PRESERVISION ORAL) Take by mouth twice daily. nystatin (NYSTOP) powder Apply 1 application to affected area four times daily as needed. Yeast infection/rash in groin and under breasts apremilast (OTEZLA) 30 mg tablet Take 30 mg by mouth twice daily. hydrocortisone probutate 0.1 % crea Apply to affected area once daily as needed. loratadine (CLARITIN) 10 mg tablet Take 10 mg by mouth once daily. Takes daily as needed acetaminophen (TYLENOL) 325 mg tablet Take 650 mg by mouth every 6 hours as needed. Current Facility-Administered Medications Medication Dose Route Frequency perflutren lipid microspheres 1.3 mL in NaCl (PF) 0.9% 10 mL injection (DEFINITY) INTRAVENOUS DIRECTED PRN sodium chloride 0.9 % (flush) 10 mL (BD POSIFLUSH) 10 mL INTRAVENOUS DIRECTED PRN ALLERGIES Allergen Reactions Floxin [Ofloxacin] Anaphylaxis Bumex [Bumetanide] Intolerance Hydrochlorothiazide Rash, Intolerance leucocytoclastic vasculitis Keflex [Cephalexin] Rash Naproxen Rash, Hives Norvasc [Amlodipine* Intolerance Penicillins Intolerance Rash Proctosol [Hydrocor* Intolerance Sulfa (Sulfonamide * Rash, GI Upset Colchicine Hives Minoxidil Other: See Comments facial hair Social History Tobacco Use Smoking status: Never Smokeless tobacco: Never Vaping Use Vaping Use: Never used Substance Use Topics Alcohol use: No Drug use: No ROS: See HPI PE: BP 120/82 Pulse 60 Temp (Src) 97.1 (Left Tympanic) Resp 16 Wt 166 lb (75.3kg) Gen: A&OX3, NAD, non-toxic appearing, hard of hearing HEENT: PERRLA, EOMs intact b/l, nares without drainage, pharynx without erythema, exudate, lesions,or drainage. Uvula midline. MMM, wearing glasses Neck: No LAD, no thyromegaly, no meningismus. CV: RRR, no murmur Lungs: CTA b/l, no wheezing Skin: mild papular rash with central punctuation on left upper arm Arthritis changes of peripheral joints including hands, wrists, feet, ankles, knees No peripheral edema, normal pulses Abd: soft, NT, ND, normal BS ASSESSMENT/PLAN: 1. IFG (impaired fasting glucose) - ICD9: 790.21, ICD10: R73.01 (primary diagnosis) Diet controlled Overall stable, has gained 5 lbs due to increased intake of bread- she is going to cut back on this. 2. Dermatitis - ICD9: 692.9, ICD10: L30.9 - discussed skin care of rash - follow up if symptoms persist or worsen. 3. Itching - ICD9: 698.9, ICD10: L29.9 4. Wasp sting, accidental or unintentional, initial encounter - ICD9: 989.5, E905.3, ICD10: T63.461A rx as below - TRIAMCINOLONE ACETONIDE 0.1 % TOPICAL CREAM 5. Weight gain - ICD9: 783.1, ICD10: R63.5 Check labs as ordered for thyroid Has a fmhx of thyroid disease Also is going to cut back on carbs/sugars. 6. Borderline abnormal thyroid function test - ICD9: 794.5, ICD10: R94.6 - check TSH, free T4, and Free T3 today - THYROID STIMULATING HORMONE - T4 FREE/FREE THYROXINE - T3, FREE 7. Elevated AST (SGOT) - ICD9: 790.4, ICD10: R74.01 - HEPATIC FUNCTION PNL 8. Rheumatoid arthritis involving multiple sites with positive rheumatoid factor (HCC) - ICD9: 714.0, ICD10: M05.79 F/u with specialist 9. Calcified granuloma of lung (HCC) - ICD9: 515, ICD10: J84.10 Hx of 10. Stage 3b chronic kidney disease (HCC) - ICD9: 585.3, ICD10: N18.32 - eGFR: 52 Stable - Counseled on avoiding NSAIDs, adequate hydration - Counseled on low sodium diet 11. Dyslipidemia - ICD9: 272.4, ICD10: E78.5 - Uncontrolled - Continue current medications - Counseled on healthy diet and regular exercise Atul Harvey DO Return if no improvement. Follow up with Atul Harvey DO. To ER if develops chest pain, shortness of breath. Discussed risks, benefits, alternatives, and potential side effects of medications. Patient/Guardian expressed understanding and agreed with the plan. See patient instructions. Atul Harvey DO [address] [place] [address] documented in this encounterCleveland [facility]04-17-2024 Miscellaneous Notes* Telephone Encounter - Mary Mendieta LPN - 01/27/2024 5:57 PM EDT Pt. informed. * Telephone Encounter - Milana Armijo APRN.CNP - 01/27/2024 5:26 PM EDT Labs are placed. These need to be fasting and completed a few days prior to appointment. Thank you, Milana Armijo APRN.[facility] * Telephone Encounter - Camila Finley RN - 01/26/2024 9:00 AM EDT Patient calls and states that she has appointment scheduled with provider on 02/17/2024 which is a 6 month follow up. Patient asking if provider wants labs done prior to appointment? Please review and advise, Camila Finley RN documented in this encounterCleveland Clinic Eucl[facility]04-04-2024 Miscellaneous Notes* Telephone Encounter - Ellen Christopher LPN - 01/14/2024 9:15 AM EDT Patient has been identified by name and date of : Yes, Provider Dr. Harvey Date 01/14/24 Time 9:15 Patient phones for refill(s): Requested Prescriptions Pending Prescriptions Disp Refills amLODIPine (NORVASC) 2.5 mg tablet 90 tablet 3 Sig: Take 1 tablet by mouth once daily. Date of last office visit in primary care: 10/23/2023 Date of next office visit in primary care: 02/17/2024 Please advise. Thank you. Ellen Christopher LPN. * Telephone Encounter - Nathaly Nicholas - 01/14/2024 8:38 AM EDT Patient has been identified by name and date of : Yes Requested Prescriptions Pending Prescriptions Disp Refills amLODIPine (NORVASC) 2.5 mg tablet 90 tablet 3 Sig: Take 1 tablet by mouth once daily. RX INSTRUCTIONS: Patient aware RX will be sent to pharmacy. No need to notify patient. Nathaly Rodriguez documented in this encounterCleveland Clinic [facility]ucl[facility]04-01-2024 History of Present illness Narrative* Mitesh Mccabe RN - 01/11/2024 2:06 PM EDT [facility] Telephonic Outreach Provider Action/FYI -chf, ckd Pt has appt w/ pcp 02/17/24; will postpone next outreach call to end february, pt in agreement Contacted for: Routine Telephonic Outreach Contact made with patient: Yes Patient identified by name and date of . Discussed care with patient Are you experiencing any new or worsening symptoms you need to talk about today? No Disease Specific Do you check your blood pressure at home? No Do you have new or worsening shortness of breath with activity? No Do you have new or worsening trouble breathing while lying flat? No Do you have new or worsening swelling of legs, feet or ankles? No Do you feel like you are dehydrated for any reason, including not being able to eat or drink normally, or having less urine/much darker urine than normal for you? No Do you check your daily weight at home? Yes, Have you noticed a sudden gain in weight greater than three pounds in a day or three pounds in a week? No Based on assessment expert, the following disposition is advised: No symptoms or symptoms present, not severe. Routed to: No Action Needed NALINI Education Provided this Outreach: No Mitesh Mccabe RN January 11, 2024 2:11 PM documented in this encounterCleveland Clinic Eucl[facility]03-04-2024 Miscellaneous Notes* Telephone Encounter - Mitesh Mccabe RN - 12/14/2023 1:[address] Harvey The following approved medication requests have been transmitted electronically. Requested Prescriptions Pending Prescriptions Disp Refills folic acid 1 mg tablet 180 tablet 3 Sig: Take 2 tablets by mouth once daily. CECILIO 10/23/23 NOV 02/10/24 Mitesh Mccabe RN documented in this encounterCleveland Clinic [facility]ucl[facility]03-04-2024 History of Present illness Narrative* Mitesh Mccabe RN - 12/14/2023 1:51 PM EST [facility] Telephonic Outreach Provider Action/FYI -chf, ckd Contacted for: Routine Telephonic Outreach Contact made with patient: Yes Patient identified by name and date of . Discussed care with patient Are you experiencing any new or worsening symptoms you need to talk about today? No Disease Specific Do you check your blood pressure at home? No it's been fine so no longer checking Do you have new or worsening shortness of breath with activity? No does have some VALENZUELA as explained to cards last week who ordered f/u echo in April Do you have new or worsening trouble breathing while lying flat? No no issues w/ breathing but doesfeel palpitations at night as explained to cards last week Do you have new or worsening swelling of legs, feet or ankles? No Do you feel like you are dehydrated for any reason, including not being able to eat or drink normally, or having less urine/much darker urine than normal for you? No Based on assessment expert, the following disposition is advised: No symptoms or symptoms present, not severe. Routed to: No Action Needed NALINI Education Provided this Outreach: No Mitesh Mccabe RN December 14, 2023 1:58 PM documented in this encounterCleveland Clinic Eucl[facility]02-07-2024 Miscellaneous Notes* Telephone Encounter - Mary De La Cruz - 11/18/2023 1:04 PM EST Please note: patient spoke to pharmacist and they told her there are no refills on her atenolol. She said she should have 1 refill left. * Telephone Encounter - Mary De La Cruz - 11/18/2023 1:03 PM EST Patient has been identified by name and date of : Yes, Provider Wes Patient phones for refill(s): Requested Prescriptions Pending Prescriptions Disp Refills allopurinol (ZYLOPRIM) 100 mg tablet 90 tablet 3 Sig: Take 1 tablet by mouth once daily. atenolol (TENORMIN) 25 mg tablet 180 tablet 1 Sig: Take 1 tablet by mouth two times a day. Cholecalciferol, Vitamin D3, 50 mcg (2,000 unit) cap 90 capsule 3 Sig: Take 1 capsule by mouth once daily. dicyclomine (BENTYL) 10 mg capsule 30 capsule 1 Sig: Take 1 capsule by mouth before meals and at bedtime. For diarrhea or abdominal cramping Date of last office visit in primary care: 10/23/2023 Date of next office visit in primary care: 02/17/2024 Please advise. Thank you. Mary Rodriguez. documented in this encounterCleveland Clinic [facility]02-06-2024 History of Present illness Narrative* [facility] Myra Cruz - 11/17/2023 10:05 AM EST POPULATION HEALTH NAVIGATION OUTREACH Action/ I spoke to patient and rescheduled appointment with PCP. Patient Identified by Name and : YES, via phone Outreach Outcome/Action Spoke to patient / parent / legal guardian: Patient scheduled Did you use a PCP flex slot to schedule this appointment? No Reason for Outreach Community Monitoring [place] Payer: Payor: [employer] MEDICARE / Plan: [employer] MEDICARE PPO / Product Type: PPO / Care Gap Reviewed:: Follow-up appointment Reminder: Reminder note to check Health Maintenance for items below Health Maintenance items due: There are no preventive care reminders to display for this patient. Navigation Signature: Myra Reid Population Health Navigator November 17, 2023 10:05 AM Electronically signed by [facility] NavigatorMyra at 11/17/2023 10:06 AM EST * Mitesh Mccabe RN - 11/17/2023 9:43 AM EST [facility] Telephonic Outreach Provider Meghana/LAZARUS Heartchf, ckd Pt has upcoming appt in January w/ [facility]GER and was under the impression it was w/ PCP; pt would like to know if there are any appts around that time frame where she can see her pcp instead; Will forward [facility] navigation team for further assistance and ask them to call pt w/ update Contacted for: Routine Telephonic Outreach Contact made with patient: Yes Patient identified by name and date of . Discussed care with patient Are you experiencing any new or worsening symptoms you need to talk about today? No Disease Specific Do you check your blood pressure at home? Yes, Enter readings: improving since getting over recent URI Do you have new or worsening shortness of breath with activity? No Do you have new or worsening trouble breathing while lying flat? No Do you have new or worsening swelling of legs, feet or ankles? No Do you feel like you are dehydrated for any reason, including not being able to eat or drink normally, or having less urine/much darker urine than normal for you? No Based on assessment expert, the following disposition is advised: No symptoms or symptoms present, not severe. Routed to: Navigation Team: Annual Wellness visit Pt requesting to be seen by pcp instead of [facility] ifpossible NALINI Education Provided this Outreach: No Mitesh Mccabe RN November 17, 2023 9:48 AM * Mitesh Mccabe RN - 11/16/2023 2:31 PM EST [facility] Telephonic Outreach Provider Meghana/LAZARUS Heartchf, ckd Contacted for: Routine Telephonic Outreach Contact made with patient: No, left message. Mitesh Mccabe RN November 16, 2023 2:32 PM documented in this encounterCleveland Clinic [facility]ucl[facility]01-18-2024 History of Present illness Narrative* Freida Gutierrez RT(R) - 10/29/2023 11:00 AM EST Radiology Service Progress Note PATIENT NAME: Mary Crane DATE OF SERVICE: October 29, 2023 TIME: 10:58 AM PATIENT IDENTITY VERIFICATION COMPLETED USING TWO (2) IDENTIFIERS: Name and Date of confirmedby patient verbally. FALL SCREENING: Has the patient had 2 falls in the last year or 1 fall with injury or currently using an Ambulatory Assistive Device (Walker, Cane, Wheelchair, Crutches, etc.)? No PATIENT GENDER DATA: Female. status: : No status: NO. PATIENT RELEVANT IMPLANT DATA REVIEWED: Not Applicable RADIOLOGY DEPARTMENT: General X-ray: Exam(s) Completed: Chest X-Ray PERIPHERAL IV DATA: Not applicable SIGNED BY: RT Eliazar(R) October 29, 2023 10:58 AM documented in this encounterCleveland Clinic [facility]ucl[facility]12-21-2023 History of Present illness Narrative* Mitesh Mccabe RN - 10/01/2023 10:10 AM EST [facility] Telephonic Outreach Provider Action/FYI -chf, ckd 2nd attempt, LVM Contacted for: Routine Telephonic Outreach Contact made with patient: No, left message. Mitesh Mccabe RN October 01, 2023 10:12 AM * Mitesh Mccabe RN - 09/30/2023 11:04 AM EST [facility] Telephonic Outreach Provider Action/LAZARUS Heartchf, ckd 1st Contacted for: Routine Telephonic Outreach Contact made with patient: No, left message. Mitesh Mccabe RN September 30, 2023 11:04 AM documented in this encounterCleveland Clinic Eucl[facility]11-22-2023 History of Present illness Narrative* Mitesh Mccabe RN - 09/02/2023 12:00 PM EST [facility] Telephonic Outreach Provider Action/FYI -chf, ckd Contacted for: Routine Telephonic Outreach Contact made with patient: Yes Patient identified by name and date of . Discussed care with patient Are you experiencing any new or worsening symptoms you need to talk about today? No Disease Specific Do you check your blood pressure at home? Yes, Enter readings: pt currently busy prepping for Thanksgiving; did not give details on readings but states they have been better Do you have new or worsening shortness of breath with activity? No Do you have new or worsening trouble breathing while lying flat? No Do you have new or worsening swelling of legs, feet or ankles? No Do you feel like you are dehydrated for any reason, including not being able to eat or drink normally, or having less urine/much darker urine than normal for you? No Based on assessment expert, the following disposition is advised: No symptoms or symptoms present, not severe. Routed to: No Action Needed NALINI Education Provided this Outreach: No Mitesh Mccabe RN September 02, 2023 12:03 PM documented in this encounterCleveland Clinic [facility]10-25-2023 History of Present illness Narrative* Mitesh Mccabe RN - 08/05/2023 4:17 PM EDT Care Coordination Deferred Outreach Provider Action / FYI: Deferred outreach to patient at this time due to: Chart Review Only Next Outreach date: 09/02/23; pt seen by pcp team 08/03/23 Mitesh Mccabe RN August 05, 2023 4:17 PM documented in this encounterCleveland Clinic [facility]ucl[facility]10-12-2023 Miscellaneous Notes* Telephone Encounter - Ely Alarcon LPN - 07/23/2023 2:08 PM EDT Patient returned call and went over notes below from Dr Stauffer with understanding. * Telephone Encounter - Aniceto Ray Faiza - 07/23/2023 11:27 AM EDT Message left for pt to call back. Faiza Moreland Ma , * Telephone Encounter - Ino Stauffer MD - 07/23/2023 11:17 AM EDT I would suggest that she stay on the clonidine 0.3 mg twice daily dose since her BP is still elevated Ino Stauffer MD * Telephone Encounter - Joslyn Turk RN - 07/23/2023 10:57 AM EDT Patient calls with update on blood pressure from 07/13 patient outreach encounter. Patient reports that she is taking clonidine 0.3 mg twice daily. Last medication change 07/13/2023 and patient was to be taking clonidine 0.2 mg twice daily but she said pharmacist told her to take 0.3 mg. BP this am is 174/74 and HR 54 prior to medication. Patient not at home and not able to give a current BP reading. Patient reports she no longer feels weak and drained. She has a headache and feels nervous/fatiguedbecause BP is back up. Denies CP and reports SOB is per usual with activity especially climbing stairs/uphill. Patient asking if she should be taking clonidine 0.2 mg or 0.3 mg twice daily based on increased BPreadings again. Patient requests call back on home phone at [phone] today. Joslyn Turk, RN documented in this encounterCleveland Clinic Eucl[facility]10-03-2023 Miscellaneous Notes* Addendum Note - Atul Harvey, DO - 07/14/2023 4:58 PM EDTAddended by: ATUL HARVEY on: 07/14/2023 04:58 PM Modules accepted: Orders documented in this encounterCleveland Clinic Eucl[facility]10-03-2023 History of Present illness Narrative* Atul Harvey DO - 07/14/2023 4:57 PM EDT Please have patient decrease dose of clonidine back down to 0.2 mg twice a day and report blood pressures and how she is feeling by Thursday or Thursday Atul Harvey DO The following approved medication requests have been transmitted electronically. Requested Prescriptions Signed Prescriptions Disp Refills cloNIDine HCl (CATAPRES) 0.2 mg tablet 180 tablet 3 Sig: Take 1 tablet by mouth two times a day. Atul Harvey DO * Mitesh Mccabe RN - 07/14/2023 11:21 AM EDT [facility] Telephonic Outreach Provider Action/FYI -chf, ckd Atul Harvey DO Pt has noticed feeling drained and weak approx 30 min after taking the increased dose of 0.3mg of clonidine each time she takes the med twice daily; overall she feels an increase in fatigue/weakness since the increase; has not taken her BP at that 30 min ino however took BP while on phone and it was 108/67 HR 53; Took her meds last evening around 5:30, and BP at 9:45 was 101/59, HR 58; AM blood pressures before morning dose runs 120s-130s; today at 7:50 it was 132/73 HR 54 prior to taking her meds Does get sob after coming up steps or walking up hill; a little more than norm; States she was going to call the office today w/ this update. Next f/u appt 08/04/23 w/ [facility]. PLEASEHAVE YOUR STAFF REACH OUT TO THE PATIENT WITH FURTHER ORDERS/INSTRUCTIONS. Thank you, Mitesh Mccabe, research dairy farm supervisorNuclear Medicine Technician Contacted for: Routine Telephonic Outreach Contact made with patient: Yes Patient identified by name and date of . Discussed care with patient Are you experiencing any new or worsening symptoms you need to talk about today? Yes Based on assessment expert, the following disposition is advised: No symptoms or symptoms present, not severe. Routed to: No Action Needed NALINI Education Provided this Outreach: No Mitesh Mccabe RN July 14, 2023 11:29 AM * Mitesh Mccabe RN - 07/13/2023 2:18 PM EDT [facility] Telephonic Outreach Provider Action/FYI -chf, ckd 1st attempt, LVM Contacted for: Routine Telephonic Outreach Contact made with patient: No, left message. Mitesh Mccabe RN July 13, 2023 2:19 PM documented in this encounterCleveland Clinic [facility]09-14-2023 Miscellaneous Notes* Telephone Encounter - Faiza Moreland Ma - 06/25/2023 1:51 PM EDT Pt notified. Appt made 06/29/23 with iMlana Armijo. Faiza Moreland Ma * Telephone Encounter - Milana Armijo APRN.CNP - 06/25/2023 1:21 PM EDT Should have BP check appointment in office. Milana Armijo APRN.CNP * Telephone Encounter - Camila Finley RN - 06/25/2023 12:44 PM EDT Patient calls and states that she has been off of amlodipine for 2 days. Patient was advised on 06/22/2023 to hold medication to see if symptoms (intermittent hives and pain in her ankles/burning in her feet) improved. Patient currently not reporting any symptoms. Patient's main concern is that shehad [facility] blood [facility] and it was 148/69. Patient is asymptomatic butwondering if she needs to be put on another blood pressure medication? Patient states that she does not think her blood pressure cuff at home works. Patient reports that it reads the same thing over and over. Patient states that systolic usually in 120s and diastolic isusually in 69-80 range. Please review and advise, Camila Finley RN documented in this encounterCleveland Clinic Eucl[facility] Hospital09-11-2023 Miscellaneous Notes* Telephone Encounter - Brooklyn Ying RN - 06/22/2023 5:40 PM EDT Spoke with patient. Given message from provider's office. Patient verbalizes understanding. Brooklyn Ying RN * Telephone Encounter - Mary Mendieta LPN - 06/22/2023 5:34 PM EDT Message left to return call. * Telephone Encounter - Atul Harvey DO - 06/22/2023 5:17 PM EDT She can try holding the amlodipine to see if her symptoms improve. She would just need to monitor her BLOOD PRESSURE at least once a day. Goal BLOOD PRESSURE <140/90 Atul Harvey DO * Telephone Encounter - Brooklyn Ying RN - 06/22/2023 3:49 PM EDT Patient calling to say she was told by pharmacist that she is taking a medication that she is allergic to: Amlodipine. Reviewed patient's allergy list and it shows intolerance to the medication. She can't specifically remember what the intolerance was (noted in 2004) but she says she has intermittent hives and pain in her ankles/burning in her feet. She is asking if these are potential side effects or allergy symptoms to the Amlodipine? Brooklyn Ying, RN documented in this encounterCleveland Clinic [facility]ucl[facility]09-01-2023 History of Present illness Narrative* Mitesh Mccabe RN - 06/12/2023 3:17 PM EDT [facility] Telephonic Outreach Provider Meghana/FYI -chf, ckd No concerns, gets off the phone quickly I'm fine, I don't need anything Contacted for: Routine Telephonic Outreach Contact made with patient: Yes Patient identified by name and date of . Discussed care with patient Are you experiencing any new or worsening symptoms you need to talk about today? No Disease Specific Do you check your blood pressure at home? No Do you have new or worsening shortness of breath with activity? No Do you have new or worsening trouble breathing while lying flat? No Do you have new or worsening swelling of legs, feet or ankles? No Do you check your daily weight at home? No Based on assessment expert, the following disposition is advised: No symptoms or symptoms present, not severe. Routed to: No Action Needed NALINI Education Provided this Outreach: No Mitesh Mccabe RN June 12, 2023 3:18 PM documented in this encounterCleveland Clinic [facility]ucl[facility]08-08-2023 History of Present illness Narrative* Mitesh Mccabe RN - 05/19/2023 10:38 AM EDT [facility] Telephonic Outreach Provider Meghana/LAZARUS Heartchf ckd Contacted for: Routine Telephonic Outreach Contact made with patient: No, left message. Mitesh Mccabe RN May 19, 2023 10:39 AM * Mitesh Mccabe RN - 05/18/2023 1:21 PM EDT [facility] Telephonic Outreach Provider Meghana/JOHNNAI -chf, ckd Contacted for: Routine Telephonic Outreach Contact made with patient: No, left message. Mitesh Mccabe RN May 18, 2023 1:21 PM documented in this encounterCleveland Clinic Eucl[facility]07-07-2023 Miscellaneous Notes* Telephone Encounter - Velma Lomas LPN - 04/17/2023 1:06 PM EDT Spoke to and informed her of Fatimah's response to Echo results. Patient voiced understanding. Velma Lomas LPN * Telephone Encounter - Velma Lomas LPN - 04/17/2023 1:05 PM EDT ----- Message from Fatimah Manzano APRN.CNP sent at 04/17/2023 12:20 PM EDT ----- Please call the patient and report echo results revealed normal LV Function, EF 55%. There were no significant structure or valvular abnormalities identified on echocardiogram. Fatimah Manzano APRN.CNP documented in this encounterCleveland Clinic Euclid Hospital07-07-2023 Miscellaneous Notes* Result Encounter Note - Fatimah Manzano APRN.CNP - 04/17/2023 12:20 PM EDT Please call the patient and report echo results revealed normal LV Function, EF 55%. There were no significant structure or valvular abnormalities identified on echocardiogram. Fatimah Manzano APRN.CNP documented in this encounterCleveland Clinic Eucl[facility]07-03-2023 Instructions* Patient Instructions* Rasheed Barrios MD - 04/13/2023 9:36 AM EDT We are going to repeat an echocardiogram documented in this encounterCleveland Clinic Euclid Hospital07-03-2023 History of Present illness Narrative* Rasheed Barrios MD - 04/13/2023 9:20 AM EDT Images from the original note were not included. [facility] SE[facility]AL CARDIOLOGY Cardiology ([facility]) [address] [facility] [id number] OUTPATIENT VISIT DATE 04/13/2023 PRIMARY CARE PHYSICIAN: Atul Harvey [address] [place] [address] HISTORY OF PRESENT ILLNESS: Ms. Crane is a 82 year old woman with history of mild pulmonary hypertension, essential hypertension, rheumatoid arthritis who presents to the office for routine follow-up. Overall patient doing well from a functional standpoint. She does complain of palpitations that are occurring about once a week and lasting for 5 to 10 minutes. She typically takes a few deep breaths and her symptoms resolved. She has not had symptoms concerning for CHF including PND, orthopnea, or lower extremity edema. She is compliant with her Lasix and low-sodium diet. She has not had symptoms of chest pain or pressure. She has some shortness of breath on exertion which is unchanged from prior. PAST MEDICAL HISTORY Diagnosis Date Advance care planning 04/01/2022 Daughter Noemy Arrhythmia Benign neoplasm of colon Chronic kidney disease 02/09/2015 Diverticulosis of colon (without mention of hemorrhage) IFG (impaired fasting glucose) 03/2022 Incisional hernia 07/06/2015 Internal hemorrhoids without mention of complication Rheumatoid arthritis(714.0) Rheumatoid arthritis(714.0) Sicca syndrome (HCC) Unspecified essential hypertension PAST SURGICAL HISTORY Procedure Laterality Date CATARACT EXTRACTION HX 10/12/2004 COLONOSCOPY FLX DX W/COLLJ SPEC WHEN PFRMD 09/30/2005 Colonoscopy COLONOSCOPY FLX DX W/COLLJ SPEC WHEN PFRMD 07/28/2016 Colonoscopy COLONOSCOPY SCREENING 09/30/2022 multiple adenomatous polyps, repeat in 3 yrs ESOPHAGOGASTRODUODENOSCOPY TRANSORAL DIAGNOSTIC 12/21/2014 EGD LAPAROSCOPY SURG CHOLECYSTECTOMY 02/20/2015 NEUROPLASTY &/TRANSPOS MEDIAN NRV CARPAL TUNNE 02/12/2006 Carpal tunnel decomp Left NEUROPLASTY &/TRANSPOS MEDIAN NRV CARPAL TUNNE 02/27/2006 Carpal tunnel decomp Right PAST SURGICAL HISTORY OF 10/12/2001 hemorrhoidectomy , bladder, and umbilical hernia repair PAST SURGICAL HISTORY OF 08/12/2006 bladder suspension REPAIR FIRST ABDOMINAL WALL HERNIA 07/06/2015 with mesh VAGINAL HYSTERECTOMY UTERUS 250 GM/< 10/12/1983 Hysterectomy, vaginal and bladder tacked up SOCIAL HISTORY Social History Tobacco Use Smoking status: Never Smokeless tobacco: Never Vaping Use Vaping Use: Never used Substance Use Topics Alcohol use: No Drug use: No FAMILY HISTORY Problem Relation Age of Onset Diabetes Mother Hypertension Mother Heart Father Diabetes Sister No Known Problems Sister No Known Problems Brother Heart Brother No Known Problems Brother ALLERGIES: ALLERGIES Allergen Reactions Floxin [Ofloxacin] Anaphylaxis Bumex [Bumetanide] Intolerance Hydrochlorothiazide Rash, Intolerance leucocytoclastic vasculitis Keflex [Cephalexin] Rash Naproxen Rash, Hives Norvasc [Amlodipine* Intolerance Penicillins Intolerance Rash Proctosol [Hydrocor* Intolerance Sulfa (Sulfonamide * Rash, GI Upset Colchicine Hives Minoxidil Other: See Comments facial hair MEDICATIONS: losartan (COZAAR) 100 mg tablet^Take 1 tablet by mouth once daily.^Disp: 90 tablet^Rfl: 3 rosuvastatin (CRESTOR) 10 mg tablet^Take 1 tablet by mouth once daily.^Disp: 90 tablet^Rfl: 1 atenolol (TENORMIN) 25 mg tablet^Take 1 tablet by mouth twice daily.^Disp: 180 tablet^Rfl: 1 amLODIPine (NORVASC) 5 mg tablet^Take 1 tablet by mouth once daily.^Disp: 90 tablet^Rfl: 3 potassium chloride ER (KLOR-CON M10) 10 mEq tablet^Take 1 tablet by mouth twice daily.^Disp: 180 tablet^Rfl: 3 Cholecalciferol, Vitamin D3, 50 mcg (2,000 unit) cap^Take 1 capsule by mouth once daily.^Disp: 90 capsule^Rfl: 3 cloNIDine HCl (CATAPRES) 0.2 mg tablet^TAKE 1 TABLET BY MOUTH TWICE A DAY^Disp: 180 tablet^Rfl: 3 allopurinol (ZYLOPRIM) 100 mg tablet^Take 1 tablet by mouth once daily.^Disp: 90 tablet^Rfl: 3 folic acid 1 mg tablet^Take 2 tablets by mouth once daily.^Disp: 180 tablet^Rfl: 3 dicyclomine (BENTYL) 10 mg capsule^Take 1 capsule by mouth before meals and at bedtime. For diarrhea or abdominal cramping^Disp: 30 capsule^Rfl: 1 furosemide (LASIX) 40 mg tablet^Take 1 tablet by mouth once daily.^Disp: 90 tablet^Rfl: 3 cyanocobalamin (VITAMIN B-12) 1,000 mcg tab^Take 1,000 mcg by mouth once daily.^Disp: ^Rfl: triamcinolone acetonide (KENALOG) 0.1 % cream^Apply 1 application to affected area twice daily. On rash, Apply sparingly to area for rash/itching.^Disp: 453.6 g^Rfl: 0 (Patient taking differently: Apply 1 application to affected area twice daily. On rash, Apply sparingly to area for rash/itching. Uses as needed) vit A/vit C/vit E/zinc/copper (OCUVITE PRESERVISION ORAL)^Take by mouth twice daily.^Disp: ^Rfl: nystatin (NYSTOP) powder^Apply 1 application to affected area four times daily as needed. Yeast infection/rash in groin and under breasts^Disp: 120 g^Rfl: 1 apremilast (OTEZLA) 30 mg tablet^Take 30 mg by mouth twice daily.^Disp: ^Rfl: hydrocortisone probutate 0.1 % crea^Apply to affected area once daily as needed.^Disp: ^Rfl: loratadine (CLARITIN) 10 mg tablet^Take 10 mg by mouth once daily. Takes daily as needed^Disp: ^Rfl: acetaminophen (TYLENOL) 325 mg tablet^Take 650 mg by mouth every 6 hours as needed.^Disp: ^Rfl: lansoprazole (PREVACID) 30 mg capsule^Take 1 capsule by mouth twice daily. 1/2 hour before meals.^Disp: 180 capsule^Rfl: 3 (Patient not taking: Reported on 04/13/2023) REVIEW OF SYSTEMS: Review of Systems Constitutional: Negative for chills, fever, malaise/fatigue and weight loss. HENT: Negative for hearing loss and sore throat. Eyes: Negative for blurred vision and double vision. Respiratory: Negative. Cardiovascular: Positive for palpitations. Gastrointestinal: Negative. Genitourinary: Negative for dysuria, frequency, hematuria and urgency. Musculoskeletal: Positive for joint pain. Skin: Negative. Neurological: Negative for dizziness, seizures, loss of consciousness, weakness and headaches. Endo/Heme/Allergies: Negative for environmental allergies. Does not bruise/bleed easily. Psychiatric/Behavioral: Negative for depression. PHYSICAL EXAMINATION: BP 132/70 Pulse (!) 58 Wt 74.4 kg (164 lb) SpO2 97% BMI 29.05 kg/m General: Pleasant woman sitting appears comfortable and in no apparent distress. She is alert and oriented x3 HEENT: Carotid upstrokes are brisk bilaterally without bruits. No JVD appreciated. Pulmonary: Lungs are clear no rales, wheezes, or rhonchi. Cardiovascular: Normal S1-S2. Occasional ectopic beats but otherwise regular rate and rhythm. No murmurs, rubs, or gallops appreciated. Extremities: Warm, well-perfused, no lower extremity edema. Dorsalis pedis and posterior tibial pulses are 1-2+. CARDIOVASCULAR MEDICINE TESTING: ECG in the office 09/29/2022: Normal sinus rhythm with sinus arrhythmia. First- degree AV block (244ms). Occasional PVCs. No significant ST or T wave changes ECG in the office 09/02/2021: Normal sinus rhythm with first-degree AV block and occasional conducted PACs. Nonspecific ST-T wave changes noted in leads V1 through V3 Echocardiogram 06/07/2020: - Technically difficult exam due to body habitus. - Exam indication: Shortness of Breath - The left ventricle is normal in size. Left ventricular systolic function is normal. EF = 58 5% (2D biplane) Indeterminate left ventricular diastolic dysfunction due to inconsistent or technically suboptimal data. - The right ventricle is normal in size. Right ventricular systolic function is normal. - There are no significant valvular abnormalities. - The visualized aorta is borderline dilated with a maximal dimension of 3.8 cm. - Estimated right ventricular systolic pressure is 38 mmHg consistent with mild pulmonary hypertension. Estimated right atrial pressure is 8 mmHg based on IVC assessment. - Exam was compared with the prior echocardiographic exam performed on 08/12/2011 (Stress), MR appears a little bit less today. Lexiscan Cardiolite stress test 07/15/2016: Soft tissue attenuation artifact. No evidence of myocardial ischemia or scar Gated study reports of left ventricular ejection fraction of 77% IMPRESSION: Ms. Crane is a 82 year old woman with a history of, chronic diastolic heart failure, hypertension, dyslipidemia, and mild pulmonary hypertension who presents for routine follow-up. PLAN AND RECOMMENDATIONS: 1. Hypertension, essential - ICD9: 401.9, ICD10: I10 (primary diagnosis) has been well controlled on current medical regimen. Continue current treatment 2. Chronic diastolic congestive heart failure (HCC) - ICD9: 428.32, 428.0, ICD10: I50.32 Well-controlled on current diuretic therapy low-sodium diet 3. Pulmonary hypertension (HCC) - ICD9: 416.8, ICD10: I27.20 Plan to repeat 2D echocardiogram for assessment of pulmonary pressures. 4. PVC (premature ventricular contraction) - ICD9: 427.69, ICD10: I49.3 Asymptomatic. 5. Thoracic aortic ectasia (HCC) - ICD9: 447.71, ICD10: I77.810 6. Dyslipidemia - ICD9: 272.4, ICD10: E78.5 Patient maintained on Crestor 10 mg daily. Recent fasting blood work January 2023 was reviewed. LDL cholesterol 43 mg/dL 7. Palpitations - ICD9: 785.1, ICD10: R00.2 Brief episodes of possible SVT. At present, there brief and self-limited. I have scheduled for an echocardiogram. If she has worsening symptoms may consider repeat ZIO monitor. - ECHO - PERFLUTREN LIPID MICROSPHERES 1.1 MG/ML INJECTION IN NS 10 ML - SODIUM CHLORIDE 0.9 % (FLUSH) INJECTION SYRINGE Rasheed Barrios MD documented in this encounterC[facility] Miscellaneous Notes* Telephone Encounter - Ellen Christopher LPN - 03/18/2023 3:45 PM EDT Pt was made aware. * Telephone Encounter - Cecilia Sky PA-C - 03/18/2023 1:41 PM EDT Patient had this refilled 02/02/23 for a 1 year supply (#90, with 3 refills). Cecilia Sky PA-C * Telephone Encounter - Ellen Christopher LPN - 03/18/2023 10:15 AM EDT Cecilio--02/02/23 Nov--03/18/23 Last refill--02/02/23 90 with 3 refills Last labs--01/26/23 * Telephone Encounter - Kassy Hussein - 03/18/2023 8:54 AM EDT Patient has been identified by name and date of : Yes Last office visit in this department: 02/02/2023 RX INSTRUCTIONS: Patient aware RX will be sent to pharmacy. No need to notify patient. Patient phones requesting refills as follows: Requested Prescriptions Pending Prescriptions Disp Refills amLODIPine (NORVASC) 5 mg tablet 90 tablet 3 Sig: Take 1 tablet by mouth once daily. Please review and advise. Kassy Hussein documented in this encounterC[facility]06-07-2023 Instructions* Patient Instructions* Areli Duncan APRN.CNP - 03/18/2023 1:42 PM EDT Start zpack, take as directed. Stay well hydrated. May continue to use over the counter cold an cough medications as needed. Follow up as needed. documented in this encounterCleveland [facility]06-07-2023 History of Present illness Narrative* Areli uDncan APRN.CNP - 03/18/2023 1:40 PM EDT This is a 82 year old female who presents today with: Patient presents with: Acute Visit: cought, chest congestion and sneezing HISTORY OF PRESENT ILLNESS: Mary Crane is a 82 year old female. Patient presents with: Acute Visit: cought, chest congestion and sneezing Patient of Dr. Harvey here in the office for cough, chest congestion, and sneezing. Symptoms started last , was painting outside. Cough has been productive, yellow/green mucus. No fever or chills. Has been taking mucinex. PAST MEDICAL HISTORY: PAST MEDICAL HISTORY Diagnosis Date Advance care planning 04/01/2022 Daughter Noemy Arrhythmia Benign neoplasm of colon Chronic kidney disease 02/09/2015 Diverticulosis of colon (without mention of hemorrhage) IFG (impaired fasting glucose) 03/2022 Incisional hernia 07/06/2015 Internal hemorrhoids without mention of complication Rheumatoid arthritis(714.0) Rheumatoid arthritis(714.0) Sicca syndrome (HCC) Unspecified essential hypertension PAST SURGICAL HISTORY Procedure Laterality Date CATARACT EXTRACTION HX 10/12/2004 COLONOSCOPY FLX DX W/COLLJ SPEC WHEN PFRMD 09/30/2005 Colonoscopy COLONOSCOPY FLX DX W/COLLJ SPEC WHEN PFRMD 07/28/2016 Colonoscopy COLONOSCOPY SCREENING 09/30/2022 multiple adenomatous polyps, repeat in 3 yrs ESOPHAGOGASTRODUODENOSCOPY TRANSORAL DIAGNOSTIC 12/21/2014 EGD LAPAROSCOPY SURG CHOLECYSTECTOMY 02/20/2015 NEUROPLASTY &/TRANSPOS MEDIAN NRV CARPAL TUNNE 02/12/2006 Carpal tunnel decomp Left NEUROPLASTY &/TRANSPOS MEDIAN NRV CARPAL TUNNE 02/27/2006 Carpal tunnel decomp Right PAST SURGICAL HISTORY OF 10/12/2001 hemorrhoidectomy , bladder, and umbilical hernia repair PAST SURGICAL HISTORY OF 08/12/2006 bladder suspension REPAIR FIRST ABDOMINAL WALL HERNIA 07/06/2015 with mesh VAGINAL HYSTERECTOMY UTERUS 250 GM/< 10/12/1983 Hysterectomy, vaginal and bladder tacked up ALLERGIES Floxin [Ofloxacin], Bumex [Bumetanide], Hydrochlorothiazide, Keflex [Cephalexin], Naproxen, Norvasc [Amlodipine Besylate], Penicillins, Proctosol [Hydrocortisone Acetate], Sulfa (Sulfonamide Antibiotics), Colchicine, and Minoxidil MEDICATIONS Current Outpatient Medications Medication Sig losartan (COZAAR) 100 mg tablet Take 1 tablet by mouth once daily. rosuvastatin (CRESTOR) 10 mg tablet Take 1 tablet by mouth once daily. atenolol (TENORMIN) 25 mg tablet Take 1 tablet by mouth twice daily. amLODIPine (NORVASC) 5 mg tablet Take 1 tablet by mouth once daily. potassium chloride ER (KLOR-CON M10) 10 mEq tablet Take 1 tablet by mouth twice daily. Cholecalciferol, Vitamin D3, 50 mcg (2,000 unit) cap Take 1 capsule by mouth once daily. cloNIDine HCl (CATAPRES) 0.2 mg tablet TAKE 1 TABLET BY MOUTH TWICE A DAY allopurinol (ZYLOPRIM) 100 mg tablet Take 1 tablet by mouth once daily. folic acid 1 mg tablet Take 2 tablets by mouth once daily. lansoprazole (PREVACID) 30 mg capsule Take 1 capsule by mouth twice daily. 1/2 hour before meals. dicyclomine (BENTYL) 10 mg capsule Take 1 capsule by mouth before meals and at bedtime. For diarrhea or abdominal cramping furosemide (LASIX) 40 mg tablet Take 1 tablet by mouth once daily. cyanocobalamin (VITAMIN B-12) 1,000 mcg tab Take 1,000 mcg by mouth once daily. triamcinolone acetonide (KENALOG) 0.1 % cream Apply 1 application to affected area twice daily. On rash, Apply sparingly to area for rash/itching. (Patient taking differently: Apply 1 application to affected area twice daily. On rash, Apply sparingly to area for rash/itching. Uses as needed) vit A/vit C/vit E/zinc/copper (OCUVITE PRESERVISION ORAL) Take by mouth twice daily. nystatin (NYSTOP) powder Apply 1 application to affected area four times daily as needed. Yeast infection/rash in groin and under breasts apremilast (OTEZLA) 30 mg tablet Take 30 mg by mouth twice daily. hydrocortisone probutate 0.1 % crea Apply to affected area once daily as needed. loratadine (CLARITIN) 10 mg tablet Take 10 mg by mouth once daily. Takes daily as needed acetaminophen (TYLENOL) 325 mg tablet Take 650 mg by mouth every 6 hours as needed. Current Facility-Administered Medications Medication Dose Route Frequency perflutren lipid microspheres 1.3 mL in NaCl (PF) 0.9% 10 mL injection (DEFINITY) INTRAVENOUS DIRECTED PRN sodium chloride 0.9 % (flush) 10 mL (BD POSIFLUSH) 10 mL INTRAVENOUS DIRECTED PRN FAMILY HISTORY Problem Relation Age of Onset Diabetes Mother Hypertension Mother Heart Father Diabetes Sister No Known Problems Sister No Known Problems Brother Heart Brother No Known Problems Brother Social History Tobacco Use Smoking status: Never Smokeless tobacco: Never Vaping Use Vaping Use: Never used Substance Use Topics Alcohol use: No Drug use: No REVIEW OF SYSTEMS GENERAL: No weight loss, malaise or fevers/chills HEENT: Negative for frequent or significant headaches, No changes in hearing or vision. NECK: Negative for lumps, goiter, pain and significant neck swelling RESPIRATORY: + Cough/Chest Congestion CARDIOVASCULAR: Negative for chest pain, leg swelling, orthopnea, or palpitations GI: No nausea, vomiting, or diarrhea/constipation. No hematochezia/melena. No heartburn or reflux symptoms. : No history of dysuria, frequency or incontinence MUSCULOSKELETAL: Negative for joint pain or swelling. SKIN: Negative for lesions, rash, and itching ENDOCRINE: Negative for cold or heat intolerance, polyuria, polydipsia and goiter NEURO: No history of headaches, syncope, paralysis, seizures or tremors MOOD: Negative for depression, anxiety, or suicidal ideation. EXAM: BP 140/82 Pulse 66 Temp 37.2 C (99 F) Resp 16 Wt 75.3 kg (166 lb) SpO2 96% BMI 29.41 kg/m PHYSICAL EXAM: General Appearance: Well appearing, alert, in no acute distress, well-hydrated, well nourished. Skin: Skin color, texture, turgor normal, no suspicious rashes or lesions. Head: Normocephalic, no masses, lesions, tenderness or abnormalities. Eyes: Anicteric sclera. Extraocular movements are intact. Ears: External ears normal, canals clear. Tm's pearly hughes. Neck: Supple, no adenopathy; thyroid symmetric, normal size, no bruits. Lungs: Diminished lung sounds. Heart: RRR without murmur, gallop, or rubs. No ectopy. Extremities: No deformities, edema, skin discoloration, clubbing or cyanosis. Good capillary refill. Peripheral Pulses: Normal, Capillary refill <2secs, strong peripheral pulses, Pulses palpable. Neurologic: Gait normal. Sensation grossly intact. ASSESSMENT/PLAN: 1. Acute bronchitis, unspecified organism - ICD9: 466.0, ICD10: J20.9 - Start Zpack - May continue supportive care at home - May use [id number] cold and cough medication as needed for symptom management. - AZITHROMYCIN 250 MG TABLET Follow-up as needed or sooner if symptoms get worse or do not improve. Discussed treatment plan and patient voices understanding. Patient's questions answered appropriately. Medications and potential side effects were discussed and patient voices understanding. Areli Duncan APRN.FELICIA This note was partially generated using [employer] voice recognition system. Note was reviewed for accuracy. There may be minor misspellings or grammar miscues with [employer] voice recognition. documented in this encounterC[facility]06-07-2023 Miscellaneous Notes* Telephone Encounter - Natasha Gonzalez LPN - 03/18/2023 10:01 AM EDT Disregard previous message. Pt was scheduled for an appt today. Natasha Gonzalez LPN * Telephone Encounter - Natasha Gonzalez LPN - 03/18/2023 9:00 AM EDT Pt states she has been having allergy sx for about 1 wk, states they started after she was outdoorspainting. Reports cough, sneezing & chest congestion. No fever noted. pt is asking for a refillfor tessalon perles. Please advise. Natasha Gonzalez LPN documented in this encounterC[facility]06-05-2023 History of Present illness Narrative* Mitesh Mccabe RN - 03/16/2023 2:03 PM EDT [facility] Telephonic Outreach Provider Action/FYI -chf, ckd Contacted for: Routine Telephonic Outreach Contact made with patient: Yes Patient identified by name and date of . Discussed care with patient Are you experiencing any new or worsening symptoms you need to talk about today? No Disease Specific Do you check your blood pressure at home? No Do you have new or worsening shortness of breath with activity? Noabout the same Do you have new or worsening trouble breathing while lying flat? No Do you have new or worsening swelling of legs, feet or ankles? No Do you feel like you are dehydrated for any reason, including not being able to eat or drink normally, or having less urine/much darker urine than normal for you? No Do you check your daily weight at home? No Based on assessment expert, the following disposition is advised: No symptoms or symptoms present, not severe. Routed to: No Action Needed NALINI Education Provided this Outreach: No Mitesh Mccabe RN March 16, 2023 2:06 PM documented in this encounterC[facility]05-15-2023 Miscellaneous Notes* Telephone Encounter - Areli Duncan APRN.CNP - 02/23/2023 9:56 AM EDT The following approved medication requests have been transmitted electronically. Requested Prescriptions Pending Prescriptions Disp Refills losartan (COZAAR) 100 mg tablet 90 tablet 3 Sig: Take 1 tablet by mouth once daily. Areli Duncan APRN.CNP * Telephone Encounter - Ellen Christopher LPN - 02/23/2023 9:29 AM EDT Cecilio--01/13/23 Nov--08/05/23 Last refill--04/02/22 90 with 3 refills Last labs--01/26/23 * Telephone Encounter - Caryn Rodriguez - 02/23/2023 9:24 AM EDT Patient has been identified by name and date of : Yes Requested Prescriptions Pending Prescriptions Disp Refills losartan (COZAAR) 100 mg tablet 90 tablet 3 Sig: Take 1 tablet by mouth once daily. RX INSTRUCTIONS: Used last refill, calling ahead. Patient aware RX will be sent to pharmacy. No need to notify patient. Caryn Rodriguez documented in this encounterCleveland [facility]04-26-2023 History of Present illness Narrative* Atul Harvey, DO - 02/04/2023 7:26 AM EDT CC: Mary Crane is a 82 year old female who presents to the office for follow up HPI: Elevated Alkaline phosphatase, isoenzyme is showing bone source of this. Denies any worsening bone or joint pains or other symptoms. Appetite is normal. No new bruising or bleeding. No hot flashes orsweats. Her LDL and serum protein electropheresis labs are both normal CKD stage 2-3, mild, has increased her water intake as recommended, avoids NSAIDs as d/w her previous Glucose (mg/dL) Date Value 01/26/2023 117 11/25/2021 103 Potassium (mmol/L) Date Value 01/26/2023 4.3 11/25/2021 4.0 Sodium (mmol/L) Date Value 01/26/2023 140 11/25/2021 140 Chloride (mmol/L) Date Value 01/26/2023 103 11/25/2021 104 CO2 (mmol/L) Date Value 01/26/2023 28 11/25/2021 28 Creatinine (mg/dL) Date Value 01/26/2023 1.08 11/25/2021 1.03 BUN (mg/dL) Date Value 01/26/2023 13 11/25/2021 13 Anion Gap (mmol/L) Date Value 01/26/2023 9 11/25/2021 8 Calcium (mg/dL) Date Value 11/25/2021 9.4 Calcium, Total (mg/dL) Date Value 01/26/2023 9.3 Protein, Total (g/dL) Date Value 01/26/2023 7.5 11/25/2021 7.5 Albumin (g/dL) Date Value 01/26/2023 4.0 11/25/2021 3.8 Bilirubin, Total (mg/dL) Date Value 01/26/2023 0.9 11/25/2021 0.5 Alkaline Phosphatase (U/L) Date Value 01/26/2023 122 11/25/2021 121 AST (U/L) Date Value 01/26/2023 31 11/25/2021 20 ALT (U/L) Date Value 01/26/2023 24 11/25/2021 15 Lactose intolerance, occasional diarrhea/abd cramping IFG, diet controlled Hemoglobin A1C Date Value Ref Range Status 01/26/2023 5.5 4.3 - 5.6 % Final Comment: [place] [employer] guidelines indicate that patients with HgbA1c in the range 5.7-6.4% are at increased risk for development of diabetes, and intervention by lifestyle modification may be beneficial. HgbA1c greater or equal to 6.5% is considered diagnostic of diabetes. 07/01/2022 5.6 4.3 - 5.6 % Final Comment: [place] [employer] guidelines indicate that patients with HgbA1c in the range 5.7-6.4% are at increased risk for development of diabetes, and intervention by lifestyle modification may be beneficial. HgbA1c greater or equal to 6.5% is considered diagnostic of diabetes. 03/27/2022 5.7 (H) 4.3 - 5.6 % Final Comment: [place] [employer] guidelines indicate that patients with HgbA1c in the range 5.7-6.4% are at increased risk for development of diabetes, and intervention by lifestyle modification may be beneficial. HgbA1c greater or equal to 6.5% is considered diagnostic of diabetes. 01/29/2021 5.5 4.3 - 5.6 % Final Comment: [place] [employer] guidelines indicate that patients with HgbA1c in the range 5.7-6.4% are at increased risk for development of diabetes, and intervention by lifestyle modification may be beneficial. HgbA1c greater or equal to 6.5% is considered diagnostic of diabetes. 06/29/2017 5.4 4.3 - 5.6 % Final RA, seen by Surgeon Assistant for care, taking Otezla as prescribed Rash, arms and back, itching and red, was using dryer sheets and has stopped doing this. Is using cream as needed HTN, well controlled, taking medications as prescribed. 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 routinely, Only occasional palpitations and heart racing symptoms as well as dyspnea if she is exerting up an incline such aswalking up her driveway after getting her mail, no chest pressure or Pain . Last ECHO was 05/2020 PAST MEDICAL HISTORY Diagnosis Date Advance care planning 04/01/2022 Daughter Noemy Rene Benign neoplasm of colon Chronic kidney disease 02/09/2015 Diverticulosis of colon (without mention of hemorrhage) IFG (impaired fasting glucose) 03/2022 Incisional hernia 07/06/2015 Internal hemorrhoids without mention of complication Rheumatoid arthritis(714.0) Rheumatoid arthritis(714.0) Sicca syndrome (HCC) Unspecified essential hypertension PAST SURGICAL HISTORY Procedure Laterality Date CATARACT EXTRACTION HX 10/12/2004 COLONOSCOPY FLX DX W/COLLJ SPEC WHEN PFRMD 09/30/2005 Colonoscopy COLONOSCOPY FLX DX W/COLLJ SPEC WHEN PFRMD 07/28/2016 Colonoscopy COLONOSCOPY SCREENING 09/30/2022 multiple adenomatous polyps, repeat in 3 yrs ESOPHAGOGASTRODUODENOSCOPY TRANSORAL DIAGNOSTIC 12/21/2014 EGD LAPAROSCOPY SURG CHOLECYSTECTOMY 02/20/2015 NEUROPLASTY &/TRANSPOS MEDIAN NRV CARPAL TUNNE 02/12/2006 Carpal tunnel decomp Left NEUROPLASTY &/TRANSPOS MEDIAN NRV CARPAL TUNNE 02/27/2006 Carpal tunnel decomp Right PAST SURGICAL HISTORY OF 10/12/2001 hemorrhoidectomy , bladder, and umbilical hernia repair PAST SURGICAL HISTORY OF 08/12/2006 bladder suspension REPAIR FIRST ABDOMINAL WALL HERNIA 07/06/2015 with mesh VAGINAL HYSTERECTOMY UTERUS 250 GM/< 10/12/1983 Hysterectomy, vaginal and bladder tacked up Current Outpatient Medications Medication Sig Cholecalciferol, Vitamin D3, 50 mcg (2,000 unit) cap Take 1 capsule by mouth once daily. cloNIDine HCl (CATAPRES) 0.2 mg tablet TAKE 1 TABLET BY MOUTH TWICE A DAY allopurinol (ZYLOPRIM) 100 mg tablet Take 1 tablet by mouth once daily. lansoprazole (PREVACID) 30 mg capsule Take 1 capsule by mouth twice daily. 1/2 hour before meals. dicyclomine (BENTYL) 10 mg capsule Take 1 capsule by mouth before meals and at bedtime. For diarrhea or abdominal cramping furosemide (LASIX) 40 mg tablet Take 1 tablet by mouth once daily. losartan (COZAAR) 100 mg tablet Take 1 tablet by mouth once daily. cyanocobalamin (VITAMIN B-12) 1,000 mcg tab Take 1,000 mcg by mouth once daily. triamcinolone acetonide (KENALOG) 0.1 % cream Apply 1 application to affected area twice daily. On rash, Apply sparingly to area for rash/itching. (Patient taking differently: Apply 1 application to affected area twice daily. On rash, Apply sparingly to area for rash/itching. Uses as needed) vit A/vit C/vit E/zinc/copper (OCUVITE PRESERVISION ORAL) Take by mouth twice daily. nystatin (NYSTOP) powder Apply 1 application to affected area four times daily as needed. Yeast infection/rash in groin and under breasts apremilast (OTEZLA) 30 mg tablet Take 30 mg by mouth twice daily. hydrocortisone probutate 0.1 % crea Apply to affected area once daily as needed. loratadine (CLARITIN) 10 mg tablet Take 10 mg by mouth once daily. Takes daily as needed acetaminophen (TYLENOL) 325 mg tablet Take 650 mg by mouth every 6 hours as needed. rosuvastatin (CRESTOR) 10 mg tablet Take 1 tablet by mouth once daily. atenolol (TENORMIN) 25 mg tablet Take 1 tablet by mouth twice daily. amLODIPine (NORVASC) 5 mg tablet Take 1 tablet by mouth once daily. potassium chloride ER (KLOR-CON M10) 10 mEq tablet Take 1 tablet by mouth twice daily. folic acid 1 mg tablet Take 2 tablets by mouth once daily. Current Facility-Administered Medications Medication Dose Route Frequency perflutren lipid microspheres 1.3 mL in NaCl (PF) 0.9% 10 mL injection (DEFINITY) INTRAVENOUS DIRECTED PRN sodium chloride 0.9 % (flush) 10 mL (BD POSIFLUSH) 10 mL INTRAVENOUS DIRECTED PRN ALLERGIES Allergen Reactions Floxin [Ofloxacin] Anaphylaxis Bumex [Bumetanide] Intolerance Hydrochlorothiazide Rash, Intolerance leucocytoclastic vasculitis Keflex [Cephalexin] Rash Naproxen Rash, Hives Norvasc [Amlodipine* Intolerance Penicillins Intolerance Rash Proctosol [Hydrocor* Intolerance Sulfa (Sulfonamide * Rash, GI Upset Colchicine Hives Minoxidil Other: See Comments facial hair Social History Tobacco Use Smoking status: Never Smokeless tobacco: Never Vaping Use Vaping Use: Never used Substance Use Topics Alcohol use: No Drug use: No ROS: See HPI PE: BP 130/70 Pulse 64 Temp (Src) 97 (Right Tympanic) Resp 16 Wt 166 lb (75.3kg) Gen: A&OX3, NAD, non-toxic appearing, hard of hearing HEENT: PERRLA, EOMs intact b/l, nares without drainage, pharynx without erythema, exudate, lesions,or drainage. Uvula midline. MMM, wearing glasses Neck: No LAD, no thyromegaly, no meningismus. CV: RRR, no murmur Lungs: CTA b/l, no wheezing Skin: erythematous mild papular rash on left inner wrist and right flank/mid back without signs of blistering or infection Arthritis changes of peripheral joints including hands, wrists, feet, ankles, knees No peripheral edema, normal pulses ASSESSMENT/PLAN: 1. Hypertension, essential - ICD9: 401.9, ICD10: I10 (primary diagnosis) - good control - Continue current medication(s) - Encouraged dietary sodium restriction/DASH diet - Recommended regular aerobic exercise. - Recommend home blood pressure monitoring, to bring results in on next visit - Discussed need and benefit for weight loss. - Goal of BP <130/80 - ATENOLOL 25 MG TABLET - AMLODIPINE 5 MG TABLET 2. Hypokalemia - ICD9: 276.8, ICD10: E87.6 rx refilled, stable - POTASSIUM CHLORIDE ER 10 MEQ TABLET,EXTENDED RELEASE(PART/CRYST) 3. Vitamin D deficiency - ICD9: 268.9, ICD10: E55.9 Continue supplement - VITAMIN D 25 HYDROXY 4. Alkaline phosphatase elevation - ICD9: 790.5, ICD10: R74.8 Stable, overall work up stable/negative. 5. IFG (impaired fasting glucose) - ICD9: 790.21, ICD10: R73.01 - recheck labs and continue good diet control - COMP METABOLIC PANEL - CBC - HGB A1C 6. Dyslipidemia - ICD9: 272.4, ICD10: E78.5 - suboptimal control - Encouraged following a low fat, low cholesterol diet. - Discussed the benefits of regular aerobic exercise and weight loss. - Check fasting lipid panel and ALT in 6 months. - COMP METABOLIC PANEL - CBC - LIPID PANEL BASIC 7. Vitamin B12 deficiency - ICD9: 266.2, ICD10: E53.8 Continue supplement, recheck labs in 6 months. - VITAMIN B12 BLOOD 8. Stage 3b chronic kidney disease (HCC) - ICD9: 585.3, ICD10: N18.32 - eGFR: Stable - Counseled on avoiding regular use of NSAIDs, adequate hydration, potential risk of IV dye - Recommend maintaining A1c < 7% - Recommend maintaining blood pressure under 130/80 9. Rheumatoid arthritis involving multiple sites with positive rheumatoid factor (HCC) - ICD9: 714.0, ICD10: M05.79 - f/u with Rheumatology Atul Harvey DO Return if no improvement. Follow up with Atul Harvey DO. To ER if develops chest pain, shortness of breath Discussed risks, benefits, alternatives, and potential side effects of medications. Patient/Guardian expressed understanding and agreed with the plan. See patient instructions. Atul Harvey DO [address] [place] [address] documented in this encounterC[facility]04[facility]24-[facility]23 Instructions* Patient Instructions* Atul Harvey DO - 02/02/2023 10:22 AM EDT Take a deep breath and hold it Or Drink glass of cold water Or Bear down and hold like you are having a bowel movement When your heart races documented in this encounterC[facility]03-27-2023 Miscellaneous Notes* Telephone Encounter - Christel Wagner RN - 01/05/2023 8:43 AM EDT Patient has been identified by name and date of : Yes, Provider Dr Harvey Date 01/05/23 Time 0844. Patient phones for refill(s): Requested Prescriptions Pending Prescriptions Disp Refills Cholecalciferol, Vitamin D3, 50 mcg (2,000 unit) cap 90 capsule 3 Sig: Take 1 capsule by mouth once daily. Date of last office visit in primary care: 09/16/22 Future visit: 02/02/23 Last 2 Encounter Wt Readings: Date: Wt: 10/08/2022 74.1 kg (163 lb 6.4 oz) 09/30/2022 73.5 kg (162 lb 0.6 oz) Previous labs/tests for medication: Blood Pressure: BUN (mg/dL) Date Value 09/12/2022 14 11/25/2021 13 Sodium (mmol/L) Date Value 09/12/2022 139 11/25/2021 140 Last 1 Encounter BP Readings: Date: BP: 10/08/2022 120/68 Liver Function: ALT (U/L) Date Value 09/12/2022 20 11/25/2021 15 AST (U/L) Date Value 09/12/2022 22 11/25/2021 20 Please advise. Thank you. Christel Wagner RN documented in this encounterC[facility]03-20-2023 Miscellaneous Notes* Telephone Encounter - Ellen Christopher LPN - 12/29/2022 10:41 AM EDT Cecilio--09/16/22 Nov--02/02/23 Last refill--01/02/22 90 with 3 refills Last labs09/16/22-- * Telephone Encounter - Gabbi Carbajal - 12/29/2022 9:44 AM EDT Patient has been identified by name and date of : Yes Requested Prescriptions Pending Prescriptions Disp Refills allopurinol (ZYLOPRIM) 100 mg tablet 90 tablet 3 Sig: Take 1 tablet by mouth once daily. RX INSTRUCTIONS: Patient aware RX will be sent to pharmacy. No need to notify patient. Gabbi Carbajal documented in this encounterCleveland Clinic [facility]03-13-2023 History of Present illness Narrative* Katja Lo RN - 12/22/2022 2:10 PM EDT [facility] TELEPHONIC OUTREACH Provider Action/FYI: No CDM concerns at this time. Denies any new or worsening symptoms. No questions/concerns/needs at this time. Contact made with patient: Yes Patient identified by name and . Discussed care with patient It s nice talking to you again. As a reminder, this is our bi-weekly check-in where I will be asking you questions about your health. This will only take a few minutes of your time. Is this a good time? Yes Symptoms What Chronic Disease(s) does the patient have: CHF and CKD Do you check your blood pressures at home? No Do you have new or worse shortness of breath with activity? No Do you have new or worsening trouble breathing while lying flat? No Do you have new or worsening swelling of legs, feet or ankles? No Do you feel like you are dehydrated for any reason, including not being able to eat or drink normally, or having less urine/much darker urine than normal for you? No Do you check your daily weight at home? No Are you having any other symptoms that your PCP needs to know about? No Symptoms: Symptom Escalation NALINI Education Ordered -: No The patient required an escalation for symptom(s)? No Medications Do you have any questions about taking your medication or which medications you should be on? No Do you need any medication refills at this time, including any of the medications you might take only when needed? No Social We would like to make sure you have what you need so that your basic needs are met- including your personal safety, food, housing, transportation and medications? Would you like to speak with a social work telesales team leader to help give you support for any of these needs? No It can be normal to feel anxious or down during a time like this. Would you like to talk to a mental health professional about how you have been feeling? No Closing Thank you for taking the time to talk with me today. We want to work with you to ensure that we arekeeping your medical condition(s) well-controlled and to keep you healthy and out of the doctor's office or hospital. It s also not too late for me to sign you up for automated weekly questionnaires through [employer]. This is an easy way for us to stay connected each week. Are you interested? No, I understand. We can always sign you up in the future if you change your mind. Just as a reminder, will continue to call you every other week to check in on your health. Our calls should take 10-15 minutes or less. Remember, if you have concerns in between our calls, please call your PCP's office right away. Thank you. Enter next patient outreach date for two weeks on the same day of the week as today in the Track PtOutreach and End outreach. documented in this encounterC[facility]02-22-2023 Miscellaneous Notes* Telephone Encounter - Lori Josue LPN - 12/03/2022 10:27 AM EST Patient phones requesting refills as follows: Requested Prescriptions Pending Prescriptions Disp Refills rosuvastatin (CRESTOR) 10 mg tablet [Pharmacy Med Name: ROSUVASTATIN CALCIUM 10 MG TAB] 30 tablet 2 Sig: TAKE 1 TABLET BY MOUTH EVERY DAY CEICLIO-09/16/22 Labs-11/14/21 NOV-02/02/23 med filled 10/08/22 Please review and advise. Lori Josue LPN documented in this encounterCleveland Clinic [facility]02-17-2023 History of Present illness Narrative* Katja Lo RN - 11/28/2022 1:22 PM EST [facility] TELEPHONIC OUTREACH Provider Action/FYI: No CDM concerns at this time. Denies any new or worsening symptoms. No questions/concerns/needs at this time. Contact made with patient: Yes Patient identified by name and . Discussed care with patient It s nice talking to you again. As a reminder, this is our bi-weekly check-in where I will be asking you questions about your health. This will only take a few minutes of your time. Is this a good time? Yes Symptoms What Chronic Disease(s) does the patient have: CHF and CKD Do you check your blood pressures at home? No Do you have new or worse shortness of breath with activity? No Do you have new or worsening trouble breathing while lying flat? No Do you have new or worsening swelling of legs, feet or ankles? No Do you feel like you are dehydrated for any reason, including not being able to eat or drink normally, or having less urine/much darker urine than normal for you? No Do you check your daily weight at home? No Are you having any other symptoms that your PCP needs to know about? No Symptoms: Symptom Escalation NALINI Education Ordered -: No The patient required an escalation for symptom(s)? No Medications Do you have any questions about taking your medication or which medications you should be on? No Do you need any medication refills at this time, including any of the medications you might take only when needed? No Social We would like to make sure you have what you need so that your basic needs are met- including your personal safety, food, housing, transportation and medications? Would you like to speak with a social work telesales team leader to help give you support for any of these needs? No It can be normal to feel anxious or down during a time like this. Would you like to talk to a mental health professional about how you have been feeling? No Closing Thank you for taking the time to talk with me today. We want to work with you to ensure that we arekeeping your medical condition(s) well-controlled and to keep you healthy and out of the doctor's office or hospital. It s also not too late for me to sign you up for automated weekly questionnaires through [employer]. This is an easy way for us to stay connected each week. Are you interested? No, I understand. We can always sign you up in the future if you change your mind. Just as a reminder, will continue to call you every other week to check in on your health. Our calls should take 10-15 minutes or less. Remember, if you have concerns in between our calls, please call your PCP's office right away. Thank you. Enter next patient outreach date for two weeks on the same day of the week as today in the Track PtOutreach and End outreach. documented in this encounterC[facility]01-25-2023 History of Present illness Narrative* Katja Lo RN - 11/05/2022 4:46 PM EST [facility] TELEPHONIC OUTREACH Provider Action/FYI: Contact made with patient: Yes Patient identified by name and . Discussed care with patient It s nice talking to you again. As a reminder, this is our bi-weekly check-in where I will be asking you questions about your health. This will only take a few minutes of your time. Is this a good time? Yes Symptoms What Chronic Disease(s) does the patient have: CHF and CKD Do you check your blood pressures at home? No Do you have new or worse shortness of breath with activity? No Do you have new or worsening trouble breathing while lying flat? No Do you have new or worsening swelling of legs, feet or ankles? No Do you feel like you are dehydrated for any reason, including not being able to eat or drink normally, or having less urine/much darker urine than normal for you? No Do you check your daily weight at home? No Are you having any other symptoms that your PCP needs to know about? No Symptoms: Symptom Escalation NALINI Education Ordered -: No The patient required an escalation for symptom(s)? No Medications Do you have any questions about taking your medication or which medications you should be on? No Do you need any medication refills at this time, including any of the medications you might take only when needed? No Social We would like to make sure you have what you need so that your basic needs are met- including your personal safety, food, housing and medications? Would you like to speak with a social work telesales team leader to help give you support for any of these needs? No It can be normal to feel anxious or down during a time like this. Would you like to talk to a mental health professional about how you have been feeling? No Closing Thank you for taking the time to talk with me today. We want to work with you to ensure that we arekeeping your medical condition(s) well-controlled and to keep you healthy and out of the doctor's office or hospital. It s also not too late for me to sign you up for automated weekly questionnaires through [employer]. This is an easy way for us to stay connected each week. Are you interested? No, I understand. We can always sign you up in the future if you change your mind. Just as a reminder, will continue to call you every other week to check in on your health. Our calls should take 10-15 minutes or less. Remember, if you have concerns in between our calls, please call your PCP's office right away. Thank you. Enter next patient outreach date for two weeks on the same day of the week as today in the Track PtOutreach and End outreach. documented in this encounterC[facility]01-17-2023 Miscellaneous Notes* Telephone Encounter - Rabia Goldberg Pss - 10/28/2022 4:17 PM EST Patient has been identified by name and date of : Yes Requested Prescriptions Pending Prescriptions Disp Refills lansoprazole (PREVACID) 30 mg capsule 180 capsule 3 Sig: Take 1 capsule by mouth twice daily. 1/2 hour before meals. RX INSTRUCTIONS: Patient aware RX will be sent to pharmacy. No need to notify patient. Rabia Goldberg Pss documented in this encounterC[facility]01-11-2023 Miscellaneous Notes* Telephone Encounter - Sobeida Matos LPN - 10/22/2022 12:00 PM EST Electronic PA completed for lansoprazole (PREVACID) 30 mg capsule qty of 180. This was approved from 10/12/22 to 10/11/2023 documented in this encounterCleveland Clinic [facility]01-06-2023 Miscellaneous Notes* Telephone Encounter - Luci Benz Ma - 10/17/2022 3:13 PM EST [facility] was notified approved Luci Benz Ma * Telephone Encounter - Luci Benz Ma - 10/17/2022 1:27 PM EST Electronic PA generated Luci Benz Ma * Telephone Encounter - Joslyn Turk RN - 10/17/2022 12:23 PM EST Please send for prior authorization. Joslyn Turk RN * Telephone Encounter - Elizabeth Goldberg LPN - 10/15/2022 9:45 AM EST [facility] called and reports pt's insurance will only cover Lansoprazole 30 mg 1 per day. Please advise pharmacy on either changing medication or doing a PA. PA information if needed: PRIOR AUTHORIZATION Medication for Prior Authorization: Lansoprazole 30 mg Insurance Company: Medicare Part D Insurance Company phone number: [phone] Patient insurance ID number: [id number] [facility] # [id number] N # [id number] RX group: [id number] Elizabeth Goldberg LPN documented in this encounterC[facility]01-05-2023 History of Present illness Narrative* Katja Lo RN - 10/16/2022 11:33 AM EST [facility] TELEPHONIC OUTREACH Provider Action/FYI: Contact made with patient: No - Left message Jose Alberto my name is Katja Lo RN your Finishing Machine Operator [employer] [facility] I am calling today for your bi-weekly check in. I am sorry I missed your call. I will reach out to you again tomorrow. (if the third call I will reach out to you again next week) Enter next patient outreach date for the following business day using the Track Pt Outreach. End outreach. * Katja Lo RN - 10/15/2022 1:30 PM EST [facility] TELEPHONIC OUTREACH Provider Action/FYI: Contact made with patient: No - Left message Jose Alberto my name is Katja Lo RN your Finishing Machine [employer] [facility] I am calling today for your bi-weekly check in. I am sorry I missed your call. I will reach out to you again tomorrow. (if the third call I will reach out to you again next week) Enter next patient outreach date for the following business day using the Track Pt Outreach. End outreach. documented in this encounterCleveland Clinic [facility]12-28-2022 Miscellaneous Notes* Telephone Encounter - Milana Vegas APRN.CNP - 10/08/2022 6:53 PM EST The following approved medication requests have been transmitted electronically. Requested Prescriptions Signed Prescriptions Disp Refills rosuvastatin (CRESTOR) 10 mg tablet 30 tablet 2 Sig: Take 1 tablet by mouth once daily. Authorizing Provider: MILANA VEGAS APRN.CNP * Telephone Encounter - Ely Alarcon LPN - 10/08/2022 12:43 PM EST Patient returned call and went over results, notes from Dr Harvey with more discussion. Patient said she is will to try 30 day rx, she [facility]. Pending rx needs number of refills completed. * Telephone Encounter - Tim Yip LPN - 10/08/2022 10:14 AM EST Left message to return call to office. Tim Yip LPN * Telephone Encounter - Mary Mendieta LPN - 10/07/2022 9:58 AM EST Message left to return call. * Telephone Encounter - Atul Harvey DO - 10/07/2022 7:40 AM EST Please inform patient that her RUQ US showed fatty liver changes. Would recommend low cholesterol diet and consideration of starting on low dose Crestor 10 mg (cholesterol medication). Atul Harvey DO documented in this encounterCleveland Clinic [facility]12-28-2022 Instructions* Patient Instructions* Christel Núñez PA-C - 10/08/2022 10:41 AM EST The following instructions are important for you related to your office visit today with the [facility] General Surgeons. INSTRUCTIONS FOLLOWING A POLYP FOUND AT COLONOSCOPY You were found to have adenomatous colon polyps. I recommend you undergo repeat endoscopy in 3 years. If you note bleeding, change in bowel habits, or other suspicious colon related symptoms before that time, those symptoms should be evaluated as necessary. If you have any difficulties or concerns, you should contact our office immediately. If you note any additional difficulties, questions, or concerns, you should contact our office immediately @ [phone] and ask to be transferred to the General Surgery department. documented in this encounterCleveland Clinic [facility]12-28-2022 History of Present illness Narrative* Christel Núñez PA-C - 10/08/2022 10:37 AM EST FOLLOW UP VISIT - ENDOSCOPY NAME: Mary Cooper [facility] NO.: [id number] DATE OF SERVICE: 10/08/2022 : 1940 REFERRING PHYSICIAN: DO Mary Woodruff is a patient I am following for surveillance colonoscopy due to personal history of colon polyps. Dr. Daly performed lower endoscopy on 09/30/22. Findings per operative report showed: Impression: - Seven small polyps in the transverse colon, in the ascending colon and in the cecum, removed with a cold biopsy forceps. Resected and retrieved. - Two medium polyps in the sigmoid colon and at the hepatic flexure, removed with a cold snare. Resected and retrieved. - The entire examined colon is normal on direct and retroflexion views. Pathology demonstrated: FINAL DIAGNOSIS A. Colon, right polyps, biopsy: - Multiple fragments of tubular adenoma. B. Hepatic flexure polyp, biopsy: - Tubular adenoma. C. Transverse colon polyp, biopsy: - Hyperplastic polyp. D. Sigmoid colon polyp, biopsy: - Tubular adenoma. The patient notes no complaints since the procedure. VITALS: Blood pressure 120/68, pulse 71, temperature 36.4 C (97.6 F), height 160 cm (5' 3), ccmibg45.1 kg (163 lb 6.4 oz), SpO2 97 %. General: patient is alert, cooperative, pleasant and in no acute distress On examination, the abdomen is benign. Assessment IMPRESSION: s/p colonoscopy with polypectomy-multiple small adenomatous polyps PLAN: The operative findings and pathology report were reviewed with the patient, and the patient has hadthe opportunity to ask questions and have questions answered. If the patient notes any problems or changes in bowel function, the patient should contact me immediately. Otherwise I recommend follow up endoscopy in 3 years. updated and recall letter generated. Patient verbalized understanding of all above and agreed with the plan Diagnoses: (Z86.010) History of colonic polyps (primary encounter diagnosis) (D36.9) Tubular adenoma I spent a total of 21 minutes on the date of the service which included preparing to see the patient, [id number] patient care, completing clinical documentation, obtaining and/or reviewing separately obtained history, counseling and educating the patient/family/caregiver, independently interpretin g results (not separately reported), and communicating results to the patient/family/caregiver. Christel Núñez PA-C documented in this encounterCleveland Clinic [facility]ucl[facility]12-21-2022 History of Present illness Narrative* Velma Robin RDMS - 10/01/2022 10:00 AM EST Radiology Service Progress Note PATIENT NAME: Mary Crane DATE OF SERVICE: October 01, 2022 TIME: 10:38 AM PATIENT IDENTITY VERIFICATION COMPLETED USING TWO (2) IDENTIFIERS: Name and Date of confirmedby patient verbally. FALL SCREENING: Has the patient had 2 falls in the last year or 1 fall with injury or currently using an Ambulatory Assistive Device (Walker, Cane, Wheelchair, Crutches, etc.)? No PATIENT GENDER DATA: Female. status: : No status: NO. PATIENT RELEVANT IMPLANT DATA REVIEWED: Not Applicable RADIOLOGY DEPARTMENT: Ultrasound PERIPHERAL IV DATA: Not applicable SIGNED BY: Velma Robin RDMS RVT October 01, 2022 10:38 AM documented in this encounterC[facility] Nurse Note* Monika Xiong RN - 09/30/2022 10:08 AM EST Arrived in phase II via cart. Left lateral position. Sedated, but responds to verbal stimuli. Colornormal; skin warm and dry. Respirations wnl and unlabored. Abdomen soft and with + bowel sounds in quads X 4. Patient resting comfortably. Family at bedside. Dr. Daly at bedside to review procedure and recommendations. Monika Xiong RN documented in this encounterC[facility]12-20-2022 History and physical note * Preet Daly MD - 09/30/2022 9:00 AM EST UPDATED PROCEDURAL SEDATION HISTORY AND PHYSICAL EXAMINATION SERVICE DATE: 09/30/2022 SERVICE TIME: 9:30 AM PHYSICAL EXAM MUST BE COMPLETED ON ADMISSION PROCEDURE: Procedure Indications: The History and Physical (completed in the past 30 days) has been reviewed and the patient has beenexamined. The contents accurately reflect the patient's condition with the following additions or revisions since the H&P was completed. ASA Class: ASA Class:: Patient with severe systemic disease Examination indicates no changes. AIRWAY: Airway Visualization of Uvula: Yes Mouth opening greater than 2 fingerbreadths: Yes Neck Full Range of Motion: Yes LUNGS: Lungs clear to auscultation CARDIAC: Regular rhythm,Regular rate Provisional Diagnosis/Treatment Plan: personal history of polyps - colonoscopy SEDATION GOAL: Moderate This H&P can be found in the attached. SIGNATURE: Preet Daly MD PATIENT NAME: Mary Crane DATE: September 30, 2022 TIME: 9:30 AM Source Note - Preet Daly MD - 09/30/2022 9:00 AM EST Images from the original note were not included. HISTORY AND PHYSICAL Mary Crane 1940 REFERRING PHYSICIAN: Self CHIEF COMPLAINT: Consult HPI: The patient is a 81 year old female referred for endoscopy. Mary notes a history of colon polyps. Patient denies any change in bowel habits, weight changes, blood in stools, black tarry stools or abdominal pain. Denies family history of colon issues. The patient notes no upper GI complaints. Mary has undergone prior endoscopy. Most recent colonoscopy 07/28/[address] Sullivan with removal ofadenomatous polyps, 5 year follow-up recommended. Patient notes she actually scheduled for colonoscopy already via [facility] but made appt to be seen prior due to her multiple medical comorbiditiesand medication profile. Patient's past medical history is significant for chronic kidney disease, hemorrhoids, hypertension, rheumatoid arthritis, pulmonary hypertension and heart failure. Patient follows with Dr. Harvey in primary care and Dr. Barrios in cardiology. Recent office notes are reviewed. Patient denies chest pain, shortness of breath or recent hospitalizations. Denies problems with sedation in the past. PAST MEDICAL HISTORY PAST MEDICAL HISTORY Diagnosis Date Advance care planning 04/01/2022 Daughter Noemy Arrhythmia Benign neoplasm of colon Chronic kidney disease 02/09/2015 Diverticulosis of colon (without mention of hemorrhage) IFG (impaired fasting glucose) 03/2022 Incisional hernia 07/06/2015 Internal hemorrhoids without mention of complication Rheumatoid arthritis(714.0) Rheumatoid arthritis(714.0) Sicca syndrome (HCC) Unspecified essential hypertension PAST SURGICAL HISTORY PAST SURGICAL HISTORY Procedure Laterality Date CATARACT EXTRACTION HX 2004 COLONOSCOPY FLX DX W/COLLJ SPEC WHEN PFRMD 09/30/05 Colonoscopy COLONOSCOPY FLX DX W/COLLJ SPEC WHEN PFRMD 07/28/16 Colonoscopy ESOPHAGOGASTRODUODENOSCOPY TRANSORAL DIAGNOSTIC 12/21/14 EGD LAPAROSCOPY SURG CHOLECYSTECTOMY 02/20/15 NEUROPLASTY &/TRANSPOS MEDIAN NRV CARPAL TUNNE 02/12/2006 Carpal tunnel decomp Left NEUROPLASTY &/TRANSPOS MEDIAN NRV CARPAL TUNNE 02/27/2006 Carpal tunnel decomp Right PAST SURGICAL HISTORY OF 2001 hemorrhoidectomy , bladder, and umbilical hernia repair PAST SURGICAL HISTORY OF 08/2006 bladder suspension REPAIR FIRST ABDOMINAL WALL HERNIA 07/06/2015 with mesh VAGINAL HYSTERECTOMY UTERUS 250 GM/< 1984 Hysterectomy, vaginal and bladder tacked up CURRENT MEDICATIONS Current Outpatient Medications Medication Sig atenolol (TENORMIN) 25 mg tablet Take 1 tablet by mouth twice daily. furosemide (LASIX) 40 mg tablet Take 1 tablet by mouth once daily. lansoprazole (PREVACID) 30 mg capsule TAKE 1 CAPSULE BY MOUTH TWICE DAILY. 1/2 HOUR BEFORE MEALS. losartan (COZAAR) 100 mg tablet Take 1 tablet by mouth once daily. cyanocobalamin (VITAMIN B-12) 1,000 mcg tab Take 1,000 mcg by mouth once daily. amLODIPine (NORVASC) 5 mg tablet TAKE 1 TABLET BY MOUTH EVERY DAY Cholecalciferol, Vitamin D3, 50 mcg (2,000 unit) cap Take 1 capsule by mouth once daily. allopurinol (ZYLOPRIM) 100 mg tablet Take 1 tablet by mouth once daily. cloNIDine HCl (CATAPRES) 0.2 mg tablet Take 1 tablet by mouth twice daily. potassium chloride ER (K-DUR, KLOR-CON) 10 mEq tablet Take 1 tablet by mouth twice daily. triamcinolone acetonide (KENALOG) 0.1 % cream Apply 1 application to affected area twice daily. On rash, Apply sparingly to area for rash/itching. (Patient taking differently: Apply 1 application to affected area twice daily. On rash, Apply sparingly to area for rash/itching. Uses as needed) folic acid 1 mg tablet Take 2 tablets by mouth once daily. vit A/vit C/vit E/zinc/copper (OCUVITE PRESERVISION ORAL) Take by mouth twice daily. nystatin (NYSTOP) powder Apply 1 application to affected area four times daily as needed. Yeast infection/rash in groin and under breasts apremilast (OTEZLA) 30 mg tablet Take 30 mg by mouth once daily. hydrocortisone probutate 0.1 % crea Apply to affected area once daily as needed. loratadine (CLARITIN) 10 mg tablet Take 10 mg by mouth once daily. Takes daily as needed acetaminophen (TYLENOL) 325 mg tablet Take 650 mg by mouth every 6 hours as needed. No current facility-administered medications for this visit. ALLERGIES: Floxin [Ofloxacin], Bumex [Bumetanide], Hydrochlorothiazide, Keflex [Cephalexin], Naproxen, Norvasc [Amlodipine Besylate], Penicillins, Proctosol [Hydrocortisone Acetate], Sulfa (Sulfonamide Antibiotics), Colchicine, and Minoxidil PERSONAL HISTORY: SOCIAL HISTORY Social History Tobacco Use Smoking status: Never Smokeless tobacco: Never Vaping Use Vaping Use: Never used Substance Use Topics Alcohol use: No Drug use: No FAMILY HISTORY: FAMILY HISTORY FAMILY HISTORY Problem Relation Age of Onset Diabetes Mother Hypertension Mother Heart Father Diabetes Sister No Known Problems Sister No Known Problems Brother Heart Brother No Known Problems Brother REVIEW OF SYMPTOMS: The review of systems data was entered by the nurse and reviewed by nj Nursing Notes: Danii Us JANY 08/06/2022 1:40 PM Signed REVIEW OF SYSTEMS: General: The patient denies fatigue, denies weight loss, denies weight gain, denies feeling hot, and denies feelings of cold. Eyes: The patient denies glaucoma, denies eye injury/surgery, does not wear glasses or contacts. Ear/Nose/Throat: The patient NOTES allergies, denies hayfever, denies ear infections, and denies bloody noses. Cardiovascular: The patient denies chest pain, denies heart disease, NOTES high blood pressure,denies cardiac stent, denies prior heart attack, NOTES irregular heart beat, denies high cholesterol, denies poor circulation, denies heart failure, other cardiac issues, denies claudication, denies cold feet, denies peripheral arterial stent. Respiratory: The patient denies tuberculosis, denies pneumonia, denies frequent cough, denies pulmonary embolism, denies shortness of breath, and denies coughing up blood. Gastrointestinal: The patient denies difficulty swallowing, NOTES acid reflux, denies ulcers, denies vomiting, denies jaundice/hepatitis, denies gallbladder problems, denies black or tarry stools, NOTES hemorrhoids, denies bleeding from rectum, denies diverticulitis, denies constipation, denies diarrhea, denies loss of stool control, and denies hernias. Kidney/Bladder: The patient denies kidney stones, denies urine infections, and denies bloody urine. Skin: The patient denies a history of skin cancer, denies bleeding/changing moles, and denies a history of skin rash. Neurologic: The patient denies a history of epilepsy/convulsions, denies headaches, denies head/spinal injuries, and denies stroke/TIA. Psychiatric: The patient denies psychiatric medications, denies depression, and denies voices, denies substance abuse. Endocrine: The patient denies thyroid disorders, denies diabetes, and denies hormonal problems. Hematologic: The patient denies a history of bruising, denies bleeding, and denies anemia, denies blood clots. Infections: The patient denies a history of measles and mumps, denies rheumatic fever, and denies sexually transmitted diseases. Musculoskeletal: The patient denies back pain/injury, denies back problems, denies sciatica, deniesknee/foot trouble, denies arthritis, or NOTES gout. When was patient's last Mammogram screening? July 2022 Last Colonoscopy: 2015 Danii Us LPN I have confirmed and edited as necessary, the PFSH and ROS obtained by others. Christel Núñez PA-C PHYSICAL EXAMINATION: General: The patient is 81 year old female, well nourished, well hydrated in no acute distress. Thepatient is oriented to time, place, and person. VITALS: Blood pressure 128/82, pulse 68, temperature 36.2 C (97.2 F), temperature source Temporal, resp. rate 14, height 160 cm (5' 3), weight 73.9 kg (163 lb), SpO2 95 %. Body mass index is 28.87 kg/m . HEENT: Normal cephalic, ataumatic, pupils are equally round, sclera are anicteric, mucous membranesare moist, oropharynx is clear. Neck has no masses, asymmetry or lymphadenopathy. Respiratory: Clear to auscultation and percussion. Normal respiratory excursion and pattern. Cardiac: Examination is regular rate and rhythm. Normal S1/S2 Abdominal exam: Soft, nontender, with no palpable masses. No hepatosplenomegaly. No palpable hernias. Extremities: no clubbing, cyanosis or edema. No adenopathy. LABORATORY VALUES: As Noted RADIOLOGIC STUDIES: As Noted Assessment IMPRESSION: encounter for surveillance colonoscopy due to personal history of colon polyps PLAN: I have reviewed my findings with the surgeon. Will plan for lower endoscopy. We discussed therisks and benefits of the planned endoscopy. I have informed the patient that complications can occur including failure to complete the endoscopy and perforation. The patient had the opportunity to ask questions concerning the planned endoscopy. My staff has also explained the procedure to the patient in understandable terms and has given the patient printed material concerning the procedure. Thepatient freely consents to surgery. The patient was offered a [facility]. I have counseled the patient regarding the risk of exposure to and/or potential harm posed by the COVID-19 virus with having a surgery/procedure at this time versus the risk of delaying the surgery/procedure. It is not possible to know either the risk of delaying the surgery or procedure or chance of getting an infection with perfect accuracy, but a joint decision was made between the patient and myself to proceed at this time with endoscopy. I plan to use Miralax/Dulcolax bowel preparation. Reviewed importance of excellent hydration I have explained to the patient the difference between IV conscious sedation and MAC anesthesia - and I have offered either, according to the patient's wishes. I have explained that with IV conscioussedation there is no anesthesia provider available and therefore there is a limitation of the amount of IV medications that can be given and that the patient may wake up in the middle of the procedure and/or experience pain/discomfort during the procedure. Further discussion was done and the patient was given the opportunity to ask questions and all questions were answered. The patient chooses IVconscious sedation, wishes to proceed with her scheduled date of 09/30/[address] Daly in [facility] Diagnoses: (Z12.11) Encounter for screening for malignant neoplasm of colon (primary encounter diagnosis) (Z86.010) History of colonic polyps Consultation requested by Dr. Harvey for an opinion regarding colonoscopy. My final recommendations will be communicated back to the requesting physician by way of shared Medical record or letter to requesting physician via US mail. Christel Núñez PA-C * Preet Daly MD - 09/30/2022 9:00 AM EST Images from the original note were not included. HISTORY AND PHYSICAL Mary Crane 1940 REFERRING PHYSICIAN: Self CHIEF COMPLAINT: Consult HPI: The patient is a 81 year old female referred for endoscopy. Mary notes a history of colon polyps. Patient denies any change in bowel habits, weight changes, blood in stools, black tarry stools or abdominal pain. Denies family history of colon issues. The patient notes no upper GI complaints. Mary has undergone prior endoscopy. Most recent colonoscopy 07/28/[address] Sullivan with removal ofadenomatous polyps, 5 year follow-up recommended. Patient notes she actually scheduled for colonoscopy already via [facility] but made appt to be seen prior due to her multiple medical comorbiditiesand medication profile. Patient's past medical history is significant for chronic kidney disease, hemorrhoids, hypertension, rheumatoid arthritis, pulmonary hypertension and heart failure. Patient follows with Dr. Harvey in primary care and Dr. Barrios in cardiology. Recent office notes are reviewed. Patient denies chest pain, shortness of breath or recent hospitalizations. Denies problems with sedation in the past. PAST MEDICAL HISTORY PAST MEDICAL HISTORY Diagnosis Date Advance care planning 04/01/2022 Daughter Noemy Arrhythmia Benign neoplasm of colon Chronic kidney disease 02/09/2015 Diverticulosis of colon (without mention of hemorrhage) IFG (impaired fasting glucose) 03/2022 Incisional hernia 07/06/2015 Internal hemorrhoids without mention of complication Rheumatoid arthritis(714.0) Rheumatoid arthritis(714.0) Sicca syndrome (HCC) Unspecified essential hypertension PAST SURGICAL HISTORY PAST SURGICAL HISTORY Procedure Laterality Date CATARACT EXTRACTION HX 2004 COLONOSCOPY FLX DX W/COLLJ SPEC WHEN PFRMD 09/30/05 Colonoscopy COLONOSCOPY FLX DX W/COLLJ SPEC WHEN PFRMD 07/28/16 Colonoscopy ESOPHAGOGASTRODUODENOSCOPY TRANSORAL DIAGNOSTIC 12/21/14 EGD LAPAROSCOPY SURG CHOLECYSTECTOMY 02/20/15 NEUROPLASTY &/TRANSPOS MEDIAN NRV CARPAL TUNNE 02/12/2006 Carpal tunnel decomp Left NEUROPLASTY &/TRANSPOS MEDIAN NRV CARPAL TUNNE 02/27/2006 Carpal tunnel decomp Right PAST SURGICAL HISTORY OF 2001 hemorrhoidectomy , bladder, and umbilical hernia repair PAST SURGICAL HISTORY OF 08/2006 bladder suspension REPAIR FIRST ABDOMINAL WALL HERNIA 07/06/2015 with mesh VAGINAL HYSTERECTOMY UTERUS 250 GM/< 1984 Hysterectomy, vaginal and bladder tacked up CURRENT MEDICATIONS Current Outpatient Medications Medication Sig atenolol (TENORMIN) 25 mg tablet Take 1 tablet by mouth twice daily. furosemide (LASIX) 40 mg tablet Take 1 tablet by mouth once daily. lansoprazole (PREVACID) 30 mg capsule TAKE 1 CAPSULE BY MOUTH TWICE DAILY. 1/2 HOUR BEFORE MEALS. losartan (COZAAR) 100 mg tablet Take 1 tablet by mouth once daily. cyanocobalamin (VITAMIN B-12) 1,000 mcg tab Take 1,000 mcg by mouth once daily. amLODIPine (NORVASC) 5 mg tablet TAKE 1 TABLET BY MOUTH EVERY DAY Cholecalciferol, Vitamin D3, 50 mcg (2,000 unit) cap Take 1 capsule by mouth once daily. allopurinol (ZYLOPRIM) 100 mg tablet Take 1 tablet by mouth once daily. cloNIDine HCl (CATAPRES) 0.2 mg tablet Take 1 tablet by mouth twice daily. potassium chloride ER (K-DUR, KLOR-CON) 10 mEq tablet Take 1 tablet by mouth twice daily. triamcinolone acetonide (KENALOG) 0.1 % cream Apply 1 application to affected area twice daily. On rash, Apply sparingly to area for rash/itching. (Patient taking differently: Apply 1 application to affected area twice daily. On rash, Apply sparingly to area for rash/itching. Uses as needed) folic acid 1 mg tablet Take 2 tablets by mouth once daily. vit A/vit C/vit E/zinc/copper (OCUVITE PRESERVISION ORAL) Take by mouth twice daily. nystatin (NYSTOP) powder Apply 1 application to affected area four times daily as needed. Yeast infection/rash in groin and under breasts apremilast (OTEZLA) 30 mg tablet Take 30 mg by mouth once daily. hydrocortisone probutate 0.1 % crea Apply to affected area once daily as needed. loratadine (CLARITIN) 10 mg tablet Take 10 mg by mouth once daily. Takes daily as needed acetaminophen (TYLENOL) 325 mg tablet Take 650 mg by mouth every 6 hours as needed. No current facility-administered medications for this visit. ALLERGIES: Floxin [Ofloxacin], Bumex [Bumetanide], Hydrochlorothiazide, Keflex [Cephalexin], Naproxen, Norvasc [Amlodipine Besylate], Penicillins, Proctosol [Hydrocortisone Acetate], Sulfa (Sulfonamide Antibiotics), Colchicine, and Minoxidil PERSONAL HISTORY: SOCIAL HISTORY Social History Tobacco Use Smoking status: Never Smokeless tobacco: Never Vaping Use Vaping Use: Never used Substance Use Topics Alcohol use: No Drug use: No FAMILY HISTORY: FAMILY HISTORY FAMILY HISTORY Problem Relation Age of Onset Diabetes Mother Hypertension Mother Heart Father Diabetes Sister No Known Problems Sister No Known Problems Brother Heart Brother No Known Problems Brother REVIEW OF SYMPTOMS: The review of systems data was entered by the nurse and reviewed by nj Nursing Notes: Danii Us JANY 08/06/2022 1:40 PM Signed REVIEW OF SYSTEMS: General: The patient denies fatigue, denies weight loss, denies weight gain, denies feeling hot, and denies feelings of cold. Eyes: The patient denies glaucoma, denies eye injury/surgery, does not wear glasses or contacts. Ear/Nose/Throat: The patient NOTES allergies, denies hayfever, denies ear infections, and denies bloody noses. Cardiovascular: The patient denies chest pain, denies heart disease, NOTES high blood pressure,denies cardiac stent, denies prior heart attack, NOTES irregular heart beat, denies high cholesterol, denies poor circulation, denies heart failure, other cardiac issues, denies claudication, denies cold feet, denies peripheral arterial stent. Respiratory: The patient denies tuberculosis, denies pneumonia, denies frequent cough, denies pulmonary embolism, denies shortness of breath, and denies coughing up blood. Gastrointestinal: The patient denies difficulty swallowing, NOTES acid reflux, denies ulcers, denies vomiting, denies jaundice/hepatitis, denies gallbladder problems, denies black or tarry stools, NOTES hemorrhoids, denies bleeding from rectum, denies diverticulitis, denies constipation, denies diarrhea, denies loss of stool control, and denies hernias. Kidney/Bladder: The patient denies kidney stones, denies urine infections, and denies bloody urine. Skin: The patient denies a history of skin cancer, denies bleeding/changing moles, and denies a history of skin rash. Neurologic: The patient denies a history of epilepsy/convulsions, denies headaches, denies head/spinal injuries, and denies stroke/TIA. Psychiatric: The patient denies psychiatric medications, denies depression, and denies voices, denies substance abuse. Endocrine: The patient denies thyroid disorders, denies diabetes, and denies hormonal problems. Hematologic: The patient denies a history of bruising, denies bleeding, and denies anemia, denies blood clots. Infections: The patient denies a history of measles and mumps, denies rheumatic fever, and denies sexually transmitted diseases. Musculoskeletal: The patient denies back pain/injury, denies back problems, denies sciatica, deniesknee/foot trouble, denies arthritis, or NOTES gout. When was patient's last Mammogram screening? July 2022 Last Colonoscopy: 2015 Danii Us LPN I have confirmed and edited as necessary, the PFSH and ROS obtained by others. Christel Núñez PA-C PHYSICAL EXAMINATION: General: The patient is 81 year old female, well nourished, well hydrated in no acute distress. Thepatient is oriented to time, place, and person. VITALS: Blood pressure 128/82, pulse 68, temperature 36.2 C (97.2 F), temperature source Temporal, resp. rate 14, height 160 cm (5' 3), weight 73.9 kg (163 lb), SpO2 95 %. Body mass index is 28.87 kg/m . HEENT: Normal cephalic, ataumatic, pupils are equally round, sclera are anicteric, mucous membranesare moist, oropharynx is clear. Neck has no masses, asymmetry or lymphadenopathy. Respiratory: Clear to auscultation and percussion. Normal respiratory excursion and pattern. Cardiac: Examination is regular rate and rhythm. Normal S1/S2 Abdominal exam: Soft, nontender, with no palpable masses. No hepatosplenomegaly. No palpable hernias. Extremities: no clubbing, cyanosis or edema. No adenopathy. LABORATORY VALUES: As Noted RADIOLOGIC STUDIES: As Noted Assessment IMPRESSION: encounter for surveillance colonoscopy due to personal history of colon polyps PLAN: I have reviewed my findings with the surgeon. Will plan for lower endoscopy. We discussed therisks and benefits of the planned endoscopy. I have informed the patient that complications can occur including failure to complete the endoscopy and perforation. The patient had the opportunity to ask questions concerning the planned endoscopy. My staff has also explained the procedure to the patient in understandable terms and has given the patient printed material concerning the procedure. Thepatient freely consents to surgery. The patient was offered a surgery/procedure at [facility] facility. I have counseled the patient regarding the risk of exposure to and/or potential harm posed by the COVID-19 virus with having a surgery/procedure at this time versus the risk of delaying the surgery/procedure. It is not possible to know either the risk of delaying the surgery or procedure or chance of getting an infection with perfect accuracy, but a joint decision was made between the patient and myself to proceed at this time with endoscopy. I plan to use Miralax/Dulcolax bowel preparation. Reviewed importance of excellent hydration I have explained to the patient the difference between IV conscious sedation and MAC anesthesia - and I have offered either, according to the patient's wishes. I have explained that with IV conscioussedation there is no anesthesia provider available and therefore there is a limitation of the amount of IV medications that can be given and that the patient may wake up in the middle of the procedure and/or experience pain/discomfort during the procedure. Further discussion was done and the patient was given the opportunity to ask questions and all questions were answered. The patient chooses IVconscious sedation, wishes to proceed with her scheduled date of 09/30/[address] Daly in [facility] Diagnoses: (Z12.11) Encounter for screening for malignant neoplasm of colon (primary encounter diagnosis) (Z86.010) History of colonic polyps Consultation requested by Dr. Harvey for an opinion regarding colonoscopy. My final recommendations will be communicated back to the requesting physician by way of shared Medical record or letter to requesting physician via US mail. Christel Núñez PA-C documented in this encounterC[facility]12-[facility] Miscellaneous Notes* Telephone Encounter - AROLDO Aragon - 09/25/2022 8:42 AM EST TC to patient who verbalizes understanding of providers message and is agreeable to ultrasound. Pt is requesting that to schedule, her daughter Noemy be contacted as she takes pt to all of her appointments. Her phone number is [phone]. Please call Noemy and assist in scheduling US for patient. Thank you. AROLDO Aragon * Telephone Encounter - Atul Harvey DO - 09/24/2022 9:44 PM EST Please inform patient that overall her labs are stable except for elevated alkaline phosphatase. I would like her to have a RUQ ultrasound to further assess this elevation Atul Harvey DO documented in this [facility] History of Present illness Narrative* Katja Lo RN - 09/23/2022 1:00 PM EST [facility] TELEPHONIC OUTREACH Provider Action/FYI: Contact made with patient: No - Left message Giuseppeai my name is Katja Lo RN your Finishing Machine Operator [employer] from the [facility] I am calling today for your bi-weekly check in. I am sorry I missed your call. I will reach out to you again tomorrow. (if the third call I will reach out to you again next week) Enter next patient outreach date for the following business day using the Track Pt Outreach. End outreach. * Katja Lo RN - 09/22/2022 1:18 PM EST [facility] TELEPHONIC OUTREACH Provider Action/FYI: Contact made with patient: No - Left message Jose Alberto my name is Katja Lo RN your Finishing Machine Operator [employer] from the [facility] I am calling today for your bi-weekly check in. I am sorry I missed your call. I will reach out to you again tomorrow. (if the third call I will reach out to you again next week) Enter next patient outreach date for the following business day using the Track Pt Outreach. End outreach. documented [facility] this [facility] History of Present illness Narrative* Atul Harvey DO - 09/16/2022 9:20 AM EST CC: Mary Crane is a 82 year old female who presents to the office for follow up HPI: Elevated Alkaline phosphatase, isoenzyme is showing bone source of this. Denies any worsening bone or joint pains or other symptoms. Appetite is normal. No new bruising or bleeding. No hot flashes orsweats. Her LDL and serum protein electropheresis labs are both normal CKD stage 2-3, mild, has increased her water intake as recommended, avoids NSAIDs as d/w her previous Lactose intolerance, occasional diarrhea/abd cramping IFG, diet controlled Interested in colonoscopy, is overdue for this, has been >5 years, no new symptoms. Is scheduledfor Sep 30 RA, seen by Surgeon Assistant for care, taking Otezla as prescribed Rash, arms and back, itching and red, was using dryer sheets and has stopped doing this HTN, well controlled, taking medications as prescribed. 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 Only occasional palpitations and heart racing symptoms as well as dyspnea if she is exerting up an inclinesuch as walking up her driveway after getting her mail, no chest pressure or Pain . Last ECHO was 05/2020 PAST MEDICAL HISTORY Diagnosis Date Advance care planning 04/01/2022 Daughter Noemy Arrhythmia Benign neoplasm of colon Chronic kidney disease 02/09/2015 Diverticulosis of colon (without mention of hemorrhage) IFG (impaired fasting glucose) 03/2022 Incisional hernia 07/06/2015 Internal hemorrhoids without mention of complication Rheumatoid arthritis(714.0) Rheumatoid arthritis(714.0) Sicca syndrome (HCC) Unspecified essential hypertension PAST SURGICAL HISTORY Procedure Laterality Date CATARACT EXTRACTION HX 2005 COLONOSCOPY FLX DX W/COLLJ SPEC WHEN PFRMD 09/30/05 Colonoscopy COLONOSCOPY FLX DX W/COLLJ SPEC WHEN PFRMD 07/28/16 Colonoscopy ESOPHAGOGASTRODUODENOSCOPY TRANSORAL DIAGNOSTIC 12/21/14 EGD LAPAROSCOPY SURG CHOLECYSTECTOMY 02/20/15 NEUROPLASTY &/TRANSPOS MEDIAN NRV CARPAL TUNNE 02/12/2006 Carpal tunnel decomp Left NEUROPLASTY &/TRANSPOS MEDIAN NRV CARPAL TUNNE 02/27/2006 Carpal tunnel decomp Right PAST SURGICAL HISTORY OF 2001 hemorrhoidectomy , bladder, and umbilical hernia repair PAST SURGICAL HISTORY OF 08/2006 bladder suspension REPAIR FIRST ABDOMINAL WALL HERNIA 07/06/2015 with mesh VAGINAL HYSTERECTOMY UTERUS 250 GM/< 1984 Hysterectomy, vaginal and bladder tacked up Current Outpatient Medications Medication Sig lansoprazole (PREVACID) 30 mg capsule TAKE 1 CAPSULE BY MOUTH TWICE DAILY. 1/2 HOUR BEFORE MEALS. atenolol (TENORMIN) 25 mg tablet Take 1 tablet by mouth twice daily. furosemide (LASIX) 40 mg tablet Take 1 tablet by mouth once daily. losartan (COZAAR) 100 mg tablet Take 1 tablet by mouth once daily. cyanocobalamin (VITAMIN B-12) 1,000 mcg tab Take 1,000 mcg by mouth once daily. amLODIPine (NORVASC) 5 mg tablet TAKE 1 TABLET BY MOUTH EVERY DAY Cholecalciferol, Vitamin D3, 50 mcg (2,000 unit) cap Take 1 capsule by mouth once daily. allopurinol (ZYLOPRIM) 100 mg tablet Take 1 tablet by mouth once daily. cloNIDine HCl (CATAPRES) 0.2 mg tablet Take 1 tablet by mouth twice daily. potassium chloride ER (K-DUR, KLOR-CON) 10 mEq tablet Take 1 tablet by mouth twice daily. triamcinolone acetonide (KENALOG) 0.1 % cream Apply 1 application to affected area twice daily. On rash, Apply sparingly to area for rash/itching. (Patient taking differently: Apply 1 application to affected area twice daily. On rash, Apply sparingly to area for rash/itching. Uses as needed) folic acid 1 mg tablet Take 2 tablets by mouth once daily. vit A/vit C/vit E/zinc/copper (OCUVITE PRESERVISION ORAL) Take by mouth twice daily. nystatin (NYSTOP) powder Apply 1 application to affected area four times daily as needed. Yeast infection/rash in groin and under breasts apremilast (OTEZLA) 30 mg tablet Take 30 mg by mouth once daily. hydrocortisone probutate 0.1 % crea Apply to affected area once daily as needed. loratadine (CLARITIN) 10 mg tablet Take 10 mg by mouth once daily. Takes daily as needed dicyclomine (BENTYL) 10 mg capsule Take 1 capsule by mouth before meals and at bedtime. For diarrhea or abdominal cramping acetaminophen (TYLENOL) 325 mg tablet Take 650 mg by mouth every 6 hours as needed. No current facility-administered medications for this visit. ALLERGIES Allergen Reactions Floxin [Ofloxacin] Anaphylaxis Bumex [Bumetanide] Intolerance Hydrochlorothiazide Rash, Intolerance leucocytoclastic vasculitis Keflex [Cephalexin] Rash Naproxen Rash, Hives Norvasc [Amlodipine* Intolerance Penicillins Intolerance Rash Proctosol [Hydrocor* Intolerance Sulfa (Sulfonamide * Rash, GI Upset Colchicine Hives Minoxidil Other: See Comments facial hair Social History Tobacco Use Smoking status: Never Smokeless tobacco: Never Vaping Use Vaping Use: Never used Substance Use Topics Alcohol use: No Drug use: No ROS: See HPI PE: BP 100/60 Pulse 56 Temp (Src) 97 (Left Tympanic) Resp 16 Wt 162 lb (73.5kg) Gen: A&OX3, NAD, non-toxic appearing, hard of hearing HEENT: PERRLA, EOMs intact b/l, nares without drainage, pharynx without erythema, exudate, lesions,or drainage. Uvula midline. MMM, wearing glasses Neck: No LAD, no thyromegaly, no meningismus. CV: RRR, no murmur Lungs: CTA b/l, no wheezing Skin: erythematous mild papular rash on left inner wrist and right flank/mid back without signs of blistering or infection Arthritis changes of peripheral joints including hands, wrists, feet, ankles, knees No peripheral edema, normal pulses ASSESSMENT/PLAN: 1. Abdominal cramping - ICD9: 789.00, ICD10: R10.9 (primary diagnosis) - chronic, avoid dairy, has upcoming colonoscopy - DICYCLOMINE 10 MG CAPSULE 2. 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 Hypertension, essential - ICD9: 401.9, ICD10: I10 - good control - Continue current medication(s) - Encouraged dietary sodium restriction/DASH diet - Recommended regular aerobic exercise. - Recommend home blood pressure monitoring, to bring results in on next visit - Goal of BP <130/80 4. Alkaline phosphatase elevation - ICD9: 790.5, ICD10: R74.8 - stable, normal LDH and serum protein electropheresis, continue to monitor 5. Vitamin D deficiency - ICD9: 268.9, ICD10: E55.9 Recheck labs in 3-4 months - VITAMIN D 25 HYDROXY 6. IFG (impaired fasting glucose) - ICD9: 790.21, ICD10: R73.01 Recheck labs in 3-4 months, stable - HGB A1C 7. Dyslipidemia - ICD9: 272.4, ICD10: E78.5 - good control - Continue current medication. - Encouraged following a low fat, low cholesterol diet. - Discussed the benefits of regular aerobic exercise and weight loss. - Check fasting lipid panel and ALT in 12 weeks. - LIPID PANEL BASIC 8. Stage 3b chronic kidney disease (HCC) - ICD9: 585.3, ICD10: N18.32 - eGFR: Stable - Counseled on avoiding regular use of NSAIDs, adequate hydration, potential risk of IV dye - COMP METABOLIC PANEL - CBC 9. Vitamin B12 deficiency - ICD9: 266.2, ICD10: E53.8 - continue supplement - VITAMIN B12 BLOOD 10. Rheumatoid arthritis involving multiple sites with positive rheumatoid factor (HCC) - ICD9: 714.0, ICD10: M05.79 F/u with Rheum - COMP METABOLIC PANEL - CBC Atul Harvey DO Return if no improvement. Follow up with Atul Harvey DO. To ER if develops chest pain, shortness of breath Discussed risks, benefits, alternatives, and potential side effects of medications. Patient/Guardian expressed understanding and agreed with the plan. See patient instructions. Atul Harvey DO [address] [place] [address] documented in this [facility]11-21-2022 Miscellaneous Notes* Telephone Encounter - Lori Josue LPN - 09/01/2022 3:45 PM EST Patient phones requesting refills as follows: Requested Prescriptions Pending Prescriptions Disp Refills lansoprazole (PREVACID) 30 mg capsule [Pharmacy Med Name: LANSOPRAZOLE DR 30 MG CAPSULE] 180 capsule 1 Sig: TAKE 1 CAPSULE BY MOUTH TWICE DAILY. 1/2 HOUR BEFORE MEALS. CECILIO-07/08/22 Labs-07/01/22 NOV-09/16/22 med filled 05/07/22 Please review and advise. Lori Josue LPN [facility] History of Present illness Narrative* Katja Lo RN - 08/27/2022 2:29 PM EST [facility] TELEPHONIC OUTREACH Provider Action/FYI: No CDM concerns at this time. Denies any new or worsening symptoms. No questions/concerns/needs at this time. Contact made with patient: Yes Patient identified by name and . Discussed care with patient It s nice talking to you again. As a reminder, this is our bi-weekly check-in where I will be asking you questions about your health. This will only take a few minutes of your time. Is this a good time? Yes Symptoms What Chronic Disease(s) does the patient have: CHF and CKD Do you check your blood pressures at home? No Do you have new or worse shortness of breath with activity? No Do you have new or worsening trouble breathing while lying flat? No Do you have new or worsening swelling of legs, feet or ankles? No Do you check your daily weight at home? Yes, Have you noticed a sudden gain in weight greater than three pounds in a day or three pounds in a week? No and Do you feel like you are dehydrated for any reason, including not being able to eat or drink normally, or having less urine/much darker urine than normal for you? No Do you check your daily weight at home? Yes, Have you noticed a sudden gain in weight greater than three pounds in a day or three pounds in a week? No Are you having any other symptoms that your PCP needs to know about? No Symptom Escalation The patient required an escalation for symptom(s)? No Medications Do you have any questions about taking your medication or which medications you should be on? No Do you need any medication refills at this time, including any of the medications you might take only when needed? No Social We would like to make sure you have what you need so that your basic needs are met- including your personal safety, food, housing and medications? Would you like to speak with a social work telesales team leader to help give you support for any of these needs? No It can be normal to feel anxious or down during a time like this. Would you like to talk to a mental health professional about how you have been feeling? No Closing Thank you for taking the time to talk with me today. We want to work with you to ensure that we arekeeping your medical condition(s) well-controlled and to keep you healthy and out of the doctor's office or hospital. It s also not too late for me to sign you up for automated weekly questionnaires through [employer]. This is an easy way for us to stay connected each week. Are you interested? No, I understand. We can always sign you up in the future if you change your mind. Just as a reminder, will continue to call you every other week to check in on your health. Our calls should take 10-15 minutes or less. Remember, if you have concerns in between our calls, please call your PCP's office right away. Thank you. Enter next patient outreach date for two weeks on the same day of the week as today in the Track PtOutreach and End outreach. [facility] this [facility] History of Present illness Narrative* Katja Lo RN - 08/22/2022 11:49 AM EST [facility] TELEPHONIC OUTREACH Provider Action/FYI: Contact made with patient: No - Left message Hello my name is Katja Lo RN your Finishing Machine Operator Automatic [facility] I am calling today for your bi-weekly check in. I am sorry I missed your call. I will reach out to you again tomorrow. (if the third call I will reach out to you again next week) Enter next patient outreach date for the following using the Track Pt Outreach. End outreach. documented in this [facility]10[facility] History of Present illness Narrative* Christel Núñez PA-C - 08/06/2022 1:44 PM EDT HISTORY AND PHYSICAL Mary Crane 1940 REFERRING PHYSICIAN: Self CHIEF COMPLAINT: Consult HPI: The patient is a 81 year old female referred for endoscopy. Mary notes a history of colon polyps. Patient denies any change in bowel habits, weight changes, blood in stools, black tarry stools or abdominal pain. Denies family history of colon issues. The patient notes no upper GI complaints. Mary has undergone prior endoscopy. Most recent colonoscopy 07/28/[address] Sullivan with removal ofadenomatous polyps, 5 year follow-up recommended. Patient notes she actually scheduled for colonoscopy already via [facility] but made appt to be seen prior due to her multiple medical comorbiditiesand medication profile. Patient's past medical history is significant for chronic kidney disease, hemorrhoids, hypertension, rheumatoid arthritis, pulmonary hypertension and heart failure. Patient follows with Dr. Harvey in primary care and Dr. Barrios in cardiology. Recent office notes are reviewed. Patient denies chest pain, shortness of breath or recent hospitalizations. Denies problems with sedation in the past. PAST MEDICAL HISTORY Diagnosis Date Advance care planning 04/01/2022 Daughter Noemy Arrhythmia Benign neoplasm of colon Chronic kidney disease 02/09/2015 Diverticulosis of colon (without mention of hemorrhage) IFG (impaired fasting glucose) 03/2022 Incisional hernia 07/06/2015 Internal hemorrhoids without mention of complication Rheumatoid arthritis(714.0) Rheumatoid arthritis(714.0) Sicca syndrome (HCC) Unspecified essential hypertension PAST SURGICAL HISTORY Procedure Laterality Date CATARACT EXTRACTION HX 2005 COLONOSCOPY FLX DX W/COLLJ SPEC WHEN PFRMD 09/30/05 Colonoscopy COLONOSCOPY FLX DX W/COLLJ SPEC WHEN PFRMD 07/28/16 Colonoscopy ESOPHAGOGASTRODUODENOSCOPY TRANSORAL DIAGNOSTIC 12/21/14 EGD LAPAROSCOPY SURG CHOLECYSTECTOMY 02/20/15 NEUROPLASTY &/TRANSPOS MEDIAN NRV CARPAL TUNNE 02/12/2006 Carpal tunnel decomp Left NEUROPLASTY &/TRANSPOS MEDIAN NRV CARPAL TUNNE 02/27/2006 Carpal tunnel decomp Right PAST SURGICAL HISTORY OF 2001 hemorrhoidectomy , bladder, and umbilical hernia repair PAST SURGICAL HISTORY OF 08/2006 bladder suspension REPAIR FIRST ABDOMINAL WALL HERNIA 07/06/2015 with mesh VAGINAL HYSTERECTOMY UTERUS 250 GM/< 1984 Hysterectomy, vaginal and bladder tacked up Current Outpatient Medications Medication Sig atenolol (TENORMIN) 25 mg tablet Take 1 tablet by mouth twice daily. furosemide (LASIX) 40 mg tablet Take 1 tablet by mouth once daily. lansoprazole (PREVACID) 30 mg capsule TAKE 1 CAPSULE BY MOUTH TWICE DAILY. 1/2 HOUR BEFORE MEALS. losartan (COZAAR) 100 mg tablet Take 1 tablet by mouth once daily. cyanocobalamin (VITAMIN B-12) 1,000 mcg tab Take 1,000 mcg by mouth once daily. amLODIPine (NORVASC) 5 mg tablet TAKE 1 TABLET BY MOUTH EVERY DAY Cholecalciferol, Vitamin D3, 50 mcg (2,000 unit) cap Take 1 capsule by mouth once daily. allopurinol (ZYLOPRIM) 100 mg tablet Take 1 tablet by mouth once daily. cloNIDine HCl (CATAPRES) 0.2 mg tablet Take 1 tablet by mouth twice daily. potassium chloride ER (K-DUR, KLOR-CON) 10 mEq tablet Take 1 tablet by mouth twice daily. triamcinolone acetonide (KENALOG) 0.1 % cream Apply 1 application to affected area twice daily. On rash, Apply sparingly to area for rash/itching. (Patient taking differently: Apply 1 application to affected area twice daily. On rash, Apply sparingly to area for rash/itching. Uses as needed) folic acid 1 mg tablet Take 2 tablets by mouth once daily. vit A/vit C/vit E/zinc/copper (OCUVITE PRESERVISION ORAL) Take by mouth twice daily. nystatin (NYSTOP) powder Apply 1 application to affected area four times daily as needed. Yeast infection/rash in groin and under breasts apremilast (OTEZLA) 30 mg tablet Take 30 mg by mouth once daily. hydrocortisone probutate 0.1 % crea Apply to affected area once daily as needed. loratadine (CLARITIN) 10 mg tablet Take 10 mg by mouth once daily. Takes daily as needed acetaminophen (TYLENOL) 325 mg tablet Take 650 mg by mouth every 6 hours as needed. No current facility-administered medications for this visit. ALLERGIES: Floxin [Ofloxacin], Bumex [Bumetanide], Hydrochlorothiazide, Keflex [Cephalexin], Naproxen, Norvasc [Amlodipine Besylate], Penicillins, Proctosol [Hydrocortisone Acetate], Sulfa (Sulfonamide Antibiotics), Colchicine, and Minoxidil PERSONAL HISTORY: Social History Tobacco Use Smoking status: Never Smokeless tobacco: Never Vaping Use Vaping Use: Never used Substance Use Topics Alcohol use: No Drug use: No FAMILY HISTORY: FAMILY HISTORY Problem Relation Age of Onset Diabetes Mother Hypertension Mother Heart Father Diabetes Sister No Known Problems Sister No Known Problems Brother Heart Brother No Known Problems Brother REVIEW OF SYMPTOMS: The review of systems data was entered by the nurse and reviewed by nj Nursing Notes: Danii Us JANY 08/06/2022 1:40 PM Signed REVIEW OF SYSTEMS: General: The patient denies fatigue, denies weight loss, denies weight gain, denies feeling hot, and denies feelings of cold. Eyes: The patient denies glaucoma, denies eye injury/surgery, does not wear glasses or contacts. Ear/Nose/Throat: The patient NOTES allergies, denies hayfever, denies ear infections, and denies bloody noses. Cardiovascular: The patient denies chest pain, denies heart disease, NOTES high blood pressure,denies cardiac stent, denies prior heart attack, NOTES irregular heart beat, denies high cholesterol, denies poor circulation, denies heart failure, other cardiac issues, denies claudication, denies cold feet, denies peripheral arterial stent. Respiratory: The patient denies tuberculosis, denies pneumonia, denies frequent cough, denies pulmonary embolism, denies shortness of breath, and denies coughing up blood. Gastrointestinal: The patient denies difficulty swallowing, NOTES acid reflux, denies ulcers, denies vomiting, denies jaundice/hepatitis, denies gallbladder problems, denies black or tarry stools, NOTES hemorrhoids, denies bleeding from rectum, denies diverticulitis, denies constipation, denies diarrhea, denies loss of stool control, and denies hernias. Kidney/Bladder: The patient denies kidney stones, denies urine infections, and denies bloody urine. Skin: The patient denies a history of skin cancer, denies bleeding/changing moles, and denies a history of skin rash. Neurologic: The patient denies a history of epilepsy/convulsions, denies headaches, denies head/spinal injuries, and denies stroke/TIA. Psychiatric: The patient denies psychiatric medications, denies depression, and denies voices, denies substance abuse. Endocrine: The patient denies thyroid disorders, denies diabetes, and denies hormonal problems. Hematologic: The patient denies a history of bruising, denies bleeding, and denies anemia, denies blood clots. Infections: The patient denies a history of measles and mumps, denies rheumatic fever, and denies sexually transmitted diseases. Musculoskeletal: The patient denies back pain/injury, denies back problems, denies sciatica, deniesknee/foot trouble, denies arthritis, or NOTES gout. When was patient's last Mammogram screening? July 2022 Last Colonoscopy: 2015 Danii Us LPN I have confirmed and edited as necessary, the PFSH and ROS obtained by others. Christel Núñez PA-C PHYSICAL EXAMINATION: General: The patient is 81 year old female, well nourished, well hydrated in no acute distress. Thepatient is oriented to time, place, and person. VITALS: Blood pressure 128/82, pulse 68, temperature 36.2 C (97.2 F), temperature source Temporal, resp. rate 14, height 160 cm (5' 3), weight 73.9 kg (163 lb), SpO2 95 %. Body mass index is 28.87 kg/m . HEENT: Normal cephalic, ataumatic, pupils are equally round, sclera are anicteric, mucous membranesare moist, oropharynx is clear. Neck has no masses, asymmetry or lymphadenopathy. Respiratory: Clear to auscultation and percussion. Normal respiratory excursion and pattern. Cardiac: Examination is regular rate and rhythm. Normal S1/S2 Abdominal exam: Soft, nontender, with no palpable masses. No hepatosplenomegaly. No palpable hernias. Extremities: no clubbing, cyanosis or edema. No adenopathy. LABORATORY VALUES: As Noted RADIOLOGIC STUDIES: As Noted Assessment IMPRESSION: encounter for surveillance colonoscopy due to personal history of colon polyps PLAN: I have reviewed my findings with the surgeon. Will plan for lower endoscopy. We discussed therisks and benefits of the planned endoscopy. I have informed the patient that complications can occur including failure to complete the endoscopy and perforation. The patient had the opportunity to ask questions concerning the planned endoscopy. My staff has also explained the procedure to the patient in understandable terms and has given the patient printed material concerning the procedure. Thepatient freely consents to surgery. The patient was offered a surgery/procedure at a [facility] facility. I have counseled the patient regarding the risk of exposure to and/or potential harm posed by the COVID-19 virus with having a surgery/procedure at this time versus the risk of delaying the surgery/procedure. It is not possible to know either the risk of delaying the surgery or procedure or chance of getting an infection with perfect accuracy, but a joint decision was made between the patient and myself to proceed at this time with endoscopy. I plan to use Miralax/Dulcolax bowel preparation. Reviewed importance of excellent hydration I have explained to the patient the difference between IV conscious sedation and MAC anesthesia - and I have offered either, according to the patient's wishes. I have explained that with IV conscioussedation there is no anesthesia provider available and therefore there is a limitation of the amount of IV medications that can be given and that the patient may wake up in the middle of the procedure and/or experience pain/discomfort during the procedure. Further discussion was done and the patient was given the opportunity to ask questions and all questions were answered. The patient chooses IVconscious sedation, wishes to proceed with her scheduled date of 09/30/[address] Daly in [facility] Diagnoses: (Z12.11) Encounter for screening for malignant neoplasm of colon (primary encounter diagnosis) (Z86.010) History of colonic polyps Consultation requested by Dr. Harvey for an opinion regarding colonoscopy. My final recommendations will be communicated back to the requesting physician by way of shared Medical record or letter to requesting physician via US mail. Christel Núñez PA-C documented in this encounterC[facility]10-[facility] Nurse Note* Danii Magen REYESN - 08/06/2022 1:38 PM EDT REVIEW OF SYSTEMS: General: The patient denies fatigue, denies weight loss, denies weight gain, denies feeling hot, and denies feelings of cold. Eyes: The patient denies glaucoma, denies eye injury/surgery, does not wear glasses or contacts. Ear/Nose/Throat: The patient NOTES allergies, denies hayfever, denies ear infections, and denies bloody noses. Cardiovascular: The patient denies chest pain, denies heart disease, NOTES high blood pressure,denies cardiac stent, denies prior heart attack, NOTES irregular heart beat, denies high cholesterol, denies poor circulation, denies heart failure, other cardiac issues, denies claudication, denies cold feet, denies peripheral arterial stent. Respiratory: The patient denies tuberculosis, denies pneumonia, denies frequent cough, denies pulmonary embolism, denies shortness of breath, and denies coughing up blood. Gastrointestinal: The patient denies difficulty swallowing, NOTES acid reflux, denies ulcers, denies vomiting, denies jaundice/hepatitis, denies gallbladder problems, denies black or tarry stools, NOTES hemorrhoids, denies bleeding from rectum, denies diverticulitis, denies constipation, denies diarrhea, denies loss of stool control, and denies hernias. Kidney/Bladder: The patient denies kidney stones, denies urine infections, and denies bloody urine. Skin: The patient denies a history of skin cancer, denies bleeding/changing moles, and denies a history of skin rash. Neurologic: The patient denies a history of epilepsy/convulsions, denies headaches, denies head/spinal injuries, and denies stroke/TIA. Psychiatric: The patient denies psychiatric medications, denies depression, and denies voices, denies substance abuse. Endocrine: The patient denies thyroid disorders, denies diabetes, and denies hormonal problems. Hematologic: The patient denies a history of bruising, denies bleeding, and denies anemia, denies blood clots. Infections: The patient denies a history of measles and mumps, denies rheumatic fever, and denies sexually transmitted diseases. Musculoskeletal: The patient denies back pain/injury, denies back problems, denies sciatica, deniesknee/foot trouble, denies arthritis, or NOTES gout. When was patient's last Mammogram screening? July 2022 Last Colonoscopy: 2015 Danii Us LPN documented [facility] History of Present illness Narrative* Katja Lo RN - 07/31/2022 3:31 PM EDT INSIGHT CDM TELEPHONIC OUTREACH Provider Action/FYI: No CDM concerns at this time. Denies any new or worsening symptoms. No questions/concerns/needs at this time. Contact made with patient: Yes Patient identified by name and . Discussed care with patient It s nice talking to you again. As a reminder, this is our bi-weekly check-in where I will be asking you questions about your health. This will only take a few minutes of your time. Is this a good time? Yes Symptoms What Chronic Disease(s) does the patient have: CHF and CKD Do you check your blood pressures at home? No Do you have new or worse shortness of breath with activity? No Do you have new or worsening trouble breathing while lying flat? No Do you have new or worsening swelling of legs, feet or ankles? No Do you feel like you are dehydrated for any reason, including not being able to eat or drink normally, or having less urine/much darker urine than normal for you? No Do you check your daily weight at home? No Are you having any other symptoms that your PCP needs to know about? No Symptom Escalation The patient required an escalation for symptom(s)? No Medications Do you have any questions about taking your medication or which medications you should be on? No Do you need any medication refills at this time, including any of the medications you might take only when needed? No Social We would like to make sure you have what you need so that your basic needs are met- including your personal safety, food, housing and medications? Would you like to speak with a social work telesales team leader to help give you support for any of these needs? No It can be normal to feel anxious or down during a time like this. Would you like to talk to a mental health professional about how you have been feeling? No Closing Thank you for taking the time to talk with me today. We want to work with you to ensure that we arekeeping your medical condition(s) well-controlled and to keep you healthy and out of the doctor's office or hospital. It s also not too late for me to sign you up for automated weekly questionnaires through [employer]. This is an easy way for us to stay connected each week. Are you interested? No, I understand. We can always sign you up in the future if you change your mind. Just as a reminder, will continue to call you every other week to check in on your health. Our calls should take 10-15 minutes or less. Remember, if you have concerns in between our calls, please call your PCP's office right away. Thank you. Enter next patient outreach date for two weeks on the same day of the week as today in the Track PtOutreach and End outreach. documented in this encounterC[facility]10-07-[facility]22 Miscellaneous Notes* Telephone Encounter - Faiza Moreland Ma - 07/18/2022 3:41 PM EDT Letter mailed to pt home of results. Faiza Moreland MA * Telephone Encounter - Lulú Moran Ma - 07/17/2022 12:16 PM EDT Left message for patient to return call for results. Lulú Moran Ma * Telephone Encounter - Catalina Jauregui APRN.CNP - 07/17/2022 12:00 PM EDT Please let Mary know that her mammogram looks great, no concerns. Catalina Jauregui APRN.CNP documented in this encounterC[facility]10-06-[facility]22 Miscellaneous Notes* Letter - Mammography Coordinator - 07/17/2022 11:49 AM EDT July 17, 2022 PID: [id number] Mary Crane [address] [place] [address] Dear Ms. Crane, We are pleased to inform you that the results of your recent breast imaging exam on 07/17/2022 are normal. Early detection of cancer is very important. We also understand recommendations regarding breast cancer screening are controversial. Please discuss with your primary care provider which strategy is best for you and whether a mammogram is right for you. Your imaging studies and report will be kept on file at [facility] as part of your permanent medical record and are available for your continuing care. Thank you for allowing us to help in meeting your health care needs. Sincerely, Dr. Nunes Interpreting Radiologist [facility] (Normal over 40) documented in this encounterC[facility]10-06-2022 History of Present illness Narrative* RT Florencia(R) - 07/17/2022 11:30 AM EDT Radiology Service Progress Note PATIENT NAME: Mary Crane DATE OF SERVICE: July 17, 2022 TIME: 11:51 AM PATIENT IDENTITY VERIFICATION COMPLETED USING TWO (2) IDENTIFIERS: Name and Date of confirmedby patient verbally. FALL SCREENING: Has the patient had 2 falls in the last year or 1 fall with injury or currently using an Ambulatory Assistive Device (Walker, Cane, Wheelchair, Crutches, etc.)? No PATIENT GENDER DATA: Female. status: : No status: NO. PATIENT RELEVANT IMPLANT DATA REVIEWED: Not Applicable RADIOLOGY DEPARTMENT: Mammography PERIPHERAL IV DATA: Not applicable SIGNED BY: RT Florencia(R) July 17, 2022 11:51 AM documented in this encounterC[facility]10-03-2022 Miscellaneous Notes* Telephone Encounter - Milana Vegas APRN.CNP - 07/14/2022 8:32 AM EDT Noted. Thank you. Milana Vegas APRN.CNP * Telephone Encounter - Lulú Moran Ma - 07/11/2022 4:27 PM EDT [facility] Golytely [facility]. Pharmacy didn't receive any other rx. Lulú Moran Ma * Telephone Encounter - Milana Vegas APRN.CNP - 07/11/2022 2:22 PM EDT I have sent this over (like 4 times) but its not popping up in medication list. Can you call [facility] and see if they got it. Thank you, Milana Vegas APRN.FELICIA * Telephone Encounter - Nancy Mccann RN - 07/11/2022 1:47 PM EDT Patient reports she is having an upcoming colonoscopy and states she discussed the prep that she wanted ordered by Dr. Harvey at last OV. She reports she went to [facility] the ordered prep and she states it is not the right one. She got the big gallon one and doesn't want to use that strong stuff. She wants the gatorade one. Uses [facility]. Please advise patient. Thank you. documented in this encounterC[facility]09-30-2022 Instructions* Patient Instructions* Milana Vegas APRN.CNP - 07/11/2022 2:17 PM EDT Images from the original note were not included. Bowel Preparation Instructions for: Miralax-Gatorade Preparations IF YOU DO NOT FOLLOW THESE DIRECTIONS, YOUR COLONOSCOPY WILL BE CANCELLED. Vazquez Instructions: Your bowel must be empty so that your doctor can clearly view your colon. Follow all of the instructions in this handout EXACTLY as they are written. Do NOT eat any solid food the ENTIRE day before your colonoscopy. Buy your bowel preparation at least 5 days before your colonoscopy. Four (4) Dulcolax laxative tablets containing 5mg of bisacodyl each (NOT Dulcolax stool softener) One (1) 8.3oz. bottle Miralax (238 grams) or generic equivalent 2 x 32oz. Bottles of Gatorade (NOT RED) Diabetic Patients: Use G2 (Gatorade 2) TRANSPORTATION on the Day of Your Exam A responsible adult MUST be present with you at Check In prior to your colonoscopy and REMAIN in the endoscopy area until you are discharged. You are NOT ALLOWED to drive, take a taxi or bus, or leave the Endoscopy Center ALONE. If you do not have a responsible salesperson driver (family member or friend) withyou to take you home, your exam cannot be done with sedation and will be cancelled. Please bring a list of all of your current medications, including any Mswd-czz-Cwtjljg medications with you. Medications If you take insulin, diabetic medications or blood thinners such as Coumadin (warfarin), Plavix (clopidogrel), Ticlid (ticlopidine hydrochloride), Agrylin (anagrelide), Xarelto (Rivaroxaban), Pradaxa(Dabigatran), Eliquis (Apixaban), and Effient (Prasugrel). You MUST call the doctors who orders those medicines for instructions on altering the dosage before your colonoscopy. All other medications should be taken the day of the exam with a sip of water including ASPIRIN. Five (5) Days Before Your Colonoscopy Do NOT take medicines that stop diarrhea - such as Imodium, Kaopectate, or Pepto Bismol. Do NOT take fiber supplements - such as Metamucil, Citrucel, or Perdiem. Do NOT take products that contain iron - such as multi-vitamins (the label lists what is in the products). Three (3) Days Before Your Colonoscopy Do NOT eat high-fiber foods - such as popcorn, beans, seeds (flax, sunflower, quinoa), multigrain bread, nuts, salad/vegetables, or fresh and dried fruit. 1 Bowel Preparation Instructions for: Miralax-Gatorade Preparations One (1) Day Before Your Colonoscopy Only drink clear liquids the ENTIRE DAY before your colonoscopy. Do NOT eat any solid foods. Drink at least 8 ounces of clear liquids every hour after waking up. The clear liquids you can drink include: Clear Liquid (NO RED LIQUIDS) DO NOT DRINK Gatorade, Pedialyte or Powerade Clear broth or bouillon Coffee or tea (no milk or non-dairy creamer) Carbonated and non-carbonated soft drinks Luis Alberto-Aid or other fruit flavored drinks Strained fruit juices (no pulp) Jell-O, popsicles, hard candy Water Alcohol Milk or non-dairy creamers Noodles or vegetables in soup Juice with pulp Liquid you cannot see through Do not use tobacco/vaping products Mix 1/2 of Miralax bottle (119 grams) in each 32 ounces of Gatorade bottle until dissolved. Keep cool in the refrigerator. DO NOT ADD ICE. The bowel preparation solution will be consumed in two parts. Part 1 5:00 PM - Evening before your colonoscopy Take 4 Dulcolax tablets. 6 PM - Evening before your colonoscopy Drink 32 oz. of the mixed solution. Drink an 8 oz. glass of bowel preparation every 15 minutes for a total of 4 glasses. Fifteen (15) minutes later, drink an 8 oz. glass of of clear liquids every 15 minutes for a total of 2 glasses. You may continue to drink clear liquids till midnight. Part 2 On the day of your colonoscopy you may drink clear liquids up to (three) 3 hours prior to procedure. 4 1/2 hours before your colonoscopy Take another 32 oz. bottle of mixed solution. Drink an 8 oz. glass of bowel prep every 15 minutes for a total of 4 glasses. Fifteen (15) minutes later, drink an 8 oz. glass of clear liquids every 15 minutes for a total of 2glasses. You may continue to drink clear liquids up to (three) 3 hours before your exam. 2 09/2019 Bowel Preparation Instructions for: Miralax-Gatorade Preparations IF YOU DO NOT FOLLOW THESE DIRECTIONS, YOUR COLONOSCOPY WILL BE CANCELLED. Vazquez Instructions: Your bowel must be empty so that your doctor can clearly view your colon. Follow all of the instructions in this handout EXACTLY as they are written. Do NOT eat any solid food the ENTIRE day before your colonoscopy. Buy your bowel preparation at least 5 days before your colonoscopy. Four (4) Dulcolax laxative tablets containing 5mg of bisacodyl each (NOT Dulcolax stool softener) One (1) 8.3oz. bottle Miralax (238 grams) or generic equivalent 2 x 32oz. Bottles of Gatorade (NOT RED) Diabetic Patients: Use G2 (Gatorade 2) TRANSPORTATION on the Day of Your Exam A responsible adult MUST be present with you at Check In prior to your colonoscopy and REMAIN in the endoscopy area until you are discharged. You are NOT ALLOWED to drive, take a taxi or bus, or leave the Endoscopy Center ALONE. If you do not have a responsible salesperson driver (family member or friend) withyou to take you home, your exam cannot be done with sedation and will be cancelled. Please bring a list of all of your current medications, including any Ixxz-vnl-Dkaoywr medications with you. Medications If you take insulin, diabetic medications or blood thinners such as Coumadin (warfarin), Plavix (clopidogrel), Ticlid (ticlopidine hydrochloride), Agrylin (anagrelide), Xarelto (Rivaroxaban), Pradaxa(Dabigatran), Eliquis (Apixaban), and Effient (Prasugrel). You MUST call the doctors who orders those medicines for instructions on altering the dosage before your colonoscopy. All other medications should be taken the day of the exam with a sip of water including ASPIRIN. Five (5) Days Before Your Colonoscopy Do NOT take medicines that stop diarrhea - such as Imodium, Kaopectate, or Pepto Bismol. Do NOT take fiber supplements - such as Metamucil, Citrucel, or Perdiem. Do NOT take products that contain iron - such as multi-vitamins (the label lists what is in the products). Three (3) Days Before Your Colonoscopy Do NOT eat high-fiber foods - such as popcorn, beans, seeds (flax, sunflower, quinoa), multigrain bread, nuts, salad/vegetables, or fresh and dried fruit. 1 Bowel Preparation Instructions for: Miralax-Gatorade Preparations One (1) Day Before Your Colonoscopy Only drink clear liquids the ENTIRE DAY before your colonoscopy. Do NOT eat any solid foods. Drink at least 8 ounces of clear liquids every hour after waking up. The clear liquids you can drink include: Clear Liquid (NO RED LIQUIDS) DO NOT DRINK Gatorade, Pedialyte or Powerade Clear broth or bouillon Coffee or tea (no milk or non-dairy creamer) Carbonated and non-carbonated soft drinks Luis Alberto-Aid or other fruit flavored drinks Strained fruit juices (no pulp) Jell-O, popsicles, hard candy Water Alcohol Milk or non-dairy creamers Noodles or vegetables in soup Juice with pulp Liquid you cannot see through Do not use tobacco/vaping products Mix 1/2 of Miralax bottle (119 grams) in each 32 ounces of Gatorade bottle until dissolved. Keep cool in the refrigerator. DO NOT ADD ICE. The bowel preparation solution will be consumed in two parts. Part 1 5:00 PM - Evening before your colonoscopy Take 4 Dulcolax tablets. 6 PM - Evening before your colonoscopy Drink 32 oz. of the mixed solution. Drink an 8 oz. glass of bowel preparation every 15 minutes for a total of 4 glasses. Fifteen (15) minutes later, drink an 8 oz. glass of of clear liquids every 15 minutes for a total of 2 glasses. You may continue to drink clear liquids till midnight. Part 2 On the day of your colonoscopy you may drink clear liquids up to (three) 3 hours prior to procedure. 4 1/2 hours before your colonoscopy Take another 32 oz. bottle of mixed solution. Drink an 8 oz. glass of bowel prep every 15 minutes for a total of 4 glasses. Fifteen (15) minutes later, drink an 8 oz. glass of clear liquids every 15 minutes for a total of 2glasses. You may continue to drink clear liquids up to (three) 3 hours before your exam. 2 09/2019 Bowel Preparation Instructions for: Miralax-Gatorade Preparations IF YOU DO NOT FOLLOW THESE DIRECTIONS, YOUR COLONOSCOPY WILL BE CANCELLED. Vazquez Instructions: Your bowel must be empty so that your doctor can clearly view your colon. Follow all of the instructions in this handout EXACTLY as they are written. Do NOT eat any solid food the ENTIRE day before your colonoscopy. Buy your bowel preparation at least 5 days before your colonoscopy. Four (4) Dulcolax laxative tablets containing 5mg of bisacodyl each (NOT Dulcolax stool softener) One (1) 8.3oz. bottle Miralax (238 grams) or generic equivalent 2 x 32oz. Bottles of Gatorade (NOT RED) Diabetic Patients: Use G2 (Gatorade 2) TRANSPORTATION on the Day of Your Exam A responsible adult MUST be present with you at Check In prior to your colonoscopy and REMAIN in the endoscopy area until you are discharged. You are NOT ALLOWED to drive, take a taxi or bus, or leave the Endoscopy Center ALONE. If you do not have a responsible salesperson driver (family member or friend) withyou to take you home, your exam cannot be done with sedation and will be cancelled. Please bring a list of all of your current medications, including any Gplw-eid-Ccnveih medications with you. Medications If you take insulin, diabetic medications or blood thinners such as Coumadin (warfarin), Plavix (clopidogrel), Ticlid (ticlopidine hydrochloride), Agrylin (anagrelide), Xarelto (Rivaroxaban), Pradaxa(Dabigatran), Eliquis (Apixaban), and Effient (Prasugrel). You MUST call the doctors who orders those medicines for instructions on altering the dosage before your colonoscopy. All other medications should be taken the day of the exam with a sip of water including ASPIRIN. Five (5) Days Before Your Colonoscopy Do NOT take medicines that stop diarrhea - such as Imodium, Kaopectate, or Pepto Bismol. Do NOT take fiber supplements - such as Metamucil, Citrucel, or Perdiem. Do NOT take products that contain iron - such as multi-vitamins (the label lists what is in the products). Three (3) Days Before Your Colonoscopy Do NOT eat high-fiber foods - such as popcorn, beans, seeds (flax, sunflower, quinoa), multigrain bread, nuts, salad/vegetables, or fresh and dried fruit. 1 Bowel Preparation Instructions for: Miralax-Gatorade Preparations One (1) Day Before Your Colonoscopy Only drink clear liquids the ENTIRE DAY before your colonoscopy. Do NOT eat any solid foods. Drink at least 8 ounces of clear liquids every hour after waking up. The clear liquids you can drink include: Clear Liquid (NO RED LIQUIDS) DO NOT DRINK Gatorade, Pedialyte or Powerade Clear broth or bouillon Coffee or tea (no milk or non-dairy creamer) Carbonated and non-carbonated soft drinks Luis Alberto-Aid or other fruit flavored drinks Strained fruit juices (no pulp) Jell-O, popsicles, hard candy Water Alcohol Milk or non-dairy creamers Noodles or vegetables in soup Juice with pulp Liquid you cannot see through Do not use tobacco/vaping products Mix 1/2 of Miralax bottle (119 grams) in each 32 ounces of Gatorade bottle until dissolved. Keep cool in the refrigerator. DO NOT ADD ICE. The bowel preparation solution will be consumed in two parts. Part 1 5:00 PM - Evening before your colonoscopy Take 4 Dulcolax tablets. 6 PM - Evening before your colonoscopy Drink 32 oz. of the mixed solution. Drink an 8 oz. glass of bowel preparation every 15 minutes for a total of 4 glasses. Fifteen (15) minutes later, drink an 8 oz. glass of of clear liquids every 15 minutes for a total of 2 glasses. You may continue to drink clear liquids till midnight. Part 2 On the day of your colonoscopy you may drink clear liquids up to (three) 3 hours prior to procedure. 4 1/2 hours before your colonoscopy Take another 32 oz. bottle of mixed solution. Drink an 8 oz. glass of bowel prep every 15 minutes for a total of 4 glasses. Fifteen (15) minutes later, drink an 8 oz. glass of clear liquids every 15 minutes for a total of 2glasses. You may continue to drink clear liquids up to (three) 3 hours before your exam. 2 09/2019 documented in this encounterC[facility]09-28-[facility] History of Present illness Narrative* Atul Harvey, - 07/09/2022 7:04 AM EDT CC: Mary Crane is a 81 year old female who presents to the office for follow up HPI: Elevated Alkaline phosphatase, isoenzyme is showing bone source of this. Denies any worsening bone or joint pains or other symptoms. Appetite is normal. No new bruising or bleeding. No hot flashes orsweats. IFG, diet controlled Hemoglobin A1C Date Value Ref Range Status 07/01/2022 5.6 4.3 - 5.6 % Final Comment: [place] [employer] guidelines indicate that patients with HgbA1c in the range 5.7-6.4% are at increased risk for development of diabetes, and intervention by lifestyle modification may be beneficial. HgbA1c greater or equal to 6.5% is considered diagnostic of diabetes. 03/27/2022 5.7 (H) 4.3 - 5.6 % Final Comment: [place] [employer] guidelines indicate that patients with HgbA1c in the range 5.7-6.4% are at increased risk for development of diabetes, and intervention by lifestyle modification may be beneficial. HgbA1c greater or equal to 6.5% is considered diagnostic of diabetes. 01/29/2021 5.5 4.3 - 5.6 % Final Comment: [place] [employer] guidelines indicate that patients with HgbA1c in the range 5.7-6.4% are at increased risk for development of diabetes, and intervention by lifestyle modification may be beneficial. HgbA1c greater or equal to 6.5% is considered diagnostic of diabetes. 06/29/2017 5.4 4.3 - 5.6 % Final Interested in colonoscopy, is overdue for this, has been >5 years, no new symptoms Also is interested in mammogram. RA, seen by Surgeon Assistant for care, taking Otezla HTN, well controlled, taking medications as prescribed. 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 upcoming. Only occasionalpalpitation, no chest pressure or Pain or dyspnea PAST MEDICAL HISTORY Diagnosis Date Advance care planning 04/01/2022 Daughter Noemy Arrhythmia Benign neoplasm of colon Chronic kidney disease 02/09/2015 Diverticulosis of colon (without mention of hemorrhage) IFG (impaired fasting glucose) 03/2022 Incisional hernia 07/06/2015 Internal hemorrhoids without mention of complication Rheumatoid arthritis(714.0) Rheumatoid arthritis(714.0) Sicca syndrome (HCC) Unspecified essential hypertension PAST SURGICAL HISTORY Procedure Laterality Date CATARACT EXTRACTION HX 2005 COLONOSCOPY FLX DX W/COLLJ SPEC WHEN PFRMD 09/30/05 Colonoscopy COLONOSCOPY FLX DX W/COLLJ SPEC WHEN PFRMD 07/28/16 Colonoscopy ESOPHAGOGASTRODUODENOSCOPY TRANSORAL DIAGNOSTIC 12/21/14 EGD LAPAROSCOPY SURG CHOLECYSTECTOMY 02/20/15 NEUROPLASTY &/TRANSPOS MEDIAN NRV CARPAL TUNNE 02/12/2006 Carpal tunnel decomp Left NEUROPLASTY &/TRANSPOS MEDIAN NRV CARPAL TUNNE 02/27/2006 Carpal tunnel decomp Right PAST SURGICAL HISTORY OF 2001 hemorrhoidectomy , bladder, and umbilical hernia repair PAST SURGICAL HISTORY OF 08/2006 bladder suspension REPAIR FIRST ABDOMINAL WALL HERNIA 07/06/2015 with mesh VAGINAL HYSTERECTOMY UTERUS 250 GM/< 1984 Hysterectomy, vaginal and bladder tacked up Current Outpatient Medications Medication Sig furosemide (LASIX) 40 mg tablet Take 1 tablet by mouth once daily. lansoprazole (PREVACID) 30 mg capsule TAKE 1 CAPSULE BY MOUTH TWICE DAILY. 1/2 HOUR BEFORE MEALS. losartan (COZAAR) 100 mg tablet Take 1 tablet by mouth once daily. cyanocobalamin (VITAMIN B-12) 1,000 mcg tab Take 1,000 mcg by mouth once daily. amLODIPine (NORVASC) 5 mg tablet TAKE 1 TABLET BY MOUTH EVERY DAY Cholecalciferol, Vitamin D3, 50 mcg (2,000 unit) cap Take 1 capsule by mouth once daily. allopurinol (ZYLOPRIM) 100 mg tablet Take 1 tablet by mouth once daily. cloNIDine HCl (CATAPRES) 0.2 mg tablet Take 1 tablet by mouth twice daily. potassium chloride ER (K-DUR, KLOR-CON) 10 mEq tablet Take 1 tablet by mouth twice daily. triamcinolone acetonide (KENALOG) 0.1 % cream Apply 1 application to affected area twice daily. On rash, Apply sparingly to area for rash/itching. vit A/vit C/vit E/zinc/copper (OCUVITE PRESERVISION ORAL) Take by mouth twice daily. nystatin (NYSTOP) powder Apply 1 application to affected area four times daily as needed. Yeast infection/rash in groin and under breasts apremilast (OTEZLA) 30 mg tablet Take 30 mg by mouth once daily. hydrocortisone probutate (PANDEL) 0.1 % crea Apply to affected area. loratadine (CLARITIN) 10 mg tablet Take 10 mg by mouth once daily. acetaminophen (TYLENOL) 325 mg tablet Take 650 mg by mouth every 6 hours as needed. atenolol (TENORMIN) 25 mg tablet Take 1 tablet by mouth twice daily. folic acid 1 mg tablet Take 2 tablets by mouth once daily. No current facility-administered medications for this visit. ALLERGIES Allergen Reactions Floxin [Ofloxacin] Anaphylaxis Bumex [Bumetanide] Intolerance Hydrochlorothiazide Rash, Intolerance leucocytoclastic vasculitis Keflex [Cephalexin] Rash Naproxen Rash, Hives Norvasc [Amlodipine* Intolerance Penicillins Intolerance Rash Proctosol [Hydrocor* Intolerance Sulfa (Sulfonamide * Rash, GI Upset Colchicine Hives Minoxidil Other: See Comments facial hair Social History Tobacco Use Smoking status: Never Smokeless tobacco: Never Substance Use Topics Alcohol use: No Drug use: No ROS: See HPI PE: BP 110/70 Pulse 80 Temp (Src) 97 (Right Tympanic) Resp 16 Wt 164 lb (74.4kg) Gen: A&OX3, NAD, non-toxic appearing HEENT: PERRLA, EOMs intact b/l, nares without drainage, pharynx without erythema, exudate, lesions,or drainage. Uvula midline. Neck: No LAD, no thyromegaly, no meningismus. CV: RRR, no murmur Lungs: CTA b/l, no wheezing Skin: No rashes, lesions, or wounds on exposed skin. Arthritis changes of peripheral joints including hands, wrists, feet, ankles, knees No peripheral edema, normal pulses ASSESSMENT/PLAN: 1. Hypertension, essential - ICD9: 401.9, ICD10: I10 (primary diagnosis) - good control - Continue current medication(s) - Encouraged dietary sodium restriction/DASH diet - Recommended regular aerobic exercise. - Recommend home blood pressure monitoring, to bring results in on next visit - Discussed need and benefit for weight loss. - Goal of BP <130/80 - ATENOLOL 25 MG TABLET 2. Need for influenza vaccination - ICD9: V04.81, ICD10: Z23 - INFLUENZA SEASONAL QUADRIVALENT HIGH DOSE AGE 65+ 3. Screening for depression - ICD9: V79.0, ICD10: Z13.31 - DEPRESSION SCREENING/ASSESSMENT 4. Encounter for screening mammogram for malignant neoplasm of breast - ICD9: V76.12, ICD10: Z12.31 - Set up for mammogram, yearly mammogram recommended - Encouraged monthly BSE - Increase calcium intake with supplements or by diet (goal of 7780-6944 mg/day - Colon cancer screening reviewed and colonoscopy recommended - Follow up for annual exam in one year. - WILLI SCREENING 5. Alkaline phosphatase elevation - ICD9: 790.5, ICD10: R74.8 - recheck labs in 3 months, consider bone scan in the future, no new symptoms. Needs to discuss these with Surgeon Assistant- unsure if Otezla could be contributing to these lab changes. - COMP METABOLIC PANEL - PROTEIN ELECTROPHORESIS SERUM W/INTERP - LD LACTATE DEHYDRO 6. Screening for colon cancer - ICD9: V76.51, ICD10: Z12.11 - COLONOSCOPY SCREENING 7. Vitamin D deficiency - ICD9: 268.9, ICD10: E55.9 Continue supplement 8. Dyslipidemia - ICD9: 272.4, ICD10: E78.5 - to be determined upon return of lab results - Encouraged following a low fat, low cholesterol diet. - Discussed the benefits of regular aerobic exercise and weight loss. 9. IFG (impaired fasting glucose) - ICD9: 790.21, ICD10: R73.01 Diet controlled. 10. Rheumatoid arthritis involving multiple sites with positive rheumatoid factor (HCC) - ICD9: 714.0, ICD10: M05.79 F/u with Surgeon Assistant. 11. Stage 3b chronic kidney disease (HCC) - ICD9: 585.3, ICD10: N18.32 - eGFR: Stable - Counseled on avoiding regular use of NSAIDs, adequate hydration, potential risk of IV dye 12. Vitamin B12 deficiency - ICD9: 266.2, ICD10: E53.8 Continue supplement. 13. Pulmonary hypertension (HCC) - ICD9: 416.8, ICD10: I27.20 - stable symptoms. Atul Harvey DO Return if no improvement. Follow up with Atul Harvey DO. To ER if develops chest pain, shortness of breath Discussed risks, benefits, alternatives, and potential side effects of medications. Patient/Guardian expressed understanding and agreed with the plan. See patient instructions. Atul Harvey DO [address] [place] [address] documented in this encounterC[facility] History of Present illness Narrative* Katja Lo RN - 07/04/2022 3:15 PM EDT [facility] TELEPHONIC OUTREACH Provider Action/FYI: No CDM concerns at this time. Denies any new or worsening symptoms. No questions/concerns/needs at this time. Contact made with patient: Yes Patient identified by name and . Discussed care with patient It s nice talking to you again. As a reminder, this is our bi-weekly check-in where I will be asking you questions about your health. This will only take a few minutes of your time. Is this a good time? Yes Symptoms What Chronic Disease(s) does the patient have: CHF and CKD Do you check your blood pressures at home? No Do you have new or worse shortness of breath with activity? No Do you have new or worsening trouble breathing while lying flat? No Do you have new or worsening swelling of legs, feet or ankles? No Do you check your daily weight at home? No and Do you feel like you are dehydrated for any reason, including not being able to eat or drink normally, or having less urine/much darker urine than normal for you? No Do you check your daily weight at home? No Are you having any other symptoms that your PCP needs to know about? No Symptom Escalation The patient required an escalation for symptom(s)? No Medications Do you have any questions about taking your medication or which medications you should be on? No Do you need any medication refills at this time, including any of the medications you might take only when needed? No Social We would like to make sure you have what you need so that your basic needs are met- including your personal safety, food, housing and medications? Would you like to speak with a social work telesales team leader to help give you support for any of these needs? No It can be normal to feel anxious or down during a time like this. Would you like to talk to a mental health professional about how you have been feeling? No Closing Thank you for taking the time to talk with me today. We want to work with you to ensure that we arekeeping your medical condition(s) well-controlled and to keep you healthy and out of the doctor's office or hospital. It s also not too late for me to sign you up for automated weekly questionnaires through [employer]. This is an easy way for us to stay connected each week. Are you interested? No, I understand. We can always sign you up in the future if you change your mind. Just as a reminder, will continue to call you every other week to check in on your health. Our calls should take 10-15 minutes or less. Remember, if you have concerns in between our calls, please call your PCP's office right away. Thank you. Enter next patient outreach date for two weeks on the same day of the week as today in the Track PtOutreach and End outreach. documented in this encounterC[facility]08-29-2022 Miscellaneous Notes* Telephone Encounter - Preeti Brewster MA - 06/09/2022 9:47 AM EDT Patient has been identified by name and date of : Yes Requested Prescriptions Pending Prescriptions Disp Refills furosemide (LASIX) 40 mg tablet 90 tablet 3 Sig: Take 1 tablet by mouth once daily. RX INSTRUCTIONS: Patient aware RX will be sent to pharmacy. No need to notify patient. Preeti Brewster MA Cecilio: 03/2022 Nov: 06/2022 Last refill: 04/2021 * Telephone Encounter - Caryn Jackson Pss - 06/09/2022 9:35 AM EDT Patient has been identified by name and date of : Yes Requested Prescriptions Pending Prescriptions Disp Refills furosemide (LASIX) 40 mg tablet 90 tablet 3 Sig: Take 1 tablet by mouth once daily. RX INSTRUCTIONS: Patient aware RX will be sent to pharmacy. No need to notify patient. Caryn Jackson Pss documented in this encounterC[facility]08-25-[facility]22 History of Present illness Narrative* Katja Lo RN - 06/05/2022 11:04 AM EDT [facility] TELEPHONIC OUTREACH Provider Action/FYI: Contact made with patient: No - Left message Jose Alberto my name is Katja Lo RN your Finishing Machine Operator [employer] [facility] I am calling today for your bi-weekly check in. I am sorry I missed your call. I will reach out to you again tomorrow. (if the third call I will reach out to you again next week) Enter next patient outreach date for the following using the Track Pt Outreach. End outreach. * Katja Lo RN - 06/04/2022 2:36 PM EDT [facility] TELEPHONIC OUTREACH Provider Action/FYI: Contact made with patient: No - Left message Jose Alberto my name is Katja Lo RN your Finishing Machine Operator [employer] [facility] I am calling today for your bi-weekly check in. I am sorry I missed your call. I will reach out to you again tomorrow. (if the third call I will reach out to you again next week) Enter next patient outreach date for the following business day using the Track Pt Outreach. End outreach. documented in this encounterC[facility]07-27-2022 Miscellaneous Notes* Telephone Encounter - Lori Josue LPN - 05/07/2022 8:36 AM EDT Patient phones requesting refills as follows: Pending Prescriptions Disp Refills LANSOPRAZOLE 30 MG CAPSULE,DELAYED RELEASE 180 capsule 1 Sig: TAKE 1 CAPSULE BY MOUTH TWICE DAILY. 1/2 HOUR BEFORE MEALS. MIL: Yes CECILIO-04/01/22 Labs-03/27/22 NOV-07/08/22 med filled 11/11/21 Please review and advise. Lori Josue LPN documented in this encounterC[facility]07-15-2022 History of Present illness Narrative* Katja Lo RN - 04/25/2022 12:50 PM EDT [facility] TELEPHONIC OUTREACH Provider Action/FYI: Contact made with patient: No - Unable to leave message Entered next patient outreach date for the following business day, if third call please enter next outreach date for one week in the Track Pt. Outreach - End Outreach documented in this encounterC[facility]06-30-2022 History of Present illness Narrative* Katja Lo RN - 04/10/2022 2:41 PM EDT [facility] TELEPHONIC OUTREACH Provider Action/FYI: No CDM concerns at this time. Denies any new or worsening symptoms. No questions/concerns/needs at this time. Contact made with patient: Yes Patient identified by name and . Discussed care with patient It s nice talking to you again. As a reminder, this is our bi-weekly check-in where I will be asking you questions about your health. This will only take a few minutes of your time. Is this a good time? Yes Symptoms What Chronic Disease(s) does the patient have: CHF and CKD Do you check your blood pressures at home? No Do you have new or worse shortness of breath with activity? No Do you have new or worsening trouble breathing while lying flat? No Do you have new or worsening swelling of legs, feet or ankles? No Do you feel like you are dehydrated for any reason, including not being able to eat or drink normally, or having less urine/much darker urine than normal for you? No Do you check your daily weight at home? No Are you having any other symptoms that your PCP needs to know about? No Symptom Escalation The patient required an escalation for symptom(s)? No Medications Do you have any questions about taking your medication or which medications you should be on? No Do you need any medication refills at this time, including any of the medications you might take only when needed? No Social We would like to make sure you have what you need so that your basic needs are met- including your personal safety, food, housing and medications? Would you like to speak with a social work telesales team leader to help give you support for any of these needs? No It can be normal to feel anxious or down during a time like this. Would you like to talk to a mental health professional about how you have been feeling? No Closing Thank you for taking the time to talk with me today. We want to work with you to ensure that we arekeeping your medical condition(s) well-controlled and to keep you healthy and out of the doctor's office or hospital. It s also not too late for me to sign you up for automated weekly questionnaires through [employer]. This is an easy way for us to stay connected each week. Are you interested? No, I understand. We can always sign you up in the future if you change your mind. Just as a reminder, will continue to call you every other week to check in on your health. Our calls should take 10-15 minutes or less. Remember, if you have concerns in between our calls, please call your PCP's office right away. Thank you. Enter next patient outreach date for two weeks on the same day of the week as today in the Track PtOutreach and End outreach. documented in this encounterC[facility]06-29-2022 Miscellaneous Notes* Telephone Encounter - Ellen Christopher LPN - 04/09/2022 5:43 PM EDT Left detailed message on pts verified machine. * Telephone Encounter - Milana Vegas APRN.CNP - 04/09/2022 5:21 PM EDT I recommend OTC hydrocortisone creme or calamine lotion to area 4x/day. If symptoms do not improve,please have her make appointment to have this looked at. Thank you, Milana Vegas APRN.FELICIA * Telephone Encounter - Lulú Moran Ma - 04/09/2022 9:24 AM EDT Pt notified, verbalized understanding. Pt reports she thinks she has the start of poison king & is asking for OTC medication suggestions? advised patient to be seen in office but she reports she is too busy. Lulú Moran Ma * Telephone Encounter - Milana Vegas APRN.FELICIA - 04/09/2022 9:18 AM EDT Please instruct patient to continue to monitor. If UTI symptoms return please have her inform us viv can send a different antibiotic to pharmacy as she only got 2 days worth of the first Macrobid script. But with no symptoms currently, I am fine with just monitoring. Thank you, Milana Vegas APRN.FELICIA * Telephone Encounter - Kimi Wyatt RN - 04/07/2022 9:24 AM EDT Patient reports pcp prescribed nitrofurantoin 100 mg for urinary infection. Reports she took the first pill the other night, 2 hours later, developed an awful headache, shivering, shaking, and SOB. Took 2 tylenol which helped. The next morning took another pill and developed all the same symptoms as did with first pill. Stopped taking the medication after that. Feeling better now. Reports the s/sare gone, is no longer having sharp pain in her side, urinating fine, no pain or burning with urination. Asking pcp to please advise patient. documented in this encounterC[facility]06-24-2022 Miscellaneous Notes* Telephone Encounter - Lulú Moran Ma - 04/04/2022 12:56 PM EDT Pt informed, verbalized understanding. Lulú Moran Ma * Telephone Encounter - Milana Vegas APRN.CNP - 04/04/2022 12:48 PM EDT Please let patient know Macrobid was sent to pharmacy. The following approved medication requests have been transmitted electronically. Signed Prescriptions Disp Refills nitrofurantoin monohydrate and macrocrystal (MACROBID) 100 mg capsule 10 capsule 0 Sig: Take 1 capsule by mouth twice daily for 5 days. Authorizing Provider: MILANA VEGAS APRN.CNP * Telephone Encounter - Lulú Moran Ma - 04/03/2022 9:28 AM EDT Pt informed, verbalized understanding. Pt would like antibiotic sent that provider thinks will work best. Lulú Moran Ma * Telephone Encounter - Atul Harvey DO - 04/02/2022 8:44 PM EDT Please inform patient that her urine culture shows some bacteria is present. What antibiotic can she tolerate so we can determine what rx to start her on? Doxycycline or ciprofloxacin or macrobid? I know can't tolerate penicillins and keflex Atul Harvey DO documented in this encounterC[facility]06-22-2022 Miscellaneous Notes* Telephone Encounter - Brooklyn Ying RN - 04/02/2022 2:17 PM EDT Patient has been identified by name and date of : Yes Patient phones for refill(s): Pending Prescriptions Disp Refills LOSARTAN 100 MG TABLET 90 tablet 3 Sig: Take 1 tablet by mouth once daily. MIL: No Date of last office visit with pcp: 04/01/22 Date of last office visit in primary care: Last 2 Encounter Wt Readings: Date: Wt: 04/01/2022 74.8 kg (165 lb) 03/03/2022 73.5 kg (162 lb) Previous labs/tests for medication: Blood Pressure: BUN (mg/dL) Date Value 03/27/2022 17 11/25/2021 13 Sodium (mmol/L) Date Value 03/27/2022 139 11/25/2021 140 Last 1 Encounter BP Readings: Date: BP: 04/01/2022 104/60 Please advise. Thank you. Brooklyn Ying RN documented in this encounterC[facility]06-20-2022 Miscellaneous Notes* Telephone Encounter - Mary Mendieta LPN - 03/31/2022 11:52 AM EDT Pt. informed. Mary Mendieta LPN * Telephone Encounter - Atul Harvey DO - 03/31/2022 7:53 AM EDT Please inform patient that her labs show that her serum creatinine is slightly elevated. Need for adequate hydration of at least 60-80 oz of water a day. Also needs to limit NSAIDs to 2-3 times a week, no more than that. Needs to avoid dehydration. Her HDL cholesterol is mildly low. Needs to be exercising at least 30-45 minutes at least 3-4 days a week with walking. Atul Harvey DO documented in this encounterC[facility]06-10-2022 History of Present illness Narrative* Katja Lo RN - 03/21/2022 1:12 PM EDT [facility] TELEPHONIC OUTREACH Provider Action/FYI: No CDM concerns at this time. Denies any new or worsening symptoms. No questions/concerns/needs at this time. Contact made with patient: Yes Patient identified by name and . Discussed care with patient It s nice talking to you again. As a reminder, this is our bi-weekly check-in where I will be asking you questions about your health. This will only take a few minutes of your time. Is this a good time? Yes Symptoms What Chronic Disease(s) does the patient have: CHF and CKD Do you check your blood pressures at home? No Do you have new or worse shortness of breath with activity? No Do you have new or worsening trouble breathing while lying flat? No Do you have new or worsening swelling of legs, feet or ankles? No Do you feel like you are dehydrated for any reason, including not being able to eat or drink normally, or having less urine/much darker urine than normal for you? No Do you check your daily weight at home? No Are you having any other symptoms that your PCP needs to know about? No Symptom Escalation The patient required an escalation for symptom(s)? No Medications Do you have any questions about taking your medication or which medications you should be on? No Do you need any medication refills at this time, including any of the medications you might take only when needed? No Social We would like to make sure you have what you need so that your basic needs are met- including your personal safety, food, housing and medications? Would you like to speak with a social work telesales team leader to help give you support for any of these needs? No It can be normal to feel anxious or down during a time like this. Would you like to talk to a mental health professional about how you have been feeling? No Closing Thank you for taking the time to talk with me today. We want to work with you to ensure that we arekeeping your medical condition(s) well-controlled and to keep you healthy and out of the doctor's office or hospital. It s also not too late for me to sign you up for automated weekly questionnaires through [employer]. This is an easy way for us to stay connected each week. Are you interested? No, I understand. We can always sign you up in the future if you change your mind. Just as a reminder, will continue to call you every other week to check in on your health. Our calls should take 10-15 minutes or less. Remember, if you have concerns in between our calls, please call your PCP's office right away. Thank you. Enter next patient outreach date for two weeks on the same day of the week as today in the Track PtOutreach and End outreach. * Katja Lo RN - 03/20/2022 2:57 PM EDT [facility] TELEPHONIC OUTREACH Provider Action/FYI: Contact made with patient: No - Left message Hello my name is Katja Lo RN your Finishing Machine Operator [employer] [facility] I am calling today for your bi-weekly check in. I am sorry I missed your call. I will reach out to you again tomorrow. (if the third call I will reach out to you again next week) Enter next patient outreach date for the following day using the Track Pt Outreach. End outreach. documented in this encounterC[facility]05-31-2022 Miscellaneous Notes* Telephone Encounter - Camila Finley RN - 03/11/2022 9:30 AM EDT Patient has been identified by name and date of : Yes Patient phones for refill(s): Pending Prescriptions Disp Refills ATENOLOL 25 MG TABLET 180 tablet 1 Sig: Take 1 tablet by mouth twice daily. MIL: No Date of last office visit in primary care: 12/03/2021; Future Appt. 04/01/2022 Last 2 Encounter Wt Readings: Date: Wt: 03/03/2022 73.5 kg (162 lb) 12/03/2021 71.7 kg (158 lb) Previous labs/tests for medication: Blood Pressure: BUN (mg/dL) Date Value 11/25/2021 13 Sodium (mmol/L) Date Value 11/25/2021 140 Last 1 Encounter BP Readings: Date: BP: 03/03/2022 132/60 Liver Function: ALT (U/L) Date Value 11/25/2021 15 AST (U/L) Date Value 11/25/2021 20 Please advise. Thank you. Camila Finley RN documented in this encounterC[facility]05-26-[facility]22 History of Present illness Narrative* Katja Lo RN - 03/06/2022 11:33 AM EDT [facility] TELEPHONIC OUTREACH Provider Action/FYI: No CDM concerns at this time. Denies any new or worsening symptoms. No questions/concerns/needs at this time. Contact made with patient: Yes Patient identified by name and . Discussed care with patient It s nice talking to you again. As a reminder, this is our bi-weekly check-in where I will be asking you questions about your health. This will only take a few minutes of your time. Is this a good time? Yes Symptoms What Chronic Disease(s) does the patient have: CHF and CKD Do you check your blood pressures at home? No Do you have new or worse shortness of breath with activity? No Do you have new or worsening trouble breathing while lying flat? No Do you have new or worsening swelling of legs, feet or ankles? No Do you feel like you are dehydrated for any reason, including not being able to eat or drink normally, or having less urine/much darker urine than normal for you? No Do you check your daily weight at home? No Are you having any other symptoms that your PCP needs to know about? No Symptom Escalation The patient required an escalation for symptom(s)? No Medications Do you have any questions about taking your medication or which medications you should be on? No Do you need any medication refills at this time, including any of the medications you might take only when needed? No Social We would like to make sure you have what you need so that your basic needs are met- including your personal safety, food, housing and medications? Would you like to speak with a social work telesales team leader to help give you support for any of these needs? No It can be normal to feel anxious or down during a time like this. Would you like to talk to a mental health professional about how you have been feeling? No Closing Thank you for taking the time to talk with me today. We want to work with you to ensure that we arekeeping your medical condition(s) well-controlled and to keep you healthy and out of the doctor's office or hospital. It s also not too late for me to sign you up for automated weekly questionnaires through [employer]. This is an easy way for us to stay connected each week. Are you interested? No, I understand. We can always sign you up in the future if you change your mind. Just as a reminder, will continue to call you every other week to check in on your health. Our calls should take 10-15 minutes or less. Remember, if you have concerns in between our calls, please call your PCP's office right away. Thank you. Enter next patient outreach date for two weeks on the same day of the week as today in the Track PtOutreach and End outreach. documented in this encounterC[facility] History of Present illness Narrative* Danielle Hagen RN - 02/06/2022 8:35 AM EDT [facility] CDM Enrollment Provider Action/FYI: h/o CHF Pt agreed to CDM [facility]ight Program-Telephonic once a month Goal,ADL and Fall Risk assessment Completed Patient referred by: [facility] Marylou Contact made with patient: Yes - Patient identified by name and . Discussed care with patient Jose Alberto this is Danielle Hagen RN and I am calling from Atul Harvey DO office at the [facility]. I am a RN Finishing Machine Operator [employer] with our [facility] Chronic Disease Management program. Atul Harvey DO wanted me to reach out to help you manage your health at home. Our goal is to keep you well at home. We want to help you manage your chronic disease by providing a safety net of resources around you, getting you the care you need in a timely manner, and hopefully keep you out of the ED and hospital. I will send you a few questions once a week through your [employer] account. It will automatically show up for you to complete. There are simple questions that will help us identify if you have any concerns or symptoms and I will call you to help get what you need. We will be able to connect you, review your symptoms, do an on demand visit, or communicate with Atul Harvey, DO if needed. I am going to sign you up for the program now. Enrollment Questions: Let's get you enrolled in the program. No, reason: I'm not comfortable with computers / apps / tech/ smartphones Closing: Patient accepts telephonic outreach Thank you for your time today. I am excited to work together inmanaging your health! I will check back within in two weeks to see how things are going. If questions or concerns arise between phone calls, please reach out to your PCP s office. (Place in active status for [facility] and place name in care team and update next patient outreach data to next business d ay two weeks from today s date) documented in this encounterC[facility]04[facility]07-[facility]22 Miscellaneous Notes* Telephone Encounter - Elizabeth Goldberg LPN - 01/16/2022 9:12 AM EDT Patient has been identified by name and date of : Yes Patient phones for refill(s): Pending Prescriptions Disp Refills CHOLECALCIFEROL (VITAMIN D3) 50 MCG (2,000 UNIT) CAPSULE 90 capsule 3 Sig: Take 1 capsule by mouth once daily. MIL: No Date of last office visit in primary care: 12.03.21 next apt 04/01/22 Last 2 Encounter Wt Readings: Date: Wt: 12/03/2021 71.7 kg (158 lb) 09/30/2021 71.9 kg (158 lb 9.6 oz) Previous labs/tests for medication: Not applicable Please advise. Thank you. Elizabeth Goldberg LPN documented in this encounterC[facility]12-22-2021 Miscellaneous Notes* Telephone Encounter - Lori Josue LPN - 10/02/2021 9:14 AM EST Patient notified of results, verbalizes understanding of instructions. Lori Josue LPN * Telephone Encounter - Maria E Brewster APRN.CNP - 10/02/2021 7:49 AM EST Please notify Negative for covid. Thank you documented in this encounterC[facility]12-20-2021 Miscellaneous Notes* Telephone Encounter - Lulú Moran Ma - 09/30/2021 3:49 PM EST Pt notified and verbalized understanding Lulú Moran Ma * Telephone Encounter - Catalina Jauregui APRN.FELICIA - 09/30/2021 3:10 PM EST She needs to be seen by a provider or be seen in urgent care. Catalina Jauregui APRN.CNP * Telephone Encounter - Kimi Wyatt RN - 09/27/2021 4:17 PM EST Patient phoned asking pcp to prescribe zpak for her sinus infection ([facility]). Advised patient she would need an appt. Patient stated she did not need an appt as pcp has sent zpak to the pharmacybefore without an appt. Patient argued the situation and a family member in the backround argued with patient- Just wants nurse to ask pcp to [facility]. Patient reports she has sinus pressure under eye, dry and productive cough, green runny nose. No exposure to covid- is fully vaccinated. No fever, no sore throat, ears are fine. Please advise. documented in this encounterC[facility]04-20-[facility]21 History of Present illness Narrative* Janay DiazRt)Shantanu - 01/29/2021 9:30 AM EDT Radiology Service Progress Note PATIENT NAME: Mary Crane DATE OF SERVICE: January 29, 2021 TIME: 9:27 AM PATIENT IDENTITY VERIFICATION COMPLETED USING TWO (2) IDENTIFIERS: Name and Date of confirmedby patient verbally. FALL SCREENING: Has the patient had 2 falls in the last year or 1 fall with injury or currently using an Ambulatory Assistive Device (Walker, Cane, Wheelchair, Crutches, etc.)? No PATIENT GENDER DATA: Female. status: : No status: NO. PATIENT RELEVANT IMPLANT DATA REVIEWED: Yes RADIOLOGY DEPARTMENT: General X-ray: Exam(s) Completed: Spine X-Ray(s): Cervical AP / LAT / OBL Upper Extremity X-Ray(s): Shoulder, AP / TRUE AP / AXILLARY bilateral : PERIPHERAL IV DATA: Not applicable SIGNED BY: RT Mima January 29, 2021 9:27 AM documented in this encounterC[facility]03-19-2019 History of Past illness Narrative* Problem Noted Date Resolved Date Epigastric abdominal pain 12/28/20182019 Bloating 12/28/2018 02/24/2020 Rheumatoid arthritis involving multiple sites 02/24/2020 Impacted cerumen of right ear 12/15/2016 Right ear pain 12/15/2016 02/24/2020 Essential hypertension 05/29/2016 0 Primary thrombocytopenia 01/15/2016 022 Chronic kidney disease 02/09/2015 0 Dysphagia, unspecified(787.20) 12/21/2014 0 12/21/2014 Esophageal reflux 12/21/2014 12/21/2014 Nausea alone 12/21/2014 12/21/2014 Hypertension 12/18/2010 05/29/2016 Sialoadenitis 09/04/2008 02/24/2020 Overview: 09/04/2008- Doug ENTTank MD- left submandibular sialoadenitis secondary to stone formation. Follow-up examination, following unspecified joel israel 02/26/2006 02/08/2015 Carpal tunnel syndrome 10/17/2005 6 Other tenosynovitis of hand and wrist 10/17/2005 02/24/2020 Benign neoplasm of colon 09/30/2005 020 Internal hemorrhoids without mention of complica tion 09/30/2005 02/24/2020 HYPERTENSION NOS 05/30/2014 Sicca syndrome 11/29/2021 documented as of this encounter (statuses as of 01/16/2022) [facility] of Past illness Narrative* Problem Noted Date Resolved Date Epigastric abdominal pain 12/28/20182019 Bloating 12/28/2018 02/24/2020 Rheumatoid arthritis involving multiple sites 02/24/2020 Impacted cerumen of right ear 12/15/2016 Right ear pain 12/15/2016 02/24/2020 Essential hypertension 05/29/2016 0 Primary thrombocytopenia 01/15/2016 022 Chronic kidney disease 02/09/2015 0 Dysphagia, unspecified(787.20) 12/21/2014 0 12/21/2014 Esophageal reflux 12/21/2014 12/21/2014 Nausea alone 12/21/2014 12/21/2014 Hypertension 12/18/2010 05/29/2016 Sialoadenitis 09/04/2008 02/24/2020 Overview: 09/04/2008- Doug ENTTank MD- left submandibular sialoadenitis secondary to stone formation. Follow-up examination, following unspecified joel israel 02/26/2006 02/08/2015 Carpal tunnel syndrome 10/17/2005 6 Other tenosynovitis of hand and wrist 10/17/2005 02/24/2020 Benign neoplasm of colon 09/30/2005 020 Internal hemorrhoids without mention of complica tion 09/30/2005 02/24/2020 HYPERTENSION NOS 05/30/2014 Sicca syndrome 11/29/2021 documented as of this encounter (statuses as of 02/06/2022) [facility] of [facility] illness Narrative* Problem Noted Date Resolved Date Epigastric abdominal pain 12/28/20182019 Bloating 12/28/2018 02/24/2020 Rheumatoid arthritis involving multiple sites 02/24/2020 Impacted cerumen of right ear 12/15/2016 Right ear pain 12/15/2016 02/24/2020 Essential hypertension 05/29/2016 0 Primary thrombocytopenia 01/15/2016 022 Chronic kidney disease 02/09/2015 0 Dysphagia, unspecified(787.20) 12/21/2014 0 12/21/2014 Esophageal reflux 12/21/2014 12/21/2014 Nausea alone 12/21/2014 12/21/2014 Hypertension 12/18/2010 05/29/2016 Sialoadenitis 09/04/2008 02/24/2020 Overview: 09/04/2008- [facility], Tank Sloan MD- left submandibular sialoadenitis secondary to stone formation. Follow-up examination, following unspecified joel israel 02/26/2006 02/08/2015 Carpal tunnel syndrome 10/17/2005 06 6 Other tenosynovitis of hand and wrist 10/17/2005 02/24/2020 Benign neoplasm of colon 09/30/2005 020 Internal hemorrhoids without mention of complica tion 09/30/2005 02/24/2020 HYPERTENSION NOS 05/30/2014 Sicca syndrome 11/29/2021 documented as of this encounter (statuses as of 03/06/2022) [facility] illness Narrative* Problem Noted Date Resolved Date Epigastric abdominal pain 12/28/20182019 Bloating 12/28/2018 02/24/2020 Rheumatoid arthritis involving multiple sites 02/24/2020 Impacted cerumen of right ear 12/15/2016 Right ear pain 12/15/2016 02/24/2020 Essential hypertension 05/29/2016 0 Primary thrombocytopenia 01/15/2016 022 Chronic kidney disease 02/09/2015 0 Dysphagia, unspecified(787.20) 12/21/2014 0 12/21/2014 Esophageal reflux 12/21/2014 12/21/2014 Nausea alone 12/21/2014 12/21/2014 Hypertension 12/18/2010 05/29/2016 Sialoadenitis 09/04/2008 02/24/2020 Overview: 09/04/2008- Doug ENTTank MD- left submandibular sialoadenitis secondary to stone formation. Follow-up examination, following unspecified joel israel 02/26/2006 02/08/2015 Carpal tunnel syndrome 10/17/2005 6 Other tenosynovitis of hand and wrist 10/17/2005 02/24/2020 Benign neoplasm of colon 09/30/2005 020 Internal hemorrhoids without mention of complica tion 09/30/2005 02/24/2020 HYPERTENSION NOS 05/30/2014 Sicca syndrome 11/29/2021 documented as of this encounter (statuses as of 03/11/2022) [facility] Narrative* Problem Noted Date Resolved Date Epigastric abdominal pain 12/28/20182019 Bloating 12/28/2018 02/24/2020 Rheumatoid arthritis involving multiple sites 02/24/2020 Impacted cerumen of right ear 12/15/2016 Right ear pain 12/15/2016 02/24/2020 Essential hypertension 05/29/2016 0 Primary thrombocytopenia 01/15/2016 022 Chronic kidney disease 02/09/2015 0 Dysphagia, unspecified(787.20) 12/21/2014 0 12/21/2014 Esophageal reflux 12/21/2014 12/21/2014 Nausea alone 12/21/2014 12/21/2014 Hypertension 12/18/2010 05/29/2016 Sialoadenitis 09/04/2008 02/24/2020 Overview: 09/04/2008- Doug ENTTank MD- left submandibular sialoadenitis secondary to stone formation. Follow-up examination, following unspecified joel israel 02/26/2006 02/08/2015 Carpal tunnel syndrome 10/17/2005 6 Other tenosynovitis of hand and wrist 10/17/2005 02/24/2020 Benign neoplasm of colon 09/30/2005 020 Internal hemorrhoids without mention of complica tion 09/30/2005 02/24/2020 HYPERTENSION NOS 05/30/2014 Sicca syndrome 11/29/2021 documented as of this encounter (statuses as of 03/12/2022) [facility] Narrative* Problem Noted Date Resolved Date Epigastric abdominal pain 12/28/20182019 Bloating 12/28/2018 02/24/2020 Rheumatoid arthritis involving multiple sites 02/24/2020 Impacted cerumen of right ear 12/15/2016 Right ear pain 12/15/2016 02/24/2020 Essential hypertension 05/29/2016 0 Primary thrombocytopenia 01/15/2016 022 Chronic kidney disease 02/09/2015 0 Dysphagia, unspecified(787.20) 12/21/2014 0 12/21/2014 Esophageal reflux 12/21/2014 12/21/2014 Nausea alone 12/21/2014 12/21/2014 Hypertension 12/18/2010 05/29/2016 Sialoadenitis 09/04/2008 02/24/2020 Overview: 09/04/2008- [facility], Tank Sloan MD- left submandibular sialoadenitis secondary to stone formation. Follow-up examination, following unspecified joel israel 02/26/2006 02/08/2015 Carpal tunnel syndrome 10/17/2005 6 Other tenosynovitis of hand and wrist 10/17/2005 02/24/2020 Benign neoplasm of colon 09/30/2005 020 Internal hemorrhoids without mention of complica tion 09/30/2005 02/24/2020 HYPERTENSION NOS 05/30/2014 Sicca syndrome 11/29/2021 documented as of this encounter (statuses as of 03/21/2022) [facility] Narrative* Problem Noted Date Resolved Date Epigastric abdominal pain 12/28/20182019 Bloating 12/28/2018 02/24/2020 Rheumatoid arthritis involving multiple sites 02/24/2020 Impacted cerumen of right ear 12/15/2016 Right ear pain 12/15/2016 02/24/2020 Essential hypertension 05/29/2016 0 Primary thrombocytopenia 01/15/2016 022 Chronic kidney disease 02/09/2015 0 Dysphagia, unspecified(787.20) 12/21/2014 0 12/21/2014 Esophageal reflux 12/21/2014 12/21/2014 Nausea alone 12/21/2014 12/21/2014 Hypertension 12/18/2010 05/29/2016 Sialoadenitis 09/04/2008 02/24/2020 Overview: 09/04/2008- [facility], Tank Sloan MD- left submandibular sialoadenitis secondary to stone formation. Follow-up examination, following unspecified joel israel 02/26/2006 02/08/2015 Carpal tunnel syndrome 10/17/2005 6 Other tenosynovitis of hand and wrist 10/17/2005 02/24/2020 Benign neoplasm of colon 09/30/2005 020 Internal hemorrhoids without mention of complica tion 09/30/2005 02/24/2020 HYPERTENSION NOS 05/30/2014 Sicca syndrome 11/29/2021 documented as of this encounter (statuses as of 03/31/2022) [facility] Narrative* Problem Noted Date Resolved Date Epigastric abdominal pain 12/28/20182019 Bloating 12/28/2018 02/24/2020 Rheumatoid arthritis involving multiple sites 02/24/2020 Impacted cerumen of right ear 12/15/2016 Right ear pain 12/15/2016 02/24/2020 Essential hypertension 05/29/2016 0 Primary thrombocytopenia 01/15/2016 022 Chronic kidney disease 02/09/2015 0 Dysphagia, unspecified(787.20) 12/21/2014 0 12/21/2014 Esophageal reflux 12/21/2014 12/21/2014 Nausea alone 12/21/2014 12/21/2014 Hypertension 12/18/2010 05/29/2016 Sialoadenitis 09/04/2008 02/24/2020 Overview: 09/04/2008- [facility], Tank Sloan MD- left submandibular sialoadenitis secondary to stone formation. Follow-up examination, following unspecified joel israel 02/26/2006 02/08/2015 Carpal tunnel syndrome 10/17/2005 6 Other tenosynovitis of hand and wrist 10/17/2005 02/24/2020 Benign neoplasm of colon 09/30/2005 020 Internal hemorrhoids without mention of complica tion 09/30/2005 02/24/2020 HYPERTENSION NOS 05/30/2014 Sicca syndrome 11/29/2021 documented as of this encounter (statuses as of 04/02/2022) [facility] Narrative* Problem Noted Date Resolved Date Epigastric abdominal pain 12/28/20182019 Bloating 12/28/2018 02/24/2020 Rheumatoid arthritis involving multiple sites 02/24/2020 Impacted cerumen of right ear 12/15/2016 Right ear pain 12/15/2016 02/24/2020 Essential hypertension 05/29/2016 0 Primary thrombocytopenia 01/15/2016 022 Chronic kidney disease 02/09/2015 0 Dysphagia, unspecified(787.20) 12/21/2014 0 12/21/2014 Esophageal reflux 12/21/2014 12/21/2014 Nausea alone 12/21/2014 12/21/2014 Hypertension 12/18/2010 05/29/2016 Sialoadenitis 09/04/2008 02/24/2020 Overview: 09/04/2008- [facility], Tank Sloan MD- left submandibular sialoadenitis secondary to stone formation. Follow-up examination, following unspecified joel israel 02/26/2006 02/08/2015 Carpal tunnel syndrome 10/17/2005 6 Other tenosynovitis of hand and wrist 10/17/2005 02/24/2020 Benign neoplasm of colon 09/30/2005 020 Internal hemorrhoids without mention of complica tion 09/30/2005 02/24/2020 HYPERTENSION NOS 05/30/2014 Sicca syndrome 11/29/2021 documented as of this encounter (statuses as of 04/04/2022) [facility]arrative* Problem Noted Date Resolved Date Epigastric abdominal pain 12/28/20182019 Bloating 12/28/2018 02/24/2020 Rheumatoid arthritis involving multiple sites 02/24/2020 Impacted cerumen of right ear 12/15/2016 Right ear pain 12/15/2016 02/24/2020 Essential hypertension 05/29/2016 0 Primary thrombocytopenia 01/15/2016 022 Chronic kidney disease 02/09/2015 0 Dysphagia, unspecified(787.20) 12/21/2014 0 12/21/2014 Esophageal reflux 12/21/2014 12/21/2014 Nausea alone 12/21/2014 12/21/2014 Hypertension 12/18/2010 05/29/2016 Sialoadenitis 09/04/2008 02/24/2020 Overview: 09/04/2008- [facility], Tank Sloan MD- left submandibular sialoadenitis secondary to stone formation. Follow-up examination, following unspecified joel israel 02/26/2006 02/08/2015 Carpal tunnel syndrome 10/17/2005 6 Other tenosynovitis of hand and wrist 10/17/2005 02/24/2020 Benign neoplasm of colon 09/30/2005 020 Internal hemorrhoids without mention of complica tion 09/30/2005 02/24/2020 HYPERTENSION NOS 05/30/2014 Sicca syndrome 11/29/2021 documented as of this encounter (statuses as of 04/09/2022) [facility]arrative* Problem Noted Date Resolved Date Epigastric abdominal pain 12/28/20182019 Bloating 12/28/2018 02/24/2020 Rheumatoid arthritis involving multiple sites 02/24/2020 Impacted cerumen of right ear 12/15/2016 Right ear pain 12/15/2016 02/24/2020 Essential hypertension 05/29/2016 0 Primary thrombocytopenia 01/15/2016 022 Chronic kidney disease 02/09/2015 0 Dysphagia, unspecified(787.20) 12/21/2014 0 12/21/2014 Esophageal reflux 12/21/2014 12/21/2014 Nausea alone 12/21/2014 12/21/2014 Hypertension 12/18/2010 05/29/2016 Sialoadenitis 09/04/2008 02/24/2020 Overview: 09/04/2008- [facility] [facility], Tank Sloan MD- left submandibular sialoadenitis secondary to stone formation. Follow-up examination, following unspecified joel israel 02/26/2006 02/08/2015 Carpal tunnel syndrome 10/17/2005 6 Other tenosynovitis of hand and wrist 10/17/2005 02/24/2020 Benign neoplasm of colon 09/30/2005 020 Internal hemorrhoids without mention of complica tion 09/30/2005 02/24/2020 HYPERTENSION NOS 05/30/2014 Sicca syndrome 11/29/2021 documented as of this encounter (statuses as of 04/10/2022) [facility]* Problem Noted Date Resolved Date Epigastric abdominal pain 12/28/20182019 Bloating 12/28/2018 02/24/2020 Rheumatoid arthritis involving multiple sites 02/24/2020 Impacted cerumen of right ear 12/15/2016 Right ear pain 12/15/2016 02/24/2020 Essential hypertension 05/29/2016 0 Primary thrombocytopenia 01/15/2016 022 Chronic kidney disease 02/09/2015 0 Dysphagia, unspecified(787.20) 12/21/2014 0 12/21/2014 Esophageal reflux 12/21/2014 12/21/2014 Nausea alone 12/21/2014 12/21/2014 Hypertension 12/18/2010 05/29/2016 Sialoadenitis 09/04/2008 02/24/2020 Overview: 09/04/2008- [facility], Tank Sloan MD- left submandibular sialoadenitis secondary to stone formation. Follow-up examination, following unspecified joel israel 02/26/2006 02/08/2015 Carpal tunnel syndrome 10/17/2005 6 Other tenosynovitis of hand and wrist 10/17/2005 02/24/2020 Benign neoplasm of colon 09/30/2005 020 Internal hemorrhoids without mention of complica tion 09/30/2005 02/24/2020 HYPERTENSION NOS 05/30/2014 Sicca syndrome 11/29/2021 documented as of this encounter (statuses as of 04/25/2022) [facility]* Problem Noted Date Resolved Date Epigastric abdominal pain 12/28/20182019 Bloating 12/28/2018 02/24/2020 Rheumatoid arthritis involving multiple sites 02/24/2020 Impacted cerumen of right ear 12/15/2016 Right ear pain 12/15/2016 02/24/2020 Essential hypertension 05/29/2016 0 Primary thrombocytopenia 01/15/2016 022 Chronic kidney disease 02/09/2015 0 Dysphagia, unspecified(787.20) 12/21/2014 0 12/21/2014 Esophageal reflux 12/21/2014 12/21/2014 Nausea alone 12/21/2014 12/21/2014 Hypertension 12/18/2010 05/29/2016 Sialoadenitis 09/04/2008 02/24/2020 Overview: 09/04/2008- [facility] [facility], Tank Sloan MD- left submandibular sialoadenitis secondary to stone formation. Follow-up examination, following unspecified joel israel 02/26/2006 02/08/2015 Carpal tunnel syndrome 10/17/2005 6 Other tenosynovitis of hand and wrist 10/17/2005 02/24/2020 Benign neoplasm of colon 09/30/2005 020 Internal hemorrhoids without mention of complica tion 09/30/2005 02/24/2020 HYPERTENSION NOS 05/30/2014 Sicca syndrome 11/29/2021 documented as of this encounter (statuses as of 04/26/2022) [facility]arrative* Problem Noted Date Resolved Date Epigastric abdominal pain 12/28/20182019 Bloating 12/28/2018 02/24/2020 Rheumatoid arthritis involving multiple sites 02/24/2020 Impacted cerumen of right ear 12/15/2016 Right ear pain 12/15/2016 02/24/2020 Essential hypertension 05/29/2016 0 Primary thrombocytopenia 01/15/2016 022 Chronic kidney disease 02/09/2015 0 Dysphagia, unspecified(787.20) 12/21/2014 0 12/21/2014 Esophageal reflux 12/21/2014 12/21/2014 Nausea alone 12/21/2014 12/21/2014 Hypertension 12/18/2010 05/29/2016 Sialoadenitis 09/04/2008 02/24/2020 Overview: 09/04/2008- [facility] [facility], Tank Sloan MD- left submandibular sialoadenitis secondary to stone formation. Follow-up examination, following unspecified joel israel 02/26/2006 02/08/2015 Carpal tunnel syndrome 10/17/2005 6 Other tenosynovitis of hand and wrist 10/17/2005 02/24/2020 Benign neoplasm of colon 09/30/2005 020 Internal hemorrhoids without mention of complica tion 09/30/2005 02/24/2020 HYPERTENSION NOS 05/30/2014 Sicca syndrome 11/29/2021 documented as of this encounter (statuses as of 05/07/2022) [facility]arrative* Problem Noted Date Resolved Date Epigastric abdominal pain 12/28/20182019 Bloating 12/28/2018 02/24/2020 Rheumatoid arthritis involving multiple sites 02/24/2020 Impacted cerumen of right ear 12/15/2016 Right ear pain 12/15/2016 02/24/2020 Essential hypertension 05/29/2016 0 Primary thrombocytopenia 01/15/2016 022 Chronic kidney disease 02/09/2015 0 Dysphagia, unspecified(787.20) 12/21/2014 0 12/21/2014 Esophageal reflux 12/21/2014 12/21/2014 Nausea alone 12/21/2014 12/21/2014 Hypertension 12/18/2010 05/29/2016 Sialoadenitis 09/04/2008 02/24/2020 Overview: 09/04/2008- [facility] [facility], Tank Sloan MD- left submandibular sialoadenitis secondary to stone formation. Follow-up examination, following unspecified joel israel 02/26/2006 02/08/2015 Carpal tunnel syndrome 10/17/2005 6 Other tenosynovitis of hand and wrist 10/17/2005 02/24/2020 Benign neoplasm of colon 09/30/2005 020 Internal hemorrhoids without mention of complica tion 09/30/2005 02/24/2020 HYPERTENSION NOS 05/30/2014 Sicca syndrome 11/29/2021 documented as of this encounter (statuses as of 06/05/2022) [facility]arrative* Problem Noted Date Resolved Date Epigastric abdominal pain 12/28/20182019 Bloating 12/28/2018 02/24/2020 Rheumatoid arthritis involving multiple sites 02/24/2020 Impacted cerumen of right ear 12/15/2016 Right ear pain 12/15/2016 02/24/2020 Essential hypertension 05/29/2016 0 Primary thrombocytopenia 01/15/2016 022 Chronic kidney disease 02/09/2015 0 Dysphagia, unspecified(787.20) 12/21/2014 0 12/21/2014 Esophageal reflux 12/21/2014 12/21/2014 Nausea alone 12/21/2014 12/21/2014 Hypertension 12/18/2010 05/29/2016 Sialoadenitis 09/04/2008 02/24/2020 Overview: 09/04/2008- Doug ENTTank MD- left submandibular sialoadenitis secondary to stone formation. Follow-up examination, following unspecified joel israel 02/26/2006 02/08/2015 Carpal tunnel syndrome 10/17/2005 6 Other tenosynovitis of hand and wrist 10/17/2005 02/24/2020 Benign neoplasm of colon 09/30/2005 020 Internal hemorrhoids without mention of complica tion 09/30/2005 02/24/2020 HYPERTENSION NOS 05/30/2014 Sicca syndrome 11/29/2021 documented as of this encounter (statuses as of 06/09/2022) [facility] [facility] History of Past illness Narrative* Problem Noted Date Resolved Date Epigastric abdominal pain 12/28/20182019 Bloating 12/28/2018 02/24/2020 Rheumatoid arthritis involving multiple sites 02/24/2020 Impacted cerumen of right ear 12/15/2016 Right ear pain 12/15/2016 02/24/2020 Essential hypertension 05/29/2016 0 Primary thrombocytopenia 01/15/2016 022 Chronic kidney disease 02/09/2015 0 Dysphagia, unspecified(787.20) 12/21/2014 0 12/21/2014 Esophageal reflux 12/21/2014 12/21/2014 Nausea alone 12/21/2014 12/21/2014 Hypertension 12/18/2010 05/29/2016 Sialoadenitis 09/04/2008 02/24/2020 Overview: 09/04/2008- [facility], Tank Sloan MD- left submandibular sialoadenitis secondary to stone formation. Follow-up examination, following unspecified joel israel 02/26/2006 02/08/2015 Carpal tunnel syndrome 10/17/2005 6 Other tenosynovitis of hand and wrist 10/17/2005 02/24/2020 Benign neoplasm of colon 09/30/2005 020 Internal hemorrhoids without mention of complica tion 09/30/2005 02/24/2020 HYPERTENSION NOS 05/30/2014 Sicca syndrome 11/29/2021 documented as of this encounter (statuses as of 07/04/2022) [facility]03-19-2019 History of Past illness Narrative* Problem Noted Date Resolved Date Epigastric abdominal pain 12/28/20182019 Bloating 12/28/2018 02/24/2020 Rheumatoid arthritis involving multiple sites 02/24/2020 Impacted cerumen of right ear 12/15/2016 Right ear pain 12/15/2016 02/24/2020 Essential hypertension 05/29/2016 0 Primary thrombocytopenia 01/15/2016 022 Chronic kidney disease 02/09/2015 0 Dysphagia, unspecified(787.20) 12/21/2014 0 12/21/2014 Esophageal reflux 12/21/2014 12/21/2014 Nausea alone 12/21/2014 12/21/2014 Hypertension 12/18/2010 05/29/2016 Sialoadenitis 09/04/2008 02/24/2020 Overview: 09/04/2008- [facility], Tank lSoan MD- left submandibular sialoadenitis secondary to stone formation. Follow-up examination, following unspecified joel israel 02/26/2006 02/08/2015 Carpal tunnel syndrome 10/17/2005 06 6 Other tenosynovitis of hand and wrist 10/17/2005 02/24/2020 Benign neoplasm of colon 09/30/2005 020 Internal hemorrhoids without mention of complica tion 09/30/2005 02/24/2020 HYPERTENSION NOS 05/30/2014 Sicca syndrome 11/29/2021 documented as of this encounter (statuses as of 07/09/2022) [facility]03-19-2019 History of Past illness Narrative* Problem Noted Date Resolved Date Epigastric abdominal pain 12/28/20182019 Bloating 12/28/2018 02/24/2020 Rheumatoid arthritis involving multiple sites 02/24/2020 Impacted cerumen of right ear 12/15/2016 Right ear pain 12/15/2016 02/24/2020 Essential hypertension 05/29/2016 0 Primary thrombocytopenia 01/15/2016 022 Chronic kidney disease 02/09/2015 0 Dysphagia, unspecified(787.20) 12/21/2014 0 12/21/2014 Esophageal reflux 12/21/2014 12/21/2014 Nausea alone 12/21/2014 12/21/2014 Hypertension 12/18/2010 05/29/2016 Sialoadenitis 09/04/2008 02/24/2020 Overview: 09/04/2008- Tank Long MD- left submandibular sialoadenitis secondary to stone formation. Follow-up examination, following unspecified joel israel 02/26/2006 02/08/2015 Carpal tunnel syndrome 10/17/2005 6 Other tenosynovitis of hand and wrist 10/17/2005 02/24/2020 Benign neoplasm of colon 09/30/2005 020 Internal hemorrhoids without mention of complica tion 09/30/2005 02/24/2020 HYPERTENSION NOS 05/30/2014 Sicca syndrome 11/29/2021 documented as of this encounter (statuses as of 07/14/2022) [facility]03-19[facility]2019 History of Past illness Narrative* Problem Noted Date Resolved Date Epigastric abdominal pain 12/28/20182019 Bloating 12/28/2018 02/24/2020 Rheumatoid arthritis involving multiple sites 02/24/2020 Impacted cerumen of right ear 12/15/2016 Right ear pain 12/15/2016 02/24/2020 Essential hypertension 05/29/2016 0 Primary thrombocytopenia 01/15/2016 022 Chronic kidney disease 02/09/2015 0 Dysphagia, unspecified(787.20) 12/21/2014 0 12/21/2014 Esophageal reflux 12/21/2014 12/21/2014 Nausea alone 12/21/2014 12/21/2014 Hypertension 12/18/2010 05/29/2016 Sialoadenitis 09/04/2008 02/24/2020 Overview: 09/04/2008- Doug ENTTank MD- left submandibular sialoadenitis secondary to stone formation. Follow-up examination, following unspecified joel israel 02/26/2006 02/08/2015 Carpal tunnel syndrome 10/17/2005 6 Other tenosynovitis of hand and wrist 10/17/2005 02/24/2020 Benign neoplasm of colon 09/30/2005 020 Internal hemorrhoids without mention of complica tion 09/30/2005 02/24/2020 HYPERTENSION NOS 05/30/2014 Sicca syndrome 11/29/2021 documented as of this encounter (statuses as of 07/18/2022) [facility]03-19-2019 History of Past illness Narrative* Problem Noted Date Resolved Date Epigastric abdominal pain 12/28/20182019 Bloating 12/28/2018 02/24/2020 Rheumatoid arthritis involving multiple sites 02/24/2020 Impacted cerumen of right ear 12/15/2016 Right ear pain 12/15/2016 02/24/2020 Essential hypertension 05/29/2016 0 Primary thrombocytopenia 01/15/2016 022 Chronic kidney disease 02/09/2015 0 Dysphagia, unspecified(787.20) 12/21/2014 0 12/21/2014 Esophageal reflux 12/21/2014 12/21/2014 Nausea alone 12/21/2014 12/21/2014 Hypertension 12/18/2010 05/29/2016 Sialoadenitis 09/04/2008 02/24/2020 Overview: 09/04/2008- [facility], Tank Sloan MD- left submandibular sialoadenitis secondary to stone formation. Follow-up examination, following unspecified joel israel 02/26/2006 02/08/2015 Carpal tunnel syndrome 10/17/2005 6 Other tenosynovitis of hand and wrist 10/17/2005 02/24/2020 Benign neoplasm of colon 09/30/2005 020 Internal hemorrhoids without mention of complica tion 09/30/2005 02/24/2020 HYPERTENSION NOS 05/30/2014 Sicca syndrome 11/29/2021 documented as of this encounter (statuses as of 07/18/2022) [facility]03-19-2019 History of Past illness Narrative* Problem Noted Date Resolved Date Epigastric abdominal pain 12/28/20182019 Bloating 12/28/2018 02/24/2020 Rheumatoid arthritis involving multiple sites 02/24/2020 Impacted cerumen of right ear 12/15/2016 Right ear pain 12/15/2016 02/24/2020 Essential hypertension 05/29/2016 0 Primary thrombocytopenia 01/15/2016 022 Chronic kidney disease 02/09/2015 0 Dysphagia, unspecified(787.20) 12/21/2014 0 12/21/2014 Esophageal reflux 12/21/2014 12/21/2014 Nausea alone 12/21/2014 12/21/2014 Hypertension 12/18/2010 05/29/2016 Sialoadenitis 09/04/2008 02/24/2020 Overview: 09/04/2008- [facility], Tank Sloan MD- left submandibular sialoadenitis secondary to stone formation. Follow-up examination, following unspecified joel israel 02/26/2006 02/08/2015 Carpal tunnel syndrome 10/17/2005 6 Other tenosynovitis of hand and wrist 10/17/2005 02/24/2020 Benign neoplasm of colon 09/30/2005 020 Internal hemorrhoids without mention of complica tion 09/30/2005 02/24/2020 HYPERTENSION NOS 05/30/2014 Sicca syndrome 11/29/2021 documented as of this encounter (statuses as of 07/19/2022) [facility]03-19-2019 History of Past illness Narrative* Problem Noted Date Resolved Date Epigastric abdominal pain 12/28/20182019 Bloating 12/28/2018 02/24/2020 Rheumatoid arthritis involving multiple sites 02/24/2020 Impacted cerumen of right ear 12/15/2016 Right ear pain 12/15/2016 02/24/2020 Essential hypertension 05/29/2016 0 Primary thrombocytopenia 01/15/2016 022 Chronic kidney disease 02/09/2015 0 Dysphagia, unspecified(787.20) 12/21/2014 0 12/21/2014 Esophageal reflux 12/21/2014 12/21/2014 Nausea alone 12/21/2014 12/21/2014 Hypertension 12/18/2010 05/29/2016 Sialoadenitis 09/04/2008 02/24/2020 Overview: 09/04/2008- Doug ENTTank MD- left submandibular sialoadenitis secondary to stone formation. Follow-up examination, following unspecified joel israel 02/26/2006 02/08/2015 Carpal tunnel syndrome 10/17/2005 6 Other tenosynovitis of hand and wrist 10/17/2005 02/24/2020 Benign neoplasm of colon 09/30/2005 020 Internal hemorrhoids without mention of complica tion 09/30/2005 02/24/2020 HYPERTENSION NOS 05/30/2014 Sicca syndrome 11/29/2021 documented as of this encounter (statuses as of 07/31/2022) [facility]03-19-2019 History of Past illness Narrative* Problem Noted Date Resolved Date Epigastric abdominal pain 12/28/20182019 Bloating 12/28/2018 02/24/2020 Rheumatoid arthritis involving multiple sites 02/24/2020 Impacted cerumen of right ear 12/15/2016 Right ear pain 12/15/2016 02/24/2020 Essential hypertension 05/29/2016 0 Primary thrombocytopenia 01/15/2016 022 Chronic kidney disease 02/09/2015 0 Dysphagia, unspecified(787.20) 12/21/2014 0 12/21/2014 Esophageal reflux 12/21/2014 12/21/2014 Nausea alone 12/21/2014 12/21/2014 Hypertension 12/18/2010 05/29/2016 Sialoadenitis 09/04/2008 02/24/2020 Overview: 09/04/2008- Doug ENTTank MD- left submandibular sialoadenitis secondary to stone formation. Follow-up examination, following unspecified joel israel 02/26/2006 02/08/2015 Carpal tunnel syndrome 10/17/2005 6 Other tenosynovitis of hand and wrist 10/17/2005 02/24/2020 Benign neoplasm of colon 09/30/2005 020 Internal hemorrhoids without mention of complica tion 09/30/2005 02/24/2020 HYPERTENSION NOS 05/30/2014 Sicca syndrome 11/29/2021 documented as of this encounter (statuses as of 08/06/2022) [facility]03-19[facility]2019 History of Past illness Narrative* Problem Noted Date Resolved Date Epigastric abdominal pain 12/28/20182019 Bloating 12/28/2018 02/24/2020 Rheumatoid arthritis involving multiple sites 02/24/2020 Impacted cerumen of right ear 12/15/2016 Right ear pain 12/15/2016 02/24/2020 Essential hypertension 05/29/2016 0 Primary thrombocytopenia 01/15/2016 022 Chronic kidney disease 02/09/2015 0 Dysphagia, unspecified(787.20) 12/21/2014 0 12/21/2014 Esophageal reflux 12/21/2014 12/21/2014 Nausea alone 12/21/2014 12/21/2014 Hypertension 12/18/2010 05/29/2016 Sialoadenitis 09/04/2008 02/24/2020 Overview: 09/04/2008- [facility], Tank Sloan MD- left submandibular sialoadenitis secondary to stone formation. Follow-up examination, following unspecified joel israel 02/26/2006 02/08/2015 Carpal tunnel syndrome 10/17/2005 6 Other tenosynovitis of hand and wrist 10/17/2005 02/24/2020 Benign neoplasm of colon 09/30/2005 020 Internal hemorrhoids without mention of complica tion 09/30/2005 02/24/2020 HYPERTENSION NOS 05/30/2014 Sicca syndrome 11/29/2021 documented as of this encounter (statuses as of 08/22/2022) [facility]03-19-2019 History of Past illness Narrative* Problem Noted Date Resolved Date Epigastric abdominal pain 12/28/20182019 Bloating 12/28/2018 02/24/2020 Rheumatoid arthritis involving multiple sites 02/24/2020 Impacted cerumen of right ear 12/15/2016 Right ear pain 12/15/2016 02/24/2020 Essential hypertension 05/29/2016 0 Primary thrombocytopenia 01/15/2016 022 Chronic kidney disease 02/09/2015 0 Dysphagia, unspecified(787.20) 12/21/2014 0 12/21/2014 Esophageal reflux 12/21/2014 12/21/2014 Nausea alone 12/21/2014 12/21/2014 Hypertension 12/18/2010 05/29/2016 Sialoadenitis 09/04/2008 02/24/2020 Overview: 09/04/2008- [facility], Tank Sloan MD- left submandibular sialoadenitis secondary to stone formation. Follow-up examination, following unspecified joel israel 02/26/2006 02/08/2015 Carpal tunnel syndrome 10/17/2005 06 6 Other tenosynovitis of hand and wrist 10/17/2005 02/24/2020 Benign neoplasm of colon 09/30/2005 020 Internal hemorrhoids without mention of complica tion 09/30/2005 02/24/2020 HYPERTENSION NOS 05/30/2014 Sicca syndrome 11/29/2021 documented as of this encounter (statuses as of 08/27/2022) [facility]03-19-2019 History of Past illness Narrative* Problem Noted Date Resolved Date Epigastric abdominal pain 12/28/20182019 Bloating 12/28/2018 02/24/2020 Rheumatoid arthritis involving multiple sites 02/24/2020 Impacted cerumen of right ear 12/15/2016 Right ear pain 12/15/2016 02/24/2020 Essential hypertension 05/29/2016 0 Primary thrombocytopenia 01/15/2016 022 Chronic kidney disease 02/09/2015 0 Dysphagia, unspecified(787.20) 12/21/2014 0 12/21/2014 Esophageal reflux 12/21/2014 12/21/2014 Nausea alone 12/21/2014 12/21/2014 Hypertension 12/18/2010 05/29/2016 Sialoadenitis 09/04/2008 02/24/2020 Overview: 09/04/2008- [facility], Tank Sloan MD- left submandibular sialoadenitis secondary to stone formation. Follow-up examination, following unspecified joel israel 02/26/2006 02/08/2015 Carpal tunnel syndrome 10/17/2005 6 Other tenosynovitis of hand and wrist 10/17/2005 02/24/2020 Benign neoplasm of colon 09/30/2005 020 Internal hemorrhoids without mention of complica tion 09/30/2005 02/24/2020 HYPERTENSION NOS 05/30/2014 Sicca syndrome 11/29/2021 documented as of this encounter (statuses as of 09/01/2022) [facility]03-19-2019 History of Past illness Narrative* Problem Noted Date Resolved Date Epigastric abdominal pain 12/28/20182019 Bloating 12/28/2018 02/24/2020 Rheumatoid arthritis involving multiple sites 02/24/2020 Impacted cerumen of right ear 12/15/2016 Right ear pain 12/15/2016 02/24/2020 Essential hypertension 05/29/2016 0 Primary thrombocytopenia 01/15/2016 022 Chronic kidney disease 02/09/2015 0 Dysphagia, unspecified(787.20) 12/21/2014 0 12/21/2014 Esophageal reflux 12/21/2014 12/21/2014 Nausea alone 12/21/2014 12/21/2014 Hypertension 12/18/2010 05/29/2016 Sialoadenitis 09/04/2008 02/24/2020 Overview: 09/04/2008- [facility], Tank Sloan MD- left submandibular sialoadenitis secondary to stone formation. Follow-up examination, following unspecified joel israel 02/26/2006 02/08/2015 Carpal tunnel syndrome 10/17/2005 6 Other tenosynovitis of hand and wrist 10/17/2005 02/24/2020 Benign neoplasm of colon 09/30/2005 020 Internal hemorrhoids without mention of complica tion 09/30/2005 02/24/2020 HYPERTENSION NOS 05/30/2014 Sicca syndrome 11/29/2021 documented as of this encounter (statuses as of 09/16/2022) [facility]03-19-2019 History of Past illness Narrative* Problem Noted Date Resolved Date Epigastric abdominal pain 12/28/20182019 Bloating 12/28/2018 02/24/2020 Rheumatoid arthritis involving multiple sites 02/24/2020 Impacted cerumen of right ear 12/15/2016 Right ear pain 12/15/2016 02/24/2020 Essential hypertension 05/29/2016 0 Primary thrombocytopenia 01/15/2016 022 Chronic kidney disease 02/09/2015 0 Dysphagia, unspecified(787.20) 12/21/2014 0 12/21/2014 Esophageal reflux 12/21/2014 12/21/2014 Nausea alone 12/21/2014 12/21/2014 Hypertension 12/18/2010 05/29/2016 Sialoadenitis 09/04/2008 02/24/2020 Overview: 09/04/2008- [facility], Tank Sloan MD- left submandibular sialoadenitis secondary to stone formation. Follow-up examination, following unspecified joel israel 02/26/2006 02/08/2015 Carpal tunnel syndrome 10/17/2005 6 Other tenosynovitis of hand and wrist 10/17/2005 02/24/2020 Benign neoplasm of colon 09/30/2005 020 Internal hemorrhoids without mention of complica tion 09/30/2005 02/24/2020 HYPERTENSION NOS 05/30/2014 Sicca syndrome 11/29/2021 documented as of this encounter (statuses as of 09/23/2022) [facility]03-19-2019 History of Past illness Narrative* Problem Noted Date Resolved Date Epigastric abdominal pain 12/28/20182019 Bloating 12/28/2018 02/24/2020 Rheumatoid arthritis involving multiple sites 02/24/2020 Impacted cerumen of right ear 12/15/2016 Right ear pain 12/15/2016 02/24/2020 Essential hypertension 05/29/2016 0 Primary thrombocytopenia 01/15/2016 022 Chronic kidney disease 02/09/2015 0 Dysphagia, unspecified(787.20) 12/21/2014 0 12/21/2014 Esophageal reflux 12/21/2014 12/21/2014 Nausea alone 12/21/2014 12/21/2014 Hypertension 12/18/2010 05/29/2016 Sialoadenitis 09/04/2008 02/24/2020 Overview: 09/04/2008- [facility], Tank Sloan MD- left submandibular sialoadenitis secondary to stone formation. Follow-up examination, following unspecified joel israel 02/26/2006 02/08/2015 Carpal tunnel syndrome 10/17/2005 6 Other tenosynovitis of hand and wrist 10/17/2005 02/24/2020 Benign neoplasm of colon 09/30/2005 020 Internal hemorrhoids without mention of complica tion 09/30/2005 02/24/2020 HYPERTENSION NOS 05/30/2014 Sicca syndrome 11/29/2021 documented as of this encounter (statuses as of 10/16/2022) [facility]03-19[facility]2019 History of Past illness Narrative* Problem Noted Date Resolved Date Epigastric abdominal pain 12/28/20182019 Bloating 12/28/2018 02/24/2020 Rheumatoid arthritis involving multiple sites 02/24/2020 Impacted cerumen of right ear 12/15/2016 Right ear pain 12/15/2016 02/24/2020 Essential hypertension 05/29/2016 0 Primary thrombocytopenia 01/15/2016 022 Chronic kidney disease 02/09/2015 0 Dysphagia, unspecified(787.20) 12/21/2014 0 12/21/2014 Esophageal reflux 12/21/2014 12/21/2014 Nausea alone 12/21/2014 12/21/2014 Hypertension 12/18/2010 05/29/2016 Sialoadenitis 09/04/2008 02/24/2020 Overview: 09/04/2008- Doug ENTTank MD- left submandibular sialoadenitis secondary to stone formation. Follow-up examination, following unspecified joel israel 02/26/2006 02/08/2015 Carpal tunnel syndrome 10/17/2005 6 Other tenosynovitis of hand and wrist 10/17/2005 02/24/2020 Benign neoplasm of colon 09/30/2005 020 Internal hemorrhoids without mention of complica tion 09/30/2005 02/24/2020 HYPERTENSION NOS 05/30/2014 Sicca syndrome 11/29/2021 documented as of this encounter (statuses as of 10/17/2022) [facility]03-19[facility]2019 History of Past illness Narrative* Problem Noted Date Resolved Date Epigastric abdominal pain 12/28/20182019 Bloating 12/28/2018 02/24/2020 Rheumatoid arthritis involving multiple sites 02/24/2020 Impacted cerumen of right ear 12/15/2016 Right ear pain 12/15/2016 02/24/2020 Essential hypertension 05/29/2016 0 Primary thrombocytopenia 01/15/2016 022 Chronic kidney disease 02/09/2015 0 Dysphagia, unspecified(787.20) 12/21/2014 0 12/21/2014 Esophageal reflux 12/21/2014 12/21/2014 Nausea alone 12/21/2014 12/21/2014 Hypertension 12/18/2010 05/29/2016 Sialoadenitis 09/04/2008 02/24/2020 Overview: 09/04/2008- [facility], Tank Sloan MD- left submandibular sialoadenitis secondary to stone formation. Follow-up examination, following unspecified joel israel 02/26/2006 02/08/2015 Carpal tunnel syndrome 10/17/2005 6 Other tenosynovitis of hand and wrist 10/17/2005 02/24/2020 Benign neoplasm of colon 09/30/2005 05/15/2 020 Internal hemorrhoids without mention of complica tion 09/30/2005 02/24/2020 HYPERTENSION NOS 05/30/2014 Sicca syndrome 11/29/2021 documented as of this encounter (statuses as of 10/18/2022) [facility]03-19[facility]2019 History of Past illness Narrative* Problem Noted Date Resolved Date Epigastric abdominal pain 12/28/20182019 Bloating 12/28/2018 02/24/2020 Rheumatoid arthritis involving multiple sites 02/24/2020 Impacted cerumen of right ear 12/15/2016 Right ear pain 12/15/2016 02/24/2020 Essential hypertension 05/29/2016 0 Primary thrombocytopenia 01/15/2016 022 Chronic kidney disease 02/09/2015 0 Dysphagia, unspecified(787.20) 12/21/2014 0 12/21/2014 Esophageal reflux 12/21/2014 12/21/2014 Nausea alone 12/21/2014 12/21/2014 Hypertension 12/18/2010 05/29/2016 Sialoadenitis 09/04/2008 02/24/2020 Overview: 09/04/2008- [facility], Tank Sloan MD- left submandibular sialoadenitis secondary to stone formation. Follow-up examination, following unspecified joel israel 02/26/2006 02/08/2015 Carpal tunnel syndrome 10/17/2005 06 6 Other tenosynovitis of hand and wrist 10/17/2005 02/24/2020 Benign neoplasm of colon 09/30/2005 020 Internal hemorrhoids without mention of complica tion 09/30/2005 02/24/2020 HYPERTENSION NOS 05/30/2014 Sicca syndrome 11/29/2021 documented as of this encounter (statuses as of 10/22/2022) [facility]03-19[facility]2019 History of Past illness Narrative* Problem Noted Date Resolved Date Epigastric abdominal pain 12/28/20182019 Bloating 12/28/2018 02/24/2020 Rheumatoid arthritis involving multiple sites 02/24/2020 Impacted cerumen of right ear 12/15/2016 Right ear pain 12/15/2016 02/24/2020 Essential hypertension 05/29/2016 0 Primary thrombocytopenia 01/15/2016 022 Chronic kidney disease 02/09/2015 0 Dysphagia, unspecified(787.20) 12/21/2014 0 12/21/2014 Esophageal reflux 12/21/2014 12/21/2014 Nausea alone 12/21/2014 12/21/2014 Hypertension 12/18/2010 05/29/2016 Sialoadenitis 09/04/2008 02/24/2020 Overview: 09/04/2008- [facility], Tank Sloan MD- left submandibular sialoadenitis secondary to stone formation. Follow-up examination, following unspecified joel israel 02/26/2006 02/08/2015 Carpal tunnel syndrome 10/17/2005 6 Other tenosynovitis of hand and wrist 10/17/2005 02/24/2020 Benign neoplasm of colon 09/30/2005 020 Internal hemorrhoids without mention of complica tion 09/30/2005 02/24/2020 HYPERTENSION NOS 05/30/2014 Sicca syndrome 11/29/2021 documented as of this encounter (statuses as of 10/29/2022) [facility]03[facility] History of Past illness Narrative* Problem Noted Date Resolved Date Epigastric abdominal pain 12/28/20182019 Bloating 12/28/2018 02/24/2020 Rheumatoid arthritis involving multiple sites 02/24/2020 Impacted cerumen of right ear 12/15/2016 Right ear pain 12/15/2016 02/24/2020 Essential hypertension 05/29/2016 0 Primary thrombocytopenia 01/15/2016 022 Chronic kidney disease 02/09/2015 0 Dysphagia, unspecified(787.20) 12/21/2014 0 12/21/2014 Esophageal reflux 12/21/2014 12/21/2014 Nausea alone 12/21/2014 12/21/2014 Hypertension 12/18/2010 05/29/2016 Sialoadenitis 09/04/2008 02/24/2020 Overview: 09/04/2008- [facility], Tank Sloan MD- left submandibular sialoadenitis secondary to stone formation. Follow-up examination, following unspecified joel israel 02/26/2006 02/08/2015 Carpal tunnel syndrome 10/17/2005 6 Other tenosynovitis of hand and wrist 10/17/2005 02/24/2020 Benign neoplasm of colon 09/30/2005 020 Internal hemorrhoids without mention of complica tion 09/30/2005 02/24/2020 HYPERTENSION NOS 05/30/2014 Sicca syndrome 11/29/2021 documented as of this encounter (statuses as of 11/05/2022) [facility] History of Past illness Narrative* Problem Noted Date Resolved Date Epigastric abdominal pain 12/28/20182019 Bloating 12/28/2018 02/24/2020 Rheumatoid arthritis involving multiple sites 02/24/2020 Impacted cerumen of right ear 12/15/2016 Right ear pain 12/15/2016 02/24/2020 Essential hypertension 05/29/2016 0 Primary thrombocytopenia 01/15/2016 022 Chronic kidney disease 02/09/2015 0 Dysphagia, unspecified(787.20) 12/21/2014 0 12/21/2014 Esophageal reflux 12/21/2014 12/21/2014 Nausea alone 12/21/2014 12/21/2014 Hypertension 12/18/2010 05/29/2016 Sialoadenitis 09/04/2008 02/24/2020 Overview: 09/04/2008- [facility], Tank Sloan MD- left submandibular sialoadenitis secondary to stone formation. Follow-up examination, following unspecified joel israel 02/26/2006 02/08/2015 Carpal tunnel syndrome 10/17/2005 6 Other tenosynovitis of hand and wrist 10/17/2005 02/24/2020 Benign neoplasm of colon 09/30/2005 020 Internal hemorrhoids without mention of complica tion 09/30/2005 02/24/2020 HYPERTENSION NOS 05/30/2014 Sicca syndrome 11/29/2021 documented as of this encounter (statuses as of 11/06/2022) [facility] History of Past illness Narrative* Problem Noted Date Resolved Date Epigastric abdominal pain 12/28/20182019 Bloating 12/28/2018 02/24/2020 Rheumatoid arthritis involving multiple sites 02/24/2020 Impacted cerumen of right ear 12/15/2016 Right ear pain 12/15/2016 02/24/2020 Essential hypertension 05/29/2016 0 Primary thrombocytopenia 01/15/2016 022 Chronic kidney disease 02/09/2015 0 Dysphagia, unspecified(787.20) 12/21/2014 0 12/21/2014 Esophageal reflux 12/21/2014 12/21/2014 Nausea alone 12/21/2014 12/21/2014 Hypertension 12/18/2010 05/29/2016 Sialoadenitis 09/04/2008 02/24/2020 Overview: 09/04/2008- [facility], Tank Sloan MD- left submandibular sialoadenitis secondary to stone formation. Follow-up examination, following unspecified joel israel 02/26/2006 02/08/2015 Carpal tunnel syndrome 10/17/2005 6 Other tenosynovitis of hand and wrist 10/17/2005 02/24/2020 Benign neoplasm of colon 09/30/2005 020 Internal hemorrhoids without mention of complica tion 09/30/2005 02/24/2020 HYPERTENSION NOS 05/30/2014 Sicca syndrome 11/29/2021 documented as of this encounter (statuses as of 11/28/2022) [facility]03-19-2019 History of Past illness Narrative* Problem Noted Date Resolved Date Epigastric abdominal pain 12/28/20182019 Bloating 12/28/2018 02/24/2020 Rheumatoid arthritis involving multiple sites 02/24/2020 Impacted cerumen of right ear 12/15/2016 Right ear pain 12/15/2016 02/24/2020 Essential hypertension 05/29/2016 0 Primary thrombocytopenia 01/15/2016 022 Chronic kidney disease 02/09/2015 0 Dysphagia, unspecified(787.20) 12/21/2014 0 12/21/2014 Esophageal reflux 12/21/2014 12/21/2014 Nausea alone 12/21/2014 12/21/2014 Hypertension 12/18/2010 05/29/2016 Sialoadenitis 09/04/2008 02/24/2020 Overview: 09/04/2008- Doug ENTTank MD- left submandibular sialoadenitis secondary to stone formation. Follow-up examination, following unspecified joel israel 02/26/2006 02/08/2015 Carpal tunnel syndrome 10/17/2005 6 Other tenosynovitis of hand and wrist 10/17/2005 02/24/2020 Benign neoplasm of colon 09/30/2005 020 Internal hemorrhoids without mention of complica tion 09/30/2005 02/24/2020 HYPERTENSION NOS 05/30/2014 Sicca syndrome 11/29/2021 documented as of this encounter (statuses as of 12/03/2022) [facility]03-[facility]2019 History of Past illness Narrative* Problem Noted Date Resolved Date Epigastric abdominal pain 12/28/20182019 Bloating 12/28/2018 02/24/2020 Rheumatoid arthritis involving multiple sites 02/24/2020 Impacted cerumen of right ear 12/15/2016 Right ear pain 12/15/2016 02/24/2020 Essential hypertension 05/29/2016 0 Primary thrombocytopenia 01/15/2016 022 Chronic kidney disease 02/09/2015 0 Dysphagia, unspecified(787.20) 12/21/2014 0 12/21/2014 Esophageal reflux 12/21/2014 12/21/2014 Nausea alone 12/21/2014 12/21/2014 Hypertension 12/18/2010 05/29/2016 Sialoadenitis 09/04/2008 02/24/2020 Overview: 09/04/2008- Doug ENTTank MD- left submandibular sialoadenitis secondary to stone formation. Follow-up examination, following unspecified joel israel 02/26/2006 02/08/2015 Carpal tunnel syndrome 10/17/2005 6 Other tenosynovitis of hand and wrist 10/17/2005 02/24/2020 Benign neoplasm of colon 09/30/2005 020 Internal hemorrhoids without mention of complica tion 09/30/2005 02/24/2020 HYPERTENSION NOS 05/30/2014 Sicca syndrome 11/29/2021 documented as of this encounter (statuses as of 12/14/2022) [facility]03[facility]2019 History of Past illness Narrative* Problem Noted Date Resolved Date Epigastric abdominal pain 12/28/20182019 Bloating 12/28/2018 02/24/2020 Rheumatoid arthritis involving multiple sites 02/24/2020 Impacted cerumen of right ear 12/15/2016 Right ear pain 12/15/2016 02/24/2020 Essential hypertension 05/29/2016 0 Primary thrombocytopenia 01/15/2016 022 Chronic kidney disease 02/09/2015 0 Dysphagia, unspecified(787.20) 12/21/2014 0 12/21/2014 Esophageal reflux 12/21/2014 12/21/2014 Nausea alone 12/21/2014 12/21/2014 Hypertension 12/18/2010 05/29/2016 Sialoadenitis 09/04/2008 02/24/2020 Overview: 09/04/2008- [employer], Tank Sloan MD- left submandibular sialoadenitis secondary to stone formation. Follow-up examination, following unspecified joel israel 02/26/2006 02/08/2015 Carpal tunnel syndrome 10/17/2005 6 Other tenosynovitis of hand and wrist 10/17/2005 02/24/2020 Benign neoplasm of colon 09/30/2005 020 Internal hemorrhoids without mention of complica tion 09/30/2005 02/24/2020 HYPERTENSION NOS 05/30/2014 Sicca syndrome 11/29/2021 documented as of this encounter (statuses as of 12/14/2022) [facility]2019 History of Past illness Narrative* Problem Noted Date Resolved Date Epigastric abdominal pain 12/28/20182019 Bloating 12/28/2018 02/24/2020 Rheumatoid arthritis involving multiple sites 02/24/2020 Impacted cerumen of right ear 12/15/2016 Right ear pain 12/15/2016 02/24/2020 Essential hypertension 05/29/2016 0 Primary thrombocytopenia 01/15/2016 022 Chronic kidney disease 02/09/2015 0 Dysphagia, unspecified(787.20) 12/21/2014 0 12/21/2014 Esophageal reflux 12/21/2014 12/21/2014 Nausea alone 12/21/2014 12/21/2014 Hypertension 12/18/2010 05/29/2016 Sialoadenitis 09/04/2008 02/24/2020 Overview: 09/04/2008- Doug [facility]NT, Tank Sloan MD- left submandibular sialoadenitis secondary to stone formation. Follow-up examination, following unspecified joel israel 02/26/2006 02/08/2015 Carpal tunnel syndrome 10/17/2005 06 6 Other tenosynovitis of hand and wrist 10/17/2005 02/24/2020 Benign neoplasm of colon 09/30/2005 020 Internal hemorrhoids without mention of complica tion 09/30/2005 02/24/2020 HYPERTENSION NOS 05/30/2014 Sicca syndrome 11/29/2021 documented as of this encounter (statuses as of 12/22/2022) [facility]03[facility]2019 History of Past illness Narrative* Problem Noted Date Resolved Date Epigastric abdominal pain 12/28/20182019 Bloating 12/28/2018 02/24/2020 Rheumatoid arthritis involving multiple sites 02/24/2020 Impacted cerumen of right ear 12/15/2016 Right ear pain 12/15/2016 02/24/2020 Essential hypertension 05/29/2016 0 Primary thrombocytopenia 01/15/2016 022 Chronic kidney disease 02/09/2015 0 Dysphagia, unspecified(787.20) 12/21/2014 0 12/21/2014 Esophageal reflux 12/21/2014 12/21/2014 Nausea alone 12/21/2014 12/21/2014 Hypertension 12/18/2010 05/29/2016 Sialoadenitis 09/04/2008 02/24/2020 Overview: 09/04/2008- [employer] [facility], Tank Sloan MD- left submandibular sialoadenitis secondary to stone formation. Follow-up examination, following unspecified joel israel 02/26/2006 02/08/2015 Carpal tunnel syndrome 10/17/2005 6 Other tenosynovitis of hand and wrist 10/17/2005 02/24/2020 Benign neoplasm of colon 09/30/2005 020 Internal hemorrhoids without mention of complica tion 09/30/2005 02/24/2020 HYPERTENSION NOS 05/30/2014 Sicca syndrome 11/29/2021 documented as of this encounter (statuses as of 12/29/2022) [facility]03[facility]2019 History of Past illness Narrative* Problem Noted Date Resolved Date Epigastric abdominal pain 12/28/20182019 Bloating 12/28/2018 02/24/2020 Rheumatoid arthritis involving multiple sites 02/24/2020 Impacted cerumen of right ear 12/15/2016 Right ear pain 12/15/2016 02/24/2020 Essential hypertension 05/29/2016 0 Primary thrombocytopenia 01/15/2016 022 Chronic kidney disease 02/09/2015 0 Dysphagia, unspecified(787.20) 12/21/2014 0 12/21/2014 Esophageal reflux 12/21/2014 12/21/2014 Nausea alone 12/21/2014 12/21/2014 Hypertension 12/18/2010 05/29/2016 Sialoadenitis 09/04/2008 02/24/2020 Overview: 09/04/2008- [facility] ENT, Tank Sloan MD- left submandibular sialoadenitis secondary to stone formation. Follow-up examination, following unspecified joel israel 02/26/2006 02/08/2015 Carpal tunnel syndrome 10/17/2005 6 Other tenosynovitis of hand and wrist 10/17/2005 02/24/2020 Benign neoplasm of colon 09/30/2005 020 Internal hemorrhoids without mention of complica tion 09/30/2005 02/24/2020 HYPERTENSION NOS 05/30/2014 Sicca syndrome 11/29/2021 documented as of this encounter (statuses as of 01/05/2023) [facility]2019 History of Past illness Narrative* Problem Noted Date Resolved Date Epigastric abdominal pain 12/28/20182019 Bloating 12/28/2018 02/24/2020 Rheumatoid arthritis involving multiple sites 02/24/2020 Impacted cerumen of right ear 12/15/2016 Right ear pain 12/15/2016 02/24/2020 Essential hypertension 05/29/2016 0 Primary thrombocytopenia 01/15/2016 022 Chronic kidney disease 02/09/2015 0 Dysphagia, unspecified(787.20) 12/21/2014 0 12/21/2014 Esophageal reflux 12/21/2014 12/21/2014 Nausea alone 12/21/2014 12/21/2014 Hypertension 12/18/2010 05/29/2016 Sialoadenitis 09/04/2008 02/24/2020 Overview: 09/04/2008- [employer] [facility], Tank Sloan MD- left submandibular sialoadenitis secondary to stone formation. Follow-up examination, following unspecified joel israel 02/26/2006 02/08/2015 Carpal tunnel syndrome 10/17/2005 6 Other tenosynovitis of hand and wrist 10/17/2005 02/24/2020 Benign neoplasm of colon 09/30/2005 020 Internal hemorrhoids without mention of complica tion 09/30/2005 02/24/2020 HYPERTENSION NOS 05/30/2014 Sicca syndrome 11/29/2021 documented as of this encounter (statuses as of 02/04/2023) [facility]03[facility]2019 History of Past illness Narrative* Problem Noted Date Resolved Date Epigastric abdominal pain 12/28/20182019 Bloating 12/28/2018 02/24/2020 Rheumatoid arthritis involving multiple sites 02/24/2020 Impacted cerumen of right ear 12/15/2016 Right ear pain 12/15/2016 02/24/2020 Essential hypertension 05/29/2016 0 Primary thrombocytopenia 01/15/2016 022 Chronic kidney disease 02/09/2015 0 Dysphagia, unspecified(787.20) 12/21/2014 0 12/21/2014 Esophageal reflux 12/21/2014 12/21/2014 Nausea alone 12/21/2014 12/21/2014 Hypertension 12/18/2010 05/29/2016 Sialoadenitis 09/04/2008 02/24/2020 Overview: 09/04/2008- [facility]NT, Tank Sloan MD- left submandibular sialoadenitis secondary to stone formation. Follow-up examination, following unspecified joel israel 02/26/2006 02/08/2015 Carpal tunnel syndrome 10/17/2005 6 Other tenosynovitis of hand and wrist 10/17/2005 02/24/2020 Benign neoplasm of colon 09/30/2005 020 Internal hemorrhoids without mention of complica tion 09/30/2005 02/24/2020 HYPERTENSION NOS 05/30/2014 Sicca syndrome 11/29/2021 documented as of this encounter (statuses as of 03/16/2023) [facility]03[facility]2019 History of Past illness Narrative* Problem Noted Date Resolved Date Epigastric abdominal pain 12/28/20182019 Bloating 12/28/2018 02/24/2020 Rheumatoid arthritis involving multiple sites 02/24/2020 Impacted cerumen of right ear 12/15/2016 Right ear pain 12/15/2016 02/24/2020 Essential hypertension 05/29/2016 0 Primary thrombocytopenia 01/15/2016 022 Chronic kidney disease 02/09/2015 0 Dysphagia, unspecified(787.20) 12/21/2014 0 12/21/2014 Esophageal reflux 12/21/2014 12/21/2014 Nausea alone 12/21/2014 12/21/2014 Hypertension 12/18/2010 05/29/2016 Sialoadenitis 09/04/2008 02/24/2020 Overview: 09/04/2008- Doug ENTTank MD- left submandibular sialoadenitis secondary to stone formation. Follow-up examination, following unspecified joel israel 02/26/2006 02/08/2015 Carpal tunnel syndrome 10/17/2005 6 Other tenosynovitis of hand and wrist 10/17/2005 02/24/2020 Benign neoplasm of colon 09/30/2005 020 Internal hemorrhoids without mention of complica tion 09/30/2005 02/24/2020 HYPERTENSION NOS 05/30/2014 Sicca syndrome 11/29/2021 documented as of this encounter (statuses as of 03/18/2023) [facility]03[facility]2019 History of Past illness Narrative* Problem Noted Date Resolved Date Epigastric abdominal pain 12/28/20182019 Bloating 12/28/2018 02/24/2020 Rheumatoid arthritis involving multiple sites 02/24/2020 Impacted cerumen of right ear 12/15/2016 Right ear pain 12/15/2016 02/24/2020 Essential hypertension 05/29/2016 0 Primary thrombocytopenia 01/15/2016 022 Chronic kidney disease 02/09/2015 0 Dysphagia, unspecified(787.20) 12/21/2014 0 12/21/2014 Esophageal reflux 12/21/2014 12/21/2014 Nausea alone 12/21/2014 12/21/2014 Hypertension 12/18/2010 05/29/2016 Sialoadenitis 09/04/2008 02/24/2020 Overview: 09/04/2008- Doug ENTTank MD- left submandibular sialoadenitis secondary to stone formation. Follow-up examination, following unspecified joel israel 02/26/2006 02/08/2015 Carpal tunnel syndrome 10/17/2005 6 Other tenosynovitis of hand and wrist 10/17/2005 02/24/2020 Benign neoplasm of colon 09/30/2005 020 Internal hemorrhoids without mention of complica tion 09/30/2005 02/24/2020 HYPERTENSION NOS 05/30/2014 Sicca syndrome 11/29/2021 documented as of this encounter (statuses as of 03/18/2023) [facility]2019 History of Past illness Narrative* Problem Noted Date Resolved Date Epigastric abdominal pain 12/28/20182019 Bloating 12/28/2018 02/24/2020 Rheumatoid arthritis involving multiple sites 02/24/2020 Impacted cerumen of right ear 12/15/2016 Right ear pain 12/15/2016 02/24/2020 Essential hypertension 05/29/2016 0 Primary thrombocytopenia 01/15/2016 022 Chronic kidney disease 02/09/2015 0 Dysphagia, unspecified(787.20) 12/21/2014 0 12/21/2014 Esophageal reflux 12/21/2014 12/21/2014 Nausea alone 12/21/2014 12/21/2014 Hypertension 12/18/2010 05/29/2016 Sialoadenitis 09/04/2008 02/24/2020 Overview: 09/04/2008- [employer] [facility], Tank Sloan MD- left submandibular sialoadenitis secondary to stone formation. Follow-up examination, following unspecified joel israel 02/26/2006 02/08/2015 Carpal tunnel syndrome 10/17/2005 6 Other tenosynovitis of hand and wrist 10/17/2005 02/24/2020 Benign neoplasm of colon 09/30/2005 020 Internal hemorrhoids without mention of complica tion 09/30/2005 02/24/2020 HYPERTENSION NOS 05/30/2014 Sicca syndrome 11/29/2021 documented as of this encounter (statuses as of 03/19/2023) [facility]2019 History of Past illness Narrative* Problem Noted Date Resolved Date Epigastric abdominal pain 12/28/20182019 Bloating 12/28/2018 02/24/2020 Rheumatoid arthritis involving multiple sites 02/24/2020 Impacted cerumen of right ear 12/15/2016 Right ear pain 12/15/2016 02/24/2020 Essential hypertension 05/29/2016 0 Primary thrombocytopenia 01/15/2016 022 Chronic kidney disease 02/09/2015 0 Dysphagia, unspecified(787.20) 12/21/2014 0 12/21/2014 Esophageal reflux 12/21/2014 12/21/2014 Nausea alone 12/21/2014 12/21/2014 Hypertension 12/18/2010 05/29/2016 Sialoadenitis 09/04/2008 02/24/2020 Overview: 09/04/2008- [facility] ENT, Tank Sloan MD- left submandibular sialoadenitis secondary to stone formation. Follow-up examination, following unspecified joel israel 02/26/2006 02/08/2015 Carpal tunnel syndrome 10/17/2005 6 Other tenosynovitis of hand and wrist 10/17/2005 02/24/2020 Benign neoplasm of colon 09/30/2005 020 Internal hemorrhoids without mention of complica tion 09/30/2005 02/24/2020 HYPERTENSION NOS 05/30/2014 Sicca syndrome 11/29/2021 documented as of this encounter (statuses as of 04/11/2023) [facility]2019 History of Past illness Narrative* Problem Noted Date Resolved Date Epigastric abdominal pain 12/28/20182019 Bloating 12/28/2018 02/24/2020 Rheumatoid arthritis involving multiple sites 02/24/2020 Impacted cerumen of right ear 12/15/2016 Right ear pain 12/15/2016 02/24/2020 Essential hypertension 05/29/2016 0 Primary thrombocytopenia 01/15/2016 022 Chronic kidney disease 02/09/2015 0 Dysphagia, unspecified(787.20) 12/21/2014 0 12/21/2014 Esophageal reflux 12/21/2014 12/21/2014 Nausea alone 12/21/2014 12/21/2014 Hypertension 12/18/2010 05/29/2016 Sialoadenitis 09/04/2008 02/24/2020 Overview: 09/04/2008- [facility], Tank Sloan MD- left submandibular sialoadenitis secondary to stone formation. Follow-up examination, following unspecified joel israel 02/26/2006 02/08/2015 Carpal tunnel syndrome 10/17/2005 6 Other tenosynovitis of hand and wrist 10/17/2005 02/24/2020 Benign neoplasm of colon 09/30/2005 020 Internal hemorrhoids without mention of complica tion 09/30/2005 02/24/2020 HYPERTENSION NOS 05/30/2014 Sicca syndrome 11/29/2021 documented as of this encounter (statuses as of 04/13/2023) [facility]2019 History of Past illness Narrative* Problem Noted Date Resolved Date Epigastric abdominal pain 12/28/20182019 Bloating 12/28/2018 02/24/2020 Rheumatoid arthritis involving multiple sites 02/24/2020 Impacted cerumen of right ear 12/15/2016 Right ear pain 12/15/2016 02/24/2020 Essential hypertension 05/29/2016 0 Primary thrombocytopenia 01/15/2016 022 Chronic kidney disease 02/09/2015 0 Dysphagia, unspecified(787.20) 12/21/2014 0 12/21/2014 Esophageal reflux 12/21/2014 12/21/2014 Nausea alone 12/21/2014 12/21/2014 Hypertension 12/18/2010 05/29/2016 Sialoadenitis 09/04/2008 02/24/2020 Overview: 09/04/2008- [facility], Tank Sloan MD- left submandibular sialoadenitis secondary to stone formation. Follow-up examination, following unspecified joel israel 02/26/2006 02/08/2015 Carpal tunnel syndrome 10/17/2005 6 Other tenosynovitis of hand and wrist 10/17/2005 02/24/2020 Benign neoplasm of colon 09/30/2005 020 Internal hemorrhoids without mention of complica tion 09/30/2005 02/24/2020 HYPERTENSION NOS 05/30/2014 Sicca syndrome 11/29/2021 documented as of this encounter (statuses as of 04/17/2023) [facility] History of Past illness Narrative* Problem Noted Date Diagnosed Date Resolved Date Epigastric abdominal pain 12/28/2018 Bloating 12/28/2018 02/24/2020 Rheumatoid arthritis involving multiple sites 12/16/1902/24/2020 Impacted cerumen of right ear 12/15/2016 02/24/2020 Right ear pain 12/15/2016 02/24/2020 Essential hypertension 05/29/201602/23 Primary thrombocytopenia 01/15/2016 Chronic kidney disease 02/09/201502/23 Dysphagia, unspecified(787.20) 12/21/2014 12/21/2014 Esophageal reflux 12/21/2014 12/21/2014 Nausea alone 12/21/2014 12/21/2014 Hypertension 12/18/2010 05/29/2016 Sialoadenitis 09/04/2008 02/24/2020 Overview: 09/04/2008- [employer] [facility], Tank Sloan MD- left submandibular sialoadenitis secondary to stone formation. Follow-up examination, follo wing unspecified surgery 02/26/2006 02/08/2015 Carpal tunnel syndrome 10/17/200503/12 Other tenosynovitis of hand and wrist 10/17/2005 02/24/2020 Benign neoplasm of colon 09/30/2005 Internal hemorrhoids without mention of complication 09/30/2005 02/24/2020 HYPERTENSION NOS 05/30/2014 Sicca syndrome 11/29/2021 documented as of this encounter (statuses as of 04/23/2023) [facility] History of Past illness Narrative* Problem Noted Date Diagnosed Date Resolved Date Epigastric abdominal pain 12/28/2018 Bloating 12/28/2018 02/24/2020 Rheumatoid arthritis involving multiple sites 12/16/1902/24/2020 Impacted cerumen of right ear 12/15/2016 02/24/2020 Right ear pain 12/15/2016 02/24/2020 Essential hypertension 05/29/201602/23 Primary thrombocytopenia 01/15/2016 Chronic kidney disease 02/09/201502/23 Dysphagia, unspecified(787.20) 12/21/2014 12/21/2014 Esophageal reflux 12/21/2014 12/21/2014 Nausea alone 12/21/2014 12/21/2014 Hypertension 12/18/2010 05/29/2016 Sialoadenitis 09/04/2008 02/24/2020 Overview: 09/04/2008- [facility], Tank Sloan MD- left submandibular sialoadenitis secondary to stone formation. Follow-up examination, follo wing unspecified surgery 02/26/2006 02/08/2015 Carpal tunnel syndrome 10/17/200503/12 Other tenosynovitis of hand and wrist 10/17/2005 02/24/2020 Benign neoplasm of colon 09/30/2005 Internal hemorrhoids without mention of complication 09/30/2005 02/24/2020 HYPERTENSION NOS 05/30/2014 Sicca syndrome 11/29/2021 documented as of this encounter (statuses as of 05/19/2023) [facility] History of Past illness Narrative* Problem Noted Date Diagnosed Date Resolved Date Epigastric abdominal pain 12/28/2018 Bloating 12/28/2018 02/24/2020 Rheumatoid arthritis involving multiple sites 12/16/19 17 02/24/2020 Impacted cerumen of right ear 12/15/2016 02/24/2020 Right ear pain 12/15/2016 02/24/2020 Essential hypertension 05/29/201602/23 Primary thrombocytopenia 01/15/2016 Chronic kidney disease 02/09/201502/23 Dysphagia, unspecified(787.20) 12/21/2014 12/21/2014 Esophageal reflux 12/21/2014 12/21/2014 Nausea alone 12/21/2014 12/21/2014 Hypertension 12/18/2010 05/29/2016 Sialoadenitis 09/04/2008 02/24/2020 Overview: 09/04/2008- [facility], Tank Sloan MD- left submandibular sialoadenitis secondary to stone formation. Follow-up examination, follo wing unspecified surgery 02/26/2006 02/08/2015 Carpal tunnel syndrome 10/17/200503/12 Other tenosynovitis of hand and wrist 10/17/2005 02/24/2020 Benign neoplasm of colon 09/30/2005 Internal hemorrhoids without mention of complication 09/30/2005 02/24/2020 HYPERTENSION NOS 05/30/2014 Sicca syndrome 11/29/2021 documented as of this encounter (statuses as of 06/12/2023) [facility] History of Past illness Narrative* Problem Noted Date Diagnosed Date Resolved Date Epigastric abdominal pain 12/28/2018 Bloating 12/28/2018 02/24/2020 Rheumatoid arthritis involving multiple sites 12/16/19 17 02/24/2020 Impacted cerumen of right ear 12/15/2016 02/24/2020 Right ear pain 12/15/2016 02/24/2020 Essential hypertension 05/29/201602/23 Primary thrombocytopenia 01/15/2016 Chronic kidney disease 02/09/201502/23 Dysphagia, unspecified(787.20) 12/21/2014 12/21/2014 Esophageal reflux 12/21/2014 12/21/2014 Nausea alone 12/21/2014 12/21/2014 Hypertension 12/18/2010 05/29/2016 Sialoadenitis 09/04/2008 02/24/2020 Overview: 09/04/2008- [employer] [facility], Tank Sloan MD- left submandibular sialoadenitis secondary to stone formation. Follow-up examination, follo wing unspecified surgery 02/26/2006 02/08/2015 Carpal tunnel syndrome 10/17/200503/12 Other tenosynovitis of hand and wrist 10/17/2005 02/24/2020 Benign neoplasm of colon 09/30/2005 Internal hemorrhoids without mention of complication 09/30/2005 02/24/2020 HYPERTENSION NOS 05/30/2014 Sicca syndrome 11/29/2021 documented as of this encounter (statuses as of 06/23/2023) [facility] History of Past illness Narrative* Problem Noted Date Diagnosed Date Resolved Date Epigastric abdominal pain 12/28/2018 Bloating 12/28/2018 02/24/2020 Rheumatoid arthritis involving multiple sites 12/16/19 17 02/24/2020 Impacted cerumen of right ear 12/15/2016 02/24/2020 Right ear pain 12/15/2016 02/24/2020 Essential hypertension 05/29/201602/23 Primary thrombocytopenia 01/15/2016 Chronic kidney disease 02/09/201502/23 Dysphagia, unspecified(787.20) 12/21/2014 12/21/2014 Esophageal reflux 12/21/2014 12/21/2014 Nausea alone 12/21/2014 12/21/2014 Hypertension 12/18/2010 05/29/2016 Sialoadenitis 09/04/2008 02/24/2020 Overview: 09/04/2008- [facility], Tank Sloan MD- left submandibular sialoadenitis secondary to stone formation. Follow-up examination, follo wing unspecified surgery 02/26/2006 02/08/2015 Carpal tunnel syndrome 10/17/200503/12 Other tenosynovitis of hand and wrist 10/17/2005 02/24/2020 Benign neoplasm of colon 09/30/2005 Internal hemorrhoids without mention of complication 09/30/2005 02/24/2020 HYPERTENSION NOS 05/30/2014 Sicca syndrome 11/29/2021 documented as of this encounter (statuses as of 06/25/2023) [facility] History of Past illness Narrative* Problem Noted Date Diagnosed Date Resolved Date Epigastric abdominal pain 12/28/2018 Bloating 12/28/2018 02/24/2020 Rheumatoid arthritis involving multiple sites 12/16/19 17 02/24/2020 Impacted cerumen of right ear 12/15/2016 02/24/2020 Right ear pain 12/15/2016 02/24/2020 Essential hypertension 05/29/201602/23 Primary thrombocytopenia 01/15/2016 Chronic kidney disease 02/09/201502/23 Dysphagia, unspecified(787.20) 12/21/2014 12/21/2014 Esophageal reflux 12/21/2014 12/21/2014 Nausea alone 12/21/2014 12/21/2014 Hypertension 12/18/2010 05/29/2016 Sialoadenitis 09/04/2008 02/24/2020 Overview: 09/04/2008- [facility], Tank Sloan MD- left submandibular sialoadenitis secondary to stone formation. Follow-up examination, follo wing unspecified surgery 02/26/2006 02/08/2015 Carpal tunnel syndrome 10/17/200503/12 Other tenosynovitis of hand and wrist 10/17/2005 02/24/2020 Benign neoplasm of colon 09/30/2005 Internal hemorrhoids without mention of complication 09/30/2005 02/24/2020 HYPERTENSION NOS 05/30/2014 Sicca syndrome 11/29/2021 documented as of this encounter (statuses as of 07/15/2023) [facility] History of Past illness Narrative* Problem Noted Date Diagnosed Date Resolved Date Epigastric abdominal pain 12/28/2018 Bloating 12/28/2018 02/24/2020 Rheumatoid arthritis involving multiple sites 12/16/19 17 02/24/2020 Impacted cerumen of right ear 12/15/2016 02/24/2020 Right ear pain 12/15/2016 02/24/2020 Essential hypertension 05/29/201602/23 Primary thrombocytopenia 01/15/2016 Chronic kidney disease 02/09/201502/23 Dysphagia, unspecified(787.20) 12/21/2014 12/21/2014 Esophageal reflux 12/21/2014 12/21/2014 Nausea alone 12/21/2014 12/21/2014 Hypertension 12/18/2010 05/29/2016 Sialoadenitis 09/04/2008 02/24/2020 Overview: 09/04/2008- Tank Long MD- left submandibular sialoadenitis secondary to stone formation. Follow-up examination, follo wing unspecified surgery 02/26/2006 02/08/2015 Carpal tunnel syndrome 10/17/200503/12 Other tenosynovitis of hand and wrist 10/17/2005 02/24/2020 Benign neoplasm of colon 09/30/2005 Internal hemorrhoids without mention of complication 09/30/2005 02/24/2020 HYPERTENSION NOS 05/30/2014 Sicca syndrome 11/29/2021 documented as of this encounter (statuses as of 07/23/2023) [facility]2019 History of Past illness Narrative* Problem Noted Date Diagnosed Date Resolved Date Epigastric abdominal pain 12/28/2018 Bloating 12/28/2018 02/24/2020 Rheumatoid arthritis involving multiple sites 12/16/1902/24/2020 Impacted cerumen of right ear 12/15/2016 02/24/2020 Right ear pain 12/15/2016 02/24/2020 Essential hypertension 05/29/201602/23 Primary thrombocytopenia 01/15/2016 Chronic kidney disease 02/09/201502/23 Dysphagia, unspecified(787.20) 12/21/2014 12/21/2014 Esophageal reflux 12/21/2014 12/21/2014 Nausea alone 12/21/2014 12/21/2014 Hypertension 12/18/2010 05/29/2016 Sialoadenitis 09/04/2008 02/24/2020 Overview: 09/04/2008- [facility], Tank Sloan MD- left submandibular sialoadenitis secondary to stone formation. Follow-up examination, follo wing unspecified surgery 02/26/2006 02/08/2015 Carpal tunnel syndrome 10/17/200503/12 Other tenosynovitis of hand and wrist 10/17/2005 02/24/2020 Benign neoplasm of colon 09/30/2005 Internal hemorrhoids without mention of complication 09/30/2005 02/24/2020 HYPERTENSION NOS 05/30/2014 Sicca syndrome 11/29/2021 documented as of this encounter (statuses as of 08/06/2023) [facility] History of Past illness Narrative* Problem Noted Date Diagnosed Date Resolved Date Epigastric abdominal pain 12/28/2018 Bloating 12/28/2018 02/24/2020 Rheumatoid arthritis involving multiple sites 12/16/19 17 02/24/2020 Impacted cerumen of right ear 12/15/2016 02/24/2020 Right ear pain 12/15/2016 02/24/2020 Essential hypertension 05/29/201602/23 Primary thrombocytopenia 01/15/2016 Chronic kidney disease 02/09/201502/23 Dysphagia, unspecified(787.20) 12/21/2014 12/21/2014 Esophageal reflux 12/21/2014 12/21/2014 Nausea alone 12/21/2014 12/21/2014 Hypertension 12/18/2010 05/29/2016 Sialoadenitis 09/04/2008 02/24/2020 Overview: 09/04/2008- [facility], Tank Sloan MD- left submandibular sialoadenitis secondary to stone formation. Follow-up examination, follo wing unspecified surgery 02/26/2006 02/08/2015 Carpal tunnel syndrome 10/17/200503/12 Other tenosynovitis of hand and wrist 10/17/2005 02/24/2020 Benign neoplasm of colon 09/30/2005 Internal hemorrhoids without mention of complication 09/30/2005 02/24/2020 HYPERTENSION NOS 05/30/2014 Sicca syndrome 11/29/2021 documented as of this encounter (statuses as of 08/16/2023) [facility] History of Past illness Narrative* Problem Noted Date Diagnosed Date Resolved Date Epigastric abdominal pain 12/28/2018 Bloating 12/28/2018 02/24/2020 Rheumatoid arthritis involving multiple sites 12/16/19 17 02/24/2020 Impacted cerumen of right ear 12/15/2016 02/24/2020 Right ear pain 12/15/2016 02/24/2020 Essential hypertension 05/29/201602/23 Primary thrombocytopenia 01/15/2016 Chronic kidney disease 02/09/201502/23 Dysphagia, unspecified(787.20) 12/21/2014 12/21/2014 Esophageal reflux 12/21/2014 12/21/2014 Nausea alone 12/21/2014 12/21/2014 Hypertension 12/18/2010 05/29/2016 Sialoadenitis 09/04/2008 02/24/2020 Overview: 09/04/2008- [facility], Tank Sloan MD- left submandibular sialoadenitis secondary to stone formation. Follow-up examination, follo wing unspecified surgery 02/26/2006 02/08/2015 Carpal tunnel syndrome 10/17/200503/12 Other tenosynovitis of hand and wrist 10/17/2005 02/24/2020 Benign neoplasm of colon 09/30/2005 Internal hemorrhoids without mention of complication 09/30/2005 02/24/2020 HYPERTENSION NOS 05/30/2014 Sicca syndrome 11/29/2021 documented as of this encounter (statuses as of 09/02/2023) [facility] History of Past illness Narrative* Problem Noted Date Diagnosed Date Resolved Date Epigastric abdominal pain 12/28/2018 Bloating 12/28/2018 02/24/2020 Rheumatoid arthritis involving multiple sites 12/16/19 17 02/24/2020 Impacted cerumen of right ear 12/15/2016 02/24/2020 Right ear pain 12/15/2016 02/24/2020 Essential hypertension 05/29/201602/23 Primary thrombocytopenia 01/15/2016 Chronic kidney disease 02/09/201502/23 Dysphagia, unspecified(787.20) 12/21/2014 12/21/2014 Esophageal reflux 12/21/2014 12/21/2014 Nausea alone 12/21/2014 12/21/2014 Hypertension 12/18/2010 05/29/2016 Sialoadenitis 09/04/2008 02/24/2020 Overview: 09/04/2008- [facility], Tank Sloan MD- left submandibular sialoadenitis secondary to stone formation. Follow-up examination, follo wing unspecified surgery 02/26/2006 02/08/2015 Carpal tunnel syndrome 10/17/200503/12 Other tenosynovitis of hand and wrist 10/17/2005 02/24/2020 Benign neoplasm of colon 09/30/2005 Internal hemorrhoids without mention of complication 09/30/2005 02/24/2020 HYPERTENSION NOS 05/30/2014 Sicca syndrome 11/29/2021 documented as of this encounter (statuses as of 10/02/2023) [facility] History of Past illness Narrative* Problem Noted Date Diagnosed Date Resolved Date Epigastric abdominal pain 12/28/2018 Bloating 12/28/2018 02/24/2020 Rheumatoid arthritis involving multiple sites 12/16/1902/24/2020 Impacted cerumen of right ear 12/15/2016 02/24/2020 Right ear pain 12/15/2016 02/24/2020 Essential hypertension 05/29/201602/23 Primary thrombocytopenia 01/15/2016 Chronic kidney disease 02/09/201502/23 Dysphagia, unspecified(787.20) 12/21/2014 12/21/2014 Esophageal reflux 12/21/2014 12/21/2014 Nausea alone 12/21/2014 12/21/2014 Hypertension 12/18/2010 05/29/2016 Sialoadenitis 09/04/2008 02/24/2020 Overview: 09/04/2008- [facility], Tank Sloan MD- left submandibular sialoadenitis secondary to stone formation. Follow-up examination, follo wing unspecified surgery 02/26/2006 02/08/2015 Carpal tunnel syndrome 10/17/200503/12 Other tenosynovitis of hand and wrist 10/17/2005 02/24/2020 Benign neoplasm of colon 09/30/2005 Internal hemorrhoids without mention of complication 09/30/2005 02/24/2020 HYPERTENSION NOS 05/30/2014 Sicca syndrome 11/29/2021 documented as of this encounter (statuses as of 11/17/2023) [facility] History of Past illness Narrative* Problem Noted Date Diagnosed Date Resolved Date Epigastric abdominal pain 12/28/2018 Bloating 12/28/2018 02/24/2020 Rheumatoid arthritis involving multiple sites 12/16/1902/24/2020 Impacted cerumen of right ear 12/15/2016 02/24/2020 Right ear pain 12/15/2016 02/24/2020 Essential hypertension 05/29/201602/23 Primary thrombocytopenia 01/15/2016 Chronic kidney disease 02/09/201502/23 Dysphagia, unspecified(787.20) 12/21/2014 12/21/2014 Esophageal reflux 12/21/2014 12/21/2014 Nausea alone 12/21/2014 12/21/2014 Hypertension 12/18/2010 05/29/2016 Sialoadenitis 09/04/2008 02/24/2020 Overview: 09/04/2008- [facility], Tank Sloan MD- left submandibular sialoadenitis secondary to stone formation. Follow-up examination, follo wing unspecified surgery 02/26/2006 02/08/2015 Carpal tunnel syndrome 10/17/200503/12 Other tenosynovitis of hand and wrist 10/17/2005 02/24/2020 Benign neoplasm of colon 09/30/2005 Internal hemorrhoids without mention of complication 09/30/2005 02/24/2020 HYPERTENSION NOS 05/30/2014 Sicca syndrome 11/29/2021 documented as of this encounter (statuses as of 11/19/2023) [facility] History of Past illness Narrative* Problem Noted Date Diagnosed Date Resolved Date Epigastric abdominal pain 12/28/2018 Bloating 12/28/2018 02/24/2020 Rheumatoid arthritis involving multiple sites 12/16/19 17 02/24/2020 Impacted cerumen of right ear 12/15/2016 02/24/2020 Right ear pain 12/15/2016 02/24/2020 Essential hypertension 05/29/201602/23 Primary thrombocytopenia 01/15/2016 Chronic kidney disease 02/09/201502/23 Dysphagia, unspecified(787.20) 12/21/2014 12/21/2014 Esophageal reflux 12/21/2014 12/21/2014 Nausea alone 12/21/2014 12/21/2014 Hypertension 12/18/2010 05/29/2016 Sialoadenitis 09/04/2008 02/24/2020 Overview: 09/04/2008- [facility], Tank Sloan MD- left submandibular sialoadenitis secondary to stone formation. Follow-up examination, follo wing unspecified surgery 02/26/2006 02/08/2015 Carpal tunnel syndrome 10/17/200503/12 Other tenosynovitis of hand and wrist 10/17/2005 02/24/2020 Benign neoplasm of colon 09/30/2005 Internal hemorrhoids without mention of complication 09/30/2005 02/24/2020 HYPERTENSION NOS 05/30/2014 Sicca syndrome 11/29/2021 documented as of this encounter (statuses as of 12/14/2023) [facility] History of Past illness Narrative* Problem Noted Date Diagnosed Date Resolved Date Epigastric abdominal pain 12/28/2018 Bloating 12/28/2018 02/24/2020 Rheumatoid arthritis involving multiple sites 12/16/19 17 02/24/2020 Impacted cerumen of right ear 12/15/2016 02/24/2020 Right ear pain 12/15/2016 02/24/2020 Essential hypertension 05/29/201602/23 Primary thrombocytopenia 01/15/2016 Chronic kidney disease 02/09/201502/23 Dysphagia, unspecified(787.20) 12/21/2014 12/21/2014 Esophageal reflux 12/21/2014 12/21/2014 Nausea alone 12/21/2014 12/21/2014 Hypertension 12/18/2010 05/29/2016 Sialoadenitis 09/04/2008 02/24/2020 Overview: 09/04/2008- [facility], Tank Sloan MD- left submandibular sialoadenitis secondary to stone formation. Follow-up examination, follo wing unspecified surgery 02/26/2006 02/08/2015 Carpal tunnel syndrome 10/17/200503/12 Other tenosynovitis of hand and wrist 10/17/2005 02/24/2020 Benign neoplasm of colon 09/30/2005 Internal hemorrhoids without mention of complication 09/30/2005 02/24/2020 HYPERTENSION NOS 05/30/2014 Sicca syndrome 11/29/2021 documented as of this encounter (statuses as of 12/14/2023) [facility] History of Past illness Narrative* Problem Noted Date Diagnosed Date Resolved Date Epigastric abdominal pain 12/28/2018 Bloating 12/28/2018 02/24/2020 Rheumatoid arthritis involving multiple sites 12/16/19 17 02/24/2020 Impacted cerumen of right ear 12/15/2016 02/24/2020 Right ear pain 12/15/2016 02/24/2020 Essential hypertension 05/29/201602/23 Primary thrombocytopenia 01/15/2016 Chronic kidney disease 02/09/201502/23 Dysphagia, unspecified(787.20) 12/21/2014 12/21/2014 Esophageal reflux 12/21/2014 12/21/2014 Nausea alone 12/21/2014 12/21/2014 Hypertension 12/18/2010 05/29/2016 Sialoadenitis 09/04/2008 02/24/2020 Overview: 09/04/2008- [facility], Tank Sloan MD- left submandibular sialoadenitis secondary to stone formation. Follow-up examination, follo wing unspecified surgery 02/26/2006 02/08/2015 Carpal tunnel syndrome 10/17/200503/12 Other tenosynovitis of hand and wrist 10/17/2005 02/24/2020 Benign neoplasm of colon 09/30/2005 Internal hemorrhoids without mention of complication 09/30/2005 02/24/2020 HYPERTENSION NOS 05/30/2014 Sicca syndrome 11/29/2021 documented as of this encounter (statuses as of 01/11/2024) [facility] History of Past illness Narrative* Problem Noted Date Diagnosed Date Resolved Date Epigastric abdominal pain 12/28/2018 Bloating 12/28/2018 02/24/2020 Rheumatoid arthritis involving multiple sites 12/16/1902/24/2020 Impacted cerumen of right ear 12/15/2016 02/24/2020 Right ear pain 12/15/2016 02/24/2020 Essential hypertension 05/29/201602/23 Primary thrombocytopenia 01/15/2016 Chronic kidney disease 02/09/201502/23 Dysphagia, unspecified(787.20) 12/21/2014 12/21/2014 Esophageal reflux 12/21/2014 12/21/2014 Nausea alone 12/21/2014 12/21/2014 Hypertension 12/18/2010 05/29/2016 Sialoadenitis 09/04/2008 02/24/2020 Overview: 09/04/2008- [facility] MD- left submandibular sialoadenitis secondary to stone formation. Follow-up examination, follo wing unspecified surgery 02/26/2006 02/08/2015 Carpal tunnel syndrome 10/17/200503/12 Other tenosynovitis of hand and wrist 10/17/2005 02/24/2020 Benign neoplasm of colon 09/30/2005 Internal hemorrhoids without mention of complication 09/30/2005 02/24/2020 HYPERTENSION NOS 05/30/2014 Sicca syndrome 11/29/2021 documented as of this encounter (statuses as of 01/12/2024) [facility] History of Past illness Narrative* Problem Noted Date Diagnosed Date Resolved Date Epigastric abdominal pain 12/28/2018 Bloating 12/28/2018 02/24/2020 Rheumatoid arthritis involving multiple sites 12/16/19 17 02/24/2020 Impacted cerumen of right ear 12/15/2016 02/24/2020 Right ear pain 12/15/2016 02/24/2020 Essential hypertension 05/29/201602/23 Primary thrombocytopenia 01/15/2016 Chronic kidney disease 02/09/201502/23 Dysphagia, unspecified(787.20) 12/21/2014 12/21/2014 Esophageal reflux 12/21/2014 12/21/2014 Nausea alone 12/21/2014 12/21/2014 Hypertension 12/18/2010 05/29/2016 Sialoadenitis 09/04/2008 02/24/2020 Overview: 09/04/2008- [facility] MD- left submandibular sialoadenitis secondary to stone formation. Follow-up examination, follo wing unspecified surgery 02/26/2006 02/08/2015 Carpal tunnel syndrome 10/17/200503/12 Other tenosynovitis of hand and wrist 10/17/2005 02/24/2020 Benign neoplasm of colon 09/30/2005 Internal hemorrhoids without mention of complication 09/30/2005 02/24/2020 HYPERTENSION NOS 05/30/2014 Sicca syndrome 11/29/2021 documented as of this encounter (statuses as of 01/14/2024) [facility] History of Past illness Narrative* Problem Noted Date Diagnosed Date Resolved Date Epigastric abdominal pain 12/28/2018 Bloating 12/28/2018 02/24/2020 Rheumatoid arthritis involving multiple sites 12/16/19 17 02/24/2020 Impacted cerumen of right ear 12/15/2016 02/24/2020 Right ear pain 12/15/2016 02/24/2020 Essential hypertension 05/29/201602/23 Primary thrombocytopenia 01/15/2016 Chronic kidney disease 02/09/201502/23 Dysphagia, unspecified(787.20) 12/21/2014 12/21/2014 Esophageal reflux 12/21/2014 12/21/2014 Nausea alone 12/21/2014 12/21/2014 Hypertension 12/18/2010 05/29/2016 Sialoadenitis 09/04/2008 02/24/2020 Overview: 09/04/2008- [facility], Tank Sloan MD- left submandibular sialoadenitis secondary to stone formation. Follow-up examination, follo wing unspecified surgery 02/26/2006 02/08/2015 Carpal tunnel syndrome 10/17/200503/12 Other tenosynovitis of hand and wrist 10/17/2005 02/24/2020 Benign neoplasm of colon 09/30/2005 Internal hemorrhoids without mention of complication 09/30/2005 02/24/2020 HYPERTENSION NOS 05/30/2014 Sicca syndrome 11/29/2021 documented as of this encounter (statuses as of 01/28/2024) [facility] Note Date/Time January 06, 2025 4:5 3am [facility] Medical Records Department [address] [place] [address] Emergency Department Summary 01/06/25 MR#: [id number] Acct: [id number] Name: MARY CRANE Rep #:[id number] : 1940 84 From: Fredy Freeman DO PCP: Dr. Atul Harvey DO Status:RE G ER Location: ED HPI History of Present Illness Chief Complaint: Stroke Alert Narrative Narrative: Patient is a 84-year-old female with past medical history atrial fibrillation onEliquis, chronic kidney disease stage III, rheumatoid arthritis, hypertension who presented to the emergency department via EMS prehospital as a stroke alert. Per EMS they are unsure when her last known well was. They noted that she was unable to move both of her arms and route and noted facial droop on the left side therefore they called a stroke alert prehospital. [facility] Medical History Atrial fibrillation Irregular heart beat Rheumatoid arthritis Chronic kidney disease, stage 3 Hypertension Home Medications ?Medication ?Instructions ?Recorded ?Last Taken ?Type allopurinol 100 mg tablet 100 mg PO DAILYCM gout 11/1210/11/24 History furosemide 40 mg tablet 20 mg PO DAILY diuretic 10/26 Unknown History cholecalciferol (vitamin D3) 1,250 1,250 mcg PO QWEEK supplement 10/12/24 10/10/24 History mcg (50,000 unit) capsule duloxetine 30 mg capsule,delayed 30 mg PO QHS mood 11/05 Unknown History release folic acid 1 mg tablet 2 mg PO DAILY supplement 11/05 Unknown History levothyroxine 25 mcg tablet 25 mcg PO DAILY disorder o f 10/12/24 Unknown History thyroid gland potassium chloride 10 mEq 10 meq PO BID supplement 11/05 Unknown History tablet,extended release(part/cryst) (Klor-Con M) rosuvastatin 10 mg tablet 10 mg PO DAILY cholesterol 0 10/12/24 Unknown History apremilast 30 mg tablet (Otezla) 30 mg PO BID psoriasi s 10/13/24 Unknown History famotidine 20 mg tablet (Acid 20 mg PO DAILY gerd 12/06 Unknown History Controller) mecobalamin (vitamin B12) 1,000 1,000 mcg PO .OD suppl ement 10/13/24 Unknown History mcg chewable tablet (B12 Active) vit C 250 mg-vit E 90 mg-zinc 40 1 tab PO DAILY supple ment 10/13/24 Unknown His tory mg-copper 1 [id number] capsule (PreserVision AREDS-2) acetaminophen 325 mg tablet 650 mg (2 x 325 mg) PO Q6H PRN PRN 10/18/24 Unknown Rx Pain 1-10 Or Fever>100.7 #0 tabs apixaban 5 mg tablet (Eliquis) 5 mg PO BID #60 tabs Unknown Rx losartan 50 mg tablet 50 mg PO DAILY #60 tabs 05/05 Unknown Rx metoprolol tartrate 100 mg tablet 100 mg PO BID #60 ta bs 10/18/24 Unknown Rx amiodarone 200 mg tablet 200 mg PO DAILY 01/06/25 Unk nown History Allergy/AdvReac Type Severity Reaction Status Date / Time amlodipine besylate (From Allergy Other Verified 01/06/25 03:42 Norvasc) bumetanide (From Bumex) Allergy Other Verified 01/06/25 03:42 cephalexin monohydrate (From Allergy Hives Verified 01/06/25 03:42 Keflex) colchicine Allergy Hives Verified 01/06/25 03:42 hydrochlorothiazide Allergy Hives Verified 01/06/25 03:42 hydrocortisone acetate (From Allergy Other Verified 01/06/25 03:42 Hydrocortone Acetate) minoxidil Allergy Other Verified 01/06/25 03:42 naproxen Allergy Rash Verified 01/06/25 03:42 ofloxacin (From Floxin) Allergy Shortness Verified 01/06/25 03:42 of breath Penicillins (PCN) Allergy Rash Verified 01/06/25 03:42 Sulfa (Sulfonamide Allergy Rash Verified 01/06/25 03:42 Antibiotics) Family History Son Diabetes CAD (coronary artery disease) Other H/O: hysterectomy Surgical History Hx of cholecystectomy Social History Smoking Status: Never smoker ROS ROS ED ROS Narrative Constitutional: Denies fevers, chills, headaches Eyes: Denies change in vision double vision blurry vision Cardiovascular: Denies chest pain Respiratory: Complains of shortness of breath Abdomen: Complains of abdominal pain : Denies urinary symptoms Neurological: Complains of weakness Musculoskeletal: Complains of back pain Skin: Denies any lesions or rashes EXAM Physical Exam Narrative Exam Narrative: General: Patient lying in bed did appear to be uncomfortable Head: Atraumatic, normocephalic Eyes: PERRL bilaterally, EOMI bilateral, no conjunctival injection noted Neck: Soft, supple, trachea midline Cardiovascular: Regular rate and rhythm Abdomen: Diffuse tenderness to palpation Extremities: +4/5 strength noted to bilateral lower extremities, radial pulse +2/4 in the bilateral upper extremities Neurological: Patient follow commands that she was at [facility] years 2024. NIH of 0 GCS 15 Skin: Warm, dry, intact Const Vital Signs: 01/06/25 03:29 01/06/25 04:05 01/06/25 04:15 Temperature 97.6 F L 97.6 F L Temperature Source Temporal Oral Pulse Rate 71 72 Respiratory Rate 24 H 28 H Blood Pressure 123/53 H 123/53 H Blood Pressure Mean 76 76 Blood Pressure Source Blood Pressure Position Blood Pressure Location Pulse Ox 85 94 Oxygen Delivery Method Nasal Cannula Nasal Cannula Nasal Cannula Oxygen Flow Rate (L/min) 2 2 01/06/25 04:37 01/06/25 04:39 01/06/25 04:41 Temperature 97.0 F L 97.5 F L 97.5 F L Temperature Source Oral Oral Oral Pulse Rate 65 65 67 Respiratory Rate 27 H 23 H 28 H Blood Pressure 134/75 H 113/58 L 113/56 L Blood Pressure Mean 94 76 75 Blood Pressure Source Monitor Monitor Monitor Blood Pressure Position Semi-Fowlers Semi-Fowlers Semi-Fowlers Blood Pressure Location Left Arm Left Arm Left Arm Pulse Ox 93 93 93 Oxygen Delivery Method Nasal Cannula Nasal Cannula Nasal Cannula Oxygen Flow Rate (L/min) 2 2 2 MDM MDM MDM Narrative Medical decision making narrative: Patient is a 84-year-old female who presented to the emergency department prehospital as a stroke alert. Once again the last known well when the patient arrived was unknown therefore the patient was placed in the room and family members were on their way to the hospital. Patient is on Eliquis. When family members arrived they noted that her last known well was 10 PM on 01/05/2025. They state that around 2 AM she called the family who is here in theemergency department and states that she was not feeling well and asked them to come over to help her. They note that she states that around midnight she was not feeling well given her symptoms they ultimately decided call EMS to have sera here for further evaluation management. According to them she was complaining of abdominal pain on the left side radiating to her back. I immediately went back to the computer and added on a CTA of the chest as well asCT abdomen pelvis on top of the stroke workup. On the differential diagnose includes Melamin to intracranial mass, large vesselocclusion, ischemic stroke, cardiac arrhythmia, electrolyte abnormality. Once workup is obtained reviewed she will be reevaluated. Patient did appear pale onEMS cot. Patient CBC reviewed and showed a white blood count of 13,000, hemoglobin is 5, originally this was reported as 1.8 per lab [facility] the official result in the computer back yet, patient was originally typed and screened for blood based on her color however her partner pressure did drop and she became hypotensive therefore she was given 2 units of trauma blood with more blood products ordered Kcentra was ordered. Patient's platelet count normal 170. Patient sodium was hyponatremic at 127, potassium 3.4, creatinine was normal at 1.13. Patient's anion gap of 19. Next patient went down to the CT scanner and Patient calcium low at 6.8 she wasordered 2 g of calcium gluconate, troponin was 15. Patient's EKG was reviewed and showed sinus rhythm with rate of 70 bpm with evidence of first-degree AV block with a MI interval of 236. Patient CT head and brain without contrast showed left-sided suprasellar cistern adjacent to the left parasellar carotid zachery mildly hyperdense and heterogeneous ovoid extra-axial appearing lesion measuring 1.3 x 1.3 x 0.9 cm likely considerations include giant aneurysm or meningioma. Patient CTA pending. No evidence of intracranial hemorrhage or large vessel territory acute infarct. Patient CTA head and neck showed no flow significant stenosis dissection vessel cutoff or contrast filling aneurysm was identified as above. Just beyond the origin of the right common carotid arteries calcific plaque formation and undulation of the right subclavian arterywith 7 mm infundibular widening of the area of the thyrocervical trunk. Patient's CT abdomen pelvis official read is pending however radiology did call me and states that she had active extravasation of bleeding from her spleen. Immediately upon receiving the call from radiology discussed with family and discussed transfer to [facility]. I called [facility] Critical transport team for the helicopter for transport. I spoke with ER physician Dr. Barone who accept patient for admission. Patient notified as well as family members as well. Patient had 2 large bore IV placed here in the emergency department as well blood products were placed on pressure bag. Lab Data Labs: Laboratory Results - last 24 hr 01/06/25 01/06/25 04:00 04:30 WBC 13.1 H RBC 1.66 L Hgb 5.0 L* Hct 15.8 L MCV 95.2 MCH 30.1 MCHC 31.6 L RDW Std Deviation 50.6 H RDW Coeff of Akin 14.7 H Plt Count 170 MPV 10.7 Immature Gran % (Auto) 2.800 H Neut % (Auto) 76.5 H Lymph % (Auto) 13.8 L Harding % (Auto) 6.3 Eos % (Auto) 0.3 Baso % (Auto) 0.3 Absolute Neuts (auto) 10.1 H Absolute Lymphs (auto) 1.81 Nucleated RBC % 0 PT 23.6 H INR 2.1 APTT 37.1 H Sodium 127 L Potassium 3.4 Chloride 97 L Carbon Dioxide 10.5 L Anion Gap 19 H BUN 12 Creatinine 1.13 Estim Creat Clear Calc 34.48 L Est GFR (MDRD) Non-Af 48 L BUN/Creatinine Ratio 10.7 Glucose 218 H Calcium 6.8 L Troponin T High Sens 15 H Crossmatch See Detail Radiography Diagnostic Testing: Clinical Impression(s) from Imaging Studies Brain CT 01/06/25 03:33 IMPRESSION: Left side of the suprasellar cistern adjacent to the left parasellar carotid is a mildly hyperdense and heterogeneous ovoid extra-axial appearing lesion measuring approximately 1.3 x 1.3 x 0.9 cm axial 18, coronal 36 and sagittal 37 with likely considerations including a giant aneurysm or meningioma among others and requires further workup. No intracranial hemorrhage or CT evidence of large vascular territory acute infarct. Left paranasal sinus disease as above. Results discussed by myself verbally by phone to Dr. Freeman at 4 a.m. 01/06/2025 Reading Location: [id number] Head/Neck CTA 01/06/25 03:34 IMPRESSION: No flow significant stenosis, dissection, vessel cut off or contrast filling aneurysm identified as above. Reading Location: [facility] Chest CTA 01/06/25 03:43 IMPRESSION: There is now a small to moderate posterior layering left pleural effusion possible hemothorax. Trace right pleural fluid. Subjacent partial passive collapse, atelectasis left lower lobe. Atelectasis at the lingula and right lower lobe. No pneumothorax. Images of the upper abdomen with large amount of hemoperitoneum greater on the left side with a crescentic high density along the peripheral aspect of the spleen and blush of contrast suggested posteriorly for example axial 58 concerning for active bleeding. Reading Location: [facility] Discharge Plan Triage Chief Complaint: Stroke Alert ED Provider: Fredy Freeman Dx/Rx/DC Orders Clinical Impression: Moderate laceration of spleen, Hemorrhage intraabdominal, Atrial fibrillation, Acute blood loss anemia Prescriptions: No Action furosemide 40 MG tablet 20 mg PO DAILY Patient Comments: water pill allopurinol 100 MG tablet 100 mg PO DAILYCM Patient Comments: gout potassium chloride [Klor-Con M10] 10 mEq tablet,ER particles/crystals 10 meq PO BID duloxetine 30 mg capsule,delayed release(DR/EC) 30 mg PO QHS folic acid 1 mg tablet 2 mg PO DAILY levothyroxine 25 mcg tablet 25 mcg PO DAILY cholecalciferol (vitamin D3) 1,250 mcg (50,000 unit) capsule 1,250 mcg PO QWEEK rosuvastatin 10 mg tablet 10 mg PO DAILY famotidine [Acid Controller] 20 mg tablet 20 mg PO DAILY PreserVision AREDS-2 250-90-40-1 mg capsule 1 tab PO DAILY mecobalamin (vitamin B12) [B12 Active] 1,000 mcg tablet,chewable 1,000 mcg PO .OD Otezla 30 mg tablet 30 mg PO BID losartan 50 mg Tablet 50 mg PO DAILY Qty: 60 0RF acetaminophen 325 mg Tablet 650 mg PO Q6H PRN PRN (Reason: Pain 1-10 Or Fever>100.7) Qty: 0 0RF metoprolol tartrate 100 mg Tablet 100 mg PO BID Qty: 60 0RF Eliquis 5 mg Tablet 5 mg PO BID Qty: 60 0RF amiodarone 200 mg Tablet 200 mg PO DAILY Primary Care Provider: Atul Harvey Referrals: Atul Harvey DO [Primary Care Provider] - Print Language: Polish Disposition Disposition: DC/Tx to Another Type of HCF What to do if you have Problems For any increased pain, shortness of breath, bleeding, nausea or vomiting, chestpain, or any unexpected problems, contact your Primary Care Provider. Call [facility] ([phone]) or report to the closest Emergency Room. Call 911 if necessary. 01/06/25 0456 <Electronically signed by Fredy Freeman DO> Cosigner Signature (if applicable): CC: Dr. Atul Harvey DO ~ Signed [facility] Work Phone: Evaluation note* Diagnosis Vitamin D deficiency Unspecified vitamin D deficiency documented in this encounter [facility] noteNo assessment information availableWC[facility] Work Phone: Evaluation [facility]* Diagnosis Hypertension, essential- Primary Unspecified essential hypertension Need for influenza vaccination Need for prophylactic vaccination and inoculation against influenza Screening for depression Encounter for screening mammogram for malignant neoplasm of breast Other screening mammogram Alkaline phosphatase elevation Other nonspecific abnormal serum enzyme levels Screening for colon cancer Special screening for malignant neoplasms, colon Vitamin D deficiency Unspecified vitamin D deficiency Dyslipidemia Other and unspecified hyperlipidemia IFG (impaired fasting glucose) Impaired fasting glucose Rheumatoid arthritis involving multiple sites with positive rheumatoid factor (HCC) Stage 3b chronic kidney disease (HCC) Vitamin B12 deficiency Other B-complex deficiencies Pulmonary hypertension (HCC) Other chronic pulmonary heart diseases [facility] Diagnosis Encounter for screening mammogram for malignant neoplasm of breast Other screening mammogram documented in this encounter [facility] note* Diagnosis Encounter for screening for malignant neoplasm of colon- Primary Special screening for malignant neoplasms, colon History of colonic polyps Personal history of colonic polyps documented in this encounter [facility] note* Diagnosis Abdominal cramping- Primary Abdominal pain, unspecified site Functional diarrhea Hypertension, essential Unspecified essential hypertension Alkaline phosphatase elevation Other nonspecific abnormal serum enzyme levels Vitamin D deficiency Unspecified vitamin D deficiency IFG (impaired fasting glucose) Impaired fasting glucose Dyslipidemia Other and unspecified hyperlipidemia Stage 3b chronic kidney disease (HCC) Vitamin B12 deficiency Other B-complex deficiencies Rheumatoid arthritis involving multiple sites with positive rheumatoid factor (HCC) [facility] Diagnosis History of colonic polyps- Primary Personal history of colonic polyps Tubular adenoma Benign neoplasm of unspecified site [facility] Diagnosis Alkaline phosphatase elevation- Primary Other nonspecific abnormal serum enzyme levels [facility] Diagnosis Vitamin D deficiency Unspecified vitamin D deficiency [facility] Diagnosis Hypertension, essential- Primary Unspecified essential hypertension Hypokalemia Hypopotassemia Vitamin D deficiency Unspecified vitamin D deficiency Alkaline phosphatase elevation Other nonspecific abnormal serum enzyme levels IFG (impaired fasting glucose) Impaired fasting glucose Dyslipidemia Other and unspecified hyperlipidemia Vitamin B12 deficiency Other B-complex deficiencies Stage 3b chronic kidney disease (HCC) Rheumatoid arthritis involving multiple sites with positive rheumatoid factor (HCC) Thoracic aortic ectasia (HCC) Thoracic aortic ectasia Pulmonary fibrosis, unspecified (HCC) Pulmonary hypertension (HCC) Other chronic pulmonary heart diseases [facility] Diagnosis Acute bronchitis, unspecified organism- Primary [facility] Diagnosis Hypertension, essential Unspecified essential hypertension [facility] Diagnosis Hypertension, essential- Primary Unspecified essential hypertension Chronic diastolic congestive heart failure (HCC) Chronic diastolic heart failure Pulmonary hypertension (HCC) Other chronic pulmonary heart diseases PVC (premature ventricular contraction) Other premature beats Thoracic aortic ectasia (HCC) Thoracic aortic ectasia Dyslipidemia Other and unspecified hyperlipidemia Palpitations [facility] Diagnosis Palpitations [facility] Diagnosis Hypertension, essential Unspecified essential hypertension [facility] Diagnosis Gastroesophageal reflux disease with esophagitis, unspecified whether hemorrhage- Primary Special screening for malignant neoplasms, colon Screening for colon cancer Special screening for malignant neoplasms, colon [facility] Diagnosis Alkaline phosphatase elevation Other nonspecific abnormal serum enzyme levels [facility] Diagnosis Hypertension, essential Unspecified essential hypertension Vitamin D deficiency Unspecified vitamin D deficiency Abdominal cramping Abdominal pain, unspecified site Functional diarrhea [facility] Diagnosis Hypertension, essential Unspecified essential hypertension [facility] Hypertension, essential Unspecified essential hypertension [facility] Diagnosis Vitamin B12 deficiency- Primary Other B-complex deficiencies Vitamin D deficiency Unspecified vitamin D deficiency Pre-diabetes Other abnormal glucose IFG (impaired fasting glucose) Impaired fasting glucose Dyslipidemia Other and unspecified hyperlipidemia [facility] Diagnosis IFG (impaired fasting glucose)- Primary Impaired fasting glucose Dermatitis Contact dermatitis and other eczema, due to unspecified cause Itching Unspecified pruritic disorder Wasp sting, accidental or unintentional, initial encounter Weight gain Abnormal weight gain Borderline abnormal thyroid function test Nonspecific abnormal results of thyroid function study Elevated AST (SGOT) Nonspecific elevation of levels of transaminase or lactic acid dehydrogenase (LDH) Rheumatoid arthritis involving multiple sites with positive rheumatoid factor (HCC) 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 Stage 3b chronic kidney disease (HCC) Dyslipidemia Other and unspecified hyperlipidemia [facility] Elevated LFTs- Primary Other abnormal blood chemistry Subclinical hypothyroidism Other specified acquired hypothyroidism Elevated LFTs Other abnormal blood chemistry [facility] Diagnosis Elevated LFTs Other abnormal blood chemistry [facility] Diagnosis Fatty liver- Primary Other chronic nonalcoholic liver disease [facility] Diagnosis Wasp sting, accidental or unintentional, initial encounter- Primary Cellulitis of left upper extremity Cellulitis and abscess of upper arm and forearm [facility] Diagnosis Wasp sting, accidental or unintentional, subsequent encounter- Primary Cellulitis of left upper extremity Cellulitis and abscess of upper arm and forearm [facility] Diagnosis Subclinical hypothyroidism Other specified acquired hypothyroidism [facility] Diagnosis Yeast dermatitis- Primary Candidiasis of skin and nails [facility] Diagnosis Fatty liver Other chronic nonalcoholic liver disease [facility]* Diagnosis Productive cough Cough [facility] Diagnosis Neck pain, bilateral Cervicalgia Chronic pain of both shoulders Pain in joint, shoulder region [facility] Diagnosis Chronic diastolic congestive heart failure (HCC)- Primary Chronic diastolic heart failure Nonrheumatic mitral valve regurgitation Thoracic aortic ectasia (HCC) Thoracic aortic ectasia Hypertension, essential Unspecified essential hypertension Dyslipidemia Other and unspecified hyperlipidemia Atrial arrhythmia Cardiac dysrhythmia, unspecified Pulmonary hypertension (HCC) Other chronic pulmonary heart diseases Palpitations [facility] Diagnosis Subclinical hypothyroidism Other specified acquired hypothyroidism [facility] Diagnosis Vitamin B12 deficiency- Primary Other B-complex deficiencies Vitamin D deficiency Unspecified vitamin D deficiency Dyslipidemia Other and unspecified hyperlipidemia Elevated TSH Nonspecific abnormal results of thyroid function study IFG (impaired fasting glucose) Impaired fasting glucose [facility] Diagnosis Left wrist pain- Primary Pain in joint, forearm Hypertension, essential Unspecified essential hypertension Hypokalemia Hypopotassemia Need for influenza vaccination Need for prophylactic vaccination and inoculation against influenza Dyslipidemia Other and unspecified hyperlipidemia Vitamin D deficiency Unspecified vitamin D deficiency Subclinical hypothyroidism Other specified acquired hypothyroidism Vitamin B12 deficiency Other B-complex deficiencies Fatty liver Other chronic nonalcoholic liver disease IFG (impaired fasting glucose) Impaired fasting glucose [facility]* Diagnosis SOB (shortness of breath)- Primary Shortness of breath Fever, unspecified fever cause [facility] Diagnosis Primary osteoarthritis of first carpometacarpal joint of left hand- Primary Primary localized osteoarthrosis, hand Left wrist pain Pain in joint, forearm [facility] Diagnosis New onset a-fib (HCC)- Primary Atrial fibrillation Encounter for immunization Need for other specified prophylactic vaccination against single bacterial disease RSV (acute bronchiolitis due to respiratory syncytial virus) Acute bronchiolitis due to respiratory syncytial virus (RSV) Generalized weakness Other malaise and fatigue Decreased appetite Anorexia [facility] Diagnosis Paroxysmal atrial fibrillation (HCC)- Primary Atrial fibrillation Hypertension, essential Unspecified essential hypertension Chronic diastolic congestive heart failure (HCC) Chronic diastolic heart failure Thoracic aortic ectasia (HCC) Thoracic aortic ectasia Nonrheumatic mitral valve regurgitation PVC (premature ventricular contraction) Other premature beats Pulmonary hypertension (HCC) Other chronic pulmonary heart diseases [facility] Diagnosis Rhinosinusitis- Primary Unspecified sinusitis (chronic) [facility] Diagnosis Subclinical hypothyroidism Other specified acquired hypothyroidism [facility] Diagnosis Spleen laceration into parenchyma, sequela- Primary Subclinical hypothyroidism Other specified acquired hypothyroidism Paroxysmal atrial fibrillation (HCC) Atrial fibrillation Hypokalemia Hypopotassemia Generalized weakness Other malaise and fatigue Hypertension, essential Unspecified essential hypertension Dyslipidemia Other and unspecified hyperlipidemia H/O splenectomy Other acquired absence of organ Iron deficiency anemia, unspecified iron deficiency anemia type [facility]* Diagnosis Paroxysmal atrial fibrillation (HCC) Atrial fibrillation [facility]* Diagnosis Abdominal cramping Abdominal pain, unspecified site Functional diarrhea Vitamin D deficiency Unspecified vitamin D deficiency [facility]* Diagnosis Paroxysmal atrial fibrillation (HCC)- Primary Atrial fibrillation Pulmonary hypertension (HCC) Other chronic pulmonary heart diseases Chronic diastolic congestive heart failure (HCC) Chronic diastolic heart failure Nonrheumatic mitral valve regurgitation Hypertension, essential Unspecified essential hypertension Orthostatic hypotension Thoracic aortic ectasia Mixed hyperlipidemia [facility] this [facility]* Diagnosis URI, acute- Primary Acute upper respiratory infections of unspecified site URI, acute Acute upper respiratory infections of unspecified site [facility] this [facility]* Diagnosis URI, acute- Primary Acute upper respiratory infections of unspecified site [facility] this [facility]* Diagnosis URI, acute Acute upper respiratory infections of unspecified site [facility]* Diagnosis Iron deficiency anemia, unspecified iron deficiency anemia type- Primary Gait disturbance Abnormality of gait Dyslipidemia Other and unspecified hyperlipidemia Subclinical hypothyroidism Other specified acquired hypothyroidism Vitamin D deficiency Unspecified vitamin D deficiency Hypertension, essential Unspecified essential hypertension H/O splenectomy Other acquired absence of organ IFG (impaired fasting glucose) Impaired fasting glucose Elevated LFTs Other abnormal blood chemistry documented in this encounter [facility] for referral (narrative)* Outpatient Procedure (Routine) - Authorized Specialty Diagnoses / Procedures Referred By Kirsty raza Referred To Contact [facility] Diagnoses Screening for colon cancer Procedures COLONOSCOPY SCREENING COLONOSCOPY FLX DX W/COLLJ SPEC WHEN PFRMD Atul Harvey, [address] [place] [address] [facility] [place] [address] [place] [address] Referral ID Status Reason Start Date Expiration Date Visits Requested Visits Authorized [id number] Authorized Auto-Generat ed Referral 07/08/2022 07/08/2023 1 1 * Diagnostic Procedure Only (Routine) - Authorized Specialty Diagnoses / Procedures Referred By Brittanyac t Referred To Contact [facility] Diagnoses Encounter for screening mammogram for malignant neoplasm of breast Procedures WILLI SCREENING SCREENING MAMMOGRAPHY BI 2-VIEW BREAST INC CAD Atul Harvey, DO [address] [place] [address] [facility] [address] [place] [address] Referral ID Status Reason Start Date Expiration Date Visits Requested Visits Authorized [id number] Authorized Auto-Generat ed Referral 07/08/2022 08/07/2023 1 1 [facility] for referral (narrative)* Diagnostic Procedure Only (Routine) - Closed Specialty Diagnoses / Procedures Referred By Kirsty t Referred To Contact [facility] Diagnoses Encounter for screening mammogram for malignant neoplasm of breast Procedures WILLI SCREENING SCREENING MAMMOGRAPHY BI 2-VIEW BREAST INC CAD Atul Harvey, DO [address] [place] [address] [facility] [address] [place] [id number] Referral ID Status Reason Start Date Expiration Date V isits Requested Visits Authorized [id number] Closed Auto-Generate d Referral 07/08/2022 08/07/2023 1 1 [facility] for referral (narrative)* Diagnostic Procedure Only (Routine) - Closed Specialty Diagnoses / Procedures Referred By Brittanyac t Referred To Contact [facility] Diagnoses Alkaline phosphatase elevation Procedures US ABD RT UPPER QUADRANT US ABDOMINAL REAL TIME W/IMAGE LIMITED Atul Harvey, DO [address] [place] [address] [facility] Referral ID Status Reason Start Date Expiration Date V isits Requested Visits Authorized [id number] Closed Auto-Generate d Referral 09/24/2022 10/24/2023 1 1 [facility] for referral (narrative)* Outpatient Procedure (Routine) - Authorized Specialty Diagnoses / Procedures Referred By Contac t Referred To [facility] Diagnoses Palpitations Procedures ECHO ECHO TTHRC R-T 2D W/WOM-MODE COMPL SPEC&COLR Rasheed Simms MD [address] [place] [id number] [facility] [place] [address] [place] [id number] Referral ID Status Reason Start Date Expiration Date Visits Requested Visits Authorized [id number] Authorized Auto-Generat ed Referral 04/13/2023 04/12/2024 1 1 [facility] for referral (narrative)* Outpatient Procedure (Routine) - Closed Specialty Diagnoses / Procedures Referred By Contac t Referred To Contact [facility] Diagnoses Screening for colon cancer Procedures COLONOSCOPY SCREENING COLONOSCOPY FLX DX W/COLLJ SPEC WHEN PFRMD Atul Harvey DO [address] [place] [address] [facility] [address] [address] Referral ID Status Reason Start Date Expiration Date V isits Requested Visits Authorized [id number] Closed Auto-Generate d Referral 07/08/2022 07/08/2023 1 1 [facility] for referral (narrative)* Diagnostic Procedure Only (Routine) - Closed Specialty Diagnoses / Procedures Referred By Contac t Referred To Contact [facility] Diagnoses Alkaline phosphatase elevation Procedures US ABD RT UPPER QUADRANT US ABDOMINAL REAL TIME W/IMAGE LIMITED Atul Harvey DO [address] [place] [address] [place] [address] Referral ID Status Reason Start Date Expiration Date V isits Requested Visits Authorized [id number] Closed Auto-Generate d Referral 09/24/2022 10/24/2023 1 1 [facility] for referral (narrative)* Diagnostic Procedure Only (Routine) - Closed Specialty Diagnoses / Procedures Referred By Contac t Referred To Contact [facility] Diagnoses Elevated LFTs Procedures US ABD RIGHT UPPER QUADRANT US ABDOMINAL REAL TIME W/IMAGE LIMITED Atul Harvey, DO [address] [place] [address] [place] [address] Referral ID Status Reason Start Date Expiration Date V isits Requested Visits Authorized [id number] Closed Auto-Generate d Referral 02/17/2024 03/18/2025 1 1 [facility] for referral (narrative)* Diagnostic Procedure Only (Routine) - Closed Specialty Diagnoses / Procedures Referred By Contac t Referred To Contact [facility] Diagnoses Elevated LFTs Procedures US ABD RIGHT UPPER QUADRANT US ABDOMINAL REAL TIME W/IMAGE LIMITED Atul Harvey, DO [address] [place] [address] [place] [address] Referral ID Status Reason Start Date Expiration Date V isits Requested Visits Authorized [id number] Closed Auto-Generate d Referral 02/17/2024 03/18/2025 1 1 [facility] for referral (narrative)* Diagnostic Procedure Only (Routine) - Authorized Specialty Diagnoses / Procedures Referred By Contac t Referred To Contact [facility] Diagnoses Fatty liver Procedures US ABD RIGHT UPPER QUADRANT US ABDOMINAL REAL TIME W/IMAGE LIMITED Atul Harvey, DO [address] [place] [address] [place] [address] Referral ID Status Reason Start Date Expiration Date Visits Requested Visits Authorized [id number] Authorized Auto-Generat ed Referral 02/23/2024 03/24/2025 1 1 [facility] for referral (narrative)* Diagnostic Procedure Only (Routine) - Closed Specialty Diagnoses / Procedures Referred By Contac t Referred To Contact [facility] Diagnoses Fatty liver Procedures US ABD RIGHT UPPER QUADRANT US ABDOMINAL REAL TIME W/IMAGE LIMITED Atul Harvey, DO [address] [place] [address] [place] [address] Referral ID Status Reason Start Date Expiration Date V isits Requested Visits Authorized [id number] Closed Auto-Generate d Referral 02/23/2024 03/24/2025 1 1 [facility] for referral (narrative)No reason for referral information [facility]WC[facility] Work Phone: Reason for visit Narrative* Diagnostic Procedure Only (Routine) - Closed Specialty Diagnoses / Procedures Referred By Kirsty t Referred To Contact [facility] IMAG[facility] Diagnoses Encounter for screening mammogram for malignant neoplasm of breast Procedures WILLI SCREENING SCREENING MAMMOGRAPHY BI 2-VIEW BREAST INC CAD Atul Harvey, DO [address] [place] [address] [facility] [address] [place] [address] Referral ID Status Reason Start Date Expiration Date V isits Requested Visits Authorized [id number] Closed Auto-Generate d Referral 07/08/2022 08/07/2023 1 1 [facility] for visit Narrative* Outpatient Procedure (Routine) - Closed Specialty Diagnoses / Procedures Referred By Contac t Referred To Contact [facility] Diagnoses Palpitations Procedures ECHO ECHO TTHRC R-T 2D W/WOM-MODE COMPL SPEC&COLR D Rasheed Barrios MD [address] [place] [id number] [facility] [place] [address] [place] [address] Referral ID Status Reason Start Date Expiration Date V isits Requested Visits Authorized [id number] Closed Auto-Generate d Referral 04/13/2023 04/12/2024 1 1 [facility] for visit Narrative* Outpatient Procedure (Routine) - Closed Specialty Diagnoses / Procedures Referred By Contac t Referred To Contact [facility] Diagnoses Screening for colon cancer Procedures COLONOSCOPY SCREENING COLONOSCOPY FLX DX W/COLLJ SPEC WHEN PFRMD Atul Harvey, DO [address] [place] [address] [facility] [place] [address] [place] [address] Referral ID Status Reason Start Date Expiration Date V isits Requested Visits Authorized [id number] Closed Auto-Generate d Referral 07/08/2022 07/08/2023 1 [facility] Diagnostic Procedure Only (Routine) - Closed Specialty Diagnoses / Procedures Referred By Contac t Referred To Contact XR IMAGING Diagnoses Left wrist pain Procedures XR WRIST GENERAL 3V PA/LAT/OBL LEFT RADEX WRIST COMPLETE MINIMUM 3 VIEWS Atul Harvey, DO [address] [place] [address] Xr Imaging [id number] Referral ID Status Reason Start Date Expiration Date V isits Requested Visits Authorized [id number] Closed Auto-Generate d Referral 08/22/2024 09/21/2025 1 1 [facility] Advance Directives No Advanced Directives Records Found Date Activated Date Inactivated Comments 01/10/2025 12:02 PM 01/17/2025 4:57 PM Question Answer Comments Full Code Order Discussed With: Surrogate Decisi on Maker Surrogate Decision Maker Name: Noemy ga- Daughter and Kasandra Crane- Daughter Surrogate Decision Maker Relationship: M ajority of Adult Children (wireless 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) Date Activated Date Inactivated Comments 01/06/2025 6:54 AM 01/10/2025 12:02 PM Question Answer Comments Full Code Order Discussed With: Surrogate Decisi on Maker Surrogate Decision Maker Name: Noemy UribeUna seo Documents on File Type Date Recorded Patient Security 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 Installer Expl anation Advance Directive(s) 07/28/2016 10:17 AM Advance Directive(s) 07/21/2016 12:53 PM Advance Directive(s) 06/30/2016 12:14 PM Advance Directive(s) 06/27/2016 8:33 AM Advance Directive Response Recorded Date/ Time Advance Directives No July 14, 2016 8:54pm Living Will Yes July 08, 2017 1:09pm Power of Parent Aide Yes June 1:09pm Advance Directive Response Recorded Date/ Time Advance Directives No July 14, 2016 7:54pm Living Will Yes July 08, 2017 12:09pm Power of Parent Aide Yes June 12:09pm Date Activated Date Inactivated Comments 01/06/2025 6:54 AM Question Answer Comments Full Code Order Discussed With: Surrogate [place] on Maker Surrogate Decision Maker Name: Noemy seo Advance Directive Response Recorded Date/ Time Living Will No October 12 6:28pm Do you have a Healthcare Pow er of Parent Aide? Yes October 12, 2024 6:28pm Name of Medical Power of Parent Aide Noemy See & Edmond Sudha October 12, 2024 6:28pm Living Will No January 06, 2025 4:13am Do you have a Healthcare Pow er of Parent Aide? No January 06, 2025 4:13am Advance Directives No July 14, 2016 8:54pm Date Activated Date Inactivated Comments 01/10/2025 12:02 PM Advance Directive Response Recorded Date/ Time Living Will No January 06, 2025 4:13am Do you have a Healthcare Power of Parent Aide? No January 06, 2025 4:13am Advance Directives No July 14, 2016 8:54pm Advance Directive Response Recorded Date/ Time Advance Directives No July 14, 2016 8:54pm Family History No Family History Records Found Relationship Condition Age at Onset Recorded Date/T sherya Unknown Family History?- Unknown July 1:30am Family History?Diabetes Unknown 2015 1:30am Relationship Condition Age at Onset Recorded Date/T shreya Unknown Family History?- Unknown July 12:30am Family History?Diabetes Unknown 2015 12:30am Relationship Condition Age at Onset Recorded Date/T shreya Not Specified History of hysterectomy Unknown son Diabetes mellitus Unknown Coronary artery disease Unknown Health Concerns Infection Onset Date Last Indicated Resolved Time COVID-19 Rule-Out 10/01/2021 09/30/2021 10/02/2021 12:01 AM EST Reason for Referral Specialty Diagnoses / Procedures Referred By Kirsty t Referred To Contact Diagnoses Abdominal cramping Functional diarrhea Atul Harvey, DO [address] [place] [address] Referral ID Status Reason Start Date Expiration Date V isits Requested Visits Authorized [id number] Pending Review 1 1 Specialty Diagnoses / Procedures Referred By Contac t Referred To Contact Orthopedics Diagnoses Left wrist pain Procedures CONSULT TO ORTHOPAEDICS OFFICE/OUTPATIENT [facility] 60 MINUTES Harvey, Atul Red, DO [address] [place] [address] Referral ID Status Reason Start Date Expiration Date Visits Requested Visits Authorized [id number] Authorized PCP Requested Referral 08/22/2025 1 1 Specialty Diagnoses / Procedures Referred By Contac t Referred To Contact XR IMAGING Diagnoses Left wrist pain Procedures XR WRIST GENERAL 3V PA/LAT/OBL LEFT RADEX WRIST COMPLETE MINIMUM 3 VIEWS Atul Harvey, DO [address] [place] [address] [place] [address] Referral ID Status Reason Start Date Expiration Date V isits Requested Visits Authorized [id number] Closed Auto-Generate d Referral 08/22/2024 09/21/2025 1 1 Chief Complaint and Reason for Visit Chief Complaint PAIN- COPY PCP Chief Complaint PAIN- COPY PCP Other half-way (current) drug therapy Chief Complaint Admit Date RSV, AFIB RVR October 12, 2024 4: 36pm RSV, AFIB RVR October 12, 2024 4: 44pm RSV, AFIB RVR October 13, 2024 8: 23am RSV, AFIB RVR October 14, 2024 8: 17am RSV, AFIB RVR October 15, 2024 8: 14am RSV, AFIB RVR October 16, 2024 7: 44am RSV, AFIB RVR October 16, 2024 9: 48am RSV, AFIB RVR October 17, 2024 7: 28am RSV, AFIB RVR October 17, 2024 8: 08am RSV, AFIB RVR October 18, 2024 8: 17am RSV, AFIB RVR October 18, 2024 8: 30am PAIN- COPY PCP November 21, 2024 10:48am NEURO CHANGES January 06, 2025 3:2 8am Reason for Visit Admit Date Hypertension October 12, 2024 4: 36pm Acute dyspnea October 12, 2024 4: 36pm Atrial fibrillation with RVR October 4:36pm RSV (respiratory syncytial virus infecti on) October 12, 2024 4:36pm RSV bronchiolitis October 12, 2024 4: 36pm Chief Complaint Admit Date PAIN- COPY PCP November 21, 2024 10:48am NEURO CHANGES January 06, 2025 3:2 8am LAB WORK January 18, 2025 5:00 am LAB WORK January 26, 2025 4:0 0am PAIN- COPY PCP February 13, 2025 2:21pm Chief Complaint Admit Date NEURO CHANGES January 06, 2025 3:2 8am Admission Exam January 17, 2025 6:01 pm LAB WORK January 18, 2025 5:00 am LAB WORK January 26, 2025 4:0 0am PAIN- COPY PCP February 13, 2025 2:21pm Chief Complaint Admit Date NEURO CHANGES January 06, 2025 3:2 8am Admission Exam January 17, 2025 6:01 pm LAB WORK January 18, 2025 5:00 am Follow up Exam January 18, 2025 5:31 pm LAB WORK January 26, 2025 4:0 0am PAIN- COPY PCP February 13, 2025 2:21pm Chief Complaint Admit Date NEURO CHANGES January 06, 2025 3:2 8am Admission Exam January 17, 2025 6:01 pm LAB WORK January 18, 2025 5:00 am Follow up Exam January 18, 2025 5:31 pm follow up January 19, 2025 3:2 7pm Admission January 24, 2025 1:5 5pm LAB WORK January 26, 2025 4:0 0am PAIN- COPY PCP February 13, 2025 2:21pm Chief Complaint Admit Date NEURO CHANGES January 06, 2025 3:2 8am Admission Exam January 17, 2025 6:01 pm LAB WORK January 18, 2025 5:00 am Follow up Exam January 18, 2025 5:31 pm follow up January 19, 2025 3:2 7pm LAB WORK January 26, 2025 4:0 0am PAIN- COPY PCP February 13, 2025 2:21pm Chief Complaint Admit Date Admission January 24, 2025 1:5 5pm LAB WORK January 26, 2025 4:0 0am PAIN- COPY PCP February 13, 2025 2:21pm PAIN- COPY PCP May 08, 2025 11:1 1am Summary Purpose Medications Administered Section Inactive Administered Medications - up to 3 most recent administrations Medication Order MAR Action Action Date Dose Rate Site fentaNYL 50 mcg/mL 25-100 mcg injection (SUBLIMAZE) 25-100 mcg, INTRAVENOUS, DIRECTED, Starting on Thu09/30/22 at 1000, Until Thu09/30/22 at 1359, DOSING DIRECTED BY PHYSICIAN FOR PROCEDURAL SEDATION ONLY, Intraprocedure Given by [facility] 09/30/2022 9:34 AM EST 25 mcg Given by [facility] 09/30/2022 9:32 AM EST 25 mcg lactated ringers iv infusion 30 mL/hr, INTRAVENOUS, CONTINUOUS, Starting on Thu09/30/22 at 0900, Until Thu09/30/22 at 1008, Preprocedure New Bag/Syringe/Heather le 09/30/2022 8:50 AM EST 30 mL/hr 30 mL/hr Arm, Right midazolam (PF) 1-5 mg injection (VERSED) 1-5 mg, INTRAVENOUS, DIRECTED, Starting on Thu09/30/22 at 1000, Until Thu09/30/22 at 1359, DOSING DIRECTED BY PHYSICIAN FOR PROCEDURAL SEDATION ONLY, Intraprocedure Given 09/30/2022 9:42 AM EST 1 mg Given by [facility] 09/30/2022 9:34 AM EST 2 mg Given by [facility] 09/30/2022 9:32 AM EST 2 mg Additional Source Comments Source Comments (unrecognize d section and content) In the event this informatio n is protected by the Federal Confidentiality of Alcohol and Drug Abuse Patient Records regulations: The Federal rules restrict any use of the information to criminally investigate or prosecute any alcohol or drug abuse patient.[facility] the event this information is protected by the Federal Confidentiality of Alcohol and Drug Abuse Patient Records regulations: The Federal rules restrict any use of the information to criminally investigate or prosecute any alcohol or drug abuse patient.[facility] Hospital[facility] the event this information is protected by the Federal Confidentiality of Alcohol and Drug Abuse Patient Records regulations: The Federal rules restrict any use of the information to criminally investigate or prosecute any alcohol or drug abuse patient.[facility] HospitalIn the event this information is protected by the Federal Confidentiality of Alcohol and Drug Abuse Patient Records regulations: The Federal rules restrict any use of the information to criminally investigate or prosecute any alcohol or drug abuse patient.[facility] HospitalIn the event this information is protected by the Federal Confidentiality of Alcohol and Drug Abuse Patient Records regulations: The Federal rules restrict any use of the information to criminally investigate or prosecute any alcohol or drug abuse patient.[facility] HospitalIn the event this information is protected by the Federal Confidentiality of Alcohol and Drug Abuse Patient Records regulations: The Federal rules restrict any use of the information to criminally investigate or prosecute any alcohol or drug abuse patient.[facility] the event this information is protected by the Federal Confidentiality of Alcohol and Drug Abuse Patient Records regulations: The Federal rules restrict any use of the information to criminally investigate or prosecute any alcohol or drug abuse patient.[facility] HospitalIn the event this information is protected by the Federal Confidentiality of Alcohol and Drug Abuse Patient Records regulations: The Federal rules restrict any use of the information to criminally investigate or prosecute any alcohol or drug abuse patient.[facility] HospitalIn the event this information is protected by the Federal Confidentiality of Alcohol and Drug Abuse Patient Records regulations: The Federal rules restrict any use of the information to criminally investigate or prosecute any alcohol or drug abuse patient.[facility] the event this information is protected by the Federal Confidentiality of Alcohol and Drug Abuse Patient Records regulations: The Federal rules restrict any use of the information to criminally investigate or prosecute any alcohol or drug abuse patient.[facility] HospitalIn the event this information is protected by the Federal Confidentiality of Alcohol and Drug Abuse Patient Records regulations: The Federal rules restrict any use of the information to criminally investigate or prosecute any alcohol or drug abuse patient.[facility] HospitalIn the event this information is protected by the Federal Confidentiality of Alcohol and Drug Abuse Patient Records regulations: The Federal rules restrict any use of the information to criminally investigate or prosecute any alcohol or drug abuse patient.[facility] HospitalIn the event this information is protected by the Federal Confidentiality of Alcohol and Drug Abuse Patient Records regulations: The Federal rules restrict any use of the information to criminally investigate or prosecute any alcohol or drug abuse patient.[facility] HospitalIn the event this information is protected by the Federal Confidentiality of Alcohol and Drug Abuse Patient Records regulations: The Federal rules restrict any use of the information to criminally investigate or prosecute any alcohol or drug abuse patient.[facility] HospitalIn the event this information is protected by the Federal Confidentiality of Alcohol and Drug Abuse Patient Records regulations: The Federal rules restrict any use of the information to criminally investigate or prosecute any alcohol or drug abuse patient.[facility] HospitalIn the event this information is protected by the Federal Confidentiality of Alcohol and Drug Abuse Patient Records regulations: The Federal rules restrict any use of the information to criminally investigate or prosecute any alcohol or drug abuse patient.[facility] HospitalIn the event this information is protected by the Federal Confidentiality of Alcohol and Drug Abuse Patient Records regulations: The Federal rules restrict any use of the information to criminally investigate or prosecute any alcohol or drug abuse patient.[facility] HospitalIn the event this information is protected by the Federal Confidentiality of Alcohol and Drug Abuse Patient Records regulations: The Federal rules restrict any use of the information to criminally investigate or prosecute any alcohol or drug abuse patient.[facility] HospitalIn the event this information is protected by the Federal Confidentiality of Alcohol and Drug Abuse Patient Records regulations: The Federal rules restrict any use of the information to criminally investigate or prosecute any alcohol or drug abuse patient.[facility] HospitalIn the event this information is protected by the Federal Confidentiality of Alcohol and Drug Abuse Patient Records regulations: The Federal rules restrict any use of the information to criminally investigate or prosecute any alcohol or drug abuse patient.[facility] HospitalIn the event this information is protected by the Federal Confidentiality of Alcohol and Drug Abuse Patient Records regulations: The Federal rules restrict any use of the information to criminally investigate or prosecute any alcohol or drug abuse patient.[facility] HospitalIn the event this information is protected by the Federal Confidentiality of Alcohol and Drug Abuse Patient Records regulations: The Federal rules restrict any use of the information to criminally investigate or prosecute any alcohol or drug abuse patient.[facility] HospitalIn the event this information is protected by the Federal Confidentiality of Alcohol and Drug Abuse Patient Records regulations: The Federal rules restrict any use of the information to criminally investigate or prosecute any alcohol or drug abuse patient.[facility] HospitalIn the event this information is protected by the Federal Confidentiality of Alcohol and Drug Abuse Patient Records regulations: The Federal rules restrict any use of the information to criminally investigate or prosecute any alcohol or drug abuse patient.[facility] HospitalIn the event this information is protected by the Federal Confidentiality of Alcohol and Drug Abuse Patient Records regulations: The Federal rules restrict any use of the information to criminally investigate or prosecute any alcohol or drug abuse patient.[facility] HospitalIn the event this information is protected by the Federal Confidentiality of Alcohol and Drug Abuse Patient Records regulations: The Federal rules restrict any use of the information to criminally investigate or prosecute any alcohol or drug abuse patient.[facility] HospitalIn the event this information is protected by the Federal Confidentiality of Alcohol and Drug Abuse Patient Records regulations: The Federal rules restrict any use of the information to criminally investigate or prosecute any alcohol or drug abuse patient.[facility] HospitalIn the event this information is protected by the Federal Confidentiality of Alcohol and Drug Abuse Patient Records regulations: The Federal rules restrict any use of the information to criminally investigate or prosecute any alcohol or drug abuse patient.[facility] HospitalIn the event this information is protected by the Federal Confidentiality of Alcohol and Drug Abuse Patient Records regulations: The Federal rules restrict any use of the information to criminally investigate or prosecute any alcohol or drug abuse patient.[facility] HospitalIn the event this information is protected by the Federal Confidentiality of Alcohol and Drug Abuse Patient Records regulations: The Federal rules restrict any use of the information to criminally investigate or prosecute any alcohol or drug abuse patient.[facility] HospitalIn the event this information is protected by the Federal Confidentiality of Alcohol and Drug Abuse Patient Records regulations: The Federal rules restrict any use of the information to criminally investigate or prosecute any alcohol or drug abuse patient.[facility] HospitalIn the event this information is protected by the Federal Confidentiality of Alcohol and Drug Abuse Patient Records regulations: The Federal rules restrict any use of the information to criminally investigate or prosecute any alcohol or drug abuse patient.[facility] HospitalIn the event this information is protected by the Federal Confidentiality of Alcohol and Drug Abuse Patient Records regulations: The Federal rules restrict any use of the information to criminally investigate or prosecute any alcohol or drug abuse patient.[facility] HospitalIn the event this information is protected by the Federal Confidentiality of Alcohol and Drug Abuse Patient Records regulations: The Federal rules restrict any use of the information to criminally investigate or prosecute any alcohol or drug abuse patient.[facility] HospitalIn the event this information is protected by the Federal Confidentiality of Alcohol and Drug Abuse Patient Records regulations: The Federal rules restrict any use of the information to criminally investigate or prosecute any alcohol or drug abuse patient.[facility] HospitalIn the event this information is protected by the Federal Confidentiality of Alcohol and Drug Abuse Patient Records regulations: The Federal rules restrict any use of the information to criminally investigate or prosecute any alcohol or drug abuse patient.[facility] HospitalIn the event this information is protected by the Federal Confidentiality of Alcohol and Drug Abuse Patient Records regulations: The Federal rules restrict any use of the information to criminally investigate or prosecute any alcohol or drug abuse patient.[facility] HospitalIn the event this information is protected by the Federal Confidentiality of Alcohol and Drug Abuse Patient Records regulations: The Federal rules restrict any use of the information to criminally investigate or prosecute any alcohol or drug abuse patient.[facility] HospitalIn the event this information is protected by the Federal Confidentiality of Alcohol and Drug Abuse Patient Records regulations: The Federal rules restrict any use of the information to criminally investigate or prosecute any alcohol or drug abuse patient.[facility] HospitalIn the event this information is protected by the Federal Confidentiality of Alcohol and Drug Abuse Patient Records regulations: The Federal rules restrict any use of the information to criminally investigate or prosecute any alcohol or drug abuse patient.[facility] HospitalIn the event this information is protected by the Federal Confidentiality of Alcohol and Drug Abuse Patient Records regulations: The Federal rules restrict any use of the information to criminally investigate or prosecute any alcohol or drug abuse patient.[facility] HospitalIn the event this information is protected by the Federal Confidentiality of Alcohol and Drug Abuse Patient Records regulations: The Federal rules restrict any use of the information to criminally investigate or prosecute any alcohol or drug abuse patient.[facility] HospitalIn the event this information is protected by the Federal Confidentiality of Alcohol and Drug Abuse Patient Records regulations: The Federal rules restrict any use of the information to criminally investigate or prosecute any alcohol or drug abuse patient.[facility] HospitalIn the event this information is protected by the Federal Confidentiality of Alcohol and Drug Abuse Patient Records regulations: The Federal rules restrict any use of the information to criminally investigate or prosecute any alcohol or drug abuse patient.[facility] HospitalIn the event this information is protected by the Federal Confidentiality of Alcohol and Drug Abuse Patient Records regulations: The Federal rules restrict any use of the information to criminally investigate or prosecute any alcohol or drug abuse patient.[facility] HospitalIn the event this information is protected by the Federal Confidentiality of Alcohol and Drug Abuse Patient Records regulations: The Federal rules restrict any use of the information to criminally investigate or prosecute any alcohol or drug abuse patient.[facility] HospitalIn the event this information is protected by the Federal Confidentiality of Alcohol and Drug Abuse Patient Records regulations: The Federal rules restrict any use of the information to criminally investigate or prosecute any alcohol or drug abuse patient.[facility] HospitalIn the event this information is protected by the Federal Confidentiality of Alcohol and Drug Abuse Patient Records regulations: The Federal rules restrict any use of the information to criminally investigate or prosecute any alcohol or drug abuse patient.[facility] HospitalIn the event this information is protected by the Federal Confidentiality of Alcohol and Drug Abuse Patient Records regulations: The Federal rules restrict any use of the information to criminally investigate or prosecute any alcohol or drug abuse patient.[facility] HospitalIn the event this information is protected by the Federal Confidentiality of Alcohol and Drug Abuse Patient Records regulations: The Federal rules restrict any use of the information to criminally investigate or prosecute any alcohol or drug abuse patient.[facility]In the event this information is protected by the Federal Confidentiality of Alcohol and Drug Abuse Patient Records regulations: The Federal rules restrict any use of the information to criminally investigate or prosecute any alcohol or drug abuse patient.[facility] HospitalIn the event this information is protected by the Federal Confidentiality of Alcohol and Drug Abuse Patient Records regulations: The Federal rules restrict any use of the information to criminally investigate or prosecute any alcohol or drug abuse patient.[facility] HospitalIn the event this information is protected by the Federal Confidentiality of Alcohol and Drug Abuse Patient Records regulations: The Federal rules restrict any use of the information to criminally investigate or prosecute any alcohol or drug abuse patient.[facility] HospitalIn the event this information is protected by the Federal Confidentiality of Alcohol and Drug Abuse Patient Records regulations: The Federal rules restrict any use of the information to criminally investigate or prosecute any alcohol or drug abuse patient.[facility] HospitalIn the event this information is protected by the Federal Confidentiality of Alcohol and Drug Abuse Patient Records regulations: The Federal rules restrict any use of the information to criminally investigate or prosecute any alcohol or drug abuse patient.[facility] HospitalIn the event this information is protected by the Federal Confidentiality of Alcohol and Drug Abuse Patient Records regulations: The Federal rules restrict any use of the information to criminally investigate or prosecute any alcohol or drug abuse patient.[facility] the event this information is protected by the Federal Confidentiality of Alcohol and Drug Abuse Patient Records regulations: The Federal rules restrict any use of the information to criminally investigate or prosecute any alcohol or drug abuse patient.[facility] HospitalIn the event this information is protected by the Federal Confidentiality of Alcohol and Drug Abuse Patient Records regulations: The Federal rules restrict any use of the information to criminally investigate or prosecute any alcohol or drug abuse patient.[facility] HospitalIn the event this information is protected by the Federal Confidentiality of Alcohol and Drug Abuse Patient Records regulations: The Federal rules restrict any use of the information to criminally investigate or prosecute any alcohol or drug abuse patient.[facility] the event this information is protected by the Federal Confidentiality of Alcohol and Drug Abuse Patient Records regulations: The Federal rules restrict any use of the information to criminally investigate or prosecute any alcohol or drug abuse patient.[facility] HospitalIn the event this information is protected by the Federal Confidentiality of Alcohol and Drug Abuse Patient Records regulations: The Federal rules restrict any use of the information to criminally investigate or prosecute any alcohol or drug abuse patient.[facility] HospitalIn the event this information is protected by the Federal Confidentiality of Alcohol and Drug Abuse Patient Records regulations: The Federal rules restrict any use of the information to criminally investigate or prosecute any alcohol or drug abuse patient.[facility] HospitalIn the event this information is protected by the Federal Confidentiality of Alcohol and Drug Abuse Patient Records regulations: The Federal rules restrict any use of the information to criminally investigate or prosecute any alcohol or drug abuse patient.[facility] HospitalIn the event this information is protected by the Federal Confidentiality of Alcohol and Drug Abuse Patient Records regulations: The Federal rules restrict any use of the information to criminally investigate or prosecute any alcohol or drug abuse patient.[facility] HospitalIn the event this information is protected by the Federal Confidentiality of Alcohol and Drug Abuse Patient Records regulations: The Federal rules restrict any use of the information to criminally investigate or prosecute any alcohol or drug abuse patient.[facility] HospitalIn the event this information is protected by the Federal Confidentiality of Alcohol and Drug Abuse Patient Records regulations: The Federal rules restrict any use of the information to criminally investigate or prosecute any alcohol or drug abuse patient.[facility] HospitalIn the event this information is protected by the Federal Confidentiality of Alcohol and Drug Abuse Patient Records regulations: The Federal rules restrict any use of the information to criminally investigate or prosecute any alcohol or drug abuse patient.[facility] HospitalIn the event this information is protected by the Federal Confidentiality of Alcohol and Drug Abuse Patient Records regulations: The Federal rules restrict any use of the information to criminally investigate or prosecute any alcohol or drug abuse patient.[facility] HospitalIn the event this information is protected by the Federal Confidentiality of Alcohol and Drug Abuse Patient Records regulations: The Federal rules restrict any use of the information to criminally investigate or prosecute any alcohol or drug abuse patient.[facility] HospitalIn the event this information is protected by the Federal Confidentiality of Alcohol and Drug Abuse Patient Records regulations: The Federal rules restrict any use of the information to criminally investigate or prosecute any alcohol or drug abuse patient.[facility] HospitalIn the event this information is protected by the Federal Confidentiality of Alcohol and Drug Abuse Patient Records regulations: The Federal rules restrict any use of the information to criminally investigate or prosecute any alcohol or drug abuse patient.[facility] HospitalIn the event this information is protected by the Federal Confidentiality of Alcohol and Drug Abuse Patient Records regulations: The Federal rules restrict any use of the information to criminally investigate or prosecute any alcohol or drug abuse patient.[facility] HospitalIn the event this information is protected by the Federal Confidentiality of Alcohol and Drug Abuse Patient Records regulations: The Federal rules restrict any use of the information to criminally investigate or prosecute any alcohol or drug abuse patient.[facility] HospitalIn the event this information is protected by the Federal Confidentiality of Alcohol and Drug Abuse Patient Records regulations: The Federal rules restrict any use of the information to criminally investigate or prosecute any alcohol or drug abuse patient.[facility] HospitalIn the event this information is protected by the Federal Confidentiality of Alcohol and Drug Abuse Patient Records regulations: The Federal rules restrict any use of the information to criminally investigate or prosecute any alcohol or drug abuse patient.[facility] HospitalIn the event this information is protected by the Federal Confidentiality of Alcohol and Drug Abuse Patient Records regulations: The Federal rules restrict any use of the information to criminally investigate or prosecute any alcohol or drug abuse patient.[facility] HospitalIn the event this information is protected by the Federal Confidentiality of Alcohol and Drug Abuse Patient Records regulations: The Federal rules restrict any use of the information to criminally investigate or prosecute any alcohol or drug abuse patient.[facility] HospitalIn the event this information is protected by the Federal Confidentiality of Alcohol and Drug Abuse Patient Records regulations: The Federal rules restrict any use of the information to criminally investigate or prosecute any alcohol or drug abuse patient.[facility] HospitalIn the event this information is protected by the Federal Confidentiality of Alcohol and Drug Abuse Patient Records regulations: The Federal rules restrict any use of the information to criminally investigate or prosecute any alcohol or drug abuse patient.[facility] HospitalIn the event this information is protected by the Federal Confidentiality of Alcohol and Drug Abuse Patient Records regulations: The Federal rules restrict any use of the information to criminally investigate or prosecute any alcohol or drug abuse patient.[facility] HospitalIn the event this information is protected by the Federal Confidentiality of Alcohol and Drug Abuse Patient Records regulations: The Federal rules restrict any use of the information to criminally investigate or prosecute any alcohol or drug abuse patient.[facility] HospitalIn the event this information is protected by the Federal Confidentiality of Alcohol and Drug Abuse Patient Records regulations: The Federal rules restrict any use of the information to criminally investigate or prosecute any alcohol or drug abuse patient.[facility] HospitalIn the event this information is protected by the Federal Confidentiality of Alcohol and Drug Abuse Patient Records regulations: The Federal rules restrict any use of the information to criminally investigate or prosecute any alcohol or drug abuse patient.[facility] HospitalIn the event this information is protected by the Federal Confidentiality of Alcohol and Drug Abuse Patient Records regulations: The Federal rules restrict any use of the information to criminally investigate or prosecute any alcohol or drug abuse patient.[facility] HospitalIn the event this information is protected by the Federal Confidentiality of Alcohol and Drug Abuse Patient Records regulations: The Federal rules restrict any use of the information to criminally investigate or prosecute any alcohol or drug abuse patient.[facility] HospitalIn the event this information is protected by the Federal Confidentiality of Alcohol and Drug Abuse Patient Records regulations: The Federal rules restrict any use of the information to criminally investigate or prosecute any alcohol or drug abuse patient.[facility] HospitalIn the event this information is protected by the Federal Confidentiality of Alcohol and Drug Abuse Patient Records regulations: The Federal rules restrict any use of the information to criminally investigate or prosecute any alcohol or drug abuse patient.[facility] HospitalIn the event this information is protected by the Federal Confidentiality of Alcohol and Drug Abuse Patient Records regulations: The Federal rules restrict any use of the information to criminally investigate or prosecute any alcohol or drug abuse patient.[facility] HospitalIn the event this information is protected by the Federal Confidentiality of Alcohol and Drug Abuse Patient Records regulations: The Federal rules restrict any use of the information to criminally investigate or prosecute any alcohol or drug abuse patient.[facility] HospitalIn the event this information is protected by the Federal Confidentiality of Alcohol and Drug Abuse Patient Records regulations: The Federal rules restrict any use of the information to criminally investigate or prosecute any alcohol or drug abuse patient.[facility] HospitalIn the event this information is protected by the Federal Confidentiality of Alcohol and Drug Abuse Patient Records regulations: The Federal rules restrict any use of the information to criminally investigate or prosecute any alcohol or drug abuse patient.[facility] HospitalIn the event this information is protected by the Federal Confidentiality of Alcohol and Drug Abuse Patient Records regulations: The Federal rules restrict any use of the information to criminally investigate or prosecute any alcohol or drug abuse patient.[facility] HospitalIn the event this information is protected by the Federal Confidentiality of Alcohol and Drug Abuse Patient Records regulations: The Federal rules restrict any use of the information to criminally investigate or prosecute any alcohol or drug abuse patient.[facility] HospitalIn the event this information is protected by the Federal Confidentiality of Alcohol and Drug Abuse Patient Records regulations: The Federal rules restrict any use of the information to criminally investigate or prosecute any alcohol or drug abuse patient.[facility] HospitalIn the event this information is protected by the Federal Confidentiality of Alcohol and Drug Abuse Patient Records regulations: The Federal rules restrict any use of the information to criminally investigate or prosecute any alcohol or drug abuse patient.[facility] HospitalIn the event this information is protected by the Federal Confidentiality of Alcohol and Drug Abuse Patient Records regulations: The Federal rules restrict any use of the information to criminally investigate or prosecute any alcohol or drug abuse patient.[facility] HospitalIn the event this information is protected by the Federal Confidentiality of Alcohol and Drug Abuse Patient Records regulations: The Federal rules restrict any use of the information to criminally investigate or prosecute any alcohol or drug abuse patient.[facility] HospitalIn the event this information is protected by the Federal Confidentiality of Alcohol and Drug Abuse Patient Records regulations: The Federal rules restrict any use of the information to criminally investigate or prosecute any alcohol or drug abuse patient.[facility] HospitalIn the event this information is protected by the Federal Confidentiality of Alcohol and Drug Abuse Patient Records regulations: The Federal rules restrict any use of the information to criminally investigate or prosecute any alcohol or drug abuse patient.[facility] HospitalIn the event this information is protected by the Federal Confidentiality of Alcohol and Drug Abuse Patient Records regulations: The Federal rules restrict any use of the information to criminally investigate or prosecute any alcohol or drug abuse patient.[facility] HospitalIn the event this information is protected by the Federal Confidentiality of Alcohol and Drug Abuse Patient Records regulations: The Federal rules restrict any use of the information to criminally investigate or prosecute any alcohol or drug abuse patient.[facility] HospitalIn the event this information is protected by the Federal Confidentiality of Alcohol and Drug Abuse Patient Records regulations: The Federal rules restrict any use of the information to criminally investigate or prosecute any alcohol or drug abuse patient.[facility] HospitalIn the event this information is protected by the Federal Confidentiality of Alcohol and Drug Abuse Patient Records regulations: The Federal rules restrict any use of the information to criminally investigate or prosecute any alcohol or drug abuse patient.[facility] HospitalIn the event this information is protected by the Federal Confidentiality of Alcohol and Drug Abuse Patient Records regulations: The Federal rules restrict any use of the information to criminally investigate or prosecute any alcohol or drug abuse patient.[facility] HospitalIn the event this information is protected by the Federal Confidentiality of Alcohol and Drug Abuse Patient Records regulations: The Federal rules restrict any use of the information to criminally investigate or prosecute any alcohol or drug abuse patient.[facility] HospitalIn the event this information is protected by the Federal Confidentiality of Alcohol and Drug Abuse Patient Records regulations: The Federal rules restrict any use of the information to criminally investigate or prosecute any alcohol or drug abuse patient.[facility] the event this information is protected by the Federal Confidentiality of Alcohol and Drug Abuse Patient Records regulations: The Federal rules restrict any use of the information to criminally investigate or prosecute any alcohol or drug abuse patient.[facility] HospitalIn the event this information is protected by the Federal Confidentiality of Alcohol and Drug Abuse Patient Records regulations: The Federal rules restrict any use of the information to criminally investigate or prosecute any alcohol or drug abuse patient.[facility] HospitalIn the event this information is protected by the Federal Confidentiality of Alcohol and Drug Abuse Patient Records regulations: The Federal rules restrict any use of the information to criminally investigate or prosecute any alcohol or drug abuse patient.[facility]In the event this information is protected by the Federal Confidentiality of Alcohol and Drug Abuse Patient Records regulations: The Federal rules restrict any use of the information to criminally investigate or prosecute any alcohol or drug abuse patient.[facility] HospitalIn the event this information is protected by the Federal Confidentiality of Alcohol and Drug Abuse Patient Records regulations: The Federal rules restrict any use of the information to criminally investigate or prosecute any alcohol or drug abuse patient.[facility] HospitalIn the event this information is protected by the Federal Confidentiality of Alcohol and Drug Abuse Patient Records regulations: The Federal rules restrict any use of the information to criminally investigate or prosecute any alcohol or drug abuse patient.[facility] HospitalIn the event this information is protected by the Federal Confidentiality of Alcohol and Drug Abuse Patient Records regulations: The Federal rules restrict any use of the information to criminally investigate or prosecute any alcohol or drug abuse patient.[facility] HospitalIn the event this information is protected by the Federal Confidentiality of Alcohol and Drug Abuse Patient Records regulations: The Federal rules restrict any use of the information to criminally investigate or prosecute any alcohol or drug abuse patient.[facility] HospitalIn the event this information is protected by the Federal Confidentiality of Alcohol and Drug Abuse Patient Records regulations: The Federal rules restrict any use of the information to criminally investigate or prosecute any alcohol or drug abuse patient.[facility] HospitalIn the event this information is protected by the Federal Confidentiality of Alcohol and Drug Abuse Patient Records regulations: The Federal rules restrict any use of the information to criminally investigate or prosecute any alcohol or drug abuse patient.[facility] HospitalIn the event this information is protected by the Federal Confidentiality of Alcohol and Drug Abuse Patient Records regulations: The Federal rules restrict any use of the information to criminally investigate or prosecute any alcohol or drug abuse patient.[facility] HospitalIn the event this information is protected by the Federal Confidentiality of Alcohol and Drug Abuse Patient Records regulations: The Federal rules restrict any use of the information to criminally investigate or prosecute any alcohol or drug abuse patient.[facility] HospitalIn the event this information is protected by the Federal Confidentiality of Alcohol and Drug Abuse Patient Records regulations: The Federal rules restrict any use of the information to criminally investigate or prosecute any alcohol or drug abuse patient.[facility] HospitalIn the event this information is protected by the Federal Confidentiality of Alcohol and Drug Abuse Patient Records regulations: The Federal rules restrict any use of the information to criminally investigate or prosecute any alcohol or drug abuse patient.[facility] HospitalIn the event this information is protected by the Federal Confidentiality of Alcohol and Drug Abuse Patient Records regulations: The Federal rules restrict any use of the information to criminally investigate or prosecute any alcohol or drug abuse patient.[facility]In the event this information is protected by the Federal Confidentiality of Alcohol and Drug Abuse Patient Records regulations: The Federal rules restrict any use of the information to criminally investigate or prosecute any alcohol or drug abuse patient.[facility]In the event this information is protected by the Federal Confidentiality of Alcohol and Drug Abuse Patient Records regulations: The Federal rules restrict any use of the information to criminally investigate or prosecute any alcohol or drug abuse patient.[facility] HospitalIn the event this information is protected by the Federal Confidentiality of Alcohol and Drug Abuse Patient Records regulations: The Federal rules restrict any use of the information to criminally investigate or prosecute any alcohol or drug abuse patient.[facility] HospitalIn the event this information is protected by the Federal Confidentiality of Alcohol and Drug Abuse Patient Records regulations: The Federal rules restrict any use of the information to criminally investigate or prosecute any alcohol or drug abuse patient.[facility] HospitalIn the event this information is protected by the Federal Confidentiality of Alcohol and Drug Abuse Patient Records regulations: The Federal rules restrict any use of the information to criminally investigate or prosecute any alcohol or drug abuse patient.[facility] HospitalIn the event this information is protected by the Federal Confidentiality of Alcohol and Drug Abuse Patient Records regulations: The Federal rules restrict any use of the information to criminally investigate or prosecute any alcohol or drug abuse patient.[facility] HospitalIn the event this information is protected by the Federal Confidentiality of Alcohol and Drug Abuse Patient Records regulations: The Federal rules restrict any use of the information to criminally investigate or prosecute any alcohol or drug abuse patient.[facility]In the event this information is protected by the Federal Confidentiality of Alcohol and Drug Abuse Patient Records regulations: The Federal rules restrict any use of the information to criminally investigate or prosecute any alcohol or drug abuse patient.[facility] HospitalIn the event this information is protected by the Federal Confidentiality of Alcohol and Drug Abuse Patient Records regulations: The Federal rules restrict any use of the information to criminally investigate or prosecute any alcohol or drug abuse patient.[facility] HospitalIn the event this information is protected by the Federal Confidentiality of Alcohol and Drug Abuse Patient Records regulations: The Federal rules restrict any use of the information to criminally investigate or prosecute any alcohol or drug abuse patient.[facility] HospitalIn the event this information is protected by the Federal Confidentiality of Alcohol and Drug Abuse Patient Records regulations: The Federal rules restrict any use of the information to criminally investigate or prosecute any alcohol or drug abuse patient.[facility] HospitalIn the event this information is protected by the Federal Confidentiality of Alcohol and Drug Abuse Patient Records regulations: The Federal rules restrict any use of the information to criminally investigate or prosecute any alcohol or drug abuse patient.[facility] HospitalIn the event this information is protected by the Federal Confidentiality of Alcohol and Drug Abuse Patient Records regulations: The Federal rules restrict any use of the information to criminally investigate or prosecute any alcohol or drug abuse patient.[facility] HospitalIn the event this information is protected by the Federal Confidentiality of Alcohol and Drug Abuse Patient Records regulations: The Federal rules restrict any use of the information to criminally investigate or prosecute any alcohol or drug abuse patient.[facility] HospitalIn the event this information is protected by the Federal Confidentiality of Alcohol and Drug Abuse Patient Records regulations: The Federal rules restrict any use of the information to criminally investigate or prosecute any alcohol or drug abuse patient.[facility] Reason for Visit (unrecogniz ed section and content) Reason Onset Date Comments Refill Request 01/16/2022 Reason Onset Date Comments Community Monitoring Outreach 02/06/2022 In sight PCC Enrollement Outreach (4th attempt) Reason Onset Date Comments community monitoring outreach 03/06/2022 te lephonic outreach Reason Onset Date Comments Refill Request 03/11/2022 Reason Onset Date Comments Patient Update 09/27/2021 Reason Onset Date Comments community monitoring outreach 03/20/2022 te lephonic outreach Reason Comments Results Reason Onset Date Comments Refill Request 04/02/2022 Reason Comments Medication Problem Reason Onset Date Comments community monitoring outreach 04/10/2022 te lephonic outreach Reason Onset Date Comments community monitoring outreach 04/25/2022 cd m telephonic outreach Reason Comments Refill Request Reason Onset Date Comments community monitoring outreach 06/04/2022 Cd m telephonic outreach Reason Onset Date Comments Refill Request 06/09/2022 Reason Onset Date Comments community monitoring outreach 07/04/2022 Cd m telephonic outreach Reason Onset Date Comments F/U 3 Month Immunizations 07/08/2022 Flu vaccination Reason Comments Patient Request Reason Onset Date Comments community monitoring outreach 07/31/2022 Cd m telephonic outreach Reason Comments Consult Reason Onset Date Comments community monitoring outreach 08/22/2022 Cd m telephonic outreach Reason Onset Date Comments community monitoring outreach 08/27/2022 Cd m telephonic outreach Reason Comments Follow Up Reason Onset Date Comments community monitoring outreach 09/22/2022 Cd m telephonic outreach Reason Comments Follow Up COLONOSCOPY Reason Onset Date Comments community monitoring outreach 10/15/2022 Cd m telephonic outreach Reason Comments Insurance Authorization Reason Onset Date Comments community monitoring outreach 11/05/2022 Cd m telephonic outreach Reason Onset Date Comments community monitoring outreach 11/28/2022 Cd m telephonic outreach Reason Comments Results Reason Onset Date Comments community monitoring outreach 12/22/2022 Cd m telephonic outreach Reason Onset Date Comments Refill Request 12/29/2022 Reason Onset Date Comments Refill Request 01/05/2023 Reason Comments 6 Month Exam Reason Onset Date Comments community monitoring outreach 03/16/2023 Mo nthly cdm call Reason Comments Cough Reason Comments Acute Visit cought, chest conges tion and sneezing Reason Onset Date Comments Refill Request 02/23/2023 Reason Onset Date Comments community monitoring outreach 05/18/2023 Mo nthly cdm call Reason Onset Date Comments community monitoring outreach 06/12/2023 Mo nthly cdm call Reason Comments Patient Question Reason Comments Patient Update Reason Onset Date Comments community monitoring outreach 07/13/2023 Mo nthly cdm call Reason Onset Date Comments community monitoring outreach 08/05/2023 -c dm review Reason Comments Radiology US Specialty Diagnoses / Procedures Referred By Contac t Referred To Contact US IMAGING Diagnoses Alkaline phosphatase elevation Procedures US ABD RT UPPER QUADRANT US ABDOMINAL REAL TIME W/IMAGE LIMITED Atul Harvey L, DO [address] [place] [address] [place] [address] Referral ID Status Reason Start Date Expiration Date V isits Requested Visits Authorized [id number] Closed Auto-Generate d Referral 09/24/2022 10/24/2023 1 1 Reason Onset Date Comments community monitoring outreach 09/02/2023 Mo nthly cdm call Reason Onset Date Comments community monitoring outreach 09/30/2023 Mo nthly cdm call Reason Onset Date Comments community monitoring [facility] 11/16/2023 M onthly cdm call Reason Onset Date Comments Refill Request 11/18/2023 Reason Onset Date Comments community monitoring outreach 12/14/2023 Mo nthly cdm call Reason Onset Date Comments Refill Request 12/14/2023 Reason Onset Date Comments community monitoring outreach 01/11/2024 Mo nthly cdm call Reason Onset Date Comments Refill Request 01/14/2024 Specialty Diagnoses / Procedures Referred By Contac t Referred To Contact US IMAGING Diagnoses Elevated LFTs Procedures US ABD RIGHT UPPER QUADRANT US ABDOMINAL REAL TIME W/IMAGE LIMITED Atul Harvey L, DO [address] [place] [address] [place] [address] Referral ID Status Reason Start Date Expiration Date V isits Requested Visits Authorized [id number] Closed Auto-Generate d Referral 02/17/2024 03/18/2025 1 1 Reason Onset Date Comments Refill Request 03/03/2024 Reason Onset Date Comments community monitoring outreach 03/02/2024 Mo nthly cdm call Reason Onset Date Comments Refill Request 03/11/2024 Reason Comments wasp sting Reason Comments Insect Bite Wasp sting yesterday left arm swollen , painful and itchy. Reason Comments Cellulitis Left arm Reason Onset Date Comments community monitoring outreach 04/06/2024 Mo nthly cdm call Reason Onset Date Comments community monitoring outreach 05/02/2024 Mo nthly cdm call Reason Onset Date Comments Refill Request 05/10/2024 Reason Comments Rash Under denton breast Specialty Diagnoses / Procedures Referred By Contac t Referred To Contact US IMAGING Diagnoses Fatty liver Procedures US ABD RIGHT UPPER QUADRANT US ABDOMINAL REAL TIME W/IMAGE LIMITED Atul Harvey, DO [address] [place] [address] Us Imaging [facility] Referral ID Status Reason Start Date Expiration Date V isits Requested Visits Authorized [id number] Closed Auto-Generate d Referral 02/23/2024 03/24/2025 1 1 Reason Onset Date Comments community monitoring outreach 05/30/2024 Mo nthly cdm call Reason Onset Date Comments community monitoring outreach 06/27/2024 Mo nthly cdm call Reason Onset Date Comments community monitoring outreach 07/21/2024 Mo nthly cdm call Reason Comments Follow Up Reason Comments Med Change Request Reason Comments Lab Orders Reason Onset Date Comments 6 Month Exam Immunizations 08/22/2024 Flu vaccination Reason Onset Date Comments community monitoring outreach 09/16/2024 Mo nthly cdm call Reason Comments Medication Question Reason Comments Chest Congestion cough, sob x 3 days Reason Comments New Pain Specialty Diagnoses / Procedures Referred By Contac t Referred To Contact Orthopedics Diagnoses Left wrist pain Procedures CONSULT TO ORTHOPAEDICS OFFICE/OUTPATIENT NEW HIGH MDM 60 MINUTES Atul Harvey, DO [address] [place] [address] Referral ID Status Reason Start Date Expiration Date V isits Requested Visits Authorized [id number] Closed PCP Requested Referral 08/22/2024 08/22/2025 1 1 Reason Onset Date Comments Refill Request 10/20/2024 Reason Onset Date Comments Transition Of Care 10/24/2024 [facility] Reason Comments Hospital Follow Up [facility] RSV & afib, disc harged 10/18 Reason Comments Patient Update Patient Question Reason Comments Follow Up was recently at [facility] for RSV, needs med refills, new dx of a fib Reason Onset Date Comments Transition Of Care 11/07/2024 INDERJIT Camacho [facility], Follow-up Day 20 Reason Comments Pain, Sinus Pressure and pain in upper cheeks, headache, runny nose, chest congestion x 3 days Reason Comments Patient fall Reason Onset Date Comments Refill Request 12/12/2024 Reason Comments Critical Care Transport Reason Comments Home Health Call Reason Comments Patient Update Appointment Reason Comments Follow HH Orders Reason Comments Medication Problem Patient Question Reason Onset Date Comments Refill Request 02/13/2025 Reason Comments Patient Update Home Health Point of Care Results Reason Comments Appointment Patient Update Reason Comments Cough sinus congestion Headache Reason Comments URI Reason Onset Date Comments Allied Health Visit 05/09/2025 Medication a dherence outreach Reason Comments F/U 3 Month Reason Onset Date Comments Allied Health Visit 05/31/2025 Medication A dherence Outreach Care Teams (unrecognized sec tion and content) Enrollment Specialist Relationship Specialty Start Date End Date Atul Harvey DO [address] [place] [address] PCP - General Family Practice 12/15/16 Enrollment Specialist Relationship Specialty Start Date End Date Atul Harvey DO [address] [place] [address] PCP - General Family Practice 12/15/16 Katja Lo RN [address] [place] [address] Nuclear Medicine Technician 02/06/22 Enrollment Specialist Relationship Specialty Start Date End Date Atul Harvey DO [address] [place] [address] PCP - General Family Practice 12/15/16 Katja Lo RN [address] [place] [address] Nuclear Medicine Technician 02/06/22 Enrollment Specialist Relationship Specialty Start Date End Date Atul Havrey DO [address] [place] [address] PCP - General Family Practice 12/15/16 Katja Lo, RN [address] [place] [address] Nuclear Medicine Technician 02/06/22 Enrollment Specialist Relationship Specialty Start Date End Date Atul Harvey, DO [address] [facility] [place] [place] [address] PCP - General Family Practice 12/15/16 Katja Lo, JOSE [address] [place] [address] Nuclear Medicine Technician 02/06/22 Enrollment Specialist Relationship Specialty Start Date End Date Atul Harvey, DO [address] [facility] [place] [address] PCP - General Family Practice 12/15/16 Katja Lo RN [address] [place] [address] [place] [address] Nuclear Medicine Technician 02/06/22 Enrollment Specialist Relationship Specialty Start Date End Date Atul Harvey, DO [address] [place] [address] PCP - General Family Practice 12/15/16 Katja Lo, JOSE [address] [place] [address] Nuclear Medicine Technician 02/06/22 Enrollment Specialist Relationship Specialty Start Date End Date Atul Harvey, DO [address] [facility] [place] [address] PCP - General Family Practice 12/15/16 Katja Lo, RN [address] [place] [address] Nuclear Medicine Technician 02/06/22 Enrollment Specialist Relationship Specialty Start Date End Date Atul Harvey, DO [address] [facility] [place] [place] [address] PCP - General Family Practice 12/15/16 Katja Lo, RN [address] [place] [address] Nuclear Medicine Technician 02/06/22 Enrollment Specialist Relationship Specialty Start Date End Date Atul Harvey, DO [address] [facility] [place] [place] [address] PCP - General Family Medicine 12/15/16 Katja Lo, JOSE [address] [place] [address] Nuclear Medicine Technician 02/06/22 Enrollment Specialist Relationship Specialty Start Date End Date Atul Harvey, DO [address] [place] [address] PCP - General Family Medicine 12/15/16 Katja Lo, JOSE [address] [facility] [place] [address] Nuclear Medicine Technician 02/06/22 Enrollment Specialist Relationship Specialty Start Date End Date Atul Harvey, DO [address] [facility] [place] [place] [address] PCP - General Family Medicine 12/15/16 Katja Lo, JOSE [address] [place] [address] Nuclear Medicine Technician 02/06/22 Enrollment Specialist Relationship Specialty Start Date End Date Atul Harvey, DO [address] [facility] [place] [place] [address] PCP - General Family Medicine 12/15/16 Katja Lo RN [address] [place] [address] Nuclear Medicine Technician 02/06/22 Enrollment Specialist Relationship Specialty Start Date End Date Atul Harvey, DO [address] [place] [address] PCP - General Family Medicine 12/15/16 Katja Lo, JOSE [address] [facility] [place] [address] Nuclear Medicine Technician 02/06/22 Enrollment Specialist Relationship Specialty Start Date End Date Atul Harvey, DO [address] [facility] [place] [place] [address] PCP - General Family Medicine 12/15/16 Katja Lo, RN [address] [place] [address] Nuclear Medicine Technician 02/06/22 Enrollment Specialist Relationship Specialty Start Date End Date Atul Harvey, DO [address] [facility] [place] [place] [address] PCP - General Family Medicine 12/15/16 Katja Lo, RN [address] [place] [address] Nuclear Medicine Technician 02/06/22 Enrollment Specialist Relationship Specialty Start Date End Date Atul Harvey, DO [address] [facility] [place] [address] PCP - General Family Medicine 12/15/16 Katja Lo, JOSE [address] [facility] [place] [address] Nuclear Medicine Technician 02/06/22 Enrollment Specialist Relationship Specialty Start Date End Date Atul Harvey, DO [address] [facility] [place] [address] PCP - General Family Medicine 12/15/16 Katja Lo, RN [address] [place] [address] Nuclear Medicine Technician 02/06/22 Enrollment Specialist Relationship Specialty Start Date End Date Atul Harvey, DO [address] [facility] [place] [address] PCP - General Family Medicine 12/15/16 Katja Lo, RN [address] [place] [address] Nuclear Medicine Technician 02/06/22 Enrollment Specialist Relationship Specialty Start Date End Date Atul Harvey, DO [address] [place] [address] PCP - General Family Medicine 12/15/16 Katja Lo, RN [address] [place] [address] Nuclear Medicine Technician 02/06/22 Enrollment Specialist Relationship Specialty Start Date End Date Atul Harvey, DO [address] [facility] [place] [address] PCP - General Family Medicine 12/15/16 Katja Lo, RN [address] [place] [address] Nuclear Medicine Technician 02/06/22 Enrollment Specialist Relationship Specialty Start Date End Date Atul Harvey, DO [address] [facility] [place] [address] PCP - General Family Medicine 12/15/16 Katja Lo, JOSE [address] [place] [address] Nuclear Medicine Technician 02/06/22 Enrollment Specialist Relationship Specialty Start Date End Date Atul Harvey, DO [address] [facility] [place] [address] PCP - General Family Medicine 12/15/16 Katja Lo, RN [address] [place] [address] Nuclear Medicine Technician 02/06/22 Enrollment Specialist Relationship Specialty Start Date End Date Atul Harvey, DO [address] [place] [address] PCP - General Family Medicine 12/15/16 Katja Lo, JOSE [address] [place] [address] Nuclear Medicine Technician 02/06/22 Team Status: Active Member Role Status Dates Dr. Atul Harvey DO Family Provider Active Dr. Atul Harvey , Primary Care Provider Active Team Status: Inactive Member Role Status Dates Dr. Atul Harvey , Primary Care Provider Active Dr. Kimmie Hussein MD Attending Provider, Referring Provider Active Enrollment Specialist Relationship Specialty Start Date End Date Atul Harvey, DO [address] [facility] [place] [address] PCP - General Family Medicine 12/15/16 Katja Lo, RN [address] [place] [address] Nuclear Medicine Technician 02/06/22 Enrollment Specialist Relationship Specialty Start Date End Date Atul Harvey, DO [address] [facility] [place] [address] PCP - General Family Medicine 12/15/16 Katja Lo RN [address] [place] [address] Nuclear Medicine Technician 02/06/22 Enrollment Specialist Relationship Specialty Start Date End Date Atul Harvey, DO [address] [facility] [place] [address] PCP - General Family Medicine 12/15/16 Katja Lo RN [address] [place] [address] Nuclear Medicine Technician 02/06/22 Enrollment Specialist Relationship Specialty Start Date End Date Atul Harvey, DO [address] [facility] [place] [address] PCP - General Family Medicine 12/15/16 Katja Lo RN [address] [place] [address] Nuclear Medicine Technician 02/06/22 Enrollment Specialist Relationship Specialty Start Date End Date Atul Harvey, DO [address] [facility] [place] [address] PCP - General Family Medicine 12/15/16 Mitesh Mccabe, JOSE [address] [place] [address] Nuclear Medicine Technician 02/27/23 Enrollment Specialist Relationship Specialty Start Date End Date Atul Harvey, DO [address] [facility] [place] [address] PCP - General Family Medicine 12/15/16 Mitesh Mccabe, RN [address] [place] [address] Nuclear Medicine Technician 02/27/23 Enrollment Specialist Relationship Specialty Start Date End Date Atul Harvey, DO [address] [facility] [place] [address] PCP - General Family Medicine 12/15/16 Mitesh Mccabe, RN [address] [place] [address] Nuclear Medicine Technician 02/27/23 Enrollment Specialist Relationship Specialty Start Date End Date Atul Harvey, DO [address] [facility] [place] [address] PCP - General Family Medicine 12/15/16 Mitesh Mccabe, RN [address] [place] [address] Nuclear Medicine Technician 02/27/23 Enrollment Specialist Relationship Specialty Start Date End Date Atul Harvey, DO [address] [facility] [place] [address] PCP - General Family Medicine 12/15/16 Katja Lo RN [address] [place] [address] Nuclear Medicine Technician 02/06/2202/09 Mitesh Mccabe, RN [address] [place] [address] Nuclear Medicine Technician 02/27/23 Enrollment Specialist Relationship Specialty Start Date End Date Atul Harvey, DO [address] [facility] [place] [address] PCP - General Family Medicine 12/15/16 Mitesh Mccabe, RN [address] [place] [address] Nuclear Medicine Technician 02/27/23 Enrollment Specialist Relationship Specialty Start Date End Date Atul Harvey, DO [address] [facility] [place] [address] PCP - General Family Medicine 12/15/16 Mitesh Mccabe, RN [address] [place] [address] Nuclear Medicine Technician 02/27/23 Enrollment Specialist Relationship Specialty Start Date End Date Atul Harvey, DO [address] [place] [address] PCP - General Family Medicine 12/15/16 Mitesh Mccabe, RN [address] [place] [address] Nuclear Medicine Technician 02/27/23 Enrollment Specialist Relationship Specialty Start Date End Date Atul Harvey DO [address] [facility] [place] [address] PCP - General Family Medicine 12/15/16 Mitesh Mccabe, RN [address] [place] [address] Nuclear Medicine Technician 02/27/23 Enrollment Specialist Relationship Specialty Start Date End Date Atul Harvey DO [address] [facility] [place] [address] PCP - General Family Medicine 12/15/16 Mitesh Mccabe, RN [address] [facility] [place] [address] Nuclear Medicine Technician 02/27/23 Enrollment Specialist Relationship Specialty Start Date End Date Atul Harvey DO [address] [facility] [place] [address] PCP - General Family Medicine 12/15/16 Mitesh Mccabe, RN [address] [place] [address] Nuclear Medicine Technician 02/27/23 Enrollment Specialist Relationship Specialty Start Date End Date Atul Harvey DO [address] [place] [address] PCP - General Family Medicine 12/15/16 Mitesh Mccabe, RN [address] [place] [address] Nuclear Medicine Technician 02/27/23 Enrollment Specialist Relationship Specialty Start Date End Date Atul Harvey DO [address] [place] [address] PCP - General Family Medicine 12/15/16 Mitesh Mccabe, RN [address] [facility] [place] [address] Nuclear Medicine Technician 02/27/23 Enrollment Specialist Relationship Specialty Start Date End Date Atul Harvey DO [address] [place] [address] PCP - General Family Medicine 12/15/16 Katja Lo, JOSE [address] [place] [address] Nuclear Medicine Technician 02/06/2202/09 Enrollment Specialist Relationship Specialty Start Date End Date Atul Harvey DO [address] [place] [address] PCP - General Family Medicine 12/15/16 Katja Lo, RN [address] [place] [address] Nuclear Medicine Technician 02/06/2202/09 Enrollment Specialist Relationship Specialty Start Date End Date Atul Harvey DO [address] [place] [address] PCP - General Family Medicine 12/15/16 Mitesh Mccabe, RN [address] [place] [address] Nuclear Medicine Technician 02/27/23 Enrollment Specialist Relationship Specialty Start Date End Date Atul Harvey DO [address] [place] [address] PCP - General Family Medicine 12/15/16 Mitesh Mccabe, RN [address] [facility] [place] [address] Nuclear Medicine Technician 02/27/23 Enrollment Specialist Relationship Specialty Start Date End Date Atul Harvey DO [address] [place] [address] PCP - General Family Medicine 12/15/16 Mitesh Mccabe, RN [address] [place] [address] Nuclear Medicine Technician 02/27/23 Enrollment Specialist Relationship Specialty Start Date End Date Atul Harvey DO [address] [place] [address] PCP - General Family Medicine 12/15/16 Mitesh Mccabe, RN [address] [place] [address] Nuclear Medicine Technician 02/27/23 Enrollment Specialist Relationship Specialty Start Date End Date Atul Harvey DO [address] [facility] [place] [address] PCP - General Family Medicine 12/15/16 Mitesh Mccabe, RN [address] [facility] [place] [address] Nuclear Medicine Technician 02/27/23 Enrollment Specialist Relationship Specialty Start Date End Date Atul Harvey DO [address] [facility] [place] [address] PCP - General Family Medicine 12/15/16 Mitesh Mccabe, RN [address] [place] [address] Nuclear Medicine Technician 02/27/23 Enrollment Specialist Relationship Specialty Start Date End Date Atul Harvey DO [address] [place] [address] PCP - General Family Medicine 12/15/16 Mitesh Mccabe, RN [address] [place] [address] Nuclear Medicine Technician 02/27/23 Enrollment Specialist Relationship Specialty Start Date End Date Atul Harvey DO [address] [place] [address] PCP - General Family Medicine 12/15/16 Mitesh Mccabe, RN [address] [place] [address] Nuclear Medicine Technician 02/27/23 Enrollment Specialist Relationship Specialty Start Date End Date Atul Harvey DO [address] [facility] [place] [address] PCP - General Family Medicine 12/15/16 Mitesh Mccabe, RN [address] [place] [address] Nuclear Medicine Technician 02/27/23 Enrollment Specialist Relationship Specialty Start Date End Date Atul Harvey DO [address] [place] [address] PCP - General Family Medicine 12/15/16 Mitesh Mccabe, RN [address] [place] [address] Nuclear Medicine Technician 02/27/23 Enrollment Specialist Relationship Specialty Start Date End Date Atul Harvey DO [address] [place] [address] PCP - General Family Medicine 12/15/16 Mitesh Mccabe, RN [address] [place] [address] Nuclear Medicine Technician 02/27/23 Enrollment Specialist Relationship Specialty Start Date End Date Atul Harvey DO [address] [place] [address] PCP - General Family Medicine 12/15/16 Mitesh Mccabe, RN [address] [place] [address] Nuclear Medicine Technician 02/27/23 Enrollment Specialist Relationship Specialty Start Date End Date Atul Harvey DO [address] [facility] [place] [address] PCP - General Family Medicine 12/15/16 Mitesh Mccabe, RN [address] [place] [address] Nuclear Medicine Technician 02/27/23 Enrollment Specialist Relationship Specialty Start Date End Date Atul Harvey, [address] [place] [address] PCP - General Family Medicine 12/15/16 Mitesh Mccabe, RN [address] [place] [address] Nuclear Medicine Technician 02/27/23 Enrollment Specialist Relationship Specialty Start Date End Date Atul Harvey DO [address] [facility] [place] [address] PCP - General Family Medicine 12/15/16 Mitesh Mccabe, RN [address] [place] [address] Nuclear Medicine Technician 02/27/23 Enrollment Specialist Relationship Specialty Start Date End Date Atul Harvey DO [address] [place] [address] PCP - General Family Medicine 12/15/16 Mitesh Mccabe, RN [address] [place] [address] Nuclear Medicine Technician 02/27/23 Enrollment Specialist Relationship Specialty Start Date End Date Atul Harvey DO [address] [place] [address] PCP - General Family Medicine 12/15/16 Mitesh Mccabe, RN [address] [place] [address] Nuclear Medicine Technician 02/27/23 Enrollment Specialist Relationship Specialty Start Date End Date Atul Harvey, [address] [facility] [place] [address] PCP - General Family Medicine 12/15/16 Enrollment Specialist Relationship Specialty Start Date End Date Atul Harvey, [address] [place] [address] PCP - General Family Medicine 12/15/16 Mitesh Mccabe RN [address] [place] [address] Nuclear Medicine Technician 02/27/23 Enrollment Specialist Relationship Specialty Start Date End Date Atul Harvey, [address] [place] [address] PCP - General Family Medicine 12/15/16 Mitesh Mccabe RN [address] [place] [address] Nuclear Medicine Technician 02/27/23 Enrollment Specialist Relationship Specialty Start Date End Date Atul Harvey, [address] [place] [address] PCP - General Family Medicine 12/15/16 Mitesh Mccabe RN [address] [place] [address] Nuclear Medicine Technician 02/27/23 Enrollment Specialist Relationship Specialty Start Date End Date Atul Harvey, [address] [place] [address] PCP - General Family Medicine 12/15/16 Mitesh Mccabe RN [address] [place] [address] Nuclear Medicine Technician 02/27/23 Enrollment Specialist Relationship Specialty Start Date End Date Atul Harvey, DO [address] [place] [address] PCP - General Family Medicine 12/15/16 Mitesh Mccabe RN [address] [place] [address] Nuclear Medicine Technician 02/27/2309/18/24 Milana Armijo, ALLISON.GROCERY BAGGER [address] [place] [address] Product Communications Manager Family Medicine 09/18/24 Catalina Jauregui, STEAM FINISHER.GROCERY BAGGER [address] [place] [address] Product Communications Manager Family Medicine 09/18/24 Enrollment Specialist Relationship Specialty Start Date End Date Atul Harvey DO [address] [place] [address] PCP - General Family Medicine 12/15/16 Milana Armijo, STEAM FINISHER.GROCERY BAGGER [address] [place] [address] Product Communications Manager Family Medicine 09/18/24 Catalina Jauregui, STEAM FINISHER.GROCERY BAGGER [address] [place] [address] [facility] 09/18/24 Enrollment Specialist Relationship Specialty Start Date End Date Atul Harvey DO [address] [place] [address] PCP - General Family Medicine 12/15/16 Milana Armijo, STEAM FINISHER.GROCERY BAGGER [address] [place] [address] Product Communications Manager Family Medicine 09/18/24 Catalina Jauregui, STEAM FINISHER.GROCERY BAGGER [address] [place] [address] [facility] 09/[facility]/24 Enrollment Specialist Relationship Specialty Start Date End Date Atul Harvey DO [address] [place] [address] PCP - General Family Medicine 12/15/16 Milana Armijo, STEAM FINISHER.GROCERY BAGGER [address] [place] [address] [facility] 09/18/24 [facility], STEAM FINISHER.GROCERY BAGGER [address] [place] [address] [facility] 09/18/24 Enrollment Specialist Relationship Specialty Start Date End Date Atul Harvey DO [address] [place] [address] PCP - General Family Medicine 12/15/16 Milana Armijo, STEAM FINISHER.GROCERY BAGGER [address] [place] [address] [facility] 09/18/24 [facility] Vineland[facility]ady[facility], STEAM FINISHER.GROCERY BAGGER [address] [place] [address] [facility] 09/18/24 Kirstin Reyes, JOSE [address] [place] [address] Primary Care Combine Inspector 10/24/24 Enrollment Specialist Relationship Specialty Start Date End Date Atul Harvey DO [address] [place] [address] PCP - General Family Medicine 12/15/16 Milana Armijo, STEAM FINISHER.GROCERY BAGGER [address] [place] [address] Product Communications Manager Family Medicine 09/18/24 RamírezCatalina, STEAM FINISHER.GROCERY BAGGER [address] [place] [address] [facility] 09/18/24 Kirstin Reyes, JOSE [address] [place] [address] Primary Care Combine Inspector 10/24/24 Enrollment Specialist Relationship Specialty Start Date End Date Atul Harvey DO [address] [place] [address] PCP - General Family Medicine 12/15/16 Milana Armijo, STEAM FINISHER.GROCERY BAGGER [address] [place] [address] Product Communications Manager [facility] 09/18/24 RamírezCatalina, STEAM FINISHER.GROCERY BAGGER [address] [place] [address] [facility] 09/18/24 Kirstin Reyes, JOSE [address] [place] [address] Primary Care Combine Inspector 10/24/24 Enrollment Specialist Relationship Specialty Start Date End Date Atul Harvey DO [address] [place] [address] PCP - General Family Medicine 12/15/16 Milana Armijo, STEAM FINISHER.GROCERY BAGGER [address] [place] [address] Product Communications Manager Family Medicine 09/18/24 RamírezCatalina, STEAM FINISHER.GROCERY BAGGER [address] [facility] [place] [address] [facility] 09/18/24 Kirstin Reyes, JOSE [address] [place] [address] Primary Care Combine Inspector 10/24/24 Enrollment Specialist Relationship Specialty Start Date End Date Atul Harvey DO [address] [place] [address] PCP - General Family Medicine 12/15/16 Milana Armijo, STEAM FINISHER.GROCERY BAGGER [address] [place] [address] Product Communications Manager Family Medicine 09/18/24 Catalina Jauregui, STEAM FINISHER.GROCERY BAGGER [address] [place] [address] [facility] 09/18/24 Kirstin Reyes RN [address] [place] [address] Primary Care Combine Inspector 10/24/24 Enrollment Specialist Relationship Specialty Start Date End Date Atul Harvey DO [address] [place] [address] PCP - General Family Medicine 12/15/16 Milana Armijo, STEAM FINISHER.GROCERY BAGGER [address] [place] [address] Product Communications Manager Family Medicine 09/18/24 Catalina Jauregui, STEAM FINISHER.GROCERY BAGGER [address] [place] [address] Product Communications Manager Family Medicine 09/18/24 Kirstin Reyes, JOSE [address] [place] [address] Primary Care Combine Inspector 10/24/24 Enrollment Specialist Relationship Specialty Start Date End Date Atul Harvey DO [address] [place] [address] PCP - General Family Medicine 12/15/16 Milana Armijo, STEAM FINISHER.GROCERY BAGGER [address] [place] [address] Product Communications Manager [facility] 09/18/24 [facility], STEAM FINISHER.GROCERY BAGGER [address] [place] [address] [facility] 09/18/24 Kirstin Reyes, JOSE [address] [place] [address] Primary Care Combine Inspector 10/24/24 Enrollment Specialist Relationship Specialty Start Date End Date Atul Harvey DO [address] [place] [address] PCP - General Family Medicine 12/15/16 Milana Armijo, STEAM FINISHER.GROCERY BAGGER [address] [place] [address] [facility] 09/18/24 [facility], STEAM FINISHER.GROCERY BAGGER [address] [place] [address] Product Communications Manager [facility] 09/18/24 Kirstin Reyes, JOSE [address] [place] [address] Primary Care Combine Inspector 10/24/24 11/18/24 Enrollment Specialist Relationship Specialty Start Date End Date Atul Harvey DO [address] [place] [address] PCP - General Family Medicine 12/15/16 Milana Armijo, STEAM FINISHER.GROCERY BAGGER [address] [place] [address] Product Communications Manager Family Medicine 09/18/24 Catalina Jauregui, STEAM FINISHER.GROCERY BAGGER [address] [place] [address] [facility] 09/18/24 Enrollment Specialist Relationship Specialty Start Date End Date Atul Harvey DO [address] [place] [address] PCP - General Family Medicine 12/15/16 Milana Armijo, STEAM FINISHER.GROCERY BAGGER [address] [place] [address] Product Communications Manager Family Medicine 09/18/24 Catalina Jauregui, STEAM FINISHER.GROCERY BAGGER [address] [place] [address] [facility] 09/18/24 Enrollment Specialist Relationship Specialty Start Date End Date Atul Harvey DO [address] [place] [address] PCP - General Family Medicine 12/15/16 Milana Armijo, STEAM FINISHER.GROCERY BAGGER [address] [place] [address] Product Communications Manager Family Medicine 09/18/24 Catalina Jauregui, STEAM FINISHER.GROCERY BAGGER [address] [place] [address] Product Communications Manager Family Medicine 09/18/24 Enrollment Specialist Relationship Specialty Start Date End Date Atul Harvey DO [address] [place] [address] PCP - General Family Medicine 12/15/16 Catalina Jauregui APRN.GROCERY BAGGER [address] [place] [address] Product Communications Manager Family Medicine 09/18/24 Team Status: Active Member Role Status Dates Dr. Atul Harvey DO Primary Care Provider Active Team Status: Inactive Member Role Status Dates Dr. Atul Harvey DO Primary Care Provider Active Start: October 12, 2024 End: October 18, 2024 Dr. Yuri Meier DO Referring Provider Active Start: October 12, 2024 End: October 18, 2024 Dr. Yuri Meier DO Emergency Provider Active Start: October 12, 2024 End: October 18, 2024 Dr. Doug Tubbs DO Admit Provider Active Star t: October 12, 2024 End: October 18, 2024 Dr. Doug Tubbs DO Other Provider Active Star t: October 12, 2024 End: October 18, 2024 Dr. Mario Hagen MD Other Provider Active Start : October 12, 2024 End: October 18, 2024 Dr. Rasheed Ledezma MD Attending Provider Active Start: October 12, 2024 End: October 18, 2024 Team Status: Active Member Role Status Dates Dr. Atul Harvey DO Primary Care Provider Active Start: October 12, 2024 Dr. Yuri Meier DO Referring Provider Active Start: October 12, 2024 Dr. Yuri Meier DO Emergency Provider Active Start: October 12, 2024 Dr. Doug Tubbs DO Admit Provider Active Star t: October 12, 2024 Dr. Doug Tubbs DO Attending Provider Active Start: October 12, 2024 Dr. Doug Tubbs DO Other Provider Active Star t: October 12, 2024 Team Status: Active Member Role Status Dates Dr. Atul Harvey DO Primary Care Provider Active Start: October 13, 2024 Dr. Yuri Meier DO Emergency Provider Active Start: October 13, 2024 Dr. Doug Tubbs DO Admit Provider Active Star t: October 13, 2024 Dr. Doug Tubbs DO Other Provider Active Star t: October 13, 2024 Dr. aRsheed Ledezma MD Attending Provider Active Start: October 13, 2024 Dr. Rasheed Ledezma MD Other Provider Active Star t: October 13, 2024 Team Status: Active Member Role Status Dates Dr. Atul Harvey DO Primary Care Provider Active Start: October 13, 2024 Dr. Mairo Hagen MD Attending Provider Active S tart: October 13, 2024 Team Status: Active Member Role Status Dates Dr. Atul Harvey DO Primary Care Provider Active Start: October 14, 2024 Dr. Yuri Meier DO Emergency Provider Active Start: October 14, 2024 Dr. Doug Tubbs DO Admit Provider Active Star t: October 14, 2024 Dr. Doug Tubbs DO Other Provider Active Star t: October 14, 2024 Dr. Rasheed Ledezma MD Attending Provider Active Start: October 14, 2024 Dr. Rasheed Ledezma MD Other Provider Active Star t: October 14, 2024 Team Status: Active Member Role Status Dates Dr. Atul Harvey DO Primary Care Provider Active Start: October 15, 2024 Dr. Yuri Meier DO Emergency Provider Active Start: October 15, 2024 Dr. Doug Tubbs DO Admit Provider Active Star t: October 15, 2024 Dr. Doug Tubbs DO Other Provider Active Star t: October 15, 2024 Dr. Rasheed Ledezma MD Attending Provider Active Start: October 15, 2024 Dr. Rasheed Ledezma MD Other Provider Active Star t: October 15, 2024 Team Status: Active Member Role Status Dates Dr. Atul Harvey DO Primary Care Provider Active Start: October 16, 2024 Dr. Yuri Meier DO Referring Provider Active Start: October 16, 2024 Dr. Yuri Meier DO Emergency Provider Active Start: October 16, 2024 Dr. Doug Tubbs DO Admit Provider Active Star t: October 16, 2024 Dr. Doug Tubbs DO Other Provider Active Star t: October 16, 2024 Dr. Rasheed Ledezma MD Attending Provider Active Start: October 16, 2024 Dr. Rasheed Ledezma MD Other Provider Active Star t: October 16, 2024 Dr. Mario Hagen MD Other Provider Active Start : October 16, 2024 Team Status: Active Member Role Status Dates Dr. Atul Harvey DO Primary Care Provider Active Start: October 16, 2024 Dr. Yuri Meier DO Referring Provider Active Start: October 16, 2024 Dr. Yuri Meier DO Emergency Provider Active Start: October 16, 2024 Dr. Doug Tubbs DO Admit Provider Active Star t: October 16, 2024 Dr. Doug Tubbs DO Other Provider Active Star t: October 16, 2024 Dr. Rasheed Ledezma MD Other Provider Active Star t: October 16, 2024 Dr. Mario Hagen MD Attending Provider Active S tart: October 16, 2024 Dr. Mario Hagen MD Other Provider Active Start : October 16, 2024 Team Status: Active Member Role Status Dates Dr. Atul Harvey DO Primary Care Provider Active Start: October 17, 2024 Dr. Yuri Meier DO Emergency Provider Active Start: October 17, 2024 Dr. Doug Tubbs DO Admit Provider Active Star t: October 17, 2024 Dr. Doug Tubbs DO Other Provider Active Star t: October 17, 2024 Dr. Rasheed Ledezma MD Attending Provider Active Start: October 17, 2024 Dr. Rasheed Ledezma MD Other Provider Active Star t: October 17, 2024 Dr. Mario Hagen MD Other Provider Active Start : October 17, 2024 Team Status: Active Member Role Status Dates Dr. Atul Harvey DO Primary Care Provider Active Start: October 17, 2024 Dr. Yuri Meier DO Referring Provider Active Start: October 17, 2024 Dr. Yuri Meier DO Emergency Provider Active Start: October 17, 2024 Dr. Doug Tubbs DO Admit Provider Active Star t: October 17, 2024 Dr. Doug Tubbs DO Other Provider Active Star t: October 17, 2024 Dr. Rasheed Ledezma MD Other Provider Active Star t: October 17, 2024 Dr. Mario Hagen MD Other Provider Active Start : October 17, 2024 Dr. Dea Serna MD Attending Provider Active Start: October 17, 2024 Team Status: Active Member Role Status Dates Dr. Atul Harvey DO Primary Care Provider Active Start: October 18, 2024 Dr. Yuri Meier DO Referring Provider Active Start: October 18, 2024 Dr. Yuri Meier DO Emergency Provider Active Start: October 18, 2024 Dr. Doug Tubbs DO Admit Provider Active Star t: October 18, 2024 Dr. Doug Tubbs DO Other Provider Active Star t: October 18, 2024 Dr. Rasheed Ledezma MD Other Provider Active Star t: October 18, 2024 Dr. Mario Hagen MD Other Provider Active Start : October 18, 2024 Dr. Dea Serna MD Attending Provider Active Start: October 18, 2024 Team Status: Active Member Role Status Dates Dr. Atul Harvey DO Primary Care Provider Active Start: October 18, 2024 Dr. Yuri Meier DO Emergency Provider Active Start: October 18, 2024 Dr. Doug Tubbs DO Admit Provider Active Star t: October 18, 2024 Dr. Doug Tubbs DO Other Provider Active Star t: October 18, 2024 Dr. Rasheed Ledezma MD Attending Provider Active Start: October 18, 2024 Dr. Rasheed Ledezma MD Other Provider Active Star t: October 18, 2024 Dr. Mario Hagen MD Other Provider Active Start : October 18, 2024 Team Status: Inactive Member Role Status Dates Dr. Atul Harvey DO Primary Care Provider Active Start: November 21, 2024 End: November 21, 2024 Dr. Kimmie Hussein MD Attending Provider Active Start: November 21, 2024 End: November 21, 2024 Dr. Kimmie Hussein MD Referring Provider Active Start: November 21, 2024 End: November 21, 2024 Team Status: Inactive Member Role Status Dates Dr. Atul Harvey DO Primary Care Provider Active Start: January 06, 2025 End: January 06, 2025 Dr. Fredy Freeman DO Emergency Provider Active Start: January 06, 2025 End: January 06, 2025 Enrollment Specialist Relationship Specialty Start Date End Date Atul Harvey DO [address] [place] [address] PCP - General Family Medicine 12/15/16 Catalina Jauregui, STEAM FINISHER.GROCERY BAGGER [address] [place] [address] [facility] 09/18/24 Enrollment Specialist Relationship Specialty Start Date End Date Atul Harvey DO [address] [place] [address] PCP - General Family Medicine 12/15/16 Milana Armijo, STEAM FINISHER.GROCERY BAGGER [address] [place] [address] Product Communications Manager Family Medicine 09/18/24 12/30/24 Catalina Jauregui, STEAM FINISHER.GROCERY BAGGER [address] [place] [address] [facility] 09/[facility]/24 Enrollment Specialist Relationship Specialty Start Date End Date Atul Harvey DO [address] [place] [address] PCP - General Family Medicine 12/15/16 Catalina Jauregui, STEAM FINISHER.GROCERY BAGGER [address] [place] [address] [facility] 09/18/24 Enrollment Specialist Relationship Specialty Start Date End Date Atul Harvey DO [address] [place] [address] PCP - General Family Medicine 12/15/16 Catalina Jauregui, STEAM FINISHER.GROCERY BAGGER [address] [place] [address] [facility] 09/18/24 Enrollment Specialist Relationship Specialty Start Date End Date Atul Harvey DO [address] [facility] [place] [place] [address] PCP - General Family Medicine 12/15/16 Catalina Jauregui, STEAM FINISHER.GROCERY BAGGER [address] [facility] [place] [address] [facility] Communications [facility] 09/18/24 Enrollment Specialist Relationship Specialty Start Date End Date Atul Harvey DO [address] [facility] [place] [address] PCP - General Family Medicine 12/15/16 Catalina Jauregui, STEAM FINISHER.GROCERY BAGGER [address] [place] [address] [facility] 09/18/24 Enrollment Specialist Relationship Specialty Start Date End Date Atul Harvey DO [address] [facility] [place] [address] PCP - General Family Medicine 12/15/16 Catalina Jauregui, STEAM FINISHER.GROCERY BAGGER [address] [facility] [place] [address] [facility] 09/18/24 Enrollment Specialist Relationship Specialty Start Date End Date Atul Harvey DO [address] [facility] [place] [address] PCP - General Family Medicine 12/15/16 Catalina Jauregui, STEAM FINISHER.GROCERY BAGGER [address] [place] [address] [facility] 09/18/24 Team Status: Inactive Member Role Status Dates Dr. Atul Harvey DO Primary Care Provider Active Start: January 06, 2025 End: January 06, 2025 Dr. Fredy Freeman DO Attending Provider Active Start: January 06, 2025 End: January 06, 2025 Dr. Fredy Freeman DO Emergency Provider Active Start: January 06, 2025 End: January 06, 2025 Team Status: Active Member Role Status Dates Dr. Atul Harvey DO Primary Care Provider Active Start: January 18, 2025 Tate POWELL MD Attending Provider Active Start: January 18, 2025 Team Status: Active Member Role Status Dates Dr. Atul Harvey DO Primary Care Provider Active Start: January 24, 2025 Tate POWELL MD Attending Provider Active Start: January 24, 2025 Team Status: Active Member Role Status Dates Dr. Atul Harvey DO Primary Care Provider Active Start: January 26, 2025 Tate POWELL MD Attending Provider Active Start: January 26, 2025 Tate POWELL MD Referring Provider Active Start: January 26, 2025 Team Status: Inactive Member Role Status Dates Dr. Atul aHrvey DO Primary Care Provider Active Start: February 13, 2025 End: February 13, 2025 Dr. Kimmie Hussein MD Attending Provider Active Start: February 13, 2025 End: February 13, 2025 Dr. Kimmie Hussein MD Referring Provider Active Start: February 13, 2025 End: February 13, 2025 Enrollment Specialist Relationship Specialty Start Date End Date Atul Harvey DO [address] [place] [address] PCP - General Family Medicine 12/15/16 Catalina Jauregui APRN.GROCERY BAGGER [address] [place] [address] [facility] 09/18/24 Enrollment Specialist Relationship Specialty Start Date End Date Atul Harvey DO [address] [place], [place] [address] PCP - General Family Medicine 12/15/16 Catalina Jauregui APRN.GROCERY BAGGER [address] [place], [place] [address] Product Communications Manager [facility] 09/18/24 Pinky Welsh, STEAM FINISHER.GROCERY BAGGER [address] [place], [place] [address] Product Communications Manager [facility] 03/27/25 Team Status: Inactive Member Role Status Dates Dr. Atul Harvey DO Primary Care Provider Active Start: January 17, 2025 End: January 17, 2025 Lori Nuñez VARIETY SAW OPERATOR, VARIETY SAW OPERATOR-C Attending Provider Active Start: January 17, 2025 End: January 17, 2025 Team Status: Inactive Member Role Status Dates Dr. Atul Harvey DO Primary Care Provider Active Start: January 18, 2025 End: January 18, 2025 Lori Nuñez NP, VARIETY SAW OPERATOR-C Attending Provider Active Start: January 18, 2025 End: January 18, 2025 Team Status: Inactive Member Role Status Dates Dr. Atul Harvey DO Primary Care Provider Active Start: January 19, 2025 End: January 19, 2025 Lori Nuñez NP, VARIETY SAW OPERATOR-C Attending Provider Active Start: January 19, 2025 End: January 19, 2025 Team Status: Inactive Member Role Status Dates Dr. Atul Harvey DO Primary Care Provider Active Start: January 24, 2025 End: January 24, 2025 Dr. Tate Reynolds MD Attending Provider Active Start: January 24, 2025 End: January 24, 2025 Enrollment Specialist Relationship Specialty Start Date End Date Atul Harvey DO [address] [place], [place] [address] PCP - General Family Medicine 12/15/16 Catalina Jauregui, STEAM FINISHER.GROCERY BAGGER [address] [place] [address] Product Communications Manager Family Medicine 09/18/24 Pinky Welsh, STEAM FINISHER.GROCERY BAGGER [address] [place] [address] Product Communications Manager Family Medicine 03/27/25 Enrollment Specialist Relationship Specialty Start Date End Date Atul Harvey DO [address] [place] [address] PCP - General Family Medicine 12/15/16 Catalina Jauregui, STEAM FINISHER.GROCERY BAGGER [address] [place] [address] Product Communications Manager Family Medicine 09/18/24 Pinky Welsh, STEAM FINISHER.GROCERY BAGGER [address] [place] [address] [facility] 03/27/25 Enrollment Specialist Relationship Specialty Start Date End Date Atul Harvey DO [address] [place] [address] PCP - General Family Medicine 12/15/16 Catalina Jauregui, STEAM FINISHER.GROCERY BAGGER [address] [place] [address] Product Communications Manager Family Medicine 09/18/24 Pinky Welsh, STEAM FINISHER.GROCERY BAGGER [address] [place] [address] [facility] 03/27/25 Enrollment Specialist Relationship Specialty Start Date End Date Atul Harvey DO [address] [place] [address] PCP - General Family Medicine 12/15/16 RamírezCatalina, STEAM FINISHER.GROCERY BAGGER [address] [place] [address] Product Communications Manager Family Medicine 09/18/24 Pinky Welsh, STEAM FINISHER.GROCERY BAGGER [address] [place] [address] [facility] 03/27/25 Enrollment Specialist Relationship Specialty Start Date End Date Atul Harvey DO [address] [place] [address] PCP - General Family Medicine 12/15/16 [facility]eland[facility], STEAM FINISHER.GROCERY BAGGER [address] [place] [address] Product Communications Manager Family Medicine 09/18/24 Pinky Welsh, STEAM FINISHER.GROCERY BAGGER [address] [place] [address] [facility] 03/27/25 Enrollment Specialist Relationship Specialty Start Date End Date Atul Harvey DO [address] [place] [address] PCP - General Family Medicine 12/15/16 RamírezCatalina, STEAM FINISHER.GROCERY BAGGER [address] [place] [address] [facility] 09/18/24 Pinky Welsh, STEAM FINISHER.GROCERY BAGGER [address] [place] [address] [facility] 03/27/25 Team Status: Active Member Role/Relationship Status Dates Dr. Atul Harvey DO Primary Care Provider Active Team Status: Active Member Role/Relationship Status Dates Dr. Atul Harvey DO Primary Care Provider Active Start: January 24, 2025 Tate POWELL MD Attending Provider Active Start: January 24, 2025 Team Status: Inactive Member Role/Relationship Status Dates Dr. Atul Harvey DO Primary Care Provider Active Start: January 24, 2025 End: January 24, 2025 Dr. Tate Reynolds MD Attending Provider Active Start: January 24, 2025 End: January 24, 2025 Team Status: Active Member Role/Relationship Status Dates Dr. Atul Harvey DO Primary Care Provider Active Start: January 26, 2025 Tate POWELL MD Attending Provider Active Start: January 26, 2025 Tate POWELL MD Referring Provider Active Start: January 26, 2025 Team Status: Inactive Member Role/Relationship Status Dates Dr. Atul Harvey DO Primary Care Provider Active Start: February 13, 2025 End: February 13, 2025 Dr. Kimmie Hussein MD Attending Provider Active Start: February 13, 2025 End: February 13, 2025 Dr. Kimmie Hussein MD Referring Provider Active Start: February 13, 2025 End: February 13, 2025 Team Status: Inactive Member Role/Relationship Status Dates Dr. Atul Harvey DO Primary Care Provider Active Start: May 08, 2025 End: May 08, 2025 Dr. Kimmie Hussein MD Attending Provider Active Start: May 08, 2025 End: May 08, 2025 Dr. Kimmie Hussein MD Referring Provider Active Start: May 08, 2025 End: May 08, 2025 Enrollment Specialist Relationship Specialty Start Date End Date Atul Harvey DO [address] [place] [address] PCP - General Family Medicine 12/15/16 Catalina Jauregui APRN.GROCERY BAGGER [address] [place] [address] [facility] 09/18/24 Pinky Welsh APRN.[facility] [address] [place] [address] [facility] 03/27/25 Goals (unrecognized section and content) Goals may be documented in a n alternate sectionGoals may be documented in an alternate sectionGoals may be documented in an alternate sectionGoals may be documented in an alternate sectionGoals may be documented in an alternate sectionGoals may be documented in an alternate sectionGoals may be documented in an alternate sectionGoals may be documented in an alternate sectionGoals may be documented in an alternate sectionGoals may be documented in an alternate sectionGoals may be documented in an alternate sectionGoals may be documented in an alternate sectionGoals may be documented in an alternate sectionGoals may be documented in an alternate section INFORMATION SOURCE (unrecogn ized section and content) DATE CREATED AUTHOR 04/18/2023 [facility] DATE CREATED AUTHOR AUTHOR'S ORGANIZ ATION 01/18/2025 [facility] DATE CREATED AUTHOR AUTHOR'S ORGANIZ ATION 06/02/2025 [facility] DATE CREATED AUTHOR AUTHOR'S ORGANIZ ATION 06/12/2025 [facility] FOR RECORDS PERTAINING TO PATIENTS WHO ARE OR HAVE BEEN ENROLLED IN A CHEMICAL DEPENDENCY/SUBSTANCEABUSE PROGRAM, SOME INFORMATION MAY BE OMITTED. This clinical summary was aggregated from multiple sources. Caution should be exercised in using it in the provision of clinical care. This summary normalizes information from multiple sources, and as a consequence, information in this document may materially change the coding, format and clinical context of patient data. In addition, data may be omitted in some cases. CLINICAL DECISIONS SHOULD BE BASED ON THE PRIMARY CLINICAL RECORDS. [facility] [employer] provides no warranty or guarantee of the accuracy or completeness of information in this document.
[2025-06-13 00:26] LABS: Dohle Bodies 1+
[2025-06-13 00:27] LABS: Acanthocytes 1+; Anisocytosis 2+; Microcytosis 1+; Polychromasia 1+; Target Cells 1+
[2025-06-13] MEDS: NORMAL SALINE 0.9% IV (00:33)
[2025-06-13] MEDS: VANCOMYCIN HCL IV (00:33)
[2025-06-13] MEDS: DiphenhydrAMINE 50 MG/ML Syringe 12.5 MG IV (01:13)
--- NOTE | 2025-06-13 01:15 | PCM.HP.STD ---
HPI - General General Date of Admission: 06/13/25 Date of Service: 06/13/25 Chief Complaint: Confusion, fever. HPI Narrative The patient is an 84 y/o F w/ PMHx: Anxiety and Depression, Hypothyroidism, Morbid obesity, CKD stage III unclear subtype per GFR trending, Chronic microcytic anemia, PAF, Rheumatoid arthritis, HTN, HLD, GERD, Allergic rhinitis, Gout, Chronic constipation who presents to the [facility] ED on 06/13/2025 with history of altered mental status with decreasing mentation from her baseline over the last 24 hours with onset of fever eventually prompting EMS call to patient home and transition to the ED for evaluation. Workup in the ED included T103.4 oral, heart rate 110, BP 152/108, respiratory rate 37, 90% on 3 L nasal cannula with most recent repeat vitals T103.4, heart rate 114, BP 152/108, respiratory rate 37, 93% on 3 L nasal cannula, CBC with WBC 26.8, hemoglobin 10.8, MCV 79.7, platelet 286 with left shift, coags with PT 20.2 otherwise not remarkable, CMP with carbon oxide 17, anion gap 18, BUN/Guinan 20/1.44, GFR 36, glucose 172, hepatic profile with T. bili 0.48, AST/ALT 62/37, ammonia 21, TSH 1.120, lactic acid 5.4, magnesium 1.6, urinalysis with cloudy appearing urine, urine protein 500, occult blood 50, positive nitrate, leukocyte Estrace 100, urine RBCs 50-100 with 3+ urine bacteria, blood culture x 2 pending per ED, urine culture pending per ED, CXR with no preliminary acute findings but awaiting radiology read, rapid SARS COVID/flu/RSV negative. In the ED patient administered Tylenol rectally 650 mg x 1, meropenem 1 g IV x 1, vancomycin 1500 mg IV x 1, [address] head pending upon evaluation. [facility] Medical History Anxiety and depression Hypothyroidism HLD (hyperlipidemia) GERD (gastroesophageal reflux disease) Chronic anemia Gout Morbid obesity Allergic rhinitis Atrial fibrillation Rheumatoid arthritis Chronic kidney disease, stage 3 Hypertension Home Medications ?Medication ?Instructions ?Recorded ?Last Taken ?Type allopurinol 100 mg tablet 100 mg PO DAILYCM gout 11/12/14 10/11/24 History furosemide 40 mg tablet 20 mg PO DAILY diuretic 11/12/14 Unknown History cholecalciferol (vitamin D3) 1,250 1,250 mcg PO QWEEK supplement 10/12/24 10/10/24 History mcg (50,000 unit) capsule duloxetine 30 mg capsule,delayed 30 mg PO QHS mood 10/12/24 Unknown History release folic acid 1 mg tablet 2 mg PO DAILY supplement 10/12/24 Unknown History levothyroxine 25 mcg tablet 25 mcg PO DAILY disorder of 10/12/24 Unknown History thyroid gland potassium chloride 10 mEq 10 meq PO BID supplement 10/12/24 Unknown History tablet,extended release(part/cryst) (Klor-Con M) rosuvastatin 10 mg tablet 10 mg PO DAILY cholesterol 10/12/24 Unknown History apremilast 30 mg tablet (Otezla) 30 mg PO BID psoriasis 10/13/24 Unknown History famotidine 20 mg tablet (Acid 20 mg PO DAILY gerd 10/13/24 Unknown History Controller) mecobalamin (vitamin B12) 1,000 1,000 mcg PO .OD supplement 10/13/24 Unknown History mcg chewable tablet (B12 Active) vit C 250 mg-vit E 90 mg-zinc 40 1 tab PO DAILY supplement 10/13/24 Unknown History mg-copper 1 [id number]-iravle capsule (PreserVision AREDS-2) acetaminophen 325 mg tablet 650 mg (2 x 325 mg) PO Q6H PRN PRN 10/18/24 Unknown Rx Pain 1-10 Or Fever>100.7 #0 tabs apixaban 5 mg tablet (Eliquis) 5 mg PO BID #60 tabs 10/18/24 Unknown Rx losartan 50 mg tablet 50 mg PO DAILY #60 tabs 10/18/24 Unknown Rx metoprolol tartrate 100 mg tablet 100 mg PO BID #60 tabs 10/18/24 Unknown Rx amiodarone 200 mg tablet 200 mg PO DAILY 01/06/25 Unknown History atorvastatin 20 mg tablet 20 mg PO DAILY 06/13/25 Unknown History furosemide 20 mg tablet 20 mg PO DAILY 06/13/25 Unknown History levothyroxine 75 mcg tablet 75 mcg PO DAILY 06/13/25 Unknown History metoprolol tartrate 50 mg tablet 50 mg PO BID 06/13/25 Unknown History Allergy/AdvReac Type Severity Reaction Status Date / Time amlodipine besylate (From Allergy Other Verified 06/12/25 23:24 Norvasc) bumetanide (From Bumex) Allergy Other Verified 06/12/25 23:24 cephalexin monohydrate (From Allergy Hives Verified 06/12/25 23:24 Keflex) colchicine Allergy Hives Verified 06/12/25 23:24 hydrochlorothiazide Allergy Hives Verified 06/12/25 23:24 hydrocortisone acetate (From Allergy Other Verified 06/12/25 23:24 Hydrocortone Acetate) minoxidil Allergy Other Verified 06/12/25 23:24 naproxen Allergy Rash Verified 06/12/25 23:24 ofloxacin (From Floxin) Allergy Shortness Verified 06/12/25 23:24 of breath Penicillins (PCN) Allergy Rash Verified 06/12/25 23:24 Sulfa (Sulfonamide Allergy Rash Verified 06/12/25 23:24 Antibiotics) Family History Son Diabetes CAD (coronary artery disease) Mother Diabetes Father Heart disease Hypertension Prostate cancer Surgical History History of intestinal surgery History of bladder surgery History of partial hysterectomy H/O hernia repair Hx of cholecystectomy Social History household members: none Smoking Status: Never smoker alcohol intake: never substance use type: does not use ROS Review of Systems ROS Unobtainable: due to encephalopathy Vital Signs Vital Signs Vital Signs: 06/12/25 23:24 06/12/25 23:32 06/12/25 23:33 Temperature 103.4 F H 103.4 F H Temperature Source Oral Oral Pulse Rate 110 H 114 H Respiratory Rate 37 H 37 H Blood Pressure 152/108 H 152/108 H Blood Pressure Mean 122 122 Pulse Ox 90 93 93 Oxygen Delivery Method Nasal Cannula Nasal Cannula Nasal Cannula Oxygen Flow Rate (L/min) 3 3 3 06/13/25 00:07 06/13/25 00:23 Temperature 104.9 F H 104.1 F H Temperature Source Core Core Pulse Rate 100 97 Respiratory Rate 37 H 32 H Blood Pressure 159/72 H 166/81 H Blood Pressure Mean 101 109 Pulse Ox 95 100 Oxygen Delivery Method Nasal Cannula Nasal Cannula Oxygen Flow Rate (L/min) 3 3 Weight Weight: 227 lb 15.327 oz Body Mass Index (BMI) 40.4 Physical Exam Narrative Physical Examination: General: Awake, alert, oriented to self and daughter but very confused and agitated, frequently attempting to move in the bed and pulling off her gown, does follow some commands. Skin: Normal color, normal turgor, no icterus, no cyanosis except for occasional stage ecchymoses, abrasions HEENT: AT/NC, EOMI, PERRLA, dry MM, no carotid bruits or JVD noted. Lungs: Mildly diminished, greater bases, tachypneic, very agitated however moving about in the bed, no significantly appreciated rales, ronchi or wheezing. Heart: Mildly tachycardic with regular rhythm; no gallop, rub audible. Abdomen: Soft, morbidly obese, NTTP, ND, distant normal BS, no appreciated HSM. Extremities: No cyanosis, no clubbing, no significant distal pitting edema. Neurological: Awake, alert, oriented to self and daughter but very confused and agitated, frequently attempting to move in the bed and pulling off her gown, does follow some commands, cognitive function not baseline intact; pupils equally reactive to light and accommodation, cranial nerves grossly normal, moving all 4 extremities, no obvious focal deficits, strength severely globally decreased secondary to acute presentation. Psychiatric: Affect appears agitated, no acute evidence of depressive or anxiety feelings but does have underlying history. Results Lab / Micro Data 06/12/25 23:29 06/12/25 23:29 Labs: Laboratory Results - last 24 hr 06/12/25 23:29: WBC 26.8 H, RBC 4.43, Hgb 10.8 L, Hct 35.3 L, MCV 79.7 L, MCH 24.4 L, MCHC 30.6 L, RDW Std Deviation 75.7 H, RDW Coeff of Akin 27.4 H, Plt Count 286, MPV 10.8, Immature Gran % (Auto) 2.800 H, Neut % (Auto) 89.3 H, Lymph % (Auto) 6.8 L, [place] % (Auto) 0.6, Eos % (Auto) 0.2, Baso % (Auto) 0.3, Absolute Neuts (auto) 23.9 H, Absolute Lymphs (auto) 1.83, Nucleated RBC % 0, Differential Comment , Dohle Bodies 1+, Platelet Estimate ADEQUATE, Polychromasia 1+, Anisocytosis 2+, Microcytosis 1+, Target Cells 1+, Acanthocytes (Spur) 1+, PT 20.2 H, INR 1.7, APTT 34.3, Sodium 134, Potassium 3.5, Chloride 99, Carbon Dioxide 17.0 L, Anion Gap 18 H, BUN 20 H, Creatinine 1.44 H, Estim Creat Clear Calc 32.83 L, Est GFR (MDRD) Non-Af 36 L, BUN/Creatinine Ratio 14.2, Glucose 172 H, Lactic Acid 5.4 H*, Calcium 8.8, Magnesium 1.6, Total Bilirubin 1.20, Direct Bilirubin 0.48 H, AST 62 H, ALT 37 H, Alkaline Phosphatase 101, Ammonia 21.0, Total Protein 7.9, Albumin 3.7, Globulin 4.2, Albumin/Globulin Ratio 0.9, TSH 1.120 06/12/25 23:40: Urine Color Yellow, Urine Clarity Sl. Cloudy, Urine pH 6.0, Ur Specific [place] 1.015, Urine Protein 500 H, Urine Glucose (UA) Normal, Urine Ketones Negative, Urine Occult Blood 50 H, Urine Nitrite Positive H, Urine Bilirubin Negative, Urine Urobilinogen Normal, Ur Leukocyte Esterase 100 H, Urine RBC 0-5 SEEN, Urine WBC 50-100 SEEN, Ur Squamous Epith Cells 0-5 SEEN, Urine Bacteria 3+, Urine Mucus 0 SEEN Micro: Microbiology 06/12/25 23:40 Mucosa - Nose SARS-CoV-2, Influenza & RSV (PCR) - Final Assessment & Plan Assessment/Plan (1) UTI (urinary tract infection): PLAN: Plan The patient is an 84 y/o F w/ PMHx: Anxiety and Depression, Hypothyroidism, Morbid obesity, CKD stage III unclear subtype per GFR trending, Chronic microcytic anemia, PAF, Rheumatoid arthritis, HTN, HLD, GERD, Allergic rhinitis, Gout, Chronic constipation who presents to the [facility] ED on 06/13/2025 with history of altered mental status with decreasing mentation from her baseline over the last 24 hours with onset of fever eventually prompting EMS call to patient home and transition to the ED for evaluation. #1. Acute Sepsis secondary to (Encephalopathy, febrile, leukocytosis, hypoxic, source) secondary to Acute Complicated Urinary Tract Infection: As long as no acute concerning findings on CT head given recent altered mentation and on anticoagulant, would plan to admit to the ICU, will continue ICU consultation, will maintain on IV meropenem given allergies and severity of presentation, MRSA screen requested and will de-escalate off vancomcyin if negative, will continue 30 cc/kg IV fluid administration per ED for sepsis treatment initiation, UA upon ED evaluation remarkable, pending UCx, monitor I/Os, continue IV Rocephin/Cipro w/ transition as able pending sensitivities and speciation. Bld cx x 2 obtained in the ED. PT/OT/CM consulted for discharge planning. #2. Mild Acute Renal Insufficiency/Elevated Creatinine on Chronic Kidney Disease Stage III, unclear subtype or GFR trending: Admission BUN/Cr 20/1.44, GFR 36, baseline renal function primarily 0.8-1.1, most recently previous to the 05/08/2025 creatinine 1.09, repeat BMP in AM. #3. Hypertension: Continue home regimen including metoprolol, losartan with hold parameters as needed, PRN hydralazine. Temporally holding diuretic therapy. #4. Hyperlipidemia: Will continue patient home statin therapy. #5. PAF: Will continue patient home metoprolol, amiodarone and Eliquis regimen. #6. Chronic microcytic anemia: Admission hemoglobin 10.8, MCV 79.7, baseline hemoglobin more recently 9-10, stable, continue to trend. Given that labs are more consistent potentially since being on Eliquis to be cautious we will obtain iron panel, ferritin and guaiac. #7. Hypothyroidism: Will continue patient on levothyroxine regimen, TSH per ED 1.120. #8. Anxiety and depression: Will continue patient home duloxetine regimen. #9. Morbid Obesity: Weight loss and lifestyle changes encouraged. #10. Gout: Will continue patient on allopurinol regimen. #11. Rheumatoid arthritis: Noted history, not on any rheumatological agents per current list, not on chronic steroids but clarified to be certain, encourage continued follow-up with rheumatology as previously arranged. #12. GERD: Place on IV PPI until oral intake appropriate. #13. DVT prophylaxis: Cautiously continue patient home Eliquis regimen. #14. CODE status: Patient HCPOA is per daughter who is present and living will is currently in place. Discussed CODE status at length including difference between FULL code, DNR-CCA and DNR-CC status. Following discussions about the differences in these status, requested Full Code status. Advanced Care Planning Face to Face Time: 16 minutes. Charges/Coding Visit Charges Inpatient E&M: 60589 Init Hosp L3 Procedures Hospitalists Procedures: 87830 Advncd Care Plan 30 Min
--- NOTE | 2025-06-13 02:12 | EX.ED.DYSGE1 ---
HPI History of Present Illness Chief Complaint: Alt LOC Informant: family and EMS Narrative Narrative: Patient is an 84-year-old female with past medical history of hypertension hypothyroidism paroxysmal atrial fibrillation currently on Eliquis as well as anxiety and depression. Daughter states that patient has not been feeling well for the last day or so and secondary to this she has been calling and checking on her. She reports that when she tried to get a hold of her this evening there was no answer which concerned her. She states secondary to this she went to the patient's house and checked on her and noted she was altered and had an elevated temperature. Therefore with her altered mental status and concern for infection EMS was called and she was brought in for evaluation [facility] Medical History Anxiety and depression Hypothyroidism HLD (hyperlipidemia) GERD (gastroesophageal reflux disease) Chronic anemia Gout Morbid obesity Allergic rhinitis Atrial fibrillation Rheumatoid arthritis Chronic kidney disease, stage 3 Hypertension Home Medications ?Medication ?Instructions ?Recorded ?Last Taken ?Type allopurinol 100 mg tablet 100 mg PO DAILYCM gout 11/12/14 10/11/24 History furosemide 40 mg tablet 20 mg PO DAILY diuretic 11/12/14 Unknown History cholecalciferol (vitamin D3) 1,250 1,250 mcg PO QWEEK supplement 10/12/24 10/10/24 History mcg (50,000 unit) capsule duloxetine 30 mg capsule,delayed 30 mg PO QHS mood 10/12/24 Unknown History release folic acid 1 mg tablet 2 mg PO DAILY supplement 10/12/24 Unknown History levothyroxine 25 mcg tablet 25 mcg PO DAILY disorder of 10/12/24 Unknown History thyroid gland potassium chloride 10 mEq 10 meq PO BID supplement 10/12/24 Unknown History tablet,extended release(part/cryst) (Klor-Con M) rosuvastatin 10 mg tablet 10 mg PO DAILY cholesterol 10/12/24 Unknown History apremilast 30 mg tablet (Otezla) 30 mg PO BID psoriasis 10/13/24 Unknown History famotidine 20 mg tablet (Acid 20 mg PO DAILY gerd 10/13/24 Unknown History Controller) mecobalamin (vitamin B12) 1,000 1,000 mcg PO .OD supplement 10/13/24 Unknown History mcg chewable tablet (B12 Active) vit C 250 mg-vit E 90 mg-zinc 40 1 tab PO DAILY supplement 10/13/24 Unknown History mg-copper 1 [id number] capsule (PreserVision AREDS-2) acetaminophen 325 mg tablet 650 mg (2 x 325 mg) PO Q6H PRN PRN 10/18/24 Unknown Rx Pain 1-10 Or Fever>100.7 #0 tabs apixaban 5 mg tablet (Eliquis) 5 mg PO BID #60 tabs 10/18/24 Unknown Rx losartan 50 mg tablet 50 mg PO DAILY #60 tabs 10/18/24 Unknown Rx metoprolol tartrate 100 mg tablet 100 mg PO BID #60 tabs 10/18/24 Unknown Rx amiodarone 200 mg tablet 200 mg PO DAILY 01/06/25 Unknown History atorvastatin 20 mg tablet 20 mg PO DAILY 06/13/25 Unknown History furosemide 20 mg tablet 20 mg PO DAILY 06/13/25 Unknown History levothyroxine 75 mcg tablet 75 mcg PO DAILY 06/13/25 Unknown History metoprolol tartrate 50 mg tablet 50 mg PO BID 06/13/25 Unknown History Allergy/AdvReac Type Severity Reaction Status Date / Time amlodipine besylate (From Allergy Other Verified 06/12/25 23:24 Norvasc) bumetanide (From Bumex) Allergy Other Verified 06/12/25 23:24 cephalexin monohydrate (From Allergy Hives Verified 06/12/25 23:24 Keflex) colchicine Allergy Hives Verified 06/12/25 23:24 hydrochlorothiazide Allergy Hives Verified 06/12/25 23:24 hydrocortisone acetate (From Allergy Other Verified 06/12/25 23:24 Hydrocortone Acetate) minoxidil Allergy Other Verified 06/12/25 23:24 naproxen Allergy Rash Verified 06/12/25 23:24 ofloxacin (From Floxin) Allergy Shortness Verified 06/12/25 23:24 of breath Penicillins (PCN) Allergy Rash Verified 06/12/25 23:24 Sulfa (Sulfonamide Allergy Rash Verified 06/12/25 23:24 Antibiotics) Family History Son Diabetes CAD (coronary artery disease) Mother Diabetes Father Heart disease Hypertension Prostate cancer Surgical History History of intestinal surgery History of bladder surgery History of partial hysterectomy H/O hernia repair Hx of cholecystectomy Social History household members: none Smoking Status: Never smoker alcohol intake: never substance use type: does not use ROS ROS ED ROS Narrative Unable to obtain review of systems secondary to altered mental status Review of Systems ROS Unobtainable: due to mental status EXAM Physical Exam Const Vital Signs: 06/12/25 23:24 06/12/25 23:32 06/12/25 23:33 Temperature 103.4 F H 103.4 F H Temperature Source Oral Oral Pulse Rate 110 H 114 H Respiratory Rate 37 H 37 H Blood Pressure 152/108 H 152/108 H Blood Pressure Mean 122 122 Pulse Ox 90 93 93 Oxygen Delivery Method Nasal Cannula Nasal Cannula Nasal Cannula Oxygen Flow Rate (L/min) 3 3 3 06/13/25 00:07 06/13/25 00:23 06/13/25 01:00 Temperature 104.9 F H 104.1 F H 103.2 F H Temperature Source Core Core Core Pulse Rate 100 97 109 H Respiratory Rate 37 H 32 H 35 H Blood Pressure 159/72 H 166/81 H 180/74 H Blood Pressure Mean 101 109 109 Pulse Ox 95 100 94 Oxygen Delivery Method Nasal Cannula Nasal Cannula Nasal Cannula Oxygen Flow Rate (L/min) 3 3 6 Positive well nourished and well developed Constitutional Narrative: Patient appears ill General Appearance ED: well developed HEENT HEENT Narrative: Normocephalic atraumatic No tongue or cheek biting noted to suggest seizure activity No airway edema or compromise; no secondary findings in the posterior pharynx to suggest infection Eyes PERRL and EOMs intact bilaterally General Eye ED: Negative for scleral icterus Neck Neck Narrative: No nuchal rigidity or meningeal signs Chest Wall palpation of chest normal Chest Narrative: No bony deformity or subcutaneous emphysema palpated Resp Resp Narrative: Patient is tachypneic and breath sounds are diminished throughout Faint rhonchi noted in the bilateral lower lobes Cardio regular rhythm Rate: tachycardic and other Other Details: Tachycardic rate with regular rhythm Radial and carotid pulses are equal and symmetric GI normal to inspection, nondistended, normoactive bowel sounds, non-tender, non-distended and no masses GI Narrative: Abdomen is soft and nondistended with normal active bowel sounds No pulsatile mass. No fluid wave noted. No rigidity or peritoneal signs Auscultation: normoactive bowel sounds Extremity Extremity Narrative: No signs of long bone injury such as bony deformity or joint effusion Trace to +1 pitting edema is noted in the bilateral lower extremities that is equal and symmetric Neuro Neuro Narrative: Patient is obtunded with GCS of 13 She is not following commands but is able to move all extremities there is no obvious focal neurologic deficit Psych Psych Narrative: Patient has an altered and agitated affect Skin no rashes or lesions noted Sepsis Attestation Sepsis Alert: Yes Sepsis Attestation: Agree w/Sepsis Sepsis Organ Dysfunction Criteria Present: Lactic Acid > 2 mmol/L and New/Unexplained change in mental status Fluid Resuscitation Fluid resuscitation indicated?: Yes Fluid Resuscitation ordered: 30 ml/kg fluid bolus ordered MDM MDM MDM Narrative Medical decision making narrative: Patient arrived to the ER febrile and tachycardic. She had altered mental status but physical exam indicates this is encephalopathy secondary to the fever and potential infection and not from strokelike symptoms and therefore there is no need to activate an acute stroke alert. With her tachycardia and fever and encephalopathy patient is meeting symptoms concerning for sepsis. Therefore blood work with lactic acid blood culture and urine cultures were obtained. Patient was started on 30 mL/kg fluid bolus based on her persistent fever and tachycardia even though she was hypertensive upon arrival. White count is elevated at approximately 27 with absolute neutrophil count elevated at 24 and lactic at 5.4 all correlating with sepsis criteria. Source of infection appears to be the urine. Chest x-ray revealed vascular congestion with questioning infiltrate but family states the patient has not had any significant cough or shortness of breath over the last few days going against this as a source of infection. Based on her multiple medical allergies I elected to initiate treatment with meropenem and vancomycin. Daughter reports a history of chronic kidney disease and creatinine is 1.4 consistent with this but not an elevation consistent with acute kidney injury. There is no report or signs of trauma but she is on Eliquis and with altered mental status there is concern for a potential spontaneous subarachnoid or subdural hemorrhage so I did elect to perform a noncontrast CT of the head. This revealed chronic findings without acute bleed. After receiving IV fluids and antibiotics as well as IV Toradol and rectal Tylenol the patient's temperature was beginning to decrease. However she remained agitated and therefore needed mild sedation with IV Ativan and Benadryl as well as soft restraints to the wrist as she was trying to climb out of bed. At this time her history and exam indicates she has sepsis secondary to a urinary source. With her persistent encephalopathy and agitation and need for close monitoring to ensure she does not require vasopressors or progress to respiratory distress as she was given 3 L of fluid based on her sepsis criteria should be placed in the ICU. The plan of care was discussed with the hospitalist who agrees with this and will except the patient for continued care History & Record Review Discussion w/independent historian: EMS personnel and Family Lab Data Attestation: I reviewed the patient's lab results. Labs: Laboratory Results - last 24 hr 06/12/25 06/12/25 06/12/25 23:29 23:29 23:40 WBC 26.8 H RBC 4.43 Hgb 10.8 L Hct 35.3 L MCV 79.7 L MCH 24.4 L MCHC 30.6 L RDW Std Deviation 75.7 H RDW Coeff of Akin 27.4 H Plt Count 286 MPV 10.8 Immature Gran % (Auto) 2.800 H Neut % (Auto) 89.3 H Lymph % (Auto) 6.8 L Hooker % (Auto) 0.6 Eos % (Auto) 0.2 Baso % (Auto) 0.3 Absolute Neuts (auto) 23.9 H Absolute Lymphs (auto) 1.83 Nucleated RBC % 0 Differential Comment Dohle Bodies 1+ Platelet Estimate ADEQUATE Polychromasia 1+ Anisocytosis 2+ Microcytosis 1+ Target Cells 1+ Acanthocytes (Spur) 1+ PT 20.2 H INR 1.7 APTT 34.3 Sodium 134 Potassium 3.5 Chloride 99 Carbon Dioxide 17.0 L Anion Gap 18 H BUN 20 H Creatinine 1.44 H Estim Creat Clear Calc 32.83 L Est GFR (MDRD) Non-Af 36 L BUN/Creatinine Ratio 14.2 Glucose 172 H Lactic Acid 5.4 H* Calcium 8.8 Phosphorus 2.2 L Magnesium 1.6 Cancelled Total Bilirubin 1.20 Direct Bilirubin 0.48 H AST 62 H ALT 37 H Alkaline Phosphatase 101 Ammonia 21.0 Total Protein 7.9 Albumin 3.7 Globulin 4.2 Albumin/Globulin Ratio 0.9 TSH 1.120 Urine Color Yellow Urine Clarity Sl. Cloudy Urine pH 6.0 Ur Specific Windber 1.015 Urine Protein 500 H Urine Glucose (UA) Normal Urine Ketones Negative Urine Occult Blood 50 H Urine Nitrite Positive H Urine Bilirubin Negative Urine Urobilinogen Normal Ur Leukocyte Esterase 100 H Urine RBC 0-5 SEEN Urine WBC 50-100 SEEN Ur Squamous Epith Cells 0-5 SEEN Urine Bacteria 3+ Urine Mucus 0 SEEN Radiography Diagnostic Testing: Clinical Impression(s) from Imaging Studies Chest X-Ray 06/12/25 23:59 IMPRESSION: Cardiomegaly. Moderate central pulmonary venous congestion. Airspace disease in the left lower lobe. Hypoventilatory pulmonary changes and/or developing pneumonia. Reading Location: [place] [id number] 1 view chest x-ray as interpreted by the emergency medicine physician reveals cardiomegaly with pulmonary vascular congestion but no acute infiltrate noted Management Discussion w/another healthcare provider: Hospitalist Critical Care Time Critical Care Time: Yes Critical care time (excluding procedures): Discussing w/Patient &/or Family/Surgical Supply Assistant, Discussing w/Consultants, Arranging Admission or Transfer and - (Please note critical care time of 37 minutes) Discharge Plan Dx/Rx/DC Orders Clinical Impression: UTI (urinary tract infection), Hypertension, Sepsis, Encephalopathy, Leukocytosis, Current use of [employer] anticoagulation, Pyrexia, Paroxysmal atrial fibrillation Disposition Disposition: Acute Care Hospital [facility] Discharge Date/Time: 06/13/25 02:40
--- OUTSIDE RECORDS SUMMARY | 2025-06-13 02:21 | XMS RPT_ITS | CCD ---
Author Organization [facility] [place] [facility] Care Team Providers Care Quantitative Manager Name Role Phone Atul Harvey DO Primary Care Provider Teresita RN, Katja Unavailable Atul Harvey DO Primary Care Provider Satish RN, Mitesh Unavailable Teresita RN, Katja Unavailable Satish GARCIA, Mitesh Unavailable Teresita RN, Katja Unavailable Atul Harvey DO Primary Care Provider Satish GARCIA, Mitesh Thelma Unavailable Satish RN, Mitesh Thelma Unavailable Aleksander CENTRAL LAB TECHNICIAN.Milana DUARTE Unavailable Ramírez CENTRAL LAB TECHNICIAN.Catalina DUARTE Unavailable Eric RN, Kirstin Unavailable Eric [...] Lydia HENDERSON, Dr. Daniel Emergency Provider Armijo CENTRAL LAB TECHNICIAN.EPOXY SPECIALIST, Milana Allyssa Unavailable LEONEL SMALL Admitting Unavailable COURTNEY HUTCHISON Attending Unavailable CATALINA RUIZ Consulting Unavailabl e ATUL HARVEY Primary Care Unavailable Wes HENDERSON, Dr. Pollard Primary Care Provider Lydia HENDERSON, Dr. Daniel Attending Provider Tate Reynolds MD Attending Provider UnavailTate Diaz MD Referring Provider Unavaila ble Blaise CENTRAL LAB TECHNICIAN.EPOXY SPECIALIST, Pinky Alston Unavailable Wes HENDERSON, Dr. Pollard Primary Care Provider [phone] Lori Herndon Attending Provider Jovita CERVANTES, Dr. Burks Attending [...] Unavailable Doug Tubbs Consulting Unavailable Doug Tubbs Attending Unavailable Doug Tubbs Admitting Unavailable Dea Serna Attending Unavailable Mario Hagen Consulting Unavailable Rasheed Ledezma Consulting Unavailable Harvey, Atul Primary Care Unavailable Mario Hagen Attending Unavailable Mario Hagen Attending Unavailable Yuri Meier Referring Unavailable Harvey, Atul Primary Care Unavailable Doug Tubbs Consulting Unavailable Doug Tubbs Admitting Unavailable Rasheed Ledezma Attending Unavailable Ahmet Hagenril Consulting Unavailable Kimmie Hussein Attending Unavailable Jovita, Kimmie Referring Unavailable Harvey, Atul Primary Care Unavailable Rasheed Ledezma Attending Unavailable Harvey, Atul Primary Care Unavailable Fredy Freeman Attending Unavailable Carmelalanyung, Kimmie Attending Unavailable Carmelalanki, Kimmie Referring Unavailable Harvey, Atul Primary Care Unavailable Olebare ANDRE Efewongbe Attending Unavailabl e Oleghe ANDRE, Efewongbe Referring Unavailabl e Harvey, Atul Primary Care Unavailable Oleghe OLS Efewongbe Attending Unavailabl e Harvey, Atul Primary Care Unavailable Jovita, Kimmie Attending Unavailable Jovita, Kimmie Referring Unavailable Harvey, Atul Primary Care Unavailable Lori Nuñez Attending Unavailable Harvey, Atul Primary Care Unavailable HarveyAtul Primary Care Unavailable Tate Reynolds Attending Unavailable Lori Nuñez Attending Unavailable HarveyAtul Primary Care Unavailable Lori Nuñez Attending Unavailable Harvey, Atul Primary Care Unavailable Kimmie Hussein Referring Unavailable Kimmie Hussein Attending Unavailable Harvey, Atul Primary Care Unavailable Harvey, Atul Primary Care Unavailable Darryl Vargas Attending Unavailable Allergies Allergy Classification Reported Allergen(s) Allergy Type Date of Onset Reaction(s) Facility amLODIPine (4 sources) amLODIPine Drug Allergy Intolerance [facility] Bumetanide (4 sources) Bumetanide Drug Allergy Intolerance [facility] Cephalosporins (antibiotic) (4 sources) Cephalexin Drug Allergy Rash [facility] Colchicine (4 sources) Colchicine Drug Allergy [facility] Work Phone: Corticosteroids (4 sources) Hydrocortisone Drug Allergy Intolerance [facility] hydroCHLOROthiazide (4 sources) hydroCHLOROthiazide Drug Allergy Rash, Intolerance [facility] Minoxidil (4 sources) Minoxidil Drug Allergy 011 Other: See Comments [facility] NSAIDs (4 sources) Naproxen Drug Allergy Rash, Hives [facility] Penicillins (antibiotic) (4 sources) Penicillins Drug Allergy Intolerance [facility] Work Phone: Quinolones (antibiotic) (4 sources) Ofloxacin Drug Allergy Anaphylaxis [facility] Sulfonamides (antibiotic) (4 sources) Sulfonamides (Antibiotic) Drug Allergy Rash, GI Upset [facility] (20 sources) amLODIPine; Translations: [AMLODIPINE BESYLATE] Drug Allergy Intolerance [facility] (20 sources) Bumetanide; Translations: [BUMETANIDE] Drug Allergy Intolerance [facility] (20 sources) Cephalexin; Translations: [CEPHALEXIN] Drug Allergy Rash [facility] (20 sources) Colchicine; Translations: [COLCHICINE] Drug Allergy [facility] Work Phone: (20 sources) hydroCHLOROthiazide; Translations: [HYDROCHLOROTHIAZIDE] Drug Allergy Rash, Intolerance [facility] (20 sources) Hydrocortisone; Translations: [HYDROCORTISONE ACETATE] Drug Allergy Intolerance [facility] (20 sources) Minoxidil; Translations: [MINOXIDIL] Drug Allergy 011 Other: See Comments [facility] (20 sources) Naproxen; Translations: [NAPROXEN] Drug Allergy 005 Rash, Hives [facility] (20 sources) Ofloxacin; Translations: [OFLOXACIN] Drug Allergy Anaphylaxis [facility] (15 sources) Penicillins; Translations: [PENICILLINS] Drug Intolerance Intolerance [facility] Work Phone: (20 sources) Sulfonamides (Antibiotic); Translations: [SULFA (SULFONAMIDE ANTIBIOTICS)] Drug Allergy Rash, GI Upset [facility] (16 sources) Cephalexin; Translations: [cephalexin monohydrate] Drug Allergy 017 [facility] (20 sources) Penicillins Drug Intolerance Intolerance [facility] Work Phone: (14 sources) Penicillins Allergy to substance 017 [facility] (14 sources) Sulfonamides (Antibiotic) Allergy to substance 015 [facility] (5 sources) amLODIPine Drug Allergy 023 [facility] (18 sources) Penicillins Drug Intolerance 005 Intolerance [facility] (1 source) amLODIPine Drug Allergy [facility] Rep[facility] (1 source) Bumetanide Drug Allergy [facility] (1 source) Colchicine Drug Allergy [facility] (1 source) hydroCHLOROthiazide Drug Allergy [facility] (1 source) Hydrocortisone Drug Allergy [facility] (1 source) Minoxidil Drug Allergy 025 [facility] (1 source) Naproxen Drug Allergy [facility] (1 source) Ofloxacin Drug Allergy 025 [facility] (1 source) Penicillins Drug allergy (disorder) 025 [facility] (1 source) Sulfonamides (Antibiotic) Drug allergy (disorder) 025 [facility] Rep[facility] Medications Current Medications Medication Drug Class(es) [...] daily in the morning Vit A,C and B-Vdgojd-Tveecgem (OCUVITE WITH LUTEIN) 300 mcg-200 mg-27 mg-2 [...] Discontinued Start: 06-29-2015 [facility] Cholecalciferol (Vitamin D3) (Vitamin D3) [...] cramping docusate sodium 50 mg / sennosides, detention 8.6 mg oral tablet (16 sources) Start: [...] Comment on above: Take 2 tablets by [facility] once daily. TAKE 2 TABLETS BY [facility] EVERY DAY furosemide 20 mg oral [...] Comment on above: Take 1 tablet by [facility] once daily. hydrocortisone probutate 1 mg/ml topical [...] Comment on above: Take 1 capsule by [facility] twice daily for 5 days. nystatin 100 [...] 10 mL injection (DEFINITY) polyethylene glycol 3350 62014 mg powder for oral solution (20 sources) [...] above: Take by mouth twice daily. Vit C,V-Ry-Jbyux-Lutei n-Zeaxan (Preservision Areds-2) 250-90-40-1 mg capsule (9 sources) Start: 10-13-2024 take 2 capsules by mouth once daily Vit C,O-Ct-Cdnbz-Lutein- Zeaxan (Preservision Areds-2) 250-90-40-1 mg capsule Active 1 {tbl} PO DAILY October 13, 2024 1:00am supplement Start: 10-13-2024 take 2 capsules by m outh once daily Vit C,J-Pb-Bmjgi-Lutein-Zeaxan (Preservision Areds-2) 250-90-40-1 mg capsule Active 1 [...] on above: Take 1,000 mcg by mo [facility] once daily. Completed/Discontinued Medications Medication Drug Class(es) [...] on above: Take 1 capsule by mo [facility] twice daily. 1/2 hour before meals. 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, [address] CBC W/Diff, Automatedon ACANTHOCYTE 1+ Normal [facility] Comment on above: Performed By: #### L 100.0100, L503.6005, L503.5510, L300.3900, L300.4310, L500.3400, L500.4050, L501.5200, L501.9520 #### [facility] [address] [place], [place], [id number] Anisocytosis Ql (Bld) 2+ Normal [facility] Comment on above: Performed By: #### L 100.0100, L503.6005, L503.5510, L300.3900, L300.4310, L500.3400, L500.4050, L501.5200, L501.9520 #### [facility] [address] [place], [place], [id number] ([address] MICROCYTIC 1+ Normal [facility] Comment on above: Performed By: #### L 100.0100, L503.6005, L503.5510, L300.3900, L300.4310, L500.3400, L500.4050, L501.5200, L501.9520 #### [facility] [address] [place], [address] POLYCHROMASIA 1+ Normal [facility] Comment on above: Performed By: #### L 100.0100, L503.6005, L503.5510, L300.3900, L300.4310, L500.3400, L500.4050, L501.5200, L501.9520 #### [facility] [address] [place], [address] TARGET CELLS 1+ Normal [facility] Comment on above: Performed By: #### L 100.0100, L503.6005, L503.5510, L300.3900, L300.4310, L500.3400, L500.4050, L501.5200, L501.9520 #### [facility] [address] [place], [address] DOHLE BODIES 1+ Normal [facility] Comment on above: Performed By: #### L 100.0100, L503.6005, L503.5510, L300.3900, L300.4310, L500.3400, L500.4050, L501.5200, L501.9520 #### [facility] [address] [place], [address] PLT EST ADEQUATE Normal ADEQ [facility] Comment on above: Performed By: #### L 100.0100, L503.6005, L503.5510, L300.3900, L300.4310, L500.3400, L500.4050, L501.5200, L501.9520 #### [facility] [address] [place], [address] SMEAR COMMENT Normal [facility] Comment on above: Result Comment: 1+ B ANDS Performed By: #### L 100.0100, L503.6005, L503.5510, L300.3900, L300.4310, L500.3400, L500.4050, L501.5200, L501.9520 #### [facility] [address] [place], [address] Comprehensive Metabolic Prof ilon 06-13-2025 Albumin/Globulin [Mass ratio] 0.9 {ratio} Normal 0.9-2.4 [facility] Comment on above: Performed By: #### L 100.0100, L500.4050 #### [facility] [address] [place], [address] BUN/CRE 14.2 RATIO Normal 10-20 [facility] Comment on above: Performed By: #### L 100.0100, L500.4050 #### [facility] [address] [place], [address] Calcium [Mass/Vol] 8.8 mg/dL Normal 7.6-11.0 [facility] Comment on above: Performed By: #### L 100.0100, L500.4050 #### [facility] [address] [place], [address] Chloride [Moles/Vol] 99 mmol/L Normal 98-108 [facility] Comment on above: Performed By: #### L 100.0100, L500.4050 #### [facility] [address] [place], [address] CO2 [Moles/Vol] 17.0 mmol/L Low 21.0-32.0 [facility] Comment on above: Performed By: #### L 100.0100, L500.4050 #### [facility] [address] [place], [address] Creatinine [Mass/Vol] 1.44 mg/dL High 0.70-1.20 [facility] Comment on above: Performed By: #### L 100.0100, L500.4050 #### [facility] [address] [place], [address] ECRCL 32.83 ml/min Low 50-250 [facility] Comment on above: Performed By: #### L 100.0100, L500.4050 #### [facility] [address] [place], [address] GAP 18 High 5-15 [facility] Comment on above: Performed By: #### L 100.0100, L500.4050 #### [facility] [address] [place], [address] GFR/1.73 sq M.predicted among non-blacks MDRD (S/P/Bld) [Vol rate/Area] 36 mL/min/{1.73_m2} Low >60 [facility] Comment on above: Result Comment: mL/m in/1.73m2 CKD-EPI Creatinine Equation (2020) Performed By: #### L 100.0100, L500.4050 #### [facility] [address] [place], [address] Glucose [Mass/Vol] 172 mg/dL High 70-99 [facility] Comment on above: Performed By: #### L 100.0100, L500.4050 #### [facility] [address] [place], [address] Potassium [Moles/Vol] 3.5 mmol/L Normal 3.3-5.1 [facility] Comment on above: Result Comment: Hemo lysis present, Results??could be affected. ?? Performed By: #### L 100.0100, L500.4050 #### [facility] [address] [place], [address] Sodium [Moles/Vol] 134 mmol/L Normal 133-145 [facility] Comment on above: Performed By: #### L 100.0100, L500.4050 #### [facility] [address] [place], [address] Urea nitrogen [Mass/Vol] 20 mg/dL High 4-19 [facility] Comment on above: Performed By: #### L 100.0100, L500.4050 #### [facility] [address] [place], [address] Lactic Acidon 06-13-2025 Lactate [Moles/Vol] 5.4 mmol/L Invalid Interpretation Code 0.0-2.0 [facility] Comment on above: Order Comment: Y Result Comment: Crit ical Result(s) Called at: 0007 by:??VIDHI BLOOM TO JOSE SO. Results read back by same. Performed By: #### L 100.0100, L503.6005, L503.5510, L300.3900, L300.4310, L500.3400, L500.4050, L501.5200, L501.9520 #### [facility] [address] [place], [address] Liver Profileon 06-13-2025 Albumin [Mass/Vol] 3.7 g/dL Normal 3.4-4.8 [facility] Comment on above: Performed By: #### L 100.0100, L500.4050 #### [facility] [address] [place], [address] ALK PHOS 101 U/L Normal 35-104 [facility] Comment on above: Performed By: #### L 100.0100, L500.4050 #### [facility] [address] [place], [address] ALT [Catalytic activity/Vol] 37 U/L High <=34 [facility] Comment on above: Performed By: #### L 100.0100, L500.4050 #### [facility] [address] [place], [address] AST [Catalytic activity/Vol] 62 U/L High <=31 [facility] Comment on above: Result Comment: Hemo lysis present, Results??could be affected. ?? Performed By: #### L 100.0100, L500.4050 #### [facility] [address] [place], [address] Bilirubin [Mass/Vol] 1.20 mg/dL Normal 0.00-1.30 [facility] Comment on above: Performed By: #### L 100.0100, L500.4050 #### [facility] [address] [place], [address] Bilirubin.direct [Mass/Vol] 0.48 mg/dL High 0.00-0.30 [facility] Comment on above: Result Comment: Hemo lysis present, Results??could be affected. ?? Performed By: #### L 100.0100, L500.4050 #### [facility] [address] [place], [address] Globulin (S) [Mass/Vol] 4.2 g/dL Normal 2.2-4.2 [facility] Comment on above: Performed By: #### L 100.0100, L500.4050 #### [facility] [address] [place], [address] T PROT 7.9 g/dL Normal 5.9-8.4 [facility] Comment on above: Performed By: #### L 100.0100, L500.4050 #### [facility] [address] [place], [address] M100.678on 06-13-2025 M100.678 SARS-CoV-2 (COVID 19 ) Negative INFLUENZA A Negative INFLUENZA B Negative RSV PCR Negative Normal [facility] Comment on above: Performed By: #### L 400.0001, M100.678 #### [facility] [address] [place], [address] Magnesiumon 06-13-2025 Magnesium [Mass/Vol] 1.6 mg/dL Normal 1.5-2.2 [facility] Comment on above: Performed By: #### L 100.0100, L500.4050 #### [facility] [address], [address] Thyroid Stim Hormone (TSH)on 06-13-2025 TSH 1.120 uIU/mL Normal 0.300-4.200 [facility] Comment on above: Performed By: #### L 100.0100, L500.4050 #### [facility] [address] [place], [address] Urinalysis, Completeon 06-13 BACTERIA 3+ /hpf Normal None Seen [facility] Comment on above: Order Comment: COLLE CTOR TO SPECIFY Performed By: #### L 400.0001, M100.678 #### [facility] [address] [place], [address] EPI,SQUAMOUS 0-5 SEEN Normal 5-10 [facility] Comment on above: Order Comment: COLLE CTOR TO SPECIFY Performed By: #### L 400.0001, M100.678 #### [facility] [address] [place], [address] RBC 0-5 SEEN Normal 0-5 [facility] Comment on above: Order Comment: COLLE CTOR TO SPECIFY Performed By: #### L 400.0001, M100.678 #### [facility] [address] [place], [address] WBC 50-100 SEEN Normal 0-5 [facility] Comment on above: Order Comment: COLLE CTOR TO SPECIFY Performed By: #### L 400.0001, M100.678 #### [facility] [address] [place], [address] Partial Thromboplast Timeon 06-12-2025 aPTT Coag (Bld) [Time] 34.3 s Normal 24.1-36.2 [facility] Comment on above: Performed By: #### L 100.0100, L503.6005, L503.5510, L300.3900, L300.4310, L500.3400, L500.4050, L501.5200, L501.9520 #### [facility] [address] [place], [place], [id number] Prothrombin Time w/INRon INR Coag (PPP) [Relative time] 1.7 {INR} Normal [facility] Comment on above: Performed By: #### L 100.0100, L503.6005, L503.5510, L300.3900, L300.4310, L500.3400, L500.4050, L501.5200, L501.9520 #### [facility] [address] [place], [place], [id number] PT Coag (PPP) [Time] 20.2 s High 11.7-14.9 [facility] Comment on above: Performed By: #### L 100.0100, L503.6005, L503.5510, L300.3900, L300.4310, L500.3400, L500.4050, L501.5200, L501.9520 #### [facility] [address] [place], [place], [id number] Urinalysis, Completeon 06-12 Mucus Ql (Urine sed) 0 SEEN Normal [facility] Comment on above: Order Comment: COLLE CTOR TO SPECIFY Performed By: #### L 400.0001, M100.678 #### [facility] [address] [place], [place], [id number] CNOVon 05-22-2025 [facility] MARY CRANE ([id number]) 1940 F TXT Date Time Provider Department 05/22/25 1:40 PM ATUL HARVEYPANTONY During your visit today, we recorded the [...] on anticoagulant Eliquis with referral to the Welding Operator. Then later fell against her left side and then 2-3 weeks after this fell when she tripped over her cat- falling against her left side. She was assessed by [place] [facility] and had xrays to make [...] to another hospital for potential surgery at [facility]. 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 Last saw Welding Operator in Oct at [facility]- he is managing the blood thinners. Bowel health is back to normal- denies constipation Mood, stable, has a lot of support from her family She transported to [facility] for 11 days after discharge from the [...] Still with fatigue symptoms Recently saw her Cone Tender for her inflammatory arthritis, was found to [...] multiple adenomatous polyps, repeat in 3 yrs ESOPHAGOGASTRODUODENO SCOPY TRANSORAL DIAGNOSTIC 12/21/2014 EGD LAPAROSCOPY SURG CHOLECYSTECTOMY [...] mg tablet (more content not included)... Normal [facility] CBC panel Auto (Bld)on 05-18 Erythrocyte distribution width (RBC) [Ratio] 20.4 % High 11.5-15.0 [facility] Comment on above: Order Comment: Speci men Type: BLOOD SPECIMEN Ordering Facility: [facility] Address: [address] [place] [address] Performed By: #### 5 8410-2 #### [facility] CLIA [id number] [address] [place] [address] [place] Hematocrit (Bld) [Volume fraction] 34.0 % Low 36.0-46.0 [facility] Comment on above: Order Comment: Speci men Type: BLOOD SPECIMEN Ordering Facility: [facility] Address: [address] [place] [address] Performed By: #### 5 8410-2 #### [facility] CLIA [id number] [address] [place] [address] [place] Hemoglobin (Bld) [Mass/Vol] 9.9 g/dL Low 11.5-15.5 [facility] Comment on above: Order Comment: Speci men Type: BLOOD SPECIMEN Ordering Facility: [facility] Address: [address] [place] [address] Performed By: #### 5 8410-2 #### [facility] CLIA [id number] [address] [place] [address] [place] MCH (RBC) [Entitic mass] 22.0 pg Low 26.0-34.0 [facility] Comment on above: Order Comment: Speci men Type: BLOOD SPECIMEN Ordering Facility: [facility] Address: [address] [place] [address] Performed By: #### 5 8410-2 #### [facility] CLIA [id number] [address] [place] [address] [place] MCHC (RBC) [Mass/Vol] 29.1 g/dL Low 30.5-36.0 [facility] Comment on above: Order Comment: Speci men Type: BLOOD SPECIMEN Ordering Facility: [facility] Address: [address] [place] [address] Performed By: #### 5 8410-2 #### [facility] CLIA [id number] [address] [place] [address] [place] MCV (RBC) [Entitic vol] 75.7 fL Low 80.0-100.0 [facility] Comment on above: Order Comment: Speci men Type: BLOOD SPECIMEN Ordering Facility: [facility] Address: [address] [place] [address] Performed By: #### 5 8410-2 #### [facility] CLIA [id number] [address] [place] [address] [place] Nucleated RBC (Bld) [#/Vol] 10*3/uL Normal <0.01 [facility] Comment on above: Order Comment: Speci men Type: BLOOD SPECIMEN Ordering Facility: [facility] Address: [address] [place] [address] Performed By: #### 5 8410-2 #### [facility] CLIA [id number] [address] [place] [address] [place] Platelet mean volume (Bld) [Entitic vol] 11.2 fL Normal 9.0-12.7 [facility] Comment on above: Order Comment: Speci men Type: BLOOD SPECIMEN Ordering Facility: [facility] Address: [address] [place] [address] Performed By: #### 5 8410-2 #### [facility] CLIA [id number] [address] [place] [address] [place] Platelets (Bld) [#/Vol] 400 10*3/uL Normal 150-400 [facility] Comment on above: Order Comment: Speci men Type: BLOOD SPECIMEN Ordering Facility: [facility] Address: [address] [place] [address] Performed By: #### 5 8410-2 #### [facility] CLIA [id number] [address] [place] [address] [place] RBC (Bld) [#/Vol] 4.49 10*6/uL Normal 3.90-5.20 [facility] Comment on above: Order Comment: Speci men Type: BLOOD SPECIMEN Ordering Facility: [facility] Address: [address] [place] [address] Performed By: #### 5 8410-2 #### [facility] CLIA [id number] [address] [place] [address] [place] WBC (Bld) [#/Vol] 9.11 10*3/uL Normal 3.70-11.00 [facility] Comment on above: Order Comment: Speci men Type: BLOOD SPECIMEN Ordering Facility: [facility] Address: [address] [place] [address] Performed By: #### 5 8410-2 #### [facility] CLIA [id number] [address] [place] [address] [place] Comprehensive metabolic 2000 panelon 05-18-2025 Albumin [Mass/Vol] 3.7 g/dL Low 3.9-4.9 [facility] Comment on above: Order Comment: Speci men Type: BLOOD SPECIMEN Ordering Facility: [facility] Address: [address] [place] [address] Performed By: #### 2 4323-8, 3016-3, 47669-3, 3024-7 #### [facility] CLIA [id number] [address] [place] [address] [place] ALP [Catalytic activity/Vol] 94 U/L Normal 34-123 [facility] Comment on above: Order Comment: Speci men Type: BLOOD SPECIMEN Ordering Facility: [facility] Address: [address] [place] [address] Performed By: #### 2 4323-8, 3016-3, 37721-0, 3024-7 #### [facility] CLIA [id number] [address] [place] [address] [place] ALT [Catalytic activity/Vol] 23 U/L Normal 7-38 [facility] Comment on above: Order Comment: Speci men Type: BLOOD SPECIMEN Ordering Facility: [facility] Address: [address] [place] [address] Performed By: #### 2 4323-8, 3016-3, 97827-8, 3024-7 #### [facility] CLIA [id number] [address] [place] [address] [place] Anion gap [Moles/Vol] 13 mmol/L Normal 8-15 [facility] Comment on above: Order Comment: Speci men Type: BLOOD SPECIMEN Ordering Facility: [facility] Address: [address] [place] [address] Performed By: #### 2 4323-8, 3016-3, 51894-4, 3024-7 #### [facility] CLIA [id number] [address] [place] [address] [place] AST [Catalytic activity/Vol] 34 U/L Normal 13-35 [facility] Comment on above: Order Comment: Speci men Type: BLOOD SPECIMEN Ordering Facility: [facility] Address: [address] [place] [address] Performed By: #### 2 4323-8, 3016-3, 79629-5, 3024-7 #### [facility] CLIA [id number] [address] [place] [address] [place] Bilirubin [Mass/Vol] 0.6 mg/dL Normal 0.2-1.3 [facility] Comment on above: Order Comment: Speci men Type: BLOOD SPECIMEN Ordering Facility: [facility] Address: [address] [place] [address] Performed By: #### 2 4323-8, 3016-3, 42062-7, 3024-7 #### [facility] CLIA [id number] [address] [place] [address] [place] Calcium [Mass/Vol] 9.7 mg/dL Normal 8.5-10.2 [facility] Comment on above: Order Comment: Speci men Type: BLOOD SPECIMEN Ordering Facility: [facility] Address: [address] [place] [address] Performed By: #### 2 4323-8, 3016-3, 26309-2, 3024-7 #### [facility] CLIA [id number] [address] [place] [address] [place] Chloride [Moles/Vol] 100 mmol/L Normal 98-107 [facility] Comment on above: Order Comment: Speci men Type: BLOOD SPECIMEN Ordering Facility: [facility] Address: [address] [place] [address] Performed By: #### 2 4323-8, 3016-3, 35851-7, 3024-7 #### [facility] CLIA [id number] [address] [place] [address] [place] CO2 [Moles/Vol] 24 mmol/L Normal 22-30 [facility] Comment on above: Order Comment: Speci men Type: BLOOD SPECIMEN Ordering Facility: [facility] Address: [address] [place] [address] Performed By: #### 2 4323-8, 3016-3, 60803-4, 3024-7 #### [facility] CLIA [id number] [address] [place] [address] [place] Creatinine [Mass/Vol] 1.22 mg/dL High 0.58-0.96 [facility] Comment on above: Order Comment: Adelita austin Type: BLOOD SPECIMEN Ordering Facility: [facility] Address: [address] [place] [address] Performed By: #### 2 4323-8, 3016-3, 90782-9, 3024-7 #### [facility] CLIA [id number] [address] [place] [address] [place] eGFRcr SerPlBld CKD-EPI 2020 44 mL/min/1.73m??? Low >=60 [facility] Comment on above: Order Comment: Adelita austin Type: BLOOD SPECIMEN Ordering Facility: [facility] Address: [address] [place] [address] Result Comment: Ely mated Glomerular Filtration Rate [...] GFR. Performed By: #### 2 4323-8, 3016-3, 21882-5, 3024-7 #### [facility] CLIA [id number] [address] [place] [address] [place] Glucose [Mass/Vol] 81 mg/dL Normal 74-99 [facility] Comment on above: Order Comment: Adelita austin Type: BLOOD SPECIMEN Ordering Facility: [facility] Address: [address] [place] [address] Result Comment: The [place] [employer] (ADA) provides guidance for cutoff [...] Standards of Medical Care in Diabetes 2016, [place] [employer]. Diabetes Care. 2016.39(Suppl 1). Performed By: #### 2 4323-8, 3016-3, 40374-3, 4-7 #### [facility] CLIA [id number] [address] [place] [address] [place] Potassium [Moles/Vol] 4.4 mmol/L Normal 3.7-5.1 [facility] Comment on above: Order Comment: Adelita austin Type: BLOOD SPECIMEN Ordering Facility: [facility] Address: [address] [place] [address] Performed By: #### 2 4323-8, 6-3, 93956-7, 3023-7 #### [facility] CLIA [id number] [address] [place] [address] [place] Protein [Mass/Vol] 7.9 g/dL Normal 6.3-8.0 [facility] Comment on above: Order Comment: Adelita austin Type: BLOOD SPECIMEN Ordering Facility: [facility] Address: [address] [place] [address] Performed By: #### 2 4323-8, 6-3, 68451-4, 7 #### [facility] CLIA [id number] [address] [place], [place] [address] [place] Sodium [Moles/Vol] 137 mmol/L Normal 136-144 [facility] Comment on above: Order Comment: Adelita austin Type: BLOOD SPECIMEN Ordering Facility: [facility] Address: [address] [place] [address] Performed By: #### 2 4323-8, 3016-3, 13733-4, 3023-7 #### [facility] CLIA [id number] [address] [place], [place] [address] [place] Urea nitrogen [Mass/Vol] 18 mg/dL Normal 7-21 [facility] Comment on above: Order Comment: Speci men Type: BLOOD SPECIMEN Ordering Facility: [facility] Address: [address] [place] [address] Performed By: #### 2 4323-8, 3016-3, 77371-0, 3024-7 #### [facility] CLIA [id number] [address] [place] [address] [place] Iron and Iron binding capaci ty panelon 05-18-2025 Iron [Mass/Vol] 25 ug/dL Low 41-186 [facility] Comment on above: Order Comment: Speci men Type: BLOOD SPECIMEN Ordering Facility: [facility] Address: [address] [place] [address] Performed By: #### 2 4323-8, 3016-3, 49848-1, 3024-7 #### [facility] CLIA [id number] [address] [place] [address] [place] Iron binding capacity [Mass/Vol] 398 ug/dL High 232-386 [facility] Comment on above: Order Comment: Speci men Type: BLOOD SPECIMEN Ordering Facility: [facility] Address: [address] [place] [address] Performed By: #### 2 4323-8, 3016-3, 94266-3, 3024-7 #### [facility] CLIA [id number] [address] [place] [address] [place] Iron/TIBC [Molar ratio] 6.3 % Low 15.0-57.0 [facility] Comment on above: Order Comment: Speci men Type: BLOOD SPECIMEN Ordering Facility: [facility] Address: [address] [place] [address] Performed By: #### 2 4323-8, 3016-3, 85548-7, 3024-7 #### [facility] CLIA [id number] [address] [place] [address] [place] T4 Free SerPl-mCncon 025 Free T4 [Mass/Vol] 1.9 ng/dL High 0.9-1.7 [facility] Comment on above: Order Comment: Speci men Type: BLOOD SPECIMEN Ordering Facility: [facility] Address: [address] [place] [address] Performed By: #### 2 4323-8, 3016-3, 88293-1, 3024-7 #### [facility] CLIA [id number] [address] [place] [address] [place] TSH SerPl-aCncon 05-18-2025 TSH Qn 1.340 m[IU]/L Normal 0.270-4.200 [facility] Comment on above: Order Comment: Speci men Type: BLOOD SPECIMEN Ordering Facility: [facility] Address: [address] [place] [address] Performed By: #### 2 4323-8, 3016-3, 95501-6, 3024-7 #### [facility] CLIA [id number] [address] [place] [address] [place] Absolute lymphocyte countOrd ered By: Kimmie Hussein on 05-08-2025 Lymphocytes Auto (Unsp spec) [#/Vol] 4.49 10*3/uL 0.83-4.51 [facility] Absolute neutrophil countOrd ered By: Kimmie Hussein on 05-08-2025 Neutrophils (Bld) [#/Vol] 4.2 10*3/uL 2.0-7.7 [facility] Anion gap in Serum or Plasma Ordered By: Kimmie Hussein on 05-08-2025 Anion gap [Moles/Vol] 10 mmol/L 5-15 [facility] Automated lymphocyte count a s percentage of total leukocytesOrdered By: Kimmie Hussein on 05-08-2025 Lymphocytes/100 WBC Auto (Unsp spec) 45.3 % High 19-41 [facility] BUN/creatinine ratioOrdered By: Kimmie Hussein on 05-08-2025 Urea nitrogen/Creatinine [Mass ratio] 13.4 mg/mg 10-20 [facility] Basophil percentageOrdered B y: Kimmie Hussein on 05-08-2025 Basophils/100 WBC (Bld) 1.2 % High 0-1 [facility] Bilirubin, totalOrdered By: Kimmie Hussein on 05-08-2025 Bilirubin [Mass/Vol] 0.55 mg/dL 0.00-1.30 [facility] CBC W/Diff, Automatedon 04-12 Absolute Lymph 4.49 X10 3/uL Normal 0.83-4.51 [facility] Comment on above: Performed By: #### L 100.0100, L503.6005, L503.5510, L300.3900, L300.4310, L500.3400, L500.4050, L501.5200, L501.9520 #### [facility] [address] [place], [address] Absolute Neut 4.2 X10 3/uL Normal 2.0-7.7 [facility] Comment on above: Performed By: #### L 100.0100, L503.6005, L503.5510, L300.3900, L300.4310, L500.3400, L500.4050, L501.5200, L501.9520 #### [facility] [address] [place], [address] Basophils/100 WBC (Bld) 1.2 % High 0-1 [facility] Comment on above: Performed By: #### L 100.0100, L503.6005, L503.5510, L300.3900, L300.4310, L500.3400, L500.4050, L501.5200, L501.9520 #### [facility] [address] [place], [address] Eosinophils/100 WBC (Bld) 1.5 % Normal 0-5 [facility] Comment on above: Performed By: #### L 100.0100, L503.6005, L503.5510, L300.3900, L300.4310, L500.3400, L500.4050, L501.5200, L501.9520 #### [facility] [address] [place], [address] Erythrocyte distribution width (RBC) [Ratio] 19.2 % High 11.6-14.6 [facility] Comment on above: Performed By: #### L 100.0100, L503.6005, L503.5510, L300.3900, L300.4310, L500.3400, L500.4050, L501.5200, L501.9520 #### [facility] [address] [place], [address] Hematocrit (Bld) [Volume fraction] 33.9 % Low 37-47 [facility] Comment on above: Performed By: #### L 100.0100, L503.6005, L503.5510, L300.3900, L300.4310, L500.3400, L500.4050, L501.5200, L501.9520 #### [facility] [address] [place], [address] Hemoglobin (Bld) [Mass/Vol] 9.9 g/dL Low 12.0-15.0 [facility] Comment on above: Performed By: #### L 100.0100, L503.6005, L503.5510, L300.3900, L300.4310, L500.3400, L500.4050, L501.5200, L501.9520 #### [facility] [address] [place], [address] IG% 0.300 Normal 0.0-0.9 [facility] Comment on above: Result Comment: IG% - Immature Granulocytes (promyelocytes, myelocytes and metamyelocytes) > 1% indicates that a LEFT SHIFT is Present. Performed By: #### L 100.0100, L503.6005, L503.5510, L300.3900, L300.4310, L500.3400, L500.4050, L501.5200, L501.9520 #### [facility] [address] [place], [address] Lymphocytes/100 WBC (Bld) 45.3 % High 19-41 [facility] Comment on above: Performed By: #### L 100.0100, L503.6005, L503.5510, L300.3900, L300.4310, L500.3400, L500.4050, L501.5200, L501.9520 #### [facility] [address] [facility] [place], [address] MCH (RBC) [Entitic mass] 22.0 pg Low 27.0-32.0 [facility] Comment on above: Performed By: #### L 100.0100, L503.6005, L503.5510, L300.3900, L300.4310, L500.3400, L500.4050, L501.5200, L501.9520 #### [facility] [address] [place], [address] MCHC (RBC) [Mass/Vol] 29.2 g/dL Low 32-36 [facility] Comment on above: Performed By: #### L 100.0100, L503.6005, L503.5510, L300.3900, L300.4310, L500.3400, L500.4050, L501.5200, L501.9520 #### [facility] [address] [place], [address] MCV (RBC) [Entitic vol] 75.2 fL Low 81-99 [facility] Comment on above: Performed By: #### L 100.0100, L503.6005, L503.5510, L300.3900, L300.4310, L500.3400, L500.4050, L501.5200, L501.9520 #### [facility] [address] [place], [address] Monocytes/100 WBC (Bld) 9.9 % Normal 0-10 [facility] Comment on above: Performed By: #### L 100.0100, L503.6005, L503.5510, L300.3900, L300.4310, L500.3400, L500.4050, L501.5200, L501.9520 #### [facility] [address] [place], [address] Neutrophils/100 WBC (Bld) 41.8 % Low 47-70 [facility] Comment on above: Performed By: #### L 100.0100, L503.6005, L503.5510, L300.3900, L300.4310, L500.3400, L500.4050, L501.5200, L501.9520 #### [facility] [address] [place], [address] Nucleated RBC (Bld) [#/Vol] 0 10*3/uL Normal 0-5 [facility] Comment on above: Performed By: #### L 100.0100, L503.6005, L503.5510, L300.3900, L300.4310, L500.3400, L500.4050, L501.5200, L501.9520 #### [facility] [address] [place], [address] Platelet mean volume (Bld) [Entitic vol] 11.9 fL Normal 6.2-12.0 [facility] Comment on above: Performed By: #### L 100.0100, L503.6005, L503.5510, L300.3900, L300.4310, L500.3400, L500.4050, L501.5200, L501.9520 #### [facility] [address] [place], [address] Platelets (Bld) [#/Vol] 415 10*3/uL Normal 150-450 [facility] Comment on above: Performed By: #### L 100.0100, L503.6005, L503.5510, L300.3900, L300.4310, L500.3400, L500.4050, L501.5200, L501.9520 #### [facility] [address] [place], [address] RBC (Bld) [#/Vol] 4.51 10*6/uL Normal 4.2-5.4 [facility] Comment on above: Performed By: #### L 100.0100, L503.6005, L503.5510, L300.3900, L300.4310, L500.3400, L500.4050, L501.5200, L501.9520 #### [facility] [address] [place], [address] RDW SD 50.8 fl High 35.1-43.9 [facility] Comment on above: Performed By: #### L 100.0100, L503.6005, L503.5510, L300.3900, L300.4310, L500.3400, L500.4050, L501.5200, L501.9520 #### [facility] [address] [place], [address] WBC (Bld) [#/Vol] 9.9 10*3/uL Normal 4.4-11.0 [facility] Comment on above: Performed By: #### L 100.0100, L503.6005, L503.5510, L300.3900, L300.4310, L500.3400, L500.4050, L501.5200, L501.9520 #### [facility] [address] [place], [place], [phone] Carbon dioxide, total [Moles /volume] in Central venous bloodOrdered By: Kimmie Hussein on 05-08-2025 CO2 [Moles/Vol] 25.0 mmol/L 21.0-32.0 [facility] Chloride assayOrdered By: Thad Hussein on 05-08-2025 Chloride [Moles/Vol] 103 mmol/L 98-108 [facility] Comprehensive Metabolic Prof ilon 05-08-2025 Albumin [Mass/Vol] 3.7 g/dL Normal 3.4-4.8 [facility] Comment on above: Performed By: #### L 100.0100, L503.6005, L503.5510, L300.3900, L300.4310, L500.3400, L500.4050, L501.5200, L501.9520 #### [facility] [address] [place], [place], [phone] ([phone]) Albumin/Globulin [Mass ratio] 0.9 {ratio} Normal 0.9-2.4 [facility] Comment on above: Performed By: #### L 100.0100, L503.6005, L503.5510, L300.3900, L300.4310, L500.3400, L500.4050, L501.5200, L501.9520 #### [facility] [address] [place], [place], [phone] PHOS 99 U/L Normal 35-104 [facility] Comment on above: Performed By: #### L 100.0100, L503.6005, L503.5510, L300.3900, L300.4310, L500.3400, L500.4050, L501.5200, L501.9520 #### [facility] [address] [place], [place], [phone] (733) ALT [Catalytic activity/Vol] 20 U/L Normal <=34 [facility] Comment on above: Performed By: #### L 100.0100, L503.6005, L503.5510, L300.3900, L300.4310, L500.3400, L500.4050, L501.5200, L501.9520 #### [facility] [address] [place], [address] AST [Catalytic activity/Vol] 32 U/L Normal <=31 [facility] Comment on above: Performed By: #### L 100.0100, L503.6005, L503.5510, L300.3900, L300.4310, L500.3400, L500.4050, L501.5200, L501.9520 #### [facility] [address] [place], [place], [phone] ([phone]) Bilirubin [Mass/Vol] 0.55 mg/dL Normal 0.00-1.30 [facility] Comment on above: Performed By: #### L 100.0100, L503.6005, L503.5510, L300.3900, L300.4310, L500.3400, L500.4050, L501.5200, L501.9520 #### [facility] [address] [place], [place], [phone] ([phone]) BUN/CRE 13.4 RATIO Normal 10-20 [facility] Comment on above: Performed By: #### L 100.0100, L503.6005, L503.5510, L300.3900, L300.4310, L500.3400, L500.4050, L501.5200, L501.9520 #### [facility] [address] [place], [place], [phone] ([phone]) Calcium [Mass/Vol] 9.2 mg/dL Normal 7.6-11.0 [facility] Comment on above: Performed By: #### L 100.0100, L503.6005, L503.5510, L300.3900, L300.4310, L500.3400, L500.4050, L501.5200, L501.9520 #### [facility] [address] [place], [address] Chloride [Moles/Vol] 103 mmol/L Normal 98-108 [facility] Comment on above: Performed By: #### L 100.0100, L503.6005, L503.5510, L300.3900, L300.4310, L500.3400, L500.4050, L501.5200, L501.9520 #### [facility] [address] [place], [address] CO2 [Moles/Vol] 25.0 mmol/L Normal 21.0-32.0 [facility] Comment on above: Performed By: #### L 100.0100, L503.6005, L503.5510, L300.3900, L300.4310, L500.3400, L500.4050, L501.5200, L501.9520 #### [facility] [address] [place], [address] Creatinine [Mass/Vol] 1.09 mg/dL Normal 0.70-1.20 [facility] Comment on above: Performed By: #### L 100.0100, L503.6005, L503.5510, L300.3900, L300.4310, L500.3400, L500.4050, L501.5200, L501.9520 #### [facility] [address] [place], [address] GAP 10 Normal 5-15 [facility] Comment on above: Performed By: #### L 100.0100, L503.6005, L503.5510, L300.3900, L300.4310, L500.3400, L500.4050, L501.5200, L501.9520 #### [facility] [address] [place], [address] GFR/1.73 sq M.predicted among non-blacks MDRD (S/P/Bld) [Vol rate/Area] 50 mL/min/{1.73_m2} Low >60 [facility] Comment on above: Result Comment: mL/m in/1.73m2 CKD-EPI Creatinine Equation (2020) Performed By: #### L 100.0100, L503.6005, L503.5510, L300.3900, L300.4310, L500.3400, L500.4050, L501.5200, L501.9520 #### [facility] [address] [place], [place], [phone] ([phone]) Globulin (S) [Mass/Vol] 4.2 g/dL Normal 2.2-4.2 [facility] Comment on above: Performed By: #### L 100.0100, L503.6005, L503.5510, L300.3900, L300.4310, L500.3400, L500.4050, L501.5200, L501.9520 #### [facility] [address] [place], [place], [phone] ([phone]) Glucose [Mass/Vol] 99 mg/dL Normal 70-99 [facility] Comment on above: Performed By: #### L 100.0100, L503.6005, L503.5510, L300.3900, L300.4310, L500.3400, L500.4050, L501.5200, L501.9520 #### [facility] [address] [place], [place], [phone] ([phone]) Potassium [Moles/Vol] 3.9 mmol/L Normal 3.3-5.1 [facility] Comment on above: Performed By: #### L 100.0100, L503.6005, L503.5510, L300.3900, L300.4310, L500.3400, L500.4050, L501.5200, L501.9520 #### [facility] [address] [place], [address] Sodium [Moles/Vol] 139 mmol/L Normal 133-145 [facility] Comment on above: Performed By: #### L 100.0100, L503.6005, L503.5510, L300.3900, L300.4310, L500.3400, L500.4050, L501.5200, L501.9520 #### [facility] [address] [place], [address] T PROT 7.9 g/dL Normal 5.9-8.4 [facility] Comment on above: Performed By: #### L 100.0100, L503.6005, L503.5510, L300.3900, L300.4310, L500.3400, L500.4050, L501.5200, L501.9520 #### [facility] [address] [place], [address] Urea nitrogen [Mass/Vol] 15 mg/dL Normal 4-19 [facility] Comment on above: Performed By: #### L 100.0100, L503.6005, L503.5510, L300.3900, L300.4310, L500.3400, L500.4050, L501.5200, L501.9520 #### [facility] [address] [place], [address] Eosinophil percentageOrdered By: Kimmie Hussein on 05-08-2025 Eosinophils/100 WBC (Bld) 1.5 % 0-5 [facility] Erythrocyte distribution wid th ratioOrdered By: Kimmie Hussein on 05-08-2025 Erythrocyte distribution width (RBC) [Ratio] 19.2 % High 11.6-14.6 [facility] Erythrocyte distribution wid th standard deviationOrdered By: Kimmie Jovita on 05-08-2025 Erythrocyte distribution width (RBC) [Ratio] 50.8 fl High 35.1-43.9 [facility] Glomerular filtration rate ( GFR) estimation/1.73 sq m using serum, plasma, or whole bOrdered By: Kimmie Hussein on 05-08-2025 GFR/1.73 sq M.predicted among non-blacks MDRD (S/P/Bld) [Vol rate/Area] 50 mL/min/{1.73_m2} Low >60 [facility] Comment on above: mL/min/1.73m2 CKD-EP I Creatinine Equation (2020) Hematocrit Auto (Bld) [Volum e fraction]Ordered By: Kimmie Hussein on 05-08-2025 Hematocrit (Bld) [Volume fraction] 33.9 % Low 37-47 [facility] Hemoglobin measurementOrdere d By: Kimmie Hussein on 05-08-2025 Hemoglobin (Bld) [Mass/Vol] 9.9 g/dL Low 12.0-15.0 [facility] Immature granulocytes/100 WB C Auto (Bld)Ordered By: Kimmie Hussein on 05-08-2025 Immature granulocytes/100 WBC (Bld) 0.300 % 0.0-0.9 [facility] Comment on above: IG% - Immature Granu locytes (promyelocytes, myelocytes and metamyelocytes) > 1% indicates that a LEFT SHIFT is Present. Laboratory - Chemistry and C hemistry - challengeOrdered By: Kimmie Hussein on 05-08-2025 AST [Catalytic activity/Vol] 32 U/L <32 [facility] MCV (mean corpuscular volume ) determinationOrdered By: Kimmie Hussein on 05-08-2025 MCV (RBC) [Entitic vol] 75.2 fL Low 81-99 [facility] Mean corpuscular hemoglobin (MCH) determinationOrdered By: Kimmie Hussein on 05-08-2025 MCH (RBC) [Entitic mass] 22.0 pg Low 27.0-32.0 [facility] Mean corpuscular hemoglobin concentration (MCHC) determinationOrdered By: Kimmie Hussein on 05-08-2025 MCHC (RBC) [Mass/Vol] 29.2 g/dL Low 32-36 [facility] Mean platelet volume determi nationOrdered By: Kimmie Hussein on 05-08-2025 Platelet mean volume (Bld) [Entitic vol] 11.9 fL 6.2-12.0 [facility] Monocyte percentageOrdered B y: Kimmie Hussein on 05-08-2025 Monocytes/100 WBC (Bld) 9.9 % 0-10 [facility] Neutrophil percentageOrdered By: Kimmie Hussein on 05-08-2025 Neutrophils/100 WBC (Bld) 41.8 % Low 47-70 [facility] Nucleated red blood cell per centageOrdered By: Kimmie Hussein on 05-08-2025 Nucleated RBC/100 WBC (Bld) [Ratio] 0 % 0-5 [facility] Platelet countOrdered By: Thad Hussein on 05-08-2025 Platelets (Bld) [#/Vol] 415 10*3/uL 150-450 [facility] Potassium measurement (mass/ volume)Ordered By: Kimmie Hussein on 05-08-2025 Potassium (Unsp spec) [Mass/Vol] 3.9 mmol/L 3.3-5.1 [facility] RBC Auto (Bld) [#/Vol]Ordere d By: Kimmie Hussein on 05-08-2025 RBC (Bld) [#/Vol] 4.51 10*6/uL 4.2-5.4 [facility] Serum creatinine measurement (mass/volume)Ordered By: Kimmie Hussein on 05-08-2025 Creatinine [Mass/Vol] 1.09 mg/dL 0.70-1.20 [facility] Serum globulin measurementOr dered By: Kimmie Hussein on 05-08-2025 Globulin (S) [Mass/Vol] 4.2 g/dL 2.2-4.2 [facility] Serum glucose measurement (m ass/volume)Ordered By: Kimmie Hussein on 05-08-2025 Glucose [Mass/Vol] 99 mg/dL 70-99 [facility] Serum or plasma alanine k[place] otransferase (ALT) measurementOrdered By: Kimmie Hussein on 05-08-2025 ALT [Catalytic activity/Vol] 20 U/L <35 [facility] Serum or plasma albumin shell urement (mass/volume)Ordered By: Kimmie Hussein on 05-08-2025 Albumin [Mass/Vol] 3.7 g/dL 3.4-4.8 [facility] Serum or plasma albumin/glob ulin mass ratioOrdered By: Kimmie Hussein on 05-08-2025 Albumin/Globulin [Mass ratio] 0.9 {ratio} 0.9-2.4 [facility] Serum or plasma alkaline natalie sphatase measurementOrdered By: Kimmie Hussein on 05-08-2025 ALP [Catalytic activity/Vol] 99 U/L 35-104 [facility] Serum or plasma calcium shell urement (mass/volume)Ordered By: Kimmie Hussein on 05-08-2025 Calcium [Mass/Vol] 9.2 mg/dL 7.6-11.0 [facility] Serum or plasma urea nitroge n measurement (mass/volume)Ordered By: Kimmie Hussein on 05-08-2025 Urea nitrogen [Mass/Vol] 15 mg/dL 4-19 [facility] Sodium levelOrdered By: Sherry Hussein on 05-08-2025 Sodium [Moles/Vol] 139 mmol/L 133-145 [facility] Total proteinOrdered By: Neena Hussein on 05-08-2025 Protein [Mass/Vol] 7.9 g/dL 5.9-8.4 [facility] White blood cell (WBC) count Ordered By: Kimmie Hussein on 05-08-2025 WBC (Bld) [#/Vol] 9.9 10*3/uL 4.4-11.0 [facility] CNOVon 04-24-2025 CNOV Office Visit (WOUCA) MARY CRANE ([id number]) 1940 F TXT Date Time Provider Department [...] May Linares MA Referring Provider: JOSEF MARTINEZ [[id number]] Allergies As of Date: 04/24/2025 Noted Allergy [...] Visit Diagnosis:URI, acute [J06.9] Order(s):COVID-19 MOLECULAR (POC) [4791522] Order #: [id number]. #:[id number] Prescriptions as of 04/24/2025 - allopurinol (ZYLOPRIM) [...] at 8 pm - Vit A,C and C-Lztecy-Gmlcahpf (OCUVITE WITH LUTEIN) 300 mcg-200 mg-27 mg-2 [...] Sialoadenitis [K11.20] (more content not included)... Normal [facility] CNOV Office Visit (FAMPWS ) MARY CRAEN ([id number]) 1940 F TXT Date Time Provider Department 04/24/25 12:00 PM [facility] visit today, we recorded the following information about you: Pulse Blood pressure Weight 56/minute 171/76 69 kg Josef Martinez APRN.EPOXY SPECIALIST 04/24/2025 12:26 PM Signed Chief Complaint Patient [...] multiple adenomatous polyps, repeat in 3 yrs ESOPHAGOGASTRODUODENO SCOPY TRANSORAL DIAGNOSTIC 12/21/2014 EGD LAPAROSCOPY SURG CHOLECYSTECTOMY [...] and at 8 pm Vit A,C and M-Uozfgs-Weyefcsn (OCUVITE WITH LUTEIN) 300 mcg-200 mg-27 mg-2 [...] a day (more content not included)... Normal [facility] 04-24-2025 CNPN Telephone (TERESOWS) MARY CRANE ([id number]) 1940 F TXT Date Time Provider Department [...] pain. Pt scheduled today with Josef Martinez GENERAL OPHTHALMOLOGIST. Christel Wagner RN Allergies As of Date: [...] at 8 pm - Vit A,C and R-Sekvcj-Nezriugp (OCUVITE WITH LUTEIN) 300 mcg-200 mg-27 mg-2 [...] 03/17/2006 HYPERTENSION (more content not included)... Normal [facility] COVID-19 MOLECULAR (POC)on 0 04-24-2025 Procedural Control Valid [facility] SARS-CoV-2 (COVID-19) RNA MEL+probe Ql (Unsp spec) Negative Negative [facility] Comment on above: Location:[facility], [address], [place], [address] [facility] INFLUENZA A&B MOLECULAR (POC )on 04-24-2025 Flu A (POCT) Negative Negative [facility] Flu B (POCT) Negative Negative [facility] Procedural Control Valid [facility] Location:[facility], [address], [place], [address] [facility] POINT OF CARE [facility] XR CHEST 2V FRONTAL/LATon XR CHEST [...] tissues: Unremarkable. IMPRESSION: No acute radiographic abnormality. Medical Receptionist Biller: FRANCIS Transcribe Date/Time: Apr 24 2025 1:29P Dictated by : JOJO JEFFREY MD This examination was interpreted and the report reviewed and electronically signed by: JOJO JEFFREY MD on Apr 24 2025 1:31PM EST [id number] N Normal [facility] XR Chest PA and Lateralon IMPRESSION: No acute radiographic abnormality. Medical Receptionist Biller: PSC Transcribe Date/Time: Apr 24 2025 1:29P Dictated [...] soft tissues: Unremarkable. DIVISION OF RADIOLOGY Provider, [facility] - 04/24/2025 * * *Final Report* * [...] Unremarkable. IMPRESSION IMPRESSION: No acute radiographic abnormality. Medical Receptionist Biller: PSCB Transcribe Date/Time: Apr 24 2025 1:29P Dictated by : JOJO JEFFREY MD This examination was interpreted and the report reviewed and electronically signed by: JOJO JEFFREY MD on Apr 24 2025 1:31PM EST [facility] Radiology Study observation (narrative) Gary Lopez XR Chest PA and LateralOrder ed By: Ccf Provider on 04-24-2025 [facility] CNOVon 03-27-2025 CNOV Office Visit (CARDWS ) MARY CRANE ([id number]) 1940 F TXT Date Time Provider Department 03/27/25 9:00 AM RASHEED BARRIOS During your visit today, we recorded the following information about you: Pulse Respiration Blood pressure Weight 59/minute 12/minute 166/80 68.9 kg Height 1.626 m Rasheed Barrios MD 03/27/2025 11:26 AM Signed [facility] SECTION [facility] REGIONAL CARDIOLOGY Cardiology ([facility]) [address] [facility] [id number] OUTPATIENT VISIT DATE 03/27/2025 PRIMARY CARE PHYSICIAN: tAul Harvey [address] [place] [address] HISTORY OF PRESENT ILLNESS: Ms. Crane is a 84 year old woman with history of paroxysmal atrial fibrillation, mild pulmonary hypertension, essential hypertension, and rheumatoid arthritis who presents to the office for follow-up after hospital admission. She was [facility] transfer from [facility] after a fall resulting in splenic rupture. [...] multiple adenomatous polyps, repeat in 3 yrs ESOPHAGOGASTRODUODENO SCOPY TRANSORAL DIAGNOSTIC 12/21/2014 EGD LAPAROSCOPY SURG CHOLECYSTECTOMY [...] tartrate, jacinda (more content not included)... Normal [facility] 02-15-2025 [facility] Telephone (FAMPWS) MARY CRANE ([id number]) 1940 F TXT Date Time Provider Department 02/15/25 [facility] During your visit today, we recorded the following information about you: Christel Wagner RN 02/15/2025 11:46 AM Signed Felicitas [facility] called in and reports she is hoping to discharge Pt next week. She is asking if provider would be comfortable discontinuing the O2 order for the Pt at [facility]. She states the last 2 weeks she has been seeing the Pt she has not been using the O2. She said she walked the Pt around her house for 5 min and she stayed at 92% the whole time and moves really well and doesn't get SOB. She also reports they are working on getting the Pts medication pre-packaged through [facility]. 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 Normal [facility] Absolute lymphocyte countOrd ered By: Kimmie Hussein on 02-13-2025 Lymphocytes Auto (Unsp spec) [#/Vol] 3.87 10*3/uL 0.83-4.51 [facility] Absolute neutrophil countOrd ered By: Kimmie Hussein on 02-13-2025 Neutrophils (Bld) [#/Vol] 5.7 10*3/uL 2.0-7.7 [facility] Anion gap in Serum or Plasma Ordered By: Kimmie Hussein on 02-13-2025 Anion gap [Moles/Vol] 12 mmol/L - [facility] Automated lymphocyte count a s percentage of total leukocytesOrdered By: Kimmiedeborah Hussein on 02-13-2025 Lymphocytes/100 WBC Auto (Unsp spec) 33.7 % [facility] BUN/creatinine ratioOrdered By: [facility] Jovita on 02-13-2025 Urea nitrogen/Creatinine [Mass ratio] 10.8 mg/mg - [facility] Basophil percentageOrdered B y: Kimmie Hussein on 02-13-2025 Basophils/100 WBC (Bld) 1.0 % 0-1 [facility] Bilirubin, totalOrdered By: Kimmiedeborah Hussein on 02-13-2025 Bilirubin [Mass/Vol] 0.31 mg/dL 0.00-1.30 [facility] CBC W/Diff, Automatedon Absolute Lymph 3.87 X10 3/uL Normal 0.83-4.51 [facility] Comment on above: Performed By: #### L 100.0100, L500.4050 #### [facility] [address] [facility] [place], [address] Absolute Neut 5.7 X10 3/uL Normal 2.0-7.7 [facility] Comment on above: Performed By: #### L 100.0100, L500.4050 #### [facility] [address] [place], [address] Basophils/100 WBC (Bld) 1.0 % Normal 0-1 [facility] Comment on above: Performed By: #### L 100.0100, L500.4050 #### [facility] [address] [place], [address] Eosinophils/100 WBC (Bld) 2.1 % Normal 0-5 [facility] Comment on above: Performed By: #### L 100.0100, L500.4050 #### [facility] [address] [place], [address] Erythrocyte distribution width (RBC) [Ratio] 15.8 % High 11.6-14.6 [facility] Comment on above: Performed By: #### L 100.0100, L500.4050 #### [facility] [address] [place], [address] Hematocrit (Bld) [Volume fraction] 33.9 % Low 37-47 [facility] Comment on above: Performed By: #### L 100.0100, L500.4050 #### [facility] [address] [place], [address] Hemoglobin (Bld) [Mass/Vol] 10.3 g/dL Low 12.0-15.0 [facility] Comment on above: Performed By: #### L 100.0100, L500.4050 #### [facility] [address] [place], [address] IG% 0.700 Normal 0.0-0.9 [facility] Comment on above: Result Comment: IG% - Immature Granulocytes (promyelocytes, myelocytes and metamyelocytes) > 1% indicates that a LEFT SHIFT is Present. Performed By: #### L 100.0100, L500.4050 #### [facility] [address] [place], [address] Lymphocytes/100 WBC (Bld) 33.7 % Normal 19-41 [facility] Comment on above: Performed By: #### L 100.0100, L500.4050 #### [facility] [address] [place], [address] MCH (RBC) [Entitic mass] 26.1 pg Low 27.0-32.0 [facility] Comment on above: Performed By: #### L 100.0100, L500.4050 #### [facility] [address] [place], [address] MCHC (RBC) [Mass/Vol] 30.4 g/dL Low 32-36 [facility] Comment on above: Performed By: #### L 100.0100, L500.4050 #### [facility] [address] [place], [address] MCV (RBC) [Entitic vol] 85.8 fL Normal 81-99 [facility] Comment on above: Performed By: #### L 100.0100, L500.4050 #### [facility] [address] [place], [address] Monocytes/100 WBC (Bld) 13.2 % High 0-10 [facility] Comment on above: Performed By: #### L 100.0100, L500.4050 #### [facility] [address] [place], [address] Neutrophils/100 WBC (Bld) 49.3 % Normal 47-70 [facility] Comment on above: Performed By: #### L 100.0100, L500.4050 #### [facility] [address] [place], [address] Nucleated RBC (Bld) [#/Vol] 0 10*3/uL Normal 0-5 [facility] Comment on above: Performed By: #### L 100.0100, L500.4050 #### [facility] [address] [place], [address] Platelet mean volume (Bld) [Entitic vol] 11.0 fL Normal 6.2-12.0 [facility] Comment on above: Performed By: #### L 100.0100, L500.4050 #### [facility] [address] [place], [address] Platelets (Bld) [#/Vol] 471 10*3/uL High 150-450 [facility] Comment on above: Performed By: #### L 100.0100, L500.4050 #### [facility] [address] [place], [address] RBC (Bld) [#/Vol] 3.95 10*6/uL Low 4.2-5.4 [facility] Comment on above: Performed By: #### L 100.0100, L500.4050 #### [facility] [address] [place], [address] RDW SD 49.6 fl High 35.1-43.9 [facility] Comment on above: Performed By: #### L 100.0100, L500.4050 #### [facility] [address] [place], [address] WBC (Bld) [#/Vol] 11.5 10*3/uL High 4.4-11.0 [facility] Comment on above: Performed By: #### L 100.0100, L500.4050 #### [facility] [address] [place], [address] Carbon dioxide, total [Moles /volume] in Central venous bloodOrdered By: Kimmie Hussein on 02-13-2025 CO2 [Moles/Vol] 25.8 mmol/L 21.0-32.0 [facility] Chloride assayOrdered By: Thad Hussein on 02-13-2025 Chloride [Moles/Vol] 101 mmol/L 98-108 [facility] Metabolic Prof ilon 02-13-2025 Albumin [Mass/Vol] 3.2 g/dL Low 3.4-4.8 [facility] Comment on above: Performed By: #### L 100.0100, L500.4050 #### [facility] [address] [place], [address] Albumin/Globulin [Mass ratio] 0.7 {ratio} Low 0.9-2.4 [facility] Comment on above: Performed By: #### L 100.0100, L500.4050 #### [facility] [address] [place], [address] ALK PHOS 119 U/L High 35-104 [facility] Comment on above: Performed By: #### L 100.0100, L500.4050 #### [facility] [address] [place], [address] ALT [Catalytic activity/Vol] 19 U/L Normal <=34 [facility] Comment on above: Performed By: #### L 100.0100, L500.4050 #### [facility] [address] [place], [address] AST [Catalytic activity/Vol] 34 U/L High <=31 [facility] Comment on above: Performed By: #### L 100.0100, L500.4050 #### [facility] [address] [place], [address] Bilirubin [Mass/Vol] 0.31 mg/dL Normal 0.00-1.30 [facility] Comment on above: Performed By: #### L 100.0100, L500.4050 #### [facility] [address] [place], [address] BUN/CRE 10.8 RATIO Normal 10-20 [facility] Comment on above: Performed By: #### L 100.0100, L500.4050 #### [facility] [address] [place], [address] Calcium [Mass/Vol] 9.2 mg/dL Normal 7.6-11.0 [facility] Comment on above: Performed By: #### L 100.0100, L500.4050 #### [facility] [address] [place], [address] Chloride [Moles/Vol] 101 mmol/L Normal 98-108 [facility] Comment on above: Performed By: #### L 100.0100, L500.4050 #### [facility] [address] [place], [address] CO2 [Moles/Vol] 25.8 mmol/L Normal 21.0-32.0 [facility] Comment on above: Performed By: #### L 100.0100, L500.4050 #### [facility] [address] [place], [address] Creatinine [Mass/Vol] 1.18 mg/dL Normal 0.70-1.20 [facility] Comment on above: Performed By: #### L 100.0100, L500.4050 #### [facility] [address] [place], [address] GAP 12 Normal 5-15 [facility] Comment on above: Performed By: #### L 100.0100, L500.4050 #### [facility] [address] [place], [address] GFR/1.73 sq M.predicted among non-blacks MDRD (S/P/Bld) [Vol rate/Area] 45 mL/min/{1.73_m2} Low >60 [facility] Comment on above: Result Comment: mL/m in/1.73m2 CKD-EPI Creatinine Equation (2020) Performed By: #### L 100.0100, L500.4050 #### [facility] [address] [place], [address] Globulin (S) [Mass/Vol] 4.3 g/dL High 2.2-4.2 [facility] Comment on above: Performed By: #### L 100.0100, L500.4050 #### [facility] [address] [place], [address] Glucose [Mass/Vol] 80 mg/dL Normal 70-99 [facility] Comment on above: Performed By: #### L 100.0100, L500.4050 #### [facility] [address] [place], [address] Potassium [Moles/Vol] 3.3 mmol/L Normal 3.3-5.1 [facility] Comment on above: Performed By: #### L 100.0100, L500.4050 #### [facility] [address] [place], [address] Sodium [Moles/Vol] 139 mmol/L Normal 133-145 [facility] Comment on above: Performed By: #### L 100.0100, L500.4050 #### [facility] [address] [place], [address] T PROT 7.4 g/dL Normal 5.9-8.4 [facility] Comment on above: Performed By: #### L 100.0100, L500.4050 #### [facility] [address] [place], [address] Urea nitrogen [Mass/Vol] 13 mg/dL Normal 4-19 [facility] Comment on above: Performed By: #### L 100.0100, L500.4050 #### [facility] [address] [place], [address] Eosinophil percentageOrdered By: Kimmie Hussein on 02-13-2025 Eosinophils/100 WBC (Bld) 2.1 % 0-5 [facility] Erythrocyte distribution wid th ratioOrdered By: Kimmie Hussein on 02-13-2025 Erythrocyte distribution width (RBC) [Ratio] 15.8 % High 11.6-14.6 [facility] Erythrocyte distribution wid th standard deviationOrdered By: Kimmie Hussein on 02-13-2025 Erythrocyte distribution width (RBC) [Ratio] 49.6 fl High 35.1-43.9 [facility] Glomerular filtration rate ( GFR) estimation/1.73 sq m using serum, plasma, or whole bOrdered By: Kimmie Hussein on 02-13-2025 GFR/1.73 sq M.predicted among non-blacks MDRD (S/P/Bld) [Vol rate/Area] 45 mL/min/{1.73_m2} Low >60 [facility] [facility] Comment on above: mL/min/1.73m2 CKD-EP I Creatinine Equation (2020) Hematocrit Auto (Bld) [Volum e fraction]Ordered By: Kimmie Hussein on 02-13-2025 Hematocrit (Bld) [Volume fraction] 33.9 % Low 37-47 [facility] Hemoglobin measurementOrdere d By: Kimmie Hussein on 02-13-2025 Hemoglobin (Bld) [Mass/Vol] 10.3 g/dL Low 12.0-15.0 [facility] Immature granulocytes/100 WB C Auto (Bld)Ordered By: Kimmie Hussein on 02-13-2025 Immature granulocytes/100 WBC (Bld) 0.700 % 0.0-0.9 [facility] Comment on above: IG% - Immature Granu locytes (promyelocytes, myelocytes and metamyelocytes) > 1% indicates that a LEFT SHIFT is Present. Laboratory - Chemistry and C hemistry - challengeOrdered By: Kimmie Hussein on 02-13-2025 AST [Catalytic activity/Vol] 34 U/L High <32 [facility] MCV (mean corpuscular volume ) determinationOrdered By: Kimmie Hussein on 02-13-2025 MCV (RBC) [Entitic vol] 85.8 fL 81-99 [facility] Mean corpuscular hemoglobin (MCH) determinationOrdered By: Kimmie Hussein on 02-13-2025 MCH (RBC) [Entitic mass] 26.1 pg Low 27.0-32.0 [facility] Mean corpuscular hemoglobin concentration (MCHC) determinationOrdered By: Kimmie Hussein on 02-13-2025 MCHC (RBC) [Mass/Vol] 30.4 g/dL Low 32-36 [facility] Mean platelet volume determi nationOrdered By: Kimmie Hussein on 02-13-2025 Platelet mean volume (Bld) [Entitic vol] 11.0 fL 6.2-12.0 [facility] Monocyte percentageOrdered B y: Kimmie Hussein on 02-13-2025 Monocytes/100 WBC (Bld) 13.2 % High 0-10 [facility] Neutrophil percentageOrdered By: Kimmie Hussein on 02-13-2025 Neutrophils/100 WBC (Bld) 49.3 % 47-70 [facility] Nucleated red blood cell per centageOrdered By: Kimmie Hussein on 02-13-2025 Nucleated RBC/100 WBC (Bld) [Ratio] 0 % 0-5 [facility] Platelet countOrdered By: Thad Hussein on 02-13-2025 Platelets (Bld) [#/Vol] 471 10*3/uL High 150-450 [facility] Potassium measurement (mass/ volume)Ordered By: Kimmie Hussein on 02-13-2025 Potassium (Unsp spec) [Mass/Vol] 3.3 mmol/L 3.3-5.1 [facility] RBC Auto (Bld) [#/Vol]Ordere d By: Kimmie Hussein on 02-13-2025 RBC (Bld) [#/Vol] 3.95 10*6/uL Low 4.2-5.4 [facility] Serum creatinine measurement (mass/volume)Ordered By: Kimmie Hussein on 02-13-2025 Creatinine [Mass/Vol] 1.18 mg/dL 0.70-1.20 [facility] Serum globulin measurementOr dered By: Kimmie Hussein on 02-13-2025 Globulin (S) [Mass/Vol] 4.3 g/dL High 2.2-4.2 [facility] Serum glucose measurement (m ass/volume)Ordered By: Kimmie Hussein on 02-13-2025 Glucose [Mass/Vol] 80 mg/dL 70-99 [facility] Serum or plasma alanine kirkland otransferase (ALT) measurementOrdered By: Kimmie Hussein on 02-13-2025 ALT [Catalytic activity/Vol] 19 U/L <35 [facility] Serum or plasma albumin shell urement (mass/volume)Ordered By: Kimmie Hussein on 02-13-2025 Albumin [Mass/Vol] 3.2 g/dL Low 3.4-4.8 [facility] Serum or plasma albumin/glob ulin mass ratioOrdered By: Kimmie Hussein on 02-13-2025 Albumin/Globulin [Mass ratio] 0.7 {ratio} Low 0.9-2.4 [facility] Serum or plasma alkaline natalie sphatase measurementOrdered By: Kimmie Hussein on 02-13-2025 ALP [Catalytic activity/Vol] 119 U/L High 35-104 [facility] Serum or plasma calcium shell urement (mass/volume)Ordered By: Kimmie Hussein on 02-13-2025 Calcium [Mass/Vol] 9.2 mg/dL 7.6-11.0 [facility] Serum or plasma urea nitroge n measurement (mass/volume)Ordered By: Kimmie Hussein on 02-13-2025 Urea nitrogen [Mass/Vol] 13 mg/dL 4-19 [facility] Sodium levelOrdered By: Sherry Hussein on 02-13-2025 Sodium [Moles/Vol] 139 mmol/L 133-145 [facility] Total proteinOrdered By: Neena Hussein on 02-13-2025 Protein [Mass/Vol] 7.4 g/dL 5.9-8.4 [facility] White blood cell (WBC) count Ordered By: Kimmie Hussein on 02-13-2025 WBC (Bld) [#/Vol] 11.5 10*3/uL High 4.4-11.0 [facility] CNPSelina 02-08-2025 CNPN Telephone ([facility]) MARY CRANE ([id number]) 1940 F TXT Date Time Provider Department 02/08/25 ATUL HARVEY During your visit today, we recorded the following information about you: Ely Alarcon LPN 02/08/2025 2:58 PM Signed Felicitas from [facility] Health calling to check if patient should be taking her Allopurinol 100 mg one tablet daily? She did a medication organizer for a week and patient had generic Crestor 10 mg in home, using it instead of the Atorvastatin 20 mg since [facility] not setting up bubble packs for about 7 to 10 days. Please advise Milana Armijo APRN.EPOXY SPECIALIST 02/09/2025 9:02 AM Signed Yes, she should be taking allopurinol. This is on medication list and recently refilled. OK with crestor until [facility] sets up daily packages. Thank you, Milana Armijo APRN.EPOXY SPECIALIST Ely Alarcon LPN 02/09/2025 4:16 PM Signed Phoned Feliictas and went over notes from [facility] GENERAL OPHTHALMOLOGIST with understanding. Allergies As of Date: 02/08/2025 [...] Fully Assessed Reason for Visit: Medication Question [7608] Prescriptions as of 02/09/2025 - furosemide (LASIX) [...] at 8 pm - Vit A,C and Q-Wybtaw-Yjxhjkom (OCUVITE WITH LUTEIN) 300 mcg-200 mg-27 mg-2 [...] SYNDROME [G56.00] (more content not included)... Normal [facility] CNOVon 02-07-2025 CNOV Office Visit (FAMPWS ) MARY CRANE ([id number]) 1940 F TXT Date Time Provider Department [...] her left side. She was assessed by [facility] and had xrays to make [...] to another hospital for potential surgery at [facility]. Had surgery by Dr. Acevedo and Dr. 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 Last saw Welding Operator in Oct at [facility]- he is managing the blood thinners. Was transported to [facility] for 11 days after discharge home Was [...] on anticoagulant Eliquis with referral to the Welding Operator. Then later fell against her left side and then 2-3 weeks after this fell when she tripped over her cat- falling against her left side. She was assessed by [facility] and had xrays to make [...] to another hospital for potential surgery at [facility]. 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 Last saw Welding Operator in Oct at [facility]- he is managing the blood thinners. She has an upcoming appt next week to discuss forward plans with her medication Bowel health is back to normal- denies constipation Mood, stable, has a lot of support from her family She transported to [facility] for 11 days after discharge from the [...] CATARACT EXTRAC (more content not included)... Normal [facility] Sarah 02-07-2025 [facility] Telephone (CARDWS) MARY CRANE ([id number]) 1940 F TXT Date Time Provider Department [...] likely need to be assesed by the Welding Operator prior to making any changes. 01/10/25 EKG still showing A fib. Daughter would like to ask Welding Operator if it is an option to switch from Eliquis to Aspirin prior to the appt on Thursday. If so, they will have us fax the order to [facility] in [place]. Please review and advise. DEOBRAH Reyes Danelle, RN 02/08/2025 2:12 PM Signed Velma Montes APRN.Elizabeth [...] for Visit: Medication Problem [65] Patient Question [1077] Prescriptions as of 02/08/2025 - furosemide (LASIX) [...] at 8 pm - Vit A,C and E-Lhmoaw-Anjibcdt (OCUVITE WITH LUTEIN) 300 mcg-200 mg-27 mg-2 [...] tablet Take (more content not included)... Normal [facility] 25(OH)D3 Bernadette 2024 25-hydroxyvitamin D3 [Mass/Vol] 61.8 ng/mL Normal 31.0-80.0 [facility] Comment on above: Order Comment: Speci men Type: BLOOD SPECIMEN Ordering Facility: [facility] Address: [address] [place], [place] [address] [address] Result Comment: Clas sification of 25 [place] Vitamin D status: Deficiency/Insufficiency: < or = 30 ng/ml. Sufficiency/Optimal Levels: 31-80 ng/mL Toxicity: > 100 ng/mL. Test performed by chemiluminescent immunoassay. Performed By: #### 1 989-3 #### [facility] CLIA [id number] [address] [place] [address] [place] CBC panel Auto (Bld)on 02-06 Erythrocyte distribution width (RBC) [Ratio] 15.6 % High 11.5-15.0 [facility] Comment on above: Order Comment: Speci men Type: BLOOD SPECIMEN Ordering Facility: [facility] Address: [address] [place] [address] Performed By: #### 2 432-8, 2132-06 #### [facility] CLIA [id number] [address] [place] [address] [place] Hematocrit (Bld) [Volume fraction] 35.2 % Low 36.0-46.0 [facility] Comment on above: Order Comment: Speci men Type: BLOOD SPECIMEN Ordering Facility: [facility] Address: [address] [place] [address] Performed By: #### 2 432-8, 2132-06 #### [facility] CLIA [id number] [address] [place] [address] [place] Hemoglobin (Bld) [Mass/Vol] 10.5 g/dL Low 11.5-15.5 [facility] Comment on above: Order Comment: Speci men Type: BLOOD SPECIMEN Ordering Facility: [facility] Address: [address] [place] [address] Performed By: #### 2 4323-8, 2132-06 #### [facility] CLIA [id number] [address] [place] [address] [place] MCH (RBC) [Entitic mass] 26.3 pg Normal 26.0-34.0 [facility] Comment on above: Order Comment: Speci men Type: BLOOD SPECIMEN Ordering Facility: [facility] Address: [address] [place], [place] [address] Performed By: #### 2 432-8, 2132-06 #### [facility] CLIA [id number] [address] [place] [address] [place] MCHC (RBC) [Mass/Vol] 29.8 g/dL Low 30.5-36.0 [facility] Comment on above: Order Comment: Speci men Type: BLOOD SPECIMEN Ordering Facility: [facility] Address: [address] [place] [address] Performed By: #### 2 432-8, 2132-06 #### [facility] CLIA [id number] [address] [place] [address] [place] MCV (RBC) [Entitic vol] 88.2 fL Normal 80.0-100.0 [facility] Comment on above: Order Comment: Speci men Type: BLOOD SPECIMEN Ordering Facility: [facility] Address: [address] [place] [address] Performed By: #### 2 4328, 2132-06 #### [facility] CLIA [id number] [address] [place] [address] [place] Nucleated RBC (Bld) [#/Vol] 10*3/uL Normal <0.01 [facility] Comment on above: Order Comment: Speci men Type: BLOOD SPECIMEN Ordering Facility: [facility] Address: [address] [place] [address] Performed By: #### 2 432-8, 2132-06 #### [facility] CLIA [id number] [address] [place] [address] [place] Platelet mean volume (Bld) [Entitic vol] 11.2 fL Normal 9.0-12.7 [facility] Comment on above: Order Comment: Speci men Type: BLOOD SPECIMEN Ordering Facility: [facility] Address: [address] [place], [place] [address] Performed By: #### 2 4323-8, 2132-06 #### [facility] CLIA [id number] [address] [place] [address] [place] Platelets (Bld) [#/Vol] 568 10*3/uL High 150-400 [facility] Comment on above: Order Comment: Speci men Type: BLOOD SPECIMEN Ordering Facility: [facility] Address: [address] [place] [address] Performed By: #### 2 4323-8, 2132-06 #### [facility] CLIA [id number] [address] [place] [address] [place] RBC (Bld) [#/Vol] 3.99 10*6/uL Normal 3.90-5.20 [facility] Comment on above: Order Comment: Speci men Type: BLOOD SPECIMEN Ordering Facility: [facility] Address: [address] [place] [address] Performed By: #### 2 4328, 2132-06 #### [facility] CLIA [id number] [address] [place] [address] [place] WBC (Bld) [#/Vol] 13.09 10*3/uL High 3.70-11.00 [facility] Comment on above: Order Comment: Speci men Type: BLOOD SPECIMEN Ordering Facility: [facility] Address: [address] [place] [address] Performed By: #### 2 4323-8, 2132-06 #### [facility] CLIA [id number] [address] [place] [address] [place] Comprehensive metabolic 2000 panelon 02-06-2025 Albumin [Mass/Vol] 3.2 g/dL Low 3.9-4.9 [facility] Comment on above: Order Comment: Speci men Type: BLOOD SPECIMEN Ordering Facility: [facility] Address: [address] [place] [address] Performed By: #### 2 4323-8, 2132-06 #### [facility] CLIA [id number] [address] [place] [address] [place] ALP [Catalytic activity/Vol] 128 U/L High 34-123 [facility] Comment on above: Order Comment: Speci men Type: BLOOD SPECIMEN Ordering Facility: [facility] Address: [address] [place] [address] Performed By: #### 2 43212-17, 2132-06 #### [facility] CLIA [id number] [address] [place] [address] [place] ALT [Catalytic activity/Vol] 26 U/L Normal 7-38 [facility] Comment on above: Order Comment: Speci men Type: BLOOD SPECIMEN Ordering Facility: [facility] Address: [address] [place] [address] Performed By: #### 2 4328, 2132-06 #### [facility] CLIA [id number] [address] [place], [place] [address] [place] Anion gap [Moles/Vol] 12 mmol/L Normal 8-15 [facility] Comment on above: Order Comment: Speci men Type: BLOOD SPECIMEN Ordering Facility: [facility] Address: [address] [place] [address] Performed By: #### 2 43212-17, 2132-06 #### [facility] CLIA [id number] [address] [place], [place] [address] [place] AST [Catalytic activity/Vol] 40 U/L High 13-35 [facility] Comment on above: Order Comment: Speci men Type: BLOOD SPECIMEN Ordering Facility: [facility] Address: [address] [place] [address] Performed By: #### 2 4323-8, 2132-06 #### [facility] CLIA [id number] [address] [place], [place] [address] [place] Bilirubin [Mass/Vol] 0.2 mg/dL Normal 0.2-1.3 [facility] Comment on above: Order Comment: Speci men Type: BLOOD SPECIMEN Ordering Facility: [facility] Address: [address] [place] [address] Performed By: #### 2 4323-8, 2132-06 #### [facility] CLIA [id number] [address] [place] [address] [place] Calcium [Mass/Vol] 9.4 mg/dL Normal 8.5-10.2 [facility] Comment on above: Order Comment: Speci men Type: BLOOD SPECIMEN Ordering Facility: [facility] Address: [address] [place] [address] Performed By: #### 2 4323-8, 2132-06 #### [facility] CLIA [id number] [address] [place] [address] [place] Chloride [Moles/Vol] 99 mmol/L Normal 98-107 [facility] Comment on above: Order Comment: Speci men Type: BLOOD SPECIMEN Ordering Facility: [facility] Address: [address] [place] [address] Performed By: #### 2 432-8, 2132-06 #### [facility] CLIA [id number] [address] [place] [address] [place] CO2 [Moles/Vol] 30 mmol/L Normal 22-30 [facility] Comment on above: Order Comment: Speci men Type: BLOOD SPECIMEN Ordering Facility: [facility] Address: [address] [place], [place] [id number] Performed By: #### 2 4323-8, 2132-06 #### [facility] CLIA [id number] [address] [place] [address] [place] Creatinine [Mass/Vol] 0.96 mg/dL Normal 0.58-0.96 [facility] Comment on above: Order Comment: Speci men Type: BLOOD SPECIMEN Ordering Facility: [facility] Address: [address] [place] [address] Performed By: #### 2 4323-8, 2132-06 #### [facility] CLIA [id number] [address] [place] [address] [place] Creatinine and Glomerular filtration rate.predicted panel (S/P/Bld) 58 mL/min/1.73m??? Low >=60 [facility] Comment on above: Order Comment: Adelita austin Type: BLOOD SPECIMEN Ordering Facility: [facility] Address: [address] [place] [address] Result Comment: Ely mated Glomerular Filtration Rate [...] Performed By: #### 2 4323-8, 2132-06 #### [facility] CLIA [id number] [address] [place] [address] [place] Glucose [Mass/Vol] 103 mg/dL High 74-99 [facility] Comment on above: Order Comment: Adelita austin Type: BLOOD SPECIMEN Ordering Facility: [facility] Address: [address] [place] [address] Result Comment: The [place] Diabetes Association (ADA) provides guidance for cutoff [...] Standards of Medical Care in Diabetes 2016, [place] [employer]. Diabetes Care. 2016.39(Suppl 1). Performed By: #### 2 4328, 2132-06 #### [facility] CLIA [id number] [address] [place] [address] [place] Potassium [Moles/Vol] 3.4 mmol/L Low 3.7-5.1 [facility] Comment on above: Order Comment: Speci men Type: BLOOD SPECIMEN Ordering Facility: [facility] Address: [address] [place] [address] Performed By: #### 2 4323-05, 2132-06 #### [facility] CLIA [id number] [address] [place] [address] [place] Protein [Mass/Vol] 7.6 g/dL Normal 6.3-8.0 [facility] Comment on above: Order Comment: Speci men Type: BLOOD SPECIMEN Ordering Facility: [facility] Address: [address] [place] [address] Performed By: #### 2 4323-05, 2132-06 #### [facility] CLIA [id number] [address] [place] [address] [place] Sodium [Moles/Vol] 141 mmol/L Normal 136-144 [facility] Comment on above: Order Comment: Speci men Type: BLOOD SPECIMEN Ordering Facility: [facility] Address: [address] [place], [place] [id number] Performed By: #### 2 4323-05, 2132-06 #### [facility] CLIA [id number] [address] [place], [place] [id number] [place] Urea nitrogen [Mass/Vol] 11 mg/dL Normal 7-21 [facility] Comment on above: Order Comment: Speci men Type: BLOOD SPECIMEN Ordering Facility: [facility] Address: [address] [place], [place] [id number] Performed By: #### 2 4323-05, 2132-06 #### [facility] CLIA [id number] [address] [place] [address] [place] HbA1c (Bld)on 02-06-2025 Average glucose Estimated from glycated hemoglobin (Bld) [Mass/Vol] 105 mg/dL Normal [facility] Comment on above: Order Comment: Adelita austin Type: BLOOD SPECIMEN Ordering Facility: [facility] Address: [address] [place] [address] Result Comment: eAG: (Estimated average glucose) is a calculated value from HgbA1c and is client representative of the average blood glucose level in the last 2-3 month period. Performed By: #### 5 8410-2 #### [facility] [place] [id number] [address] [place] [address] [place] [facility] HbA1c (Bld) [Mass fraction] 5.3 % Normal 4.3-5.6 [facility] Comment on above: Order Comment: Adelita austin Type: BLOOD SPECIMEN Ordering Facility: [facility] Address: [address] [place] [address] Result Comment: [place] Diabetes Association guidelines indicate that patients with HgbA1c in the range 5.7-6.4% are at increased risk for development of diabetes, and intervention by lifestyle modification may be beneficial. HgbA1c greater or equal to 6.5% is considered diagnostic of diabetes. Performed By: #### 5 8410-2 #### [facility] CLIA [id number] [address] [place] [address] [place] Lipid 1996 panelon 5 Cholesterol [Mass/Vol] 99 mg/dL Normal <200 [facility] Comment on above: Order Comment: Adelita austin Type: BLOOD SPECIMEN Ordering Facility: [facility] Address: [address] [place] [address] Result Comment: <200 mg/dL, Desirable 200-239 mg/dL, Borderline high >239 mg/dL, High Performed By: #### 2 4323-8, 2132-9 #### [facility] IA [id number] [address] [place] Cholesterol in HDL [Mass/Vol] 40 mg/dL Normal >39 [facility] Comment on above: Order Comment: Adelita austin Type: BLOOD SPECIMEN Ordering Facility: [facility] Address: [address] [place] [address] Result Comment: 40-5 9 mg/dL, Acceptable >59 mg/dL, High: Negative risk factor for coronary heart disease <40 mg/dL, Low: Positive risk factor for coronary heart disease Performed By: #### 2 8, 2132-06 #### [facility] CLIA [id number] [address] [place] [address] [place] OF [facility] Cholesterol in LDL [Mass/Vol] 41 mg/dL Normal <100 [facility] Comment on above: Order Comment: Adelita austin Type: BLOOD SPECIMEN Ordering Facility: [facility] Address: [address] [place] [address] Result Comment: <100 mg/dL, Optimal 100-129 mg/dL, Near optimal/above optimal 130-159 mg/dL, Borderline high 160-189 mg/dL, High >189 mg/dL, Very high Secondary prevention optimal LDL Cholesterol levels are recommended to be <70 mg/dL LDL cholesterol is calculated using the Loredo-NIH equation. Performed By: #### 2 4323-05, 2132-06 #### [facility] CLIA [id number] [address] [place] [address] [place] Cholesterol in LDL/Cholesterol in HDL [Mass ratio] 1.03 {ratio} Normal <2.54 [facility] Comment on above: Order Comment: Adelita geovanna Type: BLOOD SPECIMEN Ordering Facility: [facility] Address: [address] [place] [address] Result Comment: Deven mendez: 1. National Cholesterol Education Program ATP III Guideline At-A-Glance Quick Desk Reference: National Heart, Lung, and Blood [place]. National Institutes of Health. 2001: NIH Publication No. 01-3305. 2. An International Atherosclerosis Society position paper: global recommendations for the management of dyslipidemia: executive summary, Atherosclerosis. 2014: 232(2):410-413. Performed By: #### 2 4328, 2132-06 #### [facility] CLIA [id number] [address] [place] [address] [place] Cholesterol in VLDL [Mass/Vol] 13 mg/dL Normal <30 [facility] Comment on above: Order Comment: Speci men Type: BLOOD SPECIMEN Ordering Facility: [facility] Address: [address] [place] [address] Performed By: #### 2 4323-05, 2132-06 #### [facility] CLIA [id number] [address] [place] [address] [place] Cholesterol non HDL [Mass/Vol] 59 mg/dL Normal <130 [facility] Comment on above: Order Comment: Speci men Type: BLOOD SPECIMEN Ordering Facility: [facility] Address: [address] [place] [address] Result Comment: <130 mg/dL, Optimal 130-159 mg/dL, Near optimal/above optimal 160-189 mg/dL, Borderline high 190-219 mg/dL, High >219 mg/dL, Very high Secondary prevention optimal non HDL Cholesterol levels are recommended to be <100 mg/dL Performed By: #### 2 4323-05, 2132-06 #### [facility] CLIA [id number] [address] [place] [address] [place] Cholesterol.total/Jessica sterol in HDL [Mass ratio] 2.48 {ratio} Normal <5.10 [facility] Comment on above: Order Comment: Speci men Type: BLOOD SPECIMEN Ordering Facility: [facility] Address: [address] [place] [id number] Performed By: #### 2 4328, 2132-06 #### [facility] [facility] CLIA [id number] [address] [place], [place] [id number] [place] FASTING TIME 12 hrs Normal [facility] Comment on above: Order Comment: Speci men Type: BLOOD SPECIMEN Ordering Facility: [facility] Address: [address] [place] [address] Performed By: #### 2 4323-8, 2132-06 #### [facility] CLIA [id number] [address] [place] [address] [place] Triglyceride [Mass/Vol] 95 mg/dL Normal <150 [facility] Comment on above: Order Comment: Speci men Type: BLOOD SPECIMEN Ordering Facility: [facility] Address: [address] [place] [address] Result Comment: <150 mg/dL, Normal 150-199 mg/dL, Borderline high 200-499 mg/dL, High >499 mg/dL, Very high Performed By: #### 2 4323-8, 2132-06 #### [facility] CLIA [id number] [address] [place] [address] [place] TSH SerPl-aCncon 02-06-2025 TSH Qn 2.640 m[IU]/L Normal 0.270-4.200 [facility] Comment on above: Order Comment: Speci men Type: BLOOD SPECIMEN Ordering Facility: [facility] Address: [address] [place] [address] Performed By: #### 2 4323-8, 2132-06 #### [facility] CLIA [id number] [address] [place] [address] [place] Vit B12 SerPl-mCncon 025 Cobalamin (Vitamin B12) [Mass/Vol] 1858 pg/mL High 232-1245 [facility] Comment on above: Order Comment: Speci men Type: BLOOD SPECIMEN Ordering Facility: [facility] Address: [address] [place] [address] Performed By: #### 2 4323-8, 2132-06 #### [facility] CLIA [id number] [address] [place] [address] [place] CNPNon 02-02-2025 CNPN Telephone ([facility]) MARY CRANE ([id number]) 1940 F TXT Date Time Provider Department 02/02/25 ATUL HARVEY During your visit today, we recorded the following information about you: Ely Alarcon LPN 02/02/2025 1:02 PM Signed Felicitas from [facility] Home Health calling patient had been discharged from [facility] earlier this month, sent home with pill packs. Trying to get patient set up with [facility] in [place] to continue with pill packs. Patient has lots of medications that need clarified, Furosemide dose, Allopurinol if to be taking, Losartan 50 mg once daily, Metoprolol dose. Asking daughter to bring pill packs and pill bottles to appt on 02/07 with PCP. Catalina Jauregui APRN.EPOXY SPECIALIST 02/02/2025 1:04 PM Signed Agree with below. Catalina Jauregui APRN.Lulú Perez MA 02/02/2025 1:27 PM Signed Felicitas notified Lulú Tang [place] Allergies As of Date: 02/02/2025 Noted Allergy [...] RN - Fully Assessed Reason for Visit: medication [...] HYPERTENSION NOS (more content not included)... Normal [facility] Sarah 01-31-2025 FELICIAN Telephone ([facility]) MARY CRANE ([id number]) 1940 F TXT Date Time Provider Department 01/31/25 ATUL HARVEY During your visit today, we recorded the following information about you: Nancy Mccann RN 01/31/2025 2:19 PM Signed Carlos with [facility] PT callig with plan of care for patient. Patient will be seen by Physical Therapy 2 times per week for 3 weeks for functional mobility. No call back needed if provider is agreeable. JOSE Harrington Rebekah, APRN.CNP 02/01/2025 5:32 PM Signed Noted, thank you. Catalina Jauregui APRN.FELICIA Allergies As of Date: 01/31/2025 Noted Allergy [...] 12/21/2014 Esophag (more content not included)... Normal [facility] ([id number]) 1940 F TXT Date Time Provider Department 01/30/25 HARVEYATUL DIAZ During your visit today, we recorded the following information about you: Camila Finley RN 01/30/2025 3:51 PM Signed Candice calling from [facility] to report plan of care for patient and detention will visit patient 2 times a week for 2 weeks and 1 time a week for 2 weeks. [facility] will work with patient on managing wound [...] 02/03/2025 5:17 PM Signed Noted, ok with SW referral DO Anam Woodruff Susan LPN 02/06/2025 [...] RN - Fully Assessed Reason for Visit: Senior Living plan of care [Other] Prescriptions as of [...] hemorrhoids without mention of complic*09/30/2005 02/24/2020 CARPAL TUNN (more content not included)... Normal [facility] ([id number]) 1940 F TXT Date Time Provider Department 01/27[facility] During your visit today, we recorded the following information about you: Christel Wagner, RN 01/27/2025 3:56 PM Signed Courtney with [facility] called in and reports Pt is discharging from [facility]. She states they have orders for PT/OT/SN and is asking if the provider will follow. She states they hope to start on Thursday. Please call and advise. Milana Armijo APRN.EPOXY SPECIALIST 01/30/2025 11:13 AM Signed Yes, PCP team willing to follow. Thank you, Milana Armijo APRN.Christel Min RN 01/30/2025 12:13 PM Signed Areli with [facility] HH called and is notified of providers message [...] Gout [M (more content not included)... Normal [facility] Anion gap in Serum or Plasma Ordered By: Tate Reynolds on 01-26-2025 Anion gap [Moles/Vol] 10 mmol/L 5-15 [facility] BUN/creatinine ratioOrdered By: Tate Reynolds on 01-26-2025 Urea nitrogen/Creatinine [Mass ratio] 9.6 mg/mg Low 10-20 [facility] CBC W/Diff, Automatedon 01-10 PATH REV Reviewed Normal [facility] Comment on above: Result Comment: SEE REPORT IN PATIENT'S EMR AMENDED REPORT 01/26/25 1339 PATH REV previously reported as: February holland Performed By: #### L 100.0100, L500.4050 #### [facility] Laboratory [facility] [place], [address] Carbon dioxide, total [Moles /volume] in Central venous bloodOrdered By: Tate Reynolds on 01-26-2025 CO2 [Moles/Vol] 25.5 mmol/L 21.0-32.0 [facility] Chloride assayOrdered By: Ran Reynolds on 01-26-2025 Chloride [Moles/Vol] 103 mmol/L 98-108 [facility] Glomerular filtration rate ( GFR) estimation/1.73 sq m using serum, plasma, or whole bOrdered By: Tate Reynolds on 01-26-2025 GFR/1.73 sq M.predicted among non-blacks MDRD (S/P/Bld) [Vol rate/Area] 71 mL/min/{1.73_m2} >60 [facility] Comment on above: mL/min/1.73m2 CKD-EP I Creatinine Equation (2020) Potassium measurement (mass/ volume)Ordered By: Tate Reynolds on 01-26-2025 Potassium (Unsp spec) [Mass/Vol] 3.4 mmol/L 3.3-5.1 [facility] Serum creatinine measurement (mass/volume)Ordered By: Tate Reynolds on 01-26-2025 Creatinine [Mass/Vol] 0.81 mg/dL 0.70-1.20 [facility] Serum glucose measurement (m ass/volume)Ordered By: leslie Reynolds on 01-26-2025 Glucose [Mass/Vol] 99 mg/dL 70-99 [facility] Serum or plasma calcium shell urement (mass/volume)Ordered By: Tate Reynolds on 01-26-2025 Calcium [Mass/Vol] 8.5 mg/dL 7.6-11.0 [facility] Serum or plasma urea nitroge n measurement (mass/volume)Ordered By: Tate Reynolds on 01-26-2025 Urea nitrogen [Mass/Vol] 8 mg/dL 4-19 [facility] Sodium levelOrdered By: Ran patrickcalderon Gail on 01-26-2025 Sodium [Moles/Vol] 139 mmol/L 133-145 [facility] Absolute lymphocyte countOrd ered By: Tate Reynolds on 01-24-2025 Lymphocytes Auto (Unsp spec) [#/Vol] 2.38 10*3/uL 0.83-4.51 [facility] Absolute neutrophil countOrd ered By: Tate Reynolds on 01-24-2025 Neutrophils (Bld) [#/Vol] 9.3 10*3/uL High 2.0-7.7 [facility] Anion gap in Serum or Plasma Ordered By: Tate Reynolds on 01-24-2025 Anion gap [Moles/Vol] 8 mmol/L 5-15 [facility] Automated lymphocyte count a s percentage of total leukocytesOrdered By: Tate Reynolds on 01-24-2025 Lymphocytes/100 WBC Auto (Unsp spec) 17.4 % Low 19-41 [facility] BUN/creatinine ratioOrdered By: Jankeezletownkasey Reynolds on 01-24-2025 Urea nitrogen/Creatinine [Mass ratio] 10.5 mg/mg 10-20 [facility] Basophil percentageOrdered B y: Tate Reynolds on 01-24-2025 Basophils/100 WBC (Bld) 0.7 % 0-1 [facility] Carbon dioxide, total [Moles /volume] in Central venous bloodOrdered By: Tate Reynolds on 01-24-2025 CO2 [Moles/Vol] 26.2 mmol/L 21.0-32.0 [facility] Chloride assayOrdered By: Ran Reynolds on 01-24-2025 Chloride [Moles/Vol] 102 mmol/L 98-108 [facility] Eosinophil percentageOrdered By: guillermokeezletownkasey Reynolds on 01-24-2025 Eosinophils/100 WBC (Bld) 3.0 % 0-5 [facility] Erythrocyte distribution wid th ratioOrdered By: Tate Reynolds on 01-24-2025 Erythrocyte distribution width (RBC) [Ratio] 14.9 % High 11.6-14.6 [facility] Erythrocyte distribution wid th standard deviationOrdered By: Tate Reynolds on 01-24-2025 Erythrocyte distribution width (RBC) [Ratio] 50.2 fl High 35.1-43.9 [facility] Glomerular filtration rate ( GFR) estimation/1.73 sq m using serum, plasma, or whole bOrdered By: Tate Reynolds on 01-24-2025 GFR/1.73 sq M.predicted among non-blacks MDRD (S/P/Bld) [Vol rate/Area] 66 mL/min/{1.73_m2} >60 [facility] Comment on above: mL/min/1.73m2 CKD-EP I Creatinine Equation (2020) Hematocrit Auto (Bld) [Volum e fraction]Ordered By: Jadkasey Wilcoxbarquentin on 01-24-2025 Hematocrit (Bld) [Volume fraction] 27.0 % Low 37-47 [facility] Hemoglobin measurementOrdere d By: Tate Reynolds on 01-24-2025 Hemoglobin (Bld) [Mass/Vol] 8.2 g/dL Low 12.0-15.0 [facility] Immature granulocytes/100 WB C Auto (Bld)Ordered By: Jadkasey Wilcoxbarquentin on 01-24-2025 Immature granulocytes/100 WBC (Bld) 0.700 % 0.0-0.9 [facility] Comment on above: IG% - Immature Granu locytes (promyelocytes, myelocytes and metamyelocytes) > 1% indicates that a LEFT SHIFT is Present. MCV (mean corpuscular volume ) determinationOrdered By: Ranleslie Wilcoxbarquentin on 01-24-2025 MCV (RBC) [Entitic vol] 91.2 fL 81-99 [facility] Mean corpuscular hemoglobin (MCH) determinationOrdered By: guilelrmokeezletownkasey Wilcoxbarquentin on 01-24-2025 MCH (RBC) [Entitic mass] 27.7 pg 27.0-32.0 [facility] Mean corpuscular hemoglobin concentration (MCHC) determinationOrdered By: guillermokeezletownkasey Wilcoxbarquentin 01-24-2025 MCHC (RBC) [Mass/Vol] 30.4 g/dL Low 32-36 [facility] Mean platelet volume determi nationOrdered By: guillermokeezletownkasey Wilcoxbarquentin 01-24-2025 Platelet mean volume (Bld) [Entitic vol] 10.0 fL 6.2-12.0 [facility] Monocyte percentageOrdered B y: Jadkasey Wilcoxbarquentin on 01-24-2025 Monocytes/100 WBC (Bld) 10.4 % High 0-10 [facility] Natriuretic peptide.B prohor naveen N-Terminal [Mass/volume] in Serum or PlasmaOrdered By: Ranleslie Reynolds on 01-24-2025 Natriuretic peptide.B prohormone N-Terminal [Mass/Vol] 2534 pg/mL High <1800 [facility] Comment on above: Heart Failure Unlike ly: < 300 pg/mLHeart Failure Likely< 50 Years: > 450 pg/mL50-75 Years: > 900 pg/mL>75 Years: > 1800 pg/mL Neutrophil percentageOrdered By: Tate Reynolds on 01-24-2025 Neutrophils/100 WBC (Bld) 67.8 % 47-70 [facility] Nucleated red blood cell per centageOrdered By: Tate Reynolds on 01-24-2025 Nucleated RBC/100 WBC (Bld) [Ratio] 0 % 0-5 [facility] Platelet countOrdered By: Ran Reynolds on 01-24-2025 Platelets (Bld) [#/Vol] 575 10*3/uL High 150-450 [facility] Potassium measurement (mass/ volume)Ordered By: Tate Reynolds on 01-24-2025 Potassium (Unsp spec) [Mass/Vol] 4.1 mmol/L 3.3-5.1 [facility] RBC Auto (Bld) [#/Vol]Ordere d By: Tate Reynolds on 01-24-2025 RBC (Bld) [#/Vol] 2.96 10*6/uL Low 4.2-5.4 [facility] Serum creatinine measurement (mass/volume)Ordered By: Tate Reynolds on 01-24-2025 Creatinine [Mass/Vol] 0.86 mg/dL 0.70-1.20 [facility] Serum glucose measurement (m ass/volume)Ordered By: Tate Reynolds on 01-24-2025 Glucose [Mass/Vol] 91 mg/dL 70-99 [facility] Serum or plasma calcium shell urement (mass/volume)Ordered By: Tate Reynolds on 01-24-2025 Calcium [Mass/Vol] 8.6 mg/dL 7.6-11.0 [facility] Serum or plasma urea nitroge n measurement (mass/volume)Ordered By: Tate Reynolds on 01-24-2025 Urea nitrogen [Mass/Vol] 9 mg/dL 4-19 [facility] Sodium levelOrdered By: Jan Reynolds on 01-24-2025 Sodium [Moles/Vol] 137 mmol/L 133-145 [facility] White blood cell (WBC) count Ordered By: Tate Reynolds on 01-24-2025 WBC (Bld) [#/Vol] 13.7 10*3/uL High 4.4-11.0 [facility] Absolute lymphocyte countOrd ered By: Tate Reynolds on 01-18-2025 Lymphocytes Auto (Unsp spec) [#/Vol] 3.08 10*3/uL 0.83-4.51 [facility] Absolute neutrophil countOrd ered By: Tate Reynolds on 01-18-2025 Neutrophils (Bld) [#/Vol] 11.6 10*3/uL High 2.0-7.7 [facility] Anion gap in Serum or Plasma Ordered By: Tate Reynolds on 01-18-2025 Anion gap [Moles/Vol] 9 mmol/L 5-15 [facility] Automated lymphocyte count a s percentage of total leukocytesOrdered By: Tate Reynolds on 01-18-2025 Lymphocytes/100 WBC Auto (Unsp spec) 17.2 % Low 19-41 [facility] BUN/creatinine ratioOrdered By: Tate Reynolds on 01-18-2025 Urea nitrogen/Creatinine [Mass ratio] 14.2 mg/mg 10-20 [facility] Basophil percentageOrdered B y: Tate Reynolds on 01-18-2025 Basophils/100 WBC (Bld) 0.4 % 0-1 [facility] Bilirubin, totalOrdered By: Tate Reynolds on 01-18-2025 Bilirubin [Mass/Vol] 0.30 mg/dL 0.00-1.30 [facility] Calculated very low density lipoprotein (VLDL) cholesterol measurementOrdered By: Tate Reynolds on 01-18-2025 Calculated very low density lipoprotein (VLDL) cholesterol measurement 13 mg/dL 5-40 [facility] Carbon dioxide, total [Moles /volume] in Central venous bloodOrdered By: Tate Reynolds on 01-18-2025 CO2 [Moles/Vol] 24.6 mmol/L 21.0-32.0 [facility] Chloride assayOrdered By: Ran Reynolds on 01-18-2025 Chloride [Moles/Vol] 102 mmol/L 98-108 [facility] Eosinophil percentageOrdered By: Tate Reynolds on 01-18-2025 Eosinophils/100 WBC (Bld) 2.6 % 0-5 [facility] Erythrocyte distribution wid th ratioOrdered By: leslie Reynolds on 01-18-2025 Erythrocyte distribution width (RBC) [Ratio] 15.1 % High 11.6-14.6 [facility] Erythrocyte distribution wid th standard deviationOrdered By: guillermokeezletownkasey Reynolds on 01-18-2025 Erythrocyte distribution width (RBC) [Ratio] 50.2 fl High 35.1-43.9 [facility] Glomerular filtration rate ( GFR) estimation/1.73 sq m using serum, plasma, or whole bOrdered By: leslie Reynolds on 01-18-2025 GFR/1.73 sq M.predicted among non-blacks MDRD (S/P/Bld) [Vol rate/Area] 71 mL/min/{1.73_m2} >60 [facility] Comment on above: mL/min/1.73m2 CKD-EP I Creatinine Equation (2020) Hematocrit Auto (Bld) [Volum e fraction]Ordered By: Tate Reynolds on 01-18-2025 Hematocrit (Bld) [Volume fraction] 26.4 % Low 37-47 [facility] Hemoglobin measurementOrdere d By: Tate Reynolds on 01-18-2025 Hemoglobin (Bld) [Mass/Vol] 8.4 g/dL Low 12.0-15.0 [facility] Hypochromatic red blood cell detectionOrdered By: Tate Reynolds on 01-18-2025 Hypochromia Ql (Bld) 1+ [facility] Immature granulocytes/100 WB C Auto (Bld)Ordered By: Tate Reynolds on 01-18-2025 Immature granulocytes/100 WBC (Bld) 2.400 % High 0.0-0.9 [facility] Comment on above: IG% - Immature Granu locytes (promyelocytes, myelocytes and metamyelocytes) > 1% indicates that a LEFT SHIFT is Present. LDL calc ser/plasOrdered By: Tate Reynolds on 01-18-2025 Cholesterol in LDL [Mass/Vol] 19 mg/dL [facility] Comment on above: Lfdscmtyxa=702-596 m g/dL & Higher Hqgf=093 mg/dL or greater Laboratory - Chemistry and C hemistry - challengeOrdered By: Tate Reynolds on 01-18-2025 AST [Catalytic activity/Vol] 21 U/L <32 [facility] Laboratory - Hematology and Cell countsOrdered By: Tate Reynolds on 01-18-2025 Anisocytosis Ql (Bld) 1+ [facility] MCV (mean corpuscular volume ) determinationOrdered By: Tate Reynolds on 01-18-2025 MCV (RBC) [Entitic vol] 90.7 fL 81-99 [facility] Mean corpuscular hemoglobin (MCH) determinationOrdered By: Tate Reynolds on 01-18-2025 MCH (RBC) [Entitic mass] 28.9 pg 27.0-32.0 [facility] Mean corpuscular hemoglobin concentration (MCHC) determinationOrdered By: Tate Reynolds on 01-18-2025 MCHC (RBC) [Mass/Vol] 31.8 g/dL Low 32-36 [facility] Mean platelet volume determi nationOrdered By: Tate Reynolds on 01-18-2025 Platelet mean volume (Bld) [Entitic vol] 10.0 fL 6.2-12.0 [facility] Monocyte percentageOrdered B y: Tate Reynolds on 01-18-2025 Monocytes/100 WBC (Bld) 12.6 % High 0-10 [facility] Neutrophil percentageOrdered By: Tate Reynolds on 01-18-2025 Neutrophils/100 WBC (Bld) 64.8 % 47-70 [facility] Nucleated red blood cell per centageOrdered By: Tate Reynolds on 01-18-2025 Nucleated RBC/100 WBC (Bld) [Ratio] 0.2 % 0-5 [facility] Platelet countOrdered By: Ran Reynolds on 01-18-2025 Platelets (Bld) [#/Vol] 715 10*3/uL High 150-450 [facility] Potassium measurement (mass/ volume)Ordered By: Tate Reynolds on 01-18-2025 Potassium (Unsp spec) [Mass/Vol] 3.7 mmol/L 3.3-5.1 [facility] RBC Auto (Bld) [#/Vol]Ordere d By: Tate Reynolds on 01-18-2025 RBC (Bld) [#/Vol] 2.91 10*6/uL Low 4.2-5.4 [facility] Review by pathologistOrdered By: Tate Reynolds on 01-18-2025 Pathologist review Cholo (Unsp spec) [Interp] N/A [facility] Comment on above: Previous reported re sult: Swetha lino Edited by: VALERIA on 01/23/25:2030 AMENDED REPORT 01/23/252030 PATH REV previously reported as: Swetha lino Screening total cholesterol/ high density lipoprotein (HDL) cholesterol ratioOrdered By: Tate Reynolds on 01-18-2025 Cholesterol.total/Jessica sterol in HDL [Mass ratio] 1.89 {ratio} [facility] Serum creatinine measurement (mass/volume)Ordered By: Tate Reynolds on 01-18-2025 Creatinine [Mass/Vol] 0.81 mg/dL 0.70-1.20 [facility] Serum globulin measurementOr dered By: Tate Reynolds on 01-18-2025 Globulin (S) [Mass/Vol] 3.1 g/dL 2.2-4.2 [facility] Serum glucose measurement (m ass/volume)Ordered By: Tate Reynolds on 01-18-2025 Glucose [Mass/Vol] 91 mg/dL 70-99 [facility] Serum or plasma alanine kirkland otransferase (ALT) measurementOrdered By: Tate Reynolds on 01-18-2025 ALT [Catalytic activity/Vol] 16 U/L <35 [facility] Serum or plasma albumin shell urement (mass/volume)Ordered By: Tate Reynolds on 01-18-2025 Albumin [Mass/Vol] 2.3 g/dL Low 3.4-4.8 [facility] Serum or plasma albumin/glob ulin mass ratioOrdered By: Tate Reynolds on 01-18-2025 Albumin/Globulin [Mass ratio] 0.8 {ratio} Low 0.9-2.4 [facility] Serum or plasma alkaline natalie sphatase measurementOrdered By: Tate Reynolds 01-18-2025 ALP [Catalytic activity/Vol] 72 U/L 35-104 [facility] Serum or plasma calcium shell urement (mass/volume)Ordered By: Tate Reynolds 01-18-2025 Calcium [Mass/Vol] 8.1 mg/dL 7.6-11.0 [facility] Serum or plasma cholesterol in HDL measurement (mass/volume)Ordered By: Tate Reynolds 01-18-2025 Cholesterol in HDL [Mass/Vol] 37 mg/dL Low >40 [facility] Comment on above: National Cholesterol Education Program (NCEP) guidelines:<40 mg/dL: Low HDL-cholesterol (major risk factor for CHD)>= 60 mg/dL: High HDL-cholesterol (negative risk factor for CHD)HDL-cholesterol is affected by a number of factors, e.g. smoking, exercise, hormones, sex and age. Serum or plasma cholesterol measurement (mass/volume)Ordered By: Tate Reynolds on 01-18-2025 Cholesterol [Mass/Vol] 70 mg/dL <201 [facility] Comment on above: Cholesterol level, D esirable <200 mg/dLBorderline high cholesterol 200-239 mg/dLHigh cholesterol >=240 mg/dLRecommendations of the NCEP Adult Treatment Panel for the following risk-cutoff thresholds for the [place] population. Serum or plasma urea nitroge n measurement (mass/volume)Ordered By: Tate Reynolds on 01-18-2025 Urea nitrogen [Mass/Vol] 12 mg/dL 4-19 [facility] Sodium levelOrdered By: Jan Reynolds on 01-18-2025 Sodium [Moles/Vol] 135 mmol/L 133-145 [facility] TSH DL <= 0.005 mIU/L QnOrde red By: Tate Reynolds on 01-18-2025 TSH Qn 6.430 uIU/mL High 0.300-4.200 [facility] Total proteinOrdered By: Marcelo kylerkasey Reynolds on 01-18-2025 Protein [Mass/Vol] 5.4 g/dL Low 5.9-8.4 [facility] Triglycerides measurementOrd ered By: Tate Reynolds on 01-18-2025 Triglyceride [Mass/Vol] 67 mg/dL <199 [facility] Comment on above: The drugs N-Acetylcy steine and Metamizole may falsely depress this assay. Normal range: <150 mg/dLBorderline High: 150-199 mg/dLHigh: 200-499 mg/dLVery High: >500 mg/dL Vitamin B12 ser/plasOrdered By: Tate Reynolds on 01-18-2025 Cobalamin (Vitamin B12) [Mass/Vol] 696 pg/mL 180-914 [facility] White blood cell (WBC) count Ordered By: Tate Reynolds on 01-18-2025 WBC (Bld) [#/Vol] 18.0 10*3/uL High 4.4-11.0 [facility] Basic metabolic 2000 panelon 01-17-2025 Anion gap [Moles/Vol] 9 mmol/L Normal 8-15 [facility] Comment on above: Order Comment: Speci men Type: BLOOD SPECIMENOrdering Facility: [facility] Address: [address] [place] [address] Performed By: #### 2 4321-2 ####[facility]ATORYCLIA [id number] [place] [address] [place] Calcium [Mass/Vol] 8.4 mg/dL Low 8.5-10.2 [facility] Comment on above: Order Comment: Speci men Type: BLOOD SPECIMENOrdering Facility: [facility] Address: [address] [place] [address] Performed By: #### 2 4321-2 ####[facility] LABORATORYCLIA [id number] [address] OF [facility] Chloride [Moles/Vol] 103 mmol/L Normal 98-107 [facility] Comment on above: Order Comment: Speci men Type: BLOOD SPECIMENOrdering Facility: [facility] Address: [address] [place] [address] Performed By: #### 2 4321-2 ####[facility] LABORATORYCLIA [id number] [address] OF [place] CO2 [Moles/Vol] 26 mmol/L Normal 22-30 [facility] Comment on above: Order Comment: Speci men Type: BLOOD SPECIMENOrdering Facility: [facility] Address: [address] [place] [address] Performed By: #### 2 4321-2 ####[facility]ORESVILLEIA [id number] [address] OF [facility] Creatinine [Mass/Vol] 0.94 mg/dL Normal 0.58-0.96 [facility] Comment on above: Order Comment: Speci men Type: BLOOD SPECIMENOrdering Facility: [facility] Address: [address] [place] [address] Performed By: #### 2 4321-2 ####[facility] LABORATORYCLIA [id number] [address] Creatinine and Glomerular filtration rate.predicted panel (S/P/Bld) 60 mL/min/1.73m??? Normal >=60 [facility] Comment on above: Order Comment: Speci men Type: BLOOD SPECIMENOrdering Facility: [facility] Address: [address] [place] [address] Result Comment: Ely mated Glomerular Filtration Rate [...] actual GFR. Performed By: #### 2 4321-2 ####[facility] LABORATORYCLIA [id number] [place] [address] [place] Glucose [Mass/Vol] 112 mg/dL High 74-99 [facility] Comment on above: Order Comment: Adelita austin Type: BLOOD SPECIMENOrdering Facility: [facility] Address: [address] [place] [address] Result Comment: The [place] [employer] (ADA) provides guidance for cutoff [...] Standards of Medical Care in Diabetes 2016, [place] [employer]. Diabetes Care. 2016.39(Suppl 1). Performed By: #### 2 4321-2 ####[facility]ORATORYCLIA [id number] [place] [address] [place] Potassium [Moles/Vol] 4.0 mmol/L Normal 3.7-5.1 [facility] Comment on above: Order Comment: Adelita austin Type: BLOOD SPECIMENOrdering Facility: [facility] Address: [address] [place] [address] Performed By: #### 2 4321-2 ####[facility]ORATORYCLIA [id number] [place] [address] [place] Sodium [Moles/Vol] 138 mmol/L Normal 136-144 [facility] Comment on above: Order Comment: Adelita austin Type: BLOOD SPECIMENOrdering Facility: [facility] Address: [address] [place] [address] Performed By: #### 2 4321-2 ####[facility] LABORATORYCLIA [id number] [place] [address] [place] Urea nitrogen [Mass/Vol] 14 mg/dL Normal 7-21 [facility] Comment on above: Order Comment: Speci men Type: BLOOD SPECIMENOrdering Facility: [facility] Address: [address] [place] [address] Performed By: #### 2 4321-2 ####[facility] LABORATORYCLIA [id number] [address] [place] CASE MANAGEMon 01-17-2025 CASE MANAGEM Normal [facility] CASE MANAGEM Normal [facility] CBC panel Auto (Bld)on 01-17 Erythrocyte distribution width (RBC) [Ratio] 15.0 % Normal 11.5-15.0 [facility] Comment on above: Order Comment: Speci men Type: BLOOD SPECIMENOrdering Facility: [facility] Address: [address] [place] [address] Performed By: #### 5 8410-2 ####[facility]ORATORYCLIA [id number] [address] [place] Hematocrit (Bld) [Volume fraction] 30.4 % Low 36.0-46.0 [facility] Comment on above: Order Comment: Speci men Type: BLOOD SPECIMENOrdering Facility: [facility] Address: [address] [place] [address] Performed By: #### 5 8410-2 ####[facility]ORATORYCLIA [id number] [address] [place] Hemoglobin (Bld) [Mass/Vol] 9.3 g/dL Low 11.5-15.5 [facility] Comment on above: Order Comment: Speci men Type: BLOOD SPECIMENOrdering Facility: [facility] Address: [address] [place] [address] Performed By: #### 5 8410-2 ####[facility] LABORATORYCLIA [id number] [address] [place] MCH (RBC) [Entitic mass] 28.4 pg Normal 26.0-34.0 [facility] Comment on above: Order Comment: Speci men Type: BLOOD SPECIMENOrdering Facility: [facility] Address: [address] [place] [address] Performed By: #### 5 8410-2 ####[facility] LABORATORYCLIA [id number] [address] MCHC (RBC) [Mass/Vol] 30.6 g/dL Normal 30.5-36.0 [facility] Comment on above: Order Comment: Speci men Type: BLOOD SPECIMENOrdering Facility: [facility] Address: [address] [place] [address] Performed By: #### 5 8410-2 ####[facility] LABORATORYCLIA [id number] [address] MCV (RBC) [Entitic vol] 93.0 fL Normal 80.0-100.0 [facility] Comment on above: Order Comment: Speci men Type: BLOOD SPECIMENOrdering Facility: [facility] Address: [address] [place] [address] Performed By: #### 5 8410-2 ####[facility]ORATORYCLIA [id number] [address] Nucleated RBC (Bld) [#/Vol] 0.03 10*3/uL High <0.01 [facility] Comment on above: Order Comment: Speci men Type: BLOOD SPECIMENOrdering Facility: [facility] Address: [address] [place] [address] Performed By: #### 5 8410-2 ####[facility]ORATORYCLIA [id number] [address] Platelet mean volume (Bld) [Entitic vol] 9.5 fL Normal 9.0-12.7 [facility] Comment on above: Order Comment: Speci men Type: BLOOD SPECIMENOrdering Facility: [facility] Address: [address] [place] [address] Performed By: #### 5 8410-2 ####[facility]ORATORYCLIA [id number] [address] [place] Platelets (Bld) [#/Vol] 801 10*3/uL High 150-400 [facility] Comment on above: Order Comment: Speci men Type: BLOOD SPECIMENOrdering Facility: [facility] Address: [address] [place] [address] Performed By: #### 5 8410-2 ####[facility]ORATORYCLIA [id number] [place] [address] [place] RBC (Bld) [#/Vol] 3.27 10*6/uL Low 3.90-5.20 [facility] Comment on above: Order Comment: Speci men Type: BLOOD SPECIMENOrdering Facility: [facility] Address: [address] [place] [address] Performed By: #### 5 8410-2 ####[facility] LABORATORYCLIA [id number] [address] STATES OF [facility] WBC (Bld) [#/Vol] 16.08 10*3/uL High 3.70-11.00 [facility] Comment on above: Order Comment: Speci men Type: BLOOD SPECIMENOrdering Facility: [facility] Address: [address] [place] [address] Performed By: #### 5 8410-2 ####[facility] LABORATORYCLIA [id number] [address] [place] CNDSon 01-17-2025 CNDS Normal [facility] CNPNon 01-17-2025 CNPN Normal [facility] XR CHEST 2V FRONTAL/LATon XR CHEST 2V FRONTAL/LAT Normal A [facility] Basic metabolic 2000 panelon 01-16-2025 Anion gap [Moles/Vol] 9 mmol/L Normal 8-15 [facility] Comment on above: Order Comment: Speci men Type: BLOOD SPECIMENOrdering Facility: [facility] Address: [address] [place] [address] Performed By: #### 2 4321-2 ####[facility]ORATORYCLIA [id number] [address] [place] Calcium [Mass/Vol] 8.3 mg/dL Low 8.5-10.2 [facility] Comment on above: Order Comment: Speci men Type: BLOOD SPECIMENOrdering Facility: [facility] Address: [address] [place] [address] Performed By: #### 2 4321-2 ####[facility]ORATORYCLIA [id number] [place] [address] [place] Chloride [Moles/Vol] 105 mmol/L Normal 98-107 [facility] Comment on above: Order Comment: Speci men Type: BLOOD SPECIMENOrdering Facility: [facility] Address: [address] [place] [address] Performed By: #### 2 4321-2 ####[facility]ORATORYCLIA [id number] [address] [place] CO2 [Moles/Vol] 26 mmol/L Normal 22-30 [facility] Comment on above: Order Comment: Speci men Type: BLOOD SPECIMENOrdering Facility: [facility] Address: [address] [place] [address] Performed By: #### 2 4321-2 ####[facility]ORATORYCLIA [id number] [address] [place] Creatinine [Mass/Vol] 0.86 mg/dL Normal 0.58-0.96 [facility] Comment on above: Order Comment: Speci men Type: BLOOD SPECIMENOrdering Facility: [facility] Address: [address] [place] [address] Performed By: #### 2 4321-2 ####[facility]ORATORYCLIA [id number] [address] Creatinine and Glomerular filtration rate.predicted panel (S/P/Bld) 66 mL/min/1.73m??? Normal >=60 [facility] Comment on above: Order Comment: Speci men Type: BLOOD SPECIMENOrdering Facility: [facility] Address: [address] [place] [address] Result Comment: Ely mated Glomerular Filtration Rate [...] actual GFR. Performed By: #### 2 4321-2 ####[facility]ORATORYCLIA [id number] [place] [address] [place] Glucose [Mass/Vol] 88 mg/dL Normal 74-99 [facility] Comment on above: Order Comment: Speci men Type: BLOOD SPECIMENOrdering Facility: [facility] Address: [address] [place] [address] Result Comment: The [place] [employer] (ADA) provides guidance for cutoff [...] Standards of Medical Care in Diabetes 2016, [place] [employer]. Diabetes Care. 2016.39(Suppl 1). Performed By: #### 2 4321-2 ####[facility]ORATORYCLIA [id number] [place] [address] [place] Potassium [Moles/Vol] 3.9 mmol/L Normal 3.7-5.1 [facility] Comment on above: Order Comment: Speci men Type: BLOOD SPECIMENOrdering Facility: [facility] Address: [address] [place] [id number] Performed By: #### 2 4321-2 ####[facility] LABORATORYCLIA [id number] [place] [id number] [place] Sodium [Moles/Vol] 140 mmol/L Normal 136-144 [facility] Comment on above: Order Comment: Speci men Type: BLOOD SPECIMENOrdering Facility: [facility] Address: [address] [place] [address] Performed By: #### 2 4321-2 ####[facility]ORATORYCLIA [id number] [place] [id number] [place] Urea nitrogen [Mass/Vol] 14 mg/dL Normal 7-21 [facility] Comment on above: Order Comment: Speci men Type: BLOOD SPECIMENOrdering Facility: [facility] Address: [address] [place] [address] Performed By: #### 2 4321-2 ####[facility]ORATORYCLIA [id number] [address] OF [facility] CASE MANAGEMon 01-16-2025 CASE MANAGEM Normal [facility] CASE MANAGEM Normal [facility] CBC panel Auto (Bld)on 01-16 Erythrocyte distribution width (RBC) [Ratio] 15.0 % Normal 11.5-15.0 [facility] Comment on above: Order Comment: Speci men Type: BLOOD SPECIMENOrdering Facility: [facility] Address: [address] [place] [address] Performed By: #### 5 8410-2 ####[facility]ORATORYCLIA [id number] [address] [place] Hematocrit (Bld) [Volume fraction] 31.1 % Low 36.0-46.0 [facility] Comment on above: Order Comment: Speci men Type: BLOOD SPECIMENOrdering Facility: [facility] Address: [address] [place] [address] Performed By: #### 5 8410-2 ####[facility] LABORATORYCLIA [id number] [place] [id number] [place] Hemoglobin (Bld) [Mass/Vol] 9.4 g/dL Low 11.5-15.5 [facility] Comment on above: Order Comment: Speci men Type: BLOOD SPECIMENOrdering Facility: [facility] Address: [address] [place] [address] Performed By: #### 5 8410-2 ####[facility]ORATORYCLIA [id number] [address] MCH (RBC) [Entitic mass] 27.9 pg Normal 26.0-34.0 [facility] Comment on above: Order Comment: Speci men Type: BLOOD SPECIMENOrdering Facility: [facility] Address: [address] [place] [address] Performed By: #### 5 8410-2 ####[facility]ORATORYCLIA [id number] [address] MCHC (RBC) [Mass/Vol] 30.2 g/dL Low 30.5-36.0 [facility] Comment on above: Order Comment: Speci men Type: BLOOD SPECIMENOrdering Facility: [facility] Address: [address] [place] [address] Performed By: #### 5 8410-2 ####[facility]ORATORYCLIA [id number] [address] MCV (RBC) [Entitic vol] 92.3 fL Normal 80.0-100.0 [facility] Comment on above: Order Comment: Speci men Type: BLOOD SPECIMENOrdering Facility: [facility] Address: [address] [place] [address] Performed By: #### 5 8410-2 ####[facility]ORATORYCLIA [id number] [address] Nucleated RBC (Bld) [#/Vol] 0.03 10*3/uL High <0.01 [facility] Comment on above: Order Comment: Speci men Type: BLOOD SPECIMENOrdering Facility: [facility] Address: [address] [place] [address] Performed By: #### 5 8410-2 ####[facility]ORATORYCLIA [id number] [address] Platelet mean volume (Bld) [Entitic vol] 9.5 fL Normal 9.0-12.7 [facility] Comment on above: Order Comment: Speci men Type: BLOOD SPECIMENOrdering Facility: [facility] Address: [address] [place] [address] Performed By: #### 5 8410-2 ####[facility] LABORATORYCLIA [id number] [address] Platelets (Bld) [#/Vol] 842 10*3/uL High 150-400 [facility] Comment on above: Order Comment: Speci men Type: BLOOD SPECIMENOrdering Facility: [facility] Address: [address] [place] [address] Performed By: #### 5 8410-2 ####[facility]ORATORYCLIA [id number] [address] RBC (Bld) [#/Vol] 3.37 10*6/uL Low 3.90-5.20 [facility] Comment on above: Order Comment: Speci men Type: BLOOD SPECIMENOrdering Facility: [facility] Address: [address] [place] [address] Performed By: #### 5 8410-2 ####[facility]ORATORYCLIA [id number] [address] WBC (Bld) [#/Vol] 17.83 10*3/uL High 3.70-11.00 [facility] Comment on above: Order Comment: Speci men Type: BLOOD SPECIMENOrdering Facility: [facility] Address: [address] [place] [address] Performed By: #### 5 8410-2 ####[facility] LABORATORYCLIA [id number] [place] [id number] [facility] THERAPY NTon 01-16-2025 THERAPY NT Normal [facility] THERAPY NT Normal [facility] Basic metabolic 2000 panelon 01-15-2025 Anion gap [Moles/Vol] 4 mmol/L Low 8-15 [facility] Comment on above: Order Comment: Speci men Type: BLOOD SPECIMENOrdering Facility: [facility] Address: [address] [place] [address] Performed By: #### 2 4321-2 ####[facility] LABORATORYCLIA [id number] [place] [address] [place] Calcium [Mass/Vol] 8.3 mg/dL Low 8.5-10.2 [facility] Comment on above: Order Comment: Speci men Type: BLOOD SPECIMENOrdering Facility: [facility] Address: [address] [place] [address] Performed By: #### 2 4321-2 ####[facility]ORATORYCLIA [id number] [place] [address] [place] Chloride [Moles/Vol] 104 mmol/L Normal 98-107 [facility] Comment on above: Order Comment: Speci men Type: BLOOD SPECIMENOrdering Facility: [facility] Address: [address] [place] [address] Performed By: #### 2 4321-2 ####[facility]ORATORYCLIA [id number] [address] [place] CO2 [Moles/Vol] 27 mmol/L Normal 22-30 [facility] Comment on above: Order Comment: Speci men Type: BLOOD SPECIMENOrdering Facility: [facility] Address: [address] [place] [address] Performed By: #### 2 4321-2 ####[facility]ORATORYCLIA [id number] [address] [place] Creatinine [Mass/Vol] 0.89 mg/dL Normal 0.58-0.96 [facility] Comment on above: Order Comment: Speci men Type: BLOOD SPECIMENOrdering Facility: [facility] Address: [address] [place] [address] Performed By: #### 2 4321-2 ####[facility]ORATORYCLIA [id number] [address] Creatinine and Glomerular filtration rate.predicted panel (S/P/Bld) 64 mL/min/1.73m??? Normal >=60 [facility] Comment on above: Order Comment: Speci men Type: BLOOD SPECIMENOrdering Facility: [facility] Address: [address] [place] [address] Result Comment: Ely mated Glomerular Filtration Rate [...] actual GFR. Performed By: #### 2 4321-2 ####[facility]ORATORYCLIA [id number] [place] [address] [place] Glucose [Mass/Vol] 77 mg/dL Normal 74-99 [facility] Comment on above: Order Comment: Adelita austin Type: BLOOD SPECIMENOrdering Facility: [facility] Address: [address] [place] [address] Result Comment: The [place] [employer] (ADA) provides guidance for cutoff [...] Standards of Medical Care in Diabetes 2016, [place] [employer]. Diabetes Care. 2016.39(Suppl 1). Performed By: #### 2 4321-2 ####[facility] LABORATORYCLIA [id number] [place] [address] [place] Potassium [Moles/Vol] 4.3 mmol/L Normal 3.7-5.1 [facility] Comment on above: Order Comment: Adelita austin Type: BLOOD SPECIMENOrdering Facility: [facility] Address: [address] [place] [address] Performed By: #### 2 4321-2 ####[facility] LABORATORYCLIA [id number] [place] [address] Sodium [Moles/Vol] 135 mmol/L Low 136-144 [facility] Comment on above: Order Comment: Speci men Type: BLOOD SPECIMENOrdering Facility: [facility] Address: [address] [place] [address] Performed By: #### 2 4321-2 ####[facility] LABORATORYCLIA [id number] [address] [place] Urea nitrogen [Mass/Vol] 14 mg/dL Normal 7-21 [facility] Comment on above: Order Comment: Speci men Type: BLOOD SPECIMENOrdering Facility: [facility] Address: [address] [place] [address] Performed By: #### 2 4321-2 ####[facility] LABORATORYCLIA [id number] [address] OF [facility] CBC panel Auto (Bld)on 01-15 Erythrocyte distribution width (RBC) [Ratio] 15.1 % High 11.5-15.0 [facility] Comment on above: Order Comment: Speci men Type: BLOOD SPECIMENOrdering Facility: [facility] Address: [address] [place] [address] Performed By: #### 5 8410-2 ####[facility] LABORATORYCLIA [id number] [address] STATES OF [facility] Hematocrit (Bld) [Volume fraction] 30.0 % Low 36.0-46.0 [facility] Comment on above: Order Comment: Speci men Type: BLOOD SPECIMENOrdering Facility: [facility] Address: [address] [place] [address] Performed By: #### 5 8410-2 ####[facility] LABORATORYCLIA [id number] [address] [place] Hemoglobin (Bld) [Mass/Vol] 9.7 g/dL Low 11.5-15.5 [facility] Comment on above: Order Comment: Speci men Type: BLOOD SPECIMENOrdering Facility: [facility] Address: [address] [place] [address] Performed By: #### 5 8410-2 ####[facility] LABORATORYCLIA [id number] [address] MCH (RBC) [Entitic mass] 29.0 pg Normal 26.0-34.0 [facility] Comment on above: Order Comment: Speci men Type: BLOOD SPECIMENOrdering Facility: [facility] Address: [address] [place] [address] Performed By: #### 5 8410-2 ####[facility] LABORATORYCLIA [id number] [address] MCHC (RBC) [Mass/Vol] 32.3 g/dL Normal 30.5-36.0 [facility] Comment on above: Order Comment: Speci men Type: BLOOD SPECIMENOrdering Facility: [facility] Address: [address] [place] [address] Performed By: #### 5 8410-2 ####[facility] LABORATORYCLIA [id number] [address] MCV (RBC) [Entitic vol] 89.8 fL Normal 80.0-100.0 [facility] Comment on above: Order Comment: Speci men Type: BLOOD SPECIMENOrdering Facility: [facility] Address: [address] [place] [address] Performed By: #### 5 8410-2 ####[facility]ORATORYCLIA [id number] [address] Nucleated RBC (Bld) [#/Vol] 0.03 10*3/uL High <0.01 [facility] Comment on above: Order Comment: Speci men Type: BLOOD SPECIMENOrdering Facility: [facility] Address: [address] [place] [address] Performed By: #### 5 8410-2 ####[facility] LABORATORYCLIA [id number] [address] [place] Platelet mean volume (Bld) [Entitic vol] 9.8 fL Normal 9.0-12.7 [facility] Comment on above: Order Comment: Speci men Type: BLOOD SPECIMENOrdering Facility: [facility] Address: [address] [place] [address] Performed By: #### 5 8410-2 ####[facility] LABORATORYCLIA [id number] [address] OF [facility] Platelets (Bld) [#/Vol] 727 10*3/uL High 150-400 [facility] Comment on above: Order Comment: Speci men Type: BLOOD SPECIMENOrdering Facility: [facility] Address: [address] [place] [address] Performed By: #### 5 8410-2 ####[facility] LABORATORYCLIA [id number] [place] [address] [place] [facility] RBC (Bld) [#/Vol] 3.34 10*6/uL Low 3.90-5.20 [facility] Comment on above: Order Comment: Speci men Type: BLOOD SPECIMENOrdering Facility: [facility] Address: [address] [place] [address] Performed By: #### 5 8410-2 ####[facility] LABORATORYCLIA [id number] [address] OF [facility] WBC (Bld) [#/Vol] 13.81 10*3/uL High 3.70-11.00 [facility] Comment on above: Order Comment: Speci men Type: BLOOD SPECIMENOrdering Facility: [facility] Address: [address] [place] [address] Performed By: #### 5 8410-2 ####[facility] LABORATORYCLIA [id number] [address] [place] THERAPY NTon 01-15-2025 THERAPY NT Normal [facility] Basic metabolic 2000 panelon 01-14-2025 Anion gap [Moles/Vol] 5 mmol/L Low 8-15 [facility] Comment on above: Order Comment: Speci men Type: BLOOD SPECIMENOrdering Facility: [facility] Address: [address] [place] [address] Performed By: #### 2 4321-2 ####[facility] LABORATORYCLIA [id number] [place] [address] [place] Calcium [Mass/Vol] 8.0 mg/dL Low 8.5-10.2 [facility] Comment on above: Order Comment: Speci men Type: BLOOD SPECIMENOrdering Facility: [facility] Address: [address] [place] [address] Performed By: #### 2 4321-2 ####[facility] LABORATORYCLIA [id number] [address] [place] Chloride [Moles/Vol] 104 mmol/L Normal 98-107 [facility] Comment on above: Order Comment: Speci men Type: BLOOD SPECIMENOrdering Facility: [facility] Address: [address] [place] [address] Performed By: #### 2 4321-2 ####[facility] LABORATORYCLIA [id number] [address] STATES OF [facility] CO2 [Moles/Vol] 28 mmol/L Normal 22-30 [facility] Comment on above: Order Comment: Speci men Type: BLOOD SPECIMENOrdering Facility: [facility] Address: [address] [place] [address] Performed By: #### 2 4321-2 ####[facility] LABORATORYCLIA [id number] [address] [place] Creatinine [Mass/Vol] 0.77 mg/dL Normal 0.58-0.96 [facility] Comment on above: Order Comment: Speci men Type: BLOOD SPECIMENOrdering Facility: [facility] Address: [address] [place] [address] Performed By: #### 2 4321-2 ####[facility] LABORATORYCLIA [id number] [address] Creatinine and Glomerular filtration rate.predicted panel (S/P/Bld) 76 mL/min/1.73m??? Normal >=60 [facility] Comment on above: Order Comment: Speci men Type: BLOOD SPECIMENOrdering Facility: [facility] Address: [address] [place], [place] [address] Result Comment: Ely mated Glomerular Filtration Rate [...] actual GFR. Performed By: #### 2 4321-2 ####[facility] LABORATORYCLIA [id number] [place] [address] [place] Glucose [Mass/Vol] 92 mg/dL Normal 74-99 [facility] Comment on above: Order Comment: Adelita austin Type: BLOOD SPECIMENOrdering Facility: [facility] Address: [address] [place] [address] Result Comment: The [place] Diabetes [employer] (ADA) provides guidance for cutoff [...] Standards of Medical Care in Diabetes 2016, [place] [employer]. Diabetes Care. 2016.39(Suppl 1). Performed By: #### 2 4321-2 ####[facility] LABORATORYCLIA [id number] [place] [address] [place] Potassium [Moles/Vol] 4.3 mmol/L Normal 3.7-5.1 [facility] Comment on above: Order Comment: Adelita [facility] Type: BLOOD SPECIMENOrdering Facility: [facility] Address: [address] [id number] Performed By: #### 2 4321-2 ####[facility] LABORATORYCLIA [id number] [address] STATES OF [facility] Sodium [Moles/Vol] 137 mmol/L Normal 136-144 [facility] Comment on above: Order Comment: Speci men Type: BLOOD SPECIMENOrdering Facility: [facility] Address: [address] [place] [address] Performed By: #### 2 4321-2 ####[facility] LABORATORYCLIA [id number] [address] [place] Urea nitrogen [Mass/Vol] 14 mg/dL Normal 7-21 [facility] Comment on above: Order Comment: Speci men Type: BLOOD SPECIMENOrdering Facility: [facility] Address: [address] [place] [address] Performed By: #### 2 4321-2 ####[facility] LABORATORYCLIA [id number] [address] [place] CBC panel Auto (Bld)on 01-14 Erythrocyte distribution width (RBC) [Ratio] 14.8 % Normal 11.5-15.0 [facility] Comment on above: Order Comment: Speci men Type: BLOOD SPECIMENOrdering Facility: [facility] Address: [address] [place] [address] Performed By: #### 5 8410-2 ####[facility] LABORATORYCLIA [id number] [address] [place] Hematocrit (Bld) [Volume fraction] 30.7 % Low 36.0-46.0 [facility] Comment on above: Order Comment: Speci men Type: BLOOD SPECIMENOrdering Facility: [facility] Address: [address] [place] [address] Performed By: #### 5 8410-2 ####[facility] LABORATORYCLIA [id number] [address] [place] Hemoglobin (Bld) [Mass/Vol] 9.3 g/dL Low 11.5-15.5 [facility] Comment on above: Order Comment: Speci men Type: BLOOD SPECIMENOrdering Facility: [facility] Address: [address] [place] [address] Performed By: #### 5 8410-2 ####[facility] LABORATORYCLIA [id number] [address] MCH (RBC) [Entitic mass] 28.0 pg Normal 26.0-34.0 [facility] Comment on above: Order Comment: Speci men Type: BLOOD SPECIMENOrdering Facility: [facility] Address: [address] [place] [address] Performed By: #### 5 8410-2 ####[facility] LABORATORYCLIA [id number] [address] MCHC (RBC) [Mass/Vol] 30.3 g/dL Low 30.5-36.0 [facility] Comment on above: Order Comment: Speci men Type: BLOOD SPECIMENOrdering Facility: [facility] Address: [address] [place] [address] Performed By: #### 5 8410-2 ####[facility] LABORATORYCLIA [id number] [address] MCV (RBC) [Entitic vol] 92.5 fL Normal 80.0-100.0 [facility] Comment on above: Order Comment: Speci men Type: BLOOD SPECIMENOrdering Facility: [facility] Address: [address] [place] [address] Performed By: #### 5 8410-2 ####[facility] LABORATORYCLIA [id number] [address] Nucleated RBC (Bld) [#/Vol] 0.04 10*3/uL High <0.01 [facility] Comment on above: Order Comment: Speci men Type: BLOOD SPECIMENOrdering Facility: [facility] Address: [address] [place] [address] Performed By: #### 5 8410-2 ####[facility] LABORATORYCLIA [id number] [address] Platelet mean volume (Bld) [Entitic vol] 9.9 fL Normal 9.0-12.7 [facility] Comment on above: Order Comment: Speci men Type: BLOOD SPECIMENOrdering Facility: [facility] Address: [address] [place] [address] Performed By: #### 5 8410-2 ####[facility] LABORATORYCLIA [id number] [address] OF [place] Platelets (Bld) [#/Vol] 705 10*3/uL High 150-400 [facility] Comment on above: Order Comment: Speci men Type: BLOOD SPECIMENOrdering Facility: [facility] Address: [address] [place] [address] Performed By: #### 5 8410-2 ####[facility] LABORATORYCLIA [id number] [place] [address] [place] RBC (Bld) [#/Vol] 3.32 10*6/uL Low 3.90-5.20 [facility] Comment on above: Order Comment: Speci men Type: BLOOD SPECIMENOrdering Facility: [facility] Address: [address] [place] [address] Performed By: #### 5 8410-2 ####[facility] LABORATORYCLIA [id number] [address] [place] WBC (Bld) [#/Vol] 12.15 10*3/uL High 3.70-11.00 [facility] Comment on above: Order Comment: Speci men Type: BLOOD SPECIMENOrdering Facility: [facility] Address: [address] [place] [address] Performed By: #### 5 8410-2 ####[facility] LABORATORYCLIA [id number] [address] [place] XR CHEST 1V FRONTALon 2024 XR CHEST 1V FRONTAL Normal [facility] ALLIED HEALTHon 01-13-2025 ALLIED HEALTH Normal [facility] Basic metabolic 2000 panelon 01-13-2025 Anion gap [Moles/Vol] 9 mmol/L Normal 8-15 [facility] Comment on above: Order Comment: Speci men Type: BLOOD SPECIMENOrdering Facility: [facility] Address: [address] [place] [address] Performed By: #### 2 4321-2 ####[facility]ORATORYCLIA [id number] [address] [place] Calcium [Mass/Vol] 8.0 mg/dL Low 8.5-10.2 [facility] Comment on above: Order Comment: Speci men Type: BLOOD SPECIMENOrdering Facility: [facility] Address: [address] [place] [address] Performed By: #### 2 4321-2 ####[facility] LABORATORYCLIA [id number] [address] [place] Chloride [Moles/Vol] 103 mmol/L Normal 98-107 [facility] Comment on above: Order Comment: Speci men Type: BLOOD SPECIMENOrdering Facility: [facility] Address: [address] [place] [address] Performed By: #### 2 4321-2 ####[facility] LABORATORYCLIA [id number] [address] [place] CO2 [Moles/Vol] 25 mmol/L Normal 22-30 [facility] Comment on above: Order Comment: Speci men Type: BLOOD SPECIMENOrdering Facility: [facility] Address: [address] [place] [address] Performed By: #### 2 4321-2 ####[facility] LABORATORYCLIA [id number] [address] [place] Creatinine [Mass/Vol] 1.03 mg/dL High 0.58-0.96 [facility] Comment on above: Order Comment: Speci men Type: BLOOD SPECIMENOrdering Facility: [facility] Address: [address] [place] [address] Performed By: #### 2 4321-2 ####[facility] LABORATORYCLIA [id number] [address] [place] Creatinine and Glomerular filtration rate.predicted panel (S/P/Bld) 53 mL/min/1.73m??? Low >=60 [facility] Comment on above: Order Comment: Adelita austin Type: BLOOD SPECIMENOrdering Facility: [facility] Address: [address] [place] [address] Result Comment: Ely mated Glomerular Filtration Rate [...] actual GFR. Performed By: #### 2 4321-2 ####[facility] LABORATORYCLIA [id number] [place] [address] [place] Glucose [Mass/Vol] 85 mg/dL Normal 74-99 [facility] Comment on above: Order Comment: Adelita austin Type: BLOOD SPECIMENOrdering Facility: [facility] Address: [address] [place] [address] Result Comment: The [place] Diabetes [employer] (ADA) provides guidance for cutoff [...] Standards of Medical Care in Diabetes 2016, [place] [employer]. Diabetes Care. 2016.39(Suppl 1). Performed By: #### 2 4321-2 ####[facility] LABORATORYCLIA [id number] [place] [address] [place] Potassium [Moles/Vol] 3.6 mmol/L Low 3.7-5.1 [facility] Comment on above: Order Comment: Adelita austin Type: BLOOD SPECIMENOrdering Facility: [facility] Address: [address] [place], [place] [address] Performed By: #### 2 4321-2 ####[facility] LABORATORYCLIA [id number] [address] STATES [facility] Sodium [Moles/Vol] 137 mmol/L Normal 136-144 [facility] Comment on above: Order Comment: Speci men Type: BLOOD SPECIMENOrdering Facility: [facility] Address: [address] [place] [address] Performed By: #### 2 4321-2 ####[facility] LABORATORYCLIA [id number] [address] [place] Urea nitrogen [Mass/Vol] 17 mg/dL Normal 7-21 [facility] Comment on above: Order Comment: Speci men Type: BLOOD SPECIMENOrdering Facility: [facility] Address: [address] [place] [address] Performed By: #### 2 4321-2 ####[facility] LABORATORYCLIA [id number] [address] STATES OF [facility] CASE MANAGEMon 01-13-2025 CASE MANAGEM Normal [facility] CBC panel Auto (Bld)on 01-13 Erythrocyte distribution width (RBC) [Ratio] 14.6 % Normal 11.5-15.0 [facility] Comment on above: Order Comment: Speci men Type: BLOOD SPECIMENOrdering Facility: [facility] Address: [address] [place] [address] Performed By: #### 5 8410-2 ####[facility] LABORATORYCLIA [id number] [address] [place] Hematocrit (Bld) [Volume fraction] 30.5 % Low 36.0-46.0 [facility] Comment on above: Order Comment: Speci men Type: BLOOD SPECIMENOrdering Facility: [facility] Address: [address] [place] [address] Performed By: #### 5 8410-2 ####[facility] LABORATORYCLIA [id number] [address] [place] Hemoglobin (Bld) [Mass/Vol] 9.6 g/dL Low 11.5-15.5 [facility] Comment on above: Order Comment: Speci men Type: BLOOD SPECIMENOrdering Facility: [facility] Address: [address] [place] [address] Performed By: #### 5 8410-2 ####[facility] LABORATORYCLIA [id number] [address] MCH (RBC) [Entitic mass] 28.4 pg Normal 26.0-34.0 [facility] Comment on above: Order Comment: Speci men Type: BLOOD SPECIMENOrdering Facility: [facility] Address: [address] [place] [address] Performed By: #### 5 8410-2 ####[facility] LABORATORYCLIA [id number] [address] [place] MCHC (RBC) [Mass/Vol] 31.5 g/dL Normal 30.5-36.0 [facility] Comment on above: Order Comment: Speci men Type: BLOOD SPECIMENOrdering Facility: [facility] Address: [address] [place] [address] Performed By: #### 5 8410-2 ####[facility] LABORATORYCLIA [id number] [address] MCV (RBC) [Entitic vol] 90.2 fL Normal 80.0-100.0 [facility] Comment on above: Order Comment: Speci men Type: BLOOD SPECIMENOrdering Facility: [facility] Address: [address] [place] [address] Performed By: #### 5 8410-2 ####[facility] LABORATORYCLIA [id number] [address] Nucleated RBC (Bld) [#/Vol] 0.05 10*3/uL High <0.01 [facility] Comment on above: Order Comment: Speci men Type: BLOOD SPECIMENOrdering Facility: [facility] Address: [address] [place] [address] Performed By: #### 5 8410-2 ####[facility] LABORATORYCLIA [id number] [place] [address] [place] Platelet mean volume (Bld) [Entitic vol] 9.9 fL Normal 9.0-12.7 [facility] Comment on above: Order Comment: Speci men Type: BLOOD SPECIMENOrdering Facility: [facility] Address: [address] [place] [address] Performed By: #### 5 8410-2 ####[facility] LABORATORYCLIA [id number] [place] [address] [place] Platelets (Bld) [#/Vol] 597 10*3/uL High 150-400 [facility] Comment on above: Order Comment: Speci men Type: BLOOD SPECIMENOrdering Facility: [facility] Address: [address] [place] [address] Performed By: #### 5 8410-2 ####[facility] LABORATORYCLIA [id number] [place] [address] [place] RBC (Bld) [#/Vol] 3.38 10*6/uL Low 3.90-5.20 [facility] Comment on above: Order Comment: Speci men Type: BLOOD SPECIMENOrdering Facility: [facility] Address: [address] [place] [address] Performed By: #### 5 8410-2 ####[facility] LABORATORYCLIA [id number] [place] [address] [place] WBC (Bld) [#/Vol] 11.87 10*3/uL High 3.70-11.00 [facility] Comment on above: Order Comment: Speci men Type: BLOOD SPECIMENOrdering Facility: [facility] Address: [address] [place] [address] Performed By: #### 5 8410-2 ####[facility] LABORATORYCLIA [id number] [place] [address] [place] NUTRITIONon 01-13-2025 NUTRITION Normal [facility] XR CHEST 1V FRONTALon 2024 XR CHEST 1V FRONTAL Normal [facility] ALLIED HEALTHon 01-12-2025 ALLIED HEALTH Normal [facility] Basic metabolic 2000 panelon 01-12-2025 Anion gap [Moles/Vol] 10 mmol/L Normal 8-15 [facility] Comment on above: Order Comment: Speci men Type: BLOOD SPECIMENOrdering Facility: [facility] Address: [address] [place] [address] Performed By: #### 2 4321-2 ####[facility] LABORATORYCLIA [id number] [place] [address] [place] Calcium [Mass/Vol] 8.0 mg/dL Low 8.5-10.2 [facility] Comment on above: Order Comment: Speci men Type: BLOOD SPECIMENOrdering Facility: [facility] Address: [address] [place] [address] Performed By: #### 2 4321-2 ####[facility] LABORATORYCLIA [id number] [place] [address] [place] Chloride [Moles/Vol] 100 mmol/L Normal 98-107 [facility] Comment on above: Order Comment: Speci men Type: BLOOD SPECIMENOrdering Facility: [facility] Address: [address] [place] [address] Performed By: #### 2 4321-2 ####[facility] LABORATORYCLIA [id number] [place] [address] [place] CO2 [Moles/Vol] 23 mmol/L Normal 22-30 [facility] Comment on above: Order Comment: Speci men Type: BLOOD SPECIMENOrdering Facility: [facility] Address: [address] [place] [address] Performed By: #### 2 4321-2 ####[facility] LABORATORYCLIA [id number] [place] [address] [place] Creatinine [Mass/Vol] 1.07 mg/dL High 0.58-0.96 [facility] Comment on above: Order Comment: Speci men Type: BLOOD SPECIMENOrdering Facility: [facility] Address: [address] [place] [address] Performed By: #### 2 4321-2 ####[facility]REMENCLIA [id number] [place] [id number] [facility] Creatinine and Glomerular filtration rate.predicted panel (S/P/Bld) 51 mL/min/1.73m??? Low >=60 [facility] Comment on above: Order Comment: Adelita austin Type: BLOOD SPECIMENOrdering Facility: [facility] Address: [address] [place] [address] Result Comment: Ely mated Glomerular Filtration Rate [...] actual GFR. Performed By: #### 2 4321-2 ####[facility]ORESVILLEIA [id number] [address] STATES [facility] Glucose [Mass/Vol] 94 mg/dL Normal 74-99 [facility] Comment on above: Order Comment: Adelita austin Type: BLOOD SPECIMENOrdering Facility: [facility] Address: [address] [place] [address] Result Comment: The [place] Diabetes [employer] (ADA) provides guidance for cutoff [...] Standards of Medical Care in Diabetes 2016, [place] [employer]. Diabetes Care. 2016.39(Suppl 1). Performed By: #### 2 4321-2 ####[facility] LABORATORYIA [id number] [place] [id number] [place] Potassium [Moles/Vol] 4.1 mmol/L Normal 3.7-5.1 [facility] Comment on above: Order Comment: Speci men Type: BLOOD SPECIMENOrdering Facility: [facility] Address: [address] [place] [address] Performed By: #### 2 4321-2 ####[facility] LABORATORYCLIA [id number] [address] [place] Sodium [Moles/Vol] 133 mmol/L Low 136-144 [facility] Comment on above: Order Comment: Speci men Type: BLOOD SPECIMENOrdering Facility: [facility] Address: [address] [place] [address] Performed By: #### 2 4321-2 ####[facility] LABORATORYCLIA [id number] [address] [place] Urea nitrogen [Mass/Vol] 16 mg/dL Normal 7-21 [facility] Comment on above: Order Comment: Speci men Type: BLOOD SPECIMENOrdering Facility: [facility] Address: [address] [place] [address] Performed By: #### 2 4321-2 ####[facility] LABORATORYCLIA [id number] [address] [place] CASE MANAGEMon 01-12-2025 CASE MANAGEM Normal [facility] CASE MANAGEM Normal [facility] CBC panel Auto (Bld)on 01-12 Erythrocyte distribution width (RBC) [Ratio] 14.5 % Normal 11.5-15.0 [facility] Comment on above: Order Comment: Speci men Type: BLOOD SPECIMENOrdering Facility: [facility] Address: [address] [place] [address] Performed By: #### 5 8410-2 ####[facility] LABORATORYCLIA [id number] [address] [place] Hematocrit (Bld) [Volume fraction] 33.1 % Low 36.0-46.0 [facility] Comment on above: Order Comment: Speci men Type: BLOOD SPECIMENOrdering Facility: [facility] Address: [address] [place] [address] Performed By: #### 5 8410-2 ####[facility] LABORATORYCLIA [id number] [address] Hemoglobin (Bld) [Mass/Vol] 10.4 g/dL Low 11.5-15.5 [facility] Comment on above: Order Comment: Speci men Type: BLOOD SPECIMENOrdering Facility: [facility] Address: [address] [place] [address] Performed By: #### 5 8410-2 ####[facility] LABORATORYCLIA [id number] [address] OF [facility] MCH (RBC) [Entitic mass] 28.5 pg Normal 26.0-34.0 [facility] Comment on above: Order Comment: Speci men Type: BLOOD SPECIMENOrdering Facility: [facility] Address: [address] [place] [address] Performed By: #### 5 8410-2 ####[facility] LABORATORYCLIA [id number] [address] MCHC (RBC) [Mass/Vol] 31.4 g/dL Normal 30.5-36.0 [facility] Comment on above: Order Comment: Speci men Type: BLOOD SPECIMENOrdering Facility: [facility] Address: [address] [place] [address] Performed By: #### 5 8410-2 ####[facility] LABORATORYCLIA [id number] [address] MCV (RBC) [Entitic vol] 90.7 fL Normal 80.0-100.0 [facility] Comment on above: Order Comment: Speci men Type: BLOOD SPECIMENOrdering Facility: [facility] Address: [address] [place] [address] Performed By: #### 5 8410-2 ####[facility] LABORATORYCLIA [id number] [place] [address] [place] Nucleated RBC (Bld) [#/Vol] 0.09 10*3/uL High <0.01 [facility] Comment on above: Order Comment: Speci men Type: BLOOD SPECIMENOrdering Facility: [facility] Address: [address] [place] [address] Performed By: #### 5 8410-2 ####[facility] LABORATORYCLIA [id number] [place] [address] [place] Platelet mean volume (Bld) [Entitic vol] 10.1 fL Normal 9.0-12.7 [facility] Comment on above: Order Comment: Speci men Type: BLOOD SPECIMENOrdering Facility: [facility] Address: [address] [place] [address] Performed By: #### 5 8410-2 ####[facility] LABORATORYCLIA [id number] [place] [address] [place] Platelets (Bld) [#/Vol] 559 10*3/uL High 150-400 [facility] Comment on above: Order Comment: Speci men Type: BLOOD SPECIMENOrdering Facility: [facility] Address: [address] [place] [address] Performed By: #### 5 8410-2 ####[facility] LABORATORYCLIA [id number] [place] [address] [place] RBC (Bld) [#/Vol] 3.65 10*6/uL Low 3.90-5.20 [facility] Comment on above: Order Comment: Speci men Type: BLOOD SPECIMENOrdering Facility: [facility] Address: [address] [place] [address] Performed By: #### 5 8410-2 ####[facility] LABORATORYCLIA [id number] [place] [address] [place] WBC (Bld) [#/Vol] 9.06 10*3/uL Normal 3.70-11.00 [facility] Comment on above: Order Comment: Speci men Type: BLOOD SPECIMENOrdering Facility: [facility] Address: [address] [place] [address] Performed By: #### 5 8410-2 ####[facility] LABORATORYCLIA [id number] [place] [address] [place] XR CHEST 1V FRONTALon 2024 XR CHEST 1V FRONTAL Normal [facility] XR CHEST 2V FRONTAL/LATon XR CHEST 2V FRONTAL/LAT Normal A [facility] ALLIED HEALTHon 01-11-2025 ALLIED HEALTH Normal [facility] Basic metabolic 2000 panelon 01-11-2025 Anion gap [Moles/Vol] 8 mmol/L Normal 8-15 [facility] Comment on above: Order Comment: Speci men Type: BLOOD SPECIMENOrdering Facility: [facility] Address: [address] [place] [address] Performed By: #### 2 4321-2 ####[facility] LABORATORYCLIA [id number] [place] [address] [place] Calcium [Mass/Vol] 8.1 mg/dL Low 8.5-10.2 [facility] Comment on above: Order Comment: Speci men Type: BLOOD SPECIMENOrdering Facility: [facility] Address: [address] [place] [address] Performed By: #### 2 4321-2 ####[facility] LABORATORYCLIA [id number] [place] [address] [place] Chloride [Moles/Vol] 99 mmol/L Normal 98-107 [facility] Comment on above: Order Comment: Speci men Type: BLOOD SPECIMENOrdering Facility: [facility] Address: [address] [place] [address] Performed By: #### 2 4321-2 ####[facility] LABORATORYCLIA [id number] [place] [address] [place] CO2 [Moles/Vol] 24 mmol/L Normal 22-30 [facility] Comment on above: Order Comment: Speci men Type: BLOOD SPECIMENOrdering Facility: [facility] Address: [address] [place] [address] Performed By: #### 2 4321-2 ####[facility] LABORATORYCLIA [id number] [place] [address] [place] Creatinine [Mass/Vol] 1.08 mg/dL High 0.58-0.96 [facility] Comment on above: Order Comment: Adelita austin Type: BLOOD SPECIMENOrdering Facility: [facility] Address: [address] [place] [address] Performed By: #### 2 4321-2 ####[facility]ORESVILLEIA [id number] [address] Creatinine and Glomerular filtration rate.predicted panel (S/P/Bld) 50 mL/min/1.73m??? Low >=60 [facility] Comment on above: Order Comment: Adelita austin Type: BLOOD SPECIMENOrdering Facility: [facility] Address: [address] [place] [address] Result Comment: Ely mated Glomerular Filtration Rate [...] actual GFR. Performed By: #### 2 4321-2 ####[facility]ESVILLEIA [id number] [address] [place] Glucose [Mass/Vol] 89 mg/dL Normal 74-99 [facility] Comment on above: Order Comment: Adelita austin Type: BLOOD SPECIMENOrdering Facility: [facility] Address: [address] [place] [address] Result Comment: The [place] Diabetes [employer] (ADA) provides guidance for cutoff [...] Standards of Medical Care in Diabetes 2016, [place] [employer]. Diabetes Care. 2016.39(Suppl 1). Performed By: #### 2 4321-2 ####[facility] LABORATORYCLIA [id number] [place] [address] [place] Potassium [Moles/Vol] Normal [facility] Comment on above: Order Comment: Adelita austin Type: BLOOD SPECIMENOrdering Facility: [facility] Address: [address] [place] [address] Result Comment: Unab le to assay due to interference from hemolysis. Suggest reorder as clinically indicated. Performed By: #### 2 4321-2 ####[facility] LABORATORYCLIA [id number] [address] [place] Sodium [Moles/Vol] 131 mmol/L Low 136-144 [facility] Comment on above: Order Comment: Adelita austin Type: BLOOD SPECIMENOrdering Facility: [facility] Address: [address] [place] [address] Performed By: #### 2 4321-2 ####[facility] LABORATORYCLIA [id number] [address] [place] Urea nitrogen [Mass/Vol] 16 mg/dL Normal 7-21 [facility] Comment on above: Order Comment: Adelita austin Type: BLOOD SPECIMENOrdering Facility: [facility] Address: [address] [place] [address] Performed By: #### 2 4321-2 ####[facility] LABORATORYCLIA [id number] [place] [address] [place] CASE MANAGEMon 01-11-2025 CASE MANAGEM Normal [facility] CASE MANAGEM Normal [facility] CBC panel Auto (Bld)on 01-11 Erythrocyte distribution width (RBC) [Ratio] 14.5 % Normal 11.5-15.0 [facility] Comment on above: Order Comment: Adelita austin Type: BLOOD SPECIMENOrdering Facility: [facility] Address: [address] [place] [address] Performed By: #### 5 8410-2 ####[facility] LABORATORYCLIA [id number] [address] OF [facility] Hematocrit (Bld) [Volume fraction] 32.2 % Low 36.0-46.0 [facility] Comment on above: Order Comment: Speci men Type: BLOOD SPECIMENOrdering Facility: [facility] Address: [address] [place] [address] Performed By: #### 5 8410-2 ####[facility] LABORATORYCLIA [id number] [address] OF [facility] Hemoglobin (Bld) [Mass/Vol] 10.3 g/dL Low 11.5-15.5 [facility] Comment on above: Order Comment: Speci men Type: BLOOD SPECIMENOrdering Facility: [facility] Address: [address] [place] [address] Performed By: #### 5 8410-2 ####[facility] LABORATORYCLIA [id number] [address] OF [facility] MCH (RBC) [Entitic mass] 28.9 pg Normal 26.0-34.0 [facility] Comment on above: Order Comment: Speci men Type: BLOOD SPECIMENOrdering Facility: [facility] Address: [address] [place] [address] Performed By: #### 5 8410-2 ####[facility]ORATORYCLIA [id number] [address] [place] MCHC (RBC) [Mass/Vol] 32.0 g/dL Normal 30.5-36.0 [facility] Comment on above: Order Comment: Speci men Type: BLOOD SPECIMENOrdering Facility: [facility] Address: [address] [place] [address] Performed By: #### 5 8410-2 ####[facility] LABORATORYCLIA [id number] [address] [place] MCV (RBC) [Entitic vol] 90.4 fL Normal 80.0-100.0 [facility] Comment on above: Order Comment: Speci men Type: BLOOD SPECIMENOrdering Facility: [facility] Address: [address] [place] [address] Performed By: #### 5 8410-2 ####[facility] LABORATORYCLIA [id number] [address] [place] Nucleated RBC (Bld) [#/Vol] 0.14 10*3/uL High <0.01 [facility] Comment on above: Order Comment: Speci men Type: BLOOD SPECIMENOrdering Facility: [facility] Address: [address] [place] [address] Performed By: #### 5 8410-2 ####[facility] LABORATORYCLIA [id number] [address] [place] Platelet mean volume (Bld) [Entitic vol] 10.2 fL Normal 9.0-12.7 [facility] Comment on above: Order Comment: Speci men Type: BLOOD SPECIMENOrdering Facility: [facility] Address: [address] [place] [address] Performed By: #### 5 8410-2 ####[facility] LABORATORYCLIA [id number] [address] [place] Platelets (Bld) [#/Vol] 442 10*3/uL High 150-400 [facility] Comment on above: Order Comment: Speci men Type: BLOOD SPECIMENOrdering Facility: [facility] Address: [address] [place] [address] Performed By: #### 5 8410-2 ####[facility]ORATORYCLIA [id number] [place] [address] [place] RBC (Bld) [#/Vol] 3.56 10*6/uL Low 3.90-5.20 [facility] Comment on above: Order Comment: Speci men Type: BLOOD SPECIMENOrdering Facility: [facility] Address: [address] [place] [address] Performed By: #### 5 8410-2 ####[facility] LABORATORYCLIA [id number] [address] STATES OF [facility] WBC (Bld) [#/Vol] 8.05 10*3/uL Normal 3.70-11.00 [facility] Comment on above: Order Comment: Speci men Type: BLOOD SPECIMENOrdering Facility: [facility] Address: [address] [place] [address] Performed By: #### 5 8410-2 ####[facility] LABORATORYCLIA [id number] [address] POTASSIUMon 01-11-2025 Potassium [Moles/Vol] 3.9 mmol/L Normal 3.7-5.1 [facility] Comment on above: Order Comment: Speci men Type: BLOOD SPECIMENOrdering Facility: [facility] Address: [address] [place] [address] Performed By: #### K 1 ####[facility]REMENCLIA [id number] [address] THERAPY NTon 01-11-2025 THERAPY NT Normal [facility] XR CHEST 1V FRONTALon 2024 XR CHEST 1V FRONTAL Normal [facility] 25(OH)D3 SerPl-mCncon 2024 25-hydroxyvitamin D3 [Mass/Vol] 44.6 ng/mL Normal >=30.0 [facility] Comment on above: Order Comment: Speci men Type: BLOOD SPECIMENOrdering Facility: [facility] Address: [address] [place] [address] Result Comment: Clas sification of 25 [place] Vitamin D status:Deficiency: <= 20.0 ng/ml.Insufficiency: 21.0-29.0 ng/ml.Sufficiency: >= 30.0 ng/ml. Performed By: #### 1 989-3 ####[facility] LABORATORYCLIA [id number] [address] Amylase (Body fld) [Catalyti c activity/Vol]on 01-10-2025 Fluid Nom (Body fld) Abdomen Normal [facility] Comment on above: Order Comment: Speci men Type: FLUID SPECIMENOrdering Facility: [facility] Address: [address] [place] [address] Result Comment: DWAINE chavis Performed By: #### 1 795-4 ####[facility] LABORATORYCLIA [id number] [place] [address] [place] Amylase Fld-cCncon 5 Amylase (Body fld) [Catalytic activity/Vol] 19 U/L Normal See Comment [facility] Comment on above: Order Comment: Speci men Type: FLUID SPECIMENOrdering Facility: [facility] Address: [address] [place] [address] Result Comment: PLEU RAL FLUIDS:Amylase measurement in [...] Clinical Chemistry; Approved Guideline. CLSI document C49-A. Heath [place]: Clinical Laboratory Standards [place]; 2007.3. Eleuterio MOROCHO, Jose RC, Marielena DJ. Use of cyst fluid CEA, CA19-9, and amylase for evaluation of pancreatic lesions. Clinical Biochemistry. 2009;42:0951-7712.This test was developed, and its performance characteristics determined by the [facility] Department of Pathology and Laboratory Medicine. It has not been cleared or approved by the FDA. The [facility] Department of Pathology and Laboratory Medicine is regulated under CLIA as qualified to perform high-complexity testing. This test is used for clinical purposes. It should not be regarded as investigational or for research. Performed By: #### 1 795-4 ####[facility]ORATORYCLIA [id number] [place] [address] [place] Basic metabolic 2000 panelon 01-10-2025 Anion gap [Moles/Vol] 18 mmol/L High 8-15 [facility] Comment on above: Order Comment: Speci men Type: BLOOD SPECIMENOrdering Facility: [facility] Address: [address] [place] [address] Performed By: #### 2 4321-2 ####[facility] LABORATORYCLIA [id number] [address] [place] Calcium [Mass/Vol] 8.0 mg/dL Low 8.5-10.2 [facility] Comment on above: Order Comment: Speci men Type: BLOOD SPECIMENOrdering Facility: [facility] Address: [address] [place] [address] Performed By: #### 2 4321-2 ####[facility] LABORATORYCLIA [id number] [address] STATES OF [facility] Chloride [Moles/Vol] 95 mmol/L Low 98-107 [facility] Comment on above: Order Comment: Speci men Type: BLOOD SPECIMENOrdering Facility: [facility] Address: [address] [place] [address] Performed By: #### 2 4321-2 ####[facility] LABORATORYCLIA [id number] [address] [place] CO2 [Moles/Vol] 23 mmol/L Normal 22-30 [facility] Comment on above: Order Comment: Speci men Type: BLOOD SPECIMENOrdering Facility: [facility] Address: [address] [place] [address] Performed By: #### 2 4321-2 ####[facility]ORATORYCLIA [id number] [place] [address] [place] Creatinine [Mass/Vol] 0.87 mg/dL Normal 0.58-0.96 [facility] Comment on above: Order Comment: Javadbenjamin austin Type: BLOOD SPECIMENOrdering Facility: [facility] Address: [address] [place] [address] Performed By: #### 2 4321-2 ####[facility] LABORATORYCLIA [id number] [place] [id number] [place] Creatinine and Glomerular filtration rate.predicted panel (S/P/Bld) 65 mL/min/1.73m??? Normal >=60 [facility] Comment on above: Order Comment: Adelita geovanna Type: BLOOD SPECIMENOrdering Facility: [facility] Address: [address] [place] [address] Result Comment: Ely mated Glomerular Filtration Rate [...] actual GFR. Performed By: #### 2 4321-2 ####[facility]ORATORYCLIA [id number] [place] [address] [place] Glucose [Mass/Vol] 107 mg/dL High 74-99 [facility] Comment on above: Order Comment: Javadbenjamin austin Type: BLOOD SPECIMENOrdering Facility: [facility] Address: [address] [place] [address] Result Comment: The [place] Diabetes Association (ADA) provides guidance for cutoff [...] Standards of Medical Care in Diabetes 2016, [place] [employer]. Diabetes Care. 2016.39(Suppl 1). Performed By: #### 2 4321-2 ####[facility] LABORATORYCLIA [id number] [address] [place] Potassium [Moles/Vol] Normal [facility] Comment on above: Order Comment: Speci men Type: BLOOD SPECIMENOrdering Facility: [facility] Address: [address] [place] [address] Result Comment: Unab le to assay due to interference from hemolysis. Suggest reorder as clinically indicated. Performed By: #### 2 4321-2 ####[facility] LABORATORYCLIA [id number] [address] STATES OF [facility] Sodium [Moles/Vol] 136 mmol/L Normal 136-144 [facility] Comment on above: Order Comment: Speci men Type: BLOOD SPECIMENOrdering Facility: [facility] Address: [address] [place] [address] Performed By: #### 2 4321-2 ####[facility] LABORATORYCLIA [id number] [address] STATES [facility] Urea nitrogen [Mass/Vol] 13 mg/dL Normal 7-21 [facility] Comment on above: Order Comment: Speci men Type: BLOOD SPECIMENOrdering Facility: [facility] Address: [address] [place] [address] Performed By: #### 2 4321-2 ####[facility]ORATORYCLIA [id number] [address] CBC panel Auto (Bld)on 01-10 Erythrocyte distribution width (RBC) [Ratio] 15.3 % High 11.5-15.0 [facility] Comment on above: Order Comment: Speci men Type: BLOOD SPECIMENOrdering Facility: [facility] Address: [address] [place] [address] Performed By: #### 5 8410-2 ####[facility] LABORATORYCLIA [id number] [address] Hematocrit (Bld) [Volume fraction] 31.2 % Low 36.0-46.0 [facility] Comment on above: Order Comment: Speci men Type: BLOOD SPECIMENOrdering Facility: [facility] Address: [address] [place] [address] Performed By: #### 5 8410-2 ####[facility]ORATORYCLIA [id number] [address] STATES OF [facility] Hemoglobin (Bld) [Mass/Vol] 10.2 g/dL Low 11.5-15.5 [facility] Comment on above: Order Comment: Speci men Type: BLOOD SPECIMENOrdering Facility: [facility] Address: [address] [place] [address] Performed By: #### 5 8410-2 ####[facility] LABORATORYCLIA [id number] [address] [place] MCH (RBC) [Entitic mass] 29.3 pg Normal 26.0-34.0 [facility] Comment on above: Order Comment: Speci men Type: BLOOD SPECIMENOrdering Facility: [facility] Address: [address] [place] [address] Performed By: #### 5 8410-2 ####[facility]ORATORYCLIA [id number] [address] [place] MCHC (RBC) [Mass/Vol] 32.7 g/dL Normal 30.5-36.0 [facility] Comment on above: Order Comment: Speci men Type: BLOOD SPECIMENOrdering Facility: [facility] Address: [address] [place] [address] Performed By: #### 5 8410-2 ####[facility] LABORATORYCLIA [id number] [address] [place] MCV (RBC) [Entitic vol] 89.7 fL Normal 80.0-100.0 [facility] Comment on above: Order Comment: Speci men Type: BLOOD SPECIMENOrdering Facility: [facility] Address: [address] [place] [address] Performed By: #### 5 8410-2 ####[facility]ATORYCLIA [id number] [place] [address] [place] Nucleated RBC (Bld) [#/Vol] 0.08 10*3/uL High <0.01 [facility] Comment on above: Order Comment: Speci men Type: BLOOD SPECIMENOrdering Facility: [facility] Address: [address] [place] [address] Performed By: #### 5 8410-2 ####[facility]ORATORYCLIA [id number] [address] [place] Platelet mean volume (Bld) [Entitic vol] 10.2 fL Normal 9.0-12.7 [facility] Comment on above: Order Comment: Speci men Type: BLOOD SPECIMENOrdering Facility: [facility] Address: [address] [place] [address] Performed By: #### 5 8410-2 ####[facility]ORATORYCLIA [id number] [address] [place] Platelets (Bld) [#/Vol] 394 10*3/uL Normal 150-400 [facility] Comment on above: Order Comment: Speci men Type: BLOOD SPECIMENOrdering Facility: [facility] Address: [address] [place] [address] Performed By: #### 5 8410-2 ####[facility]ORATORYCLIA [id number] [place] [address] [place] RBC (Bld) [#/Vol] 3.48 10*6/uL Low 3.90-5.20 [facility] Comment on above: Order Comment: Speci men Type: BLOOD SPECIMENOrdering Facility: [facility] Address: [address] [place] [address] Performed By: #### 5 8410-2 ####[facility]ORATORYCLIA [id number] [address] [place] WBC (Bld) [#/Vol] 13.29 10*3/uL High 3.70-11.00 [facility] Comment on above: Order Comment: Speci men Type: BLOOD SPECIMENOrdering Facility: [facility] Address: [address] [place] [address] Performed By: #### 5 8410-2 ####[facility] LABORATORYCLIA [id number] [place] [address] [place] CNPNon 01-10-2025 CNPN Normal [facility] CONSULTon 01-10-2025 CONSULT Normal [facility] ECG COMPLETEon 01-10-2025 ECG COMPLETE Normal [facility] NURSING PROGon 01-10-2025 NURSING PROG Normal [facility] THERAPY NTon 01-10-2025 THERAPY NT Normal [facility] XR CHEST 1V FRONTALon 2024 XR CHEST 1V FRONTAL Normal [facility] Amylase (Body fld) [Catalyti c activity/Vol]on 01-09-2025 Fluid Nom (Body fld) Mediastinum Normal [facility] Comment on above: Order Comment: Speci men Type: FLUID SPECIMENOrdering Facility: [facility] Address: [address] [place] [address] Performed By: #### 1 795-4 ####[facility]ORATORYCLIA [id number] [address] [place] Amylase Fld-cCncon Amylase (Body fld) [Catalytic activity/Vol] 21 U/L Normal See Comment [facility] Comment on above: Order Comment: Speci [facility] Type: FLUID SPECIMENOrdering Facility: [facility] Address: [address] [place] [address] Result Comment: PLEU RAL FLUIDS:Amylase measurement in [...] document C49-A. THAD Joe: Clinical Laboratory Standards [place]; 2007.3. Eleuterio MOROCHO, Jose MELVIN, Marielena DJ. Use of cyst fluid CEA, CA19-9, and amylase for evaluation of pancreatic lesions. Clinical Biochemistry. 2009;42:0069-6048.This test was developed, and its performance characteristics determined by the [facility] Department of Pathology and Laboratory Medicine. It has not been cleared or approved by the FDA. The [facility] Department of Pathology and Laboratory Medicine is regulated under CLIA as qualified to perform high-complexity testing. This test is used for clinical purposes. It should not be regarded as investigational or for research. Performed By: #### 1 795-4 ####[facility] LABORATORYCLIA [id number] [place] [address] [place] Basic metabolic 2000 panelon 01-09-2025 Anion gap [Moles/Vol] 9 mmol/L Normal 8-15 [facility] Comment on above: Order Comment: Speci men Type: BLOOD SPECIMENOrdering Facility: [facility] Address: [address] [place] [address] Performed By: #### 1 9123-9, 2777-, 73096-4 ####[facility] LABORATORYCLIA [id number] [place] [address] [place] Calcium [Mass/Vol] 8.3 mg/dL Low 8.5-10.2 [facility] Comment on above: Order Comment: Speci men Type: BLOOD SPECIMENOrdering Facility: [facility] Address: [address] [place] [address] Performed By: #### 1 9123-9, 2777-, 83895-8 ####[facility] LABORATORYCLIA [id number] [address] STATES OF [facility] Chloride [Moles/Vol] 106 mmol/L Normal 98-107 [facility] Comment on above: Order Comment: Speci men Type: BLOOD SPECIMENOrdering Facility: [facility] Address: [address] [place] [address] Performed By: #### 1 9123-9, 2777-1, 68696-4 ####[facility] LABORATORYCLIA [id number] [address] OF [facility] CO2 [Moles/Vol] 21 mmol/L Low 22-30 [facility] Comment on above: Order Comment: Speci men Type: BLOOD SPECIMENOrdering Facility: [facility] Address: [address] [place] [address] Performed By: #### 1 9123-9, 2777-1, 92264-1 ####[facility] LAB[facility]ATORYCLIA [id number] [address] Creatinine [Mass/Vol] 0.91 mg/dL Normal 0.58-0.96 [facility] Comment on above: Order Comment: Speci men Type: BLOOD SPECIMENOrdering Facility: [facility] Address: [address] [place] [address] Performed By: #### 1 9123-9, 2777-1, 03647-9 ####[facility] LABORATORYCLIA [id number] [address] Creatinine and Glomerular filtration rate.predicted panel (S/P/Bld) 62 mL/min/1.73m??? Normal >=60 [facility] Comment on above: Order Comment: Speci men Type: BLOOD SPECIMENOrdering Facility: [facility] Address: [address] [place] [address] Result Comment: Ely mated Glomerular Filtration Rate [...] GFR. Performed By: #### 1 9123-9, 2777-, 81886-0 ####[facility]REM[facility]CLIA [id number] [place] [address] [place] Glucose [Mass/Vol] 94 mg/dL Normal 74-99 [facility] Comment on above: Order Comment: Adelita austin Type: BLOOD SPECIMENOrdering Facility: [facility] Address: [address] [place] [address] Result Comment: The [place] Diabetes [employer] (ADA) provides guidance for cutoff [...] Standards of Medical Care in Diabetes 2016, [place] [employer]. Diabetes Care. 2016.39(Suppl 1). Performed By: #### 1 9123-9, 2777-, 82619-7 ####[facility]REM[facility]CLIA [id number] [place] [address] [place] Potassium [Moles/Vol] 4.6 mmol/L Normal 3.7-5.1 [facility] [facility] Comment on above: Order Comment: Adelita austin Type: BLOOD SPECIMENOrdering Facility: [facility] Address: [address] [place] [address] Performed By: #### 1 9123-9, 2777-, 13714-2 ####[facility] LABORATORYIA [id number] [place] [address] [place] Sodium [Moles/Vol] 136 mmol/L Normal 136-144 [facility] Comment on above: Order Comment: Adelita austin Type: BLOOD SPECIMENOrdering Facility: [facility] Address: [address] [place] [address] Performed By: #### 1 9123-9, 2777-1, 32389-7 ####[facility] LABORATORYCLIA [id number] [address] STATES OF [facility] Urea nitrogen [Mass/Vol] 15 mg/dL Normal 7-21 [facility] Comment on above: Order Comment: Speci men Type: BLOOD SPECIMENOrdering Facility: [facility] Address: [address] [place] [address] Performed By: #### 1 9123-9, 2777-1, 12902-7 ####[facility] LABORATORYCLIA [id number] [address] OF [facility] CASE MGT INIT ASSESon 2024 CASE MGT INIT ASSES Normal [facility] CBC panel Auto (Bld)on 01-09 Erythrocyte distribution width (RBC) [Ratio] 15.6 % High 11.5-15.0 [facility] Comment on above: Order Comment: Speci men Type: BLOOD SPECIMENOrdering Facility: [facility] Address: [address] [place] [address] Performed By: #### 5 8410-2 ####[facility] LABORATORYCLIA [id number] [address] STATES [facility] Hematocrit (Bld) [Volume fraction] 29.0 % Low 36.0-46.0 [facility] Comment on above: Order Comment: Speci men Type: BLOOD SPECIMENOrdering Facility: [facility] Address: [address] [place] [address] Performed By: #### 5 8410-2 ####[facility] LABORATORYCLIA [id number] [address] [place] Hemoglobin (Bld) [Mass/Vol] 9.3 g/dL Low 11.5-15.5 [facility] Comment on above: Order Comment: Speci men Type: BLOOD SPECIMENOrdering Facility: [facility] Address: [address] [place] [address] Performed By: #### 5 8410-2 ####[facility] LABORATORYCLIA [id number] [address] MCH (RBC) [Entitic mass] 29.4 pg Normal 26.0-34.0 [facility] Comment on above: Order Comment: Speci men Type: BLOOD SPECIMENOrdering Facility: [facility] Address: [address] [place] [address] Performed By: #### 5 8410-2 ####[facility] LABORATORYCLIA [id number] [address] MCHC (RBC) [Mass/Vol] 32.1 g/dL Normal 30.5-36.0 [facility] Comment on above: Order Comment: Speci men Type: BLOOD SPECIMENOrdering Facility: [facility] Address: [address] [place] [address] Performed By: #### 5 8410-2 ####[facility] LABORATORYCLIA [id number] [address] MCV (RBC) [Entitic vol] 91.8 fL Normal 80.0-100.0 [facility] Comment on above: Order Comment: Speci men Type: BLOOD SPECIMENOrdering Facility: [facility] Address: [address] [place] [address] Performed By: #### 5 8410-2 ####[facility] LABORATORYCLIA [id number] [address] Nucleated RBC (Bld) [#/Vol] 0.05 10*3/uL High <0.01 [facility] Comment on above: Order Comment: Speci men Type: BLOOD SPECIMENOrdering Facility: [facility] Address: [address] [place] [address] Performed By: #### 5 8410-2 ####[facility] LABORATORYCLIA [id number] [address] Platelet mean volume (Bld) [Entitic vol] 10.2 fL Normal 9.0-12.7 [facility] Comment on above: Order Comment: Speci men Type: BLOOD SPECIMENOrdering Facility: [facility] Address: [address] [place] [address] Performed By: #### 5 8410-2 ####[facility] LABORATORYCLIA [id number] [address] Platelets (Bld) [#/Vol] 303 10*3/uL Normal 150-400 [facility] Comment on above: Order Comment: Speci men Type: BLOOD SPECIMENOrdering Facility: [facility] Address: [address] [place] [address] Performed By: #### 5 8410-2 ####[facility] LABORATORYCLIA [id number] [address] [place] RBC (Bld) [#/Vol] 3.16 10*6/uL Low 3.90-5.20 [facility] Comment on above: Order Comment: Speci men Type: BLOOD SPECIMENOrdering Facility: [facility] Address: [address] [place] [address] Performed By: #### 5 8410-2 ####[facility] LABORATORYCLIA [id number] [address] WBC (Bld) [#/Vol] 24.11 10*3/uL High 3.70-11.00 [facility] Comment on above: Order Comment: Speci men Type: BLOOD SPECIMENOrdering Facility: [facility] Address: [address] [place] [address] Performed By: #### 5 8410-2 ####[facility]ORATORYCLIA [id number] [address] Calcium.ionized [Moles/Vol]o n 01-09-2025 Calcium.ionized (BldV) [Mass/Vol] 1.19 mmol/L Normal 1.08-1.30 [facility] Comment on above: Order Comment: Speci men Type: BLOOD SPECIMENOrdering Facility: [facility] Address: [address] [place] [address] Performed By: #### 1 995-0 ####[facility] LABORATORYCLIA [id number] [place] [address] [place] Calcium.ionized adjusted to pH 7.4 (Bld) [Moles/Vol] 1.17 mmol/L Normal 1.08-1.30 [facility] Comment on above: Order Comment: Speci men Type: BLOOD SPECIMENOrdering Facility: [facility] Address: [address] [place] [address] Performed By: #### 1 995-0 ####[facility]ORATORYCLIA [id number] [place] [address] [place] Magnesium SerPl-ncon 01-09 Magnesium [Mass/Vol] 2.2 mg/dL Normal 1.7-2.3 [facility] Comment on above: Order Comment: Speci men Type: BLOOD SPECIMENOrdering Facility: [facility] Address: [address] [place] [address] Performed By: #### 1 9123-9, 2777-1, 37161-8 ####[facility] LABORATORYCLIA [id number] [place] [address] [place] Phosphate SerPl-mCncon 01-09 Phosphate [Mass/Vol] 3.7 mg/dL Normal 2.7-4.8 [facility] Comment on above: Order Comment: Speci men Type: BLOOD SPECIMENOrdering Facility: [facility] Address: [address] [place] [address] Performed By: #### 1 9123-9, 2777-1, 66324-7 ####[facility] LABORATORYCLIA [id number] [place] [address] [place] US CAROTID BILon 01-09-2025 US CAROTID DENTON Normal [facility] XR CHEST 1V FRONTALon 2024 XR CHEST 1V FRONTAL Normal [facility] XR CHEST 1V FRONTAL Normal [facility] Basic metabolic 2000 panelon 01-08-2025 Anion gap [Moles/Vol] 9 mmol/L Normal 8-15 [facility] Comment on above: Order Comment: Speci men Type: BLOOD SPECIMENOrdering Facility: [facility] Address: [address] [place] [id number] Performed By: #### 2 4321-2, , 2776-10 ####[facility] LABORATORYCLIA [id number] [place] [address] [place] Calcium [Mass/Vol] 8.2 mg/dL Low 8.5-10.2 [facility] Comment on above: Order Comment: Speci men Type: BLOOD SPECIMENOrdering Facility: [facility] Address: [address] [place] [address] Performed By: #### 2 4321-2, , 2776-10 ####[facility] LABORATORYCLIA [id number] [place] [address] [place] Chloride [Moles/Vol] 109 mmol/L High 98-107 [facility] Comment on above: Order Comment: Speci men Type: BLOOD SPECIMENOrdering Facility: [facility] Address: [address] [place] [address] Performed By: #### 2 4321-2, , 2776-10 ####[facility]ORATORYCLIA [id number] [place] [address] [place] CO2 [Moles/Vol] 20 mmol/L Low 22-30 [facility] Comment on above: Order Comment: Speci men Type: BLOOD SPECIMENOrdering Facility: [facility] Address: [address] [place] [address] Performed By: #### 2 4321-2, , 2776-10 ####[facility] LABORATORYCLIA [id number] [place] [address] [place] Creatinine [Mass/Vol] 1.01 mg/dL High 0.58-0.96 [facility] Comment on above: Order Comment: Speci men Type: BLOOD SPECIMENOrdering Facility: [facility] Address: [address] [place] [address] Performed By: #### 2 4321-2, 02733-32776-10 ####[facility]ORESVILLEIA [id number] [address] Creatinine and Glomerular filtration rate.predicted panel (S/P/Bld) 55 mL/min/1.73m??? Low >=60 [facility] Comment on above: Order Comment: Specbenjamin austin Type: BLOOD SPECIMENOrdering Facility: [facility] Address: [address] [place] [address] Result Comment: Ely mated Glomerular Filtration Rate [...] Performed By: #### 2 4321-2, , 2776-10 ####[facility]ESVILLEIA [id number] [address] Glucose [Mass/Vol] 123 mg/dL High 74-99 [facility] Comment on above: Order Comment: Adelita austin Type: BLOOD SPECIMENOrdering Facility: [facility] Address: [address] [place] [address] Result Comment: The [place] [employer] (ADA) provides guidance for cutoff [...] Standards of Medical Care in Diabetes 2016, [place] [employer]. Diabetes Care. 2016.39(Suppl 1). Performed By: #### 2 4321-2, , 2776-10 ####[facility]ESVILLEIA [id number] [address] [place] Potassium [Moles/Vol] 4.4 mmol/L Normal 3.7-5.1 [facility] Comment on above: Order Comment: Speci men Type: BLOOD SPECIMENOrdering Facility: [facility] Address: [address] [place] [address] Performed By: #### 2 4321-2, 65026-9, 2776- ####[facility] LABORATORYCLIA [id number] [place] [id number] [place] Sodium [Moles/Vol] 138 mmol/L Normal 136-144 [facility] Comment on above: Order Comment: Speci men Type: BLOOD SPECIMENOrdering Facility: [facility] Address: [address] [place] [address] Performed By: #### 2 4321-2, , 2776-10 ####[facility] LABORATORYCLIA [id number] [address] [place] Urea nitrogen [Mass/Vol] 16 mg/dL Normal 7-21 [facility] Comment on above: Order Comment: Speci men Type: BLOOD SPECIMENOrdering Facility: [facility] Address: [address] [place] [address] Performed By: #### 2 4321-2, , 2776-10 ####[facility]ORATORYCLIA [id number] [address] [place] CBC panel Auto (Bld)on 01-08 Erythrocyte distribution width (RBC) [Ratio] 16.1 % High 11.5-15.0 [facility] Comment on above: Order Comment: Speci men Type: BLOOD SPECIMENOrdering Facility: [facility] Address: [address] [place] [address] Performed By: #### 5 8410-2 ####[facility] LABORATORYCLIA [id number] [address] [place] Hematocrit (Bld) [Volume fraction] 30.1 % Low 36.0-46.0 [facility] Comment on above: Order Comment: Speci men Type: BLOOD SPECIMENOrdering Facility: [facility] Address: [address] [place] [address] Performed By: #### 5 8410-2 ####[facility] LABORATORYCLIA [id number] [address] Hemoglobin (Bld) [Mass/Vol] 9.6 g/dL Low 11.5-15.5 [facility] Comment on above: Order Comment: Speci men Type: BLOOD SPECIMENOrdering Facility: [facility] Address: [address] [place] [address] Performed By: #### 5 8410-2 ####[facility] LABORATORYCLIA [id number] [address] MCH (RBC) [Entitic mass] 29.3 pg Normal 26.0-34.0 [facility] Comment on above: Order Comment: Speci men Type: BLOOD SPECIMENOrdering Facility: [facility] Address: [address] [place] [address] Performed By: #### 5 8410-2 ####[facility] LABORATORYCLIA [id number] [address] MCHC (RBC) [Mass/Vol] 31.9 g/dL Normal 30.5-36.0 [facility] Comment on above: Order Comment: Speci men Type: BLOOD SPECIMENOrdering Facility: [facility] Address: [address] [place] [address] Performed By: #### 5 8410-2 ####[facility] LABORATORYCLIA [id number] [address] STATES [facility] MCV (RBC) [Entitic vol] 91.8 fL Normal 80.0-100.0 [facility] Comment on above: Order Comment: Speci men Type: BLOOD SPECIMENOrdering Facility: [facility] Address: [address] [place] [address] Performed By: #### 5 8410-2 ####[facility] LABORATORYCLIA [id number] [place] [address] [place] Nucleated RBC (Bld) [#/Vol] 0.04 10*3/uL High <0.01 [facility] Comment on above: Order Comment: Speci men Type: BLOOD SPECIMENOrdering Facility: [facility] Address: [address] [place] [address] Performed By: #### 5 8410-2 ####[facility] LABORATORYCLIA [id number] [place] [address] [place] Platelet mean volume (Bld) [Entitic vol] 10.0 fL Normal 9.0-12.7 [facility] Comment on above: Order Comment: Speci men Type: BLOOD SPECIMENOrdering Facility: [facility] Address: [address] [place] [address] Performed By: #### 5 8410-2 ####[facility] LABORATORYCLIA [id number] [address] [place] Platelets (Bld) [#/Vol] 297 10*3/uL Normal 150-400 [facility] Comment on above: Order Comment: Speci men Type: BLOOD SPECIMENOrdering Facility: [facility] Address: [address] [place] [address] Performed By: #### 5 8410-2 ####[facility] LABORATORYCLIA [id number] [address] [place] RBC (Bld) [#/Vol] 3.28 10*6/uL Low 3.90-5.20 [facility] Comment on above: Order Comment: Speci men Type: BLOOD SPECIMENOrdering Facility: [facility] Address: [address] [place] [address] Performed By: #### 5 8410-2 ####[facility] LABORATORYCLIA [id number] [address] [place] WBC (Bld) [#/Vol] 29.75 10*3/uL High 3.70-11.00 [facility] Comment on above: Order Comment: Speci men Type: BLOOD SPECIMENOrdering Facility: [facility] Address: [address] [place] [address] Performed By: #### 5 8410-2 ####[facility] LABORATORYCLIA [id number] [address] [place] Erythrocyte distribution width (RBC) [Ratio] 16.5 % High 11.5-15.0 [facility] Comment on above: Order Comment: Speci men Type: BLOOD SPECIMENOrdering Facility: [facility] Address: [address] [place] [address] Performed By: #### 5 8410-2 ####[facility] LABORATORYCLIA [id number] [address] [place] Hematocrit (Bld) [Volume fraction] 29.7 % Low 36.0-46.0 [facility] Comment on above: Order Comment: Speci men Type: BLOOD SPECIMENOrdering Facility: [facility] Address: [address] [place] [address] Performed By: #### 5 8410-2 ####[facility]ORATORYCLIA [id number] [address] [place] Hemoglobin (Bld) [Mass/Vol] 9.9 g/dL Low 11.5-15.5 [facility] Comment on above: Order Comment: Speci men Type: BLOOD SPECIMENOrdering Facility: [facility] Address: [address] [place] [address] Performed By: #### 5 8410-2 ####[facility]ORATORYCLIA [id number] [address] [place] MCH (RBC) [Entitic mass] 29.6 pg Normal 26.0-34.0 [facility] Comment on above: Order Comment: Speci men Type: BLOOD SPECIMENOrdering Facility: [facility] Address: [address] [place] [address] Performed By: #### 5 8410-2 ####[facility]ORATORYCLIA [id number] [address] [place] MCHC (RBC) [Mass/Vol] 33.3 g/dL Normal 30.5-36.0 [facility] Comment on above: Order Comment: Speci men Type: BLOOD SPECIMENOrdering Facility: [facility] Address: [address] [place] [address] Performed By: #### 5 8410-2 ####[facility] LABORATORYCLIA [id number] [address] STATES OF [facility] MCV (RBC) [Entitic vol] 88.7 fL Normal 80.0-100.0 [facility] Comment on above: Order Comment: Speci men Type: BLOOD SPECIMENOrdering Facility: [facility] Address: [address] [place] [address] Performed By: #### 5 8410-2 ####[facility]ORATORYCLIA [id number] [address] [place] Nucleated RBC (Bld) [#/Vol] 0.04 10*3/uL High <0.01 [facility] Comment on above: Order Comment: Speci men Type: BLOOD SPECIMENOrdering Facility: [facility] Address: [address] [place] [address] Performed By: #### 5 8410-2 ####[facility]ORATORYCLIA [id number] [address] [place] Platelet mean volume (Bld) [Entitic vol] 10.4 fL Normal 9.0-12.7 [facility] Comment on above: Order Comment: Speci men Type: BLOOD SPECIMENOrdering Facility: [facility] Address: [address] [place] [address] Performed By: #### 5 8410-2 ####[facility]ORATORYCLIA [id number] [address] [place] Platelets (Bld) [#/Vol] 299 10*3/uL Normal 150-400 [facility] Comment on above: Order Comment: Speci men Type: BLOOD SPECIMENOrdering Facility: [facility] Address: [address] [place] [address] Performed By: #### 5 8410-2 ####[facility]ORATORYCLIA [id number] [address] [place] RBC (Bld) [#/Vol] 3.35 10*6/uL Low 3.90-5.20 [facility] Comment on above: Order Comment: Speci men Type: BLOOD SPECIMENOrdering Facility: [facility] Address: [address] [place] [address] Performed By: #### 5 8410-2 ####[facility] LABORATORYCLIA [id number] [address] STATES OF [facility] WBC (Bld) [#/Vol] 35.24 10*3/uL High 3.70-11.00 [facility] Comment on above: Order Comment: Speci men Type: BLOOD SPECIMENOrdering Facility: [facility] Address: [address] [place] [address] Performed By: #### 5 8410-2 ####[facility]LEIA [id number] [address] Calcium.ionized [Moles/Vol]o n 01-08-2025 Calcium.ionized (BldV) [Mass/Vol] 1.21 mmol/L Normal 1.08-1.30 [facility] Comment on above: Order Comment: Speci men Type: BLOOD SPECIMENOrdering Facility: [facility] Address: [address] [place] [address] Performed By: #### 1 995-0 ####[facility] LABORATORYCLIA [id number] [address] STATES [facility] Calcium.ionized adjusted to pH 7.4 (Bld) [Moles/Vol] 1.21 mmol/L Normal 1.08-1.30 [facility] Comment on above: Order Comment: Speci men Type: BLOOD SPECIMENOrdering Facility: [facility] Address: [address] [place] [address] Performed By: #### 1 995-0 ####[facility] LABORATORYCLIA [id number] [address] [place] Magnesium SerPl-mCncon 01-08 Magnesium [Mass/Vol] 2.6 mg/dL High 1.7-2.3 [facility] Comment on above: Order Comment: Speci men Type: BLOOD SPECIMENOrdering Facility: [facility] Address: [address] [place] [address] Performed By: #### 2 4321-2, 14309-0, 2777-1 ####[facility]ORATORYCLIA [id number] [address] [place] Phosphate SerPl-mCncon 01-08 Phosphate [Mass/Vol] 3.8 mg/dL Normal 2.7-4.8 [facility] Comment on above: Order Comment: Speci men Type: BLOOD SPECIMENOrdering Facility: [facility] Address: [address] [place] [address] Performed By: #### 2 4321-2, 12306-7, 277- ####[facility] LABORATORYCLIA [id number] [address] [place] ALLIED HEALTHon 01-07-2025 ALLIED HEALTH Normal [facility] ARTERIAL BLOOD GASESon 01-07 Base deficit (BldA) [Moles/Vol] -4 mmol/L Low -2-0 [facility] Comment on above: Order Comment: Speci men Type: ARTERIAL BLOOD SPECIMENOrdering Facility: [facility] Address: [address] [place] [address] Performed By: #### A LLBG ####[facility] LABORATORYCLIA [id number] [address] [place] Body temperature 97.7 [degF] Normal [facility] Comment on above: Order Comment: Speci men Type: ARTERIAL BLOOD SPECIMENOrdering Facility: [facility] Address: [address] [place] [address] Performed By: #### A LLBG ####[facility] LABORATORYCLIA [id number] [address] [place] Calcium.ionized (BldV) [Mass/Vol] 1.31 mmol/L High 1.08-1.30 [facility] Comment on above: Order Comment: Speci men Type: ARTERIAL BLOOD SPECIMENOrdering Facility: [facility] Address: [address] [place] [address] Performed By: #### A LLBG ####[facility] LABORATORYCLIA [id number] [place] [address] [place] Calcium.ionized adjusted to pH 7.4 (BldA) [Moles/Vol] 1.31 mmol/L High 1.08-1.30 [facility] Comment on above: Order Comment: Speci men Type: ARTERIAL BLOOD SPECIMENOrdering Facility: [facility] Address: [address] [place] [address] Performed By: #### A LLBG ####[facility] LABORATORYCLIA [id number] [address] [place] Carboxyhemoglobin (BldA) [Mass fraction] 1.1 % Normal 0.0-2.0 [facility] Comment on above: Order Comment: Speci men Type: ARTERIAL BLOOD SPECIMENOrdering Facility: [facility] Address: [address] [place] [address] Result Comment: Carb oxyhemoglobin Reference Range for Smokers: 2.0-8.0% Performed By: #### A LLBG ####[facility] LABORATORYCLIA [id number] [place] [address] [place] Chloride [Moles/Vol] 109 mmol/L High 97-105 [facility] Comment on above: Order Comment: Speci men Type: ARTERIAL BLOOD SPECIMENOrdering Facility: [facility] Address: [address] [place] [address] Performed By: #### A LLBG ####[facility] LABORATORYCLIA [id number] [place] [address] [place] CO2 (Bld) [Partial pressure] 32 mm Hg Low 36-46 [facility] Comment on above: Order Comment: Speci men Type: ARTERIAL BLOOD SPECIMENOrdering Facility: [facility] Address: [address] [place] [address] Performed By: #### A LLBG ####[facility] LABORATORYCLIA [id number] [address] [place] CO2 adjusted to patient's actual temperature (Bld) [Partial pressure] 32 mmHg Low 36-46 [facility] Comment on above: Order Comment: Speci men Type: ARTERIAL BLOOD SPECIMENOrdering Facility: [facility] Address: [address] [place] [address] Performed By: #### A LLBG ####[facility] LABORATORYCLIA [id number] [address] [place] Glucose [Mass/Vol] 136 mg/dL High 60-105 [facility] Comment on above: Order Comment: Speci men Type: ARTERIAL BLOOD SPECIMENOrdering Facility: [facility] Address: [address] [place] [address] Performed By: #### A LLBG ####[place] [facility]ATORYCLIA [id number] [address] [place] HCO3 (Bld) [Moles/Vol] 20 mmol/L Low 22-[facility] Comment on above: Order Comment: Speci men Type: ARTERIAL BLOOD SPECIMENOrdering Facility: [facility] Address: [address] [place] [address] Performed By: #### A LLBG ####[place] [facility] LABORATORYCLIA [id number] [address] [place] Hematocrit (Bld) [Volume fraction] 37.9 % Normal 36.0-46.0 [facility] Comment on above: Order Comment: Speci men Type: ARTERIAL BLOOD SPECIMENOrdering Facility: [facility] Address: [address] [place] [address] Performed By: #### A LLBG ####[place] LABORATORYCLIA [id number] [address] [place] Hemoglobin (Bld) [Mass/Vol] 12.3 g/dL Normal 11.5-15.5 [facility] Comment on above: Order Comment: Speci men Type: ARTERIAL BLOOD SPECIMENOrdering Facility: [facility] Address: [address] [place] [address] Performed By: #### A LLBG ####[place] [facility] LABORATORYCLIA [id number] [address] [place] Lactate [Moles/Vol] 2.4 mmol/L High 0.5-2.2 [facility] Comment on above: Order Comment: Speci men Type: ARTERIAL BLOOD SPECIMENOrdering Facility: [facility] Address: [address] [place] [address] Performed By: #### A LLBG ####[place] [facility] LABORATORYCLIA [id number] [address] [place] LITERS 3 Liters/min Normal [facility] Comment on above: Order Comment: Speci men Type: ARTERIAL BLOOD SPECIMENOrdering Facility: [facility] Address: [address] [place] [address] Performed By: #### A LLBG ####[place] [facility] LABORATORYCLIA [id number] [address] [place] Methemoglobin (Bld) [Mass fraction] 0.7 % Normal 0.0-1.5 [facility] Comment on above: Order Comment: Speci men Type: ARTERIAL BLOOD SPECIMENOrdering Facility: [facility] Address: [address] [place] [address] Performed By: #### A LLBG ####[place] [facility] LABORATORYCLIA [id number] [address] O2 THERAPY NC = Nasal Cannula Normal [facility] Comment on above: Order Comment: Speci men Type: ARTERIAL BLOOD SPECIMENOrdering Facility: [facility] Address: [address] [place] [address] Performed By: #### A LLBG ####[place]ORATORYCLIA [id number] [address] [place] Oxygen (Bld) [Partial pressure] 88 mm Hg Normal 85-95 [facility] Comment on above: Order Comment: Speci men Type: ARTERIAL BLOOD SPECIMENOrdering Facility: [facility] Address: [address] [place] [address] Performed By: #### A LLBG ####[place] [facility]ORATORYCLIA [id number] [address] STATES [facility] Oxygen adjusted to patient's actual temperature (Bld) [Partial pressure] 86 mmHg Normal 85-95 [facility] Comment on above: Order Comment: Speci men Type: ARTERIAL BLOOD SPECIMENOrdering Facility: [facility] Address: [address] [place] [address] Performed By: #### A LLBG ####[place]ORATORYCLIA [id number] [address] [place] Oxyhemoglobin (BldA) [Mass fraction] 95 % Normal 95-98 [facility] Comment on above: Order Comment: Speci men Type: ARTERIAL BLOOD SPECIMENOrdering Facility: [facility] Address: [address] [place] [address] Performed By: #### A LLBG ####[place] [facility]ORATORYCLIA [id number] [address] [place] pH (Bld) 7.40 [pH] Normal 7.35-7.45 [facility] Comment on above: Order Comment: Speci men Type: ARTERIAL BLOOD SPECIMENOrdering Facility: [facility] Address: [address] [place] [address] Performed By: #### A LLBG ####[place]ORATORYCLIA [id number] [address] STATES [facility] pH adjusted to patient's actual temperature (Bld) 7.40 Normal 7.35-7.45 [facility] Comment on above: Order Comment: Speci men Type: ARTERIAL BLOOD SPECIMENOrdering Facility: [facility] Address: [address] [place] [address] Performed By: #### A LLBG ####[facility]ORATORYCLIA [id number] [address] [place] Potassium [Moles/Vol] 4.8 mmol/L Normal 3.5-5.0 [facility] Comment on above: Order Comment: Speci men Type: ARTERIAL BLOOD SPECIMENOrdering Facility: [facility] Address: [address] [place] [address] Performed By: #### A LLBG ####[place]ORATORYCLIA [id number] [address] STATES OF [facility] Sodium [Moles/Vol] 138 mmol/L Normal 136-144 [facility] Comment on above: Order Comment: Speci men Type: ARTERIAL BLOOD SPECIMENOrdering Facility: [facility] Address: [address] [place] [address] Performed By: #### A LLBG ####[place]ORATORYCLIA [id number] [address] [place] Base deficit (BldA) [Moles/Vol] -4 mmol/L Low -2-0 [facility] Comment on above: Order Comment: Speci men Type: ARTERIAL BLOOD SPECIMENOrdering Facility: [facility] Address: [address] [place] [address] Performed By: #### A LLBG ####[place]ORATORYCLIA [id number] [address] STATES [facility] Body temperature 97.7 [degF] Normal [facility] Comment on above: Order Comment: Speci men Type: ARTERIAL BLOOD SPECIMENOrdering Facility: [facility] Address: [address] [place] [address] Performed By: #### A LLBG ####[place]ORATORYCLIA [id number] [address] [place] Calcium.ionized (BldV) [Mass/Vol] 1.29 mmol/L Normal 1.08-1.30 [facility] Comment on above: Order Comment: Speci men Type: ARTERIAL BLOOD SPECIMENOrdering Facility: [facility] Address: [address] [place] [address] Performed By: #### A LLBG ####[place]ORATORYCLIA [id number] [address] [place] Calcium.ionized adjusted to pH 7.4 (BldA) [Moles/Vol] 1.29 mmol/L Normal 1.08-1.30 [facility] Comment on above: Order Comment: Speci men Type: ARTERIAL BLOOD SPECIMENOrdering Facility: [facility] Address: [address] [place] [address] Performed By: #### A LLBG ####[facility]ORATORYCLIA [id number] [address] [place] Carboxyhemoglobin (BldA) [Mass fraction] 1.6 % Normal 0.0-2.0 [facility] Comment on above: Order Comment: Speci men Type: ARTERIAL BLOOD SPECIMENOrdering Facility: [facility] Address: [address] [place] [address] Result Comment: Carb oxyhemoglobin Reference Range for Smokers: 2.0-8.0% Performed By: #### A LLBG ####[facility]ATORYCLIA [id number] [address] [place] Chloride [Moles/Vol] 109 mmol/L High 97-105 [facility] Comment on above: Order Comment: Speci men Type: ARTERIAL BLOOD SPECIMENOrdering Facility: [facility] Address: [address] [place] [address] Performed By: #### A LLBG ####[place]ORATORYCLIA [id number] [address] [place] CO2 (Bld) [Partial pressure] 33 mm Hg Low 36-46 [facility] Comment on above: Order Comment: Speci men Type: ARTERIAL BLOOD SPECIMENOrdering Facility: [facility] Address: [address] [place] [address] Performed By: #### A LLBG ####[facility]ORATORYCLIA [id number] [address] [place] CO2 adjusted to patient's actual temperature (Bld) [Partial pressure] 32 mmHg Low 36-46 [facility] Comment on above: Order Comment: Speci men Type: ARTERIAL BLOOD SPECIMENOrdering Facility: [facility] Address: [address] [place] [address] Performed By: #### A LLBG ####[facility]ORATORYCLIA [id number] [place] [address] [place] FIO2 30 % Normal [facility] Comment on above: Order Comment: Speci men Type: ARTERIAL BLOOD SPECIMENOrdering Facility: [facility] Address: [address] [place] [address] Performed By: #### A LLBG ####[facility]ORATORYCLIA [id number] [address] [place] Glucose [Mass/Vol] 253 mg/dL High 60-105 [facility] Comment on above: Order Comment: Speci men Type: ARTERIAL BLOOD SPECIMENOrdering Facility: [facility] Address: [address] [place] [address] Performed By: #### A LLBG ####[facility]ORATORYCLIA [id number] [address] [place] HCO3 (Bld) [Moles/Vol] 20 mmol/L Low 22-26 [facility] Comment on above: Order Comment: Speci men Type: ARTERIAL BLOOD SPECIMENOrdering Facility: [facility] Address: [address] [place] [address] Performed By: #### A LLBG ####[facility]ORATORYCLIA [id number] [address] [place] Hematocrit (Bld) [Volume fraction] 31.2 % Low 36.0-46.0 [facility] Comment on above: Order Comment: Speci men Type: ARTERIAL BLOOD SPECIMENOrdering Facility: [facility] Address: [address] [place] [address] Performed By: #### A LLBG ####[facility]ORATORYCLIA [id number] [place] [address] [place] Hemoglobin (Bld) [Mass/Vol] 10.1 g/dL Low 11.5-15.5 [facility] Comment on above: Order Comment: Speci men Type: ARTERIAL BLOOD SPECIMENOrdering Facility: [facility] Address: [address] [place] [address] Performed By: #### A LLBG ####[facility]ORATORYCLIA [id number] [address] Lactate [Moles/Vol] 2.9 mmol/L High 0.5-2.2 [facility] Comment on above: Order Comment: Speci men Type: ARTERIAL BLOOD SPECIMENOrdering Facility: [facility] Address: [address] [place] [address] Performed By: #### A LLBG ####[facility]ATORYCLIA [id number] [address] Methemoglobin (Bld) [Mass fraction] 0.9 % Normal 0.0-1.5 [facility] Comment on above: Order Comment: Speci men Type: ARTERIAL BLOOD SPECIMENOrdering Facility: [facility] Address: [address] [place] [address] Performed By: #### A LLBG ####[facility]ORATORYCLIA [id number] [address] O2 THERAPY VENT=Ventilator Normal [facility] Comment on above: Order Comment: Speci men Type: ARTERIAL BLOOD SPECIMENOrdering Facility: [facility] Address: [address] [place] [address] Performed By: #### A LLBG ####[facility]ORATORYCLIA [id number] [address] Oxygen (Bld) [Partial pressure] 101 mm Hg High 85-95 [facility] Comment on above: Order Comment: Speci men Type: ARTERIAL BLOOD SPECIMENOrdering Facility: [facility] Address: [address] [place] [address] Performed By: #### A LLBG ####[facility]ATORYCLIA [id number] [address] Oxygen adjusted to patient's actual temperature (Bld) [Partial pressure] 98 mmHg High 85-95 [facility] Comment on above: Order Comment: Speci men Type: ARTERIAL BLOOD SPECIMENOrdering Facility: [facility] Address: [address] [place] [address] Performed By: #### A LLBG ####[facility]ATORYCLIA [id number] [address] [place] Oxyhemoglobin (BldA) [Mass fraction] 96 % Normal 95-98 [facility] Comment on above: Order Comment: Speci men Type: ARTERIAL BLOOD SPECIMENOrdering Facility: [facility] Address: [address] [place] [address] Performed By: #### A LLBG ####[facility]ORYCLIA [id number] [address] PEEP/CPAP 5 cmH2O Normal [facility] Comment on above: Order Comment: Speci men Type: ARTERIAL BLOOD SPECIMENOrdering Facility: [facility] Address: [address] [place] [address] Performed By: #### A LLBG ####[facility] LABORATORYCLIA [id number] [address] [place] pH (Bld) 7.40 [pH] Normal 7.35-7.45 [facility] Comment on above: Order Comment: Speci men Type: ARTERIAL BLOOD SPECIMENOrdering Facility: [facility] Address: [address] [place] [address] Performed By: #### A LLBG ####[facility]ATORYCLIA [id number] [address] pH adjusted to patient's actual temperature (Bld) 7.40 Normal 7.35-7.45 [facility] Comment on above: Order Comment: Speci men Type: ARTERIAL BLOOD SPECIMENOrdering Facility: [facility] Address: [address] [place] [address] Performed By: #### A LLBG ####[facility]ATORYCLIA [id number] [address] [place] PO2 / FIO2 RATIO 337 mmHg Normal >300 [facility] Comment on above: Order Comment: Speci men Type: ARTERIAL BLOOD SPECIMENOrdering Facility: [facility] Address: [address] [place] [address] Performed By: #### A LLBG ####[facility]ATORYCLIA [id number] [place] [address] [place] Potassium [Moles/Vol] 4.8 mmol/L Normal 3.5-5.0 [facility] Comment on above: Order Comment: Speci men Type: ARTERIAL BLOOD SPECIMENOrdering Facility: [facility] Address: [address] [place] [address] Performed By: #### A LLBG ####[facility]ORATORYCLIA [id number] [place] [address] [place] Sodium [Moles/Vol] 135 mmol/L Low 136-144 [facility] Comment on above: Order Comment: Speci men Type: ARTERIAL BLOOD SPECIMENOrdering Facility: [facility] Address: [address] [place] [address] Performed By: #### A LLBG ####[facility]ORATORYCLIA [id number] [address] [place] Base deficit (BldA) [Moles/Vol] -4 mmol/L Low -2-0 [facility] Comment on above: Order Comment: Speci men Type: ARTERIAL BLOOD SPECIMENOrdering Facility: [facility] Address: [address] [place] [address] Performed By: #### A LLBG ####[facility]ORATORYCLIA [id number] [address] [place] Body temperature 97.34 [degF] Normal [facility] Comment on above: Order Comment: Speci men Type: ARTERIAL BLOOD SPECIMENOrdering Facility: [facility] Address: [address] [place] [address] Performed By: #### A LLBG ####[facility]ORATORYCLIA [id number] [address] [place] Calcium.ionized (BldV) [Mass/Vol] 1.25 mmol/L Normal 1.08-1.30 [facility] Comment on above: Order Comment: Speci men Type: ARTERIAL BLOOD SPECIMENOrdering Facility: [facility] Address: [address] [place] [address] Performed By: #### A LLBG ####[facility]ORATORYCLIA [id number] [address] STATES OF [facility] Calcium.ionized adjusted to pH 7.4 (BldA) [Moles/Vol] 1.24 mmol/L Normal 1.08-1.30 [facility] Comment on above: Order Comment: Speci men Type: ARTERIAL BLOOD SPECIMENOrdering Facility: [facility] Address: [address] [place] [address] Performed By: #### A LLBG ####[facility]ORATORYCLIA [id number] [address] OF [facility] Carboxyhemoglobin (BldA) [Mass fraction] 1.3 % Normal 0.0-2.0 [facility] Comment on above: Order Comment: Speci men Type: ARTERIAL BLOOD SPECIMENOrdering Facility: [facility] Address: [address] [place] [address] Result Comment: Carb oxyhemoglobin Reference Range for Smokers: 2.0-8.0% Performed By: #### A LLBG ####[facility]ATORYCLIA [id number] [address] [place] Chloride [Moles/Vol] 114 mmol/L High 97-105 [facility] Comment on above: Order Comment: Speci men Type: ARTERIAL BLOOD SPECIMENOrdering Facility: [facility] Address: [address] [place] [address] Performed By: #### A LLBG ####[facility]ATORYCLIA [id number] [address] [place] CO2 (Bld) [Partial pressure] 34 mm Hg Low 36-46 [facility] Comment on above: Order Comment: Speci men Type: ARTERIAL BLOOD SPECIMENOrdering Facility: [facility] Address: [address] [place] [address] Performed By: #### A LLBG ####[facility]ORATORYCLIA [id number] [address] [place] CO2 adjusted to patient's actual temperature (Bld) [Partial pressure] 33 mmHg Low 36-46 [facility] Comment on above: Order Comment: Speci men Type: ARTERIAL BLOOD SPECIMENOrdering Facility: [facility] Address: [facility] [place] [address] Performed By: #### A LLBG ####[facility]ORATORYCLIA [id number] [place] [address] [place] FIO2 30 % Normal [facility] Comment on above: Order Comment: Speci men Type: ARTERIAL BLOOD SPECIMENOrdering Facility: [facility] Address: [address] [place] [address] Performed By: #### A LLBG ####[facility]ORATORYCLIA [id number] [address] [place] Glucose [Mass/Vol] 174 mg/dL High 60-105 [facility] Comment on above: Order Comment: Speci men Type: ARTERIAL BLOOD SPECIMENOrdering Facility: [facility] Address: [address] [place] [address] Performed By: #### A LLBG ####[facility]ORATORYCLIA [id number] [place] [address] [place] HCO3 (Bld) [Moles/Vol] 20 mmol/L Low 22-26 [facility] Comment on above: Order Comment: Speci men Type: ARTERIAL BLOOD SPECIMENOrdering Facility: [facility] Address: [address] [place] [address] Performed By: #### A LLBG ####[facility]ORATORYCLIA [id number] [address] [place] Hematocrit (Bld) [Volume fraction] 34.3 % Low 36.0-46.0 [facility] Comment on above: Order Comment: Speci men Type: ARTERIAL BLOOD SPECIMENOrdering Facility: [facility] Address: [address] [place] [address] Performed By: #### A LLBG ####[facility]ORATORYCLIA [id number] [place] [address] [place] Hemoglobin (Bld) [Mass/Vol] 11.1 g/dL Low 11.5-15.5 [facility] Comment on above: Order Comment: Speci men Type: ARTERIAL BLOOD SPECIMENOrdering Facility: [facility] Address: [address] [place] [address] Performed By: #### A LLBG ####[facility]ORATORYCLIA [id number] [address] [place] Lactate [Moles/Vol] 3.0 mmol/L High 0.5-2.2 [facility] Comment on above: Order Comment: Speci men Type: ARTERIAL BLOOD SPECIMENOrdering Facility: [facility] Address: [address] [place] [address] Performed By: #### A LLBG ####[facility]ORATORYCLIA [id number] [address] Methemoglobin (Bld) [Mass fraction] 0.9 % Normal 0.0-1.5 [facility] Comment on above: Order Comment: Speci men Type: ARTERIAL BLOOD SPECIMENOrdering Facility: [facility] Address: [address] [place] [address] Performed By: #### A LLBG ####[facility]ORATORYCLIA [id number] [address] O2 THERAPY VENT=Ventilator Normal [facility] Comment on above: Order Comment: Speci men Type: ARTERIAL BLOOD SPECIMENOrdering Facility: [facility] Address: [address] [place] [address] Performed By: #### A LLBG ####[facility]ORATORYCLIA [id number] [address] Oxygen (Bld) [Partial pressure] 100 mm Hg High 85-95 [facility] Comment on above: Order Comment: Speci men Type: ARTERIAL BLOOD SPECIMENOrdering Facility: [facility] Address: [address] [place] [address] Performed By: #### A LLBG ####[facility]ORATORYCLIA [id number] [address] Oxygen adjusted to patient's actual temperature (Bld) [Partial pressure] 96 mmHg High 85-95 [facility] Comment on above: Order Comment: Speci men Type: ARTERIAL BLOOD SPECIMENOrdering Facility: [facility] Address: [address] [place] [address] Performed By: #### A LLBG ####[facility]ATORYCLIA [id number] [address] [place] Oxyhemoglobin (BldA) [Mass fraction] 95 % Normal 95-98 [facility] Comment on above: Order Comment: Speci men Type: ARTERIAL BLOOD SPECIMENOrdering Facility: [facility] Address: [address] [place] [address] Performed By: #### A LLBG ####[facility]ORATORYCLIA [id number] [address] [place] PEEP/CPAP 5 cmH2O Normal [facility] Comment on above: Order Comment: Speci men Type: ARTERIAL BLOOD SPECIMENOrdering Facility: [facility] Address: [address] [place] [address] Performed By: #### A LLBG ####[facility]ORATORYCLIA [id number] [address] [place] pH (Bld) 7.39 [pH] Normal 7.35-7.45 [facility] Comment on above: Order Comment: Speci men Type: ARTERIAL BLOOD SPECIMENOrdering Facility: [facility] Address: [address] [place] [address] Performed By: #### A LLBG ####[facility]ATORYCLIA [id number] [address] STATES [facility] pH adjusted to patient's actual temperature (Bld) 7.40 Normal 7.35-7.45 [facility] Comment on above: Order Comment: Speci men Type: ARTERIAL BLOOD SPECIMENOrdering Facility: [facility] Address: [address] [place] [address] Performed By: #### A LLBG ####[facility]ORATORYCLIA [id number] [place] [address] [place] PO2 / FIO2 RATIO 333 mmHg Normal >300 [facility] Comment on above: Order Comment: Speci men Type: ARTERIAL BLOOD SPECIMENOrdering Facility: [facility] Address: [address] [place] [address] Performed By: #### A LLBG ####[facility]ATORYCLIA [id number] [address] [place] Potassium [Moles/Vol] 4.9 mmol/L Normal 3.5-5.0 [facility] Comment on above: Order Comment: Speci men Type: ARTERIAL BLOOD SPECIMENOrdering Facility: [facility] Address: [address] [place] [address] Performed By: #### A LLBG ####[facility]ORATORYCLIA [id number] [address] [place] Sodium [Moles/Vol] 134 mmol/L Low 136-144 [facility] Comment on above: Order Comment: Speci men Type: ARTERIAL BLOOD SPECIMENOrdering Facility: [facility] Address: [address] [place] [address] Performed By: #### A LLBG ####[facility]ORATORYCLIA [id number] [address] [place] Basic metabolic 2000 panelon 01-07-2025 Anion gap [Moles/Vol] 10 mmol/L Normal 8-15 [facility] Comment on above: Order Comment: Speci men Type: BLOOD SPECIMENOrdering Facility: [facility] Address: [address] [place] [address] Performed By: #### 2 [id number] ####[facility]ORYCLIA [id number] [place] [address] [place] Calcium [Mass/Vol] 8.7 mg/dL Normal 8.5-10.2 [facility] Comment on above: Order Comment: Speci men Type: BLOOD SPECIMENOrdering Facility: [facility] Address: [address] [place] [address] Performed By: #### 2 4321-2 ####[facility]ORATORYCLIA [id number] [address] STATES OF [facility] Chloride [Moles/Vol] 110 mmol/L High 98-107 [facility] Comment on above: Order Comment: Speci men Type: BLOOD SPECIMENOrdering Facility: [facility] Address: [address] [place] [address] Performed By: #### 2 4321-2 ####[facility] LABORATORYCLIA [id number] [address] [place] CO2 [Moles/Vol] 17 mmol/L Low 22-30 [facility] Comment on above: Order Comment: Speci men Type: BLOOD SPECIMENOrdering Facility: [facility] Address: [address] [place] [address] Performed By: #### 2 4321-2 ####[facility]ORATORYCLIA [id number] [address] OF [facility] Creatinine [Mass/Vol] 1.42 mg/dL High 0.58-0.96 [facility] Comment on above: Order Comment: Speci men Type: BLOOD SPECIMENOrdering Facility: [facility] Address: [address] [place] [address] Performed By: #### 2 4321-2 ####[facility]ORATORYCLIA [id number] [address] Creatinine and Glomerular filtration rate.predicted panel (S/P/Bld) 36 mL/min/1.73m??? Low >=60 [facility] Comment on above: Order Comment: Speci men Type: BLOOD SPECIMENOrdering Facility: [facility] Address: [address] [place] [address] Result Comment: Ely mated Glomerular Filtration Rate [...] actual GFR. Performed By: #### 2 4321-2 ####[facility]ORATORYCLIA [id number] [place] [address] [place] Glucose [Mass/Vol] 138 mg/dL High 74-99 [facility] Comment on above: Order Comment: Adelita austin Type: BLOOD SPECIMENOrdering Facility: [facility] Address: [address] [place] [address] Result Comment: The [place] [employer] (ADA) provides guidance for cutoff [...] Standards of Medical Care in Diabetes 2016, [place] [employer]. Diabetes Care. 2016.39(Suppl 1). Performed By: #### 2 4321-2 ####[facility]ORATORYCLIA [id number] [place] [address] [place] Potassium [Moles/Vol] 5.0 mmol/L Normal 3.7-5.1 [facility] Comment on above: Order Comment: Adelita austin Type: BLOOD SPECIMENOrdering Facility: [facility] Address: [address] [place] [address] Performed By: #### 2 4321-2 ####[facility]ORATORYCLIA [id number] [place] [address] [place] Sodium [Moles/Vol] 137 mmol/L Normal 136-144 [facility] Comment on above: Order Comment: Adelita geovanna Type: BLOOD SPECIMENOrdering Facility: [facility] Address: [address] [place] [address] Performed By: #### 2 4321-2 ####[facility]ORATORYCLIA [id number] [place] [address] [place] Urea nitrogen [Mass/Vol] 17 mg/dL Normal 7-21 [facility] Comment on above: Order Comment: Speci men Type: BLOOD SPECIMENOrdering Facility: [facility] Address: [address] [place] [address] Performed By: #### 2 4321-2 ####[facility]ORATORYCLIA [id number] [place] [address] [place] Anion gap [Moles/Vol] 10 mmol/L Normal 8-15 [facility] Comment on above: Order Comment: Speci men Type: BLOOD SPECIMENOrdering Facility: [facility] Address: [address] [place] [address] Performed By: #### 2 4321-2, , 2776-10 ####[facility]ORATORYCLIA [id number] [place] [address] [place] Calcium [Mass/Vol] 8.7 mg/dL Normal 8.5-10.2 [facility] Comment on above: Order Comment: Speci men Type: BLOOD SPECIMENOrdering Facility: [facility] Address: [address] [place] [address] Performed By: #### 2 4321-2, , 2776-10 ####[facility]ORATORYCLIA [id number] [place] [address] [place] Chloride [Moles/Vol] 110 mmol/L High 98-107 [facility] Comment on above: Order Comment: Speci men Type: BLOOD SPECIMENOrdering Facility: [facility] Address: [address] [place] [address] Performed By: #### 2 4321-2, , 2776-10 ####[facility]ORATORYCLIA [id number] [place] [address] [place] CO2 [Moles/Vol] 19 mmol/L Low 22-30 [facility] Comment on above: Order Comment: Speci men Type: BLOOD SPECIMENOrdering Facility: [facility] Address: [address] [place] [address] Performed By: #### 2 4321-2, , 2776-10 ####[facility] MOORESVILLEIA [id number] [place] [address] [place] [facility] Creatinine [Mass/Vol] 1.36 mg/dL High 0.58-0.96 [facility] Comment on above: Order Comment: Adelita austin Type: BLOOD SPECIMENOrdering Facility: [facility] Address: [address] [place] [address] Performed By: #### 2 4321-2, , 2776-10 ####[facility] MOORESVILLEIA [id number] [place] [address] [facility] Creatinine and Glomerular filtration rate.predicted panel (S/P/Bld) 38 mL/min/1.73m??? Low >=60 [facility] Comment on above: Order Comment: Adelita austin Type: BLOOD SPECIMENOrdering Facility: [facility] Address: [address] [place] [address] Result Comment: Ely mated Glomerular Filtration Rate [...] Performed By: #### 2 4321-2, , 2776-10 ####[facility]ESVILLEIA [id number] [place] [id number] [place] [facility] Glucose [Mass/Vol] 151 mg/dL High 74-99 [facility] Comment on above: Order Comment: Adelita [facility] Type: BLOOD SPECIMENOrdering Facility: [facility] Address: [address] [place] [address] Result Comment: The [place] Diabetes Association (ADA) provides guidance for cutoff [...] Standards of Medical Care in Diabetes 2016, [place] [employer]. Diabetes Care. 2016.39(Suppl 1). Performed By: #### 2 4321-2, , 2776-10 ####[facility]ORATORYCLIA [id number] [place] [address] [place] Potassium [Moles/Vol] 5.4 mmol/L High 3.7-5.1 [facility] Comment on above: Order Comment: Adelita austin Type: BLOOD SPECIMENOrdering Facility: [facility] Address: [address] [place] [address] Performed By: #### 2 4321-2, , 2776-10 ####[facility]ORATORYCLIA [id number] [address] STATES OF [facility] Sodium [Moles/Vol] 139 mmol/L Normal 136-144 [facility] Comment on above: Order Comment: Adelita austin Type: BLOOD SPECIMENOrdering Facility: [facility] Address: [address] [place] [address] Performed By: #### 2 4321-2, , 2776-10 ####[facility]ORATORYCLIA [id number] [place] [address] [place] Urea nitrogen [Mass/Vol] 17 mg/dL Normal 7-21 [facility] Comment on above: Order Comment: Adelita austin Type: BLOOD SPECIMENOrdering Facility: [facility] Address: [address] [place] [address] Performed By: #### 2 4321-2, , 2776-10 ####[facility]ORATORYCLIA [id number] [place] [address] [place] CBC panel Auto (Bld)on 01-07 Erythrocyte distribution width (RBC) [Ratio] 15.9 % High 11.5-15.0 [facility] Comment on above: Order Comment: Speci men Type: BLOOD SPECIMENOrdering Facility: [facility] Address: [address] [place] [address] Performed By: #### 5 8410-2 ####[facility]ORATORYCLIA [id number] [address] STATES OF [facility] Hematocrit (Bld) [Volume fraction] 31.1 % Low 36.0-46.0 [facility] Comment on above: Order Comment: Speci men Type: BLOOD SPECIMENOrdering Facility: [facility] Address: [address] [place] [address] Performed By: #### 5 8410-2 ####[facility]ORATORYCLIA [id number] [address] OF [facility] Hemoglobin (Bld) [Mass/Vol] 10.8 g/dL Low 11.5-15.5 [facility] Comment on above: Order Comment: Speci men Type: BLOOD SPECIMENOrdering Facility: [facility] Address: [address] [place] [address] Performed By: #### 5 8410-2 ####[facility]ORATORYCLIA [id number] [address] [place] MCH (RBC) [Entitic mass] 29.8 pg Normal 26.0-34.0 [facility] Comment on above: Order Comment: Speci men Type: BLOOD SPECIMENOrdering Facility: [facility] Address: [address] [place] [address] Performed By: #### 5 8410-2 ####[facility]ORATORYCLIA [id number] [address] [place] MCHC (RBC) [Mass/Vol] 34.7 g/dL Normal 30.5-36.0 [facility] Comment on above: Order Comment: Speci men Type: BLOOD SPECIMENOrdering Facility: [facility] Address: [address] [place] [address] Performed By: #### 5 8410-2 ####[facility]ORATORYCLIA [id number] [address] OF [facility] MCV (RBC) [Entitic vol] 85.7 fL Normal 80.0-100.0 [facility] Comment on above: Order Comment: Speci men Type: BLOOD SPECIMENOrdering Facility: [facility] Address: [address] [place] [address] Performed By: #### 5 8410-2 ####[facility]ORATORYCLIA [id number] [address] [place] Nucleated RBC (Bld) [#/Vol] 0.04 10*3/uL High <0.01 [facility] Comment on above: Order Comment: Speci men Type: BLOOD SPECIMENOrdering Facility: [facility] Address: [address] [place] [address] Performed By: #### 5 8410-2 ####[facility]ORATORYCLIA [id number] [address] OF [facility] Platelet mean volume (Bld) [Entitic vol] 10.1 fL Normal 9.0-12.7 [facility] Comment on above: Order Comment: Speci men Type: BLOOD SPECIMENOrdering Facility: [facility] Address: [address] [place] [address] Performed By: #### 5 8410-2 ####[facility]ORATORYCLIA [id number] [address] [place] Platelets (Bld) [#/Vol] 234 10*3/uL Normal 150-400 [facility] Comment on above: Order Comment: Speci men Type: BLOOD SPECIMENOrdering Facility: [facility] Address: [address] [place] [address] Performed By: #### 5 8410-2 ####[facility]ORATORYCLIA [id number] [address] [place] RBC (Bld) [#/Vol] 3.63 10*6/uL Low 3.90-5.20 [facility] Comment on above: Order Comment: Speci men Type: BLOOD SPECIMENOrdering Facility: [facility] Address: [address] [place] [address] Performed By: #### 5 8410-2 ####[facility]ORATORYCLIA [id number] [place] [address] [place] WBC (Bld) [#/Vol] 29.81 10*3/uL High 3.70-11.00 [facility] Comment on above: Order Comment: Speci men Type: BLOOD SPECIMENOrdering Facility: [facility] Address: [address] [place] [address] Performed By: #### 5 8410-2 ####[facility]ORATORYCLIA [id number] [address] OF [facility] CONSULT PROGon 01-07-2025 CONSULT PROG Normal [facility] CONSULT PROG Normal [facility] Calcium.ionized [Moles/Vol]o n 01-07-2025 Calcium.ionized (BldV) [Mass/Vol] 1.27 mmol/L Normal 1.08-1.30 [facility] Comment on above: Order Comment: Speci men Type: BLOOD SPECIMENOrdering Facility: [facility] Address: [address] [place] [address] Performed By: #### 1 995-0 ####[facility]ORATORYCLIA [id number] [address] Calcium.ionized adjusted to pH 7.4 (Bld) [Moles/Vol] 1.28 mmol/L Normal 1.08-1.30 [facility] Comment on above: Order Comment: Speci men Type: BLOOD SPECIMENOrdering Facility: [facility] Address: [address] [place] [address] Performed By: #### 1 995-0 ####[facility]ORATORYCLIA [id number] [address] [place] Lactate (Bld) [Moles/Vol]on 01-07-2025 Lactate [Moles/Vol] 0.8 mmol/L Normal 0.5-2.2 [facility] Comment on above: Order Comment: Speci men Type: BLOOD SPECIMENOrdering Facility: [facility] Address: [address] [place] [address] Performed By: #### 3 2693-4 ####[facility]ORATORYCLIA [id number] [address] OF [facility] Magnesium SerPl-mCncon 01-07 Magnesium [Mass/Vol] 3.2 mg/dL High 1.7-2.3 [facility] Comment on above: Order Comment: Speci men Type: BLOOD SPECIMENOrdering Facility: [facility] Address: [address] [place] [address] Performed By: #### 2 4321-2, 97500-6, 2777-1 ####[facility]ORATORYCLIA [id number] [address] Phosphate SerPl-mCncon 01-07 Phosphate [Mass/Vol] 4.4 mg/dL Normal 2.7-4.8 [facility] Comment on above: Order Comment: Speci men Type: BLOOD SPECIMENOrdering Facility: [facility] Address: [address] [place] [address] Performed By: #### 2 4321-2, , 2777-1 ####[facility]ORATORYCLIA [id number] [address] OF [facility] THERAPY NTon 01-07-2025 THERAPY NT Normal [facility] THERAPY NT Normal [facility] XR CHEST 1V FRONTALon 2024 XR CHEST 1V FRONTAL Normal [facility] 12 Lead EKGon 01-06-2025 12 Lead EKG [facility] [address] [place] [address] 12 Lead EKG 01/06/25 0412 MR#: [id number] Acct: [id number] Name: MARY CRANE Rep #: [id number] : 1940 84 From: Mairo Hagen MD Attending Dr: Status: DEP ER [...] block Prolonged QT Abnormal ECG Confirmed by HIEU CERVANTES, MARIO ([id number]), editor map ZAID CALLAHAN ([id number]) on 01/06/2025 8:26:03 AM Referred By: LYDIA Confirmed By: MARIO HAGEN MD 01/06/25825 Date Mario Hagen MD CC: Dr. Atul Harvey, ; Dr. Fredy Freeman DO Signed Normal [facility] ALLIED HEALTHon 01-06-2025 ALLIED HEALTH Normal [facility] ALLIED HEALTH Normal [facility] ALLIED HEALTH Normal [facility] ALLIED HEALTH Normal [facility] ANES POSTPROC EVALon 025 ANES POSTPROC EVAL Normal [facility] ANES PRE-OPon 01-06-2025 ANES PRE-OP Normal [facility] ARTERIAL BLOOD GASESon 01-06 Base deficit (BldA) [Moles/Vol] -8 mmol/L Low -2-0 [facility] Comment on above: Order Comment: Speci men Type: ARTERIAL BLOOD SPECIMENOrdering Facility: [facility] Address: [address] [place] [address] Performed By: #### A LLBG ####[facility]ORATORYCLIA [id number] [place] [address] [place] [facility] Body temperature 98.42 [degF] Normal [facility] Comment on above: Order Comment: Speci men Type: ARTERIAL BLOOD SPECIMENOrdering Facility: [facility] Address: [address] [place] [address] Performed By: #### A LLBG ####[facility]ORATORYCLIA [id number] [address] [place] Calcium.ionized (BldV) [Mass/Vol] 1.36 mmol/L High 1.08-1.30 [facility] Comment on above: Order Comment: Speci men Type: ARTERIAL BLOOD SPECIMENOrdering Facility: [facility] Address: [address] [place] [address] Performed By: #### A LLBG ####[facility]ORATORYCLIA [id number] [address] [place] Calcium.ionized adjusted to pH 7.4 (BldA) [Moles/Vol] 1.33 mmol/L High 1.08-1.30 [facility] Comment on above: Order Comment: Speci men Type: ARTERIAL BLOOD SPECIMENOrdering Facility: [facility] Address: [address] [place] [address] Performed By: #### A LLBG ####[facility]ORATORYCLIA [id number] [address] OF [facility] Carboxyhemoglobin (BldA) [Mass fraction] 1.7 % Normal 0.0-2.0 [facility] Comment on above: Order Comment: Speci men Type: ARTERIAL BLOOD SPECIMENOrdering Facility: [facility] Address: [address] [place] [address] Result Comment: Carb oxyhemoglobin Reference Range for Smokers: 2.0-8.0% Performed By: #### A LLBG ####[facility]ORATORYCLIA [id number] [place] [address] [place] Chloride [Moles/Vol] 112 mmol/L High 97-105 [facility] Comment on above: Order Comment: Speci men Type: ARTERIAL BLOOD SPECIMENOrdering Facility: [facility] Address: [address] [place] [address] Performed By: #### A LLBG ####[facility]ORATORYCLIA [id number] [address] [place] CO2 (Bld) [Partial pressure] 31 mm Hg Low 36-46 [facility] Comment on above: Order Comment: Speci men Type: ARTERIAL BLOOD SPECIMENOrdering Facility: [facility] Address: [address] [place] [address] Performed By: #### A LLBG ####[facility]ORATORYCLIA [id number] [address] CO2 adjusted to patient's actual temperature (Bld) [Partial pressure] 30 mmHg Low 36-46 [facility] Comment on above: Order Comment: Speci men Type: ARTERIAL BLOOD SPECIMENOrdering Facility: [facility] Address: [address] [place] [address] Performed By: #### A LLBG ####[facility]ORATORYCLIA [id number] [address] [place] Glucose [Mass/Vol] 276 mg/dL High 60-105 [facility] Comment on above: Order Comment: Speci men Type: ARTERIAL BLOOD SPECIMENOrdering Facility: [facility] Address: [address] [place] [address] Performed By: #### A LLBG ####[facility]ORATORYCLIA [id number] [address] [place] HCO3 (Bld) [Moles/Vol] 17 mmol/L Low 22-26 [facility] Comment on above: Order Comment: Speci men Type: ARTERIAL BLOOD SPECIMENOrdering Facility: [facility] Address: [address] [place] [address] Performed By: #### A LLBG ####[facility] LABORATORYCLIA [id number] [address] [place] Hematocrit (Bld) [Volume fraction] 37.9 % Normal 36.0-46.0 [facility] Comment on above: Order Comment: Speci men Type: ARTERIAL BLOOD SPECIMENOrdering Facility: [facility] Address: [address] [place] [address] Performed By: #### A LLBG ####[facility] LABORATORYCLIA [id number] [address] [place] Hemoglobin (Bld) [Mass/Vol] 12.3 g/dL Normal 11.5-15.5 [facility] Comment on above: Order Comment: Speci men Type: ARTERIAL BLOOD SPECIMENOrdering Facility: [facility] Address: [address] [place] [address] Performed By: #### A LLBG ####[facility] LABORATORYCLIA [id number] [address] [place] Lactate [Moles/Vol] 5.1 mmol/L High 0.5-2.2 [facility] Comment on above: Order Comment: Speci men Type: ARTERIAL BLOOD SPECIMENOrdering Facility: [facility] Address: [address] [place] [address] Performed By: #### A LLBG ####[facility]ORATORYCLIA [id number] [address] Methemoglobin (Bld) [Mass fraction] 0.9 % Normal 0.0-1.5 [facility] Comment on above: Order Comment: Speci men Type: ARTERIAL BLOOD SPECIMENOrdering Facility: [facility] Address: [address] [place] [address] Performed By: #### A LLBG ####[facility]ORATORYCLIA [id number] [address] O2 THERAPY VENT=Ventilator Normal [facility] Comment on above: Order Comment: Speci men Type: ARTERIAL BLOOD SPECIMENOrdering Facility: [facility] Address: [address] [place] [address] Performed By: #### A LLBG ####[facility]ORATORYCLIA [id number] [address] Oxygen (Bld) [Partial pressure] 102 mm Hg High 85-95 [facility] Comment on above: Order Comment: Speci men Type: ARTERIAL BLOOD SPECIMENOrdering Facility: [facility] Address: [address] [place] [address] Performed By: #### A LLBG ####[facility]ORATORYCLIA [id number] [address] Oxygen adjusted to patient's actual temperature (Bld) [Partial pressure] 102 mmHg High 85-95 [facility] Comment on above: Order Comment: Speci men Type: ARTERIAL BLOOD SPECIMENOrdering Facility: [facility] Address: [address] [place] [address] Performed By: #### A LLBG ####[facility]ORATORYCLIA [id number] [address] Oxyhemoglobin (BldA) [Mass fraction] 96 % Normal 95-98 [facility] Comment on above: Order Comment: Speci men Type: ARTERIAL BLOOD SPECIMENOrdering Facility: [facility] Address: [address] [place] [address] Performed By: #### A LLBG ####[facility]ORATORYCLIA [id number] [address] pH (Bld) 7.35 [pH] Normal 7.35-7.45 [facility] Comment on above: Order Comment: Speci men Type: ARTERIAL BLOOD SPECIMENOrdering Facility: [facility] Address: [address] [place] [address] Performed By: #### A LLBG ####[facility]ORATORYCLIA [id number] [address] pH adjusted to patient's actual temperature (Bld) 7.35 Normal 7.35-7.45 [facility] Comment on above: Order Comment: Speci men Type: ARTERIAL BLOOD SPECIMENOrdering Facility: [facility] Address: [address] [place] [address] Performed By: #### A LLBG ####[facility] LABORATORYCLIA [id number] [address] [place] Potassium [Moles/Vol] 4.9 mmol/L Normal 3.5-5.0 [facility] Comment on above: Order Comment: Speci men Type: ARTERIAL BLOOD SPECIMENOrdering Facility: [facility] Address: [address] [place] [address] Performed By: #### A LLBG ####[facility]ORATORYCLIA [id number] [address] Sodium [Moles/Vol] 138 mmol/L Normal 136-144 [facility] Comment on above: Order Comment: Speci men Type: ARTERIAL BLOOD SPECIMENOrdering Facility: [facility] Address: [address] [place] [address] Performed By: #### A LLBG ####[facility] LABORATORYCLIA [id number] [address] [place] Base deficit (BldA) [Moles/Vol] -8 mmol/L Low -2-0 [facility] Comment on above: Order Comment: Speci men Type: ARTERIAL BLOOD SPECIMENOrdering Facility: [facility] Address: [address] [place] [address] Performed By: #### A LLBG ####[facility] LABORATORYCLIA [id number] [address] Body temperature 97.52 [degF] Normal [facility] Comment on above: Order Comment: Speci men Type: ARTERIAL BLOOD SPECIMENOrdering Facility: [facility] Address: [address] [place] [address] Performed By: #### A LLBG ####[facility] LABORATORYCLIA [id number] [address] [place] Calcium.ionized (BldV) [Mass/Vol] 1.44 mmol/L High 1.08-1.30 [facility] Center Comment on above: Order Comment: Speci men Type: ARTERIAL BLOOD SPECIMENOrdering Facility: [facility] Address: [address] [place] [address] Performed By: #### A LLBG ####[facility] LABORATORYCLIA [id number] [address] [place] Calcium.ionized adjusted to pH 7.4 (BldA) [Moles/Vol] 1.37 mmol/L High 1.08-1.30 [facility] Comment on above: Order Comment: Speci men Type: ARTERIAL BLOOD SPECIMENOrdering Facility: [facility] Address: [address] [place] [address] Performed By: #### A LLBG ####[facility]ORATORYCLIA [id number] [place] [address] [place] Carboxyhemoglobin (BldA) [Mass fraction] 1.8 % Normal 0.0-2.0 [facility] Comment on above: Order Comment: Speci men Type: ARTERIAL BLOOD SPECIMENOrdering Facility: [facility] Address: [address] [place] [address] Result Comment: Carb oxyhemoglobin Reference Range for Smokers: 2.0-8.0% Performed By: #### A LLBG ####[facility]ORATORYCLIA [id number] [place] [address] [place] Chloride [Moles/Vol] 112 mmol/L High 97-105 [facility] Comment on above: Order Comment: Speci men Type: ARTERIAL BLOOD SPECIMENOrdering Facility: [facility] Address: [address] [place] [address] Performed By: #### A LLBG ####[facility] LABORATORYCLIA [id number] [address] [place] CO2 (Bld) [Partial pressure] 36 mm Hg Normal 36-46 [facility] Comment on above: Order Comment: Speci men Type: ARTERIAL BLOOD SPECIMENOrdering Facility: [facility] Address: [address] [place] [address] Performed By: #### A LLBG ####[facility] LABORATORYCLIA [id number] [address] [place] CO2 adjusted to patient's actual temperature (Bld) [Partial pressure] 35 mmHg Low 36-46 [facility] Comment on above: Order Comment: Speci men Type: ARTERIAL BLOOD SPECIMENOrdering Facility: [facility] Address: [address] [place] [address] Performed By: #### A LLBG ####[facility]ORATORYCLIA [id number] [place] [address] [place] HCO3 (Bld) [Moles/Vol] 18 mmol/L Low 22-26 [facility] Comment on above: Order Comment: Speci men Type: ARTERIAL BLOOD SPECIMENOrdering Facility: [facility] Address: [address] [place] [address] Performed By: #### A LLBG ####[facility]ORATORYCLIA [id number] [address] Hematocrit (Bld) [Volume fraction] 40.9 % Normal 36.0-46.0 [facility] Comment on above: Order Comment: Speci men Type: ARTERIAL BLOOD SPECIMENOrdering Facility: [facility] Address: [address] [place] [address] Performed By: #### A LLBG ####[facility] LABORATORYCLIA [id number] [address] [place] Hemoglobin (Bld) [Mass/Vol] 13.3 g/dL Normal 11.5-15.5 [facility] Comment on above: Order Comment: Speci men Type: ARTERIAL BLOOD SPECIMENOrdering Facility: [facility] Address: [address] [place] [address] Performed By: #### A LLBG ####[facility]ORATORYCLIA [id number] [address] [place] Lactate [Moles/Vol] 6.1 mmol/L High 0.5-2.2 [facility] Comment on above: Order Comment: Speci men Type: ARTERIAL BLOOD SPECIMENOrdering Facility: [facility] Address: [address] [place] [address] Performed By: #### A LLBG ####[facility] LABORATORYCLIA [id number] [address] [place] Methemoglobin (Bld) [Mass fraction] 1.0 % Normal 0.0-1.5 [facility] Comment on above: Order Comment: Speci men Type: ARTERIAL BLOOD SPECIMENOrdering Facility: [facility] Address: [address] [place] [address] Performed By: #### A LLBG ####[facility]ORATORYCLIA [id number] [address] [place] O2 THERAPY VENT=Ventilator Normal [facility] Comment on above: Order Comment: Speci men Type: ARTERIAL BLOOD SPECIMENOrdering Facility: [facility] Address: [address] [place] [address] Performed By: #### A LLBG ####[facility] LABORATORYCLIA [id number] [address] [place] Oxygen (Bld) [Partial pressure] 121 mm Hg High 85-95 [facility] Comment on above: Order Comment: Speci men Type: ARTERIAL BLOOD SPECIMENOrdering Facility: [facility] Address: [address] [place] [address] Performed By: #### A LLBG ####[facility]ORATORYCLIA [id number] [address] Oxygen adjusted to patient's actual temperature (Bld) [Partial pressure] 118 mmHg High 85-95 [facility] Comment on above: Order Comment: Speci men Type: ARTERIAL BLOOD SPECIMENOrdering Facility: [facility] Address: [address] [place] [address] Performed By: #### A LLBG ####[facility]ORATORYCLIA [id number] [address] Oxyhemoglobin (BldA) [Mass fraction] 96 % Normal 95-98 [facility] Comment on above: Order Comment: Speci men Type: ARTERIAL BLOOD SPECIMENOrdering Facility: [facility] Address: [address] [place] [address] Performed By: #### A LLBG ####[facility]ORATORYCLIA [id number] [address] [place] pH (Bld) 7.31 [pH] Low 7.35-7.45 [facility] Comment on above: Order Comment: Speci men Type: ARTERIAL BLOOD SPECIMENOrdering Facility: [facility] Address: [address] [place] [address] Performed By: #### A LLBG ####[facility] LABORATORYCLIA [id number] [address] [place] pH adjusted to patient's actual temperature (Bld) 7.32 Low 7.35-7.45 [facility] Comment on above: Order Comment: Speci men Type: ARTERIAL BLOOD SPECIMENOrdering Facility: [facility] Address: [address] [place] [address] Performed By: #### A LLBG ####[facility]ORATORYCLIA [id number] [address] [place] Potassium [Moles/Vol] 5.0 mmol/L Normal 3.5-5.0 [facility] Comment on above: Order Comment: Speci men Type: ARTERIAL BLOOD SPECIMENOrdering Facility: [facility] Address: [address] [place] [address] Performed By: #### A LLBG ####[facility]ORATORYCLIA [id number] [address] Sodium [Moles/Vol] 138 mmol/L Normal 136-144 [facility] Comment on above: Order Comment: Speci men Type: ARTERIAL BLOOD SPECIMENOrdering Facility: [facility] Address: [address] [place] [address] Performed By: #### A LLBG ####[facility] LABORATORYCLIA [id number] [address] Base deficit (BldA) [Moles/Vol] -8 mmol/L Low -2-0 [facility] Comment on above: Order Comment: Speci men Type: ARTERIAL BLOOD SPECIMENOrdering Facility: [facility] Address: [address] [place] [address] Performed By: #### A LLBG ####[facility]ORATORYCLIA [id number] [address] Body temperature 90.86 [degF] Normal [facility] Comment on above: Order Comment: Speci men Type: ARTERIAL BLOOD SPECIMENOrdering Facility: [facility] Address: [address] [place] [address] Performed By: #### A LLBG ####[facility] LABORATORYCLIA [id number] [place] [address] [place] Calcium.ionized (BldV) [Mass/Vol] 1.51 mmol/L High 1.08-1.30 [facility] Comment on above: Order Comment: Speci men Type: ARTERIAL BLOOD SPECIMENOrdering Facility: [facility] Address: [address] [place] [address] Performed By: #### A LLBG ####[facility]ORATORYCLIA [id number] [address] [place] Calcium.ionized adjusted to pH 7.4 (BldA) [Moles/Vol] 1.45 mmol/L High 1.08-1.30 [facility] Comment on above: Order Comment: Speci men Type: ARTERIAL BLOOD SPECIMENOrdering Facility: [facility] Address: [address] [place] [address] Performed By: #### A LLBG ####[facility]ORATORYCLIA [id number] [address] [place] Carboxyhemoglobin (BldA) [Mass fraction] 1.4 % Normal 0.0-2.0 [facility] Comment on above: Order Comment: Speci men Type: ARTERIAL BLOOD SPECIMENOrdering Facility: [facility] Address: [address] [place] [address] Result Comment: Carb oxyhemoglobin Reference Range for Smokers: 2.0-8.0% Performed By: #### A LLBG ####[facility]ORATORYCLIA [id number] [place] [address] [place] Chloride [Moles/Vol] 109 mmol/L High 97-105 [facility] Comment on above: Order Comment: Speci men Type: ARTERIAL BLOOD SPECIMENOrdering Facility: [facility] Address: [address] [place] [address] Performed By: #### A LLBG ####[facility]ORATORYCLIA [id number] [address] [place] CO2 (Bld) [Partial pressure] 34 mm Hg Low 36-46 [facility] Comment on above: Order Comment: Speci men Type: ARTERIAL BLOOD SPECIMENOrdering Facility: [facility] Address: [address] [place] [address] Performed By: #### A LLBG ####[facility]ATORYCLIA [id number] [address] CO2 adjusted to patient's actual temperature (Bld) [Partial pressure] 28 mmHg Low 36-46 [facility] Comment on above: Order Comment: Speci men Type: ARTERIAL BLOOD SPECIMENOrdering Facility: [facility] Address: [address] [place] [address] Performed By: #### A LLBG ####[facility]ORATORYCLIA [id number] [address] [place] Glucose [Mass/Vol] 236 mg/dL High 60-105 [facility] Comment on above: Order Comment: Speci men Type: ARTERIAL BLOOD SPECIMENOrdering Facility: [facility] Address: [address] [place] [address] Performed By: #### A LLBG ####[facility]ORATORYCLIA [id number] [address] [place] HCO3 (Bld) [Moles/Vol] 17 mmol/L Low 22-26 [facility] Comment on above: Order Comment: Speci men Type: ARTERIAL BLOOD SPECIMENOrdering Facility: [facility] Address: [address] [place] [address] Performed By: #### A LLBG ####[facility]ORATORYCLIA [id number] [address] [place] Hematocrit (Bld) [Volume fraction] 39.8 % Normal 36.0-46.0 [facility] Comment on above: Order Comment: Speci men Type: ARTERIAL BLOOD SPECIMENOrdering Facility: [facility] Address: [address] [place] [address] Performed By: #### A LLBG ####[facility]ORATORYCLIA [id number] [address] [place] Hemoglobin (Bld) [Mass/Vol] 12.9 g/dL Normal 11.5-15.5 [facility] Comment on above: Order Comment: Speci men Type: ARTERIAL BLOOD SPECIMENOrdering Facility: [facility] Address: [address] [place] [address] Performed By: #### A LLBG ####[facility]ORATORYCLIA [id number] [address] [place] Lactate [Moles/Vol] 6.1 mmol/L High 0.5-2.2 [facility] Comment on above: Order Comment: Speci men Type: ARTERIAL BLOOD SPECIMENOrdering Facility: [facility] Address: [address] [place] [address] Performed By: #### A LLBG ####[facility]ORATORYCLIA [id number] [address] Methemoglobin (Bld) [Mass fraction] 0.9 % Normal 0.0-1.5 [facility] Comment on above: Order Comment: Speci men Type: ARTERIAL BLOOD SPECIMENOrdering Facility: [facility] Address: [address] [place] [address] Performed By: #### A LLBG ####[facility]ORATORYCLIA [id number] [address] O2 THERAPY VENT=Ventilator Normal [facility] Comment on above: Order Comment: Speci men Type: ARTERIAL BLOOD SPECIMENOrdering Facility: [facility] Address: [address] [place] [address] Performed By: #### A LLBG ####[facility]ORATORYCLIA [id number] [address] [place] Oxygen (Bld) [Partial pressure] 138 mm Hg High 85-95 [facility] Comment on above: Order Comment: Speci men Type: ARTERIAL BLOOD SPECIMENOrdering Facility: [facility] Address: [address] [place] [address] Performed By: #### A LLBG ####[facility]ATORYCLIA [id number] [address] [place] Oxygen adjusted to patient's actual temperature (Bld) [Partial pressure] 115 mmHg High 85-95 [facility] Comment on above: Order Comment: Speci men Type: ARTERIAL BLOOD SPECIMENOrdering Facility: [facility] Address: [address] [place] [address] Performed By: #### A LLBG ####[facility]ORATORYCLIA [id number] [address] [place] Oxyhemoglobin (BldA) [Mass fraction] 96 % Normal 95-98 [facility] Comment on above: Order Comment: Speci men Type: ARTERIAL BLOOD SPECIMENOrdering Facility: [facility] Address: [address] [place] [address] Performed By: #### A LLBG ####[facility]ORATORYCLIA [id number] [address] [place] pH (Bld) 7.33 [pH] Low 7.35-7.45 [facility] Comment on above: Order Comment: Speci men Type: ARTERIAL BLOOD SPECIMENOrdering Facility: [facility] Address: [address] [place] [address] Performed By: #### A LLBG ####[facility]ORATORYCLIA [id number] [address] pH adjusted to patient's actual temperature (Bld) 7.39 Normal 7.35-7.45 [facility] Comment on above: Order Comment: Speci men Type: ARTERIAL BLOOD SPECIMENOrdering Facility: [facility] Address: [address] [place] [address] Performed By: #### A LLBG ####[facility] LABORATORYCLIA [id number] [place] [address] [place] Potassium [Moles/Vol] 4.1 mmol/L Normal 3.5-5.0 [facility] Comment on above: Order Comment: Speci men Type: ARTERIAL BLOOD SPECIMENOrdering Facility: [facility] Address: [address] [place] [address] Performed By: #### A LLBG ####[facility]ORATORYCLIA [id number] [address] [place] Sodium [Moles/Vol] 138 mmol/L Normal 136-144 [facility] Comment on above: Order Comment: Speci men Type: ARTERIAL BLOOD SPECIMENOrdering Facility: [facility] Address: [address] [place] [address] Performed By: #### A LLBG ####[facility]ORATORYCLIA [id number] [address] [place] Base deficit (BldA) [Moles/Vol] -3 mmol/L Low -2-0 [facility] Comment on above: Order Comment: Speci men Type: ARTERIAL BLOOD SPECIMENOrdering Facility: [facility] Address: [address] [place] [address] Performed By: #### A LLBG ####[facility]ORATORYCLIA [id number] [address] [place] Body temperature 90.68 [degF] Normal [facility] Comment on above: Order Comment: Speci men Type: ARTERIAL BLOOD SPECIMENOrdering Facility: [facility] Address: [address] [place] [address] Performed By: #### A LLBG ####[facility]ORATORYCLIA [id number] [address] [place] Calcium.ionized (BldV) [Mass/Vol] 1.17 mmol/L Normal 1.08-1.30 [facility] Comment on above: Order Comment: Speci men Type: ARTERIAL BLOOD SPECIMENOrdering Facility: [facility] Address: [address] [place] [address] Performed By: #### A LLBG ####[facility]ATORYCLIA [id number] [address] [place] Calcium.ionized adjusted to pH 7.4 (BldA) [Moles/Vol] 1.16 mmol/L Normal 1.08-1.30 [facility] Comment on above: Order Comment: Speci men Type: ARTERIAL BLOOD SPECIMENOrdering Facility: [facility] Address: [address] [place] [address] Performed By: #### A LLBG ####[facility]ATORYCLIA [id number] [address] [place] Carboxyhemoglobin (BldA) [Mass fraction] 1.2 % Normal 0.0-2.0 [facility] Comment on above: Order Comment: Speci men Type: ARTERIAL BLOOD SPECIMENOrdering Facility: [facility] Address: [address] [place] [address] Performed By: #### A LLBG ####[facility]ORYCLIA [id number] [address] [place] Chloride [Moles/Vol] 110 mmol/L High 97-105 [facility] Comment on above: Order Comment: Speci men Type: ARTERIAL BLOOD SPECIMENOrdering Facility: [facility] Address: [address] [place] [address] Performed By: #### A LLBG ####[facility]ORATORYCLIA [id number] [address] [place] CO2 (Bld) [Partial pressure] 35 mm Hg Low 36-46 [facility] Comment on above: Order Comment: Speci men Type: ARTERIAL BLOOD SPECIMENOrdering Facility: [facility] Address: [address] [place] [address] Performed By: #### A LLBG ####[facility]ORATORYCLIA [id number] [address] [place] CO2 adjusted to patient's actual temperature (Bld) [Partial pressure] 28 mmHg Low 36-46 [facility] Comment on above: Order Comment: Speci men Type: ARTERIAL BLOOD SPECIMENOrdering Facility: [facility] Address: [address] [place] [address] Performed By: #### A LLBG ####[facility]ORATORYCLIA [id number] [address] [place] Glucose [Mass/Vol] 181 mg/dL High 60-105 [facility] Comment on above: Order Comment: Speci men Type: ARTERIAL BLOOD SPECIMENOrdering Facility: [facility] Address: [address] [place] [address] Performed By: #### A LLBG ####[facility]ORATORYCLIA [id number] [address] [place] HCO3 (Bld) [Moles/Vol] 21 mmol/L Low 22-26 [facility] Comment on above: Order Comment: Speci men Type: ARTERIAL BLOOD SPECIMENOrdering Facility: [facility] Address: [address] [place] [address] Performed By: #### A LLBG ####[facility]ORATORYCLIA [id number] [address] [place] Hematocrit (Bld) [Volume fraction] 35.3 % Low 36.0-46.0 [facility] Comment on above: Order Comment: Speci men Type: ARTERIAL BLOOD SPECIMENOrdering Facility: [facility] Address: [address] [place] [address] Performed By: #### A LLBG ####[facility]ORATORYCLIA [id number] [address] [place] Hemoglobin (Bld) [Mass/Vol] 11.5 g/dL Normal 11.5-15.5 [facility] Comment on above: Order Comment: Speci men Type: ARTERIAL BLOOD SPECIMENOrdering Facility: [facility] Address: [address] [place] [address] Performed By: #### A LLBG ####[facility]ORATORYCLIA [id number] [address] [place] Lactate [Moles/Vol] 3.8 mmol/L High 0.5-2.2 [facility] Comment on above: Order Comment: Speci men Type: ARTERIAL BLOOD SPECIMENOrdering Facility: [facility] Address: [address] [place] [address] Performed By: #### A LLBG ####[facility]ORATORYCLIA [id number] [address] [place] Methemoglobin (Bld) [Mass fraction] 0.9 % Normal 0.0-1.5 [facility] Comment on above: Order Comment: Speci men Type: ARTERIAL BLOOD SPECIMENOrdering Facility: [facility] Address: [address] [place] [address] Performed By: #### A LLBG ####[facility]ATORYCLIA [id number] [address] O2 THERAPY VENT=Ventilator Normal [facility] Comment on above: Order Comment: Speci men Type: ARTERIAL BLOOD SPECIMENOrdering Facility: [facility] Address: [address] [place] [address] Performed By: #### A LLBG ####[facility]ORATORYCLIA [id number] [address] Oxygen (Bld) [Partial pressure] 200 mm Hg High 85-95 [facility] Comment on above: Order Comment: Speci men Type: ARTERIAL BLOOD SPECIMENOrdering Facility: [facility] Address: [address] [place] [address] Performed By: #### A LLBG ####[facility]ORATORYCLIA [id number] [address] Oxygen adjusted to patient's actual temperature (Bld) [Partial pressure] 181 mmHg High 85-95 [facility] Comment on above: Order Comment: Speci men Type: ARTERIAL BLOOD SPECIMENOrdering Facility: [facility] Address: [address] [place] [address] Performed By: #### A LLBG ####[facility]ORATORYCLIA [id number] [address] [place] Oxyhemoglobin (BldA) [Mass fraction] 97 % Normal 95-98 [facility] Comment on above: Order Comment: Speci men Type: ARTERIAL BLOOD SPECIMENOrdering Facility: [facility] Address: [address] [place] [address] Performed By: #### A LLBG ####[facility]ATORYCLIA [id number] [address] [place] pH (Bld) 7.39 [pH] Normal 7.35-7.45 [facility] Comment on above: Order Comment: Speci men Type: ARTERIAL BLOOD SPECIMENOrdering Facility: [facility] Address: [address] [place] [address] Performed By: #### A LLBG ####[facility]ORATORYCLIA [id number] [address] STATES OF [facility] pH adjusted to patient's actual temperature (Bld) 7.45 Normal 7.35-7.45 [facility] Comment on above: Order Comment: Speci men Type: ARTERIAL BLOOD SPECIMENOrdering Facility: [facility] Address: [address] [place] [address] Performed By: #### A LLBG ####[facility]ORATORYCLIA [id number] [place] [id number] [place] Sodium [Moles/Vol] 139 mmol/L Normal 136-144 [facility] Comment on above: Order Comment: Speci men Type: ARTERIAL BLOOD SPECIMENOrdering Facility: [facility] Address: [address] [place] [address] Performed By: #### A LLBG ####[facility]ORATORYCLIA [id number] [place] [address] [place] Abdomen/Pelvis W IV Cont ONL Yon 01-06-2025 Abdomen/Pelvis W IV Cont ONLY [facility] [address] [place] [id number] Abdomen/Pelvis W IV Cont ONLY MR#: [id number] Acct: [id number] Name: MARY CRANE Kenneth Rep #: [id number] : 1940 F 84 From: [place] MD PCP: Dr. Atul Harvey, DO Status: REG ER Study: Abdomen/Pelvis W IV Cont ONLY Date of Exam: Exam# [id number] Ordering Dr: Fredy Freeman DO EXAM: ABDOMEN/PELVIS [...] of high-density fluid within the upper abdomen zzpr-cbfpdlu-[id number]-rig ht about the spleen and within the pelvis [...] of high-density fluid within the upper abdomen hetx-hsizrmi-nags-rig ht about the spleen and within the pelvis consistent with hemoperitoneum. Small bilateral kidneys with dense appearing nephrograms can be seen with renal disease or ATN. No hydronephrosis. Possible subtle nondisplaced fracture of the posterior left 10th rib axial 20. Study discussed over the phone verbally by myself with Dr. Freeman at 04:10 a.m. 01/06/2025 Reading Location: [id number] CC: Dr. Atul Harvey DO; Dr. Fredy Freeman DO Medical Receptionist Biller: Signed Normal [facility] Absolute lymphocyte countOrd ered By: Fredy Freeman on 01-06-2025 Lymphocytes Auto (Unsp spec) [#/Vol] 1.81 10*3/uL 0.83-4.51 [facility] Absolute neutrophil countOrd ered By: Fredy Freeman on 01-06-2025 Neutrophils (Bld) [#/Vol] 10.1 10*3/uL High 2.0-7.7 [facility] Activated partial thrombopla stin time (aPTT) in platelet poor plasma by coagulation aOrdered By: Fredy Freeman on 01-06-2025 aPTT Coag (Bld) [Time] 37.1 s High 24.1-36.2 [facility] Comment on above: Performed By: #### L 501.4020 #### [facility] Laboratory [address] [place], [place], [address] aPTT Coag (PPP) [Time] 37.1 s High 24.1-36.2 [facility] Ammonia Plas-sCncon 01-07-20 25 Ammonia (P) [Moles/Vol] 20 umol/L Normal 11-51 [facility] Comment on above: Order Comment: Speci men Type: BLOOD SPECIMENOrdering Facility: [facility] Address: [address] [place] [address] Performed By: #### 1 6362-6 ####[facility] LABORATORYCLIA [id number] [place] [id number] [place] [facility] Anion gap in Serum or Plasma Ordered By: Fredy Freeman on 01-06-2025 Anion gap [Moles/Vol] 19 mmol/L High 5-15 [facility] Automated lymphocyte count a s percentage of total leukocytesOrdered By: Fredy Freeman on 01-06-2025 Lymphocytes/100 WBC Auto (Unsp spec) 13.8 % Low 19-41 [facility] BRCon 01-06-2025 RC Normal Neg [facility] Comment on above: Result Comment: [id number] OP RC TRANSFUSED 01/06/25427 [id number] OP RC TRANSFUSED 01/06/25421 [id number] OP RC TRANSFUSED 01/06/25427 Performed By: #### L 501.4020 #### [facility] [address] [place], [place], [address] BRIEF OP NOTon 01-06-2025 BRIEF OP NOT Normal [facility] BUN/creatinine ratioOrdered By: Fredy Freeman on 01-06-2025 Urea nitrogen/Creatinine [Mass ratio] 10.7 mg/mg 10- [facility] Bas Metab 2000 Pnl SerPlon 0 01-06-2025 Glucose [Mass/Vol] 250 mg/dL High 60-105 [facility] Comment on above: Order Comment: Speci men Type: BLOOD SPECIMENOrdering Facility: [facility] Address: [address] [place] [address] Result Comment: The [place] Diabetes [employer] (ADA) provides guidance for cutoff [...] Standards of Medical Care in Diabetes 2016, [place] [employer]. Diabetes Care. 2016.39(Suppl 1). Performed By: #### 2 4321-2 ####[facility] LABORATORYCLIA [id number] [address] [place] Order Comment: Speci men Type: ARTERIAL BLOOD SPECIMENOrdering Facility: [facility] Address: [address] [place] [address] Performed By: #### A LLBG ####[facility] LABORATORYCLIA [id number] [address] [place] Basic metabolic 2000 panelon 01-06-2025 Anion gap [Moles/Vol] 16 mmol/L High 8-15 [facility] Comment on above: Order Comment: Speci men Type: BLOOD SPECIMENOrdering Facility: [facility] Address: [address] [place] [address] Performed By: #### 2 4321-2 ####[facility] LABORATORYCLIA [id number] [place] [address] [place] Calcium [Mass/Vol] 9.6 mg/dL Normal 8.5-10.2 [facility] Comment on above: Order Comment: Speci men Type: BLOOD SPECIMENOrdering Facility: [facility] Address: [address] [place] [address] Performed By: #### 2 4321-2 ####[facility] LABORATORYCLIA [id number] [place] [address] [place] Chloride [Moles/Vol] 108 mmol/L High 98-107 [facility] Comment on above: Order Comment: Speci men Type: BLOOD SPECIMENOrdering Facility: [facility] Address: [address] [place] [address] Performed By: #### 2 4321-2 ####[facility] LABORATORYCLIA [id number] [address] [place] CO2 [Moles/Vol] 15 mmol/L Low 22-30 [facility] Comment on above: Order Comment: Speci men Type: BLOOD SPECIMENOrdering Facility: [facility] Address: [address] [place] [address] Performed By: #### 2 4321-2 ####[facility] LABORATORYCLIA [id number] [place] [address] [place] Creatinine [Mass/Vol] 1.07 mg/dL High 0.58-0.96 [facility] Comment on above: Order Comment: Speci men Type: BLOOD SPECIMENOrdering Facility: [facility] Address: [address] [place] [address] Performed By: #### 2 4321-2 ####[facility] LABORATORYCLIA [id number] [address] [place] Creatinine and Glomerular filtration rate.predicted panel (S/P/Bld) 51 mL/min/1.73m??? Low >=60 [facility] Comment on above: Order Comment: Speci men Type: BLOOD SPECIMENOrdering Facility: [facility] Address: [address] [place] [address] Result Comment: Ely mated Glomerular Filtration Rate [...] actual GFR. Performed By: #### 2 4321-2 ####[facility] LABORATORYCLIA [id number] [address] STATES OF [facility] Potassium [Moles/Vol] 5.2 mmol/L High 3.7-5.1 [facility] Comment on above: Order Comment: Speci men Type: BLOOD SPECIMENOrdering Facility: [facility] Address: [address] [place] [address] Performed By: #### 2 4321-2 ####[facility]ESVILLEIA [id number] [address] [place] Sodium [Moles/Vol] 139 mmol/L Normal 136-144 [facility] Comment on above: Order Comment: Speci men Type: BLOOD SPECIMENOrdering Facility: [facility] Address: [address] [place] [address] Performed By: #### 2 4321-2 ####[facility] MOORESVILLEIA [id number] [address] STATES OF [facility] Urea nitrogen [Mass/Vol] 13 mg/dL Normal 7-21 [facility] Comment on above: Order Comment: Speci men Type: BLOOD SPECIMENOrdering Facility: [facility] Address: [address] [place] [address] Performed By: #### 2 4321-2 ####[facility] LABORATORYCLIA [id number] [address] [place] Anion gap [Moles/Vol] 14 mmol/L Normal 8-15 [facility] Comment on above: Order Comment: Speci men Type: BLOOD SPECIMENOrdering Facility: [facility] Address: [address] [place] [address] Performed By: #### 1 9123-9, 27704-11, 66354-0 ####[facility] LABORATORYCLIA [id number] [place] [address] [place] Calcium [Mass/Vol] 7.7 mg/dL Low 8.5-10.2 [facility] Comment on above: Order Comment: Speci men Type: BLOOD SPECIMENOrdering Facility: [facility] Address: [address] [place] [address] Performed By: #### 1 9123-9, 2776-10, 79275-4 ####[facility] LABORATORYCLIA [id number] [place] [address] [place] Chloride [Moles/Vol] 110 mmol/L High 98-107 [facility] Comment on above: Order Comment: Speci men Type: BLOOD SPECIMENOrdering Facility: [facility] Address: [address] [place] [address] Performed By: #### 1 9123-9, 2776-10, 16928-4 ####[facility] LABORATORYCLIA [id number] [place] [address] [place] CO2 [Moles/Vol] 18 mmol/L Low 22-30 [facility] Comment on above: Order Comment: Speci men Type: BLOOD SPECIMENOrdering Facility: [facility] Address: [address] [place] [address] Performed By: #### 1 9123-9, 2776-10, 06380-5 ####[facility] LABORATORYCLIA [id number] [place] [address] [place] Creatinine [Mass/Vol] 0.84 mg/dL Normal 0.58-0.96 [facility] Comment on above: Order Comment: Speci men Type: BLOOD SPECIMENOrdering Facility: [facility] Address: [address] [place] [address] Performed By: #### 1 9123-9, 27704-11, 56736-2 ####[facility] LABORATORYCLIA [id number] [place] [address] [place] Creatinine and Glomerular filtration rate.predicted panel (S/P/Bld) 68 mL/min/1.73m??? Normal >=60 [facility] Comment on above: Order Comment: Adelita austin Type: BLOOD SPECIMENOrdering Facility: [facility] Address: [address] [place] [address] Result Comment: Ely mated Glomerular Filtration Rate [...] GFR. Performed By: #### 1 9123-9, 2777-1, 67855-8 ####[facility] LABORATORYCLIA [id number] [place] [address] [place] Glucose [Mass/Vol] 192 mg/dL High 74-99 [facility] Comment on above: Order Comment: Adelita austin Type: BLOOD SPECIMENOrdering Facility: [facility] Address: [address] [place] [address] Result Comment: The [place] Diabetes Association (ADA) provides guidance for cutoff [...] Standards of Medical Care in Diabetes 2016, [place] [employer]. Diabetes Care. 2016.39(Suppl 1). Performed By: #### 1 9123-9, 2777-1, 32118-4 ####[facility] LABORATORYCLIA [id number] [place] [address] [place] Sodium [Moles/Vol] 142 mmol/L Normal 136-144 [facility] Comment on above: Order Comment: Speci men Type: BLOOD SPECIMENOrdering Facility: [facility] Address: [address] [place] [address] Performed By: #### 1 9123-9, 2777-1, 55941-2 ####[facility]ATORYCLIA [id number] [place] [address] [place] Urea nitrogen [Mass/Vol] 11 mg/dL Normal 7-21 [facility] Comment on above: Order Comment: Speci men Type: BLOOD SPECIMENOrdering Facility: [facility] Address: [address] [place] [address] Performed By: #### 1 9123-9, 2777, 91326-9 ####[facility] LABORATORYCLIA [id number] [address] [place] Basophil percentageOrdered B y: Fredy Freeman on 01-06-2025 Basophils/100 WBC (Bld) 0.3 % 0-1 W [facility] CBC W Auto Differential pane l (Bld)on 01-06-2025 Basophils (Bld) [#/Vol] 0.11 10*3/uL High <0.11 [facility] Comment on above: Order Comment: Speci men Type: BLOOD SPECIMENOrdering Facility: [facility] Address: [address] [place] [address] Performed By: #### 5 7021-8, 71368-9 ####[facility]ORATORYCLIA [id number] [address] [place] Basophils/100 WBC (Bld) 0.5 % Normal [facility] Comment on above: Order Comment: Speci men Type: BLOOD SPECIMENOrdering Facility: [facility] Address: [address] [place] [address] Performed By: #### 5 7021-8, 35190-3 ####[facility]ATORYCLIA [id number] [place] [address] [place] Eosinophils (Bld) [#/Vol] 10*3/uL Normal <0.46 [facility] Comment on above: Order Comment: Speci men Type: BLOOD SPECIMENOrdering Facility: [facility] Address: [address] [place] [address] Performed By: #### 5 7021-8, 87855-1 ####[facility]ATORYCLIA [id number] [place] [address] [place] Eosinophils/100 WBC (Bld) 0.0 % Normal [facility] Comment on above: Order Comment: Speci men Type: BLOOD SPECIMENOrdering Facility: [facility] Address: [address] [place] [address] Performed By: #### 5 7021-8, 89841-1 ####[facility]ORATORYCLIA [id number] [place] [id number] [place] Immature granulocytes (Bld) [#/Vol] 0.62 10*3/uL High <0.10 [facility] Comment on above: Order Comment: Speci men Type: BLOOD SPECIMENOrdering Facility: [facility] Address: [address] [place] [address] Performed By: #### 5 7021-8, 62672-3 ####[facility]ORATORYCLIA [id number] [address] [place] Immature granulocytes/100 WBC (Bld) 2.7 % Normal [facility] Comment on above: Order Comment: Speci men Type: BLOOD SPECIMENOrdering Facility: [facility] Address: [facility] [place] [address] Performed By: #### 5 7021-8, 60068-7 ####[facility] [facility]ORATORYCLIA [id number] [place] [id number] [place] Lymphocytes (Bld) [#/Vol] 1.42 10*3/uL Normal 1.00-4.00 [facility] Comment on above: Order Comment: Speci men Type: BLOOD SPECIMENOrdering Facility: [facility] Address: [address] [place] [address] Performed By: #### 5 7021-8, 66034-1 ####[facility] [facility]ORATORYCLIA [id number] [place] [address] [place] Lymphocytes/100 WBC (Bld) 6.1 % Normal [facility] Comment on above: Order Comment: Speci men Type: BLOOD SPECIMENOrdering Facility: [facility] Address: [address] [place] [address] Performed By: #### 5 7021-8, 24380-1 ####[facility]ORATORYCLIA [id number] [place] [address] [place] Monocytes (Bld) [#/Vol] 1.49 10*3/uL High <0.87 [facility] Comment on above: Order Comment: Speci men Type: BLOOD SPECIMENOrdering Facility: [facility] Address: [address] [place] [address] Performed By: #### 5 7021-8, 88804-6 ####[facility]ATORYCLIA [id number] [place] [address] [place] Monocytes/100 WBC (Bld) 6.4 % Normal [facility] Comment on above: Order Comment: Speci men Type: BLOOD SPECIMENOrdering Facility: [facility] Address: [address] [place] [address] Performed By: #### 5 7021-8, 13741-0 ####[facility]ATORYCLIA [id number] [place] [address] [place] Neutrophils (Bld) [#/Vol] 19.58 10*3/uL High 1.45-7.50 [facility] Comment on above: Order Comment: Speci men Type: BLOOD SPECIMENOrdering Facility: [facility] Address: [address] [place] [address] Performed By: #### 5 7021-8, 70304-6 ####[facility]ORATORYCLIA [id number] [place] [id number] [place] Neutrophils/100 WBC (Bld) 84.3 % Normal [facility] Comment on above: Order Comment: Speci men Type: BLOOD SPECIMENOrdering Facility: [facility] Address: [address] [place] [address] Performed By: #### 5 7021-8, 11509-1 ####[facility] LABORATORYCLIA [id number] [address] CBC panel Auto (Bld)on 01-06 Erythrocyte distribution width (RBC) [Ratio] 15.3 % High 11.5-15.0 [facility] Comment on above: Order Comment: Speci men Type: BLOOD SPECIMENOrdering Facility: [facility] Address: [address] [place] [address] Performed By: #### 5 8410-2 ####[facility] LABORATORYCLIA [id number] [address] Hematocrit (Bld) [Volume fraction] 38.6 % Normal 36.0-46.0 [facility] Comment on above: Order Comment: Speci men Type: BLOOD SPECIMENOrdering Facility: [facility] Address: [address] [place] [address] Performed By: #### 5 8410-2 ####[facility] LABORATORYCLIA [id number] [address] Hemoglobin (Bld) [Mass/Vol] 13.1 g/dL Normal 11.5-15.5 [facility] Comment on above: Order Comment: Speci men Type: BLOOD SPECIMENOrdering Facility: [facility] Address: [address] [place] [address] Performed By: #### 5 8410-2 ####[facility] LABORATORYCLIA [id number] [address] MCH (RBC) [Entitic mass] 29.2 pg Normal 26.0-34.0 [facility] Comment on above: Order Comment: Speci men Type: BLOOD SPECIMENOrdering Facility: [facility] Address: [address] [place] [address] Performed By: #### 5 8410-2 ####[facility] LABORATORYCLIA [id number] [address] OF [facility] MCHC (RBC) [Mass/Vol] 33.9 g/dL Normal 30.5-36.0 [facility] Comment on above: Order Comment: Speci men Type: BLOOD SPECIMENOrdering Facility: [facility] Address: [address] [place] [address] Performed By: #### 5 8410-2 ####[facility] LABORATORYCLIA [id number] [address] [place] MCV (RBC) [Entitic vol] 86.2 fL Normal 80.0-100.0 [facility] Comment on above: Order Comment: Speci men Type: BLOOD SPECIMENOrdering Facility: [facility] Address: [address] [place] [address] Performed By: #### 5 8410-2 ####[facility] LABORATORYCLIA [id number] [address] STATES OF [facility] Nucleated RBC (Bld) [#/Vol] 0.02 10*3/uL High <0.01 [facility] Comment on above: Order Comment: Speci men Type: BLOOD SPECIMENOrdering Facility: [facility] Address: [address] [place] [address] Performed By: #### 5 8410-2 ####[facility] LABORATORYCLIA [id number] [address] OF [facility] Platelet mean volume (Bld) [Entitic vol] 9.8 fL Normal 9.0-12.7 [facility] Comment on above: Order Comment: Speci men Type: BLOOD SPECIMENOrdering Facility: [facility] Address: [address] [place] [address] Performed By: #### 5 8410-2 ####[facility] LABORATORYCLIA [id number] [address] [place] Platelets (Bld) [#/Vol] 202 10*3/uL Normal 150-400 [facility] Comment on above: Order Comment: Speci men Type: BLOOD SPECIMENOrdering Facility: [facility] Address: [address] [place] [address] Performed By: #### 5 8410-2 ####[facility] LABORATORYCLIA [id number] [address] OF [facility] RBC (Bld) [#/Vol] 4.48 10*6/uL Normal 3.90-5.20 [facility] Comment on above: Order Comment: Speci men Type: BLOOD SPECIMENOrdering Facility: [facility] Address: [address] [place] [address] Performed By: #### 5 8410-2 ####[facility] LABORATORYCLIA [id number] [address] [place] WBC (Bld) [#/Vol] 29.29 10*3/uL High 3.70-11.00 [facility] Comment on above: Order Comment: Speci men Type: BLOOD SPECIMENOrdering Facility: [facility] Address: [address] [place] [address] Performed By: #### 5 8410-2 ####[facility] LABORATORYCLIA [id number] [address] OF [facility] Erythrocyte distribution width (RBC) [Ratio] 14.9 % Normal 11.5-15.0 [facility] Comment on above: Order Comment: Speci men Type: BLOOD SPECIMENOrdering Facility: [facility] Address: [address] [place] [address] Performed By: #### 5 8410-2 ####[facility] LABORATORYCLIA [id number] [address] Hematocrit (Bld) [Volume fraction] 31.9 % Low 36.0-46.0 [facility] Comment on above: Order Comment: Speci men Type: BLOOD SPECIMENOrdering Facility: [facility] Address: [address] [place] [address] Performed By: #### 5 8410-2 ####[facility] LABORATORYCLIA [id number] [address] [place] Hemoglobin (Bld) [Mass/Vol] 10.9 g/dL Low 11.5-15.5 [facility] Comment on above: Order Comment: Speci men Type: BLOOD SPECIMENOrdering Facility: [facility] Address: [address] [place] [address] Performed By: #### 5 8410-2 ####[facility] LABORATORYCLIA [id number] [address] OF [facility] MCH (RBC) [Entitic mass] 29.8 pg Normal 26.0-34.0 [facility] Comment on above: Order Comment: Speci men Type: BLOOD SPECIMENOrdering Facility: [facility] Address: [address] [place] [address] Performed By: #### 5 8410-2 ####[facility] LABORATORYCLIA [id number] [address] MCHC (RBC) [Mass/Vol] 34.2 g/dL Normal 30.5-36.0 [facility] Comment on above: Order Comment: Speci men Type: BLOOD SPECIMENOrdering Facility: [facility] Address: [address] [place] [address] Performed By: #### 5 8410-2 ####[facility] LABORATORYCLIA [id number] [address] MCV (RBC) [Entitic vol] 87.2 fL Normal 80.0-100.0 [facility] Comment on above: Order Comment: Speci men Type: BLOOD SPECIMENOrdering Facility: [facility] Address: [address] [place] [address] Performed By: #### 5 8410-2 ####[facility]ORATORYCLIA [id number] [address] Nucleated RBC (Bld) [#/Vol] 10*3/uL Normal <0.01 [facility] Comment on above: Order Comment: Speci men Type: BLOOD SPECIMENOrdering Facility: [facility] Address: [address] [place] [address] Performed By: #### 5 8410-2 ####[facility] LABORATORYCLIA [id number] [place] [address] [place] Platelet mean volume (Bld) [Entitic vol] 9.3 fL Normal 9.0-12.7 [facility] Comment on above: Order Comment: Speci men Type: BLOOD SPECIMENOrdering Facility: [facility] Address: [address] [place] [address] Performed By: #### 5 8410-2 ####[facility]ORATORYCLIA [id number] [place] [address] [place] Platelets (Bld) [#/Vol] 149 10*3/uL Low 150-400 [facility] Comment on above: Order Comment: Speci men Type: BLOOD SPECIMENOrdering Facility: [facility] Address: [address] [place] [address] Performed By: #### 5 8410-2 ####[facility]ORATORYCLIA [id number] [place] [address] [place] RBC (Bld) [#/Vol] 3.66 10*6/uL Low 3.90-5.20 [facility] Comment on above: Order Comment: Speci men Type: BLOOD SPECIMENOrdering Facility: [facility] Address: [address] [place] [address] Performed By: #### 5 8410-2 ####[facility]ORATORYCLIA [id number] [place] [address] [place] WBC (Bld) [#/Vol] 21.23 10*3/uL High 3.70-11.00 [facility] Comment on above: Order Comment: Speci men Type: BLOOD SPECIMENOrdering Facility: [facility] Address: [address] [place] [address] Performed By: #### 5 8410-2 ####[facility] LABORATORYCLIA [id number] [address] [place] Erythrocyte distribution width (RBC) [Ratio] 16.2 % High 11.5-15.0 [facility] Comment on above: Order Comment: Speci men Type: BLOOD SPECIMENOrdering Facility: [facility] Address: [address] [place] [address] Performed By: #### 5 7021-8, 47373-5 ####[facility]ORATORYCLIA [id number] [address] Hematocrit (Bld) [Volume fraction] 39.9 % Normal 36.0-46.0 [facility] Comment on above: Order Comment: Speci men Type: BLOOD SPECIMENOrdering Facility: [facility] Address: [address] [place] [address] Performed By: #### 5 7021-8, 13045-0 ####[facility]ORATORYCLIA [id number] [address] Hemoglobin (Bld) [Mass/Vol] 12.6 g/dL Normal 11.5-15.5 [facility] Comment on above: Order Comment: Speci men Type: BLOOD SPECIMENOrdering Facility: [facility] Address: [address] [place] [address] Performed By: #### 5 7021-8, 34785-3 ####[facility] LABORATORYCLIA [id number] [address] MCH (RBC) [Entitic mass] 28.7 pg Normal 26.0-34.0 [facility] Comment on above: Order Comment: Speci men Type: BLOOD SPECIMENOrdering Facility: [facility] Address: [address] [place] [address] Performed By: #### 5 7021-8, 83810-6 ####[facility] LABORATORYCLIA [id number] [address] MCV (RBC) [Entitic vol] 90.9 fL Normal 80.0-100.0 [facility] Comment on above: Order Comment: Speci men Type: BLOOD SPECIMENOrdering Facility: [facility] Address: [address] [place] [address] Performed By: #### 5 7021-8, 40596-4 ####[facility] LABORATORYCLIA [id number] [place] [address] [place] Nucleated RBC (Bld) [#/Vol] 10*3/uL Normal <0.01 [facility] Comment on above: Order Comment: Speci men Type: BLOOD SPECIMENOrdering Facility: [facility] Address: [address] [place] [address] Performed By: #### 5 7021-8, 88458-0 ####[facility] LABORATORYCLIA [id number] [place] [address] [place] Platelet mean volume (Bld) [Entitic vol] 9.3 fL Normal 9.0-12.7 [facility] Comment on above: Order Comment: Speci men Type: BLOOD SPECIMENOrdering Facility: [facility] Address: [address] [place] [address] Performed By: #### 5 7021-8, 09996-5 ####[facility] LABORATORYCLIA [id number] [address] [place] Platelets (Bld) [#/Vol] 234 10*3/uL Normal 150-400 [facility] Comment on above: Order Comment: Speci men Type: BLOOD SPECIMENOrdering Facility: [facility] Address: [address] [place] [address] Performed By: #### 5 7021-8, 94588-7 ####[facility] LABORATORYCLIA [id number] [place] [address] [place] RBC (Bld) [#/Vol] 4.39 10*6/uL Normal 3.90-5.20 [facility] Comment on above: Order Comment: Speci men Type: BLOOD SPECIMENOrdering Facility: [facility] Address: [address] [place] [address] Performed By: #### 5 7021-8, 51427-0 ####[facility] LABORATORYCLIA [id number] [place] [address] [place] WBC (Bld) [#/Vol] 23.23 10*3/uL High 3.70-11.00 [facility] Comment on above: Order Comment: Adelita austin Type: BLOOD SPECIMENOrdering Facility: [facility] Address: [address] [place] [address] Performed By: #### 5 7021-8, 62233-4 ####[facility] LABORATORYCLIA [id number] [address] OF [facility] CK SerPl-cCncon 01-06-2025 CK [Catalytic activity/Vol] 121 U/L Normal 42-196 [facility] Comment on above: Order Comment: Specbenjamin austin Type: BLOOD SPECIMENOrdering Facility: [facility] Address: [address] [place] [address] Performed By: #### 2 157-6 ####[facility] LABORATORYCLIA [id number] [address] CNCRITCRon 01-06-2025 CNCRITCR Critical Care Transport (CCT) MARY CRANE ([id number]) 1940 F TXT Date Time Provider Department 01/06/25 ESVIN RON CCT During your visit today, we recorded the following information about you: Esvin Ron APRN.EPOXY SPECIALIST 01/10/2025 8:46 PM Addendum [facility] CRITICAL CARE TRANSPORT NOTE Patient Name: Mary Crane : 1940 Service Date: January 06, 2025 Referring Facility: [facility] Accepting Facility: [facility] Referring Physician: Lydia Accepting Physician: Lizabeth SUBJECTIVE/CHIEF [...] HTN, RA, and CKD who presented to [place] ED s/p pre-hospital stroke alert. Per report, [...] managing the patient requested transfer to the [facility] for tertiary and/or quaternary trauma services unavailable at the referring facility. The physician managing the patient requested the [facility] Critical Care Transport Team transport and [...] The physician managing the patient requested the [facility] Critical Care Transport Team transport and treat the patient for the purpose of tertiary care, evaluation, and management of her traumatic condition(s). Air medical transport was requested to reduce the tnp-zo-nqelewxa time, 15 minutes by air vs. approximately 41 minutes by ground, with the potential for increased ground transport time secondary to: distance between facilities and the patient's condition requiring an emergent procedure or evaluation not available at the referring facility ROS: A complete review of systems was performed and is negative except as noted in DIOMEDE PAST MEDICAL HISTORY: PAST MEDICAL HISTORY Diagnosis [...] Smoking status (more content not included)... Normal [facility] CONSULTon 01-06-2025 CONSULT Normal [facility] CONSULT Normal [facility] CONSULT PROGon 01-06-2025 CONSULT PROG Normal [facility] CT ABD/PEL W IVCONon 025 CT ABD/PEL W IVCON Normal [facility] CT BRAIN WO IVCONon 01-07-20 CT BRAIN WO IVCON Normal [facility] CT CERVICAL SPINE WO IVCONon 01-06-2025 CT CERVICAL SPINE WO IVCON Normal [facility] CTA Chest W/WO Contraston CTA Chest W/WO Contrast [facility] Services [address] [place] [address] CTA Chest W/WO Contrast MR#: [id number] Acct: [id number] Name: MARY CRANE Rep #: [id number] : 1940 F 84 From: [place] MD PCP: Dr. Atul Harvey, Status: REG ER Study: CTA Chest W/WO Contrast Date of Exam: 01/06/25 Exam# [id number] Ordering Dr: Fredy Freeman DO PROCEDURE: CTA [...] 58 concerning for active bleeding. Reading Location: [id number] CC: Dr. Atul Harvey DO; Dr. Fredy Freeman, DO Medical Receptionist Biller: Signed Normal [facility] Calcium.ionized [Moles/Vol]o n 01-06-2025 Calcium.ionized (BldV) [Mass/Vol] 1.09 mmol/L Normal 1.08-1.30 [facility] Comment on above: Order Comment: Speci men Type: BLOOD SPECIMENOrdering Facility: [facility] Address: [address] [place] [address] Performed By: #### 1 995-0 ####[facility] LABORATORYCLIA [id number] [address] STATES OF [facility] Calcium.ionized adjusted to pH 7.4 (Bld) [Moles/Vol] 1.08 mmol/L Normal 1.08-1.30 [facility] Comment on above: Order Comment: Speci men Type: BLOOD SPECIMENOrdering Facility: [facility] Address: [address] [place] [address] Performed By: #### 1 995-0 ####[facility] LABORATORYCLIA [id number] [address] [place] Carbon dioxide, total [Moles /volume] in Central venous bloodOrdered By: Fredy Freeman on 01-06-2025 CO2 [Moles/Vol] 10.5 mmol/L Low 21.0-32.0 [facility] Chloride assayOrdered By: Seamus Freeman on 01-06-2025 Chloride [Moles/Vol] 97 mmol/L Low 98-108 [facility] Comment on above: Order Comment: Speci men Type: BLOOD SPECIMENOrdering Facility: [facility] Address: [address] [place] [address] Performed By: #### 3 040-3, 79586-0 ####[facility]ORATORYCLIA [id number] [place] [address] [place] Comprehensive metabolic 2000 panelon 01-06-2025 Albumin [Mass/Vol] 2.8 g/dL Low 3.9-4.9 [facility] Comment on above: Order Comment: Speci men Type: BLOOD SPECIMENOrdering Facility: [facility] Address: [facility] [place] [address] Performed By: #### 3 -3, 09542-7 ####[facility] LABORATORYCLIA [id number] [address] OF [facility] ALP [Catalytic activity/Vol] 92 U/L Normal 34-123 [facility] Comment on above: Order Comment: Speci men Type: BLOOD SPECIMENOrdering Facility: [facility] Address: [address] [place] [address] Performed By: #### 3 -3, ####[facility] LABORATORYCLIA [id number] [address] STATES OF [facility] ALT With P-5'-P [Catalytic activity/Vol] 19 U/L Normal 7-38 [facility] Comment on above: Order Comment: Speci men Type: BLOOD SPECIMENOrdering Facility: [facility] Address: [address] [place] [address] Performed By: #### 3 040-3, 53918-6 ####[facility] LABORATORYCLIA [id number] [address] OF [place] Anion gap [Moles/Vol] 17 mmol/L High 8-15 [facility] Comment on above: Order Comment: Speci men Type: BLOOD SPECIMENOrdering Facility: [facility] Address: [address] [place] [address] Performed By: #### 3 040-3, 44502-4 ####[facility] LABORATORYCLIA [id number] [address] [place] AST With P-5'-P [Catalytic activity/Vol] 26 U/L Normal 13-35 [facility] Comment on above: Order Comment: Speci men Type: BLOOD SPECIMENOrdering Facility: [facility] Address: [address] [place] [address] Performed By: #### 3 040-3, ####[facility]ORATORYCLIA [id number] [place] [address] [place] Bilirubin [Mass/Vol] 1.1 mg/dL Normal 0.2-1.3 [facility] Comment on above: Order Comment: Speci men Type: BLOOD SPECIMENOrdering Facility: [facility] Address: [address] [place] [address] Performed By: #### 3 040-3, ####[facility] LABORATORYCLIA [id number] [place] [address] [place] Calcium [Mass/Vol] 9.2 mg/dL Normal 8.5-10.2 [facility] Comment on above: Order Comment: Speci men Type: BLOOD SPECIMENOrdering Facility: [facility] Address: [address] [place] [address] Performed By: #### 3 0403, ####[facility] LABORATORYCLIA [id number] [address] CO2 [Moles/Vol] 19 mmol/L Low 22-30 [facility] Comment on above: Order Comment: Speci men Type: BLOOD SPECIMENOrdering Facility: [facility] Address: [address] [place] [address] Performed By: #### 3 3, ####[facility] LABORATORYCLIA [id number] [address] [place] Creatinine [Mass/Vol] 1.12 mg/dL High 0.58-0.96 [facility] Comment on above: Order Comment: Speci men Type: BLOOD SPECIMENOrdering Facility: [facility] Address: [address] [place] [address] Performed By: #### 3 040-3, ####[facility] LABORATORYCLIA [id number] [address] [place] Creatinine and Glomerular filtration rate.predicted panel (S/P/Bld) 48 mL/min/1.73m??? Low >=60 [facility] Comment on above: Order Comment: Adelita austin Type: BLOOD SPECIMENOrdering Facility: [facility] Address: [address] [place] [address] Result Comment: Ely mated Glomerular Filtration Rate [...] actual GFR. Performed By: #### 3 040-3, 65725-8 ####[facility] LABORATORYCLIA [id number] [place] [address] [place] Glucose [Mass/Vol] 234 mg/dL High 74-99 [facility] Comment on above: Order Comment: Adelita austin Type: BLOOD SPECIMENOrdering Facility: [facility] Address: [address] [place] [address] Result Comment: The [place] [employer] (ADA) provides guidance for cutoff [...] Standards of Medical Care in Diabetes 2016, [place] [employer]. Diabetes Care. 2016.39(Suppl 1). Performed By: #### 3 040-3, 28963-7 ####[facility] LABORATORYCLIA [id number] [place] [address] [place] Potassium [Moles/Vol] 4.1 mmol/L Normal 3.7-5.1 [facility] Comment on above: Order Comment: Adelita austin Type: BLOOD SPECIMENOrdering Facility: [facility] Address: [address] [place] [address] Performed By: #### 3 040-3, 02637-2 ####[facility]ORATORYCLIA [id number] [address] [place] Protein [Mass/Vol] 5.7 g/dL Low 6.3-8.0 [facility] Comment on above: Order Comment: Speci men Type: BLOOD SPECIMENOrdering Facility: [facility] Address: [address] [place] [address] Performed By: #### 3 040-3, 69330-1 ####[facility]ORATORYCLIA [id number] [address] [place] Sodium [Moles/Vol] 133 mmol/L Low 136-144 [facility] Comment on above: Order Comment: Speci men Type: BLOOD SPECIMENOrdering Facility: [facility] Address: [address] [place] [address] Performed By: #### 3 040-3, 27283-8 ####[facility]ORATORYCLIA [id number] [address] [place] Urea nitrogen [Mass/Vol] 13 mg/dL Normal 7-21 [facility] Comment on above: Order Comment: Speci men Type: BLOOD SPECIMENOrdering Facility: [facility] Address: [address] [place] [address] Performed By: #### 3 040-3, 04186-9 ####[facility]ORATORYCLIA [id number] [address] OF [place] ED NOTEon 01-06-2025 ED NOTE HNO ID: [id number] Author: ERICKA STILES RN Service: Emergency Medicine Author Type: Registered Nurse Type: ED Notes Filed: 01/06/2025 06:21 Note Text: Calcium gluconate continued at 100 ml/hr Normal [facility] ED NOTE HNO ID: [id number] Author: ERICKA STILES, JOSE Service: Emergency Medicine Author Type: Registered Nurse Type: ED Notes Filed: 01/06/2025 06:22 Note Text: OR notified Normal [facility] ED NOTE Normal [facility] ED NOTE HNO ID: [id number] Author: ERICKA STILES, JOSE Service: Emergency Medicine Author Type: Registered Nurse Type: ED Notes Filed: 01/06/2025 06:06 Note Text: Blood bank notified just type and cross for now Normal [facility] ED NOTE HNO ID: [id number] Author: ERICKA STILES RN Service: Emergency Medicine Author Type: Registered Nurse Type: ED Notes Filed: 01/06/2025 06:11 Note Text: Pt to CT with nurse and residents at this time on registered nurse cardiac, pulse ox and bp cuff Normal [facility] ED NOTE HNO ID: [id number] Author: ERICKA STILES, JOSE Service: Emergency Medicine Author Type: Registered Nurse Type: ED Notes Filed: 01/06/2025 05:55 Note Text: C-spine tenderness, aspen placed at this time Normal [facility] ED PROV NOTEon 01-06-2025 ED PROV NOTE Normal [facility] Emergency Department Summary on 01-06-2025 Emergency Department Summary [facility] Medical Records Department [address] [place] [address] Emergency Department Summary 01/06/25 MR#: [id number] Acct: [id number] Name: MARY CRANE Rep #: [id number] : 1940 84 From: Fredy Freeman DO [...] concerning for active extravasation with active bleeding. Waldo collection seen in the lateral spleen measuring [...] therefore they called a stroke alert prehospital. [facility] Medical History Atrial fibrillation Irregular heart beat [...] DAILY supplement 10/13/24 Unknown History mg-copper 1 od-ydvysh-nijcyj capsule (PreserVision AREDS-2) acetaminophen 325 mg tablet [...] Allergy Rodrigo (more content not included)... Normal [facility] Eosinophil percentageOrdered By: Fredy Freeman on 01-06-2025 Eosinophils/100 WBC (Bld) 0.3 % 0-5 [facility] Erythrocyte distribution wid th ratioOrdered By: Fredy Freeman on 01-06-2025 Erythrocyte distribution width (RBC) [Ratio] 14.7 % High 11.6-14.6 [facility] Erythrocyte distribution wid th standard deviationOrdered By: Fredy Freeman on 01-06-2025 Erythrocyte distribution width (RBC) [Entitic vol] 50.6 fL High 35.1-43.9 [facility] Erythrocyte distribution width (RBC) [Ratio] 50.6 fl High 35.1-43.9 [facility] Estimation of creatinine cassie aranceOrdered By: Fredy Freeman on 01-06-2025 Estimated Creatinine Clearance Calc 34.48 ml/min Low 50-250 [facility] Ethanol SerPl-mCncon 025 Ethanol [Mass/Vol] mg/dL Normal <11 [facility] Comment on above: Order Comment: Speci men Type: BLOOD SPECIMENOrdering Facility: [facility] Address: [address] [place] [address] Performed By: #### 5 643-2 ####[facility] LABORATORYCLIA [id number] [address] OF [facility] Ethanol [Mass/Vol] mg/dL Normal <11 [facility] Comment on above: Order Comment: Speci men Type: BLOOD SPECIMENOrdering Facility: [facility] Address: [address] [place] [address] Performed By: #### 5 643-2 ####[facility] LABORATORYCLIA [id number] [address] OF [facility] GFR/1.73 sq M.predicted honorio g non-blacks MDRD (S/P/Bld) [Vol rate/Area]Ordered By: Fredy Freeman on 01-06-2025 Estimated GFR (MDRD) Non-Af Amer 48 Low >60 [facility] Comment on above: mL/min/1.73m2 CKD-EP I Creatinine Equation (2020) Glomerular filtration rate ( GFR) estimation/1.73 sq m using serum, plasma, or whole bOrdered By: Fredy Freeman on 01-06-2025 GFR/1.73 sq M.predicted among non-blacks MDRD (S/P/Bld) [Vol rate/Area] 48 mL/min/{1.73_m2} Low >60 [facility] Comment on above: mL/min/1.73m2 CKD-EP I Creatinine Equation (2020) HISTORY PHYSICALon HISTORY PHYSICAL Normal [facility] Hematocrit Auto (Bld) [Volum e fraction]Ordered By: Fredy Freeman on 01-06-2025 Hematocrit (Bld) [Volume fraction] 15.8 % Low 37-47 [facility] Hemoglobin measurementOrdere d By: Fredy Freeman on 01-06-2025 Hemoglobin (Bld) [Mass/Vol] 5.0 g/dL Low 12.0-15.0 [facility] Comment on above: CRITICAL VALUE ALFORD D TO [id number]/28/25 0432 Vidhi Bloom.RESULTS READ BACK BY SAME. Immature granulocytes/100 WB C Auto (Bld)Ordered By: Fredy Freeman on 01-06-2025 Immature granulocytes/100 WBC (Bld) 2.800 % High 0.0-0.9 [facility] Comment on above: IG% - Immature Granu locytes (promyelocytes, myelocytes and metamyelocytes) > 1% indicates that a LEFT SHIFT is Present. International normalized rat io (INR) calculationOrdered By: Fredy Freeman on 01-06-2025 INR Coag (Bld) [Relative time] 2.1 {INR} [facility] L499.0042on 01-06-2025 Trop T High Sen Normal <=14 [facility] Comment on above: Result Comment: Canc elled via OM: Order cancelled - Patient discharged Performed By: #### L 100.0100, L500.4050 #### [facility] Laboratory [address] [place], [address] L499.0043on 01-06-2025 Trop T High Sen Normal <=14 [facility] Comment on above: Result Comment: Canc elled via OM: Order cancelled - Patient discharged Performed By: #### L 100.0100, L500.4050 #### [facility] [address] [place], [address] L501.4021on 01-06-2025 Trop T High Sen 15 ng/L High <=14 [facility] Comment on above: Performed By: #### L 100.0100, L500.4050 #### [facility] [address] [place], [address] Lipase SerPl-cCncon 01-07-20 25 Lipase [Catalytic activity/Vol] 32 U/L Normal 16-61 [facility] Comment on above: Order Comment: Speci men Type: BLOOD SPECIMENOrdering Facility: [facility] Address: [address] [place] [address] Performed By: #### 3 040-3, 26122-9 ####[facility] LABORATORYCLIA [id number] [place] [address] [place] Lymphocytes Auto (Unsp spec) [#/Vol]Ordered By: Fredy Freeman on 01-06-2025 Lymphocytes (Bld) [#/Vol] 1.81 10*3/uL 0.83-4.51 [facility] Lymphocytes/100 WBC Auto (Un sp spec)Ordered By: Fredy Freeman on 01-06-2025 Lymphocytes/100 WBC (Bld) 13.8 % Low 19-41 [facility] MCV (mean corpuscular volume ) determinationOrdered By: Fredy Freeman on 01-06-2025 MCV (RBC) [Entitic vol] 95.2 fL 81-99 [facility] MRI BRAIN WO/W IVCONon 01-06 MRI BRAIN WO/W IVCON Normal [facility] Magnesium SerPl-mCncon 01-06 Magnesium [Mass/Vol] 1.4 mg/dL Low 1.7-2.3 [facility] Comment on above: Order Comment: Speci men Type: BLOOD SPECIMENOrdering Facility: [facility] Address: [address] [place] [id number] Performed By: #### 1 9123-9, 2777-1, 52573-9 ####[facility] LABORATORYCLIA [id number] [address] [place] Mean corpuscular hemoglobin (MCH) determinationOrdered By: Fredy Freeman on 01-06-2025 MCH (RBC) [Entitic mass] 30.1 pg 27.0-32.0 [facility] Mean corpuscular hemoglobin concentration (MCHC) determinationOrdered By: Fredy Freeman on 01-06-2025 MCHC (RBC) [Mass/Vol] 31.6 g/dL Low 32-36 [facility] Comment on above: Order Comment: Speci men Type: BLOOD SPECIMENOrdering Facility: [facility] Address: [address] [place] [address] Performed By: #### 5 7021-8, 68122-9 ####[facility] LABORATORYCLIA [id number] [place], [place] [id number] [place] [address] OF [facility] Mean platelet volume determi nationOrdered By: Fredy Freeman on 01-06-2025 Platelet mean volume (Bld) [Entitic vol] 10.7 fL 6.2-12.0 [facility] Monocyte percentageOrdered B y: Fredy Freeman on 01-06-2025 Monocytes/100 WBC (Bld) 6.3 % 0-10 [facility] Neutrophil percentageOrdered By: Fredy Freeman on 01-06-2025 Neutrophils/100 WBC (Bld) 76.5 % High 47-70 [facility] No Panel InformationOrdered By: Fredy Freeman on 01-06-2025 Troponin T High Sensitivity 15 ng/L High <14 [facility] Nucleated red blood cell per centageOrdered By: Fredy Freeman on 01-06-2025 Nucleated RBC/100 WBC (Bld) [Ratio] 0 % 0-5 [facility] OPERATIVE NOon 01-06-2025 OPERATIVE NO Normal [facility] PT panel Coag (PPP)on 2024 INR Coag (PPP) [Relative time] 1.1 {INR} Normal 0.9-1.3 [facility] Comment on above: Order Comment: Speci men Type: BLOOD SPECIMENOrdering Facility: [facility] Address: [address] [place] [address] Result Comment: Jessie min K Antagonist (VKA) Therapeutic Range: INR 2 to 3 (Target INR of 2.5)Note: For patients treated with VKA drugs, such as warfarin, the [place] [employer] 2012 Guideline recommends [...] al. Chest 2012, 141:7S-47SNishimura RA, et al. [facility] 2017, 70: 252-289 Performed By: #### 3 4528-0, 15905-5 ####[facility] LABORATORYCLIA [id number] [place] [address] [place] PT Coag (PPP) [Time] 12.3 s Normal 9.7-13.0 [facility] Comment on above: Order Comment: Speci men Type: BLOOD SPECIMENOrdering Facility: [facility] Address: [address] [place] [address] Performed By: #### 3 4528-0, 96185-6 ####[facility] LABORATORYCLIA [id number] [place] [address] [place] Pathologist review Cholo (Unsp spec) [Interp]Ordered By: Fredy Freeman on 01-06-2025 Differential Pathologist's Review May [facility] Pathology biopsy report Cholo (Tiss)on 01-06-2025 AP DISCLAIMER Normal [facility] Comment on above: Order Comment: Speci men Type: TISSUE SPECIMENOrdering Facility: [facility] Address: [address] [place] [address] Result Comment: Armand moctezuma Developed Test (LDT) Disclaimer:Performance characteristics of immunohistochemical, immunofluorescent, and chromogenic in-situ hybridization tests have been determined by the performing laboratory within [facility] ([facility], [facility], [facility], [facility], [facility], [facility], or [facility]) in a manner consistent with CLIA requirements. One or more of these tests may not have been cleared or approved by the FDA. [facility] is regulated under CLIA as qualified to perform high-complexity testing. These tests are used for clinical purposes. These should not be regarded as investigational or for research. Positive and negative controls stain appropriately. Performed By: #### 6 6121-5 ####[facility] LABORATORYCLIA [id number] [address] CASE REPORT Normal [facility] Comment on above: Order Comment: Speci men Type: TISSUE SPECIMENOrdering Facility: [facility] Address: [address] [place] [address] Result Comment: Surg ica Pathology Report Case: [id number] Provider: Leonel Small MD Collected: 01/06/2025 07:23 AMOrdering Location: [place] [facility] [place] Received: 01/06/2025 10:28 AMPathologist: Carole Kirk MDSpecimen: Spleen Performed By: #### 6 6121-5 ####[facility] LABORATORYCLIA [id number] [address] CLINICAL HISTORY Normal [facility] Comment on above: Order Comment: Adelita austin Type: TISSUE SPECIMENOrdering Facility: [facility] Address: [address] [place] [address] Result Comment: Pre- op diagnosis:Hemoperitoneum [K66.1]Laceration of spleen, initial encounter [S36.039A] Performed By: #### 6 6121-5 ####[facility] LABORATORYCLIA [id number] [address] FINAL DIAGNOSIS Normal [facility] Comment on above: Order Comment: Javadi geovanna Type: TISSUE SPECIMENOrdering Facility: [facility] Address: [address] [place] [address] Result Comment: Jailene Thorpe pletarun, splenectomy:- Fragments of splenic parenchyma and blood clot with focal features suggestive of capsular disruption; clinically, splenic laceration. at 1257 EDT Performed By: #### 6 6121-5 ####[facility] LABORATORYCLIA [id number] [address] FINAL PERFORMING LAB Normal [facility] Comment on above: Order Comment: Speci men Type: TISSUE SPECIMENOrdering Facility: [facility] Address: [address] [place] [address] Result Comment: Diag nostic interpretation performed at: [facility], [address] [place] [address] CLIA# [id number] Director: Doug Hernandez MD Performed By: #### 6 6121-5 ####[facility] LABORATORYCLIA [id number] [address] GROSS DESCRIPTION A. Spleen Normal [facility] Comment on above: Order Comment: Speci men Type: TISSUE SPECIMENOrdering Facility: [facility] Address: [address] [place] [address] Result Comment: Spl een are multiple fragments of a spleen weighing 173.6 g and aggregating to 10 x 9 x 4 cm. The capsular surface is red and dull. Sectioning reveals red spongy cut surfaces with no nodularity identified. Painting And Coating Worker sections are submitted in A1-A2. Gross examination performed at [facility], [address] [place] [address] CLIA#[id number] January 06, 2025 12:32 PM Performed By: #### 6 6121-5 ####[facility] LABORATORYCLIA [id number] [address] [place] Phosphate SerPl-mCncon 01-06 Phosphate [Mass/Vol] 5.6 mg/dL High 2.7-4.8 [facility] Comment on above: Order Comment: Speci men Type: BLOOD SPECIMENOrdering Facility: [facility] Address: [address] [place] [address] Performed By: #### 1 9123-9, 2777-1, 44125-0 ####[facility] LABORATORYCLIA [id number] [address] Platelet countOrdered By: Seamus Freeman on 01-06-2025 Platelets (Bld) [#/Vol] 170 10*3/uL 150-450 [facility] Potassium measurement (mass/ volume)Ordered By: Fredy Freeman on 01-06-2025 Potassium [Moles/Vol] 3.4 mmol/L Low 3.7-5.1 [facility] Comment on above: Order Comment: Speci men Type: ARTERIAL BLOOD SPECIMENOrdering Facility: [facility] Address: [address] [place] [address] Performed By: #### A LLBG ####[facility] LABORATORYCLIA [id number] [address] Order Comment: Speci men Type: BLOOD SPECIMENOrdering Facility: [facility] Address: [address] [place] [address] Performed By: #### 1 9123-9, 2777-1, 90343-3 ####[facility] LABORATORYCLIA [id number] [address] STATES [facility] Potassium (Unsp spec) [Mass/Vol] 3.4 mmol/L 3.3-5.1 [facility] Prothrombin Time w/INRon INR Coag (PPP) [Relative time] 2.1 {INR} Normal [facility] Comment on above: Performed By: #### L 501.4020 #### [facility] Laboratory [address] [place], [place], [address] Prothrombin timeOrdered By: Fredy Freeman on 01-06-2025 PT Coag (PPP) [Time] 23.6 s High 11.7-14.9 [facility] Comment on above: Performed By: #### L 501.4020 #### [facility] [address] [place], [address] RBC Auto (Bld) [#/Vol]Ordere d By: Fredy Freeman on 01-06-2025 RBC (Bld) [#/Vol] 1.66 10*6/uL Low 4.2-5.4 [facility] Review by pathologistOrdered By: Fredy Freeman on 01-06-2025 Pathologist review Cholo (Unsp spec) [Interp] Reviewed [facility] Comment on above: Previous reported re sult: Swetha lino Edited by: FRED on 01/26/25:1408SEE REPORT IN PATIENT'S EMR AMENDED REPORT 01/26/25 1408 PATH REV previously reported as: Swetha lino STAPHYLOCOCCUS AUREUS AND MR SA SCREEN, PCR, NASALon 01-06-2025 S. aureus and MRSA panel MEL+probe (Nose) Not detected Normal Not Detected [facility] Comment on above: Order Comment: Speci men Type: SWABOrdering Facility: [facility] Address: [address] [place] [address] Performed By: #### S APCR ####[facility] LABORATORYCLIA [id number] [address] OF [place] S. aureus and MRSA panel MEL+probe (Nose) Not detected Normal Not Detected [facility] Comment on above: Order Comment: Speci men Type: SWABOrdering Facility: [facility] Address: [address] [place] [address] Performed By: #### S APCR ####[facility] LABORATORYCLIA [id number] [address] [place] STROKE Brain/Head without Co nton 01-06-2025 STROKE Brain/Head without Cont [facility] Imaging Services [address] [place], [place] [id number] STROKE Brain/Head without Cont MR#: [id number] Acct: [id number] Name: MARY CRANE Rep #: [id number] : 1940 F 84 From: Von Sherwood MD PCP: Dr. Atul Harvey, Status: REG ER Study: STROKE Brain/Head without Cont Date of Exam: 0 01/06/25 Exam# [id number] Ordering Dr: Fredy Freeman DO PROCEDURE: STROKE [...] Freeman at 4 a.m. 01/06/2025 Reading Location: [id number] CC: Dr. Atul Harvey DO; Dr. Fredy Freeman DO Medical Receptionist Biller: Signed Normal [facility] STROKE CTA Head AND Neck W/C onon 01-06-2025 STROKE CTA Head AND Neck W/Con [facility] Imaging Services [address] [place] [address] STROKE CTA Head AND Neck W/Con MR#: [id number] Acct: [id number] Name: MARY CRANE Rep #: [id number] : 1940 F 84 From: Von Sherwood MD PCP: Dr. Atul Harvey DO Status: REG ER Study: STROKE CTA Head AND Neck W/Con Date of Exam: 0 01/06/25 Exam# [id number] Ordering Dr: Fredy Freeman DO PROCEDURE: STROKE [...] filling aneurysm identified as above. Reading Location: [id number] CC: Dr. Atul Harvey, DO; Dr. Fredy Freeman, DO Medical Receptionist Biller: Signed Normal [facility] Serum creatinine measurement (mass/volume)Ordered By: Fredy Freeman on 01-06-2025 Creatinine [Mass/Vol] 1.13 mg/dL 0.70-1.20 [facility] Serum glucose measurement (m ass/volume)Ordered By: Fredy Freeman on 01-06-2025 Glucose [Mass/Vol] 218 mg/dL High 70-99 [facility] Serum or plasma calcium shell urement (mass/volume)Ordered By: Fredy Freeman on 01-06-2025 Calcium [Mass/Vol] 6.8 mg/dL Low 7.6-11.0 [facility] Comment on above: Performed By: #### L 501.4020 #### [facility] [address] [facility] [place], [address] Serum or plasma urea nitroge n measurement (mass/volume)Ordered By: Fredy Freeman on 01-06-2025 Urea nitrogen [Mass/Vol] 12 mg/dL 4-19 [facility] Sodium levelOrdered By: Zully Freeman on 01-06-2025 Sodium [Moles/Vol] 127 mmol/L Low 133-145 [facility] TEG WITH HEPARIN NEUTRALIZAT IONon 01-06-2025 CITRATED FUNCTIONAL FIBRINOGEN W HAPARINASE MAXIMUM AMPLITUDE 26.1 mm Normal 15-34 [facility] Comment on above: Order Comment: Speci men Type: BLOOD SPECIMENOrdering Facility: [facility] Address: [address] [place] [address] Performed By: #### T EGHN ####[facility] LABORATORYCLIA [id number] [place] [address] [place] CITRATED KAOLIN W HEPARINASE CLOT LYSIS AT 30 MINS 0.0 % Normal 0.0-3.2 [facility] Comment on above: Order Comment: Speci men Type: BLOOD SPECIMENOrdering Facility: [facility] Address: [address] [place] [address] Performed By: #### T EGHN ####[facility] LABORATORYCLIA [id number] [address] OF [facility] CITRATED RAPID TEG W HEPARINASE MAXIMUM AMPLITUDE 62.5 mm Normal 53-69 [facility] Comment on above: Order Comment: Speci men Type: BLOOD SPECIMENOrdering Facility: [facility] Address: [address] [place] [address] Performed By: #### T EGHN ####[facility] LABORATORYCLIA [id number] [address] OF [place] Clotting time after addition of heparinase TEG (Bld) 6.6 minutes Normal 4.3-8.3 [facility] Comment on above: Order Comment: Speci men Type: BLOOD SPECIMENOrdering Facility: [facility] Address: [address] [place] [address] Performed By: #### T EGHN ####[facility] LABORATORYCLIA [id number] [address] Clotting time.extrinsic coagulation system activated Rotational TEG (Bld) 6.9 minutes Normal 4.6-9.1 [facility] Comment on above: Order Comment: Speci men Type: BLOOD SPECIMENOrdering Facility: [facility] Address: [address] [place] [address] Performed By: #### T EGHN ####[facility] LABORATORYCLIA [id number] [address] OF [place] Maximum clot firmness TEG (Bld) [Length] 60.6 mm Normal 52.0-69.0 [facility] Comment on above: Order Comment: Speci men Type: BLOOD SPECIMENOrdering Facility: [facility] Address: [address] [place] [address] Performed By: #### T EGHN ####[facility] LABORATORYCLIA [id number] [address] [place] THROMBOGRAPH INTERP Normal [facility] Comment on above: Order Comment: Speci men Type: BLOOD SPECIMENOrdering Facility: [facility] Address: [address] [place] [address] Result Comment: A th romboelastograph (TEG) study [...] timely manner. Performed By: #### T EGHN ####[facility] LABORATORYCLIA [id number] [address] [place] TOXICOLOGY SCREEN, ROUTINE U RINEon 01-06-2025 Amphetamines Confirm (U) [Mass/Vol] Negative Normal Negative [facility] Comment on above: Order Comment: Speci men Type: URINE SPECIMENOrdering Facility: [facility] Address: [address] [place] [address] Result Comment: Cuto ff threshold at 1000 ng/mL. Performed By: #### U TOX2 ####[facility] LABORATORYCLIA [id number] [place] [address] [place] BARBITURATES, URINE Negative Normal Negative [facility] Comment on above: Order Comment: Speci men Type: URINE SPECIMENOrdering Facility: [facility] Address: [address] [place] [address] Result Comment: Cuto ff threshold at 200 ng/mL. Performed By: #### U TOX2 ####[facility] LABORATORYCLIA [id number] [place] [address] [place] BENZODIAZEPINES, UR Negative Normal Negative [facility] Comment on above: Order Comment: Speci men Type: URINE SPECIMENOrdering Facility: [facility] Address: [address] [place] [address] Result Comment: Cuto ff threshold at 200 ng/mL. Performed By: #### U TOX2 ####[facility]ATORYCLIA [id number] [address] OF [facility] Cannabinoids Screen Ql (U) Negative Normal Negative [facility] Comment on above: Order Comment: Speci men Type: URINE SPECIMENOrdering Facility: [facility] Address: [address] [place] [address] Result Comment: Cuto ff threshold at 50 ng/mL. Performed By: #### U TOX2 ####[facility]ORATORYCLIA [id number] [address] Cocaine Ql (U) Negative Normal Negative [facility] Comment on above: Order Comment: Speci men Type: URINE SPECIMENOrdering Facility: [facility] Address: [address] [place] [address] Result Comment: Cuto ff threshold at 300 ng/mL. Performed By: #### U TOX2 ####[facility] LABORATORYCLIA [id number] [address] [place] Ethanol (U) [Mass/Vol] <11 Normal <11 [facility] Comment on above: Order Comment: Speci men Type: URINE SPECIMENOrdering Facility: [facility] Address: [address] [place] [address] Performed By: #### U TOX2 ####[facility]ORATORYCLIA [id number] [address] OF [facility] Opiates Screen Ql (U) Negative Normal Negative [facility] Comment on above: Order Comment: Speci men Type: URINE SPECIMENOrdering Facility: [facility] Address: [address] [place] [address] Result Comment: Cuto ff threshold at 300 ng/mL. Performed By: #### U TOX2 ####[facility]ORATORYCLIA [id number] [address] [place] oxyCODONE cutoff Screen (U) [Mass/Vol] Negative Normal Negative [facility] Comment on above: Order Comment: Speci men Type: URINE SPECIMENOrdering Facility: [facility] Address: [address] [place] [address] Result Comment: Cuto ff threshold at 100 ng/mL. Performed By: #### U TOX2 ####[facility] LABORATORYCLIA [id number] [address] Phencyclidine Ql (U) Negative Normal Negative [facility] Comment on above: Order Comment: Speci men Type: URINE SPECIMENOrdering Facility: [facility] Address: [address] [place] [address] Result Comment: Cuto ff threshold at 25 ng/mL. Performed By: #### U TOX2 ####[facility] LABORATORYCLIA [id number] [address] TYPE + SCREENon 01-06-2025 ABO O Normal [facility] Comment on above: Order Comment: Speci men Type: BLOOD SPECIMENOrdering Facility: [facility] Address: [address] [place] [address] Performed By: #### T SCR ####[facility] BLOOD BANKCLIA [id number] [address] OF [place] Rh Nom (Bld) Positive Normal [facility] Comment on above: Order Comment: Speci men Type: BLOOD SPECIMENOrdering Facility: [facility] Address: [address] [place] [address] Performed By: #### T SCR ####[facility] BLOOD BANKCLIA [id number] [address] TYPE AND SCREEN EXPIRATION 01/09/2025 23:59 Normal [facility] Comment on above: Order Comment: Speci men Type: BLOOD SPECIMENOrdering Facility: [facility] Address: [address] [place] [address] Performed By: #### T SCR ####[facility] BLOOD BANKCLIA [id number] [address] [place] Type AND Screenon 01-06-2025 Ab SCREEN GEL Negative Normal [facility] Comment on above: Order Comment: Comme nts: SPECIMEN #3 'TROP' Serial specimen #1, #2 or #3: 3 Performed By: #### L 501.4020 #### [facility] [address] [place], [place], [address] ABO and Rh group Nom (Bld) Blood group O Rh(D) positive Normal [facility] Comment on above: Order Comment: Comme nts: SPECIMEN #3 'TROP' Serial specimen #1, #2 or #3: 3 Performed By: #### L 501.4020 #### [facility] [address] [place], [place], [address] Urinalysis complete panel (U )on 01-06-2025 Bilirubin Ql (U) Negative Normal Negative [facility] Comment on above: Order Comment: Speci men Type: URINE SPECIMENOrdering Facility: [facility] Address: [address] [place] [address] Performed By: #### 2 4356-8 ####[facility] LABORATORYCLIA [id number] [address] Clarity (Unsp spec) Clear Normal Clear [facility] Comment on above: Order Comment: Speci men Type: URINE SPECIMENOrdering Facility: [facility] Address: [address] [place] [address] Performed By: #### 2 4356-8 ####[facility] LABORATORYCLIA [id number] [address] OF [place] Color (U) Light Yellow Normal yellow [facility] Comment on above: Order Comment: Speci men Type: URINE SPECIMENOrdering Facility: [facility] Address: [facility] [place] [address] Performed By: #### 2 4356-8 ####[facility] LABORATORYCLIA [id number] [address] Epithelial cells LM.HPF (Urine sed) [#/Area] Few Abnormal None Seen [facility] Comment on above: Order Comment: Speci men Type: URINE SPECIMENOrdering Facility: [facility] Address: [address] [place] [address] Performed By: #### 2 4356-8 ####[facility] LABORATORYCLIA [id number] [address] OF [place] Glucose Test strip (U) [Mass/Vol] Negative Normal Trace, Negative [facility] Comment on above: Order Comment: Speci men Type: URINE SPECIMENOrdering Facility: [facility] Address: [address] [place] [address] Performed By: #### 2 4356-8 ####[facility] LABORATORYCLIA [id number] [address] [place] Hemoglobin Ql (U) Negative Normal Negative, Trace [facility] Comment on above: Order Comment: Speci men Type: URINE SPECIMENOrdering Facility: [facility] Address: [address] [place] [address] Performed By: #### 2 4356-8 ####[facility] LABORATORYCLIA [id number] [address] STATES [facility] Ketones Ql (U) Negative Normal Negative, Trace [facility] Comment on above: Order Comment: Speci men Type: URINE SPECIMENOrdering Facility: [facility] Address: [address] [place] [address] Performed By: #### 2 4356-8 ####[facility]ATORYCLIA [id number] [address] Leukocyte esterase Test strip Ql (U) Negative Normal Negative, 25 Nelly/uL [facility] Comment on above: Order Comment: Speci men Type: URINE SPECIMENOrdering Facility: [facility] Address: [address] [place] [address] Performed By: #### 2 4356-8 ####[facility]ORATORYCLIA [id number] [place] [address] [place] Nitrite Ql (U) Negative Normal Negative [facility] Comment on above: Order Comment: Speci men Type: URINE SPECIMENOrdering Facility: [facility] Address: [address] [place] [address] Performed By: #### 2 4356-8 ####[facility] LABORATORYCLIA [id number] [place] [id number] [place] pH (U) 6.5 [pH] Normal 5.0-8.0 [facility] Comment on above: Order Comment: Speci men Type: URINE SPECIMENOrdering Facility: [facility] Address: [address] [place] [address] Performed By: #### 2 4356-8 ####[facility] LABORATORYCLIA [id number] [place] [address] [place] Protein (U) [Mass/Vol] Negative Normal Trace , Negative [facility] Comment on above: Order Comment: Speci men Type: URINE SPECIMENOrdering Facility: [facility] Address: [address] [place] [address] Performed By: #### 2 4356-8 ####[facility]REMENCLIA [id number] [place] [address] [place] [facility] RBC LM.HPF (Urine sed) [#/Area] 3-5 /HPF Abnormal 0-3 /HPF [facility] Comment on above: Order Comment: Speci men Type: URINE SPECIMENOrdering Facility: [facility] Address: [address] [place] [address] Performed By: #### 2 4356-8 ####[facility] LABORATORYCLIA [id number] [place] [id number] [place] Specific gravity (U) [Rel density] >1.040 High 1.005-1.030 [facility] Comment on above: Order Comment: Speci men Type: URINE SPECIMENOrdering Facility: [facility] Address: [address] [place] [address] Performed By: #### 2 4356-8 ####[facility] LABORATORYCLIA [id number] [address] [place] Urobilinogen Ql (U) Normal Normal Normal [facility] Comment on above: Order Comment: Speci men Type: URINE SPECIMENOrdering Facility: [facility] Address: [address] [place] [address] Performed By: #### 2 4356-8 ####[facility] LABORATORYCLIA [id number] [place] [address] [place] WBC LM.HPF (Urine sed) [#/Area] 0-5 /HPF Normal 0-5 /HPF [facility] Comment on above: Order Comment: Speci men Type: URINE SPECIMENOrdering Facility: [facility] Address: [address] [place] [address] [place] [address] Performed By: #### 2 4356-8 ####[facility] LABORATORYCLIA [id number] [address] [place] White blood cell (WBC) count Ordered By: Fredy Freeman on 01-06-2025 WBC (Bld) [#/Vol] 13.1 10*3/uL High 4.4-11.0 [facility] XR CHEST 1V FRONTALon 2024 XR CHEST 1V FRONTAL Normal [facility] aPTT PPPon 01-06-2025 aPTT Coag (PPP) [Time] 30.[address] 23.0-32.4 [facility] Comment on above: Order Comment: Speci men Type: BLOOD SPECIMENOrdering Facility: [facility] Address: [address] [place] [address] Performed By: #### 3 4528-0, 26284-2 ####[facility] LABORATORYCLIA [id number] [address] [place] CNPNon 12-27-2024 CNPN Telephone (FAMPWS) MARY [id number]) 1940 F TXT Date Time Provider Department 12/27/24 ATUL HARVEY During your visit today, we recorded the following information about you: Nancy Mccann, JOSE 12/27/2024 4:03 PM Signed Nathaly with [facility] calling with 2 items regarding patient. Patient has been ordered furosemide but has a listed allergy to Bumex. Asking if pt may take the furosemide. Patient is taking OTC Mucinex and this is not on their medication list. Wanted provider to know this. Please call Nathaly back with provider's response, JOSE Harrington Rebekah, APRN.EPOXY SPECIALIST 12/28/2024 12:44 PM Signed Has she been on the Lasix and tolerated it in the past? 2. Noted. Catalina Jauregui APRN.Ellen Hicks LPN 12/28/2024 2:23 PM Signed Called and spoke with [facility] she will call pt and let us know. Lori Chino RN 01/12/2025 10:12 AM Signed It appears no return call and currently looks like pt is an inpatient at [facility] with recent surgery. Catalina Jauregui APRN.EPOXY SPECIALIST 01/12/2025 10:24 AM Signed Noted, thank you. Catalina Jauregui APRN.EPOXY SPECIALIST Allergies As of Date: 12/27/2024 Noted Allergy [...] lispro inje (more content not included)... Normal [facility] ([id number]) 1940 F TXT Date Time Provider Department [facility]/02[facility] During [facility] visit today, we recorded [...] a triage nurse regarding provider instructions. JOSE [place] Laurie Lynn, LPN 12/07/2024 12:05 PM Signed [...] SYNDROME [G56.00] (more content not included)... Normal [facility] Absolute lymphocyte countOrd ered By: Kimmie Hussein on 11-21-2024 Lymphocytes Auto (Unsp spec) [#/Vol] 2.99 10*3/uL 0.83-4.51 [facility] Absolute neutrophil countOrd ered By: Kimmie Hussein on 11-21-2024 Neutrophils (Bld) [#/Vol] 5.5 10*3/uL 2.0-7.7 [facility] Albumin to globulin ratioOrd ered By: Kimmie Hussein on 11-21-2024 Albumin/Globulin [Mass ratio] 0.6 {ratio} Low 0.9-2.4 [facility] Automated lymphocyte count a s percentage of total leukocytesOrdered By: Kimmie Hussein on 11-21-2024 Lymphocytes/100 WBC Auto (Unsp spec) 31.1 % 19-41 [facility] Basophil percentageOrdered B y: Kimmie Hussein on 11-21-2024 Basophils/100 WBC (Bld) 0.8 % 0-1 [facility] Bilirubin, totalOrdered By: Kimmie Hussein on 11-21-2024 Bilirubin [Mass/Vol] 0.80 mg/dL 0.20-1.00 [facility] Comment on above: For patients on eltr ombopag therapy, use of Dimension [place] TBIL is not recommended. Blood urea nitrogen (BUN)/cr eatinine ratioOrdered By: Kimmie Hussein on 11-21-2024 Urea nitrogen/Creatinine [Mass ratio] 17.5 mg/mg 10-20 [facility] CBC W/Diff, Automatedon 11-12 Absolute Lymph 2.99 X10 3/uL Normal 0.83-4.51 [facility] Comment on above: Performed By: #### L 100.0100, L500.4050 #### [facility] Laboratory [address] [place], [address] Absolute Neut 5.5 X10 3/uL Normal 2.0-7.7 [facility] Comment on above: Performed By: #### L 100.0100, L500.4050 #### [facility] [address] [place], [address] Basophils/100 WBC (Bld) 0.8 % Normal 0-1 [facility] Comment on above: Performed By: #### L 100.0100, L500.4050 #### [facility] [address] [place], [address] Eosinophils/100 WBC (Bld) 0.8 % Normal 0-5 [facility] Comment on above: Performed By: #### L 100.0100, L500.4050 #### [facility] [address] [place], [address] Erythrocyte distribution width (RBC) [Ratio] 17.0 % High 11.6-14.6 [facility] Comment on above: Performed By: #### L 100.0100, L500.4050 #### [facility] [address] [place], [address] Hematocrit (Bld) [Volume fraction] 43.6 % Normal 37-47 [facility] Comment on above: Performed By: #### L 100.0100, L500.4050 #### [facility] [address] [place], [address] Hemoglobin (Bld) [Mass/Vol] 13.4 g/dL Normal 12.0-15.0 [facility] Comment on above: Performed By: #### L 100.0100, L500.4050 #### [facility] [address] [place], [address] IG% 0.800 Normal 0.0-0.9 [facility] Comment on above: Result Comment: IG% - Immature Granulocytes (promyelocytes, myelocytes and metamyelocytes) > 1% indicates that a LEFT SHIFT is Present. Performed By: #### L 100.0100, L500.4050 #### [facility] [address] [place], [address] Lymphocytes/100 WBC (Bld) 31.1 % Normal 19-41 [facility] Comment on above: Performed By: #### L 100.0100, L500.4050 #### [facility] [address] [place], [address] MCH (RBC) [Entitic mass] 28.7 pg Normal 27.0-32.0 [facility] Comment on above: Performed By: #### L 100.0100, L500.4050 #### [facility] [address] [place], [address] MCHC (RBC) [Mass/Vol] 30.7 g/dL Low 32-36 [facility] Comment on above: Performed By: #### L 100.0100, L500.4050 #### [facility] [address] [place], [address] MCV (RBC) [Entitic vol] 93.4 fL Normal 81-99 [facility] Comment on above: Performed By: #### L 100.0100, L500.4050 #### [facility] [address] [place], [address] Monocytes/100 WBC (Bld) 9.1 % Normal 0-10 [facility] Comment on above: Performed By: #### L 100.0100, L500.4050 #### [facility] [address] [place], [address] Neutrophils/100 WBC (Bld) 57.4 % Normal 47-70 [facility] Comment on above: Performed By: #### L 100.0100, L500.4050 #### [facility] [address] [place], [address] Nucleated RBC (Bld) [#/Vol] 0 10*3/uL Normal 0-5 [facility] Comment on above: Performed By: #### L 100.0100, L500.4050 #### [facility] [address] [place], [address] Platelet mean volume (Bld) [Entitic vol] 10.8 fL Normal 6.2-12.0 [facility] Comment on above: Performed By: #### L 100.0100, L500.4050 #### [facility] [address] [place], [address] Platelets (Bld) [#/Vol] 217 10*3/uL Normal 150-450 [facility] Comment on above: Performed By: #### L 100.0100, L500.4050 #### [facility] [address] [place], [address] RBC (Bld) [#/Vol] 4.67 10*6/uL Normal 4.2-5.4 [facility] Comment on above: Performed By: #### L 100.0100, L500.4050 #### [facility] [address] [place], [address] RDW SD 58.4 fl High 35.1-43.9 [facility] Comment on above: Performed By: #### L 100.0100, L500.4050 #### [facility] [address] [place], [address] WBC (Bld) [#/Vol] 9.6 10*3/uL Normal 4.4-11.0 [facility] Comment on above: Performed By: #### L 100.0100, L500.4050 #### [facility] [address] [place], [address] Carbon dioxide measurementOr dered By: Kimmiedeborah Hussein on 11-21-2024 CO2 [Moles/Vol] 28.0 mmol/L 21.0-32.0 [facility] Chloride measurementOrdered By: Kimmie Hussein on 11-21-2024 Chloride [Moles/Vol] 102 mmol/L 98-107 [facility] Metabolic Prof ilon 11-21-2024 Albumin [Mass/Vol] 3.1 g/dL Low 3.2-5.0 [facility] Comment on above: Performed By: #### L 100.0100, L500.4050 #### [facility] [address] [place], [address] Albumin/Globulin [Mass ratio] 0.6 {ratio} Low 0.9-2.4 [facility] Comment on above: Performed By: #### L 100.0100, L500.4050 #### [facility] [address] [place], [address] ALK P 117 U/L Normal 45-117 [facility] Comment on above: Performed By: #### L 100.0100, L500.4050 #### [facility] [address] [place], [address] ALT [Catalytic activity/Vol] 40 U/L Normal 13-56 [facility] Comment on above: Performed By: #### L 100.0100, L500.4050 #### [facility] [address] [place], [address] AST [Catalytic activity/Vol] 30 U/L Normal 15-37 [facility] Comment on above: Performed By: #### L 100.0100, L500.4050 #### [facility] [address] [place], [address] Bilirubin [Mass/Vol] 0.80 mg/dL Normal 0.20-1.00 [facility] Comment on above: Result Comment: For patients on eltrombopag therapy, use of Dimension [place] TBIL is not recommended. Performed By: #### L 100.0100, L500.4050 #### [facility] [address] [place], [address] BUN/CRE 17.5 RATIO Normal 10-20 [facility] Comment on above: Performed By: #### L 100.0100, L500.4050 #### [facility] [address] [place], [address] CA,Total 9.3 mg/dL Normal 8.5-10.1 [facility] Comment on above: Performed By: #### L 100.0100, L500.4050 #### [facility] [address] [place], [address] Chloride [Moles/Vol] 102 mmol/L Normal 98-107 [facility] Comment on above: Performed By: #### L 100.0100, L500.4050 #### [facility] [address] [place], [address] CO2 [Moles/Vol] 28.0 mmol/L Normal 21.0-32.0 [facility] Comment on above: Performed By: #### L 100.0100, L500.4050 #### [facility] [address] [place], [address] Creatinine [Mass/Vol] 1.14 mg/dL High 0.55-1.02 [facility] Comment on above: Result Comment: The validity of the calculated GFR GFRAA in patients over 70 years has not been determined. Clinical correlation is essential. Performed By: #### L 100.0100, L500.4050 #### [facility] [address] [place], [address] EST GFR - AA 58 mL/min Low >60 [facility] Comment on above: Result Comment: Afri can [place] GFR Calc Performed By: #### L 100.0100, L500.4050 #### [facility] [address] [place], [address] GAP 7 Normal 5-15 [facility] Comment on above: Performed By: #### L 100.0100, L500.4050 #### [facility] [address] [place], [address] GFR/1.73 sq M.predicted among non-blacks MDRD (S/P/Bld) [Vol rate/Area] 48 mL/min/{1.73_m2} Low >60 [facility] Comment on above: Result Comment: Non- GFR Calc Performed By: #### L 100.0100, L500.4050 #### [facility] [address] [place], [address] Globulin (S) [Mass/Vol] 4.8 g/dL High 2.2-4.2 [facility] Comment on above: Performed By: #### L 100.0100, L500.4050 #### [facility] [address] [place], [address] Glucose [Mass/Vol] 98 mg/dL Normal 74-106 [facility] Comment on above: Performed By: #### L 100.0100, L500.4050 #### [facility] [address] [place], [address] Potassium [Moles/Vol] 3.4 mmol/L Low 3.5-5.1 [facility] Comment on above: Performed By: #### L 100.0100, L500.4050 #### [facility] [address] [place], [address] Sodium [Moles/Vol] 136 mmol/L Normal 136-145 [facility] Comment on above: Performed By: #### L 100.0100, L500.4050 #### [facility] [address] [place], [address] T PROT 7.9 g/dL Normal 6.4-8.2 [facility] Comment on above: Performed By: #### L 100.0100, L500.4050 #### [facility] [address] [place], [address] Urea nitrogen [Mass/Vol] 20 mg/dL High 7-18 [facility] Comment on above: Performed By: #### L 100.0100, L500.4050 #### [facility] [address] [place], [address] Eosinophil percentageOrdered By: Kimmie Hussein on 11-21-2024 Eosinophils/100 WBC (Bld) 0.8 % 0-5 [facility] Erythrocyte distribution wid th ratioOrdered By: Kimmie Hussein on 11-21-2024 Erythrocyte distribution width (RBC) [Ratio] 17.0 % High 11.6-14.6 [facility] Erythrocyte distribution wid th standard deviationOrdered By: Kimmie Hussein on 11-21-2024 Erythrocyte distribution width (RBC) [Entitic vol] 58.4 fL High 35.1-43.9 [facility] Erythrocyte distribution width (RBC) [Ratio] 58.4 fl High 35.1-43.9 [facility] Estimated glomerular filtrat ion rate (GFR) AmericanOrdered By: Kimmie Hussein on 11-21-2024 Estimated GFR (MDRD) Amer 58 mL/min Low >60 [facility] Comment on above: GFR Calc Glomerular filtration rate ( GFR) estimationOrdered By: Kimmie Hussein on 11-21-2024 Estimated GFR (MDRD) Non-Af Amer 48 mL/min Low >60 [facility] Comment on above: Non- GFR Calc GFR/1.73 sq M.predicted among non-blacks MDRD (S/P/Bld) [Vol rate/Area] 48 mL/min/{1.73_m2} Low >60 [facility] Comment on above: Non- GFR Calc Glucose measurementOrdered B y: Kimmie Hussein on 11-21-2024 Glucose [Mass/Vol] 98 mg/dL 74-106 [facility] Hematocrit Auto (Bld) [Volum e fraction]Ordered By: Kimmie Hussein on 11-21-2024 Hematocrit (Bld) [Volume fraction] 43.6 % 37-47 [facility] Hemoglobin measurementOrdere d By: Kimmie Hussein on 11-21-2024 Hemoglobin (Bld) [Mass/Vol] 13.4 g/dL 12.0-15.0 [facility] Immature granulocytes/100 WB C Auto (Bld)Ordered By: Kimmie Hussein on 11-21-2024 Immature granulocytes/100 WBC (Bld) 0.800 % 0.0-0.9 [facility] Comment on above: IG% - Immature Granu locytes (promyelocytes, myelocytes and metamyelocytes) > 1% indicates that a LEFT SHIFT is Present. Laboratory - Chemistry and C hemistry - challengeOrdered By: Kimmie Hussein on 11-21-2024 AST [Catalytic activity/Vol] 30 U/L 15-37 [facility] Lymphocytes Auto (Unsp spec) [#/Vol]Ordered By: Kimmie Hussein on 11-21-2024 Lymphocytes (Bld) [#/Vol] 2.99 10*3/uL 0.83-4.51 [facility] Lymphocytes/100 WBC Auto (Un sp spec)Ordered By: Kimmie Hussein on 11-21-2024 Lymphocytes/100 WBC (Bld) 31.1 % 19-41 [facility] MCV (mean corpuscular volume ) determinationOrdered By: Kimmie Hussein on 11-21-2024 MCV (RBC) [Entitic vol] 93.4 fL 81-99 [facility] Mean corpuscular hemoglobin (MCH) determinationOrdered By: Kimmie Hussein on 11-21-2024 MCH (RBC) [Entitic mass] 28.7 pg 27.0-32.0 [facility] Mean corpuscular hemoglobin concentration (MCHC) determinationOrdered By: Kimmie Hussein on 11-21-2024 MCHC (RBC) [Mass/Vol] 30.7 g/dL Low 32-36 [facility] Mean platelet volume determi nationOrdered By: Kimmie Hussein on 11-21-2024 Platelet mean volume (Bld) [Entitic vol] 10.8 fL 6.2-12.0 [facility] Monocyte percentageOrdered B y: Kimmie Hussein on 11-21-2024 Monocytes/100 WBC (Bld) 9.1 % 0-10 [facility] Neutrophil percentageOrdered By: Kimmie Hussein on 11-21-2024 Neutrophils/100 WBC (Bld) 57.4 % 47-70 [facility] Nucleated red blood cell per centageOrdered By: Kimmie Hussein on 11-21-2024 Nucleated RBC/100 WBC (Bld) [Ratio] 0 % 0-5 [facility] Platelet countOrdered By: Thad Hussein on 11-21-2024 Platelets (Bld) [#/Vol] 217 10*3/uL 150-450 [facility] Potassium measurementOrdered By: Kimmie Hussein on 11-21-2024 Potassium [Moles/Vol] 3.4 mmol/L Low 3.5-5.1 [facility] RBC Auto (Bld) [#/Vol]Ordere d By: Kimmie Hussein on 11-21-2024 RBC (Bld) [#/Vol] 4.67 10*6/uL 4.2-5.4 [facility] Serum anion gap measurementO rdered By: Kimmie Hussein on 11-21-2024 Anion gap [Moles/Vol] 7 mmol/L 5-15 [facility] Serum globulin measurementOr dered By: Kimmie Hussein on 11-21-2024 Globulin (S) [Mass/Vol] 4.8 g/dL High 2.2-4.2 [facility] Serum or plasma alanine [place] otransferase (ALT) measurementOrdered By: Kimmie Hussein on 11-21-2024 ALT [Catalytic activity/Vol] 40 U/L 13-56 [facility] Serum or plasma albumin shell urement (mass/volume)Ordered By: Kimmie Hussein on 11-21-2024 Albumin [Mass/Vol] 3.1 g/dL Low 3.2-5.0 [facility] Serum or plasma alkaline natalie sphatase measurementOrdered By: Kimmie Hussein on 11-21-2024 ALP [Catalytic activity/Vol] 117 U/L 45-117 [facility] Serum or plasma calcium shell urement (mass/volume)Ordered By: Kimmie Hussein on 11-21-2024 Calcium [Mass/Vol] 9.3 mg/dL 8.5-10.1 [facility] Serum or plasma creatinine m easurement (mass/volume)Ordered By: Kimmie Hussein on 11-21-2024 Creatinine [Mass/Vol] 1.14 mg/dL High 0.55-1.02 [facility] Comment on above: The validity of the calculated GFR & GFRAA in patients over 70 years has not been determined. Clinical correlation is essential. Serum or plasma urea nitroge n measurement (mass/volume)Ordered By: Kimmie Hussein on 11-21-2024 Urea nitrogen [Mass/Vol] 20 mg/dL High 7-18 [facility] Sodium levelOrdered By: Sherry Hussein on 11-21-2024 Sodium [Moles/Vol] 136 mmol/L 136-145 [facility] Total proteinOrdered By: Neena Hussein on 11-21-2024 Protein [Mass/Vol] 7.9 g/dL 6.4-8.2 [facility] White blood cell (WBC) count Ordered By: Kimmie Hussein on 11-21-2024 WBC (Bld) [#/Vol] 9.6 10*3/uL 4.4-11.0 [facility] CNPNon 11-18-2024 CNPN Telephone ([facility]) MARY KATEMARY CHEUNG ([id number]) 1940 F TXT Date Time Provider Department 11/18/24 ATUL HARVEY During your visit today, we recorded the following information about you: Kimi Wyatt, RN 11/18/2024 8:19 AM Signed Daughter reports patient fell 2 days ago in the [facility] restroom. Daughter was waiting in her car. [...] 11/29/2021 Sialoadenitis (more content not included)... Normal [facility] Sarah 11-16-2024 CNPN Telephone ([facility]) MARY CRANE ([id number]) 1940 F TXT Date Time Provider Department 11/16/24 ATUL HARVEY During your visit today, we recorded the following information about you: Elizabeth Goldberg LPN 11/16/2024 3:38 PM Signed Pt calling to see if she can take her Lasix 40 mg at 5 pm instead of in the am. Pt reports she has to run to the bathroom all day. Pt also takes her Potassium at 5 pm. Please advise pt. JANY Odonnell Alyson Taylor, APRN.EPOXY SPECIALIST 11/17/2024 7:57 AM Signed Yes, ok to [...] Fully Assessed Reason for Visit: Medication Question [4088] Prescriptions as of 11/17/2024 - doxycycline (VIBRA-TABS) [...] [R11.0] 03 (more content not included)... Normal [facility] CNOVon 11-11-2024 CNOV Office Visit ([facility] ) MARY CRANE ([id number]) 1940 F TXT Date Time Provider Department 11/11/24 6:15 PM MARIA E BREWSTER [facility] During your visit today, we recorded the following information about you: Temperature Pulse Respiration Blood pressure 98.7 degrees 70/minute 22/minute 147/77 Weight 69 kg Maria E Brewster APRN.EPOXY SPECIALIST 11/11/2024 6:25 PM Signed CC: Patient presents [...] bronchitis, bronchiectasis or COPD: No Smoker: No Seasonal/environmenta l allergies: No The ROS is otherwise negative. [...] multiple adenomatous polyps, repeat in 3 yrs ESOPHAGOGASTRODUODENO SCOPY TRANSORAL DIAGNOSTIC 12/21/2014 EGD LAPAROSCOPY SURG CHOLECYSTECTOMY [...] tablet Take 1 tablet by mouth once asia (more content not included)... Normal [facility] CNOVon 11-07-2024 CNOV Office Visit ([facility] ) MARY CRANE ([id number]) 1940 F TXT Date Time Provider Department 11/07/24 10:20 AM RASHEED BARRIOS During your visit today, we recorded the following information about you: Pulse Respiration Blood pressure Weight 71/minute 14/minute 140/90 68.5 kg Height 1.6 m Rasheed Barrios MD 11/07/2024 10:57 AM Signed [facility]AL CARDIOLOGY Cardiology ([facility]) [address] [facility] [id number] OUTPATIENT VISIT DATE 11/07/2024 PRIMARY CARE PHYSICIAN: Atul Harvey [address] [place] [address] HISTORY OF PRESENT ILLNESS: Ms. Crane is [...] multiple adenomatous polyps, repeat in 3 yrs ESOPHAGOGASTRODUODENO SCOPY TRANSORAL DIAGNOSTIC 12/21/2014 EGD LAPAROSCOPY SURG CHOLECYSTECTOMY [...] once daily. (more content not included)... Normal [facility] 10-26-2024 [facility] Telephone ([facility]) MARY CRANE ([id number]) 1940 F TXT Date Time Provider Department 10/26/24 [facility] During your visit today, we recorded the following information about you: Christel Wagner RN 10/26/2024 12:00 PM Signed Pt called in and reports she just got out of the hospital 4 days ago. She had an appointment yesterday with Catalina Jauregui GENERAL OPHTHALMOLOGIST, but forgot to tell her about having [...] stool softener would be ok. Catalina Jauregui APRN.FELICIA 10/26/2024 1:08 PM Signed Yes a stool [...] Fully Assessed Reason for Visit: Patient Update [6264] Patient Question [1797] Prescriptions as of 10/26/2024 - losartan (COZAAR) [...] Sialoadenitis [K11.20] (more content not included)... Normal [facility] CNOVon 10-25-2024 CNOV Office Visit ([facility] ) MARY CRANE ([id number]) 1940 F TXT Date Time Provider Department 10/25/24 10:20 AM CATALINA JAUREGUIWS During your visit today, we recorded the following information about you: Pulse Blood pressure Weight 73/minute 112/72 68.8 kg Catalina Jauregui APRN.EPOXY SPECIALIST 10/25/2024 11:18 AM Signed Transitional Care Management TCM Eligibility Documentation Program: Transitional Care Management Status: Enrolled Effective Dates: 10/24/2024 - present Responsible Staff: Cho-Kirstin Vo RN Discharge date: 10/18/2024 (Program start) [...] gotten sick from a family member at [place]-got sick about 6 days later. Started with stuffy nose and then drippy nose and a little bit of a cough. On 10/12 came to express care and then was sent to [facility] ER and admitted. Was dx with RSV and admitted to the hospital-there for 6 days. Has had irregular heart beat in the past. Was dx with new onset a-fib with RVR. Had a Cardizem gtt in the hospital. Has appt with tip banding machine operator Dr. Barrios on 11/07. Overall feeling a [...] diagnosis) Continue with medications as prescribed at [facility]. Continue with cardiology at the end of this month. Continue with PCP f/u in January F/u as needed. 2. Encounter for immunization - ICD9: V03.89, ICD10: Z23 She will get her RSV shot at the pharmacy in 4-6 weeks. 3. RSV (acute bronchiolitis due to respiratory syncytial virus) - ICD9: 466.11, ICD10: J21.0 Continue with medications as prescribed at [facility]. Continue with cardiology at the end of this month. Continue with PCP f/u in January F/u as needed. 4. Generalized weakness - ICD9: 780.79, ICD10: R53.1 Continue with medications as prescribed at [facility]. Continue with cardiology at the end of this month. Continue with PCP f/u in January F/u as needed. 5. Decreased appetite - ICD9: 783.0, ICD10: R63.0 Continue with medications as prescribed at [facility]. Continue with cardiology at the end of this month. Continue with PCP f/u in January F/u as needed. Continue with increasing water and protein intake. Catalina Jauregui APRN.Catalina Moralez APRN.FELICIA 10/25/2024 10:51 AM Signed In about a [...] for Visit: Hospital Follow Up [177] Cmt: [facility] RSV AND afib, discharged 10/18 Primary [...] a day.Dis (more content not included)... Normal [facility] [facility], Blood (WB)on 2024 CUB No growth in 5 days. Normal [facility] Comment on above: Performed By: #### L 400.0001, M100.678 #### [facility] [address] [place], [address] Absolute neutrophil countOrd ered By: Rasheed Ledezma on 10-16-2024 Neutrophils (Bld) [#/Vol] 8.4 10*3/uL High 2.0-7.7 [facility] Amiodaroneon 10-16-2024 AMIODARONE Normal [facility] Comment on above: Result Comment: CANC ELLED Performed By: #### L 100.0100, L503.6005, L503.5510, L300.3900, L300.4310, L500.3400, L500.4050, L501.5200, L501.9520 #### [facility] [address] [place], [address] Noramiodarone Normal [facility] Comment on above: Result Comment: CANC ELLED Performed By: #### L 100.0100, L503.6005, L503.5510, L300.3900, L300.4310, L500.3400, L500.4050, L501.5200, L501.9520 #### [facility] [address] [place], [address] Atypical lymphocyte percenta geOrdered By: Rasheed Ledezma on 10-16-2024 Atypical Lymphocytes 1+ % [facility] Basic Metabolic Profile (BMP )on 10-16-2024 BUN/CRE 24.1 RATIO High 10-20 [facility] Comment on above: Performed By: #### L 100.0100, L503.6005, L503.5510, L300.3900, L300.4310, L500.3400, L500.4050, L501.5200, L501.9520 #### [facility] [address] [place], [address] CA,Total 9.3 mg/dL Normal 8.5-10.1 [facility] Comment on above: Performed By: #### L 100.0100, L503.6005, L503.5510, L300.3900, L300.4310, L500.3400, L500.4050, L501.5200, L501.9520 #### [facility] [address] [place], [address] Chloride [Moles/Vol] 99 mmol/L Normal 98-107 [facility] Comment on above: Performed By: #### L 100.0100, L503.6005, L503.5510, L300.3900, L300.4310, L500.3400, L500.4050, L501.5200, L501.9520 #### [facility] [address] [place], [address] CO2 [Moles/Vol] 25.0 mmol/L Normal 21.0-32.0 [facility] Comment on above: Performed By: #### L 100.0100, L503.6005, L503.5510, L300.3900, L300.4310, L500.3400, L500.4050, L501.5200, L501.9520 #### [facility] [address] [place], [address] Creatinine [Mass/Vol] 1.08 mg/dL High 0.55-1.02 [facility] Comment on above: Result Comment: The validity of the calculated GFR GFRAA in patients over 70 years has not been determined. Clinical correlation is essential. Performed By: #### L 100.0100, L503.6005, L503.5510, L300.3900, L300.4310, L500.3400, L500.4050, L501.5200, L501.9520 #### [facility] [address] [place], [address] ECRCL 35.64 ml/min Normal [facility] Comment on above: Performed By: #### L 100.0100, L503.6005, L503.5510, L300.3900, L300.4310, L500.3400, L500.4050, L501.5200, L501.9520 #### [facility] [address] [place], [address] EST GFR - AA 62 mL/min Normal >60 [facility] Comment on above: Result Comment: Afri can Ecuadorean GFR Calc Performed By: #### L 100.0100, L503.6005, L503.5510, L300.3900, L300.4310, L500.3400, L500.4050, L501.5200, L501.9520 #### [facility] [address] [place], [address] GAP 7 Normal 5-15 [facility] Comment on above: Performed By: #### L 100.0100, L503.6005, L503.5510, L300.3900, L300.4310, L500.3400, L500.4050, L501.5200, L501.9520 #### [facility] [address] [place], [place], [id number] (535) GFR/1.73 sq M.predicted among non-blacks MDRD (S/P/Bld) [Vol rate/Area] 51 mL/min/{1.73_m2} Low >60 [facility] Comment on above: Result Comment: Non- GFR Calc Performed By: #### L 100.0100, L503.6005, L503.5510, L300.3900, L300.4310, L500.3400, L500.4050, L501.5200, L501.9520 #### [facility] [address] [place], [address] Glucose [Mass/Vol] 140 mg/dL High 74-106 [facility] Comment on above: Result Comment: Fast ing Glucose result greater than or equal to 126 mg/dL suggests DIABETES MELLITUS per A.D.A. criteria. Performed By: #### L 100.0100, L503.6005, L503.5510, L300.3900, L300.4310, L500.3400, L500.4050, L501.5200, L501.9520 #### [facility] [address] [place], [address] Potassium [Moles/Vol] 4.1 mmol/L Normal 3.5-5.1 [facility] Comment on above: Performed By: #### L 100.0100, L503.6005, L503.5510, L300.3900, L300.4310, L500.3400, L500.4050, L501.5200, L501.9520 #### [facility] [address] [place], [address] Sodium [Moles/Vol] 132 mmol/L Low 136-145 [facility] Comment on above: Performed By: #### L 100.0100, L503.6005, L503.5510, L300.3900, L300.4310, L500.3400, L500.4050, L501.5200, L501.9520 #### [facility] [address] [place], [place], [id number] Urea nitrogen [Mass/Vol] 26 mg/dL High 7-18 [facility] Comment on above: Performed By: #### L 100.0100, L503.6005, L503.5510, L300.3900, L300.4310, L500.3400, L500.4050, L501.5200, L501.9520 #### [facility] [address] [place], [place], [id number] Basophil percentageOrdered B y: Rasheed Ledezma on 10-16-2024 Basophils/100 WBC (Bld) 0.5 % 0-1 [facility] Blood urea nitrogen (BUN)/cr eatinine ratioOrdered By: Rasheed Ledezma on 10-16-2024 Urea nitrogen/Creatinine [Mass ratio] 24.1 mg/mg High 10-20 [facility] CBC W/Diff, Automatedon ATYPICAL LYMPH 1+ Normal [facility] Comment on above: Performed By: #### L 100.0100, L503.6005, L503.5510, L300.3900, L300.4310, L500.3400, L500.4050, L501.5200, L501.9520 #### [facility] [address] [place], [place], [address] Carbon dioxide measurementOr dered By: Rasheed Ledezma on 10-16-2024 CO2 [Moles/Vol] 25.0 mmol/L 21.0-32.0 [facility] Chloride measurementOrdered By: Rasheed Ledezma on 10-16-2024 Chloride [Moles/Vol] 99 mmol/L 98-107 [facility] Consultation - Cardiologyon 10-16-2024 Consultation - Cardiology [facility] Medical Records Department [address] [place] [address] Consultation - Cardiology 10/16/24 0948 MR#: [id number] Acct: [id number] Name: MARY CRANE Kenneth Rep #: [id number] : 1940 84 From: Mario Hagen MD PCP: Dr. Atul Harvey, DO Status:ADM IN Location: [place] [address]1 Assessment Plan Assessment/Plan (1) Atrial fibrillation with [...] Consult: 10/16/24 HPI Narrative HPI Narrative: MARY CRANE, is a 84 F who presented to [...] rate of between 120 and 130 bpm. [facility] Medical History (Updated 10/13/24 @ 09:57 [...] BID supplement 10/13/24 Unknown History mg-copper 1 [id number] capsule (PreserVision AREDS-2) Allergy/AdvReac Type Severity Reaction [...] Constitutional Constitut (more content not included)... Normal [facility] Eosinophil percentageOrdered By: Rasheed Ledezma on 10-16-2024 Eosinophils/100 WBC (Bld) 1.2 % 0-5 [facility] Erythrocyte distribution wid th ratioOrdered By: Rasheed Ledezma on 10-16-2024 Erythrocyte distribution width (RBC) [Ratio] 15.4 % High 11.6-14.6 [facility] Erythrocyte distribution wid th standard deviationOrdered By: Rasheed Ledezma on 10-16-2024 Erythrocyte distribution width (RBC) [Entitic vol] 49.1 fL High 35.1-43.9 [facility] Estimated glomerular filtrat ion rate (GFR) AmericanOrdered By: Rasheed Ledezma on 10-16-2024 Estimated GFR (MDRD) Amer 62 mL/min >60 [facility] Comment on above: GFR Calc Estimation of creatinine cassie aranceOrdered By: Rasheed Ledezma on 10-16-2024 Estimated Creatinine Clearance Calc 35.64 ml/min [facility] Glomerular filtration rate ( GFR) estimationOrdered By: Rasheed Ledezma on 10-16-2024 Estimated GFR (MDRD) Non-Af Amer 51 mL/min Low >60 [facility] Comment on above: Non- GFR Calc Glucose measurementOrdered B y: Rasheed Ledezma on 10-16-2024 Glucose [Mass/Vol] 140 mg/dL High 74-106 [facility] Comment on above: Fasting Glucose resu lt greater than or equal to 126 mg/dL suggests DIABETES MELLITUS per A.D.A. criteria. Hematocrit Auto (Bld) [Volum e fraction]Ordered By: Rasheed Ledezma on 10-16-2024 Hematocrit (Bld) [Volume fraction] 42.4 % 37-47 [facility] Hemoglobin measurementOrdere d By: Rasheed Ledezma on 10-16-2024 Hemoglobin (Bld) [Mass/Vol] 13.8 g/dL 12.0-15.0 [facility] Immature granulocytes/100 WB C Auto (Bld)Ordered By: Rasheed Ledezma on 10-16-2024 Immature granulocytes/100 WBC (Bld) 0.800 % 0.0-0.9 [facility] Comment on above: IG% - Immature Granu locytes (promyelocytes, myelocytes and metamyelocytes) > 1% indicates that a LEFT SHIFT is Present. Lymphocytes Auto (Unsp spec) [#/Vol]Ordered By: Rasheed Ledezma on 10-16-2024 Lymphocytes (Bld) [#/Vol] 1.99 10*3/uL 0.83-4.51 [facility] Lymphocytes/100 WBC Auto (Un sp spec)Ordered By: Rasheed Ledezma on 10-16-2024 Lymphocytes/100 WBC (Bld) 17.7 % Low 19-41 [facility] MCV (mean corpuscular volume ) determinationOrdered By: Rasheed Ledezma on 10-16-2024 MCV (RBC) [Entitic vol] 87.4 fL 81-99 [facility] Mean corpuscular hemoglobin (MCH) determinationOrdered By: Rasheed Ledezma on 10-16-2024 MCH (RBC) [Entitic mass] 28.5 pg 27.0-32.0 [facility] Mean corpuscular hemoglobin concentration (MCHC) determinationOrdered By: Rasheed Ledezma on 10-16-2024 MCHC (RBC) [Mass/Vol] 32.5 g/dL 32-36 [facility] Mean platelet volume determi nationOrdered By: Rasheed Ledezma on 10-16-2024 Platelet mean volume (Bld) [Entitic vol] 11.2 fL 6.2-12.0 [facility] Monocyte percentageOrdered B y: Rasheed Ledezma on 10-16-2024 Monocytes/100 WBC (Bld) 5.0 % 0-10 [facility] Neutrophil percentageOrdered By: Rasheed Ledezma on 10-16-2024 Neutrophils/100 WBC (Bld) 74.8 % High 47-70 [facility] Nucleated red blood cell per centageOrdered By: Rasheed Ledezma on 10-16-2024 Nucleated RBC/100 WBC (Bld) [Ratio] 0 % 0-5 [facility] Platelet countOrdered By: Erik Ledezma on 10-16-2024 Platelets (Bld) [#/Vol] 187 10*3/uL 150-450 [facility] Potassium measurementOrdered By: Rasheed Ledezma on 10-16-2024 Potassium [Moles/Vol] 4.1 mmol/L 3.5-5.1 [facility] RBC Auto (Bld) [#/Vol]Ordere d By: Rasheed Ledezma on 10-16-2024 RBC (Bld) [#/Vol] 4.85 10*6/uL 4.2-5.4 [facility] Serum anion gap measurementO rdered By: Rasheed Ledezma on 10-16-2024 Anion gap [Moles/Vol] 7 mmol/L 5-15 [facility] Serum or plasma calcium shell urement (mass/volume)Ordered By: Rasheed Ledezma on 10-16-2024 Calcium [Mass/Vol] 9.3 mg/dL 8.5-10.1 [facility] Serum or plasma creatinine m easurement (mass/volume)Ordered By: Rasheed Ledezma on 10-16-2024 Creatinine [Mass/Vol] 1.08 mg/dL High 0.55-1.02 [facility] Comment on above: The validity of the calculated GFR & GFRAA in patients over 70 years has not been determined. Clinical correlation is essential. Serum or plasma urea nitroge n measurement (mass/volume)Ordered By: Rasheed Ledezma on 10-16-2024 Urea nitrogen [Mass/Vol] 26 mg/dL High 7-18 [facility] Sodium levelOrdered By: William Ledezma on 10-16-2024 Sodium [Moles/Vol] 132 mmol/L Low 136-145 [facility] White blood cell (WBC) count Ordered By: Rasheed Ledezma on 10-16-2024 WBC (Bld) [#/Vol] 11.2 10*3/uL High 4.4-11.0 [facility] Basic Metabolic Profile (BMP )on 10-15-2024 BUN/CRE 20.2 RATIO High 10-20 [facility] Comment on above: Performed By: #### L 501.4020 #### [facility] [address] [place], [address] CA,Total 9.1 mg/dL Normal 8.5-10.1 [facility] Comment on above: Performed By: #### L 501.4020 #### [facility] [address] [place], [address] Chloride [Moles/Vol] 98 mmol/L Normal 98-107 [facility] Comment on above: Performed By: #### L 501.4020 #### [facility] [address] [place], [address] CO2 [Moles/Vol] 24.0 mmol/L Normal 21.0-32.0 [facility] Comment on above: Performed By: #### L 501.4020 #### [facility] [address] [place], [address] Creatinine [Mass/Vol] 1.24 mg/dL High 0.55-1.02 [facility] Comment on above: Result Comment: The validity of the calculated GFR GFRAA in patients over 70 years has not been determined. Clinical correlation is essential. Performed By: #### L 501.4020 #### [facility] [address] [place], [address] ECRCL 31.04 ml/min Normal [facility] Comment on above: Performed By: #### L 501.4020 #### [facility] [address] [place], [address] EST GFR - AA 53 mL/min Low >60 [facility] Comment on above: Result Comment: Afri can Ecuadorean GFR Calc Performed By: #### L 501.4020 #### [facility] [address] [place], [address] GAP 9 Normal 5-15 [facility] Comment on above: Performed By: #### L 501.4020 #### [facility] [address] [place], [address] GFR/1.73 sq M.predicted among non-blacks MDRD (S/P/Bld) [Vol rate/Area] 44 mL/min/{1.73_m2} Low >60 [facility] Comment on above: Result Comment: Non- GFR Calc Performed By: #### L 501.4020 #### [facility] [address] [place], [address] Glucose [Mass/Vol] 151 mg/dL High 74-106 [facility] Comment on above: Result Comment: Fast ing Glucose result greater than or equal to 126 mg/dL suggests DIABETES MELLITUS per A.D.A. criteria. Performed By: #### L 501.4020 #### [facility] [address] [place], [address] Potassium [Moles/Vol] 3.6 mmol/L Normal 3.5-5.1 [facility] Comment on above: Performed By: #### L 501.4020 #### [facility] [address] [place], [address] Sodium [Moles/Vol] 131 mmol/L Low 136-145 [facility] Comment on above: Performed By: #### L 501.4020 #### [facility] [address] [place], [address] Urea nitrogen [Mass/Vol] 25 mg/dL High 7-18 [facility] Comment on above: Performed By: #### L 501.4020 #### [facility] [address] [place], [address] CBC W/Diff, Automatedon 01-0 4-2024 Absolute Lymph 1.66 X10 3/uL Normal 0.83-4.51 [facility] Comment on above: Performed By: #### L 501.4020 #### [facility] [address] [place], [address] Absolute Neut 9.1 X10 3/uL High 2.0-7.7 [facility] Comment on above: Performed By: #### L 501.4020 #### [facility] [address] [place], [address] Basophils/100 WBC (Bld) 0.3 % Normal 0-1 [facility] Comment on above: Performed By: #### L 501.4020 #### [facility] [address] [place], [address] Eosinophils/100 WBC (Bld) 0.8 % Normal 0-5 [facility] Comment on above: Performed By: #### L 501.4020 #### [facility] [address] [place], [address] Erythrocyte distribution width (RBC) [Ratio] 15.7 % High 11.6-14.6 [facility] Comment on above: Performed By: #### L 501.4020 #### [facility] [address] [place], [address] Hematocrit (Bld) [Volume fraction] 42.7 % Normal 37-47 [facility] Comment on above: Performed By: #### L 501.4020 #### [facility] [address] [place], [address] Hemoglobin (Bld) [Mass/Vol] 13.8 g/dL Normal 12.0-15.0 [facility] Comment on above: Performed By: #### L 501.4020 #### [facility] [address] [place], [address] IG% 0.700 Normal 0.0-0.9 [facility] Comment on above: Result Comment: IG% - Immature Granulocytes (promyelocytes, myelocytes and metamyelocytes) > 1% indicates that a LEFT SHIFT is Present. Performed By: #### L 501.4020 #### [facility] [address] [place], [address] Lymphocytes/100 WBC (Bld) 14.2 % Low 19-41 [facility] Comment on above: Performed By: #### L 501.4020 #### [facility] [address] [place], [address] MCH (RBC) [Entitic mass] 28.6 pg Normal 27.0-32.0 [facility] Comment on above: Performed By: #### L 501.4020 #### [facility] [address] [place], [address] MCHC (RBC) [Mass/Vol] 32.3 g/dL Normal 32-36 [facility] Comment on above: Performed By: #### L 501.4020 #### [facility] [address] [place], [address] MCV (RBC) [Entitic vol] 88.6 fL Normal 81-99 [facility] Comment on above: Performed By: #### L 501.4020 #### [facility] [address] [place], [address] Monocytes/100 WBC (Bld) 5.6 % Normal 0-10 [facility] Comment on above: Performed By: #### L 501.4020 #### [facility] [address] [place], [address] Neutrophils/100 WBC (Bld) 78.4 % High 47-70 [facility] Comment on above: Performed By: #### L 501.4020 #### [facility] [address] [place], [address] Nucleated RBC (Bld) [#/Vol] 0 10*3/uL Normal 0-5 [facility] Comment on above: Performed By: #### L 501.4020 #### [facility] [address] [place], [address] Platelet mean volume (Bld) [Entitic vol] 11.0 fL Normal 6.2-12.0 [facility] Comment on above: Performed By: #### L 501.4020 #### [facility] [address] [place], [address] Platelets (Bld) [#/Vol] 169 10*3/uL Normal 150-450 [facility] Comment on above: Performed By: #### L 501.4020 #### [facility] [address] [place], [address] RBC (Bld) [#/Vol] 4.82 10*6/uL Normal 4.2-5.4 [facility] Comment on above: Performed By: #### L 501.4020 #### [facility] [address] [place], [address] RDW SD 50.6 fl High 35.1-43.9 [facility] Comment on above: Performed By: #### L 501.4020 #### [facility] [address] [place], [address] WBC (Bld) [#/Vol] 11.7 10*3/uL High 4.4-11.0 [facility] Comment on above: Performed By: #### L 501.4020 #### [facility] [address] [place], [address] Basic Metabolic Profile (BMP )on 10-14-2024 BUN/CRE 17.9 RATIO Normal 10-20 [facility] Comment on above: Performed By: #### L 400.0001, M100.678 #### [facility] [address] [place], [address] CA,Total 9.0 mg/dL Normal 8.5-10.1 [facility] Comment on above: Performed By: #### L 400.0001, #### [facility] [address] [place], [address] Chloride [Moles/Vol] 100 mmol/L Normal 98-107 [facility] Comment on above: Performed By: #### L 400.4322, #### [facility] [address] [place], [address] CO2 [Moles/Vol] 25.0 mmol/L Normal 21.0-32.0 [facility] Comment on above: Performed By: #### L 400.0001, #### [facility] [address] [place], [address] Creatinine [Mass/Vol] 1.12 mg/dL High 0.55-1.02 [facility] Comment on above: Result Comment: The validity of the calculated GFR GFRAA in patients over 70 years has not been determined. Clinical correlation is essential. Performed By: #### L 400.4322, #### [facility] [address] [place], [address] ECRCL 34.37 ml/min Normal [facility] Comment on above: Performed By: #### L 400.0001, #### [facility] [address] [place], [address] EST GFR - AA 59 mL/min Low >60 [facility] Comment on above: Result Comment: Afri can Ecuadorean GFR Calc Performed By: #### L 400.0001, #### [facility] [address] [place], [address] GAP 8 Normal 5-15 [facility] Comment on above: Performed By: #### L 400.0001, #### [facility] [address] [place], [address] GFR/1.73 sq M.predicted among non-blacks MDRD (S/P/Bld) [Vol rate/Area] 49 mL/min/{1.73_m2} Low >60 [facility] Comment on above: Result Comment: Non- GFR Calc Performed By: #### L 400.0001, #### [facility] [address] [place], [address] Glucose [Mass/Vol] 162 mg/dL High 74-106 [facility] Comment on above: Result Comment: Fast ing Glucose result greater than or equal to 126 mg/dL suggests DIABETES MELLITUS per A.D.A. criteria. Performed By: #### L 400.0001, #### [facility] [address] [place], [address] Potassium [Moles/Vol] 3.4 mmol/L Low 3.5-5.1 [facility] Comment on above: Performed By: #### L 400.0001, #### [facility] [address] [place], [address] Sodium [Moles/Vol] 133 mmol/L Low 136-145 [facility] Comment on above: Performed By: #### L 400.0001, #### [facility] [address] [place], [address] Urea nitrogen [Mass/Vol] 20 mg/dL High 7-18 [facility] [facility] Comment on above: Performed By: #### L 400.0001, #### [facility] [address] [place], [address] CBC W/Diff, Automatedon 01-0 3-2024 Absolute Lymph 1.54 X10 3/uL Normal 0.83-4.51 [facility] Comment on above: Performed By: #### L 400.0001, #### [facility] [address] [place], [address] Absolute Neut 7.4 X10 3/uL Normal 2.0-7.7 [facility] Comment on above: Performed By: #### L 400.0001, #### [facility] [address] [place], [address] Basophils/100 WBC (Bld) 0.2 % Normal 0-1 [facility] Comment on above: Performed By: #### L 400.0001, #### [facility] [address] [place], [address] Eosinophils/100 WBC (Bld) 0.7 % Normal 0-5 [facility] Comment on above: Performed By: #### L 400.0001, #### [facility] [address] [place], [address] Erythrocyte distribution width (RBC) [Ratio] 15.7 % High 11.6-14.6 [facility] Comment on above: Performed By: #### L 400.0001, #### [facility] [address] [place], [address] Hematocrit (Bld) [Volume fraction] 41.5 % Normal 37-47 [facility] Comment on above: Performed By: #### L 400.0001, #### [facility] [address] [place], [address] Hemoglobin (Bld) [Mass/Vol] 13.3 g/dL Normal 12.0-15.0 [facility] Comment on above: Performed By: #### L 400.0001, #### [facility] [address] [place], [address] IG% 0.500 Normal 0.0-0.9 [facility] Comment on above: Result Comment: IG% - Immature Granulocytes (promyelocytes, myelocytes and metamyelocytes) > 1% indicates that a LEFT SHIFT is Present. Performed By: #### L 400.0001, #### [facility] [address] [place], [address] Lymphocytes/100 WBC (Bld) 15.8 % Low 19-41 [facility] Comment on above: Performed By: #### L 400.0001, #### [facility] [address] [place], [address] MCH (RBC) [Entitic mass] 28.2 pg Normal 27.0-32.0 [facility] Comment on above: Performed By: #### L 400.0001, #### [facility] [address] [place], [address] MCHC (RBC) [Mass/Vol] 32.0 g/dL Normal 32-36 [facility] Comment on above: Performed By: #### L 400.0001, #### [facility] [address] [place], [address] MCV (RBC) [Entitic vol] 88.1 fL Normal 81-99 [facility] Comment on above: Performed By: #### L 400.0001, #### [facility] [address] [place], [address] Monocytes/100 WBC (Bld) 7.2 % Normal 0-10 [facility] Comment on above: Performed By: #### L 400.0001, #### [facility] [address] [place], [address] Neutrophils/100 WBC (Bld) 75.6 % High 47-70 [facility] Comment on above: Performed By: #### L 400.0001, #### [facility] [address] [place], [address] Nucleated RBC (Bld) [#/Vol] 0 10*3/uL Normal 0-5 [facility] Comment on above: Performed By: #### L 400.0001, #### [facility] [address] [place], [address] Platelet mean volume (Bld) [Entitic vol] 10.6 fL Normal 6.2-12.0 [facility] Comment on above: Performed By: #### L 400.0001, #### [facility] [address] [place], [address] Platelets (Bld) [#/Vol] 144 10*3/uL Low 150-450 [facility] Comment on above: Performed By: #### L 400.0001, #### [facility] [address] [place], [address] RBC (Bld) [#/Vol] 4.71 10*6/uL Normal 4.2-5.4 [facility] Comment on above: Performed By: #### L 400.0001, #### [facility] [address] [place], [address] RDW SD 51.1 fl High 35.1-43.9 [facility] Comment on above: Performed By: #### L 400.0001, #### [facility] [address] [place], [address] WBC (Bld) [#/Vol] 9.7 10*3/uL Normal 4.4-11.0 [facility] Comment on above: Performed By: #### L 400.0001, #### [facility] [address] [place], [address] Magnesiumon 10-14-2024 Magnesium [Mass/Vol] 1.8 mg/dL Normal 1.6-2.6 [facility] Comment on above: Performed By: #### L 400.0001, #### [facility] [address] [place], [address] Magnesium measurementOrdered By: Rasheed Ledezma on 10-14-2024 Magnesium [Mass/Vol] 1.8 mg/dL 1.6-2.6 [facility] Phosphoruson 10-14-2024 Phosphate [Mass/Vol] 3.0 mg/dL Normal 2.5-4.9 [facility] Comment on above: Performed By: #### L 400.0001, #### [facility] [address] [place], [address] Phosphorus measurementOrdere d By: Rasheed Ledezma on 10-14-2024 Phosphorus Level 3.0 mg/dL 2.5-4.9 [facility] Basic Metabolic Profile (BMP )on 10-13-2024 BUN/CRE 21.0 RATIO High 10-20 [facility] Comment on above: Performed By: #### L 400.0001, #### [facility] [address] [place], [address] CA,Total 9.2 mg/dL Normal 8.5-10.1 [facility] Comment on above: Performed By: #### L 400.0001, #### [facility] [address] [place], [address] Chloride [Moles/Vol] 101 mmol/L Normal 98-107 [facility] Comment on above: Performed By: #### L 400.0001, #### [facility] [address] [place], [address] CO2 [Moles/Vol] 28.0 mmol/L Normal 21.0-32.0 [facility] Comment on above: Performed By: #### L 400.0001, 8 #### [facility] [address] [place], [address] Creatinine [Mass/Vol] 1.19 mg/dL High 0.55-1.02 [facility] Comment on above: Result Comment: The validity of the calculated GFR GFRAA in patients over 70 years has not been determined. Clinical correlation is essential. Performed By: #### L 400.0001, 8 #### [facility] [address] [place], [address] ECRCL 32.35 ml/min Normal [facility] Comment on above: Performed By: #### L 400.0001, 8 #### [facility] [address] [place], [address] EST GFR - AA 55 mL/min Low >60 [facility] Comment on above: Result Comment: Afri can Ecuadorean GFR Calc Performed By: #### L 400.0001, #### [facility] [address] [place], [address] GAP 9 Normal 5-15 [facility] Comment on above: Performed By: #### L 400.0001, 8 #### [facility] [address] [place], [address] GFR/1.73 sq M.predicted among non-blacks MDRD (S/P/Bld) [Vol rate/Area] 46 mL/min/{1.73_m2} Low >60 [facility] Comment on above: Result Comment: Non- GFR Calc Performed By: #### L 400.0001, .8 #### [facility] [address] [place], [address] Glucose [Mass/Vol] 130 mg/dL High 74-106 [facility] Comment on above: Result Comment: Fast ing Glucose result greater than or equal to 126 mg/dL suggests DIABETES MELLITUS per A.D.A. criteria. Performed By: #### L 400.0001, M100.678 #### [facility] [address] [place], [address] Potassium [Moles/Vol] 3.7 mmol/L Normal 3.5-5.1 [facility] Comment on above: Performed By: #### L 400.0001, M100.678 #### [facility] [address] [place], [address] Sodium [Moles/Vol] 138 mmol/L Normal 136-145 [facility] Comment on above: Performed By: #### L 400.0001, M100.678 #### [facility] [address] [place], [address] Urea nitrogen [Mass/Vol] 25 mg/dL High 7-18 [facility] Comment on above: Performed By: #### L 400.0001, M100.678 #### [facility] [address] [place], [address] Blood cultureOrdered By: Dominic Ledezma on 10-13-2024 Bacteria identified Cx Nom (Bld) No growth in 5 days. [facility] M100.019on 10-13-2024 M100.019 Negative Normal [facility] Comment on above: Performed By: #### L 501.4020 #### [facility] [address] [place], [address] [id number] By: Rasheed Ledezma on 10-13-2024 SARS-CoV-2 (COVID-19) RNA MEL+probe Ql (Unsp spec) [facility] 12 Lead EKGon 10-12-2024 12 Lead EKG [facility] [address] [place] [address] 12 Lead EKG 10/12/24 1428 MR#: [id number] Acct: [id number] Name: MARY CRANE Rep #: [id number] : 1940 84 From: Mario Hagen MD Attending Dr: Dr. Rasheed Ledezma MD Status: ADM IN Ordering Dr: Yuri Meier DO Date: 10/12/24 Location: [facility] Sex: F C Admitted: 10/12/24 Test Reason [...] consider anterolateral ischemia Abnormal ECG Confirmed by HIEU CERVANTES, MARIO ([id number]), editor map ZAID CALLAHAN ([id number]) on 10/14/2024 6:25:25 AM Referred By: Yuri Meier Confirmed By: MARIO HAGEN MD 10/14/2425 Date Mario Hagen MD CC: Dr. Yuri Meier DO; Dr. Rasheed Ledezma MD; Dr. Atul Harvey DO Signed Normal [facility] Basic Metabolic Profile (BMP )on 10-12-2024 BUN/CRE 16.7 RATIO Normal 10-20 [facility] Comment on above: Order Comment: 'TROP ' Serial specimen #1, #2 or #3: 1 Performed By: #### L 100.0100, L503.6005, L503.5510, L300.3900, L300.4310, L500.3400, L500.4050, L501.5200, L501.9520 #### [facility] [address] [place], [address] CA,Total 8.9 mg/dL Normal 8.5-10.1 [facility] Comment on above: Order Comment: 'TROP ' Serial specimen #1, #2 or #3: 1 Performed By: #### L 100.0100, L503.6005, L503.5510, L300.3900, L300.4310, L500.3400, L500.4050, L501.5200, L501.9520 #### [facility] [address] [place], [address] Chloride [Moles/Vol] 102 mmol/L Normal 98-107 [facility] Comment on above: Order Comment: 'TROP ' Serial specimen #1, #2 or #3: 1 Performed By: #### L 100.0100, L503.6005, L503.5510, L300.3900, L300.4310, L500.3400, L500.4050, L501.5200, L501.9520 #### [facility] [address] [place], [address] CO2 [Moles/Vol] 29.0 mmol/L Normal 21.0-32.0 [facility] Comment on above: Order Comment: 'TROP ' Serial specimen #1, #2 or #3: 1 Performed By: #### L 100.0100, L503.6005, L503.5510, L300.3900, L300.4310, L500.3400, L500.4050, L501.5200, L501.9520 #### [facility] [address] [place], [address] Creatinine [Mass/Vol] 1.50 mg/dL High 0.55-1.02 [facility] Comment on above: Order Comment: 'TROP ' Serial specimen #1, #2 or #3: 1 Result Comment: The validity of the calculated GFR GFRAA in patients over 70 years has not been determined. Clinical correlation is essential. Performed By: #### L 100.0100, L503.6005, L503.5510, L300.3900, L300.4310, L500.3400, L500.4050, L501.5200, L501.9520 #### [facility] [address] [place], [address] ECRCL 26.05 ml/min Normal [facility] Comment on above: Order Comment: 'TROP ' Serial specimen #1, #2 or #3: 1 Performed By: #### L 100.0100, L503.6005, L503.5510, L300.3900, L300.4310, L500.3400, L500.4050, L501.5200, L501.9520 #### [facility] [address] [place], [address] EST GFR - AA 42 mL/min Low >60 [facility] Comment on above: Order Comment: 'TROP ' Serial specimen #1, #2 or #3: 1 Result Comment: Afri can Ecuadorean GFR Calc Performed By: #### L 100.0100, L503.6005, L503.5510, L300.3900, L300.4310, L500.3400, L500.4050, L501.5200, L501.9520 #### [facility] [address] [place], [address] GAP 5 Normal 5-15 [facility] Comment on above: Order Comment: 'TROP ' Serial specimen #1, #2 or #3: 1 Performed By: #### L 100.0100, L503.6005, L503.5510, L300.3900, L300.4310, L500.3400, L500.4050, L501.5200, L501.9520 #### [facility] [address] [place], [place], [address] ([address]) GFR/1.73 sq M.predicted among non-blacks MDRD (S/P/Bld) [Vol rate/Area] 35 mL/min/{1.73_m2} Low >60 [facility] Comment on above: Order Comment: 'TROP ' Serial specimen #1, #2 or #3: 1 Result Comment: Non- GFR Calc Performed By: #### L 100.0100, L503.6005, L503.5510, L300.3900, L300.4310, L500.3400, L500.4050, L501.5200, L501.9520 #### [facility] [address] [place], [address] Glucose [Mass/Vol] 153 mg/dL High 74-106 [facility] Comment on above: Order Comment: 'TROP ' Serial specimen #1, #2 or #3: 1 Result Comment: Fast ing Glucose result greater than or equal to 126 mg/dL suggests DIABETES MELLITUS per A.D.A. criteria. Performed By: #### L 100.0100, L503.6005, L503.5510, L300.3900, L300.4310, L500.3400, L500.4050, L501.5200, L501.9520 #### [facility] [address] [place], [address] Potassium [Moles/Vol] 4.1 mmol/L Normal 3.5-5.1 [facility] Comment on above: Order Comment: 'TROP ' Serial specimen #1, #2 or #3: 1 Performed By: #### L 100.0100, L503.6005, L503.5510, L300.3900, L300.4310, L500.3400, L500.4050, L501.5200, L501.9520 #### [facility] [address] [place], [address] Sodium [Moles/Vol] 136 mmol/L Normal 136-145 [facility] Comment on above: Order Comment: 'TROP ' Serial specimen #1, #2 or #3: 1 Performed By: #### L 100.0100, L503.6005, L503.5510, L300.3900, L300.4310, L500.3400, L500.4050, L501.5200, L501.9520 #### [facility] [address] [place], [address] Urea nitrogen [Mass/Vol] 25 mg/dL High 7-18 [facility] Comment on above: Order Comment: 'TROP ' Serial specimen #1, #2 or #3: 1 Performed By: #### L 100.0100, L503.6005, L503.5510, L300.3900, L300.4310, L500.3400, L500.4050, L501.5200, L501.9520 #### [facility] [address] [place], [address] CBC W/Diff, Automatedon 01-0 -2024 Absolute Lymph 1.44 X10 3/uL Normal 0.83-4.51 [facility] Comment on above: Performed By: #### L 100.0100, L503.6005, L503.5510, L300.3900, L300.4310, L500.3400, L500.4050, L501.5200, L501.9520 #### [facility] [address] [place], [address] Absolute Neut 5.1 X10 3/uL Normal 2.0-7.7 [facility] Comment on above: Performed By: #### L 100.0100, L503.6005, L503.5510, L300.3900, L300.4310, L500.3400, L500.4050, L501.5200, L501.9520 #### [facility] [address] [place], [address] Basophils/100 WBC (Bld) 0.4 % Normal 0-1 [facility] Comment on above: Performed By: #### L 100.0100, L503.6005, L503.5510, L300.3900, L300.4310, L500.3400, L500.4050, L501.5200, L501.9520 #### [facility] [address] [place], [address] Eosinophils/100 WBC (Bld) 1.2 % Normal 0-5 [facility] Comment on above: Performed By: #### L 100.0100, L503.6005, L503.5510, L300.3900, L300.4310, L500.3400, L500.4050, L501.5200, L501.9520 #### [facility] [address] [place], [address] Erythrocyte distribution width (RBC) [Ratio] 15.8 % High 11.6-14.6 [facility] Comment on above: Performed By: #### L 100.0100, L503.6005, L503.5510, L300.3900, L300.4310, L500.3400, L500.4050, L501.5200, L501.9520 #### [facility] [address] [place], [address] Hematocrit (Bld) [Volume fraction] 44.7 % Normal 37-47 [facility] Comment on above: Performed By: #### L 100.0100, L503.6005, L503.5510, L300.3900, L300.4310, L500.3400, L500.4050, L501.5200, L501.9520 #### [facility] [address] [place], [address] Hemoglobin (Bld) [Mass/Vol] 14.1 g/dL Normal 12.0-15.0 [facility] Comment on above: Performed By: #### L 100.0100, L503.6005, L503.5510, L300.3900, L300.4310, L500.3400, L500.4050, L501.5200, L501.9520 #### [facility] [address] [place], [address] IG% 0.700 Normal 0.0-0.9 [facility] Comment on above: Result Comment: IG% - Immature Granulocytes (promyelocytes, myelocytes and metamyelocytes) > 1% indicates that a LEFT SHIFT is Present. Performed By: #### L 100.0100, L503.6005, L503.5510, L300.3900, L300.4310, L500.3400, L500.4050, L501.5200, L501.9520 #### [facility] [address] [place], [address] Lymphocytes/100 WBC (Bld) 19.6 % Normal 19-41 [facility] Comment on above: Performed By: #### L 100.0100, L503.6005, L503.5510, L300.3900, L300.4310, L500.3400, L500.4050, L501.5200, L501.9520 #### [facility] [address] [place], [address] MCH (RBC) [Entitic mass] 28.7 pg Normal 27.0-32.0 [facility] Comment on above: Performed By: #### L 100.0100, L503.6005, L503.5510, L300.3900, L300.4310, L500.3400, L500.4050, L501.5200, L501.9520 #### [facility] [address] [place], [address] MCHC (RBC) [Mass/Vol] 31.5 g/dL Low 32-36 [facility] Comment on above: Performed By: #### L 100.0100, L503.6005, L503.5510, L300.3900, L300.4310, L500.3400, L500.4050, L501.5200, L501.9520 #### [facility] [address] [place], [address] MCV (RBC) [Entitic vol] 91.0 fL Normal 81-99 [facility] Comment on above: Performed By: #### L 100.0100, L503.6005, L503.5510, L300.3900, L300.4310, L500.3400, L500.4050, L501.5200, L501.9520 #### [facility] [address] [place], [address] Monocytes/100 WBC (Bld) 8.7 % Normal 0-10 [facility] Comment on above: Performed By: #### L 100.0100, L503.6005, L503.5510, L300.3900, L300.4310, L500.3400, L500.4050, L501.5200, L501.9520 #### [facility] [address] [place], [address] Neutrophils/100 WBC (Bld) 69.4 % Normal 47-70 [facility] Comment on above: Performed By: #### L 100.0100, L503.6005, L503.5510, L300.3900, L300.4310, L500.3400, L500.4050, L501.5200, L501.9520 #### [facility] [address] [place], [address] Nucleated RBC (Bld) [#/Vol] 0 10*3/uL Normal 0-5 [facility] Comment on above: Performed By: #### L 100.0100, L503.6005, L503.5510, L300.3900, L300.4310, L500.3400, L500.4050, L501.5200, L501.9520 #### [facility] [address] [place], [address] Platelet mean volume (Bld) [Entitic vol] 11.3 fL Normal 6.2-12.0 [facility] Comment on above: Performed By: #### L 100.0100, L503.6005, L503.5510, L300.3900, L300.4310, L500.3400, L500.4050, L501.5200, L501.9520 #### [facility] [address] [place], [address] Platelets (Bld) [#/Vol] 144 10*3/uL Low 150-450 [facility] Comment on above: Performed By: #### L 100.0100, L503.6005, L503.5510, L300.3900, L300.4310, L500.3400, L500.4050, L501.5200, L501.9520 #### [facility] [address] [place], [address] RBC (Bld) [#/Vol] 4.91 10*6/uL Normal 4.2-5.4 [facility] Comment on above: Performed By: #### L 100.0100, L503.6005, L503.5510, L300.3900, L300.4310, L500.3400, L500.4050, L501.5200, L501.9520 #### [facility] [address] [place], [address] RDW SD 53.3 fl High 35.1-43.9 [facility] Comment on above: Performed By: #### L 100.0100, L503.6005, L503.5510, L300.3900, L300.4310, L500.3400, L500.4050, L501.5200, L501.9520 #### [facility] [address] [place], [address] WBC (Bld) [#/Vol] 7.3 10*3/uL Normal 4.4-11.0 [facility] Comment on above: Performed By: #### L 100.0100, L503.6005, L503.5510, L300.3900, L300.4310, L500.3400, L500.4050, L501.5200, L501.9520 #### [facility] [place], [address] CNOVon 10-12-2024 CNOV Office Visit (UCWSTR ) MARY CRANE ([id number]) 1940 F TXT Date Time Provider Department 10/12/24 1:15 PM RICHARD PINEDA [facility] During your visit today, we recorded the following information about you: Temperature Pulse Respiration Blood pressure 102 degrees 132/minute 30/minute 122/80 Weight 71.2 kg Richard Pineda, ALLISON.EPOXY SPECIALIST 10/12/2024 1:08 PM Signed Subjective HPI Mary Crane is a 84 [...] multiple adenomatous polyps, repeat in 3 yrs ESOPHAGOGASTRODUODENO SCOPY TRANSORAL DIAGNOSTIC 12/21/2014 EGD LAPAROSCOPY SURG CHOLECYSTECTOMY [...] once da (more content not included)... Normal [facility] CTA Chest W/WO Contraston CTA Chest W/WO Contrast [facility] [address] [place] [address] CTA Chest W/WO Contrast MR#: [id number] Acct: [id number] Name: MARY CRANE Rep #: [id number] : 1940 F 84 From: Con Rutherford DO PCP: Dr. Atul Harvey, DO Status: REG ER Study: CTA Chest W/WO Contrast Date of Exam: 10/12/24 Exam# [id number] Ordering Dr: Yuri Meier DO [id number] STUDY: CTA CHEST REASON FOR EXAM: Female, [...] 16:15 EST Reading Location ID and State: [facility] / [place] Tel [phone], Service support , CC: Dr. Yuri Meier DO; Dr. Atul Harvey DO Medical Receptionist Biller: Signed Normal [facility] Chest 1 View (Portable)on Chest 1 View (Portable) [facility] Services 14 [place] [address] Chest 1 View (Portable) MR#: [id number] Acct: [id number] Name: MARY CRANE Rep #: [id number] : 1940 F 84 From: Dimitri soares MD PCP: Dr. Atul Harvey DO Status: REG ER Study: Chest 1 View (Portable) Date of Exam: 10/12/24 Exam# [id number] Ordering Dr: Yuri Meier DO [id number] INDICATION: cough EXAMINATION/TECHNIQUE : X-RAY - XR Chest 1 View COMPARISON: [...] Yuri Meier DO; Dr. Atul Harvey DO Medical Receptionist Biller: Signed Normal [facility] Echo Complete W/ Contraston 10-12-2024 Echo Complete W/ Contrast [facility] Cardiovascular Services [address] [place] [address] Echo Complete W/ Contrast 10/13/24 0914 MR#: [id number] Acct: [id number] Name: MARY CRANE Rep #: [id number] : 1940 84 From: Mario Hagen MD Attending Dr: Dr. Rasheed Ledezma MD Status: ADM IN Ordering Dr: Doug Tubbs DO Date: 10/12/24 Location: U Sex: F C Admitted: 10/12/24 Version 2 [...] DO; Dr. Atul Harvey DO Date Dictated: 10/13/2414 Date Transcribed: 10/13/24 1218 Medical Receptionist Biller: Signed Normal [facility] Emergency Department Summary on 10-12-2024 Emergency Department Summary [facility] Medical Records Department [address] [place] [address] Emergency Department Summary 10/12/24 MR#: [id number] Acct: [id number] Name: MARY CRANE Rep #: [id number] : 1940 84 From: Yuri Meier DO PCP: Dr. Atul Harvey DO Status:ADM IN Location: [place] [address] HPI History of Present Illness Chief Complaint: Cough [...] conditions. She does not wear home oxygen. [facility] Medical History (Updated 10/12/24 @ 15:32 by [...] 10 mg PO ACHS 06/29/15 Unknown History hydrocodone-acetamino phen 5-325mg 1 tab PO Q4H PRN PRN [...] Effort Respirat (more content not included)... Normal [facility] H AND P Exam - Hospitaliston 10-12-2024 H&P Exam - Hospitalist [facility] Medical Records Department [address] [place] [address] H P Exam - Hospitalist 10/12/24 1644 MR#: [id number] Acct: [id number] Name: MARY CRANE Rep #: [id number] : 1940 84 From: Doug Tubbs DO PCP: Dr. Atul Harvey DO Status:ADM IN Location: [place] [id number] HPI - General General Date of Admission: [...] the hospitalist service was contacted for admission. [facility] Medical History Hypertension Rheumatoid arthritis Chronic [...] 10 mg PO ACHS 06/29/15 Unknown History hydrocodone-acetamino phen 5-325mg 1 tab PO Q4H PRN PRN [...] Ox 91 (more content not included)... [facility] Influ[facility] virus A and B and SARS-CoV-2 (COVID-19) and Respiratory syncytial virus RNAOrdered By: Yuri Meier on 10-12-2024 SARS-CoV-2 (COVID-19) RNA MEL+probe Ql (Unsp spec) RSV Abnormal [facility] L501.4020on 10-12-2024 TROPONIN-I HS 42 pg/mL Normal 3.0-54.0 [facility] Comment on above: Order Comment: Comme nts: SPECIMEN #3 'TROP' Serial specimen #1, #2 or #3: 3 Result Comment: Plea se Note: New Test Units and Gender Specific Reference Ranges. For more information see Policy Stat Procedure [place] High Sensitivity Troponin (TNIH) and attachments. Performed By: #### L 501.4020 #### [facility] Laboratory [address] [place], [address] TROPONIN-I HS 36 pg/mL Normal 3.0-54.0 [facility] Comment on above: Order Comment: Comme nts: SPECIMEN #2'TROP' Serial specimen #1, #2 or #3: 2 Result Comment: Plea se Note: New Test Units and Gender Specific Reference Ranges. For more information see Policy Stat Procedure [place] High Sensitivity Troponin (TNIH) and attachments. Performed By: #### L 400.0001, M100.678 #### [facility] [address] [place], [address] TROPONIN-I HS 33 pg/mL Normal 3.0-54.0 [facility] Comment on above: Order Comment: 'TROP ' Serial specimen #1, #2 or #3: 1 Result Comment: Plea se Note: New Test Units and Gender Specific Reference Ranges. For more information see Policy Stat Procedure [place] High Sensitivity Troponin (TNIH) and attachments. Performed By: #### L 100.0100, L503.6005, L503.5510, L300.3900, L300.4310, L500.3400, L500.4050, L501.5200, L501.9520 #### [facility] [address] [place], [address] M100.678on 10-12-2024 M100.678 Pending SARS-CoV-2 (COVID 19) Negative INFLUENZA A Negative INFLUENZA B Negative RSV PCR A Positive A RSV Normal [facility] Comment on above: Performed By: #### L 400.0001, M100.678 #### [facility] [place], [address] Troponin IOrdered By: Doug centeno on 10-12-2024 Troponin I High Sensitivity 42 pg/mL 3.0-54.0 [facility] Comment on above: Please Note: New Alejandra t Units and Gender Specific Reference Ranges. For more information see Policy Stat Procedure [place] High Sensitivity Troponin (TNIH) and attachments. [facility] ([id number]) 1940 F TXT Date Time Provider Department 10/11/24 [facility] During your visit today, we recorded the [...] Incisional he (more content not included)... [facility] MARY CRANE ([id number]) 1940 F TXT Date Time Provider Department 10/06/24 [facility] During your visit today, we recorded the [...] review and advise. JOSE Smith Jordan L, 10/07/2024 7:05 AM Signed The following approved [...] Assessed Reason for Visit: Medication Question [1478] Order(s):cholecalcife rol, Vitamin D3, (VITAMIN D3) 1,250 mcg (50,000 [...] SYNDROME [G56.00] (more content not included)... Normal [facility] CNOVon 09-19-2024 CNOV Office Visit (ORTHWS ) MARY CRANE ([id number]) 1940 F TXT Date Time Provider Department 09/19/24 3:00 PM PHUC MARTI During your visit today, we recorded the following information about you: Phuc Marti MD 10/12/2024 4:32 PM Signed Phuc Marti MD Department of Orthopaedics Orthopaedics [address] [facility] [address] Dept: [phone] Dept September 19, 2024 CHIEF COMPLAINT: New [...] multiple adenomatous polyps, repeat in 3 yrs ESOPHAGOGASTRODUODENO SCOPY TRANSORAL DIAGNOSTIC 12/21/2014 EGD LAPAROSCOPY SURG CHOLECYSTECTOMY [...] daily. Chol (more content not included)... Normal [facility] 08-31-2024 [facility] ([id number]) 1940 F TXT Date Time Provider Department 08/31/24 [facility] During your visit today, we recorded the [...] legs [R60.0] (more content not included)... Normal [facility] CNOVon 08-22-2024 CNOV Office Visit (FAMPWS ) MARY CRANE ([id number]) 1940 F TXT Date Time Provider Department 08/22/24 9:40 AM [facility] your visit today, we recorded the [...] - 4.200 mIU/L Final RA, seen by [facility] for care, taking Otezla as prescribed HTN, well controlled, taking medications as prescribed. Sees Welding Operator routinely, Only occasional palpitations and heart racing symptoms as well as dyspnea if she is exerting up an incline such as walking up her driveway after getting her mail, no chest pressure or Pain . Sees Welding Operator PAST MEDICAL HISTORY Diagnosis Date Advance care [...] multiple adenomatous polyps, repeat in 3 yrs ESOPHAGOGASTRODUODENO SCOPY TRANSORAL DIAGNOSTIC 12/21/2014 EGD LAPAROSCOPY SURG CHOLECYSTECTOMY [...] (Patient t (more content not included)... Normal [facility] XR WRIST 3V PA/LAT/OBL LTon [...] bony erosions. IMPRESSION: [facility] degenerative changes. Medical Receptionist Biller: PSCB Transcribe Date/Time: Aug 26 2024 1:33P Dictated by : DEA REYNOLDS MD This examination was interpreted and the report reviewed and electronically signed by: DEA REYNOLDS MD on Aug 26 2024 1:34PM EST [id number] Normal [facility] 25(OH)D3 [facility] 25-hydroxyvitamin D3 [Mass/Vol] 46.3 ng/mL Normal 31.0-80.0 [facility] Comment on above: Order Comment: Adelita austin Type: BLOOD SPECIMENOrdering Facility: [facility] Address: [address] [place] [address] Result Comment: Clas sification of 25 [place] Vitamin D status: Deficiency/Insufficiency: < or = 30 ng/ml. Sufficiency/Optimal Levels: 31-80 ng/mL Toxicity: > 100 ng/mL. Test performed by chemiluminescent immunoassay. Performed By: #### 1 989-3 ####[facility] [id number] [place] [address] [place] CBC panel Auto (Bld)on 08-16 Erythrocyte distribution width (RBC) [Ratio] 13.4 % Normal 11.5-15.0 [facility] Comment on above: Order Comment: Adelita austin Type: BLOOD SPECIMEN [facility] Address: [address] [place] [address] Performed By: #### 2 4323-8, 2132-9 #### [facility] CLIA [id number] [address] [place] [address] [place] Hematocrit (Bld) [Volume fraction] 36.1 % Normal 36.0-46.0 [facility] Comment on above: Order Comment: Speci men Type: BLOOD SPECIMEN [facility] Address: [address] [place] [address] Performed By: #### 2 432-8, 2132-06 #### [facility] CLIA [id number] [address] [place] [address] [place] Hemoglobin (Bld) [Mass/Vol] 11.4 g/dL Low 11.5-15.5 [facility] Comment on above: Order Comment: Speci men Type: BLOOD SPECIMEN [facility] Address: [address] [place] [address] Performed By: #### 2 432-8, 2132-06 #### [facility] CLIA [id number] [address] [place] [address] [place] MCH (RBC) [Entitic mass] 29.2 pg Normal 26.0-34.0 [facility] Comment on above: Order Comment: Speci men Type: BLOOD SPECIMEN [facility] Address: [address] [place] [address] Performed By: #### 2 432-8, 2132-06 #### [facility] CLIA [id number] [address] [place] [address] [place] MCHC (RBC) [Mass/Vol] 31.6 g/dL Normal 30.5-36.0 [facility] Comment on above: Order Comment: Speci men Type: BLOOD SPECIMEN [facility] Address: [address] [place] [address] Performed By: #### 2 432-8, 2132-06 #### [facility] CLIA [id number] [address] [place] [address] [place] MCV (RBC) [Entitic vol] 92.3 fL Normal 80.0-100.0 [facility] Comment on above: Order Comment: Speci men Type: BLOOD SPECIMEN [facility] Address: [address] [place] [address] Performed By: #### 2 432-8, 2132-06 #### [facility] CLIA [id number] [address] [place] [address] [place] Nucleated RBC (Bld) [#/Vol] 10*3/uL Normal <0.01 [facility] Comment on above: Order Comment: Speci men Type: BLOOD SPECIMEN [facility] Address: [address] [place] [address] Performed By: #### 2 432-8, 2132-06 #### [facility] CLIA [id number] [address] [place] [address] [place] Platelet mean volume (Bld) [Entitic vol] 11.2 fL Normal 9.0-12.7 [facility] Comment on above: Order Comment: Speci men Type: BLOOD SPECIMEN [facility] Address: [address] [place] [address] Performed By: #### 2 8, 2132-06 #### [facility] CLIA [id number] [address] [place] [address] [place] Platelets (Bld) [#/Vol] 165 10*3/uL Normal 150-400 [facility] Comment on above: Order Comment: Speci men Type: BLOOD SPECIMEN [facility] Address: [address] [place] [address] Performed By: #### 2 4323-8, 2132-06 #### [facility] CLIA [id number] [address] [place] [address] [place] RBC (Bld) [#/Vol] 3.91 10*6/uL Normal 3.90-5.20 [facility] Comment on above: Order Comment: Speci men Type: BLOOD SPECIMEN [facility] Address: [address] [place], [place] [address] Performed By: #### 2 4323-8, 2132-06 #### [facility] CLIA [id number] [address] [place] [address] [place] WBC (Bld) [#/Vol] 6.35 10*3/uL Normal 3.70-11.00 [facility] Comment on above: Order Comment: Speci men Type: BLOOD SPECIMEN [facility] Address: [address] [place] [address] Performed By: #### 2 4323-8, 2132-06 #### [facility] CLIA [id number] [address] [place] [address] [place] Comprehensive metabolic 2000 panelon 08-16-2024 Albumin [Mass/Vol] 3.7 g/dL Low 3.9-4.9 [facility] Comment on above: Order Comment: Speci men Type: BLOOD SPECIMEN [facility] Address: [address] [place] [address] Performed By: #### 2 4323-8, 2132-06 #### [facility] CLIA [id number] [address] [place] [address] [place] ALP [Catalytic activity/Vol] 102 U/L Normal 34-123 [facility] Comment on above: Order Comment: Speci men Type: BLOOD SPECIMEN [facility] Address: [address] [place], [place] [address] Performed By: #### 2 4323-8, 2132-06 #### [facility] CLIA [id number] [address] [place] [address] [place] ALT [Catalytic activity/Vol] 27 U/L Normal 7-38 [facility] Comment on above: Order Comment: Speci men Type: BLOOD SPECIMEN [facility] Address: [address] [place] [address] Performed By: #### 2 4323-8, 2132-06 #### [facility] CLIA [id number] [address] [place] [id number] [place] Anion gap [Moles/Vol] 12 mmol/L Normal 8-15 [facility] Comment on above: Order Comment: Speci men Type: BLOOD SPECIMEN [facility] Address: [address] [place], [place] [address] Performed By: #### 2 43212-17, 2132-06 #### [facility] CLIA [id number] [address] [place] [address] [place] AST [Catalytic activity/Vol] 28 U/L Normal 13-35 [facility] Comment on above: Order Comment: Speci men Type: BLOOD SPECIMEN [facility] Address: [address] [place] [address] Performed By: #### 2 4328, 2132-06 #### [facility] CLIA [id number] [facility] [place] [address] [place] Bilirubin [Mass/Vol] 0.8 mg/dL Normal 0.2-1.3 [facility] Comment on above: Order Comment: Speci men Type: BLOOD SPECIMEN [facility] Address: [address] [place], [place] [address] Performed By: #### 2 4328, 2132-06 #### [facility] CLIA [id number] [address] [place] [id number] [place] Calcium [Mass/Vol] 9.1 mg/dL Normal 8.5-10.2 [facility] Comment on above: Order Comment: Speci men Type: BLOOD SPECIMEN [facility] Address: [address] [place], [place] [address] Performed By: #### 2 4323-8, 2132-06 #### [facility] CLIA [id number] [address] [place] [address] [place] Chloride [Moles/Vol] 105 mmol/L Normal 98-107 [facility] Comment on above: Order Comment: Speci men Type: BLOOD SPECIMEN [facility] Address: [address] [place] [address] Performed By: #### 2 4323-8, 2132-06 #### [facility] CLIA [id number] [address] [place] [address] [place] CO2 [Moles/Vol] 23 mmol/L Normal 22-30 [facility] Comment on above: Order Comment: Speci men Type: BLOOD SPECIMEN [facility] Address: [address] [place] [address] Performed By: #### 2 4323-8, 2132-06 #### [facility] CLIA [id number] [address] [place] [address] [place] Creatinine [Mass/Vol] 1.03 mg/dL High 0.58-0.96 [facility] Comment on above: Order Comment: Speci men Type: BLOOD SPECIMEN [facility] Address: [address] [place] [address] Performed By: #### 2 4323-8, 2132-06 #### [facility] CLIA [id number] [address] [place] [address] [place] Creatinine and Glomerular filtration rate.predicted panel (S/P/Bld) 54 mL/min/1.73m??? Low >=60 [facility] Comment on above: Order Comment: Speci men Type: BLOOD SPECIMEN [facility] Address: [address] [place] [address] Result Comment: Ely mated Glomerular Filtration Rate [...] reflect actual GFR. Performed By: #### 2 43212-17, 2132-06 #### [facility] CLIA [id number] [address] [place] [address] [place] Glucose [Mass/Vol] 117 mg/dL High 74-99 [facility] Comment on above: Order Comment: Adelita men Type: BLOOD SPECIMEN [facility] Address: [address] [place] [address] Result Comment: The [place] Diabetes Association (ADA) provides guidance for cutoff [...] Standards of Medical Care in Diabetes 2016, [place] [employer] Association. Diabetes Care. 2016.39(Suppl 1). Performed By: #### 2 43212-17, 2132-06 #### [facility] CLIA [id number] [address] [place] [address] [place] Potassium [Moles/Vol] 3.9 mmol/L Normal 3.7-5.1 [facility] Comment on above: Order Comment: Adelita austin Type: BLOOD SPECIMEN [facility] Address: [address] [place] [address] Performed By: #### 2 43212-17, 2132-06 #### [facility] CLIA [id number] [address] [place] [address] [place] Protein [Mass/Vol] 7.2 g/dL Normal 6.3-8.0 [facility] Comment on above: Order Comment: Speci men Type: BLOOD SPECIMEN [facility] Address: [address] [place] [address] Performed By: #### 2 4323-8, 2132-06 #### [facility] CLIA [id number] [address] [place] [address] [place] Sodium [Moles/Vol] 140 mmol/L Normal 136-144 [facility] Comment on above: Order Comment: Speci men Type: BLOOD SPECIMEN [facility] Address: [address] [place] [address] Performed By: #### 2 4323-8, 2132-06 #### [facility] CLIA [id number] [address] [place] [address] [place] Urea nitrogen [Mass/Vol] 14 mg/dL Normal 7-21 [facility] Comment on above: Order Comment: Speci men Type: BLOOD SPECIMEN [facility] Address: [address] [place] [address] Performed By: #### 2 4323-8, 2132-06 #### [facility] CLIA [id number] [address] [place] [address] [place] HbA1c (Bld)on 08-16-2024 Average glucose Estimated from glycated hemoglobin (Bld) [Mass/Vol] 123 mg/dL Normal [facility] Comment on above: Order Comment: Speci men Type: BLOOD SPECIMENOrdering Facility: [facility] Address: [address] [place] [address] Result Comment: eAG: (Estimated average glucose) is a calculated value from HgbA1c and is client representative of the average blood glucose level in the last 2-3 month period. Performed By: #### 5 5454-3 ####[facility] [id number] [place] [address] [place] HbA1c (Bld) [Mass fraction] 5.9 % High 4.3-5.6 [facility] Comment on above: Order Comment: Speci men Type: BLOOD SPECIMENOrdering Facility: [facility] Address: [address] [place] [address] Result Comment: [place] Diabetes Association guidelines indicate that patients with HgbA1c in the range 5.7-6.4% are at increased risk for development of diabetes, and intervention by lifestyle modification may be beneficial. HgbA1c greater or equal to 6.5% is considered diagnostic of diabetes. Performed By: #### 5 5454-3 ####[facility] [id number] [facility] [place] [address] [place] Lipid 1996 panelon 4 Cholesterol [Mass/Vol] 71 mg/dL Normal <200 [facility] Comment on above: Order Comment: Adelita austin Type: BLOOD SPECIMEN [facility] Address: [address] [place] [address] Result Comment: <200 mg/dL, Desirable 200-239 mg/dL, Borderline high >239 mg/dL, High Performed By: #### 5 8410-2 #### [facility] CLIA [id number] [address] [place] [address] [place] Cholesterol in HDL [Mass/Vol] 31 mg/dL Low >39 [facility] Comment on above: Order Comment: Adelita geovanna Type: BLOOD SPECIMEN [facility] Address: [address] [place] [address] Result Comment: 40-5 9 mg/dL, Acceptable >59 mg/dL, High: Negative risk factor for coronary heart disease <40 mg/dL, Low: Positive risk factor for coronary heart disease Performed By: #### 5 8410-2 #### [facility] CLIA [id number] [address] [place] [address] [place] Cholesterol in LDL [Mass/Vol] 23 mg/dL Normal <100 [facility] Comment on above: Order Comment: Javadbenjamin austin Type: BLOOD SPECIMEN [facility] Address: [address] [place] [address] Result Comment: <100 mg/dL, Optimal 100-129 mg/dL, Near optimal/above optimal 130-159 mg/dL, Borderline high 160-189 mg/dL, High >189 mg/dL, Very high Secondary prevention optimal LDL Cholesterol levels are recommended to be < 70 mg/dL Performed By: #### 5 8410-2 #### [facility] CLIA [id number] [address] [place] [address] [place] Cholesterol in LDL/Cholesterol in HDL [Mass ratio] 0.74 {ratio} Normal <2.54 [facility] Comment on above: Order Comment: Adelita austin Type: BLOOD SPECIMEN [facility] Address: [address] [place] [address] Result Comment: Deven mendez: 1. National Cholesterol Education Program ATP III Guideline At-A-Glance Quick Desk Reference: National Heart, Lung, and Blood [place]. National Institutes of Health. 2001: NIH Publication No. 01-3305. 2. An International Atherosclerosis Society position paper: global recommendations for the management of dyslipidemia: executive summary, Atherosclerosis. 2014: 232(2):410-413. Performed By: #### 5 8410-2 #### [facility] CLIA [id number] [address] [place] [address] [place] Cholesterol in VLDL [Mass/Vol] 17 mg/dL Normal <30 [facility] Comment on above: Order Comment: Adelita austin Type: BLOOD SPECIMEN [facility] Address: [address] [place] [address] Performed By: #### 5 8410-2 #### [facility] CLIA [id number] [address] [place], [place] [address] [place] Cholesterol non HDL [Mass/Vol] 40 mg/dL Normal <130 [facility] Comment on above: Order Comment: Adelita austin Type: BLOOD SPECIMEN [facility] Address: [address] [place] [address] Result Comment: <130 mg/dL, Optimal 130-159 mg/dL, Near optimal/above optimal 160-189 mg/dL, Borderline high 190-219 mg/dL, High >219 mg/dL, Very high Secondary prevention optimal non HDL Cholesterol levels are recommended to be <100 mg/dL Performed By: #### 5 8410-2 #### [facility] CLIA [id number] [address] [place] [address] [place] Cholesterol.total/Jessica sterol in HDL [Mass ratio] 2.29 {ratio} Normal <5.10 [facility] Comment on above: Order Comment: Speci men Type: BLOOD SPECIMEN [facility] Address: [address] [place] [address] Performed By: #### 5 8410-2 #### [facility] CLIA [id number] [address] [place] [address] [place] FASTING TIME 12 hrs Normal [facility] Comment on above: Order Comment: Speci men Type: BLOOD SPECIMEN Ordering Facility: [facility] Address: [address] [place] [address] Performed By: #### 5 8410-2 #### [facility] CLIA [id number] [address] [place] [address] [place] Triglyceride [Mass/Vol] 84 mg/dL Normal <150 [facility] Comment on above: Order Comment: Speci men Type: BLOOD SPECIMEN Ordering Facility: [facility] Address: [address] [place] [address] Result Comment: <150 mg/dL, Normal 150-199 mg/dL, Borderline high 200-499 mg/dL, High >499 mg/dL, Very high Performed By: #### 5 8410-2 #### [facility] CLIA [id number] [address] [place] [address] [place] T3 SerPl-mCncon 08-16-2024 T3 [Mass/Vol] 117 ng/dL Normal 79-165 [facility] Comment on above: Order Comment: Speci men Type: BLOOD SPECIMEN Ordering Facility: [facility] Address: [address] [place] [address] Performed By: #### 5 8410-2 #### [facility] CLIA [id number] [address] [place] [address] [place] T4 Free SerPl-mCncon 024 Free T4 [Mass/Vol] 1.4 ng/dL Normal 0.9-1.7 [facility] Comment on above: Order Comment: Speci men Type: BLOOD SPECIMEN Ordering Facility: [facility] Address: [address] [place] [address] Performed By: #### 5 8410-2 #### [facility] CLIA [id number] [address] [place] [address] [place] TSH SerPl-aCncon 08-16-2024 TSH Qn 2.460 m[IU]/L Normal 0.270-4.200 [facility] Comment on above: Order Comment: Speci men Type: BLOOD SPECIMEN Ordering Facility: [facility] Address: [address] [place] [address] Performed By: #### 5 8410-2 #### [facility] CLIA [id number] [address] [place] [address] [place] Vit B12 SerPl-mCncon 024 Cobalamin (Vitamin B12) [Mass/Vol] 1404 pg/mL High 232-1245 [facility] Comment on above: Order Comment: Speci men Type: BLOOD SPECIMEN Ordering Facility: [facility] Address: [address] [place] [address] Performed By: #### 2 4323-8, 2132-9 #### [facility] CLIA [id number] [address] [place] [address] [place] Sarah 08-12-2024 CNPN Telephone (FAMPWS) JAMELMARY CRAWFORD ([id number]) 1940 F TXT Date Time Provider Department 08/12/24 ATUL HARVEY During your visit today, we recorded the following information about you: Lulú Tang MA 08/12/2024 11:47 AM Signed Pt request lab orders. Pended basic labs. Please file. DEBORAH Beard M Robin, JOSE 08/15/2024 8:32 AM Signed Pt asking office to call her, once orders are in the lab, to let her know. [phone] Cecilia Sky PA-C 08/15/2024 9:47 AM Signed [...] fasting glucose) [R73.01] Order(s):T3 [SQT3] Order #: [id number] FUTURE T4 FREE/FREE THYROXINE [SQFT4] Order #: [id number] FUTURE THYROID STIMULATING HORMONE [SQTSH] Order #: [id number] FUTURE VITAMIN B12 [SQB12] Order #: [id number] FUTURE VITAMIN D 25 HYDROXY [SQVITD] Order #: [id number] FUTURE HEMOGLOBIN A1C [ODQKV7M] Order #: [id number] FUTURE LIPID PANEL BASIC [SQLIPB] Order #: [id number] FUTURE COMPLETE BLOOD COUNT [SQCBC] Order #: [id number] FUTURE COMPREHENSIVE METABOLIC PANEL [SQCMP] Order #: [id number] FUTURE Prescriptions as of 08/15/2024 - nystatin [...] [M65.849,*10/17/2005 02/24/2020 (more content not included)... Normal [facility] CNOVon 08-01-2024 CNOV Office Visit (CAWSTR ) MARY CRANE ([id number]) 1940 F TXT Date Time Provider Department 08/01/24 10:40 AM RASHEED BARRIOS During your visit today, we recorded the following information about you: Temperature Pulse Respiration Blood pressure 97.3 degrees 52/minute 18/minute 124/75 Weight 71.9 kg Rasheed Barrios MD 08/01/2024 11:30 AM Signed [facility]AL [facility]IOLOGY Cardiology ([facility]) [address] [facility] [id number] OUTPATIENT VISIT DATE 08/01/2024 PRIMARY CARE PHYSICIAN: Atul Harvey [address] [place] [address] HISTORY OF PRESENT ILLNESS: Ms. Crane is [...] multiple adenomatous polyps, repeat in 3 yrs ESOPHAGOGASTRODUODENO SCOPY TRANSORAL DIAGNOSTIC 12/21/2014 EGD LAPAROSCOPY SURG CHOLECYSTECTOMY [...] Take 1 (more content not included)... Normal [facility] ECG COMPLETEon 08-01-2024 Atrial Rate 66 BPM [facility] Calculated R [place] 2 degrees [facility] Calculated T [place] 21 degrees [facility] QRS Duration 80 ms [facility] QT Interval 422 ms [facility] QTC Calculation (Bazett) 442 ms [facility] Ventricular Rate 66 BPM [facility] SINUS RHYTHM 2ND DEGREE AV BLOCK (MOBITZ I) NONSPECIFIC ST AND T WAVE ABNORMALITY ABNORMAL ECG Confirmed by VON BURNS DO ([id number]) on 08/01/2024 2:44:29 PM [facility] NAME : MARY CRANE PID : [id number] : 1940 Gender : Female Race : ORD : Procedure Date : Aug 01 2024 10:43:57 Edit Date : Aug 01 2024 14:44:54 Diagnosis: SINUS RHYTHM 2ND DEGREE AV BLOCK (MOBITZ I) NONSPECIFIC ST AND T WAVE ABNORMALITY ABNORMAL ECG Confirmed by VON BURNS DO ([id number]) on 08/01/2024 2:44:29 PM Test Reason : Location : 136 : [facility] Overread By : VON BURNS DO Edited By : VON BURNS DO Referred By : RASHEED BARRIOS Acquired by : Christel Waite [facility] [id number] 08-01-2024 ECG01 Ventricular Rate : 6 6 BPM Atrial Rate : 66 BPM QRS Duration : 80 ms Q-T Interval : 422 ms QTC Calculation(Bazett) : 442 ms Calculated R [place] : 2 degrees Calculated T [place] : 21 degrees SINUS RHYTHM 2ND DEGREE AV BLOCK (MOBITZ I) NONSPECIFIC ST AND T WAVE ABNORMALITY ABNORMAL ECG Confirmed by VON BURNS DO ([id number]) on 08/01/2024 2:44:29 PM NAME : MARY CRANE PID : [id number] : 1940 Gender : Female Race : ORD : Procedure Date : Aug 01 2024 10:43:57 Edit Date : Aug 01 2024 14:44:54 Diagnosis: SINUS RHYTHM 2ND DEGREE AV BLOCK (MOBITZ I) NONSPECIFIC ST AND T WAVE ABNORMALITY ABNORMAL ECG Confirmed by VON BURNS DO ([id number]) on 08/01/2024 2:44:29 PM Test Reason : Location : 136 : [facility] Overread By : VON BURNS DO Edited By : VON BURNS DO Referred By : RASHEED BARRIOS Acquired by : Chritsel Waite Normal [facility] CBC W/Diff, Automatedon 09-2 -2023 Absolute Lymph 2.13 X10 3/uL Normal 0.83-4.51 [facility] Comment on above: Performed By: #### L 100.0100, L503.6005, L503.5510, L300.3900, L300.4310, L500.3400, L500.4050, L501.5200, L501.9520 #### [facility] [address] [place], [address] Absolute Neut 4.3 X10 3/uL Normal 2.0-7.7 [facility] Comment on above: Performed By: #### L 100.0100, L503.6005, L503.5510, L300.3900, L300.4310, L500.3400, L500.4050, L501.5200, L501.9520 #### [facility] [address] [place], [address] Basophils/100 WBC (Bld) 0.9 % Normal 0-1 [facility] Comment on above: Performed By: #### L 100.0100, L503.6005, L503.5510, L300.3900, L300.4310, L500.3400, L500.4050, L501.5200, L501.9520 #### [facility] [address] [place], [address] Eosinophils/100 WBC (Bld) 2.4 % Normal 0-5 [facility] Comment on above: Performed By: #### L 100.0100, L503.6005, L503.5510, L300.3900, L300.4310, L500.3400, L500.4050, L501.5200, L501.9520 #### [facility] [address] [place], [place], [id number] (056) Erythrocyte distribution width (RBC) [Ratio] 13.1 % Normal 11.6-14.6 [facility] Comment on above: Performed By: #### L 100.0100, L503.6005, L503.5510, L300.3900, L300.4310, L500.3400, L500.4050, L501.5200, L501.9520 #### [facility] [address] [place], [address] (614) Hematocrit (Bld) [Volume fraction] 39.9 % Normal 37-47 [facility] Comment on above: Performed By: #### L 100.0100, L503.6005, L503.5510, L300.3900, L300.4310, L500.3400, L500.4050, L501.5200, L501.9520 #### [facility] [address] [place], [address] (042) Hemoglobin (Bld) [Mass/Vol] 12.6 g/dL Normal 12.0-15.0 [facility] Comment on above: Performed By: #### L 100.0100, L503.6005, L503.5510, L300.3900, L300.4310, L500.3400, L500.4050, L501.5200, L501.9520 #### [facility] [address] [place], [place], [phone] (295 IG% 0.300 Normal 0.0-0.9 [facility] Comment on above: Result Comment: IG% - Immature Granulocytes (promyelocytes, myelocytes and metamyelocytes) > 1% indicates that a LEFT SHIFT is Present. Performed By: #### L 100.0100, L503.6005, L503.5510, L300.3900, L300.4310, L500.3400, L500.4050, L501.5200, L501.9520 #### [facility] [address] [place], [address] Lymphocytes/100 WBC (Bld) 28.7 % Normal 19-41 [facility] Comment on above: Performed By: #### L 100.0100, L503.6005, L503.5510, L300.3900, L300.4310, L500.3400, L500.4050, L501.5200, L501.9520 #### [facility] [address] [place], [address] MCH (RBC) [Entitic mass] 29.2 pg Normal 27.0-32.0 [facility] Comment on above: Performed By: #### L 100.0100, L503.6005, L503.5510, L300.3900, L300.4310, L500.3400, L500.4050, L501.5200, L501.9520 #### [facility] [address] [place], [address] MCHC (RBC) [Mass/Vol] 31.6 g/dL Low 32-36 [facility] Comment on above: Performed By: #### L 100.0100, L503.6005, L503.5510, L300.3900, L300.4310, L500.3400, L500.4050, L501.5200, L501.9520 #### [facility] [address] [place], [address] MCV (RBC) [Entitic vol] 92.6 fL Normal 81-99 [facility] Comment on above: Performed By: #### L 100.0100, L503.6005, L503.5510, L300.3900, L300.4310, L500.3400, L500.4050, L501.5200, L501.9520 #### [facility] [address] [place], [address] Monocytes/100 WBC (Bld) 9.6 % Normal 0-10 [facility] Comment on above: Performed By: #### L 100.0100, L503.6005, L503.5510, L300.3900, L300.4310, L500.3400, L500.4050, L501.5200, L501.9520 #### [facility] [address] [place], [address] Neutrophils/100 WBC (Bld) 58.1 % Normal 47-70 [facility] Comment on above: Performed By: #### L 100.0100, L503.6005, L503.5510, L300.3900, L300.4310, L500.3400, L500.4050, L501.5200, L501.9520 #### [facility] [address] [place], [address] Nucleated RBC (Bld) [#/Vol] 0 10*3/uL Normal 0-5 [facility] Comment on above: Performed By: #### L 100.0100, L503.6005, L503.5510, L300.3900, L300.4310, L500.3400, L500.4050, L501.5200, L501.9520 #### [facility] [address] [place], [address] Platelet mean volume (Bld) [Entitic vol] 11.8 fL Normal 6.2-12.0 [facility] Comment on above: Performed By: #### L 100.0100, L503.6005, L503.5510, L300.3900, L300.4310, L500.3400, L500.4050, L501.5200, L501.9520 #### [facility] [address] [place], [address] Platelets (Bld) [#/Vol] 147 10*3/uL Low 150-450 [facility] Comment on above: Performed By: #### L 100.0100, L503.6005, L503.5510, L300.3900, L300.4310, L500.3400, L500.4050, L501.5200, L501.9520 #### [facility] [address] [place], [address] RBC (Bld) [#/Vol] 4.31 10*6/uL Normal 4.2-5.4 [facility] Comment on above: Performed By: #### L 100.0100, L503.6005, L503.5510, L300.3900, L300.4310, L500.3400, L500.4050, L501.5200, L501.9520 #### [facility] [address] [place], [address] RDW SD 44.6 fl High 35.1-43.9 [facility] Comment on above: Performed By: #### L 100.0100, L503.6005, L503.5510, L300.3900, L300.4310, L500.3400, L500.4050, L501.5200, L501.9520 #### [facility] [address] [place], [address] WBC (Bld) [#/Vol] 7.4 10*3/uL Normal 4.4-11.0 [facility] Comment on above: Performed By: #### L 100.0100, L503.6005, L503.5510, L300.3900, L300.4310, L500.3400, L500.4050, L501.5200, L501.9520 #### [facility] [address] [place], [address] Comprehensive Metabolic Prof ilon 07-04-2024 Albumin [Mass/Vol] 3.4 g/dL Normal 3.2-5.0 [facility] Comment on above: Performed By: #### L 100.0100, L503.6005, L503.5510, L300.3900, L300.4310, L500.3400, L500.4050, L501.5200, L501.9520 #### [facility] [address] [place], [address] Albumin/Globulin [Mass ratio] 0.7 {ratio} Low 0.9-2.4 [facility] Comment on above: Performed By: #### L 100.0100, L503.6005, L503.5510, L300.3900, L300.4310, L500.3400, L500.4050, L501.5200, L501.9520 #### [facility] [address] [place], [address] ALK P 101 U/L Normal 45-117 [facility] Comment on above: Performed By: #### L 100.0100, L503.6005, L503.5510, L300.3900, L300.4310, L500.3400, L500.4050, L501.5200, L501.9520 #### [facility] [address] [place], [address] ALT [Catalytic activity/Vol] 34 U/L Normal 13-56 [facility] Comment on above: Performed By: #### L 100.0100, L503.6005, L503.5510, L300.3900, L300.4310, L500.3400, L500.4050, L501.5200, L501.9520 #### [facility] [address] [place], [address] AST [Catalytic activity/Vol] 37 U/L Normal 15-37 [facility] Comment on above: Performed By: #### L 100.0100, L503.6005, L503.5510, L300.3900, L300.4310, L500.3400, L500.4050, L501.5200, L501.9520 #### [facility] [address] [place], [address] Bilirubin [Mass/Vol] 1.00 mg/dL Normal 0.20-1.00 [facility] Comment on above: Result Comment: For patients on eltrombopag therapy, use of Dimension [place] TBIL is not recommended. Performed By: #### L 100.0100, L503.6005, L503.5510, L300.3900, L300.4310, L500.3400, L500.4050, L501.5200, L501.9520 #### [facility] [address] [place], [address] BUN/CRE 15.2 RATIO Normal 10-20 [facility] Comment on above: Performed By: #### L 100.0100, L503.6005, L503.5510, L300.3900, L300.4310, L500.3400, L500.4050, L501.5200, L501.9520 #### [facility] [address] [place], [address] CA,Total 9.8 mg/dL Normal 8.5-10.1 [facility] Comment on above: Performed By: #### L 100.0100, L503.6005, L503.5510, L300.3900, L300.4310, L500.3400, L500.4050, L501.5200, L501.9520 #### [facility] [address] [place], [address] Chloride [Moles/Vol] 106 mmol/L Normal 98-107 [facility] Comment on above: Performed By: #### L 100.0100, L503.6005, L503.5510, L300.3900, L300.4310, L500.3400, L500.4050, L501.5200, L501.9520 #### [facility] [address] [place], [address] CO2 [Moles/Vol] 25.0 mmol/L Normal 21.0-32.0 [facility] Comment on above: Performed By: #### L 100.0100, L503.6005, L503.5510, L300.3900, L300.4310, L500.3400, L500.4050, L501.5200, L501.9520 #### [facility] [address] [place], [place], [phone] (697) Creatinine [Mass/Vol] 1.05 mg/dL High 0.55-1.02 [facility] Comment on above: Result Comment: The validity of the calculated GFR GFRAA in patients over 70 years has not been determined. Clinical correlation is essential. Performed By: #### L 100.0100, L503.6005, L503.5510, L300.3900, L300.4310, L500.3400, L500.4050, L501.5200, L501.9520 #### [facility] [address] [place], [address] EST GFR - AA 64 mL/min Normal >60 [facility] Comment on above: Result Comment: Afri can [place] GFR Calc Performed By: #### L 100.0100, L503.6005, L503.5510, L300.3900, L300.4310, L500.3400, L500.4050, L501.5200, L501.9520 #### [facility] [address] [place], [address] GAP 8 Normal 5-15 [facility] Comment on above: Performed By: #### L 100.0100, L503.6005, L503.5510, L300.3900, L300.4310, L500.3400, L500.4050, L501.5200, L501.9520 #### [facility] [address] [place], [address] GFR/1.73 sq M.predicted among non-blacks MDRD (S/P/Bld) [Vol rate/Area] 53 mL/min/{1.73_m2} Low >60 [facility] Comment on above: Result Comment: Non- GFR Calc Performed By: #### L 100.0100, L503.6005, L503.5510, L300.3900, L300.4310, L500.3400, L500.4050, L501.5200, L501.9520 #### [facility] [address] [place], [address] Globulin (S) [Mass/Vol] 4.7 g/dL High 2.2-4.2 [facility] Comment on above: Performed By: #### L 100.0100, L503.6005, L503.5510, L300.3900, L300.4310, L500.3400, L500.4050, L501.5200, L501.9520 #### [facility] [address] [place], [address] Glucose [Mass/Vol] 121 mg/dL High 74-106 [facility] Comment on above: Result Comment: Fast ing Glucose result from 100 to 125 mg/dL suggests IMPAIRED HOMEOSTASIS per A.D.A. criteria. Performed By: #### L 100.0100, L503.6005, L503.5510, L300.3900, L300.4310, L500.3400, L500.4050, L501.5200, L501.9520 #### [facility] [address] [place], [address] Potassium [Moles/Vol] 3.7 mmol/L Normal 3.5-5.1 [facility] Comment on above: Performed By: #### L 100.0100, L503.6005, L503.5510, L300.3900, L300.4310, L500.3400, L500.4050, L501.5200, L501.9520 #### [facility] [address] [place], [address] Sodium [Moles/Vol] 139 mmol/L Normal 136-145 [facility] Comment on above: Performed By: #### L 100.0100, L503.6005, L503.5510, L300.3900, L300.4310, L500.3400, L500.4050, L501.5200, L501.9520 #### [facility] [address] [place], [place], [phone] (152) T PROT 8.1 g/dL Normal 6.4-8.2 [facility] Comment on above: Performed By: #### L 100.0100, L503.6005, L503.5510, L300.3900, L300.4310, L500.3400, L500.4050, L501.5200, L501.9520 #### [facility] [address] [place], [place], [phone] (488) Urea nitrogen [Mass/Vol] 16 mg/dL Normal 7-18 [facility] Comment on above: Performed By: #### L 100.0100, L503.6005, L503.5510, L300.3900, L300.4310, L500.3400, L500.4050, L501.5200, L501.9520 #### [facility] [address] [place], [address] Uric Acidon 07-04-2024 URIC 5.3 mg/dL Normal 2.6-6.0 [facility] Comment on above: Result Comment: The drugs N-Acetylcysteine and Metamizole may falsely depress this assay. Performed By: #### L 100.0100, L503.6005, L503.5510, L300.3900, L300.4310, L500.3400, L500.4050, L501.5200, L501.9520 #### [facility] [place], [address] US Abdomen RUQon 05-26-2024 IMPRESSION: Incidental right renal cyst Fatty infiltration of the liver Otherwise normal sonographic appearance of the right upper quadrant. Medical Receptionist Biller: PSCB Transcribe Date/Time: May 26 2024 2:10P Dictated by : WALLACE MUÑOZ MD This examination was interpreted and the report reviewed and electronically signed by: WALLACE MUÑOZ MD on May 26 2024 2:12PM [facility] DIVISION OF RADIOLOGY * * *Final Report* [...] cm Ascites: None. DIVISION OF RADIOLOGY Provider, [facility] - 05/26/2024 * * *Final Report* * [...] sonographic appearance of the right upper quadrant. Medical Receptionist Biller: FRANCIS Transcribe Date/Time: May 26 2024 2:10P Dictated by : WALLACE MUÑOZ MD This examination was interpreted and the report reviewed and electronically signed by: WALLACE MUÑOZ MD on May 26 2024 2:12PM EST [facility] Radiology Study observation (narrative) [facility] US Abdomen RUQOrdered By: Cc f Provider on 05-26-2024 [facility] No Panel InformationOrdered By: Ccf Provider on 02-23-2024 Interpretation and review of laboratory results Abnormal [facility] Radiology Result ACTIONABLE Abnormal [facility] Comment on above: This report [...] contact your provider for the next steps. [facility] No Panel Informationon 02-22 IMPRESSION: 1. [...] be communicated with the ordering provider via [facility] staff message or phone message by [facility] within 2 business days of report finalization. --END OF FINDING-- Medical Receptionist Biller: FRANCIS Transcribe Date/Time: Feb 23 2024 8:55A Dictated by : NORA BROWN MD This examination was interpreted and the report reviewed and electronically signed by: NORA BROWN MD on Feb 23 2024 9:01AM [facility] DIVISION OF RADIOLOGY US ABD SPLEEN - NBon 024 * * *Final Report* * * DATE OF EXAM: Feb 23 2024 8:17AM [facility]32 - US [facility] SPLEEN -NB / PROCEDURE REASON: Elevated LFTs [...] cyst. Ascites: None. DIVISION OF RADIOLOGY [facility] * * *Final Report* * * DATE OF EXAM: Feb 23 2024 8:17AM [facility]32 - US [facility] SPLEEN -NB / PROCEDURE REASON: Elevated LFTs [...] be communicated with the ordering provider via [facility] staff message or phone message by [facility] within 2 business days of report finalization. --END OF FINDING-- Medical Receptionist Biller: FRANCIS Transcribe Date/Time: Feb 23 2024 8:55A Dictated by : NOAR BROWN MD This examination was interpreted and the report reviewed and electronically signed by: NORA BROWN MD on Feb 23 2024 9:01AM EST [facility] Radiology Study [facility]narrative[facility] 02-23-2024 * * *Final [...] cyst. Ascites: None. DIVISION OF RADIOLOGY Provider, [facility] - 02/23/2024 * * *Final Report* * * DATE OF EXAM: Feb 23 2024 8:17AM [facility]32 - US ABD RIGHT UPPER QUADRANT [...] be communicated with the ordering provider via [facility] staff message or phone message by [facility] within 2 business days of report finalization. --END OF FINDING-- Medical Receptionist Biller: PSCB Transcribe Date/Time: Feb 23 2024 8:55A Dictated by : NORA BROWN MD This examination was interpreted and the report reviewed and electronically signed by: NORA BROWN MD on Feb 23 2024 9:01AM EST [facility] Radiology Study observation (narrative) [facility] Hepatic function 2000 panelo n 02-17-2024 Albumin [Mass/Vol] 3.9 g/dL 3.9 - 4.9 g/dL [facility] ALP [Catalytic activity/Vol] 104 U/L 34 - 123 U/L [facility] ALT [Catalytic activity/Vol] 42 U/L High 7 - 38 U/L [facility] AST [Catalytic activity/Vol] 52 U/L High 13 - 35 U/L [facility] Bilirubin [Mass/Vol] 0.8 mg/dL 0.2 - 1 .3 mg/dL [facility] Bilirubin.conjugated [Mass/Vol] 0.2 mg/dL High NINF - 0.2 mg/dL [facility] Interpretation and review of laboratory results Abnormal [facility] Protein [Mass/Vol] 7.8 g/dL 6.3 - 8.0 g/dL [facility] No Panel Informationon 02-16 Interpretation and review of laboratory results Normal [facility] T3, FREEon 02-17-2024 Free T3 [Mass/Vol] 3.2 pg/mL 2.3 - 4.1 pg/mL [facility] T4 FREE/FREE THYROXINEon Free T4 [Mass/Vol] 1.2 ng/dL 0.9 - 1.7 ng/dL [facility] THYROID STIMULATING HORMONEo n 02-17-2024 TSH Qn 4.260 m[IU]/L High [facility] TSH Qnon 02-17-2024 Interpretation and review of laboratory results Abnormal [facility] Absolute lymphocyte countOrd ered By: Kimmie Hussein on 01-04-2024 Lymphocytes Auto (Unsp spec) [#/Vol] 1.99 10*3/uL 0.83-4.51 [facility] Automated lymphocyte count a s percentage of total leukocytesOrdered By: Kimmie Hussein on 01-04-2024 Lymphocytes/100 WBC Auto (Unsp spec) 37.9 % 19-41 [facility] Basophil percentageOrdered B y: Kimmie Hussein on 01-04-2024 Basophils/100 WBC (Bld) 0.8 % 0-1 [facility] Bilirubin [Mass/Vol] 1.00 mg/dL 0.20-1.00 [facility] Comment on above: For patients on eltr ombopag therapy, use of Dimension [place] TBIL is not recommended. Chloride [Moles/Vol] 106 mmol/L 98-107 [facility] Eosinophils/100 WBC (Bld) 2.5 % 0-5 [facility] Glucose [Mass/Vol] 124 mg/dL 74-106 [facility] Comment on above: Fasting Glucose resu lt from 100 to 125 mg/dL suggests IMPAIRED HOMEOSTASIS per A.D.A. criteria. Hemoglobin (Bld) [Mass/Vol] 12.3 g/dL 12.0-15.0 [facility] Monocytes/100 WBC (Bld) 8.6 % 0-10 [facility] Neutrophils (Bld) [#/Vol] 2.6 10*3/uL 2.0-7.7 [facility] Neutrophils/100 WBC (Bld) 49.8 % 47-70 [facility] Potassium [Moles/Vol] 4.3 mmol/L 3.5-5.1 [facility] Protein [Mass/Vol] 8.0 g/dL 6.4-8.2 [facility] Sodium [Moles/Vol] 141 mmol/L 136-145 [facility] WBC (Bld) [#/Vol] 5.3 10*3/uL 4.4-11.0 [facility] Determination of erythrocyte mean corpuscular volume (MCV)Ordered By: Kimmie Hussein on 01-04-2024 MCV (RBC) [Entitic vol] 93.8 fL 81-99 [facility] Erythrocyte distribution wid th ratioOrdered By: Kimmie Hussein on 01-04-2024 Erythrocyte distribution width (RBC) [Ratio] 13.5 % 11.6-14.6 [facility] Erythrocyte distribution wid th standard deviationOrdered By: Kimmie Hussein on 01-04-2024 Erythrocyte distribution width (RBC) [Entitic vol] 46.3 fL 35.1-43.9 [facility] Hematocrit Auto (Bld) [Volum e fraction]Ordered By: Kimmie Hussein on 01-04-2024 Hematocrit (Bld) [Volume fraction] 37.9 % 37-47 [facility] Immature granulocytes/100 WB C Auto (Bld)Ordered By: [facility] Jovita on 01-04-2024 Immature granulocytes/100 WBC (Bld) 0.400 % 0.0-0.9 [facility] Comment on above: IG% - Immature Granu locytes (promyelocytes, myelocytes and metamyelocytes) > 1% indicates that a LEFT SHIFT is Present. Laboratory - Chemistry and C hemistry - challengeOrdered By: Kimmie Hussein on 01-04-2024 Albumin/Globulin [Mass ratio] 0.7 {ratio} 0.9-2.4 [facility] ALP [Catalytic activity/Vol] 101 U/L 45-117 [facility] ALT [Catalytic activity/Vol] 45 U/L 13-56 [facility] CO2 [Moles/Vol] 29.0 mmol/L 21.0-32.0 [facility] Globulin (S) [Mass/Vol] 4.6 g/dL 2.2-4.2 [facility] Urea nitrogen/Creatinine [Mass ratio] 15.4 mg/mg 10-20 [facility] Laboratory - Hematology and Cell countsOrdered By: Kimmie Hussein on 01-04-2024 MCH (RBC) [Entitic mass] 30.4 pg 27.0-32.0 [facility] MCHC (RBC) [Mass/Vol] 32.5 g/dL 32-36 [facility] Nucleated RBC/100 WBC (Bld) [Ratio] 0 % 0-5 [facility] Platelet mean volume (Bld) [Entitic vol] 10.6 fL 6.2-12.0 [facility] Platelets (Bld) [#/Vol] 141 10*3/uL 150-450 [facility] No Panel InformationOrdered By: Kimmie Hussein on 01-04-2024 Estimated GFR (MDRD) Amer 65 mL/min >60 [facility] Comment on above: GFR Calc Estimated GFR (MDRD) Non-Af Amer 54 mL/min >60 [facility] Comment on above: Non- GFR Calc RBC Auto (Bld) [#/Vol]Ordere d By: Kimmie Hussein on 01-04-2024 RBC (Bld) [#/Vol] 4.04 10*6/uL 4.2-5.4 [facility] Serum or plasma calcium shell urement (mass/volume)Ordered By: Kimmie Hussein on 01-04-2024 Calcium [Mass/Vol] 9.1 mg/dL 8.5-10.1 [facility] Serum or plasma creatinine m easurement (mass/volume)Ordered By: Kimmie Hussein on 01-04-2024 Creatinine [Mass/Vol] 1.04 mg/dL 0.55-1.02 [facility] Comment on above: The validity of the calculated GFR & GFRAA in patients over 70 years has not been determined. Clinical correlation is essential. Serum or plasma urea nitroge n measurement (mass/volume)Ordered By: Kimmie Hussein on 01-04-2024 Urea nitrogen [Mass/Vol] 16 mg/dL 7-18 [facility] Serum or plasma uric acid me asurement (mass/volume)Ordered By: Kimmie Hussein on 01-04-2024 Urate [Mass/Vol] 5.3 mg/dL 2.6-6.0 [facility] Comment on above: The drugs N-Acetylcy steine and Metamizole may falsely depress this assay. Thin prep Papanicolaou smear with manual screeningOrdered By: Kimmie Hussein on 01-04-2024 Thin prep Papanicolaou smear with manual screening 3.4 g/dL 3.2-5.0 [facility] Thin prep Papanicolaou smear with manual screening 43 U/L 15-37 [facility] Thin prep Papanicolaou smear with manual screening 6 5-15 [facility] XR Chest PA and Lateralon IMPRESSION: No acute radiographic abnormality in the lungs. Cardiomegaly. Medical Receptionist Biller: FRANCIS Transcribe Date/Time: Oct 29 2023 11:23A Dictated by : JOJO JEFFREY MD This examination was interpreted and the report reviewed and electronically signed by: JOJO JEFFREY MD on Oct 29 2023 11:24AM [facility] DIVISION OF RADIOLOGY * * *Final Report* [...] shows degenerative changes. DIVISION OF RADIOLOGY Provider, [facility] - 10/29/2023 * * *Final Report* * [...] acute radiographic abnormality in the lungs. Cardiomegaly. Medical Receptionist Biller: PSCB Transcribe Date/Time: Oct 29 2023 11:23A Dictated by : JOJO JEFFREY MD This examination was interpreted and the report reviewed and electronically signed by: JOJO JEFFREY MD on Oct 29 2023 11:24AM EST [facility] Radiology Study observation (narrative) [facility] XR Chest PA and LateralOrder ed By: [facility] Provider on 10-29-2023 [facility] Absolute lymphocyte countOrd ered By: Kimmie Hussein on 08-10-2023 Lymphocytes Auto (Unsp spec) [#/Vol] 1.98 10*3/uL 0.83-4.51 [facility] Basophil percentageOrdered B y: Kimmie Hussein on 08-10-2023 Basophils/100 WBC (Bld) 1.0 % 0-1 [facility] Bilirubin [Mass/Vol] 0.90 mg/dL 0.20-1.00 [facility] Comment on above: For patients on eltr ombopag therapy, use of Dimension [place] TBIL is not recommended. Chloride [Moles/Vol] 107 mmol/L 98-107 [facility] Eosinophils/100 WBC (Bld) 2.4 % 0-5 [facility] Glucose [Mass/Vol] 103 mg/dL 74-106 [facility] Comment on above: Fasting Glucose resu lt from 100 to 125 mg/dL suggests IMPAIRED HOMEOSTASIS per A.D.A. criteria. Neutrophils (Bld) [#/Vol] 3.6 10*3/uL 2.0-7.7 [facility] Neutrophils/100 WBC (Bld) 56.9 % 47-70 [facility] Potassium [Moles/Vol] 3.9 mmol/L 3.5-5.1 [facility] Protein [Mass/Vol] 8.1 g/dL 6.4-8.2 [facility] Sodium [Moles/Vol] 138 mmol/L 136-145 [facility] WBC (Bld) [#/Vol] 6.2 10*3/uL 4.4-11.0 [facility] Blood erythrocytes count (nu mber/volume)Ordered By: Kimmie Hussein on 08-10-2023 RBC (Bld) [#/Vol] 4.26 10*6/uL 4.2-5.4 [facility] Blood hemoglobin measurement (mass/volume)Ordered By: Kimmie Hussein on 08-10-2023 Hemoglobin (Bld) [Mass/Vol] 12.5 g/dL 12.0-15.0 [facility] Blood lymphocytes/100 leukoc ytesOrdered By: Kimmie Hussein on 08-10-2023 Lymphocytes/100 WBC (Bld) 31.7 % 19-41 [facility] Blood monocytes/100 leukocyt esOrdered By: Kimmiedeborah Hussein on 08-10-2023 Monocytes/100 WBC (Bld) 7.7 % 0-10 [facility] Blood platelet mean volumeOr dered By: Kimmiedeborah Hussein on 08-10-2023 Platelet mean volume (Bld) [Entitic vol] 11.6 fL 6.2-12.0 [facility] Determination of erythrocyte mean corpuscular volume (MCV)Ordered By: Kimmie Hussein on 08-10-2023 MCV (RBC) [Entitic vol] 93.9 fL 81-99 [facility] Hematocrit Auto (Bld) [Volum e fraction]Ordered By: Kimmiedeborah Hussein on 08-10-2023 Hematocrit (Bld) [Volume fraction] 40.0 % 37-47 [facility] Laboratory - Chemistry and C hemistry - challengeOrdered By: Kimmiedeborah Hussein on 08-10-2023 ALP [Catalytic activity/Vol] 109 U/L 45-117 [facility] ALT [Catalytic activity/Vol] 46 U/L 13-56 [facility] CO2 [Moles/Vol] 27.0 mmol/L 21.0-32.0 [facility] Globulin (S) [Mass/Vol] 4.7 g/dL 2.2-4.2 [facility] Urea nitrogen/Creatinine [Mass ratio] 14.0 mg/mg 10-20 [facility] Laboratory - Hematology and Cell countsOrdered By: Kimmiedeborah Hussein on 08-10-2023 Erythrocyte distribution width (RBC) [Entitic vol] 45.3 fL 35.1-43.9 [facility] Erythrocyte distribution width (RBC) [Ratio] 13.2 % 11.6-14.6 [facility] Immature granulocytes/100 WBC (Bld) 0.300 % 0.0-0.9 [facility] Comment on above: IG% - Immature Granu locytes (promyelocytes, myelocytes and metamyelocytes) > 1% indicates that a LEFT SHIFT is Present. MCH (RBC) [Entitic mass] 29.3 pg 27.0-32.0 [facility] Nucleated RBC/100 WBC (Bld) [Ratio] 0 % 0-5 [facility] MCHC Auto (RBC) [Mass/Vol]Or dered By: Kimmie Hussein on 08-10-2023 MCHC (RBC) [Mass/Vol] 31.3 g/dL 32-36 [facility] No Panel InformationOrdered By: iKmmie Hussein on 08-10-2023 Estimated GFR (MDRD) Amer 63 mL/min >60 [facility] Comment on above: GFR Calc Estimated GFR (MDRD) Non-Af Amer 52 mL/min >60 [facility] Comment on above: Non- GFR Calc Platelets bldOrdered By: Neena Hussein on 08-10-2023 Platelets (Bld) [#/Vol] 145 10*3/uL 150-450 [facility] Serum or plasma albumin shell urement (mass/volume)Ordered By: Kimmie Hussein on 08-10-2023 Albumin [Mass/Vol] 3.4 g/dL 3.2-5.0 [facility] Serum or plasma albumin/glob ulin mass ratioOrdered By: Kimmie Hussein on 08-10-2023 Albumin/Globulin [Mass ratio] 0.7 {ratio} 0.9-2.4 [facility] Serum or plasma calcium shell urement (mass/volume)Ordered By: Kimmie Hussein on 08-10-2023 Calcium [Mass/Vol] 9.1 mg/dL 8.5-10.1 [facility] Serum or plasma creatinine m easurement (mass/volume)Ordered By: Kimmie Hussein on 08-10-2023 Creatinine [Mass/Vol] 1.07 mg/dL 0.55-1.02 [facility] Comment on above: The validity of the calculated GFR & GFRAA in patients over 70 years has not been determined. Clinical correlation is essential. Serum or plasma urea nitroge n measurement (mass/volume)Ordered By: Kimmie Hussein on 08-10-2023 Urea nitrogen [Mass/Vol] 15 mg/dL 04-28 [facility] Serum or plasma uric acid me asurement (mass/volume)Ordered By: Kimmiedeborah Hussein on 08-10-2023 Urate [Mass/Vol] 4.9 mg/dL 2.6-6.0 [facility] Comment on above: The drugs N-Acetylcy steine and Metamizole may falsely depress this assay. Thin prep Papanicolaou smear with manual screeningOrdered By: Kimmie Hussein on 08-10-2023 Thin prep Papanicolaou smear with manual screening 43 U/L [facility] Thin prep Papanicolaou smear with manual screening 4 02-23 [facility] CNPSelina 04-17-2023 [facility] Telephone (LUANNE) MARY CRANE ([id number]) 1940 F TXT Date Time Provider Department 04/17/23 FATIMAH MANZANO During your visit today, we recorded the following information about you: Velma Lomas LPN 04/17/2023 1:05 PM Signed ----- Message from Fatimah Manzano APRN.EPOXY SPECIALIST sent at 04/17/2023 12:20 PM EDT ----- Please call the patient and report echo results revealed normal LV Function, EF 55%. There were no significant structure or valvular abnormalities identified on echocardiogram. EUGENE Solis LPN 04/17/2023 1:07 PM Signed Spoke to and informed her of Fatimah's [...] 03/07/2015 [employer] (more content not included)... Normal [facility] ECHOon 04-17-2023 [facility] Absolute lymphocyte countOrd ered By: Dr. Hussein on 11-13-2022 Lymphocytes Auto (Unsp spec) [#/Vol] 2.43 10*3/uL 0.83-4.51 [facility] Basophil percentageOrdered B y: Dr. Hussein on 11-13-2022 Basophils/100 WBC (Bld) 0.6 % 0-1 [facility] Bilirubin [Mass/Vol] 0.80 mg/dL 0.20-1.00 [facility] Comment on above: For patients on eltr ombopag therapy, use of Dimension [place] TBIL is not recommended. Chloride [Moles/Vol] 107 mmol/L 98-107 [facility] Eosinophils/100 WBC (Bld) 1.2 % 0-5 [facility] Glucose [Mass/Vol] 93 mg/dL 74-106 [facility] Neutrophils (Bld) [#/Vol] 6.3 10*3/uL 2.0-7.7 [facility] Neutrophils/100 WBC (Bld) 63.8 % 47-70 [facility] Potassium [Moles/Vol] 3.3 mmol/L 3.5-5.1 [facility] Protein [Mass/Vol] 7.9 g/dL 6.4-8.2 [facility] Sodium [Moles/Vol] 142 mmol/L 136-145 [facility] WBC (Bld) [#/Vol] 9.9 10*3/uL 4.4-11.0 [facility] Blood erythrocytes count (nu mber/volume)Ordered By: Dr. Hussein on 11-13-2022 RBC (Bld) [#/Vol] 4.74 10*6/uL 4.2-5.4 [facility] Blood hemoglobin measurement (mass/volume)Ordered By: Dr. Hussein on 11-13-2022 Hemoglobin (Bld) [Mass/Vol] 13.8 g/dL 12.0-15.0 [facility] Blood lymphocytes/100 leukoc ytesOrdered By: Dr. Hussein on 11-13-2022 Lymphocytes/100 WBC (Bld) 24.5 % 19-41 [facility] Blood monocytes/100 leukocyt esOrdered By: Dr. Hussein on 11-13-2022 Monocytes/100 WBC (Bld) 9.0 % 0-10 [facility] Blood platelet mean volumeOr dered By: Dr. Hussein on 11-13-2022 Platelet mean volume (Bld) [Entitic vol] 10.7 fL 6.2-12.0 [facility] Determination of erythrocyte mean corpuscular volume (MCV)Ordered By: Dr. Hussein on 11-13-2022 MCV (RBC) [Entitic vol] 93.5 fL 81-99 [facility] Hematocrit Auto (Bld) [Volum e fraction]Ordered By: Dr. Hussein on 11-13-2022 Hematocrit (Bld) [Volume fraction] 44.3 % 37-47 [facility] Laboratory - Chemistry and C hemistry - challengeOrdered By: Dr. Hussein on 11-13-2022 ALP [Catalytic activity/Vol] 124 U/L 45-117 [facility] ALT [Catalytic activity/Vol] 68 U/L 13-56 [facility] CO2 [Moles/Vol] 28.0 mmol/L 21.0-32.0 [facility] Globulin (S) [Mass/Vol] 4.4 g/dL 2.2-4.2 [facility] Urea nitrogen/Creatinine [Mass ratio] 19.2 mg/mg 10-20 [facility] Laboratory - Hematology and Cell countsOrdered By: Dr. Hussein on 11-13-2022 Erythrocyte distribution width (RBC) [Entitic vol] 48.3 fL 35.1-43.9 [facility] Erythrocyte distribution width (RBC) [Ratio] 14.0 % 11.6-14.6 [facility] Immature granulocytes/100 WBC (Bld) 0.900 % 0.0-0.9 [facility] Comment on above: IG% - Immature Granu locytes (promyelocytes, myelocytes and metamyelocytes) > 1% indicates that a LEFT SHIFT is Present. MCH (RBC) [Entitic mass] 29.1 pg 27.0-32.0 [facility] Nucleated RBC/100 WBC (Bld) [Ratio] 0 % 0-5 [facility] MCHC Auto (RBC) [Mass/Vol]Or dered By: Dr. Hussein on 11-13-2022 MCHC (RBC) [Mass/Vol] 31.2 g/dL 32-36 [facility] No Panel InformationOrdered By: Dr. Hussein on 11-13-2022 Estimated GFR (MDRD) Amer 65 mL/min >60 [facility] Comment on above: GFR Calc Estimated GFR (MDRD) Non-Af Amer 54 mL/min >60 [facility] Comment on above: Non- GFR Calc Platelets bldOrdered By: Dr. Hussein on 11-13-2022 Platelets (Bld) [#/Vol] 165 10*3/uL 150-450 [facility] Serum or plasma albumin shell urement (mass/volume)Ordered By: Dr. Hussein on 11-13-2022 Albumin [Mass/Vol] 3.5 g/dL 3.2-5.0 [facility] Serum or plasma albumin/glob ulin mass ratioOrdered By: Dr. Hussein on 11-13-2022 Albumin/Globulin [Mass ratio] 0.8 {ratio} 0.9-2.4 [facility] Serum or plasma calcium shell urement (mass/volume)Ordered By: Dr. Hussein on 11-13-2022 Calcium [Mass/Vol] 9.0 mg/dL 8.5-10.1 [facility] Serum or plasma creatinine m easurement (mass/volume)Ordered By: Dr. Hussein on 11-13-2022 Creatinine [Mass/Vol] 1.04 mg/dL 0.55-1.02 [facility] Comment on above: The validity of the calculated GFR & GFRAA in patients over 70 years has not been determined. Clinical correlation is essential. Serum or plasma urea nitroge n measurement (mass/volume)Ordered By: Dr. Hussein on 11-13-2022 Urea nitrogen [Mass/Vol] 20 mg/dL 7-18 [facility] Thin prep Papanicolaou smear with manual screeningOrdered By: Dr. Hussein on 11-13-2022 Thin prep Papanicolaou smear with manual screening 35 U/L 15-37 [facility] Thin prep Papanicolaou smear with manual screening 7 5-15 [facility] SURGICAL PATHOLOGYon 022 Case Report Surgical Pathology Report Case: [id number] Authorizing Provider: Preet Daly MD Collected: 09/30/2022 09:51 AM Ordering Location: Ambulatory Surgery Received: 09/30/2022 11:47 AM Pathologist: Chino Valdez MD Specimens: A) - COLON POLYP, right colon polyps B) - HEPATIC FLEXURE POLYP C) - TRANSVERSE COLON POLYP D) - SIGMOID COLON POLYP [facility] FINAL DIAGNOSIS A. Colon, right polyps, biopsy: - Multiple fragments of tubular adenoma. B. Hepatic flexure polyp, biopsy: - Tubular adenoma. C. Transverse colon polyp, biopsy: - Hyperplastic polyp. D. Sigmoid colon polyp, biopsy: - Tubular adenoma. [facility] Gross Description A. COLON POLYP Received [...] in one cassette. Gross examination performed at [facility], [address] [place] [address] TTN 09/30/2022 8:08 PM [facility] Performing Lab Diagnostic interpretation performed at [facility], [address] [facility] [address] CLIA# [id number] Railroad Car Inspector: Chino Valdez M.D. [facility] No Panel Informationon 10-01 [facility] COLONOSCOPY SCREENINGon -2 [facility] WILLI SCREENINGon 07-17-2022 [facility] Absolute lymphocyte counton 05-28-2022 Lymphocytes Auto (Unsp spec) [#/Vol] 1.29 10*3/uL 0.83-4.51 [facility] Work Phone: Basophil percentageon 2021 Basophils/100 WBC (Bld) 1.1 % 0-1 [facility] Work Phone: [phone] Bilirubin [Mass/Vol] 0.80 mg/dL 0.20-1.00 [facility] Work Phone: Comment on above: For patients on eltr ombopag therapy, use of Dimension [place] TBIL is not recommended. Chloride [Moles/Vol] 107 mmol/L 98-107 [facility] Work Phone: Eosinophils/100 WBC (Bld) 2.4 % 0-5 [facility] Work Phone: Glucose [Mass/Vol] 115 mg/dL 74-106 [facility] Work Phone: Comment on above: Fasting Glucose resu lt from 100 to 125 mg/dL suggests IMPAIRED HOMEOSTASIS per A.D.A. criteria. Neutrophils (Bld) [#/Vol] 2.4 10*3/uL 2.0-7.7 [facility] Work Phone: Neutrophils/100 WBC (Bld) 53.3 % 47-70 [facility] Work Phone: [phone] Potassium [Moles/Vol] 4.2 mmol/L 3.5-5.1 [facility] Work Phone: [phone] Protein [Mass/Vol] 7.6 g/dL 6.4-8.2 [facility] Work Phone: [phone] Sodium [Moles/Vol] 140 mmol/L 136-145 [facility] Work Phone: [phone] WBC (Bld) [#/Vol] 4.5 10*3/uL 4.4-11.0 [facility] Work Phone: [phone] Blood erythrocytes count (nu mber/volume)on 05-28-2022 RBC (Bld) [#/Vol] 4.31 10*6/uL 4.2-5.4 [facility] Work Phone: Blood hemoglobin measurement (mass/volume)on 05-28-2022 Hemoglobin (Bld) [Mass/Vol] 12.8 g/dL 12.0-15.0 [facility] Work Phone: [phone] Blood lymphocytes/100 leukoc yteson 05-28-2022 Lymphocytes/100 WBC (Bld) 28.7 % 19-41 [facility] Work Phone: [phone] Blood monocytes/100 leukocyt eson 05-28-2022 Monocytes/100 WBC (Bld) 13.8 % 0-10 [facility] Work Phone: [phone] Blood platelet mean volumeon 05-28-2022 Platelet mean volume (Bld) [Entitic vol] 10.9 fL 6.2-12.0 [facility] Work Phone: Determination of erythrocyte mean corpuscular volume (MCV)on 05-28-2022 MCV (RBC) [Entitic vol] 91.6 fL 81-99 [facility] Work Phone: [phone] Hematocrit Auto (Bld) [Volum e fraction]on 05-28-2022 Hematocrit (Bld) [Volume fraction] 39.5 % 37-47 [facility] Work Phone: Laboratory - Chemistry and C hemistry - challengeon 05-28-2022 ALP [Catalytic activity/Vol] 129 U/L 45-117 [facility] Work Phone: [phone] [Catalytic activity/Vol] 30 U/L 13-56 [facility] Work Phone: [phone] CO2 [Moles/Vol] 26.0 mmol/L 21.0-32.0 [facility] Work Phone: [phone] Globulin (S) [Mass/Vol] 4.3 g/dL 2.2-4.2 [facility] Work Phone: [phone] Urea nitrogen/Creatinine [Mass ratio] 10.9 mg/mg 10-20 [facility] Work Phone: [phone] Laboratory - Hematology and Cell countson 05-28-2022 Erythrocyte distribution width (RBC) [Entitic vol] 45.6 fL 35.1-43.9 [facility] Work Phone: [phone] Erythrocyte distribution width (RBC) [Ratio] 13.4 % 11.6-14.6 [facility] Work Phone: [phone] Immature granulocytes/100 WBC (Bld) 0.700 % 0.0-0.9 [facility] Work Phone: [phone] Comment on above: IG% - Immature Granu locytes (promyelocytes, myelocytes and metamyelocytes) > 1% indicates that a LEFT SHIFT is Present. MCH (RBC) [Entitic mass] 29.7 pg 27.0-32.0 [facility] Work Phone: [phone] Nucleated RBC/100 WBC (Bld) [Ratio] 0 % 0-5 [facility] Work Phone: [phone] MCHC Auto (RBC) [Mass/Vol]on 05-28-2022 MCHC (RBC) [Mass/Vol] 32.4 g/dL 32-36 [facility] Work Phone: [phone] Panel Informationon 05-28 Estimated GFR (MDRD) Amer 61 mL/min >60 [facility] Work Phone: [phone] Comment on above: GFR Calc Estimated GFR (MDRD) Non-Af Amer 50 mL/min >60 [facility] Work Phone: Comment on above: Non- GFR Calc Platelets bldon 05-28-2022 Platelets (Bld) [#/Vol] 152 10*3/uL 150-450 [facility] Work Phone: [phone] Serum or plasma albumin shell urement (mass/volume)on 05-28-2022 Albumin [Mass/Vol] 3.3 g/dL 3.2-5.0 [facility] Work Phone: [phone] Serum or plasma albumin/glob ulin mass ratioon 05-28-2022 Albumin/Globulin [Mass ratio] 0.8 {ratio} 0.9-2.4 [facility] Work Phone: [phone] Serum or plasma calcium shell urement (mass/volume)on 05-28-2022 Calcium [Mass/Vol] 9.3 mg/dL 8.5-10.1 [facility] Work Phone: [phone] Serum or plasma creatinine m easurement (mass/volume)on 05-28-2022 Creatinine [Mass/Vol] 1.10 mg/dL 0.55-1.02 [facility] Work Phone: Comment on above: The validity of the calculated GFR & GFRAA in patients over 70 years has not been determined. Clinical correlation is essential. Serum or plasma urea nitroge n measurement (mass/volume)on 05-28-2022 Urea nitrogen [Mass/Vol] 12 mg/dL 7-18 [facility] Work Phone: [phone] Thin prep Papanicolaou smear with manual screeningon 05-28-2022 Thin prep Papanicolaou smear with manual screening 25 U/L 15-37 [facility] Work Phone: [phone] Thin prep Papanicolaou smear with manual screening 7 5-15 [facility] Work Phone: [phone] Absolute lymphocyte counton 02-03-2022 Lymphocytes Auto (Unsp spec) [#/Vol] 1.27 10*3/uL 0.83-4.51 [facility] Work Phone: Basophil percentageon 2021 Basophils/100 WBC (Bld) 1.0 % 0-1 [facility] Work Phone: Bilirubin [Mass/Vol] 0.60 mg/dL 0.20-1.00 [facility] Work Phone: Comment on above: For patients on eltr ombopag therapy, use of Dimension [place] TBIL is not recommended. Chloride [Moles/Vol] 107 mmol/L 98-107 [facility] Work Phone: Eosinophils/100 WBC (Bld) 2.9 % 0-5 [facility] Work Phone: Glucose [Mass/Vol] 117 mg/dL 74-106 [facility] Work Phone: Comment on above: Fasting Glucose resu lt from 100 to 125 mg/dL suggests IMPAIRED HOMEOSTASIS per A.D.A. criteria. Neutrophils (Bld) [#/Vol] 2.9 10*3/uL 2.0-7.7 [facility] Work Phone: Neutrophils/100 WBC (Bld) 60.0 % 47-70 [facility] Work Phone: [phone] Potassium [Moles/Vol] 3.8 mmol/L 3.5-5.1 [facility] Work Phone: Protein [Mass/Vol] 7.5 g/dL 6.4-8.2 [facility] Work Phone: [phone] Sodium [Moles/Vol] 140 mmol/L 136-145 [facility] Work Phone: WBC (Bld) [#/Vol] 4.8 10*3/uL 4.4-11.0 [facility] Work Phone: [phone] Blood erythrocytes count (nu mber/volume)on 02-03-2022 RBC (Bld) [#/Vol] 4.23 10*6/uL 4.2-5.4 [facility] Work Phone: Blood hemoglobin measurement (mass/volume)on 02-03-2022 Hemoglobin (Bld) [Mass/Vol] 12.1 g/dL 12.0-15.0 [facility] Work Phone: Blood lymphocytes/100 leukoc yteson 02-03-2022 Lymphocytes/100 WBC (Bld) 26.4 % 19-41 [facility] Work Phone: Blood monocytes/100 leukocyt eson 02-03-2022 Monocytes/100 WBC (Bld) 9.1 % 0-10 [facility] Work Phone: Blood platelet mean volumeon 02-03-2022 Platelet mean volume (Bld) [Entitic vol] 10.7 fL 6.2-12.0 [facility] Work Phone: Determination of erythrocyte mean corpuscular volume (MCV)on 02-03-2022 MCV (RBC) [Entitic vol] 92.2 fL 81-99 [facility] Work Phone: Hematocrit Auto (Bld) [Volum e fraction]on 02-03-2022 Hematocrit (Bld) [Volume fraction] 39.0 % 37-47 [facility] Work Phone: Laboratory - Chemistry and C hemistry - challengeon 02-03-2022 ALP [Catalytic activity/Vol] 141 U/L 45-117 [facility] Work Phone: ALT [Catalytic activity/Vol] 23 U/L 13-56 [facility] Work Phone: CO2 [Moles/Vol] 26.0 mmol/L 21.0-32.0 [facility] Work Phone: [phone] Globulin (S) [Mass/Vol] 4.2 g/dL 2.2-4.2 [facility] Work Phone: Urea nitrogen/Creatinine [Mass ratio] 14.0 mg/mg 10-20 [facility] Work Phone: Laboratory - Hematology and Cell countson 02-03-2022 Erythrocyte distribution width (RBC) [Entitic vol] 46.3 fL 35.1-43.9 [facility] Work Phone: [phone] Erythrocyte distribution width (RBC) [Ratio] 13.7 % 11.6-14.6 [facility] Work Phone: [phone] Immature granulocytes/100 WBC (Bld) 0.600 % 0.0-0.9 [facility] Work Phone: [phone] Comment on above: IG% - Immature Granu locytes (promyelocytes, myelocytes and metamyelocytes) > 1% indicates that a LEFT SHIFT is Present. MCH (RBC) [Entitic mass] 28.6 pg 27.0-32.0 [facility] Work Phone: [phone] Nucleated RBC/100 WBC (Bld) [Ratio] 0 % 0-5 [facility] Work Phone: [phone] MCHC Auto (RBC) [Mass/Vol]on 02-03-2022 MCHC (RBC) [Mass/Vol] 31.0 g/dL 32-36 [facility] Work Phone: [phone] No Panel Informationon 02-03 Estimated GFR (MDRD) Amer 63 mL/min >60 [facility] Work Phone: [phone] Comment on above: GFR Calc Estimated GFR (MDRD) Non-Af Amer 52 mL/min >60 [facility] Work Phone: [phone] Comment on above: Non- GFR Calc Platelets bldon 02-03-2022 Platelets (Bld) [#/Vol] 179 10*3/uL 150-450 [facility] Work Phone: [phone] Serum or plasma albumin shell urement (mass/volume)on 02-03-2022 Albumin [Mass/Vol] 3.3 g/dL 3.2-5.0 [facility] Work Phone: [phone] Serum or plasma albumin/glob ulin mass ratioon 02-03-2022 Albumin/Globulin [Mass ratio] 0.8 {ratio} 0.9-2.4 [facility] Work Phone: [phone] Serum or plasma calcium shell urement (mass/volume)on 02-03-2022 Calcium [Mass/Vol] 9.1 mg/dL 8.5-10.1 [facility] Work Phone: Serum or plasma creatinine m easurement (mass/volume)on 02-03-2022 Creatinine [Mass/Vol] 1.07 mg/dL 0.55-1.02 [facility] Work Phone: Comment on above: The validity of the calculated GFR & GFRAA in patients over 70 years has not been determined. Clinical correlation is essential. 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 Spondylosis of the cervical spine. 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 (accession [id number]), Pain on the top and posterior bilateral shoulders without injury x 1 month. (accession [id number]), Posterior neck pain that radiates to both shoulders x 1 month. No injury (accession [id number]) TECHNIQUE: Images: XR SHLDR >/=3V AP/SAMUEL AP/OTHR [...] the right neck. DIVISION OF RADIOLOGY Provider, [facility] - 01/29/2021 * * *Final Report* * [...] shoulders without injury x 1 month. (accession [id number]), Pain on the top and posterior bilateral shoulders without injury x 1 month. (accession [id number]), Posterior neck pain that radiates to both shoulders x 1 month. No injury (accession [id number]) TECHNIQUE: Images: XR SHLDR >/=3V AP/SAMUEL AP/OTHR [...] glenohumeral osteoarthrosis. Spondylosis of the cervical spine. Medical Receptionist Biller: [facility] Transcribe Date/Time: Jan 29 2021 11:35A Dictated by : ANGELINA SOLORZANO MD This examination was interpreted and the report reviewed and electronically signed by: ANGELINA SOLORZANO MD on Jan 29 2021 11:38AM [facility] XR Shoulder - left 3 Viewson 01-29-2021 [...] shoulders without injury x 1 month. (accession [id number]), Pain on the top and posterior bilateral shoulders without injury x 1 month. (accession [id number]), Posterior neck pain that radiates to both shoulders x 1 month. No injury (accession [id number]) TECHNIQUE: Images: XR SHLDR >/=3V AP/SAMUEL AP/OTHR [...] the right neck. DIVISION OF RADIOLOGY Provider, [facility] - 01/29/2021 * * *Final Report* * [...] shoulders without injury x 1 month. (accession [id number]), Pain on the top and posterior bilateral shoulders without injury x 1 month. (accession [id number]), Posterior neck pain that radiates to both shoulders x 1 month. No injury (accession [id number]) TECHNIQUE: Images: XR SHLDR >/=3V AP/SAMUEL AP/OTHR [...] glenohumeral osteoarthrosis. Spondylosis of the cervical spine. 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 (accession [id number]), Pain on the top and posterior bilateral shoulders without injury x 1 month. (accession [id number]), Posterior neck pain that radiates to both shoulders x 1 month. No injury (accession [id number]) TECHNIQUE: Images: XR SHLDR >/=3V AP/SAMUEL AP/OTHR [...] the right neck. DIVISION OF RADIOLOGY Provider, [facility] - 01/29/2021 * * *Final Report* * [...] shoulders without injury x 1 month. (accession [id number]), Pain on the top and posterior bilateral shoulders without injury x 1 month. (accession [id number]), Posterior neck pain that radiates to both shoulders x 1 month. No injury (accession [id number]) TECHNIQUE: Images: XR SHLDR >/=3V AP/SAMUEL AP/OTHR [...] glenohumeral osteoarthrosis. Spondylosis of the cervical spine. Medical Receptionist Biller: FRANCIS Transcribe Date/Time: Jan 29 2021 11:35A Dictated by : ANGELINA SOLORZANO MD This examination was interpreted and the report reviewed and electronically signed by: ANGELINA SOLORZANO MD on Jan 29 2021 11:38AM EST [facility] Vital Signs Date Time Vital Sign Value Performing Clinician Facility 05-22-2025 13:59-0400 Body mass index (BMI) [Ratio] 26.43 kg/m2 Atul Harvey DO Work Phone: [facility] 05-22-2025 13:59-0400 Body temperature 97 [degF] Atul Harvey DO Work Phone: [facility] 05-22-2025 13:59-0400 Body weight 69.85 kg Atul Harvey DO Work Phone: [facility] 05-22-2025 13:59-0400 Diastolic blood pressure 80 mm[Hg] Atul Harvey DO Work Phone: [facility] 05-22-2025 13:59-0400 Heart rate 60 /min Atul Harvey DO Work Phone: [facility] 05-22-2025 13:59-0400 Respiratory rate 16 /min Atul Harvey DO Work Phone: [facility] 05-22-2025 13:59-0400 Systolic blood pressure 120 mm[Hg] Atul Harvey DO Work Phone: [facility] 04-24-2025 12:10-0400 Body mass index (BMI) [Ratio] 26.11 kg/m2 Josef Martinez APRN.EPOXY SPECIALIST Work Phone: [facility] 04-24-2025 12:10-0400 Body weight 69 kg Josef Martinez APRN.EPOXY SPECIALIST Work Phone: [facility] 04-24-2025 12:10-0400 Diastolic blood pressure 76 mm[Hg] Josef Martinez APRN.EPOXY SPECIALIST Work Phone: [facility] 04-24-2025 12:10-0400 Heart rate 56 /min Josef Martinez APRN.EPOXY SPECIALIST Work Phone: [facility] 04-24-2025 12:10-0400 Systolic blood pressure 171 mm[Hg] Josef Martinez APRN.EPOXY SPECIALIST Work Phone: [facility] 03-27-2025 09:09-0400 Body height 162.6 cm Rasheed Barrios MD Work Phone: [facility] 03-27-2025 09:09-0400 Body mass index (BMI) [Ratio] 26.09 kg/m2 Rasheed Barrios MD Work Phone: [facility] 03-27-2025 09:09-0400 Body weight 68.95 kg Rasheed Barrios MD Work Phone: [facility] 03-27-2025 09:09-0400 Diastolic blood pressure 80 mm[Hg] Rasheed Mustafa Work Phone: [facility] 03-27-2025 09:09-0400 Heart rate 59 /min Rasheed Barrios MD Work Phone: [facility] 03-27-2025 09:09-0400 Respiratory rate 12 /min Rasheed Barrios MD Work Phone: [facility] 03-27-2025 09:09-0400 SaO2% (BldA) [Mass fraction] 97 % Rasheed Barrios MD Work Phone: [facility] 03-27-2025 09:09-0400 Systolic blood pressure 166 mm[Hg] Rasheed Barrios MD Work Phone: [facility] 02-07-2025 10:10-0400 Body mass index (BMI) [Ratio] 25.06 kg/m2 Atul Harvey DO Work Phone: [facility] 02-07-2025 10:10-0400 Body temperature 97 [degF] Atul Harvey DO Work Phone: [facility] 02-07-2025 10:10-0400 Body weight 66.22 kg Atul Harvey DO Work Phone: [facility] 02-07-2025 10:10-0400 Diastolic blood pressure 72 mm[Hg] Atul Harvey DO Work Phone: [facility] 02-07-2025 10:10-0400 Heart rate 64 /min Atul Harvey DO Work Phone: [facility] 02-07-2025 10:10-0400 Respiratory rate 20 /min Atul Harvey DO Work Phone: [facility] 02-07-2025 10:10-0400 Systolic blood pressure 124 mm[Hg] Atul Harvey DO Work Phone: [facility] 01-07-2025 10:47-0400 SaO2% (BldA) [Mass fraction] 97 % [facility] Comment on above: Order Comment: Specimen Type: ARTERIAL B LOOD SPECIMENOrdering Facility: [facility] Address: [address] [place] [address] Performed By: #### A LLBG ####[facility] LABORATORYCLIA [id number] [address] 01-07-2025 05:57-0400 SaO2% (BldA) [Mass fraction] 98 % [facility] Comment on above: Order Comment: Specimen Type: ARTERIAL B LOOD SPECIMENOrdering Facility: [facility] Address: [address] [place] [address] Performed By: #### A LLBG ####[facility] LABORATORYCLIA [id number] [address] 01-07-2025 00:00-0400 SaO2% (BldA) [Mass fraction] 98 % [facility] Comment on above: Order Comment: Specimen Type: ARTERIAL B LOOD SPECIMENOrdering Facility: [facility] Address: [address] [place] [address] Performed By: #### A LLBG ####[facility] LABORATORYCLIA [id number] [place] [address] [facility] 01-06-2025 17:51-0400 SaO2% (BldA) [Mass fraction] 98 % [facility] Comment on above: Order Comment: Specimen Type: ARTERIAL B LOOD SPECIMENOrdering Facility: [facility] Address: [address] [place] [address] Performed By: #### A LLBG ####[facility] LABORATORYCLIA [id number] [place] [address] [facility] 01-06-2025 14:02-0400 SaO2% (BldA) [Mass fraction] 99 % [facility] Comment on above: Order Comment: Specimen Type: ARTERIAL B LOOD SPECIMENOrdering Facility: [facility] Address: [address] [place] [address] Performed By: #### A LLBG ####[facility] LABORATORYCLIA [id number] [place] [id number] [facility] 01-06-2025 12:32-0400 SaO2% (BldA) [Mass fraction] 99 % [facility] Comment on above: Order Comment: Specimen Type: ARTERIAL B LOOD SPECIMENOrdering Facility: [facility] Address: [address] [place] [address] Performed By: #### A LLBG ####[facility] LABORATORYCLIA [id number] [place] [id number] [facility] 01-06-2025 09:30-0400 SaO2% (BldA) [Mass fraction] 99 % [facility] Comment on above: Order Comment: Specimen Type: ARTERIAL B LOOD SPECIMENOrdering Facility: [facility] Address: [address] [place] [address] Performed By: #### A LLBG ####[facility] LABORATORYCLIA [id number] [place] [address] [facility] 01-06-2025 05:21-0400 Body height 160.[address] Atul Harvey DO Work Phone: [facility] 01-06-2025 05:21-0400 Body mass index (BMI) [Ratio] 27.8 kg/m2 Dr. Atul Harvey DO Work Phone: [facility] 01-06-2025 05:21-0400 Body weight 71.[address] Atul Harvey DO Work Phone: [facility] 01-06-2025 05:17-0400 Body temperature 97.6 [degF] Dr. Atul Harvey DO Work Phone: [facility] 01-06-2025 05:17-0400 Diastolic blood pressure 89 mm[Hg] Dr. Atul Harvey DO Work Phone: [facility] 01-06-2025 05:17-0400 Heart rate 72 /min Dr. Atul Harvey DO Work Phone: [facility] 01-06-2025 05:17-0400 Respiratory rate 24 /min Dr. Atul Harvey DO Work Phone: [facility] 01-06-2025 05:17-0400 SaO2% (BldA) [Mass fraction] 99 % Dr. Atul Harvey DO Work Phone: [facility] 01-06-2025 05:17-0400 Systolic blood pressure 135 mm[Hg] Dr. Atul Harvey DO Work Phone: [facility] 01-06-2025 04:41-0400 Inhaled oxygen flow rate 2 L/min Dr. Atul Harvey DO Work Phone: [facility] 11-11-2024 18:12-0500 Body mass index (BMI) [Ratio] 26.95 kg/m2 Maria E Brewster APRN.EPOXY SPECIALIST Work Phone: [facility] 11-11-2024 18:12-0500 Body temperature 98.71 [degF] Maria E Brewster APRN.EPOXY SPECIALIST Work Phone: [facility] 11-11-2024 18:12-0500 Body weight 69 kg Maria E Brewster ALLISON.EPOXY SPECIALIST Work Phone: [facility] 11-11-2024 18:12-0500 Diastolic blood pressure 77 mm[Hg] Maria E Brewster ALLISON.EPOXY SPECIALIST Work Phone: [facility] 11-11-2024 18:12-0500 Heart rate 70 /min Maria Eshaheen Brewster APRN.EPOXY SPECIALIST Work Phone: [facility] 11-11-2024 18:12-0500 Respiratory rate 22 /min Maria E Brewster ALLISON.EPOXY SPECIALIST Work Phone: [facility] 11-11-2024 18:12-0500 SaO2% (BldA) [Mass fraction] 96 % Maria E Tank COOPER.EPOXY SPECIALIST Work Phone: [facility] 11-11-2024 18:12-0500 Systolic blood pressure 147 mm[Hg] Maria E Tank COOPER.EPOXY SPECIALIST Work Phone: [facility] 11-07-2024 10:26-0500 Body height 160 cm Rasheed Barrios MD Work Phone: [facility] 11-07-2024 10:26-0500 Body mass index (BMI) [Ratio] 26.75 kg/m2 Rasheed Barrios MD Work Phone: [facility] 11-07-2024 10:26-0500 Body weight 68.49 kg Rasheed Barrios MD Work Phone: [facility] 11-07-2024 10:26-0500 Diastolic blood pressure 90 mm[Hg] Rasheed Mustafa Work Phone: [facility] 11-07-2024 10:26-0500 Heart rate 71 /min Rasheed Barrios MD Work Phone: [facility] 11-07-2024 10:26-0500 Respiratory rate 14 /min Rasheed Barrios MD Work Phone: [facility] 11-07-2024 10:26-0500 SaO2% (BldA) [Mass fraction] 99 % Rasheed Barrios MD Work Phone: [facility] 11-07-2024 10:26-0500 Systolic blood pressure 140 mm[Hg] Rasheed Barrios MD Work Phone: [facility] 10-25-2024 10:34-0500 Body mass index (BMI) [Ratio] 26.85 kg/m2 Catalina Ramírez CENTRAL LAB TECHNICIAN.EPOXY SPECIALIST Work Phone: [facility] 10-25-2024 10:34-0500 Body weight 68.77 kg Catalina Ramírez CENTRAL LAB TECHNICIAN.EPOXY SPECIALIST Work Phone: [facility] 10-25-2024 10:34-0500 Diastolic blood pressure 72 mm[Hg] Catalina roderickco n CENTRAL LAB TECHNICIAN.EPOXY SPECIALIST Work Phone: [facility] 10-25-2024 10:34-0500 Heart rate 73 /min Catlaina Ramírez CENTRAL LAB TECHNICIAN.EPOXY SPECIALIST Work Phone: [facility] 10-25-2024 10:34-0500 SaO2% (BldA) [Mass fraction] 98 % Catalina Ramírez CENTRAL LAB TECHNICIAN.EPOXY SPECIALIST Work Phone: [facility] 10-25-2024 10:34-0500 Systolic blood pressure 112 mm[Hg] Catalina Ramírez CENTRAL LAB TECHNICIAN.EPOXY SPECIALIST Work Phone: [facility] 10-18-2024 14:00-0500 Inhaled oxygen concentration 2 % Dr. Atul Harvey DO Work Phone: [facility] 10-18-2024 07:40-0500 Heart rate 115 /min Dr. Atul Harvey DO Work Phone: [facility] 10-18-2024 07:23-0500 Body temperature 98 [degF] Dr. Atul Harvey DO Work Phone: [facility] 10-18-2024 07:23-0500 Diastolic blood pressure 70 mm[Hg] Dr. Atul Harvey DO Work Phone: [facility] 10-18-2024 07:23-0500 Respiratory rate 17 /min Dr. Atul Harvey DO Work Phone: [facility] 10-18-2024 07:23-0500 SaO2% (BldA) [Mass fraction] 90 % Dr. Atul Harvey DO Work Phone: [facility] 10-18-2024 07:23-0500 Systolic blood pressure 120 mm[Hg] Dr. Atul Harvey DO Work Phone: [phone] [place] [address] 10-18-2024 02:15-0500 Inhaled oxygen flow rate 2 L/min Dr. Atul Harvey DO Work Phone: [phone] [place] [address] 10-17-2024 15:07-0500 Body weight 69.[address] Atul Harvey DO Work Phone: 4([phone] [place] [address] 10-12-2024 17:23-0500 Body mass index (BMI) [Ratio] 27.1 kg/m2 Dr. Atul Harvey DO Work Phone: [facility] 10-12-2024 12:37-0500 Body mass index (BMI) [Ratio] 27.81 kg/m2 Richard Praisler-Wood CENTRAL LAB TECHNICIAN.EPOXY SPECIALIST Work Phone: [facility] 10-12-2024 12:37-0500 Body temperature 102 [degF] Richard Praisler-Wood CENTRAL LAB TECHNICIAN.EPOXY SPECIALIST Work Phone: [facility] 10-12-2024 12:37-0500 Body weight 71.2 kg Richard Praisler-Wood CENTRAL LAB TECHNICIAN.EPOXY SPECIALIST Work Phone: [facility] 10-12-2024 12:37-0500 Diastolic blood pressure 80 mm[Hg] Richard Praisler-Wood CENTRAL LAB TECHNICIAN.EPOXY SPECIALIST Work Phone: [facility] 10-12-2024 12:37-0500 Heart rate 132 /min Richard Praisler-Wood CENTRAL LAB TECHNICIAN.EPOXY SPECIALIST Work Phone: [facility] 10-12-2024 12:37-0500 Respiratory rate 30 /min Richard Praisler-Wood CENTRAL LAB TECHNICIAN.EPOXY SPECIALIST Work Phone: [facility] 10-12-2024 12:37-0500 SaO2% (BldA) [Mass fraction] 95 % Richardjulia Jernigan-To CENTRAL LAB TECHNICIAN.EPOXY SPECIALIST Work Phone: [facility] 10-12-2024 12:37-0500 Systolic blood pressure 122 mm[Hg] Richardjulia Jernigan-To CENTRAL LAB TECHNICIAN.EPOXY SPECIALIST Work Phone: [facility] 08-22-2024 09:45-0500 Body mass index (BMI) [Ratio] 27.88 kg/m2 Atul Harvey DO Work Phone: [facility] 08-22-2024 09:45-0500 Body temperature 97 [degF] Atul Harvey DO Work Phone: [facility] 08-22-2024 09:45-0500 Body weight 71.4 kg Atul Harvey DO Work Phone: [facility] 08-22-2024 09:45-0500 Diastolic blood pressure 64 mm[Hg] Atul Harvey DO Work Phone: [facility] 08-22-2024 09:45-0500 Heart rate 60 /min Atul Harvey DO Work Phone: [facility] 08-22-2024 09:45-0500 Respiratory rate 20 /min Atul Harvey DO Work Phone: [facility] 08-22-2024 09:45-0500 Systolic blood pressure 122 mm[Hg] Atul Harvey DO Work Phone: [facility] 08-01-2024 10:26-0400 Body mass index (BMI) [Ratio] 28.09 kg/m2 Rasheed Barrios MD Work Phone: [facility] 08-01-2024 10:26-0400 Body temperature 97.3 [degF] Rasheed Barrios MD Work Phone: [facility] 08-01-2024 10:26-0400 Body weight 71.94 kg Rasheed Barrios MD Work Phone: [facility] 08-01-2024 10:26-0400 Diastolic blood pressure 75 mm[Hg] Rasheed Mustafa Work Phone: [facility] 08-01-2024 10:26-0400 Heart rate 52 /min Rasheed Barrios MD Work Phone: [facility] 08-01-2024 10:26-0400 Respiratory rate 18 /min Rasheed Barrios MD Work Phone: [facility] 08-01-2024 10:26-0400 SaO2% (BldA) [Mass fraction] 97 % Rasheed Barrios MD Work Phone: [facility] 08-01-2024 10:26-0400 Systolic blood pressure 124 mm[Hg] Rasheed Barrios MD Work Phone: [facility] 05-20-2024 09:46-0400 Body mass index (BMI) [Ratio] 29.29 kg/m2 Milana Armijo CENTRAL LAB TECHNICIAN.EPOXY SPECIALIST Work Phone: [facility] 05-20-2024 09:46-0400 Body weight 75 kg Milana Armijo CENTRAL LAB TECHNICIAN.EPOXY SPECIALIST Work Phone: [facility] 05-20-2024 09:46-0400 Diastolic blood pressure 62 mm[Hg] Milana Armijo CENTRAL LAB TECHNICIAN.EPOXY SPECIALIST Work Phone: [facility] 05-20-2024 09:46-0400 Heart rate 60 /min Milana Armijo CENTRAL LAB TECHNICIAN.EPOXY SPECIALIST Work Phone: [facility] 05-20-2024 09:46-0400 SaO2% (BldA) [Mass fraction] 96 % Milana Armijo CENTRAL LAB TECHNICIAN.EPOXY SPECIALIST Work Phone: [facility] 05-20-2024 09:46-0400 Systolic blood pressure 114 mm[Hg] Milana Armijo CENTRAL LAB TECHNICIAN.EPOXY SPECIALIST Work Phone: [facility] 03-18-2024 08:31-0400 Body mass index (BMI) [Ratio] 29.23 kg/m2 Catalina Jauregui CENTRAL LAB TECHNICIAN.EPOXY SPECIALIST Work Phone: [facility] 03-18-2024 08:31-0400 Body temperature 98.2 [degF] Catalina Ramírez CENTRAL LAB TECHNICIAN.EPOXY SPECIALIST Work Phone: [facility] 03-18-2024 08:31-0400 Body weight 74.84 kg Catalina Ramírez CENTRAL LAB TECHNICIAN.EPOXY SPECIALIST Work Phone: [facility] 03-18-2024 08:31-0400 Diastolic blood pressure 62 mm[Hg] Catalina Stutzma n CENTRAL LAB TECHNICIAN.EPOXY SPECIALIST Work Phone: [facility] 03-18-2024 08:31-0400 Heart rate 53 /min Catalina Ramírez CENTRAL LAB TECHNICIAN.EPOXY SPECIALIST Work Phone: [facility] 03-18-2024 08:31-0400 Respiratory rate 16 /min Catalina Ramírez CENTRAL LAB TECHNICIAN.EPOXY SPECIALIST Work Phone: [facility] 03-18-2024 08:31-0400 SaO2% (BldA) [Mass fraction] 98 % Catalina Ramírez CENTRAL LAB TECHNICIAN.EPOXY SPECIALIST Work Phone: [facility] 03-18-2024 08:31-0400 Systolic blood pressure 118 mm[Hg] Catalina Ramírez CENTRAL LAB TECHNICIAN.EPOXY SPECIALIST Work Phone: [facility] 03-16-2024 13:28-0400 Body mass index (BMI) [Ratio] 29.94 kg/m2 Catalina Ramírez CENTRAL LAB TECHNICIAN.EPOXY SPECIALIST Work Phone: [facility] 03-16-2024 13:28-0400 Body weight 76.66 kg Catalina Ramírez CENTRAL LAB TECHNICIAN.EPOXY SPECIALIST Work Phone: [facility] 03-16-2024 13:28-0400 Diastolic blood pressure 64 mm[Hg] Catalina Stutzma n CENTRAL LAB TECHNICIAN.EPOXY SPECIALIST Work Phone: [facility] 03-16-2024 13:28-0400 Heart rate 64 /min Catalina Ramírez CENTRAL LAB TECHNICIAN.EPOXY SPECIALIST Work Phone: [facility] 06-05-2024 13:28-0400 Respiratory rate 16 /min Catalina Ramírez CENTRAL LAB TECHNICIAN.EPOXY SPECIALIST Work Phone: [facility] 03-16-2024 13:28-0400 SaO2% (BldA) [Mass fraction] 97 % Catalina Ramírez CENTRAL LAB TECHNICIAN.EPOXY SPECIALIST Work Phone: [facility] 03-16-2024 13:28-0400 Systolic blood pressure 120 mm[Hg] Catalina Wayneman CENTRAL LAB TECHNICIAN.EPOXY SPECIALIST Work Phone: [facility] 02-17-2024 09:44-0400 Body mass index (BMI) [Ratio] 29.41 kg/m2 Atul Harvey DO Work Phone: [facility] 02-17-2024 09:44-0400 Body temperature 97.11 [degF] Atul Harvey DO Work Phone: [facility] 02-17-2024 09:44-0400 Body weight 75.3 kg Atul Harvey DO Work Phone: [facility] 02-17-2024 09:44-0400 Diastolic blood pressure 82 mm[Hg] Atul Harvey DO Work Phone: [facility] 02-17-2024 09:44-0400 Heart rate 60 /min Atul Harvey DO Work Phone: [facility] 02-17-2024 09:44-0400 Respiratory rate 16 /min Atul Harvey DO Work Phone: [facility] 02-17-2024 09:44-0400 Systolic blood pressure 120 mm[Hg] Atul Harvey DO Work Phone: [facility] 04-13-2023 09:22-0400 Body weight 74.39 kg Rasheed Barrios MD Work Phone: [facility] 04-13-2023 09:22-0400 Diastolic blood pressure 70 mm[Hg] Rasheed Mustafa Work Phone: [facility] 04-13-2023 09:22-0400 Heart rate 58 /min Rasheed Barrios MD Work Phone: [facility] 04-13-2023 09:22-0400 SaO2% (BldA) [Mass fraction] 97 % Rasheed Bariros MD Work Phone: [facility] 04-13-2023 09:22-0400 Systolic blood pressure 132 mm[Hg] Rasheed Barrios MD Work Phone: [facility] 03-18-2023 13:31-0400 Body temperature 99 [degF] Areli Tannhof CENTRAL LAB TECHNICIAN.EPOXY SPECIALIST Work Phone: [facility] 03-18-2023 13:31-0400 Body weight 75.3 kg Areli Tannhof CENTRAL LAB TECHNICIAN.EPOXY SPECIALIST Work Phone: [facility] 03-18-2023 13:31-0400 Diastolic blood pressure 82 mm[Hg] Areli Tannhof CENTRAL LAB TECHNICIAN.EPOXY SPECIALIST Work Phone: [facility] 03-18-2023 13:31-0400 Heart rate 66 /min Areli Tannhof CENTRAL LAB TECHNICIAN.EPOXY SPECIALIST Work Phone: [facility] 03-18-2023 13:31-0400 Respiratory rate 16 /min Areli Tannhof CENTRAL LAB TECHNICIAN.EPOXY SPECIALIST Work Phone: [facility] 03-18-2023 13:31-0400 SaO2% (BldA) [Mass fraction] 96 % Areli Tannhof CENTRAL LAB TECHNICIAN.EPOXY SPECIALIST Work Phone: [facility] 03-18-2023 13:31-0400 Systolic blood pressure 140 mm[Hg] Areli Tannhof CENTRAL LAB TECHNICIAN.EPOXY SPECIALIST Work Phone: [facility] 02-02-2023 09:36-0400 Body temperature 97 [degF] Atul Harvey DO Work Phone: [facility] 02-02-2023 09:36-0400 Body weight 75.3 kg Atul Harvey DO Work Phone: [facility] 02-02-2023 09:36-0400 Diastolic blood pressure 70 mm[Hg] Atul Harvey DO Work Phone: [facility] 02-02-2023 09:36-0400 Heart rate 64 /min Atul Harvey DO Work Phone: [facility] 02-02-2023 09:36-0400 Respiratory rate 16 /min Atul Harvey DO Work Phone: [facility] 02-02-2023 09:36-0400 Systolic blood pressure 130 mm[Hg] Atul Harvey DO Work Phone: [facility] 10-08-2022 10:46-0500 Body height 160 cm Christel Wilton PA-C Work Phone: [facility] 10-08-2022 10:46-0500 Body temperature 97.59 [degF] Christel Wilton PA-C Work Phone: [facility] 10-08-2022 10:46-0500 Body weight 74.12 kg Christel Wilton PA-C Work Phone: [facility] 10-08-2022 10:46-0500 Diastolic blood pressure 68 mm[Hg] Christel Diaz PA- C Work Phone: [facility] 10-08-2022 10:46-0500 Heart rate 71 /min Christel Diaz PA-C Work Phone: [facility] 10-08-2022 10:46-0500 SaO2% (BldA) [Mass fraction] 97 % Christel Wilton PA-C Work Phone: [facility] 10-08-2022 10:46-0500 Systolic blood pressure 120 mm[Hg] Christel Diaz PA-C Work Phone: [facility] 09-30-2022 10:38-0500 Heart rate 55 /min Preet Daly MD Work Phone: [facility] 09-30-2022 10:38-0500 Respiratory rate 16 /min Preet Daly MD Work Phone: [facility] 09-30-2022 10:38-0500 SaO2% (BldA) [Mass fraction] 97 % Preet Daly MD Work Phone: [facility] 09-30-2022 10:28-0500 Diastolic blood pressure 60 mm[Hg] Preet Daly MD Work Phone: [facility] 09-30-2022 10:28-0500 Systolic blood pressure 127 mm[Hg] Preet Daly MD Work Phone: [facility] 09-30-2022 08:54-0500 Body temperature 97.9 [degF] Preet Daly MD Work Phone: [facility] 09-30-2022 08:54-0500 Body weight 73.5 kg Preet Daly MD Work Phone: [facility] 09-16-2022 08:34-0500 Body temperature 97 [degF] Atul Harvey DO Work Phone: [facility] 09-16-2022 08:34-0500 Body weight 73.48 kg Atul Harvey DO Work Phone: [facility] 09-16-2022 08:34-0500 Diastolic blood pressure 60 mm[Hg] Atul Harvey DO Work Phone: [facility] 09-16-2022 08:34-0500 Heart rate 56 /min Atul Harvey DO Work Phone: [facility] 09-16-2022 08:34-0500 Respiratory rate 16 /min Atul Harvey DO Work Phone: [facility] 09-16-2022 08:34-0500 Systolic blood pressure 100 mm[Hg] Atul Harvey DO Work Phone: [facility] 08-06-2022 13:33-0400 Body height 160 cm Christel Diaz PA-C Work Phone: [facility] 08-06-2022 13:33-0400 Body temperature 97.2 [degF] Christel Wilton PA-C Work Phone: [facility] 08-06-2022 13:33-0400 Body weight 73.94 kg Christel Diaz PA-C Work Phone: [facility] 08-06-2022 13:33-0400 Diastolic blood pressure 82 mm[Hg] Christel Wilton PA- C Work Phone: [facility] 08-06-2022 13:33-0400 Heart rate 68 /min Christel Diaz PA-C Work Phone: [facility] 08-06-2022 13:33-0400 Respiratory rate 14 /min Christel Wilton PA-C Work Phone: [facility] 08-06-2022 13:33-0400 SaO2% (BldA) [Mass fraction] 95 % Christel Diaz PA-C Work Phone: [facility] 08-06-2022 13:33-0400 Systolic blood pressure 128 mm[Hg] Christel Diaz PA-C Work Phone: [facility] 07-08-2022 09:47-0400 Body temperature 97 [degF] Atul Harvey DO Work Phone: [facility] 07-08-2022 09:47-0400 Body weight 74.39 kg Atul Harvey DO Work Phone: [facility] 07-08-2022 09:47-0400 Diastolic blood pressure 70 mm[Hg] Atul Harvey DO Work Phone: [facility] 07-08-2022 09:47-0400 Heart rate 80 /min Atul Harvey DO Work Phone: [facility] 07-08-2022 09:47-0400 Respiratory rate 16 /min Atul Harvey DO Work Phone: [facility] 07-08-2022 09:47-0400 Systolic blood pressure 110 mm[Hg] Atul Harvey DO Work Phone: [facility] Encounters Encounter Date Encounter Type Care Provider Facility Start: 06-12-2025 Emergency department patient visit Atul Harvey Facility:[facility] Start: 05-31-2025 End: 05-31-2025 ambulatory Atul Red Harvey DO Work Phone: [facility] Comment on above: Allied Health Visit (Medication Adherence Outreach) Start: 05-22-2025 End: 05-22-2025 Patient encounter procedure Atul Harvey DO Work Phone: [facility] Comment on above: Iron deficiency anem ia, unspecified iron deficiency anemia type (Primary Dx); Gait disturbance; Dyslipidemia; Subclinical hypothyroidism; Vitamin D deficiency; Hypertension, essential; H/O splenectomy; IFG (impaired fasting glucose); Elevated LFTs Start: 05-22-2025 End: 05-22-2025 ambulatory ATUL HARVEY Facility:[facility] Start: 05-18-2025 End: 05-18-2025 ambulatory ATUL HARVEY Facility:[facility] Start: 05-09-2025 End: 05-09-2025 ambulatory Atul Harvey DO Work Phone: [facility] Comment on above: Allied Health Visit (Medication adherence outreach/) Start: 05-08-2025 End: 05-08-[address] Atul Harvey DO Work Phone: -[facility] [place] Start: 05-08-2025 End: 05-08-[address] Kimmie Hussein MD -[facility] [place] Work Phone: Start: 05-08-2025 End: 05-08-2025 ambulatory Kimmie Hussein Facility:[facility] Start: 04-24-2025 End: 04-24-2025 Follow-up encounter Josef Martinez APRN.CNP Work Phone: [facility] Start: 04-24-2025 End: 04-24-2025 Telephone encounter Josef Martinez APRN.CNP Work Phone: [facility] Comment on above: Appointment; Patient Update Start: 04-24-2025 End: 04-24-2025 Subsequent hospital visit by physician [facility] Work Phone: Radiology Comment on above: URI, acute [J06.9] Start: 04-24-2025 End: 04-24-2025 ambulatory ATUL HARVEY Facility:[facility] Start: 04-24-2025 End: 04-24-2025 Patient encounter procedure Josef Martinez APRN.CNP Work Phone: [facility] Comment on above: URI, acute (Primary Dx) Start: 03-27-2025 End: 03-27-2025 ambulatory RASHEED BARRIOS Facility:[facility] Start: 03-27-2025 End: 03-27-2025 Patient encounter procedure Rasheed Barrios MD Work Phone: Cardiology Comment on above: Paroxysmal atrial fi brillation (HCC) (Primary Dx); Pulmonary hypertension (HCC); Chronic diastolic congestive heart failure (HCC); Nonrheumatic mitral valve regurgitation; Hypertension, essential; Orthostatic hypotension; Thoracic aortic ectasia; Mixed hyperlipidemia Start: 02-15-2025 End: 02-17-2025 Telephone encounter Atul Harvey DO Work Phone: [facility] Comment on above: Patient Update; Home Health Point of Care Results Start: 02-13-2025 End: 02-13-[address] [facility] Start: 02-13-2025 End: 02-14-2025 Refill Rasheed Barrios MD Work Phone: Cardiology Comment on above: Refill Request Start: 02-13-2025 End: 02-13-2025 ambulatory Kimmie Hussein Facility:[facility] Start: 02-08-2025 End: 02-09-2025 Telephone encounter Atul Harvey DO Work Phone: [facility] Comment on above: Medication Question Start: 02-07-2025 End: 02-08-2025 Telephone encounter Rasheed Barrios MD Work Phone: Cardiology Comment on above: Medication Problem; Patient Question Start: 02-07-2025 End: 02-07-2025 ambulatory ATUL HARVEY Facility:[facility] Start: 02-07-2025 End: 02-07-2025 Patient encounter procedure Atul Harvey DO Work Phone: [facility] Comment on above: Spleen laceration in to parenchyma, sequela (Primary Dx); Subclinical hypothyroidism; Paroxysmal atrial fibrillation (HCC); Hypokalemia; Generalized weakness; Hypertension, essential; Dyslipidemia; H/O splenectomy; Iron deficiency anemia, unspecified iron deficiency anemia type Start: 02-06-2025 End: 02-06-2025 ambulatory ATUL HARVEY Facility:[facility] Start: 01-27-2025 End: 01-30-2025 Telephone encounter Atul Harvey DO Work Phone: [facility] Comment on above: Follow HH Orders Start: 01-26-2025 ambulatory Tate Bolton cility:[facility] Start: 01-26-2025 Registered Referred Tate Mancia Start: 01-24-2025 End: 01-24-[address] Tate Reynolds MD -[facility] Work Phone: Start: 01-24-2025 End: 01-24-[address] Atul Harvey DO Work Phone: [facility] Work Phone: Start: 01-24-2025 Registered Referred Tate Mancia Start: 01-19-2025 End: 01-19-[address] Atul Harvey DO Work Phone: [facility] Work Phone: Start: 01-19-2025 End: 01-19-2025 [facility] Work [facility]: Start: 01-18-2025 End: 01-18-2025 [facility] Work [facility]: Start: 01-18-2025 End: 01-18-[address] Atul Harvey DO Work Phone: [facility] Work Phone: Start: 01-18-2025 Registered Referred Tate [facility] [place] Start: 01-17-2025 End: 01-17-[address] Atul Harvey DO Work Phone: [facility] Work Phone: Start: 01-17-2025 End: 01-17-2025 Patient encounter procedure Lori Nuñez GENERAL OPHTHALMOLOGIST-C -[facility] Work Phone: Start: 01-17-2025 End: 01-18-2025 Telephone encounter Rasheed Barrios MD Work Phone: [facility] Comment on above: Patient Update; Appo intment Start: 01-10-2025 End: 01-11-2025 Telephone encounter Rasheed Barrios MD Work Phone: [facility] Start: 01-06-2025 End: 01-06-2025 ambulatory Esvin Ron APRN.[facility] Work Phone: Critical Care Start: 01-06-2025 End: 01-17-2025 Evaluation and management of inpatient ALI MALLAT Facility:[facility] Start: 01-06-2025 End: 01-06-2025 Emergency department patient [...] [facility] Comment on above: Patient Update Start: 11-30-2024 End: 11-30-2024 ambulatory Yecenia Bradford RN Vocational Training Director Management Comment on above: Initial enrollment o jose alejandro for Chronic Disease Management Start: 11-21-2024 End: 11-21-[address] Kimmie Hussein MD -Laboratory, [place] Work Phone: Start: 11-21-2024 End: 11-21-2024 ambulatory Kimmie Hussein Facility:[facility] Start: 11-18-2024 End: 11-18-2024 Telephone encounter Atul Harvey DO Work Phone: [facility] Comment on above: Patient fall Start: 11-16-2024 End: 11-17-2024 Telephone encounter Atul Harvey DO Work Phone: [facility] Comment on above: Medication Question Start: 11-11-2024 End: 11-11-2024 ambulatory ATUL HARVEY Facility:[facility] Start: 11-11-2024 End: 11-11-2024 Patient encounter procedure Maria E Brewster APRN.EPOXY SPECIALIST Work Phone: [facility] Comment on above: Rhinosinusitis (Prim jeanne Dx) Start: 11-07-2024 End: 11-07-2024 Telephone follow-up Kirstin Reyes RN Work Phone: Vocational Training Director Management Comment on above: Transition Of Care ( [facility], Follow-up Day 20) Started Weekly phone contact (Recurring) for Transitional Care Management Start: 11-07-2024 End: 11-07-2024 ambulatory Kirstin Reyes RN Work Phone: Vocational Training Director Management Start: 11-07-2024 End: 11-07-2024 Patient encounter procedure Rasheed Barrios MD Work Phone: Cardiology Comment on above: Paroxysmal atrial fi brillation (HCC) (Primary Dx); Hypertension, essential; Chronic diastolic congestive heart failure (HCC); Thoracic aortic ectasia (HCC); Nonrheumatic mitral valve regurgitation; PVC (premature ventricular contraction); Pulmonary hypertension (HCC) Start: 10-26-2024 End: 10-26-2024 Telephone encounter Atul Harvey DO Work Phone: [facility] Comment on above: Patient Update; Lanette ent Question Start: 10-25-2024 End: 10-25-2024 ambulatory ATUL HARVEY Facility:[facility] Start: 10-25-2024 End: 10-25-2024 Patient encounter procedure Catalina Jauregui EPOXY SPECIALIST Work Phone: [facility] Comment on above: New onset a-fib (HCC ) (Primary Dx); Encounter for immunization; RSV (acute bronchiolitis due to respiratory syncytial virus); Generalized weakness; Decreased appetite Start: 10-24-2024 End: 10-24-2024 Patient Outreach Kirstin Reyes RN Work Phone: Vocational Training Director Management Comment on above: Transition Of Care ( [facility], Discharge 10/18/24) Initial phone contact for Transitional Care Management, Started Weekly phone contact (Recurring) for Transitional Care Management Start: 10-20-2024 End: 10-20-2024 Refill Atul Harvey DO Work Phone: [facility] Comment on above: Refill Request Start: 10-18-2024 Non-patient / Non-visit Dr. Rasheed small [facility] Work Phone: Start: 10-17-2024 Non-patient / Non-visit Dr. Dea Serna MD [facility] Start: 10-16-2024 Non-patient / Non-visit [facility] Start: 10-16-2024 Non-patient / Non-visit Dr. Rasheed small [facility] Work Phone: Start: 10-15-2024 Non-patient / Non-visit Dr. Rasheed small [facility] Work Phone: Start: 10-14-2024 Non-patient / Non-visit Dr. Rasheed small [facility] Work Phone: Start: 10-13-2024 ambulatory Atul Harvey Facilit y:[facility] Start: 10-13-2024 Non-patient / Non-visit [facility]. [facility] Start: 10-12-2024 Non-patient / Non-visit Dr. [facility] stoddard [facility] Work Phone: Start: 10-12-2024 End: 10-18-2024 Evaluation and management of inpatient Dr. Rasheed Ledezma MD -Progressive Care Unit Work Phone: Start: 10-12-2024 ambulatory Yuri Meier [place] [facility] [place] Start: 10-12-2024 End: 10-12-2024 Patient encounter procedure Richard Pineda APRN.CNP Work Phone: [facility] Comment on above: SOB (shortness of br eath) (Primary Dx); Fever, unspecified fever cause Start: 10-12-2024 End: 10-12-2024 ambulatory ATUL HARVEY Facility:[facility] Start: 10-11-2024 End: 10-11-2024 Telephone encounter Atul Harvey DO Work Phone: [facility] Comment on above: Patient Update Start: 10-06-2024 End: 10-07-2024 Telephone encounter Atul Harvey DO Work Phone: [facility] Comment on above: Medication Question Start: 09-19-2024 End: 09-19-2024 ambulatory AUTL HARVEY Facility:[facility] Start: 09-19-2024 End: 09-19-2024 Patient encounter procedure Phuc Marti MD Work Phone: Orthopaedics Comment on above: 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 (Primary Dx); Left wrist pain Start: 09-16-2024 End: 09-19-2024 ambulatory Mitesh Mccabe RN Work Phone: Vocational Training Director Management Comment on above: community monitoring outreach (Monthly cdm call) Start: 08-31-2024 End: 09-01-2024 Telephone encounter Atul Harvey DO Work Phone: [facility] Start: 08-22-2024 End: 08-22-2024 Subsequent hospital visit by physician [facility] Work Phone: Radiology Comment on above: Left wrist pain [M25 .532] Start: 08-22-2024 End: 08-22-2024 ambulatory ATUL HARVEY Facility:[facility] Start: 08-22-2024 End: 08-22-2024 Patient encounter procedure Atul Harvey DO Work Phone: [facility] Comment on above: Left wrist pain (Subha yared Dx); Hypertension, essential; Hypokalemia; Need for influenza vaccination; Dyslipidemia; Vitamin D deficiency; Subclinical hypothyroidism; Vitamin B12 deficiency; Fatty liver; IFG (impaired fasting glucose) Start: 08-22-2024 End: 08-22-2024 ambulatory ATUL HARVEY Facility:[facility] Start: 08-16-2024 End: 08-16-2024 ambulatory CECILIARAE SKY Facility:[facility] Start: 08-12-2024 End: 08-15-2024 Telephone encounter Atul Harvey DO Work Phone: [facility] Comment on above: Lab Orders Start: 08-01-2024 End: 08-01-2024 ambulatory ATUL HARVEY Facility:[facility] Start: 08-01-2024 End: 08-01-2024 Patient encounter procedure Rasheed Barrios MD Work Phone: Cardiology Comment on above: Chronic diastolic co ngestive heart failure (HCC) (Primary Dx); Nonrheumatic mitral valve regurgitation; Thoracic aortic ectasia (HCC); Hypertension, essential; Dyslipidemia; Atrial arrhythmia; Pulmonary hypertension (HCC); Palpitations Start: 07-21-2024 End: 07-22-2024 ambulatory Mitesh Mccabe RN Work Phone: Vocational Training Director Management Comment on above: community monitoring outreach (Monthly cdm call) Start: 07-04-2024 End: 07-04-2024 ambulatory Kimmie Hussein Facility:[facility] Start: 06-27-2024 End: 06-28-2024 ambulatory Mitesh Mccabe RN Work Phone: Vocational Training Director Management Comment on above: community monitoring outreach (Monthly cdm call) Start: 05-30-2024 End: 05-31-2024 ambulatory Mitesh Mccabe RN Work Phone: Vocational Training Director Management Comment on above: community monitoring outreach (Monthly cdm call) Start: 05-26-2024 End: 05-26-2024 Subsequent hospital visit by physician [facility] Work Phone: Radiology Comment on above: Fatty liver [K76.0] Start: 05-20-2024 End: 05-20-2024 Patient encounter procedure Milana Armijo CENTRAL LAB TECHNICIAN.EPOXY SPECIALIST Work Phone: Family Medicine [place] Comment on above: Yeast dermatitis (Pr imary Dx) Start: 05-10-2024 Refill Atul gan DO Work Phone: [facility] Medicine [place] Comment on above: Refill Request Start: 05-04-2024 Telephone encounter Rasheed Barrios MD Work Phone: [facility] Comment on above: Results Start: 05-02-2024 ambulatory Mitesh Mccabe RN Work Phone: Vocational Training Director Management Comment on above: community monitoring outreach (Monthly cdm call) Start: 04-06-2024 ambulatory Mitesh Mccabe RN Work Phone: Vocational Training Director Management Comment on above: community monitoring outreach (Monthly cdm call) Start: 03-18-2024 End: 03-18-2024 Patient encounter procedure Catalina Jauregui CENTRAL LAB TECHNICIAN.EPOXY SPECIALIST Work Phone: [facility] Medicine [place] Comment on above: Wasp sting, accident al or unintentional, subsequent encounter (Primary Dx); Cellulitis of left upper extremity Start: 03-16-2024 ambulatory Atul gan DO Work Phone: [facility] Medicine [place] Comment on above: wasp sting Start: 03-16-2024 End: 03-16-2024 Patient encounter procedure Catalina Ramírez CENTRAL LAB TECHNICIAN.EPOXY SPECIALIST Work Phone: [facility] [place] Comment on above: Wasp sting, accident al or unintentional, initial encounter (Primary Dx); Cellulitis of left upper extremity Start: 03-12-2024 Refill Milanadeepthi Armijo CENTRAL LAB TECHNICIAN.EPOXY SPECIALIST Work Phone: [facility] [place] Comment on above: Med Change Request Start: 03-11-2024 Refill Atul gan DO Work Phone: [facility] [place] Comment on above: Refill Request Start: 03-03-2024 Refill Atul gan DO Work Phone: [facility] [place] Comment on above: Refill Request Start: 03-02-2024 ambulatory Mitesh Mccabe RN Work Phone: Vocational Training Director Management Comment on above: community monitoring outreach (Monthly cdm call) Start: 02-23-2024 Telephone encounter Atul castañeda DO Work Phone: [facility] [place] Start: 02-23-2024 End: 02-23-2024 Subsequent hospital visit by physician [facility] Work Phone: Radiology Comment on above: Elevated LFTs [R79.8 9] Start: 02-21-2024 Refill Milana Armijo CENTRAL LAB TECHNICIAN.EPOXY SPECIALIST Work Phone: [facility] [place] Comment on above: Refill Request Start: 02-17-2024 Telephone encounter Atul castañeda DO Work Phone: [facility] [place] Comment on above: Results Start: 02-17-2024 End: 02-17-2024 Patient encounter procedure Atul Harvey DO Work Phone: [facility] [place] Comment on above: IFG (impaired fastin g glucose) (Primary Dx); Dermatitis; Itching; Wasp sting, accidental or unintentional, initial encounter; Weight gain; Borderline abnormal thyroid function test; Elevated AST (SGOT); Rheumatoid arthritis involving multiple sites with positive rheumatoid factor (HCC); Calcified granuloma of lung (HCC); Stage 3b chronic kidney disease (HCC); Dyslipidemia Start: 02-05-2024 Refill Milana Armijo CENTRAL LAB TECHNICIAN.EPOXY SPECIALIST Work Phone: [facility] [place] Comment on above: Refill Request Start: 01-26-2024 Telephone encounter Atul castañeda DO Work Phone: [facility] [place] Start: 01-14-2024 Refill Atul gan DO Work Phone: [facility] [place] Comment on above: Refill Request Start: 01-11-2024 ambulatory Mitesh Mccabe RN Work Phone: Vocational Training Director Management Comment on above: community monitoring outreach (Monthly cdm call) Start: 01-10-2024 Refill Milana Armijo EU[place] Work Phone: [facility] Comment on above: Refill Request Start: 01-04-2024 End: 01-04-2024 ambulatory [facility] Work Phone: Start: 01-04-2024 End: 01-04-2024 Patient encounter procedure [place] Work Phone: Start: 12-14-2023 ambulatory Mitesh Mccabe RN Work Phone: Vocational Training Director Management Comment on above: community monitoring outreach (Monthly cdm call) Refill Request Start: 11-18-2023 Refill Atul gan DO Work Phone: [facility] Comment on above: Refill Request Start: 11-16-2023 ambulatory Mitesh Mccabe RN Work Phone: Vocational Training Director Management Comment on above: community monitoring outreaach (Monthly cdm call) Start: 10-29-2023 End: 10-29-2023 Subsequent hospital visit by physician [facility] Work Phone: Radiology Comment on above: Productive cough [R0 5.8] Start: 09-30-2023 ambulatory Mitesh Mccabe RN Work Phone: Vocational Training Director Management Comment on above: community monitoring outreach (Monthly cdm call) Start: 09-02-2023 ambulatory Mitesh Mccabe RN Work Phone: Vocational Training Director Management Comment on above: community monitoring outreach (Monthly cdm call) Start: 08-10-2023 End: 08-10-2023 ambulatory [facility] Work Phone: Start: 08-10-2023 End: 08-10-2023 Patient encounter procedure [place] Work Phone: Start: 08-05-2023 ambulatory Mitesh Mccabe RN Work Phone: Vocational Training Director Management Comment on above: community monitoring outreach (-cdm review) Start: 07-23-2023 Telephone encounter Atul Fagan benjitena Work Phone: Family Medicine [place] Comment on above: Patient Update Start: 07-13-2023 ambulatory Mitesh Mccabe RN Work Phone: Vocational Training Director Management Comment on above: community monitoring outreach (Monthly cdm call) Start: 06-25-2023 Telephone encounter Atul Fagan benjitena HENDERSON Work Phone: [facility] [place] Comment on above: Patient Update Start: 06-22-2023 Telephone encounter Autl castañeda DO Work Phone: [facility] [place] Comment on above: Patient Question Start: 06-12-2023 ambulatory Mitesh Mccabe RN Work Phone: Vocational Training Director Management Comment on above: community monitoring outreach (Monthly cdm call) Start: 05-18-2023 ambulatory Mitesh Mccabe RN Work Phone: Vocational Training Director Management Comment on above: community monitoring outreach (Monthly cdm call) Start: 04-17-2023 Telephone encounter Fatimah Manzano APRN.EPOXY SPECIALIST Work Phone: [facility] Cardiology Comment on above: Results [...] Dyslipidemia; Palpitations Start: 03-18-2023 Telephone encounter Atul Red Rylan leblanctena DO Work Phone: [facility] [place] Comment on above: Cough Start: 03-18-2023 End: 03-18-2023 Patient encounter procedure Areli Duncan APRN.EPOXY SPECIALIST Work Phone: [facility] Comment on above: Acute bronchitis, un specified organism (Primary Dx) Start: 03-16-2023 ambulatory Mitesh Mccabe RN Work Phone: Vocational Training Director Management Comment on above: community monitoring outreach (Monthly cdm call) Start: 02-23-2023 Refill Atul gan DO Work Phone: [facility] Comment on above: Refill Request Start: 02-02-2023 End: 02-02-2023 Patient encounter procedure Atul Harvey DO Work Phone: [facility] Comment on above: Hypertension, essent ial (Primary Dx); Hypokalemia; Vitamin D deficiency; Alkaline phosphatase elevation; IFG (impaired fasting glucose); Dyslipidemia; Vitamin B12 deficiency; Stage 3b chronic kidney disease (HCC); Rheumatoid arthritis involving multiple sites with positive rheumatoid factor (HCC); Thoracic aortic ectasia (HCC); Pulmonary fibrosis, unspecified (HCC); Pulmonary hypertension (HCC) Start: 01-05-2023 Refill Atul gan DO Work Phone: [facility] Comment on above: Refill Request Start: 12-29-2022 Refill Atul gan DO Work Phone: [facility] Comment on above: Refill Request Start: 12-22-2022 ambulatory Katja Hay Work Phone: Vocational Training Director Management Comment on above: community monitoring outreach (Cdm telephonic outreach) Start: 12-15-2022 End: 12-15-2022 ambulatory [facility] Work Phone: Start: 12-15-2022 End: 12-15-2022 Patient encounter procedure [facility] Start: 12-03-2022 Refill Milana Armijo APRN.EPOXY SPECIALIST Work Phone: [facility] Comment on above: Refill Request Start: 11-28-2022 ambulatory Katja Lo R N Work Phone: Vocational Training Director Management Comment on above: community monitoring outreach (Cdm telephonic outreach) Start: 11-13-2022 End: 11-13-2022 ambulatory [facility] Work Phone: Start: 11-13-2022 End: 11-13-2022 Patient encounter procedure [facility] Start: 11-06-2022 Refill Milana Armijo [place].EPOXY SPECIALIST Work Phone: Family [facility] Comment on above: Refill Request Start: 11-05-2022 ambulatory Katja Hay Work Phone: Vocational Training Director Management Comment on above: community monitoring outreach (Cdm telephonic outreach) Start: 10-28-2022 Refill Atul gan DO Work Phone: Family [facility] Comment on above: Refill Request Start: 10-22-2022 Telephone encounter Atul castañeda DO Work Phone: Internal Medicine [place] Comment on above: Insurance Authorizat ion Start: 10-15-2022 ambulatory Katja Hay Work Phone: Vocational Training Director Management Comment on above: community monitoring outreach (Cdm telephonic outreach) Start: 10-15-2022 Telephone encounter Atul castañeda DO Work Phone: Family [facility] Comment on above: Medication Problem Start: 10-08-2022 End: 10-08-2022 Patient encounter procedure Christel Núñez PA-C Work Phone: General Surgery Comment on above: History of colonic p olyps (Primary Dx); Tubular adenoma Start: 10-07-2022 Telephone encounter Atul castañeda DO Work Phone: Family [facility] Comment on above: Results Start: 10-01-2022 End: 10-01-2022 Subsequent hospital visit by physician [facility] Work Phone: Radiology Comment on above: Alkaline phosphatase elevation [R74.8] Start: 09-30-2022 End: 09-30-2022 Subsequent hospital visit by physician Preet Daly MD Work Phone: Ambulatory Surgery Comment on above: Screening for colon cancer [Z12.11] Start: 09-24-2022 Telephone encounter Atul castañeda DO Work Phone: Family Medicine [place] Comment on above: Results Start: 09-22-2022 ambulatory Katja Cooper N Work Phone: Vocational Training Director Management Comment on above: community monitoring outreach (Cdm telephonic outreach) Start: 09-16-2022 End: 09-16-2022 Patient encounter procedure Atul Harvey DO Work Phone: Family Medicine [place] Comment on above: Abdominal cramping ( Primary Dx); Functional diarrhea; Hypertension, essential; Alkaline phosphatase elevation; Vitamin D deficiency; IFG (impaired fasting glucose); Dyslipidemia; Stage 3b chronic kidney disease (HCC); Vitamin B12 deficiency; Rheumatoid arthritis involving multiple sites with positive rheumatoid factor (HCC) Start: 09-01-2022 Refill Milana anders APRN.EPOXY SPECIALIST Work Phone: Family Medicine [place] Comment on above: Refill Request Start: 08-27-2022 ambulatory Katjaelvia Lo R N Work Phone: Vocational Training Director Management Comment on above: community monitoring outreach (Cdm telephonic outreach) Start: 08-22-2022 ambulatory Katjaelvia Lo R N Work Phone: Vocational Training Director Management Comment on above: community monitoring outreach (Cdm telephonic outreach) Start: 08-06-2022 End: 08-06-2022 Patient encounter procedure Christel Núñez PA-C Work Phone: General Surgery Comment on above: Encounter for screen ing for malignant neoplasm of colon (Primary Dx); History of colonic polyps Start: 07-31-2022 ambulatory Katja Lo R N Work Phone: Vocational Training Director Management Comment on above: community monitoring outreach (Cdm telephonic outreach) Start: 07-17-2022 Documentation procedure Mammography Coordinator [facility] Start: 07-17-2022 Letter encounter Mammography Coordin ator [facility] Department Start: 07-17-2022 Telephone encounter Catalina Bolanos APRN.EPOXY SPECIALIST Work Phone: Family Medicine [place] Comment on above: Results Start: 07-17-2022 End: 07-17-2022 Subsequent hospital visit by physician [facility] Comment on above: Encounter for screen ing mammogram for malignant neoplasm of breast [Z12.31] Start: 07-11-2022 Telephone encounter Atul castañeda DO Work Phone: [facility] Comment on above: Patient Request Start: 07-08-2022 End: 07-08-2022 Patient encounter procedure Atul Harvey DO Work Phone: [facility] Comment on above: Hypertension, essent ial (Primary [...] (HCC) Start: 07-04-2022 ambulatory Katja Lo R Satnam Work Phone: Vocational Training Director Management Comment on above: community monitoring outreach (Cdm telephonic outreach) Start: 06-09-2022 Refill Atul gan DO Work Phone: [facility] Comment on above: Refill Request Start: 06-04-2022 ambulatory Katjaelvia Lo R Satnam Work Phone: Vocational Training Director Management Comment on above: community monitoring outreach (Cdm telephonic outreach) Start: 05-28-2022 End: 05-28-2022 ambulatory [facility] Work Phone: Start: 05-28-2022 End: 05-28-2022 Patient encounter procedure [facility] Start: 05-07-2022 Refill Milana anders APRN.EPOXY SPECIALIST Work Phone: [facility] Comment on above: Refill Request Start: 04-25-2022 ambulatory Katjaelvia Lo R Satnam Work Phone: Vocational Training Director Management Comment on above: community monitoring outreach (cdm telephonic outreach) Start: 04-10-2022 ambulatory Katja Teresita R N Work Phone: Vocational Training Director Management Comment on above: community monitoring outreach (telephonic outreach) Start: 04-07-2022 Telephone encounter Atul castañeda DO Work Phone: [facility] [place] Comment on above: Medication Problem Start: 04-02-2022 Refill Atul gan DO Work Phone: [facility] [place] Comment on above: Refill Request Results Start: 03-31-2022 Telephone encounter Atul castañeda DO Work Phone: [facility] [place] Comment on above: Results Start: 03-20-2022 ambulatory Katja Lo R N Work Phone: Vocational Training Director Management Comment on above: community monitoring outreach (telephonic outreach) Start: 03-11-2022 Refill Atul gan DO Work Phone: [facility] [place] Comment on above: Refill Request Start: 03-06-2022 ambulatory Katja Lo R N Work Phone: Vocational Training Director Management Comment on above: community monitoring outreach (telephonic outreach) Start: 02-06-2022 ambulatory Danielle Hagen RN Work Phone: Vocational Training Director Management Comment on above: Community Monitoring Outreach ([employer] Enrollement Outreach (4th attempt)) Start: 02-03-2022 End: 02-03-2022 Patient encounter procedure [place] Start: 01-16-2022 Refill Atul gan DO Work Phone: [facility] [place] Comment on above: Refill Request Start: 10-02-2021 Telephone encounter Maria E Brewster APRN.CNP Work Phone: [place] [facility] Comment on above: Results Start: 09-27-2021 Telephone encounter Atul castañeda DO Work Phone: [facility] [place] Comment on above: Patient Update Start: 01-29-2021 End: 01-29-2021 Subsequent hospital visit by physician [facility] [place] Work Phone: Radiology Comment on above: Neck pain, bilateral [M54.2] Procedures Date Procedure Procedure Detail Performing Clinician Start: 04-24-2025 Radiologic exam ches t 2 views Josef Martinez CENTRAL LAB TECHNICIAN.EPOXY SPECIALIST Work Phone: Start: 04-24-2025 Infectious agent dna /rna influenza 1st 2 types [facility] Provider Start: 04-24-2025 Sars-cov-2 detection by dna/rna [facility] Provider Start: 02-07-2025 H/O splenectomy H/O splenectomy Jord an L Wes DO Work Phone: Start: 01-18-2025 Vitamin D, 25-hydrox y measurement Dr. Atul Harvey DO Work Phone: Comment on above: Vitamin D StatusDefi ciency: <20 ng/mL (50nmol/L)Insufficiency: 20-30 ng/mL (50-75 nmol/L)Sufficiency: 30-100 ng/mL (75-250 nmol/L)Toxicity: >100 ng/mL (>250 nmol/L) Start: 01-11-2025 Echocardiography ALI MA LLAT Start: 01-06-2025 Antibody screen LEONEL PEREZ LAT Comment on above: Order Comment: Speci men Type: BLOOD SPECIMENOrdering Facility: [facility] Address: [address] [place] [address] Performed By: #### T SCR ####[facility] BLOOD BANKCLIA [id number] [place] [address] [place] Start: 01-06-2025 Estimated [...] abdominal real ti me w/image limited Atul Harvey DO Work Phone: Start: 02-23-2024 Us abdominal real ti me w/image limited Atul Harvey DO Work Phone: Start: 02-17-2024 Adult depression scr eening assessment Rasheed Barrios MD Work Phone: Start: 10-29-2023 Radiologic exam ches t 2 views Milana Armijo CENTRAL LAB TECHNICIAN.EPOXY SPECIALIST Work Phone: Start: 04-17-2023 Echo tthrc r-t 2d w/ wom-mode compl spec&colr d Rasheed Barrios MD Work Phone: Start: 12-15-2022 Ultrasonography of abdomen Start: 10-01-2022 Us abdominal real ti me w/image limited Atul Harvey DO Work Phone: Start: 09-30-2022 Level iv surg pathol ogy gross&microscopic exam Preet Daly MD Work Phone: Start: 09-30-2022 Colonoscopy flx dx w /collj spec when pfrmd Atul Harvey DO Work Phone: Start: 09-30-2022 Colonoscopy Christel navarro PA-C Work Phone: Start: 07-17-2022 Screening mammograph y bi 2-view breast inc cad Atul Harvey DO Work Phone: Start: 07-08-2022 INFLUENZA SEASONAL QUADRIVALENT HIGH DOSE AGE 65+ Atul Boleson DO Work Phone: Start: 01-29-2021 Radex spine cervical 4 or 5 views Atul Harvey DO Work Phone: H/O splenectomy H/O splenectomy Atul Harvey DO Work Phone: Plan of Treatment Date Care Activity Detail Author Start: 05-18-2028 Diabetes Screening Diabetes Screening [facility] Start: 02-07-2028 Diabetes Screening Diabetes Screening [facility] Start: 01-18-2028 Diabetes Screening Diabetes Screening [facility] Start: 01-13-2028 Diabetes Screening Diabetes Screening [facility] Start: 01-12-2028 Diabetes Screening Diabetes Screening [facility] Start: 01-07-2028 Diabetes Screening Diabetes Screening [facility] Start: 08-16-2027 Diabetes Screening Diabetes Screening [facility] Start: 02-08-2027 Diabetes Screening Diabetes Screening [facility] Start: 07-27-2026 Diabetes Screening Diabetes Screening [facility] Start: 01-26-2026 DIABETES SCREEN DIABETES SCREEN [facility] Start: 01-26-2026 Diabetes Screening Diabetes Screening [facility] Start: 09-30-2025 Colonoscopy COLONOSCOPY [facility] Start: 09-30-2025 COLORECTAL CANCER SCREENING COLORECTAL CANCER SCREENING [facility] Start: 09-30-2025 Screening for malignant neoplasm of colon [facility] Start: 09-12-2025 DIABETES SCREEN DIABETES SCREEN [facility] Start: 09-11-2025 End: 09-11-2025 Patient encounter procedure 09/11/2025 9:40 AM EST Office Visit Family Medicine [facility] [address] [place], [place] [id number] Atul Harvey DO [address] [place] [id number] 4 month follow up Family [facility] [place] Comment on above: 4 month follow up Start: 08-22-2025 Covid-19 Vaccine ( season) Covid-19 Vaccine ( season) [facility] Comment on above: Postponed from 06/12/2024 (Declined at t his time) Start: 07-17-2025 End: 07-17-2025 Patient encounter procedure 07/17/2025 10:20 AM EDT Office Visit Cardiology [address] [place], [place] [id number] Rasheed Barrios MD [address] [place], [place] [id number] 6 month follow up Cardiology Comment on above: 6 month follow up Start: 07-01-2025 DIABETES SCREEN DIABETES SCREEN [facility] Start: 06-22-2025 End: 08-20-2025 CBC panel - Blood by Automated count COMPLETE BLOOD COUNT Lab Routine Iron deficiency anemia, unspecified iron deficiency anemia type Expected: 06/22/2025, Expires: 08/20/2025 [facility] Work Phone: Comment on above: Expected: 06/22/2025, Expires: Start: 06-22-2025 End: 09-20-2025 Iron and Iron binding capacity panel - Serum or Plasma IRON AND TIBC Lab Routine Iron deficiency anemia, unspecified iron deficiency anemia type Expected: 06/22/2025, Expires: 09/20/2025 [facility] Comment on above: Expected: 06/22/2025, Expires: Start: 06-12-2025 Influenza [facility] Start: 05-22-2025 End: 05-22-2025 Patient encounter procedure 05/22/2025 1:40 PM EDT Office Visit Family [facility] [address] [place], [place] [id number] Atul Harvey DO [address] [place], [place] [id number] 3 month follow up Family [facility] [place] Comment on above: 3 month follow up Start: 05-09-2025 End: 08-08-2025 CBC panel - Blood by Automated count COMPLETE BLOOD COUNT Lab Routine Iron deficiency anemia, unspecified iron deficiency anemia type Expected: 05/09/2025, Expires: 08/08/2025 [facility] Comment on above: Expected: 05/09/2025, Expires: Start: 05-09-2025 End: 08-08-2025 Comprehensive metabolic 2000 panel - Serum or Plasma COMPREHENSIVE METABOLIC PANEL Lab Routine Hypokalemia Generalized weakness Hypertension, essential Iron deficiency anemia, unspecified iron deficiency anemia type Expected: 05/09/2025, Expires: 08/08/2025 [facility] Work Phone: Comment on above: Expected: 05/09/2025, Expires: Start: 05-09-2025 End: 08-08-2025 Iron and Iron binding capacity panel - Serum or Plasma IRON AND TIBC Lab Routine Iron deficiency anemia, unspecified iron deficiency anemia type Expected: 05/09/2025, Expires: 08/08/2025 [facility] Comment on above: Expected: 05/09/2025, Expires: Start: 05-09-2025 End: 08-08-2025 Thyrotropin [Units/volume] in Serum or Plasma THYROID STIMULATING HORMONE Lab Routine Subclinical hypothyroidism Expected: 05/09/2025, Expires: 08/08/2025 [facility] Comment on above: Expected: 05/09/2025, Expires: Start: 05-09-2025 End: 08-08-2025 Thyroxine (T4) free [Mass/volume] in Serum or Plasma T4 FREE/FREE THYROXINE Lab Routine Subclinical hypothyroidism Expected: 05/09/2025, Expires: 08/08/2025 [facility] Comment on above: Expected: 05/09/2025, Expires: Start: 03-27-2025 DIABETES SCREEN DIABETES SCREEN [facility] Start: 03-27-2025 End: 03-27-2025 Patient encounter procedure 03/27/2025 9:00 AM EDT Office Visit Cardiology [address] [place] [address] Rasheed Barrios MD [address] [phone] follow up Cardiology Comment on above: follow up Start: 03-10-2025 Meningococcal Conjugate Vaccine (2 - Risk 2-dose series) Meningococcal Conjugate Vaccine (2 - Risk 2-dose series) [facility] Start: 02-19-2025 End: 05-21-2025 25-hydroxyvitamin D3 [Mass/volume] in Serum or Plasma VITAMIN D 25 HYDROXY Lab Routine Vitamin D deficiency Expected: 02/19/2025, Expires: 05/21/2025 [facility] Comment on above: Expected: 02/19/2025, Expires: Start: 02-19-2025 End: 05-21-2025 CBC panel - Blood by Automated count COMPLETE BLOOD COUNT Lab Routine Subclinical hypothyroidism Expected: 02/19/2025, Expires: 05/21/2025 [facility] Comment on above: Expected: 02/19/2025, Expires: Start: 02-19-2025 End: 05-21-2025 Cobalamin (Vitamin B12) [Mass/volume] in Serum or Plasma VITAMIN B12 Lab Routine Vitamin B12 deficiency Expected: 02/19/2025, Expires: 05/21/2025 [facility] Comment on above: Expected: 02/19/2025, Expires: Start: 02-19-2025 End: 05-21-2025 Comprehensive metabolic 2000 panel - Serum or Plasma COMPREHENSIVE METABOLIC PANEL Lab Routine Subclinical hypothyroidism Expected: 02/19/2025, Expires: 05/21/2025 [facility] Comment on above: Expected: 02/19/2025, Expires: Start: 02-19-2025 End: 05-21-2025 Hemoglobin A1c in Blood HEMOGLOBIN A1C Lab Routine IFG (impaired fasting glucose) Expected: 02/19/2025, Expires: 05/21/2025 [facility] Comment on above: Expected: 02/19/2025, Expires: Start: 02-19-2025 End: 05-21-2025 Lipid 1996 panel - Serum or Plasma LIPID PANEL BASIC Lab Routine Dyslipidemia Expected: 02/19/2025, Expires: 05/21/2025 [facility] Comment on above: Expected: 02/19/2025, Expires: Start: 02-19-2025 End: 05-21-2025 Thyrotropin [Units/volume] in Serum or Plasma THYROID STIMULATING HORMONE Lab Routine Subclinical hypothyroidism Expected: 02/19/2025, Expires: 05/21/2025 [facility] Comment on above: Expected: 02/19/2025, Expires: Start: 02-16-2025 Anxiety Screening Anxiety Screening [facility] Start: 02-16-2025 Depression Screening Depression Screening [facility] Start: 02-13-2025 End: 02-13-2025 Patient encounter procedure 02/13/2025 1:00 PM EDT Office Visit Cardiology [address] [place], [place] [phone] Rasheed Barrios MD [address] [facility] [address] [place] [address] Unstable BP/HR, review medications (OK per 01/17/25 tele enc) Cardiology Comment on above: Unstable BP/HR, review medications (OK p er 01/17/25 tele enc) Start: 02-09-2025 Meningococcal B Vaccine (2 of 5 - Increased Risk Bexsero 3-dose series) Meningococcal B Vaccine (2 of 5 - Increased Risk Bexsero 3-dose series) [facility] Start: 02-07-2025 End: 05-09-2025 Measles virus IgG Ab [Units/volume] in Serum MEASLES IGG ANTIBODY Lab Routine Spleen laceration into parenchyma, sequela H/O splenectomy Expected: 02/07/2025, Expires: 05/09/2025 [facility] Comment on above: Expected: 02/07/2025, Expires: Start: 02-07-2025 End: 02-07-2025 Patient encounter procedure 02/07/2025 10:00 AM EDT Office Visit Family [facility] [place] [address] [place], [place] [id number] Atul Harvey, [address] [place], [place] [id number] 6 month follow up [facility] Comment on above: 6 month follow up Start: 01-17-2025 End: 01-17-2025 Patient encounter procedure 01/17/2025 2:30 PM EDT Office Visit [facility] [address] [phone] Prabhu Villanueva MD [address] [facility] [place] [address] meningioma [facility] Comment on above: meningioma Start: 01-06-2025 [facility] [place] [facility] Start: 01-06-2025 Leukocyte reduced red blood cells [facility] [place] [facility] Start: 01-06-2025 End: 01-06-2025 [facility] [place] [facility] Start: 01-06-2025 End: 01-06-2025 Administration of blood product [facility] [place] [facility] Start: 01-06-2025 Oxygen therapy [facility] [place] [facility] Start: 11-25-2024 DIABETES SCREEN DIABETES SCREEN [facility] Start: 11-07-2024 End: 11-07-2024 Patient encounter procedure Cardiology Comment on above: follow up 3 month Start: 10-25-2024 End: 10-25-2024 Patient encounter procedure 10/25/2024 10:20 AM EST Office Visit Family [facility] [address] [facility] [place] [address] Catalina Jauregui APRN.EPOXY SPECIALIST [address] [facility] [place] [place] [address] [facility] hosp D/C 10/18/2024 [facility] [place] Comment on above: [facility] hosp D/C 10/18/2024 [facility] Start: 10-23-2024 Covid-19 Vaccine () Covid-19 Vaccine () [facility] Comment on above: Postponed from 09/28/2023 (Declined at t his time) Start: 10-18-2024 Patient discharge [facility] [place] [facility] Start: 10-16-2024 Referral to tip banding machine operator [facility] Start: 10-15-2024 Care planning and problem solving actions [facility] [place] [facility] Start: 10-15-2024 [facility] [place] [facility] Start: 10-13-2024 End: 10-14-2024 [facility] [place] [facility] Start: 10-13-2024 Oxygen therapy [facility] [place] [facility] Start: 10-13-2024 Care planning and problem solving actions [facility] [place] [facility] Start: 10-13-2024 End: 10-13-2024 Care planning and problem solving actions [facility] [place] [facility] Start: 10-13-2024 Respiratory secretion precautions [facility] [place] [facility] Start: 10-13-2024 Inhalation therapy procedure [facility] [facility] Start: 10-12-2024 End: 10-13-2024 [facility] [place] [facility] Start: 10-12-2024 Following clinical pathway protocol [facility] [place] [facility] Start: 10-12-2024 Ambulation without limitation [facility] [facility] Start: 10-12-2024 Assessment of risk of venous thromboembolism [facility] [place] [facility] Start: 10-12-2024 Insertion of catheter into peripheral vein [facility] [facility] Start: 10-12-2024 Measuring intake and output [facility] Start: 10-12-2024 Providing care according to standard [facility] Start: 10-12-2024 Admission procedure [facility] [facility] Start: 10-12-2024 Medicare Advantage Annual Wellness Visit Medicare Advantage Annual Wellness Visit [facility] Start: 09-19-2024 End: 09-19-2024 Patient encounter procedure 09/19/2024 3:00 PM EST Office Visit Orthopaedics [address] [place] [address] Phuc Marti MD [address] [place] [address] Left wrist pain [M25.532] Orthopaedics Comment on above: Left wrist pain [M25.532] Start: 09-12-2024 End: 09-12-2024 Patient encounter procedure 09/12/2024 2:15 PM EST Office Visit Orthopaedics [address] [place] [address] Phuc Marti MD [address] [place] [address] Left wrist pain [M25.532] Orthopaedics Comment on above: Left wrist pain [M25.532] Start: 08-22-2024 End: 08-22-2024 Patient encounter procedure 08/22/2024 9:40 AM EST Office Visit Family [facility] [address] [place] [address] Atul Harvey DO [address] [place] [address] 6 Month follow up Family Medicine [facility] Comment on above: 6 Month follow up Start: 08-15-2024 End: 04-10-2025 25-hydroxyvitamin D3 [Mass/volume] in Serum or Plasma VITAMIN D 25 HYDROXY Lab Routine Vitamin D deficiency Expected: 08/15/2024 (Approximate), Expires: 04/10/2025 [facility] Comment on above: Expected: 08/15/2024 (Approximate), Expi res: 04/10/2025 Start: 08-15-2024 End: 04-10-2025 CBC panel - Blood by Automated count COMPLETE BLOOD COUNT Lab Routine Vitamin B12 deficiency Vitamin D deficiency Expected: 08/15/2024 (Approximate), Expires: 04/10/2025 [facility] Comment on above: Expected: 08/15/2024 (Approximate), Expi res: 04/10/2025 Start: 08-15-2024 End: 04-10-2025 Cobalamin (Vitamin B12) [Mass/volume] in Serum or Plasma VITAMIN B12 Lab Routine Vitamin B12 deficiency Expected: 08/15/2024 (Approximate), Expires: 04/10/2025 [facility] Comment on above: Expected: 08/15/2024 (Approximate), Expi res: 04/10/2025 Start: 08-15-2024 End: 04-10-2025 Comprehensive metabolic 2000 panel - Serum or Plasma COMPREHENSIVE METABOLIC PANEL Lab Routine Dyslipidemia IFG (impaired fasting glucose) Expected: 08/15/2024 (Approximate), Expires: 04/10/2025 [facility] Comment on above: Expected: 08/15/2024 (Approximate), Expi res: 04/10/2025 Start: 08-15-2024 End: 04-10-2025 Hemoglobin A1c in Blood HEMOGLOBIN A1C Lab Routine IFG (impaired fasting glucose) Expected: 08/15/2024 (Approximate), Expires: 04/10/2025 [facility] Comment on above: Expected: 08/15/2024 (Approximate), Expi res: 04/10/2025 Start: 08-15-2024 End: 04-10-2025 Lipid 1996 panel - Serum or Plasma LIPID PANEL BASIC Lab Routine Dyslipidemia Expected: 08/15/2024 (Approximate), Expires: 04/10/2025 [facility] Comment on above: Expected: 08/15/2024 (Approximate), Expi res: 04/10/2025 Start: 08-15-2024 End: 04-10-2025 Thyrotropin [Units/volume] in Serum or Plasma THYROID STIMULATING HORMONE Lab Routine Elevated TSH Expected: 08/15/2024 (Approximate), Expires: 04/10/2025 [facility] Comment on above: Expected: 08/15/2024 (Approximate), Expi res: 04/10/2025 Start: 08-15-2024 End: 04-10-2025 Thyroxine (T4) free [Mass/volume] in Serum or Plasma T4 FREE/FREE THYROXINE Lab Routine Elevated TSH Expected: 08/15/2024 (Approximate), Expires: 04/10/2025 [facility] Comment on above: Expected: 08/15/2024 (Approximate), Expi res: 04/10/2025 Start: 08-15-2024 End: 04-10-2025 Triiodothyronine (T3) [Mass/volume] in Serum or Plasma T3 Lab Routine Elevated TSH Expected: 08/15/2024 (Approximate), Expires: 04/10/2025 [facility] Work Phone: Comment on above: Expected: 08/15/2024 (Approximate), Expi res: 04/10/2025 Start: 08-03-2024 RSV Vaccine (1 - 1-dose 60+ series) RSV Vaccine (1 - 1-dose 60+ series) [facility] Comment on above: Postponed from 1999 (Declined at t his time) Start: 08-03-2024 RSV Vaccine (1 - 1-dose 75+ series) RSV Vaccine (1 - 1-dose 75+ series) [facility] Comment on above: Postponed from 2014 (Declined at t his time) Start: 08-03-2024 Urine microalbumin profile DTaP,Tdap,Td Vaccine (3 - Td or Tdap) [facility] Comment on above: Postponed from 02/24/2022 (Declined at t his time) Start: 08-01-2024 End: 08-01-2024 Patient encounter procedure 08/01/2024 10:40 AM EDT Office Visit Cardiology [address] [place] [id number] Rasheed Barrios MD [address] [place], [place] [phone] 6 month follow up Cardiology Comment on above: 6 month follow up Start: 06-12-2024 Covid-19 Vaccine ( season) Covid-19 Vaccine ( season) [facility] Start: 06-12-2024 Covid-19 Vaccine ( season) Covid-19 Vaccine ( season) [facility] Start: 06-12-2024 Influenza [facility] Start: 05-26-2024 End: 05-26-2024 Patient encounter procedure 05/26/2024 9:15 AM EDT Appointment Radiology [address] [place], [place] [id number] Fatty liver [K76.0] Radiology Comment on above: Fatty liver [K76.0] Start: 05-03-2024 End: 05-03-2024 Patient encounter procedure 05/03/2024 9:40 AM EDT Office Visit Cardiology [address] [place], [place] [address] Chronic diastolic congestive heart failure (HCC) [I50.32] Cardiology Comment on above: Chronic diastolic congestive heart failu re (HCC) [I50.32] Start: 03-20-2024 End: 06-19-2024 Thyrotropin [Units/volume] in Serum or Plasma THYROID STIMULATING HORMONE Lab Routine Subclinical hypothyroidism Expected: 03/20/2024, Expires: 06/19/2024 [facility] Work Phone: Comment on above: Expected: 03/20/2024, Expires: Start: 03-20-2024 End: 06-19-2024 Thyroxine (T4) free [Mass/volume] in Serum or Plasma T4 FREE/FREE THYROXINE Lab Routine Subclinical hypothyroidism Expected: 03/20/2024, Expires: 06/19/2024 [facility] Comment on above: Expected: 03/20/2024, Expires: Start: 03-18-2024 End: 03-18-2024 Patient encounter procedure 03/18/2024 8:20 AM EDT Office Visit [facility] [place] [address] [place] [address] Catalina Jauregui APRN.EPOXY SPECIALIST [address] [place] [address] Cellulitis [facility] Comment on above: Cellulitis Start: 02-23-2024 End: 02-23-2024 Patient encounter procedure 02/23/2024 7:45 AM EDT Appointment Radiology [address] [place] [address] Pelvic pain in female [R10.2] Radiology Comment on above: Pelvic pain in female [R10.2] Start: 02-17-2024 End: 02-17-2024 Patient encounter procedure 02/17/2024 9:40 AM EDT Office Visit [facility] [place] [address] [facility] [place] [address] Atul Harvey DO [address] [place] [address] 6 month follow up Family Medicine [facility] Comment on above: 6 month follow up Start: 01-27-2024 End: 04-27-2024 25-hydroxyvitamin D3 [Mass/volume] in Serum or Plasma VITAMIN D 25 HYDROXY Lab Routine Vitamin D deficiency Expected: 01/27/2024, Expires: 04/27/2024 [facility] Work Phone: Comment on above: Expected: 01/27/2024, Expires: Start: 01-27-2024 End: 04-27-2024 CBC panel - Blood by Automated count COMPLETE BLOOD COUNT Lab Routine IFG (impaired fasting glucose) Dyslipidemia Expected: 01/27/2024, Expires: 04/27/2024 [facility] Work Phone: Comment on above: Expected: 01/27/2024, Expires: Start: 01-27-2024 End: 04-27-2024 Cobalamin (Vitamin B12) [Mass/volume] in Serum or Plasma VITAMIN B12 Lab Routine Vitamin B12 deficiency Expected: 01/27/2024, Expires: 04/27/2024 [facility] Work Phone: Comment on above: Expected: 01/27/2024, Expires: Start: 01-27-2024 End: 04-27-2024 Comprehensive metabolic 2000 panel - Serum or Plasma COMPREHENSIVE METABOLIC PANEL Lab Routine IFG (impaired fasting glucose) Dyslipidemia Expected: 01/27/2024, Expires: 04/27/2024 [facility] Work Phone: Comment on above: Expected: 01/27/2024, Expires: Start: 01-27-2024 End: 04-27-2024 Hemoglobin A1c in Blood HEMOGLOBIN A1C Lab Routine Pre-diabetes IFG (impaired fasting glucose) Expected: 01/27/2024, Expires: 04/27/2024 [facility] Work Phone: Comment on above: Expected: 01/27/2024, Expires: Start: 01-27-2024 End: 04-27-2024 Lipid 1996 panel - Serum or Plasma LIPID PANEL BASIC Lab Routine Dyslipidemia Expected: 01/27/2024, Expires: 04/27/2024 [facility] Work Phone: Comment on above: Expected: 01/27/2024, Expires: Start: 10-12-2023 Behavioral Health Screening Behavioral Health Screening [facility] Start: 09-28-2023 Covid-19 Vaccine ( season) Covid-19 Vaccine () [facility] Start: 08-06-2023 End: 10-06-2023 25-hydroxyvitamin D3 [Mass/volume] in Serum or Plasma VITAMIN D 25 HYDROXY Lab Routine Vitamin D deficiency Expected: 08/06/2023, Expires: 10/06/2023 [facility] Work Phone: Comment on above: Expected: 08/06/2023, Expires: Start: 08-06-2023 End: 10-06-2023 CBC panel - Blood by Automated count CBC Lab Routine IFG (impaired fasting glucose) Dyslipidemia Expected: 08/06/2023, Expires: 10/06/2023 [facility] Work Phone: Comment on above: Expected: 08/06/2023, Expires: Start: 08-06-2023 End: 10-06-2023 Cobalamin (Vitamin B12) [Mass/volume] in Serum or Plasma VITAMIN B12 BLOOD Lab Routine Vitamin B12 deficiency Expected: 08/06/2023, Expires: 10/06/2023 [facility] Work Phone: Comment on above: Expected: 08/06/2023, Expires: Start: 08-06-2023 End: 10-06-2023 Comprehensive metabolic 2000 panel - Serum or Plasma COMP METABOLIC PANEL Lab Routine IFG (impaired fasting glucose) Dyslipidemia Expected: 08/06/2023, Expires: 10/06/2023 [facility] Work Phone: Comment on above: Expected: 08/06/2023, Expires: Start: 08-06-2023 End: 10-06-2023 Hemoglobin A1c in Blood HGB A1C Lab Routine IFG (impaired fasting glucose) Expected: 08/06/2023, Expires: 10/06/2023 [facility] Work Phone: Comment on above: Expected: 08/06/2023, Expires: Start: 08-06-2023 End: 10-06-2023 Lipid 1996 panel - Serum or Plasma LIPID PANEL BASIC Lab Routine Dyslipidemia Expected: 08/06/2023, Expires: 10/06/2023 [facility] Work Phone: Comment on above: Expected: 08/06/2023, Expires: 3 Start: 06-12-2023 Covid-19 Vaccine () Covid-19 Vaccine () [facility] Start: 06-12-2023 Influenza vaccination [facility] Start: 12-15-2022 End: 02-14-2023 25-hydroxyvitamin D3 [Mass/volume] in Serum or Plasma VITAMIN D 25 HYDROXY Lab Routine Vitamin D deficiency Expected: 12/15/2022, Expires: 02/14/2023 [facility] Work Phone: Comment on above: Expected: 12/15/2022, Expires: Start: 12-15-2022 End: 02-14-2023 CBC panel - Blood by Automated count CBC Lab Routine Stage 3b chronic kidney disease (HCC) Rheumatoid arthritis involving multiple sites with positive rheumatoid factor (HCC) Expected: 12/15/2022, Expires: 02/14/2023 [facility] Work Phone: Comment on above: Expected: 12/15/2022, Expires: 3 Start: 12-15-2022 End: 02-14-2023 Cobalamin (Vitamin B12) [Mass/volume] in Serum or Plasma VITAMIN B12 BLOOD Lab Routine Vitamin B12 deficiency Expected: 12/15/2022, Expires: 02/14/2023 [facility] Work Phone: Comment on above: Expected: 12/15/2022, Expires: 3 Start: 12-15-2022 End: 02-14-2023 Comprehensive metabolic 2000 panel - Serum or Plasma COMP METABOLIC PANEL Lab Routine Stage 3b chronic kidney disease (HCC) Rheumatoid arthritis involving multiple sites with positive rheumatoid factor (HCC) Expected: 12/15/2022, Expires: 02/14/2023 [facility] Work Phone: Comment on above: Expected: 12/15/2022, Expires: 3 Start: 12-15-2022 End: 02-14-2023 Hemoglobin A1c in Blood HGB A1C Lab Routine IFG (impaired fasting glucose) Expected: 12/15/2022, Expires: 02/14/2023 [facility] Work Phone: Comment on above: Expected: 12/15/2022, Expires: 3 Start: 12-15-2022 End: 02-14-2023 Lipid 1996 panel - Serum or Plasma LIPID PANEL BASIC Lab Routine Dyslipidemia Expected: 12/15/2022, Expires: 02/14/2023 [facility] Work Phone: Comment on above: Expected: 12/15/2022, Expires: 3 Start: 10-31-2022 COVID-19 VACCINE (5 - Pfizer risk series) COVID-19 VACCINE (5 - Pfizer risk series) [facility] Start: 10-12-2022 DEPRESSION ASSESSMENT DEPRESSION ASSESSMENT [facility] Start: 09-07-2022 End: 11-07-2022 Comprehensive metabolic 2000 panel - Serum or Plasma COMP METABOLIC PANEL Lab Routine Alkaline phosphatase elevation Expected: 09/07/2022, Expires: 11/07/2022 [facility] Work Phone: Comment on above: Expected: 09/07/2022, Expires: 3 Start: 09-07-2022 End: 11-07-2022 Lactate dehydrogenase [Enzymatic activity/volume] in Serum or Plasma LD LACTATE DEHYDRO Lab Routine Alkaline phosphatase elevation Expected: 09/07/2022, Expires: 11/07/2022 [facility] Work Phone: Comment on above: Expected: 09/07/2022, Expires: 3 Start: 09-07-2022 End: 11-07-2022 PROTEIN ELECTROPHORESIS SERUM W/INTERP PROTEIN ELECTROPHORESIS SERUM W/INTERP Lab Routine Alkaline phosphatase elevation Expected: 09/07/2022, Expires: 11/07/2022 [facility] Work Phone: Comment on above: Expected: 09/07/2022, Expires: 3 Start: 06-12-2022 Influenza vaccination INFLUENZA (#1) [facility] Start: 02-24-2022 Urine microalbumin profile [facility] Start: 11-27-2021 COVID-19 VACCINE (4 - Booster for Pfizer series) COVID-19 VACCINE (4 - Booster for Pfizer series) [facility] Start: 11-19-2021 COVID-19 VACCINE (4 - Booster for Pfizer series) COVID-19 VACCINE (4 - Booster for Pfizer series) [facility] Start: 10-22-2021 COVID-19 VACCINE (4 - Booster for Pfizer series) COVID-19 VACCINE (4 - Booster for Pfizer series) [facility] Start: 10-12-2021 ADVANCE DIRECTIVE DISCUSSION ADVANCE DIRECTIVE DISCUSSION [facility] Start: 11-15-2015 PNEUMOCOCCAL: 65+ (3 - PPSV23 or PCV20) PNEUMOCOCCAL: 65+ (3 - PPSV23 or PCV20) [facility] Start: 2014 RSV Vaccine (1 - 1-dose 75+ series) RSV Vaccine (1 - 1-dose 75+ series) [facility] Start: 12-16-2006 Screening for malignant neoplasm of cervix Cervical Cancer Screening [facility] Start: 1984 COLOGUARD (FIT-DNA) COLOGUARD (FIT-DNA) [facility] Start: [address] COLONOGRAPHY [facility] Start: 1984 FECAL OCCULT BLOOD FECAL OCCULT BLOOD [facility] Start: 1984 Screening for malignant neoplasm of colon [facility] Start: 1984 SIGMOIDOSCOPY SIGMOIDOSCOPY [facility] COVID & INFLUENZA A/ B & RSV PCR, ROUTINE COVID & INFLUENZA A/B & RSV PCR, ROUTINE Microbiology Routine URI, acute 04/24/2025 12:44 PM EDT [facility] COVID-19 MOLECULAR (POC) COVID-1 9 MOLECULAR (POC) Microbiology Routine URI, acute Ordered: 04/24/2025 [facility] Work Phone: Comment on above: Ordered: 04/24/2025 End: 04-13-2024 Echocardiography ECHO Cardiology Routine Palpitations 1 Occurrences starting 04/13/2023 until 04/13/2024 [facility] Work Phone: Comment on above: 1 Occurrences starting 04/13/2023 until 04/13/2024 INFLUENZA A&B MOLECU LAR (POC) INFLUENZA A&B MOLECULAR (POC) Microbiology Routine URI, acute Ordered: 04/24/2025 [facility] Comment on above: Ordered: 04/24/2025 OUTSIDE VENDOR CARDI AC OUTPATIENT EXTENDED RHYTHM RECORDING (WITHOUT TELEMETRY) OUTSIDE VENDOR CARDIAC OUTPATIENT EXTENDED RHYTHM RECORDING (WITHOUT TELEMETRY) Holter Routine Atrial arrhythmia Palpitations Ordered: 08/01/2024 [facility] Work Phone: Comment on above: Ordered: 08/01/2024 Patient referral [facility] Work Phone: End: 07-08-2023 Screening colonoscopy COLONOSCOPY SCREENING Endoscopy Routine Screening for colon cancer 1 Occurrences starting 07/08/2022 until 07/08/2023 [facility] Work Phone: Comment on above: 1 Occurrences starting 07/08/2022 until 07/08/2023 End: 08-07-2023 Screening mammography bi 2-view breast inc cad WILLI SCREENING Radiology Routine Encounter for screening mammogram for malignant neoplasm of breast 1 Occurrences starting 07/08/2022 until 08/07/2023 [facility] Work Phone: Comment on above: 1 Occurrences starting 07/08/2022 until 08/07/2023 End: 03-24-2025 US Abdomen RUQ US ABD RIGHT UPPER QUADRANT Radiology Routine Fatty liver 1 Occurrences starting 02/23/2024 until 03/24/2025 [facility] Work Phone: Comment on above: 1 Occurrences starting 02/23/2024 until 03/24/2025 End: 09-21-2025 XR Wrist - left PA and Lateral and Oblique XR WRIST GENERAL 3V PA/LAT/OBL LEFT Radiology Routine Left wrist pain 1 Occurrences starting 08/22/2024 until 09/21/2025 [facility] Work Phone: Comment on above: 1 Occurrences starting 08/22/2024 until 09/21/2025 XR Wrist - left PA a nd Lateral and Oblique XR WRIST GENERAL 3V PA/LAT/OBL LEFT Radiology Routine Left wrist pain 08/22/2024 11:47 AM EST [facility] Immunizations Immunization Date Immunization Notes Care Provider [facility] 01-13-2025 haemophilus influenz ae type b vaccine, PRP-T conjugate Rasheed Barrios MD Work Phone: [facility] 01-13-2025 meningococcal (MenACWY-TT) vaccine, quadrivalent (MENQUADFI) Rasheed Barrios MD Work Phone: [facility] 01-12-2025 meningococcal B vacc ine, recombinant, OMV, adjuvanted Rasheed Barrios MD Work Phone: [facility] 01-12-2025 pneumococcal conjuga te (PCV20) vaccine, 20 valent (PREVNAR 20) Rasheed Barrios MD Work Phone: [facility] 12-05-2024 respiratory syncytia l virus (RSV) vaccine, adjuvanted (AREXVY) Atul Harvey DO Work Phone: [facility] 08-22-2024 influenza, high dose seasonal, preservative-free Atul Harvey DO Work Phone: [facility] 08-22-2024 influenza virus vacc ine, unspecified formulation Josef Martinez APRN.EPOXY SPECIALIST Work Phone: [facility] 08-03-2023 COVID-19 vaccine, ag e 12+ yr, season (PFIZER-BIONTBarburrito) Mitesh Mccabe RN Work Phone: [facility] 08-03-2023 influenza (HD-IIV4) vaccine, age 65+ yr, high dose, quadrivalent, PF (FLUZONE HIGH-DOSE) Mitesh Mccabe RN Work Phone: [facility] 08-03-2023 influenza virus vacc ine, unspecified formulation Mitesh Mccabe RN Work Phone: [facility] 02-02-2023 pneumococcal (PCV20) vaccine, 20 valent (PREVNAR 20) Atul Kaplanrison DO Work Phone: [facility] Work Phone: 02-02-2023 pneumococcal Conjuga te, unspecified formulation Atul Kaplanrison DO Work Phone: [facility] Work Phone: 07-08-2022 influenza, high-dose , quadrivalent vaccine (FLUZONE HIGH DOSE QUADRIVALENT) Atul Kaplanrison DO Work Phone: [facility] Work Phone: 07-08-2022 influenza virus vacc ine, unspecified formulation Atul Harvey DO Work Phone: [facility] 08-27-2021 COVID-19 vaccine, ag e 12+ yr (PFIZER-BIONTECH - PURPLE TOP) Atul Kaplanrison DO Work Phone: [facility] Work Phone: 08-13-2021 influenza, high-dose , quadrivalent vaccine (FLUZONE HIGH DOSE QUADRIVALENT) Atul Kaplanrison DO Work Phone: [facility] Work Phone: 12-06-2020 COVID-19 vaccine, ag e 12+ yr (PFIZER-BIONTECH - PURPLE TOP) Atul Kaplanrison DO Work Phone: [facility] Work Phone: 11-09-2020 COVID-19 vaccine, ag e 12+ yr (PFIZER-BIONTECH - PURPLE TOP) Atul Harvey DO Work Phone: [facility] Work Phone: 12-12-2019 zoster vaccine recombinant Atul Kaplanrison DO Work Phone: [facility] 07-04-2019 influenza, high dose seasonal, preservative-free Atul Kaplanrison DO Work Phone: [facility] Work Phone: 05-13-2019 zoster vaccine recombinant Atul Harvey DO Work Phone: [facility] Work Phone: 07-28-2018 influenza, high dose seasonal, preservative-free Atul Harvey DO Work Phone: [facility] Work Phone: 07-28-2017 influenza, high dose seasonal, preservative-free Atul Harvey DO Work Phone: [facility] Work Phone: 07-31-2016 influenza, high dose seasonal, preservative-free Atul Harvey DO Work Phone: [facility] 07-12-2015 Influenza virus vaccine [facility] 11-15-2014 pneumococcal conjuga te vaccine, 13 valent Atul Harvey DO Work Phone: [facility] 07-14-2014 influenza, high dose seasonal, preservative-free Atul Harvey DO Work Phone: [facility] 07-15-2013 influenza virus vacc ine, unspecified formulation Atul Harvey DO Work Phone: [facility] 06-26-2012 influenza virus vacc ine, unspecified formulation Atul Harvey DO Work Phone: [facility] 02-25-2012 tetanus toxoid, redu peter diphtheria toxoid, and acellular pertussis vaccine, adsorbed Atul Harvey DO Work Phone: [facility] 10-31-2009 novel influenza-H1N1 -09, all formulations Atul Harvey DO Work Phone: [facility] Work Phone: 07-19-2008 influenza virus vacc ine, unspecified formulation Atul Harvye DO Work Phone: [facility] Work Phone: 09-10-2005 pneumococcal polysaccharide vaccine, 23 valent Atul Harvey DO Work Phone: [facility] 05-26-2000 diphtheria and tetan us toxoids, adsorbed for pediatric use Atul Harvey DO Work Phone: [facility] Work Phone: Payers Date Payer Category Payer Self-pay [id number] 2017 Medicare AETNA MEDICARE A ETNA MEDICARE PPO [id number] 2017-Present [phone] [address] [place] [address] PPO [id number] 2017 Medicare AETNA MEDICARE A ETNA MEDICARE PPO [id number] 2017-Present [phone] [address] [place] [address] PPO [id number] 2017 Medicare (Managed Care) [employer] [facility] [id number] 2017 Private Health Insurance [id number] 2004 Medicare [id number] Unknown [id number] Unknown [id number] 2.16.840.1.540688.3.579.2. 462 Unknown [id number] 2.16.840.1.493692.3.579.2. 462 Unknown [id number] 2.16.840.1.131577.3.579.2. 462 Unknown [id number] 2.16.840.1.387766.3.579.2. 462 Unknown [id number] 2.16840.1.989288.3.579.2. 462 Unknown [id number] 2.16840.1.557717.3.579.2. 462 Unknown [id number] 2.840.1.375382.3.579.2. 462 Unknown [id number] 2.840.1.366901.3.579.2. 462 Unknown [id number] 2.840.1.655908.3.579.2. 462 Unknown [id number] 2.840.1.615598.3.579.2. 462 Unknown [id number] 2.840.1.018820.3.579.2. 462 Unknown [id number] 2.840.1.825439.3.579.2. 462 Unknown [id number] 2.840.1.321358.3.579.2. 462 Unknown [id number] 2.840.1.881671.3.579.2. 462 Unknown [id number] 2.840.1.944947.3.579.2. 462 Unknown [id number] 2.840.1.613169.3.579.2. 462 Unknown [id number] 2.840.1.064597.3.579.2. 462 Unknown [id number] 2.16840.1.895905.3.579.2. 462 Unknown [id number] 2.16840.1.697380.3.579.2. 462 Unknown [id number] 2.840.1.037167.3.579.2. 462 Unknown [id number] 2.16.840.1.775430.3.579.2. 462 Unknown [id number] 2.16.840.1.111988.3.579.2. 462 Unknown [id number] 2.16.840.1.832074.3.579.2. 462 Unknown [id number] 2.16.840.1.890808.3.579.2. 462 Unknown [id number] 2.16.840.1.708990.3.579.2. 462 Social History Date Type Detail Facility Start: 08-19-2011 End: 01-06-2025 Tobacco smoking status NHIS Never smoked tobacco [facility] Work Phone: Start: 12-03-2021 End: 05-22-2025 Alcohol intake Current non-drinker of alcohol (finding) [facility] Start: 1940 Sex Assigned At Not on file [facility] Start: 07-08-2017 End: 07-08-2017 Tobacco smoking status ORIS Unknown if ever smoked [facility] Start: 08-02-2016 None [facility] Start: 08-02-2016 Non-smoker [facility] Start: 1940 Sex Assigned At Female W [facility] Start: 12-30-2020 End: 08-06-2022 Exposure to SARS-CoV-2 (event) Not sure [facility] Start: 08-19-2011 Tobacco use and exposure Smoke less tobacco non-user [facility] Start: 02-26-2023 History SDOH Food Worry 1 [facility] Start: 02-26-2023 History SDOH Transport Med 2 [facility] Start: 04-13-2023 End: 08-01-2024 History of Social function [facility] Work Phone: Start: 04-13-2023 End: 08-01-2024 Tobacco use panel [facility] Work Phone: Start: 09-12-2012 Adult Depression Scr eening Assessment 0 [facility] Work Phone: (I/We) worried minor er (my/our) food would run out before (I/we) got money to buy more. Never true [facility] Work Phone: Do you belong to any clubs or organizations such as gnosticist groups, unions, fraternal or athletic groups, or school groups? No [facility] Are you now , , , , never or living with a partner? [facility] How often to you hav e a drink containing alcohol? Never [facility] Do you feel stress - tense, restless, nervous, or anxious, or unable to sleep at night because your mind is troubled all the time - these days [OSQ] Not at all [facility] Start: 01-06-2025 Sex Female (finding) [place] [facility] Goals Date Patient Goal Desired Activity /State [...] difficulty hearing No 01/17/2025 1:15 PM Roxy Kc RN No [facility] 01-17-2025 Are you blind, or do you have serious difficulty seeing, even when wearing glasses No 01/17/2025 1:15 PM Roxy Kc, JOSE No [facility] 01-17-2025 Do you have serious difficulty walking or climbing stairs No 01/17/2025 1:15 PM Roxy Kc, JOSE No [facility] 01-17-2025 Do you have difficul ty dressing or bathing No 01/17/2025 1:15 PM Roxy Kc RN No [facility] 01-17-2025 Because of a physica l, mental, or emotional condition, do you have difficulty doing errands alone such as visiting a physician's office or shopping No 01/17/2025 1:15 PM Roxy Kc RN No [facility] 10-18-2024 Functional status Ambulates;Mohan r;Bathroom Privilege [facility] Work Phone: 05-18-2015 Are you deaf, or do you have serious difficulty hearing No 05/18/2015 9:06 AM Rush Maldonado [facility] 05-18-2015 Are you blind, or do you have serious difficulty seeing, even when wearing glasses No 05/18/2015 9:06 AM Rush Maldonado No [facility] 05-18-2015 Do you have serious difficulty walking or climbing stairs No 05/18/2015 9:06 AM Rush Maldonado [facility] 05-18-2015 Do you have difficul ty dressing or bathing No 05/18/2015 9:06 AM Rush Maldonado [facility] 05-18-2015 Because of a physica l, mental, or emotional condition, do you have difficulty doing errands alone such as visiting a physician's office or shopping No 05/18/2015 9:06 AM Rush Maldonado [facility] Mental Status Date Assessment Result Facility 01-17-2025 Because of a physica l, mental, or emotional condition, do you have serious difficulty concentrating, remembering, or making decisions No 01/17/2025 1:15 PM Roxy Kc RN No [facility] 01-06-2025 Cognitive function Voice/Name [facility] Work Phone: 10-18-2024 Cognitive function Voice/Name [facility] Work Phone: 05-18-2015 Because of a physica l, mental, or emotional condition, do you have serious difficulty concentrating, remembering, or making decisions No 05/18/2015 9:06 AM EDT Rush Yates [facility] Clinical Notes 12-28-2018 to 05-31-2025 Areli Macedo CPhT - 05/31/2025 10:36 AM Atul Anderson DO - 05/23/2025 7:38 AM EDTPatient InstructionsVirginia Spencer - 05/09/2025 7:52 AM EDTPatient InstructionsPatient Instructions Note Date & Type Note Facility 05-31-2025 Note HNO ID: [id number] Author: ARELI MACEDO CPhT Service: ? Author Type: Assistant To The Vice President Type: Progress Notes Filed: 05/31/2025 10:38 Note Text: Patient is identified through a medication adherence outreach initiative based on pharmacy claims data from: [facility] Medication Adherence Category: Hypertension First Review Attribution [...] Macedo CPhT Value Based Care Pharmacy Team [facility] 05-31-2025 History of Presen t [...] Care Pharmacy Team documented in this encounter [facility] 05-31-2025 Note Patient Outreach ( POHE) MARY CRANE ([id number]) 1940 F TXT Date Time Provider Department 05/31/25 [facility] your visit today, we recorded the following information about you: Areli Macedo CPhT 05/31/2025 10:38 AM Signed Patient is identified through a medication adherence outreach initiative based on pharmacy claims data from: [facility] Medication Adherence Category: Hypertension First Review Attribution [...] at 8 pm - Vit A,C and K-Phvabn-Rxxtfxvs (OCUVITE WITH LUTEIN) 300 mcg-200 mg-27 mg-2 [...] OSTEOARTH-HAND [M19.049] 10/17/2005 (more content not included)... [facility] 05-23-2025 Note HNO ID: [id number] Author: ATUL HARVEY, DO Service: ? Author [...] on anticoagulant Eliquis with referral to the Welding Operator. Then later fell against her left side and then 2-3 weeks after this fell when she tripped over her cat- falling against her left side. She was assessed by [facility] and had xrays to make [...] to another hospital for potential surgery at [facility]. 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 Last saw Welding Operator in Oct at [facility]- he is managing the blood thinners. Bowel health is back to normal- denies constipation Mood, stable, has a lot of support from her family She transported to [facility] for 11 days after discharge from the [...] Still with fatigue symptoms Recently saw her Cone Tender for her inflammatory arthritis, was found to [...] In the mo (more content not included)... [facility] 05-23-2025 History of Presen t [...] on anticoagulant Eliquis with referral to the Welding Operator. Then later fell against her left side and then 2-3 weeks after this fell when she tripped over her cat- falling against her left side. She was assessed by [facility] and had xrays to make [...] to another hospital for potential surgery at [facility]. 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 Last saw Welding Operator in Oct at [facility]- he is managing the blood thinners. Bowel health is back to normal- denies constipation Mood, stable, has a lot of support from her family She transported to [facility] for 11 days after discharge from the [...] Still with fatigue symptoms Recently saw her Cone Tender for her inflammatory arthritis, was found to [...] and at 8 pm Vit A,C and V-Csaoqy-Tcvpifmb (OCUVITE WITH LUTEIN) 300 mcg-200 mg-27 mg-2 [...] plan. See patient instructions. Atul Harvey DO [address] [place] [address] [1] Social History Tobacco Use Smoking status: Never Smokeless tobacco: Never Vaping Use Vaping status: Never Used Substance Use Topics Alcohol use: No Drug use: No documented in this encounter [facility] 05-22-2025 Instructions Atul Harvey DO - 05/22/2025 2:45 PM EDT Slo fe or ferrous sulfate iron tablet or chewable/gummy with 45-67 mg of iron 1-2 times a day with a meal. Recheck labs in 4-6 weeks documented in this encounter [facility] 05-09-2025 Note HNO ID: [id number] Author: ?, ?, ? Service: ? Author [...] was told to hold dose Virginia Spencer [facility] Care Pharmacy Team [facility] 05-09-2025 History of Presen t [...] patient was told to hold dose Virginia Tj [facility] Pharmacy Team documented in this encounter [facility] 05-09-2025 Note [facility] ([id number]) 1940 F TXT Date Time Provider Department 05/09/25 ATUL HARVEY During your visit today, we recorded the following information about you: Virginia Spencer 05/09/2025 7:54 AM Signed Patient is identified through a medication adherence outreach initiative based on pharmacy claims data from: [facility] Medication Adherence Category: Hypertension First Review Attribution Status: Correct attribution Medication(s) Losartan 50 mg Medication Status per portal/Epic Reconcile Dispense: Not filled Medication Status per Profile Review: Provider discontinued Is medication on Epic med list? No, Call pharmacy to discontinue prescription. Patient/provider appropriate for outreach? No Reason patient/provider not appropriate for outreach:Per encounter on 01/17/2025, patient was told to hold dose Virginia Spencer [facility] Pharmacy Team Allergies As of Date: 05/09/2025 [...] at 8 pm - Vit A,C and U-Encopz-Gyhcdwnj (OCUVITE WITH LUTEIN) 300 mcg-200 mg-27 mg-2 [...] and wrist [M65.849,*01/ (more content not included)... [facility] 04-24-2025 Telephone encounter Note Patient was notified prior to leaving that viral testing and xray negative. Likely viral etiology. [facility] Work Phone: 04-24-2025 Miscellaneous Notes Patient was notified prior to leaving that viral testing and xray negative. Likely viral etiology. documented in this encounter [facility] 04-24-2025 Note SARS-COV-2 (AGENT OF COVID-19) RNA: Not detected INFLUENZA A RNA: Not detected INFLUENZA B RNA: Not detected RESPIRATORY SYNCYTIAL VIRUS (RSV) RNA: Not detected [facility] Comment on above: Performed By: #### 9 [id number] ####[facility]CLIA [id number] [address] OF [facility] 04-24-2025 History of Presen t illness Narrative [...] PATIENT PRESENTS WITH AN IMPLANTABLE OR ATTACHED ARCHITECTURAL WOOD MODEL MAKER: No RADIOLOGY DEPARTMENT: General X-ray: Exam(s) Completed: Chest X-Ray PERIPHERAL IV DATA: Not applicable SIGNED BY: ERIC Watson) April 24, 2025 1:12 PM documented in this encounter [facility] 04-24-2025 Note HNO ID: [id number] Author: NED MULLEN RT(Kenneth) Service: ? Author Type: Technologist Type: Progress [...] PATIENT PRESENTS WITH AN IMPLANTABLE OR ATTACHED ARCHITECTURAL WOOD MODEL MAKER: No RADIOLOGY DEPARTMENT: General X-ray: Exam(s) Completed: Chest X-Ray PERIPHERAL IV DATA: Not applicable SIGNED BY: Ned Mullen, RT(R) April 24, 2025 1:12 PM [facility] 04-24-2025 Note HNO ID: [id number] Author: MAY LINARES MA Service: ? Author Type: Horticultural Specialty Grower Type: Progress Notes Filed: 04/24/2025 13:04 Note Text: Patient presents from PCP office to have ordered URI testing completed. Rapid Covid/Flu testing and PCR Covid/Flu/RSV testing done per provider's orders and provider notified of rapid results. May Linares MA [facility] 04-24-2025 History of Presen t illness Narrative Patient presents from PCP office to have ordered URI testing completed. Rapid Covid/Flu testing and PCR Covid/Flu/RSV testing done per provider's orders and provider notified of rapid results. May Linares MA documented in this encounter [facility] 04-24-2025 Note Addended by: JOSEF MARTINEZ on: 04/24/2025 12:29 PM Modules accepted: Orders [facility] 04-24-2025 Miscellaneous Notes Addended by: JOSEF MARTINEZ on: 04/24/2025 12:29 PM Modules accepted: Orders documented in this encounter [facility] 04-24-2025 Note HNO ID: [id number] Author: JOSEF MARTINEZ APRN.CNP Service: ? Author [...] and at 8 pm Vit A,C and L-Gcgfuu-Owunfnzn (OCUVITE WITH LUTEIN) 300 mcg-200 mg-27 mg-2 [...] Apply 1 rolando (more content not included)... [facility] 04-24-2025 History of Presen t [...] and at 8 pm Vit A,C and M-Lriefh-Kzhsqaom (OCUVITE WITH LUTEIN) 300 mcg-200 mg-27 mg-2 [...] - XR CHEST 2V FRONTAL/LAT Josef Martinez APRN.EPOXY SPECIALIST documented in this encounter [facility] 04-24-2025 Telephone encounter Note Pt's daughter [...] pain. Pt scheduled today with Josef Martinez GENERAL OPHTHALMOLOGIST. Christel Wagner, JOSE [facility] 04-24-2025 Miscellaneous Notes Pt's daughter called [...] pain. Pt scheduled today with Josef Martinez GENERAL OPHTHALMOLOGIST. Christel Wagner RN documented in this encounter [facility] 03-27-2025 History of Presen t illness Narrative Images from the original note were not included. [facility] SECTION OF REGIONAL CARDIOLOGY Cardiology ([facility]) [address] [id number] OUTPATIENT VISIT DATE 03/27/2025 PRIMARY CARE PHYSICIAN: Atul Harvey [address] [place] [address] HISTORY OF PRESENT ILLNESS: Ms. Crane is a 84 year old woman with history of paroxysmal atrial fibrillation, mild pulmonary hypertension, essential hypertension, and rheumatoid arthritis who presents to the office for follow-up after hospital admission. She was admitted to [facility] transfer from [facility] after a fall resulting in splenic rupture. [...] and at 8 pm Vit A,C and F-Xzcbpv-Pvhntqaz (OCUVITE WITH LUTEIN) 300 mcg-200 mg-27 mg-2 [...] the prior CC echocardiographic exam performed on 05/03/2024. No mitral [...] patient event(s). Isolated SVEs were frequent (5.9%, 41838), SVE Couplets were rare (<1.0%, 4227), and SVE Triplets were frequent (7.6%, 11668). Isolated VEs were occasional (3.5%, 56930), and no VE Couplets or VE Triplets [...] Rasheed Barrios MD documented in this encounter [facility] 03-27-2025 Note HNO ID: [id number] Author: RASHEED BARRIOS MD Service: ? Author Type: Physician Type: Progress Notes Filed: 03/27/2025 11:26 Note Text: [facility]IONAL CARDIOLOGY Cardiology ([facility]) [address] [id number] OUTPATIENT VISIT DATE 03/27/2025 PRIMARY CARE PHYSICIAN: Atul Harvey [address] [place] [address] HISTORY OF PRESENT ILLNESS: Ms. Crane is a 84 year old woman with history of paroxysmal atrial fibrillation, mild pulmonary hypertension, essential hypertension, and rheumatoid arthritis who presents to the office for follow-up after hospital admission. She was admitted to [facility] transfer from [facility] after a fall resulting in splenic rupture. [...] and at 8 pm Vit A,C and T-Sgpbli-Ecmhkcos (OCUVITE WITH LUTEIN) 300 mcg-200 mg-27 mg-2 mg tab Take 1 tablet by mouth once daily. Take at 8 am potassium chloride ER (KLOR-CON M10) 10 mEq tablet Take 1 tablet by (more content not included)... [facility] 02-17-2025 Telephone encounter Note Felicitas informed. [facility] 02-17-2025 Miscellaneous Notes Felicitas informed. Okay [...] morning. Authorizing Provider: ATUL HARVEY DO Felicitas RN CM [facility] called in and reports she is hoping to discharge Pt next week. She is asking if provider would be comfortable discontinuing the O2 order for the Pt at [facility]. She states the last 2 weeks she has been seeing the Pt she has not been using the O2. She said she walked the Pt around her house for 5 min and she stayed at 92% the whole time and moves really well and doesn't get SOB. She also reports they are working on getting the Pts medication pre-packaged through [facility]. She said the Allopurinol had not been [...] 2025 11:44 AM documented in this encounter [facility] 02-17-2025 Telephone encounter Note Okay to [...] the morning. Authorizing Provider: ATUL HARVEY DO [facility] 02-15-2025 Telephone encounter Note Felicitas [facility] called in and reports she is hoping to discharge Pt next week. She is asking if provider would be comfortable discontinuing the O2 order for the Pt at [facility]. She states the last 2 weeks she has been seeing the Pt she has not been using the O2. She said she walked the Pt around her house for 5 min and she stayed at 92% the whole time and moves really well and doesn't get SOB. She also reports they are working on getting the Pts medication pre-packaged through [facility]. She said the Allopurinol had not been [...] Wagner RN February 15, 2025 11:44 AM T [facility] 02-13-2025 Telephone encounter Note Prescription Refill [...] Garcia LPN February 13, 2025 1:43 PM [facility] 02-13-2025 Miscellaneous Notes Prescription Refill Information [...] 2025 1:43 PM documented in this encounter [facility] 02-09-2025 Telephone encounter Note Phoned Felicitas and went over notes from A Aleksander GENERAL OPHTHALMOLOGIST with understanding. [facility] 02-09-2025 Miscellaneous Notes Phoned Felicitas and went over notes from A Aleksander GENERAL OPHTHALMOLOGIST with understanding. Yes, she should be taking allopurinol. This is on medication list and recently refilled. OK with crestor until [facility] sets up daily packages. Thank you, Milana Armijo APRN.EPOXY SPECIALIST Felicitas from [facility] calling to check if patient should be taking her Allopurinol 100 mg one tablet daily? She did a medication organizer for a week and patient had generic Crestor 10 mg in home, using it instead of the Atorvastatin 20 mg since [facility] not setting up bubble packs for about 7 to 10 days. Please advise documented in this encounter [facility] 02-09-2025 Telephone encounter Note Yes, she should be taking allopurinol. This is on medication list and recently refilled. OK with crestor until [facility] sets up daily packages. Thank you, Milana Armijo APRN.FELICIA [facility] 02-08-2025 Telephone encounter Note Felicitas from [facility] calling to check if patient should be taking her Allopurinol 100 mg one tablet daily? She did a medication organizer for a week and patient had generic Crestor 10 mg in home, using it instead of the Atorvastatin 20 mg since [facility] not setting up bubble packs for about 7 to 10 days. Please advise [facility] 02-08-2025 Telephone encounter Note Daughter, Noemy, and below message given. Patient has an appointment on Thursday and will discuss with MD at that time. Tracy Rawls RN [facility] 02-08-2025 Miscellaneous Notes Daughter, Noemy, and [...] substitute for eliquis. Thank you, Velma Montes APRN.EPOXY SPECIALIST Pt's daughter and POA calling to see [...] likely need to be assesed by the Welding Operator prior to making any changes. 01/10/25 EKG still showing A fib. Daughter would like to ask Welding Operator if it is an option to switch from Eliquis to Aspirin prior to the appt on Thursday. If so, they will have us fax the order to [facility] in [place]. Please review and advise. Elizabeth Yeh MA documented in this encounter [facility] 02-08-2025 Telephone encounter Note Images from the original note were not included. Velma Montes APRN.CNP Hiles, Laurie, MA2 hours ago (11:54 AM) ASA does not offer for stroke risk reduction in the setting of a-fib and is not an appropriate substitute for eliquis. Thank you, Velma Montes APRN.EPOXY SPECIALIST [facility] 02-07-2025 Telephone encounter Note Pt's daughter [...] likely need to be assesed by the Welding Operator prior to making any changes. 01/10/25 EKG still showing A fib. Daughter would like to ask Welding Operator if it is an option to switch from Eliquis to Aspirin prior to the appt on Thursday. If so, they will have us fax the order to [facility] in [place]. Please review and advise. Elizabeth Yeh MA [facility] 02-07-2025 Instructions Atul Harvey DO - 02/07/2025 10:46 AM EDT Ask the Welding Operator about do we need to stop the Eliquis medication and start on Aspirin instead? Is she a candidate for ablation instead of being on a blood thinner? documented in this encounter [facility] 02-07-2025 Note HNO ID: [id number] Author: ATUL HARVEY DO Service: ? Author [...] her left side. She was assessed by [facility] and had xrays to make [...] to another hospital for potential surgery at [facility]. Had surgery by Dr. Acevedo and Dr. 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 Last saw Welding Operator in Oct at [facility]- he is managing the blood thinners. Was transported to [facility] for 11 days after discharge home Was [...] on anticoagulant Eliquis with referral to the Welding Operator. Then later fell against her left side and then 2-3 weeks after this fell when she tripped over her cat- falling against her left side. She was assessed by [facility] and had xrays to make [...] to another hospital for potential surgery at [facility]. 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 Last saw Welding Operator in Oct at [facility]- he is managing the blood thinners. She has an upcoming appt next week to discuss forward plans with her medication Bowel health is back to normal- denies constipation Mood, stable, has a lot of support from her family She transported to [facility] for 11 days after discharge from the [...] 12/21/2014 EGD L (more content not included)... [facility] 02-07-2025 History of Presen t illness Narrative Had RSV viral infection and was seen in the hospital. She was diagnsoed with atrial fibrillation and started on anticoagulant Then later fell against her left side and then 2-3 weeks after this fell when she tripped over her cat- falling against her left side. She was assessed by [facility] and had xrays to make [...] to another hospital for potential surgery at [facility]. Had surgery by Dr. Acevedo and Dr. 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 Last saw Welding Operator in Oct at [facility]- he is managing the blood thinners. Was transported to [facility] for 11 days after discharge home Was [...] on anticoagulant Eliquis with referral to the Welding Operator. Then later fell against her left side and then 2-3 weeks after this fell when she tripped over her cat- falling against her left side. She was assessed by [facility] and had xrays to make [...] to another hospital for potential surgery at [facility]. 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 Last saw Welding Operator in Oct at [facility]- he is managing the blood thinners. She has an upcoming appt next week to discuss forward plans with her medication Bowel health is back to normal- denies constipation Mood, stable, has a lot of support from her family She transported to [facility] for 11 days after discharge from the [...] and at 8 pm Vit A,C and S-Fyhssa-Zemufdma (OCUVITE WITH LUTEIN) 300 mcg-200 mg-27 mg-2 [...] with surgeon and will follow up with tip banding machine operator for discussion regarding if okay to continue [...] with surgeon and will follow up with tip banding machine operator for discussion regarding if okay to continue [...] with surgeon and will follow up with tip banding machine operator for discussion regarding if okay to continue [...] with surgeon and will follow up with tip banding machine operator for discussion regarding if okay to continue [...] with surgeon and will follow up with tip banding machine operator for discussion regarding if okay to continue [...] plan. See patient instructions. Atul Harvey DO [address] [place] [address] documented in this encounter [facility] 01-30-2025 Telephone encounter Note Areli with [facility] called and is notified of providers message and instructions. She voices understanding. Christel Wagner RN [facility] 01-30-2025 Miscellaneous Notes Areli with [facility] called and is notified of providers message and instructions. She voices understanding. Christel Wagner RN Yes, PCP team willing to follow. Thank you, Milana Armijo APRN.EPOXY SPECIALIST Courtney with [facility] called in and reports Pt is discharging from [facility]. She states they have orders for PT/OT/SN and is asking if the provider will follow. She states they hope to start on Thursday. Please call and advise. documented in this encounter [facility] 01-30-2025 Telephone encounter Note Yes, PCP team willing to follow. Thank you, Milana Armijo APRN.EPOXY SPECIALIST [facility] 01-27-2025 Telephone encounter Note Courtney with [facility] called in and reports Pt is discharging from [facility]. She states they have orders for PT/OT/SN and is asking if the provider will follow. She states they hope to start on Thursday. Please call and advise. [facility] 01-18-2025 Telephone encounter Note Called/left VM offering appointment 02/13/25 at 1pm. If they call back and accept the appointment it is ok to double book the patient in at that time. Tracy Rawls, JOSE [facility] 01-18-2025 Miscellaneous Notes Called/left VM offering appointment 02/13/25 at 1pm. If they call back and accept the appointment it is ok to double book the patient in at that time. Tracy Rawls, JOSE Rao from [facility] called to schedule appointment for patient with Dr. Barrios regarding medications. PSS unable to find sooner availability, unable to reach cardiology nurse. Please contact Rao by call her direct line ph. [phone]. Called FELICIA Lori to relay Dr. Barrios's reply. She verbalized understanding. Ellen Davison RN Images from the original note were [...] done during her hospital course. Nadeem FELICIA Nuñez from [facility] called in to report Mary Crane has HR 135 and BP 100/67. RA pulse oximeter 89-90%, so they place on 2L/NC, and pt short of breath. T 99.3. She questioned med doses, so reviewed her AVS from recent hospital stay. Ellen Davison RN documented in this encounter [facility] 01-18-2025 Telephone encounter Note Rao from [facility] called to schedule appointment for patient with Dr. Barrios regarding medications. PSS unable to find sooner availability, unable to reach cardiology nurse. Please contact Rao by call her direct line ph. [phone]. [facility] 01-18-2025 Telephone encounter Note Called FELICIA Lori to relay Dr. Barrios's reply. She verbalized understanding. Ellen Davison RN [facility] 01-18-2025 Telephone encounter Note Images from [...] was done during her hospital course. Nadeem [facility] 01-17-2025 Telephone encounter Note FELICIA Lori Nuñez from [facility] called in to report Mary Crane has HR 135 and BP 100/67. RA pulse oximeter 89-90%, so they place on 2L/NC, and pt short of breath. T 99.3. She questioned med doses, so reviewed her AVS from recent hospital stay. Ellen Davison RN [facility] 01-16-2025 Note [facility] 01-15-2025 Note [facility] 01-14-2025 Note [facility] 01-13-2025 Note [facility] 01-12-2025 Note [facility] 01-12-2025 Telephone encounter Note Noted, thank you. Catalina Jauregui APRN.EPOXY SPECIALIST [facility] Work Phone: 01-12-2025 Miscellaneous Notes Noted, thank you. Catalina Jauregui APRN.EPOXY SPECIALIST It appears no return call and currently looks like pt is an inpatient at [facility] with recent surgery. Called and spoke with [facility] yamileth she will call pt and let us know. Has she been on the Lasix and tolerated it in the past? 2. Noted. Catalina Jauregui APRN.EPOXY SPECIALIST Nathaly with [facility] calling with 2 items regarding patient. Patient has been ordered furosemide but has a listed allergy to Bumex. Asking if pt may take the furosemide. Patient is taking OTC Mucinex and this is not on their medication list. Wanted provider to know this. Please call Nathaly back with provider's response, Nancy Mccann RN documented in this encounter [facility] 01-12-2025 Note [facility] 01-12-2025 Telephone encounter Note It appears no return call and currently looks like pt is an inpatient at [facility] with recent surgery. [facility] 01-11-2025 Note [facility] 01-10-2025 Telephone encounter Note Home Health Certification and Plan of Care scanned to chart. FYI only - no need to sign and return. Ellen Davison, RN [facility] 01-10-2025 Miscellaneous Notes Home Health Certification and Plan of Care scanned to chart. FYI only - no need to sign and return. Ellen Davison, JOSE documented in this encounter [facility] 01-10-2025 Note [facility] 01-09-2025 Note [facility] 01-09-2025 Note HNO ID: [id number] Author: RUSH STEPHENS MD Service: ? Author Type: Physician Type: Progress Notes Filed: 01/09/2025 09:25 Note Text: Rush Vail MD, was notified of and approve the order for transfusion of blood products for Mary Crane. Rush Stephens MD [employer]umber Chain Offbearer, Critical Care Transport [facility] 01-08-2025 Note [facility] 01-08-2025 Note [facility] 01-07-2025 Note [facility] 01-07-2025 Note [facility] 01-06-2025 Note HNO ID: [id number] Author: ESVIN RON APRN.FELICIA Service: ? Author Type: Nurse Practitioner Type: Progress Notes Filed: 01/10/2025 20:46 Note Text: [facility] CRITICAL CARE TRANSPORT NOTE Patient Name: Mary Crane : 1940 Service Date: January 06, 2025 Referring Facility: [facility] Accepting Facility: [facility] Referring Physician: Lydia Accepting Physician: Lizabeth SUBJECTIVE/CHIEF [...] HTN, RA, and CKD who presented to [facility] ED s/p pre-hospital stroke alert. Per report, [...] splenic laceration. Patients last dose of eliquis [id number] on 01/05. Patient given [place] (PCC) for [...] managing the patient requested transfer to the [facility] for tertiary and/or quaternary trauma services unavailable at the referring facility. The physician managing the patient requested the [facility] Critical Care Transport Team transport and [...] The physician managing the patient requested the [facility] Critical Care Transport Team transport and treat the patient for the purpose of tertiary care, evaluation, and management of her traumatic condition(s). Air medical transport was requested to reduce the yky-jo-crkpdbkk time, 15 minutes by air vs. approximately 41 minutes by ground, with the potential for increased ground transport time secondary to: distance between facilities and the patient's condition requiring an emergent procedure or evaluation not available at the referring facility ROS: A complete review of systems was performed and is negative except as noted in DIOMEDE PAST MEDICAL HISTORY: PAST MEDICAL HISTORY Diagnosis [...] team HOME MED (more content not included)... [facility] 01-06-2025 History of Presen t illness Narrative Images from the original note were not included. [facility] CRITICAL CARE TRANSPORT NOTE Patient Name: Mary Crane : 1940 Service Date: January 06, 2025 Referring Facility: [facility] Accepting Facility: [facility] Referring Physician: Lydia Accepting Physician: Lizabeth SUBJECTIVE/CHIEF [...] HTN, RA, and CKD who presented to [facility] ED s/p pre-hospital stroke alert. Per report, [...] managing the patient requested transfer to the [facility] for tertiary and/or quaternary trauma services unavailable at the referring facility. The physician managing the patient requested the [facility] Critical Care Transport Team transport and [...] The physician managing the patient requested the [facility] Critical Care Transport Team transport and treat the patient for the purpose of tertiary care, evaluation, and management of her traumatic condition(s). Air medical transport was requested to reduce the yxq-bp-httioftp time, 15 minutes by air vs. approximately 41 minutes by ground, with the potential for increased ground transport time secondary to: distance between facilities and the patient's condition requiring an emergent procedure or evaluation not available at the referring facility ROS: A complete review of systems was performed and is negative except as noted in DIOMEDE PAST MEDICAL HISTORY: PAST MEDICAL HISTORY Diagnosis [...] Critical Care Transport Blood Product Administration Mary Crnae requires emergent blood transfusion as indicated by one of the following: Acute traumatic injury (known or suspected) resulting in life threatening hemorrhage (known or suspected) where optimum treatment involves transfusion of Blood Products before or in concert with isotonic crystalloid infusion. The risks, benefits, and alternatives to blood transfusion have been discussed with the patient or client representative who cannot consent due to clinical urgency. Mary Crane requires O+ WHOLE BLOOD. The indication being treatment of anemia . The provider, Dr. Barone, at the receiving facility was notified that the patient received O+ whole blood. Patient verified: yes Procedure/Site verified: Yes Physician Notified: Dr. Claire Ron, CENTRAL LAB TECHNICIAN.EPOXY SPECIALIST Procedures Performed by CCT: Blood and Blood [...] trauma or bleeding. - Expedited transport to [facility] for further trauma care The transport was completed without significant incident or change in the patient's status. The patient was transported to [facility] by [facility] (Helicopter) for tertiary and/or quaternary evaluation and management of her Emergent and Critical Medical condition. Upon arrival to the receiving facility, a pxrq-lu-zfst report was given to bedside nursing staff [...] blood loss anemia Cardiovascular impairment, Respiratory impairment, MEDICAID COLLECTION SPECIALIST impairment, Shock, and Cardiac Arrest which the patient had and/or had a high probability of suddenly developing. SIGNATURE: Esvin Ron APRN.CNP Acute Care Nurse Practitioner [facility] Critical Care Transport Team documented in this encounter [facility] 01-06-2025 Note HNO ID: [id number] Author: ?, ?, ? Service: ? Author Type: ? Type: Procedures Filed: 01/06/2025 15:16 Note Text: Attempted to start stat BEM, care team ordering a stat MRI. RN to page EEG pager when patient returns to MRI for BEM hookup. [facility] 01-06-2025 Note [facility] 01-06-2025 Note [facility] 01-06-2025 Note [facility] 01-06-2025 Radiology Diagnostic study note [facility] Imaging Services [address] [place], [place] [address] Abdomen/Pelvis W IV Cont ONLY MR#: [id number] Acct: [id number] Name: MARY CRANE Rep #: [id number] : 1940 F 84 From: Thomas Sherwood MD PCP: Dr. Atul Harvey, DO Status: RE G ER Study:Abdomen/Pelvis W IV Cont ONLY Date of E xam: 01/06/25 Exam# [id number] Ordering Dr: Sudheer Freeman DO EXAM: ABDOMEN/PELVIS [...] of high-density fluid within the upper abdomen lhmj-rrflekd-wvff-right about the spleen and within the pelvis [...] of high-density fluid within the upper abdomen ykuc-gektjmx-rssd-right about the spleen and within the pelvis consistent with hemoperitoneum. Small bilateral kidneys with dense appearing nephrograms can be seen with renal disease or ATN. No hydronephrosis. Possible subtle nondisplaced fracture of the posterior left 10th rib axial 20. Study discussed over the phone verbally by myself with Dr. Freeman at 04:10 a.m. 01/06/2025 Reading Location: [facility] CC: Dr. Atul Harvey DO; Dr. Fredy Freeman DO ~ Medical Receptionist Biller: Signed [facility] 01-06-2025 Discharge summary [facility] 01-06-2025 Radiology Diagnostic study note [facility] Imaging Services [address] [place], [place] [id number] CTA Chest W/WO Contrast MR#: [id number] Acct: [id number] Name: MARY CRANE Rep #: [id number] : 1940 F 84 From: Thomas Sherwood MD PCP: Dr. Atul Harvey DO Status: RE G ER Study:CTA Chest W/WO Contrast Date of Exam: 01/06/25 Exam# [id number] Ordering Dr: Sudheer Freeman DO PROCEDURE: CTA [...] 58 concerning for active bleeding. Reading Location: [facility] CC: Dr. Atul Harvey DO; Dr. Fredy Freeman DO ~ Medical Receptionist Biller: Signed [facility] 01-06-2025 Radiology Diagnostic study note [facility] Imaging Services [address] [place], [place] [id number] STROKE CTA Head AND Neck W/Con MR#: [id number] Acct: [id number] Name: MARY CRANE Rep #: [id number] : 1940 F 84 From: Thomas Sherwood MD PCP: Dr. Atul Harvey DO Status: RE G ER Study:STROKE CTA Head AND Neck W/Con Date of Exam: 01/06/25 Exam# [id number] Ordering Dr: Sudheer Freeman DO PROCEDURE: STROKE [...] filling aneurysm identified as above. Reading Location: [id number] CC: Dr. Atul Harvey DO; Dr. Fredy Freeman DO ~ Medical Receptionist Biller: Signed [facility] 01-06-2025 Radiology Diagnostic study note [facility] Imaging Services [address] [place] [address] STROKE Brain/Head without Cont MR#: [id number] Acct: [id number] Name: JAMELYVETTEMARY R Rep #: [id number] : 1940 F 84 From: Thomas Sherwood MD PCP: Dr. Atul Harvey, DO Status: RE G ER Study:STROKE Brain/Head without Cont Date of Exam: 01/06/25 Exam# [id number] Ordering Dr: Sudheer Freeman DO PROCEDURE: STROKE [...] Freeman at 4 a.m. 01/06/2025 Reading Location: [id number] CC: Dr. Atul Harvey, DO; Dr. Fredy Freeman, DO ~ Medical Receptionist Biller: Signed [facility] 12-28-2024 Telephone encounter Note Called and spoke with Debora carson she will call pt and let us know. [facility] 12-28-2024 Telephone encounter Note Has she been on the Lasix and tolerated it in the past? 2. Noted. Catalina Jauregui APRN.EPOXY SPECIALIST [facility] 12-27-2024 Telephone encounter Note Nathaly with [facility] calling with 2 items regarding patient. Patient has been ordered furosemide but has a listed allergy to Bumex. Asking if pt may take the furosemide. Patient is taking OTC Mucinex and this is not on their medication list. Wanted provider to know this. Please call Nathaly back with provider's response, Nancy Mccann RN T [facility] 12-12-2024 Telephone encounter Note The patient [...] Wyatt RN December 12, 2024 8:36 AM [facility] 12-12-2024 Miscellaneous Notes The patient has been [...] 2024 8:36 AM documented in this encounter [facility] 12-07-2024 Telephone encounter Note Spoke with pt and information listed below given. Pt verbalizes understanding. Elizabeth Goldberg LPN [facility] 12-07-2024 Miscellaneous Notes Spoke with pt and information listed below given. Pt verbalizes understanding. Elizabeth Goldberg LPN TC patient, left message for patient to call back and speak with a triage nurse regarding provider instructions. Camila Finley RN Noted, please let patient know that I saw her labs and decreased lasix to 20 mg a day as below Atul L Harvey, DO The following approved medication requests have [...] Camila Finley RN documented in this encounter [facility] 12-07-2024 Telephone encounter Note TC patient, left message for patient to call back and speak with a triage nurse regarding provider instructions. Camila Finley RN [facility] 12-07-2024 Telephone encounter Note Noted, please [...] once daily. Authorizing Provider: ATUL HARVEY DO [facility] 12-02-2024 Telephone encounter Note Patient calls [...] Please review and advise, Camila Finley RN [facility] 11-30-2024 History of Present illness Narrative [...] 2024 2:00 PM documented in this encounter [facility] 11-30-2024 Note HNO ID: [id number] Author: YECENIA BRADFORD RN Service: ? Author [...] Bradford RN November 30, 2024 2:00 PM [facility] 11-30-2024 Note Patient Outreach ([facility] MARY CRANE ([id number]) 1940 F TXT Date Time Provider Department 11/30/24 YECENIA BRADFORD During your visit today, we recorded the [...] documentation this encounter Interventions No episode Yecenia rBadford RN November 30, 2024 2:00 PM Allergies [...] (HCC) [J98.4] 03/07/2015 (more content not included)... [facility] 11-18-2024 Telephone encounter Note Daughter reports patient fell 2 days ago in the [facility] restroom. Daughter was waiting in her car. [...] broken bones or internal bleed. Daughter agreeable. [facility] 11-18-2024 Miscellaneous Notes Daughter reports patient fell 2 days ago in the [facility] restroom. Daughter was waiting in her car. [...] bleed. Daughter agreeable. documented in this encounter [facility] 11-17-2024 Telephone encounter Note Spoke rafi pt gave information provided. Pt voices understanding. [facility] 11-17-2024 Miscellaneous Notes Spoke rafi pt gave information provided. Pt voices understanding. Yes, ok to try this. Milana Armijo APRN.EPOXY SPECIALIST Pt calling to see if she can take her Lasix 40 mg at 5 pm instead of in the am. Pt reports she has to run to the bathroom all day. Pt also takes her Potassium at 5 pm. Please advise pt. Elizabeth Goldberg LPN documented in this encounter [facility] 11-17-2024 Telephone encounter Note Yes, ok to try this. Milana Armijo APRN.FELICIA [facility] 11-16-2024 Telephone encounter Note Pt calling to see if she can take her Lasix 40 mg at 5 pm instead of in the am. Pt reports she has to run to the bathroom all day. Pt also takes her Potassium at 5 pm. Please advise pt. Elizabeth Goldberg LPN [facility] 11-11-2024 Note HNO ID: [id number] Author: MARIA E BREWSTER APRN.FELICIA Service: ? Author Type: Nurse Practitioner [...] by mouth onc (more content not included)... [facility] 11-11-2024 History of Present illness [...] agreeable to treatment plan. Maria E Brewster APRN.CNP documented in this encounter [facility] 11-07-2024 Note HNO ID: [id number] Author: KIRSTIN REYES RN Service: ? Author Type: Registered Nurse Type: Progress Notes Filed: 11/07/2024 15:25 Note Text: Transitional Care Management (TCM) Follow-Up Note PCP Update / Actionable Items N/A - No specialty updates needed Patient Source: Rid-gy-Gcdqrdo (OON) Discharge Outreach Summary: Patient states is [...] Wstr 07/17 Card Wstr Patient discharged from [facility], Discharge date: 10/18/24 Admitted for: Cough , A-Fib with RVR, sob, chest pain, palpitations, shortness of breath. Readmission Risk: n/a Value-Based Contract: Jeffrey RAY Contact: Contact made with patient: Yes [...] Reyes RN November 07, 2024 3:23 PM [facility] 11-07-2024 History of Present illness Narrative Transitional Care Management (TCM) Follow-Up Note PCP Update / Actionable Items N/A - No specialty updates needed Patient Source: Aqv-cd-Bbujjum (OON) Discharge Outreach Summary: Patient states is [...] Wstr 07/17 Card Wstr Patient discharged from [facility], Discharge date: 10/18/24 Admitted for: Cough , A-Fib with RVR, sob, chest pain, palpitations, shortness of breath. Readmission Risk: n/a Value-Based Contract: Jeffrey RAY Contact: Contact made with patient: Yes [...] 2024 3:23 PM documented in this encounter [facility] 11-07-2024 Instructions Rasheed Barrios MD - 11/07/2024 10:43 AM EST We are decreasing the Amiodarone to 200 mg once per day documented in this encounter [facility] 11-07-2024 History of Present illness Narrative Images from the original note were not included. [facility] SECTION [facility] REGIONAL CARDIOLOGY Cardiology ([facility]) [address] [facility] [id number] OUTPATIENT VISIT DATE 11/07/2024 PRIMARY CARE PHYSICIAN: Atul Harvey [address] [place] [address] HISTORY OF PRESENT ILLNESS: Ms. Crane is [...] patient event(s). Isolated SVEs were frequent (5.9%, 83604), SVE Couplets were rare (<1.0%, 4227), and SVE Triplets were frequent (7.6%, 59906). Isolated VEs were occasional (3.5%, 41607), and no VE Couplets or VE Triplets [...] Rasheed Barrios MD documented in this encounter [facility] 11-07-2024 Note HNO ID: [id number] Author: RASHEED BARRIOS MD Service: ? Author Type: Physician Type: Progress Notes Filed: 11/07/2024 10:57 Note Text: [facility] SE[facility]IONAL CARDIOLOGY Cardiology ([place] [facility] [address] [facility] [address] OUTPATIENT VISIT DATE 11/07/2024 PRIMARY CARE PHYSICIAN: Atul Harvey [address] [place] [address] HISTORY OF PRESENT ILLNESS: Ms. Crane is [...] once daily. tria (more content not included)... [facility] 11-07-2024 Note Patient Outreach (AM [facility]) MARY CRANE ([id number]) 1940 F TXT Date Time Provider Department 11/07/24 KIRSTIN REYES During your visit today, we recorded the following information about you: Kirstin Reyes, RN 11/07/2024 3:25 PM Signed Transitional Care Management (TCM) Follow-Up Note PCP Update / Actionable Items N/A - No specialty updates needed Patient Source: Xak-ad-Iwbzref (OON) Discharge Outreach Summary: Patient states is [...] Wstr 07/17 Card Wstr Patient discharged from [facility], Discharge date: 10/18/24 Admitted for: Cough , A-Fib with RVR, sob, chest pain, palpitations, shortness of breath. Readmission Risk: n/a Value-Based Contract: Jeffrey RAY Contact: Contact made with patient: Yes [...] for Visit: Transition Of Care [4074] Cmt: [facility], Follow-up Day 20 Prescriptions as of 11/07/2024 [...] capsule by mout (more content not included)... [facility] 10-26-2024 Telephone encounter Note Pt informed, verbalized understanding. Pt reports she will take one before dinner. Lulú Tang MA [facility] 10-26-2024 Miscellaneous Notes Pt informed, verbalized understanding. Pt reports she will take one before dinner. Lulú Tang MA Yes a stool softener would be fine to try. Catalina Jauregui APRN.FELICIA Pt called in and reports she just [...] would be ok. documented in this encounter [facility] 10-26-2024 Telephone encounter Note Yes a stool softener would be fine to try. Catalina Jauregui APRN.CNP [facility] 10-26-2024 Telephone encounter Note Pt called [...] if a stool softener would be ok. [facility] 10-25-2024 Instructions Catalina Jauregui APRN.CNP - 10/25/2024 10:51 AM EST In about a month (mid-November) go to the pharmacy to get your RSV shot. documented in this encounter [facility] 10-25-2024 Note HNO ID: [id number] Author: CATALINA JAUREGUI APRN.EPOXY SPECIALIST Service: ? Author Type: Nurse Practitioner Type: Progress Notes Filed: 10/25/2024 11:18 Note Text: Transitional Care Management TCM Eligibility Documentation Program: Transitional Care Management Status: Enrolled Effective Dates: 10/24/2024 - present Responsible Staff: Marquis-Kirstin Vo RN Discharge date: 10/18/2024 (Program start) [...] gotten sick from a family member at [place]-got sick about 6 days later. Started with stuffy nose and then drippy nose and a little bit of a cough. On 10/12 came to express care and then was sent to [facility] ER and admitted. Was dx with RSV and admitted to the hospital-there for 6 days. Has had irregular heart beat in the past. Was dx with new onset a-fib with RVR. Had a Cardizem gtt in the hospital. Has appt with tip banding machine operator Dr. Barrios on 11/07. Overall feeling a [...] diagnosis) Continue with medications as prescribed at [facility]. Continue with cardiology at the end of this month. Continue with PCP f/u in [place] F/u as needed. 2. Encounter for immunization - ICD9: V03.89, ICD10: Z23 She will get her RSV shot at the pharmacy in 4-6 weeks. 3. RSV (acute bronchiolitis due to respiratory syncytial virus) - ICD9: 466.11, ICD10: J21.0 Continue with medications as prescribed at [facility]. Continue with cardiology at the end of this month. Continue with PCP f/u in January F/u as needed. 4. Generalized weakness - ICD9: 780.79, ICD10: R53.1 Continue with medications as prescribed at [facility]. Continue with cardiology at the end of this month. Continue with PCP f/u in January F/u as needed. 5. Decreased appetite - ICD9: 783.0, ICD10: R63.0 Continue with medications as prescribed at [facility]. Continue with cardiology at the end of this month. Continue with PCP f/u in January F/u as needed. Continue with increasing water and protein intake. Catalina Jauregui APRN.[facility] 10-25-2024 History of Present illness Narrative Transitional [...] gotten sick from a family member at [place]-got sick about 6 days later. Started with stuffy nose and then drippy nose and a little bit of a cough. On 10/12 came to express care and then was sent to [facility] ER and admitted. Was dx with RSV and admitted to the hospital-there for 6 days. Has had irregular heart beat in the past. Was dx with new onset a-fib with RVR. Had a Cardizem gtt in the hospital. Has appt with tip banding machine operator Dr. Barrios on 11/07. Overall feeling a [...] diagnosis) Continue with medications as prescribed at [facility]. Continue with cardiology at the end of this month. Continue with PCP f/u in January F/u as needed. 2. Encounter for immunization - ICD9: V03.89, ICD10: Z23 She will get her RSV shot at the pharmacy in 4-6 weeks. 3. RSV (acute bronchiolitis due to respiratory syncytial virus) - ICD9: 466.11, ICD10: J21.0 Continue with medications as prescribed at [facility]. Continue with cardiology at the end of this month. Continue with PCP f/u in January F/u as needed. 4. Generalized weakness - ICD9: 780.79, ICD10: R53.1 Continue with medications as prescribed at [facility]. Continue with cardiology at the end of this month. Continue with PCP f/u in January F/u as needed. 5. Decreased appetite - ICD9: 783.0, ICD10: R63.0 Continue with medications as prescribed at [facility]. Continue with cardiology at the end of this month. Continue with PCP f/u in January F/u as needed. Continue with increasing water and protein intake. Catalina Jauregui APRN.EPOXY SPECIALIST documented in this encounter [facility] 10-24-2024 Note HNO ID: [id number] Author: KIRSTIN REYES RN Service: ? Author Type: Registered Nurse Type: Progress Notes Filed: 10/24/2024 14:01 Note Text: Transition Care Management (TCM) Initial Outreach PCP Update / Actionable Items Eligible for tcm through 11/01/24 HRTIC TCM Home Visit Referral Source of Stratification: TCM [facility] Hospital Admission Status: Discharged Readmission Risk Score: n/a Patient's zip code: [address] Is zip code within program service area: No Patient meets program referral criteria: No Patient does not qualify for High Risk TCM Home Visit program due to: Patient's zip code is not located within program service area Disposition: Patient does not qualify for HRTIC, will provide TCM outreach follow-up for 30-days Patient Source: Cmy-ki-Qijkrff (OON) Discharge Outreach Summary: Patient states is [...] , no issues, stable Patient discharged from [facility], Discharge date: 10/18/24 Admitted for: Cough , A-Fib with RVR, sob, chest pain, palpitations, shortness of breath. Readmission Risk: n/a Value-Based Contract: Jeffrey RAY Contact: Contact made with patient: Yes Hi, my name is Kirstin Reyes RN and I am calling from the [facility] on behalf of your Primary Care [...] I will send your request to a computer graphics illustrator who will contact and assist you with [...] Reyes RN October 24, 2024 1:55 PM [facility] 10-24-2024 History of Present illness Narrative Transition Care Management (TCM) Initial Outreach PCP Update / Actionable Items Eligible for tcm through 11/01/24 [facility] TCM Home Visit Referral Source of Stratification: [facility] Hospital Admission Status: Discharged Readmission Risk Score: n/a Patient's zip code: [address] Is zip code within program service area: No Patient meets program referral criteria: No Patient does not qualify for High Risk TCM Home Visit program due to: Patient's zip code is not located within program service area Disposition: Patient does not qualify for HRTIC, will provide TCM outreach follow-up for 30-days Patient Source: Fyz-tn-Ljhnfmw (OON) Discharge Outreach Summary: Patient states is [...] , no issues, stable Patient discharged from [facility], Discharge date: 10/18/24 Admitted for: Cough , A-Fib with RVR, sob, chest pain, palpitations, shortness of breath. Readmission Risk: n/a Value-Based Contract: Jeffrey RAY Contact: Contact made with patient: Yes Hi, my name is Kirstin Reyes RN and I am calling from the [facility] on behalf of your Primary Care [...] I will send your request to a computer graphics illustrator who will contact and assist you with [...] 2024 1:55 PM documented in this encounter [facility] 10-24-2024 Note Patient Outreach (AM [facility]) MARY CRANE ([id number]) 1940 F TXT Date Time Provider Department 10/24/24 KIRSTIN REYES [facility] During your visit today, we recorded the following information about you: Kirstin Reyes, JOSE 10/24/2024 2:01 PM Signed Transition Care Management (TCM) Initial Outreach PCP Update / Actionable Items Eligible for tcm through 11/01/24 [facility] TCM Home Visit Referral Source of Stratification: [facility] Hospital Admission Status: Discharged Readmission Risk Score: n/a Patient's zip code: [address] Is zip code within program service area: No Patient meets program referral criteria: No Patient does not qualify for High Risk TCM Home Visit program due to: Patient's zip code is not located within program service area Disposition: Patient does not qualify for HRTIC, will provide TCM outreach follow-up for 30-days Patient Source: Upf-rg-Nabgzhu (OON) Discharge Outreach Summary: Patient states is [...] , no issues, stable Patient discharged from [facility], Discharge date: 10/18/24 Admitted for: Cough , A-Fib with RVR, sob, chest pain, palpitations, shortness of breath. Readmission Risk: n/a Value-Based Contract: Jeffrey RAY Contact: Contact made with patient: Yes Hi, my name is Kirstin Reyes RN and I am calling from the [facility] on behalf of your Primary Care [...] I will send your request to a computer graphics illustrator who will contact and assist you with [...] 5 - Intolerance (more content not included)... [facility] 10-20-2024 Telephone encounter Note The [...] Turk RN October 20, 2024 8:07 AM [facility] 10-20-2024 Miscellaneous Notes The patient has [...] 2024 8:07 AM documented in this encounter [facility] 10-18-2024 Note [facility] Medical Records Department [address] [place] [address] Discharge Summary 10/18/24 0830 MR#: [id number] Acct: [id number] Name: MARY CRANE Rep #: [id number] : 1940 84 From: Rasheed Ledezma MD PCP: Dr. Atul Harvey DO Status:ADM IN [facility] Prov[facility] Date of Admission: 10/12/24 Date of Discharge: 10/18/24 Primary Care Physician: Dr. Atul Harvey, DO Consultations 10/16/24 09:36 Consult: Cardiology Routine Consulting Provider: Hieu,[place] Reason for Consult: afib EMERGENT Consult: No [...] and started on scheduled Cardizem. With patient [id number] score being 3 patient was started on [...] mg-vit E 90 mg-zinc 40 mg-copper 1 gu-sxbxom-bzfrmr capsule (PreserVision AREDS-2) 1 tab PO BID supplement 10/13/24 acetaminophen 325 mg tablet 650 mg (2 x 325 mg) PO Q6H PRN PRN Pain 1-10 Or Fever>100.7 #0 tabs 10/18/24 amiodarone 200 mg tablet 200 mg PO BID 60 days #120 tabs 10/18/24 apixaban 5 mg tablet (Eliquis) 5 mg PO BID #60 tabs 10/18/24 g (more content not included)... [facility] 10-12-2024 Evaluation note Diagnosis Onset Date Resolution Hypertension chronic October 12, 2024 4:36pm Acute dyspnea resolved October 4:36pm Atrial fibrillation with RVR resolved October 12 4:36pm RSV (respiratory syncytial virus infection) resolved October 12 4:36pm RSV bronchiolitis resolved October 12, 2024 4:36pm [facility] Work Phone: 1(983) 553-424401-01-2025 NoteHNO ID: [id number] Author: RICHARD PINEDA APRN.EPOXY SPECIALIST Service: ? Author Type: Nurse Practitioner Type: [...] Hypertension Mother Heart Father (more content not included)...[facility]01-01-2025 History of Present illness Narrative* Richard Pineda, [facility] - 10/12/2024 1:05 PM EST Subjective HPI [...] agreeable. Her daughter will take her by privateauto. Richard Pineda APRN.EPOXY SPECIALIST [facility] Telephone encounter Note * Telephone Encounter [...] evaluated. Patient voiced understanding. Camila Finley RN [facility]12-31-2024 Miscellaneous Notes* Telephone Encounter - Camila [...] understanding. Camila Finley RN [facility] Telephone encounter Note * Telephone Encounter - Lulú Tang MA - 10/07/2024 8:16 AM EST Pt informed Lulú Tang MA [facility]12-27-2024 Miscellaneous Notes* Telephone Encounter - Lulú [...] advise. Joslyn Turk RN [facility] Telephone encounter Note * Telephone Encounter - Atul Harvey DO - 10/07/2024 7:05 AM EST The following approved medication requests have been transmitted electronically. Requested Prescriptions Signed Prescriptions Disp Refills cholecalciferol, Vitamin D3, (VITAMIN D3) 1,250 mcg (50,000 unit) cap capsule 12 capsule 2 Sig: Take 1 capsule by mouth one time a week. Authorizing Provider: ATUL HARVEY DO [facility]12-26-2024 Telephone encounter Note* Telephone Encounter - [...] Please review and advise. Joslyn Turk RN [facility]12-09-2024 NoteHNO ID: [id number] Author: ELLEN VILLAR MA Service: ? Author Type: Horticultural Specialty Grower Type: Progress Notes Filed: 10/12/2024 16:32 Note Text: PT ASSESSMENT - CASTING ROOM Mary presents for Application of brace. Applied Actimove [facility] brace size small to Left hand Patient has been instructed in Care and proper application of brace. Patient verbalized understanding. [facility]12-09-2024 History of Present illness Narrative* [...] Phuc Marti MD Department of Orthopaedics Orthopaedics [address] [place] [address] Dept: [phone] Dept September 19, 2024 CHIEF COMPLAINT: New [...] physician via US mail. Atul Harvey [address] [facility] [address] Atul Harvey DO [address] [facility] [address] Phuc Marit MD documented [facility]12-[facility]-2024 NoteHNO ID: [id number] Author: PHUC MARTI MD Service: ? Author Type: Physician Type: Progress Notes Filed: 10/12/2024 16:32 Note Text: Phuc Marti MD Department of Orthopaedics Orthopaedics [address] [place] [address] Dept: [phone] Dept September 19, 2024 CHIEF COMPLAINT: New [...] For diarrhea or abd (more content not included)...[facility]12-09-2024 NoteHNO ID: [id number] Author: MITESH MCCABE RN Service: ? Author Type: Registered Nurse Type: Progress Notes Filed: 09/19/2024 10:27 Note Text: [facility] Telephonic Outreach Provider Meghana/LAZARUS foster ckd [...] appt this afternoon w/ ortho Based on fire patrol, the following disposition is advised: No symptoms or symptoms present, not severe. Routed to: No Action Needed NALINI Education Provided this Outreach: No Mitesh Mccabe RN September 19, 2024 10:25 [facility]12-09-2024 History of Present illness Narrative* Mitesh Mccabe RN - 09/19/2024 10:23 AM EST [facility] Telephonic Outreach Provider Meghana/LAZARUS foster ckd [...] appt this afternoon w/ ortho Based on fire patrol, the following disposition is advised: No symptoms or symptoms present, not severe. Routed to: No Action Needed NALINI Education Provided this Outreach: No Mitesh Mccabe RN September 19, 2024 10:25 AM * Mitesh Mccabe RN - 09/16/2024 1:36 PM EST CD Telephonic Outreach Provider Action/FYI -chf, ckd Contacted for: Routine Telephonic Outreach Contact made with patient: No, left message. Mitesh Mccabe RN September 16, 2024 1:37 PM [facility]2024 NoteHNO ID: [id number] Author: MITESH MCCABE RN Service: ? Author Type: Registered Nurse Type: Progress Notes Filed: 09/19/2024 10:27 Note Text: [facility] Telephonic Outreach Provider Action/FYI -chf, ckd Contacted for: Routine Telephonic Outreach Contact made with patient: No, left message. Mitesh Mccabe RN September 16, 2024 1:37 [facility]12-06-2024 NotePatient Outreach ([facility]) MARY CRANE ([id number]) 1940 F TXT Date Time Provider Department 09/16/24 MITESH MCCABE During your visit today, we recorded the following information about you: Mitesh Mccabe RN 09/19/2024 10:27 AM Signed [facility] Telephonic Outreach Provider Action/FYI -chf, ckd Contacted for: Routine Telephonic Outreach Contact made with patient: No, left message. Mitesh Mccabe RN September 16, 2024 1:37 PM Mitesh Mccabe RN 09/19/2024 10:27 AM Signed [facility] Telephonic Outreach Provider Action/FYI -chf, ckd [...] appt this afternoon w/ ortho Based on fire patrol, the following disposition is advised: No symptoms [...] sites w*02/27/2006 CARPAL TU (more content not included)...[facility]11-21-2024 Telephone encounter Note* Telephone Encounter - Ellen Christopher LPN - 09/01/2024 6:17 PM EST Spoke with pt gave information provided. Pt voices understanding has appointment with ortho set up. [facility]11-21-2024 Miscellaneous Notes* Telephone Encounter - Ellen Christopher LPN - 09/01/2024 6:17 PM EST Spoke with pt gave information provided. Pt jamilah understanding has appointment with ortho set up. * Telephone Encounter - Atul Harvey DO - 08/31/2024 10:11 PM EST Please let her know that her hand/wrist xray shows osteoarthritis, she can consider follow up with ORthopedics for injection in joint Atul Harvey DO [facility] Telephone encounter Note * Telephone Encounter - Atul Harvey DO - 08/31/2024 10:11 PM EST Please let her know that her hand/wrist xray shows osteoarthritis, she can consider follow up with ORthopedics for injection in joint Atul Harvey DO [facility]11-11-2024 History of Present illness Narrative* Rao Vance RT(R) - 08/22/2024 11:30 AM EST Radiology Service [...] PATIENT PRESENTS WITH AN IMPLANTABLE OR ATTACHED ARCHITECTURAL WOOD MODEL MAKER: No RADIOLOGY DEPARTMENT: General X-ray: Exam(s) Completed: Upper Extremity X- Ray(s): Wrist, left PERIPHERAL IV DATA: Not applicable SIGNED BY: RT Kirti(Kenneth) August 22, 2024 8:52 PM documented in this encounterM[facility]11-[facility]-2024 NoteHNO ID: [id number] Author: RAO VANCE RT(Kenneth) Service: ? Author Type: Technologist Type: Progress [...] PATIENT PRESENTS WITH AN IMPLANTABLE OR ATTACHED ARCHITECTURAL WOOD MODEL MAKER: No RADIOLOGY DEPARTMENT: General X-ray: Exam(s) Completed: Upper Extremity X-Ray(s): Wrist, left PERIPHERAL IV DATA: Not applicable SIGNED BY: RT Kirti(R) August 22, 2024 8:52 [facility]11-11-2024 Instructions* Patient Instructions* Atul Harvey DO - 08/22/2024 10:11 AM EST Increase your protein in your diet and Start taking iron supplement - take SLO FE with 45-67 mg of iron in it every other day, take with ameal. documented in this encounterM[facility]11-[facility]-2024 NoteHNO ID: [id number] Author: ATUL HARVEY DO Service: ? Author [...] - 4.200 mIU/L Final RA, seen by [facility] for care, taking Otezla as prescribed HTN, well controlled, taking medications as prescribed. Sees Welding Operator routinely, Only occasional palpitations and heart racing symptoms as well as dyspnea if she is exerting up an incline such as walking up her driveway after getting her mail, no chest pressure or Pain . Sees Welding Operator PAST MEDICAL HISTORY Diagnosis Date Advance care [...] mouth twice daily. 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 Sees Welding Operator routinely, Only occasional palpitations and heart racing symptoms as well as dyspnea if she is exerting up an incline such aswalking up her driveway after getting her mail, no chest pressure or Pain . Sees Welding Operator PAST MEDICAL HISTORY Diagnosis Date Advance care [...] agreed with the plan. Atul Harvey DO [address] [place] [address] documented in this [facility]11-[facility]24 Telephone encounter Note * Telephone Encounter - Brooklyn Ying RN - 08/15/2024 12:36 PM EST Patient calling to ask about lab orders. Advised fasting labs ordered. Brooklyn Ying RN [facility]11-04-2024 Miscellaneous Notes* Telephone Encounter - Brooklyn [...] Sky PA-C * Telephone Encounter - Kimi Wyatt RN - 08/15/2024 8:31 AM EST Pt asking office to call her, once orders are in the lab, to let her know. [phone] * Telephone Encounter - Lulú Tang MA - 08/12/2024 11:46 AM EDT Pt request lab orders. Pended basic labs. Please file. Lulú Tang MA documented in [facility] encounterM[facility]11-[facility]-2024 Telephone encounter Note * Telephone Encounter - Ellen Christopher LPN - 08/15/2024 10:42 AM EST Message left labs were ordered. [facility]11-04-[facility] Telephone encounter Note* Telephone Encounter - Cecilia Sky PA-C - 08/15/2024 9:47 AM EST Labs ordered-please contact patient per below Cecilia Sky PA-C [facility]11-04-2024 Telephone encounter Note* Telephone Encounter - Kimi Wyatt RN - 08/15/2024 8:31 AM EST Pt asking office to call her, once orders are in the lab, to let her know. [phone] [facility]11-01-2024 Telephone encounter Note* Telephone Encounter - Lulú Tang MA - 08/12/2024 11:46 AM EDT Pt request lab orders. Pended basic labs. Please file. Lulú Tang MA [facility]10-21-2024 NoteHNO ID: [id number] Author: CHRISTEL CHISHOLM RN Service: ? Author Type: Registered Nurse Type: Progress Notes Filed: 08/01/2024 11:30 Note Text: EVENT MONITOR DISPOSABLE PATCH INSTRUCTIONS Patient Name: Mary Crane Clinic Number: [id number] Skin prepped and cleansed with alcohol Patch secured to prepped area Monitor Activated Serial #: [id number] Patient Instructed: Prescribed order timeframe Bathing guidelines Usage of event button and diary documentation Return of monitor at the end of prescribed order Call with problems [phone] or [phone] ext. [phone] Patient expresses a good understanding of instructions [facility] History of Present illness Narrative* Christel Chisholm RN - 08/01/2024 11:09 AM EDT EVENT MONITOR DISPOSABLE PATCH INSTRUCTIONS Patient Name: Mary Crane Clinic Number: [id number] Skin prepped and cleansed with alcohol Patch secured to prepped area Monitor Activated Serial #: [id number] Patient Instructed: Prescribed order timeframe Bathing guidelines Usage of event button and diary documentation Return of monitor at the end of prescribed order Call with problems [phone] or [phone]. [phone] Patient expresses a good understanding of instructions Christel Chisholm RN * Rasheed Barrios MD - 08/01/2024 10:40 AM EDT Images from the original note were not included. [facility] SECTION OF REGIONAL CARDIOLOGY Cardiology ([facility]) [address] [id number] OUTPATIENT VISIT DATE 08/01/2024 PRIMARY CARE PHYSICIAN: Atul Harvey [address] [place] [address] HISTORY OF PRESENT ILLNESS: Ms. Crane is [...] CC echocardiographic exam performed on 04/17/2023, with increasein [...] TELEMETRY) Rasheed Barrios MD documented in this encounterM[facility]10-21-2024 NoteHNO ID: [id number] Author: RASHEED BARRIOS MD Service: ? Author Type: Physician Type: Progress Notes Filed: 08/01/2024 11:30 Note Text: [facility]IONAL CARDIOLOGY Cardiology ([facility]) [address] [id number] OUTPATIENT VISIT DATE 08/01/2024 PRIMARY CARE PHYSICIAN: Atul Harvey [address] [place] [id number] HISTORY OF PRESENT ILLNESS: Ms. Crane is [...] rash, Apply sparingl (more content not included)... [facility]10-11-2024 NoteHNO ID: [id number] Author: MITESH MCCABE RN Service: ? Author Type: Registered Nurse Type: Progress Notes Filed: 07/22/2024 09:43 Note Text: CDM Telephonic Outreach Provider Action/FYI [...] legs, feet or ankles? No Based on fire patrol, the following disposition is advised: No symptoms or symptoms present, not severe. Routed to: No Action Needed NALINI Education Provided this Outreach: No Mitesh Mccabe RN July 22, 2024 9:41 [facility]10-11-2024 History of Present illness Narrative* Mitesh Mccabe RN - 07/22/2024 9:37 AM EDT [facility] Telephonic Outreach Provider Action/FYI -chf, ckd [...] legs, feet or ankles? No Based on fire patrol, the following disposition is advised: No symptoms or symptoms present, not severe. Routed to: No Action Needed NALINI Education Provided this Outreach: No Mitesh Mccabe RN July 22, 2024 9:41 AM * Mitesh Mccabe RN - 07/21/2024 11:40 AM EDT [facility] Telephonic Outreach Provider Meghana/FYI -chf, ckd Contacted for: Routine Telephonic Outreach Contact made with patient: No, left message. Mitesh Mccabe RN July 21, 2024 11:41 AM documented in this encounterMansfield Hospital10-10-2024 NoteHNO ID: [id number] Author: MITESH MCCABE RN Service: ? Author Type: Registered Nurse Type: Progress Notes Filed: 07/22/2024 09:43 Note Text: [facility] Telephonic Outreach Provider Meghana/FYI -chf, ckd Contacted for: Routine Telephonic Outreach Contact made with patient: No, left message. Mitesh Mccabe RN July 21, 2024 11:41 [facility]10-10-2024 NotePatient Outreach ([facility]) GREGMARY Kenneth ([id number]) 1940 F TXT Date Time Provider Department 07/21/24 [facility] During your visit today, we recorded the following information about you: Mitesh Mccabe RN 07/22/2024 9:43 AM Signed [facility] Telephonic Outreach Provider Action/FYI -chf, ckd Contacted for: Routine Telephonic Outreach Contact made with patient: No, left message. Mitesh Mccabe RN July 21, 2024 11:41 AM Mitesh Mccabe RN 07/22/2024 9:43 AM Signed [facility] Telephonic Outreach Provider Action/FYI -chf, ckd [...] legs, feet or ankles? No Based on fire patrol, the following disposition is advised: No symptoms [...] Date Reviewed: 05/20/2024 Reviewed by: Milana Armijo APRN.EPOXY SPECIALIST - Fully Assessed Reason for Visit: community [...] [I10] 05/30/2014 Sicca syndrome (more content not included)...[facility] 06-28-2024 NoteHNO ID: [id number] Author: MITESH MCCABE RN Service: ? Author Type: Registered Nurse Type: Progress Notes Filed: 06/28/2024 09:54 Note Text: [facility] Telephonic Outreach Provider Action/FYI -ckd, chf ADLs/fall risk/SDOH updated 03/04/24 Contacted for: Routine Telephonic Outreach Contact made with patient: No, left message. Mitesh Mccabe RN June 28, 2024 9:54 [facility]09-17-2024 History of Present illness Narrative* Mitesh Mccabe RN - 06/28/2024 9:53 AM EDT CD Telephonic Outreach Provider Action/FYI -ckd, chf ADLs/fall risk/SDOH updated 03/04/24 Contacted for: Routine Telephonic Outreach Contact made with patient: No, left message. Mitesh Mccabe RN June 28, 2024 9:54 AM * Mitesh Mccabe RN - 06/27/2024 11:46 AM EDT [facility] Telephonic Outreach Provider Action/FYI -ckd, chf ADLs/fall risk/SDOH updated 03/04/24 Contacted for: Routine Telephonic Outreach Contact made with patient: No, left message. Mitesh Mccabe RN June 27, 2024 11:47 AM documented in this encounterMansfield Hospital09-16-2024 NoteHNO ID: [id number] Author: MITESH MCCABE RN Service: ? Author Type: Registered Nurse Type: Progress Notes Filed: 06/28/2024 09:54 Note Text: [facility] Telephonic Outreach Provider Action/FYI -ckd, chf ADLs/fall risk/SDOH updated 03/04/24 Contacted for: Routine Telephonic Outreach Contact made with patient: No, left message. Mitesh Mccabe RN June 27, 2024 11:47 [facility]09-16-2024 NotePatient Outreach ([facility]) MARY CRANE ([id number]) 1940 F TXT Date Time Provider Department 06/27/24 MITESH MCCABE During your visit today, we [...] Date Reviewed: 05/20/2024 Reviewed by: Milana Armijo APRN.EPOXY SPECIALIST - Fully Assessed Reason for Visit: community [...] unspecified(787.20) [R13.10] 12/21/2014 12/22/19 (more content not included)...[facility]08-20-20[facility] History of Present illness Narrative* Mitesh Mccabe RN - 05/31/2024 11:02 AM EDT CDM Telephonic Outreach Provider Action/FYI [...] daily weight at home? No Based on fire patrol, the following disposition is advised: No symptoms or symptoms present, not severe. Routed to: No Action Needed NALINI Education Provided this Outreach: No Mitesh Mccabe RN May 31, 2024 11:04 AM * Mitesh Mccabe RN - 05/30/2024 2:29 PM EDT [facility] Telephonic Outreach Provider Action/FYI -chf, ckd ADLs/fall risk/SDOH updated 03/04/24 Contacted for: Routine Telephonic Outreach Contact made with patient: No, left message. Mitesh Mccabe RN May 30, 2024 2:30 PM documented in this encounterMansfield Hospital08-15-2024 History of Present illness Narrative* Annie [...] PATIENT PRESENTS WITH AN IMPLANTABLE OR ATTACHED ARCHITECTURAL WOOD MODEL MAKER: No RADIOLOGY DEPARTMENT: Ultrasound PERIPHERAL IV DATA: Not applicable SIGNED BY: Annie Iniguez RDMS May 26, 2024 10:30 AM documented in this encounterMansfield Hospital08-09-2024 History of Present illness Narrative* Milana Armijo APRN.EPOXY SPECIALIST - 05/20/2024 10:00 AM EDT Chief Complaint [...] 08/03/2024 Covid-19 Vaccine( season) due on 10/23/2024 Influenza Vaccine(1) due [...] Patient agreeable to treatment plan. Milana Vegas APRN.EPOXY SPECIALIST [address] [place] [address] documented in this encounterMansfield Hospital07-30-2024 Telephone encounter Note * Telephone Encounter [...] Take on empty stomach. For Thyroid Rabia Waterscaitlin Rodriguez May 10, 2024 8:53 AM [facility]07-30-[facility] Miscellaneous Notes* Telephone Encounter - YusufRabia Oosrio - 05/10/2024 8:52 AM EDT Prescription Refill [...] 10, 2024 8:53 AM documented in this encounterMansfield Hospital07-24-2024 Telephone encounter Note * Telephone Encounter - Tracy Rawls RN - 05/04/2024 1:43 PM EDT Patient called back and the below results given. Patient denies any questions at this time. Tracy Rawls RN [facility]-24-[facility] Miscellaneous Notes* Telephone Encounter - Tracy Rawls RN - 05/04/2024 1:43 PM EDT Patient called back and the below results given. Patient denies any questions at this time. Tracy Rawls RN * Telephone Encounter - Allyssa Craig LPN - 05/04/2024 8:06 AM EDT Left message for Ms. Crane to call [facility] for test results. [facility] phone number provided. Allyssa Craig LPN * Telephone Encounter - Allyssa Craig LPN - 05/04/2024 6:57 AM EDT ----- Message from Rasheed Barrios MD sent at 05/03/2024 5:32 PM EDT ----- Please call the patient to let him know that his echo looked good documented in this encounterMansfield Hospital07-24-2024 Telephone encounter Note * Telephone Encounter - Allyssa Craig LPN - 05/04/2024 8:06 AM EDT Left message for Ms. Crane to call [facility] for test results. [facility] phone number provided. Allyssa Craig LPN [facility]07-24-[facility]24 Telephone encounter Note* Telephone Encounter - Allyssa Craig LPN - 05/04/2024 6:57 AM EDT ----- Message from Rasheed Barrios MD sent at 05/03/2024 5:32 PM EDT ----- Please call the patient to let him know that his echo looked good [facility]07-23-[facility] History of Present illness Narrative* Mitesh Mccabe RN - 05/03/2024 10:48 AM EDT [facility] Telephonic Outreach Provider Action/FYI [...] than normal for you? No Based on fire patrol, the following disposition is advised: No symptoms or symptoms present, not severe. Routed to: No Action Needed NALINI Education Provided this Outreach: No Mitesh Mccabe RN May 03, 2024 10:57 AM * Mitesh Mccabe RN - 05/02/2024 3:53 PM EDT [facility] Telephonic Outreach Provider Action/FYI -chf, ckd ADLs/fall risk/SDOH updated 03/04/24 Contacted for: Routine Telephonic Outreach Contact made with patient: No, left message. Mitesh Mccabe RN May 02, 2024 3:54 PM documented in this encounterMansfield Hospital06-27-2024 History of Present illness Narrative* Mitesh Mccabe RN - 04/07/2024 10:58 AM EDT [facility] Telephonic Outreach Provider Action/FYI -chf, ckd ADLs/fall risk/SDOH updated 03/04/24 Contacted for: Routine Telephonic Outreach Contact made with patient: No, left message. Mitesh Mccabe RN April 07, 2024 10:59 AM * Mitesh Mccabe RN - 04/06/2024 1:37 PM EDT [facility] Telephonic Outreach Provider Action/FYI -chf, ckd Contacted for: Routine Telephonic Outreach Contact made with patient: No, left message. Mitesh Mccabe RN April 06, 2024 1:38 PM documented in this encounterMansfield Hospital06-07-2024 History of Present illness Narrative* Catalina Jauregui APRN.EPOXY SPECIALIST - 03/18/2024 8:35 AM EDT Chief Complaint Patient presents with: Cellulitis: Left arm HPI Mary Crane is a 83 year old female who presents here today for Above Complaints.. Per visit with myself 2 days ago on 03/16/2024: Chief Complaint Patient presents with: Insect Bite: Wasp sting yesterday left arm swollen , painful and itchy. HPI Mray Crane is a 83 year old female who presents here today for Above Complaints.. Per nurse triage note today 03/16/2024: Christel Wagner RN AB 03/16/24 11:07 AM Note Protocol recommends see provider in 24 hours. Pt is scheduled to see Catalina Jauregui GENERAL OPHTHALMOLOGIST at 120 pm.Care plan reviewed with patient. [...] hives. 9. : Postmenopausal. Protocols used: Insect [id number]-WJ Currently: Took Tylenol last evening which didn't [...] TABLETS IN A DOSE PACK Catalina Jauregui APRN.EPOXY SPECIALIST Currently: Has had significant improvement with her [...] improve. Catalina Jauregui APRN.FELICIA documented in this encounterMansfield Hospital06-05-2024 Instructions* Patient Instructions* Catalina Jauregui APRN.CNP [...] Medrol Dose janeth today. documented in this encounterMansfield Hospital06-05-2024 History of Present illness Narrative* Catalina [...] Pt is scheduled to see Catalina Jauregui GENERAL OPHTHALMOLOGIST at 120 pm.Care plan reviewed with patient. [...] hives. 9. : Postmenopausal. Protocols used: Insect Bhyr-EWEFR-BS Currently: Took Tylenol last evening which didn't [...] TABLETS IN A DOSE PACK Catalina Jauregui APRN.FELICIA documented in this encounterMansfield Hospital06-05-2024 Telephone encounter Note * Telephone Encounter - Christel Wagner RN - 03/16/2024 11:07 AM EDT Protocol recommends see provider in 24 hours. Pt is scheduled to see Catalina Jauregui GENERAL OPHTHALMOLOGIST at 120 pm.Care plan reviewed with patient. [...] hives. 9. : Postmenopausal. Protocols used: Insect Pljx-ITSJV-DJ [facility]06-05-[facility]24 Miscellaneous Notes* Telephone Encounter - Christel Wagner RN - 03/16/2024 11:07 AM EDT Protocol recommends see provider in 24 hours. Pt is scheduled to see Catalina Jauregui GENERAL OPHTHALMOLOGIST at 120 pm.Care plan reviewed with patient. [...] hives. 9. : Postmenopausal. Protocols used: Insect Bvdm-HIDTB-KT documented in this encounterMansfield Hospital05-31-2024 Telephone encounter Note * Telephone Encounter [...] 08/22/2024 Please advise. Thank you. Shelley Perez. [facility]05-31-[facility]24 Miscellaneous Notes* Telephone Encounter - Shelley [...] Thank you. Shelley Perez. documented in this encounterMansfield Hospital05-24-2024 History of Present illness Narrative* Mitesh [...] than normal for you? No Based on fire patrol, the following disposition is advised: No symptoms or symptoms present, not severe. Routed to: No Action Needed NALINI Education Provided this Outreach: No Mitesh Mccabe RN March 04, 2024 10:44 AM * Mitesh Mccabe RN - 03/02/2024 3:49 PM EDT [facility] Telephonic Outreach Provider Meghana/LAZARUS Heartchf, ckd Contacted for: Routine Telephonic Outreach Contact made with patient: No, left message. Mitesh Mccabe RN March 02, 2024 3:49 PM documented in this encounterMansfield Hospital05-23-2024 Telephone encounter Note * Telephone Encounter [...] Please advise. Thank you. Lori Chino RN. [facility]05-23-2024 Miscellaneous Notes* Telephone Encounter - Lori [...] you. Lori Chino RN. documented in this encounterMansfield Hospital05-15-2024 Telephone encounter Note * Telephone Encounter - Camila Finley RN - 02/24/2024 10:19 AM EDT Patient notified of results and provider's instructions. Patient verbalizes understanding. Camila Finley RN [facility]05-15-2024 Miscellaneous Notes* Telephone Encounter - Camila [...] ordered Atul Harvey DO documented in this encounterMansfield Hospital05-14-2024 Telephone encounter Note * Telephone Encounter [...] 3-6 months as ordered Atul Harvey DO [facility]05-14-[facility] Telephone encounter Note* Telephone Encounter - Lizzy Savage MA - 02/23/2024 12:23 PM EDT The following approved medication requests have been transmitted electronically. Requested Prescriptions Signed Prescriptions Disp Refills levothyroxine (LEVOXYL) 25 mcg tablet 30 tablet 2 Sig: Take 1 tablet by mouth once daily. Take on empty stomach. For Thyroid Authorizing Provider: MILANA ARMIJO MA [facility]05-14-2024 Miscellaneous Notes* Telephone Encounter - Lizzy [...] with daughter also. Assisted with transfer to computer graphics illustrator to get ultrasound appt set up. Patient will take the Levothyroxine rx, she uses [facility] for her pharmacy. * Telephone Encounter - [...] liver Atul Harvey DO documented in this encounterMansfield Hospital05-14-2024 History of Present illness Narrative* Velma Robin RDMS - 02/23/2024 7:45 AM EDT Radiology Service [...] PATIENT PRESENTS WITH AN IMPLANTABLE OR ATTACHED ARCHITECTURAL WOOD MODEL MAKER: No RADIOLOGY DEPARTMENT: Ultrasound PERIPHERAL IV DATA: Not applicable SIGNED BY: Velma Robin RDMS RVT February 23, 2024 8:18 AM documented in this encounterMansfield Hospital05-13-2024 Telephone encounter Note * Telephone Encounter - Faiza Moreland MA - 02/22/2024 10:55 AM EDT Message left for pt to call back for results. Faiza Moreland MA [facility]05-13-2024 Telephone encounter Note* Telephone Encounter - Nathaly Benites MA - 02/22/2024 8:49 AM EDT Pharmacy request denied. Patient needs to contact office for refills. Nathaly Benites MA [facility]05-13-2024 Miscellaneous Notes* Telephone Encounter - Nathaly Benites MA - 02/22/2024 8:49 AM EDT Pharmacy request denied. Patient needs to contact office for refills. Nathaly Benites MA documented in this encounterMansfield Hospital05-09-2024 Telephone encounter Note * Telephone Encounter - Lulú Tang MA - 02/18/2024 3:15 PM EDT Left message to return call Lulú Tang MA [facility]05-09-2024 Telephone encounter Note* Telephone Encounter - [...] For Thyroid Authorizing Provider: MILANA ARMIJO APRN.CNP [facility]05-09-20[facility] Telephone encounter Note* Telephone Encounter - Ely Alarcon LPN - 02/18/2024 10:34 AM EDT Patient returned call and went over results, notes from Dr Harvey with understanding. Had to go over with daughter also. Assisted with transfer to computer graphics illustrator to get ultrasound appt set up. Patient will take the Levothyroxine rx, [facility] Telephone encounter Note* Telephone Encounter - Lulú Tang MA - 02/18/2024 9:36 AM EDT Left message to return call Lulú Tang MA [facility]05-08-2024 Telephone encounter Note* Telephone Encounter - [...] history of fatty liver Atul Harvey DO [facility]05-08-[facility] History of Present illness Narrative* Atul [...] fmhx of thyroid disease RA, seen by [facility] T[facility] for care, taking Otezla as prescribed Stung by wasp on right arm 1-2 weeks ago, has had a rash since then HTN, well controlled, taking medications as prescribed. Sees Welding Operator routinely, Only occasional palpitations and heart racing [...] See patient instructions. Atul Harvey DO [address] [place] [address] documented in this encounterMansfield Hospital04-17-2024 Miscellaneous Notes* Telephone Encounter - Mayr Mendieta LPN - 01/27/2024 5:57 PM EDT Pt. informed. * Telephone Encounter - Milana Armijo APRN.CNP - 01/27/2024 5:26 PM EDT Labs are placed. These need to be fasting and completed a few days prior to appointment. Thank you, Milana Armijo APRN.CNP * Telephone Encounter - Camila Finley RN - 01/26/2024 9:00 AM EDT Patient calls and states that she has appointment scheduled with provider on 02/17/2024 which is a 6 month follow up. Patient asking if provider wants labs done prior to appointment? Please review and advise, Camila Finley RN documented in this encounterMansfield Hospital04-04-2024 Miscellaneous Notes* Telephone Encounter - Ellen [...] notify patient. Nathaly Rodriguez documented in this encounterMansfield Hospital04-01-2024 History of Present illness Narrative* Mitesh Mccabe RN - 01/11/2024 2:06 PM EDT [facility] Telephonic Outreach Provider Action/JOHNNAI -chf, ckd Pt has appt w/ pcp 02/17/24; will postpone next outreach call to end of February, pt in agreement Contacted for: Routine Telephonic [...] pounds in a week? No Based on fire patrol, the following disposition is advised: No symptoms or symptoms present, not severe. Routed to: No Action Needed NALINI Education Provided this Outreach: No Mitesh Mccabe RN January 11, 2024 2:11 PM documented in this encounterMansfield Hospital03-04-2024 Miscellaneous Notes* Telephone Encounter - Mitesh Mccabe RN - 12/14/2023 1:[address] Harvey The following approved medication requests have been transmitted electronically. Requested Prescriptions Pending Prescriptions Disp Refills folic acid 1 mg tablet 180 tablet 3 Sig: Take 2 tablets by mouth once daily. CECILIO 10/23/23 NOV 02/10/24 Mitesh Mccabe RN documented in this encounterMansfield Hospital03-04-2024 History of Present illness Narrative* Mitesh Mccabe RN - 12/14/2023 1:51 PM EST [facility] Telephonic Outreach Provider Action/FYI -chf, ckd [...] breath with activity? No does have some VALENZUEAL as explained to cards last week who [...] than normal for you? No Based on fire patrol, the following disposition is advised: No symptoms or symptoms present, not severe. Routed to: No Action Needed NALINI Education Provided this Outreach: No Mitesh Mccabe RN December 14, 2023 1:58 PM documented in this encounterMansfield Hospital02-07-2024 Miscellaneous Notes* Telephone Encounter - Mary [...] name and date of : Yes, Provider Harvey Patient phones for refill(s): Requested Prescriptions Pending [...] Thank you. Mary Rodriguez. documented in this encounterMansfield Hospital02-06-2024 History of Present illness Narrative* [facility] Navigator Myra Red - 11/17/2023 10:05 AM EST POP[facility] NAVIGATION OUTREACH Action/FYI I spoke to patient and rescheduled appointment with PCP. Patient Identified by Name and : YES, via phone Outreach Outcome/Action Spoke to patient / parent / legal guardian: Patient scheduled Did you use a PCP flex slot to schedule this appointment? No Reason for Outreach [facility] Payer: Payor: [employer] MEDICARE / Plan: [employer] MEDICARE PPO / Product Type: PPO / Care Gap Reviewed:: Follow-up appointment Reminder: Reminder note to check Health Maintenance for items below Health Maintenance items due: There are no preventive care reminders to display for this patient. Navigation Signature: Myra Red [facility] Navigator November 17, 2023 10:05 AM Electronically signed by [facility] NavigMyra purdy at 11/17/2023 10:06 AM EST * Mitesh Mccabe RN - 11/17/2023 9:43 AM EST [facility] Telephonic Outreach Provider Action/ -chf, ckd Pt has upcoming appt in January w/ EPOXY SPECIALIST and was under the impression it was w/ PCP; pt would like to know if there are any appts around that time frame where she can see her pcp instead; Will forward [facility] navigation team for further assistance and ask [...] than normal for you? No Based on fire patrol, the following disposition is advised: No symptoms or symptoms present, not severe. Routed to: Navigation Team: Annual Wellness visit Pt requesting to be seen by pcp instead of EPOXY SPECIALIST ifpossible NALINI Education Provided this Outreach: No Mitesh Mccabe RN November 17, 2023 9:48 AM * Mitesh Mccabe RN - 11/16/2023 2:31 PM EST [facility] Telephonic Outreach Provider Meghana/LAZARUS Heartchf ckd Contacted for: Routine Telephonic Outreach Contact made with patient: No, left message. Mitesh Mccabe RN November 16, 2023 2:32 PM documented in this encounterMansfield Hospital01-18-2024 History of Present illness Narrative* Freida [...] 29, 2023 10:58 AM documented in this encounterMansfield Hospital12-21-2023 History of Present illness Narrative* Mitesh Mccabe RN - 10/01/2023 10:10 AM EST [facility] Telephonic Outreach Provider Action/FYI -chf, ckd 2nd attempt, LVM Contacted for: Routine Telephonic Outreach Contact made with patient: No, left message. Mitesh Mccabe RN October 01, 2023 10:12 AM * Mitesh Mccabe RN - 09/30/2023 11:04 AM EST [facility] Telephonic Outreach Provider Action/FYI -chf, ckd 1st Contacted for: Routine Telephonic Outreach Contact made with patient: No, left message. Mitesh Mccabe RN September 30, 2023 11:04 AM documented in this encounterMansfield Hospital11-22-2023 History of Present illness Narrative* Mitesh Mccabe RN - 09/02/2023 12:00 PM EST [facility] Telephonic Outreach Provider Action/FYI -chf, ckd [...] than normal for you? No Based on fire patrol, the following disposition is advised: No symptoms or symptoms present, not severe. Routed to: No Action Needed NALINI Education Provided this Outreach: No Mitesh Mccabe RN September 02, 2023 12:03 PM documented in this encounterMansfield Hospital10-25-2023 History of Present illness Narrative* Mitesh Mccabe RN - 08/05/2023 4:17 PM EDT Care Coordination Deferred Outreach Provider Action / FYI: Deferred outreach to patient at this time due to: Chart Review Only Next Outreach date: 09/02/23; pt seen by pcp team 08/03/23 Mitesh Mccabe RN August 05, 2023 4:17 PM documented in this encounterMansfield Hospital10-12-2023 Miscellaneous Notes* Telephone Encounter - Ely Alarcon LPN - 07/23/2023 2:08 PM EDT Patient returned call and went over notes below from Dr Stauffer with understanding. * Telephone Encounter - Faiza Moreland Ma - 07/23/2023 11:27 AM EDT Message left [...] requests call back on home phone at [phone] today. Joslyn Turk RN documented in this encounterMansfield Hospital10-03-2023 Miscellaneous Notes* Addendum Note - Atul Harvey DO - 07/14/2023 4:58 PM EDTAddended by: ATUL HARVEY on: 07/14/2023 04:58 PM Modules accepted: Orders documented in this encounterMansfield Hospital10-03-2023 History of Present illness Narrative* Atul [...] this update. Next f/u appt 08/04/23 w/ EPOXY SPECIALIST. PLEASEHAVE YOUR STAFF REACH OUT TO THE PATIENT WITH FURTHER ORDERS/INSTRUCTIONS. Thank you, Mitesh Mccabe RN Angio Technologist Contacted for: Routine Telephonic Outreach Contact made with patient: Yes Patient identified by name and date of . Discussed care with patient Are you experiencing any new or worsening symptoms you need to talk about today? Yes Based on fire patrol, the following disposition is advised: No symptoms [...] 13, 2023 2:19 PM documented in this encounterMansfield Hospital09-14-2023 Miscellaneous Notes* Telephone Encounter - Faiza Moreland Ma - 06/25/2023 1:51 PM EDT Pt notified. Appt made 06/29/23 with Milana Armijo. Faiza Moreland Ma * Telephone Encounter - Milana Armijo APRN.CNP - 06/25/2023 1:21 PM EDT Should have BP check appointment in office. Milana Armijo APRN.FELICIA * Telephone Encounter - Camila Finley RN [...] she[facility] and [facility] was 148/69. Patient is [...] advise, Camila Finley RN documented in this encounterMansfield Hospital09-11-2023 Miscellaneous Notes* Telephone Encounter - Brooklyn [...] or allergy symptoms to the Amlodipine? Brooklyn Ying RN documented in this encounterMansfield Hospital09-01-2023 History of Present illness Narrative* Mitesh Mccabe RN - 06/12/2023 3:17 PM EDT CDM Telephonic Outreach Provider Action/FYI -chf, ckd No concerns, gets off the [...] daily weight at home? No Based on fire patrol, the following disposition is advised: No symptoms or symptoms present, not severe. Routed to: No Action Needed NALINI Education Provided this Outreach: No Mitesh Mccabe RN June 12, 2023 3:18 PM documented in this encounterMansfield Hospital08-08-2023 History of Present illness Narrative* Mitesh Mccabe RN - 05/19/2023 10:38 AM EDT [facility] Telephonic Outreach Provider Action/FYI -chf, ckd Contacted for: Routine Telephonic Outreach Contact made with patient: No, left message. Mitesh Mccabe RN May 19, 2023 10:39 AM * Mitesh Mccabe RN - 05/18/2023 1:21 PM EDT [facility] Telephonic Outreach Provider Action/FYI -chf, ckd Contacted for: Routine Telephonic Outreach Contact made with patient: No, left message. Mitesh Mccabe RN May 18, 2023 1:21 PM documented in this encounterMansfield Hospital07-07-2023 Miscellaneous Notes* Telephone Encounter - Velma [...] echocardiogram. Fatimah Manzano APRN.CNP documented in this encounterMansfield Hospital07-07-2023 Miscellaneous Notes* Result Encounter Note - Fatimah Manzano APRN.CNP - 04/17/2023 12:20 PM EDT Please call the patient and report echo results revealed normal LV Function, EF 55%. There were no significant structure or valvular abnormalities identified on echocardiogram. Fatimah Manzano APRN.CNP documented in this encounterMansfield Hospital07-03-2023 Instructions* Patient Instructions* Rasheed Barrios MD - 04/13/2023 9:36 AM EDT We are going to repeat an echocardiogram documented in this encounterMansfield Hospital07-03-2023 History of Present illness Narrative* Rasheed Barrios MD - 04/13/2023 9:20 AM EDT Images from the original note were not included. [facility] SE[facility]IONAL CARDIOLOGY Cardiology ([facility]) [address] [id number] OUTPATIENT VISIT DATE 04/13/2023 PRIMARY CARE PHYSICIAN: Atul Harvey [address] [place] [address] HISTORY OF PRESENT ILLNESS: Ms. Crane is [...] SYRINGE Rasheed Barrios MD documented in this encounterMansfield Hospital06-07-2023 Miscellaneous Notes* Telephone Encounter - Ellen [...] and advise. Kassy Hussein documented in this encounterMansfield Hospital06-07-2023 Instructions* Patient Instructions* Areli Tannhof, CENTRAL LAB TECHNICIAN.EPOXY SPECIALIST - 03/18/2023 1:42 PM EDT Start zpack, take as directed. Stay well hydrated. May continue to use over the counter cold an cough medications as needed. Follow up as needed. documented in this encounterMansfield Hospital06-07-2023 History of Present illness Narrative* Areli Duncan APRN.CNP - 03/18/2023 1:40 PM EDT This [...] supportive care at home - May use iknw-dgc-hwwafsd cold and cough medication as needed for symptom management. - AZITHROMYCIN 250 MG TABLET Follow-up as needed or sooner if symptoms get worse or do not improve. Discussed treatment plan and patient voices understanding. Patient's questions answered appropriately. Medications and potential side effects were discussed and patient voices understanding. Areli Duncan APRN.FELICIA This note was partially generated using [employer] voice recognition system. Note was reviewed for accuracy. There may be minor misspellings or grammar miscues with [employer] voice recognition. documented in this encounterMansfield Hospital06-07-2023 Miscellaneous Notes* Telephone Encounter - Natasha [...] noted. pt is asking for a refillfor carlos morrell. Please advise. Natasha Gonzalez LPN documented in this encounterMansfield Hospital06-05-2023 History of Present illness Narrative* Mitesh Mccabe RN - 03/16/2023 2:03 PM EDT [facility] Telephonic Outreach Provider Action/FYI -chf, ckd [...] daily weight at home? No Based on fire patrol, the following disposition is advised: No symptoms or symptoms present, not severe. Routed to: No Action Needed NALINI Education Provided this Outreach: No Mitesh Mccabe RN March 16, 2023 2:06 PM documented in this encounterMansfield Hospital05-15-2023 Miscellaneous Notes* Telephone Encounter - Areli Duncan APRN.CNP - 02/23/2023 9:56 AM EDT The following approved medication requests have been transmitted electronically. Requested Prescriptions Pending Prescriptions Disp Refills losartan (COZAAR) 100 mg tablet 90 tablet 3 Sig: Take 1 tablet by mouth once daily. Areli Duncan APRN.FELICIA * Telephone Encounter - Ellen Christopher LPN [...] patient. Caryn Jackson Pss documented in this encounterMansfield Hospital04-26-2023 History of Present illness Narrative* Atul Harvey DO - 02/04/2023 7:26 AM EDT CC: [...] 5.5 4.3 - 5.6 % Final Comment: [place] [employer] guidelines indicate that patients with HgbA1c in the range 5.7-6.4% are at increased risk for development of diabetes, and intervention by lifestyle modification may be beneficial. HgbA1c greater or equal to 6.5% is considered diagnostic of diabetes. 07/01/2022 5.6 4.3 - 5.6 % Final Comment: [place] [employer] guidelines indicate that patients with HgbA1c in the range 5.7-6.4% are at increased risk for development of diabetes, and intervention by lifestyle modification may be beneficial. HgbA1c greater or equal to 6.5% is considered diagnostic of diabetes. 03/27/2022 5.7 (H) 4.3 - 5.6 % Final Comment: [place] [employer] guidelines indicate that patients with HgbA1c in the range 5.7-6.4% are at increased risk for development of diabetes, and intervention by lifestyle modification may be beneficial. HgbA1c greater or equal to 6.5% is considered diagnostic of diabetes. 01/29/2021 5.5 4.3 - 5.6 % Final Comment: [place] [employer] guidelines indicate that patients with HgbA1c in the range 5.7-6.4% are at increased risk for development of diabetes, and intervention by lifestyle modification may be beneficial. HgbA1c greater or equal to 6.5% is considered diagnostic of diabetes. 06/29/2017 5.4 4.3 - 5.6 % Final RA, seen by [facility] for care, taking Otezla as prescribed Rash, arms and back, itching and red, was using dryer sheets and has stopped doing this. Is using cream as needed HTN, well controlled, taking medications as prescribed. Sees Welding Operator routinely, Only occasional palpitations and heart racing [...] plan. See patient instructions. Atul Harvey DO [address] [place] [address] documented in this encounterMansfield Hospital04-24-2023 Instructions* Patient Instructions* Atul Harvey DO - 02/02/2023 10:22 AM EDT Take a deep breath and hold it Or Drink glass of cold water Or Bear down and hold like you are having a bowel movement When your heart races documented in this encounterMansfield Hospital03-27-2023 Miscellaneous Notes* Telephone Encounter - Christel [...] you. Christel Wagner RN documented in this encounterMansfield Hospital03-20-2023 Miscellaneous Notes* Telephone Encounter - Ellen [...] notify patient. Gabbi Carbajal documented in this encounterMansfield Hospital03-13-2023 History of Present illness Narrative* Katja [...] like to speak with a social work merchandise flow team leader to help give you support [...] you up for automated weekly questionnaires through [employer]. This is an easy way for us [...] PtOutreach and End outreach. documented in this encounterMansfield Hospital02-22-2023 Miscellaneous Notes* Telephone Encounter - Lori Josue LPN - 12/03/2022 10:27 AM EST Patient phones requesting refills as follows: Requested Prescriptions Pending Prescriptions Disp Refills rosuvastatin (CRESTOR) 10 mg tablet [Pharmacy Med Name: ROSUVASTATIN CALCIUM 10 MG TAB] 30 tablet 2 Sig: TAKE 1 TABLET BY MOUTH EVERY DAY CECILIO-09/16/22 Labs-11/14/21 NOV-02/02/23 med filled 10/08/22 Please review and advise. Lori Josue LPN documented in this encounterMansfield Hospital02-17-2023 History of Present illness Narrative* Katja [...] like to speak with a social work merchandise flow team leader to help give you support [...] you up for automated weekly questionnaires through [employer]. This is an easy way for us [...] PtOutreach and End outreach. documented in this encounterMansfield Hospital01-25-2023 History of Present illness Narrative* Katja [...] like to speak with a social work merchandise flow team leader to help give you support [...] you up for automated weekly questionnaires through [employer]. This is an easy way for us [...] PtOutreach and End outreach. documented in this encounterMansfield Hospital01-17-2023 Miscellaneous Notes* Telephone Encounter - Rabia [...] patient. Rabia Goldberg Pss documented in this encounterMansfield Hospital01-11-2023 Miscellaneous Notes* Telephone Encounter - Sobeida Matos LPN - 10/22/2022 12:00 PM EST Electronic PA completed for lansoprazole (PREVACID) 30 mg capsule qty of 180. This was approved from 10/12/22 to 10/11/2023 documented in this encounterMansfield Hospital01-06-2023 Miscellaneous Notes* Telephone Encounter - Luci [...] Goldberg LPN - 10/15/2022 9:45 AM EST [facility] called and reports pt's insurance will only cover Lansoprazole 30 mg 1 per day. Please advise pharmacy on either changing medication or doing a PA. PA information if needed: PRIOR AUTHORIZATION Medication for Prior Authorization: Lansoprazole 30 mg Insurance Company: Medicare Part D Insurance Company phone number: [phone] Patient insurance ID number: [id number] [facility] # [id number] N # [id number] RX group: [id number] Elizabeth Goldberg LPN documented in this encounterMansfield Hospital01-05-2023 History of Present illness Narrative* Katja Lo RN - 10/16/2022 11:33 AM EST INSIGHT CDM TELEPHONIC OUTREACH Provider Action/FYI: Contact made with patient: No - Left message Jose Alberto my name is Katja Lo RN your Open Claims Representative [facility] the [facility] I am calling today for your [...] Lo RN - 10/15/2022 1:30 PM EST INSIGHT CD TELEPHONIC OUTREACH Provider Action/FYI: Contact made with patient: No - Left message Jose Alberto my name is Katja Lo RN your Open Claims Representative [facility] the [facility] I am calling today for your bi-weekly check in. I am sorry I missed your call. I will reach out to you again tomorrow. (if the third call I will reach out to you again next week) Enter next patient outreach date for the following business day using the Track Pt Outreach. End outreach. documented in this encounterMansfield Hospital12-28-2022 Miscellaneous Notes* Telephone Encounter - Milana [...] to try 30 day rx, she uses [facility] for her pharmacy. Pending rx needs number of refills completed. * Telephone Encounter - Tim Yip LPN - 10/08/2022 10:14 AM EST Left message to return call to office. Tim Yip LPN * Telephone Encounter - Mary Anam CARMICHALE - 10/07/2022 9:58 AM EST Message left to return call. * Telephone Encounter - Atul Harvey DO - 10/07/2022 7:40 AM EST Please inform patient that her RUQ US showed fatty liver changes. Would recommend low cholesterol diet and consideration of starting on low dose Crestor 10 mg (cholesterol medication). Atul Harvey DO documented in this encounterMansfield Hospital12-28-2022 Instructions* Patient Instructions* Christel Núñez PA-C - 10/08/2022 10:41 AM EST The following instructions are important for you related to your office visit today with the [facility] Surgeons. INSTRUCTIONS FOLLOWING A POLYP [...] you should contact our office immediately @ [phone] and ask to be transferred to the General Surgery department. documented in this encounterMansfield Hospital12-28-2022 History of Present illness Narrative* Christel Núñez PA-C - 10/08/2022 10:37 AM EST FOLLOW UP VISIT - [id number] DATE OF SERVICE: 10/08/2022 : 1940 REFERRING PHYSICIAN: Atul Harvey DO Mary is a patient I am following for [...] (97.6 F), height 160 cm (5' 3), hlladf91.1 kg (163 lb 6.4 oz), SpO2 97 [...] recommend follow up endoscopy in 3 years. HM updated and recall letter generated. Patient verbalized understanding of all above and agreed with the plan Diagnoses: (Z86.010) History of colonic polyps (primary encounter diagnosis) (D36.9) Tubular adenoma I spent a total of 21 minutes on the date of the service which included preparing to see the patient, uuqg-nq-xmov patient care, completing clinical documentation, obtaining and/or reviewing separately obtained history, counseling and educating the patient/family/caregiver, independently interpretin g results (not separately reported), and communicating results to the patient/family/caregiver. Christel Núñez PA-C documented in this encounterMansfield Hospital12-21-2022 History of Present illness Narrative* Velma [...] 01, 2022 10:38 AM documented in this encounterMansfield Hospital12-20-2022 Nurse Note* Monika Xiong RN - [...] recommendations. Monika Xiong RN documented in this encounterMansfield Hospital12-20-2022 History and physical note * Preet [...] entered by the nurse and reviewed by wa Nursing Notes: Danii Us LPN 08/06/2022 1:40 PM Signed REVIEW OF SYSTEMS: [...] patient was offered a [facility]. I have counseled the patient [...] date of 09/30/[address] Daly in [facility] Diagnoses: (Z12.11) Encounter for screening for malignant [...] entered by the nurse and reviewed by wa Nursing Notes: Danii Us LPN 08/06/2022 1:40 PM Signed REVIEW OF SYSTEMS: [...] patient was offered a surgery/procedure at [facility]. I have counseled the patient [...] date of 09/30/[address] Daly in [facility] Diagnoses: (Z12.11) Encounter for screening for malignant neoplasm of colon (primary encounter diagnosis) (Z86.010) History of colonic polyps Consultation requested by Dr. Harvey for an opinion regarding colonoscopy. My final recommendations will be communicated back to the requesting physician by way of shared Medical record or letter to requesting physician via US mail. Christel Núñez PA-C documented in this encounterMansfield Hospital12-15-2022 Miscellaneous Notes* Telephone Encounter - AROLDO Aragon - 09/25/2022 8:42 AM EST TC to patient who verbalizes understanding of providers message and is agreeable to ultrasound. Pt is requesting that to schedule, her daughter Noemy be contacted as she takes pt to all of her appointments. Her phone number is [phone]. Please call Noemy and assist in scheduling US for patient. Thank you. AROLDO Aragon * Telephone Encounter - Atul Harvey DO - 09/24/2022 9:44 PM EST Please inform patient that overall her labs are stable except for elevated alkaline phosphatase. I would like her to have a RUQ ultrasound to further assess this elevation Atul Harvey DO documented in this encounterMansfield Hospital12-13-2022 History of Present illness Narrative* Katja Lo RN - 09/23/2022 1:00 PM EST [facility] TELEPHONIC OUTREACH Provider Action/FYI: Contact made with patient: No - Left message Jose Alberto my name is Katja Lo RN your Open Claims Representative from the [facility] I am calling today for your [...] Lo RN - 09/22/2022 1:18 PM EST INSIGHT [facility] TELEPHONIC OUTREACH Provider Action/FYI: Contact made with patient: No - Left message Jose Alberto my name is Katja Lo RN your Open Claims Representative from the [facility] I am calling today for your bi-weekly check in. I am sorry I missed your call. I will reach out to you again tomorrow. (if the third call I will reach out to you again next week) Enter next patient outreach date for the following business day using the Track Pt Outreach. End outreach. documented in this encounterMansfield Hospital12-06-2022 History of Present illness Narrative* Atul Harvey, DO - 09/16/2022 9:20 AM EST CC: [...] Is scheduledfor Sep 30 RA, seen by [facility] for care, taking Otezla as prescribed Rash, arms and back, itching and red, was using dryer sheets and has stopped doing this HTN, well controlled, taking medications as prescribed. Sees Welding Operator upcoming on 09/29. Only occasional palpitations and [...] See patient instructions. Atul Harvey DO [address] [place] [address] documented in this encounterMansfield Hospital11-21-2022 Miscellaneous Notes* Telephone Encounter - Lori Josue [...] advise. Lori Josue LPN documented in this encounterMansfield Hospital11-16-2022 History of Present illness Narrative* Katja [...] like to speak with a social work merchandise flow team leader to help give you support [...] you up for automated weekly questionnaires through [employer]. This is an easy way for us [...] PtOutreach and End outreach. documented in this encounterMansfield Hospital11-11-2022 History of Present illness Narrative* Katja Lo RN - 08/22/2022 11:49 AM EST INSIGHT CDM TELEPHONIC OUTREACH Provider Action/FYI: Contact made with patient: No - Left message Hello my name is Katja Lo RN your Open Claims Representative [facility] the [facility] I am calling today for your bi-weekly check in. I am sorry I missed your call. I will reach out to you again tomorrow. (if the third call I will reach out to you again next week) Enter next patient outreach date for the following using the Track Pt Outreach. End outreach. documented in this encounterMansfield Hospital10-26-2022 History of Present illness Narrative* Christel [...] WHEN PFRMD 07/28/16 Colonoscopy ESOPHAGOGASTRODUODENOSCOPY TRANSORAL DIAGNOSTIC 3/12/15 EGD LAPAROSCOPY SURG CHOLECYSTECTOMY 02/20/15 NEUROPLASTY &/TRANSPOS [...] entered by the nurse and reviewed by wa Nursing Notes: Danii Us LPN 08/06/2022 1:40 PM Signed REVIEW OF SYSTEMS: [...] patient was offered a surgery/procedure at a [facility]. I have counseled the patient regarding the [...] date of 09/30/[address] Daly in [facility] Diagnoses: (Z12.11) Encounter for screening for malignant neoplasm of colon (primary encounter diagnosis) (Z86.010) History of colonic polyps Consultation requested by Dr. Harvey for an opinion regarding colonoscopy. My final recommendations will be communicated back to the requesting physician by way of shared Medical record or letter to requesting physician via US mail. Christel Núñez PA-C documented in this encounterMansfield Hospital10-26-2022 Nurse Note* Danii Us ROTOPRINTER - 08/06/2022 1:38 PM EDT REVIEW OF [...] 2015 Danii Us LPN documented in this encounterMansfield Hospital10-20-2022 History of Present illness Narrative* Katja [...] like to speak with a social work merchandise flow team leader to help give you support [...] you up for automated weekly questionnaires through [employer]. This is an easy way for us [...] PtOutreach and End outreach. documented in this encounterMansfield Hospital10-07-2022 Miscellaneous Notes* Telephone Encounter - Faiza [...] concerns. Catalina Jauregui APRN.CNP documented in this encounterMansfield Hospital10-06-2022 Miscellaneous Notes* Letter - Mammography Coordinator - 07/17/2022 11:49 AM EDT July 17, 2022 PID: [id number] Mary Crane [address] [place] [address] Dear Ms. Crane, We are pleased to [...] report will be [facility] as part of your permanent medical record and are available for your continuing care. Thank you for allowing us to help in meeting your health care needs. Sincerely, Dr. Nunes Interpreting Radiologist [facility] (Normal over 40) documented in this encounterMansfield Hospital10-06-2022 History of Present illness Narrative* RT [...] 17, 2022 11:51 AM documented in this encounterMansfield Hospital10-03-2022 Miscellaneous Notes* Telephone Encounter - Milana Vegas APRN.CNP - 07/14/2022 8:32 AM EDT Noted. Thank you. Milana Vegas APRN.CNP * Telephone Encounter - Lulú Moran Ma - 07/11/2022 4:27 PM EDT [facility] reports she picked up Golytely today. Pharmacy didn't receive any other rx. Lulú Moran Ma * Telephone Encounter - Milana Vegas APRN.CNP - 07/11/2022 2:22 PM EDT I have sent this over (like 4 times) but its not popping up in medication list. Can you call [facility] and see if they got it. Thank you, Milana Vegas APRN.CNP * Telephone Encounter - Nancy Mccann RN - 07/11/2022 1:47 PM EDT Patient reports she is having an upcoming colonoscopy and states she discussed the prep that she wanted ordered by Dr. Harvey at last OV. She reports she went to picker/puller the ordered prep and she states it is not the right one. She got the big gallon one and doesn't want to use that strong stuff. She wants the gatorade one. Uses [facility]. Please advise patient. Thank you. documented in this encounterMansfield Hospital09-30-2022 Instructions* Patient Instructions* Milana Vegas APRN.CNP [...] If you do not have a responsible drop hammer pile driver operator (family member or friend) withyou to take you home, your exam cannot be done with sedation and will be cancelled. Please bring a list of all of your current medications, including any Kzmt-odo-Saftxup medications with you. Medications If you take [...] If you do not have a responsible drop hammer pile driver operator (family member or friend) withyou to take you home, your exam cannot be done with sedation and will be cancelled. Please bring a list of all of your current medications, including any Yisa-nui-Yniqves medications with you. Medications If you take [...] If you do not have a responsible drop hammer pile driver operator (family member or friend) withyou to take you home, your exam cannot be done with sedation and will be cancelled. Please bring a list of all of your current medications, including any Lsdp-rdh-Gnrysiv medications with you. Medications If you take [...] your exam. 2 09/2019 documented in this encounterMansfield Hospital09-28-2022 History of Present illness Narrative* Atul Harvey DO - 07/09/2022 7:04 AM EDT CC: Mary [...] 5.6 4.3 - 5.6 % Final Comment: [place] [employer] guidelines indicate that patients with HgbA1c in the range 5.7-6.4% are at increased risk for development of diabetes, and intervention by lifestyle modification may be beneficial. HgbA1c greater or equal to 6.5% is considered diagnostic of diabetes. 03/27/2022 5.7 (H) 4.3 - 5.6 % Final Comment: [place] [employer] guidelines indicate that patients with HgbA1c in the range 5.7-6.4% are at increased risk for development of diabetes, and intervention by lifestyle modification may be beneficial. HgbA1c greater or equal to 6.5% is considered diagnostic of diabetes. 01/29/2021 5.5 4.3 - 5.6 % Final Comment: [place] [employer] guidelines indicate that patients with [...] is interested in mammogram. RA, seen by [facility] for care, taking Otezla HTN, well controlled, taking medications as prescribed. Sees Welding Operator upcoming. Only occasionalpalpitation, no chest pressure or [...] with supplements or by diet (goal of 2709-9509 mg/day - Colon cancer screening reviewed and colonoscopy recommended - Follow up for annual exam in one year. - WILLI SCREENING 5. Alkaline phosphatase elevation - ICD9: 790.5, ICD10: R74.8 - recheck labs in 3 months, consider bone scan in the future, no new symptoms. Needs to discuss these with [facility]- unsure if Otezla could be contributing to [...] - ICD9: 714.0, ICD10: M05.79 F/u with [facility]. 11. Stage 3b chronic kidney disease (HCC) [...] if no improvement. Follow up with Atul Harevy DO. To ER if develops chest pain, shortness of breath Discussed risks, benefits, alternatives, and potential side effects of medications. Patient/Guardian expressed understanding and agreed with the plan. See patient instructions. Atul Harvey DO [address] [place] [address] documented [facility] History of Present illness Narrative* Katja [...] like to speak with a social work merchandise flow team leader to help give you support [...] you up for automated weekly questionnaires through [employer]. This is an easy way for us [...] PtOutreach and End outreach. documented in this encounterM[facility]08-29-[facility]22 Miscellaneous Notes* Telephone Encounter - Preeti [...] patient. Caryn Jackson Pss documented in this encounterM[facility]08-25-2022 History of Present illness Narrative* Katja Lo RN - 06/05/2022 11:04 AM EDT [facility] TELEPHONIC OUTREACH Provider Action/FYI: Contact made with patient: No - Left message Hello my name is Katja Lo RN your Open Claims Representative [facility] the [facility] I am calling today for your [...] RN - 06/04/2022 2:36 PM EDT [facility] TELEPHONIC OUTREACH Provider Action/FYI: Contact made with patient: No - Left message Helai my name is Katja Lo RN your Open Claims Representative from the [facility] I am calling today for your bi-weekly check in. I am sorry I missed your call. I will reach out to you again tomorrow. (if the third call I will reach out to you again next week) Enter next patient outreach date for the following business day using the Track Pt Outreach. End outreach. documented in this encounterM[facility]07-27-2022 Miscellaneous Notes* Telephone Encounter - Lori Josue LPN - 05/07/2022 8:36 AM EDT Patient phones requesting refills as follows: Pending Prescriptions Disp Refills LANSOPRAZOLE 30 MG CAPSULE,DELAYED RELEASE 180 capsule 1 Sig: TAKE 1 CAPSULE BY MOUTH TWICE DAILY. 1/2 HOUR BEFORE MEALS. MIL: Yes CECILIO-04/01/22 Labs-03/27/22 NOV-07/08/22 med filled 11/11/21 Please review and advise. Lori Josue LPN documented in this encounterM[facility]07-15-2022 History of Present illness Narrative* Katja Lo RN - 04/25/2022 12:50 PM EDT [facility] TELEPHONIC OUTREACH Provider Action/FYI: Contact made with patient: No - Unable to leave message Entered next patient outreach date for the following business day, if third call please enter next outreach date for one week in the Track Pt. Outreach - End Outreach documented in this encounterM[facility]06-30-[facility]22 History of Present illness Narrative* Katja [...] like to speak with a social work merchandise flow team leader to help give you support [...] you up for automated weekly questionnaires through [employer]. This is an easy way for us [...] PtOutreach and End outreach. documented in this encounterM[facility]06-29-2022 Miscellaneous Notes* Telephone Encounter - Ellen [...] Encounter - Milana Vegas APRN.CNP - 04/09/2022 9:18 AM EDT Please instruct [...] to please advise patient. documented in this encounterM[facility] Hospital06-24-2022 Miscellaneous Notes* Telephone Encounter - Lulú [...] daily for 5 days. Authorizing Provider: MILANA VEGAS, CENTRAL LAB TECHNICIAN.EPOXY SPECIALIST * Telephone Encounter - Lulú Moran Ma [...] keflex Atul Harvey DO documented in this encounterMans[facility] Hospital06-22-2022 Miscellaneous Notes* Telephone Encounter - Brooklyn [...] you. Brooklyn Ying RN documented in this encounterM[facility] Hospital06-20-2022 Miscellaneous Notes* Telephone Encounter - Mary [...] walking. Atul Harvey DO documented in this encounterM[facility]06-10-2022 History of Present illness Narrative* Katja [...] like to speak with a social work merchandise flow team leader to help give you support [...] you up for automated weekly questionnaires through [employer]. This is an easy way for us [...] my name is Katja Lo RN your Open Claims Representative from the [facility] I am calling today for your bi-weekly check in. I am sorry I missed your call. I will reach out to you again tomorrow. (if the third call I will reach out to you again next week) Enter next patient outreach date for the following day using the Track Pt Outreach. End outreach. documented in this encounterM[facility] Hospital05-31-2022 Miscellaneous Notes* Telephone Encounter - Camila [...] you. Camila Finley RN documented in this encounterM[facility] Hospital05-26-2022 History of Present illness Narrative* Katja [...] like to speak with a social work merchandise flow team leader to help give you support [...] you up for automated weekly questionnaires through [employer]. This is an easy way for us [...] PtOutreach and End outreach. documented in this encounterM[facility]04-28-2022 History of Present illness Narrative* Danielle Hagen RN - 02/06/2022 8:35 AM EDT [facility] CDM Enrollment Provider Action/FYI: h/o CHF Pt agreed to CDM Insight Program-Telephonic once a month Goal,ADL and Fall Risk assessment Completed Patient referred by: [facility] Marylou Contact made with patient: Yes - Patient identified by name and . Discussed care with patient Jose Alberto this is Danielle Hagen RN and I am calling from Atul Harvey DO office at the [facility]. I am a RN Open Claims Representative with our [facility] Disease Management program. [...] few questions once a week through your [employer] account. It will automatically show up for you to complete. There are simple questions that will help us identify if you have any concerns or symptoms and I will call you to help get what you need. We will be able to connect you, review your symptoms, do an on demand visit, or communicate with Atul Harvey DO if needed. I am going to [...] from today s date) documented in this encounterM[facility] Hospital04-07-2022 Miscellaneous Notes* Telephone Encounter - Elizabeth [...] you. Elizabeth Goldberg LPN documented in this encounterM[facility] Hospital12-22-2021 Miscellaneous Notes* Telephone Encounter - Lori Josue LPN - 10/02/2021 9:14 AM EST Patient notified of results, verbalizes understanding of instructions. Lori Josue LPN * Telephone Encounter - Maria E Brewster APRN.CNP - 10/02/2021 7:49 AM EST Please notify Negative for covid. Thank you documented in this encounterMansfield Hospital12-20-2021 Miscellaneous Notes* Telephone Encounter - Lulú Moran Ma - 09/30/2021 3:49 PM EST Pt notified and verbalized understanding Lulú Moran Ma * Telephone Encounter - Catalina Jauregui APRN.CNP - 09/30/2021 3:10 PM EST She needs to be seen by a provider or be seen in urgent care. Catalinaberta Jauregui APRN.CNP * Telephone Encounter - Kimi Wyatt RN - 09/27/2021 4:17 PM EST Patient phoned asking pcp to prescribe zpak for her sinus infection ([facility]). Advised patient she would need an appt. Patient stated she did not need an appt as [facility]. Patient argued the situation [...] are fine. Please advise. documented in this encounterM[facility] Hospital04-20-2021 History of Present illness Narrative* Janay [...] 29, 2021 9:27 AM documented in this encounterM[facility] Hospital03-19-2019 History of Past illness Narrative* Problem [...] of this encounter (statuses as of 01/16/2022) [facility] Narrative* Problem [...] 12/18/2010 05/29/2016 Sialoadenitis 09/04/2008 02/24/2020 Overview: 09/04/2008- [facility], Tank Sloan MD- left submandibular sialoadenitis secondary to stone formation. Follow-up examination, following unspecified joel israel 02/26/2006 02/08/2015 Carpal tunnel syndrome 10/17/2005 6 Other tenosynovitis of hand and wrist 10/17/2005 02/24/2020 Benign neoplasm of colon 09/30/2005 020 Internal hemorrhoids without mention of complica tion 09/30/2005 02/24/2020 HYPERTENSION NOS 05/30/2014 Sicca syndrome 11/29/2021 documented as of this encounter (statuses as of 02/06/2022) [facility] N[facility]ative* Problem [...] of this encounter (statuses as of 03/06/2022) [facility]* Problem [...] of this encounter (statuses as of 03/11/2022) [facility]* Problem [...] 12/18/2010 05/29/2016 Sialoadenitis 09/04/2008 02/24/2020 Overview: 09/04/2008- [facility], Tank Sloan MD- left submandibular sialoadenitis secondary to stone formation. Follow-up examination, following unspecified joel israel 02/26/2006 02/08/2015 Carpal tunnel syndrome 10/17/2005 6 Other tenosynovitis of hand and wrist 10/17/2005 02/24/2020 Benign neoplasm of colon 09/30/2005 020 Internal hemorrhoids without mention of complica tion 09/30/2005 02/24/2020 HYPERTENSION NOS 05/30/2014 Sicca syndrome 11/29/2021 documented as of this encounter (statuses as of 03/12/2022) [facility] Problem [...] of this encounter (statuses as of 03/21/2022) [facility]* Problem [...] of this encounter (statuses as of 03/31/2022) [facility]* Problem [...] 12/18/2010 05/29/2016 Sialoadenitis 09/04/2008 02/24/2020 Overview: 09/04/2008- [facility], Tank Sloan MD- left submandibular sialoadenitis secondary to stone formation. Follow-up examination, following unspecified joel israel 02/26/2006 02/08/2015 Carpal tunnel syndrome 10/17/2005 6 Other tenosynovitis of hand and wrist 10/17/2005 02/24/2020 Benign neoplasm of colon 09/30/2005 020 Internal hemorrhoids without mention of complica tion 09/30/2005 02/24/2020 HYPERTENSION NOS 05/30/2014 Sicca syndrome 11/29/2021 documented as of this encounter (statuses as of 04/02/2022) [facility] Problem [...] of this encounter (statuses as of 04/04/2022) [facility] Problem [...] of this encounter (statuses as of 04/09/2022) [facility] Problem [...] of this encounter (statuses as of 04/10/2022) [facility] Problem [...] 12/18/2010 05/29/2016 Sialoadenitis 09/04/2008 02/24/2020 Overview: 09/04/2008- [facility], Tank Sloan MD- left submandibular sialoadenitis secondary to stone formation. Follow-up examination, following unspecified joel israel 02/26/2006 02/08/2015 Carpal tunnel syndrome 10/17/2005 6 Other tenosynovitis of hand and wrist 10/17/2005 02/24/2020 Benign neoplasm of colon 09/30/2005 020 Internal hemorrhoids without mention of complica tion 09/30/2005 02/24/2020 HYPERTENSION NOS 05/30/2014 Sicca syndrome 11/29/2021 documented as of this encounter (statuses as of 04/25/2022) [facility] Problem [...] 12/18/2010 05/29/2016 Sialoadenitis 09/04/2008 02/24/2020 Overview: 09/04/2008- [facility], Tank Sloan MD- left submandibular sialoadenitis secondary to stone formation. Follow-up examination, following unspecified joel israel 02/26/2006 02/08/2015 Carpal tunnel syndrome 10/17/2005 6 Other tenosynovitis of hand and wrist 10/17/2005 02/24/2020 Benign neoplasm of colon 09/30/2005 020 Internal hemorrhoids without mention of complica tion 09/30/2005 02/24/2020 HYPERTENSION NOS 05/30/2014 Sicca syndrome 11/29/2021 documented as of this encounter (statuses as of 04/26/2022) [facility] Problem [...] of this encounter (statuses as of 05/07/2022) [facility] Problem [...] 12/18/2010 05/29/2016 Sialoadenitis 09/04/2008 02/24/2020 Overview: 09/04/2008- [facility], Tank Sloan MD- left submandibular sialoadenitis secondary to stone formation. Follow-up examination, following unspecified joel israel 02/26/2006 02/08/2015 Carpal tunnel syndrome 10/17/2005 6 Other tenosynovitis of hand and wrist 10/17/2005 02/24/2020 Benign neoplasm of colon 09/30/2005 020 Internal hemorrhoids without mention of complica tion 09/30/2005 02/24/2020 HYPERTENSION NOS 05/30/2014 Sicca syndrome 11/29/2021 documented as of this encounter (statuses as of 06/05/2022) [facility] Problem [...] 12/18/2010 05/29/2016 Sialoadenitis 09/04/2008 02/24/2020 Overview: 09/04/2008- [facility], Tank Sloan MD- left submandibular sialoadenitis secondary to stone formation. Follow-up examination, following unspecified joel israel 02/26/2006 02/08/2015 Carpal tunnel syndrome 10/17/2005 6 Other tenosynovitis of hand and wrist 10/17/2005 02/24/2020 Benign neoplasm of colon 09/30/2005 020 Internal hemorrhoids without mention of complica tion 09/30/2005 02/24/2020 HYPERTENSION NOS 05/30/2014 Sicca syndrome 11/29/2021 documented as of this encounter (statuses as of 06/09/2022) [facility] Problem [...] 12/18/2010 05/29/2016 Sialoadenitis 09/04/2008 02/24/2020 Overview: 09/04/2008- [facility], Tank Sloan MD- left submandibular sialoadenitis secondary to stone formation. Follow-up examination, following unspecified joel israel 02/26/2006 02/08/2015 Carpal tunnel syndrome 10/17/2005 6 Other tenosynovitis of hand and wrist 10/17/2005 02/24/2020 Benign neoplasm of colon 09/30/2005 020 Internal hemorrhoids without mention of complica tion 09/30/2005 02/24/2020 HYPERTENSION NOS 05/30/2014 Sicca syndrome 11/29/2021 documented as of this encounter (statuses as of 07/04/2022) [facility] Problem [...] of this encounter (statuses as of 07/09/2022) [facility] Problem [...] 12/18/2010 05/29/2016 Sialoadenitis 09/04/2008 02/24/2020 Overview: 09/04/2008- [facility], Tank Sloan MD- left submandibular sialoadenitis secondary to stone formation. Follow-up examination, following unspecified joel israel 02/26/2006 02/08/2015 Carpal tunnel syndrome 10/17/2005 6 Other tenosynovitis of hand and wrist 10/17/2005 02/24/2020 Benign neoplasm of colon 09/30/2005 020 Internal hemorrhoids without mention of complica tion 09/30/2005 02/24/2020 HYPERTENSION NOS 05/30/2014 Sicca syndrome 11/29/2021 documented as of this encounter (statuses as of 07/14/2022) [facility] Problem [...] 12/18/2010 05/29/2016 Sialoadenitis 09/04/2008 02/24/2020 Overview: 09/04/2008- [facility], Tank Sloan MD- left submandibular sialoadenitis secondary to stone formation. Follow-up examination, following unspecified joel israel 02/26/2006 02/08/2015 Carpal tunnel syndrome 10/17/2005 6 Other tenosynovitis of hand and wrist 10/17/2005 02/24/2020 Benign neoplasm of colon 09/30/2005 020 Internal hemorrhoids without mention of complica tion 09/30/2005 02/24/2020 HYPERTENSION NOS 05/30/2014 Sicca syndrome 11/29/2021 documented as of this encounter (statuses as of 07/18/2022) [facility] Problem [...] of this encounter (statuses as of 07/18/2022) [facility] Problem [...] of this encounter (statuses as of 07/19/2022) [facility] Problem [...] of this encounter (statuses as of 07/31/2022) [facility] Problem [...] 12/18/2010 05/29/2016 Sialoadenitis 09/04/2008 02/24/2020 Overview: 09/04/2008- [facility], Tank Sloan MD- left submandibular sialoadenitis secondary to stone formation. Follow-up examination, following unspecified joel israel 02/26/2006 02/08/2015 Carpal tunnel syndrome 10/17/2005 6 Other tenosynovitis of hand and wrist 10/17/2005 02/24/2020 Benign neoplasm of colon 09/30/2005 020 Internal hemorrhoids without mention of complica tion 09/30/2005 02/24/2020 HYPERTENSION NOS 05/30/2014 Sicca syndrome 11/29/2021 documented as of this encounter (statuses as of 08/06/2022) [facility] Problem [...] of this encounter (statuses as of 08/22/2022) [facility] Problem [...] of this encounter (statuses as of 08/27/2022) [facility] Problem [...] of this encounter (statuses as of 09/01/2022) [facility] Problem [...] of this encounter (statuses as of 09/16/2022) [facility] Problem [...] of this encounter (statuses as of 09/23/2022) [facility] Problem [...] of this encounter (statuses as of 10/16/2022) [facility] Problem [...] of this encounter (statuses as of 10/17/2022) [facility] Problem [...] of this encounter (statuses as of 10/18/2022) [facility] Problem [...] of this encounter (statuses as of 10/22/2022) [facility] Problem [...] 12/18/2010 05/29/2016 Sialoadenitis 09/04/2008 02/24/2020 Overview: 09/04/2008- [facility], Tank Sloan MD- left submandibular sialoadenitis secondary to stone formation. Follow-up examination, following unspecified joel israel 02/26/2006 02/08/2015 Carpal tunnel syndrome 10/17/2005 6 Other tenosynovitis of hand and wrist 10/17/2005 02/24/2020 Benign neoplasm of colon 09/30/2005 020 Internal hemorrhoids without mention of complica tion 09/30/2005 02/24/2020 HYPERTENSION NOS 05/30/2014 Sicca syndrome 11/29/2021 documented as of this encounter (statuses as of 10/29/2022) [facility] Problem [...] of this encounter (statuses as of 11/05/2022) [facility] Problem [...] of this encounter (statuses as of 11/06/2022) [facility] Problem [...] 12/18/2010 05/29/2016 Sialoadenitis 09/04/2008 02/24/2020 Overview: 09/04/2008- [facility], Tank Sloan MD- left submandibular sialoadenitis secondary to stone formation. Follow-up examination, following unspecified joel israel 02/26/2006 02/08/2015 Carpal tunnel syndrome 10/17/2005 6 Other tenosynovitis of hand and wrist 10/17/2005 02/24/2020 Benign neoplasm of colon 09/30/2005 020 Internal hemorrhoids without mention of complica tion 09/30/2005 02/24/2020 HYPERTENSION NOS 05/30/2014 Sicca syndrome 11/29/2021 documented as of this encounter (statuses as of 11/28/2022) [facility] Problem [...] 12/18/2010 05/29/2016 Sialoadenitis 09/04/2008 02/24/2020 Overview: 09/04/2008- [facility], Tank Sloan MD- left submandibular sialoadenitis secondary to stone formation. Follow-up examination, following unspecified joel israel 02/26/2006 02/08/2015 Carpal tunnel syndrome 10/17/2005 6 Other tenosynovitis of hand and wrist 10/17/2005 02/24/2020 Benign neoplasm of colon 09/30/2005 020 Internal hemorrhoids without mention of complica tion 09/30/2005 02/24/2020 HYPERTENSION NOS 05/30/2014 Sicca syndrome 11/29/2021 documented as of this encounter (statuses as of 12/03/2022) [facility] Problem [...] of this encounter (statuses as of 12/14/2022) [facility] Problem [...] of this encounter (statuses as of 12/14/2022) [facility] Problem [...] of this encounter (statuses as of 12/22/2022) [facility] Problem [...] 12/18/2010 05/29/2016 Sialoadenitis 09/04/2008 02/24/2020 Overview: 09/04/2008- [facility], Tank Sloan MD- left submandibular sialoadenitis secondary to stone formation. Follow-up examination, following unspecified joel israel 02/26/2006 02/08/2015 Carpal tunnel syndrome 10/17/2005 06/200 6 Other tenosynovitis of hand and wrist 10/17/2005 02/24/2020 Benign neoplasm of colon 09/30/2005 020 Internal hemorrhoids without mention of complica tion 09/30/2005 02/24/2020 HYPERTENSION NOS 05/30/2014 Sicca syndrome 11/29/2021 documented as of this encounter (statuses as of 12/29/2022) [facility] Problem [...] 12/18/2010 05/29/2016 Sialoadenitis 09/04/2008 02/24/2020 Overview: 09/04/2008- [facility], Tank Sloan MD- left submandibular sialoadenitis secondary to stone formation. Follow-up examination, following unspecified joel israel 02/26/2006 02/08/2015 Carpal tunnel syndrome 10/17/2005 6 Other tenosynovitis of hand and wrist 10/17/2005 02/24/2020 Benign neoplasm of colon 09/30/2005 020 Internal hemorrhoids without mention of complica tion 09/30/2005 02/24/2020 HYPERTENSION NOS 05/30/2014 Sicca syndrome 11/29/2021 documented as of this encounter (statuses as of 01/05/2023) [facility] Problem [...] of this encounter (statuses as of 02/04/2023) [facility] Problem [...] of this encounter (statuses as of 03/16/2023) [facility] Problem [...] of this encounter (statuses as of 03/18/2023) [facility] Problem [...] of this encounter (statuses as of 03/18/2023) [facility] Problem [...] of this encounter (statuses as of 03/19/2023) [facility] Problem [...] 12/18/2010 05/29/2016 Sialoadenitis 09/04/2008 02/24/2020 Overview: 09/04/2008- [facility], Tank Sloan MD- left submandibular sialoadenitis secondary to stone formation. Follow-up examination, following unspecified joel israel 02/26/2006 02/08/2015 Carpal tunnel syndrome 10/17/2005 6 Other tenosynovitis of hand and wrist 10/17/2005 02/24/2020 Benign neoplasm of colon 09/30/2005 020 Internal hemorrhoids without mention of complica tion 09/30/2005 02/24/2020 HYPERTENSION NOS 05/30/2014 Sicca syndrome 11/29/2021 documented as of this encounter (statuses as of 04/11/2023) [facility] Problem [...] of this encounter (statuses as of 04/13/2023) [facility] History of Past illness Narrative* Problem [...] 12/18/2010 05/29/2016 Sialoadenitis 09/04/2008 02/24/2020 Overview: 09/04/2008- [facility], Tank Sloan MD- left submandibular sialoadenitis secondary to stone formation. Follow-up examination, following unspecified joel israel 02/26/2006 02/08/2015 Carpal tunnel syndrome 10/17/2005 6 Other tenosynovitis of hand and wrist 10/17/2005 02/24/2020 Benign neoplasm of colon 09/30/2005 020 Internal hemorrhoids without mention of complica tion 09/30/2005 02/24/2020 HYPERTENSION NOS 05/30/2014 Sicca syndrome 11/29/2021 documented as of this encounter (statuses as of 04/17/2023) [facility] History of Past illness Narrative* Problem [...] of this encounter (statuses as of 04/23/2023) [facility] History of Past illness Narrative* Problem [...] 12/18/2010 05/29/2016 Sialoadenitis 09/04/2008 02/24/2020 Overview: 09/04/2008- [facility], Tank Sloan MD- left submandibular sialoadenitis secondary to stone formation. Follow-up examination, follo wing unspecified surgery 02/26/2006 02/08/2015 Carpal tunnel syndrome 10/17/200503/12 Other tenosynovitis of hand and wrist 10/17/2005 02/24/2020 Benign neoplasm of colon 09/30/2005 Internal hemorrhoids without mention of complication 09/30/2005 02/24/2020 HYPERTENSION NOS 05/30/2014 Sicca syndrome 11/29/2021 documented as of this encounter (statuses as of 05/19/2023) [facility] Past illness Narrative* Problem [...] of this encounter (statuses as of 06/12/2023) [facility] Narrative* Problem [...] of this encounter (statuses as of 06/23/2023) [facility] Past [facility] Narrative* Problem [...] of this encounter (statuses as of 06/25/2023) [facility] History of Past illness Narrative* Problem [...] 12/18/2010 05/29/2016 Sialoadenitis 09/04/2008 02/24/2020 Overview: 09/04/2008- [facility], Tank Sloan MD- left submandibular sialoadenitis secondary to stone formation. Follow-up examination, follo wing unspecified surgery 02/26/2006 02/08/2015 Carpal tunnel syndrome 10/17/200503/12 Other tenosynovitis of hand and wrist 10/17/2005 02/24/2020 Benign neoplasm of colon 09/30/2005 Internal hemorrhoids without mention of complication 09/30/2005 02/24/2020 HYPERTENSION NOS 05/30/2014 Sicca syndrome 11/29/2021 documented as of this encounter (statuses as of 07/15/2023) [facility] of Past illness Narrative* Problem [...] 12/18/2010 05/29/2016 Sialoadenitis 09/04/2008 02/24/2020 Overview: 09/04/2008- [facility], Tank Sloan MD- left submandibular sialoadenitis secondary to stone formation. Follow-up examination, follo wing unspecified surgery 02/26/2006 02/08/2015 Carpal tunnel syndrome 10/17/200503/12 Other tenosynovitis of hand and wrist 10/17/2005 02/24/2020 Benign neoplasm of colon 09/30/2005 Internal hemorrhoids without mention of complication 09/30/2005 02/24/2020 HYPERTENSION NOS 05/30/2014 Sicca syndrome 11/29/2021 documented as of this encounter (statuses as of 07/23/2023) [facility] Narrative* Problem [...] of this encounter (statuses as of 08/06/2023) [facility] of Past [facility] Narrative* Problem [...] 12/18/2010 05/29/2016 Sialoadenitis 09/04/2008 02/24/2020 Overview: 09/04/2008- [facility], Tank Sloan MD- left submandibular sialoadenitis secondary to stone formation. Follow-up examination, follo wing unspecified surgery 02/26/2006 02/08/2015 Carpal tunnel syndrome 10/17/200503/12 Other tenosynovitis of hand and wrist 10/17/2005 02/24/2020 Benign neoplasm of colon 09/30/2005 Internal hemorrhoids without mention of complication 09/30/2005 02/24/2020 HYPERTENSION NOS 05/30/2014 Sicca syndrome 11/29/2021 documented as of this encounter (statuses as of 08/16/2023) [facility] Narrative* Problem [...] of this encounter (statuses as of 09/02/2023) [facility] Narrative* Problem [...] of this encounter (statuses as of 10/02/2023) [facility] Narrative* Problem [...] of this encounter (statuses as of 11/17/2023) [facility] History of Past illness Narrative* Problem [...] 12/18/2010 05/29/2016 Sialoadenitis 09/04/2008 02/24/2020 Overview: 09/04/2008- [facility], Tank Sloan MD- left submandibular sialoadenitis secondary to stone formation. Follow-up examination, follo wing unspecified surgery 02/26/2006 02/08/2015 Carpal tunnel syndrome 10/17/200503/12 Other tenosynovitis of hand and wrist 10/17/2005 02/24/2020 Benign neoplasm of colon 09/30/2005 Internal hemorrhoids without mention of complication 09/30/2005 02/24/2020 HYPERTENSION NOS 05/30/2014 Sicca syndrome 11/29/2021 documented as of this encounter (statuses as of 11/19/2023) [facility] Narrative* Problem [...] of this encounter (statuses as of 12/14/2023) [facility] Narrative* Problem [...] of this encounter (statuses as of 12/14/2023) [facility] Narrative* Problem [...] of this encounter (statuses as of 01/11/2024) [facility] Past [facility] Narrative* Problem [...] of this encounter (statuses as of 01/12/2024) [facility] Narrative* Problem [...] of this encounter (statuses as of 01/14/2024) [facility] Past [facility] Narrative* Problem [...] of this encounter (statuses as of 01/28/2024) [facility] Fredy Freeman [facility] Note Date/Time January 06, 2025 4:5 3am [facility] Medical Records Department [address] [place] [address] Emergency Department Summary 01/06/25 MR#: [id number] Acct: [id number] Name: MARY CRANE Rep #:[id number] : 1940 84 From: Fredy Freeman DO [...] therefore they called a stroke alert prehospital. [facility] Medical History Atrial fibrillation Irregular heart beat [...] ment 10/13/24 Unknown His tory mg-copper 1 [id number] capsule (PreserVision AREDS-2) acetaminophen 325 mg tablet [...] Patient follow commands that she was at [facility] years 2024. NIH of 0 GCS 15 [...] they ultimately decided call EMS to have herbrought here for further evaluation management. According to [...] [facility] the [facility] [...] evidence of first-degree AV block with a MO interval of 236. Patient CT head and [...] discussed with family and discussed transfer to [facility]. I called [facility] Critical transport team for the helicopter for [...] 76.5 H Lymph % (Auto) 13.8 L Newton % (Auto) 6.3 Eos % (Auto) 0.3 [...] Freeman at 4 a.m. 01/06/2025 Reading Location: [facility] Head/Neck CTA 01/06/25 03:34 IMPRESSION: No flow significant stenosis, dissection, vessel cut off or contrast filling aneurysm identified as above. Reading Location: [facility] Chest CTA 01/06/25 03:43 IMPRESSION: There is [...] 58 concerning for active bleeding. Reading Location: [facility] Discharge Plan Triage Chief Complaint: Stroke Alert [...] DO [Primary Care Provider] - Print Language: Vietnamese Disposition Disposition: DC/Tx to Another Type of HCF What to do if you have Problems For any increased pain, shortness of breath, bleeding, nausea or vomiting, chestpain, or any unexpected problems, contact your Primary Care Provider. Call [facility] ([phone]) or report to the closest Emergency Room. Call 911 if necessary. 01/06/25 [id number] <Electronically signed by Fredy Freeman DO> Cosigner Signature (if applicable): CC: Dr. Atul Harvey DO ~ Signed [facility] Work Phone: Evaluation note* Diagnosis Vitamin D deficiency Unspecified vitamin D deficiency documented [facility] note[facility] assessment information availableW[facility] Work Phone: Evaluation note* Diagnosis Hypertension, essential- [...] pulmonary heart diseases [facility] Encounter for screening mammogram for malignant neoplasm of breast Other screening mammogram [facility] Encounter for screening for malignant neoplasm of colon- Primary Special screening for malignant neoplasms, colon History of colonic polyps Personal history of colonic polyps [facility]* Diagnosis Abdominal cramping- Primary Abdominal pain, [...] rheumatoid factor (HCC) [facility] History of colonic polyps- Primary Personal history of colonic polyps Tubular adenoma Benign neoplasm of unspecified site [facility] Alkaline phosphatase elevation- Primary Other nonspecific abnormal serum enzyme levels [facility] Diagnosis Vitamin D deficiency Unspecified vitamin D deficiency [facility] Diagnosis Hypertension, essential- Primary Unspecified essential [...] pulmonary heart diseases [facility] Diagnosis Acute bronchitis, unspecified organism- Primary [facility] Diagnosis Hypertension, essential Unspecified essential hypertension [facility] Diagnosis Hypertension, essential- Primary Unspecified essential hypertension Chronic diastolic congestive heart failure (HCC) Chronic diastolic heart failure Pulmonary hypertension (HCC) Other chronic pulmonary heart diseases PVC (premature ventricular contraction) Other premature beats Thoracic aortic ectasia (HCC) Thoracic aortic ectasia Dyslipidemia Other and unspecified hyperlipidemia Palpitations [facility] Pal[facility]ations [facility] Diagnosis Hypertension, essential Unspecified essential hypertension [facility] Diagnosis Gastroesophageal reflux disease with esophagitis, unspecified whether hemorrhage- Primary Special screening for malignant neoplasms, colon Screening for colon cancer Special screening for malignant neoplasms, colon [facility] Diagnosis Alkaline phosphatase elevation Other nonspecific abnormal serum enzyme levels [facility] Diagnosis Hypertension, essential Unspecified essential hypertension Vitamin D deficiency Unspecified vitamin D deficiency Abdominal cramping Abdominal pain, unspecified site Functional diarrhea [facility] Diagnosis Hypertension, essential Unspecified essential hypertension [facility] Diagnosis Hypertension, essential Unspecified essential hypertension [facility] Diagnosis Vitamin B12 deficiency- Primary Other B-complex deficiencies Vitamin D deficiency Unspecified vitamin D deficiency Pre-diabetes Other abnormal glucose IFG (impaired fasting glucose) Impaired fasting glucose Dyslipidemia Other and unspecified hyperlipidemia [facility] Diagnosis IFG (impaired fasting glucose)- [...] and unspecified hyperlipidemia [facility] Diagnosis Elevated LFTs- Primary Other abnormal blood chemistry Subclinical hypothyroidism Other specified acquired hypothyroidism Elevated LFTs Other abnormal blood chemistry [facility] Diagnosis Elevated LFTs Other abnormal blood chemistry [facility] Diagnosis Fatty liver- Primary Other chronic nonalcoholic liver disease [facility] Diagnosis Wasp sting, accidental or unintentional, initial encounter- Primary Cellulitis of left upper extremity Cellulitis and abscess of upper arm and forearm [facility] Diagnosis Wasp sting, accidental or unintentional, subsequent encounter- Primary Cellulitis of left upper extremity Cellulitis and abscess of upper arm and forearm [facility] Diagnosis Subclinical hypothyroidism Other specified acquired hypothyroidism [facility] Diagnosis Yeast dermatitis- Primary Candidiasis of skin and nails [facility] Diagnosis Fatty liver Other chronic nonalcoholic liver disease [facility] Diagnosis Productive cough Cough [facility] Diagnosis Neck pain, bilateral Cervicalgia Chronic pain of both shoulders Pain in joint, shoulder region [facility] Diagnosis Chronic diastolic congestive heart failure (HCC)- Primary Chronic diastolic heart failure Nonrheumatic mitral valve regurgitation Thoracic aortic ectasia (HCC) Thoracic aortic ectasia Hypertension, essential Unspecified essential hypertension Dyslipidemia Other and unspecified hyperlipidemia Atrial arrhythmia Cardiac dysrhythmia, unspecified Pulmonary hypertension (HCC) Other chronic pulmonary heart diseases Palpitations [facility] Diagnosis Subclinical hypothyroidism Other specified acquired hypothyroidism [facility] Diagnosis Vitamin B12 deficiency- Primary Other B-complex deficiencies Vitamin D deficiency Unspecified vitamin D deficiency Dyslipidemia Other and unspecified hyperlipidemia Elevated TSH Nonspecific abnormal results of thyroid function study IFG (impaired fasting glucose) Impaired fasting glucose [facility] Diagnosis Left wrist pain- Primary [...] Impaired fasting glucose [facility] Diagnosis SOB (shortness of breath)- Primary Shortness of breath Fever, unspecified fever cause [facility] Diagnosis Primary osteoarthritis of first carpometacarpal joint of left hand- Primary Primary localized osteoarthrosis, hand Left wrist pain Pain in joint, forearm [facility] Diagnosis New onset a-fib (HCC)- Primary Atrial fibrillation Encounter for immunization Need for other specified prophylactic vaccination against single bacterial disease RSV (acute bronchiolitis due to respiratory syncytial virus) Acute bronchiolitis due to respiratory syncytial virus (RSV) Generalized weakness Other malaise and fatigue Decreased appetite Anorexia [facility] Diagnosis Paroxysmal atrial fibrillation (HCC)- Primary Atrial fibrillation Hypertension, essential Unspecified essential hypertension Chronic diastolic congestive heart failure (HCC) Chronic diastolic heart failure Thoracic aortic ectasia (HCC) Thoracic aortic ectasia Nonrheumatic mitral valve regurgitation PVC (premature ventricular contraction) Other premature beats Pulmonary hypertension (HCC) Other chronic pulmonary heart diseases [facility] Diagnosis Rhinosinusitis- Primary Unspecified sinusitis (chronic) [facility] Diagnosis Subclinical hypothyroidism Other specified acquired hypothyroidism [facility] Diagnosis Spleen laceration into parenchyma, sequela- Primary Subclinical hypothyroidism Other specified acquired hypothyroidism Paroxysmal atrial fibrillation (HCC) Atrial fibrillation Hypokalemia Hypopotassemia Generalized weakness Other malaise and fatigue Hypertension, essential Unspecified essential hypertension Dyslipidemia Other and unspecified hyperlipidemia H/O splenectomy Other acquired absence of organ Iron deficiency anemia, unspecified iron deficiency anemia type [facility] Diagnosis Paroxysmal atrial fibrillation (HCC) Atrial fibrillation [facility] Diagnosis Abdominal cramping Abdominal pain, unspecified site Functional diarrhea Vitamin D deficiency Unspecified vitamin D deficiency [facility] Diagnosis Paroxysmal atrial fibrillation (HCC)- Primary Atrial fibrillation Pulmonary hypertension (HCC) Other chronic pulmonary heart diseases Chronic diastolic congestive heart failure (HCC) Chronic diastolic heart failure Nonrheumatic mitral valve regurgitation Hypertension, essential Unspecified essential hypertension Orthostatic hypotension Thoracic aortic ectasia Mixed hyperlipidemia [facility] Diagnosis URI, acute- Primary Acute upper respiratory infections of unspecified site URI, acute Acute upper respiratory infections of unspecified site [facility] Diagnosis URI, acute- Primary Acute upper respiratory infections of unspecified site [facility] Diagnosis URI, acute Acute upper respiratory infections of unspecified site [facility] Diagnosis Iron deficiency anemia, unspecified iron deficiency anemia type- Primary Gait disturbance Abnormality of gait Dyslipidemia Other and unspecified hyperlipidemia Subclinical hypothyroidism Other specified acquired hypothyroidism Vitamin D deficiency Unspecified vitamin D deficiency Hypertension, essential Unspecified essential hypertension H/O splenectomy Other acquired absence of organ IFG (impaired fasting glucose) Impaired fasting glucose Elevated LFTs Other abnormal blood chemistry documented in this encounter [facility] for referral (narrative)* Outpatient Procedure (Routine) - Authorized Specialty Diagnoses / Procedures Referred By Kirsty raza Referred To Contact [facility] Diagnoses Screening for colon cancer Procedures COLONOSCOPY SCREENING COLONOSCOPY FLX DX W/COLLJ SPEC WHEN PFRMD Atul Harvey DO [address] [place] [address] [facility] [address] [place] [address] Referral ID Status Reason Start Date Expiration Date Visits Requested Visits Authorized [id number] Authorized Auto-Generat ed Referral 07/08/2022 07/08/2023 1 1 * Diagnostic Procedure Only (Routine) - Authorized Specialty Diagnoses / Procedures Referred By Kirsty raza Referred To Contact [facility] Diagnoses Encounter for screening mammogram for malignant neoplasm of breast Procedures WILLI SCREENING SCREENING MAMMOGRAPHY BI 2-VIEW BREAST INC Atul Valle, DO [address] [place] [address] [facility] [address] [place] [id number] Referral ID Status Reason Start Date Expiration Date Visits Requested Visits Authorized [id number] Authorized Auto-Generat ed Referral 07/08/2022 08/07/2023 1 1 [facility] for referral (narrative)* Diagnostic Procedure Only (Routine) - Closed Specialty Diagnoses / Procedures Referred By Kirsty Referred To Contact [facility] Diagnoses Encounter for screening mammogram for malignant neoplasm of breast Procedures WILLI SCREENING SCREENING MAMMOGRAPHY BI 2-VIEW BREAST INC Atul Valle, DO [address] [place] [address] [facility] [address] [place] [id number] Referral ID Status Reason Start Date Expiration Date V isits Requested Visits Authorized [id number] Closed Auto-Generate d Referral 07/08/2022 08/07/2023 1 1 [facility] for referral (narrative)* Diagnostic Procedure Only (Routine) - Closed Specialty Diagnoses / Procedures Referred By Contac t Referred To Contact [facility] Diagnoses Alkaline phosphatase elevation Procedures US ABD RT UPPER QUADRANT US ABDOMINAL REAL TIME W/IMAGE LIMITED Atul Harvey, DO [address] [place] [address] [facility] Referral ID Status Reason Start Date Expiration Date V isits Requested Visits Authorized [id number] Closed Auto-Generate d Referral 09/24/2022 10/24/2023 1 1 [facility] for referral (narrative)* Outpatient Procedure (Routine) - Authorized Specialty Diagnoses / Procedures Referred By Contac t Referred To Contact [facility] Diagnoses Palpitations Procedures ECHO ECHO TTHRC R-T 2D W/WOM-MODE COMPL SPEC&COLR D Rasheed Barrios MD [address] [place] [id number] [facility] [address] [address] Referral ID Status Reason Start Date Expiration Date Visits Requested Visits Authorized [id number] Authorized Auto-Generat ed Referral 04/13/2023 04/12/2024 1 1 [facility] for referral (narrative)* Outpatient Procedure (Routine) - Closed Specialty Diagnoses / Procedures Referred By Contac t Referred To Contact [facility] Diagnoses Screening for colon cancer Procedures COLONOSCOPY SCREENING COLONOSCOPY FLX DX W/COLLJ SPEC WHEN PFRMD Atul Harvey, DO [address] [place] [address] [facility] [address] [place] [id number] Referral ID Status Reason Start Date Expiration Date V isits Requested Visits Authorized [id number] Closed Auto-Generate d Referral 07/08/2022 07/08/2023 1 1 [facility] for referral (narrative)* Diagnostic Procedure Only (Routine) - Closed Specialty Diagnoses / Procedures Referred By Contac t Referred To Contact [facility] Diagnoses Alkaline phosphatase elevation Procedures US ABD RT UPPER QUADRANT US ABDOMINAL REAL TIME W/IMAGE LIMITED Atul Harvey, DO [address] [place] [address] [place] [address] Referral ID Status Reason Start Date Expiration Date V isits Requested Visits Authorized [id number] Closed Auto-Generate d Referral 09/24/2022 10/24/2023 1 1 [facility] for referral (narrative)* Diagnostic Procedure Only (Routine) - Closed Specialty Diagnoses / Procedures Referred By Contac t Referred To Contact [facility] Diagnoses Elevated LFTs Procedures US ABD RIGHT UPPER QUADRANT US ABDOMINAL REAL TIME W/IMAGE LIMITED Atul Harvey, DO [address] [place] [address] [place] [address] Referral ID Status Reason Start Date Expiration Date V isits Requested Visits Authorized [id number] Closed Auto-Generate d Referral 02/17/2024 03/18/2025 1 1 [facility] for referral (narrative)* Diagnostic Procedure Only (Routine) - Closed Specialty Diagnoses / Procedures Referred By Contac t Referred To Contact [facility] Diagnoses Elevated LFTs Procedures US ABD RIGHT UPPER QUADRANT US ABDOMINAL REAL TIME W/IMAGE LIMITED Atul Harvey, DO [address] [place] [address] [place] [address] Referral ID Status Reason Start Date Expiration Date V isits Requested Visits Authorized [id number] Closed Auto-Generate d Referral 02/17/2024 03/18/2025 1 1 [facility] for referral (narrative)* Diagnostic Procedure Only (Routine) - Authorized Specialty Diagnoses / Procedures Referred By Contac t Referred To Contact [facility] Diagnoses Fatty liver Procedures US ABD RIGHT UPPER QUADRANT US ABDOMINAL REAL TIME W/IMAGE LIMITED Atul Harvey, DO [address] [place], [place] [address] [place] [address] Referral ID Status Reason Start Date Expiration Date Visits Requested Visits Authorized [id number] Authorized Auto-Generat ed Referral 02/23/2024 03/24/2025 1 1 [facility] for referral (narrative)* Diagnostic Procedure Only (Routine) - Closed Specialty Diagnoses / Procedures Referred By Contac t Referred To Contact [facility] IMAGING Diagnoses Fatty liver Procedures US ABD RIGHT UPPER QUADRANT US ABDOMINAL REAL TIME W/IMAGE LIMITED Atul Harvey, DO [address] [place] [address] [place] [address] Referral ID Status Reason Start Date Expiration Date V isits Requested Visits Authorized [id number] Closed Auto-Generate d Referral 02/23/2024 03/24/2025 1 1 [facility] for referral (narrative)No reason for referral information availableWSelect [facility] Phone: Reason for visit Narrative* Diagnostic Procedure Only (Routine) - Closed Specialty Diagnoses / Procedures Referred By Contac t Referred To Contact [facility] Diagnoses Encounter for screening mammogram for malignant neoplasm of breast Procedures WILLI SCREENING SCREENING MAMMOGRAPHY BI 2-VIEW BREAST INC CAD Atul Harvey, DO [address] [place] [address] [facility] [address] [place] [address] Referral ID Status Reason Start Date Expiration Date V isits Requested Visits Authorized [id number] Closed Auto-Generate d Referral 07/08/2022 08/07/2023 1 1 [facility] for visit Narrative* Outpatient Procedure (Routine) - Closed Specialty Diagnoses / Procedures Referred By Contac t Referred To Contact [facility] Diagnoses Palpitations Procedures ECHO ECHO TTHRC R-T 2D W/WOM-MODE COMPL SPEC&COLR D Rasheed Barrios MD [address] [place] [id number] [facility] [address] [place] [id number] Referral ID Status Reason Start Date Expiration Date V isits Requested Visits Authorized [id number] Closed Auto-Generate d Referral 04/13/2023 04/12/2024 1 1 [facility] for visit Narrative* Outpatient Procedure (Routine) - Closed Specialty Diagnoses / Procedures Referred By Contac t Referred To Contact [facility] Diagnoses Screening for colon cancer Procedures COLONOSCOPY SCREENING COLONOSCOPY FLX DX W/COLLJ SPEC WHEN PFRMD Atul Harvey, DO [address] [place] [address] [facility] [address] [place] [id number] Referral ID Status Reason Start Date Expiration Date V isits Requested Visits Authorized [id number] Closed Auto-Generate d Referral 07/08/2022 07/08/2023 1 1 [facility] for visit Narrative* Diagnostic Procedure Only (Routine) - Closed Specialty Diagnoses / Procedures Referred By Kirsty t Referred To Contact XR IMAGING Diagnoses Left wrist pain Procedures XR WRIST GENERAL 3V PA/LAT/OBL LEFT RADEX WRIST COMPLETE MINIMUM 3 VIEWS Atul Harvey, DO [address] [place] [address] [place] [address] Referral ID Status Reason Start Date Expiration Date V isits Requested Visits Authorized [id number] Closed Auto-Generate d Referral 08/22/2024 09/21/2025 1 1 [facility] Advance Directives No Advanced Directives Records Found Date Activated Date Inactivated Comments 01/10/2025 12:02 PM 01/17/2025 4:57 PM Question Answer Comments Full Code Order Discussed With: Surrogate [place] on Maker Surrogate Decision Maker Name: Noemy ga- Daughter and Kasandra Crane- Daughter Surrogate Decision Maker Relationship: M ajority of Adult Children (client representative) Date Activated Date Inactivated Comments 01/06/2025 6:54 AM 01/10/2025 12:02 PM Question Answer Comments Full Code Order Discussed With: Surrogate [place] on Maker Surrogate Decision Maker Name: Noemy seo Documents on File Type Date Recorded 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 Advance Directive(s) 07/28/2016 10:17 AM Advance Directive(s) 07/21/2016 12:53 PM Advance Directive(s) 06/30/2016 12:14 PM Advance Directive(s) 06/27/2016 8:33 AM Advance Directive Response Recorded Date/ Time Advance Directives No July 14, 2016 8:54pm Living Will Yes July 08, 2017 1:09pm Power of Rn Med Surg Yes June 1:09pm Advance Directive Response Recorded Date/ Time Advance Directives No July 14, 2016 7:54pm Living Will Yes July 08, 2017 12:09pm Power of Rn Med Surg Yes June 12:09pm Date Activated Date Inactivated Comments 01/06/2025 6:54 AM Question Answer Comments Full Code Order Discussed With: Surrogate [place] on Maker Surrogate Decision Maker Name: Noemy [email or web address] Advance Directive Response Recorded Date/ Time Living Will No October 12 6:28pm Do you have a Healthcare Pow er of Rn Med Surg? Yes October 12, 2024 6:28pm Name of Medical Power of Rn Med Surg Noemy Mayi & Edmond Haley October 12, 2024 6:28pm Living Will No January 06, 2025 4:13am Do you have a Healthcare Pow er of Rn Med Surg? No January 06, 2025 4:13am Advance Directives No July 14, 2016 8:54pm Date Activated Date Inactivated Comments 01/10/2025 12:02 PM Advance Directive Response Recorded Date/ Time Living Will No January 06, 2025 4:13am Do you have a Healthcare Power of Rn Med Surg? No January 06, 2025 4:13am Advance Directives No July 14, 2016 8:54pm Advance Directive Response Recorded Date/ Time Advance Directives No July 14, 2016 8:54pm Family History No Family History Records Found Relationship Condition Age at Onset Recorded Date/T shreya Unknown Family History?- Unknown July 1:30am Family [...] Referral Specialty Diagnoses / Procedures Referred By Contac t Referred To Contact Diagnoses Abdominal cramping Functional diarrhea Atul Harvey, DO [address] [place] [address] Referral ID Status Reason Start Date Expiration Date V isits Requested Visits Authorized [id number] Pending Review 1 1 Specialty Diagnoses / Procedures Referred By Contac t Referred To Contact Orthopedics Diagnoses Left wrist pain Procedures CONSULT TO ORTHOPAEDICS OFFICE/OUTPATIENT [facility] 60 MINUTES Atul Harvey, DO [address] [place] [address] Referral ID Status Reason Start Date Expiration Date Visits Requested Visits Authorized [id number] Authorized PCP Requested Referral 08/22/2025 1 1 Specialty Diagnoses / Procedures Referred By Contac t Referred To Contact XR IMAGING Diagnoses Left wrist pain Procedures XR WRIST GENERAL 3V PA/LAT/OBL LEFT RADEX WRIST COMPLETE MINIMUM 3 VIEWS Atul Harvey, DO [address] [place] [address] [place] [address] Referral ID Status Reason Start Date Expiration Date V isits Requested Visits Authorized [id number] Closed Auto-Generate d Referral 08/22/2024 09/21/2025 1 1 Chief Complaint and Reason for Visit Chief Complaint PAIN- COPY PCP Chief Complaint PAIN- COPY PCP Other detention (current) drug therapy Chief Complaint Admit Date [...] FOR PROCEDURAL SEDATION ONLY, Intraprocedure Given by [facility] 09/30/2022 9:34 AM EST 25 mcg Given by [facility] 09/30/2022 9:32 AM EST 25 mcg lactated [...] 9:42 AM EST 1 mg Given by [facility] 09/30/2022 9:34 AM EST 2 mg Given by [facility] 09/30/2022 9:32 AM EST 2 mg Additional Source Comments Source Comments (unrecognize d section and content) In the event this informatio n is protected by the Federal Confidentiality of Alcohol and Drug Abuse Patient Records regulations: The Federal rules restrict any use of the information to criminally investigate or prosecute any alcohol or drug abuse patient.[facility] the event this information is protected by the Federal Confidentiality of Alcohol and Drug Abuse Patient Records regulations: The Federal rules restrict any use of the information to criminally investigate or prosecute any alcohol or drug abuse patient.[facility] HospitalIn the event this information is protected by the Federal Confidentiality of Alcohol and Drug Abuse Patient Records regulations: The Federal rules restrict any use of the information to criminally investigate or prosecute any alcohol or drug abuse patient.[facility] HospitalIn the event this information is protected by the Federal Confidentiality of Alcohol and Drug Abuse Patient Records regulations: The Federal rules restrict any use of the information to criminally investigate or prosecute any alcohol or drug abuse patient.[facility] HospitalIn the event this information is protected by the Federal Confidentiality of Alcohol and Drug Abuse Patient Records regulations: The Federal rules restrict any use of the information to criminally investigate or prosecute any alcohol or drug abuse patient.[facility] HospitalIn the event this information is protected by the Federal Confidentiality of Alcohol and Drug Abuse Patient Records regulations: The Federal rules restrict any use of the information to criminally investigate or prosecute any alcohol or drug abuse patient.[facility] HospitalIn the event this information is protected by the Federal Confidentiality of Alcohol and Drug Abuse Patient Records regulations: The Federal rules restrict any use of the information to criminally investigate or prosecute any alcohol or drug abuse patient.[facility] HospitalIn the event this information is protected by the Federal Confidentiality of Alcohol and Drug Abuse Patient Records regulations: The Federal rules restrict any use of the information to criminally investigate or prosecute any alcohol or drug abuse patient.[facility] HospitalIn the event this information is protected by the Federal Confidentiality of Alcohol and Drug Abuse Patient Records regulations: The Federal rules restrict any use of the information to criminally investigate or prosecute any alcohol or drug abuse patient.[facility] HospitalIn the event this information is protected by the Federal Confidentiality of Alcohol and Drug Abuse Patient Records regulations: The Federal rules restrict any use of the information to criminally investigate or prosecute any alcohol or drug abuse patient.[facility] HospitalIn the event this information is protected by the Federal Confidentiality of Alcohol and Drug Abuse Patient Records regulations: The Federal rules restrict any use of the information to criminally investigate or prosecute any alcohol or drug abuse patient.[facility] HospitalIn the event this information is protected by the Federal Confidentiality of Alcohol and Drug Abuse Patient Records regulations: The Federal rules restrict any use of the information to criminally investigate or prosecute any alcohol or drug abuse patient.[facility] HospitalIn the event this information is protected by the Federal Confidentiality of Alcohol and Drug Abuse Patient Records regulations: The Federal rules restrict any use of the information to criminally investigate or prosecute any alcohol or drug abuse patient.[facility] HospitalIn the event this information is protected by the Federal Confidentiality of Alcohol and Drug Abuse Patient Records regulations: The Federal rules restrict any use of the information to criminally investigate or prosecute any alcohol or drug abuse patient.[facility] HospitalIn the event this information is protected by the Federal Confidentiality of Alcohol and Drug Abuse Patient Records regulations: The Federal rules restrict any use of the information to criminally investigate or prosecute any alcohol or drug abuse patient.[facility] HospitalIn the event this information is protected by the Federal Confidentiality of Alcohol and Drug Abuse Patient Records regulations: The Federal rules restrict any use of the information to criminally investigate or prosecute any alcohol or drug abuse patient.[facility] HospitalIn the event this information is protected by the Federal Confidentiality of Alcohol and Drug Abuse Patient Records regulations: The Federal rules restrict any use of the information to criminally investigate or prosecute any alcohol or drug abuse patient.[facility] HospitalIn the event this information is protected by the Federal Confidentiality of Alcohol and Drug Abuse Patient Records regulations: The Federal rules restrict any use of the information to criminally investigate or prosecute any alcohol or drug abuse patient.[facility] HospitalIn the event this information is protected by the Federal Confidentiality of Alcohol and Drug Abuse Patient Records regulations: The Federal rules restrict any use of the information to criminally investigate or prosecute any alcohol or drug abuse patient.[facility] HospitalIn the event this information is protected by the Federal Confidentiality of Alcohol and Drug Abuse Patient Records regulations: The Federal rules restrict any use of the information to criminally investigate or prosecute any alcohol or drug abuse patient.[facility] HospitalIn the event this information is protected by the Federal Confidentiality of Alcohol and Drug Abuse Patient Records regulations: The Federal rules restrict any use of the information to criminally investigate or prosecute any alcohol or drug abuse patient.[facility] HospitalIn the event this information is protected by the Federal Confidentiality of Alcohol and Drug Abuse Patient Records regulations: The Federal rules restrict any use of the information to criminally investigate or prosecute any alcohol or drug abuse patient.[facility] HospitalIn the event this information is protected by the Federal Confidentiality of Alcohol and Drug Abuse Patient Records regulations: The Federal rules restrict any use of the information to criminally investigate or prosecute any alcohol or drug abuse patient.[facility] HospitalIn the event this information is protected by the Federal Confidentiality of Alcohol and Drug Abuse Patient Records regulations: The Federal rules restrict any use of the information to criminally investigate or prosecute any alcohol or drug abuse patient.[facility] HospitalIn the event this information is protected by the Federal Confidentiality of Alcohol and Drug Abuse Patient Records regulations: The Federal rules restrict any use of the information to criminally investigate or prosecute any alcohol or drug abuse patient.[facility] HospitalIn the event this information is protected by the Federal Confidentiality of Alcohol and Drug Abuse Patient Records regulations: The Federal rules restrict any use of the information to criminally investigate or prosecute any alcohol or drug abuse patient.[facility] HospitalIn the event this information is protected by the Federal Confidentiality of Alcohol and Drug Abuse Patient Records regulations: The Federal rules restrict any use of the information to criminally investigate or prosecute any alcohol or drug abuse patient.[facility] HospitalIn the event this information is protected by the Federal Confidentiality of Alcohol and Drug Abuse Patient Records regulations: The Federal rules restrict any use of the information to criminally investigate or prosecute any alcohol or drug abuse patient.[facility] HospitalIn the event this information is protected by the Federal Confidentiality of Alcohol and Drug Abuse Patient Records regulations: The Federal rules restrict any use of the information to criminally investigate or prosecute any alcohol or drug abuse patient.[facility] HospitalIn the event this information is protected by the Federal Confidentiality of Alcohol and Drug Abuse Patient Records regulations: The Federal rules restrict any use of the information to criminally investigate or prosecute any alcohol or drug abuse patient.[facility] HospitalIn the event this information is protected by the Federal Confidentiality of Alcohol and Drug Abuse Patient Records regulations: The Federal rules restrict any use of the information to criminally investigate or prosecute any alcohol or drug abuse patient.[facility] HospitalIn the event this information is protected by the Federal Confidentiality of Alcohol and Drug Abuse Patient Records regulations: The Federal rules restrict any use of the information to criminally investigate or prosecute any alcohol or drug abuse patient.[facility] HospitalIn the event this information is protected by the Federal Confidentiality of Alcohol and Drug Abuse Patient Records regulations: The Federal rules restrict any use of the information to criminally investigate or prosecute any alcohol or drug abuse patient.[facility] HospitalIn the event this information is protected by the Federal Confidentiality of Alcohol and Drug Abuse Patient Records regulations: The Federal rules restrict any use of the information to criminally investigate or prosecute any alcohol or drug abuse patient.[facility] HospitalIn the event this information is protected by the Federal Confidentiality of Alcohol and Drug Abuse Patient Records regulations: The Federal rules restrict any use of the information to criminally investigate or prosecute any alcohol or drug abuse patient.[facility] HospitalIn the event this information is protected by the Federal Confidentiality of Alcohol and Drug Abuse Patient Records regulations: The Federal rules restrict any use of the information to criminally investigate or prosecute any alcohol or drug abuse patient.[facility] HospitalIn the event this information is protected by the Federal Confidentiality of Alcohol and Drug Abuse Patient Records regulations: The Federal rules restrict any use of the information to criminally investigate or prosecute any alcohol or drug abuse patient.[facility] HospitalIn the event this information is protected by the Federal Confidentiality of Alcohol and Drug Abuse Patient Records regulations: The Federal rules restrict any use of the information to criminally investigate or prosecute any alcohol or drug abuse patient.[facility] HospitalIn the event this information is protected by the Federal Confidentiality of Alcohol and Drug Abuse Patient Records regulations: The Federal rules restrict any use of the information to criminally investigate or prosecute any alcohol or drug abuse patient.[facility] HospitalIn the event this information is protected by the Federal Confidentiality of Alcohol and Drug Abuse Patient Records regulations: The Federal rules restrict any use of the information to criminally investigate or prosecute any alcohol or drug abuse patient.[facility] HospitalIn the event this information is protected by the Federal Confidentiality of Alcohol and Drug Abuse Patient Records regulations: The Federal rules restrict any use of the information to criminally investigate or prosecute any alcohol or drug abuse patient.[facility] HospitalIn the event this information is protected by the Federal Confidentiality of Alcohol and Drug Abuse Patient Records regulations: The Federal rules restrict any use of the information to criminally investigate or prosecute any alcohol or drug abuse patient.[facility] HospitalIn the event this information is protected by the Federal Confidentiality of Alcohol and Drug Abuse Patient Records regulations: The Federal rules restrict any use of the information to criminally investigate or prosecute any alcohol or drug abuse patient.[facility] HospitalIn the event this information is protected by the Federal Confidentiality of Alcohol and Drug Abuse Patient Records regulations: The Federal rules restrict any use of the information to criminally investigate or prosecute any alcohol or drug abuse patient.[facility] HospitalIn the event this information is protected by the Federal Confidentiality of Alcohol and Drug Abuse Patient Records regulations: The Federal rules restrict any use of the information to criminally investigate or prosecute any alcohol or drug abuse patient.[facility] HospitalIn the event this information is protected by the Federal Confidentiality of Alcohol and Drug Abuse Patient Records regulations: The Federal rules restrict any use of the information to criminally investigate or prosecute any alcohol or drug abuse patient.[facility] HospitalIn the event this information is protected by the Federal Confidentiality of Alcohol and Drug Abuse Patient Records regulations: The Federal rules restrict any use of the information to criminally investigate or prosecute any alcohol or drug abuse patient.[facility] HospitalIn the event this information is protected by the Federal Confidentiality of Alcohol and Drug Abuse Patient Records regulations: The Federal rules restrict any use of the information to criminally investigate or prosecute any alcohol or drug abuse patient.[facility] HospitalIn the event this information is protected by the Federal Confidentiality of Alcohol and Drug Abuse Patient Records regulations: The Federal rules restrict any use of the information to criminally investigate or prosecute any alcohol or drug abuse patient.[facility] HospitalIn the event this information is protected by the Federal Confidentiality of Alcohol and Drug Abuse Patient Records regulations: The Federal rules restrict any use of the information to criminally investigate or prosecute any alcohol or drug abuse patient.[facility] HospitalIn the event this information is protected by the Federal Confidentiality of Alcohol and Drug Abuse Patient Records regulations: The Federal rules restrict any use of the information to criminally investigate or prosecute any alcohol or drug abuse patient.[facility] HospitalIn the event this information is protected by the Federal Confidentiality of Alcohol and Drug Abuse Patient Records regulations: The Federal rules restrict any use of the information to criminally investigate or prosecute any alcohol or drug abuse patient.[facility] HospitalIn the event this information is protected by the Federal Confidentiality of Alcohol and Drug Abuse Patient Records regulations: The Federal rules restrict any use of the information to criminally investigate or prosecute any alcohol or drug abuse patient.[facility] HospitalIn the event this information is protected by the Federal Confidentiality of Alcohol and Drug Abuse Patient Records regulations: The Federal rules restrict any use of the information to criminally investigate or prosecute any alcohol or drug abuse patient.[facility] HospitalIn the event this information is protected by the Federal Confidentiality of Alcohol and Drug Abuse Patient Records regulations: The Federal rules restrict any use of the information to criminally investigate or prosecute any alcohol or drug abuse patient.[facility] HospitalIn the event this information is protected by the Federal Confidentiality of Alcohol and Drug Abuse Patient Records regulations: The Federal rules restrict any use of the information to criminally investigate or prosecute any alcohol or drug abuse patient.[facility] HospitalIn the event this information is protected by the Federal Confidentiality of Alcohol and Drug Abuse Patient Records regulations: The Federal rules restrict any use of the information to criminally investigate or prosecute any alcohol or drug abuse patient.[facility] HospitalIn the event this information is protected by the Federal Confidentiality of Alcohol and Drug Abuse Patient Records regulations: The Federal rules restrict any use of the information to criminally investigate or prosecute any alcohol or drug abuse patient.[facility] HospitalIn the event this information is protected by the Federal Confidentiality of Alcohol and Drug Abuse Patient Records regulations: The Federal rules restrict any use of the information to criminally investigate or prosecute any alcohol or drug abuse patient.[facility] HospitalIn the event this information is protected by the Federal Confidentiality of Alcohol and Drug Abuse Patient Records regulations: The Federal rules restrict any use of the information to criminally investigate or prosecute any alcohol or drug abuse patient.[facility] HospitalIn the event this information is protected by the Federal Confidentiality of Alcohol and Drug Abuse Patient Records regulations: The Federal rules restrict any use of the information to criminally investigate or prosecute any alcohol or drug abuse patient.[facility] HospitalIn the event this information is protected by the Federal Confidentiality of Alcohol and Drug Abuse Patient Records regulations: The Federal rules restrict any use of the information to criminally investigate or prosecute any alcohol or drug abuse patient.[facility] HospitalIn the event this information is protected by the Federal Confidentiality of Alcohol and Drug Abuse Patient Records regulations: The Federal rules restrict any use of the information to criminally investigate or prosecute any alcohol or drug abuse patient.[facility] HospitalIn the event this information is protected by the Federal Confidentiality of Alcohol and Drug Abuse Patient Records regulations: The Federal rules restrict any use of the information to criminally investigate or prosecute any alcohol or drug abuse patient.[facility] HospitalIn the event this information is protected by the Federal Confidentiality of Alcohol and Drug Abuse Patient Records regulations: The Federal rules restrict any use of the information to criminally investigate or prosecute any alcohol or drug abuse patient.[facility] HospitalIn the event this information is protected by the Federal Confidentiality of Alcohol and Drug Abuse Patient Records regulations: The Federal rules restrict any use of the information to criminally investigate or prosecute any alcohol or drug abuse patient.[facility] HospitalIn the event this information is protected by the Federal Confidentiality of Alcohol and Drug Abuse Patient Records regulations: The Federal rules restrict any use of the information to criminally investigate or prosecute any alcohol or drug abuse patient.[facility] HospitalIn the event this information is protected by the Federal Confidentiality of Alcohol and Drug Abuse Patient Records regulations: The Federal rules restrict any use of the information to criminally investigate or prosecute any alcohol or drug abuse patient.[facility] HospitalIn the event this information is protected by the Federal Confidentiality of Alcohol and Drug Abuse Patient Records regulations: The Federal rules restrict any use of the information to criminally investigate or prosecute any alcohol or drug abuse patient.[facility] HospitalIn the event this information is protected by the Federal Confidentiality of Alcohol and Drug Abuse Patient Records regulations: The Federal rules restrict any use of the information to criminally investigate or prosecute any alcohol or drug abuse patient.[facility] HospitalIn the event this information is protected by the Federal Confidentiality of Alcohol and Drug Abuse Patient Records regulations: The Federal rules restrict any use of the information to criminally investigate or prosecute any alcohol or drug abuse patient.[facility] HospitalIn the event this information is protected by the Federal Confidentiality of Alcohol and Drug Abuse Patient Records regulations: The Federal rules restrict any use of the information to criminally investigate or prosecute any alcohol or drug abuse patient.[facility] HospitalIn the event this information is protected by the Federal Confidentiality of Alcohol and Drug Abuse Patient Records regulations: The Federal rules restrict any use of the information to criminally investigate or prosecute any alcohol or drug abuse patient.[facility] HospitalIn the event this information is protected by the Federal Confidentiality of Alcohol and Drug Abuse Patient Records regulations: The Federal rules restrict any use of the information to criminally investigate or prosecute any alcohol or drug abuse patient.[facility] HospitalIn the event this information is protected by the Federal Confidentiality of Alcohol and Drug Abuse Patient Records regulations: The Federal rules restrict any use of the information to criminally investigate or prosecute any alcohol or drug abuse patient.[facility] HospitalIn the event this information is protected by the Federal Confidentiality of Alcohol and Drug Abuse Patient Records regulations: The Federal rules restrict any use of the information to criminally investigate or prosecute any alcohol or drug abuse patient.[facility] HospitalIn the event this information is protected by the Federal Confidentiality of Alcohol and Drug Abuse Patient Records regulations: The Federal rules restrict any use of the information to criminally investigate or prosecute any alcohol or drug abuse patient.[facility] HospitalIn the event this information is protected by the Federal Confidentiality of Alcohol and Drug Abuse Patient Records regulations: The Federal rules restrict any use of the information to criminally investigate or prosecute any alcohol or drug abuse patient.[facility] HospitalIn the event this information is protected by the Federal Confidentiality of Alcohol and Drug Abuse Patient Records regulations: The Federal rules restrict any use of the information to criminally investigate or prosecute any alcohol or drug abuse patient.[facility] HospitalIn the event this information is protected by the Federal Confidentiality of Alcohol and Drug Abuse Patient Records regulations: The Federal rules restrict any use of the information to criminally investigate or prosecute any alcohol or drug abuse patient.[facility] HospitalIn the event this information is protected by the Federal Confidentiality of Alcohol and Drug Abuse Patient Records regulations: The Federal rules restrict any use of the information to criminally investigate or prosecute any alcohol or drug abuse patient.[facility] HospitalIn the event this information is protected by the Federal Confidentiality of Alcohol and Drug Abuse Patient Records regulations: The Federal rules restrict any use of the information to criminally investigate or prosecute any alcohol or drug abuse patient.[facility] HospitalIn the event this information is protected by the Federal Confidentiality of Alcohol and Drug Abuse Patient Records regulations: The Federal rules restrict any use of the information to criminally investigate or prosecute any alcohol or drug abuse patient.[facility] HospitalIn the event this information is protected by the Federal Confidentiality of Alcohol and Drug Abuse Patient Records regulations: The Federal rules restrict any use of the information to criminally investigate or prosecute any alcohol or drug abuse patient.[facility] HospitalIn the event this information is protected by the Federal Confidentiality of Alcohol and Drug Abuse Patient Records regulations: The Federal rules restrict any use of the information to criminally investigate or prosecute any alcohol or drug abuse patient.[facility] HospitalIn the event this information is protected by the Federal Confidentiality of Alcohol and Drug Abuse Patient Records regulations: The Federal rules restrict any use of the information to criminally investigate or prosecute any alcohol or drug abuse patient.[facility] HospitalIn the event this information is protected by the Federal Confidentiality of Alcohol and Drug Abuse Patient Records regulations: The Federal rules restrict any use of the information to criminally investigate or prosecute any alcohol or drug abuse patient.[facility] HospitalIn the event this information is protected by the Federal Confidentiality of Alcohol and Drug Abuse Patient Records regulations: The Federal rules restrict any use of the information to criminally investigate or prosecute any alcohol or drug abuse patient.[facility] HospitalIn the event this information is protected by the Federal Confidentiality of Alcohol and Drug Abuse Patient Records regulations: The Federal rules restrict any use of the information to criminally investigate or prosecute any alcohol or drug abuse patient.[facility] HospitalIn the event this information is protected by the Federal Confidentiality of Alcohol and Drug Abuse Patient Records regulations: The Federal rules restrict any use of the information to criminally investigate or prosecute any alcohol or drug abuse patient.[facility] HospitalIn the event this information is protected by the Federal Confidentiality of Alcohol and Drug Abuse Patient Records regulations: The Federal rules restrict any use of the information to criminally investigate or prosecute any alcohol or drug abuse patient.[facility] HospitalIn the event this information is protected by the Federal Confidentiality of Alcohol and Drug Abuse Patient Records regulations: The Federal rules restrict any use of the information to criminally investigate or prosecute any alcohol or drug abuse patient.[facility] HospitalIn the event this information is protected by the Federal Confidentiality of Alcohol and Drug Abuse Patient Records regulations: The Federal rules restrict any use of the information to criminally investigate or prosecute any alcohol or drug abuse patient.[facility] HospitalIn the event this information is protected by the Federal Confidentiality of Alcohol and Drug Abuse Patient Records regulations: The Federal rules restrict any use of the information to criminally investigate or prosecute any alcohol or drug abuse patient.[facility] HospitalIn the event this information is protected by the Federal Confidentiality of Alcohol and Drug Abuse Patient Records regulations: The Federal rules restrict any use of the information to criminally investigate or prosecute any alcohol or drug abuse patient.[facility] HospitalIn the event this information is protected by the Federal Confidentiality of Alcohol and Drug Abuse Patient Records regulations: The Federal rules restrict any use of the information to criminally investigate or prosecute any alcohol or drug abuse patient.[facility] HospitalIn the event this information is protected by the Federal Confidentiality of Alcohol and Drug Abuse Patient Records regulations: The Federal rules restrict any use of the information to criminally investigate or prosecute any alcohol or drug abuse patient.[facility] HospitalIn the event this information is protected by the Federal Confidentiality of Alcohol and Drug Abuse Patient Records regulations: The Federal rules restrict any use of the information to criminally investigate or prosecute any alcohol or drug abuse patient.[facility] HospitalIn the event this information is protected by the Federal Confidentiality of Alcohol and Drug Abuse Patient Records regulations: The Federal rules restrict any use of the information to criminally investigate or prosecute any alcohol or drug abuse patient.[facility] HospitalIn the event this information is protected by the Federal Confidentiality of Alcohol and Drug Abuse Patient Records regulations: The Federal rules restrict any use of the information to criminally investigate or prosecute any alcohol or drug abuse patient.[facility] HospitalIn the event this information is protected by the Federal Confidentiality of Alcohol and Drug Abuse Patient Records regulations: The Federal rules restrict any use of the information to criminally investigate or prosecute any alcohol or drug abuse patient.[facility] HospitalIn the event this information is protected by the Federal Confidentiality of Alcohol and Drug Abuse Patient Records regulations: The Federal rules restrict any use of the information to criminally investigate or prosecute any alcohol or drug abuse patient.[facility] HospitalIn the event this information is protected by the Federal Confidentiality of Alcohol and Drug Abuse Patient Records regulations: The Federal rules restrict any use of the information to criminally investigate or prosecute any alcohol or drug abuse patient.[facility] HospitalIn the event this information is protected by the Federal Confidentiality of Alcohol and Drug Abuse Patient Records regulations: The Federal rules restrict any use of the information to criminally investigate or prosecute any alcohol or drug abuse patient.[facility] HospitalIn the event this information is protected by the Federal Confidentiality of Alcohol and Drug Abuse Patient Records regulations: The Federal rules restrict any use of the information to criminally investigate or prosecute any alcohol or drug abuse patient.[facility] HospitalIn the event this information is protected by the Federal Confidentiality of Alcohol and Drug Abuse Patient Records regulations: The Federal rules restrict any use of the information to criminally investigate or prosecute any alcohol or drug abuse patient.[facility] HospitalIn the event this information is protected by the Federal Confidentiality of Alcohol and Drug Abuse Patient Records regulations: The Federal rules restrict any use of the information to criminally investigate or prosecute any alcohol or drug abuse patient.[facility] HospitalIn the event this information is protected by the Federal Confidentiality of Alcohol and Drug Abuse Patient Records regulations: The Federal rules restrict any use of the information to criminally investigate or prosecute any alcohol or drug abuse patient.[facility] HospitalIn the event this information is protected by the Federal Confidentiality of Alcohol and Drug Abuse Patient Records regulations: The Federal rules restrict any use of the information to criminally investigate or prosecute any alcohol or drug abuse patient.[facility] HospitalIn the event this information is protected by the Federal Confidentiality of Alcohol and Drug Abuse Patient Records regulations: The Federal rules restrict any use of the information to criminally investigate or prosecute any alcohol or drug abuse patient.[facility] HospitalIn the event this information is protected by the Federal Confidentiality of Alcohol and Drug Abuse Patient Records regulations: The Federal rules restrict any use of the information to criminally investigate or prosecute any alcohol or drug abuse patient.[facility] HospitalIn the event this information is protected by the Federal Confidentiality of Alcohol and Drug Abuse Patient Records regulations: The Federal rules restrict any use of the information to criminally investigate or prosecute any alcohol or drug abuse patient.[facility] HospitalIn the event this information is protected by the Federal Confidentiality of Alcohol and Drug Abuse Patient Records regulations: The Federal rules restrict any use of the information to criminally investigate or prosecute any alcohol or drug abuse patient.[facility] HospitalIn the event this information is protected by the Federal Confidentiality of Alcohol and Drug Abuse Patient Records regulations: The Federal rules restrict any use of the information to criminally investigate or prosecute any alcohol or drug abuse patient.[facility] HospitalIn the event this information is protected by the Federal Confidentiality of Alcohol and Drug Abuse Patient Records regulations: The Federal rules restrict any use of the information to criminally investigate or prosecute any alcohol or drug abuse patient.[facility] HospitalIn the event this information is protected by the Federal Confidentiality of Alcohol and Drug Abuse Patient Records regulations: The Federal rules restrict any use of the information to criminally investigate or prosecute any alcohol or drug abuse patient.[facility] HospitalIn the event this information is protected by the Federal Confidentiality of Alcohol and Drug Abuse Patient Records regulations: The Federal rules restrict any use of the information to criminally investigate or prosecute any alcohol or drug abuse patient.[facility] HospitalIn the event this information is protected by the Federal Confidentiality of Alcohol and Drug Abuse Patient Records regulations: The Federal rules restrict any use of the information to criminally investigate or prosecute any alcohol or drug abuse patient.[facility] HospitalIn the event this information is protected by the Federal Confidentiality of Alcohol and Drug Abuse Patient Records regulations: The Federal rules restrict any use of the information to criminally investigate or prosecute any alcohol or drug abuse patient.[facility] HospitalIn the event this information is protected by the Federal Confidentiality of Alcohol and Drug Abuse Patient Records regulations: The Federal rules restrict any use of the information to criminally investigate or prosecute any alcohol or drug abuse patient.[facility] HospitalIn the event this information is protected by the Federal Confidentiality of Alcohol and Drug Abuse Patient Records regulations: The Federal rules restrict any use of the information to criminally investigate or prosecute any alcohol or drug abuse patient.[facility] HospitalIn the event this information is protected by the Federal Confidentiality of Alcohol and Drug Abuse Patient Records regulations: The Federal rules restrict any use of the information to criminally investigate or prosecute any alcohol or drug abuse patient.[facility] HospitalIn the event this information is protected by the Federal Confidentiality of Alcohol and Drug Abuse Patient Records regulations: The Federal rules restrict any use of the information to criminally investigate or prosecute any alcohol or drug abuse patient.[facility] HospitalIn the event this information is protected by the Federal Confidentiality of Alcohol and Drug Abuse Patient Records regulations: The Federal rules restrict any use of the information to criminally investigate or prosecute any alcohol or drug abuse patient.[facility] HospitalIn the event this information is protected by the Federal Confidentiality of Alcohol and Drug Abuse Patient Records regulations: The Federal rules restrict any use of the information to criminally investigate or prosecute any alcohol or drug abuse patient.[facility] HospitalIn the event this information is protected by the Federal Confidentiality of Alcohol and Drug Abuse Patient Records regulations: The Federal rules restrict any use of the information to criminally investigate or prosecute any alcohol or drug abuse patient.[facility] HospitalIn the event this information is protected by the Federal Confidentiality of Alcohol and Drug Abuse Patient Records regulations: The Federal rules restrict any use of the information to criminally investigate or prosecute any alcohol or drug abuse patient.[facility] HospitalIn the event this information is protected by the Federal Confidentiality of Alcohol and Drug Abuse Patient Records regulations: The Federal rules restrict any use of the information to criminally investigate or prosecute any alcohol or drug abuse patient.[facility] HospitalIn the event this information is protected by the Federal Confidentiality of Alcohol and Drug Abuse Patient Records regulations: The Federal rules restrict any use of the information to criminally investigate or prosecute any alcohol or drug abuse patient.[facility] HospitalIn the event this information is protected by the Federal Confidentiality of Alcohol and Drug Abuse Patient Records regulations: The Federal rules restrict any use of the information to criminally investigate or prosecute any alcohol or drug abuse patient.[facility] HospitalIn the event this information is protected by the Federal Confidentiality of Alcohol and Drug Abuse Patient Records regulations: The Federal rules restrict any use of the information to criminally investigate or prosecute any alcohol or drug abuse patient.[facility] HospitalIn the event this information is protected by the Federal Confidentiality of Alcohol and Drug Abuse Patient Records regulations: The Federal rules restrict any use of the information to criminally investigate or prosecute any alcohol or drug abuse patient.[facility] HospitalIn the event this information is protected by the Federal Confidentiality of Alcohol and Drug Abuse Patient Records regulations: The Federal rules restrict any use of the information to criminally investigate or prosecute any alcohol or drug abuse patient.[facility] HospitalIn the event this information is protected by the Federal Confidentiality of Alcohol and Drug Abuse Patient Records regulations: The Federal rules restrict any use of the information to criminally investigate or prosecute any alcohol or drug abuse patient.[facility] HospitalIn the event this information is protected by the Federal Confidentiality of Alcohol and Drug Abuse Patient Records regulations: The Federal rules restrict any use of the information to criminally investigate or prosecute any alcohol or drug abuse patient.[facility] HospitalIn the event this information is protected by the Federal Confidentiality of Alcohol and Drug Abuse Patient Records regulations: The Federal rules restrict any use of the information to criminally investigate or prosecute any alcohol or drug abuse patient.[facility] Reason for Visit (unrecogniz ed section [...] US Specialty Diagnoses / Procedures Referred By Kirsty t Referred To Contact US IMAGING Diagnoses Alkaline phosphatase elevation Procedures US ABD RT UPPER QUADRANT US ABDOMINAL REAL TIME W/IMAGE LIMITED Atul Harvey L, DO [address] [place] [address] [facility] [place] [id number] Referral ID Status Reason Start Date Expiration Date V isits Requested Visits Authorized [id number] Closed Auto-Generate d Referral 09/24/2022 10/24/2023 1 1 Reason Onset Date Comments community monitoring outreach 09/02/2023 Mo nthly cdm call Reason Onset Date Comments community monitoring outreach 09/30/2023 Mo nthly cdm call Reason Onset Date Comments community monitoring outreaach 11/16/2023 M onthly cdm call Reason Onset Date Comments Refill Request 11/18/2023 Reason Onset Date Comments community monitoring outreach 12/14/2023 Mo nthly cdm call Reason Onset Date Comments Refill Request 12/14/2023 Reason Onset Date Comments community monitoring outreach 01/11/2024 Mo nthly cdm call Reason Onset Date Comments Refill Request 01/14/2024 Specialty Diagnoses / Procedures Referred By Kirsty t Referred To Contact US IMAGING Diagnoses Elevated LFTs Procedures US ABD RIGHT UPPER QUADRANT US ABDOMINAL REAL TIME W/IMAGE LIMITED Atul Harvey L, DO [address] [place] [address] [place] [address] Referral ID Status Reason Start Date Expiration Date V isits Requested Visits Authorized [id number] Closed Auto-Generate d Referral 02/17/2024 03/18/2025 1 [...] breast Specialty Diagnoses / Procedures Referred By Kirsty t Referred To Contact US IMAGING Diagnoses Fatty liver Procedures US ABD RIGHT UPPER QUADRANT US ABDOMINAL REAL TIME W/IMAGE LIMITED Atul Harvey eNda, DO [address] [place] [address] [place] [address] Referral ID Status Reason Start Date Expiration Date V isits Requested Visits Authorized [id number] Closed Auto-Generate d Referral 02/23/2024 03/24/2025 1 [...] Pain Specialty Diagnoses / Procedures Referred By Kirsty raza Referred To Contact Orthopedics Diagnoses Left wrist pain Procedures CONSULT TO ORTHOPAEDICS OFFICE/OUTPATIENT NEW HIGH MDM 60 MINUTES Atul Harvey DO [address] [place] [address] Referral ID Status Reason Start Date Expiration Date V isits Requested Visits Authorized [id number] Closed PCP Requested Referral 08/22/2024 08/22/2025 1 1 Reason Onset Date Comments Refill Request 10/20/2024 Reason Onset Date Comments Transition Of Care 10/24/2024 [facility], Discharge 10/18/24 Reason Comments Hospital Follow Up [facility] RSV & afib, disc harged 10/18 Reason Comments Patient Update Patient Question Reason Comments Follow Up was recently at [facility] for RSV, needs med refills, new dx of a fib Reason Onset Date Comments Transition Of Care 11/07/2024 [facility], Follow-up Day 20 Reason Comments Pain, Sinus [...] Care Teams (unrecognized sec tion and content) Quantitative Manager Relationship Specialty Start Date End Date Atul Harvey DO [address] [place], [place] [address] PCP - General Family Practice 12/15/16 Quantitative Manager Relationship Specialty Start Date End Date Atul Harvey DO [address] [place] [address] PCP - General Family Practice 12/15/16 Katja Lo, RN [address] [facility] [facility] [address] [place] [address] Angio Technologist 02/06/22 Quantitative Manager Relationship Specialty Start Date End Date Atul Harvey, DO [address] [place] [address] PCP - General Family Practice 12/15/16 Katja Lo, RN [address] [facility] [place] [address] Angio Technologist 02/06/22 Quantitative Manager Relationship Specialty Start Date End Date Atul Harvey, DO [address] [place] [address] PCP - General Family Practice 12/15/16 Katja Lo RN [address] [place] [address] Angio Technologist 02/06/22 Quantitative Manager Relationship Specialty Start Date End Date Atul Harvey, DO [address] [place] [address] PCP - General Family Practice 12/15/16 Katja Lo, JOSE [address] [place] [address] Angio Technologist 02/06/22 Quantitative Manager Relationship Specialty Start Date End Date Atul Harvey, DO [address] [facility] [place] [address] PCP - General Family Practice 12/15/16 Katja Lo, RN [address] [place] [address] Angio Technologist 02/06/22 Quantitative Manager Relationship Specialty Start Date End Date Atul Harvey, DO [address] [place] [address] PCP - General Family Practice 12/15/16 Katja Lo, RN [address] [facility] [place] [address] Angio Technologist 02/06/22 Quantitative Manager Relationship Specialty Start Date End Date Atul Harvey, DO [address] [facility] [place] [address] PCP - General Family Practice 12/15/16 Katja Lo, RN [address] [place] [address] Angio Technologist 02/06/22 Quantitative Manager Relationship Specialty Start Date End Date Atul Harvey, DO [address] [facility] [place] [address] PCP - General Family Practice 12/15/16 Katja Lo, RN [address] [place] [address] Angio Technologist 02/06/22 Quantitative Manager Relationship Specialty Start Date End Date Atul Harvey, DO [address] [facility] [place] [address] PCP - General Family Medicine 12/15/16 Katja Lo, RN [address] [place] [address] Angio Technologist 02/06/22 Quantitative Manager Relationship Specialty Start Date End Date Atul Harvey, DO [address] [facility] [place] [address] PCP - General Family Medicine 12/15/16 Katja Lo, RN [address] [place] [address] Angio Technologist 02/06/22 Quantitative Manager Relationship Specialty Start Date End Date Atul Harvey, DO [address] [facility] [place] [address] PCP - General Family Medicine 12/15/16 Katja Lo, RN [address] [place] [address] Angio Technologist 02/06/22 Quantitative Manager Relationship Specialty Start Date End Date Atul Harvey, DO [address] [facility] [place] [address] PCP - General Family Medicine 12/15/16 Katja Lo, RN [address] [place] [address] Angio Technologist 02/06/22 Quantitative Manager Relationship Specialty Start Date End Date Atul Harvey, DO [address] [facility] [place] [address] PCP - General Family Medicine 12/15/16 Katja Lo, RN [address] [place] [address] Angio Technologist 02/06/22 Quantitative Manager Relationship Specialty Start Date End Date Atul Harvey, DO [address] [facility] [place] [address] PCP - General Family Medicine 12/15/16 Katja Lo, JOSE [address] [place] [address] Angio Technologist 02/06/22 Quantitative Manager Relationship Specialty Start Date End Date Atul Harvey, DO [address] [facility] [place] [address] PCP - General Family Medicine 12/15/16 Katja Lo, RN [address] [place] [address] Angio Technologist 02/06/22 Quantitative Manager Relationship Specialty Start Date End Date Atul Harvey, DO [address] [facility] [place] [address] PCP - General Family Medicine 12/15/16 Katja Lo, RN [address] [place] [address] Angio Technologist 02/06/22 Quantitative Manager Relationship Specialty Start Date End Date Atul Harvey, DO [address] [facility] [place] [address] PCP - General Family Medicine 12/15/16 Katja Lo, RN [address] [place] [place] [address] Angio Technologist 02/06/22 Quantitative Manager Relationship Specialty Start Date End Date Atul Harvey, DO [address] [facility] [place] [address] PCP - General Family Medicine 12/15/16 Katja Lo, RN [address] [place] [address] Angio Technologist 02/06/22 Quantitative Manager Relationship Specialty Start Date End Date Atul Harvey, DO [address] [facility] [place] [address] PCP - General Family Medicine 12/15/16 Katja Lo, RN [address] [place] [address] Angio Technologist 02/06/22 Quantitative Manager Relationship Specialty Start Date End Date Atul Harvey, DO [address] [facility] [place] [address] PCP - General Family Medicine 12/15/16 Katja Lo, RN [address] [place] [address] Angio Technologist 02/06/22 Quantitative Manager Relationship Specialty Start Date End Date Atul Harvey, DO [address] [facility] [place] [address] PCP - General Family Medicine 12/15/16 Katja Lo, RN [address] [place] [address] Angio Technologist 02/06/22 Quantitative Manager Relationship Specialty Start Date End Date Atul Harvey, DO [address] [facility] [place] [address] PCP - General Family Medicine 12/15/16 Katja Lo, RN [address] [place] [address] Angio Technologist 02/06/22 Quantitative Manager Relationship Specialty Start Date End Date Atul Harvey, DO [address] [facility] [place] [address] PCP - General Family Medicine 12/15/16 Katja Lo, RN [address] [place] [address] Angio Technologist 02/06/22 Team Status: Active Member Role Status Dates Dr. Atul Harvey , Family Provider Active Dr. Atul Harvey DO Primary Care Provider Active Team Status: Inactive Member Role Status Dates Dr. Atul Harvey , Primary Care Provider Active Dr. Kimmie Hussein MD Attending Provider, Referring Provider Active Quantitative Manager Relationship Specialty Start Date End Date Atul Harvey, DO [address] [facility] [place] [address] PCP - General Family Medicine 12/15/16 Katja Lo, RN [address] [place] [address] Angio Technologist 02/06/22 Quantitative Manager Relationship Specialty Start Date End Date Atul Harvey, DO [address] [facility] [place] [address] PCP - General Family Medicine 12/15/16 Katja Lo, JOSE [address] [place] [address] Angio Technologist 02/06/22 Quantitative Manager Relationship Specialty Start Date End Date Atul Harvey, DO [address] [facility] [place] [address] PCP - General Family Medicine 12/15/16 Katja Lo, RN [address] [place] [address] Angio Technologist 02/06/22 Quantitative Manager Relationship Specialty Start Date End Date Autl Harvey, DO [address] [facility] [place] [address] PCP - General Family Medicine 12/15/16 Katja Lo, RN [address] [place] [address] Angio Technologist 02/06/22 Quantitative Manager Relationship Specialty Start Date End Date Atul Harvey, DO [address] [place] [address] PCP - General Family Medicine 12/15/16 Mitesh Mccabe, RN [address] [facility] [address] Angio Technologist 02/27/23 Quantitative Manager Relationship Specialty Start Date End Date Atul Harvey, DO [address] [place] [address] PCP - General Family Medicine 12/15/16 Mitesh Mccabe, RN [address] [facility] [place] [address] Angio Technologist 02/27/23 Quantitative Manager Relationship Specialty Start Date End Date Atul Harvey, DO [address] [place] [address] PCP - General Family Medicine 12/15/16 Mitesh Mccabe, RN [address] [place] [address] Angio Technologist 02/27/23 Quantitative Manager Relationship Specialty Start Date End Date Atul Harvey, DO [address] [place] [address] PCP - General Family Medicine 12/15/16 Mitesh Mccabe, RN [address] [facility] [place] [address] Angio Technologist 02/27/23 Quantitative Manager Relationship Specialty Start Date End Date Atul Harvey, DO [address] [place] [address] PCP - General Family Medicine 12/15/16 Katja Lo, JOSE [address] [place] [address] Angio Technologist 02/06/2202/09 Mitesh Mccabe, RN [address] [facility] [place] [address] Angio Technologist 02/27/23 Quantitative Manager Relationship Specialty Start Date End Date Atul Harvey DO [address] [facility] [place] [address] PCP - General Family Medicine 12/15/16 Mitesh Mccabe, RN [address] [facility] [place] [address] Angio Technologist 02/27/23 Quantitative Manager Relationship Specialty Start Date End Date Atul Harvey DO [address] [facility] [place] [address] PCP - General Family Medicine 12/15/16 Mitesh Mccabe, RN [address] [facility] [place] [address] Angio Technologist 02/27/23 Quantitative Manager Relationship Specialty Start Date End Date Atul Harvey DO [address] [facility] [place] [address] PCP - General Family Medicine 12/15/16 Mitesh Mccabe, RN [address] [place] [address] Angio Technologist 02/27/23 Quantitative Manager Relationship Specialty Start Date End Date Atul Harvey DO [address] [facility] [place] [address] PCP - General Family Medicine 12/15/16 Mitesh Mccabe, RN [address] [place] [address] Angio Technologist 02/27/23 Quantitative Manager Relationship Specialty Start Date End Date Atul Harvey DO [address] [facility] [place] [address] PCP - General Family Medicine 12/15/16 Mitesh Mccabe, RN [address] [facility] [place] [address] Angio Technologist 02/27/23 Quantitative Manager Relationship Specialty Start Date End Date Atul Harvey DO [address] [facility] [place] [address] PCP - General Family Medicine 12/15/16 Mitesh Mccabe, RN [address] [place] [address] Angio Technologist 02/27/23 Quantitative Manager Relationship Specialty Start Date End Date Atul Harvey DO [address] [facility] [place] [address] PCP - General Family Medicine 12/15/16 Mitesh Mccabe, RN [address] [place] [address] Angio Technologist 02/27/23 Quantitative Manager Relationship Specialty Start Date End Date Atul Harvey DO [address] [place] [address] PCP - General Family Medicine 12/15/16 Mitesh Mccabe, RN [address] [place] [address] Angio Technologist 02/27/23 Quantitative Manager Relationship Specialty Start Date End Date Atul Harvey DO [address] [facility] [place] [address] PCP - General Family Medicine 12/15/16 Katja Lo, JOSE [address] [place] [address] Angio Technologist 02/06/2202/09 Quantitative Manager Relationship Specialty Start Date End Date Atul Harvey DO [address] [facility] [place] [address] PCP - General Family Medicine 12/15/16 Katja Lo, RN [address] [place] [address] Angio Technologist 02/06/2202/09 Quantitative Manager Relationship Specialty Start Date End Date Atul Harvey DO [address] [facility] [place] [address] PCP - General Family Medicine 12/15/16 Mitesh Mccabe, RN [address] [place] [address] Angio Technologist 02/27/23 Quantitative Manager Relationship Specialty Start Date End Date Atul Harvey DO [address] [facility] [place] [address] PCP - General Family Medicine 12/15/16 Mitesh Mccabe, RN [address] [place] [address] Angio Technologist 02/27/23 Quantitative Manager Relationship Specialty Start Date End Date Atul Harvey, [address] [facility] [place] [address] PCP - General Family Medicine 12/15/16 Mitesh Mccabe, RN [address] [place] [place] [address] Angio Technologist 02/27/23 Quantitative Manager Relationship Specialty Start Date End Date Atul Harvey DO [address] [facility] [place] [address] PCP - General Family Medicine 12/15/16 Mitesh Mccabe, RN [address] [facility] [place] [address] Angio Technologist 02/27/23 Quantitative Manager Relationship Specialty Start Date End Date Atul Harvey, [address] [facility] [place] [address] PCP - General Family Medicine 12/15/16 Mitesh Mccabe, RN [address] [place] [address] Angio Technologist 02/27/23 Quantitative Manager Relationship Specialty Start Date End Date Atul Harvey, [address] [facility] [place] [address] PCP - General Family Medicine 12/15/16 Mitesh Mccabe, RN [address] [place] [address] Angio Technologist 02/27/23 Quantitative Manager Relationship Specialty Start Date End Date Atul Harvey DO [address] [facility] [place] [address] PCP - General Family Medicine 12/15/16 Mitesh Mccabe, RN [address] [place] [address] Angio Technologist 02/27/23 Quantitative Manager Relationship Specialty Start Date End Date Atul Harvey DO [address] [facility] [place] [address] PCP - General Family Medicine 12/15/16 Mitesh Mccabe, RN [address] [place] [address] Angio Technologist 02/27/23 Quantitative Manager Relationship Specialty Start Date End Date Atul Harvey DO [address] [facility] [place] [address] PCP - General Family Medicine 12/15/16 Mitesh Mccabe, RN [address] [place] [address] Angio Technologist 02/27/23 Quantitative Manager Relationship Specialty Start Date End Date Atul Harvey DO [address] [facility] [place] [address] PCP - General Family Medicine 12/15/16 Mitesh Mccabe, RN [address] [place] [address] Angio Technologist 02/27/23 Quantitative Manager Relationship Specialty Start Date End Date Atul Harvey DO [address] [facility] [place] [address] PCP - General Family Medicine 12/15/16 Mitesh Mccabe, RN [address] [place] [address] Angio Technologist 02/27/23 Quantitative Manager Relationship Specialty Start Date End Date Atul Harvey DO [address] [facility] [place] [address] PCP - General Family Medicine 12/15/16 Mitesh Mccabe, RN [address] [place] [address] Angio Technologist 02/27/23 Quantitative Manager Relationship Specialty Start Date End Date Atul Harvey DO [address] [facility] [place] [address] PCP - General Family Medicine 12/15/16 Mitesh Mccabe, RN [address] [place] [address] Angio Technologist 02/27/23 Quantitative Manager Relationship Specialty Start Date End Date Atul Harvey DO [address] [facility] [place] [address] PCP - General Family Medicine 12/15/16 Mitesh Mccabe, RN [address] [place] [address] Angio Technologist 02/27/23 Quantitative Manager Relationship Specialty Start Date End Date Atul Harvey, [address] [facility] [place] [address] PCP - General Family Medicine 12/15/16 Mitesh Mccabe, RN [address] [place] [address] Angio Technologist 02/27/23 Quantitative Manager Relationship Specialty Start Date End Date Atul Harvey, [address] [facility] [place] [address] PCP - General Family Medicine 12/15/16 Mitesh Mccabe, RN [address] [place] [address] Angio Technologist 02/27/23 Quantitative Manager Relationship Specialty Start Date End Date Atul Harvey, [address] [facility] [place] [address] PCP - General Family Medicine 12/15/16 Mitesh Mccabe, RN [address] [place] [address] Angio Technologist 02/27/23 Quantitative Manager Relationship Specialty Start Date End Date Atul Harvey DO [address] [facility] [place] [address] PCP - General Family Medicine 12/15/16 Quantitative Manager Relationship Specialty Start Date End Date Atul Harvey, [address] [facility] [place] [address] PCP - General Family Medicine 12/15/16 Mitesh Mccabe, RN [address] [place] [address] Angio Technologist 02/27/23 Quantitative Manager Relationship Specialty Start Date End Date Atul Harvey, [address] [facility] [place] [address] PCP - General Family Medicine 12/15/16 Mitesh Mccabe, RN [address] [place] [address] Angio Technologist 02/27/23 Quantitative Manager Relationship Specialty Start Date End Date Atul Harvey, [address] [facility] [place] [address] PCP - General Family Medicine 12/15/16 Mitesh Mccabe, RN [address] [place] [address] Angio Technologist 02/27/23 Quantitative Manager Relationship Specialty Start Date End Date Atul Harvey DO [address] [facility] [place] [address] PCP - General Family Medicine 12/15/16 Mitesh Mccabe RN [address] [place] [address] Angio Technologist 02/27/23 Quantitative Manager Relationship Specialty Start Date End Date Atul Harvey DO [address] [facility] [place] [address] PCP - General Family Medicine 12/15/16 Mitesh Mccabe RN [address] [place] [address] Angio Technologist 02/27/2309/18/24 Milana Armijo, CENTRAL LAB TECHNICIAN.EPOXY SPECIALIST [address] [facility] [place] [address] Supervisory [facility] 09/18/24 Catalina Jauregui, CENTRAL LAB TECHNICIAN.EPOXY SPECIALIST [address] [facility] [place] [address] Supervisory [facility] 09/18/24 Quantitative Manager Relationship Specialty Start Date End Date Atul Harvey DO [address] [facility] [place] [address] PCP - General Family Medicine 12/15/16 Milana Armijo, CENTRAL LAB TECHNICIAN.EPOXY SPECIALIST [address] [facility] [place] [address] Supervisory [facility] 09/18/24 Catalina Jauregui, CENTRAL LAB TECHNICIAN.EPOXY SPECIALIST [address] [facility] [place] [address] Supervisory Lifeguard [facility] 09/18/24 Quantitative Manager Relationship Specialty Start Date End Date Atul Harvey DO [address] [place] [address] PCP - General Family Medicine 12/15/16 Milana Armijo, CENTRAL LAB TECHNICIAN.EPOXY SPECIALIST [address] [place] [address] Supervisory Lifeguard [facility] 09/18/24 RamírezCatalina, CENTRAL LAB TECHNICIAN.EPOXY SPECIALIST [address] [place] [address] [facility] 09/18/24 Quantitative Manager Relationship Specialty Start Date End Date Atul Harvey DO [address] [place] [address] PCP - General Family Medicine 12/15/16 Milana Armijo, CENTRAL LAB TECHNICIAN.EPOXY SPECIALIST [address] [place] [address] [facility] 09/18/24 RamírezCatalina, CENTRAL LAB TECHNICIAN.EPOXY SPECIALIST [address] [place] [address] [facility] 09/18/24 Quantitative Manager Relationship Specialty Start Date End Date Atul Harvey DO [address] [place] [address] PCP - General Family Medicine 12/15/16 Milana Armijo, CENTRAL LAB TECHNICIAN.EPOXY SPECIALIST [address] [place] [address] [facility] 09/18/24 RamírezCatalina, CENTRAL LAB TECHNICIAN.EPOXY SPECIALIST [address] [facility] [place] [address] [facility] 09/18/24 Kirstin Reyes, RN [address] [place] [address] Primary Care Diesel Engine Operator 10/24/24 Quantitative Manager Relationship Specialty Start Date End Date Atul Harvey DO [address] [facility] [place] [address] PCP - General Family Medicine 12/15/16 Milana Armijo, CENTRAL LAB TECHNICIAN.EPOXY SPECIALIST [address] [facility] [place] [address] [facility] 09/18/24 [facility], CENTRAL LAB TECHNICIAN.EPOXY SPECIALIST [address] [facility] [place] [address] [facility] 09/18/24 Kirstin Reyes, JOSE [address] [place] [address] Primary Care Diesel Engine Operator 10/24/24 Quantitative Manager Relationship Specialty Start Date End Date Atul Harvey DO [address] [facility] [place] [address] PCP - General Family Medicine 12/15/16 Milana Armijo, CENTRAL LAB TECHNICIAN.EPOXY SPECIALIST [address] [facility] [place] [address] [facility] 09/18/24 RamírezCatalina, CENTRAL LAB TECHNICIAN.EPOXY SPECIALIST [address] [facility] [place] [address] Supervisory Lifeguard [facility] 09/18/24 Kirstin Reyes, RN [address] [place] [address] Primary Care Diesel Engine Operator 10/24/24 Quantitative Manager Relationship Specialty Start Date End Date Atul Harvey DO [address] [facility] [place] [address] PCP - General Family Medicine 12/15/16 Milana Armijo, CENTRAL LAB TECHNICIAN.EPOXY SPECIALIST [address] [facility] [place] [address] [facility] 09/18/24 [facility], CENTRAL LAB TECHNICIAN.EPOXY SPECIALIST [address] [facility] [place] [address] [facility] 09/18/24 Kirstin Reyes, JOSE [address] [place] [address] Primary Care Diesel Engine Operator 10/24/24 Quantitative Manager Relationship Specialty Start Date End Date Atul Harvey DO [address] [facility] [place] [address] PCP - General Family Medicine 12/15/16 Milana Armijo, CENTRAL LAB TECHNICIAN.EPOXY SPECIALIST [address] [facility] [place] [address] [facility] 09/18/24 RamírezCatalina, CENTRAL LAB TECHNICIAN.EPOXY SPECIALIST [address] [facility] [place] [address] [facility] 09/18/24 Kirstin Reyes, JOSE [address] [place] [address] Primary Care Diesel Engine Operator 10/24/24 Quantitative Manager Relationship Specialty Start Date End Date Atul Harvey DO [address] [facility] [place] [address] PCP - General Family Medicine 12/15/16 Milana Armijo, CENTRAL LAB TECHNICIAN.EPOXY SPECIALIST [address] [facility] [place] [address] [facility] 09/18/24 [facility], CENTRAL LAB TECHNICIAN.EPOXY SPECIALIST [address] [facility] [place] [address] [facility] 09/18/24 Kirstin Reyes, RN [address] [place] [address] Primary Care Diesel Engine Operator 10/24/24 Quantitative Manager Relationship Specialty Start Date End Date Atul Harvey DO [address] [facility] [place] [address] PCP - General Family Medicine 12/15/16 Milana Armijo, CENTRAL LAB TECHNICIAN.EPOXY SPECIALIST [address] [place] [address] [facility] 09/18/24 [facility], CENTRAL LAB TECHNICIAN.EPOXY SPECIALIST [address] [facility] [place] [address] [facility] 09/18/24 Kirstin Reyes, JOSE [address] [place] [address] Primary Care Diesel Engine Operator 10/24/24 Quantitative Manager Relationship Specialty Start Date End Date Atul Harvey DO [address] [facility] [place] [address] PCP - General Family Medicine 12/15/16 Milana Armijo, CENTRAL LAB TECHNICIAN.EPOXY SPECIALIST [address] [place] [address] [facility] 09/18/24 Catalina Jauregui, CENTRAL LAB TECHNICIAN.EPOXY SPECIALIST [address] [place] [address] [facility] 09/18/24 Kirstin Reyes, JOSE [address] [place] [id number] Primary Care Diesel Engine Operator 10/24/24 11/18/24 Quantitative Manager Relationship Specialty Start Date End Date Atul Harvey DO [address] [place] [address] PCP - General Family Medicine 12/15/16 Milana Armijo, CENTRAL LAB TECHNICIAN.EPOXY SPECIALIST [address] [place] [address] [facility] 09/18/24 Catalina Jauregui, CENTRAL LAB TECHNICIAN.EPOXY SPECIALIST [address] [place] [address] [facility] 09/18/24 Quantitative Manager Relationship Specialty Start Date End Date Atul Harvey DO [address] [place] [address] PCP - General Family Medicine 12/15/16 Milana Armijo, CENTRAL LAB TECHNICIAN.EPOXY SPECIALIST [address] [place] [address] [facility] 09/18/24 Catalina Jauregui, CENTRAL LAB TECHNICIAN.EPOXY SPECIALIST [address] [place] [address] [facility] 09/18/24 Quantitative Manager Relationship Specialty Start Date End Date Atul Harvey DO [address] [place], [place] [address] PCP - General Family Medicine 12/15/16 Milana Armijo, CENTRAL LAB TECHNICIAN.EPOXY SPECIALIST [address] [place], [place] [address] [facility] 09/18/24 RamírezCatalina, CENTRAL LAB TECHNICIAN.EPOXY SPECIALIST [address] [place] [address] [facility] 09/18/24 Quantitative Manager Relationship Specialty Start Date End Date Atul Harvey DO [address] [place] [address] PCP - General [facility] Medicine 12/15/16 Catalina Jauregui, CENTRAL LAB TECHNICIAN.EPOXY SPECIALIST [address] [place], [place] [address] [facility] 09/18/24 Team Status: Active Member Role Status [...] Provider Active Start: October 12, 2024 Dr. Yrui Meier DO Emergency Provider Active Start: October [...] Active Star t: October 13, 2024 Dr. Rasheed Ledezma MD Attending Provider Active Start: October 13, 2024 Dr. Rasheed Ledezma MD Other Provider Active Star t: October 13, 2024 Team Status: Active Member Role Status Dates Dr. Atul Harvey DO Primary Care Provider Active Start: October 13, 2024 Dr. Mario Hagen MD Attending Provider [...] January 06, 2025 End: January 06, 2025 Quantitative Manager Relationship Specialty Start Date End Date Atul Harvey DO [address] [place] [address] PCP - General Family Medicine 12/15/16 Catalina Jauregui, CENTRAL LAB TECHNICIAN.EPOXY SPECIALIST [address] [place] [address] [facility] 09/18/24 Quantitative Manager Relationship Specialty Start Date End Date Atul Harvey DO [address] [place] [address] PCP - General Family Medicine 12/15/16 Milana Armijo, CENTRAL LAB TECHNICIAN.EPOXY SPECIALIST [address] [facility] [place] [address] Super[facility] 09/18/24 12/30/24 Catalina Jauregui, CENTRAL LAB TECHNICIAN.EPOXY SPECIALIST [address] [facility] [place] [address] [facility] Quantitative Manager Relationship Specialty Start Date End Date Atul Harvey DO [address] [place] [address] PCP - General Family Medicine 12/15/16 RamírezCatalina, CENTRAL LAB TECHNICIAN.EPOXY SPECIALIST [address] [place] [address] Supervisory Lifeguard [facility] 09/18/24 Quantitative Manager Relationship Specialty Start Date End Date Atul Harvey DO [address] [place] [address] PCP - General Family Medicine 12/15/16 RamírezCatalina, CENTRAL LAB TECHNICIAN.EPOXY SPECIALIST [address] [place] [address] Supervisory Lifeguard [facility] 09/18/24 Quantitative Manager Relationship Specialty Start Date End Date Atul Harvey DO [address] [facility] [place] [address] PCP - General Family Medicine 12/15/16 RamírezCatalina, CENTRAL LAB TECHNICIAN.EPOXY SPECIALIST [address] [place] [address] Supervisory Lifeguard [facility] 09/18/24 Quantitative Manager Relationship Specialty Start Date End Date Atul Harvey DO [address] [place] [address] PCP - General Family Medicine 12/15/16 RamírezCatalina, CENTRAL LAB TECHNICIAN.EPOXY SPECIALIST [address] [place] [address] Supervisory Lifeguard [facility] 09/18/24 Quantitative Manager Relationship Specialty Start Date End Date Atul Harvey DO [address] [facility] [place] [address] PCP - General Family Medicine 12/15/16 Catalina Jauregui, ALLISON.EPOXY SPECIALIST [address] [place] [address] Supervisory Lifeguard [facility] 09/18/24 Quantitative Manager Relationship Specialty Start Date End Date Atul Harvey DO [address] [place] [address] PCP - General Family Medicine 12/15/16 Catalina Jauregui, ALLISON.EPOXY SPECIALIST [address] [place] [address] Supervisory Lifeguard [facility] 09/18/24 Team Status: Inactive Member Role Status [...] February 13, 2025 End: February 13, 2025 Quantitative Manager Relationship Specialty Start Date End Date Atul Harvey DO [address] [place] [address] PCP - General Family Medicine 12/15/16 [facility] CENTRAL LAB TECHNICIAN.EPOXY SPECIALIST [address] [place] [address] [facility] 09/18/24 Quantitative Manager Relationship Specialty Start Date End Date Atul Harvey DO [address] [place], [place] [address] PCP - General Family Medicine 12/15/16 [facility] Catalina, CENTRAL LAB TECHNICIAN.EPOXY SPECIALIST [address] [place] [address] [facility] 09/18/24 Pinky Welsh, CENTRAL LAB TECHNICIAN.EPOXY SPECIALIST [address] [place], [place] [address] [facility] 03/27/25 Team Status: Inactive Member Role Status Dates Dr. Atul Harvey DO Primary Care Provider Active Start: January 17, 2025 End: January 17, 2025 Lori Nuñez GENERAL OPHTHALMOLOGIST, GENERAL OPHTHALMOLOGIST-C Attending Provider Active Start: January 17, 2025 End: January 17, 2025 Team Status: Inactive Member Role Status Dates Dr. Atul Harvey DO Primary Care Provider Active Start: January 18, 2025 End: January 18, 2025 Lori Nuñez NP, GENERAL OPHTHALMOLOGIST-C Attending Provider Active Start: January 18, 2025 End: January 18, 2025 Team Status: Inactive Member Role Status Dates Dr. Atul Harvey DO Primary Care Provider Active Start: January 19, 2025 End: January 19, 2025 Lori Nuñez GENERAL OPHTHALMOLOGIST, GENERAL OPHTHALMOLOGIST-C Attending Provider Active Start: January 19, 2025 End: January 19, 2025 Team Status: Inactive Member Role Status Dates Dr. Atul Harvey DO Primary Care Provider Active Start: January 24, 2025 End: January 24, 2025 Dr. Tate Reynolds MD Attending Provider Active Start: January 24, 2025 End: January 24, 2025 Quantitative Manager Relationship Specialty Start Date End Date Atul Harvey DO [address] [place] [address] PCP - General Family Medicine 12/15/16 [facility] CENTRAL LAB TECHNICIAN.EPOXY SPECIALIST [address] [place] [address] Supervisory Lifeguard [facility] 09/18/24 Pinky Welsh, CENTRAL LAB TECHNICIAN.EPOXY SPECIALIST [address] [place] [address] Supervisory Lifeguard [facility] 03/27/25 Quantitative Manager Relationship Specialty Start Date End Date Atul Harvey DO [address] [place] [address] PCP - General Family Medicine 12/15/16 RamírezCatalina, CENTRAL LAB TECHNICIAN.EPOXY SPECIALIST [address] [place] [address] [facility] 09/18/24 Pinky Welsh, CENTRAL LAB TECHNICIAN.EPOXY SPECIALIST [address] [place] [address] [facility] 03/27/25 Quantitative Manager Relationship Specialty Start Date End Date Atul Harvey DO [address] [place] [address] PCP - General Family Medicine 12/15/16 Catalina Jauregui, CENTRAL LAB TECHNICIAN.EPOXY SPECIALIST [address] [place] [address] Supervisory [facility] 09/18/24 Pinky Welsh, CENTRAL LAB TECHNICIAN.EPOXY SPECIALIST [address] [place] [address] Supervisory Lifeguard [facility] 03/27/25 Quantitative Manager Relationship Specialty Start Date End Date Atul Harvey DO [address] [place] [address] PCP - General Family Medicine 12/15/16 RamírezCatalina, CENTRAL LAB TECHNICIAN.EPOXY SPECIALIST [address] [place] [address] Supervisory [facility] 09/18/24 Pinky Welsh, CENTRAL LAB TECHNICIAN.EPOXY SPECIALIST [address] [place] [address] [facility] 03/27/25 Quantitative Manager Relationship Specialty Start Date End Date Atul Harvey DO [address] [place] [address] PCP - General Family Medicine 12/15/16 Catalina Jauregui, CENTRAL LAB TECHNICIAN.EPOXY SPECIALIST [address] [place] [address] Supervisory Lif[facility]ard [facility] 09/18/24 Pinky Welsh, CENTRAL LAB TECHNICIAN.EPOXY SPECIALIST [address] [place] [address] [facility] 03/27/25 Quantitative Manager Relationship Specialty Start Date End Date Atul Harvey DO [address] [place], [place] [address] PCP - General Family Medicine 12/15/16 Catalina Jauregui, CENTRAL LAB TECHNICIAN.EPOXY SPECIALIST [address] [place], [place] [address] [facility] 09/18/24 Pinky Welsh, CENTRAL LAB TECHNICIAN.EPOXY SPECIALIST [address] [place], [place] [id number] [facility] 03/27/25 Team Status: Active Member Role/Relationship Status [...] May 08, 2025 End: May 08, 2025 Quantitative Manager Relationship Specialty Start Date End Date Atul Harvey DO [address] [place] [address] PCP - General Family Medicine 12/15/16 Catalina Jauregui, CENTRAL LAB TECHNICIAN.EPOXY SPECIALIST [address] [place] [address] Supervisory Lifeguard [facility] 09/18/24 Pinky Welsh, CENTRAL LAB TECHNICIAN.EPOXY SPECIALIST [address] [place] [address] Supervisory Lifeguard [facility] 03/27/25 Goals (unrecognized section and content) Goals [...] section and content) DATE CREATED AUTHOR 04/18/2023 [facility] DATE CREATED AUTHOR AUTHOR'S ORGANIZ ATION 01/18/2025 [facility] DATE CREATED AUTHOR AUTHOR'S ORGANIZ ATION 06/02/2025 [facility] DATE CREATED AUTHOR AUTHOR'S ORGANIZ ATION 06/13/2025 [facility] FOR RECORDS PERTAINING TO PATIENTS WHO ARE [...] BE BASED ON THE PRIMARY CLINICAL RECORDS. [facility] [employer] [facility]. provides no warranty or guarantee of the accuracy or completeness of information in this document.
--- NOTE | 2025-06-13 02:31 | ED.RN ---
pt agitated and uncooperative w/care. pulling at ivs, amrie cath, an monitoring wires. unable to redirect or distract pt. pt attempting to get out of bed by flipping over the side rails of the bed. unable to follow dierctions. notified. meds & soft restraints ordered for pt's safety.
[2025-06-13 02:35] LABS: Allen Test Positive; Base Excess -5 mmol/L (-2 to +2); FI02 6.0; PO2 77 mmHG (75-100); SITE R Radial; SO2 96 % (95-99)
--- NOTE | 2025-06-13 03:38 | PCM.RX.CS ---
Consult Antibiotic Management Pharmacy has been consulted to manage selected antibiotic: Vancomycin Type of Intervention Type of Consult: New start Suspected Infection Suspected Infection: Sepsis Labs Labs: Sodium 134 mmol/L (133-145) 06/12/25 23:29 Potassium 3.5 mmol/L (3.3-5.1) 06/12/25 23:29 Chloride 99 mmol/L (98-108) 06/12/25 23:29 Carbon Dioxide 17.0 mmol/L (21.0-32.0) L 06/12/25 23:29 Anion Gap 18 (5-15) H 06/12/25 23:29 BUN 20 mg/dL (4-19) H 06/12/25 23:29 Creatinine 1.44 mg/dL (0.70-1.20) H 06/12/25 23:29 Est GFR (MDRD) Non-Af 36 (>60) L 06/12/25 23:29 BUN/Creatinine Ratio 14.2 RATIO (10-20) 06/12/25 23:29 Glucose 172 mg/dL (70-99) H 06/12/25 23:29 Microbiology Microbiology: Microbiology 06/12/25 23:40 Mucosa - Nose SARS-CoV-2, Influenza & RSV (PCR) - Final Dosing Weight Weight used for dosin kg Estimated Creatinine Clearance Estimated Creatinine Clearance: 33 Goal Trough Goal Trough: 15-20 mcg/mL Pharmacy Plan for Drug Dosing Pharmacy Plan for Drug Dosing: Pharmacy Service will continue to monitor and adjust dosing as required. Follow-Up Labs Follow-Up Labs: Trough: Vancomycin Date/Time Labs Ordered Labs to be done on [date and time ordered]: 06/15/25 @0000
[2025-06-13] MEDS: Norepinephrine 8 MG in 0.9% Normal Saline (250mL Bag) 242 ML 9.4 MG CONT INF (03:52)
[2025-06-13 03:59] LABS: Hematocrit 29.8 % (37-47); Hemoglobin 9.1 g/dL (12.0-15.0); Immature Granulocytes Count 0.890 X10^3/uL (0.0-0.0); Mean Corp Hgb Conc 30.5 g/dL (32-36); Mean Corpuscular Volume 79.9 fL (81-99); Mean Platelet Vol. 11.2 fl (6.2-12.0); NRBC Flagged by Analyzer 0.1 % (0-5); POSITIVE DIFFERENTIAL YES; POSITIVE MORPHOLOGY YES; Platelet Count 208 K/mm3 (150-450); RBC Distribution Width CV 27.3 % (11.6-14.6); RBC Distribution Width SD 75.7 fl (35.1-43.9); Red Blood Count 3.73 M/mm3 (4.2-5.4); White Blood Count 23.9 K/mm3 (4.4-11.0)
[2025-06-13] MEDS: 0.9% Normal Saline (1000mL) 1,000 ML 100 ML IV (04:02)
[2025-06-13] MEDS: Pantoprazole Sodium 40 MG in 0.9% Normal Saline (100mL MB+) 100 ML 330 MG IV ×3 (04:02→21:20)
[2025-06-13 04:15] LABS: Differential Indicated SCAN CRITERIA MET
[2025-06-13 04:50] LABS: Pro- Brain NATRIURETIC PEPTIDE 4980 pg/mL (<=1800)
[2025-06-13 05:01] LABS: Dohle Bodies 1+; Vacuolated Cells 1+
[2025-06-13 05:02] LABS: Acanthocytes 1+; Anisocytosis 2+; Polychromasia 1+
--- NOTE | 2025-06-13 05:11 | PCMCONS.TICU ---
HPI Consult Data Date of Consult: 06/13/25 HPI Narrative Reason for Consultation: Septic shock HPI Narrative: 84 yrs old female with past medical history of Anxiety and Depression, Hypothyroidism, CKD stage III , anemia, PAF, Rheumatoid arthritis, HTN, HLD, GERD presented to ED for change in mental status and fever. On arrival to ED, vitals T 40.1, OH 97, BP 166/81. Labs significant for WBC 26.8, Hgb 10.8, HCT 35.3, Hco3 17, Cr 1.44, BUN 20, lactic acid 5.4, BNP 4980, U/A positive for LE, WBC. 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 pneumonia No reported coughing, not hypoxic Elevated BNP, consider ECHO # CHUCK on CKD with metabolic acidosis Monitor urine output and renal function Hypokalemia, replete ordered Follow up on repeat lab # Anemia Likely of chronic illness Monitor H and H # Hx of Hypothyroidism Resume home meds # Hx of anxiety Resume home meds Critical care time 60 minutes Entire encounter done via Telemedicine FORMERLY [facility], [facility] Medical History Anxiety and depression Hypothyroidism HLD (hyperlipidemia) GERD (gastroesophageal reflux disease) Chronic anemia Gout Morbid obesity Allergic rhinitis Atrial fibrillation Rheumatoid arthritis Chronic kidney disease, stage 3 Hypertension Home Medications ?Medication ?Instructions ?Recorded ?Last Taken ?Type allopurinol 100 mg tablet 100 mg PO DAILYCM gout 11/12/14 10/11/24 History furosemide 40 mg tablet 20 mg PO DAILY diuretic 11/12/14 Unknown History cholecalciferol (vitamin D3) 1,250 1,250 mcg PO QWEEK supplement 10/12/24 10/10/24 History mcg (50,000 unit) capsule duloxetine 30 mg capsule,delayed 30 mg PO QHS mood 10/12/24 Unknown History release folic acid 1 mg tablet 2 mg PO DAILY supplement 10/12/24 Unknown History levothyroxine 25 mcg tablet 25 mcg PO DAILY disorder of 10/12/24 Unknown History thyroid gland potassium chloride 10 mEq 10 meq PO BID supplement 10/12/24 Unknown History tablet,extended release(part/cryst) (Klor-Con M) rosuvastatin 10 mg tablet 10 mg PO DAILY cholesterol 10/12/24 Unknown History apremilast 30 mg tablet (Otezla) 30 mg PO BID psoriasis 10/13/24 Unknown History famotidine 20 mg tablet (Acid 20 mg PO DAILY gerd 10/13/24 Unknown History Controller) mecobalamin (vitamin B12) 1,000 1,000 mcg PO .OD supplement 10/13/24 Unknown History mcg chewable tablet (B12 Active) vit C 250 mg-vit E 90 mg-zinc 40 1 tab PO DAILY supplement 10/13/24 Unknown History mg-copper 1 [id number] capsule (PreserVision AREDS-2) acetaminophen 325 mg tablet 650 mg (2 x 325 mg) PO Q6H PRN PRN 10/18/24 Unknown Rx Pain 1-10 Or Fever>100.7 #0 tabs apixaban 5 mg tablet (Eliquis) 5 mg PO BID #60 tabs 10/18/24 Unknown Rx losartan 50 mg tablet 50 mg PO DAILY #60 tabs 10/18/24 Unknown Rx metoprolol tartrate 100 mg tablet 100 mg PO BID #60 tabs 10/18/24 Unknown Rx amiodarone 200 mg tablet 200 mg PO DAILY 01/06/25 Unknown History atorvastatin 20 mg tablet 20 mg PO DAILY 06/13/25 Unknown History furosemide 20 mg tablet 20 mg PO DAILY 06/13/25 Unknown History levothyroxine 75 mcg tablet 75 mcg PO DAILY 06/13/25 Unknown History metoprolol tartrate 50 mg tablet 50 mg PO BID 06/13/25 Unknown History Allergy/AdvReac Type Severity Reaction Status Date / Time amlodipine besylate (From Allergy Other Verified 06/12/25 23:24 Norvasc) bumetanide (From Bumex) Allergy Other Verified 06/12/25 23:24 cephalexin monohydrate (From Allergy Hives Verified 06/12/25 23:24 Keflex) colchicine Allergy Hives Verified 06/12/25 23:24 hydrochlorothiazide Allergy Hives Verified 06/12/25 23:24 hydrocortisone acetate (From Allergy Other Verified 06/12/25 23:24 Hydrocortone Acetate) minoxidil Allergy Other Verified 06/12/25 23:24 naproxen Allergy Rash Verified 06/12/25 23:24 ofloxacin (From Floxin) Allergy Shortness Verified 06/12/25 23:24 of breath Penicillins (PCN) Allergy Rash Verified 06/12/25 23:24 Sulfa (Sulfonamide Allergy Rash Verified 06/12/25 23:24 Antibiotics) Family History Son Diabetes CAD (coronary artery disease) Mother Diabetes Father Heart disease Hypertension Prostate cancer Surgical History History of intestinal surgery History of bladder surgery History of partial hysterectomy H/O hernia repair Hx of cholecystectomy Social History household members: none Smoking Status: Never smoker alcohol intake: never substance use type: does not use Objective Data Objective Data Vital Signs: Vital Signs Last response Temperature 38.3 C H 06/13/25 03:52 Temperature Source Core 06/13/25 03:52 Pulse Rate 81 06/13/25 04:00 Respiratory Rate 28 H 06/13/25 03:52 Respiratory Effort Normal, Non-Labored 06/13/25 04:00 Respiratory Depth Normal 06/13/25 04:00 Respiratory Pattern Tachypnea 06/13/25 04:00 Blood Pressure 109/64 06/13/25 04:45 Blood Pressure Mean 79 06/13/25 04:45 Blood Pressure Source Monitor 06/13/25 03:00 Blood Pressure Position Semi-Fowlers 06/13/25 03:00 Blood Pressure Location Right Arm 06/13/25 03:00 Pulse Ox 96 06/13/25 03:52 Oxygen Delivery Method Nasal Cannula 06/13/25 04:00 Oxygen Flow Rate (L/min) 6 06/13/25 04:00 I&O: I&O Last 24 Hours 06/12/25 06/12/25 06/13/25 11:59 23:59 11:59 Intake Total 0 / 0 3388.30 / 3388.30 Balance 0 / 0 3388.30 / 3388.30 I&O: Total Stay 06/12/25 23:22 thru 06/13/25 05:09 Intake Total 3388.30 Balance 3388.30 Current Meds Ordered / Administered: Current meds ordered / Administered Generic Name Dose Route Start Last Admin Trade Name Freq PRN Reason Stop Dose Admin Acetaminophen 650 mg 06/13/25 03:07 Acetaminophen 325 Mg Tablet PO Q4H PRN PRN Fever, pain 1-10/10 Acetaminophen 650 mg 06/13/25 03:07 Acetaminophen 650 Mg Suppository RC Q4H PRN PRN Fever, pain 1-10 Al Hydroxide/Mg Hydroxide 30 ml 06/13/25 03:07 Mag Hydrox/Al Hydrox/Simeth 30 Ml Udc PO Q6H PRN PRN Gastric Burning Albuterol Sulfate 2.5 mg 06/13/25 03:07 Albuterol 2.5 Mg/3 Ml Vial.Neb. INHALATION Q2H PRN PRN Dyspnea, wheezing Allopurinol 100 mg 06/13/25 08:00 Allopurinol 100 Mg Tablet PO DAILYCM [facility] Amiodarone HCl 200 mg 06/13/25 08:00 Amiodarone 200 Mg Tablet PO DAILYCM [facility] Apixaban 5 mg 06/13/25 10:00 Apixaban 5 Mg Tablet PO BID [facility] Atorvastatin Calcium 20 mg 06/13/25 22:00 Atorvastatin Calcium 20 Mg Tablet PO 2200 FLORIN Calamine/Phenol 1 applic 06/13/25 10:00 Menthol/Lanolin/Calamine/Znox 113 Gm Tube TOPICAL 4X/DAY [facility] Protocol Duloxetine HCl 30 mg 06/13/25 22:00 Duloxetine Hcl 30 Mg Capsule PO QHS FLORIN Folic Acid 2 mg 06/13/25 08:00 Folic Acid 1 Mg Tablet PO DAILYCM [facility] Guaifenesin 10 ml 06/13/25 03:07 Guaifenesin 10 Ml Udc (200mg/10ml) PO Q4H PRN PRN COUGH Hydralazine HCl 10 mg 06/13/25 03:07 Hydralazine 20 Mg/Ml Vial IV Q4H PRN PRN SBP > 160 Protocol Sodium Chloride 250 mls @ 15 mls/hr 06/13/25 03:05 IV .[id number] PRN Saline Flush Sodium Chloride 250 mls @ 15 mls/hr 06/13/25 03:05 IV .[id number] PRN Additional IVPB Infusion Sodium Chloride 1,000 mls @ 100 mls/hr 06/13/25 03:07 06/13/25 04:02 IV 06/13/25 13:06 100 mls/hr .Q10H FLORIN Administration Pantoprazole Sodium 40 mg/ 100 mls @ 330 mls/hr 06/13/25 03:07 06/13/25 04:02 Sodium Chloride IV 330 mls/hr Q12 FLORIN Administration Meropenem 1 gm/ Sodium 100 mls @ 33 mls/hr 06/13/25 10:00 Chloride IV Q12 FLORIN Vancomycin IV-PHARMACY TO DOSE 500 mls @ 250 mls/hr 06/13/25 03:07 1 each/ Sodium Chloride IV PRN PRN Rx to Dose Protocol Norepinephrine Bitartrate 8 mg 250 mls @ 9.375 mls/hr 06/13/25 03:25 06/13/25 04:45 / Sodium Chloride CONT INF 5 mcg/min .[id number] FLORIN 9.4 mls/hr Titration Protocol 5 MCG/MIN Vancomycin HCl 1,500 mg/ 530 mls @ 250 mls/hr 06/14/25 00:30 Sodium Chloride IV Q24H FLORIN Levothyroxine Sodium 75 mcg 06/13/25 06:00 Levothyroxine 75 Mcg Tablet PO DAILY@0600 [facility] Melatonin 3 mg 06/13/25 03:07 Melatonin 3 Mg Tablet PO QHS PRN PRN INSOMNIA Metoprolol Tartrate 50 mg 06/13/25 10:00 Metoprolol Tartrate 50 Mg Tablet PO BID FLORIN Protocol Ondansetron HCl 4 mg 06/13/25 03:07 Ondansetron 4 Mg/2 Ml Vial IV Q8H PRN PRN NAUSEA/VOMITING Senna/Docusate Sodium 2 tablet 06/13/25 03:07 Senna/Docusate Sodium 1 Tablet PO BID PRN PRN Constipation Sodium Chloride 10 - 40 ml 06/13/25 03:05 0.9% Saline Lock 10 Ml Syringe IV UD PRN SALINE FLUSH Vancomycin Protocol 1 lab 06/14/25 23:00 Vancomycin Trough/Random Due 06/15/25 01:00 DAILY [facility] Lab / Micro Data 06/13/25 03:50 06/12/25 23:29 Labs: Laboratory Results - last 24 hr 06/12/25 23:29: WBC 26.8 H, RBC 4.43, Hgb 10.8 L, Hct 35.3 L, MCV 79.7 L, MCH 24.4 L, MCHC 30.6 L, RDW Std Deviation 75.7 H, RDW Coeff of Akin 27.4 H, Plt Count 286, MPV 10.8, Immature Gran % (Auto) 2.800 H, Neut % (Auto) 89.3 H, Lymph % (Auto) 6.8 L, Ball[place] % (Auto) 0.6, Eos % (Auto) 0.2, Baso % (Auto) 0.3, Absolute Neuts (auto) 23.9 H, Absolute Lymphs (auto) 1.83, Nucleated RBC % 0, Differential Comment , Dohle Bodies 1+, Platelet Estimate ADEQUATE, Polychromasia 1+, Anisocytosis 2+, Microcytosis 1+, Target Cells 1+, Acanthocytes (Spur) 1+, PT 20.2 H, INR 1.7, APTT 34.3, Sodium 134, Potassium 3.5, Chloride 99, Carbon Dioxide 17.0 L, Anion Gap 18 H, BUN 20 H, Creatinine 1.44 H, Estim Creat Clear Calc 32.83 L, Est GFR (MDRD) Non-Af 36 L, BUN/Creatinine Ratio 14.2, Glucose 172 H, Lactic Acid 5.4 H*, Calcium 8.8, Phosphorus 2.2 L, Magnesium 1.6 06/12/25 23:29: Magnesium Cancelled, Total Bilirubin 1.20, Direct Bilirubin 0.48 H, AST 62 H, ALT 37 H, Alkaline Phosphatase 101, Ammonia 21.0, Total Protein 7.9, Albumin 3.7, Globulin 4.2, Albumin/Globulin Ratio 0.9, TSH 1.120 06/12/25 23:40: Urine Color Yellow, Urine Clarity Sl. Cloudy, Urine pH 6.0, Ur Specific [place] 1.015, Urine Protein 500 H, Urine Glucose (UA) Normal, Urine Ketones Negative, Urine Occult Blood 50 H, Urine Nitrite Positive H, Urine Bilirubin Negative, Urine Urobilinogen Normal, Ur Leukocyte Esterase 100 H, Urine RBC 0-5 SEEN, Urine WBC 50-100 SEEN, Ur Squamous Epith Cells 0-5 SEEN, Urine Bacteria 3+, Urine Mucus 0 SEEN 06/13/25 03:50: WBC 23.9 H, RBC 3.73 L, Hgb 9.1 L, Hct 29.8 L, MCV 79.9 L, MCH 24.4 L, MCHC 30.5 L, RDW Std Deviation 75.7 H, RDW Coeff of Akin 27.3 H, Plt Count 208, MPV 11.2, Immature Gran % (Auto) 3.700 H, Neut % (Auto) 92.0 H, Lymph % (Auto) 1.5 L, Ballard % (Auto) 1.8, Eos % (Auto) 0.7, Baso % (Auto) 0.3, Absolute Neuts (auto) 21.9 H, Absolute Lymphs (auto) 0.36 L, Nucleated RBC % 0.1, Toxic Vacuolation 1+, Dohle Bodies 1+, Platelet Estimate ADEQUATE, Plt Morphology Comment LARGE, Polychromasia 1+, Anisocytosis 2+, Acanthocytes (Spur) 1+, NT pro BNP II 4980 H Micro: Microbiology 06/12/25 23:40 Mucosa - Nose SARS-CoV-2, Influenza & RSV (PCR) - Final ABG Data ABG results: ABG 06/13/25 02:31 Specimen Type ART Sample Site R Radial pH 7.41 Bicarbonate Actual 19.3 L Total CO2 20 Base Excess -5 L O2 Saturation 96 O2 % 6.0 ABG pCO2 30.2 L ABG pO2 77 Richard Test Positive O2 Delivery Device Cannula Vent Mode Not entered Imaging Radiology Impression Chest X-Ray 06/12/25 23:59 IMPRESSION: Cardiomegaly. Moderate central pulmonary venous congestion. Airspace disease in the left lower lobe. Hypoventilatory pulmonary changes and/or developing pneumonia. Reading Location: [id number] Brain CT 06/13/25 23:27 IMPRESSION: No intracerebral or extra axial hemorrhage. No acute cerebrovascular insult. If clinical symptoms persist, further evaluation with MRI may be considered as clinically warranted. Bilateral cerebral microvascular ischemic changes with brain involutional changes. Stable Stable left parasellar hyperdense mass. [facility] Assessment and Plan . Assessment and plan: Critical Care Time: The entirety of this encounter was done via Telemedicine
[2025-06-13 05:17] LABS: AST(SGOT) 53 U/L (<=31); Alanine Aminotransfer ALT/SGPT 34 U/L (<=34); Albumin, Serum 2.8 g/dL (3.4-4.8); Alkaline Phosphatase 83 U/L (35-104); Anion Gap 14 (5-15); BUN 20 mg/dL (4-19); BUN/Creat Ratio 13.8 RATIO (10-20); Calcium,Total 7.6 mg/dL (7.6-11.0); Carbon Dioxide 15.4 mmol/L (21.0-32.0); Chloride 107 mmol/L (98-108); Estimated Creatinine Clearance 27.13 ml/min (50-250); Globulin 3.1 g/dL (2.2-4.2); Glucose 126 mg/dL (70-99); Potassium 2.6 mmol/L (3.3-5.1)
[2025-06-13] MEDS: KCL 40mEq in 0.9% NS 40 MEQ/1,000 ML IV.SOLN 125 MEQ IV ×2 (05:54→14:00)
--- NOTE | 2025-06-13 10:25 | CASEMGMT ---
Social Work- Pt remains drowsy and unable to hold conversation. SW to follow up on directives when pt is oriented and able to engage in conversation. LORETA Mitchell
[2025-06-13] MEDS: Meropenem 1 GM in 0.9% Normal Saline (100mL MB+) 100 ML IV ×2 (11:17→21:45)
--- NOTE | 2025-06-13 11:34 | CASEMGMT ---
Addendum entered by Meli Vo 06/13/25 12:13: [facility] returns call for referral and states that they are able to accept for tentative SOC being . CM to follow. Original Note: RN CM Assessment Face to Face with patient for initial transition planning/care coordination assessment. RN CM introduced self and role at [facility], pt voices understanding. Pt is A&Ox4 and is resting comfortably in bed and is calm. Pt's daughters are at the bedside. Care providers, pharmacy, and demographics verified. Admitting dx: Sepsis, UTI LACE Strata: 2 PCP: Atul Harvey Specialists: Nirmala (Cardio), Jovita (Rheumatology) Preferred Pharmacy: [facility] Insurance: [employer] [facility] Prescription Benefit: Yes LNOK: Noemy Uribe (Daughter), Shanna (Daughter) Living Arrangements: Pt lives alone in a single story home with a basement and a FFSU with 2 total steps to enter. Pt's daughter (Noemy) and her family live next door and are able to provide ample support ADLs/IADLs: Reports indep at baseline. Current 6-Click score is 18. PT/OT are ordered and pending. Transportation: Self (Short distances), Noemy for longer transport needs. DME: Access to a cane, FWW, and BP machine. Walk in shower with shower chair and grab bars. Lift chair. Toilet seat grab bars. BiPAP @ HS with no additional oxygen. Pt is currently requiring additional oxygen and may qualify for home oxygen use. A verbal list of local in-network DME companies were provided to the pt at this time. Pt prefers [facility]. HHC/SNF: Hx with [facility] and [facility]. Pt states that she would prefer to DC home once medically ready with [facility] again. Pt declines SNF needs and declines wanting to review a list of local in-network HHC agencies and states that her FOC is [facility] (SN, PT, and OT). TC to [facility] and referral made. Awaiting return response. Pt?s goal: Home with HHC Plan: Home, follow for HH and new O2. Pt reports that she has already used the [employer] savings card before. Pt states that her insurance helps cover the cost of the med and that it is affordable. Pt denies further questions or concerns and states that she feels safe returning home with the support of her daughter and her family as well as skilled HHC. Pt denies further needs now. CM to follow. Jaxon Vo RN CM
--- NOTE | 2025-06-13 18:09 | PN.HOSP_ITS ---
Reason for Visit Chief Complaint: Confusion, fever. Subjective Subjective Patient was seen and examined today, she is currently off pressor agents. She does not appear to be in any distress. Objective Data Objective Data Vital Signs: Vital Signs Temp Pulse Resp BP Pulse Ox O2 Del Method O2 Flow Rate 98.5 F 81 22 H 114/64 95 Nasal Cannula 2 06/13/25 12:00 06/13/25 17:00 06/13/25 17:00 06/13/25 17:00 06/13/25 17:00 06/13/25 17:00 06/13/25 17:00 Oxygen Flow Rate (L/min) 2 Oxygen Delivery Method Nasal Cannula Weight: 74.2 kg Body Mass Index (BMI) 29.0 Intake & Output: Intake and Output for Last 24 Hours 06/11/25 06/12/25 06/13/25 23:59 23:59 23:59 Intake Total 0 / 0 5539.15 / 5539.15 Output Total 350 / 350 Balance 0 / 0 5189.15 / 5189.15 Lab / Micro Data 06/13/25 03:50 06/13/25 03:50 Labs: Laboratory Results - last 24 hr 06/12/25 23:29: WBC 26.8 H, RBC 4.43, Hgb 10.8 L, Hct 35.3 L, MCV 79.7 L, MCH 24.4 L, MCHC 30.6 L, RDW Std Deviation 75.7 H, RDW Coeff of Akin 27.4 H, Plt Count 286, MPV 10.8, Immature Gran % (Auto) 2.800 H, Neut % (Auto) 89.3 H, Lymph % (Auto) 6.8 L, [place] % (Auto) 0.6, Eos % (Auto) 0.2, Baso % (Auto) 0.3, Absolute Neuts (auto) 23.9 H, Absolute Lymphs (auto) 1.83, Nucleated RBC % 0, Differential Comment , Dohle Bodies 1+, Platelet Estimate ADEQUATE, Polychromasia 1+, Anisocytosis 2+, Microcytosis 1+, Target Cells 1+, Acanthocytes (Spur) 1+, PT 20.2 H, INR 1.7, APTT 34.3, Sodium 134, Potassium 3.5, Chloride 99, Carbon Dioxide 17.0 L, Anion Gap 18 H, BUN 20 H, Creatinine 1.44 H, Estim Creat Clear Calc 32.83 L, Est GFR (MDRD) Non-Af 36 L, BUN/Creatinine Ratio 14.2, Glucose 172 H, Lactic Acid 5.4 H*, Calcium 8.8, P hosphorus 2.2 L, Magnesium 1.6 06/12/25 23:29: Magnesium Cancelled, Total Bilirubin 1.20, Direct Bilirubin 0.48 H, AST 62 H, ALT 37 H, Alkaline Phosphatase 101, Ammonia 21.0, Total Protein 7.9, Albumin 3.7, Globulin 4.2, Albumin/Globulin Ratio 0.9, TSH 1.120 06/12/25 23:40: Urine Color Yellow, Urine Clarity Sl. Cloudy, Urine pH 6.0, Ur Specific [place] 1.015, Urine Protein 500 H, Urine Glucose (UA) Normal, Urine Ketones Negative, Urine Occult Blood 50 H, Urine Nitrite Positive H, Urine Bilirubin Negative, Urine Urobilinogen Normal, Ur Leukocyte Esterase 100 H, Urine RBC 0-5 SEEN, Urine WBC 50-100 SEEN, Ur Squamous Epith Cells 0-5 SEEN, Urine Bacteria 3+, Urine Mucus 0 SEEN 06/13/25 03:50: WBC 23.9 H, RBC 3.73 L, Hgb 9.1 L, Hct 29.8 L, MCV 79.9 L, MCH 24.4 L, MCHC 30.5 L, RDW Std Deviation 75.7 H, RDW Coeff of Akin 27.3 H, Plt Count 208, MPV 11.2, Immature Gran % (Auto) 3.700 H, Neut % (Auto) 92.0 H, Lymph % (Auto) 1.5 L, [place] % (Auto) 1.8, Eos % (Auto) 0.7, Baso % (Auto) 0.3, Absolute Neuts (auto) 21.9 H, Absolute Lymphs (auto) 0.36 L, Nucleated RBC % 0.1, Toxic Vacuolation 1+, Dohle Bodies 1+, Platelet Estimate ADEQUATE, Plt Morphology Comment LARGE, Polychromasia 1+, Anisocytosis 2+, Acanthocytes (Spur) 1+, Sodium 137, Potassium 2.6 L*, Chloride 107, Carbon Dioxide 15.4 L, Anion Gap 14, BUN 20 H, Creatinine 1.43 H, Estim Creat Clear Calc 27.13 L, Est GFR (MDRD) Non-Af 36 L , BUN/Creatinine Ratio 13.8, Glucose 126 H, Calcium 7.6, Total Bilirubin 1.23, A ST 53 H, ALT 34, Alkaline Phosphatase 83, NT pro BNP II 4980 H, Total Protein 5.8 L, Albumin 2.8 L, Globulin 3.1, Albumin/Globulin Ratio 0.9 Micro: Microbiology 06/12/25 23:29 Blood Culture (Wb) - Left Forearm Blood Culture - Preliminary 06/12/25 23:45 Blood Culture (Wb) - Right Forearm Blood Culture - Preliminary 06/13/25 11:38 Blood Culture (Wb) - Left Forearm Bacteria Detection (PCR) - Final Strep not Strep pneumo 06/12/25 23:40 Mucosa - Nose SARS-CoV-2, Influenza & RSV (PCR) - Final ABG Data ABG results: ABG 06/13/25 02:31 Specimen Type ART Sample Site R Radial pH 7.41 Bicarbonate Actual 19.3 L Total CO2 20 Base Excess -5 L O2 Saturation 96 O2 % 6.0 ABG pCO2 30.2 L ABG pO2 77 Richard Test Positive O2 Delivery Device Cannula Vent Mode Not entered Radiography Diagnostic Testing: Radiology Impression Chest X-Ray 06/12/25 23:59 IMPRESSION: Cardiomegaly. Moderate central pulmonary venous congestion. Airspace disease in the left lower lobe. Hypoventilatory pulmonary changes and/or developing pneumonia. Reading Location: [place] [address] 06/13/25 23:27 IMPRESSION: No intracerebral or extra axial hemorrhage. No acute cerebrovascular insult. If clinical symptoms persist, further evaluation with MRI may be considered as clinically warranted. Bilateral cerebral microvascular ischemic changes with brain involutional changes. Stable Stable left parasellar hyperdense mass. Reading Location: [place] [address] Physical Exam Const alert and no apparent distress General Appearance: cooperative, well kempt and well developed Orientation / Consciousness: awake, oriented to person and oriented to place HEENT normocephalic, head/scalp atraumatic and moist oral mucous membranes Eyes PERRL, EOMs intact bilaterally and conjunctivae normal Neck supple, no JVD and thyroid normal General: trachea midline Resp normal respiratory effort, no retractions, no use of accessory muscles and clear to auscultation bilaterally Auscultation: Negative for rales, rhonchi or wheezes Cardio regular rate, regular rhythm, S1 normal heart sound, S2 normal heart sound, no murmurs, no rub and no gallops Cardio Narrative: Occasional ectopic beats are noted on auscultation GI normal to inspection, nondistended, normoactive bowel sounds, soft to palpation, non-tender and non-distended Extremity no clubbing, cyanosis or edema Skin no rashes or lesions noted General Skin Exam: no breakdown Neuro CN's II-XII intact bilaterally, no focal motor deficits and no sensory deficits noted Sensorium / Orientation: awake, alert, oriented to person and oriented to place Speech: speech normal Psych affect normal Assessment & Plan Assessment/Plan (1) Sepsis: PLAN: Plan 1. Septic shock secondary to urinary tract infection-continue present antibiotics, patient is off pressors at this time, patient appears to be stable for transfer to PCU at this time #2 encephalopathy secondary to #1-patient's mental status has improved since admission #3 essential hypertension-patient's medications will be held at this time and she will be reevaluated tomorrow #4 paroxysmal atrial fibrillation-patient is currently in sinus rhythm with PACs, I will restart her home medications #5 hypothyroidism-patient is on Synthroid Total clinical time spent by myself addressing the patient's medical issues, reviewing all of her data, and collaborating with patient's care team: 35 minutes
[2025-06-13] MEDS: APIXABAN 5 MG TABLET PO (21:20)
[2025-06-13 21:50] LABS: Potassium 4.0 mmol/L (3.3-5.1)
[2025-06-13] MEDS: KCL 40mEq in 0.9% NS 40 MEQ/1,000 ML IV.SOLN 70 MEQ IV (22:27)
--- NOTE | 2025-06-13 23:14 | PN.HOSP_ITS ---
Hospitalist Note Nursing questioning continuation of NS w/40meq at 125ml/hr order. Orders placed to recheck serum potassium and phosphorus. She was unable to take the oral potassium replacement earlier today, per nursing. Extensive time noted before lab provided results; potassium is 4, up from 2.6 at 0350 today. Phosphorus 2.5, up from 2.2. Reduced IVF rate to 70ml/hr, until reviewed with Dr. Junior. [facility] [place]. Routine labs in AM. Addendum: IVF d/c'd.
--- NOTE | 2025-06-13 23:27 | CT_ITS ---
PROCEDURE: BRAIN/HEAD WITHOUT CONTRAST 06/13/2025 REASON FOR EXAM: ALTERED MENTAL STATUS TECHNIQUE: Procedure Code: CTBR Modality: CT Procedure: BRAIN/HEAD WITHOUT CONTRAST Coronal and Sagittal reconstruction series were provided. One or more dose reduction techniques were used (e.g., Automated exposure control, adjustment of the mA and/or kV according to patient size, use of iterative reconstruction technique. RADIATION DOSE SUMMARY: CTDI Vol 61.79 mGy DLP :1267.7 mGycm COMPARISON: 01-06-2025 FINDINGS: Relatively accentuated bilateral cerebral periventricular deep white matter hypodensities suggesting hypoperfusion with scattered tiny hypodense foci suggestive of microvascular ischemic changes. [place]-white matter differentiation is maintained. Normal CT appearance of the posterior fossa structures. Stable left parasellar hyperdense mass. No intracerebral or extra axial hemorrhage. No definite calvarial fractures. Unremarkable ventricular system. Prominent cortical sulci and extra-axial CSF spaces No midline shifts or deformity. The osseous structures in the skull base are unremarkable. The scanned paranasal sinuses are unremarkable. CT/Brain/Head without Contrast IMPRESSION: No intracerebral or extra axial hemorrhage. No acute cerebrovascular insult. If clinical symptoms persist, further evaluati on with MRI may be considered as clinically warranted. Bilateral cerebral microvascular ischemic changes with brain involutional harding es. Stable Stable left parasellar hyperdense mass. Reading [facility]
[2025-06-14] VITALS (23 sets, daily range): BP systolic 111–185; BP diastolic 63–100; PULSE 60–82; RESP 16–31; TEMP 36.7–37.1; O2SAT 95–100
[2025-06-14] MEDS: Sodium Phosphate/Na Biphos 21 MMOL in 0.9% Normal Saline (250mL Bag) 250 ML 84 MMOL IV (00:01)
[2025-06-14] MEDS: Vancomycin HCl 1,500 MG in 0.9% Normal Saline (500mL Bag) 500 ML 250 MG IV (01:00)
--- NOTE | 2025-06-14 05:50 | PN.CC_ITS ---
Assessment & Plan Assessment/Plan (1) Sepsis: PLAN: Plan RECOMMENDATIONS: 1. Continue antimicrobial therapy. 2. Wean supplemental oxygen to maintain saturations at or above 90%. 3. Encourage incentive spirometer use and mobilize patient as tolerated. 4. Will sign off from a critical care perspective. Please call with any questions. IMPRESSIONS: 1. Septic shock Presumed secondary to underlying gram-negative UTI complicated by Streptococcus bacteremia. The patient has been weaned from vasopressor support and remains hemodynamically stable. She will be continued on antimicrobials, pending finalized culture results. It may be beneficial to have the patient evaluated by infectious diseases to assist with antimicrobial management and recommendations for duration of treatment. 2. Acute metabolic encephalopathy Related to #1. Resolved at this time. Continue current supportive care. 3. History of hypertension/paroxysmal atrial fibrillation/hypothyroidism Complicates care, management, recovery and prognosis. Continue home medications as indicated. This note was generated with [employer] dictation software. It may contain incorrect words, spelling, and punctuation that were not noted in checking the note before signing. Subjective Subjective The patient was seen and examined at the bedside this morning. Events from the last 24 hours have been reviewed. The patient is currently afebrile, hemodynamically stable and maintaining appropriate oxygen saturations on 2 L/min via nasal cannula. The patient did report the presence of a nosebleed this morning. Morning CBC is pending. Creatinine is stable at 1.46. The patient is documented to be overall net +5.8 L for the hospitalization. Objective Data Objective Data The patient's most recent lab work, culture data and imaging studies have all been personally reviewed. Preliminary urine cultures demonstrating growth of a gram-negative rome. Blood cultures demonstrating growth of Streptococcus species. Vital Signs: Vital Signs Temp Pulse Resp BP Pulse Ox O2 Del Method O2 Flow Rate 97.9 F 63 22 H 137/70 H 97 Nasal Cannula 4 06/13/25 20:00 06/14/25 04:00 06/14/25 04:00 06/14/25 04:00 06/14/25 04:00 06/14/25 04:00 06/14/25 04:00 Oxygen Flow Rate (L/min) 4 Oxygen Delivery Method Nasal Cannula Weight: 169 lb 12.095 oz Body Mass Index (BMI) 30.0 Intake & Output: Intake and Output for Last 24 Hours 06/12/25 06/13/2506/14/25 23:59 23:59 23:59 Intake Total 0 / 0 6727.76 / 6727.76 887 / 887 Output Total 965 / 1365 800 / 800 Balance 0 / 0 5762.76 / 5362.76 87 / 87 Lab / Micro Data Attestation: I reviewed the patient's lab results. 06/14/25 06:43 06/14/25 05:30 Labs: Laboratory Results - last 24 hr 06/13/25 20:38: Potassium 4.0, Phosphorus 2.5 L Micro: Microbiology 06/14/25 01:11 Urine Catheter - Begum Legionella Antigen - Final 06/14/25 01:11 Urine Catheter - Begum Streptococcus pneumoniae Antigen (M - Final 06/12/25 23:29 Blood Culture (Wb) - Left Forearm Blood Culture - Preliminary 06/12/25 23:45 Blood Culture (Wb) - Right Forearm Blood Culture - Preliminary 06/13/25 11:38 Blood Culture (Wb) - Left Forearm Bacteria Detection (PCR) - Final Strep not Strep pneumo 06/12/25 23:40 Mucosa - Nose SARS-CoV-2, Influenza & RSV (PCR) - Final Physical Exam Const alert, oriented x3 and no apparent distress General Appearance: cooperative HEENT normocephalic and head/scalp atraumatic Eyes PERRL, EOMs intact bilaterally and conjunctivae normal Neck supple General: trachea midline Chest inspection of chest normal Resp Resp Narrative: The patient has clear lung ford with wheezing noted on forced exhalation emanating from the upper airway. Cardio regular rate and regular rhythm GI normal to inspection, nondistended, normoactive bowel sounds Extremity no clubbing, cyanosis or edema Skin no rashes or lesions noted Neuro CN's II-XII intact bilaterally, moves all extremities and no focal motor deficits Psych cooperative and affect normal Charges/Coding Visit Charges Inpatient E&M: 40436 Subs Hosp L2
[2025-06-14 06:30] LABS: AST(SGOT) 46 U/L (<=31); Alanine Aminotransfer ALT/SGPT 34 U/L (<=34); Albumin, Serum 2.8 g/dL (3.4-4.8); Alkaline Phosphatase 84 U/L (35-104); Anion Gap 9 (5-15); BUN 28 mg/dL (4-19); BUN/Creat Ratio 19.1 RATIO (10-20); Calcium,Total 8.2 mg/dL (7.6-11.0); Carbon Dioxide 17.6 mmol/L (21.0-32.0); Chloride 112 mmol/L (98-108); Estimated Creatinine Clearance 27.68 ml/min (50-250); Globulin 3.4 g/dL (2.2-4.2); Glucose 110 mg/dL (70-99); Potassium 4.3 mmol/L (3.3-5.1)
[2025-06-14 06:56] LABS: Hematocrit 31.6 % (37-47); Hemoglobin 9.5 g/dL (12.0-15.0); Mean Corp Hgb Conc 30.1 g/dL (32-36); Mean Corpuscular Volume 81.4 fL (81-99); Mean Platelet Vol. 11.3 fl (6.2-12.0); POSITIVE COUNT YES; POSITIVE DIFFERENTIAL YES; POSITIVE MORPHOLOGY YES; Platelet Count 160 K/mm3 (150-450); RBC Distribution Width CV 28.6 % (11.6-14.6); RBC Distribution Width SD 80.2 fl (35.1-43.9); Red Blood Count 3.88 M/mm3 (4.2-5.4); White Blood Count 27.5 K/mm3 (4.4-11.0)
[2025-06-14] MEDS: APIXABAN 5 MG TABLET PO ×2 (07:34→20:59)
[2025-06-14] MEDS: Pantoprazole Sodium 40 MG in 0.9% Normal Saline (100mL MB+) 100 ML 330 MG IV ×2 (07:39→21:00)
[2025-06-14] MEDS: Albuterol 2.5 MG/3 ML VIAL.NEB. INHALATION ×2 (08:05→18:59)
[2025-06-14 08:23] LABS: Differential Indicated MANUAL DIFF
[2025-06-14] MEDS: Meropenem 1 GM in 0.9% Normal Saline (100mL MB+) 100 ML IV (09:22)
[2025-06-14 09:23] LABS: Neutrophil-Band 3 % (0-5); Neutrophil-Segmented 83 % (47-70); Total Cells Counted 100 (MANUAL DIFF)
[2025-06-14 09:24] LABS: Red Cell Morphology NORM C+C NORMAL (NORM C&C)
--- NOTE | 2025-06-14 12:21 | CASEMGMT ---
Hospitalist states to this medical writer that the anticipated DC date will be tomorrow vs Thursday. [facility] HH notified and reports SOC date will be pushed back to Thursday for now. CM to follow.
--- NOTE | 2025-06-14 12:42 | ECHOCS_ITS ---
Reason For Study Reason For Study: MURMUR Procedure This was a 2D Doppler, Color Flow transthoracic echocardiogram. The study was technically difficult. Exam performed portable in ICU/CCU. Left Ventricle Normal LV size. Moderate concentric left ventricular hypertrophy. The left ventricular ejection fraction is 55 %. Stage 1 diastolic dysfunction. Right Ventricle Normal right ventricle. Atria The left atrium is mildly enlarged. Normal right atrium. Mitral Valve Mild mitral valve annular calcification. Moderately severe posteriorly directed eccentric mitral valve regurgitation. Tricuspid Valve Mild to moderate (1-2+) tricuspid valve insufficiency. Right ventricular systolic pressure estimated to be 54 mmHg. Aortic Valve Trisinus/trileaflet aortic valve. Mild (1+) aortic valve insufficiency. Pulmonic Valve The pulmonic valve is not well visualized. Great Vessels The ascending aorta is mildly dilated. Pericardium/Pleural No pericardial effusion. MMode/2D Measurements & Calculations LVIDd: 4.5 cm IVSd: 1.2 cm LVOT diam: 2.0 cm LVIDs: 3.1 cm LVPWd: 1.3 cm LVOT area: 3.1 cm2 FS: 30.9 % asc Aorta Diam: 4.0 cm LAV(MOD-bp): 54.8 ml LVAd ap4: 16.8 cm2 LAV(MOD-bp) Indexed: 30.4 ml/m2 LVLd ap4: 6.1 cm LAV(MOD-sp2): 63.6 ml EDV(MOD-sp4): 38.0 ml LAV(MOD-sp4): 44.9 ml EDV(sp4-el): 38.9 ml LVAs ap4: 11.2 cm2 LVLs ap4: 5.5 cm ESV(MOD-sp4): 18.9 ml ESV(sp4-el): 19.1 ml EF(MOD-sp4): 50.3 % EF(sp4-el): 50.9 % LVAd ap2: 21.4 cm2 SV(MOD-sp4): 19.1 ml SV(MOD-sp2): 27.7 ml LVLd ap2: 6.4 cm SI(MOD-sp4): 10.6 ml/m2 SI(MOD-sp2): 15.4 ml/m2 EDV(MOD-sp2): 58.0 ml EDV(sp2-el): 60.4 ml LVAs ap2: 14.6 cm2 LVLs ap2: 5.9 cm ESV(MOD-sp2): 30.3 ml ESV(sp2-el): 30.9 ml EF(MOD-sp2): 47.8 % SV(sp4-el): 19.8 ml Ao sinus diam: 3.[address] Junction: 2.8 cm LA dimension(2D): 3.5 cm LA A4 area: 18.8 cm2 RA A4 area: 13.1 cm2 TAPSE: 1.8 cm Time Measurements MV dec time: 0.13 sec Doppler Measurements & Calculations MV E max marty: 100.4 cm/sec Lat Peak E' Marty: 7.9 cm/sec Med Peak E' Marty: 7.3 cm/sec MV A max marty: 52.0 cm/sec E/E' lat: 12.7 E/E' med: 13.8 MV E/A: 1.9 MV dec slope: 754.9 cm/sec2 Ao V2 max: 158.4 cm/sec LV V1 max: 138.8 cm/sec Ao max P.0 mmHg LV V1 max P.7 mmHg Ao V2 mean: 117.3 cm/sec LV V1 mean P.5 mmHg Ao mean P.2 mmHg LV V1 mean: 98.3 cm/sec Ao V2 VTI: 37.8 cm LV V1 VTI: 31.2 cm AV (velocity ratio): 0.82 KENNETH(I,D): 2.5 cm2 KENNETH(V,D): 2.7 cm2 SV(LVOT): 95.9 ml PA V2 max: 72.1 cm/sec TR max marty: 307.5 cm/sec TR max P.8 mmHg ECHO/Echo Complete Interpretation Summary Moderate concentric left ventricular hypertrophy. The left ventricular ejection fraction is 55 %. Stage 1 diastolic dysfunction. The left atrium is mildly enlarged. Mild mitral valve annular calcification. Moderately severe posteriorly directed eccentric mitral valve regurgitation. Mild to moderate (1-2+) tricuspid valve insufficiency. RVSP estimated at 54 mmH g. Mild (1+) aortic valve insufficiency. The ascending aorta is mildly dilated. Recommend BROOK/cardiac MRI for further evaluation of mitral valve. Ordering Physician: Arthur Beyer Performed By: Hallie Barnett RDCS
--- NOTE | 2025-06-14 13:38 | PCM.CONS.GEN ---
Assessment & Plan Assessment/Plan (1) Septic shock: PLAN: Due to strep bacteremia and GNR uti. Possible GI source of strep given acute onset n/v/d. Will check echo and CT abd/pelvis. Overall much improved. Off pressors, fever resolved, mental status much better. Narrow vanc/frank to ceftriaxone. Reports hives with PCN and keflex, so should be low risk of cross reactivity. 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 Will follow, thank you (2) Streptococcal bacteremia: (3) UTI (urinary tract infection): HPI Consult Data Date of Consult: 06/14/25 HPI Narrative Reason for Consultation: bacteremia HPI Narrative: KIRIT GARZA, is a 84 F with h/o CKD, rheumatoid arthritis, presented to ED 06/13 with two days of not feeling well. No sick contacts, no recent abx, no recent procedures or dental work. No unusual food exposures. On evening 06/11, developed n/v/d. No blood in stool. Next day was tired, had progressive weakness, confusion, then fever with shaking chills and found by family due to not answering phone. Taken to ED, admitted to icu on vanc/frank. Feeling better. Not on O2 at home. Some recent sore throat. Reports some cough with clear/white sputum. Begum in place. Now off pressor. 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 Full ROS performed and neg except as noted above. No abd pain. [facility] Medical History Anxiety and depression Hypothyroidism HLD (hyperlipidemia) GERD (gastroesophageal reflux disease) Chronic anemia Gout Morbid obesity Allergic rhinitis Atrial fibrillation Rheumatoid arthritis Chronic kidney disease, stage 3 Hypertension Home Medications ?Medication ?Instructions ?Recorded ?Last Taken ?Type allopurinol 100 mg tablet 100 mg PO DAILYCM gout 11/12/14 10/11/24 History furosemide 40 mg tablet 20 mg PO DAILY diuretic 11/12/14 Unknown History cholecalciferol (vitamin D3) 1,250 1,250 mcg PO QWEEK supplement 10/12/24 10/10/24 History mcg (50,000 unit) capsule duloxetine 30 mg capsule,delayed 30 mg PO QHS mood 10/12/24 Unknown History release folic acid 1 mg tablet 2 mg PO DAILY supplement 10/12/24 Unknown History levothyroxine 25 mcg tablet 25 mcg PO DAILY disorder of 10/12/24 Unknown History thyroid gland potassium chloride 10 mEq 10 meq PO BID supplement 10/12/24 Unknown History tablet,extended release(part/cryst) (Klor-Con M) rosuvastatin 10 mg tablet 10 mg PO DAILY cholesterol 10/12/24 Unknown History apremilast 30 mg tablet (Otezla) 30 mg PO BID psoriasis 10/13/24 Unknown History famotidine 20 mg tablet (Acid 20 mg PO DAILY gerd 10/13/24 Unknown History Controller) mecobalamin (vitamin B12) 1,000 1,000 mcg PO .OD supplement 10/13/24 Unknown History mcg chewable tablet (B12 Active) vit C 250 mg-vit E 90 mg-zinc 40 1 tab PO DAILY supplement 10/13/24 Unknown History mg-copper 1 st-ggqqlo-zeneng capsule (PreserVision AREDS-2) acetaminophen 325 mg tablet 650 mg (2 x 325 mg) PO Q6H PRN PRN 10/18/24 Unknown Rx Pain 1-10 Or Fever>100.7 #0 tabs apixaban 5 mg tablet (Eliquis) 5 mg PO BID #60 tabs 10/18/24 Unknown Rx losartan 50 mg tablet 50 mg PO DAILY #60 tabs 10/18/24 Unknown Rx metoprolol tartrate 100 mg tablet 100 mg PO BID #60 tabs 10/18/24 Unknown Rx amiodarone 200 mg tablet 200 mg PO DAILY 01/06/25 Unknown History atorvastatin 20 mg tablet 20 mg PO DAILY 06/13/25 Unknown History furosemide 20 mg tablet 20 mg PO DAILY 06/13/25 Unknown History levothyroxine 75 mcg tablet 75 mcg PO DAILY 06/13/25 Unknown History metoprolol tartrate 50 mg tablet 50 mg PO BID 06/13/25 Unknown History Allergy/AdvReac Type Severity Reaction Status Date / Time amlodipine besylate (From Allergy Other Verified 06/12/25 23:24 Norvasc) bumetanide (From Bumex) Allergy Other Verified 06/12/25 23:24 cephalexin monohydrate (From Allergy Hives Verified 06/12/25 23:24 Keflex) colchicine Allergy Hives Verified 06/12/25 23:24 hydrochlorothiazide Allergy Hives Verified 06/12/25 23:24 hydrocortisone acetate (From Allergy Other Verified 06/12/25 23:24 Hydrocortone Acetate) minoxidil Allergy Other Verified 06/12/25 23:24 naproxen Allergy Rash Verified 06/12/25 23:24 ofloxacin (From Floxin) Allergy Shortness Verified 06/12/25 23:24 of breath Penicillins (PCN) Allergy Rash Verified 06/12/25 23:24 Sulfa (Sulfonamide Allergy Rash Verified 06/12/25 23:24 Antibiotics) Family History Son Diabetes CAD (coronary artery disease) Mother Diabetes Father Heart disease Hypertension Prostate cancer Surgical History History of intestinal surgery History of bladder surgery History of partial hysterectomy H/O hernia repair Hx of cholecystectomy Social History household members: none Smoking Status: Never smoker alcohol intake: never substance use type: does not use Physical Exam Const alert and no apparent distress General Appearance: cooperative HEENT normocephalic and head/scalp atraumatic Eyes PERRL and EOMs intact bilaterally Neck supple and No nodes Resp Auscultation: rales Cardio regular rate and regular rhythm GI soft to palpation, non-tender and non-distended Extremity General Extremity: Negative for edema Skin no rashes or lesions noted Neuro CN's II-XII intact bilaterally Lab / Micro Data Attestation: I reviewed the patient's lab results. 06/14/25 06:43 06/14/25 05:30 Labs: Laboratory Results - last 24 hr 06/13/25 20:38: Potassium 4.0, Phosphorus 2.5 L 06/14/25 05:30: WBC Cancelled, Corrected WBC Cancelled, RBC Cancelled, Hgb Cancelled, Hct Cancelled, MCV Cancelled, MCH Cancelled, MCHC Cancelled, RDW Std Deviation Cancelled, RDW Coeff of Akin Cancelled, Plt Count Cancelled, MPV Cancelled, Immature Gran % (Auto) Cancelled, Neut % (Auto) Cancelled, Lymph % (Auto) Cancelled, [place] % (Auto) Cancelled, Eos % (Auto) Cancelled, Baso % (Auto) Cancelled, Absolute Neuts (auto) Cancelled, Absolute Lymphs (auto) Cancelled, Total Counted Cancelled, Neutrophils % (Manual) Cancelled, Band Neutrophils % Cancelled, Lymphocytes % (Manual) Cancelled, Monocytes % (Manual) Cancelled, Eosinophils % (Manual) Cancelled, Basophils % (Manual) Cancelled, Metamyelocytes % Cancelled, Myelocytes % Cancelled, Promyelocytes % Cancelled, Blast Cells % Cancelled, Plasma Cell % (Manual) Cancelled, Other Cells % Cancelled, Nucleated RBC % Cancelled, Nucleated RBCs/100 WBC Cancelled, Differential Comment Cancelled, Diff Path Review Cancelled, Hypersegmented Neuts Cancelled, Atypical Lymphocytes Cancelled, Reactive Lymphocytes Cancelled, Smudge Cells Cancelled, Toxic Granulation Cancelled, Toxic Vacuolation Cancelled, Dohle Bodies Cancelled, Rachid Rods Cancelled, Platelet Estimate Cancelled, Plt Morphology Comment Cancelled, RBC Morphology Cancelled 06/14/25 05:30: RBC Morphology Cancelled, Polychromasia Cancelled, Hypochromasia Cancelled, Basophilic Stippling Cancelled, Anisocytosis Cancelled, Microcytosis Cancelled, Macrocytosis Cancelled, Spherocytes Cancelled, Sickle Cells Cancelled, Target Cells Cancelled, Tear Drop Cells Cancelled, Ovalocytes Cancelled, Stomatocytes Cancelled, Vasquez-Sabin Bodies Cancelled, [place] Cells Cancelled, Bite Cells Cancelled, Crenated Cell Cancelled, Acanthocytes (Spur) Cancelled, Rouleaux Cancelled, Schistocytes Cancelled, Sodium 139, Potassium 4.3, Chloride 112 H, Carbon Dioxide 17.6 L, Anion Gap 9, BUN 28 H, Creatinine 1.46 H, Estim Creat Clear Calc 27.68 L, Est GFR (MDRD) Non-Af 35 L, BUN/Creatinine Ratio 19.1, Glucose 110 H, Calcium 8.2, Phosphorus 4.1, Total Bilirubin 0.66, AST 46 H, ALT 34, Alkaline Phosphatase 84, Total Protein 6.2, Albumin 2.8 L, Globulin 3.4, Albumin/Globulin Ratio 0.8 L 06/14/25 06:43: WBC 27.5 H, RBC 3.88 L, Hgb 9.5 L, Hct 31.6 L, MCV 81.4, MCH 24.5 L, MCHC 30.1 L, RDW Std Deviation 80.2 H, RDW Coeff of Akin 28.6 H, Plt Count 160, MPV 11.3, Neut % (Auto) Not Reportable, Absolute Neuts (auto) 23.6 H, Absolute Lymphs (auto) 2.50, Total Counted 100, Neutrophils % (Manual) 83 H, Band Neutrophils % 3, Lymphocytes % (Manual) 9 L, Monocytes % (Manual) 4, Metamyelocytes % 1, Diff Path Review February, Platelet Estimate ADEQUATE, RBC Morphology NORM C+C Micro: Microbiology 06/14/25 05:30 Nasal Secretion MRSA (PCR) - Final 06/12/25 23:29 Blood Culture (Wb) - Left Forearm Blood Culture - Preliminary Streptococcus spp. 06/12/25 23:45 Blood Culture (Wb) - Right Forearm Blood Culture - Preliminary Alpha hemolytic organism 06/12/25 23:40 Urine, Clean Catch Urine Culture - Preliminary GNR lactose custom clothier 06/14/25 01:11 Urine Catheter - Begum Legionella Antigen - Final 06/14/25 01:11 Urine Catheter - Begum Streptococcus pneumoniae Antigen (M - Final 06/13/25 11:38 Blood Culture (Wb) - Left Forearm Bacteria Detection (PCR) - Final Strep not Strep pneumo
--- NOTE | 2025-06-14 13:47 | CT_ITS ---
PROCEDURE: CT ABDOMEN/PEL W ORAL CONT ONLY 06/14/2025 REASON FOR EXAM: SEPTIC SHOCK TECHNIQUE: Procedure Code: [id number] Modality: CT Procedure: ABDOMEN/PEL W ORAL CONT ONLY Noncontrast technique limits evaluation of the abdominal and pelvic viscera. Coronal and Sagittal reconstruction series were provided. One or more dose reduction techniques were used (e.g., Automated exposure control, adjustment of the mA and/or kV according to patient size, use of iterative reconstruction technique). RADIATION DOSE SUMMARY: CTDlvol: 10.43 mGy DLP: 536.93 mGycm COMPARISON: Abdominal CT 01/06/2025. FINDINGS: Lung bases: Mild cardiomegaly. Small bibasilar pleural effusions with adjacent atelectasis. Liver: No significant abnormality. Gallbladder: Contracted or surgically absent. No biliary ductal dilatation. Spleen: Surgically absent. Pancreas: Unremarkable. Adrenals: Unremarkable. Kidneys: Nonspecific bilateral moderate perinephric edema, greater on the right. No urolithiasis or hydroureteronephrosis. Hyperattenuating right renal proteinaceous or hemorrhagic cyst. Bladder: Underdistended, with mild bladder wall thickening which may reflect cystitis. Small amount of air within the urinary bladder may be related to recent catheterization. Reproductive Organs: Prior hysterectomy. Unremarkable adnexae. Bowel: Oral contrast propagates to the descending colon. No bowel obstruction. No active inflammatory process is evident. Appendix not visualized with certainty and may be surgically absent. Lymph nodes: No suspicious lymph node enlargement. Vasculature: Abdominal aorta is normal in caliber. Moderate-advanced atherosclerotic disease. Peritoneum / Retroperitoneum: No drainable ascites or free air. Musculoskeletal: No acute or aggressive osseous abnormality. Mild multilevel degenerative changes of the spine. Diffuse qualitative osteopenia. Mild generalized subcutaneous edema. CT/Abdomen/Pel W ORAL Cont Only IMPRESSION: 1. Urinary bladder wall thickening suggestive of cystitis. Prominent bilateral nonspecific perinephric edema, potentially related to pyelonephritis. No urolithiasis or hydroureteronephrosis. 2. Cardiomegaly with small bibasilar pleural effusions with adjacent atelectasi s. Reading [id number]
[2025-06-14] MEDS: Ceftriaxone 2 GM in 0.9% Normal Saline (50mL MB+) 50 ML IV (14:17)
--- NOTE | 2025-06-14 17:18 | PN.HOSP_ITS ---
Reason for Visit Chief Complaint: Confusion, fever. Subjective Subjective Patient was seen and examined today, I had infectious diseases see the patient due to her positive blood culture for strep, antibiotics were changed by infectious diseases. Patient's white blood cell count today was 27.5, creatinine appears to be stable. Objective Data Objective Data Vital Signs: Vital Signs Temp Pulse Resp BP Pulse Ox O2 Del Method O2 Flow Rate 98.7 F 82 17 148/78 H 99 Nasal Cannula 3.5 06/14/25 08:00 06/14/25 13:45 06/14/25 13:45 06/14/25 13:45 06/14/25 15:10 06/14/25 13:45 06/14/25 15:10 FiO2 4 06/14/25 08:00 Oxygen Flow Rate (L/min) 3.5 Oxygen Delivery Method Nasal Cannula Weight: 77 kg Body Mass Index (BMI) 30.0 Intake & Output: Intake and Output for Last 24 Hours 06/12/25 06/13/25 06/14/25 23:59 23:59 23:59 Intake Total 0 / 0 6727.76 / 6727.76 1617 / 1617 Output Total 965 / 1365 1800 / 1800 Balance 0 / 0 5762.76 / 5362.76 -183 / -183 Lab / Micro Data 06/14/25 06:43 06/14/25 05:30 Labs: Laboratory Results - last 24 hr 06/13/25 20:38: Potassium 4.0, Phosphorus 2.5 L 06/14/25 05:30: WBC Cancelled, Corrected WBC Cancelled, RBC Cancelled, Hgb Cancelled, Hct Cancelled, MCV Cancelled, MCH Cancelled, MCHC Cancelled, RDW Std Deviation Cancelled, RDW Coeff of Akin Cancelled, Plt Count Cancelled, MPV Cancelled, Immature Gran % (Auto) Cancelled, Neut % (Auto) Cancelled, Lymph % (Auto) Cancelled, [place] % (Auto) Cancelled, Eos % (Auto) Cancelled, Baso % (Auto) Cancelled, Absolute Neuts (auto) Cancelled, Absolute Lymphs (auto) Cancelled, Total Counted Cancelled, Neutrophils % (Manual) Cancelled, Band Neutrophils % Cancelled, Lymphocytes % (Manual) Cancelled, Monocytes % (Manual) Cancelled, Eosinophils % (Manual) Cancelled, Basophils % (Manual) Cancelled, Metamyelocytes % Cancelled, Myelocytes % Cancelled, Promyelocytes % Cancelled, Blast Cells % Cancelled, Plasma Cell % (Manual) Cancelled, Other Cells % Cancelled, Nucleated RBC % Cancelled, Nucleated RBCs/100 WBC Cancelled, Differential Comment Cancelled, Diff Path Review Cancelled, Hypersegmented Neuts Cancelled, Atypical Lymphocytes Cancelled, Reactive Lymphocytes Cancelled, Smudge Cells Cancelled, Toxic Granulation Cancelled, Toxic Vacuolation Cancelled, Dohle Bodies Cancelled, Rachid Rods Cancelled, Platelet Estimate Cancelled, Plt Morphology Comment Cancelled, RBC Morphology Cancelled 06/14/25 05:30: RBC Morphology Cancelled, Polychromasia Cancelled, Hypochromasia Cancelled, Basophilic Stippling Cancelled, Anisocytosis Cancelled, Microcytosis Cancelled, Macrocytosis Cancelled, Spherocytes Cancelled, Sickle Cells Cancelled, Target Cells Cancelled, Tear Drop Cells Cancelled, Ovalocytes Cancelled, Stomatocytes Cancelled, Vasquez-Oark Bodies Cancelled, [place] Cells Cancelled, Bite Cells Cancelled, Crenated Cell Cancelled, Acanthocytes (Spur) Cancelled, Rouleaux Cancelled, Schistocytes Cancelled, Sodium 139, Potassium 4.3, Chloride 112 H, Carbon Dioxide 17.6 L, Anion Gap 9, BUN 28 H, Creatinine 1.46 H, Estim Creat Clear Calc 27.68 L, Est GFR (MDRD) Non-Af 35 L, BUN/Creatinine Ratio 19.1, Glucose 110 H, Calcium 8.2, Phosphorus 4.1, Total Bilirubin 0.66, AST 46 H, ALT 34, Alkaline Phosphatase 84, Total Protein 6.2, A lbumin 2.8 L, Globulin 3.4, Albumin/Globulin Ratio 0.8 L 06/14/25 06:43: WBC 27.5 H, RBC 3.88 L, Hgb 9.5 L, Hct 31.6 L, MCV 81.4, MCH 24.5 L, MCHC 30.1 L, RDW Std Deviation 80.2 H, RDW Coeff of Akin 28.6 H, Plt Count 160, MPV 11.3, Neut % (Auto) Not Reportable, Absolute Neuts (auto) 23.6 H, Absolute Lymphs (auto) 2.50, Total Counted 100, Neutrophils % (Manual) 83 H, Band Neutrophils % 3, Lymphocytes % (Manual) 9 L, Monocytes % (Manual) 4, Metamyelocytes % 1, Diff Path Review May foll, Platelet Estimate ADEQUATE, RBC Morphology NORM C+C Micro: Microbiology 06/14/25 05:30 Nasal Secretion MRSA (PCR) - Final 06/12/25 23:29 Blood Culture (Wb) - Left Forearm Blood Culture - Preliminary Streptococcus spp. 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 The left ventricular ejection fraction is 55 %. Stage 1 diastolic dysfunction. The left atrium is mildly enlarged. Mild mitral valve annular calcification. Moderately severe posteriorly directed eccentric mitral valve regurgitation. Mild to moderate (1-2+) tricuspid valve insufficiency. RVSP estimated at 54 mmHg. Mild (1+) aortic valve insufficiency. The ascending aorta is mildly dilated. Recommend BROOK/cardiac MRI for further evaluation of mitral valve. Ordering Physician: Arthur Beyer Performed By: Hallie Barnett RDCS Physical Exam Narrative alert and no apparent distress General Appearance: cooperative, well kempt and well developed Orientation / Consciousness: awake, oriented to person and oriented to place HEENT normocephalic, head/scalp atraumatic and moist oral mucous membranes Eyes PERRL, EOMs intact bilaterally and conjunctivae normal Neck supple, no JVD and thyroid normal General: trachea midline Resp normal respiratory effort, no retractions, no use of accessory muscles and clear to auscultation bilaterally Auscultation: Negative for rales, rhonchi or wheezes Cardio regular rate, regular rhythm, S1 normal heart sound, S2 normal heart sound, no murmurs, no rub and no gallops Cardio Narrative: Occasional ectopic beats are noted on auscultation GI normal to inspection, nondistended, normoactive bowel sounds, soft to palpation, non-tender and non-distended Extremity no clubbing, cyanosis or edema Skin no rashes or lesions noted General Skin Exam: no breakdown Neuro CN's II-XII intact bilaterally, no focal motor deficits and no sensory deficits noted Sensorium / Orientation: awake, alert, oriented to person and oriented to place Speech: speech normal Psych affect normal Assessment & Plan Assessment/Plan (1) Streptococcal bacteremia: (2) Sepsis: PLAN: Plan 1. Septic shock secondary to urinary tract infection-continue present antibiotics, patient is off pressors at this time, antibiotics are being adjusted by infectious diseases #2 encephalopathy secondary to #1-patient's mental status has improved since admission #3 essential hypertension-patient's medications will be held at this time and she will be reevaluated tomorrow #4 paroxysmal atrial fibrillation-patient is currently in sinus rhythm with PACs #5 hypothyroidism-patient is on Synthroid #6 chronic kidney disease stage IIIb-complicates care, management, recovery, and prognosis Total clinical time spent by myself addressing the patient's medical issues, reviewing all of her data, and collaborating with patient's care team: 35 minutes Charges/Coding Visit Charges Inpatient E&M: 22487 Subs Hosp L2
--- NOTE | 2025-06-14 20:22 | PCM.HOSP.N ---
Hospitalist Note Nrsg notifies of increased work of breathing, RR 30, without increase in oxygen supply. Listing coarse bilateral upper lung sounds, BP 184/100. Reports taking Lasix daily 20mg at home, has been on hold due to electrolyte imbalances. Potassium this morning 4.3. Received oral contrast for bad/pelvis CT imaging today, taking sufficient PO fluids. Noted weight increased from 163LB on 06.13.25 up to 169LB today. Orders placed for portable CXR, furosemide 20mg IV x1 after CXR, resume 20mg furosemide PO daily starting tomorrow, 06.15.25.
--- NOTE | 2025-06-14 20:30 | RAD_ITS ---
PROCEDURE: CHEST 1 VIEW (PORTABLE) 06/14/2025 REASON FOR EXAM: INCREASED WORK OF BREATHING TECHNIQUE: Frontal view of the chest. COMPARISON: 06/13/2025 FINDINGS: Lungs/Pleura: Probable small left basilar pleural effusion/atelectasis, with underlying consolidation not excluded. Prominent pulmonary vascular congestion, and interstitial edema. No sizable pleural effusion on the right. No pneumothorax. Heart/Mediastinum: Cardiomegaly. Aortic arch calcification. Bones/Soft tissues: Degenerative changes of the spine. RAD/Chest 1 View (Portable) IMPRESSION: Cardiomegaly with prominent vascular congestion, interstitial edema, and probab le small left basilar pleural effusion/atelectasis, similar to prior exam. [id number]
[2025-06-14] MEDS: 0.9% Saline Lock 10 ML Syringe IV ×2 (21:03→21:47)
[2025-06-14] MEDS: Furosemide 20 MG/2 ML VIAL IV (21:44)
[2025-06-15] VITALS (21 sets, daily range): BP systolic 133–182; BP diastolic 67–82; PULSE 61–70; RESP 16–25; TEMP 36.2–36.9; O2SAT 93–98; BMI 30.5
[2025-06-15 03:27] LABS: Hematocrit 30.2 % (37-47); Hemoglobin 9.6 g/dL (12.0-15.0); Immature Granulocytes Count 0.220 X10^3/uL (0.0-0.0); Mean Corp Hgb Conc 31.8 g/dL (32-36); Mean Corpuscular Volume 78.4 fL (81-99); Mean Platelet Vol. 12.1 fl (6.2-12.0); NRBC Flagged by Analyzer 0.1 % (0-5); POSITIVE MORPHOLOGY YES; Platelet Count 184 K/mm3 (150-450); RBC Distribution Width CV 27.9 % (11.6-14.6); RBC Distribution Width SD 76.4 fl (35.1-43.9); Red Blood Count 3.85 M/mm3 (4.2-5.4); White Blood Count 16.8 K/mm3 (4.4-11.0)
[2025-06-15 03:30] LABS: Differential Indicated SCAN CRITERIA MET
[2025-06-15 03:44] LABS: Anion Gap 9 (5-15); BUN 24 mg/dL (4-19); BUN/Creat Ratio 20.2 RATIO (10-20); Calcium,Total 8.2 mg/dL (7.6-11.0); Carbon Dioxide 20.4 mmol/L (21.0-32.0); Chloride 109 mmol/L (98-108); Estimated Creatinine Clearance 33.96 ml/min (50-250); Glucose 154 mg/dL (70-99); Potassium 3.6 mmol/L (3.3-5.1)
[2025-06-15 04:23] LABS: Anisocytosis 1+
[2025-06-15] MEDS: 0.9% Saline Lock 10 ML Syringe IV (05:30)
[2025-06-15] MEDS: APIXABAN 5 MG TABLET PO ×2 (10:01→21:00)
[2025-06-15] MEDS: Pantoprazole Sodium 40 MG in 0.9% Normal Saline (100mL MB+) 100 ML 330 MG IV ×2 (10:10→21:00)
--- NOTE | 2025-06-15 10:18 | PCM.PN.ID ---
Physical Exam Narrative Feeling better, some chills, some cough, no abd pain. Reports some soft stools. Const alert and no apparent distress General Appearance: cooperative Resp normal air movement and clear to auscultation bilaterally Cardio regular rate and regular rhythm GI soft to palpation, non-tender and non-distended Skin no rashes or lesions noted ID ID: Route of nutrition/ use of supplements: [] Nutritional Intake: [] IV Site: [] Begum Catheter: [] Assessment & Plan Assessment/Plan (1) Septic shock: PLAN: Due to strep bacteremia and ecoli uti. Possible GI source of strep given acute onset n/v/d; CAP is also possible. Urine antigens neg. Mod/severe mitral regurg seen on echo. CT showed cystitis and possible pyelo. Overall much improved. Off pressors, fever resolved, mental status much better. Cont ceftriaxone. Reports hives with PCN and keflex, so should be low risk of cross reactivity. 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 Will follow (2) Streptococcal bacteremia: (3) UTI (urinary tract infection):
[2025-06-15] MEDS: Ceftriaxone 2 GM in 0.9% Normal Saline (50mL MB+) 50 ML IV (11:25)
--- NOTE | 2025-06-15 18:53 | PN.HOSP_ITS ---
Reason for Visit Chief Complaint: Confusion, fever. Subjective Subjective Patient was seen and examined today, she appears to be stable to transfer her to [place] [id number] for further care. She remains on antibiotics at this time, she is on 4 L of oxygen via nasal cannula. White blood cell count today was 16.8 and hemoglobin was 9.6. Objective Data Objective Data Vital Signs: Vital Signs Temp Pulse Resp BP Pulse Ox O2 Del Method O2 Flow Rate 98.1 F 62 17 161/79 H 97 Nasal Cannula 4 06/15/25 16:20 06/15/25 16:20 06/15/25 16:20 06/15/25 16:20 06/15/25 16:20 06/15/25 16:20 06/15/25 16:20 FiO2 4 06/14/25 08:00 Oxygen Flow Rate (L/min) 4 Oxygen Delivery Method Nasal Cannula Weight: 78.2 kg Body Mass Index (BMI) 30.5 Intake & Output: Intake and Output for Last 24 Hours 06/13/25 06/14/25 06/15/25 23:59 23:59 23:59 Intake Total 6727.76 / 6727.76 195 / 1956 150 / 150 Output Total 965 / 1365 2500 / 3600 2750 / 2750 Balance 5762.76 / 5362.76 -543 / -1643 -2600 / -2600 Lab / Micro Data 06/15/25 03:20 06/15/25 03:20 Labs: Laboratory Results - last 24 hr 06/15/25 03:20: WBC 16.8 H, RBC 3.85 L, Hgb 9.6 L, Hct 30.2 L, MCV 78.4 L, MCH 24.9 L, MCHC 31.8 L D, RDW Std Deviation 76.4 H, RDW Coeff of Akin 27.9 H, Plt Count 184, MPV 12.1 H, Immature Gran % (Auto) 1.300 H, Neut % (Auto) 76.9 H, L ymph % (Auto) 13.1 L, [place] % (Auto) 6.7, Eos % (Auto) 1.6, Baso % (Auto) 0.4, A bsolute Neuts (auto) 13.0 H, Absolute Lymphs (auto) 2.21, Nucleated RBC % 0.1, Anisocytosis 1+, Sodium 139, Potassium 3.6, Chloride 109 H, Carbon Dioxide 20.4 L, Anion Gap 9, BUN 24 H, Creatinine 1.19, Estim Creat Clear Calc 33.96 L, Est GFR (MDRD) Non-Af 45 L, BUN/Creatinine Ratio 20.2 H, Glucose 154 H, Calcium 8.2 Micro: Microbiology 06/12/25 23:29 Blood Culture (Wb) - Left Forearm Blood Culture - Final Streptococcus gallolyticus pas 06/12/25 23:45 Blood Culture (Wb) - Right Forearm Blood Culture - Final Alpha hemolytic organism 06/12/25 23:40 Urine, Clean Catch Urine Culture - Final Escherichia coli 06/14/25 05:30 Nasal Secretion MRSA (PCR) - Final 06/14/25 01:11 Urine Catheter - Begum Legionella Antigen - Final 06/14/25 01:11 Urine Catheter - Begum Streptococcus pneumoniae Antigen (M - Final 06/13/25 11:38 Blood Culture (Wb) - Left Forearm Bacteria Detection (PCR) - Final Strep not Strep pneumo 06/12/25 23:40 Mucosa - Nose SARS-CoV-2, Influenza & RSV (PCR) - Final Radiography Diagnostic Testing: Radiology Impression Abdomen CT 06/14/25 13:47 IMPRESSION: 1. Urinary bladder wall thickening suggestive of cystitis. Prominent bilateral nonspecific perinephric edema, potentially related to pyelonephritis. No urolithiasis or hydroureteronephrosis. 2. Cardiomegaly with small bibasilar pleural effusions with adjacent atelectasis. [id number] Chest X-Ray 06/14/25 20:30 IMPRESSION: Cardiomegaly with prominent vascular congestion, interstitial edema, and probable small left basilar pleural effusion/atelectasis, similar to prior exam. Reading Location[id number] Physical Exam Narrative alert and no apparent distress General Appearance: cooperative, well kempt and well developed Orientation / Consciousness: awake, oriented to person and oriented to place HEENT normocephalic, head/scalp atraumatic and moist oral mucous membranes Eyes PERRL, EOMs intact bilaterally and conjunctivae normal Neck supple, no JVD and thyroid normal General: trachea midline Resp normal respiratory effort, no retractions, no use of accessory muscles and clear to auscultation bilaterally Auscultation: Negative for rales, rhonchi or wheezes Cardio regular rate, regular rhythm, S1 normal heart sound, S2 normal heart sound, no murmurs, no rub and no gallops Cardio Narrative: Occasional ectopic beats are noted on auscultation GI normal to inspection, nondistended, normoactive bowel sounds, soft to palpation, non-tender and non-distended Extremity no clubbing, cyanosis or edema Skin no rashes or lesions noted General Skin Exam: no breakdown Neuro CN's II-XII intact bilaterally, no focal motor deficits and no sensory deficits noted Sensorium / Orientation: awake, alert, oriented to person and oriented to place Speech: speech normal Psych affect normal Assessment & Plan Assessment/Plan (1) Streptococcal bacteremia: (2) Sepsis: PLAN: Plan 1. Septic shock secondary to urinary tract infection with E. coli or bacteremia from strep-continue present antibiotics, patient is off pressors at this time, antibiotics are being adjusted by infectious diseases #2 encephalopathy secondary to #1-patient's mental status has improved since admission #3 essential hypertension-patient's medications will be held at this time and she will be reevaluated tomorrow #4 paroxysmal atrial fibrillation-patient is currently in sinus rhythm with PACs #5 hypothyroidism-patient is on Synthroid #6 chronic kidney disease stage IIIb-complicates care, management, recovery, and prognosis #7 bacteremia secondary to strep-the etiology of this is unknown at this time, blood cultures are being repeated, ID is participating in her care Total clinical time spent by myself addressing the patient's medical issues, reviewing all of her data, and collaborating with patient's care team: 35 minutes Charges/Coding Visit Charges Inpatient E&M: 05612 Subs Hosp L2
[2025-06-15] MEDS: Albuterol 2.5 MG/3 ML VIAL.NEB. INHALATION (21:53)
--- NOTE | 2025-06-15 21:59 | CPS ---
RN called [facility] for PRN breathing Tx for patient
[2025-06-16] VITALS (13 sets, daily range): BP systolic 152–179; BP diastolic 65–86; PULSE 58–73; RESP 16–18; TEMP 36.6–36.9; O2SAT 82–99
[2025-06-16] MEDS: Ceftriaxone 2 GM in 0.9% Normal Saline (50mL MB+) 50 ML IV (09:19)
[2025-06-16] MEDS: 0.9% Saline Lock 10 ML Syringe IV ×3 (09:22→18:46)
[2025-06-16] MEDS: APIXABAN 5 MG TABLET PO ×2 (09:22→20:43)
[2025-06-16] MEDS: 0.9% Normal Saline (250mL Bag) 250 ML 15 ML IV (09:56)
--- NOTE | 2025-06-16 12:53 | PN.ID_ITS ---
Physical Exam Narrative Feeling better, less sputum, no fever, no abd pain Const alert and no apparent distress Resp Auscultation: rales Cardio regular rate and regular rhythm GI soft to palpation, non-tender and non-distended Skin no rashes or lesions noted ID ID: Route of nutrition/ use of supplements: [] Nutritional Intake: [] IV Site: [] Begum Catheter: [] Assessment & Plan Assessment/Plan (1) Septic shock: PLAN: Due to strep bacteremia and ecoli uti. Possible GI source of strep given acute onset n/v/d; CAP is also possible. Urine antigens neg. Mod/severe mitral regurg seen on echo. CT showed cystitis and possible pyelo. Overall much improved. Off pressors, fever resolved, mental status much better. Cont ceftriaxone. Reports hives with PCN and keflex, so should be low risk of cross reactivity. Required splenectomy at [facility] due to trauma 12/2024, reports she received vaccinations afterwards. Plan for discharge with 5 days po cefdinir 300mg bid given has tolerated ceftriaxone without issue. Will follow (2) Streptococcal bacteremia: (3) UTI (urinary tract infection):
--- NOTE | 2025-06-16 13:06 | DCINST_ITS ---
Discharge Instructions DC O2, CPAP, BIPAP needs Home O2 Discharge instructions: No Dressing / Incision Discharge Activity: Return to Normal Activity Weight Bearing Status: Full weight bearing Follow Up Care Test Results: Test results from this visit will be discussed in further detail at your follow- up appointment, if applicable. Discharge Plan Admission Admit Date/Time: 06/13/25 01:19 Primary Reason for Your Visit: sepsis from a urinary tract infection and strep blood infection Attending Provider: Gareth Salazar Primary Care Provider: Atul Harvey Consulting Providers: Sofia Christianson; Arthur Beyer Discharge Orders/Prescriptions Prescriptions: New cefdinir 300 mg capsule 300 mg PO BID Qty: 10 0RF Rx Instructions: Start on 06/17/2025 Continued allopurinol 100 MG tablet 100 mg PO DAILYCM Patient Comments: gout potassium chloride [Klor-Con M10] 10 mEq tablet,ER particles/crystals 10 meq PO BID duloxetine 30 mg capsule,delayed release(DR/EC) 30 mg PO QHS folic acid 1 mg tablet 2 mg PO DAILY cholecalciferol (vitamin D3) 1,250 mcg (50,000 unit) capsule 1,250 mcg PO QWEEK rosuvastatin 10 mg tablet 10 mg PO DAILY famotidine [Acid Controller] 20 mg tablet 20 mg PO DAILY PreserVision AREDS-2 250-90-40-1 mg capsule 1 tab PO DAILY mecobalamin (vitamin B12) [B12 Active] 1,000 mcg tablet,chewable 1,000 mcg PO .OD Otezla 30 mg tablet 30 mg PO BID losartan 50 mg Tablet 50 mg PO DAILY Qty: 60 0RF acetaminophen 325 mg Tablet 650 mg PO Q6H PRN PRN (Reason: Pain 1-10 Or Fever>100.7) Qty: 0 0RF Eliquis 5 mg Tablet 5 mg PO BID Qty: 60 0RF atorvastatin 20 mg tablet 20 mg PO DAILY levothyroxine 75 mcg tablet 75 mcg PO DAILY metoprolol tartrate 50 mg tablet 50 mg PO BID furosemide 20 mg tablet 20 mg PO DAILY amiodarone 200 mg Tablet 200 mg PO DAILY Discontinued furosemide 40 MG tablet 20 mg PO DAILY Patient Comments: water pill levothyroxine 25 mcg tablet 25 mcg PO DAILY metoprolol tartrate 100 mg Tablet 100 mg PO BID Qty: 60 0RF Referrals / Follow Up: Atul Harvey DO [Primary Care Provider] - In 1 Week (Have her recheck your blood pressure and review your blood pressure medicines) Disposition Disposition (needs filled in before D/C Order can be placed): Home Health Service
--- NOTE | 2025-06-16 13:09 | CASEMGMT ---
Addendum entered by Cynthia Urrutia 06/16/25 14:20: Pt to be dc'd now tomorrow. TC to Courtney at [facility] to update. She states plan for pt to have SOC on Thursday. Green sheet on chart for home oxygen and HHC. Original Note: Plan for pt to dc today on po atb. Requested nurse do ambulatory pox. TC to [facility], left vm with Courtney that pt will be dc'd today.
--- NOTE | 2025-06-16 13:12 | DS.PCM_ITS ---
Providers Date of Admission: 06/13/25 Date of Discharge: 06/16/25 Primary Care Physician: Dr. Atul Harvey, Consultations 06/13/25 03:28 Consult: Anesthesiology Fellow / Pulmonary Medicine Routine Consulting Provider: Intensivists/Pulmonary Med Reason for Consult: sepsis EMERGENT Consult: No Notified: Yes Date Notified: 06/13/25 Time Notified: 03:29 Method of Notification: Text 06/14/25 09:05 Consult: Infectious Disease Routine Consulting Provider: Arthur Beyer Reason for Consult: Bacteremia EMERGENT Consult: No Notified: Yes Date Notified: 06/14/25 Time Notified: 09:05 Method of Notification: Text Reason For Visit: SEPSIS, UTI Diagnosis Discharge Diagnosis (1) Septic shock: Status: Acute Code(s): A41.9 - Sepsis, unspecified organism; R65.21 - Severe sepsis with septic shock (2) Streptococcal bacteremia: Status: Acute Code(s): R78.81 - Bacteremia; B95.5 - Unspecified streptococcus as the cause of diseases classified elsewhere (3) UTI (urinary tract infection): Status: Acute Code(s): N39.0 - Urinary tract infection, site not specified Plan 1. Septic shock secondary to urinary tract infection with E. coli or bacteremia from strep-continue present antibiotics, patient is off pressors at this time, antibiotics are being adjusted by infectious diseases #2 encephalopathy secondary to #1-patient's mental status has improved since admission #3 essential hypertension-patient's medications will be held at this time and she will be reevaluated tomorrow #4 paroxysmal atrial fibrillation-patient is currently in sinus rhythm with PACs #5 hypothyroidism-patient is on Synthroid #6 chronic kidney disease stage IIIb-complicates care, management, recovery, and prognosis #7 bacteremia secondary to strep-the etiology of this is unknown at this time, blood cultures are being repeated, ID is participating in her care Total clinical time spent by myself addressing the patient's medical issues, reviewing all of her data, and collaborating with patient's care team: 35 minutes Medications at Discharge Home Medications allopurinol 100 mg tablet 100 mg PO DAILYCM gout 11/12/14 cholecalciferol (vitamin D3) 1,250 mcg (50,000 unit) capsule 1,250 mcg PO QWEEK supplement 10/12/24 duloxetine 30 mg capsule,delayed release 30 mg PO QHS mood 10/12/24 folic acid 1 mg tablet 2 mg PO DAILY supplement 10/12/24 potassium chloride 10 mEq tablet,extended release(part/cryst) (Klor-Con M) 10 meq PO BID supplement 10/12/24 rosuvastatin 10 mg tablet 10 mg PO DAILY cholesterol 10/12/24 apremilast 30 mg tablet (Otezla) 30 mg PO BID psoriasis 10/13/24 famotidine 20 mg tablet (Acid Controller) 20 mg PO DAILY gerd 10/13/24 mecobalamin (vitamin B12) 1,000 mcg chewable tablet (B12 Active) 1,000 mcg PO .OD supplement 10/13/24 vit C 250 mg-vit E 90 mg-zinc 40 mg-copper 1 [id number]-wiiyxz capsule (PreserVision AREDS-2) 1 tab PO DAILY supplement 10/13/24 acetaminophen 325 mg tablet 650 mg (2 x 325 mg) PO Q6H PRN PRN Pain 1-10 Or Fever>100.7 #0 tabs 10/18/24 apixaban 5 mg tablet (Eliquis) 5 mg PO BID #60 tabs 10/18/24 losartan 50 mg tablet 50 mg PO DAILY #60 tabs 10/18/24 amiodarone 200 mg tablet 200 mg PO DAILY 01/06/25 atorvastatin 20 mg tablet 20 mg PO DAILY 06/13/25 furosemide 20 mg tablet 20 mg PO DAILY 06/13/25 levothyroxine 75 mcg tablet 75 mcg PO DAILY 06/13/25 metoprolol tartrate 50 mg tablet 50 mg PO BID 06/13/25 cefdinir 300 mg capsule 300 mg PO BID #10 caps 06/16/25 Weight / BMI Weight Weight: 78.2 kg Body Mass Index (BMI) 30.5 ABG / Lab / Microbiology Data 06/15/25 03:20 06/15/25 03:20 Microbiology: Microbiology 06/12/25 23:29 Blood Culture (Wb) - Left Forearm Blood Culture - Final Streptococcus gallolyticus pas 06/12/25 23:45 Blood Culture (Wb) - Right Forearm Blood Culture - Final Alpha hemolytic organism 06/12/25 23:40 Urine, Clean Catch Urine Culture - Final Escherichia coli 06/14/25 05:30 Nasal Secretion MRSA (PCR) - Final 06/14/25 01:11 Urine Catheter - Begum Legionella Antigen - Final 06/14/25 01:11 Urine Catheter - Begum Streptococcus pneumoniae Antigen (M - Final 06/13/25 11:38 Blood Culture (Wb) - Left Forearm Bacteria Detection (PCR) - Final Strep not Strep pneumo 06/12/25 23:40 Mucosa - Nose SARS-CoV-2, Influenza & RSV (PCR) - Final D/C Instructions Weight Bearing Status: Full weight bearing DC O2, CPAP, BIPAP Needs Home O2 Discharge instructions: No Discharge Plan Admission Admit Date/Time: 06/13/25 01:19 Primary Reason for Your Visit: sepsis from a urinary tract infection and strep blood infection Attending Provider: Gareth Salazar Primary Care Provider: Atul Harvey Consulting Providers: Sofia Christianson; Arthur Beyer Discharge Orders/Prescriptions Prescriptions: New cefdinir 300 mg capsule 300 mg PO BID Qty: 10 0RF Rx Instructions: Start on 06/17/2025 Continued allopurinol 100 MG tablet 100 mg PO DAILYCM Patient Comments: gout potassium chloride [Klor-Con M10] 10 mEq tablet,ER particles/crystals 10 meq PO BID duloxetine 30 mg capsule,delayed release(DR/EC) 30 mg PO QHS folic acid 1 mg tablet 2 mg PO DAILY cholecalciferol (vitamin D3) 1,250 mcg (50,000 unit) capsule 1,250 mcg PO QWEEK rosuvastatin 10 mg tablet 10 mg PO DAILY famotidine [Acid Controller] 20 mg tablet 20 mg PO DAILY PreserVision AREDS-2 250-90-40-1 mg capsule 1 tab PO DAILY mecobalamin (vitamin B12) [B12 Active] 1,000 mcg tablet,chewable 1,000 mcg PO .OD Otezla 30 mg tablet 30 mg PO BID losartan 50 mg Tablet 50 mg PO DAILY Qty: 60 0RF acetaminophen 325 mg Tablet 650 mg PO Q6H PRN PRN (Reason: Pain 1-10 Or Fever>100.7) Qty: 0 0RF Eliquis 5 mg Tablet 5 mg PO BID Qty: 60 0RF atorvastatin 20 mg tablet 20 mg PO DAILY levothyroxine 75 mcg tablet 75 mcg PO DAILY metoprolol tartrate 50 mg tablet 50 mg PO BID furosemide 20 mg tablet 20 mg PO DAILY amiodarone 200 mg Tablet 200 mg PO DAILY Discontinued furosemide 40 MG tablet 20 mg PO DAILY Patient Comments: water pill levothyroxine 25 mcg tablet 25 mcg PO DAILY metoprolol tartrate 100 mg Tablet 100 mg PO BID Qty: 60 0RF Referrals / Follow Up: Atul Harvey DO [Primary Care Provider] - In 1 Week (Have her recheck your blood pressure and review your blood pressure medicines) Disposition Disposition (needs filled in before D/C Order can be placed): Home Health Service
--- NOTE | 2025-06-16 14:21 | PHA.DC_ITS ---
Pharmacy [facility] Counseling Pharmacy Service has performed discharge medication reconciliation and counseling for this patient. 1. CEFDINIR 300MG PO BID X 5 DAYS The patient's discharge medication list was reviewed for discrepancies and discrepancies were resolved. The patient was counseled on the following discharge medications and changes in medications for homegoing were reviewed. The Reason for Use, instructions for use, and potential side effects were reviewed for all new medications. The patient's questions regarding all of their medications were answered. The patient was able to verbally demonstrate an understanding of their discharge medications. Medications at Discharge Home Medications allopurinol 100 mg tablet 100 mg PO DAILYCM gout 11/12/14 cholecalciferol (vitamin D3) 1,250 mcg (50,000 unit) capsule 1,250 mcg PO QWEEK supplement 10/12/24 duloxetine 30 mg capsule,delayed release 30 mg PO QHS mood 10/12/24 folic acid 1 mg tablet 2 mg PO DAILY supplement 10/12/24 potassium chloride 10 mEq tablet,extended release(part/cryst) (Klor-Con M) 10 meq PO BID supplement 10/12/24 rosuvastatin 10 mg tablet 10 mg PO DAILY cholesterol 10/12/24 apremilast 30 mg tablet (Otezla) 30 mg PO BID psoriasis 10/13/24 famotidine 20 mg tablet (Acid Controller) 20 mg PO DAILY gerd 10/13/24 mecobalamin (vitamin B12) 1,000 mcg chewable tablet (B12 Active) 1,000 mcg PO .OD supplement 10/13/24 vit C 250 mg-vit E 90 mg-zinc 40 mg-copper 1 fi-oliwoh-lnnngo capsule (PreserVision AREDS-2) 1 tab PO DAILY supplement 10/13/24 acetaminophen 325 mg tablet 650 mg (2 x 325 mg) PO Q6H PRN PRN Pain 1-10 Or Fever>100.7 #0 tabs 10/18/24 apixaban 5 mg tablet (Eliquis) 5 mg PO BID #60 tabs 10/18/24 losartan 50 mg tablet 50 mg PO DAILY #60 tabs 10/18/24 amiodarone 200 mg tablet 200 mg PO DAILY 01/06/25 atorvastatin 20 mg tablet 20 mg PO DAILY 06/13/25 furosemide 20 mg tablet 20 mg PO DAILY 06/13/25 levothyroxine 75 mcg tablet 75 mcg PO DAILY 06/13/25 metoprolol tartrate 50 mg tablet 50 mg PO BID 06/13/25 cefdinir 300 mg capsule 300 mg PO BID #10 caps 06/16/25
[2025-06-16] MEDS: Potassium Chloride Oral Tablet 20 MEQ 60 MEQ PO (15:40)
--- NOTE | 2025-06-16 17:29 | PCM.PN.HOSP ---
Reason for Visit Chief Complaint: Confusion, fever. Subjective Subjective Patient was seen and examined today, she appeared stable for discharge today, she needed 2 L of oxygen continuously and 3 L on exertion however, her last chest x-ray showed some vascular congestion-this is probably mild congestive heart failure, I have elected to give her 2 doses of IV Lasix and increase her outpatient dose of Lasix to 40 mg daily. Patient is going to be transition over to cefdinir, I stopped her Rocephin. Objective Data Objective Data Vital Signs: Vital Signs Temp Pulse Resp BP Pulse Ox O2 Del Method O2 Flow Rate 98.4 F 63 18 152/65 H 98 Nasal Cannula 2 06/16/25 14:04 06/16/25 14:31 06/16/25 14:04 06/16/25 14:04 06/16/25 14:04 06/16/25 14:04 06/16/25 14:04 FiO2 4 06/14/25 08:00 Oxygen Flow Rate (L/min) 2 Oxygen Delivery Method Nasal Cannula Weight: 78.2 kg Body Mass Index (BMI) 30.5 Intake & Output: Intake and Output for Last 24 Hours 06/14/25 06/15/25 06/16/25 23:59 23:59 23:59 Intake Total 1957 / 1957 200 / 200 171.5 / 171.5 Output Total 2500 / 3600 2750 / 2750 1250 / 1250 Balance -543 / -1643 -2550 / -2550 -1078.5 / -1078.5 Lab / Micro Data 06/15/25 03:20 06/15/25 03:20 Micro: Microbiology 06/12/25 23:29 Blood Culture (Wb) - Left Forearm Blood Culture - Final Streptococcus gallolyticus pas 06/12/25 23:45 Blood Culture (Wb) - Right Forearm Blood Culture - Final Alpha hemolytic organism 06/12/25 23:40 Urine, Clean Catch Urine Culture - Final Escherichia coli 06/14/25 05:30 Nasal Secretion MRSA (PCR) - Final 06/14/25 01:11 Urine Catheter - Begum Legionella Antigen - Final 06/14/25 01:11 Urine Catheter - Begum Streptococcus pneumoniae Antigen (M - Final 06/13/25 11:38 Blood Culture (Wb) - Left Forearm Bacteria Detection (PCR) - Final Strep not Strep pneumo 06/12/25 23:40 Mucosa - Nose SARS-CoV-2, Influenza & RSV (PCR) - Final Physical Exam Narrative alert and no apparent distress General Appearance: cooperative, well kempt and well developed Orientation / Consciousness: awake, oriented to person and oriented to place HEENT normocephalic, head/scalp atraumatic and moist oral mucous membranes Eyes PERRL, EOMs intact bilaterally and conjunctivae normal Neck supple, no JVD and thyroid normal General: trachea midline Resp normal respiratory effort, no retractions, no use of accessory muscles and clear to auscultation bilaterally Auscultation: Negative for rales, rhonchi or wheezes Cardio regular rate, regular rhythm, S1 normal heart sound, S2 normal heart sound, no murmurs, no rub and no gallops Cardio Narrative: Occasional ectopic beats are noted on auscultation GI normal to inspection, nondistended, normoactive bowel sounds, soft to palpation, non-tender and non-distended Extremity no clubbing, cyanosis or edema Skin no rashes or lesions noted General Skin Exam: no breakdown Neuro CN's II-XII intact bilaterally, no focal motor deficits and no sensory deficits noted Sensorium / Orientation: awake, alert, oriented to person and oriented to place Speech: speech normal Psych affect normal Assessment & Plan Assessment/Plan (1) Streptococcal bacteremia: (2) Septic shock: (3) UTI (urinary tract infection): PLAN: Plan 1. Septic shock secondary to urinary tract infection with E. coli or bacteremia from strep-continue present antibiotics, patient is off pressors at this time, antibiotics are being adjusted by infectious diseases #2 encephalopathy secondary to #1-patient's mental status has improved since admission #3 essential hypertension-patient remains on metoprolol and losartan #4 paroxysmal atrial fibrillation-patient is currently in sinus rhythm with PACs #5 hypothyroidism-patient is on Synthroid #6 chronic kidney disease stage IIIb-complicates care, management, recovery, and prognosis #7 bacteremia secondary to strep-the etiology of this is unknown at this time, blood cultures are being repeated, ID is participating in her care #8 mild congestive heart ndmjezh-halsf-sagm preserved ejection fraction, I will give the patient IV Lasix now and later on tonight, her outpatient Lasix dose was increased to 40 mg daily #9 hypoxia secondary to #8-patient may need to be set up with home oxygen when she is discharged-she needs 2 L continuous and 3 L with exertion. #10 moderate pulmonary hypertension-again patient's Lasix dosage will be increased as an outpatient Patient may be stable for discharge on 06/17/2023-again she may need outpatient oxygen Total clinical time spent by myself addressing the patient's medical issues, reviewing all of her data, and collaborating with patient's care team: 35 minutes Charges/Coding Visit Charges Inpatient E&M: 91134 Subs Hosp L2
[2025-06-16] MEDS: Furosemide 20 MG/2 ML VIAL IV (18:46)
[2025-06-17 01:00] VITALS: PULSE 60; RESP 16
[2025-06-17 02:00] VITALS: BP 165/65; PULSE 57; RESP 16; TEMP 36.4; O2SAT 95
[2025-06-17 06:00] VITALS: BMI 28.9
[2025-06-17] MEDS: Senna/Docusate Sodium 1 Tablet 2 TABLET PO (06:14)
[2025-06-17 09:02] VITALS: O2SAT 93
[2025-06-17 09:18] VITALS: BP 162/62; PULSE 62; RESP 16; TEMP 36.6; O2SAT 96
[2025-06-17 09:28] VITALS: O2SAT 87; O2SAT 94; O2SAT 95
[2025-06-17 09:42] VITALS: PULSE 62
[2025-06-17] MEDS: APIXABAN 5 MG TABLET PO (09:42)
--- NOTE | 2025-06-17 12:46 | PCM.DC.SUM ---
Providers Date of Admission: 06/13/25 Date of Discharge: 06/17/25 Primary Care Physician: Dr. Atul Harvey, Consultations 06/13/25 03:28 Consult: Single Needle Operator / Pulmonary Medicine Routine Consulting Provider: Intensivists/Pulmonary Med Reason for Consult: sepsis EMERGENT Consult: No Notified: Yes Date Notified: 06/13/25 Time Notified: 03:29 Method of Notification: Text 06/14/25 09:05 Consult: Infectious Disease Routine Consulting Provider: Arthur Beyer Reason for Consult: Bacteremia EMERGENT Consult: No Notified: Yes Date Notified: 06/14/25 Time Notified: 09:05 Method of Notification: Text Reason For Visit: SEPSIS, UTI Diagnosis Discharge Diagnosis (1) Streptococcal bacteremia: Status: Acute Code(s): R78.81 - Bacteremia; B95.5 - Unspecified streptococcus as the cause of diseases classified elsewhere (2) Septic shock: Status: Acute Code(s): A41.9 - Sepsis, unspecified organism; R65.21 - Severe sepsis with septic shock (3) UTI (urinary tract infection): Status: Acute Code(s): N39.0 - Urinary tract infection, site not specified Plan Patient was admitted with fever, disoriented/decrease in level of consciousness/alertness over past 24 hours before admission 1. Septic shock: Secondary to acute complicated urinary tract infection with E. coli or bacteremia from strep-patient was managed initially in ICU on pressors. Single Needle Operator consult was done. Initially on vancomycin and meropenem. ID was consulted. Blood culture showed alphahemolytic Streptococcus. Urine culture shows E. coli, ESBL negative. ID recommended discharge on 5 more days of cefdinir. Prescription was given. #2 acute encephalopathy secondary to septic shock-patient's mental status has improved since admission. Patient on baseline #3 essential hypertension-patient remains on metoprolol and losartan #4 paroxysmal atrial fibrillation-patient is currently in sinus rhythm with PACs #5 hypothyroidism-patient is on Synthroid #6 chronic kidney disease stage IIIb-complicates care, management, recovery, and prognosis. Creatinine improved from 1.44-1.19. #7 bacteremia secondary to strep: Strep probably GI source given acute onset of nausea vomiting and diarrhea. #8 mild congestive heart [id number] preserved ejection fraction, patient euvolemic at the time of discharge #9 hypoxia secondary to acute heart failure: Patient may need to be set up with home oxygen when she is discharged-she needs 2 L continuous and 3 L with exertion. Patient on 2 L of oxygen. Home oxygen qualification test done. I have reviewed the oxygen testing, and this patient qualifies for the home equipment and portability. The patient is mobile in the home and the community. #10 moderate pulmonary hypertension-again patient's Lasix dosage will be increased as an outpatient Interpretation Summary Moderate concentric left ventricular hypertrophy. The left ventricular ejection fraction is 55 %. Stage 1 diastolic dysfunction. The left atrium is mildly enlarged. Mild mitral valve annular calcification. Moderately severe posteriorly directed eccentric mitral valve regurgitation. Mild to moderate (1-2+) tricuspid valve insufficiency. RVSP estimated at 54 mmHg. Mild (1+) aortic valve insufficiency. The ascending aorta is mildly dilated. Recommend BROOK/cardiac MRI for further evaluation of mitral valve. Discharge medication reconciliation done. Discharge follow-up instructions completed. Discharge process discussed with the patient and all questions were answered to patient's satisfaction. Follow with PCP in 1 to 2 weeks Total time spent, exact 35 minutes on discharge meds reconciliation, examination, coordination of care with nurses and ancillary staff, review of imaging and blood test and discussion with the patient on follow-up instructions. Medications at Discharge Home Medications allopurinol 100 mg tablet 100 mg PO DAILYCM gout 11/12/14 cholecalciferol (vitamin D3) 1,250 mcg (50,000 unit) capsule 1,250 mcg PO QWEEK supplement 10/12/24 duloxetine 30 mg capsule,delayed release 30 mg PO QHS mood 10/12/24 folic acid 1 mg tablet 2 mg PO DAILY supplement 10/12/24 potassium chloride 10 mEq tablet,extended release(part/cryst) (Klor-Con M) 10 meq PO BID supplement 10/12/24 rosuvastatin 10 mg tablet 10 mg PO DAILY cholesterol 10/12/24 apremilast 30 mg tablet (Otezla) 30 mg PO BID psoriasis 10/13/24 famotidine 20 mg tablet (Acid Controller) 20 mg PO DAILY gerd 10/13/24 mecobalamin (vitamin B12) 1,000 mcg chewable tablet (B12 Active) 1,000 mcg PO .OD supplement 10/13/24 vit C 250 mg-vit E 90 mg-zinc 40 mg-copper 1 nb-hqvzby-zitazo capsule (PreserVision AREDS-2) 1 tab PO DAILY supplement 10/13/24 acetaminophen 325 mg tablet 650 mg (2 x 325 mg) PO Q6H PRN PRN Pain 1-10 Or Fever>100.7 #0 tabs 10/18/24 apixaban 5 mg tablet (Eliquis) 5 mg PO BID #60 tabs 10/18/24 losartan 50 mg tablet 50 mg PO DAILY #60 tabs 10/18/24 amiodarone 200 mg tablet 200 mg PO DAILY 01/06/25 atorvastatin 20 mg tablet 20 mg PO DAILY 06/13/25 levothyroxine 75 mcg tablet 75 mcg PO DAILY 06/13/25 metoprolol tartrate 50 mg tablet 50 mg PO BID 06/13/25 cefdinir 300 mg capsule 300 mg PO BID #10 caps 06/16/25 furosemide 40 mg tablet 40 mg PO DAILY #30 tabs 06/16/25 Physical Exam Narrative Seen and examined General: Alert, Oriented x3, Cooperative. BMI 28.9 kg/m? HEENT: Atraumatic, PERRLA, EOMI, Normocephalic. Oral: No Gingival or Mucosal Lesions/ Ulcerations Neck: Supple, No JVD, Negative Carotid Bruits Chest wall/Lungs: Air entry diminished in bilateral lung bases. No crepitation/rhonchi Cardiovascular: Regular rate and rhythm, Normal S1,S2, No M/G/R Abdomen: Bowel Sounds Present, Soft, Non Tender, Non-Distended : No dysuria. No renal angle tenderness. No suprapubic tenderness. Extremities: No edema, Capillary Refill Less than 3 Seconds Skin: No rashes, No breakdown Musculoskeletal: No Tenderness to Palpation of Joints or Extremities Neurological: Cranial nerves II-XII grossly intact, DTR 2+/4. No acute focal neurological deficit. Psych/Mental Status: Flat affect. Weight / BMI Weight Weight: 163 lb 5.8 oz Body Mass Index (BMI) 28.9 ABG / Lab / Microbiology Data 06/15/25 03:20 06/15/25 03:20 Microbiology: Microbiology 06/12/25 23:29 Blood Culture (Wb) - Left Forearm Blood Culture - Final Streptococcus gallolyticus pas 06/12/25 23:45 Blood Culture (Wb) - Right Forearm Blood Culture - Final Alpha hemolytic organism 06/12/25 23:40 Urine, Clean Catch Urine Culture - Final Escherichia coli 06/14/25 05:30 Nasal Secretion MRSA (PCR) - Final 06/14/25 01:11 Urine Catheter - [place] Legionella Antigen - Final 06/14/25 01:11 Urine Catheter - [place] Streptococcus pneumoniae Antigen (M - Final 06/13/25 11:38 Blood Culture (Wb) - Left Forearm Bacteria Detection (PCR) - Final Strep not Strep pneumo 06/12/25 23:40 Mucosa - Nose SARS-CoV-2, Influenza & RSV (PCR) - Final D/C Instructions Weight Bearing Status: Full weight bearing DC O2, CPAP, BIPAP Needs Home O2 Discharge instructions: No Meaningful Use Info Meaningful Use Meaningful Use Diagnoses (Choose all that apply): None applicable Discharge Plan Admission Admit Date/Time: 06/13/25 01:19 Primary Reason for Your Visit: sepsis from a urinary tract infection and strep blood infection Attending Provider: Devan Silva Primary Care Provider: Atul Harvey Consulting Providers: Sofia Christianson; Arthur Byeer; Gareth Salazar Discharge Orders/Prescriptions Prescriptions: New cefdinir 300 mg capsule 300 mg PO BID Qty: 10 0RF Rx Instructions: Start on 06/17/2025 furosemide 40 mg Tablet 40 mg PO DAILY Qty: 30 0RF Continued allopurinol 100 MG tablet 100 mg PO DAILYCM Patient Comments: gout potassium chloride [Klor-Con M10] 10 mEq tablet,ER particles/crystals 10 meq PO BID duloxetine 30 mg capsule,delayed release(DR/EC) 30 mg PO QHS folic acid 1 mg tablet 2 mg PO DAILY cholecalciferol (vitamin D3) 1,250 mcg (50,000 unit) capsule 1,250 mcg PO QWEEK rosuvastatin 10 mg tablet 10 mg PO DAILY famotidine [Acid Controller] 20 mg tablet 20 mg PO DAILY PreserVision AREDS-2 250-90-40-1 mg capsule 1 tab PO DAILY mecobalamin (vitamin B12) [B12 Active] 1,000 mcg tablet,chewable 1,000 mcg PO .OD Otezla 30 mg tablet 30 mg PO BID losartan 50 mg Tablet 50 mg PO DAILY Qty: 60 0RF acetaminophen 325 mg Tablet 650 mg PO Q6H PRN PRN (Reason: Pain 1-10 Or Fever>100.7) Qty: 0 0RF Eliquis 5 mg Tablet 5 mg PO BID Qty: 60 0RF atorvastatin 20 mg tablet 20 mg PO DAILY levothyroxine 75 mcg tablet 75 mcg PO DAILY metoprolol tartrate 50 mg tablet 50 mg PO BID amiodarone 200 mg Tablet 200 mg PO DAILY Discontinued furosemide 40 MG tablet 20 mg PO DAILY Patient Comments: water pill levothyroxine 25 mcg tablet 25 mcg PO DAILY metoprolol tartrate 100 mg Tablet 100 mg PO BID Qty: 60 0RF furosemide 20 mg tablet 20 mg PO DAILY Referrals / Follow Up: Atul Harvey DO [Primary Care Provider] - In 1 Week (Have her recheck your blood pressure and review your blood pressure medicines) Disposition Disposition (needs filled in before D/C Order can be placed): Home Health Service Charges/Coding Visit Charges Inpatient E&M: 57329 Disch Hosp >30min
== END 2025-06-17 14:30 | disposition home health service (06) | DRG 871 ==
LOC: ED 06-13 02:12 → ICU 06-13 02:16 → MS3 06-15 16:02
PROVIDERS: Internal Medicine; Admitting Provider Family Medicine; Emergency Provider Emergency Medicine; PCP Student in an Organized Health Care Education/Training Program; Visit Provider Internal Medicine
DX: A40.9 Streptococcal sepsis, unspecified (principal); G93.41 Metabolic encephalopathy; R65.21 Severe sepsis with septic shock; I50.31 Acute diastolic (congestive) heart failure; E87.20 Acidosis, unspecified; Z68.41 Body mass index [BMI] 40.0-44.9, adult; I13.0 Hypertensive heart and chronic kidney disease with heart failure and stage 1 through stage 4 chronic kidney disease, or unspecified chronic kidney disease; N17.9 Acute kidney failure, unspecified; D63.1 Anemia in chronic kidney disease; I27.20 Pulmonary hypertension, unspecified; N18.32 Chronic kidney disease, stage 3b; E03.9 Hypothyroidism, unspecified; I48.0 Paroxysmal atrial fibrillation; D50.9 Iron deficiency anemia, unspecified; E66.01 Morbid (severe) obesity due to excess calories; K21.9 Gastro-esophageal reflux disease without esophagitis; E78.5 Hyperlipidemia, unspecified; M10.9 Gout, unspecified; F41.8 Other specified anxiety disorders; E87.6 Hypokalemia; Z90.710 Acquired absence of both cervix and uterus; R09.02 Hypoxemia; Z79.01 Long term (current) use of anticoagulants; B96.20 Unspecified Escherichia coli [E. coli] as the cause of diseases classified elsewhere; Z79.899 Other long term (current) drug therapy; Z79.890 Hormone replacement therapy; Z90.49 Acquired absence of other specified parts of digestive tract
CPT/HCPCS: 36600; 70450; 71045; 74176; 80048; 80053; 80076; 81001; 82140; 82803; 83605; 83735; 83880; 84100; 84132; 84443; 85025; 85610; 85730; 87040; 87077; 87086; 87088; 87149; 87186; 87449; 87631; 87641; 93005; 93306; 94640; 94668; 94762; 97110; 97162; 97166; 97530; 97535; 97802; 99285; J2185; A4216; J0696; J1938

== ENCOUNTER → 2025-08-10 | Outpatient (CLI) | payer MEDICARE, SELFPAY ==
[2025-08-10 15:14] LABS: Hematocrit 38.9 % (37-47); Hemoglobin 12.2 g/dL (12.0-15.0); Immature Granulocytes Count 0.040 X10^3/uL (0.0-0.0); Mean Corp Hgb Conc 31.4 g/dL (32-36); Mean Corpuscular Volume 87.0 fL (81-99); Mean Platelet Vol. 12.0 fl (6.2-12.0); NRBC Flagged by Analyzer 0 % (0-5); POSITIVE MORPHOLOGY YES; Platelet Count 327 K/mm3 (150-450); RBC Distribution Width CV 21.8 % (11.6-14.6); RBC Distribution Width SD 69.0 fl (35.1-43.9); Red Blood Count 4.47 M/mm3 (4.2-5.4); White Blood Count 9.0 K/mm3 (4.4-11.0)
[2025-08-10 15:26] LABS: Differential Indicated SCAN CRITERIA MET
[2025-08-10 15:33] LABS: AST(SGOT) 38 U/L (<=31); Alanine Aminotransfer ALT/SGPT 28 U/L (<=34); Albumin, Serum 3.6 g/dL (3.4-4.8); Alkaline Phosphatase 116 U/L (35-104); Anion Gap 9 (5-15); BUN 18 mg/dL (4-19); BUN/Creat Ratio 15.7 RATIO (10-20); Calcium,Total 9.4 mg/dL (7.6-11.0); Carbon Dioxide 27.2 mmol/L (21.0-32.0); Chloride 103 mmol/L (98-108); Globulin 4.2 g/dL (2.2-4.2); Glucose 95 mg/dL (70-99); Potassium 4.1 mmol/L (3.3-5.1)
[2025-08-10 19:58] LABS: Anisocytosis 2+; Differential Comment SCANNED
[2025-08-10 19:59] LABS: Polychromasia 1+; Target Cells 1+
== END | disposition home or self-care (01) ==
LOC: MTLAB 13:44
PROVIDERS: PCP Student in an Organized Health Care Education/Training Program; Referring Provider Internal Medicine Rheumatology; Visit Provider Internal Medicine Rheumatology
DX: L40.59 Other psoriatic arthropathy (principal); Z79.899 Other long term (current) drug therapy; M79.7 Fibromyalgia
CPT/HCPCS: 36415; 80053; 85025